=== PATIENT | male | born 1955 | race Caucasian/White ===

== ENCOUNTER 2022-04-20 09:08 | Outpatient (REF) | payer OTHER, SELFPAY ==
--- NOTE | ~2022-04-20 | CT_ITS ---
EXAMINATION: CT CHEST WITH CONTRAST CLINICAL INFORMATION: Abnormal lung findings. COMPARISON: None TECHNIQUE: Multidetector volumetric CT imaging of the chest was obtained after the administration of 65 mL of Omnipaque 350 intravenous contrast without immediate adverse reactions. Axial MIP volume rendering provided. Sagittal and coronal reformatted images were obtained. This CT examination was performed using dose optimization techniques as appropriate, variously including the following: *Automated exposure control *Adjustment of mA and/or kV according to patient size (this includes techniques or standardized protocols for targeted exams where dose is matched to indication/reason for exam; i.e. 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 LUNGS: There is diffuse centrilobular emphysema with linear scarring and/or compressive atelectasis right upper lobe. There is loss of right lung volume There are 2-3 mm scattered calcifications in bilateral upper lobes. A 7 mm partially calcified nodule is seen in the right lower lobe axial image 155/6. MEDIASTINUM: The thyroid lobes are symmetrical and normal. The central trachea and the bronchi are widely patent. The heart size and the great vessels are normal caliber. There is ulcerative plaque in the distal aortic arch. No abnormal size mediastinal or hilar lymph nodes seen. Moderate coronary artery calcifications are visualized. There is no pericardial effusion. PLEURA: Mild right apical and right lower lung pleural thickening is visualized. No evidence of effusion. AXILLA: No abnormal size axillary lymph nodes seen either. UPPER ABDOMEN: The liver is diffusely hypoattenuated. No focal lesion or intrahepatic ductal dilatation seen. There are no radiopaque gallstones. The spleen is unremarkable. OSSEOUS STRUCTURES: No aggressive lytic or sclerotic process seen. There are median sternotomy sutures and mediastinal david. CT/CT chest w IV con IMPRESSION: Centrilobular emphysematous changes of both lungs with chronic right apical parenchymal scarring and/or atelectasis with right apical pleural thickening. Partially calcified 7 mm nodule in right lower lobe. Fleischner guidelines were followed.
[2022-04-20] MEDS: iohexoL 350 MG/ML 100 ML INFUS..BTL 65 ML IV (12:09)
[2022-04-21 11:26] LABS: Creatinine POC 0.5 mg/dL (0.5-1.4)
== END 2022-04-20 09:09 | disposition home or self-care (01) ==
LOC: HO.CT 09:08
PROVIDERS: Visit Provider Nurse Practitioner Family
DX: R91.8 Other nonspecific abnormal finding of lung field (principal)
CPT/HCPCS: 71260; 82565; Q9967

== ENCOUNTER → 2022-05-17 14:12 | Outpatient (BNVA) | payer OTHER, SELFPAY | PROVIDERS: PCP Nurse Practitioner Family; Visit Provider Internal Medicine Pulmonary Disease | DX: J44.9 Chronic obstructive pulmonary disease, unspecified (principal); R91.1 Solitary pulmonary nodule; Z79.899 Other long term (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 | CPT/HCPCS: 99202 ==

== ENCOUNTER 2022-12-21 16:13 | Outpatient (AMB) | payer OTHER, SELFPAY ==
[2022-12-21 16:14] VITALS: BP 108/66; PULSE 66; O2SAT 95; BMI 27.5
--- NOTE | 2022-12-21 16:14 | A.OFFPC_ITS ---
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: No Allergies No Known Allergies Allergy (Verified 12/21/22 16:25) Medication List - Last Reconciled 12/21/22 by LAKHWINDER Coker acetaminophen 650 mg (2 x 325 mg) PO Q6H PRN albuterol sulfate 90 mcg/actuation (ProAir HFA) 2 puffs inhalation Q4-6H PRN apixaban (Eliquis) 5 mg PO BID aspirin 81 mg PO DAILY atorvastatin (Lipitor) 40 mg PO QPM carvedilol 3.125 mg PO Q12H folic acid 1 mg PO DAILY furosemide 20 mg PO DAILY ipratropium-albuterol 0.5 mg-3 mg(2.5 mg base)/3 mL 3 mL inhalation Q4-6H PRN 30 days melatonin 5 mg PO BEDTIME PRN montelukast (Singulair) 10 mg PO DAILY multivitamin 1 tab PO DAILY quetiapine 150 mg PO BEDTIME sacubitril-valsartan 24-26 mg (Entresto) 1 tab PO BID spironolactone 25 mg PO DAILY thiamine HCl (vitamin B1) 100 mg PO DAILY umeclidinium-vilanterol 62.5-25 mcg/actuation (Anoro Ellipta) 1 inh inhalation DAILY Tobacco use date assessed: 12/21/22 Fall risk assessment: No Falls in past year Last assessed Fall Risk: 12/21/22 HPI F/U HTN, HLD HPI Details Patient is a 67-year-old male who presents today to follow-up on [facility] discharge.? Medical history significant for hyperlipidemia, hypertension, AFib, COPD, tobacco abuse, heart failure, mood disorder, psychosis, status post CABG x3, insomnia, stenosis of left internal carotid artery, depression, lung nodule seen on imaging study - followed by [facility].?Patient has visiting nurses from [facility].? Today patient is accompanied by his niece Clare - who is a healthcare proxy.? Patient was admitted to [facility] 11/30/2022, and discharged on 12/06/2022. Patient presented to the emergency department for shortness of breath and multiple falls in the last month. He was admitted for COPD exacerbation, heart failure exacerbation, and acute on chronic hyponatremia. Patient comes in with acute hypoxic respiratory failure in the setting of HFrEF exacerbation, COPD exacerbation and olanzapine every day all 3 causing SIADH and resulting hyponatremia. COPD was treated with steroids and DuoNebs. Heart failure exacerbation treated with diuretics. Olanzapine was stopped which contributed to SIADH. Patient was started on Seroquel 150 mg nightly with good effect, may titrate to maximum of around 300 mg nightly. Patient continues on Lasix 20 mg daily. Also suspected to have JOSE CARLOS, patient did have bradycardia to 30s overnight possibly due to JOSE CARLOS, body habitus and neck size consistent with risk for JOSE CARLOS-needs outpatient sleep study. Patient was discharged home on Chantix and nicotine patch, patient reports this medications are working and he needs refill on them. Has not been smoking for the past couple weeks. Has not been drinking alcohol in the last 6 months. Patient also was placed on fluid restriction 1 L daily for now. Family reports that patient did have nurse practitioner from [facility] and a recheck sodium which was 131 which is improving from the hospital. Patient has referral to see Cardiology, will follow-up on this. Patient also followed by [facility] due to his COPD and lung nodule. Today, patient denies shortness of breath or chest pain. Patient was encouraged to complete his blood work. [facility] Medical History Encounter to establish care TIA (transient ischemic attack) Surgical History S/P CABG x 3 Social History Housing: House Patient Tobacco Use Status: Former Tobacco user Quit Date: 12/07/22 Cigarette Packs Per Day: 1 Cigarettes Per Day: 20 Years Smoked: 53 years e-Cigarette/Vaping Use: Never Used service: No Current occupational status: retired Cognitive needs: Yes Hearing needs: No Vision needs: Yes Questionnaire Thrive Questionnaire Date Thrive assessed: 05/20/22 AUDIT C Alcohol Use Questionnaire (AUDIT-C) 1. How often do you have a drink containing alcohol?: 4 or more times a week 2. How many drinks containing alcohol do you have on a typical day when you are drinking?: 1 or 2 (pt states 1 can of beer a day ) 3. How often do you have six or more drinks on one occasion?: Never Total Score: 4 Score Reviewed/Action Taken: No GERMÁN-7 AMB Questionnaire GERMÁN-7 Date GERMÁN - 7 assessed: 05/20/22 Source: Developed by Drs. Yaakov Hogan, Lizz Zelaya, Taran Frederick and colleagues, with an educational ceasar from [employer]. Review of Systems Const Denies body aches, Denies chills, Denies fever(s) and Denies headache(s) Eyes Denies change in vision ENT Denies dizziness, Denies otalgia, Denies headache(s), Denies nasal discharge, Denies sinus pain and Denies sore throat Card Denies chest pain, Denies edema, Denies lightheadedness and Denies dyspnea Resp Denies chest congestion, Denies cough, Denies dyspnea and Denies wheezing GI Denies abdominal pain, Denies constipation, Denies diarrhea, Denies nausea and Denies vomiting Denies difficulty urinating and Denies dysuria Musc Denies myalgias, Denies numbness and Denies tingling Skin/Breast Denies lesions and Denies rash Neuro Denies dizziness, Denies headache(s), Denies numbness and Denies tingling Aller/Immun Denies wheezing Physical exam (Primary Care) Vital Signs: Last Vital Signs Pulse 66 12/21/22 16:14 BP 108/66 12/21/22 16:14 Pulse Ox 95 12/21/22 16:14 Oxygen Delivery Method Room Air 12/21/22 16:14 BMI result Body Mass Index 27.5 Tobacco/Smoking Status: Tobacco use Status Tobacco use date assessed 12/21/22 12/21/22 16:15 Patient Tobacco Use Status Former Tobacco user 12/21/22 16:23 e-Cigarette/Vaping Use Never Used 12/21/22 16:15 Thrive Assessment: Date of Thrive Assessment Date Thrive assessed 05/20/22 12/21/22 16:15 Const General: cooperative and no acute distress Orientation/consciousness: oriented to person and oriented to place HENMT Head: Yes normocephalic and Yes atraumatic Face and sinus: Yes sinuses nontender Mouth: oropharynx normal and moist mucous membranes Throat: Yes posterior oropharynx normal Eyes General: appearance normal, both eyes and all related structures Pupils: Equal, round and reactive pupils present EOM: EOMs intact bilaterally Neck Neck: Yes normal visual inspection, Yes full ROM and Yes no lymphadenopathy Resp Effort & Inspection: normal respiratory effort and able to speak in complete sentences Auscultation: clear to auscultation bilaterally, no crackles, no rales, no rhonchi and no wheezes Cardio Rate: regular rate Rhythm: regular rhythm Heart sounds: S1 normal heart sound present, S2 normal heart sound present and no murmurs GI Auscultation: normal bowel sounds Skin General skin exam: no rashes or lesions noted Neuro General: oriented to person and oriented to place Cranial nerves: Yes Equal, round and reactive pupils present Gait exam (Neuro): Normal gait present Extrem General: Yes full ROM and No edema Assessment and Plan Assessment & Plan (1) S/P CABG x 3: Code(s): Z95.1 - Presence of aortocoronary bypass graft Plan: Will follow-up on cardiology referral, patient was not seen yet (2) Psychosis: Code(s): F29 - Unspecified psychosis not due to a substance or known physiological condition Plan: Stable with Seroquel 150 mg at bedtime (3) Heart failure: Code(s): I50.9 - Heart failure, unspecified Plan: Aspirin 81 mg daily Entresto b.i.d. Lasix 20 mg daily Carvedilol b.i.d. Cardiology referral (4) Tobacco abuse: Comment: 1 ppd since age 13 Code(s): Z72.0 - Tobacco use Plan: Patient stopped smoking couple weeks ago Continue Chantix and nicotine patch (5) COPD (chronic obstructive pulmonary disease): Code(s): J44.9 - Chronic obstructive pulmonary disease, unspecified Plan: Anoro Ellipta 1 inhalation daily Albuterol inhaler every 4-6 hours p.r.n. Continue to follow-up with [facility] Dr. Escalante (6) Hypertension: Code(s): I10 - Essential (primary) hypertension Plan: Entresto b.i.d. Carvedilol b.i.d. Cardiology referral Goal BP equal or less than 140/90 (7) Hyperlipidemia: Code(s): E78.5 - Hyperlipidemia, unspecified Plan: Atorvastatin 40 mg at bedtime Low-cholesterol diet (8) Paroxysmal atrial fibrillation: Code(s): I48.0 - Paroxysmal atrial fibrillation Plan: Continue carvedilol and Eliquis Will follow-up on cardiology referral (9) Hospital discharge follow-up: Code(s): Z09 - Encounter for follow-up examination after completed treatment for conditions other than malignant neoplasm (10) SIADH (syndrome of inappropriate ADH production): Code(s): E22.2 - Syndrome of inappropriate secretion of antidiuretic hormone Plan: Patient was encouraged to complete his blood work - family reports sodium 131 after hospital discharge with [facility] [employer] Olanzapine was stopped 1 L fluid restriction Plan Follow-up in 3 months or sooner as needed Orders: Orders RT home sleep study Today I50.9 - Heart failure, unspecified, J44.9 - Chronic obstructive pulmonary disease, unspecified Medications: New nicotine 1 patch transdermal Q24H 28 ea 2RF Z72.0 - Tobacco use varenicline 1 mg PO DAILY 56 tabs 0RF Z72.0 - Tobacco use Refilled multivitamin 1 tab PO DAILY 90 tabs 0RF F39 - Unspecified mood [affective] disorder atorvastatin (Lipitor) 40 mg PO QPM 90 tabs 1RF I48.0 - Paroxysmal atrial fibrillation thiamine HCl (vitamin B1) 100 mg PO DAILY 90 tabs 0RF F39 - Unspecified mood [affective] disorder Discontinued melatonin Discontinued Reason: Patient no longer taking 5 mg PO BEDTIME PRN 90 tabs 0RF sleep G47.00 - Insomnia, unspecified spironolactone Discontinued Reason: Patient no longer taking 25 mg PO DAILY 30 tabs 0RF Coding Level of Care Code Est Pt Level 4 (28455) Diagnoses S/P CABG x 3 Z95.1 Psychosis F29 Heart failure I50.9 Tobacco abuse Z72.0 COPD (chronic obstructive pulmonary disease) J44.9 Hypertension I10 Hyperlipidemia E78.5 Paroxysmal atrial fibrillation I48.0 Hospital discharge follow-up Z09 SIADH (syndrome of inappropriate ADH production) E22.2
== END 2022-12-21 16:53 | disposition home or self-care (01) ==
PROVIDERS: Visit Provider Nurse Practitioner Family
DX: I11.0 Hypertensive heart disease with heart failure (principal); I50.9 Heart failure, unspecified; Z95.1 Presence of aortocoronary bypass graft; F29 Unspecified psychosis not due to a substance or known physiological condition; J44.9 Chronic obstructive pulmonary disease, unspecified; Z72.0 Tobacco use; E78.5 Hyperlipidemia, unspecified; I48.0 Paroxysmal atrial fibrillation; Z09 Encounter for follow-up examination after completed treatment for conditions other than malignant neoplasm; E22.2 Syndrome of inappropriate secretion of antidiuretic hormone
CPT/HCPCS: 99214

== ENCOUNTER 2023-02-02 19:32 | Inpatient (IN) | payer OTHER, SELFPAY ==
--- OUTSIDE RECORDS SUMMARY | 2023-02-02 19:38 | XMS_ITS | Continuity of Care Document ---
Author Name Unknown Organization [facility] ter Address [address] [place] [id number] Care Team Providers Care Fell Cutter Name Role Phone Not on Staff, PCP Primary Care Physician Unavail able Encounter [facility] Date(s): 10/08/22 - 10/11/[address] [id number]- Encounter Diagnosis COPD exacerbation(Final) - 10/08/22 Discharge Disposition: A-Transfer VNA/Home Health Attending Physician: Ольга English MD Admitting Physician: Serafin Garner MD Referring Physician: Not on Staff, Referring MD Allergies, Adverse Reactions, Alerts No Known Allergies Immunizations Given and Recorded Vaccine Date Status Refusal Reason tetanus/diphtheria/pertussis, acel(Tdap) 05/20/22 Recorded tetanus/diphtheria/pertussis, acel(Tdap) 10/17/19 Recorded tetanus/diphtheria/pertussis, acel(Tdap) 01/01/09 Recorded SARS-CoV-2 (COVID-19) mRNA BNT-162b2 vac 08/04/20 Recorded SARS-CoV-2 (COVID-19) mRNA BNT-162b2 vac 07/14/20 Recorded Not Given Vaccine Date Status Refusal Reason influenza virus vaccine, inactivated 07/18/20 Not Given Patient Refuses Medications albuterol-ipratropium 3 mg-0.5 mg/3 ml inhalation solution 3 mL, Inhalation, 4 times a day, # 360 mL, 0 Refills, Maintenance, 10/11/22 12:00:00 EDT, Inhalation Solution, [facility], Partial fill upon patient request if the prescription is for aschedule II opioid drug., 3 mL Inhalation 4 times a... Start Date: 10/11/22 Status: Ordered Anoro Ellipta 62.5 mcg-25 mcg/inh inhalation powder INHALE 1 PUFF DAILY Start Date: 06/20/22 Status: Ordered aspirin 81 mg oral tablet, chewable 81 mg, 1, tablet, By Mouth, Daily, # 30 tablet, Refills 3, Tot. Refills 3, Maintenance, 11/30/20 12:43:00 EDT, Route to Pharmacy Electronically, [facility], Partial fill upon patient request if the prescription is for a schedule II opioi... Start Date: 11/30/20 Status: Ordered atorvastatin 40 mg oral tablet 1 tablet = 40 mg, By Mouth, Daily, # 90 tablet, 0 Refills, Maintenance, 06/20/22 13:57:00 EST, Tablet, Partial fill upon patient request if the prescription is for a schedule II opioid drug. Start Date: 06/20/22 Status: Ordered Coreg 3.125 mg oral tablet 3.125 mg, Tablet, By Mouth, Hold for: SBP < 100 HR < 50, 10/11/22 9:00:00 EDT Start Date: 10/11/22 Stop Date: 10/11/22 Status: Completed Coreg 3.125 mg oral tablet 3.125 mg, 1, tablet, By Mouth, 2 times a day, # 60 tablet, Refills 2, Tot. Refills 2, Maintenance, 12/01/20 15:01:00 EDT, Route to Pharmacy Electronically, [facility], Partial fill uponpatient request if the prescription is for a schedu... Start Date: 12/01/20 Status: Ordered Daily Jayson oral tablet TAKE 1 TABLET BY MOUTH EVERY DAY Start Date: 06/20/22 Status: Ordered doxycycline monohydrate 100 mg oral tablet = 100 mg, By Mouth, Every 12 hours, for 2 days, # 4 tablet, 0 Refills, Acute 10/13/22 12:01:00 EDT,10/11/22 12:01:00 EDT, Tablet, [facility], Partial fill upon patient request if the prescription is for a schedule II opioid drug., 180.3... Start Date: 10/11/22 Stop Date: 10/13/22 Status: Ordered Eliquis 5 mg oral tablet TAKE 1 TABLET BY MOUTH 2 TIMES DAILY. Start Date: 06/20/22 Status: Ordered Entresto 24 mg-26 mg oral tablet 1 tablet, By Mouth, 2 times a day, # 60 tablet, 0 Refills, Maintenance, 06/20/22 13:59:00 EST, Tablet, Partial fill upon patient request if the prescription is for a schedule II opioid drug. Start Date: 06/20/22 Status: Ordered furosemide 20 mg oral tablet 20 mg, 1, tablet, By Mouth, Daily, # 90 tablet, Refills 0, Tot. Refills 0, Maintenance, 07/25/22 9:42:00 EDT, Do Not Route, Partial fill upon patient request if the prescription is for a schedule II opioid drug. Start Date: 07/25/22 Status: Ordered naloxone 4 mg/0.1 mL nasal spray = 4 mg, Nares, Both, Once, # 2 each, 2 Refills, Soft Stop, 11/06/18 21:59:38 EDT Start Date: 11/06/18 Status: Ordered olanzapine 20 mg oral tablet 1 tablet = 20 mg, By Mouth, Daily, # 30 tablet, 0 Refills, Maintenance, 11/12/20 13:22:00 EDT, Tablet, Partial fill upon patient request if the prescription is for a schedule II opioid drug. Start Date: 11/12/20 Status: Ordered pantoprazole 40 mg oral delayed release tablet 1 tablet = 40 mg, By Mouth, Daily, # 30 tablet, 0 Refills, Maintenance, 07/09/22 11:27:00 EDT, EC Tablet, 180, cm, 07/09/22 8:03:00 EDT, Height, 78.2, kg, 06/20/22 14:31:00 EST, Dry Weight Start Date: 07/09/22 Status: Ordered predniSONE 20 mg oral tablet = 40 mg, By Mouth, Daily, for 2 days, # 4 each, 0 Refills, Acute 10/13/22 12:01:00 EDT, 10/11/22 12:01:00 EDT, Tablet, [facility], Partial fill upon patient request if the prescription is for a schedule II opioid drug., 180.3, cm, ... Start Date: 10/11/22 Stop Date: 10/13/22 Status: Ordered ure-Na 15 g oral powder for reconstitution = 30 Gm, By Mouth, Daily, # 500 Gm, 0 Refills, Maintenance, 07/25/22 9:40:00 EDT, Partial fill uponpatient request if the prescription is for a schedule II opioid drug. Start Date: 07/25/22 Status: Ordered Ventolin HFA 108 mcg/inh inhalation aerosol with adapter 1 puffs, Inhalation, 4 times a day, PRN for wheezing, # 18 Gm, 0 Refills, Maintenance, 06/20/22 13:59:00 EST, Aerosol, Partial fill upon patient request if the prescription is for a schedule II opioid drug. Start Date: 06/20/22 Status: Ordered Vitamin B1 100 mg oral tablet 100 mg, 1, tablet, By Mouth, Daily, # 10 tablet, Refills 0, Maintenance, 06/20/22 14:00:00 EST, Partial fill upon patient request if the prescription is for a schedule II opioid drug. Start Date: 06/20/22 Stop Date: 06/30/22 Status: Ordered Walker; Dx Heart failure with reduced ejection fraction I50. 22 Walker; Dx Heart failure with reduced ejection fraction I50. 22, See Instructions, # 1 each, Refills 0, Tot. Refills 0, Maintenance, Walker; Dx Heart failure with reduced ejection fraction I50. 22, 07/25/22 12:15:00 EDT, Supply Start Date: 07/25/22 Status: Ordered Problem List Condition Confirmation Course Effective Dates Status H ealth Status Informant CAD (coronary artery disease) 1 Confirmed Active Hyperlipidemia Confirmed Active HTN (hypertension) Confirmed Active Mood disorder Confirmed Active Polysubstance abuse Confirmed Active COPD with emphysema Confirmed Active Tobacco use Confirmed Active 1s/p CABG Results Radiology Reports * Exam Date Time Procedure Performing Provider Status 10/08/22 1:13 PM Chest Portable Devyn Snow (Verified) Notes: (Chest Portable) Reason For Exam: COPD RESULT: Chest Portable Chest Portable Hx of Present Illness: SOB; Reason: COPD; Clinical Question(s): Pneumonia COMPARISON: 07/13/2022. FINDINGS: LINES AND TUBES: None. LUNGS AND PLEURA: Ill-defined interstitial infiltrates remain in the mid to lower right lung, with less alveolar opacity than seen on 07/13/2022. Minimal right lateral costophrenic angle blunting remains consistent with small pleural effusion. The left lung reveals slightly increased interstitial markings at the base without consolidation. Upper left lung clear. Upper lung lucency remains. No left pleural effusion. No pneumothorax. HEART, MEDIASTINUM AND ADELE: Heart is normal in size. Anterior chest surgery. Mild aortic tortuosity and calcification. Normal mediastinal and hilar contour. BONES AND SOFT TISSUES: No acute abnormality. Median sternotomy image: 2 of the upper wires are broken as before.. IMPRESSION: Mild to moderate interstitial opacity in the mid to lower right lung, moderately improved from prior but has not fully cleared. Recommend short-term follow-up to assess for complete clearing. Emphysema. WSN: [id number] Ordering Physician: Richard Arellano Dictated By: Jere Kumar MD Dictated Date/Time: 10/08/22 1:35 pm Reviewed By: Jere Kumar MD Signed By: Jere Kumar MD Signed Date/Time: 10/08/22 1:35 pm Transcribed By: GRANT Transcribed Date/Time: 10/08/22 1:32 pm Vital Signs Most recent to oldest [Reference Range]: 1 2 3 Height 180.3 cm (10/11/22 9:02 AM) 180.3 cm (10/11/22 7:47 AM) 180.3 cm (10/11/22 4:07 AM) Weight 82.0 kg (10/09/22 1:16 AM) Oxygen Saturation [94-100 %] 98 % (10/11/22 9:02 AM) 100 % (10/11/22 7:47 AM) 98 % (10/11/22 4:07 AM) Pulse Rate [55-90 bpm] 102 bpm *H* (10/11/22 9:12 AM) 102 bpm *H* (10/11/22 9:02 AM) 72 bpm (10/11/22 7:47 AM) Body Mass Index [18.5-24.99 kg/m2] 25.22 kg/m2 *H* (10/09/22 1:16 AM) Blood Pressure [90-138/55-84 mm Hg] 136/83mm Hg (10/11/22 9:12 AM) 136/83mm Hg (10/11/22 9:02 AM) 103/62mm Hg (10/11/22 7:47 AM) Respiratory Rate [16-30 br/min] 18 br/min (10/11/22 9:02 AM) 22 br/min (10/11/22 7:47 AM) 18 br/min (10/11/22 4:07 AM) Temperature [96.8-100.4 DegF] 97.5 DegF (10/11/22 9:02 AM) 97.8 DegF (10/11/22 7:47 AM) 97.6 DegF (10/11/22 4:07 AM) Liters per Minute 2 L/min (10/11/22 7:47 AM) 2 L/min (10/11/22 4:07 AM) 2 L/min (10/11/22 12:08 AM) Mode of Delivery (Oxygen) Room air (10/11/22 9:02 AM) Nasal cannula (10/11/22 7:47 AM) Nasal cannula (10/11/22 4:07 AM) Blood pressure sites Arm, left (10/11/22 9:02 AM) Arm, left (10/11/22 7:47 AM) Arm, right (10/11/22 4:07 AM) Temperature Route Oral (10/11/22 9:02 AM) Oral (10/11/22 7:47 AM) Oral (10/11/22 4:07 AM) Dry Weight 82 kg (10/09/22 1:16 AM) Social History Social History Type Response Smoking Status 10 or more cigarette s (1/2 pack or more)/day in last 30 days entered on: 11/28/20 Sex History and physical note * Devan ZARCO, Jabier: PERFORM Event Display: History and Physical Hospital Authored Date: Patient: ??BEBO MIKHAIL ? Age:??67 Years?Sex:??Male?:??1955?? Chief Complaint/Reason for Consultation pt presenting to the ED with shortness of breath worsening over a week. RA 86%, on neb in 90s. History of Present Illness Patient is a??67-year-old male with history of coronary artery disease status post??CABG in 2006, history of paroxysmal atrial fibrillation/flutter on anticoagulation with Eliquis, ischemic??cardiomyopathy with an EF of 30 to 35%, history of COPD not on home O2,??chronic hyponatremia, schizophrenia??with history of alcohol and substance abuse disorder in the past??presenting to the ED with shortness of breath??that has been ongoing for the last 1 week??and worse over the last few days.?? On arrival he was hypoxemic??and??saturating 86 to 87% on room air and placed on supplemental oxygen??withimprovement in??saturations to above 92.?? He received Solu-Medrol and DuoNeb??via EMS.?? Bedside ultrasound revealed no currently be??lines, IVC is collapsible, he received 500 mL of IV??fluid bolus??and received Combivent.?? His BNP is slightly elevated, white cell count is within normal limits hemoglobin 13.9 with hematocrit of 40.1.?? Electrolytes??revealed sodium of 133??potassium of 4.2 and bicarb of 29??and chloride of 93.?? BUN and creatinine are within normal limits. ??Patient's chest x-ray revealed moderate??interstitial opacity in the right but??lower lung??which is??noted to be improved from prior.?? He is being admitted for management of COPD exacerbation??and acute hypoxemic respiratory failure. ??His COVID-19 PCR is negative.?? He received empiric antibiotics in the ED. Review of Systems A 10 point review of systems was done and is positive for shortness of breath,??cough without sputum production,??negative for fevers, chills, nausea, vomiting, diarrhea, abdominal pain, hematemesis,hemoptysis, melena, dysuria or hematuria. ??No new numbness or weakness. ??No palpitations or syncopal episodes. ??No double vision or blurry vision. Objective Vital Signs?? Temperature: 98.4 DegF (10/08/22 12:08:00) Temperature Route: Oral (10/08/22 12:08:00) Pulse Rate: 89 bpm (10/08/22 21:02:00) Respiratory Rate: 24 br/min (10/08/22 21:02:00) Systolic Blood Pressure: 122 mm Hg (10/08/22 21:02:00) Diastolic Blood Pressure: 82 mm Hg (10/08/22 21:02:00) Blood pressure sites: Arm, left (10/08/22 21:02:00) Mean Arterial Pressure: 91 mm Hg (10/08/22 17:51:00) Pulse Pressure: 40 mm Hg (10/08/22 21:02:00) Oxygen Saturation: 98 % (10/08/22 21:02:00) Liters per Minute: 3 L/min (10/08/22 21:02:00) Mode of Delivery (Oxygen): Nasal cannula (10/08/22 21:02:00) Early Warning Score: 3 (10/08/22 21:07:36) ? Physical Exam Constitutional:??Ill-appearing male in no acute distress Mental Status: Oriented to person, place and time. Head: Normocephalic. Eyes: Pupils are equal, round and reactive to light. Extraocular muscles intact. Ear, Nose and Throat: Oropharynx clear, mucous membranes moist. Ears and nose without masses, lesions or deformities. Trachea midline. Neck: Supple, Full range of motion. Respiratory: Decreased breath sounds bilaterally with prolonged expiratory phase and wheezing. Cardiovascular: S1 S2 regular. No murmurs, rubs or gallops. Gastrointestinal: Abdomen soft, non-tender, non-distended. Normal bowel sounds. No pulsatile mass. No hepatosplenomegaly. Genitourinary: No costovertebral angle tenderness. Neurologic: Cranial nerves II-XII grossly intact. No focal neurological deficits. Flexor plantar response. Moves all extremities spontaneously. Sensation intact bilaterally. Skin: No rashes or lesions. No petechiae or purpura.?? Musculoskeletal: No cyanosis or clubbing. No gross deformities. Normal range of motion. Psychiatric: Slightly anxious??affect Assessment/Plan Diagnoses 1. ??Acute hypoxemic respiratory failure ??(J96.01) 2. ??COPD exacerbation ??(J44.1) 3. ??Mood disorder ??(F39) 4. ??Tobacco use ??(Z72.0) 5. ??CAD (coronary artery disease) ??(I25.10) ?? Assessment:??67-year-old male with history of coronary artery disease, history of prior CABG, history of ischemic cardiomyopathy with a known EF of 30 to??35%, history of COPD not on home O2, historyof??mood disorder??and chronic febrile neutropenia??with history of prior alcohol??and substance abuse??admitted for management of acute hypoxemic respiratory failure secondary to COPD exacerbation ?? Acute hypoxemic respiratory failure (J96.01):??Continue bronchodilators and management of COPD withsteroids,??Brovana, budesonide.??Wean O2 as tolerated ?? COPD exacerbation (J44.1):??Patient's??chest x-ray revealed infiltrate but??improved from prior suggestive of old infiltrate, he has no??fevers, normal white cell count, continue doxycycline for COPDexacerbation continue Solu- Medrol,??continue bronchodilators, wean O2 as tolerated. He is not??oxygen dependent at baseline ?? Mood disorder (F39):??Continue olanzapine ?? Tobacco use (Z72.0):??Counseled on tobacco use and recommended quitting, nicotine replacement therapy has been ordered ?? CAD (coronary artery disease) (I25.10):??Known history of coronary artery disease with ischemic cardiomyopathy, denies any chest pain,??continue Coreg,??aspirin??and statin.??He is also on Entresto.??Volume status is fair.??He has history of atrial fibrillation and is on anticoagulation with Eliquis ?? VTE Prophylaxis:??Anticoagulated ?VTE Prophylaxis Assessment:??VTE Prophylaxis Ordered ?? Code Status:??DNR ?Order Code Status:??Code Status Ordered ?? Ongoing Medical Necessity:??COPD exacerbation and??acute hypoxemic respiratory failure ?? Discharge Planning:??TBD based on clinical progress ?Plan of care discussed with patient and answered all questions ? Primary Contact: ?PAZ LU?Relation to Pt: Other?Cell ? Histories Allergies Allergies ?(Active and Proposed Allergies Only) NKA? (Severity: Unknown severity, Onset: Unknown) ? Past Medical History/Problem List Active Problems??(8) CAD (coronary artery disease) COPD with emphysema HTN (hypertension) Hyperlipidemia Mood disorder Polysubstance abuse Tobacco use Underweight ? Past Surgical History No surgery history documented. ? Social History Alcohol Details:??Use: Current. ??Frequency: Daily. Substance Abuse Details:??Use: Current. ??Type: Cocaine, Heroin. Tobacco Details:??Use: 10 or more cigarettes (1/2 pack or more)/day in last 30 days. ? Psychosocial History ? Family History No family history recorded. ? Travel History Travel Outside [facility]: No ?? Medications Home Medications Albuterol (Ventolin HFA 108 mcg/inh inhalation aerosol with adapter)?1?puff(s)?Inhalation?4 times a day?as needed?for wheezing Albuterol/Ipratropium (albuterol-ipratropium 3 mg-0.5 mg/3 ml inhalation solution)?3?Milliliter?Inhalation?4 times a day apixaban (Eliquis 5 mg oral tablet)?TAKE 1 TABLET BY MOUTH 2 TIMES DAILY. Aspirin (aspirin 81 mg oral tablet, chewable)?81?Milligram?1?tablet?By Mouth?Daily Atorvastatin (atorvastatin 40 mg oral tablet)?1?tab(s)?40?Milligram?By Mouth?Daily Carvedilol (Coreg 3.125 mg oral tablet)?3.125?Milligram?1?tablet?By Mouth?2 timesa day Durable Medical Equipment (Walker; Dx Heart failure with reduced ejection fraction I50. 22)?See Instructions?Walker; Dx Heart failure with reduced ejection fraction I50. 22 Furosemide (furosemide 20 mg oral tablet)?20?Milligram?1?tablet?By Mouth?Daily Multivitamin (Daily Jayson oral tablet)?TAKE 1 TABLET BY MOUTH EVERY DAY Naloxone (naloxone 4 mg/0.1 mL nasal spray)?4?Milligram?Nares, Both?Once Olanzapine (olanzapine 20 mg oral tablet)?1?tab(s)?20?Milligram?By Mouth?Daily Pantoprazole (pantoprazole 40 mg oral delayed release tablet)?1?tab(s)?40?Milligram?By Mouth?Daily sacubitril-valsartan (Entresto 24 mg-26 mg oral tablet)?1?tab(s)?By Mouth?2 times a day Thiamine (Vitamin B1 100 mg oral tablet)?100?Milligram?1?tablet?By Mouth?Daily?for 10?Days umeclidinium-vilanterol (Anoro Ellipta 62.5 mcg-25 mcg/inh inhalation powder)?INHALE 1 PUFF DAILY urea powder (ure-Na 15 g oral powder for reconstitution)?30?gram?By Mouth?Daily ? Inpatient Medications Medications (25) Active SCHEDULED: (18) Albuterol/Ipratropium Inhalation Parul 3mL (Duoneb Inhalation Solution) ??1 vials, BAND Nebulizer, 4 times a day Apixaban 5 mg Tablet (apixaban 5 mg oral tablet) ??5 mg, By Mouth, 2 times a day Arformoterol 15 mcg/2mL Inh Parul (Brovana 15mcg/2mL Inhalation Solution) ??15 mcg 2 mL, BAND Nebulizer, 2 times a day Aspirin 81 mg Chew Tablet (aspirin 81 mg oral tablet, chewable) ??81 mg, By Mouth, Daily Atorvastatin 40 mg Tablet (atorvastatin 40 mg oral tablet) ??40 mg, By Mouth, Daily Budesonide 0.5 mg/ 2 mL Inhalation Susp (budesonide 0.5 mg/2 mL inhalation suspension) ??0.5 mg 2 mL, BAND Nebulizer, 2 times a day Carvedilol 3.125 mg Tablet (Coreg 3.125 mg oral tablet) ??3.125 mg, By Mouth, 2 times a day Doxycycline 100 mg Tablet (Doxycycline Tablet) ??100 mg, By Mouth, Every 12 hours Furosemide 20 mg Tablet (furosemide 20 mg oral tablet) ??20 mg, By Mouth, Daily MethylPREDNISolone Sodium Succinate 40 mg Inj (SoluMedrol Inj) ??40 mg, IV Push Slowly, 2 times a day Multivitamin Tablet ??1 tablet, By Mouth, Daily NaCl 0.9% Flush 3ml (NaCL 0.9% Flush) ??3 mL, IV Push, Every 8 hours Nicotine 14 mg / 24 hour Patch (Nicotine Topical) ??14 mg, Topically, Daily Olanzapine 10mg Tablet (olanzapine 10 mg oral tablet) ??20 mg, By Mouth, Daily Pantoprazole 40 mg EC Tablet (pantoprazole 40 mg oral delayed release tablet) ??40 mg, By Mouth, Daily Remove Patch (Remove ??Patch) ??1 each, Topically, Daily Sacubitril-Valsartan 24 mg-26 mg Tablet (Entresto 24 mg-26 mg oral tablet) ??1 tablet, By Mouth, 2 times a day Thiamine 100 mg Tablet (Vitamin B1 100 mg oral tablet) ??100 mg, By Mouth, Daily CONTINUOUS: (0) PRN: (7) Acetaminophen 325 mg Tablet (Acetaminophen Tablet) ??650 mg, By Mouth, Every 4 hours Dextromethorphan-Guaifenesin 20 mg-200 mg/10 mL Liqu UD (Robitussin DM Liquid) ??10 mL, By Mouth, Every 4 hours Melatonin 3 mg Tablet (Melatonin Tablet) ??3 mg, By Mouth, Daily at bedtime NaCl 0.9% Flush 3ml (NaCL 0.9% Flush) ??3 mL, IV Push, Every 8 hours Polyethylene Glycol 17 Gm Powder (MiraLax Powder) ??17 Gm 1 pack/packet, By Mouth, Daily Senna 8.6 mg / Docusate 50 mg tablet (Docusate/Senna Tablet) ??1 tablet, By Mouth, 2 times a day Simethicone 80 mg Chewable Tablet (Simethicone Tablet) ??80 mg, Chew, 3 times a day ? Results Recent Labs BLOOD COUNT & DIFF WBC 9.0 k/mm3 ()?? 10/08/2022 12:13 RBC 4.14 m/mm3 (Low)?? 10/08/2022 12:13 Hgb 13.9 Gm/dL ()?? 10/08/2022 12:13 Hct 40.1 % (Low)?? 10/08/2022 12:13 MCV 96.9 femtoliters (High)?? 10/08/2022 12:13 MCH 33.6 pg ()?? 10/08/2022 12:13 MCHC 34.7 g/dL ()?? 10/08/2022 12:13 Platelet Count 228 k/mm3 ()?? 10/08/2022 12:13 RDW-SD 49.7 femtoliters (High)?? 10/08/2022 12:13 MPV 9.4 femtoliters ()?? 10/08/2022 12:13 Nucleated RBC (Automated) 0.0 #/100 WBC'S ()?? 10/08/2022 12:13 Abs. NRBC 0.0 k/mm3 ()?? 10/08/2022 12:13 Abs. Neut 5.3 k/mm3 ()?? 10/08/2022 12:13 Abs. Lymph 2.3 k/mm3 ()?? 10/08/2022 12:13 Abs. [place] 0.8 k/mm3 ()?? 10/08/2022 12:13 Abs. Eo 0.5 k/mm3 (High)?? 10/08/2022 12:13 Abs. Baso 0.1 k/mm3 ()?? 10/08/2022 12:13 Neut % 59.1 % ()?? 10/08/2022 12:13 Lymph % 25.9 % ()?? 10/08/2022 12:13 [place] % 8.5 % ()?? 10/08/2022 12:13 Eos % 5.5 % ()?? 10/08/2022 12:13 Baso % 0.7 % ()?? 10/08/2022 12:13 Imm Gran 0.3 % ()?? 10/08/2022 12:13 Abs. Imm Gran 0.0 k/mm3 ()?? 10/08/2022 12:13 ?? CARDIAC Nt-Probnp 778 pg/mL (High)?? 10/08/2022 12:13 High Sensitivity Troponin (HSTnT) 12 ng/L ()?? 10/08/2022 12:13 ?? CHEM GENERAL Sodium 133 mmol/L ()?? 10/08/2022 12:13 Potassium 4.2 mmol/L ()?? 10/08/2022 12:13 Chloride 93 mmol/L (Low)?? 10/08/2022 12:13 Bicarbonate Level 29 mmol/L ()?? 10/08/2022 12:13 Anion Gap 11 ()?? 10/08/2022 12:13 Glucose Level 136 mg/dL (High)?? 10/08/2022 12:13 BUN 10 mg/dL ()?? 10/08/2022 12:13 Creatinine-Blood 0.6 mg/dL (Low)?? 10/08/2022 12:13 Estimated GFR Creatinine 106 ML/MIN/1.73 M2 ()?? 10/08/2022 12:13 Calcium 9.5 mg/dL ()?? 10/08/2022 12:13 ?? HEME OTHER Hold Blue Top SPECIMEN DISCARDED AFTER 4 HOURS. ()?? 10/08/2022 12:13 ?? MISC. CHEMISTRY Hold Green Top SPECIMEN DISCARDED AFTER 1 WEEK ()?? 10/08/2022 12:13 ?? VIROLOGY COVID-19 by RT-PCR NEGATIVE ()?? 10/08/2022 12:25 ? Abnormal Labs ?? BLOOD COUNT & DIFF ??Abs. Eo ??0.5 k/mm3 (High) ??10/08/2022 12:13 ??Abs. Imm Gran ??0.0 k/mm3 () ??10/08/2022 12:13 ??Abs. NRBC ??0.0 k/mm3 () ??10/08/2022 12:13 ??Hct ??40.1 % (Low) ??10/08/2022 12:13 ??Imm Gran ??0.3 % () ??10/08/2022 12:13 ??MCV ??96.9 femtoliters (High) ??10/08/2022 12:13 ??Nucleated RBC (Automated) ??0.0 #/100 WBC'S () ??10/08/2022 12:13 ??RBC ??4.14 m/mm3 (Low) ??10/08/2022 12:13 ??RDW-SD ??49.7 femtoliters (High) ??10/08/2022 12:13 ? CARDIAC ??High Sensitivity Troponin (HSTnT) ??12 ng/L () ??10/08/2022 12:13 ??Nt-Probnp ??778 pg/mL (High) ??10/08/2022 12:13 ? CHEM GENERAL ??Chloride ??93 mmol/L (Low) ??10/08/2022 12:13 ??Creatinine-Blood ??0.6 mg/dL (Low) ??10/08/2022 12:13 ??Estimated GFR Creatinine ??106 ML/MIN/1.73 M2 () ??10/08/2022 12:13 ??Glucose Level ??136 mg/dL (High) ??10/08/2022 12:13 ? HEME OTHER ??Hold Blue Top ??SPECIMEN DISCARDED AFTER 4 HOURS. () ??10/08/2022 12:13 ? MISC. CHEMISTRY ??Hold Green Top ??SPECIMEN DISCARDED AFTER 1 WEEK () ??10/08/2022 12:13 ? VIROLOGY ??COVID-19 by RT-PCR ??NEGATIVE () ??10/08/2022 12:25 ? Note: Critical results are displayed in red. ? Urinalysis?? No qualifying data available. ?? Microbiology ?? COVID-19 (Novel Coronavirus), Rapid PCR?? Completed?? Source: Nasal Body Site: Nose Collected Dt/Tm: 10/08/2022 12:24 Last Updated Dt/Tm: 10/08/2022 14:18 ?QTC Calculation([place]ett): 481 ??ms P [place]: 80 ??degrees R [place]: 69 ??degrees T [place]: 46 ??degrees Atrial flutter Non-specific intra-ventricular conduction delay Nonspecific ST abnormality Abnormal ECG When compared with ECG of 14-JUL-2022 04:49, Vent. rate has increased BY ??40 BPM QT has lengthened [1] (10/08/2022 13:13 EDT Chest Portable) IMPRESSION:?? Mild to moderate interstitial opacity in the mid to lower right lung, moderately improved from prior but has not fully cleared. Recommend short-term follow-up to assess for complete clearing. Emphysema. [2] [1]??12 Lead ECG; Valencia Drummond DO 10/08/2022 12:33 EDT [2]??Chest Portable; Jere Kumar MD 10/08/2022 13:13 EDT EKG study * Event Display: EKG Authored Date: * Event Display: ECG 12-Lead Authored Date: Please click on pdf link to open report * Event Display: ECG 12-Lead Authored Date: Ventricular Rate: 88 BPM Atrial Rate: 88 BPM P-R Interval: 192 ms QRS Duration: 120 ms Q-T Interval: 398 ms QTC Calculation(Bazett): 481 ms P [place]: 80 degrees R [place]: 69 degrees T [place]: 46 degrees Atrial flutter Non-specific intra-ventricular conduction delay Nonspecific ST abnormality Abnormal ECG When compared with ECG of 14-JUL-2022 04:49, Vent. rate has increased BY 40 BPM QT has lengthened Confirmed by VALENCIA DRUMMOND MD ([id number]) on 10/08/2022 3:06:21 PM [place]: [facility]ILY [facility] Progress note * Janene Street RN: PERFORM, SIGN, VERIFY Event Display: [facility] Authored Date: Patient: MIKHAIL LAGUNAS Age: 67 years Sex: Male : 1955 Associated Diagnoses: None Author: Janene Street RN Findings Evaluation patient transferred to D/C unit around 855am.report called.. Discharge Information Case Management Discharge Plan : Case Management Discharge Plan Data 10/11/2022 9:57 EDT Discharge Level of Care at Discharge Homehealth/VNA Discharge VNA/Hospice/Home Care [facility] Service Categories #1 Alf Service Comments #1 The nurse will resume svcs, please call the agency with questions * Janene Street RN: PERFORM, SIGN, VERIFY Event Display: [facility] Authored Date: Patient: MIKHAIL LAGUNAS Age: 67 years Sex: Male : 1955 Associated Diagnoses: None Author: Janene Street RN Findings Problem Related to Alteration in Respiratory Function (new) : Alteration in Respiratory Function/new 10/10/2022 17:00 EDT Alteration in Resp Status Related to COPD Goals & Outcomes, Respiratory Pt will maintain/resume baseline physical assessment, Pt will notdevelop complications r/t mechanical ventilation, Pt will maintain adequate nutritional intake, Pt will maintain/resume normal fluid/electrolyte balance, Pt will not develop complications r/t immobility, Pt will demonstrate proper technique w/self care procedures Interventions, Respiratory Assess for and report S&S of respiratory distress, Position for comfort & optimal oxygenation, Teach the proper use of inhalers, Teach Pt/caregiver Smoking cessation education BH Goals/Interventions, Respiratory Yes Respiratory, Problem Start 10/09/2022 1:00 Reviewed Plan with, Respiratory Patient Patient Progression, Respiratory Patient progressing according to plan . Evaluation patient alert and verbal.meds and meals tolerated well.denies any pain or discomfort.nebulizer given as ordered.BP low.md aware.call powell in reach,safety maintained.will continue to monitor.. * Laura Willson: MODIFY, PERFORM Event Display: [facility] Authored Date: Patient: ??MIKHAIL LAGUNAS ? Age:??67 Years?Sex:??Male?:??1955?? Subjective Seen at bedside this morning Less wheezing, breathing easier,,??starting to feel like he is turning the corner??for the better Still short of breath with exertion No new complaints Review of Systems A full review of systems was completed and is otherwise negative except as mentioned in history of present illness. Objective ?? Physical Exam Temperature?97.5 ?(07:54) Systolic Blood Pressure?97 ?(07:54) Diastolic Blood Pressure?61 ?(07:54) Pulse?80 ?(07:54) SpO2?99 ?(07:54) Respiratory Rate?20 ?(07:54) ?? General: Alert, NAD. HEENT: Normocephalic. Respiratory: Diminished at bases, expiratory wheezes. Cardiovascular: RRR. No murmurs, rubs or gallops. Gastrointestinal: Abdomen soft, non-tender, non-distended. + bowel sounds. Neurologic: Moves all extremities spontaneously. Skin: No rashes or lesions. Extremities: No cyanosis or clubbing. No gross deformities. Normal range of motion. 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 ?? Acute hypoxemic respiratory failure (J96.01) COPD exacerbation (J44.1) Tobacco use (Z72.0) p/w: SOB, sputum production with purulence. ??Current tobacco use Home Regimen: Albuterol rescue, Anoro Ellipta, DuoNeb PRN O2 requirement:??1.5L??(no home O2 need) ?- prednisone 40 mg x 5 D, doxycycline??[day 3] ? -??pulm SHARON conley ?- duoneb QID scheduled, albuterol MDI Q2 PRN ?- titrate O2 needs to O2 sat 88-92% ?? CAD (coronary artery disease) (I25.10) HFrEF Ischemic cardiomyopathy Atrial fibrillation denies any chest pain Continue Coreg, aspirin, statin, Entresto, Eliquis ?? Mood disorder (F39):??Continue olanzapine ? CXR does reveal infiltrate but improved from prior suggestive of old infiltrate. ??No fever, no leukocytosis??to suggest active infection. ??Being covered with doxycycline anyhow given COPD exacerbation. Leukocytosis likely bumped in the setting of??prednisone ?? Code Status: No resuscitation? Diet: Regular ? DVT PPX: Eliquis? Access: PIV OMN: COPD exacerbation, pulmonary nurse evaluation.?? Anticipate discharge tomorrow ?? I spent a total of 46 minutes today reviewing the chart/medical records, speaking with the patient,formulating and discussing the treatment plan and documenting the findings and encounter. Discussed plan with patient, nursing. ?? [This note was completed via Dragon Dictation. Please do not hesitate to contact the author for clarification of any unintentional error should it be needed.] ? Note * Lashanda Mora RN: PERFORM Event Display: Discharge/Transfer Note Hospital Authored Date: [id number] Nursing Discharge Note Entered On: 10/11/2022 17:07 EDT Performed On: 10/11/2022 17:04 EDT by Lashanda Mora RN Nursing Discharge Note 2 Discharge Time : 10/11/2022 16:59 EDT Lashanda Mora RN - 10/11/2022 17:09 EDT Discharge Level of Care at Discharge : Homehealth/VNA Discharge VNA/Hospice/Home Care(v001) : [place] Patient Left Unit Via : Wheelchair Patient Accompanied Off Unit with : Other: patient refused to wait at in the room for his neice , attempted to call the neice multiple times. He was adomant she would be outside of the [facility] entrance shortly after 5pm DC Instructions Provided & Signed by Pt : Yes Patient Understands D/C Instructions : Yes Patient Instructions Discharge Signed : Yes Discharge Comments : Iv dc'd with thetip intact Did Pt have Specialty Bed or Wound Vac : No Lashanda Mora RN - 10/11/2022 17:04 EDT * Que GARCIA, Laura Werner: PERFORM Event Display: Discharge/Transfer Note Hospital Authored Date: Patient: ??MIKHAIL LAGUNAS ? Age:??67 Years?Sex:??Male?:??1955?? Patient Information Discharge Location: Primary Care Physician: Not on Staff, PCP Admit Date/Time: 10/08/22 14:20 Discharge Date:??10/11/2022 12:06 Discharge Disposition Discharge Disposition: Home with Home Health Discharge Diagnosis Acute hypoxemic respiratory failure (J96.01) COPD exacerbation (J44.1) Mood disorder (F39) Tobacco use (Z72.0) CAD (coronary artery disease) (I25.10) ?? _ Discharge Medications Albuterol (Ventolin HFA 108 mcg/inh inhalation aerosol with adapter)?1?puff(s)?Inhalation?4 times a day?as needed?for wheezing Albuterol/Ipratropium (albuterol-ipratropium 3 mg-0.5 mg/3 ml inhalation solution)?3?Milliliter?Inhalation?4 times a day apixaban (Eliquis 5 mg oral tablet)?TAKE 1 TABLET BY MOUTH 2 TIMES DAILY. Aspirin (aspirin 81 mg oral tablet, chewable)?81?Milligram?1?tablet?By Mouth?Daily Atorvastatin (atorvastatin 40 mg oral tablet)?1?tab(s)?40?Milligram?By Mouth?Daily Carvedilol (Coreg 3.125 mg oral tablet)?3.125?Milligram?1?tablet?By Mouth?2 timesa day Doxycycline (doxycycline monohydrate 100 mg oral tablet)?100?Milligram?By Mouth?Every 12 hours?for 2?Days Durable Medical Equipment (Walker; Dx Heart failure with reduced ejection fraction I50. 22)?See Instructions?Walker; Dx Heart failure with reduced ejection fraction I50. 22 Furosemide (furosemide 20 mg oral tablet)?20?Milligram?1?tablet?By Mouth?Daily Multivitamin (Daily Jayson oral tablet)?TAKE 1 TABLET BY MOUTH EVERY DAY Naloxone (naloxone 4 mg/0.1 mL nasal spray)?4?Milligram?Nares, Both?Once Olanzapine (olanzapine 20 mg oral tablet)?1?tab(s)?20?Milligram?By Mouth?Daily Pantoprazole (pantoprazole 40 mg oral delayed release tablet)?1?tab(s)?40?Milligram?By Mouth?Daily PredniSONE (predniSONE 20 mg oral tablet)?40?Milligram?By Mouth?Daily?for 2?Days sacubitril-valsartan (Entresto 24 mg-26 mg oral tablet)?1?tab(s)?By Mouth?2 times a day Thiamine (Vitamin B1 100 mg oral tablet)?100?Milligram?1?tablet?By Mouth?Daily?for 10?Days umeclidinium-vilanterol (Anoro Ellipta 62.5 mcg-25 mcg/inh inhalation powder)?INHALE 1 PUFF DAILY urea powder (ure-Na 15 g oral powder for reconstitution)?30?gram?By Mouth?Daily ? Medications Started prednisone doxycycline Medications Discontinued none Doses Changed none Allergies Allergies ?(Active and Proposed Allergies Only) NKA? (Severity: Unknown severity, Onset: Unknown) ? PCP Follow-Up/Heads-Up COPD exac does not require O2 at home Hospital Course MIKHAIL LAGUNAS is a 67 yo M with PMHx CAD s/p CABG, ischemic cardiomyopathy/HFrEF (30-35%), tobacco use disorder, COPD not on home O2, mood disorder, chronic febrile neutropenia with prior history EtOH/substance abuse who??was admitted to the hospital with acute hypoxemic respiratory failure secondary to COPD exacerbation.??Patient improved with??DuoNebs and steroid.??Evaluated by pulmonary nurse on day of discharge and did not require??any oxygen at rest or with ambulation.??He will complete 5-day course of prednisone and doxycycline. ?? 10/11/2022??VSS. Seen and examined at bedside this AM. Eager for discharge, states that??he??feels well, nearing baseline. No complaints. Tolerating diet. Denies f/c, dizziness, CP, palpitations, SOB,abdominal pain, constipation, N/V/D. ?? Objective Assessment and Plan ? . Physical Exam Temperature?97.5 ?(09:09) Systolic Blood Pressure?136 ?(09:18) Diastolic Blood Pressure?83 ?(09:18) Pulse?102 ?(09:18) SpO2?98 ?(09:09) Respiratory Rate?18 ?(09:09) ? General: Alert, NAD. HEENT: Normocephalic. Respiratory: Clear to auscultation. No wheezing, rales or rhonchi. Cardiovascular: RRR. No murmurs, rubs or gallops. Gastrointestinal: Abdomen soft, non-tender, non-distended. + bowel sounds. Neurologic: Moves all extremities spontaneously. Skin: No rashes or lesions. Extremities: No cyanosis or clubbing. No gross deformities. Normal range of motion. Psychiatric: appropriate mood and affect Pending Results Add On Lab Order ordered on 10/08/2022 Add On Lab Order ordered on 10/08/2022 B Type Natriuretic Peptide ordered on 10/08/2022 Patient Education Titles Doxycycline Oral Tablet?? Prednisone Oral Tablet?? COPD Flare-Up?? What is COPD??? Follow-Up Appointments Added Follow Up ?Time Frame ?Comments Not on Staff, PCP Patient Instructions You are admitted to the hospital for COPD exacerbation. It is very important that you quit smoking. ?? We have prescribed you a medication??called prednisone which is a steroid that will help the inflammation in the lungs. ??You have been receiving this medication while you are in the hospital. ??Please??take until the bottle is empty.?? Follow the instructions on the bottle. ?? Doxycycline is the name of an antibiotic that we have been giving you just to cover in case there is??some bacterial infection in the lungs.?? Please take as prescribed on the bottle. ?? I have also sent you a refill of your DuoNebs.?? You can use this 4 times daily as needed. ?? You did not require oxygen, your oxygen levels look good??when you were both at rest and walking around.?? You may require oxygen in the future. ?? Please follow-up with your primary care provider??in a couple of weeks. Post Discharge Care Discharge ?10/11/22 12:05:00 EDT Discharge Prescriptions ?ePrescribed, ??10/11/22 12:05:00 EDT Home Health Face to Face *Denotes mandatory yuen ?? *I certify that this patient is under my care and that I or an allowed non- physician working with me had a face to face encounter with the patient on this date:??10/11/2022 12:07 ?? *The encounter with the patient was in whole, or in part, for the following medical condition, which is the primary diagnosis(es) for home health care:??Acute hypoxemic respiratory failure (J96.01) COPD exacerbation (J44.1) Mood disorder (F39) Tobacco use (Z72.0) CAD (coronary artery disease) (I25.10) ? *Select the indications for the discipline/s that are being arranged for this patient. Nursing (select all that apply): [_] None [x] Medication management (reconciliation, teaching)?? [x] Chronic disease management?? [_] Wound care and treatment?? [x] Home safety evaluation [_] Administer SQ/IM/IV medications?? [_] Cath care?? [_] Drain care?? [_] Trach or GT care?? Other _ Occupation Therapy (select all that apply): [_] None [_] ADL Management [_] Fall prevention training [_] Energy conservation [_] Cognitive training Other _ Physical Therapy (select all that apply): [_] None [_] Functional mobility training [_] Home exercise program to strengthen [_] Increase ROM?? [_] Falls prevention training [_] Home maintenance program for chronic disease Other _ Speech Therapy (select all that apply): [_] None [_] Swallow evaluation and training [_] Speech and language training [_] Cognitive training to process, organize, and/or recall information Other _ ? *Homebound due to (select all that apply): [x] Inability to leave home without assistance/supervision [x] Inability to ambulate without assistance [_] Pain [x] Decreased strength and endurance [_] Unsteady gait [_] Severe SOB and fatigue [_] Impaired transfers [_] Inability to negotiate stairs [_] Limited weight bearing [_] Mental status change? *Physician Signature: _LAURA PERRY PA-C ?? *By signing this, I certify that I have personally evaluated the patient and agree with the findings and recommendations as documented above. ? Results Discharge Labs BLOOD COUNT & DIFF WBC 17.5 k/mm3 (High)?? 10/10/2022 07:50 RBC 4.15 m/mm3 (Low)?? 10/10/2022 07:50 Hgb 14.1 Gm/dL ()?? 10/10/2022 07:50 Hct 41.7 % ()?? 10/10/2022 07:50 MCV 100.5 femtoliters (High)?? 10/10/2022 07:50 MCH 34.0 pg ()?? 10/10/2022 07:50 MCHC 33.8 g/dL ()?? 10/10/2022 07:50 Platelet Count 224 k/mm3 ()?? 10/10/2022 07:50 RDW-SD 51.8 femtoliters (High)?? 10/10/2022 07:50 MPV 9.6 femtoliters ()?? 10/10/2022 07:50 Nucleated RBC (Automated) 0.0 #/100 WBC'S ()?? 10/10/2022 07:50 Abs. NRBC 0.0 k/mm3 ()?? 10/10/2022 07:50 Abs. Neut 10.2 k/mm3 (High)?? 10/09/2022 05:08 Abs. Lymph 0.5 k/mm3 (Low)?? 10/09/2022 05:08 Abs. [place] 0.2 k/mm3 (Low)?? 10/09/2022 05:08 Abs. Eo 0.0 k/mm3 ()?? 10/09/2022 05:08 Abs. Baso 0.0 k/mm3 ()?? 10/09/2022 05:08 Neut % 93.2 % (High)?? 10/09/2022 05:08 Lymph % 4.1 % (Low)?? 10/09/2022 05:08 [place] % 1.8 % (Low)?? 10/09/2022 05:08 Eos % 0.0 % ()?? 10/09/2022 05:08 Baso % 0.2 % ()?? 10/09/2022 05:08 Imm Gran 0.7 % ()?? 10/09/2022 05:08 Abs. Imm Gran 0.1 k/mm3 ()?? 10/09/2022 05:08 ?? CARDIAC Nt-Probnp 778 pg/mL (High)?? 10/08/2022 12:13 High Sensitivity Troponin (HSTnT) 12 ng/L ()?? 10/08/2022 12:13 ?? CHEM GENERAL Sodium 136 mmol/L ()?? 10/10/2022 07:50 Potassium 4.3 mmol/L ()?? 10/10/2022 07:50 Chloride 96 mmol/L (Low)?? 10/10/2022 07:50 Bicarbonate Level 30 mmol/L (High)?? 10/10/2022 07:50 Anion Gap 10 ()?? 10/10/2022 07:50 Glucose Level 136 mg/dL (High)?? 10/08/2022 12:13 BUN 19 mg/dL ()?? 10/10/2022 07:50 Creatinine-Blood 0.6 mg/dL (Low)?? 10/10/2022 07:50 Estimated GFR Creatinine 105 ML/MIN/1.73 M2 ()?? 10/10/2022 07:50 Calcium 9.5 mg/dL ()?? 10/08/2022 12:13 ?? HEME OTHER Hold Blue Top SPECIMEN DISCARDED AFTER 4 HOURS. ()?? 10/08/2022 12:13 ? MISC. CHEMISTRY Hold Green Top SPECIMEN DISCARDED AFTER 1 WEEK ()?? 10/08/2022 12:13 ? URINE OTHER Est Creatinine Clearance 127.18 mL/min ()?? 10/09/2022 01:47 ? VIROLOGY COVID-19 by RT-PCR NEGATIVE ()?? 10/08/2022 12:25 COVID-19 PCR Specimen Source NASAL ()?? 10/10/2022 11:00 COVID-19 PCR Result NEGATIVE ()?? 10/10/2022 11:00 ? 35??minutes spent on discharge * Lashanda Mora RN: PERFORM Event Display: Patient Education/Instruction Authored Date: [id number] Inpatient Adult Discharge Instructions [address] [address] Name: MIKHAIL LAGUNAS : 1955 Visit: 10/08/2022 14:20:00 Current Date: 10/11/2022 16:11 Account: [id number] Inpatient Adult Discharge Instructions We would like to thank you for allowing us to assist you with your healthcare needs. The following includes patient education materials and information regarding your injury/illness. Our entire staffstrives to provide an excellent experience for our patients and their families. PLEASE ENSURE YOU FOLLOW-UP PER THE INSTRUCTIONS BELOW! ?? YOUR OPINION IS IMPORTANT TO US! Please complete the survey you may receive by mail or email. Your feedback will be used to make improvements to the healthcare experiences of our patients and their families. Surveys are administered by [employer] ?? If further treatment with your primary care physician or another doctor is recommended, it is important for you to keep the appointment. Call your primary care physician or return to the Emergency Department immediately if your condition worsens, fails to improve, or new symptoms develop. If you need to find a doctor, you can call [facility] [employer] for a referral at [phone] or toll free at [phone] LabEHYWFO ([phone]) or log in to [email or web address].. ?? You can view and manage your care through the patient portal or by using a health care suzanne of your choosing. [employer] is a website that allows you to securely view your medical information including your hospital discharge summary, office visit summaries, medications and follow-up visits. You can also request appointments, renew medications, and request access to your medical information using a health care suzanne of your choosing, or just ask a question. You can enroll at [email or web address] or register during your next office visit. You have been discharged from [facility], Patient Care Unit: S3. If you have any questions regarding these instructions after you leave, please call us and we will be happy to assist you. [facility] Your Care Team Attending Physician Tameka ZARCO, Ольга Corado Discharging Providers Laura Willson Reason for Admission pt presenting to the ED with shortness of breath worsening over a week. RA 86%, on neb in 90s. Your Diagnosis COPD exacerbation Acute hypoxemic respiratory failure Mood disorder Tobacco use CAD (coronary artery disease) Tests Performed Below is a partial list of the tests performed during your hospitalization. You may have had other tests and procedures not included in this list. Please discuss all test results with your provider. Basic Metabolic Panel BUN CBC CBC w/ Differential COVID-19 (2019 Novel Coronavirus) PCR COVID-19 (Novel Coronavirus), Rapid PCR Creatinine Electrolytes High Sensitivity Troponin T HOLD BLUE TUBE HOLD GREEN TUBE Lytes PROBNP XR Chest Portable Primary Care Provider Not on Staff, PCP Advance Directive Health Care Proxy on File Yes - Health Care Proxy Discharge Vitals Temperature: 97.5 DegF Height: 180.3 cm Pulse Rate:??102 bpm??High Weight: 82 kg Respiratory Rate: 18 br/min Body Mass Index:??25.22 kg/m2??High Systolic Blood Pressure: 136 mm Hg Body surface area: 2.03 Diastolic Blood Pressure: 83 mm Hg ?? Oxygen Saturation: 98 % ?? Studies Pending All tests and labs ordered during this hospital stay have been completed unless listed below. Please discuss all pending results with your provider listed above in these instructions. ?? Add On Lab Order B Type Natriuretic Peptide (ProBNP) What to do next Instructions From Your Doctor You are admitted to the hospital for COPD exacerbation. It is very important that you quit smoking. ?? We have prescribed you a medication??called prednisone which is a steroid that will help the inflammation in the lungs. ??You have been receiving this medication while you are in the hospital. ??Please??take until the bottle is empty.?? Follow the instructions on the bottle. ?? Doxycycline is the name of an antibiotic that we have been giving you just to cover in case there is??some bacterial infection in the lungs.?? Please take as prescribed on the bottle. ?? I have also sent you a refill of your DuoNebs.?? You can use this 4 times daily as needed. ?? You did not require oxygen, your oxygen levels look good??when you were both at rest and walking around.?? You may require oxygen in the future. ?? Please follow-up with your primary care provider??in a couple of weeks. Discharge Orders You Need to Schedule the Following Appointments Follow Up with??Not on Staff, PCP Discharge Medications MIKHAIL LAGUNAS :1955 Visit Date:10/08/2022 Medications: Please continue your medications until treatment is completed or stopped by your provider. Medications not listed below should be discontinued. Discuss any questions related to medications with your provider. What How Much When Instructions Next Dose New Doxycycline (doxycycline monohydrate 100 mg oral tablet) 100 Milligram Oral Every 12 hours Duration: 2 Days Pickup at [place] [address] 10/11 PM New PredniSONE (predniSONE 20 mg oral tablet) 40 Milligram Oral Daily Duration: 2 Days Pickup at [place] [address] 10/12 AM Changed Albuterol/ Ipratropium (albuterol-ipratropium 3 mg-0.5 mg/ 3 ml inhalation solution) 3 Milliliter Inhalation 4 times a day Pickup at [place] [address] 10/11 5pm Unchanged Albuterol (Ventolin HFA 108 mcg/ inh inhalation aerosol with adapter) 1 puff(s) Inhalation 4 times a day as needed for for wheezing as needed Unchanged apixaban (Eliquis 5 mg oral tablet) TAKE 1 TABLET BY MOUTH 2 TIMES DAILY. ?? 10/11 PM Unchanged Aspirin (aspirin 81 mg oral tablet, chewable) 1 tab(s) Oral Daily 10/12 AM Unchanged Atorvastatin (atorvastatin 40 mg oral tablet) 1 tab(s) Oral Daily 10/12 AM Unchanged Carvedilol (Coreg 3.125 mg oral tablet) 1 tab(s) Oral Twice a day 10/11 PM Unchanged Durable Medical Equipment (Walker; Dx Heart failure with reduced ejection fraction I50. 22) See instructions Walker; Dx Heart failure with reduced ejection fraction I50. 22 ?? Unchanged Furosemide (furosemide 20 mg oral tablet) 1 tab(s) Oral Daily 10/12 AM Unchanged Multivitamin (Daily Jayson oral tablet) TAKE 1 TABLET BY MOUTH EVERY DAY ?? 10/12 AM Unchanged Naloxone (naloxone 4 mg/ 0.1 mL nasal spray) 4 Milligram Nares, Both Once emergencies Unchanged Olanzapine (olanzapine 20 mg oral tablet) 1 tab(s) Oral Daily 10/11 bedtime Unchanged Pantoprazole (pantoprazole 40 mg oral delayed release tablet) 1 tab(s) Oral Daily 10/12 AM Unchanged sacubitril-valsartan (Entresto 24 mg-26 mg oral tablet) 1 tab(s) Oral Twice a day 10/11 PM Unchanged Thiamine (Vitamin B1 100 mg oral tablet) 1 tab(s) Oral Daily Duration: 10 Days 10/12 AM Unchanged umeclidinium-vilanterol (Anoro Ellipta 62.5 mcg-25 mcg/ inh inhalation powder) INHALE 1 PUFF DAILY ?? 10/12 AM Unchanged urea powder (ure-Na 15 g oral powder for reconstitution) 30 gram Oral Daily 10/12 AM Pharmacy Information [facility]: [address], [place] [id number] [phone] Test Results Below is a partial list of the most recent Laboratory test results done prior to this discharge. You may have had other tests and procedures not included in this list. Please discuss all test resultswith your provider. Est Creatinine Clearance - 127.18 mL/min (10/09/2022) Basic Metabolic Panel (10/08/2022) ???Sodium - 133 mmol/L???Potassium - 4.2 mmol/L???Chloride - 93 mmol/L???Bicarbonate Level - 29 mmol/L???Anion Gap - 11???Glucose Level - 136 mg/dL???BUN - 10 mg/dL???Creatinine-Blood - 0.6 mg/dL???Estimated GFR Creatinine - 106 ML/MIN/1.73 M2???Calcium - 9.5 mg/dL BUN (10/10/2022) ???BUN - 19 mg/dL CBC (10/10/2022) ???WBC - 17.5 k/mm3???RBC - 4.15 m/mm3???Hgb - 14.1 Gm/dL???Hct - 41.7 %???MCV - 100.5 femtoliters???MCH - 34.0 pg???MCHC - 33.8 g/dL???Platelet Count - 224 k/mm3???RDW-SD - 51.8 femtoliters???MPV - 9.6 femtoliters???Nucleated RBC (Automated) - 0.0 #/100 WBC'S???Abs. NRBC - 0.0 k/mm3 CBC w/ Differential (10/09/2022) ???WBC - 11.0 k/mm3???RBC - 3.94 m/mm3???Hgb - 13.1 Gm/dL???Hct - 38.3 %???MCV - 97.2 femtoliters???MCH - 33.2 pg???MCHC - 34.2 g/dL???Platelet Count - 186 k/mm3???RDW-SD - 49.5 femtoliters???MPV - 9.2 femtoliters???Nucleated RBC (Automated) - 0.0 #/100 WBC'S???Abs. NRBC - 0.0 k/mm3???Abs. Neut - 10.2 k/mm3???Abs. Lymph - 0.5 k/mm3???Abs. [place] - 0.2 k/mm3???Abs. Eo - 0.0 k/mm3???Abs. Baso - 0.0 k/mm3???Neut % - 93.2 %???Lymph % - 4.1 %???[place] % - 1.8 %???Eos % - 0.0 %???Baso % - 0.2 %???Imm Gran - 0.7 %???Abs. Imm Gran - 0.1 k/mm3 COVID-19 (2019 Novel Coronavirus) PCR (10/10/2022) ???COVID-19 PCR Specimen Source - NASAL???COVID-19 PCR Result - NEGATIVE COVID-19 (Novel Coronavirus), Rapid PCR (10/08/2022) ???COVID-19 by RT-PCR - NEGATIVE Creatinine (10/10/2022) ???Creatinine-Blood - 0.6 mg/dL???Estimated GFR Creatinine - 105 ML/MIN/1.73 M2 Electrolytes (10/09/2022) ???Sodium - 134 mmol/L???Potassium - 4.2 mmol/L???Chloride - 96 mmol/L???Bicarbonate Level - 27 mmol/L???Anion Gap - 11 High Sensitivity Troponin T (10/08/2022) ???High Sensitivity Troponin (HSTnT) - 12 ng/L HOLD BLUE TUBE (10/08/2022) ???Hold Blue Top - SPECIMEN DISCARDED AFTER 4 HOURS. HOLD GREEN TUBE (10/08/2022) ???Hold Green Top - SPECIMEN DISCARDED AFTER 1 WEEK L[place] (10/10/2022) ???Sodium - 136 mmol/L???Potassium - 4.3 mmol/L???Chloride - 96 mmol/L???Bicarbonate Level - 30 mmol/L???Anion Gap - 10 PROBNP (10/08/2022) ???Nt-Probnp - 778 pg/mL Allergies (NKA means No Known Allergies) NKA Problems Active Problems??(7) CAD (coronary artery disease)?? COPD with emphysema?? HTN (hypertension)?? Hyperlipidemia?? Mood disorder?? Polysubstance abuse?? Tobacco use?? Education Materials Below is the list of Educational Leaflet Providered with your Discharge Instructions. Doxycycline Oral Tablet?? Prednisone Oral Tablet?? COPD Flare-Up?? What is COPD??? Valuables and Belongings I fully understand and agree that [facility] accepts no responsibility for all my personal property including clothing, toilet articles, radios, jewelry, dentures, hearing aids, rings, money, or any other property that is in my possession or is brought to me after admission. I understand certain valuables may be placed in a hospital safe for a short period of time. I understand that the hospital is not liable for loss or damage due to accident, fire, or other natural occurrence while said property is in the safe. I accept full responsibility for any personal property that I keep with me, and will not hold the hospital responsible in case of loss or disappearance. I acknowledge that i have been encouraged to send valuables and belongings home. ?? No Valuables/Belongings: No valuables/belongings present Review of Valuable and Belonging List: With patient Date for Pt to Sign Valuables/Belongings: 10/11/22 09:02:00 ?? Other Discharge Information ? Case Management Discharge Plan?? Discharge Plan?? Discharge Agency Information?? Discharge Level of Care at Discharge: Homehealth/VNA Service Categories #1: Alf Discharge VNA/Hospice/Home Care: [facility] Services Service Comments #1: The nurse will resume svcs, please call the agency with questions ?? Pulmonary Rehab Status?? Pulmonary Rehab Discharge Status?? Respiratory Rate: 18 br/min ? Common Emergency Awareness Tips IS IT A STROKE? Act FAST and Check for these signs: FACE Does the face look uneven? ARM Does one arm drift down? SPEECH Does their speech sound strange? TIME Call at any sign of stroke ?? Heart Attack Signs Chest discomfort: Most heart attacks involve discomfort in the center of the chest and lasts more than a few minutes, or goes away and comes back. It can feel like uncomfortable pressure, squeezing, fullness or pain. Discomfort in upper body: Symptoms can include pain or discomfort in one or both arms, back, neck, jaw or stomach. Shortness of breath: With or without discomfort. Other signs: Breaking out in a cold sweat, nausea, or lightheaded. Remember, MINUTES DO MATTER. If you experience any of these heart attack warning signs, call to get immediate medical attention! ?? Smoking can increase your chances of developing chronic health problems and can cause harmful effects to other family members in your house. If you smoke, you are strongly encouraged to quit. Please call [facility] [employer] [facility] at [phone] or [phone]) or log in to [email or web address] for referrals to smoking cessation programs. ?? 096 Suicide & Crisis Lifeline is available 14/11 if you or someone you know needs to find a reason to keep living. By calling 937 you'll be connected to a skilled, trained counselor at a crisis center in your area. INPATIENT DISCHARGE INSTRUCTIONS SIGNATURE MARY ELLEN BEBOCARLOS MANUELIN Location:[facility] Registration Date and Time:10/08/2022 14:20 EDT Primary Care Physician: Not on Staff, PCP Attending Physician: Tameka ZARCO, Ольга Corado, MIKHAIL LANG, have received the above patient education materials/instructions and have verbalized understanding. If ambulance or transport services are being used I further acknowledge being given a choice of service. ?? If you need to contact me, please call me at this number: . Patient/Outreach Librarian Name: Patient/Outreach Librarian Signature: Relationship to Patient: Witness Name/Signature: Date: * Laura Willson: PERFORM Event Display: Patient Education Leaflets Authored Date: [id number] Doxycycline Oral Tablet ?? [id number] Doxycycline Oral Tablet Uses For treating bacterial infection. ?? Instructions Take the medicine with 250 mL (1 cup) of water. Take on empty stomach - 1 hour before or 2 hours after eating. Sit or stand upright for 30 minutes after taking the medicine. Do not lie down. Keep the medicine at room temperature. Avoid heat and direct light. Do not take any antacid or vitamins with magnesium, calcium, aluminum, or iron for 2 hours before and 2 hours after taking this medicine. This medicine can make you sensitive to the sun. Use sunscreen or protective clothing when in sun. If you forget to take a dose on time, take it as soon as you remember. If it is almost time for thenext dose, do not take the missed dose. Return to your normal schedule. Do not take 2 doses at one time. Drug interactions can change how medicines work or increase risk for side effects. Tell your healthcare providers about all medicines taken. Include prescription and pjxd-zbv-etgglwk medicines, vitamins, and herbal medicines. Speak with your doctor or pharmacist before starting or stopping any medicine. Keep using this medicine for the full number of days that it is prescribed. Do not stop the medicine even if you start to feel better. This medicine can cause permanent change in teeth color in children. ?? Cautions Tell your doctor and pharmacist if you ever had an allergic reaction to a medicine. Do not use the medication any more than instructed. Contact your doctor if you notice a change in the amount or darkening of your urine. Please tell your doctor if you have moderate to severe diarrhea while on this medicine. Do not treat the diarrhea with igcx-sml-uiafipc diarrhea medicine. This medicine passes into breast milk. Ask your doctor before . This medicine can hurt a new baby in the womb. If you become while on this medicine, tell your doctor immediately. Your doctor may switch you to a different medicine. Do not share this medicine with anyone who has not been prescribed this medicine. ?? Side Effects The following is a list of some common side effects from this medicine. Please speak with your doctor about what you should do if you experience these or other side effects. ??? diarrhea ??? nausea and vomiting ??? stomach upset or abdominal pain ??? yeast infection of mouth ??? vaginal itching or yeast infection Call your doctor or get medical help right away if you notice any of these more serious side effects: ??? swelling in the neck or throat ??? difficulty swallowing ??? blurring or changes of vision A few people may have an allergic reaction to this medicine. Symptoms can include difficulty breathing, skin rash, itching, swelling, or severe dizziness. If you notice any of these symptoms, seek medical help quickly. ?? Extra Please speak with your doctor, nurse, or pharmacist if you have any questions about this medicine. ?? [email or web address] IMPORTANT NOTE: This document tells you briefly how to take your medicine, but it does not tell youall there is to know about it. Your doctor or pharmacist may give you other documents about your medicine. Please talk to them if you have any questions. Always follow their advice. There is a more complete description of this medicine available in Faroese. Scan this code on your smartphone or tablet or use the web address below. You can also ask your pharmacist for a printout. If you have any questions, please ask your pharmacist. The display and use of this drug information is subject to Terms of Use. Copyright(c) 2022 [employer]. ?? The [employer]. All rights reserved. This information is not intended as a substitute for professional medical care. Always follow your healthcare professional's instructions. ?? * Que GARCIA, Laura Werner: PERFORM Event Display: Patient Education Leaflets Authored Date: Prednisone Oral Tablet ?? [id number] Prednisone Oral Tablet Brands: Deltasone Uses This medicine is used for the following purposes: ??? allergic reaction ??? autoimmune disorder ???blood disorder ??? endocrine disorder ??? inflammatory disease ??? immune suppression ??? cancer ??? COVID-19 (coronavirus) ?? Instructions Take the medicine with food. Store at room temperature away from heat, light, and moisture. Do not keep in the bathroom. It is important that you keep taking each dose of this medicine on time even if you are feeling well. If you forget to take a dose on time, take it as soon as you remember. If it is almost time for thenext dose, do not take the missed dose. Return to your normal schedule. Do not take 2 doses at one time. Drug interactions can change how medicines work or increase risk for side effects. Tell your healthcare providers about all medicines taken. Include prescription and ekhe-fpr-bbqnmja medicines, vitamins, and herbal medicines. Speak with your doctor or pharmacist before starting or stopping any medicine. Tell your doctor if symptoms do not get better or if they get worse. This medicine may affect your blood sugar levels. If you have diabetes, talk to your doctor before changing the dose of your diabetes medicine. This medicine may affect the strength of your bones. If you have or are at increased risk for osteoporosis (weakening of the bones), your doctor may recommend foods with calcium and vitamin D. Keep all appointments for medical exams and tests while on this medicine. ?? Cautions Tell your doctor and pharmacist if you ever had an allergic reaction to a medicine. This medicine may cause serious bleeding from the stomach or bowels. Stop this medicine and call your doctor immediately if you see any signs of bleeding. Bleeding can cause pain in the stomach, vomiting up liquid that looks like coffee grounds, and red or dark tarry stools. Do not use the medication any more than instructed. Please check with your doctor before drinking alcohol while on this medicine. Avoid smoking while on this medicine. Smoking may increase your risk for stomach bleeding. This medicine may reduce your body's ability to fight infections. Avoid contact with people with colds, flu or other infections. Contact your doctor if you develop fever, cough, sore throat, or chills. Speak with your health care provider before receiving any vaccinations. This medicine passes into breast milk. Ask your doctor before . During , this medicine should be used only when clearly needed. Talk to your doctor about the risks and benefits. Always carry an ID card or wear a medical alert bracelet indicating your medical condition. Do not share this medicine with anyone who has not been prescribed this medicine. ?? Side Effects The following is a list of some common side effects from this medicine. Please speak with your doctor about what you should do if you experience these or other side effects. ??? acne ??? agitated feeling or trouble sleeping ??? decreased appetite ??? high blood sugar ??? high blood pressure ??? nausea and vomiting ??? stomach upset or abdominal pain Call your doctor or get medical help right away if you notice any of these more serious side effects: ??? bleeding or bruising ??? bone pain ??? coughing up blood or vomit that looks like coffee grounds ??? depression or feeling sad ??? swelling of the legs, feet, and hands ??? fever or chills ??? fast or irregular heart beats ??? menstruation changes (missed or fewer periods) ??? mood changes ??? muscle pain or cramps ??? seizures ??? thinning of the skin ??? severe stomach or bowel pain ??? dark, tarry stool ??? unusual or unexplained tiredness or weakness ??? increased urinary frequency ??? blurring or changes of vision ??? sudden or unexplained weight gain ??? slow wound healing A few people may have an allergic reaction to this medicine. Symptoms can include difficulty breathing, skin rash, itching, swelling, or severe dizziness. If you notice any of these symptoms, seek medical help quickly. ?? Extra Please speak with your doctor, nurse, or pharmacist if you have any questions about this medicine. ?? [email or web address] IMPORTANT NOTE: This document tells you briefly how to take your medicine, but it does not tell youall there is to know about it. Your doctor or pharmacist may give you other documents about your medicine. Please talk to them if you have any questions. Always follow their advice. There is a more complete description of this medicine available in Faroese. Scan this code on your smartphone or tablet or use the web address below. You can also ask your pharmacist for a printout. If you have any questions, please ask your pharmacist. The display and use of this drug information is subject to Terms of Use. Copyright(c) 2022 [employer]. ?? The [employer]. All rights reserved. This information is not intended as a substitute for professional medical care. Always follow your healthcare professional's instructions. ?? * Que GARCIA, Laura Werner: PERFORM Event Display: Patient Education Leaflets Authored Date: COPD Flare-Up ?? [id number] COPD Flare-Up You have had a flare-up of your COPD. COPD (chronic obstructive pulmonary disease) is a common lung disease. It causes your airways to get irritated and narrower. This makes it harder for you to breathe. Emphysema and chronic bronchitis are both types of COPD. This is a long-term (chronic) condition. This means you always have it. Sometimes it gets worse. When this happens, it's called a flare-up. Symptoms of COPD People with COPD may have symptoms most of the time. In a flare-up, your symptoms get worse. These symptoms may mean you are having a flare-up: ??? Shortness of breath, shallow or rapid breathing, orwheezing that gets worse ??? Lung infection ??? Cough that gets worse ??? More mucus (or sputum), thicker mucus, or mucus of a different color ??? Tiredness, less energy, or trouble doing your normalactivities ??? Fever ??? Chest tightness ??? Your symptoms don???t get better even when you use your normal medicines, inhalers, and nebulizer ??? Trouble talking ??? You feel confused ?? Causes of flare-ups Unfortunately, a flare-up can happen even if you did everything right, and even if you followed your healthcare provider???s instructions. Some causes of flare- ups are: ??? Cold weather ??? Smoking or secondhand smoke ??? Use of e- cigarettes or vaping products ??? Colds, the flu, or respiratory infections ??? Air pollution ??? Sudden change in the weather ??? Dust, vapors, gases, irritating chemicals, or strong fumes ??? Not taking your medicines as prescribed ??? Indoor pollution such as burning wood, smoke from home cooking, or heating fuels ?? Home care Here are some things you can do at home to treat a flare-up: ??? Keep calm and try not to panic. This makes it harder to breathe, and keeps you from doing the right things. ??? Don???t smoke or be around others who are smoking. If you smoke, quit. Smoking is the main cause of COPD. Quitting will help you be able to better manage your COPD. Don't use e-cigarettes or vaping products either. Ask your healthcare provider about ways to help you quit smoking. ??? Before drinking extra fluids during flare-ups to loosen the mucus, always talk with your healthcare provider first. ??? Eat a healthy, balanced diet. This is important to staying as healthy as possible. So is trying to stay at your ideal weight. Being overweight or underweight can affect your health. Make sure you have a lot of fruits and vegetables every day. And also eat balanced portions of whole grains, lean meats and fish, and low-fat dairy products. ??? Use your inhalers and nebulizer, if you have one, as you have been told to. When using a metered dose inhaler or nebulizer, it's very important to use the proper techniques.If you have any questions about how to use your device, contact your healthcare provider or refer to the user manual. ??? If you were given antibiotics, take them until they are used up or your provider tells you to stop. It???s important to finish the antibiotics even though you feel better. This will make sure the infection has cleared. ??? If you were given a steroid, finish it even if you feel better. ??? Learn the names of your medicines, as well as how and when to use them. Talk with yourprovider about other conditions you have and their treatment and how it may affect your COPD. ??? Oxygen may be prescribed if tests show that your blood contains too little oxygen. Ask your provider about long-term oxygen therapy. ??? Coping tips for shortness of breath include: o Exercise. Try to be as active as possible. This will improve energy levels and strengthen your muscles so you can do more. o Breathing methods. Ask your healthcare provider or nurse to show you how to do pursed-lip breathing. o Balance rest and activity. Each day, try to balance rest periods with activity. For example, you might start the day with getting dressed and eating breakfast. Then you can relax and read the paper. After that, take a brief walk. And then sit with your feet up for a while. o Pulmonary rehab (rehabilitation). Community-based and home-based programs work as well as hospital-based programs as long as they are as often and as intense. Standard home-based pulmonary rehab programs help shortness of breath in people with COPD. Supervised, traditional pulmonary rehab remains the best optionfor people with COPD. These programs help with managing your disease and also help with breathing methods, exercise, support, and counseling. To find one, ask your provider or call your local hospital. Also talk with your healthcare provider about which rehab or self- management program is best for you. ?? Preventing a flare-up Flare-ups happen. But the best way to treat one is to prevent it before it starts. Here are some pointers: ??? Don???t smoke or be around others who are smoking. Avoid using e-cigarettes due to theirharmful side effects. ??? Take your medicines as discussed with your healthcare provider. ??? Talk with your provider about getting a flu shot every year. Also find out if you need a pneumonia shot. ??? If there is a weather advisory warning to stay indoors, try to stay inside when possible. ??? Try to eat healthy, exercise, and get plenty of sleep. ??? Try to stay away from things that normally set you off. These include dust, chemical fumes, hairsprays, or strong perfumes. ?? Follow-up care Follow up with your healthcare provider as advised. If a culture was done, you will be told if your treatment needs to be changed. You can call as directed??for the results. If X-rays were done, you will be told of any new findings that may affect your care. During each appointment, talk with your healthcare provider about your ability to: ??? [place] in yournormal environment ??? Correctly use inhaler (or your medicine delivery systems) ??? [place] with other conditions you have and their treatments and how they may affect your COPD ?? Call 911 Call 911 if any of these occur: ??? Wheezing or shortness of breath does not get better with treatment ??? Chest pain or chest tightness ??? Feeling lightheaded or dizzy ??? You have trouble breathing ??? You feel confused or it???s hard to wake you up ??? You faint or lose consciousness ??? You have a rapid heart rate ??? You have new pain in your chest, arm, shoulder, neck, or upper back ?? When to seek medical advice Call your healthcare provider right away??if??any of these occur: ??? Fever of 100.4??F??(38??C) orhigher, or as directed by your healthcare provider ??? Coughing up lots of dark-colored or bloody mucus (sputum) ??? You don't start to get better within 24 hours or new symptoms develop ??? Swellingof your ankles gets worse ??? Weakness ?? Last Reviewed Date: 2021 ?? 1535-1810 The [employer]. All rights reserved. This information is not intended as a substitute for professional medical care. Always follow your healthcare professional's instructions. ?? Patient Care team information Care Team Personnel Name: Alysia Banks Position: S RN Member Role: Primary Care Nurse Name: Alexis Dalton RN Position: S RN Member Role: Primary Care Nurse Name: Eri Moore RN Position: S RN Member Role: Primary Care Nurse Name: Uma Lara RN Position: S RN Member Role: Primary Care Nurse Name: Gage Vargas RN Position: S RN Member Role: Primary Care Nurse Name: Veronika Castro RN Position: S RN Member Role: Primary Care Nurse Name: Chele Weaver RN Position: [facility] RN Member Role: Primary Care Nurse Name: Zakia Dinero RN Position: [facility] RN Member Role: Primary Care Nurse Name: Temitope Alva RN Position: [facility] RN Member Role: Primary Care Nurse Name: Dorinda Forrester RN Position: [facility] RN Member Role: Primary Care Nurse Name: Jose Feliz Position: [facility] RN Member Role: Primary Care Nurse Name: Lia Levin RN Position: [facility] RN Member Role: Primary Care Nurse Name: Araceli Dixon RN Position: [facility] RN Member Role: Primary Care Nurse Name: Silvina Baird RN Position: [facility] RN Supv Member Role: Primary Care Nurse Name: Yosef Barahona RN Position: [facility] RN Member Role: Primary Care Nurse Name: Dasia Lopez Position: [facility] RN Supv Member Role: Primary Care Nurse Name: Yosef Meadows RN Position: [facility] RN Member Role: Primary Care Nurse Name: Catie Moreira Position: [facility] RN Member Role: Primary Care Nurse Name: Colton Sun RN Position: [facility] RN Member Role: Primary Care Nurse Name: Susanna Vaca RN Position: [facility] RN Supv Member Role: Primary Care Nurse Name: Catie Becerra RN Position: [facility] RN Member Role: Primary Care Nurse Name: Steven Chicas RN Position: [facility] RN Member Role: Primary Care Nurse Name: Not on Staff, PCP Position: [facility] Physician (General Medicine) Member Role: PCP Name: Brett Del Angel RN Position: [facility] RN Member Role: Primary Care Nurse Name: Blair Fisher MD Position: [facility] Renal MD Member Role: [employer] Consulting Physician Address: Address: [address] [place] [address] [facility] [address] Name: Jose Dickinson RN Position: [facility] RN Member Role: Primary Care Nurse Name: Tiana Trent RN Position: [facility] RN Member Role: Primary Care Nurse Name: Zoltan Bush MD Position: [facility] Renal MD Member Role: [employer] Consulting Physician Address: Address: [address] [place] [place] [address] [facility] [address] Name: Christin Daniel RN Position: [facility] RN Member Role: Primary Care Nurse Name: Lizz Adams RN Position: [facility] RN Member Role: Primary Care Nurse Name: Elysia Cueva RN Position: [facility] RN Member Role: Primary Care Nurse Name: Dayna Shirley RN Position: [facility] RN Member Role: Primary Care Nurse Name: Jaci Zelaya RN Position: [facility] Hospital Operating Engineer Apprentice Member Role: Primary Care Nurse Name: Ezra Mckeon RN Position: [facility] RN Member Role: Primary Care Nurse Name: Sincere DAUGHERTY Attending Position: [facility] ED Medicine MD Name: Cammie Andrade Position: [facility] ED TA [facility] Member Role: [employer]yer [employer] Name: Sailaja Shell Position: [facility] ED RN W/OE and Tasks Member Role: Patient Care Provider Care Team Related Persons Name: PAZ LU Address: home [address] [place] [address] [place] [id number]
--- OUTSIDE RECORDS SUMMARY | 2023-02-02 19:38 | XMS_ITS | Continuity of Care Document ---
Author Name Unknown Organization [facility] ter Address [address] [place] [id number]- Care Team Providers Care Social Media Content Specialist Name Role Phone Not on Staff, PCP Primary Care Physician Unavail able Encounter [facility] Date(s): 06/20/22 - 07/10/[address] [address]- Encounter Diagnosis Pneumonia(Final) - 06/20/22 Discharge Disposition: A-Transfer VNA/Home Health Attending Physician: Lisa Hawkins MD Admitting Physician: Paty Head MD Referring Physician: Not on Staff, Referring MD Allergies, Adverse Reactions, Alerts No Known Allergies Immunizations Given and Recorded Vaccine Date Status Refusal Reason SARS-CoV-2 (COVID-19) mRNA BNT-162b2 vac 08/04/20 Recorded SARS-CoV-2 (COVID-19) mRNA BNT-162b2 vac 07/14/20 Recorded tetanus/diphtheria/pertussis, acel(Tdap) 10/17/19 Recorded tetanus/diphtheria/pertussis, acel(Tdap) 01/01/09 Recorded Not Given Vaccine Date Status Refusal Reason influenza virus vaccine, inactivated 07/18/20 Not Given Patient Refuses Medications albuterol-ipratropium 3 mg-0.5 mg/3 ml inhalation solution 3 mL, Inhalation, 4 times a day, # 30 each, 0 Refills, Maintenance, 06/20/22 13:59:00 EST, Solution, Partial fill upon patient request if the prescription is for a schedule II opioid drug. Start Date: 06/20/22 Status: Ordered Anoro Ellipta 62.5 mcg-25 mcg/inh inhalation powder INHALE 1 PUFF DAILY Start Date: 06/20/22 Status: Ordered aspirin 81 mg oral tablet, chewable 81 mg, 1, tablet, By Mouth, Daily, # 30 tablet, Refills 3, Tot. Refills 3, Maintenance, 11/30/20 12:43:00 EDT, Route to Pharmacy Electronically, [facility], Partial fill upon patient request if [...] tablet 3.125 mg, Tablet, By Mouth, Hold for SBP <100 or HR <60, Hold for: SBP <100 or HR <60, 07/10/22 9:00:00 EDT Start Date: 07/10/22 Stop Date: 07/10/22 Status: Completed Coreg 3.125 mg oral tablet 3.125 mg, 1, tablet, By Mouth, 2 times a day, # 60 tablet, Refills 2, Tot. Refills 2, Maintenance, 12/01/20 15:01:00 EDT, Route to Pharmacy Electronically, [facility], Partial fill uponpatient request if the prescription is for a schedu... Start Date: 12/01/20 Status: Ordered Daily Jayson oral tablet TAKE 1 TABLET BY MOUTH EVERY DAY Start Date: 06/20/22 Status: Ordered Eliquis 5 mg oral tablet [...] Status: Ordered furosemide 20 mg oral tablet TAKE 1 TABLET BY MOUTH TWICE A DAY Start Date: 06/20/22 Status: Ordered lactulose 10 gm/15 ml oral syrup TAKE 30 ML BY MOUTH 4 TIMES A DAY Start Date: 06/20/22 Status: Ordered naloxone 4 mg/0.1 mL nasal [...] Dry Weight Start Date: 07/09/22 Status: Ordered spironolactone 25 mg oral tablet TAKE 1 TABLET BY MOUTH EVERY DAY Start Date: 06/20/22 Status: Ordered Ventolin HFA 108 mcg/inh inhalation [...] Date: 06/20/22 Stop Date: 06/30/22 Status: Ordered Problem List Condition Confirmation Course Effective Dates Status H ealth Status Informant CAD (coronary artery disease) 1 Confirmed Active Hyperlipidemia Confirmed Active HTN (hypertension) Confirmed Active Mood disorder Confirmed Active Polysubstance abuse Confirmed Active COPD with emphysema Confirmed Active Tobacco use Confirmed Active 1s/p CABG Results Orders for Microbiology Reports Name Date Blood Culture 06/23/22 Blood Culture #2 06/23/22 Sputum Culture w/ Gram Smear 06/20/22 Blood Culture 06/20/22 Blood Culture #2 06/20/22 Microbiology Reports TEST:Blood Culture STATUS:Auth (Verified) BODY SITE: SOURCE:Blood COLLECTED DATE/TIME:06/23/22 4:31 AM Blood Culture SPECIMEN DESCRIPTION : BLOOD LEFTHAND SPECIAL REQUESTS : NONE CULTURE : NO GROWTH 5 DAYS. REPORT STATUS : FINAL 06/28/2022 TEST:Blood Culture, Second Order STATUS:Auth (Verified) BODY SITE: SOURCE:Blood COLLECTED DATE/TIME:06/23/22 4:31 AM Blood Culture, Second Order SPECIMEN DESCRIPTION : BLOOD RHAND SPECIAL REQUESTS : NONE CULTURE : NO GROWTH 5 DAYS. REPORT STATUS : FINAL 06/28/2022 TEST:Sputum Culture STATUS:Auth (Verified) BODY SITE: SOURCE:ENDOTR COLLECTED DATE/TIME:06/20/22 4:15 PM Sputum Culture SPECIMEN DESCRIPTION : ENDOTRACHEAL ASPIRATE SPECIAL REQUESTS : NONE GRAM STAIN : 2+ POLYMORPHONUCLEAR LEUKOCYTES 1+ SQ.EPITHELIAL CELLS 2+ GRAM POSITIVE COCCI 1+ GRAM NEGATIVE RODS CULTURE : 3+ NORMAL RAMAN REPORT STATUS : FINAL 06/23/2022 TEST:Blood Culture, Second Order STATUS:Auth (Verified) BODY SITE: SOURCE:Blood COLLECTED DATE/TIME:06/20/22 11:07 AM Blood Culture, Second Order SPECIMEN DESCRIPTION : BLOOD RA SPECIAL REQUESTS : NONE CULTURE : NO GROWTH 5 DAYS. REPORT STATUS : FINAL 06/25/2022 TEST:Blood Culture STATUS:Auth (Verified) BODY SITE: SOURCE:Blood COLLECTED DATE/TIME:06/20/22 10:32 AM Blood Culture SPECIMEN DESCRIPTION : BLOOD NO SITE SPECIAL REQUESTS : NONE CULTURE : NO GROWTH 5 DAYS. REPORT STATUS : FINAL 06/25/2022 Radiology Reports * Exam Date Time Procedure Performing Provider Status 06/20/22 11:[address] Abd/Pelvis W/ IV Contrast Only Keara Irizarry; Auth (Verified) Notes: (CT Abd/Pelvis W/ IV Contrast Only) Reason For Exam: Aneurysm RESULT: CT Abd/Pelvis W/ IV Contrast Only CT Abd/Pelvis W/ IV Contrast Only REASON: Aneurysm; Clinical Question(s): Aneurysm; Special Instructions: Runoff from CTA chest for PE TECHNIQUE: Spiral CT through the abdomen and pelvis with IV contrast formatted in 3 planes. 100 cc of Omnipaque 300 was administered intravenously. This study was performed without oral contrast. Weight-based protocol using automatic tube modulation was used to optimize exposure parameters. CTDIvol Body: 11.18 mGy, DLP Body: 1504 mGy*cm. COMPARISON: None. FINDINGS: Warehouse Stocker View Findings, Lines and Tubes: Enteric tube in the gastric lumen. Burton catheter in bladder Visualized Chest: Bronchial wall thickening and mucous plugging in the lower lobes, partially obscured by motion and better visualized on the current CT chest. The heart is normal in size. No pericardial effusion. Diaphragm: Normal. Liver: Normal. Gallbladder: No CT evidence of gallbladder pathology. Bile ducts: No biliary ductal dilation. Spleen: Normal. Pancreas: Normal. Adrenal glands: Normal. Kidneys and ureters: No hydronephrosis, stones, or suspicious masses. Bladder: Normal. Reproductive organs: Unremarkable. Stomach, small bowel, and large bowel: Normal caliber bowel loops without surrounding inflammatory change. A few scattered colonic diverticula. Appendix: Likely seen on image 59 series 605, no evidence of appendicitis. Peritoneum and retroperitoneum: No ascites or pneumoperitoneum. No omental or mesenteric lesions. Lymph nodes: No enlarged lymph nodes. Blood vessels: Severe atherosclerotic vascular calcification but no aneurysm. Fusiform ectasia of the infrarenal abdominal aorta measuring up to 2.3 cm. No evidence of venous thrombosis. Abdominal and pelvic wall: Unremarkable. Bones: No acute abnormality. Bilateral pars defects of L5 with 1.1 cm of anterolisthesis of L5 on S1. Mild compression deformity of L4 appears chronic. IMPRESSION: No acute abnormality in the abdomen and pelvis. Bronchial wall thickening and mucous plugging in the lower lobes, better seen on concurrent CT chest. I have personally reviewed the images and I agree with this report. WSN: [id number] Ordering Physician: Tyron Smith Dictated By: Zoltan Mead DO Dictated Date/Time: 06/27/22 8:38 am Reviewed By: Luan Silva MD Signed By: Luan Silva MD Signed Date/Time: 06/27/22 8:43 am Transcribed By: GRANT Transcribed Date/Time: 06/27/22 8:26 am * Exam Date Time Procedure Performing Provider Status 06/23/22 6:00 AM Chest Portable Meaghan Gonsales ut (Verified) Notes: (Chest Portable) Reason For Exam: Fever RESULT: Chest Portable Chest Portable Reason: Fever; Clinical Question(s): Pneumonia COMPARISON: 06/20/2022 FINDINGS: LINES AND TUBES: None. Endotracheal tube, enteric tube, and right IJ central line removed since the prior study. LUNGS AND PLEURA: Unchanged mild volume loss in the right lung. Unchanged mild opacity in the mid and upper portions of the right lung. Mild blunting of the lateral costophrenic angle consistent with small pleural effusion. Left lung remains clear. No left pleural effusion. Coarsened lung markings and left upper lung lucency consistent with emphysema No pneumothorax. HEART, MEDIASTINUM AND JAMILA: Heart is normal in size. Normal mediastinal and hilar contour. BONES AND SOFT TISSUES: No acute abnormality. Median sternotomy. Unchanged break in 1 of 7 sternal wires, unlikely significance. IMPRESSION: Unchanged volume loss/atelectasis and opacity in the right lung; it is unclear whether the opacity represents atelectasis, infiltrate, or both. Unchanged small right pleural effusion. Emphysema. WSN: [id number] Ordering Physician: Zoë Montana Dictated By: Jere Kumar MD Dictated Date/Time: 06/23/22 8:39 am Reviewed By: Jere Kumar MD Signed By: Jere Kumar MD Signed Date/Time: 06/23/22 8:39 am Transcribed By: GRANT Transcribed Date/Time: 06/23/22 8:32 am * Exam Date Time Procedure Performing Provider Status 06/20/22 4:39 PM Chest Portable Flor Moore; Auth ( Verified) Notes: (Chest Portable) Reason For Exam: Line Placement RESULT: Chest Portable Chest Portable Reason: Line Placement; Clinical Question(s): Line Placement COMPARISON: CT chest 06/20/2022 and prior's. FINDINGS: LINES AND TUBES: ET tube tip is 4.3 cm above the philip. Enteric tube terminates below the diaphragm with its side port projecting over the stomach and its tip outside the field of view. New right IJ central venous catheter, terminating at the level of the mid-SVC. Multiple wires overlie the chest. LUNGS AND PLEURA: Patient is slightly rotated towards the right. Worsening right upper lung airspace opacity. Unchanged relative loss of volume of the right lung. Probable small right pleural effusion. The left costophrenic angle is outside the field of view kate small left effusion cannot be excluded. No pneumothorax. HEART, MEDIASTINUM AND JAMILA: Heart is normal in size. Aorta is tortuous and partially calcified. BONES AND SOFT TISSUES: Fractured 3rd most cranial sternotomy wire. IMPRESSION: Appropriately placed right IJ central venous catheter with its tip in the region of the mid SVC. Worsening right upper lobe opacity with new small right pleural effusion. I have personally reviewed the images and I agree with this report. WSN: [id number] Ordering Physician: Elba Verduzco Dictated By: Jeniffer Candelaria MD Dictated Date/Time: 06/20/22 5:02 pm Reviewed By: Jack Castle MD, V Signed By: Jack Castle MD, V Signed Date/Time: 06/20/22 5:07 pm Transcribed By: GRANT Transcribed Date/Time: 06/20/22 4:57 pm * Exam Date Time Procedure Performing Provider Status 06/20/22 11:[address] Angio Chest Keara Irizarry; Auth (Verified) Notes: (CT Angio Chest) Reason For Exam: PE suspected, Intermediate prob, positive D-dimer;Other: RESULT: CT Angio Chest EXAMINATION: CT Angio Chest INDICATION: Reason: Other:; PE suspected, Intermediate prob, positive D-dimer; Clinical Question(s): Pulmonary Embolism TECHNIQUE: Spiral CTA of the chest was performed after rapid IV contrast administration without cardiac gating, triggered by an LOTUS on the main pulmonary artery. Images are formatted in multiple planes using 2-D multiplanar and 3-D maximum intensity projection. 100 cc of Omnipaque 300 was administered intravenously. Weight-based protocol using automatic tube modulation was used to optimize exposure parameters. CTDIvol Body: 7.67 mGy, DLP Body: 345 mGy*cm. COMPARISONS: CT chest from 08/07/2020 ANGIOGRAPHIC FINDINGS: No pulmonary embolism to the subsegmental level. Normal caliber pulmonary arteries. Aorta is unopacified with contrast due to contrast timing. There are moderate aortic calcifications. NON-ANGIOGRAPHIC FINDINGS: Warehouse Stocker View Findings, Lines and Tubes: Endotracheal tube tip approximately 4 cm above the philip. Enteric tube terminates in the stomach. Trachea and Airways: Patent without evidence of tracheal or endobronchial lesion. Debris within theright mainstem bronchus. Areas of mucus plugging throughout the dependent right upper lobe and bilateral lower lobes. Mild bronchial wall thickening most notable in the right lower lobe. Lungs and Pleura: Moderate upper lobe predominant emphysema. Dependent opacity in the posterior right upper lobe. Minimal focal groundglass density in the medial right lung base (604:71). Few calcified granulomas. Small moderate right pleural effusion. No left pleural effusion. No pneumothorax. Mediastinum and jamila: No mass or hematoma. Para-aortic lymph nodes measuring 11 mm and 8 mm (301:41) are similar to 08/07/2020. Unchanged 14 mm subcarinal node (301:58). 11 mm intermediate density along the right lower lobe bronchovascular bundle (301:74) is mildly increased in size from 9 mm. Some contiguous immediate density just superior to this focus, adjacent tothe right lower lobe airways (301:69) had slightly increased from 08/07/2020. No esophageal abnormality. Heart: Heart is at the upper limits of normal for size. No pericardial effusion. Severe coronary artery calcification. Left heart Chambers poorly assessed due to lack of contrast opacification. Priorcoronary artery stenting. Prior CABG. Some gas within the venous system likely iatrogenic. Chest Wall Soft Tissues: Gynecomastia. Diaphragm and upper abdomen: No significant abnormality. Accessory splenic tissue. Bones: No acute abnormality. Old rib fractures. Median sternotomy. Spine degenerative changes. IMPRESSION: No evidence of pulmonary embolism. Dependent opacity in the right upper lobe with areas of airway plugging, possibly representing a combination of atelectasis and aspiration. Small to moderate right pleural effusion. A few mildly enlarged lymph lymph nodes are similar to 08/07/2020. An 11 mm rounded density along the right lower lobe bronchovascular bundle and some contiguous immediate attenuation appears increased from 2020. Follow-up chest CT with contrast a few weeks is recommended following resolution of thepatient's acute illness to ensure no underlying soft tissue mass. A critical result message (Yellow) has been communicated via the Patient Feed system on 06/20/2022 12:26 PM, Message ID [id number]. WSN: [id number] Ordering Physician: Tyron Smith Dictated By: Jere Bryant MD Dictated Date/Time: 06/20/22 12:27 p Reviewed By: Jere Bryant MD Signed By: Jere Bryant MD Signed Date/Time: 06/20/22 12:27 pm Transcribed By: GRANT Transcribed Date/Time: 06/20/22 12:06 pm * Exam Date Time Procedure Performing Provider Status 06/20/22 11:[address] Head/Brain W/O Contrast Omayra Irizarry; Auth (Verified) Notes: (CT Head/Brain W/O Contrast) Reason For Exam: Neuro deficit, acute, stroke suspected;Other: RESULT: CT Head/Brain W/O Contrast CT Head/Brain W/O Contrast CLINICAL INDICATION: Unresponsive. PRIOR EXAMS: 12/08/2020. TECHNIQUE: Head CT was performed without intravenous contrast, using axial technique and reconstructed in axial and coronal plane. Iterative reconstruction techniques are used to optimize dose and image quality. CTDIvol Head: 42.04 mGy, DLP Head: 757 mGy*cm. FINDINGS: BRAIN: There is no infarct. There is no intracerebral hemorrhage. There is no mass. VENTRICLES, SULCI, AND CISTERNS: The ventricles and sulci are symmetrical and some cnsa-vs-vmjpmuylcwjkkiiohzgr change.. WHITE MATTER: Mild white matter abnormality.. EXTRA AXIAL SPACES: There is no abnormal epidural, subdural, or subarachnoid blood or fluid. SKULL: There is no skull fracture. There is evidence of multiple caries and multiple foci of apical root abscess associated with the upper teeth.. PARANASAL SINUSES: The communicating left frontal sinus. Sphenoid sinuses clear. Ethmoids one third opacified. Right maxillary sinus mild mucosal thickening. Left maxillary sinus probably mucosal thickening.. TEMPORAL BONES: The mastoid air cells are clear, as are the middle ear cavities. IMPRESSION: 1. No acute intracranial abnormality. 2. No skull fracture. 3. Gross abnormalities of the dentition in the visualized upper teeth, with numerous cavities and several areas of apical root abscess. WSN: [id number] Ordering Physician: Tyron Smith Dictated By: Wojciech Lutz MD Dictated Date/Time: 06/20/22 12:01 p Reviewed By: Wojciech Lutz MD Signed By: Wojciech Lutz MD Signed Date/Time: 06/20/22 12:01 pm Transcribed By: GRANT Transcribed Date/Time: 06/20/22 11:56 am * Exam Date Time Procedure Performing Provider Status 06/20/22 10:59 AM Chest Portable Estuardo , Archana; Auth ( Verified) Notes: (Chest Portable) Reason For Exam: Tube Placement RESULT: Chest Portable Chest Portable INDICATION: Tube placement. COMPARISON: 11/28/2020. FINDINGS: LINES AND TUBES: Endotracheal tube with tip approximately 5.9 cm above the philip. Enteric tube with side-port at the level of the diaphragm and tip below the field of view. LUNGS AND PLEURA: Hazy/streaky opacification of the right upper lung. Volume loss on the right indicates at least a component of atelectasis. Mild right basilar atelectasis. Small right pleural effusion. Left costophrenic angle is not within the bnutr-yw-samw, however, no evidence of large pleural effusion. No pneumothorax. HEART, MEDIASTINUM AND JAMILA: Heart is normal in size. Mild tortuosity of the aorta. Sternotomy wires overlying the mediastinum. BONES AND SOFT TISSUES: No acute abnormality. IMPRESSION: Endotracheal tube with tip approximately 5.9 cm above the philip. Enteric tube with side-port at the level of the diaphragm. Consider slight advancement for optimal placement. Hazy/streaky opacification of the right upper lung which may represent atelectasis and/or pneumonia/aspiration. Small right pleural effusion. I have personally reviewed the images and I agree with this report. WSN: [id number] Ordering Physician: Tyron Smith Dictated By: Getachew Mccain MD Dictated Date/Time: 06/20/22 11:25 a Reviewed By: Ross Ppee MD Signed By: Ross Pepe MD Signed Date/Time: 06/20/22 11:30 am Transcribed By: GRANT Transcribed Date/Time: 06/20/22 11:11 am Vital Signs Most recent to oldest [Reference Range]: 1 2 3 Height 180 cm (07/10/22 7:56 AM) 180 cm (07/10/22 3:19 AM) 180 cm (07/09/22 7:42 PM) Weight 73.6 kg (07/10/22 3:23 AM) 74.6 kg (07/09/22 5:10 AM) 74.7 kg (07/08/22 5:29 PM) Oxygen Saturation [94-100 %] 96 % (07/10/22 7:56 AM) 97 % (07/10/22 3:19 AM) 97 % (07/09/22 7:42 PM) Pulse Rate [55-90 bpm] 91 bpm *H* (07/10/22 12:00 PM) 74 bpm (07/10/22 7:56 AM) 66 bpm (07/10/22 3:19 AM) Body Mass Index [18.5-24.99 kg/m2] 23.3 kg/m2 (07/02/22 4:51 AM) 24.1 kg/m2 (06/25/22 4:27 AM) 24.14 kg/m2 (06/20/22 2:31 PM) Blood Pressure [90-138/55-84 mm Hg] 106/68mm Hg (07/10/22 12:00 PM) 113/68mm Hg (07/10/22 7:56 AM) 94/63mm Hg (07/10/22 3:19 AM) Respiratory Rate [16-30 br/min] 18 br/min (07/10/22 7:56 AM) 18 br/min (07/10/22 3:19 AM) 18 br/min (07/09/22 7:42 PM) Temperature [96.8-100.4 DegF] 97.8 DegF (07/10/22 7:56 AM) 97.6 DegF (07/10/22 3:19 AM) 97.5 DegF (07/09/22 7:42 PM) Liters per Minute 1 L/min (06/27/22 4:31 PM) 2 L/min (06/27/22 11:20 AM) 2 L/min (06/27/22 5:14 AM) Mode of Delivery (Oxygen) Room air (07/10/22 7:56 AM) Room air (07/10/22 3:19 AM) Room air (07/09/22 7:42 PM) Blood pressure sites Arm, left (07/10/22 7:56 AM) Arm, left (07/10/22 3:19 AM) Arm, right (07/09/22 7:42 PM) Temperature Route Oral (07/10/22 7:56 AM) Temporal (07/10/22 3:19 AM) Temporal (07/09/22 7:42 PM) Dry Weight 78.2 kg (06/20/22 2:31 PM) 100 kg (06/20/22 12:14 PM) 100 kg (06/20/22 12:14 PM) Weight Obtained Via Bed scale (07/10/22 3:23 AM) Bed scale (07/09/22 5:10 AM) Bed scale (07/02/22 4:51 AM) Dry Weight Obtained Via Bed scale (06/20/22 2:31 PM) Social History Social History Type Response Smoking Status 10 or more cigarette s (1/2 pack or more)/day in last 30 days entered on: 11/28/20 Sex Note * Alysia Banks: PERFORM Event Display: Discharge/Transfer Note Hospital Authored Date: [id number] Nursing Discharge Note Entered On: 07/10/2022 21:09 EDT Performed On: 07/10/2022 21:07 EDT by Alysia Banks Nursing Discharge Note 2 Discharge Time : 07/10/2022 21:04 EDT Discharge Level of Care at Discharge : Homehealth/VNA Discharge VNA/Hospice/Home Care(v001) : [facility] Patient Left Unit Via : Wheelchair Patient Accompanied Off Unit with : Responsible adult DC Instructions Provided & Signed by Pt : Yes Patient Understands D/C Instructions : Yes Patient Instructions Discharge Signed : Yes Discharge Comments : see discharge instructions Did Pt have Specialty Bed or Wound Vac : No Alysia Banks - 07/10/2022 21:07 EDT * Edelmira Macdonald DO: PERFORM, MODIFY, MODIFY, MODIFY, MODIFY, MODIFY Event Display: Discharge/Transfer Note Hospital Authored Date: [id number] Patient: ??ALBERTO LAGUNAS ? Age:??66 Years?Sex:??Male?:??1955?? Patient Information Discharge Location: M7 Primary Care Physician: Not on Staff, PCP Admit Date/Time: 06/20/22 12:38 Discharge Disposition Discharge Disposition: Home with Home Health Discharge Diagnosis Shock septic vs hypovolemic vs cardiogenic resolved CAD s/p CABG 2006 Ischemic cardiomyopathy EF 30% 2020 AF/flutter [id number] 3 Acute hypoxic respiratory failure s/p intubation 2/27-06/22 resolved Small to moderate right pleural effusion Lymphadenopathy A few mildly enlarged lymph lymph nodes are similar to 08/07/2020 11 mm density right lower lobe Schizophrenia/mood disorder Polysubstance use disorder (alcohol/cocaine/opiates) _ Discharge Medications Albuterol (Ventolin HFA 108 [...] 3.125 mg oral tablet)?3.125?Milligram?1?tablet?By Mouth?2 timesa day Furosemide (furosemide 20 mg oral tablet)?TAKE 1 TABLET BY MOUTH TWICE A DAY Lactulose (lactulose 10 gm/15 ml oral syrup)?TAKE 30 ML BY MOUTH 4 TIMES A DAY Multivitamin (Daily Jayson oral tablet)?TAKE 1 TABLET BY MOUTH EVERY DAY Naloxone (naloxone 4 mg/0.1 mL nasal spray)?4?Milligram?Nares, Both?Once Olanzapine (olanzapine 20 mg oral tablet)?1?tab(s)?20?Milligram?By Mouth?Daily Pantoprazole (pantoprazole 40 mg oral delayed release tablet)?1?tab(s)?40?Milligram?By Mouth?Daily sacubitril-valsartan (Entresto 24 mg-26 mg oral tablet)?1?tab(s)?By Mouth?2 times a day Spironolactone (spironolactone 25 mg oral tablet)?TAKE 1 TABLET BY MOUTH EVERY DAY Thiamine (Vitamin B1 100 mg oral tablet)?100?Milligram?1?tablet?By Mouth?Daily?for 10?Days umeclidinium-vilanterol (Anoro Ellipta 62.5 mcg-25 mcg/inh inhalation powder)?INHALE 1 PUFF DAILY ? Medications Started Pantoprazole for GERD Medications Discontinued None Doses Changed None PCP Follow-Up/Heads-Up The patient was exposed to COVID-19 positive patient 07/08. Hospital Course This is a 66-year-old male with history of CAD s/p CABG??(2006), paroxysmal Af/flutter on??apixaban,??ischemic cardiomyopathy (EF 30 to 35%),??COPD,??chronic hyponatremia and schizophrenia/mood disorder with alcohol/polysubstance use disorder, who was found unresponsive??and hypoxic??on 06/20/2022 by VNA. ??He was found to be in acute hypoxic respiratory failure and was intubated. The patient was in ICU with hospital course complicated by hyponatremia and shock of unclear etiology, that eventually improved. Hospital course further complicated by??heart failure exacerbation??and??COVID- 19 exposure. The patient was evaluated by physical therapy??and recommended home with services. ?? Exposure to COVID-19 07/08/2022 Starting to develop a cough and some congestion. Breathing well on room air. The patient advised??to seek help??if??he starts to experience??shortness of breath and/or notices his skin become more??blue. ?? Encouraged to stay hydrated. ?? Schizophrenia/mood disorder Polysubstance use disorder (alcohol/cocaine/opiates) Unresponsive with acute hypoxia on presentation prompting intubation. Urine toxicology positive forbenzodiazepines, no documentation of benzodiazepines administered in the ED prior to obtaining sample??however he may have received medications during intubation that were not charted. Seen by psychiatry??for paranoia/suicidal ideations??and eventually cleared on 07/08.? Recommendations: -continue PO thiamine -Continue home??olanzapine 20mg ?? GERD symptoms -Started??on pantoprazole??with improvement ?? Shock septic vs hypovolemic vs cardiogenic resolved CAD s/p CABG 2006 Ischemic cardiomyopathy EF 30% 2020 AF/flutter [id number] 3 Initially hemodynamically stable however shortly afterwards became hypotensive with episodic bradycardia requiring pressors. Unclear etiology possibly hypovolemic (hyponatremia versus septic secondary to pneumonia (RLL opacity/AMS) versus cardiogenic (POCUS with extremely limited squeeze however known ischemic cardiomyopathy with an EF of 30%.??EKG with flutter, troponin 20) TTE??poor quality but severely reduced LV function (felt to be worse than prior) ?? Recommendations: -Continue apixaban 5 mg twice daily -Continue aspirin and atorvastatin 40 mg daily -Continue carvedilol, Entresto, furosemide 20mg??BID??and spironolactone ?? Acute hypoxic respiratory failure s/p intubation 06/20-06/22 resolved Small to moderate right pleural effusion Lymphadenopathy A few mildly enlarged lymph lymph nodes are similar to 08/07/2020 11 mm density right lower lobe Found unresponsive by VNA and severely hypoxic on room air by EMS with improvement with nonrebreather. Rapidly intubated on presentation due to low GCS and unresponsiveness. Concern for underlying infectious etiology with chest x-ray showing right-sided consolidation, possibly aspiration pneumonia in the setting of intoxication versus withdrawal seizures versus underlying cardiac event. The patient was initially treated with antibiotics however ET aspirate negative and??procalcitonin low??with??discontinuation of antibiotics. Evaluated by pulmonary rehab and does not require oxygen. ?? Recommendations: -PCP to follow-up??11 mm density seen in right lower lobe ?? 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 Na 119 on presentation, now improved to 129 Objective Vital Signs?? Temperature: 97.6 DegF (07/10/22 03:19:00) Temperature Route: Temporal (07/10/22 03:19:00) Pulse Rate: 66 bpm (07/10/22 03:19:00) Respiratory Rate: 18 br/min (07/10/22 03:19:00) Systolic Blood Pressure: 94 mm Hg (07/10/22 03:19:00) Diastolic Blood Pressure: 63 mm Hg (07/10/22 03:19:00) Blood pressure sites: Arm, left (07/10/22 03:19:00) Mean Arterial Pressure: 73 mm Hg (07/10/22 03:19:00) Pulse Pressure: 31 mm Hg (07/10/22 03:19:00) Oxygen Saturation: 97 % (07/10/22 03:19:00) Mode of Delivery (Oxygen): Room air (07/10/22 03:19:00) Early Warning Score: 3 (07/10/22 03:22:50) ? . Physical Exam General Appearance: No acute distress. Respiratory: Breath sounds clear Cardiovascular: RRR, S1 and S2 regular. Gastrointestinal: Abdomen is soft, non-tender, non-distended. Neurologic: No focal neurological deficits seen with movement in all 4 extremities. Psychiatric: Appropriate and pleasant.?? Consultants Dr. Gabriel, cardiology Dr. Costello, psych Patient Education Titles Chronic Lung Disease: Helping with Treatment, For Caregivers?? Boosting Your Mental Health?? Understanding Mood Disorders?? Understanding Sepsis?? Understanding the Disease of Addiction?? Addiction: Getting Help?? Leg Swelling in Both Legs?? Heart Failure Discharge Instructions for Heart Failure?? Heart Failure Zones?? Diet, Low Salt 3gm?? Atrial Fibrillation?? COVID-19 Self Isolation Instruction?? Understanding Coronavirus Disease 2019 COVID-19?? COVID-19 Test Positive Adult?? Follow-Up Appointments Added Follow Up ?Time Frame ?Comments [facility] PCP Assignment Line [phone]?Please call this number to be assigned with a PCP. ??Please call your PCP within 2 to 3 days of discharge to make an appointment. Home Health Face to Face *Denotes mandatory yuen ?? *I certify that this patient is under my care and that I or an allowed non- physician working with me had a face to face encounter with the patient on this date:??07/10/2022 07:00 ?? *The encounter with the patient was in whole, or in part, for the following medical condition, which is the primary diagnosis(es) for home health care:??Acute hypoxic respiratory failure ? *Select the indications for the discipline/s that are being arranged for this patient. Nursing (select all that apply): [_] None [_] Medication management (reconciliation, teaching)?? [_x] Chronic disease management?? [_] Wound care and treatment?? [_] Home safety evaluation [_] Administer SQ/IM/IV medications?? [_] Cath care?? [_] Drain care?? [_] Trach or GT care?? Other _ Occupation Therapy (select all that apply): [_] None [_] ADL Management [_] Fall prevention training [_] Energy conservation [_] Cognitive training Other _ Physical Therapy (select all that apply): [_] None [x_] Functional mobility training [x_] Home exercise program to strengthen [_] Increase ROM?? [_] Falls prevention training [_] Home maintenance program for chronic disease Other _ Speech Therapy (select all that apply): [_] None [_] Swallow evaluation and training [_] Speech and language training [_] Cognitive training to process, organize, and/or recall information Other _ ? *Homebound due to (select all that apply): [_] Inability to leave home without assistance/supervision [_] Inability to ambulate without assistance [_] Pain [_x] Decreased strength and endurance [_] Unsteady gait [_] Severe SOB and fatigue [_] Impaired transfers [_] Inability to negotiate stairs [_] Limited weight bearing [_] Mental status change? *Physician Signature:??Edelmira??Mookie Macdonald, DO ?? *By signing this, I certify that I have personally evaluated the patient and agree with the findings and recommendations as documented above. ?? Results Discharge Labs BACTERIOLOGY MRSA PCR Result Positive, MRSA target DNA detected. ()?? 06/20/2022 15:15 S Aureus ??PCR Result Positive, SA target DNA detected. ()?? 06/20/2022 15:15 ?? BLOOD COUNT & DIFF WBC 5.3 k/mm3 ()?? 07/08/2022 00:19 RBC 3.50 m/mm3 (Low)?? 07/08/2022 00:19 Hgb 11.8 Gm/dL (Low)?? 07/08/2022 00:19 Hct 33.9 % (Low)?? 07/08/2022 00:19 MCV 96.9 femtoliters (High)?? 07/08/2022 00:19 MCH 33.7 pg ()?? 07/08/2022 00:19 MCHC 34.8 g/dL ()?? 07/08/2022 00:19 Platelet Count 251 k/mm3 ()?? 07/08/2022 00:19 RDW-SD 48.7 femtoliters (High)?? 07/08/2022 00:19 MPV 9.7 femtoliters ()?? 07/08/2022 00:19 Nucleated RBC (Automated) 0.0 #/100 WBC'S ()?? 07/08/2022 00:19 Abs. NRBC 0.0 k/mm3 ()?? 07/08/2022 00:19 Abs. Neut 6.4 k/mm3 ()?? 07/01/2022 10:57 Abs. Lymph 0.4 k/mm3 (Low)?? 07/01/2022 10:57 Abs. Stark 0.3 k/mm3 (Low)?? 07/01/2022 10:57 Abs. Eo 0.3 k/mm3 ()?? 07/01/2022 10:57 Abs. Baso 0.0 k/mm3 ()?? 07/01/2022 10:57 Neut % 85.7 % (High)?? 07/01/2022 10:57 Lymph % 4.9 % (Low)?? 07/01/2022 10:57 Stark % 4.6 % ()?? 07/01/2022 10:57 Eos % 3.6 % ()?? 07/01/2022 10:57 Baso % 0.4 % ()?? 07/01/2022 10:57 Hemoglobin (POC) POC Cartridge 16.0 Gm/dL ()?? 06/20/2022 19:56 Hematocrit (POC) POC Cartridge 47 % ()?? 06/20/2022 19:56 Imm Gran 0.8 % ()?? 07/01/2022 10:57 Abs. Imm Gran 0.1 k/mm3 ()?? 07/01/2022 10:57 ?? BLOOD GAS pH (POC) POC Cartridge 7.34 (Low)?? 06/20/2022 16:13 pCO2 (POC) POC Cartridge 48.1 mm Hg (High)?? 06/20/2022 16:13 pO2 (POC) POC Cartridge 112 mm Hg (High)?? 06/20/2022 16:13 Estimated Bicarbonate (POC) POC Cart 25.9 mmol/L ()?? 06/20/2022 16:13 % O2 Sat Arterial (POC) POC Cartridge 98 % ()?? 06/20/2022 16:13 FIO2 (POC) POC Cartridge 40 % ()?? 06/20/2022 16:13 pH Venous (POC) POC Cartridge 7.27 (Low)?? 06/20/2022 19:56 pCO2 Venous (POC) POC Cartridge 53.4 mm Hg (High)?? 06/20/2022 19:56 pO2 Venous (POC) POC Cartridge 33 mm Hg (Low)?? 06/20/2022 19:56 Est Bicarbonate (POC) POC Cartridge 24.5 mmol/L ()?? 06/20/2022 19:56 % O2 Sat Venous (POC) POC Cartridge 55 ()?? 06/20/2022 19:56 Base Excess (POC) POC Cartridge NEGATIVE 2 ()?? 06/20/2022 19:56 pH 7.33 (Low)?? 06/20/2022 11:56 pCO2 46 mm Hg ()?? 06/20/2022 11:56 pO2 289 mm Hg (High)?? 06/20/2022 11:56 Bicarbonate, Estimated 23 mmol/L ()?? 06/20/2022 11:56 Specimen Type - Blood Gas VENOUS ()?? 06/20/2022 19:56 Percent O2 (FIO2) 60 ()?? 06/20/2022 11:56 ?? CARDIAC Nt-Probnp 5367 pg/mL (High)?? 06/23/2022 03:55 High Sensitivity Troponin (HSTnT) 20 ng/L ()?? 06/20/2022 14:44 ?? CHEM GENERAL Sodium 129 mmol/L (Low)?? 07/08/2022 00:19 Potassium 4.2 mmol/L ()?? 07/08/2022 00:19 Chloride 93 mmol/L (Low)?? 07/08/2022 00:19 Bicarbonate Level 27 mmol/L ()?? 07/08/2022 00:19 Anion Gap 9 ()?? 07/08/2022 00:19 Sodium (POC) POC Cartridge 124 mmol/L (Low)?? 06/20/2022 19:56 Potassium (POC) POC Cartridge 4.3 mmol/L ()?? 06/20/2022 19:56 Glucose Level 109 mg/dL (High)?? 07/08/2022 00:19 Glucose (POC) POC Cartridge 93 ()?? 06/20/2022 19:56 Glucose, POC 85 mg/dL ()?? 06/22/2022 04:29 BUN 16 mg/dL ()?? 07/08/2022 00:19 Creatinine-Blood 0.7 mg/dL ()?? 07/08/2022 00:19 Estimated GFR Creatinine 101 ML/MIN/1.73 M2 ()?? 07/08/2022 00:19 Calcium 9.0 mg/dL ()?? 07/08/2022 00:19 Ionized Calcium (POC) POC Cartridge 1.18 mmol/L ()?? 06/20/2022 19:56 Phosphorus 2.2 mg/dL (Low)?? 06/23/2022 04:31 Magnesium 1.8 mg/dL ()?? 06/27/2022 00:38 Protein, Total 7.7 Gm/dL ()?? 07/01/2022 10:57 Albumin 4.4 Gm/dL ()?? 07/01/2022 10:57 AG Ratio 1.5 ()?? 06/20/2022 14:44 Alkaline Phosphatase 157 units/L (High)?? 07/01/2022 10:57 AST (SGOT) 29 units/L ()?? 07/01/2022 10:57 ALT (SGPT) 22 units/L ()?? 07/01/2022 10:57 Bilirubin, Total 1.4 mg/dL (High)?? 07/01/2022 10:57 Bilirubin, Direct 0.4 mg/dL (High)?? 07/01/2022 10:57 Bilirubin, Indirect 1.0 mg/dL (High)?? 07/01/2022 10:57 Lactate 1.8 mmol/L ()?? 06/20/2022 11:07 ? ENDOCRINE/TUMOR MARKER TSH 5.91 uIU/mL (High)?? 06/20/2022 10:32 Total T4 7.6 ??g/dL ()?? 06/20/2022 10:32 T3, Total 91.9 ng/dL ()?? 06/20/2022 10:32 Cortisol Level 13.4 ??g/dL ()?? 06/21/2022 04:26 ?? HEME OTHER Hold Lavender Top SPECIMEN DISCARDED AFTER 24 HOURS. ()?? 07/03/2022 05:47 Hold Blue Top SPECIMEN DISCARDED AFTER 4 HOURS. ()?? 06/20/2022 11:07 ?? MISC. CHEMISTRY Ammonia, Venous 47 ??mole/L ()?? 06/20/2022 16:12 Procalcitonin 0.08 ng/mL ()?? 06/22/2022 04:26 ?? SEROLOGY INF DISEASE Legionella pneumophila Antigen NEGATIVE ()?? 06/21/2022 02:02 S. Pneumococcus Urinary Ag NEGATIVE ()?? 06/21/2022 02:02 ?? TOXICOLOGY/TDM Ethanol, Serum or Plasma NONE DETECTED mg/dL ()?? 06/20/2022 14:44 Barbiturate Screen, Urine NONE DETECTED ()?? 06/20/2022 15:15 Cannabinoid Screen, Urine NONE DETECTED ()?? 06/20/2022 15:15 Cocaine Metabolite Screen, Urine NONE DETECTED ()?? 06/20/2022 15:15 Benzodiazepine Screen, Urine POSITIVE (Abnormal)?? 06/20/2022 15:15 Amphetamine Screen, Urine NONE DETECTED ()?? 06/20/2022 15:15 Opiate Screen, Urine NONE DETECTED ()?? 06/20/2022 15:15 Oxycodone Screen, Urine NONE DETECTED ()?? 06/20/2022 15:15 Buprenorphine Screen with Reflex, Urine NONE DETECTED ()?? 06/20/2022 15:15 Fentanyl Screen, Urine Result POSITIVE (Abnormal)?? 06/20/2022 15:15 ?? UA/URINALYSIS Appear/Color, Urine LIGHT YELLOW ()?? 06/20/2022 15:15 Specific [place], Urine >1.050 (High)?? 06/20/2022 15:15 pH, Urine 6.5 ()?? 06/20/2022 15:15 Albumin, Urine TRACE (Abnormal)?? 06/20/2022 15:15 Glucose, Urine NEGATIVE ()?? 06/20/2022 15:15 Ketones, Urine TRACE (Abnormal)?? 06/20/2022 15:15 Bilirubin, Urine NEGATIVE ()?? 06/20/2022 15:15 Hemoglobin, Urine NEGATIVE ()?? 06/20/2022 15:15 Nitrite, Urine NEGATIVE ()?? 06/20/2022 15:15 Leukocyte, Urine NEGATIVE ()?? 06/20/2022 15:15 Urobilinogen NORMAL mg/dL ()?? 06/20/2022 15:15 WBC's, Urine 3 /HPF ()?? 06/20/2022 15:15 RBC's, Urine NONE SEEN /HPF ()?? 06/20/2022 15:15 Mucus SLIGHT /LPF ()?? 06/20/2022 15:15 ?? URINE OTHER Sodium, Urine Random 66 mmol/L ()?? 06/21/2022 09:50 Osmolality, Urine Random 710 mOsm/kg ()?? 06/21/2022 09:50 ?? VIROLOGY Influenza A PCR NEGATIVE ()?? 06/20/2022 12:24 Influenza B PCR NEGATIVE ()?? 06/20/2022 12:24 RSV PCR NEGATIVE ()?? 06/20/2022 12:24 COVID-19 PCR Specimen Source NASAL ()?? 07/07/2022 06:16 COVID-19 PCR Result NEGATIVE ()?? 07/07/2022 06:16 ? 20??minutes spent on discharge. ? Patient reviewed with supervising??attending Shruthi. ?? Edelmira Macdonald, DO Internal Medicine, PGY-1 Pager# [phone] * Shruthi AZRCO, Lisa N: PERFORM Event Display: Discharge/Transfer Note Hospital Authored Date: [id number] Attending Attestation: I have??seen and evaluated??ALBERTO LAGUNAS, on 07/10/22. ??I have??reviewed the patient???s medical history, findings on examination, diagnosis, and treatment. I have discussed the case and its management with the resident and agree with the findings and plan as documented in the resident???s note.? _ ? * Ananda HERRERA, Alberto: PERFORM, MODIFY Event Display: Patient Education/Instruction Authored Date: [id number] Inpatient Adult Discharge Instructions [address] [address] Name: ALBERTO LAGUNAS : 1955 Visit: 06/20/2022 12:38:00 Current Date: 07/10/2022 17:04 Account: [id number] Inpatient Adult Discharge Instructions We would like [...] and their families. Surveys are administered by [employer] ?? If further treatment with your primary care physician or another doctor is recommended, it is important for you to keep the appointment. Call your primary care physician or return to the Emergency Department immediately if your condition worsens, fails to improve, or new symptoms develop. If you need to find a doctor, you can call [facility] for a referral at [phone] or toll free at [phone] or log in to [email or web address].. ?? You can view and manage your care through the patient portal or by using a health care suzanne of your choosing. [employer] is a website that allows you to securely view your medical information including your hospital discharge summary, office visit summaries, medications and follow-up visits. You can also request appointments, renew medications, and request access to your medical information using a health care suzanne of your choosing, or just ask a question. You can enroll at [email or web address] or register during your next office visit. You have been discharged from [facility], Patient Care Unit: M7. If you have any questions regarding these instructions after you leave, please call us and we will be happy to assist you. [facility] Your Care Team Attending Physician Shruthi ZARCO, Lisa Chu Consulting Providers Pravin ZARCO, Re Discharging Providers Edelmira Macdonald DO A Reason for Admission General medical Your Diagnosis Pneumonia Tests Performed Below is a partial list of the tests performed during your hospitalization. You may have had other tests and procedures not included in this list. Please discuss all test results with your provider. ABG POC CARTRIDGE Alcohol Level AMMONIA, VENOUS BASE EXCESS POC CARTRIDGE Basic Metabolic Panel Blood Gas Arterial Blood Urea Nitrogen BUN Buprenorphine Screen w/Confirm, Urine CALCIUM IONIZED POC CART CBC CBC w/ Differential Comprehensive Metabolic Panel Cortisol Level COVID-19 (NOVEL CORONAVIRUS), PCR COVID-19, RSV, and Flu A/B, Rapid PCR Creatinine Electrolytes Fentanyl Screen, Urine GLUCOSE POC GLUCOSE POC CARTRIDGE HEMATOCRIT POC CARTRIDGE HEMOGLOBIN POC CARTRIDGE HEPATIC FUNCTION PANEL High??Sensitivity??Troponin T HOLD BLUE TUBE HOLD LAVENDER TUBE ISTAT O2SAT Lactate Level Legionella Antigen Urine Lytes Magnesium Level MRSA PCR Nasal Swab O2 PERCENT (POINT OF CARE) Opiate Screen Urine OSMOLALITY, URINE RANDOM Phosphorus Level PO2 VENOUS POC CARTRIDGE POTASSIUM POC CARTRIDGE PROBNP PROCALCITONIN, SERUM SODIUM POC CARTRIDGE SODIUM, URINE MMOL/L Strep Pneumoniae Urinary Ag TOTAL T3 TOTAL T4 Troponin T, High Sensitivity TSH UA Urine Amphetamine Screen Urine Barbiturate Screen Urine Benzodiazepine Screen Urine Cannabinoid Screen Urine Cocaine Screen Urine Na Urine Osmolality Urine Oxycodone Screen VBG POC CARTRIDGE CT Abd/Pelvis W/ IV Contrast Only CT Angio Chest CT Head/Brain W/O Contrast CXR Portable Portable Chest Primary Care Provider Not on Staff, PCP Advance Directive Health Care Proxy on File Yes - Health Care Proxy Discharge Vitals Temperature: 97.8 DegF Height: 180 cm Pulse Rate:??91 bpm??High Weight: 73.6 kg Respiratory Rate: 18 br/min Body Mass Index: 23.3 kg/m2 Systolic Blood Pressure: 106 mm Hg Body surface area: 1.94 Diastolic Blood Pressure: 68 mm Hg ?? Oxygen Saturation: 96 % ?? Studies Pending All tests and labs ordered during this hospital stay have been completed unless listed below. Please discuss all pending results with your provider listed above in these instructions. ?? Add On Lab Order Ammonia Arterial COVID-19 (2019 Novel Coronavirus) PCR Hepatic Function Panel (LFT's) Urinalysis w/hold for Urine Culture What to do next Instructions From Your Doctor Discharge Orders You Need to Schedule the Following Appointments Follow Up with??[facility] PCP Assignment Line [phone] When?? Why: Please call this number to be assigned with a PCP. ??Please call your PCP within 2 to 3 days of discharge to make an appointment. Discharge Medications ALBERTO LAGUNAS :1955 Visit Date:06/20/2022 Medications: Please continue your medications until treatment is completed or stopped by your provider. Medications not listed below should be discontinued. Discuss any questions related to medications with your provider. What How Much When Instructions Next Dose Changed Albuterol (Ventolin HFA 108 mcg/ inh inhalation aerosol with adapter) 1 puff(s) Inhalation 4 times a day as needed for for wheezing take as prescribed ?? Changed Atorvastatin (atorvastatin 40 mg oral tablet) 1 tab(s) Oral Daily next dose tonight 07/10 Changed Pantoprazole (pantoprazole 40 mg oral delayed release tablet) 1 tab(s) Oral Daily Pickup at [facility] next dose tomorrow 07/11 Changed Thiamine (Vitamin B1 100 mg oral tablet) 1 tab(s) Oral Daily Duration: 10 Days ??next dose tomorrow 07/11 Unchanged Albuterol/ Ipratropium (albuterol-ipratropium 3 mg-0.5 mg/ 3 ml inhalation solution) 3 Milliliter Inhalation 4 times a day next dose tonight 07/10 Unchanged apixaban (Eliquis 5 mg oral tablet) TAKE 1 TABLET BY MOUTH 2 TIMES DAILY. ?? next dose tonight 07/10 Unchanged Aspirin (aspirin 81 mg oral tablet, chewable) 1 tab(s) Oral Daily next dose tomorrow 07/11 Unchanged Carvedilol (Coreg 3.125 mg oral tablet) 1 tab(s) Oral Twice a day next dose tonight 07/10 Unchanged Furosemide (furosemide 20 mg oral tablet) TAKE 1 TABLET BY MOUTH TWICE A DAY ?? next dose tonight 07/10 Unchanged Lactulose (lactulose 10 gm/ 15 ml oral syrup) TAKE 30 ML BY MOUTH 4 TIMES A DAY ?? next dose tonight 07/10 Unchanged Multivitamin (Daily Jayson oral tablet) TAKE 1 TABLET BY MOUTH EVERY DAY ?? next dose tomorrow 07/11 Unchanged Naloxone (naloxone 4 mg/ 0.1 mL nasal spray) 4 Milligram Nares, Both Once use as prescribed Unchanged Olanzapine (olanzapine 20 mg oral tablet) 1 tab(s) Oral Daily take as prescribed tomorrow 07/11 Unchanged sacubitril-valsartan (Entresto 24 mg-26 mg oral tablet) 1 tab(s) Oral Twice a day next dose tonight 07/10 Unchanged Spironolactone (spironolactone 25 mg oral tablet) TAKE 1 TABLET BY MOUTH EVERY DAY ?? next dose tomorrow 07/11 Unchanged umeclidinium-vilanterol (Anoro Ellipta 62.5 mcg-25 mcg/ inh inhalation powder) INHALE 1 PUFF DAILY ?? next dose tomorrow 07/11 [facility] [address], [place] [id number] [phone] ?? What How Much When Comments Stop Taking Acamprosate (acamprosate 333 mg oral delayed release tablet) 2 tab(s) Oral 3 times a day Stop Taking Budesonide-Formoterol (Symbicort 160mcg/ 4.5mcg Inhaler) 2 puff(s) Inhalation Twice a day Stop Taking Divalproex Sodium (divalproex sodium 250 mg oral enteric coated tablet) TAKE 1 TABLET BY MOUTH TWICE A DAY ?? Stop Taking Folic Acid (folic acid 1 mg oral tablet) 1 tab(s) Oral Daily Stop Taking Losartan (losartan 25 mg oral tablet) 1 tab(s) Oral Daily Stop Taking Miscellaneous Rx (chem 7 (BMP) in 1 - 2 weeks. Please send results to [facility] & Dr. Fisher's) See instructions chem 7 (BMP) in 1 - 2 ??weeks. Please send results to Brandie Randolph's office ??& Dr. Fisher's office ?? Stop Taking Nicotine (nicotine 14 mg/ 24 hr transdermal film, extended release) 1 patch(es) Topically Daily after completing 6 weeks of 21mg nicotine patch, take 14mg patch daily for 2 weeks ?? Stop Taking Nicotine (Nicotine 7 mg/ 24 hour patch) 1 patch(es) Topically Daily Take 7mg patch/ day after completing 6 weeks of 21mg patch, and 2 weeks of 14mg patch ?? Stop Taking rivaroxaban (rivaroxaban 20 mg oral tablet) 20 Milligram Oral Daily at supper Duration: 30 Days Stop Taking Sertraline (sertraline 100 mg oral tablet) 1 tab(s) Oral Daily TAKE 1 TABLET BY MOUTH EVERY DAY ?? Stop Taking Tiotropium (Spiriva HandiHaler 18 mcg inhalation capsule) 1 capsule Inhalation Daily Test Results Below is a partial list of the most recent Laboratory test results done prior to this discharge. You may have had other tests and procedures not included in this list. Please discuss all test resultswith your provider. ABG POC CARTRIDGE (06/20/2022) ???pH (POC) POC Cartridge - 7.34???pCO2 (POC) POC Cartridge - 48.1 mm Hg???pO2 (POC) POC Cartridge - 112 mm Hg???Estimated Bicarbonate (POC) POC Cart - 25.9 mmol/L???% O2 Sat Arterial (POC) POC Cartridge - 98 %???Specimen Type - Blood Gas - ARTERIAL Alcohol Level (06/20/2022) ???Ethanol, Serum or Plasma - NONE DETECTED AMMONIA, VENOUS (06/20/2022) ???Ammonia, Venous - 47 ??mole/L BASE EXCESS POC CARTRIDGE (06/20/2022) ???Base Excess (POC) POC Cartridge - NEGATIVE 2 Basic Metabolic Panel (07/08/2022) ???Sodium - 129 mmol/L???Potassium - 4.2 mmol/L???Chloride - 93 mmol/L???Bicarbonate Level - 27 mmol/L???Anion Gap - 9???Glucose Level - 109 mg/dL???BUN - 16 mg/dL???Creatinine-Blood - 0.7 mg/dL???Estimated GFR Creatinine - 101 ML/MIN/1.73 M2???Calcium - 9.0 mg/dL Blood Gas Arterial (06/20/2022) ???pH - 7.33???pCO2 - 46 mm Hg???pO2 - 289 mm Hg???Bicarbonate, Estimated - 23 mmol/L???Specimen Type - Blood Gas - ARTERIAL???Percent O2 (FIO2) - 60 Blood Urea Nitrogen (06/27/2022) ???BUN - 16 mg/dL BUN (07/03/2022) ???BUN - 22 mg/dL Buprenorphine Screen w/Confirm, Urine (06/20/2022) ???Buprenorphine Screen with Reflex, Urine - NONE DETECTED CALCIUM IONIZED POC CART (06/20/2022) ???Ionized Calcium (POC) POC Cartridge - 1.18 mmol/L CBC (07/08/2022) ???WBC - 5.3 k/mm3???RBC - 3.50 m/mm3???Hgb - 11.8 Gm/dL???Hct - 33.9 %???MCV - 96.9 femtoliters???MCH - 33.7 pg???MCHC - 34.8 g/dL???Platelet Count - 251 k/mm3???RDW-SD - 48.7 femtoliters???MPV - 9.7 femtoliters???Nucleated RBC (Automated) - 0.0 #/100 WBC'S???Abs. NRBC - 0.0 k/mm3 CBC w/ Differential (07/01/2022) ???WBC - 7.4 k/mm3???RBC - 4.35 m/mm3???Hgb - 14.8 Gm/dL???Hct - 41.5 %???MCV - 95.4 femtoliters???MCH - 34.0 pg???MCHC - 35.7 g/dL???Platelet Count - 198 k/mm3???RDW-SD - 44.7 femtoliters???MPV - 9.5 femtoliters???Nucleated RBC (Automated) - 0.0 #/100 WBC'S???Abs. NRBC - 0.0 k/mm3???Abs. Neut - 6.4 k/mm3???Abs. Lymph - 0.4 k/mm3???Abs. Stark - 0.3 k/mm3???Abs. Eo - 0.3 k/mm3???Abs. Baso - 0.0 k/mm3???Neut % - 85.7 %???Lymph % - 4.9 %???Stark % - 4.6 %???Eos % - 3.6 %???Baso % - 0.4 %???Imm Gran - 0.8 %???Abs. Imm Gran - 0.1 k/mm3 Comprehensive Metabolic Panel (06/20/2022) ???Sodium - 119 mmol/L???Potassium - 3.8 mmol/L???Chloride - 84 mmol/L???Bicarbonate Level - 26 mmol/L???Anion Gap - 9???Glucose Level - 155 mg/dL???BUN - 12 mg/dL???Creatinine-Blood - 0.5 mg/dL???Estimated GFR Creatinine - 111 ML/MIN/1.73 M2???Calcium - 8.6 mg/dL???Protein, Total - 6.5 Gm/dL???Albu min - 3.9 Gm/dL???AG Ratio - 1.5???Alkaline Phosphatase - 172 units/L???AST (SGOT) - 25 units/L???ALT (SGPT) - 20 units/L???Bilirubin, Total - 1.0 mg/dL Cortisol Level (06/21/2022) ???Cortisol Level - 13.4 ??g/dL COVID-19 (NOVEL CORONAVIRUS), PCR (07/10/2022) ???COVID-19 by RT-PCR - POSITIVE COVID-19, RSV, and Flu A/B, Rapid PCR (06/20/2022) ???Influenza A PCR - NEGATIVE???Influenza B PCR - NEGATIVE???RSV PCR - NEGATIVE???COVID-19 PCR Specimen Source - NASAL???COVID-19 PCR Result - NEGATIVE Creatinine (07/03/2022) ???Creatinine-Blood - 0.7 mg/dL???Estimated GFR Creatinine - 102 ML/MIN/1.73 M2 Electrolytes (07/03/2022) ???Sodium - 128 mmol/L???Potassium - 4.2 mmol/L???Chloride - 93 mmol/L???Bicarbonate Level - 27 mmol/L???Anion Gap - 8 Fentanyl Screen, Urine (06/20/2022) ???Fentanyl Screen, Urine Result - POSITIVE GLUCOSE POC (06/22/2022) ???Glucose, POC - 85 mg/dL GLUCOSE POC CARTRIDGE (06/20/2022) ???Glucose (POC) POC Cartridge - 93 HEMATOCRIT POC CARTRIDGE (06/20/2022) ???Hematocrit (POC) POC Cartridge - 47 % HEMOGLOBIN POC CARTRIDGE (06/20/2022) ???Hemoglobin (POC) POC Cartridge - 16.0 Gm/dL HEPATIC FUNCTION PANEL (07/01/2022) ???Protein, Total - 7.7 Gm/dL???Albumin - 4.4 Gm/dL???Alkaline Phosphatase - 157 units/L???AST (SGOT) - 29 units/L???ALT (SGPT) - 22 units/L???Bilirubin, Total - 1.4 mg/dL???Bilirubin, Direct - 0.4 mg/dL???Bilirubin, Indirect - 1.0 mg/dL High??Sensitivity??Troponin T (06/20/2022) ???High Sensitivity Troponin (HSTnT) - 20 ng/L HOLD BLUE TUBE (06/20/2022) ???Hold Blue Top - SPECIMEN DISCARDED AFTER 4 HOURS. HOLD LAVENDER TUBE (07/03/2022) ???Hold Lavender Top - SPECIMEN DISCARDED AFTER 24 HOURS. ISTAT O2SAT (06/20/2022) ???% O2 Sat Venous (POC) POC Cartridge - 49 Lactate Level (06/20/2022) ???Lactate - 1.8 mmol/L Legionella Antigen Urine (06/21/2022) ???Legionella pneumophila Antigen - NEGATIVE Lytes (06/21/2022) ???Sodium - 123 mmol/L???Potassium - 4.1 mmol/L???Chloride - 92 mmol/L???Bicarbonate Level - 24 mmol/L???Anion Gap - 7 Magnesium Level (06/27/2022) ???Magnesium - 1.8 mg/dL MRSA PCR Nasal Swab (06/20/2022) ???MRSA PCR Result - Positive, MRSA target DNA detected.???S Aureus PCR Result - Positive, SA target DNA detected. O2 PERCENT (POINT OF CARE) (06/20/2022) ???FIO2 (POC) POC Cartridge - 40 % Opiate Screen Urine (06/20/2022) ???Opiate Screen, Urine - NONE DETECTED OSMOLALITY, URINE RANDOM (06/20/2022) ???Osmolality, Urine Random - 406 mOsm/kg Phosphorus Level (06/23/2022) ???Phosphorus - 2.2 mg/dL PO2 VENOUS POC CARTRIDGE (06/20/2022) ???pO2 Venous (POC) POC Cartridge - 29 mm Hg POTASSIUM POC CARTRIDGE (06/20/2022) ???Potassium (POC) POC Cartridge - 4.3 mmol/L PROBNP (06/23/2022) ???Nt-Probnp - 5367 pg/mL PROCALCITONIN, SERUM (06/22/2022) ???Procalcitonin - 0.08 ng/mL SODIUM POC CARTRIDGE (06/20/2022) ???Sodium (POC) POC Cartridge - 124 mmol/L SODIUM, URINE MMOL/L (06/20/2022) ? ?Sodium, Urine Random - <20 mmol/L Strep Pneumoniae Urinary Ag (06/21/2022) ???S. Pneumococcus Urinary Ag - NEGATIVE TOTAL T3 (06/20/2022) ???T3, Total - 91.9 ng/dL TOTAL T4 (06/20/2022) ???Total T4 - 7.6 ??g/dL Troponin T, High Sensitivity (06/20/2022) ???High Sensitivity Troponin (HSTnT) - HEMOLYZED TSH (06/20/2022) ???TSH - 5.91 uIU/mL UA (06/20/2022) ? ?Appear/Color, Urine - LIGHT YELLOW? ?Specific [place], Urine - >1.050? ?pH, Urine - 6.5? ?Albumin, Urine - TRACE???Glucose, Urine - NEGATIVE???Ketones, Urine - TRACE???Bilirubin, Urine - NEGATIVE???Hemoglobin, Urine - NEGATIVE???Nitrite, Urine - NEGATIVE???Leukocyte, Urine - NEGATIVE???Urobilinogen - NORMAL???WBC's, Urine - 3 /HPF???RBC's, Urine - NONE SEEN???Mucus - SLIGHT Urine Amphetamine Screen (06/20/2022) ???Amphetamine Screen, Urine - NONE DETECTED Urine Barbiturate Screen (06/20/2022) ???Barbiturate Screen, Urine - NONE DETECTED Urine Benzodiazepine Screen (06/20/2022) ???Benzodiazepine Screen, Urine - POSITIVE Urine Cannabinoid Screen (06/20/2022) ???Cannabinoid Screen, Urine - NONE DETECTED Urine Cocaine Screen (06/20/2022) ???Cocaine Metabolite Screen, Urine - NONE DETECTED Urine Na (06/21/2022) ???Sodium, Urine Random - 66 mmol/L Urine Osmolality (06/21/2022) ???Osmolality, Urine Random - 710 mOsm/kg Urine Oxycodone Screen (06/20/2022) ???Oxycodone Screen, Urine - NONE DETECTED VBG POC CARTRIDGE (06/20/2022) ???pH Venous (POC) POC Cartridge - 7.27???pCO2 Venous (POC) POC Cartridge - 53.4 mm Hg???pO2 Venous(POC) POC Cartridge - 33 mm Hg???Est Bicarbonate (POC) POC Cartridge - 24.5 mmol/L???% O2 Sat Venous (POC) POC Cartridge - 55???Specimen Type - Blood Gas - VENOUS Allergies (NKA means No Known Allergies) NKA Problems Active Problems??(7) CAD (coronary artery disease)?? COPD with emphysema?? HTN (hypertension)?? Hyperlipidemia?? Mood disorder?? Polysubstance abuse?? Tobacco use?? Education Materials Below is the list of Educational Leaflet Providered with your Discharge Instructions. Chronic Lung Disease: Helping with Treatment, For Caregivers?? Boosting Your Mental Health?? Understanding Mood Disorders?? Understanding Sepsis?? Understanding the Disease of Addiction?? Addiction: Getting Help?? Leg Swelling in Both Legs?? Heart Failure Discharge Instructions for Heart Failure?? Heart Failure Zones?? Diet, Low Salt 3gm?? Atrial Fibrillation?? COVID-19 Self Isolation Instruction?? Understanding Coronavirus Disease 2019 COVID19?? COVID-19 Test Positive Adult?? Valuables and Belongings I fully understand and agree that [facility] accepts no responsibility for all my personal [...] patient Date for Pt to Sign Valuables/Belongings: 06/22/22 14:13:00 ?? Other Discharge Information ?? Wound Assessment?? Wound Assessment?? Wound Location I: [place], right ?? Case Management Discharge Plan?? Discharge Plan?? Discharge Agency Information?? Discharge Level of Care at Discharge: Homehealth/VNA Service Categories #1: Physical Therapy, Halfway Discharge VNA/Hospice/Home Care: [facility] Comments #1: The agency will contact you after discharge to resume home services ?? Pulmonary Rehab Status?? Pulmonary Rehab Discharge Status?? Respiratory Rate: 18 br/min PEEP: 5 ? Common Emergency Awareness Tips IS IT [...] are strongly encouraged to quit. Please call [facility] at [phone] or [phone] or log in to [email or web address] for referrals to smoking cessation programs. ?? The National Suicide Prevention Hotline is available 14/11 if you or someone you know needs to find a reason to keep living. By calling 8-760-195-eTask.it (7180) you'll be connected to a skilled, trained counselor at a crisis center in your area. INPATIENT DISCHARGE INSTRUCTIONS SIGNATURE ALBERTO BARRETO Location:[facility] Registration Date and Time:06/20/2022 12:38 EST Primary Care Physician: Not on Staff, PCP ALBERTO LANG, have received the above patient education materials/instructions and have verbalized understanding. If ambulance or transport services are being used I further acknowledge being given a choice of service. ?? If you need to contact me, please call me at this number: . Patient/Double Reamer Operator Name: Patient/Double Reamer Operator Signature: Relationship to Patient: Witness Name/Signature: Date: * Alberto Malave RN: PERFORM Event Display: Patient Education Leaflets Authored Date: [id number] Pantoprazole Delayed Release Oral Tablet ?? [id number] Pantoprazole Delayed Release Oral Tablet Brands: Protonix Uses This medicine is used for the following purposes: ??? indigestion ??? inflammation of stomach ??? inflammation of the esophagus ??? stomach acid ??? stomach acid reflux ??? ulcers in stomach or intestines ??? ulcers in stomach or intestines ?? Instructions Swallow the medicine without crushing or chewing it. This medicine may be taken with or without food. Store at room temperature away from [...] about all medicines taken. Include prescription and epbo-nbk-nvrukhi medicines, vitamins, and herbal medicines. Speak with your doctor or pharmacist before starting or stopping any medicine. Tell your doctor if symptoms do not get better or if they get worse. This medicine may affect the strength of your bones. If you have or are at increased risk for osteoporosis (weakening of the bones), your doctor may recommend foods with calcium and vitamin D. You may need vitamin and mineral supplements while on this medicine. Please speak with your doctor or pharmacist. ?? Cautions Tell your doctor and pharmacist if you ever had an allergic reaction to a medicine. Do not use the medication any more than instructed. Contact your doctor if you notice a change in the amount or darkening of your urine. Please tell your doctor if you have moderate to severe diarrhea while on this medicine. Do not treat the diarrhea with dkpt-wfm-njugeqo diarrhea medicine. Tell the doctor or pharmacist if you are , planning to be , or . Do not share this medicine with anyone who has not been prescribed this medicine. Some patients have serious side effects from this medicine. Ask your pharmacist to show you the information from the Food and Drug Administration (FDA) and discuss it with you. ?? Side Effects The following is a list of some common side effects from this medicine. Please speak with your doctor about what you should do if you experience these or other side effects. ??? diarrhea ??? headaches ??? stomach upset or abdominal pain Call your doctor or get medical help right away if you notice any of these more serious side effects: ??? abdominal cramps ??? severe or persistent abdominal pain ??? severe, watery or bloody diarrhea ??? fever ??? numbness or tingling in hands and feet ??? fast or irregular heart beats ??? pain in the joints ??? muscle aches, spasms or abnormal movements ??? butterfly-shaped rash on nose and cheeks ??? seizures ??? blood in stool ??? unusual or unexplained tiredness or weakness A few people may have an allergic reaction to this medicine. Symptoms can include difficulty breathing, skin rash, itching, swelling, or severe dizziness. If you notice any of these symptoms, seek medical help quickly. ?? Extra Please speak with your doctor, nurse, or pharmacist if you have any questions about this medicine. ?? [email or web address] IMPORTANT NOTE: This document tells you briefly how to take your medicine, but it does not tell youall there is to know about it. Your doctor or pharmacist may give you other documents about your medicine. Please talk to them if you have any questions. Always follow their advice. There is a more complete description of this medicine available in Burmese. Scan this code on your smartphone or tablet or use the web address below. You can also ask your pharmacist for a printout. If you have any questions, please ask your pharmacist. The display and use of this drug information is subject to Terms of Use. Copyright(c) 2022 [facility]. ?? [employer]. All rights reserved. This information is not intended as a substitute for professional medical care. Always follow your healthcare professional's instructions. ?? * Beny Klein RN: PERFORM Event Display: Patient Education Leaflets Authored Date: [id number] Chronic Lung Disease: Helping with Treatment, For Caregivers ?? 51106 Chronic Lung Disease: Helping with Treatment, For Caregivers For someone with chronic lung disease, visits with the healthcare provider are nj for good health.Encourage your loved one to take the lead in their care. Then offer support as needed. Work closelywith the healthcare team. Make sure all appointments are kept. Also help make sure that treatment instructions are followed. The healthcare team Many providers can take part in treating chronic lung disease. Get to know these providers and whatthey do. This will help you feel better about asking questions. ??? Nuclear Plant Construction Worker. Specialist focused on lung problems. May work with a primary healthcare provider to guide the treatment plan. ??? Respiratory therapist. Assesses breathing skills. Teaches breathing methods to ease symptoms. ??? Physical therapist. Teaches energy-saving methods. Oversees exercise and physical activity. ??? Nurse. Helps with all types of care. Can help answer questions. Puts treatment plans into action. ??? Socialworker or case investigator. Helps with paperwork. Answers questions about healthcare issues. Can also give referrals to needed services. ??? Pharmacist. Fills prescriptions. Also gives information about medicines and how to take them safely. ??? Active Directory Specialist. Helps with the person's nutrition needs. ??? Double Reamer Operator from a home healthcare company. Helps with equipment needed for treatment, such as o xygen. Can set up equipment and show how it's used. ?? Visits to the healthcare provider Go to provider visits with your loved one. To make the most of these visits, work together to: ??? Keep a file for health records. Include all medicines that are taken. Gather as much health history as you can. Bring the file with you to the provider???s visit. ??? Keep track of changes in symptoms, diet, and physical activity. ??? Make a list of questions and concerns. Make sure these are addressed before you leave the provider???s office. ??? Write down what the provider says. Bring a notepador use an electronic device to do this. ?? Common treatments Learn the names of your loved one's medications. Try to learn about your loved one???s treatment. This helps you support good care habits. Here are some common treatments: ??? Medicines. These??help manage symptoms. Learn the names of any medicinesgiven. Learn how they work and when they're taken. Some medicines need a special device. This may be an inhaler or nebulizer. Know how to use these devices. Go over the correct technique with the healthcare provider. ??? Oxygen therapy. This??helps improve breathing. If oxygen is needed, follow allsafety guidelines. ??? Pulmonary rehab (rehabilitation). This program trains people on exercise, emotional support, and managing symptoms. Team members often include healthcare providers, respiratory therapists, and physical therapists. Go to sessions with your loved one when you can. ??? Nutritiontherapy. Diet changes can help manage chronic lung disease. Hearing Care Practitioner often work on finding changes that may be helpful. ?? When to call the healthcare provider Call the healthcare provider right away if your loved one has: ??? Slightly more shortness of breath, wheezing, or coughing ??? Mucus has increased, changed color, or is bloody ??? Tightness in the chest that won???t go away. This is similar to what's occurred before from COPD. ??? A fever of 100.4??F (38??C) or higher, or as directed by the provider ??? Chills ??? Feeling more tired and worn out(fatigue) ?? Call 911 Call 911 if any of these occur: ??? Severe shortness of breath ??? A large amount of blood in the mucus that's coughed up ??? Tightness or pain in the chest that's new or different, or that gets worse ?? Last Reviewed Date: 2021 ?? 2194-[address] [employer]. All rights reserved. This information is not intended as a substitute for professional medical care. Always follow your healthcare professional's instructions. ?? * Beny Klein RN: PERFORM Event Display: Patient Education Leaflets Authored Date: Boosting Your Mental Health ?? 1545 Boosting Your Mental Health You know that you need to eat healthy foods and get some exercise to feel good and live longer. Another nj to living longer is good mental health. Good mental health is just as important as good physical health. But we all face changes in life that can challenge our emotional well-being. For example, even if you always looked forward to shelter, you might miss working. Or maybe you've moved and you miss your old friends. Whatever happens in your life, make your mental health a priority. You'll feel better and deal withstress better. These ideas can keep your spirits up: ??? Stay in touch with family and friends. Maintaining relationships is good for your mental health. Call and visit your children or grandchildren. If you don't have family or friends nearby, join a local islam or buddhism, or a community organization. ??? Give yourself time to adjust to big lifechanges. This includes not only obvious negative events, like the of your spouse or a friend,but also positive events like moving or retiring. These can be accompanied by a sense of loss. Grieving any loss is natural and necessary. ??? Keep busy with mentally stimulating activities. Considervolunteering or taking a class. Explore new interests like learning another language. ??? Consider g etting a pet. A pet can be a wonderful student services coordinator. Pet owners get more exercise and have more socialcontact than those without a pet. ??? Exercise. Take a walk or ride a bike. Exercise improves how you feel mentally, as well as physically. ??? Get enough sleep. Lack of sleep can contribute to depression. Try to get as much sleep as you need. Although we often say that a person needs about 8 hours of sleep per night, this is only an average number. Some people find they need more. It's importantthat you find out for yourself how many hours you need for restful and restorative sleep. ??? Practice optimism and good humor. A positive attitude and laughter boost your mood. Spend time with people who make you laugh. Rent funny movies. ??? Be open to learning about new technology and what aspects of it may fit with your lifestyle and interests. Keep this list handy and add ideas of your own. It's worth putting good mental health on the top ofyour to do list every day. Do you feel down? It's impossible and unrealistic to expect to be cheerful all the time. Some days are harder than others. But if you just can't shake your sadness or you have mysterious aches and pains, you may be suffering from clinical depression. Like heart disease and diabetes, clinical depression is an illness that can be treated. Depression may be the result of a chemical imbalance in the brain, heredity, a stressful life change, or medicine. It could be a combination of these. It may develop after a particular event or for no apparent reason. It can also be secondary to another underlying medical problem (for example, hypothyroidism) or a consequence of using drugs or alcohol. Many people don't realize that they have depression. To help determine whether you may be depressed, answer the following questions: ??? Do you feel sad or hopeless but don't know why? Do you have lasting aches and pains that don't respond to treatment? Have you lost interest in activities you used to enjoy? Do you have trouble concentrating, remembering, or making decisions? Do you frequently feel worthless or gu ilty? Do you have trouble sleeping at night? Do you worry that you sleep too much? If you answer yes to any of these questions, and you have felt this way for more than 2 weeks, talk to your healthcare provider because you may be depressed. Treatment can help you feel good again???but first, someone has to know you feel bad. ?? Call [employer] in a crisis If you have thoughts of harming yourself or others, call or text 988 or [phone] ([phone]) to get help right away. You will be connected to trained crisis counselors at the [employer] Suicide &&Crisis Lifeline. An online chat option is also available at [email or web address]. Lifeline is free and available 14/11. ?? Last Reviewed Date: 2022 ?? 2572-[address] [employer]. All rights reserved. This information is not intended as a substitute for professional medical care. Always follow your healthcare professional's instructions. ?? * Event Display: Cardiac Rhythm Strips Authored Date: * Shruthi ZARCO, Lisa N: MODIFY Shruthi ZARCO, Lisa Chu: MODIFY, MODIFY, MODIFY, MODIFY, PERFORM Lola Liu MD: PERFORM Event Display: Discharge/Transfer Note Hospital Authored Date: Patient: ??ALBERTO LAGUNAS ? Age:??66 Years?Sex:??Male?:??1955?? Patient Information Discharge Location: Primary Care Physician: Not on Staff, PCP Admit Date/Time: 06/20/22 12:38 Discharge Disposition Discharge Disposition: Home with Home Health Discharge Diagnosis Shock septic vs hypovolemic vs cardiogenic resolved CAD s/p CABG 2006 Ischemic cardiomyopathy EF 30% 2020 AF/flutter [id number] Acute hypoxic respiratory failure s/p intubation 06/20-06/22 resolved Small to moderate right pleural effusion Lymphadenopathy A few mildly enlarged lymph lymph nodes are similar to 08/07/2020 11 mm density right lower lobe Schizophrenia/mood disorder Polysubstance use disorder (alcohol/cocaine/opiates) _ Discharge Medications Albuterol (Ventolin HFA 108 [...] 3.125 mg oral tablet)?3.125?Milligram?1?tablet?By Mouth?2 timesa day Furosemide (furosemide 20 mg oral tablet)?TAKE 1 TABLET BY MOUTH TWICE A DAY Lactulose (lactulose 10 gm/15 ml oral syrup)?TAKE 30 ML BY MOUTH 4 TIMES A DAY Multivitamin (Daily Jayson oral tablet)?TAKE 1 TABLET BY MOUTH EVERY DAY Naloxone (naloxone 4 mg/0.1 mL nasal spray)?4?Milligram?Nares, Both?Once Olanzapine (olanzapine 20 mg oral tablet)?1?tab(s)?20?Milligram?By Mouth?Daily Pantoprazole (pantoprazole 40 mg oral delayed release tablet)?1?tab(s)?40?Milligram?By Mouth?Daily sacubitril-valsartan (Entresto 24 mg-26 mg oral tablet)?1?tab(s)?By Mouth?2 times a day Spironolactone (spironolactone 25 mg oral tablet)?TAKE 1 TABLET BY MOUTH EVERY DAY Thiamine (Vitamin B1 100 mg oral tablet)?100?Milligram?1?tablet?By Mouth?Daily?for 10?Days umeclidinium-vilanterol (Anoro Ellipta 62.5 mcg-25 mcg/inh inhalation powder)?INHALE 1 PUFF DAILY Medications Started Pantoprazole for GERD Medications Discontinued None Doses Changed None PCP Follow-Up/Heads-Up The patient was exposed to COVID-19 positive patient 07/08 Hospital Course This is a 66-year-old male with history of CAD s/p CABG??(2006), paroxysmal Af/flutter on??apixaban,??ischemic cardiomyopathy (EF 30 to 35%),??COPD,??chronic hyponatremia and schizophrenia/mood disorder with alcohol/polysubstance use disorder, who was found unresponsive??and hypoxic??on 06/20/2022 by VNA. ??He was found to be in acute hypoxic respiratory failure and was intubated. ??The patient was in ICU with hospital course complicated by hyponatremia and shock of unclear etiology, that eventually improved. Hospital course further complicated by??heart failure exacerbation??and??COVID- 19 exposure. ??The patient was evaluated by physical therapy??and recommended home with services. ?? Exposure to COVID-19 07/08/2022 Currently asymptomatic. The patient advised??to seek help??if becomes symptomatic.? Schizophrenia/mood disorder Polysubstance use disorder (alcohol/cocaine/opiates) Unresponsive with acute hypoxia on presentation prompting intubation. Urine toxicology positive forbenzodiazepines, no documentation of benzodiazepines administered in the ED prior to obtaining sample??however he may have received medications during intubation that were not charted. Seen by psychiatry??for paranoia/suicidal ideations??and eventually cleared on 07/08.? Recommendations: -continue PO thiamine -Continue home??olanzapine 20mg ?? GERD symptoms -Started??on pantoprazole??with improvement ?? Shock septic vs hypovolemic vs cardiogenic resolved CAD s/p CABG 2006 Ischemic cardiomyopathy EF 30% 2020 AF/flutter [id number] Initially hemodynamically stable however shortly afterwards became hypotensive with episodic bradycardia requiring pressors. Unclear etiology possibly hypovolemic (hyponatremia versus septic secondary to pneumonia (RLL opacity/AMS) versus cardiogenic (POCUS with extremely limited squeeze however known ischemic cardiomyopathy with an EF of 30%.??EKG with flutter, troponin 20) TTE??poor quality but severely reduced LV function (felt to be worse than prior) ?? Recommendations: -Continue apixaban 5 mg twice daily -Continue aspirin and atorvastatin 40 mg daily -Continue carvedilol, Entresto, furosemide 20mg??BID??and spironolactone ?? Acute hypoxic respiratory failure s/p intubation 06/20-06/22 resolved Small to moderate right pleural effusion Lymphadenopathy A few mildly enlarged lymph lymph nodes are similar to 08/07/2020 11 mm density right lower lobe Found unresponsive by VNA and severely hypoxic on room air by EMS with improvement with nonrebreather. Rapidly intubated on presentation due to low GCS and unresponsiveness. Concern for underlying infectious etiology with chest x-ray showing right-sided consolidation, possibly aspiration pneumonia in the setting of intoxication versus withdrawal seizures versus underlying cardiac event. The patient was initially treated with antibiotics however ET aspirate negative and??procalcitonin low??with??discontinuation of antibiotics. Evaluated by pulmonary rehab and does not require oxygen. ?? Recommendations: -PCP to follow-up??11 mm density seen in right lower lobe ?? 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 Na 119 on presentation, now improved to 129 Objective Vital Signs?? Temperature: 97.5 DegF (07/09/22 08:03:00) Temperature Route: Oral (07/09/22 08:03:00) Pulse Rate: 89 bpm (07/09/22 11:04:00) Respiratory Rate: 18 br/min (07/09/22 08:03:00) Systolic Blood Pressure: 103 mm Hg (07/09/22 11:04:00) Diastolic Blood Pressure: 75 mm Hg (07/09/22 11:04:00) Blood pressure sites: Arm, left (07/09/22 08:03:00) Mean Arterial Pressure: 80 mm Hg (07/09/22 08:03:00) Pulse Pressure: 44 mm Hg (07/09/22 08:03:00) Oxygen Saturation: 98 % (07/09/22 08:03:00) Mode of Delivery (Oxygen): Room air (07/09/22 08:03:00) Early Warning Score: 4 (07/09/22 11:13:31) . Physical Exam General Appearance: No acute distress. Respiratory: Breath sounds clear Cardiovascular: RRR, S1 and S2 regular. Gastrointestinal: Abdomen is soft, non-tender, non-distended. Neurologic: No focal neurological deficits seen with movement in all 4 extremities. Psychiatric: Appropriate and pleasant.?? Consultants Dr. Gabriel, cardiology Dr. Costello, psych Patient Education Titles COVID-19 Self Isolation Instruction?? Understanding Coronavirus Disease 2019 COVID-19?? COVID-19 Test Positive Adult?? Follow-Up Appointments Added Follow Up ?Time Frame ?Comments [facility] PCP Assignment Line [phone]?Please call this number to be assigned with a PCP. ??Please call your PCP within 2 to 3 days of discharge to make an appointment. Home Health Face to Face *Denotes mandatory yuen ?? *I certify that this patient is under my care and that I or an allowed non- physician working with me had a face to face encounter with the patient on this date:??07/09/2022 11:17 ?? *The encounter with the patient was in whole, or in part, for the following medical condition, which is the primary diagnosis(es) for home health care:??Pneumonia (J18.9) ? *Select the indications for the discipline/s that are being arranged for this patient. Nursing (select all that apply): [_] None [_] Medication management (reconciliation, teaching)?? [_x] Chronic disease management?? [_] Wound care and treatment?? [_] Home safety evaluation [_] Administer SQ/IM/IV medications?? [_] Cath care?? [_] Drain care?? [_] Trach or GT care?? Other _ Occupation Therapy (select all that apply): [_] None [_] ADL Management [_] Fall prevention training [_] Energy conservation [_] Cognitive training Other _ Physical Therapy (select all that apply): [_] None [x_] Functional mobility training [x_] Home exercise program to strengthen [_] Increase ROM?? [_] Falls prevention training [_] Home maintenance program for chronic disease Other _ Speech Therapy (select all that apply): [_] None [_] Swallow evaluation and training [_] Speech and language training [_] Cognitive training to process, organize, and/or recall information Other _ ? *Homebound due to (select all that apply): [_] Inability to leave home without assistance/supervision [_] Inability to ambulate without assistance [_] Pain [_x] Decreased strength and endurance [_] Unsteady gait [_] Severe SOB and fatigue [_] Impaired transfers [_] Inability to negotiate stairs [_] Limited weight bearing [_] Mental status change? *Physician Signature:??Taroob Latef ?? *By signing this, I certify that I have personally evaluated the patient and agree with the findings and recommendations as documented above. Results Discharge Labs BACTERIOLOGY MRSA PCR Result Positive, MRSA target DNA detected. ()?? 06/20/2022 15:15 S Aureus ??PCR Result Positive, SA target DNA detected. ()?? 06/20/2022 15:15 ?? BLOOD COUNT & DIFF WBC 5.3 k/mm3 ()?? 07/08/2022 00:19 RBC 3.50 m/mm3 (Low)?? 07/08/2022 00:19 Hgb 11.8 Gm/dL (Low)?? 07/08/2022 00:19 Hct 33.9 % (Low)?? 07/08/2022 00:19 MCV 96.9 femtoliters (High)?? 07/08/2022 00:19 MCH 33.7 pg ()?? 07/08/2022 00:19 MCHC 34.8 g/dL ()?? 07/08/2022 00:19 Platelet Count 251 k/mm3 ()?? 07/08/2022 00:19 RDW-SD 48.7 femtoliters (High)?? 07/08/2022 00:19 MPV 9.7 femtoliters ()?? 07/08/2022 00:19 Nucleated RBC (Automated) 0.0 #/100 WBC'S ()?? 07/08/2022 00:19 Abs. NRBC 0.0 k/mm3 ()?? 07/08/2022 00:19 Abs. Neut 6.4 k/mm3 ()?? 07/01/2022 10:57 Abs. Lymph 0.4 k/mm3 (Low)?? 07/01/2022 10:57 Abs. Stark 0.3 k/mm3 (Low)?? 07/01/2022 10:57 Abs. Eo 0.3 k/mm3 ()?? 07/01/2022 10:57 Abs. Baso 0.0 k/mm3 ()?? 07/01/2022 10:57 Neut % 85.7 % (High)?? 07/01/2022 10:57 Lymph % 4.9 % (Low)?? 07/01/2022 10:57 Stark % 4.6 % ()?? 07/01/2022 10:57 Eos % 3.6 % ()?? 07/01/2022 10:57 Baso % 0.4 % ()?? 07/01/2022 10:57 Hemoglobin (POC) POC Cartridge 16.0 Gm/dL ()?? 06/20/2022 19:56 Hematocrit (POC) POC Cartridge 47 % ()?? 06/20/2022 19:56 Imm Gran 0.8 % ()?? 07/01/2022 10:57 Abs. Imm Gran 0.1 k/mm3 ()?? 07/01/2022 10:57 ?? BLOOD GAS pH (POC) POC Cartridge 7.34 (Low)?? 06/20/2022 16:13 pCO2 (POC) POC Cartridge 48.1 mm Hg (High)?? 06/20/2022 16:13 pO2 (POC) POC Cartridge 112 mm Hg (High)?? 06/20/2022 16:13 Estimated Bicarbonate (POC) POC Cart 25.9 mmol/L ()?? 06/20/2022 16:13 % O2 Sat Arterial (POC) POC Cartridge 98 % ()?? 06/20/2022 16:13 FIO2 (POC) POC Cartridge 40 % ()?? 06/20/2022 16:13 pH Venous (POC) POC Cartridge 7.27 (Low)?? 06/20/2022 19:56 pCO2 Venous (POC) POC Cartridge 53.4 mm Hg (High)?? 06/20/2022 19:56 pO2 Venous (POC) POC Cartridge 33 mm Hg (Low)?? 06/20/2022 19:56 Est Bicarbonate (POC) POC Cartridge 24.5 mmol/L ()?? 06/20/2022 19:56 % O2 Sat Venous (POC) POC Cartridge 55 ()?? 06/20/2022 19:56 Base Excess (POC) POC Cartridge NEGATIVE 2 ()?? 06/20/2022 19:56 pH 7.33 (Low)?? 06/20/2022 11:56 pCO2 46 mm Hg ()?? 06/20/2022 11:56 pO2 289 mm Hg (High)?? 06/20/2022 11:56 Bicarbonate, Estimated 23 mmol/L ()?? 06/20/2022 11:56 Specimen Type - Blood Gas VENOUS ()?? 06/20/2022 19:56 Percent O2 (FIO2) 60 ()?? 06/20/2022 11:56 ?? CARDIAC Nt-Probnp 5367 pg/mL (High)?? 06/23/2022 03:55 High Sensitivity Troponin (HSTnT) 20 ng/L ()?? 06/20/2022 14:44 ?? CHEM GENERAL Sodium 129 mmol/L (Low)?? 07/08/2022 00:19 Potassium 4.2 mmol/L ()?? 07/08/2022 00:19 Chloride 93 mmol/L (Low)?? 07/08/2022 00:19 Bicarbonate Level 27 mmol/L ()?? 07/08/2022 00:19 Anion Gap 9 ()?? 07/08/2022 00:19 Sodium (POC) POC Cartridge 124 mmol/L (Low)?? 06/20/2022 19:56 Potassium (POC) POC Cartridge 4.3 mmol/L ()?? 06/20/2022 19:56 Glucose Level 109 mg/dL (High)?? 07/08/2022 00:19 Glucose (POC) POC Cartridge 93 ()?? 06/20/2022 19:56 Glucose, POC 85 mg/dL ()?? 06/22/2022 04:29 BUN 16 mg/dL ()?? 07/08/2022 00:19 Creatinine-Blood 0.7 mg/dL ()?? 07/08/2022 00:19 Estimated GFR Creatinine 101 ML/MIN/1.73 M2 ()?? 07/08/2022 00:19 Calcium 9.0 mg/dL ()?? 07/08/2022 00:19 Ionized Calcium (POC) POC Cartridge 1.18 mmol/L ()?? 06/20/2022 19:56 Phosphorus 2.2 mg/dL (Low)?? 06/23/2022 04:31 Magnesium 1.8 mg/dL ()?? 06/27/2022 00:38 Protein, Total 7.7 Gm/dL ()?? 07/01/2022 10:57 Albumin 4.4 Gm/dL ()?? 07/01/2022 10:57 AG Ratio 1.5 ()?? 06/20/2022 14:44 Alkaline Phosphatase 157 units/L (High)?? 07/01/2022 10:57 AST (SGOT) 29 units/L ()?? 07/01/2022 10:57 ALT (SGPT) 22 units/L ()?? 07/01/2022 10:57 Bilirubin, Total 1.4 mg/dL (High)?? 07/01/2022 10:57 Bilirubin, Direct 0.4 mg/dL (High)?? 07/01/2022 10:57 Bilirubin, Indirect 1.0 mg/dL (High)?? 07/01/2022 10:57 Lactate 1.8 mmol/L ()?? 06/20/2022 11:07 ? ENDOCRINE/TUMOR MARKER TSH 5.91 uIU/mL (High)?? 06/20/2022 10:32 Total T4 7.6 ??g/dL ()?? 06/20/2022 10:32 T3, Total 91.9 ng/dL ()?? 06/20/2022 10:32 Cortisol Level 13.4 ??g/dL ()?? 06/21/2022 04:26 ?? HEME OTHER Hold Lavender Top SPECIMEN DISCARDED AFTER 24 HOURS. ()?? 07/03/2022 05:47 Hold Blue Top SPECIMEN DISCARDED AFTER 4 HOURS. ()?? 06/20/2022 11:07 ?? MISC. CHEMISTRY Ammonia, Venous 47 ??mole/L ()?? 06/20/2022 16:12 Procalcitonin 0.08 ng/mL ()?? 06/22/2022 04:26 ?? SEROLOGY INF DISEASE Legionella pneumophila Antigen NEGATIVE ()?? 06/21/2022 02:02 S. Pneumococcus Urinary Ag NEGATIVE ()?? 06/21/2022 02:02 ?? TOXICOLOGY/TDM Ethanol, Serum or Plasma NONE DETECTED mg/dL ()?? 06/20/2022 14:44 Barbiturate Screen, Urine NONE DETECTED ()?? 06/20/2022 15:15 Cannabinoid Screen, Urine NONE DETECTED ()?? 06/20/2022 15:15 Cocaine Metabolite Screen, Urine NONE DETECTED ()?? 06/20/2022 15:15 Benzodiazepine Screen, Urine POSITIVE (Abnormal)?? 06/20/2022 15:15 Amphetamine Screen, Urine NONE DETECTED ()?? 06/20/2022 15:15 Opiate Screen, Urine NONE DETECTED ()?? 06/20/2022 15:15 Oxycodone Screen, Urine NONE DETECTED ()?? 06/20/2022 15:15 Buprenorphine Screen with Reflex, Urine NONE DETECTED ()?? 06/20/2022 15:15 Fentanyl Screen, Urine Result POSITIVE (Abnormal)?? 06/20/2022 15:15 ?? UA/URINALYSIS Appear/Color, Urine LIGHT YELLOW ()?? 06/20/2022 15:15 Specific [place], Urine >1.050 (High)?? 06/20/2022 15:15 pH, Urine 6.5 ()?? 06/20/2022 15:15 Albumin, Urine TRACE (Abnormal)?? 06/20/2022 15:15 Glucose, Urine NEGATIVE ()?? 06/20/2022 15:15 Ketones, Urine TRACE (Abnormal)?? 06/20/2022 15:15 Bilirubin, Urine NEGATIVE ()?? 06/20/2022 15:15 Hemoglobin, Urine NEGATIVE ()?? 06/20/2022 15:15 Nitrite, Urine NEGATIVE ()?? 06/20/2022 15:15 Leukocyte, Urine NEGATIVE ()?? 06/20/2022 15:15 Urobilinogen NORMAL mg/dL ()?? 06/20/2022 15:15 WBC's, Urine 3 /HPF ()?? 06/20/2022 15:15 RBC's, Urine NONE SEEN /HPF ()?? 06/20/2022 15:15 Mucus SLIGHT /LPF ()?? 06/20/2022 15:15 ?? URINE OTHER Sodium, Urine Random 66 mmol/L ()?? 06/21/2022 09:50 Osmolality, Urine Random 710 mOsm/kg ()?? 06/21/2022 09:50 60 ??minutes spent on discharge * Lisa Hawkins MD: PERFORM Lisa Hawkins MD: PERFORM Event Display: Discharge/Transfer Note Hospital Authored Date: [id number] Attending Attestation: I have??seen and evaluated??ALBERTO LAGUNAS, on 07/09/22. ??I have??reviewed the patient???s medical history, findings on examination, diagnosis, and treatment. I have discussed the case and its management with the resident and agree with the findings and plan as documented in the resident???s note.? _ ? * Lola Liu MD: PERFORM Event Display: Discharge/Transfer Note Hospital Authored Date: [id number] Discharge delayed, niece out of town and??unable to molded goods spot picker, the patient doesn't have keys to the house. Discharge in AM. * Lola Liu MD: PERFORM, SIGN, VERIFY Event Display: Patient Education Handout Authored Date: [id number] * Event Display: Cardiac Rhythm Strips Authored Date: * Event Display: Cardiac Rhythm Strips Authored Date: [id number] * Elba Verduzco DO: PERFORM Event Display: Procedures Invasive Line Authored Date: [id number] Vascular Access Insertion Entered On: 06/20/2022 17:29 EST Performed On: 06/20/2022 17:28 EST by Elba Verduzco DO Vascular Access Insertion Occupation of Vascular Access Compressor Engineer : Fellow Person Supervising Procedure : Paty Head MD Vascular Access Insertion Comments : Indication: shock CC Attg: I supervised [facility] fellow perform this procedure. Paty Head MD - 06/21/2022 10:16 EST Date of Vascular Access Insertion : 06/20/2022 EST Procedure Location Vascular Access : MICU Person recording insertion : Compressor Engineer Compressor Engineer of Vascular Access : Elba Verduzco DO Vascular Access Type : Arterial line Time Out Performed : Yes Time Out Data : Patient identified, Site verified, Procedure verified, RN attendance Reason for Vascular Access Insertion : Hemodynamic monitoring Suspected Vascular Access Infection : No, the access was not exchanged over a guide wire Vascular Access Procedure Check : Critical care patient Hand Hygiene prior to insertion : Yes Maximal sterile barriers used : Mask, Sterile gown, Large sterile full body drape, Sterile gloves, Ultrasound sterile cover, Cap Sterile Field Maintained : Yes Skin Preparation : Chlorhexidine (CHG) Skin Prep dry at first skin puncture : Yes Vascular Access Insertion Site : Radial Vascular Access Insertion Side : Left Vessel Identified By : Ultrasound Vascular Access Insertion Circumstance : Non-emergent Vascular Access Dressing : Occlusive Complications during Insertion : None Tolerated CLIP procedure well : Yes Insertion Attempts : 1 Elba Verduzco DO - 06/20/2022 17:28 EST * Elba Verduzco DO: PERFORM Event Display: Procedures Invasive Line Authored Date: [id number] Vascular Access Insertion Entered On: 06/20/2022 17:27 EST Performed On: 06/20/2022 17:25 EST by Elba Verduzco DO Vascular Access Insertion Person Supervising Procedure : Paty Head MD Vascular Access Insertion Comments : Indication: shock CC Attg: I supervised the fellow perform this procedure. Paty Head MD - 06/21/2022 10:17 EST Date of Vascular Access Insertion : 06/20/2022 EST Procedure Location Vascular Access : MICU Person recording insertion : Compressor Engineer Compressor Engineer of Vascular Access : Elba Verduzco DO Occupation of Vascular Access Compressor Engineer : Fellow Vascular Access Type : Central line Time Out Performed : Yes Time Out Data : Patient identified, Site verified, Procedure verified, RN attendance Reason for Vascular Access Insertion : Medication requires use of vascular access Suspected Vascular Access Infection : No, the access was not exchanged over a guide wire Vascular Access Procedure Check : Critical care patient Hand Hygiene prior to insertion : Yes Maximal sterile barriers used : Mask, Sterile gown, Large sterile full body drape, Ultrasound sterile cover, Cap Sterile Field Maintained : Yes Skin Preparation : Chlorhexidine (CHG) Skin Prep dry at first skin puncture : Yes Antimicrobial coated catheter used : Yes Successful central line placement : Yes Vascular Access Catheter Type : Non-tunneled (other than dialysis) Vascular Access Insertion Site : Jugular Vascular Access Insertion Side : Right Vascular Access Catheter Size : 7f Vascular Access Catheter Length : 15cm Vessel Identified By : Ultrasound Vascular Access Insertion Circumstance : Non-emergent Vascular Access Catheter Securement : Suture Vascular Access Dressing : Occlusive Follow-up CXR : Ordered Provider Reading CXR : Elba Verduzco DO Complications during Insertion : None Tolerated CLIP procedure well : Yes Insertion Attempts : 1 Elba Verduzco DO - 06/20/2022 17:25 EST Admission evaluation note * Alexa ZARCO, Lola Josue: MODIFY, MODIFY, MODIFY, MODIFY, MODIFY, MODIFY, MODIFY, MODIFY, MODIFY, MODIFY,MODIFY, MODIFY, MODIFY, MODIFY, MODIFY, MODIFY, MODIFY, MODIFY, MODIFY, MODIFY, MODIFY, MODIFY, MODIFY, MODIFY, MODIFY, PERFORM, MODIFY, MODIFY, MODIFY, MODIFY, MODIFY Event Display: Admission Note Authored Date: [id number] Patient: ??ALBERTO LAGUNAS ? Age:??66 Years?Sex:??Male?:??1955?? Chief Complaint/Reason for Consultation Unresponsivenessecho History of Present Illness This is a 66-year-old male with history of ischemic cardiomyopathy (EF 30% 06/2020), paroxysmal atrial fibrillation on apixaban, COPD (no PFTs in [facility]), schizophrenia/mood disorder and alcohol/polysubstance use disorder, who??was found unresponsive??on 06/20/2022 by VNA. ?? The patient reportedly was feeling unwell and began to complain of acute onset of dyspnea.?? The patient's visiting nurse found him unresponsive today.?? Per EMS, the patient was saturating 56% on room air and had a nonrebreather placed immediately with improvement in O2 saturation.?? His respiratory rate was noted to suddenly decrease, and oropharyngeal airway was placed without any gag reflex. ?? On presentation to the ED the patient was completely unresponsive without any withdrawal to noxious stimuli.?? Pupils were equal and reactive.?? Due to concern for airway protection, the patient was intubated urgently. CTH and CTA chest WNL. Review of Systems Limited Objective Vital Signs?? Temperature:??95.5 DegF??Low (06/20/22 13:37:00) Temperature Route: Core Bladder (06/20/22 13:37:00) Pulse Rate: 61 bpm (06/20/22 13:37:00) Respiratory Rate: 18 br/min (06/20/22 11:56:00) Vented: Yes (06/20/22 13:37:00) Systolic Blood Pressure: 122 mm Hg (06/20/22 13:37:00) Diastolic Blood Pressure: 68 mm Hg (06/20/22 13:37:00) Pulse Pressure: 34 mm Hg (06/20/22 11:59:00) Oxygen Saturation: 100 % (06/20/22 13:37:00) Mode of Delivery (Oxygen): Ventilator (06/20/22 13:37:00) FiO2: 40 % (06/20/22 13:37:00) End Tidal CO2: 28 mm Hg (06/20/22 13:37:00) ?? Physical Exam General Appearance: Sedated Head:??Normocephalic. Respiratory: Breath sounds clear Cardiovascular: RRR, S1 and S2 regular. Gastrointestinal: Abdomen is soft, non-tender, non-distended. Neurologic: AAO X 3. No focal neurological deficits seen with movement in all 4 extremities. Skin: No rashes or lesions.?? Musculoskeletal: Normal range of motion. Heme/Lymphatics/Immune: No pedal edema present. Assessment/Plan This is a 66-year-old male with history of ischemic cardiomyopathy (EF 30% 06/2020), CAD s/p CABG (2006), paroxysmal AF/flutter on apixaban, COPD (no PFTs in [facility]), chronic hyponatremia, schizophrenia/mood disorder and alcohol/polysubstance use disorder, who??was found unresponsive??on 06/20/2022 by VNA??s/p intubated for??acute hypoxemic respiratory failure. Hospital course complicated by acute on chronic hyponatremia and shock of unclear etiology,??pending further work-up. ?? Neurology Acute encephalopathy?? metabolic vs toxic Intubated and sedated 06/20 Schizophrenia/mood disorder Polysubstance use disorder (alcohol/cocaine/opiates) Unresponsive with acute hypoxia??on presentation??prompting intubation. CTH WNL. Urine toxicology positive for benzodiazepines, does not appear to be on prescription benzos,??possibly contributing encephalopathy versus??metabolic secondary to??severe hyponatremia. ?? Reportedly??having spontaneous movement on the right side prior to intubation??however currentlywithout purposeful movement,??or response to noxious stimuli. ?? Plan: -Continue thiamine at high dose 100 mg IV daily -Holding olanzapine 20 mg daily ?? Cardiovascular Shock septic vs hypovolemic vs cardiogenic Prolonged QTc 514 ms CAD s/p CABG 2006 Ischemic cardiomyopathy EF 30%??2020 AF/flutter [id number] 3 Initially hemodynamically stable??however shortly afterwards??became hypotensive with episodic bradycardia??requiring??pressors. Unclear etiology??possibly hypovolemic??(hyponatremia versus septic secondary to pneumonia (RLL??opacity/AMS)??versus cardiogenic (POCUS??with extremely limited??squeeze??however??known ischemic??cardiomyopathy with an EF of 30%.?EKG with flutter,??troponin 20) ?? Plan: -Levophed + vasopressin??to be titrated to MAP goal of??60 -500ml bolus trial -Continue apixaban 5 mg twice daily -Continue aspirin and atorvastatin 40 mg daily -Holding carvedilol 3.125 twice a day, furosemide 20 mg twice a day, Entresto and spironolactone 25mg daily -Echo ordered ?? Pulmonology/ID Acute hypoxic respiratory failure s/p intubation 06/20 Concern for aspiration??pneumonia Small to moderate right pleural effusion Lymphadenopathy A few mildly enlarged lymph lymph nodes are similar to 08/07/2020 11 mm??density??right lower lobe Found unresponsive by VNA??and severely hypoxic on room air by EMS??with improvement??with nonrebreather. Rapidly intubated on presentation due to??low GCS??and unresponsiveness. ?? Concern for underlying infectious etiology with??chest x-ray showing right- sided??consolidation, possibly aspiration pneumonia??in the setting of intoxication versus??withdrawal seizures??versus underlying cardiac event. ?? Plan: -Vancomycin and piperacillin-tazobactam -An 11 mm rounded density along the right lower lobe bronchovascular bundle and some contiguous immediate attenuation appears increased from 2020. Follow-up chest CT with contrast a few weeks is recommended following resolution of the patient's acute illness to ensure no underlying soft tissue mass. -UA -Blood cultures -Sputum cultures -MRSA swab ?? Renal Chronic hyponatremia with acute exacerbation?? 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 Does not appear to be volume overloaded to suggest a hypervolemic hyponatremia??and hence hypovolemia may be a component??especially in the setting of??known history of alcohol disorder/beer Potomania. ?? Urine studies to differentiate beer potomania (hypotonic hyponatremia) from SIADH. ?? Plan: -Can start urea if doesn't improve, has had good response to it in the past -Q8H lytes -Will avoid diuretics for now -Urine Osm and Urine Na ordered -Cortisol level random ?? Endocrine Elevated TSH 5.91 ?? Plan: -T4 ordered ?? Code: Full VTE prophylaxis: Apixaban GI prophylaxis: Famotidine Diet: NPO ?? The patient's case and management was discuss ed with Dr. Head. ?? Lola Liu MD Internal medicine PGY3 Histories Past Medical History/Problem List Active Problems??(7) CAD (coronary artery disease) COPD with emphysema HTN (hypertension) Hyperlipidemia Mood disorder Polysubstance abuse Tobacco use ?? Social History Alcohol Details:??Use: Current. ??Frequency: Daily. Substance Abuse Details:??Use: Current. ??Type: Cocaine, Heroin. Tobacco Details:??Use: 10 or more cigarettes (1/2 pack or more)/day in last 30 days. Medications Home Medications Albuterol (Ventolin HFA 108 [...] 3.125 mg oral tablet)?3.125?Milligram?1?tablet?By Mouth?2 timesa day Furosemide (furosemide 20 mg oral tablet)?TAKE 1 TABLET BY MOUTH TWICE A DAY Lactulose (lactulose 10 gm/15 ml oral syrup)?TAKE 30 ML BY MOUTH 4 TIMES A DAY Multivitamin (Daily Jayson oral tablet)?TAKE 1 TABLET BY MOUTH EVERY DAY Naloxone (naloxone 4 mg/0.1 mL nasal spray)?4?Milligram?Nares, Both?Once Olanzapine (olanzapine 20 mg oral tablet)?1?tab(s)?20?Milligram?By Mouth?Daily sacubitril-valsartan (Entresto 24 mg-26 mg oral tablet)?1?tab(s)?By Mouth?2 times a day Spironolactone (spironolactone 25 mg oral tablet)?TAKE 1 TABLET BY MOUTH EVERY DAY Thiamine (Vitamin B1 100 mg oral tablet)?100?Milligram?1?tablet?By Mouth?Daily?for 10?Days umeclidinium-vilanterol (Anoro Ellipta 62.5 mcg-25 mcg/inh inhalation powder)?INHALE 1 PUFF DAILY ?? Inpatient Medications Medications (6) Active SCHEDULED: (3) Chlorhexidine 0.12% Oral Rinse UD (Peridex 0.12% Liquid) ??15 mL, Topically, 2 times a day Enoxaparin 30 mg Inj (Lovenox Inj) ??30 mg 0.3 mL, Subcutaneous Injection, 2 times a day Famotidine 10 mg/mL Inj (Famotidine Inj) ??20 mg 2 mL, IV Push Slowly, Every 12 hours CONTINUOUS: (3) EPINEPHrine 2mg / 250mL NaCL 2 mg (EPINEPHrine 2 mg / NaCL 250 mL 2 mg) ??2 mg 250 mL, IV Infusion Fentanyl 1000mcg/100mL NaCL 1,000 mcg (FENTanyl 1000mcg / 100mL NaCl 1,000 mcg) ??1,000 mcg 100 mL,IV Infusion Propofol 10mg/mL Cont IV (100mL) 1,000 mg (Propofol 1% /100 mL 1,000 mg) ??1,000 mg 100 mL, IV Infusion PRN: (0) * Sonido ZARCO, Paty: PERFORM Event Display: Admission Note Authored Date: CRITICAL CARE ATTENDING NOTE Patient seen and examined, data reviewed, case and management discussed with house staff on the date of service (06/20/22). ??I confirmed the findings and agree with the resident???s documentation of the assessment and plan of care we developed together as detailed below with the following highlights /additions/modifications. ?? Diagnoses: --acute??toxic metabolic encephalopathy --acute circulatory failure/shock -- likely mixed - hypovolemic, distributive/septic, cardiogenic (known ICM) --PAFib/Flutter now w/ bradycardia --ETOH, cocaine, opiate abuse - tox screen pos??BZ's --COPD w/o acute exac --suspect asp pna --acute hypoxic resp failure --acute on chronic hyponatremia,??likely hypovolemic in setting of beer potomania ?? Plan: --Full vent support, wean FiO2 --Levo and vaso, titrate former??former for MAP??60-65 --Assess volume responsiveness??w/ FloTrac, also pre and post IVF bolus ScvO2 --Formal TTE --Empiric Vanc and Zosyn, send ET asp, if MRSA nasal swab negative, would d/c Vanc --Wean propofol gtt, can trial Precedex. Risk of ETOH w/d --Thiamine?? --Would not give 3% Na at this point. May need to start urea.??Would initiate IVV resus??with NS first. ?? At the time of service, this patient is critically ill due to the acute impairment of 1 or more vital organ systems such that there is a high probability of imminent or life-threatening deteriorationin the patient???s condition.? Critical Care Time =??45 minutes (This represents the total time I personally spent evaluating, managing and providing care exclusive of time spent for separately billable procedures.) EKG study * Event Display: ECG 12-Lead Authored Date: [id number] Please click on pdf link to open report * Event Display: ECG 12-Lead Authored Date: Ventricular Rate: 48 BPM Atrial Rate: 258 BPM QRS Duration: 116 ms Q-T Interval: 506 ms QTC Calculation(Bazett): 452 ms R Pima: 68 degrees T Pima: 68 degrees Atrial flutter with variable A-V block Nonspecific ST abnormality Abnormal ECG When compared with ECG of 20-JUN-2022 13:02, QRS duration has decreased Borderline criteria for Inferior infarct are no longer Present QT has shortened Confirmed by ALEJANDRA HINOJOSA ([id number]) on 06/21/2022 9:49:36 AM [place]: ALEJANDRA HINOJOSA * Event Display: ECG 12-Lead Authored Date: [id number] Please click on pdf link to open report * Event Display: ECG 12-Lead Authored Date: [id number] Ventricular Rate: 60 BPM Atrial Rate: 240 BPM QRS Duration: 140 ms Q-T Interval: 514 ms QTC Calculation(Bazett): 514 ms P Pima: 90 degrees R Pima: 74 degrees T Pima: 68 degrees Atrial flutter with 4:1 A-V conduction Non-specific intra-ventricular conduction block When compared with ECG of 20-JUN-2022 10:33, No significant change Confirmed by MAYRA VILLATORO ([id number]) on 06/20/2022 1:38:49 PM [place]: MAYRA VILLATORO * Event Display: ECG 12-Lead Authored Date: Please click on pdf link to open report * Event Display: ECG 12-Lead Authored Date: Ventricular Rate: 81 BPM Atrial Rate: 234 BPM QRS Duration: 130 ms Q-T Interval: 444 ms QTC Calculation(Bazett): 515 ms P Pima: 87 degrees R Pima: 81 degrees T Pima: 254 degrees Atrial flutter with variable A-V block Non-specific intra-ventricular conduction block Abnormal ECG When compared with ECG of 07-DEC-2020 21:19, Atrial flutter has replaced Sinus rhythm T wave inversion more evident in Inferior leads Nonspecific T wave abnormality now evident in Lateral leads Confirmed by ALEJANDRA HINOJOSA ([id number]) on 06/20/2022 12:56:23 PM [place]: ALEJANDRA HINOJOSA Heart * Event Display: Echocardiogram - Complete Authored Date: Transthoracic Echocardiography Report (TTE) Patient Demographics Patient Name ALBERTO LAGUNAS Date of Study 06/21/2022 Corporate Gender Male Facility Race Ethnicity Date of 1955 Height: 71 inches Age 66 year(s) Weight: 158.75 pounds Accession Number [id number] BSA: 1.91 m2 Room Number [id number] BMI: 22.14 kg/m2 Referring Physician Alexa Josue MD Interpreting Physician He Gill MD Alliances Consultant Gary Goode Indications Heart failure. Clinical History Polysubstance use disorder. Atrial flutter. CAD. COPD. Hypertension. Hyperlipidemia. Paroxysmal atrial fibrillation. Cardiomyopathy. Study Data Type of Study TTE procedure:Echo Complete-(Doppler, Colorflow) with Contrast. Study Date06/21/2022 Start Time: 07:38 AM Study Location: [facility] [place] Adult Echo Study Status: ICU/CCU Patient Status: Routine Technical Quality: Technically difficult due to body habitus. Blood Pressure:111/52 mmHg EKG: Indeterminate HR: 52 bpm Contrast Medium: Definity. Amount - 2 ml 2D Measurements LV Diastolic Dimension: 5.8 cm LV Systolic Dimension: 4.8 cm LV Septum Diastolic: 1 cm LV PW Diastolic: 1 cm AO Root Dimension: 3.6 cm LA Dimension: 4.3 cm LA ESV (BP):47 ml LVOT Stroke Volume: 65.2 ml LA ESV Index: 25 ml/m2 Stroke Volume Index34.14 ml/m2 LVOT: 2.3 cm Cardiac Index:1.77 l/min/m2 Ascending Aorta:3.5 cm Doppler Measurements AV Peak Velocity: 135 cm/s AV Peak Gradient: 7.29 mmHg AV Mean Gradient: 3 mmHg AV VTI:20.2 cm LVOT Peak Velocity: 95.8 cm/s LVOT VTI15.7 cm AV Area (Continuity):3.23 cm2 PV Peak Velocity: 106 cm/s PV Peak Gradient: 4.49 mmHg E' Septal Velocity: 6.64 cm/s E' Lateral Velocity: 15.7 cm/s Cardiac Anatomy Left Ventricle/Interventricular Septum The left ventricular size is borderline dilated. Left ventricular wall thickness is normal. The LV systolic function appears severely reduced. There is global hypokinesis with regional variation. There is abnormal septal motion normal. The basal to mid inferolateral wall is akinetic. The basal inferior wall appears aneurysmal. Unable to assess diastolic function due to atrial fibrillation. Left Atrium/Interatrial Septum The left atrium appears dilated. Aortic Valve The aortic valve is probably trileaflet. The aortic valve appears mildly calcified. There is no significant aortic stenosis or regurgitation. Mitral Valve There is moderate mitral annular calcification. The posterior leaflet appears calcified. There is trace mitral regurgitation. Aorta The ascending aorta is at the upper limit of normal. Right Ventricle The right ventricle is poorly visualized; function appears grossly normal on limited views Right Atrium The right atrium is poorly visualized. Pulmonic Valve The pulmonic valve is poorly visualized. Tricuspid Valve The tricuspid valve is poorly visualized. There is no significant tricuspid valve regurgitation. Pumonary Artery An accurate pulmonary artery pressure could not be obtained. Venous Structures The inferior vena cava is dilated with poor inspiratory collapse consistent with elevated right atrial pressures. Pericardium/Extracardiac There is no significant pericardial effusion. Summary 1) Technically difficult study despite the use of Definity contrast 2) The left ventricular size is borderline dilated. The LV systolic function appears severely reduced. There is global hypokinesis with regional variation. There is abnormal septal motion normal. The basal to mid inferolateral wall is akinetic. The basal inferior wall appears aneurysmal. 3) The left atrium appears dilated. 4) There is moderate mitral annular calcification. The posterior leaflet appears calcified. There is trace mitral regurgitation. Comparison Comparison is made to the study of July 17, 2020. Comparison is limited, as current study is technically difficult. However, LV function appears worse on the current study Signature * Event Display: Echocardiogram - Complete Authored Date: [id number] Hospital Progress note * Alberto Malave RN: VERIFY, MODIFY, SIGN, PERFORM, SIGN Event Display: Progress Note Hospital Authored Date: [id number] Patient: ALBERTO LAGUNAS Age: 66 years Sex: Male : 1955 Associated Diagnoses: None Author: Alberto Malave RN Findings Problem Related to Alteration in Respiratory Function (new) : Alteration in Respiratory Function/new 07/10/2022 7:18 EDT Alteration in Resp Status Related to COPD, COVID - 19, Pneumonia Goals & Outcomes, Respiratory Pt will maintain/resume baseline physical assessment, Pt will notdevelop complications r/t mechanical ventilation, Pt will maintain/resume normal fluid/electrolyte balance, Pt will not develop complications r/t immobility Interventions, Respiratory Assess/monitor tolerance to IV infusions; verify rate/dose, Assess for and report S&S of respiratory distress, Position for comfort & optimal oxygenation, Initiate pulmonary rehab nurse consult, Monitor sputum color & consistency. Report changes to MD, Teach the proper use of inhalers, Teach purse lip breathing as needed for breathing retraining, Teach tripod positioning to promote air exchange BH Goals/Interventions, Respiratory Yes Respiratory, Problem Start 06/20/2022 15:00 Reviewed Plan with, Respiratory Patient Patient Progression, Respiratory Patient progressing according to plan . Nursing Data Cardiac Data. : Cardiac Data. 07/10/2022 14:11 EDT Cardiovascular Symptoms None Skin Temperature Upper Extremities Warm Skin Temperature Lower Extremities Warm Cardiac Rhythm Normal sinus rhythm Radial Pulse, Left Normal Radial Pulse, Right Normal Dorsalis Pedis Pulse, Left Normal Dorsalis Pedis Pulse, Right Normal youth nutritional monitor Yes Cardiovascular WNL except . Neurological Data. : Neurological Data. 07/10/2022 14:11 EDT Level of Consciousness Full Consciousness Orientated to person, place, time Person, Place, Time Gait Steady Response Eye Opening Spontaneously Motor Response-Adult Obeys commands Verbal Response-Adult Oriented and converses [place] Coma Score 15 Neuro WNL except . Evaluation Pt remains a/ox 3 vss lungs exp wheezes with loose congested cough, reswabbed for covid, tele nsr abd snt lbm on 07/10 voiding in bathroom pp no edema continue to be on ERP do to PUI at this time, continues on updraft treatments at this time, denies any cp sob n/v or dizzyness, up with steady gait in room plan to d/c home pending covid swab later today see cis for assessment covid swab from this am came back positive this afternoon . * Alberto Malave RN: VERIFY, PERFORM, SIGN Event Display: Progress Note Hospital Authored Date: [id number] Patient: ALBERTO LAGUNAS Age: 66 years Sex: Male : 1955 Associated Diagnoses: None Author: Alberto Malave RN Findings Problem Related to Alteration in Respiratory Function (new) : Alteration in Respiratory Function/new 07/09/2022 11:47 EDT Alteration in Resp Status Related to COPD, COVID - 19, Pneumonia Goals & Outcomes, Respiratory Pt will maintain/resume baseline physical assessment, Pt will notdevelop complications r/t mechanical ventilation, Pt will maintain/resume normal fluid/electrolyte balance, Pt will not develop complications r/t immobility Interventions, Respiratory Assess/monitor tolerance to IV infusions; verify rate/dose, Assess for and report S&S of respiratory distress, Initiate VAP prevention strategies, Position for comfort & optimal oxygenation, Chest tube drainage, maintain drainage/suction as ordered, Monitor sputumcolor & consistency. Report changes to MD, Teach/encourage use of incentive spirometer, Teach the proper use of inhalers, Teach purse lip breathing as needed for breathing retraining, Teach tripod positioning to promote air exchange BH Goals/Interventions, Respiratory Yes Respiratory, Problem Start 06/20/2022 15:00 Reviewed Plan with, Respiratory Patient Patient Progression, Respiratory Patient progressing according to plan . Nursing Data Cardiac Data. : Cardiac Data. 07/09/2022 18:05 EDT Cardiovascular Symptoms None Skin Temperature Upper Extremities Warm Skin Temperature Lower Extremities Warm Cardiac Rhythm Atrial flutter, Normal sinus rhythm Radial Pulse, Left Normal Radial Pulse, Right Normal Dorsalis Pedis Pulse, Left Normal Dorsalis Pedis Pulse, Right Normal youth nutritional monitor Yes Cardiovascular WNL except . Gastrointestinal Data. : Gastrointestinal Data. 07/09/2022 18:05 EDT Last Bowel Movement 07/09/2022 GI WNL Normal Bowel Pattern Every other day . Neurological Data. : Neurological Data. 07/09/2022 18:05 EDT Level of Consciousness Full Consciousness Orientated to person, place, time Person, Place, Time Gait Steady Response Eye Opening Spontaneously Motor Response-Adult Obeys commands Verbal Response-Adult Oriented and converses [place] Coma Score 15 Neuro WNL except . Evaluation pt remains a/ox 3 vss lungs cta bilaterally with occassional cough that is non productive continuesto receive updraft treatments as ordered, tele pt going between aflutter and nsr during the day abdsnt lbm today voiding in bathroom pp no edema, pt currently ERP/PUI, plan was to d/c home today butpt did not have ride home, plan to d/c home tomorrow pt aware of plan of care see cis for assessment . * Amber ZARCO, Ezra: PERFORM, MODIFY Event Display: Progress Note Hospital Authored Date: [id number] Patient: ??ALBERTO LAGUNAS ? Age:??66 Years?Sex:??Male?:??1955?? Subjective Patient exposed??to COVID-positive roommate. Has been patient with has been placed on PUI??contact??precautions. ?? Review of Systems General: Feels well and slept overnight. Cardiovascular: Denies any chest pain or palpitations. Pulmonary: Denies any shortness of breath or cough. GI: Denies any abdominal pain, nausea, vomiting, diarrhea or constipation. : Denies any urinary retention ?? Social History Alcohol Details:??Use: Current. ??Frequency: Daily. Substance Abuse Details:??Use: Current. ??Type: Cocaine, Heroin. Tobacco Details:??Use: 10 or more cigarettes (1/2 pack or more)/day in last 30 days. ? Family History No family history recorded. ? Objective Vital Signs?? Temperature: 97.9 DegF (07/08/22 16:33:00) Temperature Route: Oral (07/08/22 16:33:00) Pulse Rate:??91 bpm??High (07/08/22 16:33:00) Respiratory Rate: 18 br/min (07/08/22 16:33:00) Systolic Blood Pressure: 95 mm Hg (07/08/22 16:33:00) Diastolic Blood Pressure: 63 mm Hg (07/08/22 16:33:00) Blood pressure sites: Arm, right (07/08/22 16:33:00) Mean Arterial Pressure: 74 mm Hg (07/08/22 16:33:00) Pulse Pressure: 32 mm Hg (07/08/22 16:33:00) Oxygen Saturation:??92 %??Low (07/08/22 16:33:00) Mode of Delivery (Oxygen): Room air (07/08/22 16:33:00) Early Warning Score: 7 (07/08/22 16:34:08) ? Physical Exam Constitutional: Alert, in no acute distress. Respiratory: Dec breath sounds throughout, some ronchi Cardiovascular: S1S2 regular. No murmurs, rubs or gallops. Gastrointestinal: Abdomen soft, non-tender, non-distended. Normal bowel sounds. Genitourinary: No CVA tenderness. Extremities: No lower extremity pitting??edema. No cyanosis or clubbing. Neurologic: AAOx3, Speech normal. No focal neurological deficits. _ Home Medications Albuterol (Ventolin HFA 108 mcg/inh [...] 3.125 mg oral tablet)?3.125?Milligram?1?tablet?By Mouth?2 timesa day Furosemide (furosemide 20 mg oral tablet)?TAKE 1 TABLET BY MOUTH TWICE A DAY Lactulose (lactulose 10 gm/15 ml oral syrup)?TAKE 30 ML BY MOUTH 4 TIMES A DAY Multivitamin (Daily Jayson oral tablet)?TAKE 1 TABLET BY MOUTH EVERY DAY Naloxone (naloxone 4 mg/0.1 mL nasal spray)?4?Milligram?Nares, Both?Once Olanzapine (olanzapine 20 mg oral tablet)?1?tab(s)?20?Milligram?By Mouth?Daily sacubitril-valsartan (Entresto 24 mg-26 mg oral tablet)?1?tab(s)?By Mouth?2 times a day Spironolactone (spironolactone 25 mg oral tablet)?TAKE 1 TABLET BY MOUTH EVERY DAY Thiamine (Vitamin B1 100 mg oral tablet)?100?Milligram?1?tablet?By Mouth?Daily?for 10?Days umeclidinium-vilanterol (Anoro Ellipta 62.5 mcg-25 mcg/inh inhalation powder)?INHALE 1 PUFF DAILY ? Inpatient Medications Medications (20) Active SCHEDULED: (15) Albuterol/Ipratropium Inhalation Parul 3mL (Duoneb Inhalation Solution) ??1 vials, BAND Nebulizer, 4 times a day Apixaban 5 mg Tablet (apixaban 5 mg oral tablet) ??5 mg, By Mouth, 2 times a day Aspirin 81 mg Chew Tablet (aspirin 81 mg oral tablet, chewable) ??81 mg, By Mouth, Daily Atorvastatin 40 mg Tablet (atorvastatin 40 mg oral tablet) ??40 mg, By Mouth, Daily Breo Ellipta 200 mcg / 25 mcg Inhaler (Breo Ellipta 200 mcg-25 mcg Inhaler) ??1 puffs, Inhalation, Daily Carvedilol 3.125 mg Tablet (Coreg 3.125 mg oral tablet) ??3.125 mg, By Mouth, 2 times a day Furosemide 40 mg Tablet (furosemide 40 mg oral tablet) ??40 mg, By Mouth, Daily Nicotine 7 mg / 24 hour Patch (Nicotine Topical) ??7 mg, Topically, Daily Olanzapine 10mg Tablet (olanzapine 10 mg oral tablet) ??20 mg, By Mouth, Daily at bedtime Pantoprazole 40 mg EC Tablet (pantoprazole 40 mg oral delayed release tablet) ??40 mg, By Mouth, Daily Remove Patch (Remove ??Patch) ??1 each, Topically, Daily Sacubitril-Valsartan 24 mg-26 mg Tablet (Entresto 24 mg-26 mg oral tablet) ??1 tablet, By Mouth, 2 times a day Senna 8.6 mg / Docusate 50 mg tablet (Docusate/Senna Tablet) ??1 tablet, By Mouth, 2 times a day Spironolactone 25 mg Tablet (spironolactone 25 mg oral tablet) ??25 mg, By Mouth, Daily Thiamine 100 mg Tablet (thiamine 100 mg oral tablet) ??100 mg, By Mouth, Daily CONTINUOUS: (0) PRN: (5) Acetaminophen 325 mg Tablet (acetaminophen 325 mg oral tablet) ??650 mg, By Mouth, Every 6 hours Albuterol/Ipratropium Inhalation Parul 3mL (Duoneb Inhalation Solution) ??1 vials, BAND Nebulizer, Every 4 hours Calcium Carbonate 500 mg (Calcium 200 mg) Chewable Tablet (Tums 500 mg oral tablet, chewable) ??500mg 1 tablet, Chew, Every 4 hours Melatonin 3 mg Tablet (Melatonin Tablet) ??3 mg, By Mouth, Once Ondansetron 2mg/mL Inj (2mL Vial) (Zofran Inj) ??4 mg, IV Push, Every 6 hours ? Results Recent Labs BLOOD COUNT & DIFF WBC 5.3 k/mm3 ()?? 07/08/2022 00:19 RBC 3.50 m/mm3 (Low)?? 07/08/2022 00:19 Hgb 11.8 Gm/dL (Low)?? 07/08/2022 00:19 Hct 33.9 % (Low)?? 07/08/2022 00:19 MCV 96.9 femtoliters (High)?? 07/08/2022 00:19 MCH 33.7 pg ()?? 07/08/2022 00:19 MCHC 34.8 g/dL ()?? 07/08/2022 00:19 Platelet Count 251 k/mm3 ()?? 07/08/2022 00:19 RDW-SD 48.7 femtoliters (High)?? 07/08/2022 00:19 MPV 9.7 femtoliters ()?? 07/08/2022 00:19 Nucleated RBC (Automated) 0.0 #/100 WBC'S ()?? 07/08/2022 00:19 Abs. NRBC 0.0 k/mm3 ()?? 07/08/2022 00:19 ?? CHEM GENERAL Sodium 129 mmol/L (Low)?? 07/08/2022 00:19 Potassium 4.2 mmol/L ()?? 07/08/2022 00:19 Chloride 93 mmol/L (Low)?? 07/08/2022 00:19 Bicarbonate Level 27 mmol/L ()?? 07/08/2022 00:19 Anion Gap 9 ()?? 07/08/2022 00:19 Glucose Level 109 mg/dL (High)?? 07/08/2022 00:19 BUN 16 mg/dL ()?? 07/08/2022 00:19 Creatinine-Blood 0.7 mg/dL ()?? 07/08/2022 00:19 Estimated GFR Creatinine 101 ML/MIN/1.73 M2 ()?? 07/08/2022 00:19 Calcium 9.0 mg/dL ()?? 07/08/2022 00:19 ?? VIROLOGY COVID-19 PCR Specimen Source NASAL ()?? 07/07/2022 06:16 COVID-19 PCR Result NEGATIVE ()?? 07/07/2022 06:16 ? Assessment/Plan 66-year-old male with ischemic cardiomyopathy (EF 30% 06/2020), CAD s/p CABG (2006), paroxysmal AF/flutter on apixaban, COPD (no PFTs in [facility]), chronic hyponatremia, schizophrenia/mood disorder and alcohol/polysubstance use disorder, who was found unresponsive and hypoxic on 06/20/2022 by VNA s/p intub ated for acute hypoxemic respiratory failure. Hospital course complicated by acute on chronic hyponatremia and shock of unclear etiology, pending further work-up. ?? Exposure to COVID: I was contacted by??infection control practitioner that??the patient has been exposed??to??his roommate who tested positive for COVID. -Contact precautions placed,??to be placed on 07/14 -3 negative PCR is required on 07/08, 07/10 and 07/12. ? Acute encephalopathy metabolic vs toxic Intubated and sedated 06/20 Schizophrenia/mood disorder Polysubstance use disorder (alcohol/cocaine/opiates) Unresponsive with acute hypoxia on presentation prompting intubation. CTH WNL. Urine toxicology positive for benzodiazepines, unclear if sample was obtained after benzo admin here in ED, pt does not appear to be on prescription benzos, possibly contributing encephalopathy versus metabolic secondary to severe hyponatremia. Now extubated no focal weakness seemed to be improving oriented x3 but with some paranoia. not allowing examination. refusing to answer questions seen by psychiatry on 06/28 - not recommending change to meds. [place] that HCP should make decision re:dispo Plan: -continue PO thiamine -restarted home??olanzapine 20mg -07/07: Requested psychiatry to??reestablish care??facility. -07/08 : Patient ANO X3, has??been cleared??to have capacity for decision-making. ? n/v??05/26 gerd - resolved started PPI need to modify??diet,??d/w patient ? Shock septic vs hypovolemic vs cardiogenic-resolved CAD s/p CABG 2006 Ischemic cardiomyopathy EF 30% 2020 AF/flutter [id number] 3 Initially hemodynamically stable however shortly afterwards became hypotensive with episodic bradycardia requiring pressors. Unclear etiology possibly hypovolemic (hyponatremia versus septic secondary to pneumonia (RLL opacity/AMS) versus cardiogenic (POCUS with extremely limited squeeze however known ischemic cardiomyopathy with an EF of 30%.??EKG with flutter, troponin 20) Now weaned off pressors ICU felt that propofol was contributing TTE??poor quality but severely reduced LV function (felt to be worse than prior) appreciate cardiology input appears to have some evidence of volume overload on exam s/p IV furosemide on 06/23, 06/24??and 06/26 ??-Continue apixaban 5 mg twice daily ??-Continue aspirin and atorvastatin 40 mg daily ??-restarted entresto ??-continue carvedilol ??-40mg PO furosemide daily ??-c/w spironolactone ?? Acute hypoxic respiratory failure s/p intubation 06/20 Concern for aspiration pneumonia Small to moderate right pleural effusion Lymphadenopathy A few mildly enlarged lymph lymph nodes are similar to 08/07/2020 11 mm density right lower lobe Found unresponsive by VNA and severely hypoxic on room air by EMS with improvement with nonrebreather. Rapidly intubated on presentation due to low GCS and unresponsiveness. Pt's niece reports that he had URI sx after a sick contact Notably, she reports he had to be intubated for some time for PNA at [facility] Concern for underlying infectious etiology with chest x-ray showing right-sided consolidation, possibly aspiration pneumonia in the setting of intoxication versus withdrawal seizures versus underlying cardiac event. 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 Chronic hyponatremia with acute exacerbation The patient has chronic hyponatremia from beer potomania dating back 3 to 4 years and has been hospitalized for worsening hyponatremia multiple times in the past. Does not appear to be volume overloaded to suggest a hypervolemic hyponatremia and hence hypovolemia may be a component especially in the setting of known history of alcohol disorder/beer potomania. Na 119 on presentation Initially urine sodium low but subsequently 66 continue fluid restriction needs nutrition input for optimizing nutritional status ??07/01 nausea/vomiting- resolved but NA dropped to 127. gave ivf 07/02 Na improving 129 CTM ? Code: Full VTE prophylaxis: Apixaban Diet:??cardiac Dispo: Patient prefers to go home with services. ??Niece involved in care who is not in the city atthe moment.?? Patient does not have access to his house. ??Discharge??in a.m.??if no acute medical changes. ? Portable XR Chest Views * [facility] , [facility] S: TRANSCRIBROCK Kumar MD, Jere: VERIFY Event Display: Result: Authored Date: [id number] Chest Portable Reason: Fever; Clinical Question(s): Pneumonia COMPARISON: 06/20/2022 FINDINGS: LINES AND TUBES: None. Endotracheal tube, enteric tube, and right IJ central line removed since the prior study. LUNGS AND PLEURA: Unchanged mild volume loss in the right lung. Unchanged mild opacity in the mid and upper portions of the right lung. Mild blunting of the lateral costophrenic angle consistent with small pleural effusion. Left lung remains clear. No left pleural effusion. Coarsened lung markings and left upper lung lucency consistent with emphysema No pneumothorax. HEART, MEDIASTINUM AND JAMILA: Heart is normal in size. Normal mediastinal and hilar contour. BONES AND SOFT TISSUES: No acute abnormality. Median sternotomy. Unchanged break in 1 of 7 sternal wires, unlikely significance. IMPRESSION: Unchanged volume loss/atelectasis and opacity in the right lung; it is unclear whether the opacity represents atelectasis, infiltrate, or both. Unchanged small right pleural effusion. Emphysema. WSN: [id number] Ordering Physician: Zoë Montana Dictated By: Jere Kumar MD Dictated Date/Time: 06/23/22 8:39 am Reviewed By: Jere Kumar MD Signed By: Jere Kumar MD Signed Date/Time: 06/23/22 8:39 am Transcribed By: GRANT Transcribed Date/Time: 06/23/22 8:32 am * [facility] , [facility] S: TRANSCRIBE Ross Pepe MD: VERIFY Getachew Mccain MD: SIGN Event Display: Result: Authored Date: [id number] Chest Portable INDICATION: Tube placement. COMPARISON: 11/28/2020. FINDINGS: LINES AND TUBES: Endotracheal tube with tip approximately 5.9 cm above the philip. Enteric tube with side-port at the level of the diaphragm and tip below the field of view. LUNGS AND PLEURA: Hazy/streaky opacification of the right upper lung. Volume loss on the right indicates at least a component of atelectasis. Mild right basilar atelectasis. Small right pleural effusion. Left costophrenic angle is not within the [id number], however, no evidence of large pleural effusion. No pneumothorax. HEART, MEDIASTINUM AND JAMILA: Heart is normal in size. Mild tortuosity of the aorta. Sternotomy wires overlying the mediastinum. BONES AND SOFT TISSUES: No acute abnormality. IMPRESSION: Endotracheal tube with tip approximately 5.9 cm above the philip. Enteric tube with side-port at the level of the diaphragm. Consider slight advancement for optimal placement. Hazy/streaky opacification of the right upper lung which may represent atelectasis and/or pneumonia/aspiration. Small right pleural effusion. I have personally reviewed the images and I agree with this report. WSN: [id number] Ordering Physician: Tyron Smith Dictated By: Getachew Mccain MD Dictated Date/Time: 06/20/22 11:25 a Reviewed By: Ross Pepe MD Signed By: Ross Pepe MD Signed Date/Time: 06/20/22 11:30 am Transcribed By: GRANT Transcribed Date/Time: 06/20/22 11:11 am * [facility] , CIS S: TRANSCRIBE Jeniffer Candelaria MD: SIGN Jack Castle MD V: VERIFY Event Display: Result: Authored Date: [id number] Chest Portable Reason: Line Placement; Clinical Question(s): Line Placement COMPARISON: CT chest 06/20/2022 and prior's. FINDINGS: LINES AND TUBES: ET tube tip is 4.3 cm above the philip. Enteric tube terminates below the diaphragm with its side port projecting over the stomach and its tip outside the field of view. New right IJ central venous catheter, terminating at the level of the mid-SVC. Multiple wires overlie the chest. LUNGS AND PLEURA: Patient is slightly rotated towards the right. Worsening right upper lung airspace opacity. Unchanged relative loss of volume of the right lung. Probable small right pleural effusion. The left costophrenic angle is outside the field of view kate small left effusion cannot be excluded. No pneumothorax. HEART, MEDIASTINUM AND JAMILA: Heart is normal in size. Aorta is tortuous and partially calcified. BONES AND SOFT TISSUES: Fractured 3rd most cranial sternotomy wire. IMPRESSION: Appropriately placed right IJ central venous catheter with its tip in the region of the mid SVC. Worsening right upper lobe opacity with new small right pleural effusion. I have personally reviewed the images and I agree with this report. WSN: [id number] Ordering Physician: Elba Verduzco Dictated By: Jeniffer Candelaria MD Dictated Date/Time: 06/20/22 5:02 pm Reviewed By: Jack Castle MD, V Signed By: Jack Castle MD, V Signed Date/Time: 06/20/22 5:07 pm Transcribed By: GRANT Transcribed Date/Time: 06/20/22 4:[address] Abdomen and Pelvis W contrast IV * [facility] , CIS S: TRANSCRIBE Shira ZARCO, Luan: VERIFY Zoltan eMad DO: SIGN Event Display: Result: Authored Date: [id number] CT Abd/Pelvis W/ IV Contrast Only REASON: Aneurysm; Clinical Question(s): Aneurysm; Special Instructions: Runoff from CTA chest for PE TECHNIQUE: Spiral CT through the abdomen and pelvis with IV contrast formatted in 3 planes. 100 cc of Omnipaque 300 was administered intravenously. This study was performed without oral contrast. Weight-based protocol using automatic tube modulation was used to optimize exposure parameters. CTDIvol Body: 11.18 mGy, DLP Body: 1504 mGy*cm. COMPARISON: None. FINDINGS: Warehouse Stocker View Findings, Lines and Tubes: Enteric tube in the gastric lumen. Burton catheter in bladder Visualized Chest: Bronchial wall thickening and mucous plugging in the lower lobes, partially obscured by motion and better visualized on the current CT chest. The heart is normal in size. No pericardial effusion. Diaphragm: Normal. Liver: Normal. Gallbladder: No CT evidence of gallbladder pathology. Bile ducts: No biliary ductal dilation. Spleen: Normal. Pancreas: Normal. Adrenal glands: Normal. Kidneys and ureters: No hydronephrosis, stones, or suspicious masses. Bladder: Normal. Reproductive organs: Unremarkable. Stomach, small bowel, and large bowel: Normal caliber bowel loops without surrounding inflammatory change. A few scattered colonic diverticula. Appendix: Likely seen on image 59 series 605, no evidence of appendicitis. Peritoneum and retroperitoneum: No ascites or pneumoperitoneum. No omental or mesenteric lesions. Lymph nodes: No enlarged lymph nodes. Blood vessels: Severe atherosclerotic vascular calcification but no aneurysm. Fusiform ectasia of the infrarenal abdominal aorta measuring up to 2.3 cm. No evidence of venous thrombosis. Abdominal and pelvic wall: Unremarkable. Bones: No acute abnormality. Bilateral pars defects of L5 with 1.1 cm of anterolisthesis of L5 on S1. Mild compression deformity of L4 appears chronic. IMPRESSION: No acute abnormality in the abdomen and pelvis. Bronchial wall thickening and mucous plugging in the lower lobes, better seen on concurrent CT chest. I have personally reviewed the images and I agree with this report. WSN: [id number] Ordering Physician: Tyron Smith Dictated By: Zoltan Mead DO Dictated Date/Time: 06/27/22 8:38 am Reviewed By: Luan Silva MD Signed By: Luan Silva MD Signed Date/Time: 06/27/22 8:43 am Transcribed By: GRANT Transcribed Date/Time: 06/27/22 8:[address] Head WO contrast * [facility] , CIS S: TRANSCRIBE Bolivar ZARCO, Wojciech D: VERIFY Event Display: Result: Authored Date: [id number] CT Head/Brain W/O Contrast CLINICAL INDICATION: Unresponsive. PRIOR EXAMS: 12/08/2020. TECHNIQUE: Head CT was performed without intravenous contrast, using axial technique and reconstructed in axial and coronal plane. Iterative reconstruction techniques are used to optimize dose and image quality. CTDIvol Head: 42.04 mGy, DLP Head: 757 mGy*cm. FINDINGS: BRAIN: There is no infarct. There is no intracerebral hemorrhage. There is no mass. VENTRICLES, SULCI, AND CISTERNS: The ventricles and sulci are symmetrical and some ozzq-fw-auvvilweyjiumeodfuac change.. WHITE MATTER: Mild white matter abnormality.. EXTRA AXIAL SPACES: There is no abnormal epidural, subdural, or subarachnoid blood or fluid. SKULL: There is no skull fracture. There is evidence of multiple caries and multiple foci of apical root abscess associated with the upper teeth.. PARANASAL SINUSES: The communicating left frontal sinus. Sphenoid sinuses clear. Ethmoids one third opacified. Right maxillary sinus mild mucosal thickening. Left maxillary sinus probably mucosal thickening.. TEMPORAL BONES: The mastoid air cells are clear, as are the middle ear cavities. IMPRESSION: 1. No acute intracranial abnormality. 2. No skull fracture. 3. Gross abnormalities of the dentition in the visualized upper teeth, with numerous cavities and several areas of apical root abscess. WSN: [id number] Ordering Physician: Tyron Smith Dictated By: Wojciech Lutz MD Dictated Date/Time: 06/20/22 12:01 p Reviewed By: Wojciech Lutz MD Signed By: Wojciech Lutz MD Signed Date/Time: 06/20/22 12:01 pm Transcribed By: GRANT Transcribed Date/Time: 06/20/22 11:56 am CTA Chest vessels W contrast IV * [facility] , CIS S: TRANSCRIBE Jere Bryant MD: VERIFY Event Display: Result: Authored Date: [id number] EXAMINATION: CT Angio Chest INDICATION: Reason: Other:; PE suspected, Intermediate prob, positive D-dimer; Clinical Question(s): Pulmonary Embolism TECHNIQUE: Spiral CTA of the chest was performed after rapid IV contrast administration without cardiac gating, triggered by an LOTUS on the main pulmonary artery. Images are formatted in multiple planes using 2-D multiplanar and 3-D maximum intensity projection. 100 cc of Omnipaque 300 was administered intravenously. Weight-based protocol using automatic tube modulation was used to optimize exposure parameters. CTDIvol Body: 7.67 mGy, DLP Body: 345 mGy*cm. COMPARISONS: CT chest from 08/07/2020 ANGIOGRAPHIC FINDINGS: No pulmonary embolism to the subsegmental level. Normal caliber pulmonary arteries. Aorta is unopacified with contrast due to contrast timing. There are moderate aortic calcifications. NON-ANGIOGRAPHIC FINDINGS: Warehouse Stocker View Findings, Lines and Tubes: Endotracheal tube tip approximately 4 cm above the philip. Enteric tube terminates in the stomach. Trachea and Airways: Patent without evidence of tracheal or endobronchial lesion. Debris within theright mainstem bronchus. Areas of mucus plugging throughout the dependent right upper lobe and bilateral lower lobes. Mild bronchial wall thickening most notable in the right lower lobe. Lungs and Pleura: Moderate upper lobe predominant emphysema. Dependent opacity in the posterior right upper lobe. Minimal focal groundglass density in the medial right lung base (604:71). Few calcified granulomas. Small moderate right pleural effusion. No left pleural effusion. No pneumothorax. Mediastinum and jamila: No mass or hematoma. Para-aortic lymph nodes measuring 11 mm and 8 mm (301:41) are similar to 08/07/2020. Unchanged 14 mm subcarinal node (301:58). 11 mm intermediate density along the right lower lobe bronchovascular bundle (301:74) is mildly increased in size from 9 mm. Some contiguous immediate density just superior to this focus, adjacent tothe right lower lobe airways (301:69) had slightly increased from 08/07/2020. No esophageal abnormality. Heart: Heart is at the upper limits of normal for size. No pericardial effusion. Severe coronary artery calcification. Left heart Chambers poorly assessed due to lack of contrast opacification. Priorcoronary artery stenting. Prior CABG. Some gas within the venous system likely iatrogenic. Chest Wall Soft Tissues: Gynecomastia. Diaphragm and upper abdomen: No significant abnormality. Accessory splenic tissue. Bones: No acute abnormality. Old rib fractures. Median sternotomy. Spine degenerative changes. IMPRESSION: No evidence of pulmonary embolism. Dependent opacity in the right upper lobe with areas of airway plugging, possibly representing a combination of atelectasis and aspiration. Small to moderate right pleural effusion. A few mildly enlarged lymph lymph nodes are similar to 08/07/2020. An 11 mm rounded density along the right lower lobe bronchovascular bundle and some contiguous immediate attenuation appears increased from 2020. Follow-up chest CT with contrast a few weeks is recommended following resolution of thepatient's acute illness to ensure no underlying soft tissue mass. A critical result message (Yellow) has been communicated via the Patient Feed system on 06/20/2022 12:26 PM, Message ID [id number]. WSN: [id number] Ordering Physician: Tyron Smith Dictated By: Jere Bryant MD Dictated Date/Time: 06/20/22 12:27 p Reviewed By: Jere Bryant MD Signed By: Jere Bryant MD Signed Date/Time: 06/20/22 12:27 pm Transcribed By: GRANT Transcribed Date/Time: 06/20/22 12:06 pm Patient Care team information Care Team Personnel Name: BanksAlysia conway Position: [facility] RN Member Role: Primary Care Nurse Name: Uma Lara RN Position: [facility] RN Member Role: Primary Care Nurse Name: Gage Vargas RN Position: [facility] RN Member Role: Primary Care Nurse Name: Chele Weaver RN Position: [facility] RN Member Role: Primary Care Nurse Name: Temitope Alva RN Position: [facility] RN Member Role: Primary Care Nurse Name: Dorinda Forrester RN Position: S RN Member Role: Primary Care Nurse Name: Jose Feliz Position: [facility] RN Member Role: Primary Care Nurse Name: Araceli Dixon RN Position: [facility] RN Member Role: Primary Care Nurse Name: Silvina Baird RN Position: [facility] RN Supv Member Role: Primary Care Nurse Name: Dasia Lopez Position: [facility] RN Supv Member Role: Primary Care Nurse Name: Catie Moreira Position: S RN Member Role: Primary Care Nurse Name: Catie Becerra RN Position: [facility] RN Member Role: Primary Care Nurse Name: Steven Chicas RN Position: [facility] RN Member Role: Primary Care Nurse Name: Not on Staff, PCP Position: [facility] Physician (General Medicine) Member Role: PCP Name: Blair Fisher MD Position: [facility] Renal MD Member Role: Lifetime Consulting Physician Address: Address: [address] [facility] [place] [address]- [place] Name: Jose Dickinson RN Position: [facility] RN Member Role: Primary Care Nurse Name: Christin Daniel RN Position: [facility] RN Member Role: Primary Care Nurse Name: Lizz Adams RN Position: [facility] RN Member Role: Primary Care Nurse Name: Elysia Cueva RN Position: [facility] RN Member Role: Primary Care Nurse Name: Dayna Shirley RN Position: [facility] RN Member Role: Primary Care Nurse Name: Jaci Zelaya RN Position: [facility] Botany Technician Member Role: Primary Care Nurse Name: Ezra Mckeon RN Position: [facility] RN Member Role: Primary Care Nurse Name: Octavio Bravo Position: [facility] ED TA [facility] Member Role: Clinical Laboratory Science Professor Name: Vonnie Aceves RN Position: [facility] ED RN W/OE and Tasks Member Role: Patient Care Provider Name: Jose Maldonado MD Position: [facility] ED Medicine MD Member Role: ED Attending Physician Address: Address: [address] [place] [id number]- [place] Name: Deonna Vang Position: [facility] ED OA Charge Member Role: ED Associate Name: Elpidio Jensen MD Position: [facility] Resident Member Role: ED Resident Address: Address: [address] [place] [address] [place] [address]- [place] Care Team Related Persons Name: PAZ LU Address: [address] [place] [address]
--- OUTSIDE RECORDS SUMMARY | 2023-02-02 19:38 | XMS_ITS | Continuity of Care Document ---
Author Name Unknown Organization [facility] ter Address [address] [place] [id number]- Care Team Providers Care Corporate Safety Coordinator Name Role Phone Not on Staff, PCP Primary Care Physician Unavail able Encounter [facility] Date(s): 11/30/22 - 12/07/[address] [address]- Encounter Diagnosis Hyponatremia(Final) - 11/30/22 Discharge Disposition: A-Transfer VNA/Home Health Attending Physician: Gavino Streeter MD Admitting Physician: Ella ZARCO, Miri Brower Referring Physician: Not on Staff, Referring MD Allergies, Adverse Reactions, Alerts No Known Allergies Immunizations Given and Recorded Vaccine Date Status Refusal Reason tetanus/diphtheria/pertussis, acel(Tdap) 05/20/22 Recorded tetanus/diphtheria/pertussis, acel(Tdap) 10/17/19 Recorded tetanus/diphtheria/pertussis, acel(Tdap) 01/01/09 Recorded SARS-CoV-2 (COVID-19) mRNA BNT-162b2 vac 08/04/20 Recorded SARS-CoV-2 (COVID-19) mRNA BNT-162b2 vac 07/14/20 Recorded Medications albuterol-ipratropium 3 mg-0.5 mg/3 ml inhalation solution 3 mL, Inhalation, 4 times a day, # 360 mL, 0 Refills, Maintenance, 10/11/22 12:00:00 EDT, Inhalation Solution, [facility], Partial fill upon patient request if [...] 11/30/20 12:43:00 EDT, Route to Pharmacy Electronically, [facility], Partial fill upon patient [...] opioid drug. Start Date: 06/20/22 Status: Ordered Chantix Continuing Month 1 mg oral tablet 1 tablet = 1 mg, By Mouth, Daily, Start this after finishing starter pack, # 56 tablet, 0 Refills, Acute 01/18/23 12:30:00 EDT, 12/30/22 12:02:00 EDT, Tablet, [facility], Partial fill upon patient request if the prescription is for a brent... Start Date: 12/30/22 Stop Date: 01/18/23 Status: Ordered Chantix Starter Pack 0.5 mg-1 mg oral tablet 1 tablet, By Mouth, 2 times a day, as directed on package labeling, # 53 tablet, 0 Refills, Maintenance, 12/07/22 12:02:00 EDT, Tablet, [facility], Partial fill upon patient request if the prescription is for a schedule II opioid drug.,... Start Date: 12/07/22 Status: Ordered Coreg 3.125 mg oral tablet 3.125 mg, 1, tablet, By Mouth, 2 times a day, # 60 tablet, Refills 2, Tot. Refills 2, Maintenance, 12/01/20 15:01:00 EDT, Route to Pharmacy Electronically, [facility], Partial fill uponpatient request [...] 21:59:38 EDT Start Date: 11/06/18 Status: Ordered Nicoderm C-Q Clear 7 mg/24 hr transdermal film, extended release 1 patch, Topically, Daily, for 7 days, apply every 24H to any part of the skin. remove old patch before reapplying new one. can rotate site to limit skin irritation, # 30 patch, 0 Refills, Acute 12/14/22 12:01:00 EDT, 12/07/22 12:01:00 EDT, Patch, Luis F... Start Date: 12/07/22 Stop Date: 12/14/22 Status: Ordered pantoprazole 40 mg oral delayed release tablet 1 tablet = 40 mg, By Mouth, Daily, # 30 tablet, 0 Refills, Maintenance, 07/09/22 11:27:00 EDT, EC Tablet, 180, cm, 07/09/22 8:03:00 EDT, Height, 78.2, kg, 06/20/22 14:31:00 EST, Dry Weight Start Date: 07/09/22 Status: Ordered QUEtiapine 150 mg oral tablet 1 tablet = 150 mg, By Mouth, Daily at bedtime, # 30 tablet, 0 Refills, Maintenance, 12/07/22 12:05:00 EDT, [facility], Partial fill upon patient request if the prescription is for a schedule II opioid drug., 180, cm, 12/07/22 8:04:00 EDT... Start Date: 12/07/22 Status: Ordered Ventolin HFA 108 mcg/inh inhalation [...] Results Orders for Microbiology Reports Name Date Sputum Culture w/ Gram Smear 12/02/22 Microbiology Reports TEST:Sputum Culture STATUS:Auth (Verified) BODY SITE: SOURCE:EXPECT COLLECTED DATE/TIME:12/02/22 12:46 PM Sputum Culture SPECIMEN DESCRIPTION : EXPECTORATED SPUTUM SPECIAL REQUESTS : NONE GRAM STAIN : 1+ SQ.EPITHELIAL CELLS 1+ GRAM POSITIVE COCCI 1+ GRAM NEGATIVE RODS CULTURE : 4+ NORMAL RAMAN REPORT STATUS : FINAL 12/04/2022 Radiology Reports * Exam Date Time Procedure Performing Provider Status 11/30/22 10:[address] Chest W/O Contrast Colon , Vane; Auth (Verified) Notes: (CT Chest W/O Contrast) Reason For Exam: Chest Pain;Other: RESULT: CT Chest W/O Contrast CT Chest W/O Contrast Hx of Present Illness: From home, pt had two falls earlier today - hit R side - denies Headstrike, + thinners, hemoptysis after fall. reports SOB since COVID 6 months ago, for EMS 91% RA, placed on O2 w improvement to 97%; Reason: Chest Pain. Clinical Question(s): Interstitial Alveolar Infiltration. TECHNIQUE: Helical CT scan of the chest without IV contrast, formatted in 3 planes. Weight-based protocol was performed using automatic exposure control. CTDIvol Body: 9.96 mGy, DLP Body: 414 mGy*cm. COMPARISON: Correlation with CT angiogram chest 06/20/2022. FINDINGS: Field Operator view findings, lines and tubes: None. Trachea and airways: Patent without evidence of tracheal or endobronchial lesion. Debris within thedistal trachea/proximal right mainstem bronchus (601:37). A few scattered foci of mucus plugging inthe dependent lower lobes and right upper lobe. Mild bronchial wall thickening in the right lower lobe. Lungs and pleura: Severe upper lobe predominant centrilobular and paraseptal emphysema. Slightly decreased dense opacity in the dependent portion of the right upper lobe. Mild bibasilar atelectasis. A few scattered calcified granulomas. Limited evaluation of the previously noted rounded density along the right lower lobe bronchovascular bundle due to noncontrast examination (602:54). No effusion or pneumothorax. Mediastinum and jamila: No mass or hematoma. Unchanged para-aortic lymph nodes nodes measuring 1.3 cmand 0.9 cm in the short axis (previously 1.3 cm in 0.9 cm on 06/20/2022.) (602:30, 31).Unchanged 1.4cm subcarinal lymph node (602:48). Small type I hiatal hernia. Normal thyroid. Heart: Heart is normal in size. No pericardial effusion. Severe coronary artery calcification. Status post CABG Aorta: Mild dilatation of the thoracic aorta up to 4.0 cm at the level of the main pulmonary artery(603:63). Moderate thoracic aortic vascular calcification. Pulmonary arteries: Normal caliber. Chest wall soft tissues: Mild bilateral gynecomastia. Diaphragm: Intact. Upper abdomen: No significant abnormality. Incidentally noted accessory splenic tissue. Bones: No acute abnormality. Status post median sternotomy. Moderate, multilevel degenerative changes of the visualized spine. Old rib fractures. IMPRESSION: Slightly decreased dense consolidation in the dependent portion of the right upper lobe. There are interspersed areas of mild mucous plugging. This may represent a focus of evolving/resolving aspiration and/or atelectasis. Limited evaluation of a right lower lobe bronchovascular bundle density seen on prior examination due to noncontrast examination. Further evaluation and characterization with nonurgent CT chest with contrast can be considered to assess for progression/resolution. Unchanged prominent mediastinal lymph nodes. I have personally reviewed the images and I agree with this report. WSN: [id number] Ordering Physician: Anne Marie Trent Dictated By: Riccardo Stock MD Dictated Date/Time: 11/30/22 10:55 p Reviewed By: Geronimo Mahan MD Signed By: Geronimo Mahan MD Signed Date/Time: 11/30/22 11:00 pm Transcribed By: GRANT Transcribed Date/Time: 11/30/22 10:48 pm * Exam Date Time Procedure Performing Provider Status 11/30/22 10:[address] Cervical Spine W/O Contrast Colon , Vane; Auth (Verified) Notes: (CT Cervical Spine W/O Contrast) Reason For Exam: Neck trauma, dangerous injury mechanism;Other: RESULT: CT Cervical Spine W/O Contrast CT Head/Brain W/O Contrast, CT Cervical Spine W/O Contrast INDICATION: Hx of Present Illness: From home, pt had two falls earlier today - hit R side - denies Headstrike, + thinners, hemoptysis after fall. reports SOB since COVID 6 months ago, for EMS 91% RA,placed on O2 w improvement to 97%; Reason: Trauma; Clinical Question(s): Hematoma; Order Comment: TECHNIQUE: Noncontrast head CT using axial technique was reconstructed in axial and coronal planes.Noncontrast spiral CT through the cervical spine was formatted in 3 planes. Automatic tube modulation was used for the cervical spine and iterative dose reconstruction was used for both the head and cervical spine to optimize scan parameters and image quality. CTDIvol Body: 22.83 mGy, DLP Body: 604 mGy*cm. CTDIvol Head: 49.77 mGy, DLP Head: 896 mGy*cm. COMPARISON: Head CT dated 06/20/2022. FINDINGS: Field Operator View Findings, Lines and Tubes: None. BRAIN AND EXTRA-AXIAL SPACES: No parenchymal hemorrhage, midline shift, or mass effect. Sargent-white matter differentiation is wellpreserved. No acute infarct. Moderate prominence of the ventricles and sulci consistent with parenchymal volume loss, more than expected for age. Mild low-density white matter changes. No subarachnoid hemorrhage. No subdural or epidural collection. CALVARIUM, SKULL BASE, AND SOFT TISSUES: No fractures or suspicious bony lesions. The paranasal sinuses and mastoid air cells are clear. Visualized orbits and globes are intact. The extracranial soft tissues are unremarkable. Partial cerumen impaction in both external ear canals. CERVICAL SPINE: No acute fracture. No acute osseous abnormalities. Normal alignment. No locked or perched facet. Moderate multilevel degenerative disc space narrowingand end plate irregularity. OTHER BONES: There are multiple dental caries and periapical lucencies with the largest in the left maxillary incisor. Healed left posterior first rib fracture. CERVICAL SOFT TISSUES AND LUNG APICES: Dense calcifications in carotid bulbs. Severe emphysematous changes in the lung apices. IMPRESSION: 1. No acute abnormality of the head or cervical spine. 2. Multiple dental caries and periapical lucencies. WSN: [id number] Ordering Physician: Anne Marie Trent Dictated By: Fawad Rojas MD Dictated Date/Time: 11/30/22 10:33 p Reviewed By: Fawad Rojas MD Signed By: Fawad Rojas MD Signed Date/Time: 11/30/22 10:33 pm Transcribed By: GRANT Transcribed Date/Time: 11/30/22 10:18 pm * Exam Date Time Procedure Performing Provider Status 11/30/22 10:[address] Head/Brain W/O Contrast Colon , Tat hanna; Auth (Verified) Notes: (CT Head/Brain W/O Contrast) Reason For Exam: Trauma RESULT: CT Head/Brain W/O Contrast CT Head/Brain W/O Contrast, CT Cervical Spine W/O Contrast INDICATION: Hx of Present Illness: From home, pt had two falls earlier today - hit R side - denies Headstrike, + thinners, hemoptysis after fall. reports SOB since COVID 6 months ago, for EMS 91% RA,placed on O2 w improvement to 97%; Reason: Trauma; Clinical Question(s): Hematoma; Order Comment: TECHNIQUE: Noncontrast head CT using axial technique was reconstructed in axial and coronal planes.Noncontrast spiral CT through the cervical spine was formatted in 3 planes. Automatic tube modulation was used for the cervical spine and iterative dose reconstruction was used for both the head and cervical spine to optimize scan parameters and image quality. CTDIvol Body: 22.83 mGy, DLP Body: 604 mGy*cm. CTDIvol Head: 49.77 mGy, DLP Head: 896 mGy*cm. COMPARISON: Head CT dated 06/20/2022. FINDINGS: Field Operator View Findings, Lines and Tubes: None. BRAIN AND EXTRA-AXIAL SPACES: No parenchymal hemorrhage, midline shift, or mass effect. Sargent-white matter differentiation is wellpreserved. No acute infarct. Moderate prominence of the ventricles and sulci consistent with parenchymal volume loss, more than expected for age. Mild low-density white matter changes. No subarachnoid hemorrhage. No subdural or epidural collection. CALVARIUM, SKULL BASE, AND SOFT TISSUES: No fractures or suspicious bony lesions. The paranasal sinuses and mastoid air cells are clear. Visualized orbits and globes are intact. The extracranial soft tissues are unremarkable. Partial cerumen impaction in both external ear canals. CERVICAL SPINE: No acute fracture. No acute osseous abnormalities. Normal alignment. No locked or perched facet. Moderate multilevel degenerative disc space narrowingand end plate irregularity. OTHER BONES: There are multiple dental caries and periapical lucencies with the largest in the left maxillary incisor. Healed left posterior first rib fracture. CERVICAL SOFT TISSUES AND LUNG APICES: Dense calcifications in carotid bulbs. Severe emphysematous changes in the lung apices. IMPRESSION: 1. No acute abnormality of the head or cervical spine. 2. Multiple dental caries and periapical lucencies. WSN: [id number] Ordering Physician: Anne Marie Trent Dictated By: Fawad Rojas MD Dictated Date/Time: 11/30/22 10:33 p Reviewed By: Fawad Rojas MD Signed By: Fawad Roajs MD Signed Date/Time: 11/30/22 10:33 pm Transcribed By: GRANT Transcribed Date/Time: 11/30/22 10:18 pm * Exam Date Time Procedure Performing Provider Status 11/30/22 8:32 PM Chest Portable Taran Sarmiento; Isaac (Marcella ified) Notes: (Chest Portable) Reason For Exam: Shortness of Breath RESULT: Chest Portable Chest Portable Hx of Present Illness: From home, pt had two falls earlier today - hit R side - denies Headstrike, + thinners, hemoptysis after fall. reports SOB since COVID 6 months ago, for EMS 91% RA, placed on O2 w improvement to 97%; Reason: Shortness of Breath; Clinical Question(s): CHF COMPARISON: 10/08/2022 FINDINGS: LINES AND TUBES: None. LUNGS AND PLEURA: Similar appearance to previous examination. There may be some mild prominence of the pulmonary vasculature. Possible mild blunting of the costophrenic angles. No pneumothorax. HEART, MEDIASTINUM AND JAMILA: Heart is normal in size. Normal mediastinal and hilar contour. BONES AND SOFT TISSUES: Sternotomy sutures noted. IMPRESSION: Nonspecific appearance. Pulmonary vascular appears prominent similar to previous examination. Possible trace pleural effusions. WSN: [id number] Ordering Physician: Anne Marie Trent Dictated By: Geronimo Mahan MD Dictated Date/Time: 11/30/22 9:24 pm Reviewed By: Geronimo Mahan MD Signed By: Geronimo Mahan MD Signed Date/Time: 11/30/22 9:24 pm Transcribed By: GRANT Transcribed Date/Time: 11/30/22 9:23 pm Vital Signs Most recent to oldest [Reference Range]: 1 2 3 Height 180 cm (12/07/22 2:25 PM) 180 cm (12/07/22 8:04 AM) 180 cm (12/07/22 3:43 AM) Weight 86 kg (12/05/22 5:55 AM) 87.8 kg (12/03/22 6:13 AM) 89.1 kg (12/01/22 5:56 PM) Oxygen Saturation [94-100 %] 97 % (12/07/22 2:25 PM) 98 % (12/07/22 8:04 AM) 97 % (12/07/22 3:43 AM) Pulse Rate [55-90 bpm] 92 bpm *H* (12/07/22 2:25 PM) 63 bpm (12/07/22 8:04 AM) 68 bpm (12/07/22 3:43 AM) Body Mass Index [18.5-24.99 kg/m2] 27.5 kg/m2 *H* (12/01/22 5:56 PM) Blood Pressure [90-138/55-84 mm Hg] 99/65mm Hg (12/07/22 2:25 PM) 113/67mm Hg (12/07/22 8:04 AM) 94/58mm Hg (12/07/22 3:43 AM) Respiratory Rate [16-30 br/min] 18 br/min (12/07/22 2:25 PM) 18 br/min (12/07/22 8:04 AM) 18 br/min (12/07/22 3:43 AM) Temperature [96.8-100.4 DegF] 97.6 DegF (12/07/22 2:25 PM) 98.2 DegF (12/07/22 8:04 AM) 97.7 DegF (12/07/22 3:43 AM) Liters per Minute 2 L/min (12/04/22 11:48 AM) 2 L/min (12/04/22 7:30 AM) 2 L/min (12/04/22 3:00 AM) Mode of Delivery (Oxygen) Room air (12/07/22 2:25 PM) Room air (12/07/22 8:04 AM) Room air (12/07/22 3:43 AM) Blood pressure sites Arm, left (12/07/22 2:25 PM) Arm, right (12/07/22 8:04 AM) Arm, right (12/07/22 3:43 AM) Temperature Route Oral (12/07/22 2:25 PM) Oral (12/07/22 8:04 AM) Axillary (12/07/22 3:43 AM) Dry Weight 89.1 kg (12/01/22 5:56 PM) Weight Obtained Via Bed scale (12/05/22 5:55 AM) Social History Social History Type Response Smoking Status 10 or more cigarette s (1/2 pack or more)/day in last 30 days entered on: 11/28/20 Sex Admission evaluation note * David ZARCO, Feng: PERFORM Event Display: Admission Note Authored Date: [id number] Patient: ??ALBERTO LEVI ? Age:??67 Years?Sex:??Male?:??1955?? Chief Complaint/Reason for Consultation Pt from home w/ SOB - wheezing - 91% RA, given neb, up to 97%. Fell this AM, hit R side - has had hemoptysis starting today. - headstrike, + thinners. History of Present Illness ??67-year-old with a history of CAD s/p CABG, ischemic cardiomyopathy/HFrEF (30- 35%), tobacco use disorder, COPD not on home O2, mood disorder, chronic febrile neutropenia with prior history EtOH/substance abuse who presents to the emergency department shortness of breath. ??He states he fell a couple of days ago he tripped over his feet and today he was walking up the steps of his porch when he fell and landing on his right side. ??His niece was concerned because he was bleeding from his mouthand had some shortness of breath and so they called EMS.? Patient was noted to have dried and active bleeding around the mouth, which stopped in ER. ??Patient is not a good history provider. ??I talked to patient's niece??Ms. Sparks , who helped me with the history. She did not notice patient tohave any fall, but aware that he was having shortness of breath??for last week??or so.??Patient??did not have any fever,??abdominal pain, problems with urination or bowel movement. Pt is found to have significant SOB and hypoxia in the ER, along with hyponatremia. Now he is admitted for further shilo gement. Review of Systems All systems reviewed, negative except for as mentioned above.?? Objective Vital Signs?? Temperature: 98.1 DegF (12/01/22 13:24:00) Temperature Route: Oral (12/01/22 13:24:00) Pulse Rate: 80 bpm (12/01/22 13:24:00) Respiratory Rate: 18 br/min (12/01/22 13:24:00) Systolic Blood Pressure:??159 mm Hg??High (12/01/22 13:24:00) Diastolic Blood Pressure: 72 mm Hg (12/01/22 13:24:00) Blood pressure sites: Arm, left (12/01/22 13:24:00) Mean Arterial Pressure: 103 mm Hg (11/30/22 19:44:00) Pulse Pressure: 45 mm Hg (12/01/22 04:49:00) Oxygen Saturation: 94 % (12/01/22 13:24:00) Liters per Minute: 2 L/min (12/01/22 13:24:00) Mode of Delivery (Oxygen): Nasal cannula (12/01/22 13:24:00) Early Warning Score: 7 (12/01/22 13:43:28) ? Basic ADLs Ambulatory devices needed: Walker (11/30/22) ? Physical Exam General: ??Alert, no acute distress. ?? Skin: ??Warm, dry. ?? Head: ??Normocephalic, atraumatic. ?? Eye: ??Extraocular movements are intact, normal conjunctiva. ?? Ears, nose, mouth and throat: ??Oral mucosa moist, Poor dentition,??no active bleeding from ??gingiva , had previously from??one of the right front tooth. ?? Cardiovascular: ??Normal peripheral perfusion.?? Respiratory: ??Diminished bilaterally with poor air movement and?? mild wheezing.?Mild crackles near the bases Chest wall: ??No tenderness.?? Back: ??Nontender, Normal range of motion. ?? Musculoskeletal: ??Normal ROM, normal strength. ??Has L 5th toe dressing in place, soaked in blood,requested RN to change dressing. Gastrointestinal: ??Soft, Nontender, Non distended. ?? Neurological: ??Alert and oriented to person, place, time. No focal neurological deficit observed. ?? Assessment/Plan Diagnoses Acute exacerbation of chronic obstructive pulmonary disease (COPD) ??(J44.1) Acute hypoxemic respiratory failure ??(J96.01) Acute systolic heart failure ??(I50.21) CAD (coronary atherosclerotic disease) ??(I25.10) Epistaxis ??(R04.0) Hyperlipidemia ??(E78.5) Hyponatremia ??(E87.1) SIADH (syndrome of inappropriate ADH production) ??(E22.2) ?? Acute hypoxemic respiratory failure Acute systolic heart failure CAD s/p CABG 2006 Chronic HFrEF (EF 30-35%) Acute exacerbation of COPD Patient has ongoing shortness of breath for last couple of weeks His breathing was worse yesterday Lungs sound decreased,??with wheezing??and mild crackles at the bases Patient with proBNP of 4818 CXR trace pleural effusion, pulmonary vascular prominence CT chest showed slightly decreased dense consolidation in the dependent portion of the right upper lobe, areas of mild mucous plugging, involving/resolving aspiration and/or atelectasis. Last echo reviewed done in?? May 2022 Will give IV ??Lasix 40 mg daily, patient takes 20 mg orally at home Patient also received methylprednisolone 125 mg in the ER. Will continue prednisone 40 mg daily Continue DuoNebs Anoro Ellipta not on formulary, will give Breo Ellipta while inpatient. Continue home apixaban 5 mg twice daily Aspirin 81 mg Carvedilol 3.125 mg 2 times a day, Entresto 2 times a day- with BP parameter Repeat echo Cardiac monitoring Daily weight, intake output Continue monitoring respiratory status ?? Hyponatremia SIADH Patient with significant hyponatremia of 122, mildly improved to 125 Renal team is on board Fluid restrictions Will hold on olanzapine Psychiatry consult to evaluate patient for medication adjustment Continue to monitor lites Follow-up with the renal team ?? Epistaxis-- resolved. Fall Patient had episode of epistaxis,??mentioned that he had fall few days back and yesterday Now bleeding stopped , H/H stable Resumed Eliquis. PT consult. ?? Unspecified Right lung density CT chest w/o contrast Limited evaluation of a right lower lobe bronchovascular bundle density seen on prior examination due to noncontrast examination. Further evaluation and characterization with nonurgent CT chest with contrast can be considered to assess for progression/resolution. Follow up as outpatient. ?? History of AFIB Continue home Eliquis. ?? GERD PPI. ?? Hyperlipidemia Continue atorvastatin home dose of 40 mg daily ? DVT prophylaxis: Patient is already on apixaban CODE STATUS: Full code, Discussed with patient Ongoing medical necessity: Echo hypoxic respiratory failure, acute CHF/acute COPD management, echo pending, PT consult ?? (This document has been dictated using [employer] dictation software. Please do not hesitate to contact the author for clarification of any unintentional errors should it be needed.) Histories Allergies Allergies ?(Active and Proposed Allergies Only) NKA? (Severity: Unknown severity, Onset: Unknown) ? Past Medical History/Problem List Active Problems??(7) CAD (coronary artery disease) COPD with emphysema HTN (hypertension) Hyperlipidemia Mood disorder Polysubstance abuse Tobacco use ? Past Surgical History No surgery history documented. ? Social History Alcohol Details:??Use: Current. ??Frequency: Daily. Substance Abuse Details:??Use: Current. ??Type: Cocaine, Heroin. Tobacco Details:??Use: 10 or more cigarettes (1/2 pack or more)/day in last 30 days. ? Family History No significant family history of lung disease. ? Medications Home Medications Albuterol (Ventolin HFA 108 [...] tablet)?TAKE 1 TABLET BY MOUTH EVERY DAY Olanzapine (olanzapine 20 mg oral tablet)?1?tab(s)?20?Milligram?By Mouth?Daily Pantoprazole (pantoprazole 40 mg oral delayed release tablet)?1?tab(s)?40?Milligram?By Mouth?Daily sacubitril-valsartan (Entresto 24 mg-26 mg oral tablet)?1?tab(s)?By Mouth?2 times a day Thiamine (Vitamin B1 100 mg oral tablet)?100?Milligram?1?tablet?By Mouth?Daily?for 10?Days umeclidinium-vilanterol (Anoro Ellipta 62.5 mcg-25 mcg/inh inhalation powder)?INHALE 1 PUFF DAILY urea powder (ure-Na 15 g oral powder for reconstitution)?30?gram?By Mouth?Daily ? Results Abnormal Labs ?? BLOOD COUNT & DIFF ??Abs. Imm Gran ??0.0 k/mm3 () ??11/30/2022 20:31 ??Abs. NRBC ??0.0 k/mm3 () ??12/01/2022 12:32 ??Eos % ??8.5 % (High) ??11/30/2022 20:31 ??Hct ??31.7 % (Low) ??12/01/2022 12:32 ??Hgb ??11.5 Gm/dL (Low) ??12/01/2022 12:32 ??Imm Gran ??0.4 % () ??11/30/2022 20:31 ??MPV ??8.8 femtoliters (Low) ??12/01/2022 12:32 ??Nucleated RBC (Automated) ??0.0 #/100 WBC'S () ??12/01/2022 12:32 ??RBC ??3.46 m/mm3 (Low) ??12/01/2022 12:32 ??RDW-SD ??42.0 femtoliters () ??12/01/2022 12:32 ??WBC ??3.2 k/mm3 (Low) ??12/01/2022 12:32 ? CHEM GENERAL ??BUN ??7 mg/dL (Low) ??11/30/2022 20:31 ??Chloride ??89 mmol/L (Low) ??12/01/2022 06:42 ??Creatinine-Blood ??0.6 mg/dL (Low) ??11/30/2022 20:31 ??Estimated GFR Creatinine ??106 ML/MIN/1.73 M2 () ??11/30/2022 20:31 ??Osmolality ??254 mOs/kg (Low) ??12/01/2022 01:52 ??Sodium ??122 mmol/L (Low) ??12/01/2022 06:42 ? COAG ??INR ??1.2 (High) ??11/30/2022 20:31 ??Protime (PT) ??12.6 seconds (High) ??11/30/2022 20:31 ? MISC. CHEMISTRY ??Hold Green Top ??SPECIMEN DISCARDED AFTER 1 WEEK () ??11/30/2022 20:31 ? URINE OTHER ??Sodium, Urine Random ??49 mmol/L () ??12/01/2022 00:01 ? VIROLOGY ??COVID-19 by RT-PCR ??NEGATIVE () ??11/30/2022 23:30 ? Note: Critical results are displayed in red. ? Imaging(s) ?CT Head/Brain W/O Contrast ?? 11/30/2022 22:12??by Fawad Rojas MD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 41 units/L 12/01/22 12:32:00 Bilirubin, Total 0.9 mg/dL 0 mg/dL - 1.2 mg/dL 12/01/22 12:32:00 Uric Acid 3.6 mg/dL 2.6 mg/dL - 8.7 mg/dL 12/01/22 12:32:00 Nt-Probnp 4818 pg/mL??High 0 pg/mL - 125 pg/mL 12/01/22 12:32:00 High Sensitivity Troponin (HSTnT) 11 ng/L ?? 12/01/22 16:33:00 TSH 3.46 uIU/mL 0.4 uIU/mL - 4.2 uIU/mL 12/01/22 12:32:00 Hold Green Top SPECIMEN DISCARDED AFTER 1 WEEK ?? 11/30/22 20:31:00 Hold Green Top SPECIMEN DISCARDED AFTER 1 WEEK ?? 11/30/22 20:31:00 COVID-19 by RT-PCR NEGATIVE ?? 11/30/22 23:30:00 Creatinine, Urine Random 78.7 mg/dL ?? 12/01/22 16:25:00 Sodium, Urine Random 36 mmol/L ?? 12/01/22 16:25:00 Sodium, Urine Random 49 mmol/L ?? 12/01/22 00:01:00 Urea Nitrogen, Urine Random 650 mg/dL ?? 12/01/22 16:25:00 Osmolality, Urine Random 440 mOsm/kg 50 mOsm/kg - 1400 mOsm/kg 12/01/22 16:25:00 Osmolality, Urine Random 337 mOsm/kg 50 mOsm/kg - 1400 mOsm/kg 12/01/22 00:01:00 Est Creatinine Clearance 126.72 mL/min ?? 12/01/22 18:08:38 ? * Lianna ZARCO, Tae: MODIFY, PERFORM Event Display: Consultation Note Authored Date: [id number] Patient: ??ALBERTO LEVI ? Age:??67 Years?Sex:??Male?:??1955? Attending:??Jimenez??MD Janene Admission Date: 11/30/2022 ?? Chief Complaint and Reason for Consultation ?? History of Present Illness ??67-year-old with a history of CAD s/p CABG, ischemic cardiomyopathy/HFrEF (30- 35%), tobacco use disorder, COPD not on home O2, mood disorder, chronic febrile neutropenia with prior history EtOH/substance abuse who presents to the emergency department shortness of breath. ??He states he fell a couple of days ago he tripped over his feet last night while??he was walking up the steps of his porch when he fell and landing on his right side. ??His niece was concerned because he was bleeding from his mouth and had some shortness of breath and so they called EMS.?Patient presented to the ED with a blood pressure of??111/99,??heart rate of??78 bpm,??his lab showed a hemoglobin of 11 and hematocrit of 29,??white blood cell of 5.1,??a low sodium of 122,??potassium of 4,??low chloride of 85,??aBUN of 7,??and a creatinine of 0.6.?CT scan of patient's head??and??C-spine??came back negative??and CT scan of the chest showed??right??lower lobe consolidation??which was concerning for??possible aspiration/atelectasis. ??Nephrology was consulted??regarding management of patient's hyponatremia.?? Patient was placed on a fluid restriction with electrolytes??monitoring??every 4 hours. Patient was seen this morning.?? On questioning patient states??he??fell because he tripped on his legs??while climbing the staircase. ??He??eats??cereals and eggs for breakfast,??sandwich and milk??for lunch??and??for dinner he eats rice with sauce.?? He states that he is not a big water drinker??but drinks 3 cups of coffee in the day.?? Patient lives with his niece and her .?? On physical exam patient was noted to have??bilateral pitting edema.?? Wheezing was heard??on auscultation of chest.?? POCUS ultrasound of the chest showed??multiple B-lines??concerning for pulmonary edema. ?? Past Medical History Active Problems??(7) CAD (coronary artery disease) COPD with emphysema HTN (hypertension) Hyperlipidemia Mood disorder Polysubstance abuse Tobacco use ? Objective Vital Signs (last 24 hrs) ?Last Charted Heart Rate Peripheral?80 bpm ??(DEC 01) Resp Rate?18 br/min ??(DEC 0124) SBP?H??159mm Hg ??(DEC 01) DBP?72 mm Hg ??(DEC 01) SpO2?94 % ??(DEC 01) No qualifying data available. ?? Intake/Output? No Data Available ?? Physical Exam General: ??Alert, no acute distress. ?? Skin: ??Warm, dry. ?? Head: ??Normocephalic, atraumatic. ?? Eye: ??Extraocular movements are intact, normal conjunctiva. ?? Ears, nose, mouth and throat: ??Oral mucosa moist, Poor dentition,??no active bleeding from ??gingiva , had previously from??one of the right front tooth. ?? Cardiovascular: ??Normal peripheral perfusion.?? Respiratory: ??Diminished bilaterally with poor air movement and?? mild wheezing.?Mild crackles near the bases Chest wall: ??No tenderness.?? Back: ??Nontender, Normal range of motion. ?? Musculoskeletal: ??Normal ROM, normal strength. ??Has L 5th toe dressing in place, soaked in blood,requested RN to change dressing. Gastrointestinal: ??Soft, Nontender, Non distended. ?? Neurological: ??Alert and oriented to person, place, time. No focal neurological deficit observed. ?? Dialysis access: None ?? BLOOD COUNT & DIFF WBC 3.2 k/mm3 (Low)?? 12/01/2022 12:32 RBC 3.46 m/mm3 (Low)?? 12/01/2022 12:32 Hgb 11.5 Gm/dL (Low)?? 12/01/2022 12:32 Hct 31.7 % (Low)?? 12/01/2022 12:32 MCV 91.6 femtoliters ()?? 12/01/2022 12:32 MCH 33.2 pg ()?? 12/01/2022 12:32 MCHC 36.3 g/dL ()?? 12/01/2022 12:32 Platelet Count 187 k/mm3 ()?? 12/01/2022 12:32 RDW-SD 42.0 femtoliters ()?? 12/01/2022 12:32 MPV 8.8 femtoliters (Low)?? 12/01/2022 12:32 Nucleated RBC (Automated) 0.0 #/100 WBC'S ()?? 12/01/2022 12:32 Abs. NRBC 0.0 k/mm3 ()?? 12/01/2022 12:32 Abs. Neut 2.9 k/mm3 ()?? 11/30/2022 20:31 Abs. Lymph 1.2 k/mm3 ()?? 11/30/2022 20:31 Abs. [place] 0.5 k/mm3 ()?? 11/30/2022 20:31 Abs. Eo 0.4 k/mm3 ()?? 11/30/2022 20:31 Abs. Baso 0.0 k/mm3 ()?? 11/30/2022 20:31 Neut % 57.9 % ()?? 11/30/2022 20:31 Lymph % 23.1 % ()?? 11/30/2022 20:31 [place] % 9.3 % ()?? 11/30/2022 20:31 Eos % 8.5 % (High)?? 11/30/2022 20:31 Baso % 0.8 % ()?? 11/30/2022 20:31 Imm Gran 0.4 % ()?? 11/30/2022 20:31 Abs. Imm Gran 0.0 k/mm3 ()?? 11/30/2022 20:31 ?? CARDIAC Nt-Probnp 4818 pg/mL (High)?? 12/01/2022 12:32 ?? CHEM GENERAL Sodium 126 mmol/L (Low)?? 12/01/2022 12:32 Potassium 4.2 mmol/L ()?? 12/01/2022 12:32 Chloride 90 mmol/L (Low)?? 12/01/2022 12:32 Bicarbonate Level 26 mmol/L ()?? 12/01/2022 12:32 Anion Gap 11 ()?? 12/01/2022 12:32 Glucose Level 190 mg/dL (High)?? 12/01/2022 12:32 BUN 9 mg/dL ()?? 12/01/2022 12:32 Creatinine-Blood 0.6 mg/dL (Low)?? 12/01/2022 12:32 Estimated GFR Creatinine 107 ML/MIN/1.73 M2 ()?? 12/01/2022 12:32 Osmolality 254 mOs/kg (Low)?? 12/01/2022 01:52 Calcium 9.2 mg/dL ()?? 12/01/2022 12:32 Protein, Total 6.4 Gm/dL ()?? 12/01/2022 12:32 Albumin 4.2 Gm/dL ()?? 12/01/2022 12:32 AG Ratio 1.9 ()?? 12/01/2022 12:32 Alkaline Phosphatase 115 units/L ()?? 12/01/2022 12:32 AST (SGOT) 19 units/L ()?? 12/01/2022 12:32 ALT (SGPT) 12 units/L ()?? 12/01/2022 12:32 Bilirubin, Total 0.9 mg/dL ()?? 12/01/2022 12:32 Uric Acid 3.6 mg/dL ()?? 12/01/2022 12:32 ?? COAG INR 1.2 (High)?? 12/01/2022 12:32 Protime (PT) 12.5 seconds (High)?? 12/01/2022 12:32 ?? ENDOCRINE/TUMOR MARKER TSH 3.46 uIU/mL ()?? 12/01/2022 12:32 ?? MISC. CHEMISTRY Hold Green Top SPECIMEN DISCARDED AFTER 1 WEEK ()?? 11/30/2022 20:31 ?? URINE OTHER Sodium, Urine Random 49 mmol/L ()?? 12/01/2022 00:01 Osmolality, Urine Random 337 mOsm/kg ()?? 12/01/2022 00:01 ?? VIROLOGY COVID-19 by RT-PCR NEGATIVE ()?? 11/30/2022 23:30 ?? No qualifying data available ? Assessment/Plan 67-year-old male with history of??COPD, CHF, alcohol use disorder, ischemic cardiomyopathy,??IV drug use, and??tobacco use disorder??who presented to the ED??after falling from stairs??last night.?? Patient was noted to??have??hyponatremia??for which??nephrology was consulted. ? Hyponatremia Patient presented to the ED after a fall??his labs workup??showed??a sodium level of 122,??his serum osmolarity of??254,??urine osmolarity of 337??and urine sodium of 49. Low suspicion for??psychogenic polydipsia/tea and toast syndrome??given patient had a??an elevated??urine osmolarity. Concerns for SIADH.?? SIADH would explain??the patient's low serum osmolarity??and inappropriate??elevation of his??urine osmolarity.?? Of note patient has??had previous??admissions??in the past??for hyponatremia.?? 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 Recommend??consulting??psych regarding holding patient's olanzapine??and?? consider starting patient on 15 mg urea twice daily. Concerns for??hyponatremia secondary to??acute congestive heart failure.?? On physical examination patient was??noted to have??pedal edema??and chest x-ray showed some bilateral infiltrates??which isconcerning for pulmonary edema.?? Patient was also noted to have??B-lines on??POCUS of chest??with non-collapsing IVC.?? His labs showed a BNP of??4818??which is concerning for heart failure.?? Patient most recent echocardiography done on?? showed??worsening left ventricular function. ??We feel patient might benefit from a trial of IV Lasix. ? Recommendations - Discontinue??20 mg olanzapine - Start??15 mg urea twice daily - Start 40 mg IV Lasix twice daily - Continue fluid restriction - Continue to monitor electrolytes ? -Recommendations communicated to primary team, we will continue to follow ?? Patient was seen and discussed with attending, Dr Jimenez Watters ?? Tae Dsouza MD.? PGY 1, Internal medicine Available on [employer] ??12/01/2022 ?? * Janene Gaona MD: PERFORM Event Display: Consultation Note Authored Date: [id number] PT SEEN WITH RESIDENT IN ER. This case of hyponatremia is complicated. He has acute on chronic hyponatremia. Presently his CXR and chest US suggest mild interstitial pulm edema/CHF-he has a low EF. So there is an element of acute heart failure contributing to acute hyponatremia. The high urine sodium reflecrts diuretic effect and we are ordering FeUrea and FeUric acid. 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 Plan is to diuresietoday, add urea, fluid restrict and monitor sodium Note * Elysia Cueva RN: PERFORM Event Display: Discharge/Transfer Note Hospital Authored Date: [id number] Nursing Discharge Note Entered On: 12/07/2022 13:58 EDT Performed On: 12/07/2022 13:57 EDT by Elysia Cueva RN Nursing Discharge Note 2 Discharge Time : 12/07/2022 18:30 EDT Mariella Mcnair RN - 12/07/2022 18:32 EDT Discharge Level of Care at Discharge : Homehealth/VNA Discharge VNA/Hospice/Home Care(v001) : [facility] Patient Left Unit Via : Wheelchair Patient Accompanied Off Unit with : Responsible adult, Other: STAFF DC Instructions Provided & Signed by Pt : Yes Patient Understands D/C Instructions : Yes Patient Instructions Discharge Signed : Yes Did Pt have Specialty Bed or Wound Vac : No Elysia Cueva RN - 12/07/2022 13:57 EDT * Veronika Prince RN: PERFORM, SIGN, VERIFY Event Display: Case Management Discharge Plan Authored Date: [id number] Patient: ALBERTO LEVI Age: 67 years Sex: Male : 1955 Associated Diagnoses: None Author: Veronika Prince RN Discharge Plan Case Management Discharge Plan : Case Management Discharge Plan Data 12/07/2022 11:46 EDT Discharge Level of Care at Discharge Homehealth/VNA [facility] #1 Physical Therapy, Nursing Home Service Comments #1 The above agency will be providing visiting home services. They should contact you within 24 ??? 48 hours of returning home. If they do not, please contact the company at the above number. * Anay HERRERA, Elysia: PERFORM Event Display: Patient Education/Instruction Authored Date: [id number] Inpatient Adult Discharge Instructions [address] [address] Name: ALBERTO LEVI : 1955 Visit: 11/30/2022 23:50:00 Current Date: 12/07/2022 14:02 Account: [id number] Inpatient Adult Discharge Instructions We would like [...] and their families. Surveys are administered by [employer] ?? If further treatment with your primary care physician or another doctor is recommended, it is important for you to keep the appointment. Call your primary care physician or return to the Emergency Department immediately if your condition worsens, fails to improve, or new symptoms develop. If you need to find a doctor, you can call [facility] [employer] for a referral at [phone] or toll free at [phone] or log in to [email or web address].. ?? You can view and manage your care through the patient portal or by using a health care suzanne of your choosing. [employer] is a website that allows you to securely view your medical information including your hospital discharge summary, office visit summaries, medications and follow-up visits. You can also request appointments, renew medications, and request access to your medical information using a health care suzanne of your choosing, or just ask a question. You can enroll at [email or web address] or register during your next office visit. You have been discharged from [facility], Patient Care Unit: S3. If you have any questions regarding these instructions after you leave, please call us and we will be happy to assist you. [facility] Your Care Team Attending Physician Syl ZARCO, Gavino Josue Consulting Providers Jimenez ZARCO, Janene Discharging Providers Radha ZARCO, Meet Reason for Admission Pt from home w/ SOB - wheezing - 91% RA, given neb, up to 97%. Fell this AM, hit R side - has had hemoptysis starting today. - headstrike, + thinners. Your Diagnosis Hyponatremia Acute hypoxemic respiratory failure Acute systolic heart failure Acute exacerbation of chronic obstructive pulmonary disease (COPD) Epistaxis SIADH (syndrome of inappropriate ADH production) Hyperlipidemia CAD (coronary atherosclerotic disease) Tests Performed Below is a partial list of the tests performed during your hospitalization. You may have had other tests and procedures not included in this list. Please discuss all test results with your provider. 25OH VITAMIN D ALT AST Basic Metabolic Panel CBC CBC w/ Differential COMPREHENSIVE METABOLIC PANL COVID-19 (Novel Coronavirus), Rapid PCR Creatinine Creatinine Urine Electrolytes FERRITIN FOLIC ACID Hold Green Top Tube HOLD LAVENDER TUBE INR IRON & TIBC Osmolality Phosphorus Level PROBNP Procalcitonin Level Sodium Level Triglycerides Troponin T, High Sensitivity TSH UREA NITROGEN, URINE MG/DL Uric Acid URIC ACID, URINE MG/DL Urine Osmolality Urine Sodium Urine Urea Nitrogen?-- Results Pending -- VITAMIN B12 CT Cervical Spine W/O Contrast CT Chest W/O Contrast CT Head/Brain W/O Contrast XR Chest Portable You will be contacted within 72 hours with your results. Primary Care Provider Not on Staff, PCP Advance Directive Health Care Proxy on File Yes - Health Care Proxy Discharge Vitals Temperature: 98.2 DegF Height: 180 cm Pulse Rate: 63 bpm Weight: 86 kg Respiratory Rate: 18 br/min Body Mass Index:??27.5 kg/m2??High Systolic Blood Pressure: 113 mm Hg Body surface area: 2.11 Diastolic Blood Pressure: 67 mm Hg ?? Oxygen Saturation: 98 % ?? Studies Pending All tests and labs ordered during this hospital stay have been completed unless listed below. Please discuss all pending results with your provider listed above in these instructions. ?? Basic Metabolic Panel Hold Lavender Tube (BB) Magnesium Level Urea Nitrogen Urine (Urine Urea Nitrogen) Uric Acid Urine What to do next Instructions From Your Doctor You came to the hospital with low sodium levels, heart failure exacerbation, and COPD exacerbation ?? We treated the heart failure with extra diuretics and COPD exacerbation with steroids among other medication Your low sodium levels are thought to be because of your olanzapine which we stopped while inpatient and we started something else called Seroquel for your mood ?? Going home we recommend the following -We do not want you to use olanzapine anymore -Use Seroquel 150 mg instead which can be increased on an outpatient basis up to 300 mg daily by your PCP -Go back to your regular cardiac medication including Lasix 20 mg daily and Coreg daily in the morning -Please restrict fluids to 1Liter daily for now - We will send you with a script for the visiting nurses to draw blood and recheck your sodium levels. - PCP would follow this blood test. If abnormal, PCP may make adjustments to your fluid restrictionor medication... -To help you quit smoking we will give you Chantix which is a medication that helps people not havecravings it comes in a starter pack and maintenance pack but we wanted to start with a starter packand then go to the maintenance pack. -We will also give you nicotine patches which should change every 24 hours -Please follow-up with your PCP regarding your sodium levels and your heart function We wish you the best of luck Discharge Orders You Need to Schedule the Following Appointments Follow Up with??Your PCP Why: Please follow up with your PCP within 1-2 days Discharge Medications ALBERTO LEVI :1955 Visit Date:11/30/2022 Medications: Please continue your medications until treatment is completed or stopped by your provider. Medications not listed below should be discontinued. Discuss any questions related to medications with your provider. What How Much When Instructions Next Dose New Nicotine (Nicoderm C-Q Clear 7 mg/ 24 hr transdermal film, extended release) 1 patch(es) Topically Daily Duration: 7 Days apply every 24H to any part of the skin. remove old patch before reapplying new one. can rotate site to limit skin irritation ?? [facility] New Quetiapine (QUEtiapine 150 mg oral tablet) 1 tab(s) Oral Daily at Bedtime Pickup at [facility] 3 9pm 12/07 New Varenicline (Chantix Continuing Month 1 mg oral tablet) 1 tab(s) Oral Daily Start this after finishing starter pack ?? Pickup at [facility] 3 see instructions New Varenicline (Chantix Starter Pack 0.5 mg-1 mg oral tablet) 1 tab(s) Oral Twice a day as directed on package labeling ?? Pickup at [facility] 3 see instructions Unchanged Albuterol (Ventolin HFA 108 mcg/ inh inhalation aerosol with adapter) 1 puff(s) Inhalation 4 times a day as needed for for wheezing as needed Unchanged Albuterol/ Ipratropium (albuterol-ipratropium 3 mg-0.5 mg/ 3 ml inhalation solution) 3 Milliliter Inhalation 4 times a day m 12/07 Unchanged apixaban (Eliquis 5 mg oral tablet) TAKE 1 TABLET BY MOUTH 2 TIMES DAILY. ?? 9pm 12/07 Unchanged Aspirin (aspirin 81 mg oral tablet, chewable) 1 tab(s) Oral Daily 12/08 Unchanged Atorvastatin (atorvastatin 40 mg oral tablet) 1 tab(s) Oral Daily 12/08 Unchanged Carvedilol (Coreg 3.125 mg oral tablet) 1 tab(s) Oral Twice a day 12/07 Unchanged Durable Medical Equipment (Walker; Dx Heart failure with reduced ejection fraction I50. 22) See instructions Walker; Dx Heart failure with reduced ejection fraction I50. 22 ?? see instructions Unchanged Furosemide (furosemide 20 mg oral tablet) 1 tab(s) Oral Daily 12/08 Unchanged Multivitamin (Daily Jayson oral tablet) TAKE 1 TABLET BY MOUTH EVERY DAY ?? 12/08 Unchanged Naloxone (naloxone 4 mg/ 0.1 mL nasal spray) 4 Milligram Nares, Both Once XXX Unchanged Pantoprazole (pantoprazole 40 mg oral delayed release tablet) 1 tab(s) Oral Daily 12/08 Unchanged sacubitril-valsartan (Entresto 24 mg-26 mg oral tablet) 1 tab(s) Oral Twice a day 12/07 Unchanged Thiamine (Vitamin B1 100 mg oral tablet) 1 tab(s) Oral Daily Duration: 10 Days 12/08 Unchanged umeclidinium-vilanterol (Anoro Ellipta 62.5 mcg-25 mcg/ inh inhalation powder) INHALE 1 PUFF DAILY ?? 9am 12/08 Pharmacy Information [facility]: [address], [place] [id number] [phone] ?? What How Much When Comments Stop Taking Olanzapine (olanzapine 20 mg oral tablet) 1 tab(s) Oral Daily Stop Taking urea powder (ure-Na 15 g oral powder for reconstitution) 30 gram Oral Daily Test Results Below is a partial list of the most recent Laboratory test results done prior to this discharge. You may have had other tests and procedures not included in this list. Please discuss all test resultswith your provider. Est Creatinine Clearance - 95.04 mL/min (12/07/2022) 25OH VITAMIN D (12/02/2022) ???25 OH-Vitamin D Level - 31.7 ng/mL ALT (12/04/2022) ???ALT (SGPT) - 20 units/L AST (12/04/2022) ???AST (SGOT) - 31 units/L Basic Metabolic Panel (12/07/2022) ???Sodium - 136 mmol/L???Potassium - 3.4 mmol/L???Chloride - 96 mmol/L???Bicarbonate Level - 30 mmol/L???Anion Gap - 10???Glucose Level - 89 mg/dL???BUN - 20 mg/dL???Creatinine-Blood - 0.8 mg/dL???Estimated GFR Creatinine - 97 ML/MIN/1.73 M2???Calcium - 9.0 mg/dL CBC (12/04/2022) ???WBC - 9.5 k/mm3???RBC - 3.35 m/mm3???Hgb - 11.2 Gm/dL???Hct - 32.2 %???MCV - 96.1 femtoliters???MCH - 33.4 pg???MCHC - 34.8 g/dL???Platelet Count - 222 k/mm3???RDW-SD - 44.1 femtoliters???MPV - 9.3 femtoliters???Nucleated RBC (Automated) - 0.0 #/100 WBC'S???Abs. NRBC - 0.0 k/mm3 CBC w/ Differential (12/02/2022) ???WBC - 11.1 k/mm3???RBC - 3.10 m/mm3???Hgb - 10.3 Gm/dL???Hct - 28.5 %???MCV - 91.9 femtoliters???MCH - 33.2 pg???MCHC - 36.1 g/dL???Platelet Count - 171 k/mm3???RDW-SD - 41.7 femtoliters???MPV - 9.1 femtoliters???Nucleated RBC (Automated) - 0.0 #/100 WBC'S???Abs. NRBC - 0.0 k/mm3???Abs. Neut - 9.2 k/mm3???Abs. Lymph - 0.8 k/mm3???Abs. [place] - 1.0 k/mm3???Abs. Eo - 0.0 k/mm3???Abs. Baso - 0.0 k/mm3???Neut % - 82.9 %???Lymph % - 7.1 %???[place] % - 8.7 %???Eos % - 0.1 %???Baso % - 0.1 %???Imm Gran- 1.1 %???Abs. Imm Gran - 0.1 k/mm3 COMPREHENSIVE METABOLIC PANL (12/01/2022) ???Sodium - 126 mmol/L???Potassium - 4.3 mmol/L???Chloride - 90 mmol/L???Bicarbonate Level - 25 mmol/L???Anion Gap - 11???Glucose Level - 190 mg/dL???BUN - 9 mg/dL???Creatinine-Blood - 0.6 mg/dL???Estimated GFR Creatinine - 107 ML/MIN/1.73 M2???Calcium - 9.2 mg/dL???Protein, Total - 6.4 Gm/dL???[place] min - 4.2 Gm/dL???AG Ratio - 1.9???Alkaline Phosphatase - 115 units/L???AST (SGOT) - 19 units/L???ALT (SGPT) - 12 units/L???Bilirubin, Total - 0.9 mg/dL COVID-19 (Novel Coronavirus), Rapid PCR (11/30/2022) ???COVID-19 by RT-PCR - NEGATIVE Creatinine (12/02/2022) ???Creatinine-Blood - 0.7 mg/dL???Estimated GFR Creatinine - 102 ML/MIN/1.73 M2 Creatinine Urine (12/01/2022) ???Creatinine, Urine Random - 78.7 mg/dL Electrolytes (12/02/2022) ???Sodium - 129 mmol/L???Potassium - 4.1 mmol/L???Chloride - 95 mmol/L???Bicarbonate Level - 24 mmol/L???Anion Gap - 10 FERRITIN (12/02/2022) ???Ferritin Level - 422 ng/mL FOLIC ACID (12/02/2022) ???Folic Acid Level - 18.1 ng/mL Hold Green Top Tube (11/30/2022) ???Hold Green Top - SPECIMEN DISCARDED AFTER 1 WEEK HOLD LAVENDER TUBE (12/07/2022) ???Hold Lavender Top - SPECIMEN DISCARDED AFTER 24 HOURS. INR (12/01/2022) ???INR - 1.2???Protime (PT) - 12.5 seconds IRON & TIBC (12/02/2022) ???Iron Level - 74 mcg/dL???Iron Binding Capacity, Unsaturated - 211 mcg/dL???Iron Binding Capacity, Estimated Total - 285 mcg/dL???% Iron Saturation - 26 % Osmolality (12/01/2022) ???Osmolality - 254 mOs/kg Phosphorus Level (12/03/2022) ???Phosphorus - 3.1 mg/dL PROBNP (12/01/2022) ???Nt-Probnp - 4818 pg/mL Procalcitonin Level (12/02/2022) ???Procalcitonin - 0.03 ng/mL Sodium Level (12/04/2022) ???Sodium - 134 mmol/L Triglycerides (12/04/2022) ???Triglycerides - 48 mg/dL Troponin T, High Sensitivity (12/01/2022) ???High Sensitivity Troponin (HSTnT) - 11 ng/L TSH (12/01/2022) ???TSH - 3.46 uIU/mL UREA NITROGEN, URINE MG/DL (12/01/2022) ???Urea Nitrogen, Urine Random - 650.0 mg/dL Uric Acid (12/01/2022) ???Uric Acid - 3.6 mg/dL URIC ACID, URINE MG/DL (12/01/2022) ???Uric Acid, Urine Random - 60.5 mg/dL Urine Osmolality (12/01/2022) ???Osmolality, Urine Random - 440 mOsm/kg Urine Sodium (12/01/2022) ???Sodium, Urine Random - 36 mmol/L VITAMIN B12 (12/02/2022) ???Vitamin B12 Level - 785 pg/mL Allergies (NKA means No Known Allergies) NKA Problems Active Problems??(7) CAD (coronary artery disease)?? COPD with emphysema?? HTN (hypertension)?? Hyperlipidemia?? Mood disorder?? Polysubstance abuse?? Tobacco use?? Education Materials Below is the list of Educational Leaflet Providered with your Discharge Instructions. Valuables and Belongings I fully understand and agree that [facility] accepts no responsibility for all my [...] to send valuables and belongings home. ?? Date for Pt to Sign Valuables/Belongings: 12/01/22 17:59:00 ?? Other Discharge Information ?? Wound Assessment?? Wound Assessment?? Wound Location I: Foot, left ?? Case Management Discharge Plan?? Discharge Plan?? Discharge Agency Information?? Discharge Level of Care at Discharge: Homehealth/VNA Service Categories #1: Physical Therapy, Nursing Home Discharge VNA/Hospice/Home Care: [facility] Service Comments #1: The above agency will be providing visiting home services. They should contactyou within 24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
--- OUTSIDE RECORDS SUMMARY | 2023-02-02 19:38 | XMS_ITS | Continuity of Care Document ---
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, Partial fill upon patient request if [...] 12/01/20 15:01:00 EDT, Route to Pharmacy Electronically, [facility], Partial fill uponpatient request if the [...] opioid drug. Start Date: 07/25/22 Status: Ordered metoprolol 25 mg oral tablet 25 mg, Tablet, By Mouth, Hold for SBP<100 or HR<60, 07/25/22 9:00:00 EDT Start Date: 07/25/22 Stop Date: 07/25/22 Status: Completed naloxone 4 mg/0.1 mL nasal spray = [...] Dry Weight Start Date: 07/09/22 Status: Ordered ure-Na 15 g oral powder [...] emphysema Confirmed Active Tobacco use Confirmed Active Underweight Confirmed Active 1s/p CABG Results Orders for Microbiology Reports Name Date Sputum Culture w/ Gram Smear 07/14/22 Blood Culture 07/13/22 Blood Culture #2 07/13/22 Microbiology Reports TEST:Sputum Culture STATUS:Auth (Verified) BODY SITE: SOURCE:EXPECT COLLECTED DATE/TIME:07/14/22 6:38 AM Sputum Culture SPECIMEN DESCRIPTION : EXPECTORATED SPUTUM SPECIAL REQUESTS : NONE GRAM STAIN : 1+ POLYMORPHONUCLEAR LEUKOCYTES 1+ SQ.EPITHELIAL CELLS 2+ GRAM POSITIVE COCCI 1+ GRAM POSITIVE RODS CULTURE : 2+ NORMAL RAMAN REPORT STATUS : FINAL 07/16/2022 TEST:Blood Culture STATUS:Auth (Verified) BODY SITE: SOURCE:Blood COLLECTED DATE/TIME:07/13/22 9:00 PM Blood Culture SPECIMEN DESCRIPTION : BLOOD NOT GIVEN SPECIAL REQUESTS : NONE CULTURE : NO GROWTH 5 DAYS. REPORT STATUS : FINAL 07/18/2022 TEST:Blood Culture, Second Order STATUS:Auth (Verified) BODY SITE: SOURCE:Blood COLLECTED DATE/TIME:07/13/22 8:59 PM Blood Culture, Second Order SPECIMEN DESCRIPTION : BLOOD NOT GIVEN SPECIAL REQUESTS : NONE CULTURE : NO GROWTH 5 DAYS. REPORT STATUS : FINAL 07/18/2022 Radiology Reports * Exam Date Time Procedure Performing Provider Status 07/13/22 9:16 PM Chest Portable Barrera Terry; Auth (Ve rified) Notes: (Chest Portable) Reason For Exam: Fever RESULT: Chest Portable Chest Portable Hx of Present Illness: Fever and lethargy. Rule out pneumonia. COMPARISON: 06/23/2022 FINDINGS: Quite rotated to the right. LINES AND TUBES: None. LUNGS AND PLEURA: Focal consolidation right lower lobe. Otherwise clear lungs. No edema of the left lung. Probable small right pleural effusion. No pneumothorax. HEART, MEDIASTINUM AND ADELE: Unchanged without convincing abnormality accounting for rightward rotation. BONES AND SOFT TISSUES: No acute abnormality. IMPRESSION: Right lower lobe pneumonia. WSN: [id number] Ordering Physician: Judd Patel Dictated By: Gavino Servin MD Dictated Date/Time: 07/13/22 9:23 pm Reviewed By: Gavino Servin MD Signed By: Gavino Servin MD Signed Date/Time: 07/13/22 9:23 pm Transcribed By: GRANT Transcribed Date/Time: 07/13/22 9:22 pm Vital Signs Most recent to oldest [Reference Range]: 1 2 3 Height 180 cm (07/25/22 1:08 PM) 180 cm (07/24/22 8:04 PM) 180 cm (07/23/22 8:02 AM) Weight 76.3 kg (07/25/22 6:15 AM) 79.3 kg (07/24/22 7:20 AM) 81.9 kg (07/22/22 11:08 AM) Oxygen Saturation [94-100 %] 100 % (07/25/22 1:08 PM) 99 % (07/24/22 8:04 PM) 99 % (07/24/22 7:00 AM) Pulse Rate [55-90 bpm] 71 bpm (07/25/22 1:08 PM) 65 bpm (07/25/22 9:50 AM) 73 bpm (07/24/22 8:04 PM) Body Mass Index [18.5-24.99 kg/m2] 16.11 kg/m2 *L* (07/13/22 11:55 PM) Blood Pressure [90-138/55-84 mm Hg] 96/61mm Hg (07/25/22 1:08 PM) 116/63mm Hg (07/25/22 9:50 AM) 107/63mm Hg (07/24/22 8:04 PM) Respiratory Rate [16-30 br/min] 18 br/min (07/25/22 1:08 PM) 18 br/min (07/24/22 8:04 PM) 18 br/min (07/24/22 7:00 AM) Temperature [96.8-100.4 DegF] 97.4 DegF (07/25/22 1:08 PM) 97.9 DegF (07/24/22 8:04 PM) 97.4 DegF (07/24/22 7:00 AM) Liters per Minute 2 L/min (07/22/22 7:00 PM) 2 L/min (07/22/22 8:52 AM) Mode of Delivery (Oxygen) Room air (07/25/22 1:08 PM) Room air (07/24/22 8:04 PM) Room air (07/24/22 7:00 AM) Blood pressure sites Arm, right (07/25/22 1:08 PM) Arm, right (07/24/22 8:04 PM) Arm, right (07/24/22 7:00 AM) Temperature Route Oral (07/25/22 1:08 PM) Oral (07/24/22 8:04 PM) Oral (07/24/22 7:00 AM) Dry Weight 82 kg (07/13/22 8:31 PM) Weight Obtained Via Bed scale (07/24/22 7:20 AM) Bed scale (07/21/22 6:13 AM) Bed scale (07/19/22 11:09 AM) Social History Social History Type Response Smoking Status 10 or more cigarette s (1/2 pack or more)/day in last 30 days entered on: 11/28/20 Sex Admission evaluation note * Jennifer ZARCO, [facility] MODIFY, MODIFY, MODIFY, PERFORM, MODIFY Event Display: Admission Note Authored Date: Patient: ??MIKHAIL LAGUNAS ? Age:??66 Years?Sex:??Male?:??1955?? Chief Complaint/Reason for Consultation Hypotension History of Present Illness 66-year-old gentleman with past medical history significant for CAD s/p CABG (2006),??paroxysmal Af/flutter on apixaban, ischemic cardiomyopathy (EF 30 to 35%), COPD, chronic hyponatremia and schizophrenia/mood disorder with alcohol/polysubstance use disorder, recent ICU admission for acute hypoxic respiratory failure and unresponsiveness requiring intubation 06/20/2022 presenting to the ED with??generalized weakness and fatigue. ??He reports that he has been feeling quite crappy over the past few days and denies any chest pain, dizziness, palpitations??but did have an episode of shortness of breath and cough without sputum??this morning after smoking 6 cigarettes. ??No fever, chills or night sweats. ??Denies nausea or vomiting, diarrhea and endorses good p.o. intake for the past few days.??He lives with his niece Camelia who reports that he has been pretty weak since post discharge but??has had no shortness of breath, cough or fever. ??He was seen by the VNA??sometime prior to dinner t onight??and was??hemodynamically stable and temperature??was normal??when the niece asked. ??1 hourlater, she noticed that he was??very weak and lethargic and unable to get out of bed??and called EMS.? In the ED, patient was noted to be hypotensive to 80s over 60s, febrile to 104.7 and tachycardic to90s with no new oxygen requirement. Lab work-up notable for no leukocytosis, macrocytic anemia withhemoglobin of 12.4/36 (baseline appears to be 11.8-12.7). ??Basic metabolic panel notable for hyponatremia of 130 (baseline 128-130), BUN/creatinine of 12/0.8. LFTs elevated with AST/ALT of 59/84 and ??total bilirubin of 1.3. proBNP mildly elevated to 1177 and trop 15. He tested positive for COVID on 07/10. ??UA with no pyuria. He received 1 dose of vancomycin and Zosyn and 2 L of IV fluid and wasstarted on Levophed given persistent hypotension in the ED. Review of Systems Constitutional:??No weight loss, fever, chills, +??weakness??and fatigue. Eyes:??No visual loss, blurred vision, double vision ENT:??No runny nose or sore throat. Cardiovascular:??No chest pain, chest pressure or chest discomfort. No palpitations or pedal edema. Gastrointestinal:??No nausea, vomiting or diarrhea. No abdominal pain or blood in stool. Genitourinary:??No burning micturition. No urinary frequency or incontinence. Neurologic:??No headache, dizziness, syncope, unilateral weakness,?? Musculoskeletal:??No muscle pain, back pain, joint pain or stiffness. Hematologic/Lymphatics:??No bleeding or bruising. No painful lymph nodes. Skin:??No rash or itching. Endocrine:??No reports of sweating. Psychiatric:??No depression or anxiety. Objective Vital Signs?? Temperature:??104.7 DegF??High (07/13/22 20:31:00) Temperature Route: Rectal (07/13/22 20:31:00) Pulse Rate: 69 bpm (07/13/22 22:48:00) Respiratory Rate: 21 br/min (07/13/22 22:48:00) Systolic Blood Pressure:??74 mm Hg??Low (07/13/22 22:48:00) Diastolic Blood Pressure:??50 mm Hg??Low (07/13/22 22:48:00) Blood pressure sites: Arm, left (07/13/22 20:31:00) Mean Arterial Pressure: 100 mm Hg (07/13/22 20:31:00) Pulse Pressure: 26 mm Hg (07/13/22 21:38:00) Oxygen Saturation: 96 % (07/13/22 22:48:00) Mode of Delivery (Oxygen): Room air (07/13/22 22:48:00) Early Warning Score: 6 (07/13/22 22:49:13) ? Physical Exam Constitutional: Alert, in no respiratory??distress. Mental Status: Oriented to person, place and time. Head: Normocephalic. Eyes: Pupils are equal, round and reactive to light. Ear, Nose and Throat: Oropharynx clear, mucous membranes moist. Neck: Supple, Full range of motion. Respiratory: Clear to auscultation. decreased in lower lung field Cardiovascular: S1 S2 regular. No murmurs, rubs or gallops. Gastrointestinal: Abdomen soft, non-tender, non-distended. Normal bowel sounds. [place] negative Neurologic: . Moves all extremities spontaneously. Skin: No rashes or lesions. No petechiae or purpura.?? Musculoskeletal: No gross deformities. Normal range of motion. Psychiatric: Normal mood and affect Assessment/Plan 66-year-old gentleman with past medical history significant for CAD s/p CABG (2006),??paroxysmal Af/flutter on apixaban, ischemic cardiomyopathy (EF 30 to 35%), COPD, chronic hyponatremia and schizophrenia/mood disorder with alcohol/polysubstance use disorder, recent ICU admission for acute hypoxic respiratory failure and unresponsiveness requiring intubation 06/20/2022 presenting to the ED with??lethargy??found to be persistently hypotensive??requiring vasopressor support??in the ED likely secondary to hypovolemic??and??septic shock (from underlying??pneumonia). ?? Neurology Schizophrenia/mood disorder Polysubstance use disorder (alcohol/cocaine/opiates) ?? No focal abnormalities and AAOx3??and following commands ?? Plan: -Continue home olanzapine??20 mg daily -Continue home thiamine ?? Cardiovascular Shock- likely??hypovolemic/sepsis CAD s/p CABG 2006 Ischemic cardiomyopathy with??EF 30%?? AF/flutter [id number] ?? etiology??likely hypovolemic (has??multiple antihypertensives that he took earlier this morning)??and sepsis given febrile (with no leukocytosis but has developing consolidation in right lower lobe) Echo with an EF of 30% (last study 06/16 With severely reduced LV systolic function and global hypokinesis) Status post 3 L IV fluids in ED ?? Plan: -Levophed to be titrated to MAP goal of??60 -Give additional 1 L fluid bolus -Continue apixaban 5 mg twice daily -Continue aspirin and atorvastatin 40 mg daily -Holding carvedilol 3.125 twice a day, furosemide 20 mg twice a day, Entresto and spironolactone 25mg daily -Strict I's and O's, rn cardiac cath ?? Pulmonology/ID COVID infection Concern for underlying pneumonia COPD emphysema phenotype Tobacco use disorder ?? No new oxygen requirements??movements likely mild COVID infection (tested +07/10 after in hospital??exposure)??and received 2 doses of COVID-vaccine Chest x-ray with possible right-sided consolidation (new compared to recent CT from??06/16), costophrenic blunting??of right concerning for mild pleural effusion ?? Plan: -Start on vancomycin and cefepime(broader coverage given recent hospitalization and intubation);??azithromycin for Legionella coverage -Continue isolation precautions??for 10 days (till 07/20) -Does not meet criteria for??Decadron, hold off on remdesivir given??worsening LFTs and day 5 of infection -Follow-up blood cultures, obtain sputum cultures and add on??procalcitonin -MRSA swab and urine legionella ? GI Elevated LFTs ?? Likely secondary to??ischemic hepatopathy from hypotension, no evidence of??acute cholecystitis ?? Plan: -Trend LFTs -Consider right upper quadrant ultrasound??if worsening ? Renal Chronic hyponatremia? Sodium at baseline patient hypovolemic on exam HX??of??chronic hyponatremia from??beer [place]??dating back??3 to 4 years??and has been hospitalized??for??worsening hyponatremia??multiple times in the past. ?? Plan: -Daily BUN and electrolytes -Monitor urine output ?? Endocrine No acute issues ?? Plan: -POC every 6 hours??till able to tolerate p.o. ?? Quality measures Code: Full VTE prophylaxis: Apixaban Diet: NPO till levophed requirement improves ?? Patient seen and discussed with Dr.Kindle Cheikh Rodriguez MD Internal Medicine PGY3 Pager [phone] ? Histories Allergies Allergies ?(Active and Proposed Allergies Only) NKA? (Severity: Unknown severity, Onset: Unknown) ? Past Medical History/Problem List Active Problems??(7) CAD (coronary artery disease) COPD with emphysema HTN (hypertension) Hyperlipidemia Mood disorder Polysubstance abuse Tobacco use ? Past Surgical History S/P CABG (evidenced by sternal incision and sternotomy clips on chest Xray) ?? Social History Alcohol Details:??Use: Former daily drinker, has been sober >1 month Substance Abuse Details:??Use:Former. ??Type: Cocaine, Heroin. Tobacco Details:??Use: 10 or more cigarettes (1/2 pack or more)/day in last 30 days. ? Family History heart disease, Marfan syndrome ?? Medications Home Medications Albuterol (Ventolin HFA [...] 1 PUFF DAILY ? Inpatient Medications Medications (2) Active SCHEDULED: (0) CONTINUOUS: (2) Lactated Ringers (1000 mL) Cont IV 1,000 mL (Bolus LR 1,000 mL) ??1,000 mL, IV Infusion NORepinephrine 4mg / 250mL NaCL 4 mg (Levophed 4 mg / NaCL 0.9% 250 mL 4 mg) ??4 mg 250 mL, IV Infusion PRN: (0) ? Results Recent Labs BLOOD COUNT & DIFF WBC 9.1 k/mm3 ()?? 07/13/2022 20:59 RBC 3.69 m/mm3 (Low)?? 07/13/2022 20:59 Hgb 12.4 Gm/dL (Low)?? 07/13/2022 20:59 Hct 36.0 % (Low)?? 07/13/2022 20:59 MCV 97.6 femtoliters (High)?? 07/13/2022 20:59 MCH 33.6 pg ()?? 07/13/2022 20:59 MCHC 34.4 g/dL ()?? 07/13/2022 20:59 Platelet Count 210 k/mm3 ()?? 07/13/2022 20:59 RDW-SD 50.5 femtoliters (High)?? 07/13/2022 20:59 MPV 9.4 femtoliters ()?? 07/13/2022 20:59 Nucleated RBC (Automated) 0.0 #/100 WBC'S ()?? 07/13/2022 20:59 Abs. NRBC 0.0 k/mm3 ()?? 07/13/2022 20:59 Abs. Neut 7.4 k/mm3 (High)?? 07/13/2022 20:59 Abs. Lymph 0.6 k/mm3 (Low)?? 07/13/2022 20:59 Abs. Addison 1.1 k/mm3 ()?? 07/13/2022 20:59 Abs. Eo 0.0 k/mm3 ()?? 07/13/2022 20:59 Abs. Baso 0.0 k/mm3 ()?? 07/13/2022 20:59 Neut % 81.2 % (High)?? 07/13/2022 20:59 Lymph % 6.1 % (Low)?? 07/13/2022 20:59 Addison % 11.7 % (High)?? 07/13/2022 20:59 Eos % 0.3 % ()?? 07/13/2022 20:59 Baso % 0.3 % ()?? 07/13/2022 20:59 Imm Gran 0.4 % ()?? 07/13/2022 20:59 Abs. Imm Gran 0.0 k/mm3 ()?? 07/13/2022 20:59 ?? CARDIAC Nt-Probnp 1177 pg/mL (High)?? 07/13/2022 20:59 High Sensitivity Troponin (HSTnT) 15 ng/L ()?? 07/13/2022 20:59 ?? CHEM GENERAL Sodium 130 mmol/L (Low)?? 07/13/2022 20:59 Potassium 4.4 mmol/L ()?? 07/13/2022 20:59 Chloride 91 mmol/L (Low)?? 07/13/2022 20:59 Bicarbonate Level 28 mmol/L ()?? 07/13/2022 20:59 Anion Gap 11 ()?? 07/13/2022 20:59 Glucose Level 93 mg/dL ()?? 07/13/2022 20:59 BUN 12 mg/dL ()?? 07/13/2022 20:59 Creatinine-Blood 0.8 mg/dL ()?? 07/13/2022 20:59 Estimated GFR Creatinine 98 ML/MIN/1.73 M2 ()?? 07/13/2022 20:59 Calcium 9.2 mg/dL ()?? 07/13/2022 20:59 Magnesium 1.8 mg/dL ()?? 07/13/2022 20:59 Protein, Total 7.4 Gm/dL ()?? 07/13/2022 20:59 Albumin 4.0 Gm/dL ()?? 07/13/2022 20:59 AG Ratio 1.2 ()?? 07/13/2022 20:59 Alkaline Phosphatase 272 units/L (High)?? 07/13/2022 20:59 AST (SGOT) 59 units/L (High)?? 07/13/2022 20:59 ALT (SGPT) 84 units/L (High)?? 07/13/2022 20:59 Bilirubin, Total 1.3 mg/dL (High)?? 07/13/2022 20:59 Lactate 1.0 mmol/L ()?? 07/13/2022 20:59 ?? ENDOCRINE/TUMOR MARKER TSH 3.08 uIU/mL ()?? 07/13/2022 20:59 ?? HEME OTHER Hold Blue Top SPECIMEN DISCARDED AFTER 4 HOURS. ()?? 07/13/2022 20:59 ?? TOXICOLOGY/TDM Ethanol, Serum or Plasma NONE DETECTED mg/dL ()?? 07/13/2022 20:59 ?? UA/URINALYSIS Appear/Color, Urine YELLOW ()?? 07/13/2022 21:05 Specific [place], Urine 1.014 ()?? 07/13/2022 21:05 pH, Urine 6.5 ()?? 07/13/2022 21:05 Albumin, Urine TRACE (Abnormal)?? 07/13/2022 21:05 Glucose, Urine NEGATIVE ()?? 07/13/2022 21:05 Ketones, Urine NEGATIVE ()?? 07/13/2022 21:05 Bilirubin, Urine NEGATIVE ()?? 07/13/2022 21:05 Hemoglobin, Urine NEGATIVE ()?? 07/13/2022 21:05 Nitrite, Urine NEGATIVE ()?? 07/13/2022 21:05 Leukocyte, Urine NEGATIVE ()?? 07/13/2022 21:05 Urobilinogen 2 mg/dL (Abnormal)?? 07/13/2022 21:05 WBC's, Urine 1 /HPF ()?? 07/13/2022 21:05 RBC's, Urine <1 /HPF ()?? 07/13/2022 21:05 Mucus SLIGHT /LPF ()?? 07/13/2022 21:05 Hold Urine Culture Testing available 48 hours from time of collection. ()?? 07/13/2022 21:05 ? * Gregory River MD: PERFORM Event Display: Admission Note Authored Date: [id number] MICU Attending Attestation ?? Date of Service: 07/13/2022 ?? I have seen and evaluated??MIKHAIL LAGUNAS. I have personally reviewed the HPI, PMFSH, and ROS. I have personally reviewed the lab, radiography, and study results from this admission. I have discussed the case with ??Jennifer and agree with the findings, assessment, and plan as documented below with the following highlights, clarifications, and addenda. ?? Assessment: # Septic Shock: Differential diagnosis includes HCAP, COVID-19, septicemia, and less likely hepatobiliary disease. Improving with fluid resuscitation. # Hypovolemic Shock: Likely contributing to hypotension with septic shock in the setting of outpatient??diuretic??and anti-hypertensive medications. # COVID-19 Pneumonia: Mild severity given lack of hypoxemia, diagnosed 07/10/2022, Remdesivir may becontraindicated due to elevated LFTs. # Chronic Systolic Heart Failure / Ischemic Cardiomyopathy: Hypovolemic on examination. # Atrial Flutter: Rate controlled and on anticoagulation. # Chronic Hyponatremia: Stable ?? Plan: - LR bolus 1L aliquots and monitor BP response - Titrate Norepinephrine to maintain MAP 65-75 - Empirical Vancomycin and Cefepime pending cultures & procalcitonin - Check procalcitonin, if low consider early antibacterial discontinuation - Check sputum culture if able to be produced, follow up blood cultures - Consider Dexamethasone if develops hypoxemia (SpO2 < 94%) - Consider Remdesivir if LFTs normalize after resuscitation Remainder as below ?? MIKHAIL LAGUNAS??is critically ill due to the problems and diagnoses listed above, with a high probability of life-threatening deterioration or . I personally spent??40 minutes of non-overlapping critical care time evaluating and managing the patient, excluding time spent teaching??or performingseparately billable procedures. ?? Gregory River MD Pulmonary Family Law Attorney [facility] Pager [phone] EKG study * Event Display: ECG 12-Lead Authored Date: [id number] Please click on pdf link to open report * Event Display: ECG 12-Lead Authored Date: [id number] Ventricular Rate: 48 BPM Atrial Rate: 267 BPM QRS Duration: 122 ms Q-T Interval: 470 ms QTC Calculation(Bazett): 419 ms R Joppa: 65 degrees T Joppa: 67 degrees Atrial flutter with variable A-V block with premature ventricular or aberrantly conducted complexes Non-specific intra-ventricular conduction delay Abnormal ECG When compared with ECG of 14-JUL-2022 01:37, No significant change Confirmed by NENA SELBY MD ([id number]) on 07/14/2022 10:00:23 AM [place]: NENA SELBY MD * Event Display: ECG 12-Lead Authored Date: [id number] Please click on pdf link to open report * Event Display: ECG 12-Lead Authored Date: [id number] Ventricular Rate: 64 BPM Atrial Rate: 267 BPM QRS Duration: 120 ms Q-T Interval: 446 ms QTC Calculation(Bazett): 460 ms P Joppa: 79 degrees R Joppa: 68 degrees T Joppa: 72 degrees Atrial flutter with variable A-V block with premature ventricular or aberrantly conducted complexes Non-specific intra-ventricular conduction delay Abnormal ECG When compared with ECG of 13-JUL-2022 20:58, Premature ventricular complexes are now Present Confirmed by HUNTER REESE ([id number]) on 07/14/2022 9:59:03 AM [place]: HUNTER REESE * Event Display: ECG 12-Lead Authored Date: [id number] Please click on pdf link to open report * Event Display: ECG 12-Lead Authored Date: [id number] Ventricular Rate: 93 BPM Atrial Rate: 93 BPM P-R Interval: 188 ms QRS Duration: 112 ms Q-T Interval: 374 ms QTC Calculation(Bazett): 465 ms P Joppa: 83 degrees R Joppa: 64 degrees T Joppa: 83 degrees Atrial flutter with 3:1 A-V conduction Abnormal ECG When compared with ECG of 21-JUN-2022 05:46, Vent. rate has increased BY 45 BPM Nonspecific T wave abnormality now evident in Lateral leads Confirmed by HUNTER REESE ([id number]) on 07/14/2022 9:50:37 AM [place]: HUNTER REESE Note * Mariella Mcnair RN: PERFORM Event Display: Discharge/Transfer Note Hospital Authored Date: Nursing Discharge Note Entered On: 07/25/2022 16:45 EDT Performed On: 07/25/2022 16:00 EDT by Mariella Mcnair RN Nursing Discharge Note 2 Discharge Time : 07/25/2022 16:00 EDT Discharge Level of Care at Discharge : Homehealth/VNA Discharge VNA/Hospice/Home Care(v001) : [facility] Discharge [facility](v001) : [facility] Patient Left Unit Via : Wheelchair Patient Accompanied Off Unit with : Responsible adult DC Instructions Provided & Signed by Pt : No Patient Understands D/C Instructions : Yes Verbalized Understanding of D/C Plan By : Family, Patient Patient Instructions Discharge Signed : Yes Discharge Comments : patient unable to sign D/C papers due to legally blind, niece aware of plan and medications whom he lives with Did Pt have Specialty Bed or Wound Vac : No Mariella Mcnair RN - 07/25/2022 16:42 EDT * Richard ZARCO, Inocente Salinas: MODIFY, MODIFY, PERFORM Event Display: Discharge/Transfer Note Hospital Authored Date: Patient: ??MIKHAIL LAGUNAS ? Age:??66 Years?Sex:??Male?:??1955?? Patient Information Discharge Location: A Primary Care Physician: Not on Staff, PCP Admit Date/Time: 07/13/22 23:25 Discharge Disposition Discharge Disposition: Home with Home Health Discharge Diagnosis ?? Primary Diagnosis: Septic shock secondary to healthcare-associated pneumonia ?? Secondary Diagnosis Covid-19 infection Hypotension Acute on chronic euvolemic hyponatremia Elevated LFTs Atrial fibrillation on apixaban Ischemic cardiomyopathy w/ reduced EF CAD Hypoglycemia _ Discharge Medications Albuterol (Ventolin HFA 108 [...] powder for reconstitution)?30?gram?By Mouth?Daily ? Medications Started Urea 30 g per day Medications Discontinued Aldactone Doses Changed Furosemide dose reduced from 20 mg bid to 20 mg daily PCP Follow-Up/Heads-Up ?? Repeat CT chest in a few weeks as outpatient for area of consolidation/mass-like on prev CTA last admission Repeat bmp and lfts in 1 week for hyponatremia and elevated LFTs f/u and reinitiate Aldactone as bp allows. ?? Hospital Course 66-year-old male past medical history significant for CAD status post CABG 2006, paroxysmal A-fib/flutter on apixaban, ischemic cardiomyopathy EF 30 to 35%, COPD, chronic hyponatremia, schizophrenia/mood disorder with alcohol/polysubstance use disorder and recent ICU admission for acute hypoxic respiratory failure requiring intubation and May 2022 who initially presented to ED with generalized weakness and fatigue. Diagnosed with septic shock secondary to pneumonia and COVID-19 infection requiring ICU admission for initial management. Course complicated by acute on chronic hyponatremia, e levated LFTs. After he completed his isolation. He required a few days of inpatient rehab to increase his strength/stamina prior to being discharged home with services. ?? COVID infection (resolved) Pneumonia (resolved) COPD emphysema phenotype Septic/hypovolemic shock Tobacco use disorder Weakness No new oxygen requirements movements likely mild COVID infection (tested +07/10 after in hospital exposure) and received 2 doses of COVID-vaccine Covid (07/10), no oxygen requirement during course Chest x-ray with possible right-sided consolidation (new compared to recent CT from 06/16), costophrenic blunting of right concerning for mild pleural effusion Initially treated w/ vanc and cefepime (MRSA??positive) but then??descalated to ceftriaxone w/ negative sputum.? Recommendations: -Home PT -Cont. home nebs/inhalers. ?? Acute on Chronic Hypoosmolar euvolemic hyponatremia Unspecified Right lung density Na around patients baseline, chronic hyponatremia w/??b/g??beer drinkers potomania Acute exacerbation in hospital, resolved.??Finished salt tabs. Remains euvolemic on exam ?? Recommendations: -Repeat bmp w/ PCP in 1 week to ensure Na stable/improved. -urea 30 mg daily -Repeat CT chest in a few weeks as outpatient for area of consolidation/mass- like on prev CTA last admission ? Hypotension?? CAD s/p CABG 2007 Chronic HFrEF (EF 30-35%) AF/Flutter on Apixaban?? Ischemic cardiomyopathy with EF 30% Soft bps, holding home entresto, aldactone, carvedilol (switched to metoprolol) ?? Recommendations -Continue aspirin and atorvastatin 40 mg daily -Continue??home carvediolol and entresto -home lasix dose decreased to 20 mg daily -holding aldactone on??discharge as soft bps, reinitiate as outpatient if??bp allows ?? Stable/Resolved: ? Hypoglycemia unclear cause, the patient is not on insulin hypotension resolved cortisol level wnl on 07/16 ?? Elevated LFTs Mild??elevation in LFTs from baseline, stable PCP repeat as outpatient ?? Schizophrenia/mood disorder Polysubstance use disorder (alcohol/cocaine/opiates) No focal abnormalities and AAOx3 and following commands.?? No signs of alcohol withdrawal at present Continue home olanzapine 20 mg daily Continue home thiamine ? Objective Assessment and Plan Discharge Planning:? Vital Signs?? Temperature: 97.9 DegF (07/24/22 20:04:00) Temperature Route: Oral (07/24/22 20:04:00) Pulse Rate: 73 bpm (07/24/22 20:04:00) Respiratory Rate: 18 br/min (07/24/22 20:04:00) Systolic Blood Pressure: 107 mm Hg (07/24/22 20:04:00) Diastolic Blood Pressure: 63 mm Hg (07/24/22 20:04:00) Blood pressure sites: Arm, right (07/24/22 20:04:00) Mean Arterial Pressure: 78 mm Hg (07/24/22 20:04:00) Pulse Pressure: 44 mm Hg (07/24/22 20:04:00) Oxygen Saturation: 99 % (07/24/22 20:04:00) Mode of Delivery (Oxygen): Room air (07/24/22 20:04:00) Early Warning Score: 3 (07/24/22 20:18:40) ? . Physical Exam ? General Appearance: The patient is stable Cardiovascular: RRR S1 and S2 heard with no M/R/G. No JVD. Respiratory:?Global reduced air entry without added sounds, equal. GI: Soft. Nontender and nondistended. Normal bowel sounds present throughout abdomen.?? MS: ??No edema or erythema in the lower extremities. No wounds seen on the feet. Peripheral sensation intact.?? Neuro: ??No slurred speech. ??Patient seen moving their upper and lower extremities independently. Psych: Alert and oriented x3. Appropriate and pleasant. ? Consultants Bahman Avilez MD? RTANE ?? Pending Results Add On Lab Order ordered on 07/13/2022 Add On Lab Order ordered on 07/14/2022 Add On Lab Order ordered on 07/16/2022 Add On Lab Order ordered on 07/16/2022 Add On Lab Order ordered on 07/18/2022 COVID-19 (2019 Novel Coronavirus) PCR ordered on 07/14/2022 COVID-19 (2019 Novel Coronavirus) PCR ordered on 07/18/2022 COVID-19 (2019 Novel Coronavirus) PCR ordered on 07/21/2022 Patient Education Titles Discharge Instructions for Hyponatremia?? Follow-Up Appointments Added Follow Up ?Time Frame ?Comments Janene Akers NP?1 to 2 weeks Patient Instructions You presented to the hospital in shock from a pneumonia, and were also found to have an infection from COVID. ?? Instructions: -Please followup with your PCP in 1 week to review medications and repeat your blood work. -We have reduced your furosemide tablet from twice a day to daily -We have stopped your spironolactone, please followup with your pcp with regards to restarting it -If you are finding urea from the pharmacy for your hyponatremia to be to expensive, many patients fine Ureaide on Amazon to be a much more affordable alternative. Alternatively, you can discuss initiating salt tablets with your PCP. Home Health Face to Face *Denotes mandatory yuen ?? *I certify that this patient is under my care and that I or an allowed non- physician working with me had a face to face encounter with the patient on this date:??07/25/2022 09:07 ?? *The encounter with the patient was in whole, or in part, for the following medical condition, which is the primary diagnosis(es) for home health care:? Septic shock COPD Heart failure ? *Select the indications for the discipline/s that are being arranged for this patient. Nursing (select all that apply): [_] None [x_] Medication management (reconciliation, teaching)?? [x_] Chronic disease management?? [_] Wound care and [...] apply): [_] None [x_] Functional mobility training [_x] Home exercise program to strengthen [_] Increase ROM?? [x_] Falls prevention training [_] Home maintenance program [...] Inability to ambulate without assistance [_] Pain [x_] Decreased strength and endurance [x_] Unsteady gait [_] Severe SOB and fatigue [_] Impaired transfers [_] Inability to negotiate stairs [x_] Limited weight bearing [_] Mental status change? *Physician Signature: _Inocente Ramos MD ?? *By signing this, I certify that I have personally evaluated the patient and agree with the findings and recommendations as documented above. ? Results Discharge Labs BACTERIOLOGY MRSA PCR Result Positive, MRSA target DNA detected. ()?? 07/14/2022 01:00 S Aureus ??PCR Result Positive, SA target DNA detected. ()?? 07/14/2022 01:00 ?? BLOOD COUNT & DIFF WBC 8.7 k/mm3 ()?? 07/21/2022 00:44 RBC 2.95 m/mm3 (Low)?? 07/21/2022 00:44 Hgb 10.1 Gm/dL (Low)?? 07/21/2022 00:44 Hct 28.8 % (Low)?? 07/21/2022 00:44 MCV 97.6 femtoliters (High)?? 07/21/2022 00:44 MCH 34.2 pg (High)?? 07/21/2022 00:44 MCHC 35.1 g/dL ()?? 07/21/2022 00:44 Platelet Count 224 k/mm3 ()?? 07/21/2022 00:44 RDW-SD 48.2 femtoliters (High)?? 07/21/2022 00:44 MPV 8.9 femtoliters (Low)?? 07/21/2022 00:44 Nucleated RBC (Automated) 0.0 #/100 WBC'S ()?? 07/21/2022 00:44 Abs. NRBC 0.0 k/mm3 ()?? 07/21/2022 00:44 Abs. Neut 10.7 k/mm3 (High)?? 07/16/2022 03:02 Abs. Lymph 1.2 k/mm3 ()?? 07/16/2022 03:02 Abs. Addison 1.0 k/mm3 ()?? 07/16/2022 03:02 Abs. Eo 0.1 k/mm3 ()?? 07/16/2022 03:02 Abs. Baso 0.0 k/mm3 ()?? 07/16/2022 03:02 Neut % 81.2 % (High)?? 07/16/2022 03:02 Lymph % 9.3 % (Low)?? 07/16/2022 03:02 Addison % 7.3 % ()?? 07/16/2022 03:02 Eos % 0.5 % ()?? 07/16/2022 03:02 Baso % 0.3 % ()?? 07/16/2022 03:02 Imm Gran 1.4 % ()?? 07/16/2022 03:02 Abs. Imm Gran 0.2 k/mm3 ()?? 07/16/2022 03:02 ?? BLOOD GAS Specimen Type - Blood Gas VENOUS ()?? 07/14/2022 05:00 pH, Venous 7.41 ()?? 07/14/2022 05:00 pCO2, Venous 41 mm Hg ()?? 07/14/2022 05:00 pO2, Venous 28 mm Hg (Low)?? 07/14/2022 05:00 Bicarbonate, Estimated(Venous) 26 mmol/L ()?? 07/14/2022 05:00 ? CARDIAC Nt-Probnp 1177 pg/mL (High)?? 07/13/2022 20:59 High Sensitivity Troponin (HSTnT) 14 ng/L ()?? 07/13/2022 23:00 ?? CHEM GENERAL Sodium 132 mmol/L (Low)?? 07/23/2022 00:59 Potassium 4.4 mmol/L ()?? 07/23/2022 00:59 Chloride 99 mmol/L ()?? 07/23/2022 00:59 Bicarbonate Level 26 mmol/L ()?? 07/23/2022 00:59 Anion Gap 7 ()?? 07/23/2022 00:59 Glucose Level 100 mg/dL (High)?? 07/21/2022 00:44 Glucose, POC 95 mg/dL ()?? 07/21/2022 08:37 BUN 43 mg/dL (High)?? 07/21/2022 00:44 Creatinine-Blood 0.6 mg/dL (Low)?? 07/21/2022 00:44 Estimated GFR Creatinine 104 ML/MIN/1.73 M2 ()?? 07/21/2022 00:44 Osmolality 262 mOs/kg (Low)?? 07/16/2022 13:47 Calcium 9.0 mg/dL ()?? 07/21/2022 00:44 Calcium, Ionized pH Corrected 1.19 mmol/L ()?? 07/15/2022 04:04 Phosphorus 2.9 mg/dL ()?? 07/15/2022 04:04 Magnesium 1.8 mg/dL ()?? 07/16/2022 02:41 Protein, Total 6.8 Gm/dL ()?? 07/21/2022 00:44 Albumin 3.1 Gm/dL (Low)?? 07/21/2022 00:44 AG Ratio 0.8 ()?? 07/21/2022 00:44 Alkaline Phosphatase 280 units/L (High)?? 07/21/2022 00:44 AST (SGOT) 28 units/L ()?? 07/21/2022 00:44 ALT (SGPT) 54 units/L (High)?? 07/21/2022 00:44 Bilirubin, Total 0.7 mg/dL ()?? 07/21/2022 00:44 Bilirubin, Direct 0.4 mg/dL (High)?? 07/18/2022 09:36 Bilirubin, Indirect 0.4 mg/dL ()?? 07/18/2022 09:36 Lactate 1.4 mmol/L ()?? 07/13/2022 23:00 Uric Acid 2.1 mg/dL (Low)?? 07/16/2022 13:47 ?? COAG INR 1.3 (High)?? 07/14/2022 02:46 Protime (PT) 14.0 seconds (High)?? 07/14/2022 02:46 APTT 34.9 seconds (High)?? 07/14/2022 02:46 ? ENDOCRINE/TUMOR MARKER TSH 2.83 uIU/mL ()?? 07/16/2022 13:47 Cortisol Level 11.2 ??g/dL ()?? 07/16/2022 13:47 ?? HEME OTHER Hold Lavender Top SPECIMEN DISCARDED AFTER 24 HOURS. ()?? 07/18/2022 12:07 Hold Blue Top SPECIMEN DISCARDED AFTER 4 HOURS. ()?? 07/18/2022 09:36 ?? MISC. CHEMISTRY Hold Green Top SPECIMEN DISCARDED AFTER 1 WEEK ()?? 07/18/2022 09:36 Procalcitonin 0.12 ng/mL ()?? 07/18/2022 09:36 Hold Gel Top SPECIMEN DISCARDED AFTER 1 WEEK ()?? 07/17/2022 01:55 ? SEROLOGY INF DISEASE Legionella pneumophila Antigen NEGATIVE ()?? 07/14/2022 01:00 ? TOXICOLOGY/TDM Ethanol, Serum or Plasma NONE DETECTED mg/dL ()?? 07/13/2022 20:59 Vancomycin Level, Trough 12.5 mg/L ()?? 07/15/2022 04:04 ?? UA/URINALYSIS Appear/Color, Urine YELLOW ()?? 07/13/2022 21:05 Specific [place], Urine 1.014 ()?? 07/13/2022 21:05 pH, Urine 6.5 ()?? 07/13/2022 21:05 Albumin, Urine TRACE (Abnormal)?? 07/13/2022 21:05 Glucose, Urine NEGATIVE ()?? 07/13/2022 21:05 Ketones, Urine NEGATIVE ()?? 07/13/2022 21:05 Bilirubin, Urine NEGATIVE ()?? 07/13/2022 21:05 Hemoglobin, Urine NEGATIVE ()?? 07/13/2022 21:05 Nitrite, Urine NEGATIVE ()?? 07/13/2022 21:05 Leukocyte, Urine NEGATIVE ()?? 07/13/2022 21:05 Urobilinogen 2 mg/dL (Abnormal)?? 07/13/2022 21:05 WBC's, Urine 1 /HPF ()?? 07/13/2022 21:05 RBC's, Urine <1 /HPF ()?? 07/13/2022 21:05 Mucus SLIGHT /LPF ()?? 07/13/2022 21:05 Hold Urine Culture Testing available 48 hours from time of collection. ()?? 07/13/2022 21:05 ? URINE OTHER Creatinine, Urine Random 30.8 mg/dL ()?? 07/16/2022 12:05 Sodium, Urine Random 39 mmol/L ()?? 07/16/2022 12:05 Potassium, Urine Random 12.0 mmol/L ()?? 07/16/2022 12:05 Osmolality, Urine Random 541 mOsm/kg ()?? 07/16/2022 23:20 ? Microbiology ?? Blood Culture?? Completed?? Source: Blood Body Site: ?? Collected Dt/Tm: 07/13/2022 20:37 Last Updated Dt/Tm: 07/13/2022 20:37 ?SPECIMEN DESCRIPTION : BLOOD ??NOT GIVENSPECIAL REQUESTS : NONECULTURE : NO GROWTH 5 DAYS.REPORT STATUS : FINAL 07/18/2022 Blood Culture #2?? Completed?? Source: Blood Body Site: ?? Collected Dt/Tm: 07/13/2022 20:37 Last Updated Dt/Tm: 07/13/2022 20:37 ?SPECIMEN DESCRIPTION : BLOOD NOT GIVENSPECIAL REQUESTS : NONECULTURE : NO GROWTH 5 DAYS.REPORT STATUS : FINAL 07/18/2022 Sputum Culture w/ Gram Smear?? Completed?? Source: Sputum Expectorated Body Site: ?? Collected Dt/Tm: 07/14/2022 06:37 Last Updated Dt/Tm: 07/14/2022 06:37 ?SPECIMEN DESCRIPTION : EXPECTORATED SPUTUMSPECIAL REQUESTS : NONEGRAM STAIN : 1+ POLYMORPHONUCLEAR LEUKOCYTES ?1+ SQ.EPITHELIAL CELLS ?2+ GRAM POSITIVE COCCI ?1+ GRAM POSITIVE RODSCULTURE : 2+ NORMAL FLORAREPORT STATUS : FINAL 07/16/2022 ? Inocente Ramos MD Internal Medicine PGY1; Pager: #[phone] ?? The patient was discussed with and seen by the attending physician.?? 45??minutes spent on discharge * Jayesh ZARCO, Tiffani Josue: PERFORM Event Display: Discharge/Transfer Note Hospital Authored Date: [id number] Patient seen and discussed with Dr. Cruz. Agree with findings, assessment and plan in this discharge summary. * Xu HERRERA, Mariella Josue: MODIFY, PERFORM Event Display: Patient Education/Instruction Authored Date: [id number] Inpatient Adult Discharge Instructions [address] [address] Name: MIKHAIL LAGUNAS : 1955 Visit: 07/13/2022 23:25:00 Current Date: 07/25/2022 12:56 Account: [id number] Inpatient Adult Discharge Instructions We would like [...] and their families. Surveys are administered by [employer] ?? If further treatment with your primary care physician or another doctor is recommended, it is important for you to keep the appointment. Call your primary care physician or return to the Emergency Department immediately if your condition worsens, fails to improve, or new symptoms develop. If you need to find a doctor, you can call [email or web address] for a referral at [phone] or toll free at [phone]) or log in to [email or web address].. ?? You can view and manage your care through the patient portal or by using a health care suzanne of your choosing. [employer] is a website that allows you to securely view your medical information including your hospital discharge summary, office visit summaries, medications and follow-up visits. You can also request appointments, renew medications, and request access to your medical information using a health care suzanne of your choosing, or just ask a question. You can enroll at [email or web address] or register during your next office visit. You have been discharged from [facility], Patient Care Unit: S3. If you have any questions regarding these instructions after you leave, please call us and we will be happy to assist you. [facility] Your Care Team Attending Physician Jayesh ZARCO, Tiffani Mcclendon MD, Lili Kulkarni MD, Amrit Madrid; Raghav ZARCO, Bahman; Boris ZARCO, Lamberto Menendez Reason for Admission Sepsis - possible Your Diagnosis COVID-19 Tests Performed Below is a partial list of the tests performed during your hospitalization. You may have had other tests and procedures not included in this list. Please discuss all test results with your provider. Alk Phos ALT AST Basic Metabolic Panel Bilirubin Total + Direct BUN Calcium Level CBC CBC w/ Differential Comprehensive Metabolic Panel Cortisol Level Creatinine Electrolytes Ethanol Level Glucose Level GLUCOSE POC High??Sensitivity??Troponin T HOLD BLUE TUBE HOLD GEL TUBE HOLD GREEN TUBE HOLD LAVENDER TUBE INR Ionized Calcium Lactate Level LFT's Lytes Magnesium Level MRSA PCR Nasal Swab Osmolality OSMOLALITY, URINE RANDOM Phosphorus Level ProBNP PROCALCITONIN, SERUM PTT Sodium Level Sodium Urine Troponin T, High Sensitivity TSH TSH with T4 Reflex (Adults Only) Uric Acid Urinalysis w/hold for Urine Culture Urine Creatinine Urine Legionella Antigen Urine Osmolality Urine Potassium Vancomycin Trough VBG XR Chest Portable Primary Care Provider Not on Staff, PCP Advance Directive Health Care Proxy on File Yes - Health Care Proxy Discharge Vitals Temperature: 97.9 DegF Height: 180 cm Pulse Rate: 65 bpm Weight: 76.3 kg Respiratory Rate: 18 br/min Body Mass Index:??16.11 kg/m2??Low Systolic Blood Pressure: 116 mm Hg Body surface area: 1.62 Diastolic Blood Pressure: 63 mm Hg ?? Oxygen Saturation: 99 % ?? Studies Pending All tests and labs ordered during this hospital stay have been completed unless listed below. Please discuss all pending results with your provider listed above in these instructions. ?? Add On Lab Order COVID-19 (2019 Novel Coronavirus) PCR What to do next Instructions From Your Doctor You presented to the hospital in shock from a pneumonia, and were also found to have an infection from COVID. ?? Instructions: -Please followup with your PCP in 1 week to review medications and repeat your blood work. -We have reduced your furosemide tablet from twice a day to daily -We have stopped your spironolactone, please followup with your pcp with regards to restarting it -If you are finding urea from the pharmacy for your hyponatremia to be to expensive, many patients fine Ureaide on Amazon to be a much more affordable alternative. Alternatively, you can discuss initiating salt tablets with your PCP. Discharge Orders You Need to Schedule the Following Appointments Follow Up with??Janene Akers NP When??Within 1 to 2 weeks Where: [address] [facility] [place], [place] [id number]- Discharge Medications MIKHAIL LAGUNAS :1955 Visit Date:07/13/2022 Medications: Please continue your medications until treatment is completed or stopped by your provider. Medications not listed below should be discontinued. Discuss any questions related to medications with your provider. What How Much When Instructions Next Dose New Durable Medical Equipment (Walker; Dx Heart failure with reduced ejection fraction I50. 22) See instructions Walker; Dx Heart failure with reduced ejection fraction I50. 22 ?? Printed Prescription walker was provided New urea powder (ure-Na 15 g oral powder for reconstitution) 30 gram Oral Daily next dose due 4/4 at 9am next dose due 4/4 at 9am Changed Furosemide (furosemide 20 mg oral tablet) 1 tab(s) Oral Daily next dose due 4/4 at 9am next dose due 4/4 at 9am Unchanged Albuterol (Ventolin HFA 108 mcg/ inh inhalation aerosol with adapter) 1 puff(s) Inhalation 4 times a day as needed for for wheezing take as directed for wheezing take as directed for wheezing Unchanged Albuterol/ Ipratropium (albuterol-ipratropium 3 mg-0.5 mg/ 3 ml inhalation solution) 3 Milliliter Inhalation 4 times a day take as directed for wheezing take as directed for wheezing Unchanged apixaban (Eliquis 5 mg oral tablet) TAKE 1 TABLET BY MOUTH 2 TIMES DAILY. ?? next dose due 4/3 at 9pm next dose due 4/3 at 9pm Unchanged Aspirin (aspirin 81 mg oral tablet, chewable) 1 tab(s) Oral Daily next dose due 4/4 at 9am next dose due 4/4 at 9am Unchanged Atorvastatin (atorvastatin 40 mg oral tablet) 1 tab(s) Oral Daily next dose due 4/4 at 9am next dose due 4/4 at 9am Unchanged Carvedilol (Coreg 3.125 mg oral tablet) 1 tab(s) Oral Twice a day next dose due 4/3 at 9pm next dose due 4/3 at 9pm Unchanged Multivitamin (Daily Jayson oral tablet) TAKE 1 TABLET BY MOUTH EVERY DAY ?? next dose due 4/4 at 9am next dose due 4/4 at 9am Unchanged Naloxone (naloxone 4 mg/ 0.1 mL nasal spray) 4 Milligram Nares, Both Once take as directed take as directed Unchanged Olanzapine (olanzapine 20 mg oral tablet) 1 tab(s) Oral Daily next dose due 4/4 at 9am next dose due 4/4 at 9am Unchanged Pantoprazole (pantoprazole 40 mg oral delayed release tablet) 1 tab(s) Oral Daily next dose due 4/4 at 9am next dose due 4/4 at 9am Unchanged sacubitril-valsartan (Entresto 24 mg-26 mg oral tablet) 1 tab(s) Oral Twice a day next dose due 4/3 at 9pm next dose due 4/3 at 9pm Unchanged Thiamine (Vitamin B1 100 mg oral tablet) 1 tab(s) Oral Daily Duration: 10 Days next dose due 4/4 at 9am next dose due 4/4 at 9am Unchanged umeclidinium-vilanterol (Anoro Ellipta 62.5 mcg-25 mcg/ inh inhalation powder) INHALE 1 PUFF DAILY ?? next dose due 4/4 at 9am next dose due 4/4 at 9am ?? What When Comments Stop Taking Lactulose (lactulose 10 gm/ 15 ml oral syrup) TAKE 30 ML BY MOUTH 4 TIMES A DAY ?? Stop Taking Spironolactone (spironolactone 25 mg oral tablet) TAKE 1 TABLET BY MOUTH EVERY DAY ?? Test Results Below is a partial list of the most recent Laboratory test results done prior to this discharge. You may have had other tests and procedures not included in this list. Please discuss all test resultswith your provider. Alk Phos (07/14/2022) ???Alkaline Phosphatase - 204 units/L ALT (07/14/2022) ???ALT (SGPT) - 64 units/L AST (07/14/2022) ???AST (SGOT) - 50 units/L Basic Metabolic Panel (07/20/2022) ???Sodium - 129 mmol/L???Potassium - 4.4 mmol/L???Chloride - 95 mmol/L???Bicarbonate Level - 27 mmol/L???Anion Gap - 7???Glucose Level - 90 mg/dL???BUN - 38 mg/dL???Creatinine-Blood - 0.6 mg/dL???Estimated GFR Creatinine - 107 ML/MIN/1.73 M2???Calcium - 8.7 mg/dL Bilirubin Total + Direct (07/14/2022) ???Bilirubin, Total - 1.6 mg/dL???Bilirubin, Direct - 1.1 mg/dL???Bilirubin, Indirect - 0.5 mg/dL BUN (07/19/2022) ???BUN - 17 mg/dL Calcium Level (07/17/2022) ???Calcium - 8.3 mg/dL CBC (07/21/2022) ???WBC - 8.7 k/mm3???RBC - 2.95 m/mm3???Hgb - 10.1 Gm/dL???Hct - 28.8 %???MCV - 97.6 femtoliters???MCH - 34.2 pg???MCHC - 35.1 g/dL???Platelet Count - 224 k/mm3???RDW-SD - 48.2 femtoliters???MPV - 8.9 femtoliters???Nucleated RBC (Automated) - 0.0 #/100 WBC'S???Abs. NRBC - 0.0 k/mm3 CBC w/ Differential (07/16/2022) ???WBC - 13.2 k/mm3???RBC - 2.89 m/mm3???Hgb - 9.9 Gm/dL???Hct - 27.9 %???MCV - 96.5 femtoliters???MCH - 34.3 pg???MCHC - 35.5 g/dL???Platelet Count - 171 k/mm3???RDW-SD - 49.4 femtoliters???MPV - 9.4 femtoliters???Nucleated RBC (Automated) - 0.0 #/100 WBC'S???Abs. NRBC - 0.0 k/mm3???Abs. Neut - 10.7 k/mm3???Abs. Lymph - 1.2 k/mm3???Abs. Addison - 1.0 k/mm3???Abs. Eo - 0.1 k/mm3???Abs. Baso - 0.0 k/mm3???Neut % - 81.2 %???Lymph % - 9.3 %???Addison % - 7.3 %???Eos % - 0.5 %???Baso % - 0.3 %???Imm Gran- 1.4 %???Abs. Imm Gran - 0.2 k/mm3 Comprehensive Metabolic Panel (07/21/2022) ???Sodium - 128 mmol/L???Potassium - 4.2 mmol/L???Chloride - 95 mmol/L???Bicarbonate Level - 27 mmol/L???Anion Gap - 6???Glucose Level - 100 mg/dL???BUN - 43 mg/dL???Creatinine-Blood - 0.6 mg/dL???Estimated GFR Creatinine - 104 ML/MIN/1.73 M2???Calcium - 9.0 mg/dL???Protein, Total - 6.8 Gm/dL???Albu min - 3.1 Gm/dL???AG Ratio - 0.8???Alkaline Phosphatase - 280 units/L???AST (SGOT) - 28 units/L???ALT (SGPT) - 54 units/L???Bilirubin, Total - 0.7 mg/dL Cortisol Level (07/16/2022) ???Cortisol Level - 11.2 ??g/dL Creatinine (07/19/2022) ???Creatinine-Blood - 0.5 mg/dL???Estimated GFR Creatinine - 114 ML/MIN/1.73 M2 Electrolytes (07/19/2022) ???Sodium - 128 mmol/L???Potassium - 4.4 mmol/L???Chloride - 96 mmol/L???Bicarbonate Level - 27 mmol/L???Anion Gap - 5 Ethanol Level (07/13/2022) ???Ethanol, Serum or Plasma - NONE DETECTED Glucose Level (07/17/2022) ???Glucose Level - 92 mg/dL GLUCOSE POC (07/21/2022) ???Glucose, POC - 95 mg/dL High??Sensitivity??Troponin T (07/13/2022) ???High Sensitivity Troponin (HSTnT) - 15 ng/L HOLD BLUE TUBE (07/18/2022) ???Hold Blue Top - SPECIMEN DISCARDED AFTER 4 HOURS. HOLD GEL TUBE (07/17/2022) ???Hold Gel Top - SPECIMEN DISCARDED AFTER 1 WEEK HOLD GREEN TUBE (07/18/2022) ???Hold Green Top - SPECIMEN DISCARDED AFTER 1 WEEK HOLD LAVENDER TUBE (07/18/2022) ???Hold Lavender Top - SPECIMEN DISCARDED AFTER 24 HOURS. INR (07/14/2022) ???INR - 1.3???Protime (PT) - 14.0 seconds Ionized Calcium (07/15/2022) ???Calcium, Ionized pH Corrected - 1.19 mmol/L Lactate Level (07/13/2022) ???Lactate - 1.4 mmol/L LFT's (07/18/2022) ???Protein, Total - 5.8 Gm/dL???Albumin - 3.0 Gm/dL???Alkaline Phosphatase - 274 units/L???AST (SGOT) - 50 units/L???ALT (SGPT) - 67 units/L???Bilirubin, Total - 0.8 mg/dL???Bilirubin, Direct - 0.4 mg/dL???Bilirubin, Indirect - 0.4 mg/dL Lytes (07/23/2022) ???Sodium - 132 mmol/L???Potassium - 4.4 mmol/L???Chloride - 99 mmol/L???Bicarbonate Level - 26 mmol/L???Anion Gap - 7 Magnesium Level (07/16/2022) ???Magnesium - 1.8 mg/dL MRSA PCR Nasal Swab (07/14/2022) ???MRSA PCR Result - Positive, MRSA target DNA detected.???S Aureus PCR Result - Positive, SA target DNA detected. Osmolality (07/16/2022) ???Osmolality - 262 mOs/kg OSMOLALITY, URINE RANDOM (07/16/2022) ???Osmolality, Urine Random - 221 mOsm/kg Phosphorus Level (07/15/2022) ???Phosphorus - 2.9 mg/dL ProBNP (07/13/2022) ???Nt-Probnp - 1177 pg/mL PROCALCITONIN, SERUM (07/18/2022) ???Procalcitonin - 0.12 ng/mL PTT (07/14/2022) ???APTT - 34.9 seconds Sodium Level (07/18/2022) ???Sodium - 131 mmol/L Sodium Urine (07/16/2022) ???Sodium, Urine Random - 39 mmol/L Troponin T, High Sensitivity (07/13/2022) ???High Sensitivity Troponin (HSTnT) - 14 ng/L TSH (07/16/2022) ???TSH - 2.83 uIU/mL TSH with T4 Reflex (Adults Only) (07/13/2022) ???TSH - 3.08 uIU/mL Uric Acid (07/16/2022) ???Uric Acid - 2.1 mg/dL Urinalysis w/hold for Urine Culture (07/13/2022) ???Appear/Color, Urine - YELLOW???Specific [place], Urine - 1.014???pH, Urine - 6.5???Albumin, Urine - TRACE???Glucose, Urine - NEGATIVE???Ketones, Urine - NEGATIVE???Bilirubin, Urine - NEGATIVE???Hemoglobin, Urine - NEGATIVE???Nitrite, Urine - NEGATIVE???Leukocyte, Urine - NEGATIVE???Urobilinogen - 2 mg/dL? ?WBC's, Urine - 1 /HPF? ?RBC's, Urine - <1 /HPF? ?Mucus - SLIGHT? ?Hold Urine Culture - Testing available 48 hours from time of collection. Urine Creatinine (07/16/2022) ???Creatinine, Urine Random - 30.8 mg/dL Urine Legionella Antigen (07/14/2022) ???Legionella pneumophila Antigen - NEGATIVE Urine Osmolality (07/16/2022) ???Osmolality, Urine Random - 541 mOsm/kg Urine Potassium (07/16/2022) ???Potassium, Urine Random - 12.0 mmol/L Vancomycin Trough (07/15/2022) ???Vancomycin Level, Trough - 12.5 mg/L VBG (07/14/2022) ???Specimen Type - Blood Gas - VENOUS???pH, Venous - 7.41???pCO2, Venous - 41 mm Hg???pO2, Venous -28 mm Hg???Bicarbonate, Estimated(Venous) - 26 mmol/L Allergies (NKA means No Known Allergies) NKA Problems Active Problems??(8) CAD (coronary artery disease)?? COPD with emphysema?? HTN (hypertension)?? Hyperlipidemia?? Mood disorder?? Polysubstance abuse?? Tobacco use?? Underweight?? Education Materials Below is the list of Educational Leaflet Providered with your Discharge Instructions. Discharge Instructions for Hyponatremia?? Valuables and Belongings I fully understand and agree that [facility] accepts no responsibility for all my [...] ?? Date for Pt to Sign Valuables/Belongings: 07/16/22 13:34:00 ?? Other Discharge Information ?? Wound Assessment?? Wound Assessment?? Wound Location I: [place], right ?? Case Management Discharge Plan?? Discharge Plan?? Discharge Agency Information?? Discharge Level of Care at Discharge: Homehealth/VNA [facility] of Agency [facility] Discharge Rx Program: Discharge Prescription Program [facility] Discharge V[facility]/Hospice/Home Care: [facility] Lighting Director #1: Intake Discharge Medical Equipment Companies: [employer] Service Categories #1: Physical Therapy, Half-Way ?? Service Comments #1: You will be discharged and resuming services with [facility] for fdc and physical therapy services in your home. If you have any questions please contact the agency directly. ?? Service Categories #2: Walker ?? Service Comments #2: Your walker was provided to you by [employer]. If you have any questions please contact [employer] directly. ?? Pulmonary Rehab Status?? Pulmonary Rehab Discharge Status?? Respiratory Rate: 18 br/min Discharge Medical Equipment Companies: [employer] ? Common Emergency Awareness Tips IS IT [...] are strongly encouraged to quit. Please call [facility] [employer] at [phone] or [phone] ([phone]) or log in to [email or web address] for referrals to smoking cessation programs. ?? The National Suicide Prevention Hotline is available 14/11 if you or someone you know needs to find a reason to keep living. By calling 5-750-475-Noitavonne (2976) you'll be connected to a skilled, trained counselor at a crisis center in your area. INPATIENT DISCHARGE INSTRUCTIONS SIGNATURE MIKHAIL BARRETO Location:[facility] Registration Date and Time:07/13/2022 23:25 EDT Primary Care Physician: Not on Staff, PCP MIKHAIL LANG, have received the above patient education materials/instructions and have verbalized understanding. If ambulance or transport services are being used I further acknowledge being given a choice of service. ?? If you need to contact me, please call me at this number: . Patient/Polytechnic Teacher Name: Patient/Polytechnic Teacher Signature: Relationship to Patient: Witness Name/Signature: Date: * Mariella Mcnair RN: PERFORM Event Display: Patient Education Leaflets Authored Date: [id number] Furosemide Oral Tablet ?? [id number] Furosemide Oral Tablet Brands: Lasix Uses This medicine is used for the following purposes: ??? high blood pressure ??? swelling ?? Instructions This medicine may be taken with or without food. This medicine will work best if you take it at about the same time every day. Keep the medicine at room temperature. Avoid heat and direct light. This medicine will make you urinate more. If you have difficulty passing urine, please tell your doctor. This medicine can make you sensitive to the sun. Use sunscreen or protective clothing when in sun. It is important that you keep taking each dose of this medicine on time even if you are feeling well. If you forget to take a dose on time, take it as soon as you remember. If it is almost time for thenext dose, do not take the missed dose. Return to your normal schedule. Do not take 2 doses at one time. Tell your doctor and pharmacist about all your medicines. Include prescription and xioz-wco-ikdlpssngwqqehzo, vitamins, and herbal medicines. Do not suddenly stop taking this medicine. Check with your doctor before stopping. This medicine may affect your blood sugar levels. If you have diabetes, talk to your doctor before changing the dose of your diabetes medicine. It is very important that you follow your doctor's instructions for all blood tests. ?? Cautions Tell your doctor and pharmacist if you ever had an allergic reaction to a medicine. Some patients taking this medicine have experienced serious side effects. Please speak with your doctor to understand the risks and benefits associated with this medicine. Do not use the medication any more than instructed. This medicine may cause dizziness or fainting, especially after exercising or in hot weather. Be very careful when standing or sitting up quickly. Your ability to stay alert or to react quickly may be impaired by this medicine. Do not drive or operate machinery until you know how this medicine will affect you. Please check with your doctor before drinking alcohol while on this medicine. Tell the doctor or pharmacist if you are , planning to be , or . Do not start or stop any other medicines without first speaking to your doctor or pharmacist. Do not share this medicine with anyone who has not been prescribed this medicine. ?? Side Effects The following is a list of some common side effects from this medicine. Please speak with your doctor about what you should do if you experience these or other side effects. ??? constipation ??? dizziness ??? dry mouth ??? lack of energy and tiredness ??? headaches ??? high blood sugar ??? low blood pressure ??? liver problems ??? red, burning, or itchy skin ??? stomach upset or abdominal pain ??? increased urinary frequency ??? blurring or changes of vision If you have any of the following side effects, you may be getting too much medicine. Please contactyour doctor to let them know about these side effects. ??? confusion ??? drowsiness or sedation ??? fainting ??? numbness or tingling in hands and feet ??? irritability ??? muscle cramps ??? muscle pain or weakness ??? tight or rigid muscles ??? thirst ??? unsteadiness while walking ??? urinating less often ??? dark urine Call your doctor or get medical help right away if you notice any of these more serious side effects: ??? shallow, irregular breathing ??? changes in memory, mood, or thinking ??? ear problems (ringingin the ears, hearing loss) ??? fast or irregular heart beats ??? kidney problems ??? kidney stones ??? signs of liver damage (such as yellowing of eye or skin, dark urine, or unusual tiredness) ??? seizures ??? light colored stool ??? severe or persistent vomiting A few people may have an allergic reaction to this medicine. Symptoms can include difficulty breathing, skin rash, itching, swelling, or severe dizziness. If you notice any of these symptoms, seek medical help quickly. ?? Extra Please speak with your doctor, nurse, or pharmacist if you have any questions about this medicine. ?? [email or web address] IMPORTANT NOTE: This document tells you briefly how to take your medicine, but it does not tell youall there is to know about it. Your doctor or pharmacist may give you other documents about your medicine. Please talk to them if you have any questions. Always follow their advice. There is a more complete description of this medicine available in Congolese. Scan this code on your smartphone or tablet or use the web address below. You can also ask your pharmacist for a printout. If you have any questions, please ask your pharmacist. The display and use of this drug information is subject to Terms of Use. Copyright(c) 2022 [employer]. ?? [employer]. All rights reserved. This information is not intended as a substitute for professional medical care. Always follow your healthcare professional's instructions. ?? * Xu HERRERA, Mariella Josue: PERFORM Event Display: Patient Education Leaflets Authored Date: [id number] Pneumonia (Adult) ?? [id number] Pneumonia (Adult) Pneumonia is an infection inside the lungs. It's in the small air sacs (alveoli). It may be caused by a virus, fungus, or bacteria. Pneumonia caused by bacteria??is treated with an antibiotic medicine. Severe cases may need to be treated in the hospital. Milder cases can be treated at home. Symptoms may include fever, chills, and cough (dry or with phlegm). You may have a headache, muscle weakness, trouble breathing, and pain. These symptoms often get worse in the first 2 days. But they often start to get better in the first week of treatment. Home care Follow these guidelines when caring for yourself at home: ??? Get plenty of rest. Take naps as needed. Don???t let yourself get too tired when you go back to your activities. Go back to activities asdirected by your healthcare provider. ??? Stop smoking. This is the most important step you can take to help treat pneumonia. If you need help to stop, talk with your healthcare provider. ??? Stay away from secondhand smoke. Don???t let anyone smoke in your home or your car. ??? Wash your hands often with soap and clean, running water. Rub for at least 20 seconds. Make sure to clean under your nails and between your fingers. When you can't wash your hands, use hand general manager [employer] production with at least 60% al cohol. ??? Cover your mouth and nose when coughing or sneezing. Use a tissue or the inside of your elbow. Don't cough or sneeze into your hands. Throw used tissues away. Be sure to wash your hands after coughing, sneezing, or blowing your nose. ??? Limit close contact with other people while you are sick. ??? Stay away from crowds during cold and flu season. Consider wearing a mask in crowds. ???Use pain medicine as directed. You may use acetaminophen or ibuprofen to control fever or pain, unless another medicine was prescribed. If you have chronic liver or kidney disease, talk with your healthcare provider before using these medicines. Also talk with your provider if you???ve had a stomach ulcer or bleeding in your stomach or intestines. Don???t give aspirin to a child younger than age 19 unless directed by the provider. Taking aspirin can put a child at risk for Elvira syndrome. This is a rare but very serious disorder. It most often affects the brain and the liver. ??? Drink plenty of water and other fluids. This can make mucus thinner and easier to cough up. Ask your healthcare provider how much water you should drink. For many people, 6 to 8 glasses (8 ounces each) a day is a good goal. Other fluids include sport drinks, sodas without caffeine, juices, tea, or soup. If you also have heart or kidney disease, check with your provider before you drink extra fluids. ??? Eat asyou are able. You may not feel hungry, so a light diet is fine. Follow the treatment plan as advised by your healthcare provider. ??? Take medicines as instructed by your healthcare provider. If you were given an antibiotic medicine, take it until it's all gone, even if you are feeling better aftera few days. ??? Try to stay away from air pollution. If you live in an area with air pollution, track the Air Quality Index (AQI) reports. Plan your outdoor activities when air quality is OK. ?? Follow-up care Follow up with your healthcare provider in the next 2 to 3 days, or as advised. Following up with your provider as directed is important to make sure you are getting better. You may need more tests if you aren't getting better. Take steps to prevent future infections. Ask your healthcare provider what vaccines are right for you and when to get them. This may include the influenza (flu), COVID-19, and pneumococcal vaccines. ?? Call 911 Call 911if any of these occur: ??? Unable to speak or swallow ??? Lips or skin looks blue, purple, or rod ??? Feeling dizzy ??? Fainting ??? Unable to be awake or aware ??? Feeling of doom ??? Trouble breathing or wheezing ??? Shortness of breath gets worse or doesn't get better with treatment ???Rapid breathing (more than 25 breaths per minute) ??? Coughing up blood ??? Chest pain gets worse with breathing or doesn't get better with treatment ?? When to get medical advice Call your healthcare provider right away if any of these occur: ??? You don???t get better in the first 2 to 3 days of treatment ??? Fever of??100.4??F (38??C) or higher, or as directed by your healthcare provider ??? Shaking chills ??? Cough with phlegm that doesn't get better, or get worse ??? Shortness of breath with activities ??? Weakness, dizziness, or fainting that gets worse ??? Thirst ordry mouth that gets worse ??? Sinus pain, headache, or a stiff neck ??? Chest pain with breathing or coughing ??? Symptoms that get worse or don't get better ?? Last Reviewed Date: 2021 ?? [employer]. All rights reserved. This information is not intended as a substitute for professional medical care. Always follow your healthcare professional's instructions. ?? * Xu HERRERA, Mariella Josue: PERFORM Event Display: Patient Education Leaflets Authored Date: [id number] Coronavirus Disease 2019 (COVID-19): Overview ?? [id number] Coronavirus Disease 2019 (COVID-19): Overview Coronavirus disease 2019 (COVID-19) is an illness that infects the lungs. It's caused by a type of coronavirus. The virus is called SARS-CoV-2. There are many types of coronaviruses. They are a common cause of colds and bronchitis. They can cause a lung infection called pneumonia. Symptoms can range from mild to severe. Some people have no symptoms. These types of viruses are also found in some animals. Viruses change (mutate) all the time. The changes lead to different forms of a virus. These are called variants. COVID-19 variants may spread more easily from person to person. They may cause milder symptoms. Or they may cause more severe symptoms.?? The virus spreads and infects people easily. It can infect a person more easily if they are not immune to it. The virus most often spreads through droplets of fluid that a person coughs or sneezes into the air. In some cases, you can get it from touching a surface with the virus on it and then touching your eyes, nose, or mouth. To help prevent spreading the infection, wash your hands often, or use an alcohol-based hand general manager road production. To learn more For the latest from the CDC: ? Go to the CDC website ??? Call 295-DHK-UPWM (363-666-0964) ? What are the symptoms of COVID-19? Some people have no symptoms. Some have mild symptoms. Others may have severe symptoms. This variesfrom person to person. Symptoms may start 2 to 14 days after contact with the virus. They can include: ??? Fever ??? Chills ??? Coughing ??? Trouble breathing or feeling short of breath ??? Sore throat ??? Stuffy or runny nose ??? Headache ??? Body aches ??? Tiredness ??? Nausea, vomiting, diarrhea, or belly pain ??? New loss of sense of smell or taste ?? What are possible complications of COVID-19? The virus can cause an infection in the lungs. This is called pneumonia. This can lead to in some cases. Experts are still learning more about COVID-19 problems. Problems may include: ??? Low blood pressure ??? Kidney failure ??? Inflammation of the brain or heart ??? Rashes Some people are at higher risk for problems. This includes: ??? Older adults ??? People with heart or lung disease ??? People with diabetes or kidney disease ??? People with health conditions that limit the immune system ??? People who take medicines that limit the immune system Rarely, a child may have a severe complication. This is called multisystem inflammatory syndrome inchildren (MIS-C). MIS-C seems to be like Kawasaki disease. This is a rare illness. It causes swelling of blood vessels and body organs. MIS can also happen in adults. But this is less common. ? How is COVID-19 diagnosed? Your healthcare provider will ask: ??? What symptoms you have ??? Where you live ??? If you???ve traveled recently ??? If you???ve hadcontact with sick people ??? If you are vaccinated against COVID-19 ??? If you have had COVID-19 You may have 1 of these tests for COVID-19: ??? Viral (molecular) test. You may also hear this called a PCR or RT-PCR test. Viral tests are very accurate. A viral test looks for the genetic material (RNA) of the SARS-CoV-2 virus. There are a few ways to do this. A swab may be wiped inside your nose or throat. Or a long swab may be put into your nose down to the back of your throat. Or a sample of your saliva may be taken. Your test results may be back in 45 minutes to a few hours. This depends on the type of test. Some tests must be sentto a lab. These can take several days for the results. You can now get test kits to use at home. Some of these need a prescription. Follow the instructions in the kit closely if you use a home kit. Some kits show results quickly at home. Others must be sent to a lab for the results. ??? Antigen test. This can find proteins from the SARS-CoV-2 virus. A swab may be wiped inside your nose or throat.Or a long swab may be put into your nose down to the back of your throat. Some results are back within 15 to 60 minutes. This depends on the type of test. Positive results are very accurate. But false positive results can happen. And the results can be negative even in people with COVID-19. Antigentests are more likely to miss a COVID-19 infection than a viral (molecular) test. You may need to have a viral test if your antigen test is negative but you have symptoms of COVID-19. ??? Breath test. This rapid test is not widely available at this time. It finds SARS-CoV-2 infection in the breath.The test is done at providers' offices, hospitals, and mobile testing sites. You may have other tests if your provider thinks or confirms that you have COVID-19. These tests may include: ??? Antibody blood test. This type of test can show if you had the virus in the past. It shows antibodies for the virus in the blood. The accuracy of these tests varies. And they are not available everywhere. An antibody test may not show if you have an infection right now. This is because it can take up to a few weeks for your body to make antibodies. None of the antibody tests can yet be used to tell if a person is immune to the virus. ??? Sputum culture. If you have a wet cough, you may be asked to cough up a bit of mucus (sputum) from your lungs. This is tested for the virus. It may be tested for pneumonia. ??? Imaging tests. You may have a chest X-ray or CT scan. Can you get COVID-19 again? Yes, you can get COVID-19 more than once. You may not have immunity. You could have lost the immunity. Or you may get COVID-19 from a different strain (variant) of the virus that you are not immune to. But the COVID-19 vaccine helps lower the risk for COVID-19. ?? Vaccines for COVID-19 The FDA and CDC advise vaccines to help prevent COVID-19. The vaccines can also make the illness less severe. It can keep you from needing to go to the hospital.?? And it can prevent the spread of the virus to others. No vaccine is 100% effective at preventing an illness. But getting a vaccine is important. COVID-19 vaccines are available for people as young as 6 months old. or people can have the vaccine. Vaccines are given as a primary series.Boosters are given later tohelp with protection. The vaccines are given as a shot (injection) into the muscle. Ask your healthcare provider which vaccine is best for you and your family. There is a 1- dose vaccine from Novalere FP (J&&) for people ages 18 and older. Or a 2-dose vaccine from Polwire for people ages 12 and older. Two-dose Pfizer and Moderna vaccines are for people as young as 6 months old. They are given in se veral doses a few weeks apart. People with a weak immune system may have other advice. Talk with your healthcare provider about which vaccine is best for you and your family. COVID-19 vaccine booster shots People age 5 or older can get a COVID-19 booster shot. It's given a few months after their primary series. Boosters can help with protection against COVID-19 that may have decreased over time. Booster advice varies by vaccine, age, health, and COVID-19 variants. Talk with your provider aboutyour risk and when to get a booster. ?? How is COVID-19 treated? The best treatments right now are those to help your body while it fights the virus. This is calledsupportive care. It includes: ??? Rest. This helps your body fight the illness. ??? Fluids. Try to drink 6 to 8 glasses of fluidsevery day. Ask your provider which drinks are best for you. Don't have drinks with caffeine or alcohol. ??? Fesr-rev-ckyzsji (OTC) medicine. These are used to help ease pain and reduce fever. Ask your provider which OTC medicine is safe for you to use. Talk with your provider if you have confirmed COVID-19. You may qualify for medicines approved by the FDA to prevent severe COVID-19 infection. You may need to stay in the hospital for severe illness. Your care may include: ??? IV fluids. These are given through a vein. This helps to replace fluids in your body. ??? Oxygen. You may be given extra oxygen. Or you may be put on a breathing machine (ventilator). This is done so you get enough oxygen in your body. ??? Prone positioning. Your healthcare team may regularly turn you on your stomach. This is called prone positioning. It helps increase the amount of oxygen you get to your lungs.Follow their instructions on position changes while you're in the hospital and at home. ??? Antivirals and monoclonal antibodies. The FDA has approved certain antivirals and monoclonal antibodies to treat COVID-19. These treatments are for people who are more likely to get very sick. These treatments are not available for everyone. Talk with your healthcare provider to learn more. o Antivirals stop the SARS-CoV-2 virus from spreading in the body. o Monoclonal antibodies help the immune system fight the virus. ? Steroids or other anti-inflammatory medicines. These are used to lessen the inflammation that some people with COVID-19 have. Inflammation can lead to more trouble breathing. Itcan cause other complications or . ??? COVID-19 convalescent plasma. Plasma is the liquid partof blood. People who had COVID-19 may be asked to donate plasma. This is called COVID-19 convalescent plasma. The plasma may have antibodies. These can help fight COVID-19 in people who are very ill with it. Check with your provider to see if this is an option in your area. ?? Are you at risk for COVID-19? You are at risk for COVID-19 if any of these apply to you: ??? You live in or traveled to an area with cases of COVID-19 ??? You had close contact (within 6 feet) with someone who had COVID-19 COVID-19 may be spread by people who don't show symptoms. Date last modified: 12/30/2021 ?? Last Reviewed Date: 2020 ?? [id number] [employer]. All rights reserved. This information is not intended as a substitute for professional medical care. Always follow your healthcare professional's instructions. ?? * Event Display: Cardiac Rhythm Strips Authored Date: Hospital Progress note * Alexis Dalton RN: PERFORM, SIGN, VERIFY Event Display: Progress Note Hospital Authored Date: Patient: MIKHAIL LAGUNAS Age: 66 years Sex: Male : 1955 Associated Diagnoses: None Author: Alexis Dalton RN Findings Narrative/Incidental Patient alert and oriented x3. Ambulates independently with walker. Gait is steady. Report given tokim on Taodynecharge unit. Patient can account for all belongings. Patient wheeled off unit to S3 for discharge. . Discharge Information Case Management Discharge Plan : Case Management Discharge Plan Data 07/25/2022 10:16 EDT Discharge Level of Care at Discharge Homehealth/VNA Discharge VNA/Hospice/Home Care [facility] Discharge [employer] [facility] Name of Agency #1 [facility] Name of Agency #1 [facility] Care Agency Lighting Director #1 Intake Service Categories #1 Physical Therapy, Half-Way Service Comments #1 You will be discharged and resuming services with [facility] and physical therapy services in your home. If you have any questions please contact [facility] directly. Service Categories #2 Walker Service Comments #2 Your walker was provided to you by [employer]. If you have any questions please contact [facility] directly. 07/25/2022 10:12 EDT Discharge Level of Care at Discharge In Error (In Error) Discharge VNA/Hospice/Home Care In Error (In Error) Discharge [employer] Equipment Companies In Error (In Error) Name of Agency #1 In Error (In Error) Agency Lighting Director #1 In Error (In Error) Service Categories #1 In Error (In Error) Service Comments #1 In Error (In Error) Service Categories #2 In Error (In Error) Service Comments #2 In Error (In Error) Rehabilitation Discharge : Rehab Discharge Index 07/22/2022 14:24 EDT Walker: distance 20-50 07/21/2022 9:02 EDT Walker: distance < 10 * Zoltan Bush MD: PERFORM, SIGN, VERIFY Event Display: Progress Note Hospital Authored Date: Patient: MIKHAIL LAGUNAS Age: 66 years Sex: Male : 1955 Associated Diagnoses: None Author: Zoltan Bush MD Overnight Events & Current Issues Events noted. Seen and examined C/O about PO fluid restirction Review of Systems Review of Systems Respiratory negative. Cardiovascular negative. Gastrointestinal negative. Physical Examination Vitals Vitals : VITAL SIGNS SECTION 07/25/2022 8:14 EDT Temperature 97.5 DegF (Preliminary) Temperature Route Oral (Preliminary) Pulse Rate 65 bpm (Preliminary) Respiratory Rate 18 br/min (Preliminary) Vented No (Preliminary) Systolic Blood Pressure 116 mm Hg (Preliminary) Diastolic Blood Pressure 63 mm Hg (Preliminary) Pulse Pressure 53 mm Hg (Preliminary) Oxygen Saturation 100 % (Preliminary) Mode of Delivery (Oxygen) Room air (Preliminary) 07/24/2022 20:18 EDT Early Warning Score 3.00 . General Appearance No apparent distress. Respiratory Decreased breath sounds. Cardiac Rhythms: RRR. Abdomen/GI Soft. Non-tender. Extremities Normal. Impression and Plan Comprehensive Plan Euvolemic Hyponatremia c/w SAIDH Uosm (541) > Sosm (262) hypothyroid and adrenal insuff r/o by labs SNa responded to PO fluid rest and PO Urea wijth gaol SNa > 130 REC: repeat renal labs to track SNa, Urea and will checkNH3 given theroectical concern for Urea incr NH3 in liver Dz patients * Jayesh ZARCO, Tiffani Josue: PERFORM Event Display: Progress Note Hospital Authored Date: Patient: ??MIKHAIL LAGUNAS ? Age:??66 Years?Sex:??Male?:??1955?? Subjective denies pain, shortness of breath appetite good ambulation improved Review of Systems negative except as noted above Objective Vital Signs?? Temperature: 97.4 DegF (07/24/22 07:00:00) Temperature Route: Oral (07/24/22 07:00:00) Pulse Rate: 66 bpm (07/24/22 10:07:00) Respiratory Rate: 18 br/min (07/24/22 07:00:00) Systolic Blood Pressure: 108 mm Hg (07/24/22 10:07:00) Diastolic Blood Pressure: 69 mm Hg (07/24/22 10:07:00) Blood pressure sites: Arm, right (07/24/22 07:00:00) Pulse Pressure: 39 mm Hg (07/24/22 07:00:00) Oxygen Saturation: 99 % (07/24/22 07:00:00) Mode of Delivery (Oxygen): Room air (07/24/22 07:00:00) Early Warning Score: 3 (07/24/22 10:08:48) ? Physical Exam General Appearance: The patient is stable Cardiovascular: RRR S1 and S2 heard with no M/R/G. No JVD. Respiratory: lungs clear with good air movement GI: Soft. Nontender and nondistended. normal bowel sounds ext?No edema Neuro:?nonfocal Psych: Alert and oriented x3. Appropriate and pleasant. Lines: Peripheral IV in place _ Inpatient Medications Medications (24) Active SCHEDULED: (16) Apixaban 5 mg Tablet (apixaban 5 mg [...] mcg-25 mcg Inhaler) ??1 puffs, Inhalation, Daily Calcium Carbonate 650 mg (Calcium 260 mg) Tablet (Calcium Carbonate Tablet) ??650 mg, By Mouth, 3 times a day before meals Guaifenesin 200mg/10mL Syrup UD (GuaiFENEsin Liquid) ??200 mg 10 mL, By Mouth, 3 times a day Metoprolol 25mg Tablet (metoprolol 25 mg oral tablet) ??25 mg, By Mouth, 2 times a day NaCl 0.9% Flush 3ml (Flush NaCl 0.9%) ??3 mL, IV Push, Every 8 hours Nicotine 21 mg / 24 hour Patch (Nicotine Topical) ??21 mg, Topically, Daily Olanzapine 10mg Tablet (olanzapine 10 mg oral tablet) ??20 mg, By Mouth, Daily Pantoprazole 40 mg EC Tablet (pantoprazole 40 mg oral delayed release tablet) ??40 mg, By Mouth, Daily Remove Patch (Remove ??Patch) ??1 each, Topically, Daily at bedtime Senna Tablet (Senna 8.6 mg oral tablet) ??8.6 mg 1 tablet, By Mouth, Daily Spiriva Respimat 2.5 mcg Inhaler (Spiriva Respimat Inhaler) ??2 puffs, Inhalation, Daily Thiamine 100 mg Tablet (Vitamin B1 100 mg oral tablet) ??100 mg, By Mouth, Daily Urea 15 Gm Powder (Urea Powder) ??30 Gm, By Mouth, 2 times a day CONTINUOUS: (0) PRN: (8) Acetaminophen 325 mg Tablet (Tylenol 325 mg oral tablet) ??325 mg, By Mouth, Every 4 hours Albuterol 0.083% Inhalation Solution (Albuterol 0.083% inhalation aly) ??2.5 mg 3 mL, BAND Nebulizer, Every 4 hours Dextrose Inj Syringe (Dextrose 50% Inj Syringe (25Gm)) ??12.5 Gm, IV Push Slowly, Every 20 minutes Dextrose Inj Syringe (Dextrose 50% Inj Syringe (25Gm)) ??25 Gm, IV Push Slowly, Every 15 minutes Glucose 40% Gel (15 Gm) (Glucose Gel) ??15 Gm, By Mouth, Every 20 minutes Glucose 40% Gel (15 Gm) (Glucose Gel) ??30 Gm, By Mouth, Every 20 minutes Magnesium Hydroxide 8% Susp UD (Milk of Magnesia Liquid) ??30 mL, By Mouth, 2 times a day Polyethylene Glycol 17 Gm Powder (MiraLax Powder) ??17 Gm 1 pack/packet, By Mouth, Daily ? Results Recent Labs CHEM GENERAL Sodium 132 mmol/L (Low)?? 07/23/2022 00:59 Potassium 4.4 mmol/L ()?? 07/23/2022 00:59 Chloride 99 mmol/L ()?? 07/23/2022 00:59 Bicarbonate Level 26 mmol/L ()?? 07/23/2022 00:59 Anion Gap 7 ()?? 07/23/2022 00:59 ? Assessment/Plan Assessment:? 66 y/o M h/o CAD s/p CABG (2006), paroxysmal??Af/flutter on apixaban, ischemic cardiomyopathy (EF 30 to 35%), COPD, chronic hyponatremia and schizophrenia/mood disorder with alcohol/polysubstance usedisorder, recent ICU admission for acute hypoxic respiratory failure and unresponsiveness requiringintubation 06/20/2022 presented to the ED with lethargy found to be persistently hypotensive requiring vasopressor support in the ED likely secondary to hypovolemic and septic shock (from underlying pneumonia). Pneumonia was MRSA positive and treated with Vancomycin and Cefepime. Course has improved, is saturating appropriately on room air and has been off pressors. Downgraded to non-acute after stabilization. Course complicated by acute on chronic hyponatremia, renal following. Off isolation, medically well but weak. Inpatient rehab (unable to get rehab bed) until strong enough to go home to [facility] w/ services. ?? Acute on Chronic Hypoosmolar euvolemic hyponatremia ??Unspecified Right lung density ??Na around patients baseline, chronic hyponatremia w/ b/g beer drinkers potomania ??Acute exacerbation in hospital, resolved. Finished salt tabs. ??Remains euvolemic on exam ?? Plan: ??-bmp every other day (next July??3) ??-1.5 L fluid restriction ??-urea 15 BID ??-Hold diuretics ??-Repeat CT chest in a few weeks as outpatient for area of consolidation/mass- like on??prev??CTA last admission ?? COVID infection (resolved) ??Pneumonia (resolved) ??COPD emphysema phenotype ??Tobacco use disorder ??No new oxygen requirements movements likely mild COVID infection (tested +07/10 after in hospital exposure) and received 2 doses of COVID-vaccine ??Covid??(07/10), no oxygen requirement during course ??Chest x-ray with possible right-sided consolidation (new compared to recent CT from 06/16), costophrenic blunting of right concerning for mild pleural effusion ??Initially treated w/??vanc??and cefepime (MRSA positive) but then??descalated??to ceftriaxone w/ negative sputum. ?? Plan: ??-Off precautions ??-Guaifenesin 3 times daily for thick secretions, incentive spirometry, acapella ??-Out in chair as tolerated. ??-Smoking cessation counselling and NRT. ??-scheduled??DuoNebs??to Spiriva and Breo ?? Deconditioning: ambulation with walker improving from last??PT eval, did well with??walker today and staff on standby Plan: ??- assess for walker for use at home tomorrow ? CAD s/p CABG 2007 ??Chronic??HFrEF ??AF/Flutter on Apixaban ??Ischemic cardiomyopathy with EF 30% ??Soft bps, holding home??entresto,??aldactone, carvedilol (switched to metoprolol) ?? Plan: ??-Continue aspirin and atorvastatin 40 mg daily ??-Increase metoprolol with holding parameters to 25 mg bid ??-Continue to hold diuresis ??-Strict I's and O's, rn cardiac cath ? Stable/Resolved: ?? Lethargy, improved ??Hypotension - resolved ??Shock- likely hypovolemic/sepsis, resolved ??Etiology likely hypovolemic (has multiple antihypertensives that he took earlier on the day of admission) ??Also likely component to sepsis secondary to COVID with superimposed bacterial pneumonia ??Status post 5 L of fluid, weaned off Levophed ?? Hypoglycemia ??unclear cause, the patient is not on insulin ??hypotension resolved ??cortisol level??wnl??on 07/16 ? Elevated LFTs ??Mild elevation in LFTs from baseline, stable ?? Plan: ??-monitor??lft??periodically ??-hold atorvastatin since mild worsening AST/ALT ? Schizophrenia/mood disorder ?Polysubstance use disorder (alcohol/cocaine/opiates) ?No focal abnormalities and AAOx3 and following commands. No signs of alcohol withdrawal at present ?? Plan: ??-Continue home olanzapine 20 mg daily ??-Continue home thiamine ? Quality: ??Code: Full ??VTE prophylaxis: Apixaban ??Diet: Cardiac Diet, With fluid restriction ??Dispo: Inpatient rehab until strong enough to go home w/ PT, going to nieces. ?? Updated niece Paz by phone this afternoon. Comfortable with DC to her home July 25 as long as patient can ambulate to bathroom and manage toileting himself. Explained that he may go to S3 DC unit prior to DC. She is recovering from COVID herself and asked if patient can be wheeled to the [facility] for discharge. ? Discharge Planning:? Portable XR Chest Views * [facility] , CIS S: TRANSCRIBE Gavino Servin MD: VERIFY Event Display: Result: Authored Date: [id number] Chest Portable Hx of Present Illness: Fever and lethargy. Rule out pneumonia. COMPARISON: 06/23/2022 FINDINGS: Quite rotated to the right. LINES AND TUBES: None. LUNGS AND PLEURA: Focal consolidation right lower lobe. Otherwise clear lungs. No edema of the left lung. Probable small right pleural effusion. No pneumothorax. HEART, MEDIASTINUM AND ADELE: Unchanged without convincing abnormality accounting for rightward rotation. BONES AND SOFT TISSUES: No acute abnormality. IMPRESSION: Right lower lobe pneumonia. WSN: [id number] Ordering Physician: Judd Patel Dictated By: Gavino Servin MD Dictated Date/Time: 07/13/22 9:23 pm Reviewed By: Gavino Servin MD Signed By: Gavino Servin MD Signed Date/Time: 07/13/22 9:23 pm Transcribed By: GRANT Transcribed Date/Time: 07/13/22 9:22 pm Patient Care team information Care Team [...] Care Nurse Name: Chele Weaver RN Position: S RN Member Role: Primary Care Nurse Name: Zakia Dinero RN Position: S RN Member Role: Primary Care Nurse Name: eTmitope Alva RN Position: S RN Member Role: Primary Care Nurse Name: Dorinda Forrester RN Position: S RN Member Role: Primary Care Nurse Name: Jose Feliz Position: [facility] RN Member Role: Primary Care Nurse Name: Lia Levin RN Position: [facility] RN Member Role: Primary Care Nurse Name: Araceli Dixon RN Position: [facility] RN Member Role: Primary Care Nurse Name: Silvina Baird RN Position: [facility] RN Supv Member Role: Primary Care Nurse Name: Yosef Barahona RN Position: [facility] RN Member Role: Primary Care Nurse Name: Dasia Lopez Position: [facility] RN Supv Member Role: Primary Care Nurse Name: Yosef Meadows RN Position: [facility] RN Member Role: Primary Care Nurse Name: Catie Moreira Position: [facility] RN Member Role: Primary Care Nurse Name: Susanna Vaca RN Position: [facility] RN Supv Member Role: Primary Care Nurse Name: Catie Becerra RN Position: [facility] RN Member Role: Primary Care Nurse Name: Steven Chicas RN Position: [facility] RN Member Role: Primary Care Nurse Name: Not on Staff, PCP Position: [facility] Physician (General Medicine) Member Role: PCP Name: Brett Del Angel RN Position: [facility] RN Member Role: Primary Care Nurse Name: Blair Fisher MD Position: [facility] Renal MD Member Role: Lifetime Consulting Physician Address: Address: [address] [place] [address] [facility] Name: Jose Dickinson RN Position: [facility] RN Member Role: Primary Care Nurse Name: Tiana Trent RN Position: [facility] RN Member Role: Primary Care Nurse Name: Zoltan Bush MD Position: [facility] Renal MD Member Role: [employer] Consulting Physician Address: Address: [address] [place] [address] [facility] [address] Name: Christin Daniel RN Position: [facility] RN Member Role: Primary Care Nurse Name: Lizz Adams RN Position: [facility] RN Member Role: Primary Care Nurse Name: Abdifatah Norman RN Position: [facility] RN Member Role: Primary Care Nurse Name: Elysia Cueva RN Position: [facility] RN Member Role: Primary Care Nurse Name: Dayna Shirley RN Position: [facility] RN Member Role: Primary Care Nurse Name: Jaci Zelaya RN Position: [facility] Hospital Mixing Plant Operator Member Role: Primary Care Nurse Name: Ezra Mckeon RN Position: [facility] RN Member Role: Primary Care Nurse Name: KaylaSincere Eason Attending Position: [facility] ED Medicine MD Name: Josi Pappas Position: [facility] ED OA Charge Member Role: ED Associate Name: Donte Barraza Position: [facility] ED TA [facility] Name: Megan Madrigal RN Position: [facility] ED RN W/OE and Tasks Member Role: Patient Care Provider Care Team Related Persons Name: PAZ LU Address: home [address] [place] [address] KENDRA ROTHMAN [id number]
[2023-02-02 22:08] VITALS: BP 158/82; PULSE 90; RESP 20; TEMP 36.2; O2SAT 97
--- NOTE | 2023-02-02 22:43 | PC.ADMIT ---
Addendum entered by Lev Lambert RN 02/03/23 05:49: Pt would like to talk to doctor about getting something different than Seroquel. pt denies SI, HI, AH or VH Original Note: Pt arrived on unit on 02/02/2023 at 1950 via stretcher, and signed a CV, He is A&O(4), 67yo male who recently had a medication change from Olanzapine to Seroquel. Pt reports he has not been doing well with the change. Diagnoses: Schizophrenia, Bilat Cataracts, Hyperlipidemia, HTN, COPD with emphysema, CAD, Hyponatremia, Paroxysmal afib, Heart Failure with reduced ejection fraction. Former Tobacco use 5 months ago, Former ETOH and crack use 5 months ago. Pt reports insomnia, Pt says he will take his medications as prescribed, orientated to unit, 5-min checks
[2023-02-02 23:27] VITALS: BMI 27.2
[2023-02-03] MEDS: traZODone HCL 50 MG TABLET PO ×4 (01:09→22:35)
[2023-02-03] MEDS: hydrOXYzine HCL 25 MG TABLET PO ×2 (01:09→20:37)
[2023-02-03] MEDS: Albuterol Sulfate 90 MCG 8 GM INHALER 2 PUFF INHALE (02:21)
[2023-02-03 08:15] VITALS: BP 117/70; PULSE 86; RESP 16; TEMP 36.6; O2SAT 96
[2023-02-03] MEDS: Nicotine 7 MG PATCH.TD24 TRANSDERMA (08:24)
[2023-02-03] MEDS: Folic Acid 1 MG TABLET PO (08:25)
[2023-02-03] MEDS: Apixaban 5 MG TABLET PO ×2 (08:25→20:36)
[2023-02-03] MEDS: carvediloL 3.125 MG TABLET PO ×2 (08:25→20:36)
[2023-02-03] MEDS: Sacubitril/Valsartan 24/26 1 TAB TABLET PO ×2 (08:25→20:35)
[2023-02-03] MEDS: Thiamine HCL 100 MG TABLET PO (08:25)
[2023-02-03] MEDS: Furosemide 20 MG TABLET PO (08:25)
[2023-02-03] MEDS: Multivitamin TABLET 1 TAB PO (08:25)
[2023-02-03] MEDS: Omeprazole 40 MG CAPSULE.DR PO (08:25)
[2023-02-03] MEDS: Aspirin 81 MG TAB.CHEW PO (08:25)
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
[2023-02-03 18:00] VITALS: BP 129/65; PULSE 72; RESP 16; TEMP 36.9; O2SAT 100
[2023-02-03] MEDS: Atorvastatin Calcium 40 MG TABLET PO (20:36)
[2023-02-03] MEDS: Lurasidone HCl 20 MG TABLET PO (22:34)
[2023-02-04] MEDS: Acetaminophen 325 MG TABLET 650 MG PO (00:07)
[2023-02-04 08:00] VITALS: BP 82/54; PULSE 63; RESP 16; TEMP 36.8; O2SAT 99
[2023-02-04 08:14] LABS: Alanine Aminotransferase 10 U/L (0-40); Albumin Level 3.6 g/dL (3.5-5.0); Alkaline Phosphatase 115 U/L (39-117); Anion Gap 13 (12-20); Aspartate Amino Transferase 18 U/L (5-37); Blood Urea Nitrogen 17 mg/dL (9-16); Calcium 9.1 mg/dL (8.4-10.2); Carbon Dioxide 23 mmol/L (22-29); Chloride 99 mmol/L (96-108); Cholesterol 101 mg/dL (<200); Creatinine Clr Calc Pharmacy 104.5; Estimated Glomerular Filt Rate > 60; Glucose Fasting 93 mg/dL (60-99); HDL Cholesterol 39 mg/dL (>40); LDL Cholesterol Calculated 54 mg/dL (<100); Sodium 131 mmol/L (135-145); Total Protein 6.9 g/dL (6.5-8.0); Triglycerides 43 mg/dL (<150)
[2023-02-04] MEDS: Apixaban 5 MG TABLET PO ×2 (08:35→21:19)
[2023-02-04] MEDS: Folic Acid 1 MG TABLET PO (08:36)
[2023-02-04] MEDS: Thiamine HCL 100 MG TABLET PO (08:36)
[2023-02-04] MEDS: Multivitamin TABLET 1 TAB PO (08:36)
[2023-02-04] MEDS: Aspirin 81 MG TAB.CHEW PO (08:36)
[2023-02-04] MEDS: Nicotine 7 MG PATCH.TD24 TRANSDERMA (08:37)
[2023-02-04] MEDS: Omeprazole 40 MG CAPSULE.DR PO (08:37)
[2023-02-04] MEDS: Milk of Magnesia 30 ML ORAL.SUSP PO (09:00)
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
[2023-02-04 18:00] VITALS: BP 139/65; PULSE 84; RESP 16; TEMP 35.8; O2SAT 96
[2023-02-04] MEDS: hydrOXYzine HCL 25 MG TABLET PO (21:18)
[2023-02-04] MEDS: Sacubitril/Valsartan 24/26 1 TAB TABLET PO (21:19)
[2023-02-04] MEDS: carvediloL 3.125 MG TABLET PO (21:19)
[2023-02-04] MEDS: Atorvastatin Calcium 40 MG TABLET PO (21:19)
[2023-02-04] MEDS: LORazepam 1 MG TABLET PO (21:20)
[2023-02-04] MEDS: Lurasidone HCl 20 MG TABLET PO (21:20)
[2023-02-05] MEDS: Omeprazole 40 MG CAPSULE.DR PO (06:46)
[2023-02-05 08:00] VITALS: BP 101/52; PULSE 70; RESP 18; TEMP 36.4; O2SAT 94
[2023-02-05] MEDS: Nicotine 7 MG PATCH.TD24 TRANSDERMA (09:10)
[2023-02-05] MEDS: Apixaban 5 MG TABLET PO ×2 (09:10→20:38)
[2023-02-05] MEDS: Folic Acid 1 MG TABLET PO (09:11)
[2023-02-05] MEDS: Thiamine HCL 100 MG TABLET PO (09:11)
[2023-02-05] MEDS: Multivitamin TABLET 1 TAB PO (09:11)
[2023-02-05] MEDS: Aspirin 81 MG TAB.CHEW PO (09:20)
--- NOTE | 2023-02-05 14:17 | P.PNPSI_ITS ---
Subjective Subjective Date of Service: 02/05/23 Reason For Visit: n/a Interim History: Slept much better last night. Endorsed feeling irritable. Adamantly denies delusions or hallucinations. Feels safe. No med concerns. Eating well. Medication Compliance: Yes Side effects from medications: No Attending Groups: Intermittent Review of Systems Acute medical concerns: No Review of Systems: BP low (asymptomatic) Review of Systems Review of Systems Unremarkable Mental Status Exam Mental Status Exam Narrative: pleasant. Engaged. Fairly presented. Organized. Slightly irritable today. Denied depression SI or HI. No overt psychosis noted. Insight and judgment fair Diagnostics Vital Signs (24Hr): Vital Signs - 24 hr 02/04/23 18:00 02/05/23 08:00 Temperature 96.5 F L 97.5 F Pulse Rate 84 70 Respiratory Rate 16 18 Blood Pressure 139/65 101/52 L Pulse Oximetry 96 94 Oxygen Delivery Method Room Air Room Air BMI result Body Mass Index 27.2 Labs 02/04/23 07:50 Labs: Laboratory Results - last 48 hr 02/04/23 07:50 Sodium 131 L Potassium 4.0 Chloride 99 Carbon Dioxide 23 Anion Gap 13 BUN 17 H Creatinine 0.73 Estim Creat Clear Calc 104.5 Estimated GFR > 60 Fasting Glucose 93 Calcium 9.1 Total Bilirubin 1.0 AST 18 ALT 10 Alkaline Phosphatase 115 Total Protein 6.9 Albumin 3.6 Triglycerides 43 Cholesterol 101 LDL Cholesterol, Calc 54 HDL Cholesterol 39 L Medications Medications Current Medications Acetaminophen (Acetaminophen 325 Mg Tablet) 650 mg PO Q6H PRN PRN Reason: Headache/Pain Mild Scale (1-3) Last Admin: 02/04/23 00:07 Dose: 650 mg Al Hydroxide/Mg Hydroxide (Magnesium Hydrox/Alum Hydrox 30 Ml Oral.Susp) 30 ml PO Q6H PRN PRN Reason: Heartburn/Nausea Albuterol Sulfate (Albuterol Sulfate 90 Mcg 8 Gm Inhaler) 2 puff INHALE RQ4H PRN PRN Reason: bronchospasm Last Admin: 02/03/23 02:21 Dose: 2 puff Apixaban (Apixaban 5 Mg Tablet) 5 mg PO BID [facility] Last Admin: 02/05/23 09:10 Dose: 5 mg Aspirin (Aspirin 81 Mg Tab.Chew) 81 mg PO DAILY [facility] Last Admin: 02/05/23 09:20 Dose: 81 mg Atorvastatin Calcium (Atorvastatin Calcium 40 Mg Tablet) 40 mg PO BEDTIME [facility] Last Admin: 02/04/23 21:19 Dose: 40 mg Carvedilol (Carvedilol 3.125 Mg Tablet) 3.125 mg PO BID [facility]; Protocol Last Admin: 02/05/23 09:17 Dose: Not Given Folic Acid (Folic Acid 1 Mg Tablet) 1 mg PO DAILY [facility] Last Admin: 02/05/23 09:11 Dose: 1 mg Furosemide (Furosemide 20 Mg Tablet) 20 mg PO DAILY [facility]; Protocol Last Admin: 02/05/23 09:17 Dose: Not Given Hydroxyzine HCl (Hydroxyzine Hcl 25 Mg Tablet) 25 mg PO Q6H PRN PRN Reason: Anxiety Last Admin: 02/04/23 21:18 Dose: 25 mg Lurasidone HCl (Lurasidone Hcl 20 Mg Tablet) 20 mg PO BEDTIME [facility] Last Admin: 02/04/23 21:20 Dose: 20 mg Magnesium Hydroxide (Milk Of Magnesia 30 Ml Oral.Susp) 30 ml PO DAILY PRN PRN Reason: Constipation Last Admin: 02/04/23 09:00 Dose: 30 ml Multivitamins/Vitamin C (Multivitamin Tablet) 1 tab PO DAILY [facility] Last Admin: 02/05/23 09:11 Dose: 1 tab Nicotine (Nicotine 7 Mg Patch.Td24) 7 mg TRANSDERMA DAILY [facility] Last Admin: 02/05/23 09:10 Dose: 7 mg Omeprazole (Omeprazole 40 Mg Capsule.Dr) 40 mg PO DAILY@0630 [facility] Last Admin: 02/05/23 06:46 Dose: 40 mg Sacubitril/Valsartan (Sacubitril/Valsartan 1 Tab Tablet) 1 tab PO BID [facility]; Protocol Last Admin: 02/05/23 09:17 Dose: Not Given Thiamine HCl (Thiamine Hcl 100 Mg Tablet) 100 mg PO DAILY [facility] Last Admin: 02/05/23 09:11 Dose: 100 mg Trazodone HCl (Trazodone Hcl 50 Mg Tablet) 50 mg PO BEDTIME PRN PRN Reason: sleep Allergies Allergies Allergy/AdvReac Type Severity Reaction Status Date / Time No Known Allergies Allergy Verified 12/21/22 16:25 Assessment & Plan Assessment & Plan (1) Schizophrenia: Status: Acute Code(s): F20.9 - Schizophrenia, unspecified (2) Routine medical exam: Status: Acute Code(s): Z00.00 - Encounter for general adult medical examination without abnormal findings (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): Status: Acute Code(s): E22.2 - Syndrome of inappropriate secretion of antidiuretic hormone (4) Paroxysmal atrial fibrillation: Status: Acute Code(s): I48.0 - Paroxysmal atrial fibrillation (5) Hyperlipidemia: Status: Acute Code(s): E78.5 - Hyperlipidemia, unspecified (6) COPD (chronic obstructive pulmonary disease): Status: Acute Code(s): J44.9 - Chronic obstructive pulmonary disease, unspecified (7) Hypertension: Status: Acute Code(s): I10 - Essential (primary) hypertension (8) Heart failure: Status: Acute Code(s): I50.9 - Heart failure, unspecified Plan The patient is an elderly male with a past history of schizophrenia who was fairly stable for more than 20 years of Zyprexa but unfortunately he developed syndrome of inappropriate secretion of ADH and olanzapine needed to be discontinue. He had a trial of Seroquel with poor symptoms and currently he reports psychotic symptoms and he is willing to follow treatment. Plan 1. Gather collateral information. We will try to contact his family. 2. We discussed risks, benefits, side-effects and alternatives and the patient agreed to the have a trial of Latuda 20 mg p.o. q.h.s. to target psychosis. 3. Discontinue Seroquel 150 p.o. q.h.s.. 4. Continue with medical workout. 5. We will do a new EKG after the weekend after initial trial of the to the 20 mg. The patient has several medical comorbidities that could be worsened and while at to the. He had metabolic syndrome in the past with Zyprexa. 6. Reassessment results. 02/05: no changes Reason for continued inpatient stay Substantial Risk for: inability to function Time Spent With Patient Time: Total time managing care of this patient today ____ minutes.
[2023-02-05 18:00] VITALS: BP 112/68; PULSE 84; RESP 18; TEMP 36.7; O2SAT 98
[2023-02-05] MEDS: Atorvastatin Calcium 40 MG TABLET PO (20:38)
[2023-02-05] MEDS: traZODone HCL 50 MG TABLET PO ×2 (20:38→23:35)
[2023-02-05] MEDS: Lurasidone HCl 20 MG TABLET PO (20:38)
[2023-02-05] MEDS: carvediloL 3.125 MG TABLET PO (20:38)
[2023-02-05] MEDS: Sacubitril/Valsartan 24/26 1 TAB TABLET PO (20:38)
[2023-02-05] MEDS: hydrOXYzine HCL 25 MG TABLET PO (22:00)
[2023-02-05] MEDS: Albuterol Sulfate 90 MCG 8 GM INHALER 2 PUFF INHALE (22:00)
--- NOTE | 2023-02-06 | ECG_ITS ---
Test Reason : qtc check Blood Pressure : / mmHG Vent. Rate : 072 BPM Atrial Rate : 250 BPM P-R Int : 000 ms QRS Dur : 114 ms QT Int : 426 ms P-R-T Axes : 000 063 028 degrees QTc Int : 466 ms Atrial flutter with variable A-V block Intra-ventricular conduction delay Abnormal ECG No previous ECGs available Referred By: He Garcia Electronically Signed By:RONNELL TERRY MD
[2023-02-06] MEDS: Omeprazole 40 MG CAPSULE.DR PO (06:05)
[2023-02-06 07:40] VITALS: BP 107/52; PULSE 62; RESP 16; TEMP 36.7; O2SAT 98
[2023-02-06] MEDS: Thiamine HCL 100 MG TABLET PO (10:53)
[2023-02-06] MEDS: Multivitamin TABLET 1 TAB PO (10:54)
[2023-02-06] MEDS: Aspirin 81 MG TAB.CHEW PO (10:54)
[2023-02-06] MEDS: Folic Acid 1 MG TABLET PO (10:54)
[2023-02-06] MEDS: Apixaban 5 MG TABLET PO ×2 (10:54→21:35)
[2023-02-06 13:13] VITALS: BP 139/70; PULSE 81
--- NOTE | 2023-02-06 13:13 | PC.NURSE ---
THIS NURSE CONTACTED DR. BENEDICT VIA [employer] RE: OT.'S VS THIS MORNING. PT IS ON SEVERAL CARDIAC MEDICATIONS AND THREE CARDIAC MEDS WERE HELD THIS MORNING D/T SOFT BP AND LOWER HEART RATE. THIS NURSE RECHECKED BP AND PULSE JUST NOW, AND THE VS ARE BACK UP. THIS NURSE REACHED OUT TO PROVIDER AGAIN, VIA [employer] AND ASKED IF HE WOULD LIKE FOR HER TO PASS THE MEDICATIONS AT THIS POINT. PROVIDERS ANSWER PENDING.
[2023-02-06] MEDS: LORazepam 1 MG TABLET 2 MG PO (13:20)
[2023-02-06] MEDS: HaloperidoL 5 MG TABLET PO (13:20)
[2023-02-06] MEDS: diphenhydrAMINE HCL 25 MG CAPSULE 50 MG PO (13:21)
[2023-02-06] MEDS: Albuterol Sulfate 90 MCG 8 GM INHALER 2 PUFF INHALE (13:52)
--- NOTE | 2023-02-06 13:58 | PC.NURSE ---
PT CAME TO NURSES STATION AND REQUESTED ALBUTEROL INHALER. THIS NURSE PROVIDED A DOSE AND MEASURED O2 SAT, WHICH WAS 97%. PT DENIED ANY ADDITONAL SOB.
--- NOTE | 2023-02-06 14:08 | HO.PSYCHPN ---
Subjective Subjective Date of Service: 02/06/23 Reason For Visit: n/a Subjective Notes: Conditional Voluntary Interim History: The nursing staff reported the patient denies suicidal ideation he slept well. He had been sexually inappropriate with some staff. Today in the morning he had an argument with another peer and we needed to medicating with Haldol 5 mg p.o. q.a.m., Ativan 2 mg. And Benadryl 50 p.o. On interview the patient denies new symptoms, denies side effects with Latuda 20 mg qhs,. He agreed to increase up to 40 mg po qhs. I called his niece but she couldn't pick it up Today his EKG showed AV block and I called the hospitalist and apparently it is chronic. Mental Status Exam Mental Status Exam Patient Appearance: Appropriate Patient Orientation: Person Level of Consciousness: Awake and Appropriate Patient Behavior: Guarded and Passive Mood Description: Withdrawn Affect Description: Constricted Patient Cognition Impaired: Yes Ability to Follow Directions: Good Speech Pattern: Clear Hallucinations: None Delusions: Paranoid Ideation Thought Process: Distracted Thought Content: positive for [place] and positive for Circumstantial Judgement: Fair Diagnostics Vital Signs (24Hr): Vital Signs - 24 hr 02/05/23 18:00 02/06/23 07:40 02/06/23 13:13 Temperature 98.0 F 98.1 F Pulse Rate 84 62 81 Respiratory Rate 18 16 Blood Pressure 112/68 107/52 L 139/70 Pulse Oximetry 98 98 Oxygen Delivery Method Room Air Room Air BMI result Body Mass Index 27.2 Labs 02/04/23 07:50 Medications Medications Current Medications Acetaminophen (Acetaminophen 325 Mg Tablet) 650 mg PO Q6H PRN PRN Reason: Headache/Pain Mild Scale (1-3) Last Admin: 02/04/23 00:07 Dose: 650 mg Al Hydroxide/Mg Hydroxide (Magnesium Hydrox/Alum Hydrox 30 Ml Oral.Susp) 30 ml PO Q6H PRN PRN Reason: Heartburn/Nausea Albuterol Sulfate (Albuterol Sulfate 90 Mcg 8 Gm Inhaler) 2 puff INHALE RQ4H PRN PRN Reason: bronchospasm Last Admin: 02/06/23 13:52 Dose: 2 puff Apixaban (Apixaban 5 Mg Tablet) 5 mg PO BID [facility] Last Admin: 02/06/23 10:54 Dose: 5 mg Aspirin (Aspirin 81 Mg Tab.Chew) 81 mg PO DAILY [facility] Last Admin: 02/06/23 10:54 Dose: 81 mg Atorvastatin Calcium (Atorvastatin Calcium 40 Mg Tablet) 40 mg PO BEDTIME [facility] Last Admin: 02/05/23 20:38 Dose: 40 mg Carvedilol (Carvedilol 3.125 Mg Tablet) 3.125 mg PO BID [facility]; Protocol Last Admin: 02/05/23 20:38 Dose: 3.125 mg Folic Acid (Folic Acid 1 Mg Tablet) 1 mg PO DAILY [facility] Last Admin: 02/06/23 10:54 Dose: 1 mg Furosemide (Furosemide 20 Mg Tablet) 20 mg PO DAILY [facility]; Protocol Last Admin: 02/05/23 09:17 Dose: Not Given Hydroxyzine HCl (Hydroxyzine Hcl 25 Mg Tablet) 25 mg PO Q6H PRN PRN Reason: Anxiety Last Admin: 02/05/23 22:00 Dose: 25 mg Lurasidone HCl (Lurasidone Hcl 20 Mg Tablet) 20 mg PO BEDTIME [facility] Last Admin: 02/05/23 20:38 Dose: 20 mg Magnesium Hydroxide (Milk Of Magnesia 30 Ml Oral.Susp) 30 ml PO DAILY PRN PRN Reason: Constipation Last Admin: 02/04/23 09:00 Dose: 30 ml Multivitamins/Vitamin C (Multivitamin Tablet) 1 tab PO DAILY [facility] Last Admin: 02/06/23 10:54 Dose: 1 tab Nicotine (Nicotine 7 Mg Patch.Td24) 7 mg TRANSDERMA DAILY [facility] Last Admin: 02/05/23 09:10 Dose: 7 mg Omeprazole (Omeprazole 40 Mg Capsule.Dr) 40 mg PO DAILY@0630 [facility] Last Admin: 02/06/23 06:05 Dose: 40 mg Sacubitril/Valsartan (Sacubitril/Valsartan 1 Tab Tablet) 1 tab PO BID [facility]; Protocol Last Admin: 02/05/23 20:38 Dose: 1 tab Thiamine HCl (Thiamine Hcl 100 Mg Tablet) 100 mg PO DAILY [facility] Last Admin: 02/06/23 10:53 Dose: 100 mg Trazodone HCl (Trazodone Hcl 50 Mg Tablet) 50 mg PO BEDTIME PRN PRN Reason: sleep Last Admin: 02/05/23 20:38 Dose: 50 mg Allergies Allergies Allergy/AdvReac Type Severity Reaction Status Date / Time No Known Allergies Allergy Verified 12/21/22 16:25 Assessment & Plan Assessment & Plan (1) Schizophrenia: Status: Acute Code(s): F20.9 - Schizophrenia, unspecified (2) Routine medical exam: Status: Acute Code(s): Z00.00 - Encounter for general adult medical examination without abnormal findings (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): Status: Acute Code(s): E22.2 - Syndrome of inappropriate secretion of antidiuretic hormone (4) Paroxysmal atrial fibrillation: Status: Acute Code(s): I48.0 - Paroxysmal atrial fibrillation (5) Hyperlipidemia: Status: Acute Code(s): E78.5 - Hyperlipidemia, unspecified (6) COPD (chronic obstructive pulmonary disease): Status: Acute Code(s): J44.9 - Chronic obstructive pulmonary disease, unspecified (7) Hypertension: Status: Acute Code(s): I10 - Essential (primary) hypertension (8) Heart failure: Status: Acute Code(s): I50.9 - Heart failure, unspecified Plan The patient is an elderly male with a past history of schizophrenia who was fairly stable for more than 20 years of Zyprexa but unfortunately he developed syndrome of inappropriate secretion of ADH and olanzapine needed to be discontinue. He had a trial of Seroquel with poor symptoms and currently he reports psychotic symptoms and he is willing to follow treatment. Plan 1. Gather collateral information. We will try to contact his family. 2. We discussed risks, benefits, side-effects and alternatives and the patient agreed to the have a trial of Latuda 20 mg p.o. q.h.s. to target psychosis. 3. Discontinue Seroquel 150 p.o. q.h.s.. 4. Continue with medical workout. 5. We will do a new EKG after the weekend after initial trial of the to the 20 mg. The patient has several medical comorbidities that could be worsened and while at to the. He had metabolic syndrome in the past with Zyprexa. 6. Reassessment results. 7. Hospitalist consult after EKG.. 8. Increase Latuda up to 40 mg po qhs on Feb 06. Reason for continued inpatient stay Substantial Risk for: inability to function, rapid decompensation and med/psych decompensation Time Spent With Patient Time: Total time managing care of this patient today __20__ minutes.
[2023-02-06] MEDS: Atorvastatin Calcium 40 MG TABLET PO (21:34)
[2023-02-06] MEDS: Sacubitril/Valsartan 24/26 1 TAB TABLET PO (21:34)
[2023-02-06] MEDS: carvediloL 3.125 MG TABLET PO (21:35)
[2023-02-06] MEDS: traZODone HCL 50 MG TABLET PO (21:35)
[2023-02-06] MEDS: Lurasidone HCl 40 MG TABLET PO (21:35)
[2023-02-07] MEDS: Omeprazole 40 MG CAPSULE.DR PO (06:36)
[2023-02-07 08:00] VITALS: BP 121/74; PULSE 86; RESP 18; TEMP 36.4; O2SAT 94
[2023-02-07] MEDS: Nicotine 7 MG PATCH.TD24 TRANSDERMA (08:08)
[2023-02-07] MEDS: Sacubitril/Valsartan 24/26 1 TAB TABLET PO ×2 (08:10→20:44)
[2023-02-07] MEDS: Thiamine HCL 100 MG TABLET PO (08:10)
[2023-02-07] MEDS: Multivitamin TABLET 1 TAB PO (08:10)
[2023-02-07] MEDS: Apixaban 5 MG TABLET PO ×2 (08:11→20:44)
[2023-02-07] MEDS: carvediloL 3.125 MG TABLET PO ×2 (08:11→20:45)
[2023-02-07] MEDS: Aspirin 81 MG TAB.CHEW PO (08:11)
[2023-02-07] MEDS: Furosemide 20 MG TABLET PO (08:11)
[2023-02-07] MEDS: Folic Acid 1 MG TABLET PO (08:11)
[2023-02-07] MEDS: Acetaminophen 325 MG TABLET 650 MG PO (09:43)
[2023-02-07] MEDS: hydrOXYzine HCL 25 MG TABLET PO ×2 (10:07→20:44)
[2023-02-07] MEDS: Albuterol Sulfate 90 MCG 8 GM INHALER 2 PUFF INHALE ×2 (11:56→20:54)
--- NOTE | 2023-02-07 13:40 | HO.PSYCHPN ---
Subjective Subjective Date of Service: 02/07/23 Reason For Visit: n/a Subjective Notes: Conditional Voluntary Interim History: The nursing staff reported the patient had been sexually inappropriate with some staff and needed to be redirected. The social media sr strategy manager reported that spoke with [facility] and apparently he needs to be referred to Psychiatry. On interview, the patient denies auditory hallucinations and his main concern is irritability and anger. He denies side effects with Latuda 40 mg last night and he agreed increase up to 60 mg. He wants to get a med adjustment as soon as possible. Mental Status Exam Mental Status Exam Patient Appearance: Well Grooomed Patient Orientation: Person and Situation Level of Consciousness: Awake and Appropriate Patient Behavior: Guarded and Passive Mood Description: Withdrawn Affect Description: Constricted Patient Cognition Impaired: Yes Ability to Follow Directions: Good Speech Pattern: Clear Hallucinations: None Delusions: Paranoid Ideation Thought Process: Distracted and Slowed Thinking Thought Content: positive for [place] and positive for Poverty of Content Judgement: Fair Diagnostics Vital Signs (24Hr): Vital Signs - 24 hr 02/07/23 08:00 Temperature 97.6 F Pulse Rate 86 Respiratory Rate 18 Blood Pressure 121/74 Pulse Oximetry 94 Oxygen Delivery Method Room Air BMI result Body Mass Index 27.2 Labs 02/04/23 07:50 Medications Medications Current Medications Acetaminophen (Acetaminophen 325 Mg Tablet) 650 mg PO Q6H PRN PRN Reason: Headache/Pain Mild Scale (1-3) Last Admin: 02/07/23 09:43 Dose: 650 mg Al Hydroxide/Mg Hydroxide (Magnesium Hydrox/Alum Hydrox 30 Ml Oral.Susp) 30 ml PO Q6H PRN PRN Reason: Heartburn/Nausea Albuterol Sulfate (Albuterol Sulfate 90 Mcg 8 Gm Inhaler) 2 puff INHALE RQ4H PRN PRN Reason: bronchospasm Last Admin: 02/07/23 11:56 Dose: 2 puff Apixaban (Apixaban 5 Mg Tablet) 5 mg PO BID [facility] Last Admin: 02/07/23 08:11 Dose: 5 mg Aspirin (Aspirin 81 Mg Tab.Chew) 81 mg PO DAILY [facility] Last Admin: 02/07/23 08:11 Dose: 81 mg Atorvastatin Calcium (Atorvastatin Calcium 40 Mg Tablet) 40 mg PO BEDTIME [facility] Last Admin: 02/06/23 21:34 Dose: 40 mg Carvedilol (Carvedilol 3.125 Mg Tablet) 3.125 mg PO BID [facility]; Protocol Last Admin: 02/07/23 08:11 Dose: 3.125 mg Folic Acid (Folic Acid 1 Mg Tablet) 1 mg PO DAILY [facility] Last Admin: 02/07/23 08:11 Dose: 1 mg Furosemide (Furosemide 20 Mg Tablet) 20 mg PO DAILY [facility]; Protocol Last Admin: 02/07/23 08:11 Dose: 20 mg Hydroxyzine HCl (Hydroxyzine Hcl 25 Mg Tablet) 25 mg PO Q6H PRN PRN Reason: Anxiety Last Admin: 02/07/23 10:07 Dose: 25 mg Lurasidone HCl (Lurasidone Hcl 40 Mg Tablet) 40 mg PO BEDTIME [facility] Last Admin: 02/06/23 21:35 Dose: 40 mg Magnesium Hydroxide (Milk Of Magnesia 30 Ml Oral.Susp) 30 ml PO DAILY PRN PRN Reason: Constipation Last Admin: 02/04/23 09:00 Dose: 30 ml Multivitamins/Vitamin C (Multivitamin Tablet) 1 tab PO DAILY [facility] Last Admin: 02/07/23 08:10 Dose: 1 tab Nicotine (Nicotine 7 Mg Patch.Td24) 7 mg TRANSDERMA DAILY [facility] Last Admin: 02/07/23 08:08 Dose: 7 mg Omeprazole (Omeprazole 40 Mg Capsule.Dr) 40 mg PO DAILY@0630 [facility] Last Admin: 02/07/23 06:36 Dose: 40 mg Sacubitril/Valsartan (Sacubitril/Valsartan 1 Tab Tablet) 1 tab PO BID [facility]; Protocol Last Admin: 02/07/23 08:10 Dose: 1 tab Thiamine HCl (Thiamine Hcl 100 Mg Tablet) 100 mg PO DAILY [facility] Last Admin: 02/07/23 08:10 Dose: 100 mg Trazodone HCl (Trazodone Hcl 50 Mg Tablet) 50 mg PO BEDTIME PRN PRN Reason: sleep Last Admin: 02/06/23 21:35 Dose: 50 mg Allergies Allergies Allergy/AdvReac Type Severity Reaction Status Date / Time No Known Allergies Allergy Verified 12/21/22 16:25 Assessment & Plan Assessment & Plan (1) Schizophrenia: Status: Acute Code(s): F20.9 - Schizophrenia, unspecified (2) Routine medical exam: Status: Acute Code(s): Z00.00 - Encounter for general adult medical examination without abnormal findings (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): Status: Acute Code(s): E22.2 - Syndrome of inappropriate secretion of antidiuretic hormone (4) Paroxysmal atrial fibrillation: Status: Acute Code(s): I48.0 - Paroxysmal atrial fibrillation (5) Hyperlipidemia: Status: Acute Code(s): E78.5 - Hyperlipidemia, unspecified (6) COPD (chronic obstructive pulmonary disease): Status: Acute Code(s): J44.9 - Chronic obstructive pulmonary disease, unspecified (7) Hypertension: Status: Acute Code(s): I10 - Essential (primary) hypertension (8) Heart failure: Status: Acute Code(s): I50.9 - Heart failure, unspecified Plan The patient is an elderly male with a past history of schizophrenia who was fairly stable for more than 20 years of Zyprexa but unfortunately he developed syndrome of inappropriate secretion of ADH and olanzapine needed to be discontinue. He had a trial of Seroquel with poor symptoms and currently he reports psychotic symptoms and he is willing to follow treatment. Plan 1. Gather collateral information. We will try to contact his family. 2. We discussed risks, benefits, side-effects and alternatives and the patient agreed to the have a trial of Latuda 20 mg p.o. q.h.s. to target psychosis. 3. Discontinue Seroquel 150 p.o. q.h.s.. 4. Continue with medical workout. 5. We will do a new EKG after the weekend after initial trial of the to the 20 mg. The patient has several medical comorbidities that could be worsened and while at to the. He had metabolic syndrome in the past with Zyprexa. 6. Reassessment results. 7. Hospitalist consult after EKG.. 8. Increase Latuda up to 40 mg po qhs on Feb 06. February 07 we increased up to 60 mg p.o. q.h.s. Reason for continued inpatient stay Substantial Risk for: inability to function, rapid decompensation and med/psych decompensation Time Spent With Patient Time: Total time managing care of this patient today __20__ minutes.
[2023-02-07 18:00] VITALS: BP 134/76; PULSE 86; RESP 18; TEMP 36.3; O2SAT 97
[2023-02-07] MEDS: Lurasidone HCl 20 MG TABLET 60 MG PO (20:44)
[2023-02-07] MEDS: Atorvastatin Calcium 40 MG TABLET PO (20:45)
[2023-02-07] MEDS: traZODone HCL 50 MG TABLET PO (20:45)
[2023-02-08 06:00] VITALS: BP 129/58; PULSE 78; RESP 16; TEMP 36.1; O2SAT 97
[2023-02-08] MEDS: Omeprazole 40 MG CAPSULE.DR PO (06:18)
[2023-02-08] MEDS: hydrOXYzine HCL 25 MG TABLET PO ×2 (06:42→22:37)
[2023-02-08] MEDS: Albuterol Sulfate 90 MCG 8 GM INHALER 2 PUFF INHALE ×2 (06:43→18:41)
--- NOTE | 2023-02-08 07:52 | HO.PSYCHPN ---
Subjective Subjective Date of Service: 02/08/23 Reason For Visit: n/a Subjective Notes: Conditional Voluntary Interim History: The nursing staff reported the patient slept 6 hours, he had been fully compliant with treatment. The occupational therapist reported that in the morning he refused to go to group since he was watching TV. On interview the patient denies side effects with the to the 60 mg p.o. q.h.s., denies auditory or visual hallucinations no evidence of EPS at this moment. He admitted some depressive symptoms and historically, he did well with Zoloft, we discussed options and agreed to restart. Mental Status Exam Mental Status Exam Patient Appearance: Appropriate Patient Orientation: Person and Situation Level of Consciousness: Awake and Appropriate Patient Behavior: Guarded and Passive Mood Description: Withdrawn Affect Description: Constricted Patient Cognition Impaired: Yes Ability to Follow Directions: Good Speech Pattern: Clear Hallucinations: None Delusions: Ideas of Reference Thought Process: Distracted and Slowed Thinking Thought Content: positive for [place] and positive for Poverty of Content Judgement: Poor Diagnostics Vital Signs (24Hr): Vital Signs - 24 hr 02/07/23 08:00 02/07/23 18:00 02/08/23 06:00 Temperature 97.6 F 97.3 F 97.0 F Pulse Rate 86 86 78 Respiratory Rate 18 18 16 Blood Pressure 121/74 134/76 129/58 L Pulse Oximetry 94 97 97 Oxygen Delivery Method Room Air Room Air Room Air BMI result Body Mass Index 27.2 Labs 02/04/23 07:50 Medications Medications Current Medications Acetaminophen (Acetaminophen 325 Mg Tablet) 650 mg PO Q6H PRN PRN Reason: Headache/Pain Mild Scale (1-3) Last Admin: 02/07/23 09:43 Dose: 650 mg Al Hydroxide/Mg Hydroxide (Magnesium Hydrox/Alum Hydrox 30 Ml Oral.Susp) 30 ml PO Q6H PRN PRN Reason: Heartburn/Nausea Albuterol Sulfate (Albuterol Sulfate 90 Mcg 8 Gm Inhaler) 2 puff INHALE RQ4H PRN PRN Reason: bronchospasm Last Admin: 02/08/23 06:43 Dose: 2 puff Apixaban (Apixaban 5 Mg Tablet) 5 mg PO BID [facility] Last Admin: 02/07/23 20:44 Dose: 5 mg Aspirin (Aspirin 81 Mg Tab.Chew) 81 mg PO DAILY [facility] Last Admin: 02/07/23 08:11 Dose: 81 mg Atorvastatin Calcium (Atorvastatin Calcium 40 Mg Tablet) 40 mg PO BEDTIME [facility] Last Admin: 02/07/23 20:45 Dose: 40 mg Carvedilol (Carvedilol 3.125 Mg Tablet) 3.125 mg PO BID [facility]; Protocol Last Admin: 02/07/23 20:45 Dose: 3.125 mg Folic Acid (Folic Acid 1 Mg Tablet) 1 mg PO DAILY [facility] Last Admin: 02/07/23 08:11 Dose: 1 mg Furosemide (Furosemide 20 Mg Tablet) 20 mg PO DAILY [facility]; Protocol Last Admin: 02/07/23 08:11 Dose: 20 mg Hydroxyzine HCl (Hydroxyzine Hcl 25 Mg Tablet) 25 mg PO Q6H PRN PRN Reason: Anxiety Last Admin: 02/08/23 06:42 Dose: 25 mg Lurasidone HCl (Lurasidone Hcl 20 Mg Tablet) 60 mg PO BEDTIME [facility] Last Admin: 02/07/23 20:44 Dose: 60 mg Magnesium Hydroxide (Milk Of Magnesia 30 Ml Oral.Susp) 30 ml PO DAILY PRN PRN Reason: Constipation Last Admin: 02/04/23 09:00 Dose: 30 ml Multivitamins/Vitamin C (Multivitamin Tablet) 1 tab PO DAILY [facility] Last Admin: 02/07/23 08:10 Dose: 1 tab Nicotine (Nicotine 7 Mg Patch.Td24) 7 mg TRANSDERMA DAILY [facility] Last Admin: 02/07/23 08:08 Dose: 7 mg Omeprazole (Omeprazole 40 Mg Capsule.Dr) 40 mg PO DAILY@0630 [facility] Last Admin: 02/08/23 06:18 Dose: 40 mg Sacubitril/Valsartan (Sacubitril/Valsartan 1 Tab Tablet) 1 tab PO BID [facility]; Protocol Last Admin: 02/07/23 20:44 Dose: 1 tab Thiamine HCl (Thiamine Hcl 100 Mg Tablet) 100 mg PO DAILY [facility] Last Admin: 02/07/23 08:10 Dose: 100 mg Trazodone HCl (Trazodone Hcl 50 Mg Tablet) 50 mg PO BEDTIME PRN PRN Reason: sleep Last Admin: 02/07/23 20:45 Dose: 50 mg Allergies Allergies Allergy/AdvReac Type Severity Reaction Status Date / Time No Known Allergies Allergy Verified 12/21/22 16:25 Assessment & Plan Assessment & Plan (1) Schizophrenia: Status: Acute Code(s): F20.9 - Schizophrenia, unspecified (2) Routine medical exam: Status: Acute Code(s): Z00.00 - Encounter for general adult medical examination without abnormal findings (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): Status: Acute Code(s): E22.2 - Syndrome of inappropriate secretion of antidiuretic hormone (4) Paroxysmal atrial fibrillation: Status: Acute Code(s): I48.0 - Paroxysmal atrial fibrillation (5) Hyperlipidemia: Status: Acute Code(s): E78.5 - Hyperlipidemia, unspecified (6) COPD (chronic obstructive pulmonary disease): Status: Acute Code(s): J44.9 - Chronic obstructive pulmonary disease, unspecified (7) Hypertension: Status: Acute Code(s): I10 - Essential (primary) hypertension (8) Heart failure: Status: Acute Code(s): I50.9 - Heart failure, unspecified Plan The patient is an elderly male with a past history of schizophrenia who was fairly stable for more than 20 years of Zyprexa but unfortunately he developed syndrome of inappropriate secretion of ADH and olanzapine needed to be discontinue. He had a trial of Seroquel with poor symptoms and currently he reports psychotic symptoms and he is willing to follow treatment. Plan 1. Gather collateral information. We will try to contact his family. 2. We discussed risks, benefits, side-effects and alternatives and the patient agreed to the have a trial of Latuda 20 mg p.o. q.h.s. to target psychosis. 3. Discontinue Seroquel 150 p.o. q.h.s.. 4. Continue with medical workout. 5. We will do a new EKG after the weekend after initial trial of the to the 20 mg. The patient has several medical comorbidities that could be worsened and while at to the. He had metabolic syndrome in the past with Zyprexa. 6. Reassessment results. 7. Hospitalist consult after EKG.. 8. Increase Latuda up to 40 mg po qhs on Feb 06. February 07 we increased up to 60 mg p.o. q.h.s. no evidence of over-sedation, EPS or any other side effects at this moment. 9. Start Zoloft 25 mg po daily. Reason for continued inpatient stay Substantial Risk for: inability to function, rapid decompensation and med/psych decompensation Time Spent With Patient Time: Total time managing care of this patient today __20__ minutes.
[2023-02-08] MEDS: Nicotine 7 MG PATCH.TD24 TRANSDERMA (08:21)
[2023-02-08] MEDS: Sacubitril/Valsartan 24/26 1 TAB TABLET PO ×2 (08:22→20:46)
[2023-02-08] MEDS: carvediloL 3.125 MG TABLET PO ×2 (08:22→20:45)
[2023-02-08] MEDS: Folic Acid 1 MG TABLET PO (08:22)
[2023-02-08] MEDS: Apixaban 5 MG TABLET PO ×2 (08:22→20:45)
[2023-02-08] MEDS: Thiamine HCL 100 MG TABLET PO (08:22)
[2023-02-08] MEDS: Furosemide 20 MG TABLET PO (08:22)
[2023-02-08] MEDS: Multivitamin TABLET 1 TAB PO (08:22)
[2023-02-08] MEDS: Aspirin 81 MG TAB.CHEW PO (08:22)
[2023-02-08] MEDS: Sertraline HCL 25 MG TABLET PO (09:47)
[2023-02-08 18:00] VITALS: BP 123/66; PULSE 83; RESP 16; O2SAT 93
[2023-02-08] MEDS: Atorvastatin Calcium 40 MG TABLET PO (20:44)
[2023-02-08] MEDS: traZODone HCL 50 MG TABLET PO ×2 (20:45→22:37)
[2023-02-08] MEDS: Lurasidone HCl 20 MG TABLET 60 MG PO (20:46)
[2023-02-08] MEDS: Acetaminophen 325 MG TABLET 650 MG PO (20:48)
[2023-02-09] MEDS: Omeprazole 40 MG CAPSULE.DR PO (06:54)
[2023-02-09 07:00] VITALS: BMI 27.9
[2023-02-09 08:09] VITALS: BP 110/76; PULSE 81; RESP 16; TEMP 36.4; O2SAT 97
[2023-02-09] MEDS: Furosemide 20 MG TABLET PO (08:12)
[2023-02-09] MEDS: Aspirin 81 MG TAB.CHEW PO (08:12)
[2023-02-09] MEDS: Sacubitril/Valsartan 24/26 1 TAB TABLET PO ×2 (08:12→20:19)
[2023-02-09] MEDS: Folic Acid 1 MG TABLET PO (08:12)
[2023-02-09] MEDS: Apixaban 5 MG TABLET PO ×2 (08:12→20:19)
[2023-02-09] MEDS: carvediloL 3.125 MG TABLET PO ×2 (08:12→20:19)
[2023-02-09] MEDS: Sertraline HCL 25 MG TABLET PO (08:12)
[2023-02-09] MEDS: Thiamine HCL 100 MG TABLET PO (08:12)
[2023-02-09] MEDS: Nicotine 7 MG PATCH.TD24 TRANSDERMA (08:12)
[2023-02-09] MEDS: Multivitamin TABLET 1 TAB PO (08:17)
--- NOTE | 2023-02-09 14:08 | P.PNPSI_ITS ---
Subjective Subjective Date of Service: 02/09/23 Reason For Visit: n/a Subjective Notes: Conditional Voluntary Interim History: The nursing staff reported the patient has been isolative, obsessed about the abnormalities of his EKG that they are chronic. He denies suicidal or missile ideation he had been compliant with treatment. On interview the patient denies side effects with Latuda 60 but also no improvement. Yesterday we have a long conversation with her relative and explained the treatment plan and she was in agreement on that. Mental Status Exam Mental Status Exam Patient Appearance: Appropriate Patient Orientation: Person and Situation Level of Consciousness: Awake and Appropriate Patient Behavior: Guarded and Passive Mood Description: Appropriate Affect Description: Calm and Labile Patient Cognition Impaired: No Ability to Follow Directions: Good Speech Pattern: Clear Hallucinations: None Delusions: Ideas of Reference Thought Process: Distracted and Linear Thought Content: positive for [place] and positive for Poverty of Content Judgement: Fair Diagnostics Vital Signs (24Hr): Vital Signs - 24 hr 02/08/23 18:00 02/09/23 08:09 Temperature 97.6 F Pulse Rate 83 81 Respiratory Rate 16 16 Blood Pressure 123/66 110/76 Pulse Oximetry 93 97 Oxygen Delivery Method Room Air Room Air BMI result Body Mass Index 27.9 Labs 02/04/23 07:50 Medications Medications Current Medications Acetaminophen (Acetaminophen 325 Mg Tablet) 650 mg PO Q6H PRN PRN Reason: Headache/Pain Mild Scale (1-3) Last Admin: 02/08/23 20:48 Dose: 650 mg Al Hydroxide/Mg Hydroxide (Magnesium Hydrox/Alum Hydrox 30 Ml Oral.Susp) 30 ml PO Q6H PRN PRN Reason: Heartburn/Nausea Albuterol Sulfate (Albuterol Sulfate 90 Mcg 8 Gm Inhaler) 2 puff INHALE RQ4H PRN PRN Reason: bronchospasm Last Admin: 02/08/23 18:41 Dose: 2 puff Apixaban (Apixaban 5 Mg Tablet) 5 mg PO BID [facility] Last Admin: 02/09/23 08:12 Dose: 5 mg Aspirin (Aspirin 81 Mg Tab.Chew) 81 mg PO DAILY [facility] Last Admin: 02/09/23 08:12 Dose: 81 mg Atorvastatin Calcium (Atorvastatin Calcium 40 Mg Tablet) 40 mg PO BEDTIME [facility] Last Admin: 02/08/23 20:44 Dose: 40 mg Carvedilol (Carvedilol 3.125 Mg Tablet) 3.125 mg PO BID [facility]; Protocol Last Admin: 02/09/23 08:12 Dose: 3.125 mg Folic Acid (Folic Acid 1 Mg Tablet) 1 mg PO DAILY [facility] Last Admin: 02/09/23 08:12 Dose: 1 mg Furosemide (Furosemide 20 Mg Tablet) 20 mg PO DAILY [facility]; Protocol Last Admin: 02/09/23 08:12 Dose: 20 mg Hydroxyzine HCl (Hydroxyzine Hcl 25 Mg Tablet) 25 mg PO Q6H PRN PRN Reason: Anxiety Last Admin: 02/08/23 22:37 Dose: 25 mg Lurasidone HCl (Lurasidone Hcl 20 Mg Tablet) 60 mg PO BEDTIME [facility] Last Admin: 02/08/23 20:46 Dose: 60 mg Magnesium Hydroxide (Milk Of Magnesia 30 Ml Oral.Susp) 30 ml PO DAILY PRN PRN Reason: Constipation Last Admin: 02/04/23 09:00 Dose: 30 ml Multivitamins/Vitamin C (Multivitamin Tablet) 1 tab PO DAILY [facility] Last Admin: 02/09/23 08:17 Dose: 1 tab Nicotine (Nicotine 7 Mg Patch.Td24) 7 mg TRANSDERMA DAILY [facility] Last Admin: 02/09/23 08:12 Dose: 7 mg Omeprazole (Omeprazole 40 Mg Capsule.Dr) 40 mg PO DAILY@0630 [facility] Last Admin: 02/09/23 06:54 Dose: 40 mg Sacubitril/Valsartan (Sacubitril/Valsartan 1 Tab Tablet) 1 tab PO BID [facility]; Protocol Last Admin: 02/09/23 08:12 Dose: 1 tab Sertraline HCl (Sertraline Hcl 25 Mg Tablet) 25 mg PO DAILY [facility] Last Admin: 02/09/23 08:12 Dose: 25 mg Thiamine HCl (Thiamine Hcl 100 Mg Tablet) 100 mg PO DAILY [facility] Last Admin: 02/09/23 08:12 Dose: 100 mg Trazodone HCl (Trazodone Hcl 50 Mg Tablet) 50 mg PO BEDTIME PRN PRN Reason: sleep Last Admin: 02/08/23 22:37 Dose: 50 mg Allergies Allergies Allergy/AdvReac Type Severity Reaction Status Date / Time No Known Allergies Allergy Verified 12/21/22 16:25 Assessment & Plan Assessment & Plan (1) Schizophrenia: Status: Acute Code(s): F20.9 - Schizophrenia, unspecified (2) Routine medical exam: Status: Acute Code(s): Z00.00 - Encounter for general adult medical examination without abnormal findings (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): Status: Acute Code(s): E22.2 - Syndrome of inappropriate secretion of antidiuretic hormone (4) Paroxysmal atrial fibrillation: Status: Acute Code(s): I48.0 - Paroxysmal atrial fibrillation (5) Hyperlipidemia: Status: Acute Code(s): E78.5 - Hyperlipidemia, unspecified (6) COPD (chronic obstructive pulmonary disease): Status: Acute Code(s): J44.9 - Chronic obstructive pulmonary disease, unspecified (7) Hypertension: Status: Acute Code(s): I10 - Essential (primary) hypertension (8) Heart failure: Status: Acute Code(s): I50.9 - Heart failure, unspecified Plan The patient is an elderly male with a past history of schizophrenia who was fairly stable for more than 20 years of Zyprexa but unfortunately he developed syndrome of inappropriate secretion of ADH and olanzapine needed to be discontinue. He had a trial of Seroquel with poor symptoms and currently he reports psychotic symptoms and he is willing to follow treatment. Plan 1. Gather collateral information. We will try to contact his family. 2. We discussed risks, benefits, side-effects and alternatives and the patient agreed to the have a trial of Latuda 20 mg p.o. q.h.s. to target psychosis. 3. Discontinue Seroquel 150 p.o. q.h.s.. 4. Continue with medical workout. 5. We will do a new EKG after the weekend after initial trial of the to the 20 mg. The patient has several medical comorbidities that could be worsened and while at to the. He had metabolic syndrome in the past with Zyprexa. 6. Reassessment results. 7. Hospitalist consult after EKG.. 8. Increase Latuda up to 40 mg po qhs on Feb 06. February 07 we increased up to 60 mg p.o. q.h.s. no evidence of over-sedation, EPS or any other side effects at this moment. On Feb 09 we are increasing up to 80 mg po qhs. 9. Start Zoloft 25 mg po daily. Reason for continued inpatient stay Substantial Risk for: inability to function, rapid decompensation and med/psych decompensation Time Spent With Patient Time: Total time managing care of this patient today __20__ minutes.
[2023-02-09 19:40] VITALS: BP 119/68; PULSE 72; RESP 16; TEMP 36.4; O2SAT 98
[2023-02-09] MEDS: Atorvastatin Calcium 40 MG TABLET PO (20:18)
[2023-02-09] MEDS: Albuterol Sulfate 90 MCG 8 GM INHALER 2 PUFF INHALE (20:18)
[2023-02-09] MEDS: Lurasidone HCl 80 MG TABLET PO (20:19)
[2023-02-09] MEDS: traZODone HCL 50 MG TABLET PO (20:19)
[2023-02-10] MEDS: Omeprazole 40 MG CAPSULE.DR PO (06:15)
[2023-02-10 08:04] VITALS: BP 109/55; PULSE 88; RESP 16; TEMP 36.4; O2SAT 96
[2023-02-10] MEDS: Multivitamin TABLET 1 TAB PO (08:08)
[2023-02-10] MEDS: Sacubitril/Valsartan 24/26 1 TAB TABLET PO ×2 (08:08→20:12)
[2023-02-10] MEDS: Nicotine 7 MG PATCH.TD24 TRANSDERMA (08:08)
[2023-02-10] MEDS: Sertraline HCL 25 MG TABLET PO (08:08)
[2023-02-10] MEDS: Furosemide 20 MG TABLET PO (08:08)
[2023-02-10] MEDS: Aspirin 81 MG TAB.CHEW PO (08:08)
[2023-02-10] MEDS: Folic Acid 1 MG TABLET PO (08:08)
[2023-02-10] MEDS: Thiamine HCL 100 MG TABLET PO (08:08)
[2023-02-10] MEDS: carvediloL 3.125 MG TABLET PO ×2 (08:08→20:13)
[2023-02-10] MEDS: Apixaban 5 MG TABLET PO ×2 (08:08→20:12)
[2023-02-10] MEDS: Sertraline HCL 50 MG TABLET PO (10:44)
--- NOTE | 2023-02-10 12:53 | HO.PSYCHPN ---
Subjective Subjective Date of Service: 02/10/23 Reason For Visit: n/a Subjective Notes: Conditional Voluntary Interim History: The nursing staff reported that it has been isolative to his room quiet, with flat affect. Engaging with staff at times. He slept well last night. On interview the patient denies side effects with Latuda 80 mg, still dysphoric so he agreed increase all of up to 50 mg daily. So far his psychotic symptoms are not evident at this moment. Mental Status Exam Mental Status Exam Patient Appearance: Well Grooomed and Appropriate Patient Orientation: Person and Situation Level of Consciousness: Awake and Appropriate Patient Behavior: Guarded and Passive Mood Description: Withdrawn Affect Description: Constricted Patient Cognition Impaired: Yes Ability to Follow Directions: Good Speech Pattern: Clear Hallucinations: None Delusions: Ideas of Reference Thought Process: Distracted and Slowed Thinking Thought Content: positive for [place] and positive for Poverty of Content Judgement: Fair Diagnostics Vital Signs (24Hr): Vital Signs - 24 hr 02/09/23 19:40 02/10/23 08:04 Temperature 97.5 F 97.5 F Pulse Rate 72 88 Respiratory Rate 16 16 Blood Pressure 119/68 109/55 L Pulse Oximetry 98 96 Oxygen Delivery Method Room Air Room Air BMI result Body Mass Index 27.9 Labs 02/04/23 07:50 Medications Medications Current Medications Acetaminophen (Acetaminophen 325 Mg Tablet) 650 mg PO Q6H PRN PRN Reason: Headache/Pain Mild Scale (1-3) Last Admin: 02/08/23 20:48 Dose: 650 mg Al Hydroxide/Mg Hydroxide (Magnesium Hydrox/Alum Hydrox 30 Ml Oral.Susp) 30 ml PO Q6H PRN PRN Reason: Heartburn/Nausea Albuterol Sulfate (Albuterol Sulfate 90 Mcg 8 Gm Inhaler) 2 puff INHALE RQ4H PRN PRN Reason: bronchospasm Last Admin: 02/09/23 20:18 Dose: 2 puff Apixaban (Apixaban 5 Mg Tablet) 5 mg PO BID [facility] Last Admin: 02/10/23 08:08 Dose: 5 mg Aspirin (Aspirin 81 Mg Tab.Chew) 81 mg PO DAILY [facility] Last Admin: 02/10/23 08:08 Dose: 81 mg Atorvastatin Calcium (Atorvastatin Calcium 40 Mg Tablet) 40 mg PO BEDTIME [facility] Last Admin: 02/09/23 20:18 Dose: 40 mg Carvedilol (Carvedilol 3.125 Mg Tablet) 3.125 mg PO BID [facility]; Protocol Last Admin: 02/10/23 08:08 Dose: 3.125 mg Folic Acid (Folic Acid 1 Mg Tablet) 1 mg PO DAILY [facility] Last Admin: 02/10/23 08:08 Dose: 1 mg Furosemide (Furosemide 20 Mg Tablet) 20 mg PO DAILY [facility]; Protocol Last Admin: 02/10/23 08:08 Dose: 20 mg Hydroxyzine HCl (Hydroxyzine Hcl 25 Mg Tablet) 25 mg PO Q6H PRN PRN Reason: Anxiety Last Admin: 02/08/23 22:37 Dose: 25 mg Lurasidone HCl (Lurasidone Hcl 80 Mg Tablet) 80 mg PO BEDTIME [facility] Last Admin: 02/09/23 20:19 Dose: 80 mg Magnesium Hydroxide (Milk Of Magnesia 30 Ml Oral.Susp) 30 ml PO DAILY PRN PRN Reason: Constipation Last Admin: 02/04/23 09:00 Dose: 30 ml Multivitamins/Vitamin C (Multivitamin Tablet) 1 tab PO DAILY [facility] Last Admin: 02/10/23 08:08 Dose: 1 tab Nicotine (Nicotine 7 Mg Patch.Td24) 7 mg TRANSDERMA DAILY [facility] Last Admin: 02/10/23 08:08 Dose: 7 mg Omeprazole (Omeprazole 40 Mg Capsule.Dr) 40 mg PO DAILY@0630 [facility] Last Admin: 02/10/23 06:15 Dose: 40 mg Sacubitril/Valsartan (Sacubitril/Valsartan 1 Tab Tablet) 1 tab PO BID [facility]; Protocol Last Admin: 02/10/23 08:08 Dose: 1 tab Sertraline HCl (Sertraline Hcl 50 Mg Tablet) 50 mg PO DAILY [facility] Last Admin: 02/10/23 10:44 Dose: 25 mg Thiamine HCl (Thiamine Hcl 100 Mg Tablet) 100 mg PO DAILY [facility] Last Admin: 02/10/23 08:08 Dose: 100 mg Trazodone HCl (Trazodone Hcl 50 Mg Tablet) 50 mg PO BEDTIME PRN PRN Reason: sleep Last Admin: 02/09/23 20:19 Dose: 50 mg Allergies Allergies Allergy/AdvReac Type Severity Reaction Status Date / Time No Known Allergies Allergy Verified 12/21/22 16:25 Assessment & Plan Assessment & Plan (1) Schizophrenia: Status: Acute Code(s): F20.9 - Schizophrenia, unspecified (2) Routine medical exam: Status: Acute Code(s): Z00.00 - Encounter for general adult medical examination without abnormal findings (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): Status: Acute Code(s): E22.2 - Syndrome of inappropriate secretion of antidiuretic hormone (4) Paroxysmal atrial fibrillation: Status: Acute Code(s): I48.0 - Paroxysmal atrial fibrillation (5) Hyperlipidemia: Status: Acute Code(s): E78.5 - Hyperlipidemia, unspecified (6) COPD (chronic obstructive pulmonary disease): Status: Acute Code(s): J44.9 - Chronic obstructive pulmonary disease, unspecified (7) Hypertension: Status: Acute Code(s): I10 - Essential (primary) hypertension (8) Heart failure: Status: Acute Code(s): I50.9 - Heart failure, unspecified Plan The patient is an elderly male with a past history of schizophrenia who was fairly stable for more than 20 years of Zyprexa but unfortunately he developed syndrome of inappropriate secretion of ADH and olanzapine needed to be discontinue. He had a trial of Seroquel with poor symptoms and currently he reports psychotic symptoms and he is willing to follow treatment. Plan 1. Gather collateral information. We will try to contact his family. 2. We discussed risks, benefits, side-effects and alternatives and the patient agreed to the have a trial of Latuda 20 mg p.o. q.h.s. to target psychosis. 3. Discontinue Seroquel 150 p.o. q.h.s.. 4. Continue with medical workout. 5. We will do a new EKG after the weekend after initial trial of the to the 20 mg. The patient has several medical comorbidities that could be worsened and while at to the. He had metabolic syndrome in the past with Zyprexa. 6. Reassessment results. 7. Hospitalist consult after EKG.. 8. Increase Latuda up to 40 mg po qhs on Feb 06. February 07 we increased up to 60 mg p.o. q.h.s. no evidence of over-sedation, EPS or any other side effects at this moment. On Feb 09 we are increasing up to 80 mg po qhs. 9. Start Zoloft 25 mg po daily, increased up to 50 mg p.o. daily on February 10. Reason for continued inpatient stay Substantial Risk for: inability to function, rapid decompensation and med/psych decompensation Time Spent With Patient Time: Total time managing care of this patient today ___20_ minutes.
[2023-02-10] MEDS: Albuterol Sulfate 90 MCG 8 GM INHALER 2 PUFF INHALE (17:41)
[2023-02-10 18:00] VITALS: BP 137/61; PULSE 70; RESP 18; TEMP 36.7; O2SAT 95
[2023-02-10] MEDS: Lurasidone HCl 80 MG TABLET PO (20:12)
[2023-02-10] MEDS: Atorvastatin Calcium 40 MG TABLET PO (20:12)
[2023-02-10] MEDS: traZODone HCL 50 MG TABLET PO (20:13)
[2023-02-10] MEDS: hydrOXYzine HCL 25 MG TABLET PO (20:13)
[2023-02-11] MEDS: Omeprazole 40 MG CAPSULE.DR PO (06:07)
[2023-02-11 07:44] VITALS: BP 113/69; PULSE 84; RESP 18; TEMP 36.3; O2SAT 97
[2023-02-11] MEDS: Furosemide 20 MG TABLET PO (07:57)
[2023-02-11] MEDS: Acetaminophen 325 MG TABLET 650 MG PO ×3 (07:57→20:37)
[2023-02-11] MEDS: Apixaban 5 MG TABLET PO ×2 (07:57→20:36)
[2023-02-11] MEDS: Multivitamin TABLET 1 TAB PO (07:57)
[2023-02-11] MEDS: Thiamine HCL 100 MG TABLET PO (07:57)
[2023-02-11] MEDS: Sertraline HCL 50 MG TABLET PO (07:58)
[2023-02-11] MEDS: Aspirin 81 MG TAB.CHEW PO (07:58)
[2023-02-11] MEDS: Sacubitril/Valsartan 24/26 1 TAB TABLET PO ×2 (07:58→20:36)
[2023-02-11] MEDS: carvediloL 3.125 MG TABLET PO ×2 (07:58→20:36)
[2023-02-11] MEDS: Folic Acid 1 MG TABLET PO (07:58)
[2023-02-11] MEDS: hydrOXYzine HCL 25 MG TABLET PO ×2 (07:58→20:36)
[2023-02-11] MEDS: Nicotine 7 MG PATCH.TD24 TRANSDERMA (08:01)
[2023-02-11] MEDS: Albuterol Sulfate 90 MCG 8 GM INHALER 2 PUFF INHALE ×3 (08:31→20:38)
[2023-02-11 18:00] VITALS: BP 120/61; PULSE 64; RESP 18; TEMP 36.4; O2SAT 99
[2023-02-11] MEDS: Lurasidone HCl 80 MG TABLET PO (20:36)
[2023-02-11] MEDS: Atorvastatin Calcium 40 MG TABLET PO (20:36)
[2023-02-11] MEDS: traZODone HCL 50 MG TABLET PO (20:36)
--- NOTE | 2023-02-12 00:15 | HO.PSYCHPN ---
Subjective Subjective Date of Service: 02/11/23 Reason For Visit: n/a Subjective Notes: Conditional Voluntary Interim History: The nursing staff reported that it has been isolative to his room quiet, with flat affect. Patient remains depressed withdrawn complains of depressive symptoms and insomnia asking for increase in sertraline Medication Compliance: Yes Mental Status Exam Mental Status Exam Patient Appearance: Well Grooomed and Appropriate Patient Orientation: Person and Situation Level of Consciousness: Awake and Appropriate Patient Behavior: Guarded and Passive Mood Description: Withdrawn, Depressed and Flat Affect Description: Constricted Patient Cognition Impaired: Yes Ability to Follow Directions: Good Speech Pattern: Clear Hallucinations: None Delusions: Ideas of Reference Thought Process: Distracted and Slowed Thinking Thought Content: positive for [place] and positive for Poverty of Content Judgement: Fair Diagnostics Vital Signs (24Hr): Vital Signs - 24 hr 02/11/23 07:44 02/11/23 18:00 Temperature 97.3 F 97.6 F Pulse Rate 84 64 Respiratory Rate 18 18 Blood Pressure 113/69 120/61 Pulse Oximetry 97 99 Oxygen Delivery Method Room Air Room Air BMI result Body Mass Index 27.9 Labs 02/04/23 07:50 Medications Medications Current Medications Acetaminophen (Acetaminophen 325 Mg Tablet) 650 mg PO Q6H PRN PRN Reason: Headache/Pain Mild Scale (1-3) Last Admin: 02/11/23 20:37 Dose: 650 mg Al Hydroxide/Mg Hydroxide (Magnesium Hydrox/Alum Hydrox 30 Ml Oral.Susp) 30 ml PO Q6H PRN PRN Reason: Heartburn/Nausea Albuterol Sulfate (Albuterol Sulfate 90 Mcg 8 Gm Inhaler) 2 puff INHALE RQ4H PRN PRN Reason: bronchospasm Last Admin: 02/11/23 20:38 Dose: 2 puff Apixaban (Apixaban 5 Mg Tablet) 5 mg PO BID [facility] Last Admin: 02/11/23 20:36 Dose: 5 mg Aspirin (Aspirin 81 Mg Tab.Chew) 81 mg PO DAILY [facility] Last Admin: 02/11/23 07:58 Dose: 81 mg Atorvastatin Calcium (Atorvastatin Calcium 40 Mg Tablet) 40 mg PO BEDTIME [facility] Last Admin: 02/11/23 20:36 Dose: 40 mg Carvedilol (Carvedilol 3.125 Mg Tablet) 3.125 mg PO BID [facility]; Protocol Last Admin: 02/11/23 20:36 Dose: 3.125 mg Folic Acid (Folic Acid 1 Mg Tablet) 1 mg PO DAILY [facility] Last Admin: 02/11/23 07:58 Dose: 1 mg Furosemide (Furosemide 20 Mg Tablet) 20 mg PO DAILY [facility]; Protocol Last Admin: 02/11/23 07:57 Dose: 20 mg Hydroxyzine HCl (Hydroxyzine Hcl 25 Mg Tablet) 25 mg PO Q6H PRN PRN Reason: Anxiety Last Admin: 02/11/23 20:36 Dose: 25 mg Lurasidone HCl (Lurasidone Hcl 80 Mg Tablet) 80 mg PO BEDTIME [facility] Last Admin: 02/11/23 20:36 Dose: 80 mg Magnesium Hydroxide (Milk Of Magnesia 30 Ml Oral.Susp) 30 ml PO DAILY PRN PRN Reason: Constipation Last Admin: 02/04/23 09:00 Dose: 30 ml Multivitamins/Vitamin C (Multivitamin Tablet) 1 tab PO DAILY [facility] Last Admin: 02/11/23 07:57 Dose: 1 tab Nicotine (Nicotine 7 Mg Patch.Td24) 7 mg TRANSDERMA DAILY [facility] Last Admin: 02/11/23 08:01 Dose: 7 mg Omeprazole (Omeprazole 40 Mg Capsule.Dr) 40 mg PO DAILY@0630 [facility] Last Admin: 02/11/23 06:07 Dose: 40 mg Sacubitril/Valsartan (Sacubitril/Valsartan 1 Tab Tablet) 1 tab PO BID [facility]; Protocol Last Admin: 02/11/23 20:36 Dose: 1 tab Sertraline HCl (Sertraline Hcl 50 Mg Tablet) 50 mg PO DAILY [facility] Last Admin: 02/11/23 07:58 Dose: 50 mg Thiamine HCl (Thiamine Hcl 100 Mg Tablet) 100 mg PO DAILY [facility] Last Admin: 02/11/23 07:57 Dose: 100 mg Trazodone HCl (Trazodone Hcl 50 Mg Tablet) 50 mg PO BEDTIME PRN PRN Reason: sleep Last Admin: 02/11/23 20:36 Dose: 50 mg Allergies Allergies Allergy/AdvReac Type Severity Reaction Status Date / Time No Known Allergies Allergy Verified 12/21/22 16:25 Assessment & Plan Assessment & Plan (1) Schizophrenia: Status: Acute Code(s): F20.9 - Schizophrenia, unspecified (2) Routine medical exam: Status: Acute Code(s): Z00.00 - Encounter for general adult medical examination without abnormal findings (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): Status: Acute Code(s): E22.2 - Syndrome of inappropriate secretion of antidiuretic hormone (4) Paroxysmal atrial fibrillation: Status: Acute Code(s): I48.0 - Paroxysmal atrial fibrillation (5) Hyperlipidemia: Status: Acute Code(s): E78.5 - Hyperlipidemia, unspecified (6) COPD (chronic obstructive pulmonary disease): Status: Acute Code(s): J44.9 - Chronic obstructive pulmonary disease, unspecified (7) Hypertension: Status: Acute Code(s): I10 - Essential (primary) hypertension (8) Heart failure: Status: Acute Code(s): I50.9 - Heart failure, unspecified Plan The patient is an elderly male with a past history of schizophrenia who was fairly stable for more than 20 years of Zyprexa but unfortunately he developed syndrome of inappropriate secretion of ADH and olanzapine needed to be discontinue. He had a trial of Seroquel with poor symptoms and currently he reports psychotic symptoms and he is willing to follow treatment. Plan 1. Gather collateral information. We will try to contact his family. 2. We discussed risks, benefits, side-effects and alternatives and the patient agreed to the have a trial of Latuda 20 mg p.o. q.h.s. to target psychosis. 3. Discontinue Seroquel 150 p.o. q.h.s.. 4. Continue with medical workout. 5. We will do a new EKG after the weekend after initial trial of the to the 20 mg. The patient has several medical comorbidities that could be worsened and while at to the. He had metabolic syndrome in the past with Zyprexa. 6. Reassessment results. 7. Hospitalist consult after EKG.. 8. Increase Latuda up to 40 mg po qhs on Feb 06. February 07 we increased up to 60 mg p.o. q.h.s. no evidence of over-sedation, EPS or any other side effects at this moment. On Feb 09 we are increasing up to 80 mg po qhs. 9. Start Zoloft 25 mg po daily, increased up to 50 mg p.o. daily on February 10. 02/11/2023 Increase sertraline monitor response Patient educated on: diagnosis and medication risk/benefits Informed Consent: further education needed Reason for continued inpatient stay Substantial Risk for: inability to function and rapid decompensation Time Spent With Patient Time: Total time managing care of this patient today ____ minutes.
[2023-02-12] MEDS: traZODone HCL 50 MG TABLET PO (00:38)
[2023-02-12] MEDS: Omeprazole 40 MG CAPSULE.DR PO (06:24)
[2023-02-12 08:00] VITALS: BP 124/78; PULSE 77; RESP 18; TEMP 37.1; O2SAT 98
[2023-02-12] MEDS: Albuterol Sulfate 90 MCG 8 GM INHALER 2 PUFF INHALE (08:21)
[2023-02-12] MEDS: Folic Acid 1 MG TABLET PO (08:30)
[2023-02-12] MEDS: Sacubitril/Valsartan 24/26 1 TAB TABLET PO ×2 (08:30→20:41)
[2023-02-12] MEDS: Furosemide 20 MG TABLET PO (08:30)
[2023-02-12] MEDS: Multivitamin TABLET 1 TAB PO (08:30)
[2023-02-12] MEDS: Apixaban 5 MG TABLET PO ×2 (08:30→20:41)
[2023-02-12] MEDS: carvediloL 3.125 MG TABLET PO ×2 (08:30→20:40)
[2023-02-12] MEDS: Thiamine HCL 100 MG TABLET PO (08:30)
[2023-02-12] MEDS: Aspirin 81 MG TAB.CHEW PO (08:32)
[2023-02-12] MEDS: Sertraline HCL 25 MG TABLET 75 MG PO (08:32)
[2023-02-12] MEDS: Nicotine 7 MG PATCH.TD24 TRANSDERMA (08:33)
[2023-02-12] MEDS: Acetaminophen 325 MG TABLET 650 MG PO (14:48)
[2023-02-12] MEDS: Milk of Magnesia 30 ML ORAL.SUSP PO (16:11)
[2023-02-12 19:45] VITALS: BP 139/75; PULSE 78; RESP 18; TEMP 36.6; O2SAT 99
[2023-02-12] MEDS: Atorvastatin Calcium 40 MG TABLET PO (20:41)
[2023-02-12] MEDS: Lurasidone HCl 80 MG TABLET PO (20:41)
--- NOTE | 2023-02-12 23:57 | P.PNPSI_ITS ---
Subjective Subjective Date of Service: 02/11/23 Reason For Visit: depressed Subjective Notes: Conditional Voluntary Interim History: The nursing staff reported that it has been isolative to his room quiet, with flat affect. Patient remains depressed withdrawn complains of depressive symptoms and insomnia asking for increase in sertraline he is social in the milieu Medication Compliance: Yes Mental Status Exam Mental Status Exam Patient Appearance: Well Grooomed and Appropriate Patient Orientation: Person and Situation Level of Consciousness: Awake and Appropriate Patient Behavior: Guarded, Passive and Fatigued Mood Description: Withdrawn Affect Description: Constricted and Blunted Patient Cognition Impaired: Yes Ability to Follow Directions: Good Speech Pattern: Clear Hallucinations: None Delusions: Ideas of Reference Thought Process: Distracted and Slowed Thinking Thought Content: positive for [place] and positive for Poverty of Content Judgement: Fair Diagnostics Vital Signs (24Hr): Vital Signs - 24 hr 02/12/23 08:00 02/12/23 19:45 Temperature 98.7 F 97.8 F Pulse Rate 77 78 Respiratory Rate 18 18 Blood Pressure 124/78 139/75 Pulse Oximetry 98 99 Oxygen Delivery Method Room Air Room Air BMI result Body Mass Index 27.9 Labs 02/04/23 07:50 Medications Medications Current Medications Acetaminophen (Acetaminophen 325 Mg Tablet) 650 mg PO Q6H PRN PRN Reason: Headache/Pain Mild Scale (1-3) Last Admin: 02/12/23 14:48 Dose: 650 mg Al Hydroxide/Mg Hydroxide (Magnesium Hydrox/Alum Hydrox 30 Ml Oral.Susp) 30 ml PO Q6H PRN PRN Reason: Heartburn/Nausea Albuterol Sulfate (Albuterol Sulfate 90 Mcg 8 Gm Inhaler) 2 puff INHALE RQ4H PRN PRN Reason: bronchospasm Last Admin: 02/12/23 08:21 Dose: 2 puff Apixaban (Apixaban 5 Mg Tablet) 5 mg PO BID [facility] Last Admin: 02/12/23 20:41 Dose: 5 mg Aspirin (Aspirin 81 Mg Tab.Chew) 81 mg PO DAILY [facility] Last Admin: 02/12/23 08:32 Dose: 81 mg Atorvastatin Calcium (Atorvastatin Calcium 40 Mg Tablet) 40 mg PO BEDTIME [facility] Last Admin: 02/12/23 20:41 Dose: 40 mg Carvedilol (Carvedilol 3.125 Mg Tablet) 3.125 mg PO BID [facility]; Protocol Last Admin: 02/12/23 20:40 Dose: 3.125 mg Folic Acid (Folic Acid 1 Mg Tablet) 1 mg PO DAILY [facility] Last Admin: 02/12/23 08:30 Dose: 1 mg Furosemide (Furosemide 20 Mg Tablet) 20 mg PO DAILY [facility]; Protocol Last Admin: 02/12/23 08:30 Dose: 20 mg Hydroxyzine HCl (Hydroxyzine Hcl 25 Mg Tablet) 25 mg PO Q6H PRN PRN Reason: Anxiety Last Admin: 02/11/23 20:36 Dose: 25 mg Lurasidone HCl (Lurasidone Hcl 80 Mg Tablet) 80 mg PO BEDTIME [facility] Last Admin: 02/12/23 20:41 Dose: 80 mg Magnesium Hydroxide (Milk Of Magnesia 30 Ml Oral.Susp) 30 ml PO DAILY PRN PRN Reason: Constipation Last Admin: 02/12/23 16:11 Dose: 30 ml Multivitamins/Vitamin C (Multivitamin Tablet) 1 tab PO DAILY [facility] Last Admin: 02/12/23 08:30 Dose: 1 tab Nicotine (Nicotine 7 Mg Patch.Td24) 7 mg TRANSDERMA DAILY [facility] Last Admin: 02/12/23 08:33 Dose: 7 mg Omeprazole (Omeprazole 40 Mg Capsule.Dr) 40 mg PO DAILY@0630 [facility] Last Admin: 02/12/23 06:24 Dose: 40 mg Sacubitril/Valsartan (Sacubitril/Valsartan 1 Tab Tablet) 1 tab PO BID [facility]; Protocol Last Admin: 02/12/23 20:41 Dose: 1 tab Sertraline HCl (Sertraline Hcl 25 Mg Tablet) 75 mg PO DAILY [facility] Last Admin: 02/12/23 08:32 Dose: 75 mg Thiamine HCl (Thiamine Hcl 100 Mg Tablet) 100 mg PO DAILY [facility] Last Admin: 02/12/23 08:30 Dose: 100 mg Trazodone HCl (Trazodone Hcl 50 Mg Tablet) 50 mg PO BEDTIME PRN PRN Reason: sleep Last Admin: 02/11/23 20:36 Dose: 50 mg Allergies Allergies Allergy/AdvReac Type Severity Reaction Status Date / Time No Known Allergies Allergy Verified 12/21/22 16:25 Assessment & Plan Assessment & Plan (1) Schizophrenia: Status: Acute Code(s): F20.9 - Schizophrenia, unspecified (2) Routine medical exam: Status: Resolved Code(s): Z00.00 - Encounter for general adult medical examination without abnormal findings (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): Status: Resolved Code(s): E22.2 - Syndrome of inappropriate secretion of antidiuretic hormone (4) Paroxysmal atrial fibrillation: Status: Acute Code(s): I48.0 - Paroxysmal atrial fibrillation (5) Hyperlipidemia: Status: Acute Code(s): E78.5 - Hyperlipidemia, unspecified (6) COPD (chronic obstructive pulmonary disease): Status: Acute Code(s): J44.9 - Chronic obstructive pulmonary disease, unspecified (7) Hypertension: Status: Acute Code(s): I10 - Essential (primary) hypertension (8) Heart failure: Status: Acute Code(s): I50.9 - Heart failure, unspecified Plan The patient is an elderly male with a past history of schizophrenia who was fairly stable for more than 20 years of Zyprexa but unfortunately he developed syndrome of inappropriate secretion of ADH and olanzapine needed to be discontinue. He had a trial of Seroquel with poor symptoms and currently he reports psychotic symptoms and he is willing to follow treatment. Plan 1. Gather collateral information. We will try to contact his family. 2. We discussed risks, benefits, side-effects and alternatives and the patient agreed to the have a trial of Latuda 20 mg p.o. q.h.s. to target psychosis. 3. Discontinue Seroquel 150 p.o. q.h.s.. 4. Continue with medical workout. 5. We will do a new EKG after the weekend after initial trial of the to the 20 mg. The patient has several medical comorbidities that could be worsened and while at to the. He had metabolic syndrome in the past with Zyprexa. 6. Reassessment results. 7. Hospitalist consult after EKG.. 8. Increase Latuda up to 40 mg po qhs on Feb 06. February 07 we increased up to 60 mg p.o. q.h.s. no evidence of over-sedation, EPS or any other side effects at this moment. On Feb 09 we are increasing up to 80 mg po qhs. 9. Start Zoloft 25 mg po daily, increased up to 50 mg p.o. daily on February 10. 02/11/2023 Increase sertraline monitor response watch for cycling Reason for continued inpatient stay Substantial Risk for: inability to function and rapid decompensation Time Spent With Patient Time: Total time managing care of this patient today ____ minutes.
[2023-02-13] MEDS: traZODone HCL 50 MG TABLET PO ×2 (03:07→20:08)
[2023-02-13] MEDS: Omeprazole 40 MG CAPSULE.DR PO (06:30)
[2023-02-13 08:00] VITALS: BP 129/85; PULSE 83; RESP 18; TEMP 36.6; O2SAT 97
[2023-02-13] MEDS: Apixaban 5 MG TABLET PO ×2 (09:08→20:08)
[2023-02-13] MEDS: Thiamine HCL 100 MG TABLET PO (09:08)
[2023-02-13] MEDS: Furosemide 20 MG TABLET PO (09:09)
[2023-02-13] MEDS: Multivitamin TABLET 1 TAB PO (09:09)
[2023-02-13] MEDS: Aspirin 81 MG TAB.CHEW PO (09:09)
[2023-02-13] MEDS: Folic Acid 1 MG TABLET PO (09:09)
[2023-02-13] MEDS: carvediloL 3.125 MG TABLET PO ×2 (09:09→20:08)
[2023-02-13] MEDS: Sacubitril/Valsartan 24/26 1 TAB TABLET PO ×2 (09:09→20:08)
[2023-02-13] MEDS: Sertraline HCL 100 MG TABLET PO (09:17)
[2023-02-13] MEDS: Albuterol Sulfate 90 MCG 8 GM INHALER 2 PUFF INHALE ×2 (09:38→20:08)
--- NOTE | 2023-02-13 11:21 | P.PNPSI_ITS ---
Subjective Subjective Date of Service: 02/13/23 Reason For Visit: n/a Subjective Notes: Conditional Voluntary Interim History: The nursing staff reported the patient had been pleasant, medication and meal compliant. He used p.r.n. trazodone last night for sleep. He admitted anxiety 08/31. The occupational therapist reported that he participate in several in groups and he is pleasant. On interview the patient denies new symptoms he reports mild dysphoric he agreed increase Zoloft up to 100 mg p.o. q.h.s. Mental Status Exam Mental Status Exam Patient Appearance: Well Grooomed and Appropriate Patient Orientation: Person and Situation Level of Consciousness: Awake and Appropriate Patient Behavior: Guarded and Passive Mood Description: Withdrawn Affect Description: Constricted Patient Cognition Impaired: Yes Ability to Follow Directions: Good Speech Pattern: Clear Hallucinations: None Delusions: Ideas of Reference Thought Process: Distracted and Slowed Thinking Thought Content: positive for [place] and positive for Poverty of Content Judgement: Fair Diagnostics Vital Signs (24Hr): Vital Signs - 24 hr 02/12/23 19:45 02/13/23 08:00 Temperature 97.8 F 97.9 F Pulse Rate 78 83 Respiratory Rate 18 18 Blood Pressure 139/75 129/85 Pulse Oximetry 99 97 Oxygen Delivery Method Room Air Room Air BMI result Body Mass Index 27.9 Labs 02/04/23 07:50 Medications Medications Current Medications Acetaminophen (Acetaminophen 325 Mg Tablet) 650 mg PO Q6H PRN PRN Reason: Headache/Pain Mild Scale (1-3) Last Admin: 02/12/23 14:48 Dose: 650 mg Al Hydroxide/Mg Hydroxide (Magnesium Hydrox/Alum Hydrox 30 Ml Oral.Susp) 30 ml PO Q6H PRN PRN Reason: Heartburn/Nausea Albuterol Sulfate (Albuterol Sulfate 90 Mcg 8 Gm Inhaler) 2 puff INHALE RQ4H PRN PRN Reason: bronchospasm Last Admin: 02/13/23 09:38 Dose: 2 puff Apixaban (Apixaban 5 Mg Tablet) 5 mg PO BID [facility] Last Admin: 02/13/23 09:08 Dose: 5 mg Aspirin (Aspirin 81 Mg Tab.Chew) 81 mg PO DAILY [facility] Last Admin: 02/13/23 09:09 Dose: 81 mg Atorvastatin Calcium (Atorvastatin Calcium 40 Mg Tablet) 40 mg PO BEDTIME [facility] Last Admin: 10/22/23 20:41 Dose: 40 mg Carvedilol (Carvedilol 3.125 Mg Tablet) 3.125 mg PO BID [facility]; Protocol Last Admin: 02/13/23 09:09 Dose: 3.125 mg Folic Acid (Folic Acid 1 Mg Tablet) 1 mg PO DAILY [facility] Last Admin: 02/13/23 09:09 Dose: 1 mg Furosemide (Furosemide 20 Mg Tablet) 20 mg PO DAILY [facility]; Protocol Last Admin: 02/13/23 09:09 Dose: 20 mg Hydroxyzine HCl (Hydroxyzine Hcl 25 Mg Tablet) 25 mg PO Q6H PRN PRN Reason: Anxiety Last Admin: 02/11/23 20:36 Dose: 25 mg Lurasidone HCl (Lurasidone Hcl 80 Mg Tablet) 80 mg PO BEDTIME [facility] Last Admin: 02/12/23 20:41 Dose: 80 mg Magnesium Hydroxide (Milk Of Magnesia 30 Ml Oral.Susp) 30 ml PO DAILY PRN PRN Reason: Constipation Last Admin: 02/12/23 16:11 Dose: 30 ml Multivitamins/Vitamin C (Multivitamin Tablet) 1 tab PO DAILY [facility] Last Admin: 02/13/23 09:09 Dose: 1 tab Nicotine (Nicotine 7 Mg Patch.Td24) 7 mg TRANSDERMA DAILY [facility] Last Admin: 02/13/23 09:18 Dose: Not Given Omeprazole (Omeprazole 40 Mg Capsule.Dr) 40 mg PO DAILY@0630 [facility] Last Admin: 02/13/23 06:30 Dose: 40 mg Sacubitril/Valsartan (Sacubitril/Valsartan 1 Tab Tablet) 1 tab PO BID [facility]; Protocol Last Admin: 02/13/23 09:09 Dose: 1 tab Sertraline HCl (Sertraline Hcl 100 Mg Tablet) 100 mg PO DAILY [facility] Last Admin: 02/13/23 09:17 Dose: 100 mg Thiamine HCl (Thiamine Hcl 100 Mg Tablet) 100 mg PO DAILY [facility] Last Admin: 02/13/23 09:08 Dose: 100 mg Trazodone HCl (Trazodone Hcl 50 Mg Tablet) 50 mg PO BEDTIME PRN PRN Reason: sleep Last Admin: 02/13/23 03:07 Dose: 50 mg Allergies Allergies Allergy/AdvReac Type Severity Reaction Status Date / Time No Known Allergies Allergy Verified 12/21/22 16:25 Assessment & Plan Assessment & Plan (1) Schizophrenia: Status: Acute Code(s): F20.9 - Schizophrenia, unspecified (2) Routine medical exam: Status: Acute Code(s): Z00.00 - Encounter for general adult medical examination without abnormal findings (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): Status: Acute Code(s): E22.2 - Syndrome of inappropriate secretion of antidiuretic hormone (4) Paroxysmal atrial fibrillation: Status: Acute Code(s): I48.0 - Paroxysmal atrial fibrillation (5) Hyperlipidemia: Status: Acute Code(s): E78.5 - Hyperlipidemia, unspecified (6) COPD (chronic obstructive pulmonary disease): Status: Acute Code(s): J44.9 - Chronic obstructive pulmonary disease, unspecified (7) Hypertension: Status: Acute Code(s): I10 - Essential (primary) hypertension (8) Heart failure: Status: Acute Code(s): I50.9 - Heart failure, unspecified Plan The patient is an elderly male with a past history of schizophrenia who was fairly stable for more than 20 years of Zyprexa but unfortunately he developed syndrome of inappropriate secretion of ADH and olanzapine needed to be discontinue. He had a trial of Seroquel with poor symptoms and currently he reports psychotic symptoms and he is willing to follow treatment. Plan 1. Gather collateral information. We will try to contact his family. 2. We discussed risks, benefits, side-effects and alternatives and the patient agreed to the have a trial of Latuda 20 mg p.o. q.h.s. to target psychosis. 3. Discontinue Seroquel 150 p.o. q.h.s.. 4. Continue with medical workout. 5. We will do a new EKG after the weekend after initial trial of the to the 20 mg. The patient has several medical comorbidities that could be worsened and while at to the. He had metabolic syndrome in the past with Zyprexa. 6. Reassessment results. 7. Hospitalist consult after EKG.. 8. Increase Latuda up to 40 mg po qhs on Feb 06. February 07 we increased up to 60 mg p.o. q.h.s. no evidence of over-sedation, EPS or any other side effects at this moment. On Feb 09 we are increasing up to 80 mg po qhs. 9. Start Zoloft 25 mg po daily, increased up to 50 mg p.o. daily on February 10. February 13 we increase it up to 100 mg p.o. q.h.s.. Reason for continued inpatient stay Substantial Risk for: inability to function, rapid decompensation and med/psych decompensation Time Spent With Patient Time: Total time managing care of this patient today __20__ minutes.
[2023-02-13 19:50] VITALS: BP 119/68; PULSE 71; RESP 17; TEMP 36.3; O2SAT 98
[2023-02-13] MEDS: Lurasidone HCl 80 MG TABLET PO (20:08)
[2023-02-13] MEDS: Atorvastatin Calcium 40 MG TABLET PO (20:08)
[2023-02-14] MEDS: hydrOXYzine HCL 25 MG TABLET PO (04:01)
[2023-02-14] MEDS: Acetaminophen 325 MG TABLET 650 MG PO (04:03)
[2023-02-14 08:00] VITALS: BP 89/51; PULSE 68; RESP 18; TEMP 36.6; O2SAT 96
[2023-02-14] MEDS: Apixaban 5 MG TABLET PO ×2 (08:39→19:53)
[2023-02-14] MEDS: Aspirin 81 MG TAB.CHEW PO (08:39)
[2023-02-14] MEDS: Multivitamin TABLET 1 TAB PO (08:39)
[2023-02-14] MEDS: Sertraline HCL 100 MG TABLET PO (08:39)
[2023-02-14] MEDS: Thiamine HCL 100 MG TABLET PO (08:39)
[2023-02-14] MEDS: Omeprazole 40 MG CAPSULE.DR PO (08:39)
[2023-02-14] MEDS: Folic Acid 1 MG TABLET PO (08:39)
[2023-02-14] MEDS: Nicotine 7 MG PATCH.TD24 TRANSDERMA (08:40)
--- NOTE | 2023-02-14 09:42 | PC.NURSE ---
morning BP medications held due to low BP 89/5. provider aware
--- NOTE | 2023-02-14 11:39 | P.PNPSI_ITS ---
Subjective Subjective Date of Service: 02/14/23 Reason For Visit: n/a Subjective Notes: Conditional Voluntary Interim History: The nursing staff reported the patient is alert oriented x3 compliant with his medication. He slept well and he had been seen socializing with some peers. The social professionals reported that his disease concerned that he probably could relapse. On interview the patient denies side effects he denies auditory or visual hallucinations and he is feeling better. We will discuss possible discharge tomorrow. Mental Status Exam Mental Status Exam Patient Appearance: Well Grooomed and Appropriate Patient Orientation: Person and Situation Level of Consciousness: Awake and Appropriate Patient Behavior: Guarded and Passive Mood Description: Withdrawn Affect Description: Constricted Patient Cognition Impaired: Yes Ability to Follow Directions: Good Speech Pattern: Clear Hallucinations: None Delusions: Not Present Thought Process: Distracted and Goal Oriented Thought Content: positive for Circumstantial Judgement: Fair Diagnostics Vital Signs (24Hr): Vital Signs - 24 hr 02/13/23 19:50 02/14/23 08:00 Temperature 97.3 F 97.9 F Pulse Rate 71 68 Respiratory Rate 17 18 Blood Pressure 119/68 89/51 L Pulse Oximetry 98 96 Oxygen Delivery Method Room Air Room Air BMI result Body Mass Index 27.9 Labs 02/04/23 07:50 Medications Medications Current Medications Acetaminophen (Acetaminophen 325 Mg Tablet) 650 mg PO Q6H PRN PRN Reason: Headache/Pain Mild Scale (1-3) Last Admin: 02/14/23 04:03 Dose: 650 mg Al Hydroxide/Mg Hydroxide (Magnesium Hydrox/Alum Hydrox 30 Ml Oral.Susp) 30 ml PO Q6H PRN PRN Reason: Heartburn/Nausea Albuterol Sulfate (Albuterol Sulfate 90 Mcg 8 Gm Inhaler) 2 puff INHALE RQ4H PRN PRN Reason: bronchospasm Last Admin: 02/13/23 20:08 Dose: 2 puff Apixaban (Apixaban 5 Mg Tablet) 5 mg PO BID [facility] Last Admin: 02/14/23 08:39 Dose: 5 mg Aspirin (Aspirin 81 Mg Tab.Chew) 81 mg PO DAILY [facility] Last Admin: 02/14/23 08:39 Dose: 81 mg Atorvastatin Calcium (Atorvastatin Calcium 40 Mg Tablet) 40 mg PO BEDTIME [facility] Last Admin: 02/13/23 20:08 Dose: 40 mg Carvedilol (Carvedilol 3.125 Mg Tablet) 3.125 mg PO BID [facility]; Protocol Last Admin: 02/14/23 08:43 Dose: Not Given Folic Acid (Folic Acid 1 Mg Tablet) 1 mg PO DAILY [facility] Last Admin: 02/14/23 08:39 Dose: 1 mg Furosemide (Furosemide 20 Mg Tablet) 20 mg PO DAILY [facility]; Protocol Last Admin: 02/14/23 08:43 Dose: Not Given Hydroxyzine HCl (Hydroxyzine Hcl 25 Mg Tablet) 25 mg PO Q6H PRN PRN Reason: Anxiety Last Admin: 02/14/23 04:01 Dose: 25 mg Lurasidone HCl (Lurasidone Hcl 80 Mg Tablet) 80 mg PO BEDTIME [facility] Last Admin: 02/13/23 20:08 Dose: 80 mg Magnesium Hydroxide (Milk Of Magnesia 30 Ml Oral.Susp) 30 ml PO DAILY PRN PRN Reason: Constipation Last Admin: 02/12/23 16:11 Dose: 30 ml Multivitamins/Vitamin C (Multivitamin Tablet) 1 tab PO DAILY [facility] Last Admin: 02/14/23 08:39 Dose: 1 tab Nicotine (Nicotine 7 Mg Patch.Td24) 7 mg TRANSDERMA DAILY [facility] Last Admin: 02/14/23 08:40 Dose: 7 mg Omeprazole (Omeprazole 40 Mg Capsule.Dr) 40 mg PO DAILY@0630 [facility] Last Admin: 02/14/23 08:39 Dose: 40 mg Sacubitril/Valsartan (Sacubitril/Valsartan 1 Tab Tablet) 1 tab PO BID [facility]; Protocol Last Admin: 02/14/23 08:43 Dose: Not Given Sertraline HCl (Sertraline Hcl 100 Mg Tablet) 100 mg PO DAILY [facility] Last Admin: 02/14/23 08:39 Dose: 100 mg Thiamine HCl (Thiamine Hcl 100 Mg Tablet) 100 mg PO DAILY [facility] Last Admin: 02/14/23 08:39 Dose: 100 mg Trazodone HCl (Trazodone Hcl 50 Mg Tablet) 50 mg PO BEDTIME PRN PRN Reason: sleep Last Admin: 02/13/23 20:08 Dose: 50 mg Allergies Allergies Allergy/AdvReac Type Severity Reaction Status Date / Time No Known Allergies Allergy Verified 12/21/22 16:25 Assessment & Plan Assessment & Plan (1) Schizophrenia: Status: Acute Code(s): F20.9 - Schizophrenia, unspecified (2) Routine medical exam: Status: Acute Code(s): Z00.00 - Encounter for general adult medical examination without abnormal findings (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): Status: Acute Code(s): E22.2 - Syndrome of inappropriate secretion of antidiuretic hormone (4) Paroxysmal atrial fibrillation: Status: Acute Code(s): I48.0 - Paroxysmal atrial fibrillation (5) Hyperlipidemia: Status: Acute Code(s): E78.5 - Hyperlipidemia, unspecified (6) COPD (chronic obstructive pulmonary disease): Status: Acute Code(s): J44.9 - Chronic obstructive pulmonary disease, unspecified (7) Hypertension: Status: Acute Code(s): I10 - Essential (primary) hypertension (8) Heart failure: Status: Acute Code(s): I50.9 - Heart failure, unspecified Plan The patient is an elderly male with a past history of schizophrenia who was fairly stable for more than 20 years of Zyprexa but unfortunately he developed syndrome of inappropriate secretion of ADH and olanzapine needed to be discontinue. He had a trial of Seroquel with poor symptoms and currently he reports psychotic symptoms and he is willing to follow treatment. Plan 1. Gather collateral information. We will try to contact his family. 2. We discussed risks, benefits, side-effects and alternatives and the patient agreed to the have a trial of Latuda 20 mg p.o. q.h.s. to target psychosis. 3. Discontinue Seroquel 150 p.o. q.h.s.. 4. Continue with medical workout. 5. We will do a new EKG after the weekend after initial trial of the to the 20 mg. The patient has several medical comorbidities that could be worsened and while at to the. He had metabolic syndrome in the past with Zyprexa. 6. Reassessment results. 7. Hospitalist consult after EKG.. 8. Increase Latuda up to 40 mg po qhs on Feb 06. February 07 we increased up to 60 mg p.o. q.h.s. no evidence of over-sedation, EPS or any other side effects at this moment. On Feb 09 we are increasing up to 80 mg po qhs. 9. Start Zoloft 25 mg po daily, increased up to 50 mg p.o. daily on February 10. February 13 we increase it up to 100 mg p.o. q.h.s.. 10. Discharge for tomorrow. Reason for continued inpatient stay Substantial Risk for: inability to function, rapid decompensation and med/psych decompensation Time Spent With Patient Time: Total time managing care of this patient today __20__ minutes.
--- NOTE | 2023-02-14 15:11 | PM.PSYDC ---
DS: Providers Provider Date of Service: 02/14/23 Date of admission: 02/02/23 19:32 Date of discharge: 02/15/23 Primary care physician: Unknown Physician Consults: 02/03/23 10:58 Consult to Hospitalist Routine Comment: Consulting Provider: Hospitalist Reason For Exam: direct admission DS: Diagnosis Discharge Diagnosis (1) Schizophrenia: Status: Acute (2) Routine medical exam: Status: Acute (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): Status: Acute (4) Paroxysmal atrial fibrillation: Status: Acute (5) Hyperlipidemia: Status: Acute (6) COPD (chronic obstructive pulmonary disease): Status: Acute (7) Hypertension: Status: Acute (8) Heart failure: Status: Acute DS: Medications Discharge Medications Home Medications: Previous Rx's Medication Instructions Recorded apixaban 5 mg tablet (Eliquis) 5 mg PO BID #60 tabs 09/29/22 albuterol sulfate 90 mcg/actuation 2 puff inhalation Q4-6H PRN 10/05/22 aerosol inhaler (ProAir HFA) shortness of breath or wheezing #6.7 grams nicotine 7 mg/24 hr daily 1 patch transdermal Q24H #28 ea 12/21/22 transdermal patch quetiapine 150 mg tablet 150 mg PO BEDTIME #90 tabs 01/06/23 quetiapine 50 mg tablet 150 mg (3 x 50 mg) PO BEDTIME #90 01/06/23 tabs acetaminophen 325 mg tablet 650 mg (2 x 325 mg) PO Q6H PRN 02/14/23 pain #240 tabs albuterol sulfate 90 mcg/actuation 2 puff inhalation RQ4H PRN 02/14/23 aerosol inhaler (Ventolin HFA) bronchospasm 30 days #1 g apixaban 5 mg tablet (Eliquis) 5 mg PO BID #60 tabs 02/14/23 aspirin 81 mg capsule 81 mg PO DAILY #90 caps 02/14/23 atorvastatin 40 mg tablet (Lipitor) 40 mg PO QPM #90 tabs 02/14/23 carvedilol 3.125 mg tablet 3.125 mg PO Q12H #60 tabs 02/14/23 folic acid 1 mg tablet 1 mg PO DAILY #30 tabs 02/14/23 furosemide 20 mg tablet 20 mg PO DAILY #30 tabs 02/14/23 ipratropium 0.5 mg-albuterol 3 mg 3 ml inhalation Q4-6H PRN wheezing 02/14/23 (2.5 mg base)/3 mL nebulization 30 days #270 mL soln lurasidone 80 mg tablet (Latuda) 80 mg PO BEDTIME 30 days #30 tabs 02/14/23 multivitamin 1 tab PO DAILY #90 tabs 02/14/23 nicotine 7 mg/24 hr daily 7 mg transdermal DAILY #14 ea 02/14/23 transdermal patch pantoprazole 40 mg tablet,delayed 40 mg PO DAILY #30 tabs 02/14/23 release (Protonix) sacubitril 24 mg-valsartan 26 mg 1 tab PO BID #60 tabs 02/14/23 tablet (Entresto) sertraline 100 mg tablet 100 mg PO DAILY 30 days #30 tabs 02/14/23 thiamine HCl (vitamin B1) 100 mg 100 mg PO DAILY #90 tabs 02/14/23 tablet trazodone 50 mg tablet 50 mg PO BEDTIME PRN sleep 30 days 02/14/23 #30 tabs umeclidinium 62.5 mcg-vilanterol 1 inh inhalation DAILY #60 ea 02/14/23 25 mcg/actuation powdr for inhalation (Anoro Ellipta) varenicline 1 mg tablet 1 mg PO DAILY #56 tabs 02/14/23 Mental Status Exam Mental Status Exam Patient Appearance: Well Grooomed and Appropriate Patient Orientation: Person, Place and Situation Level of Consciousness: Awake and Appropriate Patient Behavior: Guarded and Passive Mood Description: Withdrawn Affect Description: Constricted Patient Cognition Impaired: Yes Ability to Follow Directions: Good Speech Pattern: Clear Hallucinations: None Delusions: Not Present Thought Process: Distracted and Linear Thought Content: positive for [place] and positive for Poverty of Content Judgement: Fair DS: Summary Hospital Course Hospital Course: The patient is a 67-year-old male, single, with no children, unemployed on disability with a prior history of schizophrenia who was brought to the emergency room of another hospital for exacerbation of his psychotic symptoms. According to the patient's report, the patient had been stable without any psychiatric admissions for more than 20 years since he was taking olanzapine. Unfortunately he developed SIADH and olanzapine was cross taper to so Seroquel with poor efficacy. The patient called 911 asking for help since he was having exacerbation of auditory hallucinations, paranoia and disorganized behavior with threatening verbal threats to his knees. He was assessed by crisis and transferring to this facility for psychiatric stabilization. Please see the HPI of the admission note for further details. On admission, we discussed at length risks, benefits, side-effects and alternatives. Since the patient had previously a cardiovascular problem we discussed that the possibility of Geodon. We try to look for a metabolic syndrome free antipsychotics. He agreed to start on Latuda that it was titrated up slowly up to 80 mg p.o. q.h.s. with for resolution of his symptoms and no evidence of side effects. Also, the patient admitted dysphoria. Historically, he responded fairly well to Zoloft and we started the titration of saliva to 100 mg p.o. q.h.s. with for tolerability and improvement of his dysphoria. The patient did not have aftercare, he lost his psychiatrist or years ago and his primary care physician was feeling his scripts. The social sciences department chair met with the family, we explained to the family the goals of treatment and aftercare was discussed. Since there were no safety concerns discharge planning was discussed. Time spent discussing smoking cessation with patient: 3 to 10 minutes Status at Discharge Cognitive/behavioral status at discharge: At baseline Functional status at discharge: independent ambulation Overall status at discharge: patient is back to baseline Time Spent with Patient Time attestation: Total time managing care of this patient today __30__ minutes. Time spent: Less than 30 minutes Discharge Plan Discharge Anticipated Discharge Date/Time: 02/15/23 11:00 Patient Disposition: Home, Self-Care Discharge Diagnosis: Schizophrenia Referrals: [facility] [Other] - 02/17/23 10:00 am (Your Wad Blanking Press Adjuster at [facility] will contact you following discharge. Behavioral Health Clinician Uma Johnson at ext [phone] to contact you on 02/17/23 at 10am by phone for follow up. ) Dr Diaz [Other] - 1 Week (Call placed you your PCP with request for follow up appointment. Office will contact you with date and time of appointment. ) [facility] [Other] - 02/16/23 (Your VNA services to restart on 02/16/23) [facility] [Other] - 03/09/23 1:30 pm (Your first appointment for psychiatry is scheduled for telehealth with [facility] on 03/09/23 at 1:30pm. ) Discharge Medications: New albuterol sulfate [Ventolin HFA] 90 mcg/actuation Hfa Aerosol Inhaler 2 puff inhalation RQ4H PRN (Reason: bronchospasm) 30 Days Qty: 1 0RF nicotine 7 mg/24 hr Patch 24 Hour 7 mg transdermal DAILY Qty: 14 0RF Eliquis 5 mg Tablet 5 mg PO BID Qty: 60 0RF trazodone 50 mg Tablet 50 mg PO BEDTIME PRN (Reason: sleep) 30 Days Qty: 30 0RF sertraline 100 mg Tablet 100 mg PO DAILY 30 Days Qty: 30 0RF lurasidone [Latuda] 80 mg Tablet 80 mg PO BEDTIME 30 Days Qty: 30 0RF Continued multivitamin Tablet 1 tab PO DAILY Qty: 90 0RF atorvastatin [Lipitor] 40 mg tablet 40 mg PO QPM Qty: 90 1RF acetaminophen 325 mg tablet 650 mg PO Q6H PRN (Reason: pain) Qty: 240 0RF ipratropium-albuterol 0.5 mg-3 mg(2.5 mg base)/3 mL solution for nebulization 3 ml inhalation Q4-6H PRN (Reason: wheezing) 30 Days Qty: 270 6RF thiamine HCl (vitamin B1) 100 mg tablet 100 mg PO DAILY Qty: 90 0RF carvedilol 3.125 mg tablet 3.125 mg PO Q12H Qty: 60 2RF Rx Instructions: must administer with a meal/food folic acid 1 mg tablet 1 mg PO DAILY Qty: 30 1RF furosemide 20 mg tablet 20 mg PO DAILY Qty: 30 1RF varenicline 1 mg tablet 1 mg PO DAILY Qty: 56 0RF Anoro Ellipta 62.5-25 mcg/actuation blister with device 1 inh inhalation DAILY Qty: 60 0RF Entresto 24-26 mg tablet 1 tab PO BID Qty: 60 1RF aspirin 81 mg capsule 81 mg PO DAILY Qty: 90 0RF Changed pantoprazole [Protonix] 40 mg Tablet,Delayed Release (Dr/Ec) 40 mg PO DAILY Qty: 30 0RF Discontinued Eliquis 5 mg tablet 5 mg PO BID Qty: 60 0RF albuterol sulfate [ProAir HFA] 90 mcg/actuation HFA aerosol inhaler 2 puff inhalation Q4-6H PRN (Reason: shortness of breath or wheezing) Qty: 6.7 5RF quetiapine 150 mg tablet 150 mg PO BEDTIME Qty: 90 1RF quetiapine 50 mg tablet 150 mg PO BEDTIME Qty: 90 0RF nicotine 7 mg/24 hr patch 24 hour 1 patch transdermal Q24H Qty: 28 2RF Patient Comments: not on medical record, but pt wearing 7mg/24hr patch Discharge Orders: Discharge Order (Routine); Ordered 02/15/23 Ordered By: He Garcia Diet: Advance to usual diet Activity on Discharge: As tolerated Stand Alone Forms: Patient Portal Discharge page Care Plan Goals: Care plan goals achieved in this admission Health Concerns: Continue treatment with primary care physician Plan of Treatment: The patient was referred for outpatient services in a local geriatric clinic with psychiatric prescriber. At this moment safe from the current doses. Assessment: Elderly male with a past history of schizophrenia who was brought into the facility since he was unable to tolerate Seroquel and he had side effects with olanzapine the keep him stable for years. He was successfully treated with 2 lead to the with resolution of his psychosis and we started Zoloft due to his dysphoria. At this moment safe to be in the community.
[2023-02-14 18:00] VITALS: BP 173/79; PULSE 70; RESP 18; TEMP 36.6; O2SAT 99
[2023-02-14] MEDS: Atorvastatin Calcium 40 MG TABLET PO (19:53)
[2023-02-14] MEDS: traZODone HCL 50 MG TABLET PO (19:53)
[2023-02-14] MEDS: carvediloL 3.125 MG TABLET PO (19:53)
[2023-02-14] MEDS: Lurasidone HCl 80 MG TABLET PO (19:53)
[2023-02-14] MEDS: Sacubitril/Valsartan 24/26 1 TAB TABLET PO (19:53)
[2023-02-15] MEDS: traZODone HCL 50 MG TABLET PO ×2 (00:41→20:24)
[2023-02-15] MEDS: Albuterol Sulfate 90 MCG 8 GM INHALER 2 PUFF INHALE ×2 (00:41→09:30)
[2023-02-15] MEDS: hydrOXYzine HCL 25 MG TABLET PO ×2 (00:41→20:24)
[2023-02-15] MEDS: Omeprazole 40 MG CAPSULE.DR PO (05:44)
[2023-02-15 06:00] VITALS: BP 109/61; PULSE 81; RESP 18; TEMP 36.5; O2SAT 96
[2023-02-15] MEDS: Sertraline HCL 100 MG TABLET PO (09:21)
[2023-02-15] MEDS: Folic Acid 1 MG TABLET PO (09:21)
[2023-02-15] MEDS: Thiamine HCL 100 MG TABLET PO (09:21)
[2023-02-15] MEDS: Apixaban 5 MG TABLET PO ×2 (09:21→20:23)
[2023-02-15] MEDS: carvediloL 3.125 MG TABLET PO ×2 (09:21→20:24)
[2023-02-15] MEDS: Multivitamin TABLET 1 TAB PO (09:21)
[2023-02-15] MEDS: Furosemide 20 MG TABLET PO (09:21)
[2023-02-15] MEDS: Sacubitril/Valsartan 24/26 1 TAB TABLET PO ×2 (09:21→20:23)
[2023-02-15] MEDS: Nicotine 7 MG PATCH.TD24 TRANSDERMA (09:21)
[2023-02-15] MEDS: Aspirin 81 MG TAB.CHEW PO (09:22)
[2023-02-15] MEDS: Acetaminophen 325 MG TABLET 650 MG PO (09:29)
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
[2023-02-15 18:00] VITALS: BP 132/65; PULSE 66; RESP 20; TEMP 36.3; O2SAT 98
[2023-02-15] MEDS: Lurasidone HCl 80 MG TABLET PO (20:23)
[2023-02-15] MEDS: Atorvastatin Calcium 40 MG TABLET PO (20:25)
[2023-02-16 06:00] VITALS: BP 125/65; PULSE 61; RESP 18; TEMP 36.3; O2SAT 98
[2023-02-16] MEDS: Omeprazole 40 MG CAPSULE.DR PO (07:45)
[2023-02-16] MEDS: carvediloL 3.125 MG TABLET PO (07:45)
[2023-02-16] MEDS: Sertraline HCL 100 MG TABLET PO (07:45)
[2023-02-16] MEDS: Sacubitril/Valsartan 24/26 1 TAB TABLET PO (07:45)
[2023-02-16] MEDS: Apixaban 5 MG TABLET PO (07:46)
[2023-02-16] MEDS: Furosemide 20 MG TABLET PO (07:46)
[2023-02-16] MEDS: Folic Acid 1 MG TABLET PO (07:46)
[2023-02-16] MEDS: Thiamine HCL 100 MG TABLET PO (07:46)
[2023-02-16] MEDS: Nicotine 7 MG PATCH.TD24 TRANSDERMA (07:46)
[2023-02-16] MEDS: Multivitamin TABLET 1 TAB PO (07:51)
[2023-02-16] MEDS: Aspirin 81 MG TAB.CHEW PO (07:52)
--- NOTE | 2023-02-16 18:10 | PC.NURSE ---
Patient expresses readiness for discharge. All instructions reviewed with patient. Patient verbalized understanding. Prescriptions sent to pharmacy. PCP aware of discharge. Reports faxed to provider, Patient denies SI/HI/AH/VH. Denies pain. Escorted to front of hospital by Staff.
== END 2023-02-16 17:25 | disposition home or self-care (01) | DRG 885 ==
PROVIDERS: Admitting Provider Psychiatry & Neurology Psychiatry; Visit Provider Psychiatry & Neurology Psychiatry
DX: F20.9 Schizophrenia, unspecified (principal); E22.2 Syndrome of inappropriate secretion of antidiuretic hormone; I25.10 Atherosclerotic heart disease of native coronary artery without angina pectoris; Z23 Encounter for immunization; Z95.1 Presence of aortocoronary bypass graft; I48.0 Paroxysmal atrial fibrillation; E78.5 Hyperlipidemia, unspecified; J44.9 Chronic obstructive pulmonary disease, unspecified; I11.0 Hypertensive heart disease with heart failure; I50.9 Heart failure, unspecified; Z87.891 Personal history of nicotine dependence; Z62.810 Personal history of physical and sexual abuse in childhood; Z79.01 Long term (current) use of anticoagulants; Z79.82 Long term (current) use of aspirin; Z79.899 Other long term (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
CPT/HCPCS: 36415; 80053; 80061; 90686; 93005

== ENCOUNTER → 2023-02-02 19:32 | Outpatient (BNV) | payer OTHER, SELFPAY | PROVIDERS: Admitting Provider Psychiatry & Neurology Psychiatry; Visit Provider Psychiatry & Neurology Psychiatry | DX: F20.89 Other schizophrenia (principal); E22.2 Syndrome of inappropriate secretion of antidiuretic hormone; I48.0 Paroxysmal atrial fibrillation; E78.5 Hyperlipidemia, unspecified; J44.9 Chronic obstructive pulmonary disease, unspecified; I10 Essential (primary) hypertension; I50.9 Heart failure, unspecified | CPT/HCPCS: 99231 ==

== ENCOUNTER → 2023-02-02 19:32 | Outpatient (BNV) | payer OTHER, SELFPAY | PROVIDERS: Admitting Provider Psychiatry & Neurology Psychiatry; Visit Provider Physician Assistant | DX: Z02.2 Encounter for examination for admission to residential institution (principal) | CPT/HCPCS: 99429 ==

== ENCOUNTER → 2023-02-02 19:32 | Outpatient (BNV) | payer OTHER, SELFPAY | PROVIDERS: Admitting Provider Psychiatry & Neurology Psychiatry; Visit Provider Psychiatry & Neurology Psychiatry | DX: F39 Unspecified mood [affective] disorder (principal); F20.89 Other schizophrenia; I48.0 Paroxysmal atrial fibrillation; E78.5 Hyperlipidemia, unspecified; J44.9 Chronic obstructive pulmonary disease, unspecified; I10 Essential (primary) hypertension; I50.9 Heart failure, unspecified | CPT/HCPCS: 90792; 99231; 99232 ==

== ENCOUNTER 2023-08-04 08:23 | Outpatient (AMB) | payer OTHER, SELFPAY ==
--- NOTE | 2023-08-04 08:41 | AM.OFFVISNUR ---
Intake Intake Visit Reasons: COPD Allergies No Known Allergies Allergy (Verified 12/21/22 16:25) Office Procedures 6 Minute Walk Time:: 08:30 SPO2 % at rest: 87 Pulse at rest: 84 Performance Observations:: Patient's resting O2 sat on R/A 87% O2 applies at 2lpm cont flow, after 5 minutes O2 sat increased to 93% 6 Minute Walk (with oxygen) Time:: 08:40 SPO2 % at rest:: 93 Pulse at rest:: 88 SPO2 % during exercise:: 87 Pulse during exercise:: 86 SPO2 % after exercise: 93 Pulse after exercise:: 88 Distance in yards walked:: 300 Mayi Score:: 9 Supplemental Oxygen: Patient restingO2 sat on R/A 87% O2 applies at 2lpm, ambulated on level ground on 2lpm cont flow after 2 minutes O2 sat decreased to 87% O2 increased to 3lpm cont flow. O2 sat 94% Resumed ambulation on 3lpm O2 sat 93% recommend O2 @ 3lpm with exertion, 2 lpm with rest. [id number] - 6 Minute Walk Coding CPT Codes Coding ([id number])
[2023-08-04 08:46] VITALS: PULSE 84; PULSE 88; O2SAT 87; O2SAT 93
== END 2023-08-04 09:01 | disposition home or self-care (01) ==
PROVIDERS: PCP Internal Medicine; Visit Provider Internal Medicine Pulmonary Disease
DX: J44.9 Chronic obstructive pulmonary disease, unspecified (principal)
CPT/HCPCS: 94618

== ENCOUNTER 2023-08-04 08:23 | Outpatient (AMB) | payer OTHER, SELFPAY ==
--- NOTE | 2023-08-04 08:39 | MHC.OFFVIS ---
Intake Vital Signs 08/04/23 08:40 Height 5 ft 10 in Weight 218 lb 4.122 oz BMI 31.3 BP 118/64 Blood Pressure Location Rt brachial Position Sitting Pulse 82 Pulse Source Doppler Pulse Oximetry (%) 95 Oxygen Delivery Method Nasal Cannula Intake Visit Reasons: COPD/O2 eval Allergies No Known Allergies Allergy (Verified 12/21/22 16:25) HPI COPD/O2 eval HPI Details 66-year-old gentleman, active 50+ pack-year smoker, previously followed for oxygen-dependent COPD and pulmonary nodules. Patient was lost to follow-up for last 15 months, today he presents asking for recertification of his oxygen therapy. Patient states that he has been using Anoro, duo nebs, and albuterol MDI with reasonable control of his symptoms. He denies recent exacerbations. He has not completed requested CT chest or pulmonary function test. [facility] Medical History Former smoker SIADH (syndrome of inappropriate ADH production) Paroxysmal atrial fibrillation Atrial flutter Mood disorder Heart failure COPD (chronic obstructive pulmonary disease) Hypertension Hyperlipidemia TIA (transient ischemic attack) Encounter to establish care Surgical History S/P CABG x 3 Social History Household Members: Family Household Members Other:: Niece and her daughter Housing: Apartment Do you presently have visiting nurse or other home services: Yes Patient Tobacco Use Status: Former Tobacco user Quit Date: 12/07/22 Tobacco use type: Cigarette Cigarette Packs Per Day: 1 Cigarettes Per Day: 20 Years Smoked: 53 years e-Cigarette/Vaping Use: Never Used Second Hand Smoke Exposure: Yes Substance Use Type: Crack/Cocaine and Marijuana service: No Current occupational status: retired Sexual orientation: Straight/Heterosexual Cognitive needs: Yes Hearing needs: No Vision needs: Yes Review of Systems Const Denies daytime sleepiness, Denies excessive sweating, Denies fatigue, Denies fever(s), Denies lethargy, Denies malaise, Denies night sweats, Denies snoring and Denies weight loss Eyes Denies blurry vision and Denies itchy eyes ENT Denies nasal congestion, Denies post nasal drip, Denies sinus pain, Denies sinus pressure and Denies other ( Thrush) Card Denies chest pain, Denies pedal edema, Denies dyspnea, Denies orthopnea and Denies paroxysmal nocturnal dyspnea Resp Denies cough, Denies hemoptysis, Denies excessive phlegm production, Denies dyspnea, Denies snoring and Denies wheezing GI Denies abdominal pain and Denies heartburn Musc Denies myalgias, Denies arthralgias and Denies joint swelling Skin/Breast Denies rash Neuro Denies memory loss and Denies seizure-like activity Psych Denies abnormal sleep pattern, Denies anxiety and Denies memory loss Endo Denies excessive sweating, Denies fatigue and Denies heat intolerance Rowdy/Lymph Denies easy bruising Aller/Immun Denies itchy eyes, Denies seasonal rhinorrhea and Denies wheezing Physical Exam Vital Signs: Last Vital Signs Pulse 82 08/04/23 08:40 BP 118/64 08/04/23 08:40 Pulse Ox 95 08/04/23 08:40 Oxygen Delivery Method Nasal Cannula 08/04/23 08:40 BMI result Body Mass Index 31.3 Const General: no acute distress and alert Nutritional Appearance: not obese Orientation/consciousness: Other orientation findings ( oriented) HEENT Head: Yes atraumatic Eyes General: appearance normal, both eyes and all related structures Sclerae: sclerae normal EOM: EOMs intact bilaterally Neck Neck: Yes supple Lymphatic: no lymphadenopathy noted Resp Effort & Inspection: normal respiratory effort and no use of accessory muscles Auscultation: clear to auscultation bilaterally Cardio Rate: regular rate Rhythm: regular rhythm Heart sounds: no gallops, no murmurs and no rubs Skin General skin exam: other ( warm) Extrem General: No clubbing, No cyanosis and No edema Assessment & Plan Assessment & Plan (1) COPD (chronic obstructive pulmonary disease): Code(s): J44.9 - Chronic obstructive pulmonary disease, unspecified Plan: Underlying COPD of unclear severity reasonably controlled on Anoro, duo nebs, and albuterol MDI. Continue current regimen. PFT requested. (2) Supplemental oxygen dependent: Code(s): Z99.81 - Dependence on supplemental oxygen Plan: Supplemental oxygen/6 minute walk test performed. Patient continues to require supplemental oxygen at 2 L continuous flow with exertion to maintain normal oximetry. Recertification order placed. (3) Personal history of nicotine dependence: Code(s): Z87.891 - Personal history of nicotine dependence Plan: Patient has not completed his lung cancer screening CT chest. Screening CT chest reordered. Orders: Orders CT lung screening Today Z87.891 - Personal history of nicotine dependence PFT pulmonary function test Today J44.9 - Chronic obstructive pulmonary disease, unspecified Coding Level of Care Code Est Pt Level 5 (74976) Diagnoses COPD (chronic obstructive pulmonary disease) J44.9 Supplemental oxygen dependent Z99.81 Personal history of nicotine dependence Z87.891
[2023-08-04 08:40] VITALS: BP 118/64; PULSE 82; O2SAT 95; BMI 31.3
== END 2023-08-04 09:09 | disposition home or self-care (01) ==
PROVIDERS: PCP Internal Medicine; Visit Provider Internal Medicine Pulmonary Disease
DX: J44.9 Chronic obstructive pulmonary disease, unspecified (principal); Z99.81 Dependence on supplemental oxygen; Z87.891 Personal history of nicotine dependence
CPT/HCPCS: 99214

== ENCOUNTER → 2023-08-04 08:23 | Outpatient (BNVA) | payer OTHER, SELFPAY | PROVIDERS: PCP Internal Medicine; Visit Provider Internal Medicine Pulmonary Disease | DX: J44.9 Chronic obstructive pulmonary disease, unspecified (principal); Z99.81 Dependence on supplemental oxygen; Z87.891 Personal history of nicotine dependence | CPT/HCPCS: 94618; 99212 ==

== ENCOUNTER 2023-10-05 13:16 | Outpatient (AMB) | payer OTHER, SELFPAY ==
--- NOTE | 2023-10-05 13:18 | MHC.PC.OV ---
Vital Signs 10/05/23 13:21 Height 5 ft 10 in Weight 207 lb 2 oz BMI 29.7 BP 112/74 Blood Pressure Location Lt brachial Position Sitting Pulse 85 Pulse Source Pulse Oximeter Pulse Oximetry (%) 93 Oxygen Delivery Method Room Air Intake Visit Reasons: office visit Intake Note: Patient is here to follow up on COPD, HLD, HTN, Schizophrenia. Credit Risk Specialist Required: No Resistor Coater: Not Required per policy Accompanied by: Self / Same As Patient Allergies No Known Allergies Allergy (Verified 10/05/23 13:54) Medication List - Last Reconciled 10/05/23 by Mitchell Pinto MD acetaminophen 650 mg (2 x 325 mg) PO Q6H PRN albuterol sulfate 90 mcg/actuation (Ventolin HFA) 2 puffs inhalation RQ4H PRN 30 days apixaban (Eliquis) 5 mg PO BID aspirin 81 mg PO DAILY atorvastatin (Lipitor) 40 mg PO QPM carvedilol 3.125 mg PO Q12H folic acid 1 mg PO DAILY furosemide 20 mg PO DAILY ipratropium-albuterol 0.5 mg-3 mg(2.5 mg base)/3 mL 3 mL inhalation Q4-6H PRN 30 days lurasidone (Latuda) 80 mg PO BEDTIME 30 days multivitamin 1 tab PO DAILY nicotine 7 mg transdermal DAILY pantoprazole (Protonix) 40 mg PO DAILY sacubitril-valsartan 24-26 mg (Entresto) 1 tab PO BID sertraline 100 mg PO DAILY 30 days thiamine HCl (vitamin B1) 100 mg PO DAILY trazodone 50 mg PO BEDTIME PRN 30 days umeclidinium-vilanterol 62.5-25 mcg/actuation (Anoro Ellipta) 1 inh inhalation DAILY varenicline 1 mg PO DAILY Tobacco use date assessed: 10/05/23 Fall risk assessment: No Falls in past year Last assessed Fall Risk: 10/05/23 Dental Screening Dental Screen Date: 10/05/23 Did you have a dental visit in the last 12 months?: No Did you have a dental problem in the last 6 months where you did not have access to dental care?: No Was dental information given to patient?: No HPI office visit HPI Details 68-year-old male presents to the office to discuss his chronic medical conditions. Patient comes to the office alone. He reports he is in good health. Quit smoking 2 years ago. Would like a refill on his albuterol inhaler.. Compliant with medications and reporting no side effects. Patient lives with his niece who takes care of his medical needs. [facility] Medical History Former smoker SIADH (syndrome of inappropriate ADH production) Paroxysmal atrial fibrillation Atrial flutter Mood disorder Heart failure COPD (chronic obstructive pulmonary disease) Hypertension Hyperlipidemia TIA (transient ischemic attack) Encounter to establish care Surgical History S/P CABG x 3 Social History (Updated 10/05/23 @ 13:26 by ISMAEL Gonzalez) Household Members: Family Household Members Other:: Niece and her daughter Housing: Apartment Do you presently have visiting nurse or other home services: Yes Alcohol intake: former Patient Tobacco Use Status: Former Tobacco user Tobacco use type: Cigarette Cigarette Packs Per Day: 1 Cigarettes Per Day: 20 Years Smoked: 53 years e-Cigarette/Vaping Use: Never Used Second Hand Smoke Exposure: Yes Substance Use Type: Crack/Cocaine and Marijuana service: No Current occupational status: retired Sexual orientation: Straight/Heterosexual Cognitive needs: Yes Hearing needs: No Vision needs: Yes (Glasses) Questionnaire PHQ-9 Over the last 2 weeks, how often have you been bothered by any of the following problems? 1. Little interest or pleasure in doing things: not at all 2. Feeling down, depressed, or hopeless: not at all 3. Trouble falling or staying asleep, or sleeping too much: not at all 4. Feeling tired or having little energy: not at all 5. Poor appetite or overeating: not at all 6. Feeling bad about yourself - or that you are a failure or have let yourself or your family down: not at all 7. Trouble concentrating on things, such as reading the newspaper or watching television: not at all 8. Moving or speaking so slowly that other people could have noticed. Or the opposite - being so fidgety or restless that you have been moving around a lot more than usual: not at all 9. Thoughts that you would be better off or of hurting yourself in some way: not at all Total score: 0 Depression Screening Interpretation: Negative Depression Screening Done: Yes Source: Developed by Lizz Hoffman Kurt Kroenke and colleagues, with an educational ceasar from [employer]. Thrive Questionnaire Date Thrive assessed: 10/05/23 I am a: Patient What is your living situation today?: I have a steady place to live Within the past 12 months, did the food you bought not last and you didn't have the money to get more?: Never true Within the past 12 months, did you worry whether your food would run out before you got money to buy more?: Never true Do you have trouble paying for medicines?: No Do you have trouble getting transportation to medical appointments?: No Do you have trouble paying your heating and electricity bill?: No Do you have trouble taking care of your child, family member or friend?: No Do you have trouble with day-to-day activities such as bathing, preparing meals, shopping, managing finances, etc.?: No Are you currently unemployed and looking for a job?: No Are you interested in more education?: No Currently or been in a relationship where the following occur: no concerns reported THRIVE Score: 0 AUDIT C Alcohol Use Questionnaire (AUDIT-C) 1. How often do you have a drink containing alcohol?: 4 or more times a week 2. How many drinks containing alcohol do you have on a typical day when you are drinking?: 1 or 2 Total Score: 4 GERMÁN-7 AMB Questionnaire GERMÁN-7 Date GERMÁN - 7 assessed: 10/05/23 Feeling nervous, anxious, or on edge: 1 = Several days Not being able to stop or control worryin = Not at all Worrying too much about different things: 0 = Not at all Trouble relaxin = Not at all Being so restless that it is hard to sit still: 0 = Not at all Becoming easily annoyed or irritable: 0 = Not at all Feeling afraid as if something awful might happen: 0 = Not at all Total GERMÁN-7 score (0-4 normal; 5-9 mild; 10-14 moderate; 15-21 severe): 1 Source: Developed by Lizz Hoffman [employer] Kroenke and colleagues, with an educational ceasar from [employer]. Physical exam (Primary Care) Vital Signs: Last Vital Signs Pulse 85 10/05/23 13:21 BP 112/74 10/05/23 13:21 Pulse Ox 93 10/05/23 13:21 Oxygen Delivery Method Room Air 10/05/23 13:21 BMI result Body Mass Index 29.7 Tobacco/Smoking Status: Tobacco use Status Tobacco use date assessed 10/05/23 10/05/23 13:28 Patient Tobacco Use Status Former Tobacco user 10/05/23 13:26 Tobacco use type Cigarette 10/05/23 13:26 e-Cigarette/Vaping Use Never Used 10/05/23 13:26 PHQ-9: PHQ-9 Score PHQ-9: Total score 0 10/05/23 13:28 Depression Screening Interpretation: Negative Thrive Assessment: Date of Thrive Assessment Date Thrive assessed 10/05/23 10/05/23 13:28 Currently or been in a relationship where the following occur: no concerns reported Const General: cooperative and healthy appearing Nutritional Appearance: well nourished Orientation/consciousness: patient oriented x3 Limitations: no limitations HENMT Head: Yes normal to inspection Eyes General: appearance normal, both eyes and all related structures Neck Neck: Yes normal visual inspection Chest Chest palpation & inspection: normal palpation of entire chest wall Resp Effort & Inspection: normal respiratory effort Neuro General: patient oriented x3 Assessment and Plan Assessment & Plan (1) Schizophrenia: Code(s): F20.9 - Schizophrenia, unspecified Plan: Condition is stable. Continue current medications. (2) COPD (chronic obstructive pulmonary disease): Code(s): J44.9 - Chronic obstructive pulmonary disease, unspecified Plan: Condition is stable. Continue current medications. Albuterol filled in Medications: Refilled umeclidinium-vilanterol 62.5-25 mcg/actuation (Anoro Ellipta) 1 inh inhalation DAILY 60 ea 0RF ipratropium-albuterol 0.5 mg-3 mg(2.5 mg base)/3 mL 3 mL inhalation Q4-6H 30 days PRN 270 mL 6RF wheezing J44.9 - Chronic obstructive pulmonary disease, unspecified albuterol sulfate 90 mcg/actuation (Ventolin HFA) 2 puffs inhalation RQ4H 30 days PRN 1 g 0RF bronchospasm Coding Level of Care Code Est Pt Level 4 (49771) Complex EM visit Add On G2211 Diagnoses Schizophrenia F20.9 COPD (chronic obstructive pulmonary disease) J44.9
[2023-10-05 13:21] VITALS: BP 112/74; PULSE 85; O2SAT 93; BMI 29.7
== END 2023-10-05 13:55 | disposition home or self-care (01) ==
PROVIDERS: PCP Internal Medicine; Visit Provider Internal Medicine
DX: F20.9 Schizophrenia, unspecified (principal); J44.9 Chronic obstructive pulmonary disease, unspecified
CPT/HCPCS: 99214; G2211

== ENCOUNTER → 2023-11-29 23:59 | Outpatient (BNV) | payer OTHER, SELFPAY | PROVIDERS: PCP Internal Medicine; Visit Provider Internal Medicine | DX: J44.9 Chronic obstructive pulmonary disease, unspecified (principal); I25.10 Atherosclerotic heart disease of native coronary artery without angina pectoris; E72.20 Disorder of urea cycle metabolism, unspecified | CPT/HCPCS: G0180 ==

== ENCOUNTER 2023-12-06 09:40 | Outpatient (AMB) | payer OTHER, SELFPAY ==
[2023-12-06 10:06] VITALS: BP 92/60; PULSE 74; O2SAT 92; BMI 28.0
--- NOTE | 2023-12-06 10:06 | A.OFFPC_ITS ---
Vital Signs 12/06/23 10:06 Height 5 ft 10 in Weight 195 lb 0.6 oz BMI 28.0 BP 92/60 Blood Pressure Location Lt brachial Position Sitting Pulse 74 Pulse Source Pulse Oximeter Pulse Oximetry (%) 92 Oxygen Delivery Method Room Air Intake Visit Reasons: EDF [facility] per message 11/28 Intake Note: Patient is here to follow-up after a visit the emergency department at [facility] on 11/29/23 Volunteer Services Assistant Required: No Allergies No Known Allergies Allergy (Verified 12/12/23 10:15) Medication List - Last Reconciled 12/12/23 by Mitchell Pinto MD acetaminophen 650 mg (2 x 325 mg) PO Q6H PRN albuterol sulfate 90 mcg/actuation (Ventolin HFA) 2 puffs inhalation RQ4H PRN 30 days apixaban (Eliquis) 5 mg PO BID aspirin 81 mg PO DAILY atorvastatin (Lipitor) 40 mg PO QPM carvedilol 3.125 mg PO Q12H folic acid 1 mg PO DAILY furosemide 20 mg PO DAILY ipratropium-albuterol 0.5 mg-3 mg(2.5 mg base)/3 mL 3 mL inhalation Q4-6H PRN 30 days lurasidone (Latuda) 80 mg PO BEDTIME 30 days multivitamin 1 tab PO DAILY nicotine 7 mg transdermal DAILY pantoprazole (Protonix) 40 mg PO DAILY sacubitril-valsartan 24-26 mg (Entresto) 1 tab PO BID sertraline 100 mg PO DAILY 30 days thiamine HCl (vitamin B1) 100 mg PO DAILY trazodone 50 mg PO BEDTIME PRN 30 days umeclidinium-vilanterol 62.5-25 mcg/actuation (Anoro Ellipta) 1 inh inhalation DAILY varenicline 1 mg PO DAILY Tobacco use date assessed: 10/05/23 Fall risk assessment: No Falls in past year Last assessed Fall Risk: 12/06/23 Dental Screening Dental Screen Date: 10/05/23 HPI EDF [facility] per message 11/28 HPI Details 68-year-old male presents to the office for a hospital discharge follow-up. Patient was seen in the emergency room for exacerbation of his COPD. He had symptoms of wheezing, difficulty speaking full sentences and a nonproductive cough. In the emergency room he was given multiple treatments of albuterol and intravenous Solu-Medrol. Patient was discharged on p.o. antibiotics, tapering dose of prednisone. Patient has been doing very well. His symptoms have come down to baseline. Compliant with medications. Able to function and do his activities of daily living. Patient lives in the house where his daughter lives. [facility] Medical History Former smoker SIADH (syndrome of inappropriate ADH production) Paroxysmal atrial fibrillation Atrial flutter Mood disorder Heart failure COPD (chronic obstructive pulmonary disease) Hypertension Hyperlipidemia TIA (transient ischemic attack) Encounter to establish care Surgical History S/P CABG x 3 Social History Household Members: Family Household Members Other:: Niece and her daughter Housing: Apartment Do you presently have visiting nurse or other home services: Yes Alcohol intake: former Patient Tobacco Use Status: Former Tobacco user Tobacco use type: Cigarette Cigarette Packs Per Day: 1 Cigarettes Per Day: 20 Years Smoked: 53 years e-Cigarette/Vaping Use: Never Used Second Hand Smoke Exposure: Yes Substance Use Type: Crack/Cocaine and Marijuana service: No Current occupational status: retired Sexual orientation: Straight/Heterosexual Cognitive needs: Yes Hearing needs: No Vision needs: Yes (Glasses) Questionnaire Thrive Questionnaire Date Thrive assessed: 10/05/23 AUDIT C Alcohol Use Questionnaire (AUDIT-C) 1. How often do you have a drink containing alcohol?: 4 or more times a week 2. How many drinks containing alcohol do you have on a typical day when you are drinking?: 1 or 2 3. How often do you have six or more drinks on one occasion?: Never Total Score: 4 GERMÁN-7 AMB Questionnaire GERMÁN-7 Date GERMÁN - 7 assessed: 10/05/23 Feeling nervous, anxious, or on edge: 1 = Several days Not being able to stop or control worryin = Not at all Worrying too much about different things: 0 = Not at all Trouble relaxin = Not at all Being so restless that it is hard to sit still: 0 = Not at all Becoming easily annoyed or irritable: 0 = Not at all Feeling afraid as if something awful might happen: 0 = Not at all Total GERMÁN-7 score (0-4 normal; 5-9 mild; 10-14 moderate; 15-21 severe): 1 Source: Developed by Drs. Yaakov Hogan, Lizz Zelaya, Taran Frederick and colleagues, with an educational caesar from [employer]. Physical exam (Primary Care) Vital Signs: Last Vital Signs Pulse 74 12/06/23 10:06 BP 92/60 12/06/23 10:06 Pulse Ox 92 12/06/23 10:06 Oxygen Delivery Method Room Air 12/06/23 10:06 Care Plan Goal for BP management: Blood pressure is in range. BMI result Body Mass Index 28.0 Tobacco/Smoking Status: Tobacco use Status Tobacco use date assessed 10/05/23 12/06/23 10:07 Patient Tobacco Use Status Former Tobacco user 12/06/23 10:07 Tobacco use type Cigarette 12/06/23 10:07 e-Cigarette/Vaping Use Never Used 12/06/23 10:07 Thrive Assessment: Date of Thrive Assessment Date Thrive assessed 10/05/23 12/06/23 10:07 Const General: cooperative and healthy appearing Nutritional Appearance: well nourished Orientation/consciousness: patient oriented x3 Limitations: no limitations HENMT Head: Yes normal to inspection Eyes General: appearance normal, both eyes and all related structures Neck Neck: Yes normal visual inspection Chest Chest palpation & inspection: normal palpation of entire chest wall Resp Effort & Inspection: normal respiratory effort Neuro General: patient oriented x3 Assessment and Plan Assessment & Plan (1) Personal history of nicotine dependence: Code(s): Z87.891 - Personal history of nicotine dependence Plan: Counseling to quit smoking done. 10 minutes spent counseling the patient on the dangers of smoking, especially with his frequent exacerbations of his medical condition. (2) COPD (chronic obstructive pulmonary disease): Code(s): J44.9 - Chronic obstructive pulmonary disease, unspecified Plan: Condition has reverted to baseline. Antibiotic course has been completed. Continue the inhalers as prescribed. 15 minutes was spent reviewing his hospital record. Coding Level of Care Code Est Pt Level 4 (48572) Complex EM visit Add On G2211 Diagnoses Personal history of nicotine dependence Z87.891 COPD (chronic obstructive pulmonary disease) J44.9
== END 2023-12-06 11:02 | disposition home or self-care (01) ==
PROVIDERS: PCP Internal Medicine; Visit Provider Internal Medicine
DX: Z87.891 Personal history of nicotine dependence (principal); J44.9 Chronic obstructive pulmonary disease, unspecified
CPT/HCPCS: 99214; G2211

== ENCOUNTER 2024-01-10 14:35 | Outpatient (AMB) | payer OTHER, SELFPAY ==
--- NOTE | 2024-01-10 14:38 | A.OFFPC_ITS ---
Vital Signs 01/10/24 14:39 Height 5 ft 10 in Weight 196 lb 8 oz BMI 28.2 BP 110/72 Blood Pressure Location Lt brachial Position Sitting Pulse 81 Pulse Source Pulse Oximeter Pulse Oximetry (%) 96 Oxygen Delivery Method Room Air Intake Visit Reasons: 3mth f/u Intake Note: Patient is here to follow up on COPD, PAfib, Schizophrenia, HTN. Pipe Coverer Required: No Slash Trimmer: Not Required per policy Accompanied by: Self / Same As Patient Allergies No Known Allergies Allergy (Verified 01/11/24 06:31) Medication List - Last Reconciled 01/11/24 by Mitchell Pinto MD acetaminophen 650 mg (2 x 325 mg) PO Q6H PRN albuterol sulfate 90 mcg/actuation (Ventolin HFA) 2 puffs inhalation RQ4H PRN 30 days apixaban (Eliquis) 5 mg PO BID aspirin 81 mg PO DAILY atorvastatin (Lipitor) 40 mg PO QPM carvedilol 3.125 mg PO Q12H folic acid 1 mg PO DAILY furosemide 20 mg PO DAILY ipratropium-albuterol 0.5 mg-3 mg(2.5 mg base)/3 mL 3 mL inhalation Q4-6H PRN 30 days lurasidone (Latuda) 80 mg PO BEDTIME 30 days multivitamin 1 tab PO DAILY pantoprazole (Protonix) 40 mg PO DAILY sacubitril-valsartan 24-26 mg (Entresto) 1 tab PO BID sertraline 100 mg PO DAILY 30 days sertraline 50 mg PO DAILY thiamine HCl (vitamin B1) 100 mg PO DAILY trazodone 50 mg PO BEDTIME PRN 30 days umeclidinium-vilanterol 62.5-25 mcg/actuation (Anoro Ellipta) 1 inh inhalation DAILY varenicline 1 mg PO DAILY Tobacco use date assessed: 01/10/24 Fall risk assessment: No Falls in past year Last assessed Fall Risk: 01/10/24 Dental Screening Dental Screen Date: 10/05/23 HPI 3mth f/u HPI Details 68-year-old male presents to the office to discuss his chronic medical conditions. Patient comes to the office alone. He has quit smoking and no longer using the patches. Breathing is stable and compliant with all his medications. Patient reports that his mental health condition is stable. Compliant with medications and seeing the therapist/psychiatrist. He lives with a family member and is able to take care of his activities of daily living independently. He does not drive. However, patient is unable to clearly list all the medications he is taking and does not remember if he needs any refills. [facility] Medical History Former smoker SIADH (syndrome of inappropriate ADH production) Paroxysmal atrial fibrillation Atrial flutter Mood disorder Heart failure COPD (chronic obstructive pulmonary disease) Hypertension Hyperlipidemia TIA (transient ischemic attack) Encounter to establish care Surgical History S/P CABG x 3 Social History Household Members: Family Household Members Other:: Niece and her daughter Housing: Apartment Do you presently have visiting nurse or other home services: Yes Alcohol intake: former Patient Tobacco Use Status: Former Tobacco user Tobacco use type: Cigarette Cigarette Packs Per Day: 1 Cigarettes Per Day: 20 Years Smoked: 53 years e-Cigarette/Vaping Use: Never Used Second Hand Smoke Exposure: Yes Substance Use Type: Crack/Cocaine and Marijuana service: No Current occupational status: retired Sexual orientation: Straight/Heterosexual Cognitive needs: Yes Hearing needs: No Vision needs: Yes (Glasses) Questionnaire Thrive Questionnaire Date Thrive assessed: 10/05/23 Are you currently unemployed and looking for a job?: Yes GERMÁN-7 AMB Questionnaire GREMÁN-7 Date GERMÁN - 7 assessed: 10/05/23 Source: Developed by Drs. Yaakov Hogan, Lizz Zelaya, Taran Frederick and colleagues, with an educational ceasar from [employer]. Physical exam (Primary Care) Vital Signs: Last Vital Signs Pulse 81 01/10/24 14:39 BP 110/72 01/10/24 14:39 Pulse Ox 96 01/10/24 14:39 Oxygen Delivery Method Room Air 01/10/24 14:39 Care Plan Goal for BP management: Blood pressure is stable. BMI result Body Mass Index 28.2 Tobacco/Smoking Status: Tobacco use Status Tobacco use date assessed 01/10/24 01/10/24 14:42 Patient Tobacco Use Status Former Tobacco user 01/10/24 14:42 Tobacco use type Cigarette 01/10/24 14:42 e-Cigarette/Vaping Use Never Used 01/10/24 14:42 Thrive Assessment: Date of Thrive Assessment Date Thrive assessed 10/05/23 01/10/24 14:42 Const General: cooperative and healthy appearing Nutritional Appearance: well nourished Orientation/consciousness: patient oriented x3 Limitations: no limitations HENMT Head: Yes normal to inspection Eyes General: appearance normal, both eyes and all related structures Neck Neck: Yes normal visual inspection Chest Chest palpation & inspection: normal palpation of entire chest wall Resp Effort & Inspection: normal respiratory effort Neuro General: patient oriented x3 Assessment and Plan Assessment & Plan (1) Hypertension: Comment: Patient declines a screening colonoscopy or Cologuard. Risks explained. Code(s): I10 - Essential (primary) hypertension Plan: Blood pressure is in range. Continue current medications. (2) Heart failure: Code(s): I50.9 - Heart failure, unspecified Plan: Condition is stable. Continue current medications. Patient has a follow-up with the cargo broker. (3) Mood disorder: Code(s): F39 - Unspecified mood [affective] disorder Plan: Condition is stable. Continue current medications. (4) Paroxysmal atrial fibrillation: Code(s): I48.0 - Paroxysmal atrial fibrillation Plan: Continues to be in atrial fibrillation clinically. On the oral anticoagulants. (5) Schizophrenia: Code(s): F20.9 - Schizophrenia, unspecified Plan: Condition is stable. Patient declines a screening colonoscopy or Cologuard. Risks explained to the patient. Orders: Orders Basic Metabolic Panel Today F20.9 - Schizophrenia, unspecified, F39 - Unspecified mood [affective] disorder, I10 - Essential (primary) hypertension, I48.0 - Paroxysmal atrial fibrillation, I50.9 - Heart failure, unspecified Complete Blood Count no Diff Today F20.9 - Schizophrenia, unspecified, F39 - Unspecified mood [affective] disorder, I10 - Essential (primary) hypertension, I48.0 - Paroxysmal atrial fibrillation, I50.9 - Heart failure, unspecified Liver Panel Today F20.9 - Schizophrenia, unspecified, F39 - Unspecified mood [affective] disorder, I10 - Essential (primary) hypertension, I48.0 - Paroxysmal atrial fibrillation, I50.9 - Heart failure, unspecified Lipid Panel Today F20.9 - Schizophrenia, unspecified, F39 - Unspecified mood [affective] disorder, I10 - Essential (primary) hypertension, I48.0 - Paroxysmal atrial fibrillation, I50.9 - Heart failure, unspecified Thyroid Stimulating Hormone Today F20.9 - Schizophrenia, unspecified, F39 - Unspecified mood [affective] disorder, I10 - Essential (primary) hypertension, I48.0 - Paroxysmal atrial fibrillation, I50.9 - Heart failure, unspecified UA and rflx microscopic Today F20.9 - Schizophrenia, unspecified, F39 - Unspecified mood [affective] disorder, I10 - Essential (primary) hypertension, I48.0 - Paroxysmal atrial fibrillation, I50.9 - Heart failure, unspecified Medications: Discontinued nicotine Discontinued Reason: Doctor's Order 7 mg transdermal DAILY 14 ea 0RF Coding Level of Care Code Est Pt Level 4 (66719) Complex EM visit Add On G2211 Diagnoses Hypertension I10 Heart failure I50.9 Mood disorder F39 Paroxysmal atrial fibrillation I48.0 Schizophrenia F20.9
[2024-01-10 14:39] VITALS: BP 110/72; PULSE 81; O2SAT 96; BMI 28.2
== END 2024-01-10 15:18 | disposition home or self-care (01) ==
PROVIDERS: PCP Internal Medicine; Visit Provider Internal Medicine
DX: I50.9 Heart failure, unspecified (principal); F39 Unspecified mood [affective] disorder; I48.0 Paroxysmal atrial fibrillation; F20.9 Schizophrenia, unspecified; I10 Essential (primary) hypertension

== ENCOUNTER → 2024-01-10 14:35 | Outpatient (BNVA) | payer OTHER, SELFPAY | PROVIDERS: PCP Internal Medicine; Visit Provider Internal Medicine | DX: I11.0 Hypertensive heart disease with heart failure (principal); I50.9 Heart failure, unspecified; F39 Unspecified mood [affective] disorder; F20.9 Schizophrenia, unspecified; I48.0 Paroxysmal atrial fibrillation | CPT/HCPCS: 99212 ==

== ENCOUNTER 2024-09-27 13:56 | Outpatient (AMB) | payer OTHER, SELFPAY ==
[2024-09-27 13:59] VITALS: BP 122/67; PULSE 78; O2SAT 99
--- NOTE | 2024-09-27 13:59 | MHC.OFFVIS ---
Vital Signs 09/27/24 13:59 Height 5 ft 10 in BP 122/67 Blood Pressure Location Rt brachial Position Sitting Pulse 78 Pulse Source Pulse Oximeter Pulse Oximetry (%) 99 Oxygen Delivery Method Room Air Comment patient on stretcher Intake Visit Reasons: Pre-op DAGO Left hip Allergies No Known Allergies Allergy (Verified 09/27/24 14:09) HPI HPI Pre-op DAGO Left hip: Details: 69-year-old gentleman, recent 50+ pack-year smoker, previously followed for oxygen-dependent COPD and pulmonary nodules. Patient has been continued on Anoro and albuterol MDI with reasonable symptom control. Today he presented without supplemental oxygen. He also started on Spiriva for unclear reason. Patient is scheduled for hip surgery under general anesthesia. Patient has not performed his pulmonary function test or CT chest as previously requested. [facility] Medical History Former smoker SIADH (syndrome of inappropriate ADH production) Paroxysmal atrial fibrillation Atrial flutter Mood disorder Heart failure COPD (chronic obstructive pulmonary disease) Hypertension Hyperlipidemia TIA (transient ischemic attack) Encounter to establish care Surgical History S/P CABG x 3 Social History Household Members: Family Household Members Other:: Niece and her daughter Housing: Apartment Do you presently have visiting nurse or other home services: Yes Alcohol intake: former Patient Tobacco Use Status: Former Tobacco user Tobacco use type: Cigarette Cigarette Packs Per Day: 1 Cigarettes Per Day: 20 Years Smoked: 53 years e-Cigarette/Vaping Use: Never Used Second Hand Smoke Exposure: Yes Substance Use Type: Crack/Cocaine and Marijuana service: No Current occupational status: retired Sexual orientation: Straight/Heterosexual Cognitive needs: Yes Hearing needs: No Vision needs: Yes (Glasses) Review of Systems Const Denies daytime sleepiness, Denies excessive sweating, Denies fatigue, Denies fever(s), Denies lethargy, Denies malaise, Denies night sweats, Denies snoring and Denies weight loss Eyes Denies blurry vision and Denies itchy eyes ENT Denies nasal congestion, Denies post nasal drip, Denies sinus pain, Denies sinus pressure and Denies other ( Thrush) Card Denies chest pain, Denies pedal edema, Denies dyspnea, Denies orthopnea and Denies paroxysmal nocturnal dyspnea Resp Denies cough, Denies hemoptysis, Denies excessive phlegm production, Denies dyspnea, Denies snoring and Denies wheezing GI Denies abdominal pain and Denies heartburn Musc Denies myalgias, Denies arthralgias and Denies joint swelling Skin/Breast Denies rash Neuro Denies memory loss and Denies seizure-like activity Psych Denies abnormal sleep pattern, Denies anxiety and Denies memory loss Endo Denies excessive sweating, Denies fatigue and Denies heat intolerance Rowdy/Lymph Denies easy bruising Aller/Immun Denies itchy eyes, Denies seasonal rhinorrhea and Denies wheezing Physical Exam Vital Signs: Last Vital Signs Pulse 78 09/27/24 13:59 BP 122/67 09/27/24 13:59 Pulse Ox 99 09/27/24 13:59 Oxygen Delivery Method Room Air 09/27/24 13:59 Const General: no acute distress and alert Nutritional Appearance: not obese Orientation/consciousness: Other orientation findings ( oriented) HEENT Head: Yes atraumatic Eyes General: appearance normal, both eyes and all related structures Sclerae: sclerae normal EOM: EOMs intact bilaterally Neck Neck: Yes supple Lymphatic: no lymphadenopathy noted Resp Effort & Inspection: normal respiratory effort and no use of accessory muscles Auscultation: clear to auscultation bilaterally Cardio Rate: regular rate Rhythm: regular rhythm Heart sounds: no gallops, no murmurs and no rubs Skin General skin exam: other ( warm) Extrem General: No clubbing, No cyanosis and No edema Assessment & Plan Assessment & Plan (1) COPD (chronic obstructive pulmonary disease): Code(s): J44.9 - Chronic obstructive pulmonary disease, unspecified Category: Medical Plan: Baseline well controlled on Anoro and albuterol MDI. Discontinue Spiriva as a duplicate. PFT reordered. (2) Supplemental oxygen dependent: Code(s): Z99.81 - Dependence on supplemental oxygen Category: Medical Plan: Continue supplemental oxygen to maintain O2 saturation above 89% as needed. (3) Personal history of nicotine dependence: Code(s): Z87.891 - Personal history of nicotine dependence Category: Medical Plan: Lung cancer screening CT chest reordered. (4) Preop pulmonary/respiratory exam: Code(s): Z01.811 - Encounter for preprocedural respiratory examination Category: Medical Plan: At this time patient is at low risk for pulmonary perioperative complications for the proposed hip surgery under general anesthesia. Orders: Orders CT lung screening Today Z87.891 - Personal history of nicotine dependence PFT pulmonary function test Today J44.9 - Chronic obstructive pulmonary disease, unspecified Medications: Refilled umeclidinium-vilanterol 62.5-25 mcg/actuation (Anoro Ellipta) 1 inh inhalation DAILY 60 ea 6RF J44.9 - Chronic obstructive pulmonary disease, unspecified Coding Level of Care Code Est Pt Level 4 (05345) Complex EM visit Add On G2211 Diagnoses COPD (chronic obstructive pulmonary disease) J44.9 Supplemental oxygen dependent Z99.81 Personal history of nicotine dependence Z87.891 Preop pulmonary/respiratory exam Z01.811
== END 2024-09-27 14:18 | disposition home or self-care (01) ==
LOC: HO.HPS 13:57
PROVIDERS: PCP Internal Medicine; Visit Provider Internal Medicine Pulmonary Disease
DX: J44.9 Chronic obstructive pulmonary disease, unspecified (principal); Z99.81 Dependence on supplemental oxygen; Z87.891 Personal history of nicotine dependence; Z01.811 Encounter for preprocedural respiratory examination
CPT/HCPCS: 99214; G2211

== ENCOUNTER → 2024-09-27 13:56 | Outpatient (BNVA) | payer OTHER, SELFPAY | PROVIDERS: PCP Internal Medicine; Visit Provider Internal Medicine Pulmonary Disease | DX: Z01.811 Encounter for preprocedural respiratory examination (principal); J44.9 Chronic obstructive pulmonary disease, unspecified; R91.8 Other nonspecific abnormal finding of lung field; Z87.891 Personal history of nicotine dependence; Z99.81 Dependence on supplemental oxygen | CPT/HCPCS: 99212 ==

== ENCOUNTER 2024-09-30 13:15 | Outpatient (AMB) | payer OTHER, SELFPAY ==
[2024-09-30 13:31] VITALS: BP 100/84; PULSE 69; O2SAT 93
--- NOTE | 2024-09-30 13:31 | MHC.PC.OV ---
Vital Signs 09/30/24 13:31 Height 5 ft 10 in BP 100/84 Blood Pressure Location Lt brachial Position Sitting Pulse 69 Pulse Source Pulse Oximeter Pulse Oximetry (%) 93 Oxygen Delivery Method Room Air Intake Visit Reasons: L hip replacement-need pre op prior to surg sched Structural Analyst Required: No Accompanied by: program Allergies No Known Allergies Allergy (Verified 09/30/24 14:06) Medication List - Last Reconciled 09/30/24 by Garrett Casas PA-C acetaminophen 650 mg (2 x 325 mg) PO Q6H PRN albuterol sulfate 90 mcg/actuation (Ventolin HFA) 2 puffs inhalation RQ4H PRN 30 days amoxicillin 500 mg PO QID apixaban (Eliquis) 5 mg PO BID aspirin 81 mg PO DAILY atorvastatin (Lipitor) 40 mg PO QPM bisacodyl 10 mg WV DAILY PRN carvedilol 3.125 mg PO Q12H cetirizine (All Day Allergy (cetirizine)) 10 mg PO DAILY PRN divalproex ER mg PO divalproex ER 500 mg PO DAILY docusate sodium 100 mg PO BID folic acid 1 mg PO DAILY furosemide 20 mg PO DAILY guaifenesin (Daphney-Tussin) 100 mg PO Q4H PRN ibuprofen 800 mg PO Q8H ipratropium-albuterol 0.5 mg-3 mg(2.5 mg base)/3 mL 3 mL inhalation Q4-6H PRN 30 days lurasidone (Latuda) 80 mg PO BEDTIME 30 days melatonin 3 mg PO BEDTIME montelukast 10 mg PO DAILY multivitamin 1 tab PO DAILY omeprazole 20 mg PO DAILY pantoprazole (Protonix) 40 mg PO DAILY polyethylene glycol 3350 17 grams PO DAILY sacubitril-valsartan 24-26 mg (Entresto) 1 tab PO BID sertraline 100 mg PO DAILY 30 days sertraline 50 mg PO DAILY sodium phosphates 19-7 gram/118 mL (Fleet Enema) 118 mL WV DAILY PRN thiamine HCl (vitamin B1) 100 mg PO DAILY tiotropium bromide 2.5 mcg/actuation (Spiriva Respimat) 2 puffs inhalation DAILY trazodone 50 mg PO BEDTIME PRN 30 days umeclidinium-vilanterol 62.5-25 mcg/actuation (Anoro Ellipta) 1 inh inhalation DAILY varenicline tartrate 1 mg PO DAILY Tobacco use date assessed: 09/30/24 Last assessed Fall Risk: 09/30/24 Dental Screening Dental Screen Date: 09/30/24 HPI L hip replacement-need pre op prior to surg sched HPI Details Patient is a 69-year-old male here today for a preop visit. Patient is due for left hip placement. Patient broke his left hip via a fall. Now living in a short term rehab This is the 1st time meeting 69-year-old male with a past medical history significant for heart failure, hypertension, coronary artery disease, COPD, hyperlipidemia and schizophrenia. Today patient presents via ambulance on a stretcher. Patient is a poor historian and gives little information. It looks like he is seeing orthopedic at [facility] ? Dr. Hobbs. Did get an EKG in August 2024 that shows first-degree AV block with a rate of 64. COPD-- has recently seen his outbound sales specialist and has gotten clearance from a pulmonology point of view. [facility] Medical History Former smoker SIADH (syndrome of inappropriate ADH production) Paroxysmal atrial fibrillation Atrial flutter Mood disorder Heart failure COPD (chronic obstructive pulmonary disease) Hypertension Hyperlipidemia TIA (transient ischemic attack) Encounter to establish care Surgical History S/P CABG x 3 Social History Household Members: Family Household Members Other:: Niece and her daughter Housing: Apartment Do you presently have visiting nurse or other home services: Yes Alcohol intake: former Patient Tobacco Use Status: Former Tobacco user Tobacco use type: Cigarette Cigarette Packs Per Day: 1 Cigarettes Per Day: 20 Years Smoked: 53 years e-Cigarette/Vaping Use: Never Used Second Hand Smoke Exposure: Yes Substance Use Type: Crack/Cocaine and Marijuana service: No Current occupational status: retired Sexual orientation: Straight/Heterosexual Cognitive needs: Yes Hearing needs: No Vision needs: Yes (Glasses) Questionnaire PHQ-9 Over the last 2 weeks, how often have you been bothered by any of the following problems? 1. Little interest or pleasure in doing things: not at all 2. Feeling down, depressed, or hopeless: not at all 3. Trouble falling or staying asleep, or sleeping too much: not at all 4. Feeling tired or having little energy: not at all 5. Poor appetite or overeating: not at all 6. Feeling bad about yourself - or that you are a failure or have let yourself or your family down: not at all 7. Trouble concentrating on things, such as reading the newspaper or watching television: not at all 8. Moving or speaking so slowly that other people could have noticed. Or the opposite - being so fidgety or restless that you have been moving around a lot more than usual: not at all 9. Thoughts that you would be better off or of hurting yourself in some way: not at all Total score: 0 Depression Screening Interpretation: Negative Depression Screening Done: Yes 35197 - PHQ-9 Billing: Yes Source: Developed by Drs. Yaakov Hogan, Lizz Zelaya, Taran Frederick and colleagues, with an educational ceasar from [employer]. Thrive Questionnaire Date Thrive assessed: 09/30/24 I am a: Patient What is your living situation today?: I have a steady place to live Within the past 12 months, did the food you bought not last and you didn't have the money to get more?: Never true Within the past 12 months, did you worry whether your food would run out before you got money to buy more?: Never true Do you have trouble paying for medicines?: No Do you have trouble getting transportation to medical appointments?: No Do you have trouble paying your heating and electricity bill?: No Do you have trouble taking care of your child, family member or friend?: No Do you have trouble with day-to-day activities such as bathing, preparing meals, shopping, managing finances, etc.?: No Are you currently unemployed and looking for a job?: Yes Are you interested in more education?: No Please select the resources that you would like help with: Job search/training Currently or been in a relationship where the following occur: No concerns reported THRIVE Score: 0 AUDIT C Alcohol Use Questionnaire (AUDIT-C) 1. How often do you have a drink containing alcohol?: 4 or more times a week 2. How many drinks containing alcohol do you have on a typical day when you are drinking?: 1 or 2 3. How often do you have six or more drinks on one occasion?: Never Total Score: 4 Score Reviewed/Action Taken: Yes GERMÁN-7 AMB Questionnaire GERMÁN-7 Date GERMÁN - 7 assessed: 09/30/24 Feeling nervous, anxious, or on edge: 0 = Not at all Not being able to stop or control worryin = Not at all Worrying too much about different things: 0 = Not at all Trouble relaxin = Not at all Being so restless that it is hard to sit still: 0 = Not at all Becoming easily annoyed or irritable: 0 = Not at all Feeling afraid as if something awful might happen: 0 = Not at all Total GERMÁN-7 score (0-4 normal; 5-9 mild; 10-14 moderate; 15-21 severe): 0 Source: Developed by Drs. Yaakov Hogan, Lizz Zelaya, Taran Frederick and colleagues, with an educational ceasar from [employer]. GERMÁN-7 Assessment Billing GERMÁN-7 Assessment Tool: GERMÁN-7 Assessment 54994 Review of Systems Const Denies headache(s) Eyes Denies loss of vision ENT Denies vertigo, Denies dizziness, Denies headache(s) and Denies sore throat Card Denies chest pain, Denies leg edema and Denies lightheadedness Resp Denies cough, Denies hemoptysis and Denies wheezing GI Denies abdominal pain, Denies melena, Denies constipation, Denies diarrhea and Denies vomiting Denies dysuria, Denies urinary frequency and Denies urinary urgency Musc Denies arthralgias, Denies joint swelling, Denies numbness and Denies tingling Neuro Denies Abnormal speech present, Denies behavioral changes, Denies vertigo, Denies dizziness, Denies headache(s), Denies loss of vision, Denies memory loss, Denies numbness and Denies tingling Psych Denies anxiety, Denies behavioral changes, Denies depression, Denies memory loss and Denies panic attacks Rowdy/Lymph Denies easy bleeding and Denies easy bruising Aller/Immun Denies wheezing Physical exam (Primary Care) Vital Signs: Last Vital Signs Pulse 69 09/30/24 13:31 BP 100/84 09/30/24 13:31 Pulse Ox 93 09/30/24 13:31 Oxygen Delivery Method Room Air 09/30/24 13:31 Tobacco/Smoking Status: Tobacco use Status Tobacco use date assessed 09/30/24 09/30/24 13:36 Patient Tobacco Use Status Former Tobacco user 09/30/24 13:36 Tobacco use type Cigarette 09/30/24 13:36 e-Cigarette/Vaping Use Never Used 09/30/24 13:36 PHQ-9: PHQ-9 Score PHQ-9: Total score 0 09/30/24 14:07 Depression Screening Interpretation: Negative Thrive Assessment: Date of Thrive Assessment Date Thrive assessed 09/30/24 09/30/24 13:36 Currently or been in a relationship where the following occur: No concerns reported Const General: healthy appearing, no acute distress, alert and awake Nutritional Appearance: well nourished Orientation/consciousness: oriented to person, oriented to place and oriented to time HENMT Ears: TM's normal bilaterally General nose exam: Normal nasal mucous membranes and turbinates present Eyes Conjunctivae: conjunctivae normal Sclerae: sclerae normal Pupils: Equal, round and reactive pupils present Neck Neck: Yes no lymphadenopathy and Yes no JVD Thyroid: Thyroid normal Carotids: no bruits Resp Effort & Inspection: normal respiratory effort and not tachypneic Auscultation: no crackles, no rales, no rhonchi and no wheezes Cardio Rate: regular rate Rhythm: regular rhythm Heart sounds: no murmurs and normal S1 and S2 GI Palpation (GI): Soft to palpation, nontender, no hepatomegaly and no splenomegaly Auscultation: normal bowel sounds Skin General skin exam: no rashes or lesions noted and dry skin Neuro General: oriented to person, oriented to place and oriented to time Cranial nerves: Yes Equal, round and reactive pupils present Speech: No Abnormal speech present Gait exam (Neuro): Normal gait present Motor exam (neuro): no tremor noted Extrem Other: LYING IN HIS STRETCHER, LEFT LEG IN EXTERNALLY ROTATED POSITION Right upper extremity: full ROM Left upper extremity: full ROM Right lower extremity: full ROM; no edema Left lower extremity: full ROM; no edema Psych Mental Status: mental status grossly normal Speech and movement: Normal speech and movement present Affect: normal affect Attitude: cooperative Thought process: Normal thought process present Coding Level of Care Code Est Pt Level 3 (81779) Diagnoses Pre-op evaluation Z01.818 Additional Codes GERMÁN-7 Assessment Billing - GERMÁN-7 Assessment Tool: GERMÁN-7 Assessment 92181 ([id number]) PHQ-9 - 50184 - PHQ-9 Billing: Yes ([id number]) Assessment & Plan Assessment & Plan (1) Pre-op evaluation: Code(s): Z01.818 - Encounter for other preprocedural examination Category: Medical Plan: Patient has multiple medical conditions, followed by oil spraying machine operator at [facility] and a outbound sales specialist here in [facility]. Has a apparently gotten clearance by his oil spraying machine operator, recent EKG done in August 2024 showing first-degree A V block otherwise stable. Patient medically clear for needed left hip surgery.
--- OUTSIDE RECORDS SUMMARY | 2024-09-30 14:57 | XMS_ITS | Encounter Summary ---
Author Organization [facility] Address [address] [place] [address] Care Team Providers Care Group Tester Name Role Phone Geena Lee MD Primary Care Provider + Encounter Details Date Type Department Care Team (Late st Contact Info) Description 04/16/2024 Lab Requisition [facility] - Main Lab [address] [place] [address] Geena Lee MD [address] [phone] Hyperlipidemia, unspecified; Essential (primary) hypertension Social History Tobacco Use Types Packs/Day Years Used Date Smoking Tobacco: Every Day Cigarettes Smokeless Tobacco: Never Alcohol Use Standard Drinks/Week Comments Not Currently 0 (1 standard drink = 0.6 oz pur e alcohol) Sex and Gender Information Value Date Recorded Sex Assigned at Not on file Legal Sex Male 3:51 PM EST Gender Identity Not on file Sexual Orientation Not on file documented as of this encounter Plan of Treatment Not on file documented as of this encounter Procedures Procedure Name Priority Date/Time Associated Diagnosis Comments BASIC METABOLIC PANEL Routine 04/18/2024 8:22 AM EST Hyperlipidemia, unspecified Essential (primary) hypertension documented in this encounter Results * (ABNORMAL) Basic metabolic panel (04/18/2024 8:22 AM EST) Sodium 132(L) 133 - 145 mmol/L LAB CHEMISTRY METHOD 04/18/2024 12:51 PM EST [facility] Potassium 4.0 3.5 - 5.5 mmol/L LAB CHEMISTRY METHOD 04/18/2024 12:51 PM [facility] Chloride 97 96 - 110 mmol/L LAB CHEMISTRY METHOD 04/18/2024 12:51 PM [facility] CO2 29 21 - 32 mmol/L LAB CHEMISTRY METHOD 04/18/2024 12:51 PM [facility] Anion Gap 6 3 - 11 LAB CHEMISTRY METHOD 04/18/2024 12:51 PM [facility] Glucose 87 70 - 100 mg/dL LAB CHEMISTRY METHOD 04/18/2024 12:51 PM [facility] BUN 15 5 - 25 mg/dL LAB CHEMISTRY METHOD 04/18/2024 12:51 PM [facility] Creatinine 0.84 0.70 - 1.30 mg/dL LAB CHEMISTRY METHOD 04/18/2024 12:51 PM [facility] eGFR 95 >=60 mL/min/1. 73m2 LAB CHEMISTRY METHOD 04/18/2024 12:51 PM [facility] Comment:Calculation based on the??Chronic Kidney Disease Epidemiology Collaboration (CKD-EPI) equation refit??without adjustment for race. BUN/Creatinine Ratio 17.9 LAB CHEMISTRY METHOD 04/18/2024 12:51 PM [facility] Calcium 8.9 8.5 - 10.5 mg/dL LAB CHEMISTRY METHOD 04/18/2024 12:51 PM [facility] Blood Venous blood specimen / Unknown 04/18/2024 8:22 AM EST 04/18/2024 11:52 AM EST us Geena Lee MD LAB BLOOD ORDERABLES Fin al Result [facility] [address] [place] [address], documented in this encounter Visit Diagnoses Diagnosis Hyperlipidemia, unspecified Essential (primary) hypertension Unspecified essential hypertension documented in this encounter Care Teams Group Tester Relationship Specialty Start Date End Date Geena Lee MD [address] [id number] PCP - General Family Medicine 03/20/24 documented as of this encounter
== END 2024-09-30 14:22 | disposition home or self-care (01) ==
LOC: HO.HMCH 13:16
PROVIDERS: PCP Internal Medicine; Visit Provider Physician Assistant
DX: Z01.818 Encounter for other preprocedural examination (principal)

== ENCOUNTER → 2024-09-30 13:15 | Outpatient (BNVA) | payer OTHER, SELFPAY | PROVIDERS: PCP Internal Medicine; Visit Provider Physician Assistant | DX: Z01.818 Encounter for other preprocedural examination (principal); I11.0 Hypertensive heart disease with heart failure; I50.9 Heart failure, unspecified; I25.10 Atherosclerotic heart disease of native coronary artery without angina pectoris; J44.9 Chronic obstructive pulmonary disease, unspecified; E78.5 Hyperlipidemia, unspecified; F20.9 Schizophrenia, unspecified; Z13.30 Encounter for screening examination for mental health and behavioral disorders, unspecified; Z13.31 Encounter for screening for depression | CPT/HCPCS: 96127; 99212 ==

== ENCOUNTER 2024-10-07 13:45 | Outpatient (AMB) | payer OTHER, SELFPAY ==
[2024-10-07 13:56] VITALS: BP 110/60; PULSE 61
--- NOTE | 2024-10-07 13:56 | A.OFFVIS_ITS ---
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 NEOS/ Augusto - afib Allergies No Known Allergies Allergy (Verified 09/30/24 14:06) Medication List - Last Reconciled 10/07/24 by Rayray Shah MD acetaminophen 650 mg (2 x 325 mg) PO Q6H PRN albuterol sulfate 90 mcg/actuation (Ventolin HFA) 2 puffs inhalation RQ4H PRN 30 days amoxicillin 500 mg PO QID apixaban (Eliquis) 5 mg PO BID aspirin 81 mg PO DAILY atorvastatin (Lipitor) 40 mg PO QPM bisacodyl 10 mg VA DAILY PRN carvedilol 3.125 mg PO Q12H cetirizine (All Day Allergy (cetirizine)) 10 mg PO DAILY PRN divalproex ER mg PO divalproex ER 500 mg PO DAILY docusate sodium 100 mg PO BID folic acid 1 mg PO DAILY furosemide 20 mg PO DAILY guaifenesin (Daphney-Tussin) 100 mg PO Q4H PRN ibuprofen 800 mg PO Q8H ipratropium-albuterol 0.5 mg-3 mg(2.5 mg base)/3 mL 3 mL inhalation Q4-6H PRN 30 days lurasidone (Latuda) 80 mg PO BEDTIME 30 days melatonin 3 mg PO BEDTIME montelukast 10 mg PO DAILY multivitamin 1 tab PO DAILY omeprazole 20 mg PO DAILY pantoprazole (Protonix) 40 mg PO DAILY polyethylene glycol 3350 17 grams PO DAILY sacubitril-valsartan 24-26 mg (Entresto) 1 tab PO BID sertraline 100 mg PO DAILY 30 days sertraline 50 mg PO DAILY sodium phosphates 19-7 gram/118 mL (Fleet Enema) 118 mL VA DAILY PRN thiamine HCl (vitamin B1) 100 mg PO DAILY tiotropium bromide 2.5 mcg/actuation (Spiriva Respimat) 2 puffs inhalation DAILY trazodone 50 mg PO BEDTIME PRN 30 days umeclidinium-vilanterol 62.5-25 mcg/actuation (Anoro Ellipta) 1 inh inhalation DAILY varenicline tartrate 1 mg PO DAILY HPI Comments Details: Alberto is here for consultation regarding preoperative risk stratification for hip surgery. He comes in a stretcher. Poor historian. Available documentation reviewed from [facility]. Per medical note, history of schizophrenia, depression, history of polysubstance abuse, EtOH, cocaine and stimulants, paroxysmal atrial fibrillation/flutter, ischemic cardiomyopathy/CHF/CAD, CABG from 2006, COPD, chronic hyponatremia. It seems that he had left femoral neck fracture for which she underwent screw fixation but there was failure and needs another surgery. Patient is here in a stretcher and it seems he has got minimal ambulation if any. He denies any clear-cut symptoms like angina shortness of breath. There is no other cardiac information available and he cannot state when was the last time he saw any chemical laboratory scientist. [facility], LAT[facility] Medical History (Updated 10/07/24 @ 15:28 by Rayray Shah MD) Atrial flutter Ischemic cardiomyopathy Former smoker SIADH (syndrome of inappropriate ADH production) Paroxysmal atrial fibrillation Mood disorder Heart failure COPD (chronic obstructive pulmonary disease) Hypertension Hyperlipidemia TIA (transient ischemic attack) Encounter to establish care Surgical History (Updated 10/07/24 @ 14:36 by Rayray Shah MD) S/P CABG x 3 Social History Household Members: Family Household Members Other:: Niece and her daughter Housing: Apartment Do you presently have visiting nurse or other home services: Yes Alcohol intake: former Patient Tobacco Use Status: Former Tobacco user Tobacco use type: Cigarette Cigarette Packs Per Day: 1 Cigarettes Per Day: 20 Years Smoked: 53 years e-Cigarette/Vaping Use: Never Used Second Hand Smoke Exposure: Yes Substance Use Type: Crack/Cocaine and Marijuana service: No Current occupational status: retired Sexual orientation: Straight/Heterosexual Cognitive needs: Yes Hearing needs: No Vision needs: Yes (Glasses) Review of Systems Const Denies weakness ENT Denies dizziness Card Denies chest pain, Denies chest pain with activity, Denies syncope, Denies rapid heart rate, Denies pedal edema, Denies edema, Denies leg edema, Denies lightheadedness, Denies palpitations, Denies dyspnea, Denies dyspnea on exertion and Denies orthopnea Resp Denies cough, Denies dyspnea and Denies dyspnea on exertion GI Denies hematochezia and Denies change in stool character Musc Denies abnormal gait, Denies muscle cramps, Denies muscle weakness, Denies numbness, Denies radiating pain into limb and Denies tingling Neuro Denies abnormal gait, Denies dizziness, Denies syncope, Denies numbness, Denies tingling and Denies weakness Endo Denies palpitations Physical Exam Vital Signs: Last Vital Signs Pulse 61 10/07/24 13:56 BP 110/60 10/07/24 13:56 Const General: comfortable and no acute distress Orientation/consciousness: patient oriented x3 HEENT Other: Unremarkable Head: Yes normal to inspection Neck Neck: Yes normal visual inspection Chest Chest palpation & inspection: normal inspection of the chest Resp Auscultation: clear to auscultation bilaterally Cardio Palpation: normal PMI Heart sounds: S1 normal heart sound present, S2 normal heart sound present, no gallops, no murmurs and no rubs GI Palpation (GI): Soft to palpation Back/Spine/Pelvis Other: unremarkable Skin General skin exam: no rashes or lesions noted Neuro General: patient oriented x3 Extrem General: Yes normal to inspection Psych Mental Status: mental status grossly normal Office Procedures EKG Details: EKG with probable sinus rhythm at 61/Min; possible old inferior infarct; [place] [address]-[id number], Complete Assessment & Plan Assessment & Plan (1) Preoperative cardiovascular examination: Code(s): Z01.810 - Encounter for preprocedural cardiovascular examination Category: Medical (2) Status post aorto-coronary artery bypass graft: Code(s): Z95.1 - Presence of aortocoronary bypass graft Category: Surgical (3) Atrial flutter: Code(s): I48.92 - Unspecified atrial flutter Category: Medical (4) Ischemic cardiomyopathy: Code(s): I25.5 - Ischemic cardiomyopathy Category: Medical Plan Extensive cardiac as well as medical history but no recent objective data. In a prior EKG from 2022, he was in atrial flutter at a rate of 72/Min. Today, rhythm is difficult to say but likely sinus rhythm with low amplitude P-waves. He needs comprehensive assessment with an echocardiogram, myocardial perfusion imaging study as well as Holter monitor. Once these are completed and reviewed, we can make further suggestions regarding operative risk. Discussion Notes During the visit, I explained to the patient the importance of conducting a comprehensive cardiac evaluation to determine his cardiac fitness for the planned hip surgery. We discussed the plan to carry out an echocardiogram, stress test, and Holter monitoring to gain insights into his current cardiac status, especially in the context of his history of coronary artery bypass grafting. I highlighted the significance of pinpointing any potential cardiac risks to ensure the safety and success of the orthopedic procedure. The potential risks and benefits of the diagnostic studies were thoroughly explained, and the patient provided his consent to proceed with the planned cardiac assessments. Patient was informed and verbally consented to the use of an ambient scribe for clinic note documentation during this visit. Orders: Orders NM cardiolite stress test Today R07.2 - Precordial pain, Z95.1 - Presence of aortocoronary bypass graft ECG 3 day holter monitor Today I48.0 - Paroxysmal atrial fibrillation CA echo transthoracic complete Today I25.10 - Atherosclerotic heart disease of [place] coronary artery without angina pectoris, Z95.1 - Presence of aortocoronary bypass graft CA lexiscan stress w jhonny Today Z01.810 - Encounter for preprocedural cardiovascular examination, Z95.1 - Presence of aortocoronary bypass graft Patient Instructions: - Follow instructions for scheduled echocardiogram, stress test, and Holter monitoring. - Report any new chest pain, difficulty breathing, or palpitations immediately. - Adhere to all pre-operative recommendations provided by the cardiology and orthopedic teams. - Maintain contact for updates on test results and further instructions regarding surgical clearance. Coding Level of Care Code New Pt Level 4 (09257) Complex EM visit Add On G2211 Diagnoses Preoperative cardiovascular examination Z01.810 Status post aorto-coronary artery bypass graft Z95.1 Atrial flutter I48.92 Ischemic cardiomyopathy I25.5 CPT Codes EKG - CPT: 21023-[id number], Complete ([id number])
--- OUTSIDE RECORDS SUMMARY | 2024-10-07 15:22 | XMS_ITS | Encounter Summary ---
Author Organization [facility] Address [address] [place] [address] Care Team Providers Care Turn Down Man Name Role Phone Geena eLe MD Primary Care Provider + Encounter Details Date Type Department Care Team (Late st Contact Info) Description 04/16/2024 Lab Requisition [facility] - Main Lab [address] [place] [address] Geena Lee MD [address] [id number] Hyperlipidemia, unspecified; Essential (primary) hypertension Social History [...] LAB CHEMISTRY METHOD 04/18/2024 12:51 PM EST [facility] Potassium 4.0 3.5 - 5.5 mmol/L LAB CHEMISTRY METHOD 04/18/2024 12:51 PM [facility] Chloride 97 96 - 110 mmol/L LAB CHEMISTRY METHOD 04/18/2024 12:51 PM [facility] CO2 29 21 - 32 mmol/L LAB CHEMISTRY METHOD 04/18/2024 12:51 PM [facility] Anion Gap 6 3 - 11 LAB CHEMISTRY METHOD 04/18/2024 12:51 PM [facility] Glucose 87 70 - 100 mg/dL LAB CHEMISTRY METHOD 04/18/2024 12:51 PM [facility] BUN 15 5 - 25 mg/dL LAB CHEMISTRY METHOD 04/18/2024 12:51 PM [facility] Creatinine 0.84 0.70 - 1.30 mg/dL LAB CHEMISTRY METHOD 04/18/2024 12:51 PM [facility] eGFR 95 >=60 mL/min/1. 73m2 LAB CHEMISTRY METHOD 04/18/2024 12:51 PM [facility] Comment:Calculation based on the??Chronic Kidney Disease Epidemiology Collaboration (CKD-EPI) equation refit??without adjustment for race. BUN/Creatinine Ratio 17.9 LAB CHEMISTRY METHOD 04/18/2024 12:51 PM [facility] Calcium 8.9 8.5 - 10.5 mg/dL LAB CHEMISTRY METHOD 04/18/2024 12:51 PM [facility] Blood Venous blood specimen / Unknown 04/18/2024 8:22 AM EST 04/18/2024 11:52 AM EST us Geena Lee MD LAB BLOOD ORDERABLES Fin al Result [facility] [address] [place] [address], documented in this encounter Visit Diagnoses Diagnosis Hyperlipidemia, unspecified Essential (primary) hypertension Unspecified essential hypertension documented in this encounter Care Teams Turn Down Man Relationship Specialty Start Date End Date Geena Lee MD [address] [address] PCP - General Family Medicine 03/20/24 documented as of this encounter
== END 2024-10-07 14:46 | disposition home or self-care (01) ==
PROVIDERS: PCP Internal Medicine; Visit Provider Internal Medicine
DX: Z01.810 Encounter for preprocedural cardiovascular examination (principal); Z95.1 Presence of aortocoronary bypass graft; I48.92 Unspecified atrial flutter; I25.5 Ischemic cardiomyopathy
CPT/HCPCS: 93010; 99204; G2211

== ENCOUNTER → 2024-10-07 13:45 | Outpatient (BNVA) | payer OTHER, SELFPAY | PROVIDERS: PCP Internal Medicine; Visit Provider Internal Medicine | DX: Z01.810 Encounter for preprocedural cardiovascular examination (principal); Z95.1 Presence of aortocoronary bypass graft; I48.92 Unspecified atrial flutter; I25.5 Ischemic cardiomyopathy | CPT/HCPCS: 93005; 99202 ==

== ENCOUNTER 2024-10-26 15:46 | Inpatient (IN) | payer OTHER, SELFPAY ==
--- NOTE | ~2024-10-26 | XR_ITS ---
CLINICAL HISTORY: cough 1 view chest x-ray Comparison: None provided Findings: Right retrocardiac atelectasis. No significant pleural effusion or pneumothorax. Prominent cardiac silhouette. No acute fracture. Median sternotomy wires. Rotation limits evaluation. IMPRESSION: Right retrocardiac atelectasis. This document has been electronically signed by: Vinod Hendricks MD on 10/26/2024 17:20:26
[2024-10-26 16:05] VITALS: BP 81/46; PULSE 68; RESP 14; TEMP 37.3; O2SAT 95
--- NOTE | 2024-10-26 16:05 | ECG_ITS ---
Test Reason : altered mental Blood Pressure : */* mmHG Vent. Rate : 65 BPM Atrial Rate : 65 BPM P-R Int : 238 ms QRS Dur : 126 ms QT Int : 442 ms P-R-T Axes : -17 51 23 degrees QTcB Int : 459 ms Sinus rhythm with 1st degree A-V block Non-specific intra-ventricular conduction block Nonspecific T wave abnormality Abnormal ECG When compared with ECG of 06-Feb-2023 13:27, Sinus rhythm has replaced Atrial flutter Nonspecific T wave abnormality now evident in Lateral leads Referred By: Generic ED Physician Electronically Signed By: JONATHAN ST MD
--- NOTE | 2024-10-26 16:08 | ED_ITS ---
HPI - General Adult General Chief complaint: Weakness Stated complaint: hypotension,ams, ?sepsis Time Seen by Provider: 10/26/24 16:07 Source: patient, EMS, RN notes reviewed and old records reviewed Mode of arrival: EMS Limitations: altered mental status History of Present Illness ED Provider: Kika HPI narrative: Patient is a 69-year-old male with reported history of TIA, COPD, HTN, HLD, heart failure, paroxysmal afib/flutter, SIADH, ischemic cardiomyopathy, s/p CABG, schizophrenia presenting to the ED from SNF for hypotension, bradycardia. Per EMS patient was initially unresponsive, pale, woke with stimuli. Patient had been agitated with staff prior. Per staff at SNF patient is confused at baseline. Patient unable to provide HPI/PMHX. MD complaint: hypotension Related Data Home Medications ?Medication ?Instructions ?Recorded ?Confirmed sertraline 50 mg tablet 50 mg PO DAILY 01/10/2409/22 amoxicillin 500 mg tablet 500 mg PO QID 09/30/2410/07 bisacodyl 10 mg rectal suppository 10 mg SD DAILY PRN 09/30/24 10/07/24 cetirizine 10 mg tablet (All Day 10 mg PO DAILY PRN 10/07/24 Allergy (cetirizine)) divalproex 250 mg tablet,extended mg PO 09/30/2410/07 release 24 hr divalproex 500 mg tablet,extended 500 mg PO DAILY 01/1610/07/24 release 24 hr docusate sodium 100 mg tablet 100 mg PO BID 09/30/24 0 10/07/24 guaifenesin 100 mg/5 mL oral 100 mg PO Q4H PRN 5 10/07/24 liquid (Daphney-Tussin) ibuprofen 800 mg tablet 800 mg PO Q8H 09/30/2410/07 melatonin 3 mg tablet 3 mg PO BEDTIME 09/30/24 montelukast 10 mg tablet 10 mg PO DAILY 09/30/2409/22 omeprazole 20 mg capsule,delayed 20 mg PO DAILY 10/07/24 release polyethylene glycol 3350 17 17 g PO DAILY 09/30/24 gram/dose oral powder sodium phosphates 19 gram-7 118 ml SD DAILY PRN 10/07/24 gram/118 mL enema (Fleet Enema) tiotropium bromide 2.5 2 puff inhalation DAILY 01/1610/07/24 mcg/actuation mist for inhalation (Spiriva Respimat) Previous Rx's ?Medication ?Instructions ?Recorded apixaban 5 mg tablet (Eliquis) 5 mg PO BID #60 tabs varenicline tartrate 1 mg tablet 1 mg PO DAILY #56 tab s 02/14/23 acetaminophen 325 mg tablet 650 mg (2 x 325 mg) PO Q6H PRN 04/05/23 pain #240 tabs aspirin 81 mg capsule 81 mg PO DAILY #90 caps 03/24 07/14 atorvastatin 40 mg tablet (Lipitor) 40 mg PO QPM #90 t abs 04/05/23 folic acid 1 mg tablet 1 mg PO DAILY #30 tabs 04/05 furosemide 20 mg tablet 20 mg PO DAILY #30 tabs 03/24 07/14 multivitamin 1 tab PO DAILY #90 tabs 03/24 07/14 pantoprazole 40 mg tablet,delayed 40 mg PO DAILY #30 t abs 04/05/23 release (Protonix) sacubitril 24 mg-valsartan 26 mg 1 tab PO BID #60 tabs 04/05/23 tablet (Entresto) sertraline 100 mg tablet 100 mg PO DAILY 30 days #30 tabs 04/05/23 thiamine HCl (vitamin B1) 100 mg 100 mg PO DAILY #90 t abs 04/05/23 tablet trazodone 50 mg tablet 50 mg PO BEDTIME PRN sleep 3 0 days 04/05/23 #30 tabs carvedilol 3.125 mg tablet 3.125 mg PO Q12H #60 tabs 1 06/21/22 lurasidone 80 mg tablet (Latuda) 80 mg PO BEDTIME 30 d ays #30 tabs 05/01/23 albuterol sulfate 90 mcg/actuation 2 puff inhalation R Q4H PRN 10/05/23 aerosol inhaler (Ventolin HFA) bronchospasm 30 days #1 g ipratropium 0.5 mg-albuterol 3 mg 3 ml inhalation Q4-6 H PRN wheezing 10/05/23 (2.5 mg base)/3 mL nebulization 30 days #270 mL soln umeclidinium 62.5 mcg-vilanterol 1 inh inhalation YVES Y #60 ea 09/27/24 25 mcg/actuation powdr for inhalation (Anoro Ellipta) Allergies Allergy/AdvReac Type Severity Reaction Status Date / Time No Known Allergies Allergy Verified 10/26/24 16:16 Review of Systems 2 Review of Systems: as per hpi Yes all other systems are reviewed and are negative Constitutional: Constitutional: Reports as per HPI Neurologic: Reports confusion Psychiatric: Psychiatric: Reports confusion [facility] Past Medical History Medical History (Updated 10/26/24 @ 19:01 by Solange Anand NP) Atrial flutter Ischemic cardiomyopathy Former smoker SIADH (syndrome of inappropriate ADH production) Paroxysmal atrial fibrillation Mood disorder Heart failure COPD (chronic obstructive pulmonary disease) Hypertension Hyperlipidemia TIA (transient ischemic attack) Encounter to establish care Surgical History (Updated 10/07/24 @ 14:36 by Rayray Shah MD) S/P CABG x 3 Social History Social History Household Members: Family Household Members Other:: Niece and her daughter Housing: Apartment Do you presently have visiting nurse or other home services: Yes Unable to assess alcohol history related to: Unable to respond Alcohol intake: former Patient Tobacco Use Status: Former Tobacco user Tobacco use type: Cigarette Cigarette Packs Per Day: 1 Cigarettes Per Day: 20 Years Smoked: 53 years e-Cigarette/Vaping Use: Never Used Second Hand Smoke Exposure: Yes Use of substances other than those prescribed or required for medical reasons: Unable to respond Substance Use Type: Crack/Cocaine and Marijuana Advance Directives: No Advance Directives Information Provided: No Do you have a plan to hurt others: No Plan service: No Current occupational status: retired Sexual orientation: Straight/Heterosexual Cognitive needs: Yes Hearing needs: No Vision needs: Yes (Glasses) Physical Exam ED Vital Signs: Vital Signs - 24 hr 10/26/24 16:05 10/26/24 16:09 10/26/24 18:06 Temperature 99.1 F 99.1 F 98.9 F Pulse Rate 68 67 61 Respiratory Rate 14 19 19 Blood Pressure 81/46 L 81/46 L 110/45 L Pulse Oximetry 95 95 95 Oxygen Delivery Method Room Air Room Air Room Air 10/26/24 18:21 Temperature Pulse Rate Respiratory Rate Blood Pressure 113/49 L Pulse Oximetry Oxygen Delivery Method BMI result Body Mass Index 27.9 Vital signs have been reviewed and appear to be correct. Blood pressure initially hypotensive. Heart rate normal. Respiratory rate normal. Temperature normal. Oxygen saturation normal. Const General: cooperative, alert, awake and confusion Orientation/consciousness: oriented to person and confusion Limitations: altered mental status HENVT Head: Yes normocephalic and Yes atraumatic Ears: external ears normal General nose exam: Normal external nose present Face and sinus: Yes face symmetric Mouth: oropharynx normal and moist mucous membranes Throat: Yes uvula midline Eyes Pupils: Equal, round and reactive pupils present Neck Neck: Yes normal visual inspection, Yes no meningeal signs and Yes supple Resp Effort & Inspection: normal respiratory effort and able to speak in complete sentences Auscultation: clear to auscultation bilaterally Cardio Rate: regular rate Rhythm: regular rhythm Heart sounds: S1 normal heart sound present and S2 normal heart sound present GI Palpation (GI): Soft to palpation and nontender Auscultation: normoactive bowel sounds General: Yes no CVA tenderness Back/Spine/Pelvis Back: no CVA tenderness Skin General skin exam: elasticity normal and turgor normal Neuro General: oriented to person, tone normal, moves all extremities, no meningeal signs, no focal motor deficits, CN's II-XI intact bilaterally, deep tendon reflexes 2+ bilaterally and confusion Cranial nerves: Yes Equal, round and reactive pupils present Cognition (Neuro): normal cognition Extrem General: Yes full ROM, Yes no pedal edema and Yes no calf tenderness Psych Mental Status: mental status grossly normal Affect: normal affect Thought process: Normal thought process present Medications Administered Generic Name Dose Route Start Last Admin Trade Name Freq PRN Reason Stop Dose Admin Albumin Human 100 mls @ 133.333 mls/hr 10/26/24 18:00 10/26/24 18:45 Kedbumin 25 % IV 10/26/24 19:44 133.33 mls/hr Q1H VITALY Administration Discontinued Medications Generic Name Dose Route Start Last Admin Trade Name Freq PRN Reason Stop Dose Admin Ceftriaxone Sodium 1 gm 10/26/24 16:07 10/26/24 17:02 Ceftriaxone Sodium 1 Gm Vial IVPUSH 10/26/24 16:08 1 gm ONCE ONE Administration Lactated Ringer's 1,000 mls @ 999 mls/hr 10/26/24 16:15 10/26/24 18:05 Lr IV 10/26/24 17:15 Infused .Q1H1M VITALY Infusion Medical Decision Making Medical Decision Making [facility] Narrative: Patient is a 69-year-old male with reported history of TIA, COPD, HTN, HLD, heart failure, paroxysmal afib/flutter, SIADH, ischemic cardiomyopathy, s/p CABG, schizophrenia presenting to the ED from SNF for hypotension, bradycardia. On exam patient is awake, A+Ox1, baseline confusion, hypotensive, VS otherwise WNL, afebrile, normal neurological exam without focal deficits, physical exam findings as above. Given reported symptoms and physical exam findings, initial differential includes but is not limited to UTI, pneumonia, sepsis, viral illness, Covid, flu. Labs notable for left shift without leukocytosis, anemia not at transfusion level, hyponatremia, normal lactic, slightly elevated troponin. X-ray chest notable for right retrocardiac atelectasis. My interpretation is in agreement with the radiologist's interpretation. UA notable for 3+ leukocytes, positive nitrites, 2+ blood, greater than 50 wbc's, 4+ bacteria. IV ceftriaxone ordered on arrival. [place] body weight is 73kg, IV fluids and albumin ordered as patient meets sepsis criteria. Admission to medicine accepted by Dr. Soto. Differential Diagnosis Differential Diagnoses: The differential diagnosis associated with the presentation includes as per [facility] Admission/Observation Consideration of admission/observation: Escalation of care including admission/observation considered Consult Healthcare Provider Management of the patient was discussed with: Hospitalist Lab Data [facility] Lab Attestation statement: I reviewed the patient's lab results. as per [facility] 10/26/24 16:25 10/26/24 16:25 Labs: Lab Results 10/26/24 10/26/24 10/26/24 Range/Units 16:25 16:35 17:39 WBC 8.2 (4.8-10.8) X10*3/uL RBC 3.75 L (4.60-5.80) X10*6/uL Hgb 11.3 L (14.0-18.0) g/dl Hct 32.6 L (42.0-52.0) % MCV 86.9 (80.0-98.0) fL MCH 30.1 (27.0-33.0) pg MCHC 34.7 (31.0-36.0) g/dl RDW 13.9 (11.0-16.0) % Plt Count 154 L (160-400) X10*3/uL MPV 9.1 L (9.4-12.4) fL Immature Gran % (Auto) 0.4 (0.0-0.4) % Neut % (Auto) 77.8 H (45-73) % Lymph % (Auto) 8.9 L (20-40) % [place] % (Auto) 11.1 H (2-11) % Eos % (Auto) 1.6 (0-4) % Baso % (Auto) 0.2 (0-2) % Lymph # (Auto) 0.7 L (1.2-4.9) X10*3/uL [place] # (Auto) 0.9 (0.1-1.2) X10*3/uL Eos # (Auto) 0.1 (0.0-0.4) X10*3/uL Baso # (Auto) 0.0 (0.0-0.2) X10*3/uL Abs Immat Gran (auto) 0.03 (0.00-0.03) X10*3/uL Absolute Neuts (auto) 6.4 (2.0-8.3) x10*3/uL Absolute Nucleated RBC 0.000 (0.0-0.012) X10*3/uL Nucleated RBC % (auto) 0.0 (0.0-0.2) /100WBC PT 15.9 H (10.9-12.4) SEC INR 1.4 H (0.9-1.1) VBG pH 7.39 (7.32-7.43) VBG pCO2 50 mmHg VBG pO2 33 mmHg VBG HCO3 31 H (22-26) mmol/L VBG O2 Saturation 44.0 % VBG Base Excess 5.0 mmol/L Sodium 127 L (135-145) mmol/L Potassium 3.7 (3.3-5.1) mmol/L Chloride 94 L (96-108) mmol/L Carbon Dioxide 26 (22-29) mmol/L Anion Gap 11 L (12-20) BUN 20 H (9-16) mg/dL Creatinine 0.90 (0.5-1.4) mg/dL Estim Creat Clear Calc 86.6 Estimated GFR > 60 Random Glucose 152 H (60-115) mg/dL Lactic Acid 1.5 (0.5-2.0) mmol/L Calcium 8.8 (8.4-10.2) mg/dL Magnesium 1.9 (1.6-2.6) mg/dL Total Bilirubin 0.7 (0.0-1.0) mg/dL AST 34 (5-37) U/L ALT 6 (0-40) U/L Alkaline Phosphatase 72 (39-117) U/L Troponin I High Sens 6.1 (<3.5-35.0) ng/L Total Protein 7.0 (6.5-8.0) g/dL Albumin 3.3 L (3.5-5.0) g/dL Urine Color Dark Yellow Urine Appearance Cloudy Urine pH 6.0 (5.0-9.0) Ur Specific [place] 1.015 (1.005-1.025) Urine Protein 100 (2+) H (Neg-Trace) mg/dL Urine Glucose (UA) Negative (Negative) mg/dL Urine Ketones Negative (Negative) mg/dL Urine Blood Moderate (2+) H (Negative) Urine Nitrite Positive H (Negative) Ur Leukocyte Esterase Large (3+) H (Negative) Urine RBC 11-20 H (0-2) /HPF Urine WBC >50 H (0-5) /HPF Ur Squamous Epith Cells 0-2 (0-2) /HPF Urine Bacteria 4+ (None Seen) Hyaline Casts 0-2 (0-2) /LPF Valproic Acid 70.6 (50.0-100.0) mcg/mL Influenza Type A (PCR) NEGATIVE (Negative) Influenza Type B (PCR) NEGATIVE (Negative) RSV RNA Qual (PCR) NEGATIVE (Negative) SARS-CoV-2 RNA (RT-PCR) NEGATIVE (Negative) Independent Interpretation I performed an independent interpretation of an: EKG (Sinus rhythm with first- degree AV block, rate 65 beats per minute, prolonged QTc) and Plain X-Ray Interpretation: Chest xray notable for right retrocardiac atelectasis. Radiology Impression Discussion of test interpretation with radiology: I have reviewed the radiologist's reading. Radiologist Impression: 1 view chest x-ray Comparison: None provided Findings: Right retrocardiac atelectasis. No significant pleural effusion or pneumothorax. Prominent cardiac silhouette. No acute fracture. Median sternotomy wires. Rotation limits evaluation. IMPRESSION: Right retrocardiac atelectasis. External Record Review External record reviewed: Inpatient record, Office record and Outpatient record Prescription Management I considered prescription management with: Antibiotic Critical Care Time Critical Care Time Critical Care Time: Yes Total Critical Care Time: 55 Attestation: I have personally provided critical care time exclusive of time spent on separately billable procedures. Time includes review of lab data, radiology results, discussion with consultants, and monitoring for potential decompensation. Intervention performed as documented. Discharge Plan Discharge Patient Disposition: Admitted As Inpatient Print Language: Kinyarwanda Sepsis Bolus Exclusion Sepsis Bolus Exclusion This patient met severe sepsis criteria due to the following condition(s):: H ypotension In my clinical judgement the administration of 30 ml/kg of crystalloid would be detrimental to this patient due to the patient's following conditions:: Other (unspecified heart failure) Other (must be specific):: unspecified heart failure Replace the 30 mls/kg with (Zero amount not acceptable and all fluids for severe sepsis must be given at GREATER than 125 mls/hr) *Note: One of the yuen must be documented Crystalloids amount given in mls: (rate must be at least 150cc/hr): 1,000
[2024-10-26 16:09] VITALS: BP 70/45; BP 81/46; PULSE 64; PULSE 67; RESP 19; TEMP 37.3; O2SAT 95; O2SAT 96; BMI 27.9
[2024-10-26 16:34] LABS: MANUAL DIFF FLAG NO
[2024-10-26 16:38] LABS: Hematocrit 32.6 % (42.0-52.0); Hemoglobin 11.3 g/dl (14.0-18.0); Imm Gran Abs Auto 0.03 X10*3/uL (0.00-0.03); Imm Gran Pct Auto 0.4 % (0.0-0.4); Lymphocytes Absolute Auto 0.7 X10*3/uL (1.2-4.9); Mean Corpuscular HGB Conc 34.7 g/dl (31.0-36.0); Mean Corpuscular Hemoglobin 30.1 pg (27.0-33.0); Mean Corpuscular Volume 86.9 fL (80.0-98.0); NRBC Abs Auto 0.000 X10*3/uL (0.0-0.012); NRBC Pct Auto 0.0 /100WBC (0.0-0.2); Platelet Count 154 X10*3/uL (160-400); Red Blood Count 3.75 X10*6/uL (4.60-5.80); White Blood Count 8.2 X10*3/uL (4.8-10.8)
--- OUTSIDE RECORDS SUMMARY | 2024-10-26 16:45 | XMS_ITS | Data Portability ---
Author Organization [employer] [facility] Address [address] [place] [address] Care Team Providers Care Waiter/Waitress Formal Name Role Phone HIM CCA OTHER Assessment Encounter Date Assessment Date Assessment LastModified by Organization Details LastModified Time 07/02/2023 07/02/2023 I provided real -time medical direction via phone for this encounter, and was available for additional phone based assistance as needed. I have reviewed and agree with the Assessment and Plan as documented by the Flight Test Shop Mechanic. We discussed the diagnostic uncertainty of home visits and the risk associated with this. In this case the patient and I felt this to be an acceptable and reasonable amount of risk given the benefit of avoiding an ED visit. The patient/ niece given the opportunity to ask questions. Advised if develops CP/severe SOB/turning blue/uncontrolled n/v/d or black/bloody emesis or stool/ AMS/ syncope/ hi fever unresponsive to APAP to call 911- they verbalized understanding of instructions to the medic Not available 07/02/2023 12:20:06 02/21/2024 02/21/2024 As noted, starr lam called to see this patient regarding concerns of liudmila. Evaluation in the field was performed by my lockstitch front edge tape sewer colleague, as noted above, I provided real-time direction and supervision for this visit. The evaluation revealed 68y M with HFrEF (30-35%), COPD, schizophrenia, p-Afib, chronic hyponatremia presenting w caregiver reporting sxs c/f hyponatremia (shaky, dizziness). Na today is 133. Exam reassuring, VSS. He has rx Na. reassurance provided. Encouraged to reach out tomorrow if sxs progress. Impression: chronic hyponatremia Plan: continue outpatient Na supplementation regimen, Primary care, consider f/u in 7-10 days Disposition: We discussed the diagnostic uncertainty of home visits and the risk associated with this. In this case, the patient and I felt this to be an acceptable and reasonable amount of risk given the benefit of avoiding an ED visit. We discussed the need to seek care urgently/emergentl y in the setting of any new or worsening serious symptoms, particularly worsening confusion, dizziness, blurry vision, instability atilhou Not available 02/21/2024 22:43:29 Plan of Treatment Reminders Order Date Submit Date Provider Last Modified By Organization Details Last Modified Time Details Appointments None recorded. Lab BMP, serum or plasma 2023 024 SARI [facility], [address] [place] [address], [id number] 13:48:55 BMP, serum or plasma 2023 024 [email or web address] 0 [facility] - [facility], [address] [place] [address], [phone] 4 12:24:32 Referral None recorded. Procedures None recorded. Surgeries None recorded. Imaging None recorded. Medication Orders furosemide 40 mg tablet 2023 024 [email or web address] [id number], [address] [place], [address], 4 13:34:40 ipratropium 0.5 mg-albutero l 3 mg (2.5 mg base)/3 mL nebulizatio n soln 2023 024 [email or web address] 0 [id number], [address] [place], [address], 4 12:24:32 Lasix 20 mg tablet 2023 024 [email or web address] [id number], [address] [place], [address], 4 12:24:32 Patient TargetsNo targets recorded. Patient InstructionsNo instructions recorded. Reason for Referral None Reported. Results Created Date Observation Date Name Description Value Unit Range Abnormal Flag Note LastModifiedBy Organization Detail LastModifiedTime 07/02/19 24 07/02/2023 BMP, serum or plasm a BUN 17 Not Available [facility] - [facility] [address] [place] [address], [address] [place] [address] 07/02/2023 11:10:42 07/02/19 24 07/02/2023 BMP, serum or plasm a Ca Ionize d calcdemetriau m 1.1 Not Available Main - [address], [address] [place] [address] 07/02/2023 11:10:42 07/02/19 24 07/02/2023 BMP, serum or plasm a CI- 9 7 Not Available Main - Ins [address], [address] [place] [address] 07/02/2023 11:10:42 07/02/19 24 07/02/2023 BMP, serum or plasm a CRE 1 Not Available Main - Ins [address], [address] [place] [address] 07/02/2023 11:10:42 07/02/19 24 07/02/2023 BMP, serum or plasm a GLU 91 Not Available [facility] - Ins [address], [address] [place] [address] 07/02/2023 11:10:42 07/02/19 24 07/02/2023 BMP, serum or plasm a K+ 4.1 Not Available Main - Ins [address], [address] [place] [address] 07/02/2023 11:10:42 07/02/19 24 07/02/2023 BMP, serum or plasm a Na+ 133 Not Available [facility] - Ins [address], [address] [place] [address] 07/02/2023 11:10:42 07/02/19 24 07/02/2023 BMP, serum or plasm a tCO2 24 Not Available [facility] - Ins [address], [address] [place] [address] 07/02/2023 11:10:42 Result Notes None recorded. Medical Equipment None Reported. Allergies No known drug allergies Medications Name Sig Start Date Stop Date Status Note LastModified by Organization Details LastModified Time multivitamin tablet TAKE 1 TABLET BY MOUTH EVERY DAY active Not Available Not Available No t Available atorvastatin 40 mg tablet TAKE 1 TABLET BY MOUTH IN THE EVENING active Not Available Not Available Not Available prednisone 10 mg tablet PLEASE SEE ATTACHED FOR DETAILED DIRECTIONS active Not Available Not Available N ot Available ipratropium 0.5 mg-albuterol 3 mg (2.5 mg base)/3 mL nebulization soln Inhale 3 mL by nebulizatio n route. 2023 active Not Available Not Available Not Avai lable albuterol sulfate 2.5 mg/3 mL (0.083 %) solution for nebulization INHALE 3 ML EVERY 6 HOURS NEEDED active Not Available Not Available No t Available trazodone 50 mg tablet TAKE 2 TABLET BY MOUTH EVERY NIGHT AT BEDTIME NEEDED FOR INSOMNIA active Not Available Not Available No t Available azithromycin 250 mg tablet TAKE 1 TABLET BY MOUTH EVERY DAY FOR 4 DAYS *START 05/08 active Not Available Not Available No t Available prednisone 20 mg tablet TAKE 2 TABLETS BY MOUTH EVERY DAY FOR 4 DAYS active Not Available Not Available No t Available sertraline 100 mg tablet TAKE 1 TABLET BY MOUTH EVERY DAY active Not Available Not Available No t Available thiamine HCl (vitamin B1) 100 mg tablet TAKE 1 TABLET BY MOUTH EVERY DAY active Not Available Not Available No t Available aspirin 81 mg tablet,delay ed release TAKE 1 TABLET BY MOUTH EVERY DAY active Not Available Not Available No t Available doxycycline monohydrate 100 mg tablet TAKE 1 TABLET BY MOUTH EVERY 12 HOURS FOR 2 DAYS active Not Available Not Available N ot Available spironolacto ne 25 mg tablet TAKE 1 TABLET BY MOUTH EVERY DAY active Not Available Not Available No t Available carvedilol 3.125 mg tablet TAKE ONE TABLET ORALLY EVERY 12 HOURS MUST ADMINISTER WITH A MEAL/FOOD active Not Available Not Available No t Available Lasix 20 mg tablet Take 2 tablets by oral route. 2023 active Not Available Not Available Not Avai lable pantoprazole 40 mg tablet,delay ed release 40 MG ORALLY DAILY active Not Available Not Available No t Available aspirin 81 mg chewable tablet TAKE 1 TABLET BY MOUTH DAILY active Not Available Not Available Not Available folic acid 1 mg tablet TAKE 1 TABLET BY MOUTH DAILY active Not Available Not Available Not Available montelukast 10 mg tablet TAKE 1 TABLET BY MOUTH ONCE DAILY active Not Available Not Available No t Available mirtazapine 15 mg tablet TAKE 1 TABLET BY MOUTH AT BEDTIME active Not Available Not Available No t Available albuterol sulfate HFA 90 mcg/actuatio n aerosol inhaler INHALE 2 PUFFS EVERY 4 TO 6 HOURS NEEDED FOR SHORTNESS OF BREATH OR FOR WHEEZE active Not Available Not Available No t Available doxycycline hyclate 100 mg tablet TAKE 1 TABLET BY MOUTH TWICE A DAY UNTIL FINISHED active Not Available Not Available No t Available olanzapine 20 mg tablet TAKE 1 TABLET BY MOUTH AT BEDTIME active Not Available Not Available No t Available nicotine 7 mg/24 hr daily transdermal patch APPLY 1 PATCH TRANSDERMAL LY EVERY 24 HOURS active Not Available Not Available No t Available azithromycin 500 mg tablet TAKE 1 TABLET BY MOUTH ONCE FOR 1 DAY active Not Available Not Available No t Available nicotine (polacrilex) 4 mg buccal lozenge PLEASE SEE ATTACHED FOR DETAILED DIRECTIONS active Not Available Not Available N ot Available lactulose 10 gram/15 mL oral solution TAKE 30 ML BY MOUTH 4 TIMES A DAY active Not Available Not Available Not Available varenicline tartrate 1 mg tablet TAKE 1 TABLET BY MOUTH EVERY DAY active Not Available Not Available No t Available varenicline tartrate 0.5 mg (11)-1 mg (42) tablets in a dose pack TAKE DIRECTED active Not Available Not Available No t Available quetiapine 50 mg tablet TAKE 3 TABLETS AT BEDTIME active Not Available Not Available No t Available melatonin 5 mg tablet TAKE 1 TABLET BY MOUTH AT BEDTIME NEEDED FOR SLEEP active Not Available Not Available No t Available lurasidone 80 mg tablet TAKE 1 TABLET BY MOUTH EVERYDAY AT BEDTIME active Not Available Not Available No t Available Combivent Respimat 20 mcg-100 mcg/actuatio n solution for inhalation TAKE 1 PUFF BY MOUTH 4 TIMES A DAY SPACE EVENLY DURING WAKING HOURS active Not Available Not Available No t Available lurasidone 120 mg tablet TAKE 1 TABLET BY MOUTH EVERY DAY active Not Available Not Available No t Available Eliquis 5 mg tablet TAKE 1 TABLET BY MOUTH TWICE A DAY active Not Available Not Available No t Available Anoro Ellipta 62.5 mcg-25 mcg/actuatio n powder for inhalation INHALE 1 PUFF DAILY active Not Available Not Available N ot Available Entresto 24 mg-26 mg tablet TAKE 1 TABLET BY MOUTH TWICE A DAY active Not Available Not Available No t Available Vitals Date Recorded Body height Body mass index (BMI) Body weight Provider Name and Address Organization Details Last Updated DateTime 07/02/2023 180.34 cm 30.1 kg/m2 77842.23 g Silvina Gramajo MD [address] [facility],[address] [facility], [place], [address], [place] - [employer] 07/02/2023 11:27:09 Date Recorded Body temperature Heart rate Oxygen saturation Oxygen saturation in Arterial blood by Pulse oximetry Respiratory rate Systolic And Diastolic Provider Name and Address Organization Details Last Updated DateTime 4 98 [degF] 86 /min 98 % 98 % 20 /min 130/80 mm[Hg] Not Available [employer] - [employer] 4 11:04:34 Date Recorded Oxygen saturation Oxygen saturation in Arterial blood by Pulse oximetry Heart rate Body temperature Respiratory rate Body height Body weight Systolic And Diastolic Provider Name and Address Organization Details Last Updated DateTime 4 94 % 94 % 82 /min 97.3 [degF] 16 /min 177.8 cm 861374. 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 4 10:22:55 Date Recorded Body temperature Heart rate Oxygen saturation Oxygen saturation in Arterial blood by Pulse oximetry Respiratory rate Systolic And Diastolic Provider Name and Address Organization Details Last Updated DateTime 4 98.3 [degF] 65 /min 95 % 95 % 20 /min 116/64 mm[Hg] Not Available [employer] 4 14:20:47 Date Recorded Oxygen saturation Oxygen saturation in Arterial blood by Pulse oximetry Body height Heart rate Body weight Respiratory rate Body temperature Systolic And Diastolic Provider Name and Address Organization Details Last Updated DateTime 4 92 % 92 % 180.34 cm 80 /min 78325.7 68 g 16 /min 97.2 [degF] 152/89 mm[Hg] Not Available [employer] 4 21:45:16 Date Recorded Respiratory rate Body temperature Body weight Oxygen saturation Oxygen saturation in Arterial blood by Pulse oximetry Body height Heart rate Systolic And Diastolic Provider Name and Address Organization Details Last Updated DateTime 4 14 /min 98.4 [degF] 58738.6 g 99 % 99 % 185.42 cm 80 /min 151/85 mm[Hg] Not Available [employer] 4 20:58:10 Social History None recorded. Functional Status None recorded. Mental Status None recorded. Family History Nothing Reported. Medical History No medical history recorded. Past Encounters Encounter ID Performer Location Encounter Start Date Encounter Closed Date Diagnosis/Indication Diagnosis SNOMED-CT Code Diagnosis ICD10 Code Diagnosis Note [id number] Zoltan Roque MD [facility] [address] [place] [phone] 04/02/2022 19:41:20 04/04/2022 11:55:01 Swelling of lower jaw region 002582698 R22.0 This was a challengin g case for [facility] assessment . 66yo man presents with 2 days of right jaw swelling. There is no pain, redness, induration , pus, tender tooth, or other evidence of focal infection. He does have a history of remote dental work in that area but none recently. From remote care I am unsure of the diagnosis, but I did not feel there was clear evidence of infection, so did not prescribe antibiotic s. Given lack of induration , I did not feel he required ED care for incision and drainage or imaging. I recommend outpatient in-person medical evaluation , likely by PCP. He has a PCP and will call Monday morning. He has daily visiting nurse who can monitor for worsening. If any fever, trouble breathing, or other new symptom he will call or present to ED. [id number] Lev Butts MD [facility] - [address] [phone] 10/21/2022 14:55:12 10/22/2022 10:13:01 Chronic obstructive pulmonary disease 84320887 J44.9 This 67-year-ol d male with COPD called [facility] wondering if he needs more steroids. He recently completed a course of oral steroids. I recommende d that hs continue with his current treatments and follow-up with his PCP. The patient agreed with this plan. [id number] Elba Avila MD [facility] - [address] [phone] 04/22/2023 16:01:46 04/25/2023 12:18:54 Chronic obstructive pulmonary disease 93239809 J44.9 Evaluation in the field was performed by my lockstitch front edge tape sewer colleague, as noted above, I provided real-time direction and supervisio n for this visit. 67yo M PMHx COPD, CHF, HTN p/w ongoing cough after recent RSV PNA. No ongoing fevers. On lockstitch front edge tape sewer assessment VS notable for sat 94% RA, exam with diffuse wheezing but no resp distress or forcal rhonchi to suggest bacterial PNA. Overall c/w COPDe iso RSV, recommend 5 day prednisone burst, standing DuoNebs q6hr and f/up with PCP for chronic mgmt COPD. We discussed the diagnostic uncertaint y of home visits and the risk associated with this. In this case, the patient and I felt this to be an acceptable and reasonable amount of risk given the benefit of avoiding an ED visit. We discussed the need to seek care urgently/e mergently in the setting of any new or worsening serious symptoms, shortness of breath, cough, chest pain, fever. [id number] Silvina Gramajo MD [facility] [address] [place] [phone] 05/07/2023 19:03:29 05/08/2023 17:40:31 Dyspnea 574161399 R06.00 Status post DuoNeb wheezing cleared patient has rhonchi on the right /rales on the left. BMP ordered-Me dic unable to get labs. Although patient reports 4 pound weight gain in 5 days, he has no orthopnea, JVD and no edema, I am not comfortabl e giving more Lasix without labs, plus I do not know how much Lasix he is getting as needed any baseline. He more likely has COPD exacerbati on/pneumon ia/pneumon itis, and CHF. Will cover with azithromyc in.Advised to have a low threshold for going to the ER with red flags above he verbalized understand ing Patient advised to use the DuoNeb every 6 hours-offe red plain albuterol in between, and he declined stating that would be too confusing for him. Will restart prednisone taper Patient needs a chest x-ray-clos e follow-up with his PCP note sent to daycare teacher via [facility] [id number] Silvina Gramajo MD [facility] - [facility] [phone] 07/02/2023 11:04:28 07/02/2023 16:34:14 Dyspnea [id number] R06.00 Status post DuoNeb wheezing unchanged- more likely due to mild chf-/mild COPD patient to continue DuoNeb 4 times a dayAble to draw labs but not get IV access, patient in no significan t distress/w ill double p.o. Lasix short-term Advised to take Lasix 40 mg daily tomorrow and Monday and to discuss with PCP further diuretics- medic had lengthy discussion with the patient regarding low-salt diet/very helpful to have niece present who has good understand ing -niece and patient verbalized understand ing Patient needs a chest x-ray-clos e follow-up with his PCP -advised needs to call tomorrow morning note sent to CP via [facility] [id number] Robin Cristina MD [facility] [address] [place] [phone] 07/29/2023 10:22:53 07/31/2023 13:08:55 Dyspnea 149321919 R06.00 Mild swelling and slight volume overload. Has been taking Lasix 20mg PO PRN. Took 20mg PO this AM. Given weight is increased, will give additional 40mg PO x1 now. Advised to call back if weight increasing despite 20mg PO Lasix. BMP wnl. Discussed red flag signs for which to seek higher level of care. [id number] Lev Butts MD [facility] [address] [place] [phone] 09/07/2023 14:20:45 09/07/2023 22:09:07 Hyponatremia 37625352 E87.1 This 68-year-ol d male has a history of hyponatrem ia and he is taking oral sodium chloride. Today his sodium is 128. I recommende d he continue his current medication s and follow-up with his PCP. The patient's caregivers agreed with this plan. [id number] Lev Butts MD [facility] [address] [place] [phone] 10/19/2023 21:45:06 10/20/2023 17:24:34 Hyponatremia 92672775 E87.1 This 68-year-ol d male has a history of hyponatrem ia and he is taking oral sodium chloride. His sodium has dropped from yesterday. I ordered normal saline one liter IV. He should have have repeat lab in one to two days. The patient agreed with this plan. [id number] Chiqui Mcneil MD [facility] [address] [place] [phone] 02/21/2024 20:58:08 02/22/2024 11:47:02 Chronic hyponatremia 66292353 E87.1 Health Concerns Section Related Observation LastModified by Organization Detai ls LastModified Time None Recorded Concern Status LastModified by Organization Details LastModified Time None Recorded Advance Directives Directive None Recorded Payers Insurance Date Sequence Insurance Name Policy Number Policy Myers Covered Member ID Myers Member ID Guarantor Name 10/21/2022 1 [facility] DOS PRIOR TO 2022 - DUAL ELIGIBLE (MEDICARE REPLACEMENT/ADV ANTAGE - HMO) Alberto Manuelovan [id number] Alberto Levi 02/22/2024 1 [facility] - DOS ON OR AFTER 2022 - DUAL ELIGIBLE - HALF-WAY OPTIONS AND ONE CARE (MEDICARE REPLACEMENT/ADV ANTAGE - HMO) Alberto Levi [id number] Alberto E Gurmeet Notes Date Note Type Note Provider Name and Address Organization Details Recorded Time 07/02/2023 text/html [facility] Nurse Triage Notes (Uma Yusuf): Chief Complaints: CHF, Shortness of Breath/Dyspnea PMH: CHF, COPD/Asthma, Hypertension Allergies: No Known Comments: Identified Identity/Address. Visiting nurse from [facility] calling to request visit for member with 3 lb weight gain in 1 day with increased shortness of breath. Member has no edema. Took PRN Lasix today. SEGMD: Patient slept last night on his usual 2 pillows to mobile orthopnea he complains mostly of intermittent dyspnea on exertion............ .................... .................... .................... .................... .................... .................... ......... Flight Test Shop Mechanic Note From Rosenda Nicole: Community Flight Test Shop Mechanic Azael Nicole Sc6 dispatched to a [facility] for a 67 yom C/O SOB. Upon arrival, the pt was ambulatory w/ slight tachypnea, but no dyspnea. Skin warm pink and dry, in no obvious distress. He reported that he had COPD and CHF, and that he had been using his nebulizer a lot w/ little effect. His neice/ball machine operator that lived in the home with him reported that he was not on a diuretic rx, as he had difficulty w/ compliance and had suffered hyponatremia in the past. She reported the pt did not follow his fluid or salt restriction, and that he had a 3 lb weight gain in 1 day w/ increased SOB. She stated his VNA visited 2X a day to administered meds, and that he received 20 mg lasix earlier that day. The pt denied fever, JONES, dizziness, cough, sore throat, CP, SOB at rest, abd pain, N/V/D, or urinary S/S. Expiratory wheezing in all yuen, no pedal edema. Some tachypnea on ambulation but no change in SPO2 on exertion. [facility] consulted; pt was given a duoneb and BMP acquired-results in insted. No change in lung sounds, pt reported no change in respiratory status. C consulted; pt was given 40 mg PO furosemide, w/ instructions given to him, his neice, and a note to VNA to give 40 mg furosemide PO the following day, and 40 mg furosemide PO the day after. His neice was instructed to call his PCP for follow up/further instruction. Red flags discussed at length, as well as fluid restriction and low salt diet. .................... .................... .................... .................... .................... .................... .................... . Disposition: Fulfilled Silvina Gramajo MD [address] [facility],[address], [place], [address], [facility] - [employer] 07/02/2023 15:04:42 07/29/2023 text/html HPI: [facility] nurse Nasrin called stating mbr is experiencing SOB hx of CHF/copd, patient received prn Lasix, with LE trace edema, refusing ED requesting [facility] visit. denies any CP/N/V able to speak in full sentences. Protocol Used: Leg Swelling and Edema Protocol-Based Disposition: Consider [facility], SPECIALIST PHYSICIAN, MD/DISABILITY COUNSELOR triage, PCP, or ED /Urgent Care Visit now Positive Triage Questions: * [1] Difficulty breathing with exertion (e.g., walking) AND [2] new-onset or worsening * [1] MODERATE leg swelling (e.g., swelling extends up to knees) AND [2] new-onset or worsening Negative Triage Questions: * SEVERE difficulty breathing (e.g., struggling for each breath, speaks in single words) * Looks like a broken bone or dislocated joint (e.g., crooked or deformed) * [1] Red area or streak AND [2] fever * [1] Red area or streak [2] large (> 2 in. or 5 cm) * [1] Thigh or calf pain AND [2] only 1 side AND [3] present > 1 hour .................... .................... .................... .................... .................... .................... .................... . [facility] Nurse Triage Notes (Joe Sevilla): Comments: Reviewed HPI .................... .................... .................... .................... .................... .................... .................... . Flight Test Shop Mechanic Note From Ross Zavala: Pt with hx of COPD and CHF reports 7 lb weight gain in the past 24 hours. Pt admittedly is non compliant with diet and fluid restrictions. Pt denies CP, SOB at rest, f/n/v/d. Pt is currently on a 20 mg lasix prn dose that the VNA administers. Pt is alert, NAD. VSS. Afebrile. Non focal neuro exam. Mild expiratory wheezing. Benign ABD exam. Trace to +1 BLE edema. Unremarkable POC labs. Pt treated with furosemide 40 mg PO and instructed to do a nebulizer treatment. Pt/family educated on how much lasix to administer over the next several days. Pt/family instructed to seek emergent medical care for new or worsening sx, which are reviewed with them. .................... .................... .................... .................... .................... .................... .................... . Disposition: Fulfilled Robin Cristina MD [address] [place] [address],[address], [place], [address], [employer] 07/29/2023 13:35:00 09/07/2023 text/html HPI: 67 male with HFrEF (30-35%), COPD, schizophrenia, p-Afib, admitted 08/10-08/21 to [facility] for AMS changes found to be hyponatremic. Antipsychotics and SSRIs were initially held and NaCl tabs were started on DC. Saw psych on Monday, trazodone restarted but mirtazapine still being held. Has VNA for meds. Has had difficulty with sodium pills and may have missed a dose yesterday (found in his room). He is having personality changes today, family concerned these are similar to changes prior to his last hospitalization. My concern is for electrolyte disturbance and would request [facility] for electrolytes to rule out recurrent hyponatremia. VS at today's visit T 98.2, HR 79, BP118/60, sat 96%. Weighed daily without significant change in weight. .................... .................... .................... .................... .................... .................... .................... . [facility] Nurse Triage Notes (Uma Yusuf): Comments: HPI reviewed. No further information needed to process visit. [employer] POC Test Results from [facility] iSTAT Chem8+ (1) [14:34] Na: 128 mEq/L K: 3.6 mEq/L Cl: 90 mEq/L iCa: 1.23 mmol/L TCO2: 26 mmol/L Glu: 109 mg/dL BUN: 10 mg/dL Crea: 0.8 mg/dL Hct: 38 % Hb: 12.9 g/dL A Attachments uploaded as part of this test result can be found under Documents section. Lev Butts MD [address] [place] [address],[address] [place] [address], [phone], [employer] 09/07/2023 14:39:20 10/19/2023 text/html [facility] Nurse Triage Notes (Uma Yusuf): Reason For Request: Patient is Altered Mental status, and Liudmila Chief Complaints: Altered Mental Status PMH: CHF, COPD/Asthma, Hypertension Allergies: Unknown Comments: Visiting nurse calling to request visit for AMS and shaking that started today. History of same symptoms is the past with low Na+ level. Lev Butts MD [address] [place] [address],[address] [facility], [place], [phone], [employer] 10/19/2023 21:48:57 02/21/2024 text/html [facility] Nurse Triage Notes (Kassy Schneider): Reason For Request: NA Chief Complaints: Altered mental status PMH: Congestive Heart Failure, COPD/Asthma, Hypertension Comments: [employer] verified the member's name//address and phone number. Member is a 68yr old male The family member calling for feeling unwell, shaky, and more confused. He has an H/o hyponatremia, and these are similar symptoms. He is on a NA tablet. He has not had any changes in medication, he is on fluid rest that he is not always compliant with it. He has CHF but he has lasix PRN and has not taken it in some time. He denies any sob or Chest pain. He has had one seizure due to hyponatremia. 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 .................... .................... .................... .................... .................... .................... . [employer] Note From [facility]: Patient conscious and alert, seated at table. Patient complains of not feeling himself. Caregiver, niece, is also a nurse. Caregiver reports patient has history of low sodium. Caregiver reports increased confusion, increased emotions and other subtle signs are indicators for her of low sodium as witnessed in the past. Caregiver reports no other concerns. But states patient does not follow water restriction as directed.Patient denies pain, nausea, vomiting, diarrhea, or any other pain or complaints. Patient pink warm dry secondary exam unremarkable. Good skin turgor, positive sentences, sounds clear negative edema. [place] [facility] [place] return visit for additional NA levels. Caregiver demonstrates understanding of care and plan. .................... .................... .................... .................... .................... .................... .................... . [facility] Consulted: Chiqui Mcneil .................... .................... .................... .................... .................... .................... .................... . Disposition: Charlie Mcneil MD [address] [facility],[address], [place], [phone], [employer] 02/21/2024 22:44:20
--- OUTSIDE RECORDS SUMMARY | 2024-10-26 16:45 | XMS_ITS | Encounter Summary ---
Author Organization [facility] Address [address] [place] [address] Care Team Providers Care Director Food And Beverage Name Role Phone Geena Lee MD Primary Care Provider + Encounter Details Date Type Department Care Team (Late st Contact Info) Description 04/16/2024 Lab Requisition [facility] - Main Lab [address] [place] [address] Geena Lee MD [address] [id number] Hyperlipidemia, unspecified; Essential (primary) hypertension Social History [...] LAB CHEMISTRY METHOD 04/18/2024 12:51 PM EST [facility] Potassium 4.0 3.5 - 5.5 mmol/L LAB CHEMISTRY METHOD 04/18/2024 12:[address] [facility] Chloride 97 96 - 110 mmol/L LAB CHEMISTRY METHOD 04/18/2024 12:[address] [facility] CO2 29 21 - 32 mmol/L LAB CHEMISTRY METHOD 04/18/2024 12:[address] [facility] Anion Gap 6 3 - 11 LAB CHEMISTRY METHOD 04/18/2024 12:[address] [facility] Glucose 87 70 - 100 mg/dL LAB CHEMISTRY METHOD 04/18/2024 12:[address] [facility] BUN 15 5 - 25 mg/dL LAB CHEMISTRY METHOD 04/18/2024 12:[address] [facility] Creatinine 0.84 0.70 - 1.30 mg/dL LAB CHEMISTRY METHOD 04/18/2024 12:[address] [facility] eGFR 95 >=60 mL/min/1. 73m2 LAB CHEMISTRY METHOD 04/18/2024 12:[address] [facility] Comment:Calculation based on the Chronic Kidney Disease Epidemiology Collaboration (CKD-EPI) equation refit without adjustment for race. BUN/Creatinine Ratio 17.9 LAB CHEMISTRY METHOD 04/18/2024 12:[address] [facility] Calcium 8.9 8.5 - 10.5 mg/dL LAB CHEMISTRY METHOD 04/18/2024 12:[address] [facility] Blood Venous blood specimen / Unknown 04/18/2024 8:22 AM EST 04/18/2024 11:52 AM EST us Geena Lee MD LAB BLOOD ORDERABLES Fin al Result [facility] [address] [place] [address], documented in this encounter Visit Diagnoses Diagnosis Hyperlipidemia, unspecified Essential (primary) hypertension Unspecified essential hypertension documented in this encounter Care Teams Director Food And Beverage Relationship Specialty Start Date End Date Geena Lee MD [address] [address] PCP - General Family Medicine 03/20/24 documented as of this encounter
[2024-10-26 16:46] LABS: VBG HCO3 31 mmol/L (22-26); VBG O2 % Saturation 44.0 %
--- OUTSIDE RECORDS SUMMARY | 2024-10-26 16:46 | XMS_ITS ---
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 Name Role Phone Edith Blankenship Unavailable Unavailable Zoë Martines Unavailable Unavailable Yosef Martel Unavailable Unavailable Geena Lee Unavailable Unavailable Sumeet, María Unavailable Unavailable Webley, Cami Unavailable Unavailable Soja, Alysa Unavailable Unavailable Rivera, Barbara Unavailable Unavailable Acosta, Alyse Unavailable Unavailable Lusas, Maria T Unavailable Unavailable Sebastián, Marina Unavailable Unavailable Zach, Palak Unavailable Unavail able Radu DELIVERY CONSULTANT, Lincoln O Unavailable Unavailable Katya, Alice Unavailable Unavailable Mol, Kiki Unavailable Unavailable Coco, Kiki Unavailable Unavailable Zepke, Cammie Unavailable Unavailable Heuser, Calista Unavailable Unavailable Grippin, Maribell Unavailable Unavailable Nicole, Shannon Unavailable Unavailable Jae, Shannon Unavailable Unavailable Planeta, Tiana Unavailable Unavailable Mccoljavier, Brionna Unavailable Unavailable Beka, Maia Unavailable Unavailable Shirokaja, Gloria Unavailable Unavailable Restrepo, Nadia Unavailable Unavailable Maingi, Shadrack Unavailable Unavailable Jae, Marian Unavailable Unavailable Katherin, Yosvany Unavailable Unavailable Colon-Cartegna, Anat Unavailable Unavailabl e Allergies and adverse reactions No Known Allergies Care Team Name Role Address Phone Organization Dates Geena Lee PCP [address] [facility] [address], [place], [address], [place] (Office): : [facility] 03/19/2024 - present Edith Blankenship [address] [facility] [address], [place], [address], [facility] (Office): [phone] (Fax): [phone] [facility] 03/19/2024 - [place], [address], [facility] (Office): : [facility] 03/19/2024 - present [place]osef GARCIA [place], [facility] 03/19/2024 - present María Fay [place] (Office): : [facility] 03/19/2024 - present Cami Hernandez [address] [place] [address] (Office): : [facility] 03/19/2024 - present Alysa Jovel [address] [address], [place], [address], [facility] (Office): : [phone] [facility] 03/19/2024 - present Barbara Rivera [address] [place] [address] [place], [address], [facility] (Office): : [facility] 03/19/2024 - present Alyse Shane [address] [place] [address], [place], [address], [facility] (Office): : [phone] [facility] 03/19/2024 - present Maria T Robin [facility], [address] (Office): [facility] 03/19/2024 - present Marina Lowery [address] [place] [address], [address], [facility] (Office): : [facility] 03/19/2024 - present Palak Serrano [address] [facility] [address] [place], [address], [facility] (Office): : [facility] 03/19/2024 - present Lincoln Lovelace NP [address] [facility] [address] [place] [address], [facility] (Office): [facility] 03/19/2024 - present Alice Aldana [address] [place] [address], [address], [facility] (Office): : [phone] [facility] 03/19/2024 - present Kiki Haile [place], [facility] 03/19/2024 - present Kiki Sepulveda [address], [address], [facility] (Office): : [facility] 03/19/2024 - present Cammie [place], [facility] 03/19/2024 - present Calista Rubalcava [address], [address], [facility] (Office): : [phone] [facility] 03/19/2024 - present Maribell Tay [address] [place] [address], [place], [address], [facility] (Office): : [phone] [facility] 03/19/2024 - present Shannon Rivera [address] [place] [address] [address], [place], [address], [place] (Office): : [phone] [facility] 03/19/2024 - present Shannon Rowe [address] [facility] [address], [place], [address], [facility] (Office): : [phone] [facility] 03/19/2024 - present Tiana TYHRA [place], [place], [facility] (Office): : [facility] 03/19/2024 - present Brionna Green [address] [facility] [address], [place], [address], [facility] (Office): : [phone] [facility] 03/19/2024 - present Maia Ireland [address] [facility] [address], [place], [address], [facility] (Office): : [phone] [facility] 03/19/2024 - present Gloria Galo [facility] 03/19/2024 - present Nadia Restrepo [address] [facility] [address], [place], [address], [facility] (Office): [phone] (Fax): [phone] [facility] 03/19/2024 - present Teresa Velasquez [address] [place] [address] [address], [place], [address], [facility] (Office): : [facility] 03/19/2024 - present Marian Rowe [address] [facility] [address], [place], [address], [facility] (Office): [facility] 03/19/2024 - present Yosvany Pandey [place] [facility] 03/19/2024 - present Anat Gimenez [address], [place], [address], [place] (Office): [facility] 03/19/2024 - present Imaging Narrative Note Date Imaging Narrative No te 10/02/2024 EKG W/ INTERPRETATIO N Comparison: similarly compared to previous study dated August 28, 2024. Previous QTC 440 MSFINDINGS: sinus rhythm. Normal ECG. Abnormal ECG. Intervals: HR: 60 bpm QTC: 444 msELECTRONICALLY SIGNED BY CHENCHO WOOTEN D.O. 10/02/2024 1:13:28 PM EDT.Reason for Study: I10 ESSENTIAL (PRIMARY) HYPERTENSIONPrincipal Result [place]: CHENCHO WOOTEN ([id number])Insulation Sprayer: BRENDAN CASTILLO (BBIRKS)Automotive Welder Insulation Sprayer: DESMOND De La Cruz Section Goals Description Status Target Date Alberto will be free of falls through the review d ate. Active 12/23/2024 Alberto will verbalize underst anding of need to control verbally abusive behavior through the review date. Active 12/23/2024 Alberto will adhere to fluid a zak allowed per meal 2/2 SIADH to promote Na+ level >/=130. Active 12/23/2024 Alberto will be able to commun icate basic needs on a daily basis through the review date. Active 12/23/2024 Alberto will be able to make b asic needs known by on a daily basis through the review date. Active 12/23/2024 Alberto will be free from disc omfort or adverse reactions related to blood thinner use through the review date. Active 12/23/2024 Alberto will be free from skin tears through the r eview date. Active 12/23/2024 Alberto will be free of s/sx o f respiratory infections through review date. Active 12/23/2024 Alberto will be/remain free of psychotropic drug related complications, including movement disorder, discomfort, hypotension, gait disturbance, constipation/impaction or cognitive/behavioral impairment through review date. Active 0 12/23/2024 Alberto will display optimal b reathing patterns daily through review date. Active 12/23/2024 Alberto will have no evidence of behavior problems by review date. Active 12/23/2024 Alberto will improve current l evel of function in self-care ADL's to reach goals set by therapy through the review date. Active Alberto will increase level of mobility by working with PT and reaching PLOF goals through the next review date. Active 04/2024 Alberto will not have an inter ruption in normal activities due to pain through the review date. Active 12/23/2024 Alberto will participate in gr oup activities 2x daily and will be open to room visits. Active 12/23/2024 Alberto will remain free from injury related to smoking, through next review date Active 12/23/2024 Alberto will remain free from skin breakdown due to incontinence and brief use through the review date. Active 12/23/2024 Alberto's bruise will heal by review date. Active 12/23/2024 Mahins risk for septicemia will be minimized/prevented via prompt recognition and treatment of symptoms of UTI through the review date. Active 12/23/2024 Mahins skin will remain abdirizak an and intact through the next review date. Active 12/23/2024 Alberto/HCP/Guardian's Advance d Directives will be honored through next review Active 12/23/2024 alberto shall have an improved mood state as evidence by him talking to others about his mood through the review date. Active 04/2024 alberto shall be in the least restrictive environm ent by next review Active 12/23/2024 Functional Status Code Name Recorded Time Value Entered By Chair/lif-wz-eogbe transfer 10/26/2024 Substantial/m aximal assistance [email or web address] Eating 10/24/2024 Independent aboeing Lower body dressing 10/26/2024 Dependent esanchez 1 Lying to sitting on side of bed 10/26/2024 Substantial/maximal assistance esanchez1 Oral hygiene 10/26/2024 Not assessed esanchez1 Personal hygiene 10/26/2024 Substantial/maximal assi stance esanchez1 Roll left and right 10/26/2024 Substantial/maximal a ssistance esanchez1 Shower/bathe self 10/26/2024 Not assessed esanchez1 Sit to lying 10/26/2024 Substantial/maximal assistan ce esanchez1 Sit to stand 10/26/2024 Dependent esanchez1 Toilet transfer 10/26/2024 Dependent esanchez1 Toileting hygiene 10/26/2024 Dependent esanchez1 Upper body dressing 10/26/2024 Dependent esanchez 1 Walk 150 feet 10/26/2024 Not assessed esanchez1 Walk 50 feet 10/26/2024 Not assessed esanchez1 Wheel 150 feet 10/26/2024 Not assessed esanche Wheel 50 feet with two turns 10/26/2024 Not assessed esanchez1 Immunizations Immunization Status Vaccine Details Vaccine Code CodeSystem Date Notes Influenza-High Dose(Fluzone) cancelled created date: 07/02/2024 consent date: 03/19/2024 Educated by on 07/02/2024 PVC20 cancelled Pneumococcal conjugate vaccine 20-valent (PCV20), polysaccharide [id number] conjugate, adjuvant, preservative free 216 CVX created date: 07/02/2024 consent date: 03/19/2024 Educated by on 07/02/2024 COVID-19, mRNA, LNP-S, PF, 10 mcg/0.2 mL dose, emma-sucrose cancelled SARS-COV-2 (COVID-19) vaccine, mRNA, spike protein, LNP, preservative free, 10 mcg/0.2mL dose, emma-sucrose formulation 218 CVX created date: 07/02/2024 consent date: 03/19/2024 Educated by on 07/02/2024 Medications Section Medication Name Status Code CodeSystem Dose Route Frequency Admin Type Sig Text Start Date End Date Ipratropium-A lbuterol Solution 0.5-2.5 (3) MG/3ML active 198621 2 RXNORM 1 vial Inhalat ion as needed PRN 1 vial inhale orally via nebuli zer every 6 hours as needed for Shortn ess of breath ; Pre and Post Lung Sound nj: 1 .clear 2 .wheez es 3 .rhonc hi 4 .crack les 5 .dimin ished 2023 - Omeprazole Oral Capsule Delayed Release 20 MG aborted 292739 RXNORM 20 mg Oral in the morning Routine Give 20 mg by mouth in the mornin g for Acid reflux 10/23 Eliquis Oral Tablet 5 MG active 914153 7 RXNORM 5 mg Oral two times a day Routine Give 5 mg by mouth two times a day for Afib relate d to PAROXY SMAL ATRIAL FIBRIL LATION (I48.0 ) 2023 - Divalproex Sodium ER Oral Tablet Extended Release 24 Hour 250 MG active 278941 3 RXNORM 3 tablet Oral at bedtime Routine Give 3 tablet by mouth at bedtim e for Schizo phreni a 3 tab= 750 mg 2023 - Atorvastatin Calcium Oral Tablet 40 MG active 768372 RXNORM 40 mg Oral at bedtime Routine Give 40 mg by mouth at bedtim e for HLD 2023 - Aspirin 81 Oral Tablet Chewable active 81 mg Oral in the morning Routine Give 81 mg by mouth in the mornin g for Afib relate d to ATHERO SCLERO TIC HEART DISEAS E OF [place] 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 (I25.1 0) 2023 - oxyCODONE HCl Oral Tablet 5 MG active 636353 1 RXNORM 5 mg Oral as needed PRN Give 5 mg by mouth every 6 hours as needed for Left Femora l neck fractu re 2023 - Singulair Oral Tablet 10 MG active 736367 RXNORM 10 mg Oral in the evening Routine Give 10 mg by mouth in the evenin g for Emphys carol 2023 - Multivitamin Oral Tablet active 1 tablet Oral in the morning Routine Give 1 tablet by mouth in the mornin g for supple ment 2023 - Carvedilol Oral Tablet 3.125 MG active 948162 RXNORM 3.125 mg Oral two times a day Routine Give 3.125 mg by mouth two times a day for CHF Hold medica tion if SBP <90 or HR <60 2023 - Docusate Sodium Oral Tablet 100 MG active 551963 9 RXNORM 100 mg Oral two times a day Routine Give 100 mg by mouth two times a day for Consti pation 2023 - MiraLax Powder active 026988 RXNORM 17 gram Oral as needed PRN Give 17 gram by mouth as needed for consti pation once daily, mix in 8 ounces of fluid 2023 - Umeclidinium- Vilanterol Inhalation Aerosol Powder Breath Activated 62.5-25 MCG/ACT active 148374 9 RXNORM 1 puff Inhalat ion in the morning Routine 1 puff inhale orally in the mornin g for Emphys carol relate d to EMPHYS CAROL, UNSPEC IFIED (J43.9 );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 2023 - Milk of Magnesia Suspension 400 MG/5ML active 541762 RXNORM 30 ml Oral as needed PRN Give 30 ml by mouth every 24 hours as needed for Consti pation (Step 1) As needed if no bowel moveme nt for three days. (Do not use for Hemodi alysis patien ts). 2023 - Acetaminophen Tablet 325 MG active 374906 RXNORM 2 tablet Oral as needed PRN Give 2 tablet by mouth every 6 hours as needed for Pain Pain Total dosage for acetam inophe n and medica tions that contai n acetam inophe n should not exceed 3 grams / 24 hours. AND Give 2 tablet by mouth every 6 hours as needed for Fever greate r than 100.0F Total dosage for acetam inophe n and medica tions that contai n acetam inophe n should not exceed 3 grams / 24 hours. 2023 - 362465 RXNORM 2 tablet Oral as needed PRN Give 2 tablet by mouth every 6 hours as needed for Pain Pain Total dosage for acetam inophe n and medica tions that contai n acetam inophe n should not exceed 3 grams / 24 hours. AND Give 2 tablet by mouth every 6 hours as needed for Fever greate r than 100.0F Total dosage for acetam inophe n and medica tions that contai n acetam inophe n should not exceed 3 grams / 24 hours. 2023 - Bisacodyl Suppository 10 MG active 707119 RXNORM 1 suppos itory Rectal as needed PRN Insert 1 suppos itory rectal ly every 24 hours as needed for If no bowel moveme nt for 8 hours after Milk of Magnes ia 2023 - Senna Oral Tablet 8.6 MG active 2 tablet Oral two times a day Routine Give 2 tablet by mouth two times a day for Mac pation 2023 - Divalproex Sodium ER Oral Tablet Extended Release 24 Hour 500 MG active 188722 9 RXNORM 500 mg Oral in the morning Routine Give 500 mg by mouth in the mornin g for schizo phreni a 2023 - Daphney-Tussin Oral Syrup active 5 ml Oral as needed PRN Give 5 ml by mouth every 4 hours as needed for Cough 2023 - oxyCODONE HCl Oral Tablet 5 MG active 744108 1 RXNORM 5 mg Oral two times a day Routine Give 5 mg by mouth two times a day for Pain 2023 - Spiriva Respimat Inhalation Aerosol Solution 2.5 MCG/ACT active 338108 4 RXNORM 2 puff Inhalat ion in the morning Routine 2 puff inhale orally in the mornin g relate d to 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, 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 ) 2023 - Ziprasidone HCl Oral Capsule 80 MG active 441463 RXNORM 80 mg Oral two times a day Routine Give 80 mg by mouth two times a day relate d to SCHIZO PHRENI A, UNSPEC IFIED (F20.9 ) 2023 - Cetirizine HCl Oral Tablet active 1 tablet Oral as needed PRN Give 1 tablet by mouth every 24 hours as needed for allerg ies 2024 - Melatonin Oral Tablet 3 MG active 699180 RXNORM 6 mg Oral as needed PRN Give 6 mg by mouth every 24 hours as needed for insomn ia 2024 - traZODone HCl Oral Tablet aborted 75 mg Oral at bedtime Routine Give 75 mg by mouth at bedtim e relate d to INSOMN IA, UNSPEC IFIED (G47.0 0) 09/26 traZODone HCl Oral Tablet active 75 mg Oral at bedtime Routine Give 75 mg by mouth at bedtim e relate d to INSOMN IA, UNSPEC IFIED (G47.0 0) 2024 - Omeprazole Oral Capsule Delayed Release 20 MG active 002244 RXNORM 20 mg Oral in the afternoon Routine Give 20 mg by mouth in the aftern oon for Acid reflux give prior to dinner 2024 - Mental Status Section Date Assessment Total Score Description 09/24/2024 BIMS 10 moderate cognit jovany impairment CAM 0 No delirium ind icated PHQ-9 00 06/25/2024 BIMS 15 cognitively int act CAM 0 No delirium ind icated PHQ-9 00 Problems Problem # Description Date of onset Resolved Date Code CodeSystem Concern Status 1 DYSPHAGIA, ORAL PHASE 09/13/[address] active 2 UNSPECIFIED LACK OF COORDINATION 09/12/[address] active 3 UNSTEADINESS ON FEET 09/12/[address] active 4 MUSCLE WEAKNESS (GENERALIZED) 09/06/[address] active 5 OTHER ABNORMALITIES OF GAIT AND MOBILITY 09/06/[address] active 6 UNSPECIFIED FALL, SUBSEQUENT ENCOUNTER 08/30/[address] active 7 PAIN IN LEFT HIP 06/23/[address] active 8 GASTRO-ESOPHAGEAL REFLUX DISEASE WITHOUT ESOPHAGITIS 06/18/[address] active 9 HISTORY OF FALLING 06/18/[address] active 10 ATHEROSCLEROTIC HEART DISEASE OF [place] CORONARY ARTERY WITHOUT ANGINA PECTORIS 03/19/[address] active 11 CHRONIC OBSTRUCTIVE PULMONARY DISEASE, UNSPECIFIED 03/19/[address] active 12 CHRONIC SYSTOLIC (CONGESTIVE) HEART FAILURE 03/19/[address] active 13 DYSPHAGIA, UNSPECIFIED 03/19/2007/05/[address] completed 14 EMPHYSEMA, UNSPECIFIED 03/19/[address] active 15 ENCOUNTER FOR OTHER ORTHOPEDIC AFTERCARE 03/19/2007/05/[address] completed 16 ESSENTIAL (PRIMARY) HYPERTENSION 03/19/[address] active 17 FALL (ON) (FROM) OTHER STAIRS AND STEPS, SUBSEQUENT ENCOUNTER 03/19/[address] completed 18 FRACTURE OF UNSPECIFIED PART OF NECK OF LEFT FEMUR, SUBSEQUENT ENCOUNTER FOR CLOSED FRACTURE WITH ROUTINE HEALING 03/19/20 24 09/30/[address] completed 19 HYPERLIPIDEMIA, UNSPECIFIED 03/19/[address] active 20 HYPO-OSMOLALITY AND HYPONATREMIA 03/19/[address] active 21 INSOMNIA, UNSPECIFIED 03/19/[address] active 22 MUSCLE WEAKNESS (GENERALIZED) 03/19/20 24 07/05/[address] completed 23 OTHER ABNORMALITIES OF GAIT AND MOBILITY 03/19/2007/05/[address] completed 24 OTHER LACK OF COORDINATION 03/19/2007/05/[address] completed 25 PAROXYSMAL ATRIAL FIBRILLATION 03/19/[address] active 26 SCHIZOPHRENIA, UNSPECIFIED 03/19/[address] active 27 SYNDROME OF INAPPROPRIATE SECRETION OF ANTIDIURETIC HORMONE 03/19/[address] active 28 UNSPECIFIED LACK OF COORDINATION 03/19/2007/05/[address] completed 29 UNSTEADINESS ON FEET 03/19/2007/05/[address] completed Reason for Referral No Reasons for Referral Entered Diagnostic Results Result Code Code System Date Test Result Interpretation Reference Range Status Notes 87345-4 [facility] 10/02 EKG W/ INTERPRETATI ON Completed Result for: BEBO ALBERTO ( 1955, M) 71110-4 [facility] 10/02 EKG W/ INTERPRETATI ON Final EKG W/ INTERPRETATI ON Comparison: similarly compared to previous study dated August 28, 2024. Previous QTC 440 MSFINDINGS: sinus rhythm. Normal ECG. Abnormal ECG. Intervals: HR: 60 bpm QTC: 444 msELECTRONIC ALLY SIGNED BY CHENCHO WOOTEN D.O. 10/02/2024 1:13:28 PM EDT.Reason for Study: I10 ESSENTIAL (PRIMARY) HYPERTENSION Principal Result [place]: CHENCHO WOOTEN ([id number]) Insulation Sprayer: BRENDAN CASTILLO (BBIRKS)Mead scription Insulation Sprayer: DESMOND Test Code Code System Name Date 10/02/2024 Social History Social History Observation Description Start Date End Date Code Code System Current Smoking Status Tobacco smoking consumption unknown 395281839 SNOMED CT Sex Assigned At Male 1955 00125-3 LOINC Gender Identity Vital Signs Code Code System Vitals Name Values and Units Timing Information 8462-4 [facility] Blood Pressure-Diastolic Value=50 Un its=mmHg 10/26/2024 8480-6 LOINC Blood Pressure-Systolic Value=74 Uni ts=mmHg 10/26/2024 8867-4 LOINC Heart rate Value=54.0 Units=/min 08/2024 08654-0 LOINC Pain Level Value=2.0 10/26/2024 9279-1 LOINC Respiratory Rate Value=18.0 Units=/m in 10/22/2024 8310-5 [facility] Body Temperature Value=98.8 Units= F 10/22/2024 70266-9 [facility] O2 % BldC Oximetry Value=98.0 Units= % 10/22/2024 74072-3 LOINC Weight Huagx=164.0 Units=Lbs 8302-2 LOINC Height Value=71.0 Units=Inches 03/23/2024
--- OUTSIDE RECORDS SUMMARY | 2024-10-26 16:46 | XMS_ITS | Clinical Summary ---
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 Active albuterol HFA (PROVENTIL HFA;VENTOLIN HFA) 108 (90 Base) MCG/ACT inhaler Inhale 2 puffs every 6 (six) hours if needed for wheezing Active aspirin (ST MATTHEW) 81 MG EC tablet Take 81 mg by mouth 1 (one) time each day Active budesonide-form oterol (SYMBICORT) 80-4.5 MCG/ACT inhaler Inhale 2 puffs 2 (two) times a day Rinse mouth with water after use to reduce aftertaste and incidence of candidiasis. Do not swallow. Active carvedilol (COREG) 3.125 MG tablet Take 3.125 mg by mouth 2 (two) times a day with meals Active divalproex (DEPAKOTE) 250 MG EC tablet Take 250 mg by mouth 2 (two) times a day Do not crush, chew, or split. Active folic acid (FOLVITE) 1 MG tablet Take 1 mg by mouth 1 (one) time each day Active losartan (COZAAR) 25 MG tablet Take 25 mg by mouth 1 (one) time each day Active Naloxone HCl 0.4 MG/ML solution cartridge Inject as directed Active buprenorphine-n aloxone (SUBOXONE) 2-0.5 [address] tablet Place under the tongue 1 (one) time each day Active Naloxone HCl 4 MG/10ML solution Inject as directed Active Naloxone HCl powder Active NALOXONE HCL NA Administer 1 spray into affected nostril(s) 1 (one) time each day Active OLANZapine (ZyPREXA) 20 MG tablet Take 20 mg by mouth every night Active pantoprazole (PROTONIX) 40 MG EC tablet Take 40 mg by mouth 1 (one) time each day before breakfast Do not crush, chew, or split. Active rivaroxaban (XARELTO) 20 MG tablet Take 20 mg by mouth 1 (one) time each day with dinner Active sertraline (ZOLOFT) 100 MG tablet Take 100 mg by mouth 1 (one) time each day Active thiamine (VITAMIN B-1) 100 MG tablet Take 100 mg by mouth 1 (one) time each day Active tiotropium (SPIRIVA) 18 MCG per inhalation capsule Place 1 capsule into inhaler and inhale 1 (one) time each day Active Eliquis 5 MG tablet Take 5 mg by mouth 2 (two) times a day 3 Active [facility] Aspirin Adult Low Dose 81 MG chewable tablet Chew 81 mg 1 (one) time each day 3 Active atorvastatin (LIPITOR) 40 MG tablet Take 40 mg by mouth 1 (one) time each day 3 Active ipratropium-alb uterol (DUO-NEB) 0.5-2.5 mg/3 mL nebulizer solution INHALE 1 VIAL VIA NEBULIZER EVERY 4 TO 6 HOURS NEEDED FOR WHEEZE 3 Active lactulose (CHRONULAC) 10 GM/15ML solution TAKE 30 ML BY MOUTH 4 TIMES A DAY 3 Active predniSONE (DELTASONE) 10 MG tablet DIRECTED ORALLY ONCE A DAY 30 DAY(S) 3 Active Entresto 24-26 MG per tablet Take 1 tablet by mouth 3 Active Active Problems Problem Noted Date Diagnosed Date Hyperkalemia 12/01/2023 Anemia, not otherwise specified 12/01/2023 Alcohol abuse 12/16/2020 Cocaine abuse, uncomplicated 12/16/2020 Hypo-osmolality and hyponatremia 12/16/2020 Generalized muscle weakness 06/29/2016 Acute respiratory failure with hypoxia 7 Difficulty in walking 06/13/2016 Heart failure 06/13/2016 Other encephalopathy 06/13/2016 Primary generalized osteoarthritis 06/13/2016 Repeated falls 06/13/2016 Stiffness of joint 06/13/2016 Chronic atrial fibrillation 04/29/2016 Chronic obstructive pulmonary disease 04/29/2016 Coronary atherosclerosis due to lipid rich plaqu e 04/29/2016 Essential (primary) hypertension 04/29/2016 Schizoaffective disorder 04/29/2016 Immunizations Immunization Administration Dates Next Due Influenza Vaccine, Quadrivalent, Adjuvanted 08/2016 Social History Tobacco Use Types Packs/Day Years Used Date Smoking Tobacco: Every Day Smokeless Tobacco: Never Alcohol Use Standard Drinks/Week Comments Yes 0 (1 standard drink = 0.6 oz pur e alcohol) Daily Sex and Gender Information Value Date Recorded Sex Assigned at Not on file Legal Sex Male 8:50 AM EDT Gender Identity Not on file Sexual Orientation Not on file Last Filed Vital Signs Vital Sign Reading Time Taken Comments Blood Pressure 110/60 12/28/2023 2:02 PM EDT Pulse 60 12/28/2023 2:02 PM EDT Temperature - - Respiratory Rate - - Oxygen Saturation 96% 12/28/2023 2:02 PM EDT Inhaled Oxygen Concentration - - Weight 88.9 kg (196 lb) 12/28/2023 2:02 PM EDT Height - - Body Mass Index - - Plan of Treatment Health Maintenance Due Date Last Done Comments Pneumococcal Vaccine: 50+ Years (1 of 2 - PCV) 09/01/1974 Colorectal Cancer Screening: Annual FOBT 09/01/2004 Colorectal Cancer Screening: Colonoscopy 09/01/2004 Colorectal Cancer Screening: Sigmoidoscopy 09/01/2004 Influenza Vaccine (Season Ended) 2024 04/28/2016, 02/29/2012 Hepatitis B Vaccine Aged Out No longe r eligible based on patient's age to complete this topic Insurance [facility] ([id number]) [facility] ([id number])
[2024-10-26 16:50] LABS: INTERNATIONAL NORM RATIO 1.4 (0.9-1.1); Prothrombin Time 15.9 SEC (10.9-12.4)
[2024-10-26 16:56] LABS: Venous Blood Gas Refer to POC result
[2024-10-26 16:57] LABS: Alanine Aminotransferase 6 U/L (0-40); Albumin Level 3.3 g/dL (3.5-5.0); Alkaline Phosphatase 72 U/L (39-117); Anion Gap 11 (12-20); Aspartate Amino Transferase 34 U/L (5-37); Blood Urea Nitrogen 20 mg/dL (9-16); Calcium 8.8 mg/dL (8.4-10.2); Carbon Dioxide 26 mmol/L (22-29); Chloride 94 mmol/L (96-108); Creatinine Clr Calc Pharmacy 86.6; Estimated Glomerular Filt Rate > 60; Magnesium 1.9 mg/dL (1.6-2.6); Potassium 3.7 mmol/L (3.3-5.1); Sodium 127 mmol/L (135-145); Total Protein 7.0 g/dL (6.5-8.0)
[2024-10-26 17:01] LABS: Troponin-I High Sensitivity 6.1 ng/L (<3.5-35.0)
[2024-10-26] MEDS: Lactated Ringers 1,000 ML 999 ML IV (17:01)
--- NOTE | 2024-10-26 17:21 | PC.NURSE ---
Sepsis protocol initiated by provider at 1605; difficulty in gaining IV access encountered; U/S guided IV RUE obtained by Hank RN; pt medicated and fluids admin. per orders; pt awake/alert/confused; SR 60's; 96/53 BP
[2024-10-26 17:24] LABS: Resp Syncy Virus RNA Qual PCR NEGATIVE (Negative); SARS COV2 PCR INHOUSE NEGATIVE (Negative)
[2024-10-26 17:47] LABS: Appearance Urine Cloudy; Glucose Urine UA Negative (Negative); PH 6.0 (5.0-9.0); Specific Gravity - Urine 1.015 (1.005-1.025); UMIC TRIGGER UACC YES
[2024-10-26 17:52] LABS: UACC Culture Trigger YES
[2024-10-26] MEDS: Albumin Human 25 % 100 ML 133.33 ML IV ×2 (17:55→18:45)
[2024-10-26 18:06] VITALS: BP 110/45; PULSE 61; RESP 19; TEMP 37.2; O2SAT 95
--- NOTE | 2024-10-26 18:07 | PC.NURSE ---
Pt alert/awake/repeatedly yelling for a cup of coffee and lunch; bp 110/45; swallow eval failed; provider made aware; IV albumin running per orders
[2024-10-26 18:21] VITALS: BP 113/49
--- NOTE | 2024-10-26 19:19 | PM.IMHP ---
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 Patient is alert and awake. Most of the history obtained from the records and the staff. Reportedly the senior care staff noted that the patient's blood pressure was on the lower side and subsequently sent him to the hospital for further evaluation. Per senior care staff patient has been having cough past couple days. It has been having difficulty passing the swallow screen. Denies any choking or aspiration episodes. Denies any fevers. Denies patient complaining of any pain. Denies any nausea vomiting or diarrhea. Review of all other systems is limited. ER course: Per ER team, patient on presentation now developed and awake, appears comfortable; blood pressure was 80 systolic on presentation. Given 1 L of IV fluids and albumin with improvement in the blood pressure. Urinalysis abnormal consistent with UTI. Lactate within normal limits. Chest x-ray showed no acute cardiopulmonary process. Sodium levels were 127. [facility] Medical History Atrial flutter Ischemic cardiomyopathy Former smoker SIADH (syndrome of inappropriate ADH production) Paroxysmal atrial fibrillation Mood disorder Heart failure COPD (chronic obstructive pulmonary disease) Hypertension Hyperlipidemia TIA (transient ischemic attack) Encounter to establish care Surgical History S/P CABG x 3 Social History Household Members: Other Household Members Other:: Niece and her daughter Housing: Detention Do you presently have visiting nurse or other home services: Yes Unable to assess alcohol history related to: Unable to respond Alcohol intake: former Patient Tobacco Use Status: Former Tobacco user Tobacco use type: Cigarette Cigarette Packs Per Day: 1 Cigarettes Per Day: 20 Years Smoked: 53 years e-Cigarette/Vaping Use: Never Used Second Hand Smoke Exposure: Yes Use of substances other than those prescribed or required for medical reasons: Unable to respond Substance Use Type: Crack/Cocaine and Marijuana Have you been hit, kicked, punched, or otherwise hurt by someone within the past year? If so, by whom?: No Do you feel safe in your current relationship?: No Current Relationship Is there a partner from a previous relationship who is making you feel unsafe now?: No Are you made to feel afraid or neglected: No Advance Directives: No Advance Directives Information Provided: No Do you have a plan to hurt others: No Plan Recently lost weight without trying: Unsure Nutrition Risks: No Nutritional Risk Poor oral hygiene: No service: No Current occupational status: retired Sexual orientation: Straight/Heterosexual Cognitive needs: Yes Hearing needs: No Vision needs: Yes (Glasses) Meds Allergies Allergy/AdvReac Type Severity Reaction Status Date / Time No Known Allergies Allergy Verified 10/26/24 16:16 Active Medications: Current Medications Acetaminophen (Acetaminophen 325 Mg Tablet) 650 mg PO Q6H PRN PRN Reason: Pain, Mild 1-3,fever,headache Calcium Carbonate (Calcium Carbonate 750 Mg Tab.Chew) 750 mg PO Q4H PRN PRN Reason: Heartburn Ceftriaxone Sodium (Ceftriaxone Sodium 1 Gm Vial) 1 gm IVPUSH Q24H [facility] Albumin Human (Kedbumin 25 %) 100 mls @ 133.333 mls/hr IV Q1H VITALY Stop: 10/26/24 19:44 Last Admin: 10/26/24 18:45 Dose: 133.33 mls/hr Magnesium Hydroxide (Milk Of Magnesia 30 Ml Oral.Susp) 30 ml PO DAILY PRN PRN Reason: Constipation Melatonin (Melatonin 3 Mg Tablet) 6 mg PO BEDTIME PRN PRN Reason: Insomnia Sodium Chloride (0.9 % Sodium Chloride Flush 3 Ml Syringe) 3 ml IVFLUSH QSHIFT [facility] Home Medications ?Medication ?Instructions ?Recorded ?Confirmed ?Last Taken ?Type bisacodyl 10 mg rectal suppository 10 mg TN DAILY PRN constipation 09/30/24 10/26/24 Unknown History cetirizine 10 mg tablet (All Day 10 mg PO DAILY PRN allergies 09/30/24 10/26/24 Unknown History Allergy (cetirizine)) divalproex 250 mg tablet,extended 750 mg PO BEDTIME 09/30/24 10/26/24 Unknown History release 24 hr divalproex 500 mg tablet,extended 500 mg PO DAILY 09/30/24 10/26/24 Unknown History release 24 hr docusate sodium 100 mg tablet 100 mg PO BID 09/30/24 10/26/24 Unknown History melatonin 3 mg tablet 3 mg PO BEDTIME 09/30/24 10/26/24 Unknown History montelukast 10 mg tablet 10 mg PO DAILY 09/30/24 10/26/24 Unknown History omeprazole 20 mg capsule,delayed 20 mg PO DAILY 09/30/24 10/26/24 Unknown History release polyethylene glycol 3350 17 17 g PO DAILY 09/30/24 10/26/24 Unknown History gram/dose oral powder sodium phosphates 19 gram-7 118 ml TN DAILY PRN Constipation 09/30/24 10/26/24 Unknown History gram/118 mL enema (Fleet Enema) tiotropium bromide 2.5 2 puff inhalation DAILY 09/30/24 10/26/24 Unknown History mcg/actuation mist for inhalation (Spiriva Respimat) oxycodone 5 mg tablet 5 mg PO BID 10/26/24 10/26/24 Unknown History oxycodone 5 mg tablet 5 mg PO Q6H PRN Pain (Scale Score 10/26/24 10/26/24 Unknown History 7-10) sennosides 8.6 mg tablet (senna) 17.2 mg PO BID 10/26/24 10/26/24 Unknown History trazodone 50 mg tablet 75 mg PO BEDTIME PRN sleep 10/26/24 10/26/24 Unknown History ziprasidone HCl 80 mg capsule 80 mg PO BID 10/26/24 10/26/24 Unknown History Physical Exam Vital Signs and Narrative: Vital Signs: Last Vital Signs Temp 98.9 F 10/26/24 18:06 Pulse 61 10/26/24 18:06 Resp 19 10/26/24 18:06 BP 113/49 L 10/26/24 18:21 Pulse Ox 95 10/26/24 18:06 O2 Del Method Room Air 10/26/24 18:06 BMI result Body Mass Index 27.9 Gen: Appears be in no acute distress HEENT: NCAT, Moist mucosa. Pulmonary: Vesicular breath sounds, fair air entry CVS: Normal S1-S2 Abdomen: BS+, Soft, Nontender Extremities: Warm well perfused Neuro: Alert and awake. Results Labs 10/26/24 16:25 10/26/24 16:25 Labs: Laboratory Results - last 24 hr 10/26/24 10/26/24 10/26/24 16:25 16:35 17:39 MCV 86.9 MCH 30.1 MCHC 34.7 RDW 13.9 Plt Count 154 L MPV 9.1 L Immature Gran % (Auto) 0.4 Neut % (Auto) 77.8 H Lymph % (Auto) 8.9 L [place] % (Auto) 11.1 H Eos % (Auto) 1.6 Baso % (Auto) 0.2 Lymph # (Auto) 0.7 L [place] # (Auto) 0.9 Eos # (Auto) 0.1 Baso # (Auto) 0.0 Abs Immat Gran (auto) 0.03 Absolute Neuts (auto) 6.4 Absolute Nucleated RBC 0.000 Nucleated RBC % (auto) 0.0 PT 15.9 H INR 1.4 H VBG pH 7.39 VBG pCO2 50 VBG pO2 33 VBG HCO3 31 H VBG O2 Saturation 44.0 VBG Base Excess 5.0 Anion Gap 11 L Estim Creat Clear Calc 86.6 Estimated GFR > 60 Random Glucose 152 H Lactic Acid 1.5 Calcium 8.8 Magnesium 1.9 Total Bilirubin 0.7 AST 34 ALT 6 Alkaline Phosphatase 72 Troponin I High Sens 6.1 Total Protein 7.0 Albumin 3.3 L Urine Color Dark Yellow Urine Appearance Cloudy Urine pH 6.0 Ur Specific [place] 1.015 Urine Protein 100 (2+) H Urine Glucose (UA) Negative Urine Ketones Negative Urine Blood Moderate (2+) H Urine Nitrite Positive H Ur Leukocyte Esterase Large (3+) H Urine RBC 11-20 H Urine WBC >50 H Ur Squamous Epith Cells 0-2 Urine Bacteria 4+ Hyaline Casts 0-2 Valproic Acid 70.6 Influenza Type A (PCR) NEGATIVE Influenza Type B (PCR) NEGATIVE RSV RNA Qual (PCR) NEGATIVE SARS-CoV-2 RNA (RT-PCR) NEGATIVE Assessment and Plan (1) Acute UTI: Status: Acute Plan 69-year-old male with a past medical history of extreme COPD CHF, AFib SIADH CAD status post CABG, 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 Noted to have UTI.Admitted for following Hypotension: Multifactorial. In setting of poor intake/diuretic use/antihypertensives. Patient also found to be having UTI but not floridly septic. Blood pressure improved after 1 L of IV fluids and albumin. Hold home antihypertensives. Hold home diuretics for the 1st 24 hours. Monitor vitals closely UTI: Microscopic hematuria: Continue ceftriaxone Follow-up cultures Benign abdominal examination Hyponatremia: Patient's sodium levels on presentation were 127. Patient has known history of SIADH. Fluid restriction AFib: Rate controlled. Continue home Eliquis Mood disorder/schizophrenia: Continue home Depakote COPD: Stable DVT prophylaxis: Patient on Eliquis Code status: Full code Quality Stroke Does the patient have a stroke diagnosis?: No VTE Prior VTE?: No VTE Risk Level:: Medical - moderate - high VTE Device Contraindication: Patient Refused VTE Drug Contraindication: N/A - Med Ordered
[2024-10-26 19:21] VITALS: BP 110/43; PULSE 61; RESP 14; O2SAT 98
--- NOTE | 2024-10-26 19:21 | PC.NURSE ---
This newspaper writer assumed care of this Pt at 1900.
--- NOTE | 2024-10-26 20:00 | PHA.MEDREC ---
Pharmacy Consult ? Medication Reconciliation Pharmacy has completed the medication reconciliation.
[2024-10-27] VITALS (8 sets, daily range): BP systolic 116–151; BP diastolic 53–81; PULSE 60–98; RESP 14–18; TEMP 36.5–37.3; O2SAT 93–95; BMI 28.2
[2024-10-27] MEDS: 0.9 % Sodium Chloride Flush 3 ML SYRINGE IVFLUSH ×3 (00:51→17:09)
[2024-10-27 07:48] LABS: Alanine Aminotransferase 6 U/L (0-40); Albumin Level 4.0 g/dL (3.5-5.0); Alkaline Phosphatase 60 U/L (39-117); Anion Gap 14 (12-20); Aspartate Amino Transferase 29 U/L (5-37); Blood Urea Nitrogen 11 mg/dL (9-16); Calcium 9.1 mg/dL (8.4-10.2); Carbon Dioxide 25 mmol/L (22-29); Chloride 94 mmol/L (96-108); Creatinine Clr Calc Pharmacy 132.9; Estimated Glomerular Filt Rate > 60; Potassium 3.8 mmol/L (3.3-5.1); Sodium 129 mmol/L (135-145); Total Protein 7.0 g/dL (6.5-8.0)
[2024-10-27] MEDS: Aspirin Enteric Coated 81 MG TABLET.DR PO (08:10)
[2024-10-27] MEDS: oxyCODONE HCl Immed Release 5 MG TABLET PO ×2 (08:11→20:42)
--- NOTE | 2024-10-27 10:04 | HO.PM.IMPN ---
Subjective Subjective Date of Service: 10/27/24 Interval History: feeling better cough Physical Exam Vital Signs: Vital Signs: Last Vital Signs Temp 98.2 F 10/27/24 08:00 Pulse 68 10/27/24 08:00 Resp 16 10/27/24 08:00 BP 116/53 L 10/27/24 08:00 Pulse Ox 94 10/27/24 08:00 O2 Del Method Room Air 10/27/24 08:00 BMI result Body Mass Index 28.2 General: AO X 3, no acute distress Resp: rhocnhi bilateral, no accessory muscles used CVS: S1,S2,RRR GI: soft, non tender, non distended Neuro: motor grossly intact, alert Psych: appropriate affect, appropriate insight Objective Data Active Medications Acetaminophen (Acetaminophen 325 Mg Tablet) 650 mg PO Q6H PRN PRN Reason: Pain, Mild 1-3,fever,headache Albuterol/Ipratropium (Albuterol/Iprat 2.5/0.5mg 3 Ml Ampul.Neb) 3 ml INHALE RQ4H WHILE AWAKE PRN PRN Reason: Shortness of Breath Apixaban (Apixaban 5 Mg Tablet) 5 mg PO BID [facility] Last Admin: 10/27/24 08:10 Dose: 5 mg Documented By: DIETER Aspirin (Aspirin Enteric Coated 81 Mg Tablet.Dr) 81 mg PO DAILY [facility] Last Admin: 10/27/24 08:10 Dose: 81 mg Documented By: DIETER Atorvastatin Calcium (Atorvastatin Calcium 40 Mg Tablet) 40 mg PO BEDTIME [facility] Bisacodyl (Bisacodyl 10 Mg Supp.Rect) 10 mg AL DAILY PRN PRN Reason: constipation Calcium Carbonate (Calcium Carbonate 750 Mg Tab.Chew) 750 mg PO Q4H PRN PRN Reason: Heartburn Carvedilol (Carvedilol 3.125 Mg Tablet) 3.125 mg PO Q12H [facility]; Protocol Last Admin: 10/27/24 05:35 Dose: 3.125 mg Documented By: DIETER Ceftriaxone Sodium (Ceftriaxone Sodium 1 Gm Vial) 1 gm IVPUSH Q24H [facility] Divalproex Sodium (Divalproex Sodium Er 500 Mg Tab.Er.24h) 500 mg PO DAILY [facility] Last Admin: 10/27/24 08:10 Dose: 500 mg Documented By: DIETER Divalproex Sodium (Divalproex Sodium Er 250 Mg Tab.Er.24h) 750 mg PO BEDTIME [facility] Magnesium Hydroxide (Milk Of Magnesia 30 Ml Oral.Susp) 30 ml PO DAILY PRN PRN Reason: Constipation Melatonin (Melatonin 3 Mg Tablet) 6 mg PO BEDTIME PRN PRN Reason: Insomnia Montelukast Sodium (Montelukast Sodium 10 Mg Tablet) 10 mg PO DAILY [facility] Last Admin: 10/27/24 08:10 Dose: 10 mg Documented By: DIETER Omeprazole (Omeprazole 20 Mg Capsule.Dr) 20 mg PO DAILY@0630 [facility] Last Admin: 10/27/24 05:35 Dose: 20 mg Documented By: DIETER Oxycodone HCl (Oxycodone Hcl Immed Release 5 Mg Tablet) 5 mg PO BID [facility] Last Admin: 10/27/24 08:11 Dose: 5 mg Documented By: DIETER Oxycodone HCl (Oxycodone Hcl Immed Release 5 Mg Tablet) 5 mg PO Q6H PRN PRN Reason: Pain (Scale Score 7-10) Sodium Chloride (0.9 % Sodium Chloride Flush 3 Ml Syringe) 3 ml IVFLUSH QSHIFT [facility] Last Admin: 10/27/24 05:35 Dose: 3 ml Documented By: DIETER Ziprasidone (Ziprasidone 80 Mg Capsule) 80 mg PO BID [facility] Last Admin: 10/27/24 08:10 Dose: 80 mg Documented By: DIETER Labs 10/26/24 16:25 10/27/24 06:39 Labs: Laboratory Results - last 24 hr 10/26/24 10/26/24 10/26/24 16:25 16:35 17:39 MCV 86.9 MCH 30.1 MCHC 34.7 RDW 13.9 Plt Count 154 L MPV 9.1 L Immature Gran % (Auto) 0.4 Neut % (Auto) 77.8 H Lymph % (Auto) 8.9 L [place] % (Auto) 11.1 H Eos % (Auto) 1.6 Baso % (Auto) 0.2 Lymph # (Auto) 0.7 L [place] # (Auto) 0.9 Eos # (Auto) 0.1 Baso # (Auto) 0.0 Abs Immat Gran (auto) 0.03 Absolute Neuts (auto) 6.4 Absolute Nucleated RBC 0.000 Nucleated RBC % (auto) 0.0 Hold Purple Top PT 15.9 H INR 1.4 H VBG pH 7.39 VBG pCO2 50 VBG pO2 33 VBG HCO3 31 H VBG O2 Saturation 44.0 VBG Base Excess 5.0 Anion Gap 11 L Estim Creat Clear Calc 86.6 Estimated GFR > 60 Random Glucose 152 H Lactic Acid 1.5 Calcium 8.8 Magnesium 1.9 Total Bilirubin 0.7 AST 34 ALT 6 Alkaline Phosphatase 72 Troponin I High Sens 6.1 Total Protein 7.0 Albumin 3.3 L Urine Color Dark Yellow Urine Appearance Cloudy Urine pH 6.0 Ur Specific [place] 1.015 Urine Protein 100 (2+) H Urine Glucose (UA) Negative Urine Ketones Negative Urine Blood Moderate (2+) H Urine Nitrite Positive H Ur Leukocyte Esterase Large (3+) H Urine RBC 11-20 H Urine WBC >50 H Ur Squamous Epith Cells 0-2 Urine Bacteria 4+ Hyaline Casts 0-2 Valproic Acid 70.6 Influenza Type A (PCR) NEGATIVE Influenza Type B (PCR) NEGATIVE RSV RNA Qual (PCR) NEGATIVE SARS-CoV-2 RNA (RT-PCR) NEGATIVE 10/27/24 06:39 MCV MCH MCHC RDW Plt Count MPV Immature Gran % (Auto) Neut % (Auto) Lymph % (Auto) [place] % (Auto) Eos % (Auto) Baso % (Auto) Lymph # (Auto) [place] # (Auto) Eos # (Auto) Baso # (Auto) Abs Immat Gran (auto) Absolute Neuts (auto) Absolute Nucleated RBC Nucleated RBC % (auto) Hold Purple Top SEE NOTE PT INR VBG pH VBG pCO2 VBG pO2 VBG HCO3 VBG O2 Saturation VBG Base Excess Anion Gap 14 Estim Creat Clear Calc 132.9 Estimated GFR > 60 Random Glucose 82 Lactic Acid Calcium 9.1 Magnesium Total Bilirubin 0.6 AST 29 ALT 6 Alkaline Phosphatase 60 Troponin I High Sens Total Protein 7.0 Albumin 4.0 Urine Color Urine Appearance Urine pH Ur Specific [place] Urine Protein Urine Glucose (UA) Urine Ketones Urine Blood Urine Nitrite Ur Leukocyte Esterase Urine RBC Urine WBC Ur Squamous Epith Cells Urine Bacteria Hyaline Casts Valproic Acid Influenza Type A (PCR) Influenza Type B (PCR) RSV RNA Qual (PCR) SARS-CoV-2 RNA (RT-PCR) Microbiology Microbiology Results: Microbiology 10/26/24 Unknown Urine Culture - Preliminary Urine clean catch - Clean Catch Midstream Gram negative lewis Assessment and Plan (1) Ischemic cardiomyopathy: Status: Acute Plan 69M PMH copd, chronic systolic CHF, paroxysmal AFib, SIADH, coronary artery disease status post CABG, TIA, schizophrenia [facility] and bradycardia Transient hypotension bradycardia likely due to aspiration pneumonitis Continue ceftriaxone, follow up speech Urinary tract infection Continue ceftriaxone, follow up cultures Chronic hyponatremia due to SIADH Fluid restrict Paroxysmal AFib Continue Eliquis Carvedilol Mood disorder/schizophrenia Depakote Coronary artery disease Aspirin, Eliquis, statin Chronic systolic CHF Coreg DVT prophylaxis on Eliquis Full Code reason for continued hospitalization: Cultures Quality Stroke Does the patient have a stroke diagnosis?: No VTE Prior VTE?: No VTE Risk Level:: Medical - moderate - high VTE Device Contraindication: Patient Refused VTE Drug Contraindication: N/A - Med Ordered
--- NOTE | 2024-10-27 11:31 | MHC.CM.PN ---
IMM 10/27/24 BIBA [facility] DX HYPOTENSION, BRADYCARDIAB UTI+ He requires assist with ADLs. He is WC bound. Molst on file. A return referral has been sent to [facility]. PCP Dr Geena Lee DP return to [facility] via BLS.
[2024-10-27] MEDS: Divalproex Sodium ER 250 MG TAB.ER.24H 750 MG PO (20:42)
[2024-10-28] VITALS (13 sets, daily range): BP systolic 74–151; BP diastolic 42–85; PULSE 62–69; RESP 16–18; TEMP 36.1–37.2; O2SAT 91–97
[2024-10-28] MEDS: 0.9 % Sodium Chloride Flush 3 ML SYRINGE IVFLUSH ×4 (00:25→19:52)
[2024-10-28] MEDS: Aspirin Enteric Coated 81 MG TABLET.DR PO (08:41)
[2024-10-28] MEDS: oxyCODONE HCl Immed Release 5 MG TABLET PO (08:42)
[2024-10-28 09:41] LABS: Hematocrit 34.1 % (42.0-52.0); Hemoglobin 11.8 g/dl (14.0-18.0); Mean Corpuscular HGB Conc 34.6 g/dl (31.0-36.0); Mean Corpuscular Hemoglobin 30.3 pg (27.0-33.0); Mean Corpuscular Volume 87.4 fL (80.0-98.0); NRBC Abs Auto 0.000 X10*3/uL (0.0-0.012); NRBC Pct Auto 0.0 /100WBC (0.0-0.2); Platelet Count 189 X10*3/uL (160-400); Red Blood Count 3.90 X10*6/uL (4.60-5.80); White Blood Count 6.2 X10*3/uL (4.8-10.8)
--- NOTE | 2024-10-28 09:41 | P.PNIM_ITS ---
Subjective Subjective Date of Service: 10/28/24 Interval History: feeling better cough Physical Exam 2 Vital Signs: Vital Signs: Last Vital Signs Temp 98 F 10/28/24 07:17 Pulse 65 10/28/24 07:17 Resp 16 10/28/24 07:17 BP 151/71 H 10/28/24 07:17 Pulse Ox 94 10/28/24 07:17 O2 Del Method Room Air 10/28/24 07:17 BMI result Body Mass Index 28.2 General: AO X 3, no acute distress Resp: rhocnhi bilateral, no accessory muscles used CVS: S1,S2,RRR GI: soft, non tender, non distended Neuro: motor grossly intact, alert Psych: appropriate affect, appropriate insight Objective Data Active Medications Acetaminophen (Acetaminophen 325 Mg Tablet) 650 mg PO Q6H PRN PRN Reason: Pain, Mild 1-3,fever,headache Albuterol/Ipratropium (Albuterol/Iprat 2.5/0.5mg 3 Ml Ampul.Neb) 3 ml INHALE RQ4H WHILE AWAKE PRN PRN Reason: Shortness of Breath Apixaban (Apixaban 5 Mg Tablet) 5 mg PO BID [facility] Last Admin: 10/28/24 08:41 Dose: 5 mg Documented By: NORTH Aspirin (Aspirin Enteric Coated 81 Mg Tablet.) 81 mg PO DAILY [facility] Last Admin: 10/28/24 08:41 Dose: 81 mg Documented By: NORTH Atorvastatin Calcium (Atorvastatin Calcium 40 Mg Tablet) 40 mg PO BEDTIME [facility] Last Admin: 10/27/24 20:42 Dose: 40 mg Documented By: JAMES Bisacodyl (Bisacodyl 10 Mg Supp.Rect) 10 mg [place] DAILY PRN PRN Reason: constipation Calcium Carbonate (Calcium Carbonate 750 Mg Tab.Chew) 750 mg PO Q4H PRN PRN Reason: Heartburn Carvedilol (Carvedilol 3.125 Mg Tablet) 3.125 mg PO Q12H [facility]; Protocol Last Admin: 10/28/24 05:49 Dose: 3.125 mg Documented By: JAMES Ceftriaxone Sodium (Ceftriaxone Sodium 1 Gm Vial) 1 gm IVPUSH Q24H [facility] Last Admin: 10/27/24 17:09 Dose: 1 gm Documented By: PALOMO Divalproex Sodium (Divalproex Sodium Er 500 Mg Tab.Er.24h) 500 mg PO DAILY [facility] Last Admin: 10/28/24 08:41 Dose: 500 mg Documented By: NORTH Divalproex Sodium (Divalproex Sodium Er 250 Mg Tab.Er.24h) 750 mg PO BEDTIME [facility] Last Admin: 10/27/24 20:42 Dose: 750 mg Documented By: JAMES Magnesium Hydroxide (Milk Of Magnesia 30 Ml Oral.Susp) 30 ml PO DAILY PRN PRN Reason: Constipation Melatonin (Melatonin 3 Mg Tablet) 6 mg PO BEDTIME PRN PRN Reason: Insomnia Montelukast Sodium (Montelukast Sodium 10 Mg Tablet) 10 mg PO DAILY [facility] Last Admin: 10/28/24 08:44 Dose: 10 mg Documented By: NORTH Omeprazole (Omeprazole 20 Mg Capsule.Dr) 20 mg PO DAILY@0630 [facility] Last Admin: 10/28/24 05:49 Dose: 20 mg Documented By: JAMES Oxycodone HCl (Oxycodone Hcl Immed Release 5 Mg Tablet) 5 mg PO BID [facility] Last Admin: 10/28/24 08:42 Dose: 5 mg Documented By: NORTH Oxycodone HCl (Oxycodone Hcl Immed Release 5 Mg Tablet) 5 mg PO Q6H PRN PRN Reason: Pain (Scale Score 7-10) Sodium Chloride (0.9 % Sodium Chloride Flush 3 Ml Syringe) 3 ml IVFLUSH QSHIFT [facility] Last Admin: 10/28/24 08:44 Dose: 3 ml Documented By: NORTH Ziprasidone (Ziprasidone 80 Mg Capsule) 80 mg PO BID [facility] Last Admin: 10/28/24 08:41 Dose: 80 mg Documented By: NORTH Labs 10/26/24 16:25 10/27/24 06:39 Microbiology Microbiology Results: Microbiology 10/26/24 Unknown Urine Culture - Preliminary Urine clean catch - Clean Catch Midstream Escherichia coli 10/26/24 16:25 Blood Culture - Preliminary Blood - Venous No growth after 24 hours. 10/26/24 16:25 Blood Culture - Preliminary Blood - Venous No growth after 24 hours. Assessment and Plan (1) Ischemic cardiomyopathy: Status: Acute Plan 69M PMH copd, chronic systolic CHF, paroxysmal AFib, SIADH, coronary artery disease status post CABG, TIA, schizophrenia presented from [facility] with hypotension and bradycardia Transient hypotension bradycardia likely due to aspiration pneumonitis Continue ceftriaxone, follow up speech Urinary tract infection Continue ceftriaxone, follow up cultures Chronic hyponatremia due to SIADH Fluid restrict Paroxysmal AFib Continue Eliquis Carvedilol Mood disorder/schizophrenia Depakote Coronary artery disease Aspirin, Eliquis, statin Chronic systolic CHF Coreg DVT prophylaxis on Eliquis Full Code reason for continued hospitalization: Cultures Quality Stroke Does the patient have a stroke diagnosis?: No VTE Prior VTE?: No VTE Risk Level:: Medical - moderate - high VTE Device Contraindication: Patient Refused VTE Drug Contraindication: N/A - Med Ordered
[2024-10-28 10:11] LABS: Anion Gap 12 (12-20); Blood Urea Nitrogen 9 mg/dL (9-16); Calcium 9.7 mg/dL (8.4-10.2); Carbon Dioxide 25 mmol/L (22-29); Chloride 94 mmol/L (96-108); Creatinine Clr Calc Pharmacy 126.4; Estimated Glomerular Filt Rate > 60; Magnesium 1.8 mg/dL (1.6-2.6); Potassium 4.0 mmol/L (3.3-5.1); Sodium 127 mmol/L (135-145)
[2024-10-28 11:30] LABS: Glucose, Whole Blood 111 mg/dL (60-115)
--- NOTE | 2024-10-28 11:35 | MHC.CM.PN ---
EMR REVIEWED, ANTIC PT WILL BE CLEARED BY TOMORROW 10/29 TO RETURN TO [facility], CM WILL CONT TO FOLLOW DC NEEDS.
--- NOTE | 2024-10-28 11:45 | MHC.SL.SWA ---
Speech Pathologist Impression: Mild to moderate oral, mild pharyngeal dysphagia Risk of Aspiration Due to: Missing dentition Decreased safety awareness Need for cueing/assist with PO intake Suspected aspiration pneumonitis Dysphasia Diet Status: [facility] NDD3 (chopped) diet with thin liquids, aspiration precautions, 1:1 assist with PO Liquid Consistency and Strategies for Safe Swallow: Liquid Intake Recommendation: Thin Liquid Intake Strategies: Solid Food Consistency: Dietary Recommendations: Chopped/Advanced (NDD3) Additional Modifications to Solid Foods: Pt would benefit from continued monitoring/evaluating/modifying PO intake to identify and recommend least restrictive diet. Skilled treatment by SOFA INSPECTOR at his facility is indicated for pt upon d/c from [facility]. Supervision While Eating and Drinking for Safe Swallow: Direct Supervision (1:1) Foods to Avoid: Swallowing Recommended Treatments: Compensatory strategies, diet modifications, educate for safety Recommendation for Speech: Inpatient Speech Therapy Comment: FLOSSER feeding pt when SOFA INSPECTOR arrived. Pt unable to hold utensils but could hold cup independently. Pt's oromotor functioning observed to be within adequate limits for lip, tongue and jaw mobility. Oral containment WNL for regular solids, soft solids, purees and thins. Pt is edentulous and attempts to chew regular solids with decreased efficiency, resulting in mild pocketing of material on R side of mouth. Pt sipped thin liquids by cup to moisten material and improve bolus formation. Pt elicited cough intermittently during PO intake, with infrequent wet voicing. Reflexive throat clear triggered upon congested voicing. Coughing and throat clear considered typical as pt spoke when eating. Pt tolerated soft solids, purees and thins with adequate oropharyngeal coordination; 1:1 assist necessary d/t UE weakness. Pt expressed that he did not want 'mush' for food. SOFA INSPECTOR explained dysphagia diet level recommended (NDD3). Pt in agreement with diet recommendations. product promoter sales person at pt residence consulted to gain information on pt history and review current SOFA INSPECTOR POC. Frequency/Duration: M-F Daily Date Range for Service Req: Timeline to reassess: Payroll And Benefits Manager Clinican/Clinical Fellow: No Supervisory Statement: I have reviewed and agree with the student/clinical fellow's documentation: N/A Speech Language Pathologist: Jodie Cam M.S., CCC-SOFA INSPECTOR
[2024-10-28] MEDS: Albumin Human 25 % 100 ML IV ×2 (12:53→18:40)
--- NOTE | 2024-10-28 18:56 | PC.NURSE ---
Pt's blood pressure was 74/46, assessed the pt and pt was sleepy, wakes to his name. reported to Dr. Gutierrez and he ordered Normal Saline Bolus 1000mL. Dr. Gutierrez was in pt's room to assess. Upon completion of bolus, pt's blood pressure was 80/44. Dr Deshawn Moseley was aware of pt's blood pressure, and ordered 2 bags of albumin. After the first albumin, pt's BP was 110/50, pt seems to be back to his normal status. BP 1 hour later stayed stable, 114/64.
[2024-10-28] MEDS: Divalproex Sodium ER 250 MG TAB.ER.24H 750 MG PO (19:50)
[2024-10-28] MEDS: traZODone HCL 25 MG HALFTAB 75 MG PO (23:02)
[2024-10-29] VITALS (7 sets, daily range): BP systolic 121–162; BP diastolic 53–77; PULSE 59–78; RESP 16–18; TEMP 36.7–37.4; O2SAT 93–98
[2024-10-29] MEDS: 0.9 % Sodium Chloride Flush 3 ML SYRINGE IVFLUSH ×3 (07:45→20:54)
[2024-10-29] MEDS: Aspirin Enteric Coated 81 MG TABLET.DR PO (07:46)
[2024-10-29 09:39] LABS: Hematocrit 31.9 % (42.0-52.0); Hemoglobin 10.9 g/dl (14.0-18.0); Mean Corpuscular HGB Conc 34.2 g/dl (31.0-36.0); Mean Corpuscular Hemoglobin 29.7 pg (27.0-33.0); Mean Corpuscular Volume 86.9 fL (80.0-98.0); NRBC Abs Auto 0.000 X10*3/uL (0.0-0.012); NRBC Pct Auto 0.0 /100WBC (0.0-0.2); Platelet Count 147 X10*3/uL (160-400); Red Blood Count 3.67 X10*6/uL (4.60-5.80); White Blood Count 4.8 X10*3/uL (4.8-10.8)
[2024-10-29 09:44] LABS: Ammonia 37 umol/L (13-55)
[2024-10-29 09:54] LABS: Anion Gap 11 (12-20); Blood Urea Nitrogen 11 mg/dL (9-16); Calcium 8.8 mg/dL (8.4-10.2); Carbon Dioxide 26 mmol/L (22-29); Chloride 97 mmol/L (96-108); Creatinine Clr Calc Pharmacy 128.5; Estimated Glomerular Filt Rate > 60; Potassium 3.7 mmol/L (3.3-5.1); Sodium 130 mmol/L (135-145)
--- NOTE | 2024-10-29 11:05 | P.PNIM_ITS ---
Subjective Subjective Date of Service: 10/29/24 Interval History: feeling better cough Physical Exam 2 Vital Signs: Vital Signs: Last Vital Signs Temp 99 F 10/29/24 07:02 Pulse 73 10/29/24 07:02 Resp 16 10/29/24 07:02 BP 155/70 H 10/29/24 07:02 Pulse Ox 95 10/29/24 07:02 O2 Del Method Room Air 10/29/24 07:02 BMI result Body Mass Index 28.2 General: AO X 3, no acute distress Resp: rhocnhi bilateral, no accessory muscles used CVS: S1,S2,RRR GI: soft, non tender, non distended Neuro: motor grossly intact, alert Psych: appropriate affect, appropriate insight Objective Data Active Medications Acetaminophen (Acetaminophen 325 Mg Tablet) 650 mg PO Q6H PRN PRN Reason: Pain, Mild 1-3,fever,headache Last Admin: 10/28/24 17:33 Dose: 650 mg Documented By: ZACHARY Albuterol/Ipratropium (Albuterol/Iprat 2.5/0.5mg 3 Ml Ampul.Neb) 3 ml INHALE RQ4H WHILE AWAKE PRN PRN Reason: Shortness of Breath Apixaban (Apixaban 5 Mg Tablet) 5 mg PO BID [facility] Last Admin: 10/29/24 07:45 Dose: 5 mg Documented By: TRINY Aspirin (Aspirin Enteric Coated 81 Mg Tablet.Dr) 81 mg PO DAILY [facility] Last Admin: 10/29/24 07:46 Dose: 81 mg Documented By: TRINY Atorvastatin Calcium (Atorvastatin Calcium 40 Mg Tablet) 40 mg PO BEDTIME [facility] Last Admin: 10/28/24 19:50 Dose: 40 mg Documented By: ROSALINE Bisacodyl (Bisacodyl 10 Mg Supp.Rect) 10 mg [place] DAILY PRN PRN Reason: constipation Calcium Carbonate (Calcium Carbonate 750 Mg Tab.Chew) 750 mg PO Q4H PRN PRN Reason: Heartburn Carvedilol (Carvedilol 3.125 Mg Tablet) 3.125 mg PO Q12H [facility]; Protocol Last Admin: 10/29/24 04:40 Dose: Not Given Documented By: ROSALINE Non-Admin Reason: per protocol Divalproex Sodium (Divalproex Sodium Er 500 Mg Tab.Er.24h) 500 mg PO DAILY [facility] Last Admin: 10/29/24 07:46 Dose: 500 mg Documented By: TRINY Divalproex Sodium (Divalproex Sodium Er 250 Mg Tab.Er.24h) 750 mg PO BEDTIME [facility] Last Admin: 10/28/24 19:50 Dose: 750 mg Documented By: ROSALINE Magnesium Hydroxide (Milk Of Magnesia 30 Ml Oral.Susp) 30 ml PO DAILY PRN PRN Reason: Constipation Melatonin (Melatonin 3 Mg Tablet) 6 mg PO BEDTIME PRN PRN Reason: Insomnia Meropenem (Meropenem 1 Gm Vial) 1 gm IVPUSH Q8H [facility] Last Admin: 10/29/24 05:16 Dose: 1 gm Documented By: ROSALINE Montelukast Sodium (Montelukast Sodium 10 Mg Tablet) 10 mg PO DAILY [facility] Last Admin: 10/29/24 07:45 Dose: 10 mg Documented By: TRINY Omeprazole (Omeprazole 20 Mg Capsule.Dr) 20 mg PO DAILY@0630 [facility] Last Admin: 10/29/24 06:11 Dose: 20 mg Documented By: ROSALINE Sodium Chloride (0.9 % Sodium Chloride Flush 3 Ml Syringe) 3 ml IVFLUSH QSHIFT [facility] Last Admin: 10/29/24 07:45 Dose: 3 ml Documented By: TRINY Trazodone HCl (Trazodone Hcl 25 Mg Halftab) 75 mg PO BEDTIME PRN PRN Reason: insomnia Last Admin: 10/28/24 23:02 Dose: 75 mg Documented By: ROSALINE Ziprasidone (Ziprasidone 80 Mg Capsule) 80 mg PO BID [facility] Last Admin: 10/29/24 07:46 Dose: 80 mg Documented By: TRINY Labs 10/29/24 09:25 10/29/24 09:25 Labs: Laboratory Results - last 24 hr 10/28/24 10/29/24 10/29/24 11:27 08:35 09:25 MCV 86.9 MCH 29.7 MCHC 34.2 RDW 13.6 Plt Count 147 L MPV 8.9 L Absolute Nucleated RBC 0.000 Nucleated RBC % (auto) 0.0 Anion Gap 11 L Estim Creat Clear Calc 128.5 Estimated GFR > 60 POC Glucose 111 Random Glucose 103 Calcium 8.8 D Ammonia 37 Random Cortisol 7.2 Microbiology Microbiology Results: Microbiology 10/26/24 Unknown Urine Culture - Final Urine clean catch - Clean Catch Midstream Escherichia coli 10/26/24 16:25 Blood Culture - Preliminary Blood - Venous No growth after 48 hours. 10/26/24 16:25 Blood Culture - Preliminary Blood - Venous No growth after 48 hours. Assessment and Plan (1) Ischemic cardiomyopathy: Status: Acute Plan 69M PMH copd, chronic systolic CHF, paroxysmal AFib, SIADH, coronary artery disease status post CABG, TIA, schizophrenia [facility] and [facility] Transient hypotension bradycardia likely due to aspiration pneumonitis Continue karime bologna lacer -NDD3, thins coritsol normal Urinary tract infection culture growing esbl - changed to karime, likely 2 weeks iv ertapenem (end 11/08/24) Chronic hyponatremia due to SIADH Fluid restrict, improved Paroxysmal AFib Continue Eliquis Carvedilol Mood disorder/schizophrenia Depakote Coronary artery disease Aspirin, Eliquis, statin Chronic systolic CHF Coreg DVT prophylaxis on Eliquis Full Code reason for continued hospitalization: hypotensive episode recurrence Quality Stroke Does the patient have a stroke diagnosis?: No VTE Prior VTE?: No VTE Risk Level:: Medical - moderate - high VTE Device Contraindication: Patient Refused VTE Drug Contraindication: N/A - Med Ordered
[2024-10-29] MEDS: Milk of Magnesia 30 ML ORAL.SUSP PO (14:48)
--- NOTE | 2024-10-29 15:42 | MHC.SL.SWA ---
Dysphasia Diet Status: no change Liquid Consistency and Strategies for Safe Swallow: Liquid Intake Recommendation: Thin Liquid Intake Strategies: Small Sips Solid Food Consistency: Dietary Recommendations: Chopped/Advanced (NDD3) Additional Modifications to Solid Foods: extra sauce/gravy Oral Medication Intake: Whole with Liquid Please contact the pharmacy regarding appropriate crushable or liquid drug formulations that are available whenever modified delivery is recommended. Compensatory Strategies and Precautions to be Taken for Safe Swallow: Sitting Upright (90 deg) Small Bites and Sips Supervision While Eating and Drinking for Safe Swallow: Direct Supervision (1:1) Foods to Avoid: dry, sticky, hard to chew foods. Recommendation for Speech: Inpatient Speech Therapy Comment: Recommend pt continue with chopped solids d/t edentulous state. Recommend thin liquids. Pills whole w/ water ok per RN. Recommend extra sauce/gravy with meals. Recommend 1 f/u w/ [employer] MACHINE OPERATOR to ensure toleration of diet, particularly thin liquids. Recommend continued dysphagia tx at next level of care once pt obtains dentures to upgrade diet if warranted. Frequency/Duration: 1 f/u Tap Puller Clinican/Clinical Fellow: No Supervisory Statement: I have reviewed and agree with the student/clinical fellow's documentation: N/A Speech Language Pathologist: sEtefani Jay M.A., CCC-[employer] MACHINE OPERATOR
[2024-10-29] MEDS: traZODone HCL 25 MG HALFTAB 75 MG PO (20:52)
[2024-10-29] MEDS: Divalproex Sodium ER 250 MG TAB.ER.24H 750 MG PO (20:52)
[2024-10-30 05:30] VITALS: BP 140/67; PULSE 71; RESP 19; TEMP 36.4; O2SAT 92
[2024-10-30] MEDS: Milk of Magnesia 30 ML ORAL.SUSP PO (06:10)
[2024-10-30 07:00] LABS: Anion Gap 10 (12-20); Blood Urea Nitrogen 13 mg/dL (9-16); Calcium 9.2 mg/dL (8.4-10.2); Carbon Dioxide 29 mmol/L (22-29); Chloride 95 mmol/L (96-108); Creatinine Clr Calc Pharmacy 110.4; Estimated Glomerular Filt Rate > 60; Potassium 4.4 mmol/L (3.3-5.1); Sodium 130 mmol/L (135-145)
[2024-10-30 07:02] LABS: Hematocrit 32.8 % (42.0-52.0); Hemoglobin 11.2 g/dl (14.0-18.0); Mean Corpuscular HGB Conc 34.1 g/dl (31.0-36.0); Mean Corpuscular Hemoglobin 29.5 pg (27.0-33.0); Mean Corpuscular Volume 86.3 fL (80.0-98.0); NRBC Abs Auto 0.000 X10*3/uL (0.0-0.012); NRBC Pct Auto 0.0 /100WBC (0.0-0.2); Platelet Count 185 X10*3/uL (160-400); Red Blood Count 3.80 X10*6/uL (4.60-5.80); White Blood Count 6.5 X10*3/uL (4.8-10.8)
[2024-10-30 08:00] VITALS: BP 118/70; PULSE 72; RESP 17; TEMP 36.5; O2SAT 93
[2024-10-30] MEDS: 0.9 % Sodium Chloride Flush 3 ML SYRINGE IVFLUSH ×2 (09:24→17:23)
[2024-10-30] MEDS: Aspirin Enteric Coated 81 MG TABLET.DR PO (09:24)
--- NOTE | 2024-10-30 10:44 | P.PNIM_ITS ---
Subjective Subjective Date of Service: 10/30/24 Interval History: feeling better, no further hypotensive episodes Physical Exam 2 Vital Signs: Vital Signs: Last Vital Signs Temp 97.7 F 10/30/24 08:00 Pulse 72 10/30/24 08:00 Resp 17 10/30/24 08:00 BP 118/70 10/30/24 08:00 Pulse Ox 93 10/30/24 08:00 O2 Del Method Room Air 10/30/24 08:00 BMI result Body Mass Index 28.2 General: AO X 3, no acute distress Resp: rhocnhi bilateral, no accessory muscles used CVS: S1,S2,RRR GI: soft, non tender, non distended Neuro: motor grossly intact, alert Psych: appropriate affect, appropriate insight Objective Data Active Medications Acetaminophen (Acetaminophen 325 Mg Tablet) 650 mg PO Q6H PRN PRN Reason: Pain, Mild 1-3,fever,headache Last Admin: 10/29/24 18:12 Dose: 650 mg Documented By: NORTH Albuterol/Ipratropium (Albuterol/Iprat 2.5/0.5mg 3 Ml Ampul.Neb) 3 ml INHALE RQ4H WHILE AWAKE PRN PRN Reason: Shortness of Breath Apixaban (Apixaban 5 Mg Tablet) 5 mg PO BID [facility] Last Admin: 10/30/24 09:24 Dose: 5 mg Documented By: PALOMO Aspirin (Aspirin Enteric Coated 81 Mg Tablet.Dr) 81 mg PO DAILY [facility] Last Admin: 10/30/24 09:24 Dose: 81 mg Documented By: PALOMO Atorvastatin Calcium (Atorvastatin Calcium 40 Mg Tablet) 40 mg PO BEDTIME [facility] Last Admin: 10/29/24 20:53 Dose: 40 mg Documented By: RORY Bisacodyl (Bisacodyl 10 Mg Supp.Rect) 10 mg [place] DAILY PRN PRN Reason: constipation Calcium Carbonate (Calcium Carbonate 750 Mg Tab.Chew) 750 mg PO Q4H PRN PRN Reason: Heartburn Carvedilol (Carvedilol 3.125 Mg Tablet) 3.125 mg PO Q12H [facility]; Protocol Last Admin: 10/30/24 05:55 Dose: 3.125 mg Documented By: RORY Divalproex Sodium (Divalproex Sodium Er 500 Mg Tab.Er.24h) 500 mg PO DAILY [facility] Last Admin: 10/30/24 09:24 Dose: 500 mg Documented By: PALOMO Divalproex Sodium (Divalproex Sodium Er 250 Mg Tab.Er.24h) 750 mg PO BEDTIME [facility] Last Admin: 10/29/24 20:52 Dose: 750 mg Documented By: RORY Magnesium Hydroxide (Milk Of Magnesia 30 Ml Oral.Susp) 30 ml PO DAILY PRN PRN Reason: Constipation Last Admin: 10/30/24 06:10 Dose: 30 ml Documented By: RORY Melatonin (Melatonin 3 Mg Tablet) 6 mg PO BEDTIME PRN PRN Reason: Insomnia Last Admin: 10/29/24 21:12 Dose: 6 mg Documented By: RORY Meropenem (Meropenem 1 Gm Vial) 1 gm IVPUSH Q8H [facility] Last Admin: 10/30/24 05:55 Dose: 1 gm Documented By: RORY Montelukast Sodium (Montelukast Sodium 10 Mg Tablet) 10 mg PO DAILY [facility] Last Admin: 10/30/24 09:24 Dose: 10 mg Documented By: PALOMO Omeprazole (Omeprazole 20 Mg Capsule.Dr) 20 mg PO DAILY@0630 [facility] Last Admin: 10/30/24 05:55 Dose: 20 mg Documented By: RORY Sodium Chloride (0.9 % Sodium Chloride Flush 3 Ml Syringe) 3 ml IVFLUSH QSHIFT [facility] Last Admin: 10/30/24 09:24 Dose: 3 ml Documented By: PALOMO Trazodone HCl (Trazodone Hcl 25 Mg Halftab) 75 mg PO BEDTIME PRN PRN Reason: insomnia Last Admin: 10/29/24 20:52 Dose: 75 mg Documented By: RORY Ziprasidone (Ziprasidone 80 Mg Capsule) 80 mg PO BID [facility] Last Admin: 10/30/24 09:24 Dose: 80 mg Documented By: PALOMO Labs 10/30/24 06:25 10/30/24 06:25 Labs: Laboratory Results - last 24 hr 10/30/24 06:25 MCV 86.3 MCH 29.5 MCHC 34.1 RDW 13.7 Plt Count 185 D MPV 8.7 L Absolute Nucleated RBC 0.000 Nucleated RBC % (auto) 0.0 Anion Gap 10 L Estim Creat Clear Calc 110.4 Estimated GFR > 60 Random Glucose 100 Calcium 9.2 Microbiology Microbiology Results: Microbiology 10/26/24 Unknown Urine Culture - Final Urine clean catch - Clean Catch Midstream Escherichia coli Assessment and Plan (1) Ischemic cardiomyopathy: Status: Acute Plan 69M PMH copd, chronic systolic CHF, paroxysmal AFib, SIADH, coronary artery disease status post CABG, TIA, schizophrenia presented from assisted with hypotension and bradycardia Transient hypotension bradycardia likely due to aspiration pneumonitis Continue karime clerical transcriber -NDD3, thins coritsol normal Urinary tract infection culture growing esbl - changed to karime, likely 2 weeks iv ertapenem (end 11/08/24) Chronic hyponatremia due to SIADH Fluid restrict, improved Paroxysmal AFib Continue Eliquis Carvedilol Mood disorder/schizophrenia Depakote Coronary artery disease Aspirin, Eliquis, statin Chronic systolic CHF Coreg DVT prophylaxis on Eliquis Full Code reason for continued hospitalization: dispo planning Quality Stroke Does the patient have a stroke diagnosis?: No VTE Prior VTE?: No VTE Risk Level:: Medical - moderate - high VTE Device Contraindication: Patient Refused VTE Drug Contraindication: N/A - Med Ordered
--- NOTE | 2024-10-30 10:49 | PM.DS ---
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 Patient is alert and awake. Most of the history obtained from the records and the staff. Reportedly the skilled nursing staff noted that the patient's blood pressure was on the lower side and subsequently sent him to the hospital for further evaluation. Per skilled nursing staff patient has been having cough past couple days. It has been having difficulty passing the swallow screen. Denies any choking or aspiration episodes. Denies any fevers. Denies patient complaining of any pain. Denies any nausea vomiting or diarrhea. Review of all other systems is limited. ER course: Per ER team, patient on presentation now developed and awake, appears comfortable; blood pressure was 80 systolic on presentation. Given 1 L of IV fluids and albumin with improvement in the blood pressure. Urinalysis abnormal consistent with UTI. Lactate within normal limits. Chest x-ray showed no acute cardiopulmonary process. Sodium levels were 127. hospital course: Patient was admitted for transient hypotension bradycardia likely due to aspiration pneumonitis. Was seen by speech therapy recommended NDD3 solids and thin liquids. Cortisol was normal. Patient had 1 other episode and then did not recur. It is possible oxycodone was contributing to this and has been discontinued. Patient noted to have urinary tract infection, culture grew ESBL E coli so was treated with meropenem and we will continue 2 weeks to be completed 11/08/2024. For chronic hyponatremia due to SIADH was put on fluid restriction sodium is 130 at time of discharge. For paroxysmal AFib was continued on Eliquis and carvedilol. For mood disorder and schizophrenia was continued on Depakote. For coronary artery disease was continued on aspirin, Eliquis, statin. For chronic systolic CHF was continued on carvedilol. Patient is feeling better will be discharged back to long term facility. Time Attestation Discharge Coordination Time (in mins): 32 Quality: Safe Use of Opioids Does Pt have an Active Cancer Diagnosis on the Problem List?: No Quality: Stroke Does the patient have a stroke diagnosis?: No Physical Exam Vital Signs: Vital Signs: Last Vital Signs Temp 97.7 F 10/30/24 08:00 Pulse 72 10/30/24 08:00 Resp 17 10/30/24 08:00 BP 118/70 10/30/24 08:00 Pulse Ox 93 10/30/24 08:00 O2 Del Method Room Air 10/30/24 08:00 BMI result Body Mass Index 28.2 General: AO X 3, no acute distress Resp: cta bilateral, no accessory muscles used CVS: S1,S2,RRR GI: soft, non tender, non distended Neuro: motor grossly intact, alert Psych: appropriate affect, appropriate insight DS: Data Data Completed and Pending Labs on day of discharge: Laboratory Results - last 24 hr 10/30/24 06:25 WBC 6.5 RBC 3.80 L Hgb 11.2 L Hct 32.8 L MCV 86.3 MCH 29.5 MCHC 34.1 RDW 13.7 Plt Count 185 D MPV 8.7 L Absolute Nucleated RBC 0.000 Nucleated RBC % (auto) 0.0 Sodium 130 L Potassium 4.4 Chloride 95 L Carbon Dioxide 29 Anion Gap 10 L BUN 13 Creatinine 0.71 Estim Creat Clear Calc 110.4 Estimated GFR > 60 Random Glucose 100 Calcium 9.2 Preliminary micro results at discharge 10/26/24 16:25 Blood Culture - Preliminary Blood - Venous No growth after 48 hours. 10/26/24 16:25 Blood Culture - Preliminary Blood - Venous No growth after 48 hours. Discharge Plan Discharge Anticipated Discharge Date/Time: 10/30/24 10:45 Patient Disposition: [facility] Discharge Diagnosis: sepsis, uti esbl Referrals: [facility] [Outside] - 1 Day Referral Note: [facility] Physician,Unknown J [Physician, Medical] - 1 Week Discharge Medications: New ertapenem 1 gram recon soln 1 g IV DAILY Qty: 10 0RF Rx Instructions: end 11/08/24 Continued multivitamin Tablet 1 tab PO DAILY Qty: 90 0RF atorvastatin [Lipitor] 40 mg tablet 40 mg PO QPM Qty: 90 1RF aspirin 81 mg capsule 81 mg PO DAILY Qty: 90 0RF acetaminophen 325 mg tablet 650 mg PO Q6H PRN (Reason: pain) Qty: 240 0RF carvedilol 3.125 mg tablet 3.125 mg PO Q12H Qty: 60 2RF Rx Instructions: must administer with a meal/food Eliquis 5 mg Tablet 5 mg PO BID Qty: 60 0RF ziprasidone HCl 80 mg capsule 80 mg PO BID sennosides [senna] 8.6 mg Tablet 17.2 mg PO BID trazodone 50 mg tablet 75 mg PO BEDTIME PRN (Reason: sleep) ipratropium-albuterol 0.5 mg-3 mg(2.5 mg base)/3 mL solution for nebulization 3 ml inhalation Q4-6H PRN (Reason: wheezing) 30 Days Qty: 270 6RF bisacodyl 10 mg suppository 10 mg NJ DAILY PRN (Reason: constipation) cetirizine [All Day Allergy (cetirizine)] 10 mg tablet 10 mg PO DAILY PRN (Reason: allergies) divalproex 250 mg tablet extended release 24 hr 750 mg PO BEDTIME divalproex 500 mg tablet extended release 24 hr 500 mg PO DAILY docusate sodium 100 mg tablet 100 mg PO BID Fleet Enema 19-7 gram/118 mL enema 118 ml NJ DAILY PRN (Reason: Constipation) Rx Instructions: 1 dose directly every 24 hour as needed for constipation. if no bowel movement for 8 hours after 8 hours after Bisacodyl suppository. Spiriva Respimat 2.5 mcg/actuation mist 2 puff inhalation DAILY melatonin 3 mg tablet 3 mg PO BEDTIME omeprazole 20 mg capsule,delayed release(DR/EC) 20 mg PO DAILY polyethylene glycol 3350 17 gram/dose powder 17 g PO DAILY montelukast 10 mg tablet 10 mg PO DAILY umeclidinium-vilanterol [Anoro Ellipta] 62.5-25 mcg/actuation blister with device 1 inh inhalation DAILY Qty: 60 6RF Discontinued oxycodone 5 mg tablet 5 mg PO BID oxycodone 5 mg tablet 5 mg PO Q6H PRN (Reason: Pain (Scale Score 7-10)) Rx Instructions: take with 5mg bid Discharge Orders: Discharge Order (Routine); Ordered 10/30/24 Ordered By: Aime Gutierrez Diet: NDD3 thins Activity on Discharge: As tolerated Stand Alone Forms: Patient Portal Discharge page Print Language: Irish Care Plan Goals: recovery Health Concerns: esbl uti Plan of Treatment: ertapenem until 11/08/24 ndd3 solids, thin liquids Assessment: see above
[2024-10-30 11:40] VITALS: BP 121/79; PULSE 69; RESP 17; TEMP 36.8; O2SAT 94
--- NOTE | 2024-10-30 15:08 | MHC.CM.PN ---
ANTIC PT WILL DC BACK TO LTC AT [facility] W/10 DAYS IV ERTAPENEM 1GM Q24HRS PENDING PICC LINE PLACEMENT, MD/RN AWARE PT WILL NEED DOSE PRIOR TO DC, PER PT REQUEST CM ATTEMPTED TO CONTACT PT/S NIECE/HCP KELLY AT NUMBER ON FILE, DETAILED MESSAGE LEFT. [facility] FOR BLS TRANSPORT SET UP FOR 6PM, [facility] BOOKING ID#[id number]
[2024-10-30 15:37] VITALS: BP 142/85; PULSE 73; RESP 17; TEMP 36.6; O2SAT 97
--- NOTE | 2024-10-30 16:33 | HO.MIDLINE_ITS ---
Midline Insertion MIDLINE INSERTION Diagnosis: Urinary tract infection Indication: IV antibiotics Pertinent Labs: Reviewed Technique: Using sterile technique including cap and mask, glove and drape, the the left arm was prepped and draped in the usual sterile fashion of full barrier technique with CHG. Using ultrasound guidance, the left asilic vein ac cess was obtained in a single attempt by this RN. a 20 guage 8cm NON-PASV midline was positioned. The procedure was performed in 272. Ultrasound was used to document vein patency and for needle entry. A formal ultrasound picture was recorded. Vascular Senior Mainframe Developer has released the line for use and it is currently dressed with a StatLock, Tegaderm, and CHG disc. Verification has been performed for blood return and line patency. Arm Circumference: 33cm Equipment: BARD POWERGLIDE ST Midline Catheter Catheter Type: 20 guage 8cm NON-PASV Midline Lot #: [id number]
--- NOTE | 2024-10-30 16:56 | MHC.SL.SWA ---
Dysphasia Diet Status: Recommend pt continue with chopped solids d/t edentulous state. Soft sandwiches ok. Recommend thin liquids. Pills whole w/ water ok per RN. Recommend extra sauce/gravy with meals. Recommend continued dysphagia tx at next level of care once pt obtains dentures to upgrade diet if warranted. Liquid Consistency and Strategies for Safe Swallow: Liquid Intake Recommendation: Thin Liquid Intake Strategies: Small Sips Solid Food Consistency: Dietary Recommendations: Chopped/Advanced (NDD3) Additional Modifications to Solid Foods: Oral Medication Intake: Whole with Liquid Please contact the pharmacy regarding appropriate crushable or liquid drug formulations that are available whenever modified delivery is recommended. Compensatory Strategies and Precautions to be Taken for Safe Swallow: Sitting Upright (90 deg) Small Bites and Sips Alternate Liquids/Solids Rate of Ingestion Change Avoid Specific Foods Supervision While Eating and Drinking for Safe Swallow: Intermittent Supervision Foods to Avoid: dry, sticky, hard to chew foods. Recommendation for Speech: Inpatient Speech Therapy Recommend continued dysphagia tx at next level of care once pt obtains dentures to upgrade diet if warranted. Frequency/Duration: M-F Daily Paper Box Cutter Clinican/Clinical Fellow: No Supervisory Statement: I have reviewed and agree with the student/clinical fellow's documentation: N/A Speech Language Pathologist: Estefani Jay M.A., CCC-CHIEF MAINTENANCE SUPERVISOR
[2024-10-30 17:20] VITALS: PULSE 74
--- NOTE | 2024-10-30 19:24 | PC.NURSE ---
patient picked up by EMS to be transported to [facility] around 7:20pm, report & documents given to EMS. Pt with known Left upper midline in place for abx CDI, all belongings sent with patient.
[2024-10-30 19:35] VITALS: BP 145/74; PULSE 71; RESP 18; TEMP 37; O2SAT 95
== END 2024-10-30 19:29 | disposition skilled nursing facility (03) | DRG 178 ==
LOC: HO.ED 19:18 → HO.EDOVER 19:27 → HO.IMC 23:18
PROVIDERS: Hospitalist; Registered Nurse Emergency; Admitting Provider Student in an Organized Health Care Education/Training Program; Emergency Provider Internal Medicine; PCP Internal Medicine; Visit Provider Internal Medicine
DX: J69.0 Pneumonitis due to inhalation of food and vomit (principal); E22.2 Syndrome of inappropriate secretion of antidiuretic hormone; N39.0 Urinary tract infection, site not specified; I50.22 Chronic systolic (congestive) heart failure; Z16.12 Extended spectrum beta lactamase (ESBL) resistance; I25.5 Ischemic cardiomyopathy; R31.29 Other microscopic hematuria; F17.210 Nicotine dependence, cigarettes, uncomplicated; I48.0 Paroxysmal atrial fibrillation; J44.9 Chronic obstructive pulmonary disease, unspecified; F20.9 Schizophrenia, unspecified; B96.20 Unspecified Escherichia coli [E. coli] as the cause of diseases classified elsewhere; I25.10 Atherosclerotic heart disease of native coronary artery without angina pectoris; Z71.6 Tobacco abuse counseling; Z20.822 Contact with and (suspected) exposure to COVID-19; Z95.1 Presence of aortocoronary bypass graft; Z79.01 Long term (current) use of anticoagulants; Z79.82 Long term (current) use of aspirin; Z79.899 Other long term (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
CPT/HCPCS: 36410; 36415; 71045; 80048; 80053; 80164; 81001; 82140; 82533; 82803; 82947; 83605; 83735; 84484; 85025; 85027; 85610; 87040; 87086; 87088; 87186; 87637; 92526; 92610; 93005; 94640; 99285; J0696; J1335; J2185; J7120; P9047

== ENCOUNTER → 2024-10-26 16:05 | Outpatient (BNV) | payer OTHER, SELFPAY | PROVIDERS: Emergency Provider Internal Medicine; Visit Provider Radiology Diagnostic Radiology | DX: J98.11 Atelectasis (principal) | CPT/HCPCS: 71045 ==

== ENCOUNTER → 2024-10-26 16:05 | Outpatient (BNV) | payer OTHER, SELFPAY | PROVIDERS: Admitting Provider Student in an Organized Health Care Education/Training Program; Emergency Provider Internal Medicine; Visit Provider Internal Medicine Cardiovascular Disease | DX: I44.0 Atrioventricular block, first degree (principal); I45.4 Nonspecific intraventricular block | CPT/HCPCS: 93010 ==

== ENCOUNTER → 2024-10-26 19:07 | Outpatient (BNV) | payer OTHER, SELFPAY | PROVIDERS: Admitting Provider Student in an Organized Health Care Education/Training Program; Emergency Provider Internal Medicine; Visit Provider Internal Medicine | DX: I25.5 Ischemic cardiomyopathy (principal) | CPT/HCPCS: 99223; 99232; 99233; 99239; 99499 ==

== ENCOUNTER 2024-11-01 17:45 | Inpatient (IN) | payer OTHER, SELFPAY ==
[2024-11-01] VITALS (8 sets, daily range): BP systolic 106–155; BP diastolic 50–77; PULSE 70–83; RESP 18–25; TEMP 36.6–37.7; O2SAT 92–100; BMI 26.0
--- NOTE | ~2024-11-01 | XR_ITS ---
CLINICAL HISTORY: ? reinjury L femoral neck fx 3 view, pelvis and left hip Comparison: CR - XR PELVIS 1-2V - 11/01/24 18:51 EDT Findings: Prior fixation of a left femoral neck fracture. Alignment appears similar to a prior exam. Alignment appears unchanged compared with the radiograph from yesterday. A fracture line is still visible. No murmur row images available for comparison. IMPRESSION: Prior left femoral neck fixation. Fracture line evident. Overall this appears unchanged compared with the patient's prior radiograph from 1 day prior. No more remote imaging is available for comparison. This document has been electronically signed by: Chary Fernando MD on 11/02/2024 09:49:18
--- NOTE | ~2024-11-01 | CT_ITS ---
CLINICAL HISTORY: rule out stroke CT head without contrast Comparison: CT/SR - CT HEAD/BRAIN WO IV CON - 11/01/24 18:51 EDT Findings: Global volume loss. No findings of acute large territory infarct or intracranial hemorrhage. Asymmetric increased prominence of CSF density along the left sylvian fissure is unchanged and may represent an arachnoid cyst. Subcortical and periventricular white matter hypodensities suggesting chronic microangiopathy. There is no sinus or mastoid fluid. The orbits are within normal limits. No skull fracture. IMPRESSION: 1. No evidence of acute large territory infarct or intracranial hemorrhage. No acute interval change. This document has been electronically signed by: Chary Fernando MD on 11/02/2024 09:58:33
--- NOTE | ~2024-11-01 | XR_ITS ---
CLINICAL HISTORY: fall 1 view pelvis Comparison: None provided Findings: Moderate to severe osteoarthritis of the both hips. Left femoral neck lucencies present. Three metallic pins and/or hardware imaged in the left femur with a partial obscuration of the left femur and 3 pins/screws. Re-injury could be considered given alignment of screws. Portions of the femurs obscured. Sacrum and SI joints are mostly obscured. Vascular calcifications noted, including phleboliths in the pelvis. Enthesopathy in the [id number] including iliac wings. IMPRESSION: 1. Postprocedural changes of the left femur with lucencies at femoral neck fracture. Re-injury is considered, without comparison. 2. Osteoarthritis of the both imaged hips. This document has been electronically signed by: Ariel Chino MD on 11/01/2024 19:15:31
--- NOTE | ~2024-11-01 | CT_ITS ---
CLINICAL HISTORY: fall CT cervical spine without contrast Comparison: None provided Findings: No acute fracture of the cervical spine. Mild-moderate reversal of the cervical lordosis. Minimal anterolisthesis at C3-C4 and C4-C5. 8 mm lucency of the C5 is nonspecific and likely due to hemangioma. Endplate changes are multifocal. Ligament calcifications and facet arthropathy are diffuse. Mild spinal canal stenosis with small disc osteophyte complexes. Multifocal ycyqhyzc-fh-grysdy foraminal narrowing by CT, left worse than right. Devitalized bone of the maxilla and mandible are noted partially imaged in the [id number]. Other erosion versus postprocedural change non excluded in right side of the mandible approaches angle and likely from previous 3rd molar region. No paraspinal hematoma. Vascular calcifications noted. Emphysematous changes and scarring of the imaged lung apices. IMPRESSION: No acute fracture of the cervical spine. This document has been electronically signed by: Ariel Chino MD on 11/01/2024 20:33:47
--- NOTE | ~2024-11-01 | XR_ITS ---
CLINICAL HISTORY: cp 1 view chest x-ray Comparison: Chest x-ray from 10/26/2024 Findings: No consolidation, pneumothorax, or pleural effusion. No significant change in lace-like opacities which represent combination of the fibrosis and/or emphysematous changes. Tortuosity thoracic aorta redemonstrated. Mild cardiomegaly accentuated by AP technique. Mild residual edema and/or pneumonitis could be considered. Post sternotomy changes are redemonstrated. Degenerative changes include imaged shoulders IMPRESSION: No consolidation. No significant change compared to 10/26/2024. This document has been electronically signed by: Ariel Chino MD on 11/01/2024 19:12:44
--- NOTE | ~2024-11-01 | CT_ITS ---
CLINICAL HISTORY: head injury CT head without contrast Comparison: None provided Findings: No acute intracranial hemorrhage. No midline shift or hydrocephalus. Ahwydpxo-zx-dwusa volume loss is generalized. White matter lesions are nonspecific and may reflect small-vessel ischemic disease. Asymmetry of the temporal lobes accentuated by positioning. Left sylvian fissure arachnoid cysts measures 1.[address] Mucosal thickening includes paranasal sinuses. Bilateral nasal bone deformities appear old/chronic. Small left mastoid effusion. Soft tissue in the external auditory canals are nonspecific and may be due to cerumen. Vascular and dural calcifications noted. No acute skull fracture. IMPRESSION: 1. No acute intracranial abnormality by CT. This document has been electronically signed by: Ariel Chino MD on 11/01/2024 20:33:32
--- NOTE | ~2024-11-01 | CT_ITS ---
CLINICAL HISTORY: sob CT angiography chest with contrast. With MIP MPR Postprocessing. Comparison: None provided Findings: No central pulmonary embolism. Small peripheral pulmonary emboli noted in the segmental branches of the lower lobe in subsegmental branches in the periphery of both lungs. These are accentuated by artifacts. Calcified and noncalcified plaque include imaged aorta and its branches. Mediastinal and hilar nodes are nonspecific and may be reactive. Right hilar node measures 1 cm short axis (imaged 85 of series 11). Mild-moderate cardiomegaly. Post sternotomy changes noted. Small-minimal right pleural effusion. Mild bibasilar atelectasis/pneumonitis. Moderate to severe emphysematous changes and mild scarring of the both lungs. Mild rib deformities appear old/chronic. However, lucency at anterior aspect of the right 4th rib concerning for acuity and/or re-injury. Right lumbar transverse process fractures are old. Degenerative changes include imaged shoulders and imaged spine. Mild multifocal vertebral height losses appear old/chronic and accentuated by Schmorl's nodes, including upper endplate of the T9. Volume loss of the imaged pancreas in the imaged abdomen. Spleen approaches the upper limits of normal. Steatotic changes of the imaged liver with artifacts. IMPRESSION: 1. Small peripheral pulmonary emboli, including left lower lobe. 2. Mild bibasilar atelectasis/pneumonitis. Recommend attention on follow-up to ensure resolution. 3. Acute nondisplaced fracture and/or re-injury of the anterior right 4th rib. This document has been electronically signed by: Ariel Chino MD on 11/01/2024 20:29:20
--- NOTE | 2024-11-01 18:02 | ECG_ITS ---
Test Reason : SOB Blood Pressure : */* mmHG Vent. Rate : 80 BPM Atrial Rate : 80 BPM P-R Int : 232 ms QRS Dur : 124 ms QT Int : 408 ms P-R-T Axes : 55 30 -13 degrees QTcB Int : 470 ms Sinus rhythm with sinus arrhythmia with 1st degree A-V block Nonspecific T wave changes Abnormal ECG When compared with ECG of 26-Oct-2024 16:06, No significant changes seen Referred By: Tamiko Jacobs Electronically Signed By: Rodrick Edwards
--- NOTE | 2024-11-01 18:05 | ED.AMS ---
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 Patient went outside to smoke. Was found to be short of breath when he returned. Sent in for evaluation.. History of atrial flutter currently on Eliquis. Baseline not on oxygen. History of heart failure. History of COPD Related Data Home Medications ?Medication ?Instructions ?Recorded ?Confirmed bisacodyl 10 mg rectal suppository 10 mg SD DAILY PRN constipation 09/30/24 10/26/24 cetirizine 10 mg tablet (All Day 10 mg PO DAILY PRN allergies 09/30/24 10/26/24 Allergy (cetirizine)) divalproex 250 mg tablet,extended 750 mg PO BEDTIME 09/30/24 10/26/24 release 24 hr divalproex 500 mg tablet,extended 500 mg PO DAILY 09/30/24 10/26/24 release 24 hr docusate sodium 100 mg tablet 100 mg PO BID 09/30/24 10/26/24 melatonin 3 mg tablet 3 mg PO BEDTIME 09/30/24 10/26/24 montelukast 10 mg tablet 10 mg PO DAILY 09/30/24 10/26/24 omeprazole 20 mg capsule,delayed 20 mg PO DAILY 09/30/24 10/26/24 release polyethylene glycol 3350 17 17 g PO DAILY 09/30/24 10/26/24 gram/dose oral powder sodium phosphates 19 gram-7 118 ml SD DAILY PRN Constipation 09/30/24 10/26/24 gram/118 mL enema (Fleet Enema) tiotropium bromide 2.5 2 puff inhalation DAILY 09/30/24 10/26/24 mcg/actuation mist for inhalation (Spiriva Respimat) sennosides 8.6 mg tablet (senna) 17.2 mg PO BID 10/26/24 10/26/24 trazodone 50 mg tablet 75 mg PO BEDTIME PRN sleep 10/26/24 10/26/24 ziprasidone HCl 80 mg capsule 80 mg PO BID 10/26/24 10/26/24 Previous Rx's ?Medication ?Instructions ?Recorded apixaban 5 mg tablet (Eliquis) 5 mg PO BID #60 tabs 02/14/23 acetaminophen 325 mg tablet 650 mg (2 x 325 mg) PO Q6H PRN 04/05/23 pain #240 tabs aspirin 81 mg capsule 81 mg PO DAILY #90 caps 04/05/23 atorvastatin 40 mg tablet (Lipitor) 40 mg PO QPM #90 tabs 04/05/23 multivitamin 1 tab PO DAILY #90 tabs 04/05/23 carvedilol 3.125 mg tablet 3.125 mg PO Q12H #60 tabs 04/20/23 ipratropium 0.5 mg-albuterol 3 mg 3 ml inhalation Q4-6H PRN wheezing 10/05/23 (2.5 mg base)/3 mL nebulization 30 days #270 mL soln umeclidinium 62.5 mcg-vilanterol 1 inh inhalation DAILY #60 ea 09/27/24 25 mcg/actuation powdr for inhalation (Anoro Ellipta) ertapenem 1 gram solution for 1 g IV DAILY #10 ea 10/30/24 injection Allergies Allergy/AdvReac Type Severity Reaction Status Date / Time No Known Allergies Allergy Verified 11/01/24 18:00 Review of Systems Review of Systems: Patient lethargic but answering simple question has no specific complaints Yes all other systems are reviewed and are negative PMFSH Past Medical History Medical History Atrial flutter Ischemic cardiomyopathy Former smoker SIADH (syndrome of inappropriate ADH production) Paroxysmal atrial fibrillation Mood disorder Heart failure COPD (chronic obstructive pulmonary disease) Hypertension Hyperlipidemia TIA (transient ischemic attack) Encounter to establish care Surgical History S/P CABG x 3 Social History Social History Household Members: Other Household Members Other:: Niece and her daughter Housing: Care Home Do you presently have visiting nurse or other home services: Yes Unable to assess alcohol history related to: Unknown Alcohol intake: former Patient Tobacco Use Status: Former Tobacco user Tobacco use type: Cigarette Cigarette Packs Per Day: 1 Cigarettes Per Day: 20 Years Smoked: 53 years Smoked in Last 30 Days: Yes e-Cigarette/Vaping Use: Never Used Second Hand Smoke Exposure: Yes Use of substances other than those prescribed or required for medical reasons: Unable to respond Substance Use Type: Crack/Cocaine and Marijuana Advance Directives: No Advance Directives Information Provided: No service: No Current occupational status: retired Sexual orientation: Straight/Heterosexual Cognitive needs: Yes Hearing needs: No Vision needs: Yes (Glasses) Physical Exam ED Vital Signs: Vital Signs - 24 hr 11/01/24 17:54 11/01/24 18:02 11/01/24 19:30 Temperature 97.8 F Pulse Rate 80 78 70 Respiratory Rate 20 20 22 H Blood Pressure 112/50 L 112/59 L 134/71 Pulse Oximetry 99 97 92 Oxygen Delivery Method Room Air Room Air Room Air Oxygen Flow Rate 11/01/24 20:09 Temperature Pulse Rate 82 Respiratory Rate 21 H Blood Pressure 142/77 H Pulse Oximetry 98 Oxygen Delivery Method Nasal Cannula Oxygen Flow Rate 2 BMI result Body Mass Index 26.0 Appearance: Lethargic oriented to self and place Eyes: Pupils equal, round and reactive to light. ENT: Pharynx normal. Neck: Normal inspection. Neck supple. No lymph nodes noted. No crepitus CVS: Normal heart rate and rhythm. Pulses normal. Normal S1 and S2 Respiratory: No respiratory distress. Breath sounds normal. No Wheezing. No rales Abdomen: Soft and nontender. No rigidity. No distention. good BS x4 Skin: Skin warm and dry. Normal skin color. Normal skin turgor. Extremities: No lower extremity edema. Neurovascular intact to all extremities. No Lacerations. No Rash Neuro: Oriented X 3. No motor deficit. No sensory deficit. Moving all extermities. No slurred speech Medications Administered Generic Name Dose Route Start Last Admin Trade Name Freq PRN Reason Stop Dose Admin Divalproex Sodium 750 mg 11/01/24 22:40 11/02/24 00:19 Divalproex Sodium Er 250 Mg Tab.Er.24h PO Not Given BEDTIME VITALY Meropenem 1 gm 11/01/24 23:00 11/02/24 00:39 Meropenem 1 Gm Vial IVPUSH 1 gm Q12H VITALY Administration Discontinued Medications Generic Name Dose Route Start Last Admin Trade Name Freq PRN Reason Stop Dose Admin Sodium Chloride 500 mls @ 999 mls/hr 11/01/24 18:15 11/01/24 21:36 Ns IV 11/01/24 18:45 Infused .Q31M VITALY Infusion Levetiracetam 1,500 mg in 100 mls @ 400 mls/hr 11/01/24 20:01 11/01/24 20:26 Keppra IV 11/01/24 20:15 Infused ONCE ONE Infusion Sodium Chloride 1,000 mls @ 999 mls/hr 11/01/24 20:30 11/01/24 22:00 Ns IV 11/01/24 21:30 Infused .Q1H1M VITALY Infusion Phenytoin Sodium 1,000 mg/ 120 mls @ 120 mls/hr 11/01/24 22:00 11/01/24 23:25 Sodium Chloride IV 11/01/24 22:59 Infused ONCE ONE Infusion Iohexol 100 ml 11/01/24 19:07 11/01/24 19:07 Iohexol 350 Mg/Ml 100 Ml Infus..Btl IV 11/01/24 19:08 65 ml ONCE ONE Administration Lorazepam 1 mg 11/01/24 20:01 11/01/24 20:04 Lorazepam 2 Mg/Ml Vial IVPUSH 11/01/24 20:02 1 mg ONCE ONE Administration Lorazepam 1 mg 11/01/24 20:13 11/01/24 20:21 Lorazepam 2 Mg/Ml Vial IVPUSH 11/01/24 20:14 1 mg ONCE ONE Administration Medical Decision Making Medical Decision Making MDM Narrative: 69 years old history of being on meropenem. For urinary tract infection recently discharged from the hospital. Presented today with having gone outside to smoke. Then had an episode of possible passing out. I think this was actually more likely secondary to a seizure. Patient had 4 bouts of tonic clonic jerking movement while he was in the emergency department. He has 1 lasting about 30 seconds also. There was positive postictal state. We gave patient Ativan x2 mg in total. Loaded patient with 1.5 g of Keppra. Loaded patient with 1 g of Dilantin. Patient's electrolytes showed a sodium of 124. Likely from SIADH has a history of low sodium in the past. The ICU team was consulted due to the frequency of seizures. Will require very close monitoring. We did a CT scan of the head which was grossly negative for any acute evidence of bleeding by my interpretation. CT angio of the chest showed 1 rib fracture question PE. Patient already on Eliquis. Differential Diagnosis Differential Diagnoses: The differential diagnosis associated with the presentation includes Admission/Observation Consideration of admission/observation: Escalation of care including admission/observation considered Consult Healthcare Provider Management of the patient was discussed with: Community Leader (Sales Advisor) Lab Data MDM Lab Attestation statement: I reviewed the patient's lab results. 11/01/24 18:16 11/01/24 23:43 Labs: Lab Results 11/01/24 11/01/24 11/01/24 Range/Units 18:15 18:16 18:27 WBC 5.4 (4.8-10.8) X10*3/uL RBC 3.60 L (4.60-5.80) X10*6/uL Hgb 10.6 L (14.0-18.0) g/dl Hct 30.5 L (42.0-52.0) % MCV 84.7 (80.0-98.0) fL MCH 29.4 (27.0-33.0) pg MCHC 34.8 (31.0-36.0) g/dl RDW 13.6 (11.0-16.0) % Plt Count 212 (160-400) X10*3/uL MPV 9.1 L (9.4-12.4) fL Immature Gran % (Auto) 0.2 (0.0-0.4) % Neut % (Auto) 57.7 (45-73) % Lymph % (Auto) 26.0 (20-40) % Schley % (Auto) 9.7 (2-11) % Eos % (Auto) 5.8 H (0-4) % Baso % (Auto) 0.6 (0-2) % Lymph # (Auto) 1.4 (1.2-4.9) X10*3/uL Schley # (Auto) 0.5 (0.1-1.2) X10*3/uL Eos # (Auto) 0.3 (0.0-0.4) X10*3/uL Baso # (Auto) 0.0 (0.0-0.2) X10*3/uL Abs Immat Gran (auto) 0.01 (0.00-0.03) X10*3/uL Absolute Neuts (auto) 3.1 (2.0-8.3) x10*3/uL Absolute Nucleated RBC 0.000 (0.0-0.012) X10*3/uL Nucleated RBC % (auto) 0.0 (0.0-0.2) /100WBC PT 17.2 H (10.9-12.4) SEC INR 1.5 H (0.9-1.1) O2 Saturation 90.0 % ABG pH at Pt Temp 7.41 (7.35-7.45) ABG pCO2 at Pt Temp 46 H (32-45) mmHg ABG pO2 at Pt Temp 69 L (83-108) mmHg ABG HCO3 29 H (22-26) mmol/L ABG Base Excess (Actual) 4.7 mmol/L Sodium 124 L (135-145) mmol/L Potassium 4.3 (3.3-5.1) mmol/L Chloride 91 L (96-108) mmol/L Carbon Dioxide 26 (22-29) mmol/L Anion Gap 11 L (12-20) BUN 13 (9-16) mg/dL Creatinine 0.76 (0.5-1.4) mg/dL Estim Creat Clear Calc 97.7 Estimated GFR > 60 POC Glucose (60-115) mg/dL Random Glucose 97 (60-115) mg/dL Calcium 8.8 (8.4-10.2) mg/dL Total Bilirubin 0.6 (0.0-1.0) mg/dL Direct Bilirubin 0.2 (0.0-0.5) mg/dL AST 54 H (5-37) U/L ALT 10 (0-40) U/L Alkaline Phosphatase 76 (39-117) U/L Ammonia 48 (13-55) umol/L Troponin I High Sens 3.0 D (<3.5-35.0) ng/L B-Natriuretic Peptide 88 (<100) pg/mL Total Protein 7.1 (6.5-8.0) g/dL Albumin 3.7 (3.5-5.0) g/dL Lipase 31 (8-78) U/L Influenza Type A (PCR) (Negative) Influenza Type B (PCR) (Negative) RSV RNA Qual (PCR) (Negative) SARS-CoV-2 RNA (RT-PCR) (Negative) 11/01/24 11/01/24 11/01/24 Range/Units 18:31 19:52 20:16 WBC (4.8-10.8) X10*3/uL RBC (4.60-5.80) X10*6/uL Hgb (14.0-18.0) g/dl Hct (42.0-52.0) % MCV (80.0-98.0) fL MCH (27.0-33.0) pg MCHC (31.0-36.0) g/dl RDW (11.0-16.0) % Plt Count (160-400) X10*3/uL MPV (9.4-12.4) fL Immature Gran % (Auto) (0.0-0.4) % Neut % (Auto) (45-73) % Lymph % (Auto) (20-40) % Schley % (Auto) (2-11) % Eos % (Auto) (0-4) % Baso % (Auto) (0-2) % Lymph # (Auto) (1.2-4.9) X10*3/uL Schley # (Auto) (0.1-1.2) X10*3/uL Eos # (Auto) (0.0-0.4) X10*3/uL Baso # (Auto) (0.0-0.2) X10*3/uL Abs Immat Gran (auto) (0.00-0.03) X10*3/uL Absolute Neuts (auto) (2.0-8.3) x10*3/uL Absolute Nucleated RBC (0.0-0.012) X10*3/uL Nucleated RBC % (auto) (0.0-0.2) /100WBC PT (10.9-12.4) SEC INR (0.9-1.1) O2 Saturation % ABG pH at Pt Temp (7.35-7.45) ABG pCO2 at Pt Temp (32-45) mmHg ABG pO2 at Pt Temp (83-108) mmHg ABG HCO3 (22-26) mmol/L ABG Base Excess (Actual) mmol/L Sodium (135-145) mmol/L Potassium (3.3-5.1) mmol/L Chloride (96-108) mmol/L Carbon Dioxide (22-29) mmol/L Anion Gap (12-20) BUN (9-16) mg/dL Creatinine (0.5-1.4) mg/dL Estim Creat Clear Calc Estimated GFR POC Glucose 87 87 (60-115) mg/dL Random Glucose (60-115) mg/dL Calcium (8.4-10.2) mg/dL Total Bilirubin (0.0-1.0) mg/dL Direct Bilirubin (0.0-0.5) mg/dL AST (5-37) U/L ALT (0-40) U/L Alkaline Phosphatase (39-117) U/L Ammonia (13-55) umol/L Troponin I High Sens (<3.5-35.0) ng/L B-Natriuretic Peptide (<100) pg/mL Total Protein (6.5-8.0) g/dL Albumin (3.5-5.0) g/dL Lipase (8-78) U/L Influenza Type A (PCR) NEGATIVE (Negative) Influenza Type B (PCR) NEGATIVE (Negative) RSV RNA Qual (PCR) NEGATIVE (Negative) SARS-CoV-2 RNA (RT-PCR) NEGATIVE (Negative) Independent Interpretation I performed an independent interpretation of an: EKG (My interpretation patient's EKG showed a sinus rhythm heart rate is 80 SD QRS QTC normal no acute ST segment elevation noted.) and CT Scan (CT scan of the head was grossly negative for any acute evidence of bleeding. CT of the C-spine showed no acute fracture.) Radiology Impression Discussion of test interpretation with radiology: I have reviewed the radiologist's reading. External Record Review External record reviewed: Inpatient record Chronic Conditions CAD, bypass, COPD, atrial fibrillation, status post bypass, heart failure Social Determinants Patient?s care significantly limited by Social Determinants of Health including: Problems related to primary support group Procedures Procedure Narrative Procedure Narrative: Ultrasound-guided IV 18 gauge 1-3/4 inch IV placed in right upper extremity, adequate blood return flushes well secured with Tegaderm performed by Amy Burton PA-C Critical Care Time Critical Care Time Critical Care Time: Yes Total Critical Care Time: 80 Attestation: I have personally provided 80 minutes of critical care time exclusive of time spent on separately billable procedures. ?Time includes review of lab data, radiology results, discussion with consultants, and monitoring for potential decompensation. ?Interventions were performed as documented above Discharge Plan Discharge Clinical Impression: Seizure Patient Disposition: Admitted As Inpatient Interventions: Admission Worksheet (ED) Last Done: 11/01/24 23:00 Discharge Date/Time: 11/01/24 23:00
--- OUTSIDE RECORDS SUMMARY | 2024-11-01 18:18 | XMS_ITS | Data Portability ---
Author Organization [employer] Address [address] [place] [address] Care Team Providers Care Grinding Machine Operator Automatic Name Role Phone HIM CCA OTHER Assessment Encounter Date Assessment Date Assessment LastModified by Organization Details LastModified Time 07/02/2023 07/02/2023 I provided real -time medical direction via phone for this encounter, and was available for additional phone based assistance as needed. I have reviewed and agree with the Assessment and Plan as documented by the Forensic Chemist. We discussed the diagnostic uncertainty of home [...] verbalized understanding of instructions to the medic [email or web address] Not available 07/02/2023 12:20:06 02/21/2024 02/21/2024 As noted, starr lam called to see this patient regarding concerns of liudmila. Evaluation in the field was performed by my solder technician colleague, as noted above, I provided real-time [...] plasma 2023 024 SARI [facility] - [facility], [address] [place] [address], [phone] 13:48:55 BMP, serum or plasma 2023 024 [email or web address] 0 Main - Inst, [address] [place] [address], [phone] 4 12:24:32 Referral None recorded. Procedures None recorded. Surgeries None recorded. Imaging None recorded. Medication Orders furosemide 40 mg tablet 2023 024 [email or web address] [id number], [address] [place], [address], 4 13:34:40 ipratropium 0.5 mg-albutero l 3 mg (2.5 mg base)/3 mL nebulizatio n soln 2023 024 [email or web address] 0 [id number], [address] [place], [address], 4 12:24:32 Lasix 20 mg tablet 2023 024 [email or web address] [id number], [address] [place], [address], 4 12:24:32 Patient TargetsNo targets recorded. Patient InstructionsNo instructions recorded. Reason for Referral None Reported. Results Created Date Observation Date Name Description Value Unit Range Abnormal Flag Note LastModifiedBy Organization Detail LastModifiedTime 07/02/19 24 07/02/2023 BMP, serum or plasm a BUN 17 Not Available Main - Ins jose [address] [place] [address], [address] [place] [address] 07/02/2023 11:10:42 07/02/19 24 07/02/2023 BMP, serum or plasm a Ca Ionize d calcdemetriau m 1.1 Not Available Main - [address], [address] [place] [address] 07/02/2023 11:10:42 07/02/19 24 07/02/2023 BMP, serum or plasm a CI- 9 7 Not Available Main - Ins [address], [address] [place] [address] 07/02/2023 11:10:42 07/02/19 24 07/02/2023 BMP, serum or plasm a CRE 1 Not Available Main - Ins [address], [address] [place] [address] 07/02/2023 11:10:42 07/02/19 24 07/02/2023 BMP, serum or plasm a GLU 91 Not Available [facility] - Ins [address], [address] [place] [address] 07/02/2023 11:10:42 07/02/19 24 07/02/2023 BMP, serum or plasm a K+ 4.1 Not Available Main - Ins [address], [address] [place] [address] 07/02/2023 11:10:42 07/02/19 24 07/02/2023 BMP, serum or plasm a Na+ 133 Not Available [facility] - Ins [address], [address] [place] [address] 07/02/2023 11:10:42 07/02/19 24 07/02/2023 BMP, serum or plasm a tCO2 24 Not Available [facility] - Ins [address], [address] [place] [address] 07/02/2023 11:10:42 Result Notes None recorded. Medical [...] Updated DateTime 07/02/2023 180.34 cm 30.1 kg/m2 67981.23 g Silvina Gramajo MD [address] [facility],[address] [facility], [place], [address], [place] - [employer] 07/02/2023 11:27:09 Date Recorded Body temperature Heart rate Oxygen saturation Oxygen saturation in Arterial blood by Pulse oximetry Respiratory rate Systolic And Diastolic Provider Name and Address Organization Details Last Updated DateTime 4 98 [degF] 86 /min 98 % 98 % 20 /min 130/80 mm[Hg] Not Available [email or web address] - production 4 11:04:34 Date Recorded Oxygen saturation Oxygen saturation in Arterial blood by Pulse oximetry Heart rate Body temperature Respiratory rate Body height Body weight Systolic And Diastolic Provider Name and Address Organization Details Last Updated DateTime 4 94 % 94 % 82 /min 97.3 [degF] 16 /min 177.8 cm 608601. 832 g 124/62 mm[Hg] Not Available [email or web address] - production 4 10:22:55 Date Recorded Body temperature Heart rate Oxygen saturation Oxygen saturation in Arterial blood by Pulse oximetry Respiratory rate Systolic And Diastolic Provider Name and Address Organization Details Last Updated DateTime 4 98.3 [degF] 65 /min 95 % 95 % 20 /min 116/64 mm[Hg] Not Available [employer] - [employer] 4 14:20:47 Date Recorded Oxygen saturation Oxygen saturation in Arterial blood by Pulse oximetry Body height Heart rate Body weight Respiratory rate Body temperature Systolic And Diastolic Provider Name and Address Organization Details Last Updated DateTime 4 92 % 92 % 180.34 cm 80 /min 95831.7 68 g 16 /min 97.2 [degF] 152/89 mm[Hg] Not Available [employer] [facility] [employer] 4 21:45:16 Date Recorded Respiratory rate Body temperature Body weight Oxygen saturation Oxygen saturation in Arterial blood by Pulse oximetry Body height Heart rate Systolic And Diastolic Provider Name and Address Organization Details Last Updated DateTime 4 14 /min 98.4 [degF] 18042.6 g 99 % 99 % 185.42 cm 80 /min 151/85 mm[Hg] Not Available [employer] [facility] [employer] 4 20:58:10 Social History None recorded. Functional Status None recorded. Mental Status None recorded. Family History Nothing Reported. Medical History No medical history recorded. Past Encounters Encounter ID Performer Location Encounter Start Date Encounter Closed Date Diagnosis/Indication Diagnosis SNOMED-CT Code Diagnosis ICD10 Code Diagnosis Note [id number] Zoltan Roque MD Main - [facility] [address] [place] [phone] 04/02/2022 19:41:20 04/04/2022 11:55:01 Swelling of lower jaw region 834566138 R22.0 This was a challengin g case for [facility] assessment . 66yo man presents with 2 [...] he will call or present to ED. [id number] Lev Butts MD [facility] - [address] [address] 10/21/2022 14:55:12 10/22/2022 10:13:01 Chronic obstructive pulmonary disease 32312410 J44.9 This 67-year-ol d male with COPD called [facility] wondering if he needs more steroids. He recently completed a course of oral steroids. I recommende d that hs continue with his current treatments and follow-up with his PCP. The patient agreed with this plan. [id number] Elba Avila MD [facility] - [address] [phone] 04/22/2023 16:01:46 04/25/2023 12:18:54 Chronic obstructive pulmonary disease 57204104 J44.9 Evaluation in the field was performed by my solder technician colleague, as noted above, I provided real-time direction and supervisio n for this visit. 67yo M PMHx COPD, CHF, HTN p/w ongoing cough after recent RSV PNA. No ongoing fevers. On solder technician assessment VS notable for sat 94% RA, [...] shortness of breath, cough, chest pain, fever. [id number] Silvina Gramajo MD Main - [facility] [address] [place] [phone] 05/07/2023 19:03:29 05/08/2023 17:40:31 Dyspnea 449351853 R06.00 Status post DuoNeb wheezing cleared patient [...] follow-up with his PCP note sent to college and career counselor via [facility] [id number] Silvina Gramajo MD Main - inst[address] [phone] 07/02/2023 11:04:28 07/02/2023 16:34:14 Dyspnea 621721526 R06.00 Status post DuoNeb wheezing unchanged- more [...] morning note sent to CP via [facility] [id number] Robin Cristina MD Main - [facility] [address] [place] [phone] 07/29/2023 10:22:53 07/31/2023 13:08:55 Dyspnea 018554900 R06.00 Mild swelling and slight volume overload. Has been taking Lasix 20mg PO PRN. Took 20mg PO this AM. Given weight is increased, will give additional 40mg PO x1 now. Advised to call back if weight increasing despite 20mg PO Lasix. BMP wnl. Discussed red flag signs for which to seek higher level of care. [id number] Lev Butts MD Main - [facility] [address] [place] [address] 09/07/2023 14:20:45 09/07/2023 22:09:07 Hyponatremia 22734532 E87.1 This 68-year-ol d male has a history of hyponatrem ia and he is taking oral sodium chloride. Today his sodium is 128. I recommende d he continue his current medication s and follow-up with his PCP. The patient's caregivers agreed with this plan. [id number] Lev Butts MD Main - [facility] [address] [place] [phone] 10/19/2023 21:45:06 10/20/2023 17:24:34 Hyponatremia 86913248 E87.1 This 68-year-ol d male has a history of hyponatrem ia and he is taking oral sodium chloride. His sodium has dropped from yesterday. I ordered normal saline one liter IV. He should have have repeat lab in one to two days. The patient agreed with this plan. [id number] Chiqui Mcneil MD Main - [facility] [address] [place] [phone] 02/21/2024 20:58:08 02/22/2024 11:47:02 Chronic hyponatremia 41219384 E87.1 Health Concerns Section Related Observation LastModified by Organization Detai ls LastModified Time None Recorded Concern Status LastModified by Organization Details LastModified Time None Recorded Advance Directives Directive None Recorded Payers Insurance Date Sequence Insurance Name Policy Number Policy Myers Covered Member ID Myers Member ID Guarantor Name 10/21/2022 1 [facility] DOS PRIOR TO 2022 - DUAL ELIGIBLE (MEDICARE REPLACEMENT/ADV ANTAGE - HMO) Alberto Manuelovan [id number] Alberto Levi 02/22/2024 1 [facility] - DOS ON OR AFTER 2022 - DUAL ELIGIBLE - ALF OPTIONS AND ONE CARE (MEDICARE REPLACEMENT/ADV ANTAGE - HMO) Alberto Levi [id number] Alberto E Gurmeet Notes Date Note Type [...] .................... .................... .................... .................... .................... .................... ......... Forensic Chemist Note From Rosenda Nicole: Community Forensic Chemist Azael Nicole Sc6 dispatched to a [facility] for a 67 yom C/O SOB. Upon arrival, the pt was ambulatory w/ slight tachypnea, but no dyspnea. Skin warm pink and dry, in no obvious distress. He reported that he had COPD and CHF, and that he had been using his nebulizer a lot w/ little effect. His neice/director of physician practices that lived in the home with him [...] . Disposition: Fulfilled Silvina Gramajo MD [address] [facility],[address], [place], [address], [facility] - [employer] 07/02/2023 15:04:42 07/29/2023 text/html HPI: [facility] nurse Nasrin called stating mbr is experiencing SOB hx of CHF/copd, patient received prn Lasix, with LE trace edema, refusing ED requesting [facility] visit. denies any CP/N/V able to speak in full sentences. Protocol Used: Leg Swelling and Edema Protocol-Based Disposition: Consider instED, WEAPONS SPECIALIST, MD/TIRE MANAGER triage, PCP, or ED /Urgent Care Visit [...] .................... .................... .................... .................... .................... .................... . Forensic Chemist Note From Ross Zavala: Pt with hx [...] .................... . Disposition: Fulfilled Robin Cristina MD [address] [place] [address],[address], [place], [address], [employer] 07/29/2023 13:35:00 09/07/2023 text/html HPI: 67 male with HFrEF (30-35%), COPD, schizophrenia, p-Afib, admitted 08/10-08/21 to [facility] for AMS changes found to be hyponatremic. [...] No further information needed to process visit. Forensic Chemist POC Test Results from Howie Frank [facility] iSTAT Chem8+ (1) [14:34] Na: 128 mEq/L K: 3.6 mEq/L Cl: 90 mEq/L iCa: 1.23 mmol/L TCO2: 26 mmol/L Glu: 109 mg/dL BUN: 10 mg/dL Crea: 0.8 mg/dL Hct: 38 % Hb: 12.9 g/dL A Attachments uploaded as part of this test result can be found under Documents section. Lev Butts MD [address] [place] [address],[address] [place] [address], [phone], [employer] 09/07/2023 14:39:20 10/19/2023 text/html [facility] Nurse Triage Notes (Uma Yusuf): Reason For Request: Patient is Altered Mental status, and Liudmila Chief Complaints: Altered Mental Status PMH: CHF, COPD/Asthma, Hypertension Allergies: Unknown Comments: Visiting nurse calling to request visit for AMS and shaking that started today. History of same symptoms is the past with low Na+ level. Lev Butts MD [address] [place] [address],[address] [facility], [place], [address], [employer] 10/19/2023 21:48:57 02/21/2024 text/html [facility] Nurse Triage Notes (Kassy Schneider): Reason For Request: NA Chief Complaints: Altered mental status PMH: Congestive Heart Failure, COPD/Asthma, Hypertension Comments: Train Conductor verified the member's name//address and phone number. [...] s/s and seek emergency treatment if needed Forensic Chemist Organization Information for [facility] [email or web address] Legal Name: [facility] Transportation Address: [address] [place] [address], KENDRA Núñez [address], Information Technology Specialist: Maco Whiting MD CLIA No.: [id number] Forensic Chemist POC Test Results from [facility] (20:19:10) pH: 7.380 pH units pCO2: 46.0 mmHg pO2: 27.1 mmHg Na: 133 mmol/L K: 3.8 mmol/L iCa: 1.17 mmol/L Cl: 97 mmol/L TCO2: 27.3 mEq/L Hct: 41 % Hb: 14.1 g/dL Glu: 97 mg/dL Lac: 1.70 mmol/L Cr: 070 mg/dL BUN: 16 mg/dL A .................... .................... .................... .................... .................... .................... .................... . Forensic Chemist Note From [facility]: Patient conscious and [...] sounds clear negative edema. Epoc values to [facility] suggests return visit for additional NA levels. Caregiver demonstrates understanding of care and plan. .................... .................... .................... .................... .................... .................... .................... . [facility] Consulted: Chiqui Mcneil .................... .................... .................... .................... .................... .................... .................... . Disposition: Charlie Mcneil MD [address] [facility],[address], [place], [address], [employer] 02/21/2024 22:44:20
--- OUTSIDE RECORDS SUMMARY | 2024-11-01 18:18 | XMS_ITS | Clinical Summary ---
Author Organization [facility] Address [address] [facility] [address] [place] [address] Phone Care Team Providers Care Animal Nursery Worker Name Role Phone Unavailable Primary Care Provider [...] Colorectal Cancer Screening: Sigmoidoscopy 09/01/2004 Influenza Vaccine (#1) 2024 7, 02/29/2012 Hepatitis B Vaccine Aged Out No longe r eligible based on patient's age to complete this topic Insurance [facility] ([id number]) [facility] ([id number])
--- OUTSIDE RECORDS SUMMARY | 2024-11-01 18:18 | XMS_ITS | Encounter Summary ---
Author Organization [facility] Address [address] [place] [address] Care Team Providers Care Wire Border Assembler Name Role Phone Geena Lee MD Primary Care Provider + Encounter Details Date Type Department Care Team (Late st Contact Info) Description 04/16/2024 Lab Requisition [facility] - Main Lab [address] [place] [address] Geena Lee MD [address] [phone] Hyperlipidemia, unspecified; Essential (primary) hypertension Social History [...] LAB CHEMISTRY METHOD 04/18/2024 12:51 PM EST [facility] Potassium 4.0 3.5 - 5.5 mmol/L LAB CHEMISTRY METHOD 04/18/2024 12:51 PM [facility] Chloride 97 96 - 110 mmol/L LAB CHEMISTRY METHOD 04/18/2024 12:51 PM [facility] CO2 29 21 - 32 mmol/L LAB CHEMISTRY METHOD 04/18/2024 12:51 PM [facility] Anion Gap 6 3 - 11 LAB CHEMISTRY METHOD 04/18/2024 12:51 PM [facility] Glucose 87 70 - 100 mg/dL LAB CHEMISTRY METHOD 04/18/2024 12:51 PM [facility] BUN 15 5 - 25 mg/dL LAB CHEMISTRY METHOD 04/18/2024 12:51 PM [facility] Creatinine 0.84 0.70 - 1.30 mg/dL LAB CHEMISTRY METHOD 04/18/2024 12:51 PM [facility] eGFR 95 >=60 mL/min/1. 73m2 LAB CHEMISTRY METHOD 04/18/2024 12:51 PM [facility] Comment:Calculation based on the Chronic Kidney Disease Epidemiology Collaboration (CKD-EPI) equation refit without adjustment for race. BUN/Creatinine Ratio 17.9 LAB CHEMISTRY METHOD 04/18/2024 12:51 PM [facility] Calcium 8.9 8.5 - 10.5 mg/dL LAB CHEMISTRY METHOD 04/18/2024 12:51 PM [facility] Blood Venous blood specimen / Unknown 04/18/2024 8:22 AM EST 04/18/2024 11:52 AM EST us Geena Lee MD LAB BLOOD ORDERABLES Fin al Result [facility] [address] [place] [address], documented in this encounter Visit Diagnoses Diagnosis Hyperlipidemia, unspecified Essential (primary) hypertension Unspecified essential hypertension documented in this encounter Care Teams Wire Border Assembler Relationship Specialty Start Date End Date Geena Lee MD [address] [address] PCP - General Family Medicine 03/20/24 documented as of this encounter
[2024-11-01 18:20] LABS: MANUAL DIFF FLAG NO
--- NOTE | 2024-11-01 18:20 | PC.NURSE ---
Patient is a 69-year-old male with a past medical history of extreme COPD CHF, AFib SIADH CAD status post CABG, schizophrenia, TIA, Recently admitted to the hospital with a chief complaint of low blood pressure. Urinalysis abnormal consistent with UTI. Lactate within normal limits. Patient was admitted for transient hypotension bradycardia likely due to aspiration pneumonitis. Was seen by speech therapy recommended NDD3 solids and thin liquids. Patient was discharged back to the alf. Today presents with sob after going outside for a smoke with ? syncope. When EMS arrived, mentation back to baseline Patient alert and oriented, answers questions appropriately but slow to respond. Bizarre affect noted. residential monitor applied and afib noted. Lungs essentially clear but diminished. Occas congested cough noted. Abodmen soft, distended, non-tender with positive bowel sounds. Positive pedal pules with trace edema. Patient appears to have scraped the top of his left toes.
[2024-11-01 18:22] LABS: Hematocrit 30.5 % (42.0-52.0); Hemoglobin 10.6 g/dl (14.0-18.0); Imm Gran Abs Auto 0.01 X10*3/uL (0.00-0.03); Imm Gran Pct Auto 0.2 % (0.0-0.4); Lymphocytes Absolute Auto 1.4 X10*3/uL (1.2-4.9); Mean Corpuscular HGB Conc 34.8 g/dl (31.0-36.0); Mean Corpuscular Hemoglobin 29.4 pg (27.0-33.0); Mean Corpuscular Volume 84.7 fL (80.0-98.0); NRBC Abs Auto 0.000 X10*3/uL (0.0-0.012); NRBC Pct Auto 0.0 /100WBC (0.0-0.2); Platelet Count 212 X10*3/uL (160-400); Red Blood Count 3.60 X10*6/uL (4.60-5.80); White Blood Count 5.4 X10*3/uL (4.8-10.8)
[2024-11-01 18:32] LABS: ABG HCO3 29 mmol/L (22-26); ABG O2 % Saturation 90.0 %
[2024-11-01 18:42] LABS: Ammonia 48 umol/L (13-55)
[2024-11-01 18:53] LABS: B Type Natriuretic Peptide 88 pg/mL (<100); INTERNATIONAL NORM RATIO 1.5 (0.9-1.1); Prothrombin Time 17.2 SEC (10.9-12.4)
[2024-11-01 18:56] LABS: Troponin-I High Sensitivity 3.0 ng/L (<3.5-35.0)
[2024-11-01 19:07] LABS: Alanine Aminotransferase 10 U/L (0-40); Albumin Level 3.7 g/dL (3.5-5.0); Alkaline Phosphatase 76 U/L (39-117); Anion Gap 11 (12-20); Aspartate Amino Transferase 54 U/L (5-37); Blood Urea Nitrogen 13 mg/dL (9-16); Calcium 8.8 mg/dL (8.4-10.2); Carbon Dioxide 26 mmol/L (22-29); Chloride 91 mmol/L (96-108); Creatinine Clr Calc Pharmacy 97.7; Estimated Glomerular Filt Rate > 60; Lipase 31 U/L (8-78); Potassium 4.3 mmol/L (3.3-5.1); Sodium 124 mmol/L (135-145); Total Protein 7.1 g/dL (6.5-8.0)
[2024-11-01] MEDS: iohexoL 350 MG/ML 100 ML INFUS..BTL IV (19:07)
[2024-11-01 19:18] LABS: Resp Syncy Virus RNA Qual PCR NEGATIVE (Negative); SARS COV2 PCR INHOUSE NEGATIVE (Negative)
[2024-11-01 19:21] LABS: ABG Refer to POC result
--- NOTE | 2024-11-01 19:52 | PC.NURSE ---
at start of shift patient alert, oriented to person, year, vague on situation. slow but clear responses. at 1947 pt observed by tech having what appeared as tonic clonic seizure. pt rolled onto side, airway maintained although SpO2 decreased to mid to high 80s. placed on 2L NC with improvement to 91%. tele not reading rhythm so appeared as flatline on monitor but carotid pulse palpated with ease until tele reading returned to screen after adjustment. upon resolution of seizure pt has eyes open tracking although not verbalizing. squeezes hands on command. suction in place. MD aware
[2024-11-01 19:56] LABS: Glucose, Whole Blood 87 mg/dL (60-115)
[2024-11-01] MEDS: LORazepam 2 MG/ML VIAL 1 MG IVPUSH ×2 (20:04→20:21)
[2024-11-01] MEDS: levETIRAcetam in NaCl (iso-os) 1,500 MG/100 ML PIGGYBACK 400 MG IV (20:10)
[2024-11-01 20:35] LABS: Glucose, Whole Blood 87 mg/dL (60-115)
--- NOTE | 2024-11-01 20:37 | PC.NURSE ---
proceeded to have 3 subsequent seizures at 1999, 2005, and 2014. shorter in duration approx 15 seconds or less. VSS. afterword he verbalized three short unclear words, mumbles. squeezes hands on command.
--- NOTE | 2024-11-01 21:12 | PM.CCHP ---
History of Present Illness Date of Service: 11/01/24 Attending physician on admission: Aneudy Meyer Chief Complaint: Recurrent seizures 69-year-old male who is a resident of a alf and had been admitted and discharged from this hospital on 10/30/2024 due to transient hypotension, bradycardia which was attributed to aspiration pneumonitis, and a urinary tract infection culture which grew ESBL E coli so the patient was placed on meropenem to be continued all the way to 11/08/2024.? Oxycodone had been discontinued as this was thought to be a contributing factor to his aspiration.? Additionally he has underlying history of of SIADH and is on fluid restriction, paroxysmal atrial fibrillation on Eliquis and carvedilol, mood disorder and schizophrenia on Depakote, chronic systolic CHF, COPD, coronary disease status post CABG, TIA, hypertension, hyperlipidemia, constipation, GERD, seasonal allergies, among other things. The patient presented to the emergency room after being found to be short of breath when he had returned from smoking outside of his facility, they thought the patient might have passed out, on arrival the patient was noted to be lethargic but answering simple questions with no specific complaints oriented to self and place; , however during the patient's workup and while awaiting results of his images in the emergency room the patient was witnessed to have a total of 4 tonic-clonic jerking episodes lasting about 30 seconds to a minute each with classic postictal state in between.? The patient had received 2 mg of Ativan, subsequently given 1.5 g of Keppra and 1 g of Dilantin due to the recurrent episodes.? The overall workup shows a white count 5.4, H and H of 10.6 and 30.5, platelets 212.? Sodium 130, potassium 4.3, chloride 91, carbon dioxide 26 BUN 13, creatinine 0.76.? Respiratory panel negative.? Blood glucose 87.? Head CT and CT of the cervical spine were negative for acute intracranial or cervical pathology. ?Left hip x-ray shows post procedural changes of the left femur with lucencies at the femoral neck fracture.? Re-injury considered.? Chest x-ray is negative.? Chest CT angiogram shows small perihilar pulmonary emboli including the left lower lobe.? Mid bibasilar atelectasis/pneumonitis.? Acute nondisplaced fracture or re-injury of the anterior right 4th rib.? The patient is known to be on Eliquis. During my encounter, the patient was nonverbal, unable to follow commands and enough postictal state.? Patient will be admitted to the ICU for further monitoring. Review of Systems Review of Systems: Yes Unobtainable due to mental status PMFSH Past Medical History Medical History Atrial flutter Ischemic cardiomyopathy Former smoker SIADH (syndrome of inappropriate ADH production) Paroxysmal atrial fibrillation Mood disorder Heart failure COPD (chronic obstructive pulmonary disease) Hypertension Hyperlipidemia TIA (transient ischemic attack) Encounter to establish care Surgical History Surgical History S/P CABG x 3 Social History Social History Household Members: Other Household Members Other:: Niece and her daughter Housing: Shelter Do you presently have visiting nurse or other home services: No Unable to assess alcohol history related to: Unknown Alcohol intake: former Patient Tobacco Use Status: Current everyday Tobacco user Tobacco use type: Cigarette Cigarette Packs Per Day: 1 Cigarettes Per Day: 20 Years Smoked: 53 years Smoked in Last 30 Days: Yes e-Cigarette/Vaping Use: Never Used Patient Interested in Nicotine Replacement: No Second Hand Smoke Exposure: Yes Use of substances other than those prescribed or required for medical reasons: Unable to respond Substance Use Type: Crack/Cocaine and Marijuana Currently Displaying Signs/Symptoms of Drug Intoxication Withdrawal: No Advance Directives: No Advance Directives Information Provided: No Do you have a plan to hurt others: No Plan Recently lost weight without trying: Unsure service: No Current occupational status: retired Sexual orientation: Straight/Heterosexual Cognitive needs: Yes Hearing needs: No Vision needs: Yes (Glasses) Meds Allergies Allergy/AdvReac Type Severity Reaction Status Date / Time No Known Allergies Allergy Verified 11/01/24 18:00 Active Medications: Current Medications Phenytoin Sodium 1,000 mg/ (Sodium Chloride) 120 mls @ 100 mls/hr IV ONCE ONE Stop: 11/01/24 21:27 Sodium Chloride (Ns) 1,000 mls @ 999 mls/hr IV .Q1H1M VITALY Stop: 11/01/24 21:30 Last Admin: 11/01/24 20:37 Dose: 999 mls/hr Home Medications ?Medication ?Instructions ?Recorded ?Confirmed ?Last Taken ?Type cetirizine 10 mg tablet (All Day 10 mg PO DAILY PRN allergies 09/30/24 11/02/24 Unknown History Allergy (cetirizine)) divalproex 500 mg tablet,extended 500 mg PO BID 09/30/24 11/02/24 Unknown History release 24 hr docusate sodium 100 mg tablet 100 mg PO BID 09/30/24 11/02/24 Unknown History melatonin 3 mg tablet 6 mg PO BEDTIME 09/30/24 11/02/24 Unknown History montelukast 10 mg tablet 10 mg PO DAILY 09/30/24 11/02/24 Unknown History omeprazole 20 mg capsule,delayed 20 mg PO DAILY@1630 09/30/24 11/02/24 Unknown History release polyethylene glycol 3350 17 17 g PO DAILY 09/30/24 11/02/24 Unknown History gram/dose oral powder tiotropium bromide 2.5 2 puff inhalation DAILY 09/30/24 11/02/24 Unknown History mcg/actuation mist for inhalation (Spiriva Respimat) sennosides 8.6 mg tablet (senna) 17.2 mg PO BID 10/26/24 11/02/24 Unknown History trazodone 50 mg tablet 75 mg PO BEDTIME PRN sleep 10/26/24 11/02/24 Unknown History ziprasidone HCl 80 mg capsule 80 mg PO BID 10/26/24 11/02/24 Unknown History acetaminophen 325 mg tablet 650 mg PO Q6H PRN MILD PAIN OR 11/02/24 11/02/24 Unknown History FEVER >100.0 aspirin 81 mg chewable tablet 81 mg PO DAILY 11/02/24 11/02/24 Unknown History atorvastatin 40 mg tablet (Lipitor) 40 mg PO BEDTIME 11/02/24 11/02/24 Unknown History carvedilol 3.125 mg tablet 3.125 mg PO BID 11/02/24 11/02/24 Unknown History guaifenesin 100 mg/5 mL oral 100 mg PO Q4H PRN Cough 11/02/24 11/02/24 Unknown History liquid (Daphney-Tussin) ipratropium 0.5 mg-albuterol 3 mg 3 ml inhalation Q6H PRN wheezing 11/02/24 11/02/24 Unknown History (2.5 mg base)/3 mL nebulization soln Physical Exam Vital Signs: Vital Signs: Last Vital Signs Temp 97.8 F 11/01/24 17:54 Pulse 82 11/01/24 20:09 Resp 21 H 11/01/24 20:09 BP 142/77 H 11/01/24 20:09 Pulse Ox 98 11/01/24 20:09 O2 Del Method Nasal Cannula 11/01/24 20:09 O2 Flow Rate 2 11/01/24 20:09 BMI result Body Mass Index 26.0 General:? Alert , nonverbal.? Does not appear to be in distress.? No following commands upon request ?No accessory muscle usage.? Skin:? Thin, Intact, no lesions, edema, erythema, clubbing or cyanosis.? No ulcers. HEENT:? Head is normocephalic, atraumatic, pupils equal. Buccal mucosa is dry Neck is supple without lymphadenopathy. Cardiac:? Clear S1-S2, no murmurs rubs or gallops. Pulmonary:? Diminished lung sounds bilaterally fine expiratory wheezing bilaterally .? No crackles, rales or rhonchi. Abdomen:? Protuberant, positive bowel sounds in all 4 quadrants.? Soft, nontender, no rebound or guarding.? Musculoskeletal:? Appears to be moving all 4 extremities on his own at the major joints but no upon request.? Unable to assess her strength. ?There is no leg edema , no calf tenderness , no leg asymmetry.? Gait not assessed at this point. Neurologic:? As above.? No focal deficits noted. Vascular:? 2+ pulses upper and lower extremities distally.? Less than 2nd capillary refill of fingers and toes bilaterally upper and lower extremities Results Labs 11/02/24 05:49 11/02/24 08:25 Labs: Laboratory Results - last 24 hr 11/01/24 11/01/24 11/01/24 18:15 18:16 18:27 MCV 84.7 MCH 29.4 MCHC 34.8 RDW 13.6 Plt Count 212 MPV 9.1 L Immature Gran % (Auto) 0.2 Neut % (Auto) 57.7 Lymph % (Auto) 26.0 [place] % (Auto) 9.7 Eos % (Auto) 5.8 H Baso % (Auto) 0.6 Lymph # (Auto) 1.4 [place] # (Auto) 0.5 Eos # (Auto) 0.3 Baso # (Auto) 0.0 Abs Immat Gran (auto) 0.01 Absolute Neuts (auto) 3.1 Absolute Nucleated RBC 0.000 Nucleated RBC % (auto) 0.0 PT 17.2 H INR 1.5 H O2 Saturation 90.0 ABG pH at Pt Temp 7.41 ABG pCO2 at Pt Temp 46 H ABG pO2 at Pt Temp 69 L ABG HCO3 29 H ABG Base Excess (Actual) 4.7 Anion Gap 11 L Estim Creat Clear Calc 97.7 Estimated GFR > 60 POC Glucose Random Glucose 97 Calcium 8.8 Total Bilirubin 0.6 Direct Bilirubin 0.2 AST 54 H ALT 10 Alkaline Phosphatase 76 Ammonia 48 B-Natriuretic Peptide 88 Total Protein 7.1 Albumin 3.7 Lipase 31 Influenza Type A (PCR) Influenza Type B (PCR) RSV RNA Qual (PCR) SARS-CoV-2 RNA (RT-PCR) 11/01/24 11/01/24 11/01/24 18:31 19:52 20:16 MCV MCH MCHC RDW Plt Count MPV Immature Gran % (Auto) Neut % (Auto) Lymph % (Auto) [place] % (Auto) Eos % (Auto) Baso % (Auto) Lymph # (Auto) [place] # (Auto) Eos # (Auto) Baso # (Auto) Abs Immat Gran (auto) Absolute Neuts (auto) Absolute Nucleated RBC Nucleated RBC % (auto) PT INR O2 Saturation ABG pH at Pt Temp ABG pCO2 at Pt Temp ABG pO2 at Pt Temp ABG HCO3 ABG Base Excess (Actual) Anion Gap Estim Creat Clear Calc Estimated GFR POC Glucose 87 87 Random Glucose Calcium Total Bilirubin Direct Bilirubin AST ALT Alkaline Phosphatase Ammonia B-Natriuretic Peptide Total Protein Albumin Lipase Influenza Type A (PCR) NEGATIVE Influenza Type B (PCR) NEGATIVE RSV RNA Qual (PCR) NEGATIVE SARS-CoV-2 RNA (RT-PCR) NEGATIVE Assessment and Plan (1) Acute repetitive seizure: Status: Acute Plan ASSESSMENT : 1. Acute recurrent seizures 2. Metabolic encephalopathy due to the above 3. Small PE currently on Eliquis 4. Possible left femoral neck fracture re-injury 5. Acute to subacute right 4th rib fracture 6. Acute on chronic hyponatremia due to SIADH 7. Chronic but stable normocytic anemia 8. Acute on chronic bibasilar pneumonia on treatment 9. Chronic urinary tract infection with ESBL E coli on meropenem PLAN OF CARE: The patient will be admitted to the ICU monitor vital signs, I's and O's, neuro checks, seizure precautions, we will obtain Depakote level and place him on Keppra 1 g b.i.d., neurological consult for the morning and perhaps an EEG, we will resume Eliquis once a bedside swalllow eval is performed, consult Orthopedic team to evaluate possible left femoral neck re-injury, fluid restriction, continue with meropenem and repeat laboratories in the morning.? Aspiration precautions. GI PROPHYLAXIS:? IV PPI DVT PROPHYLAXIS:? The patient is unable to take p.o, failed swallow trial, unable to resume Eliquis, we will start him on a heparin drip per PE protocol Critical care time used for critical evaluation of this patient, diagnosis, treatment and coordination of care, review her records and documentation TOTAL CRITICAL CARE TIME? 75? MIN . discussion and coordination with consultants, completely separate from any procedures performed. Patient's care was discussed in detail with Dr. Meyer who is aware of all the above as well as the plan of care for this patient.
[2024-11-01 23:28] LABS: Appearance Urine Clear; Glucose Urine UA Negative (Negative); PH 7.5 (5.0-9.0); Specific Gravity - Urine 1.020 (1.005-1.025); UMIC TRIGGER UACC YES
[2024-11-01 23:33] LABS: UACC Culture Trigger YES
[2024-11-02] VITALS (23 sets, daily range): BP systolic 92–142; BP diastolic 46–83; PULSE 66–85; RESP 14–25; TEMP 37–38.1; O2SAT 93–100; BMI 27.8; BMI 28.0
[2024-11-02 00:14] LABS: Alanine Aminotransferase 8 U/L (0-40); Albumin Level 3.6 g/dL (3.5-5.0); Alkaline Phosphatase 69 U/L (39-117); Anion Gap 10 (12-20); Aspartate Amino Transferase 30 U/L (5-37); Blood Urea Nitrogen 10 mg/dL (9-16); Calcium 8.3 mg/dL (8.4-10.2); Carbon Dioxide 26 mmol/L (22-29); Chloride 94 mmol/L (96-108); Creatinine Clr Calc Pharmacy 121.7; Estimated Glomerular Filt Rate > 60; Potassium 4.3 mmol/L (3.3-5.1); Sodium 126 mmol/L (135-145); Total Protein 6.5 g/dL (6.5-8.0)
[2024-11-02 01:28] LABS: PTT Heparin Drip 42.8 SEC (53-77.9)
[2024-11-02] MEDS: Heparin Sodium,Porcine/1/2NS 25,000 UNIT/250 ML IV.SOLN 12.67 UNIT IVCONT (01:56)
--- NOTE | 2024-11-02 02:41 | HO.SKINPHOTO ---
Location: Left great toe Category:skin tear Stage: Length: Width: Depth: cm
[2024-11-02 05:56] LABS: VBG HCO3 24 mmol/L (22-26); VBG O2 % Saturation 93.0 %
[2024-11-02 05:57] LABS: MANUAL DIFF FLAG NO
[2024-11-02 05:59] LABS: Hematocrit 31.9 % (42.0-52.0); Hemoglobin 11.2 g/dl (14.0-18.0); Imm Gran Abs Auto 0.02 X10*3/uL (0.00-0.03); Imm Gran Pct Auto 0.3 % (0.0-0.4); Lymphocytes Absolute Auto 1.8 X10*3/uL (1.2-4.9); Mean Corpuscular HGB Conc 35.1 g/dl (31.0-36.0); Mean Corpuscular Hemoglobin 29.2 pg (27.0-33.0); Mean Corpuscular Volume 83.3 fL (80.0-98.0); NRBC Abs Auto 0.000 X10*3/uL (0.0-0.012); NRBC Pct Auto 0.0 /100WBC (0.0-0.2); Platelet Count 180 X10*3/uL (160-400); Red Blood Count 3.83 X10*6/uL (4.60-5.80); Venous Blood Gas Refer to POC result; White Blood Count 7.0 X10*3/uL (4.8-10.8)
[2024-11-02 06:21] LABS: Alanine Aminotransferase 9 U/L (0-40); Albumin Level 3.7 g/dL (3.5-5.0); Alkaline Phosphatase 69 U/L (39-117); Anion Gap 12 (12-20); Aspartate Amino Transferase 40 U/L (5-37); Blood Urea Nitrogen 8 mg/dL (9-16); Calcium 8.7 mg/dL (8.4-10.2); Carbon Dioxide 22 mmol/L (22-29); Chloride 93 mmol/L (96-108); Creatinine Clr Calc Pharmacy 146.2; Estimated Glomerular Filt Rate > 60; Magnesium 1.8 mg/dL (1.6-2.6); Potassium 4.4 mmol/L (3.3-5.1); Sodium 123 mmol/L (135-145); Total Protein 6.9 g/dL (6.5-8.0)
--- NOTE | 2024-11-02 06:43 | PC.NURSE ---
Addendum entered by Tiana Regan RN 11/02/24 06:46: Patient with uop >200ml/hr throughout shift, RADHA Darden notified at 0305. Original Note: Critical Care Nursing Note? Patient arrived from the ED at 2320 via stretcher. Patient lethargic, with garbled and mumbled words. Patient NPO, unable to administer eliquis; heparin gtt started as ordered.? Patient more arousable throughout the shift, at 0600 the patient? opened his eyes spontaneously, oriented to self, place and time.? Report given to oncoming shift.
--- NOTE | 2024-11-02 07:00 | EEG_ITS ---
This is a 16 channel EEG with an EKG lead. Patient is reported awake, restless, and confused. EEG was limited because of frequent lead and muscle artifacts related to patient's restlessness. otherwise, background EEG rhythm was 5-7 hertz 5-100 microvolt with no obvious asymmetry or paroxysmal tendency. No definite focal activity was noted. Cardiac lead did not reveal any significant abnormality. Photic stimulation did not produce any significant driving. Hyperventilation was not performed. Impression: Limited EEG revealing generalized slowing with no obvious epileptic discharges. MTDD
[2024-11-02] MEDS: levETIRAcetam in NaCl (iso-os) 1,000 MG/100 ML PIGGYBACK 400 MG IV ×2 (08:14→18:16)
[2024-11-02 08:54] LABS: PTT Heparin Drip 183.1 SEC (53-77.9)
--- NOTE | 2024-11-02 08:54 | PM.CNOR ---
History of Present Illness HPI Consult date: 11/02/24 Chief complaint: Recurrent Sepsis Narrative: 69-year-old male admitted to the ICU for recurrent tonic-clonic seizures and several concurrent infections Patient wheelchair-bound at baseline Patient is status post cannulated screw fixation of the left femoral neck, patient is unable to state where this surgery was performed X-rays taken in the ED reveals area of lucency around the femoral neck of the left hip Today, the patient reports that he has had hip pain since surgery, but states that this may have gotten worse over time PMFSH Past Medical History Medical History Atrial flutter Ischemic cardiomyopathy Former smoker SIADH (syndrome of inappropriate ADH production) Paroxysmal atrial fibrillation Mood disorder Heart failure COPD (chronic obstructive pulmonary disease) Hypertension Hyperlipidemia TIA (transient ischemic attack) Encounter to establish care Surgical History Surgical History S/P CABG x 3 Social History Social History Household Members: Other Household Members Other:: Niece and her daughter Housing: Alf Do you presently have visiting nurse or other home services: No Unable to assess alcohol history related to: Unknown Alcohol intake: former Patient Tobacco Use Status: Current everyday Tobacco user Tobacco use type: Cigarette Cigarette Packs Per Day: 1 Cigarettes Per Day: 20 Years Smoked: 53 years Smoked in Last 30 Days: Yes e-Cigarette/Vaping Use: Never Used Patient Interested in Nicotine Replacement: No Second Hand Smoke Exposure: Yes Use of substances other than those prescribed or required for medical reasons: Unable to respond Substance Use Type: Crack/Cocaine and Marijuana Advance Directives: No Advance Directives Information Provided: No Do you have a plan to hurt others: No Plan Recently lost weight without trying: Unsure service: No Current occupational status: retired Sexual orientation: Straight/Heterosexual Cognitive needs: Yes Hearing needs: No Vision needs: Yes (Glasses) Meds Allergies Allergy/AdvReac Type Severity Reaction Status Date / Time No Known Allergies Allergy Verified 11/01/24 18:00 Active Medications: Current Medications Divalproex Sodium (Divalproex Sodium Er 500 Mg Tab.Er.24h) 500 mg PO DAILY VITALY Divalproex Sodium (Divalproex Sodium Er 250 Mg Tab.Er.24h) 750 mg PO BEDTIME [facility] Last Admin: 11/02/24 00:19 Dose: Not Given Heparin Sodium (Porcine) (Heparin Sodium,Porcine 5,000 Unit/Ml Vial) 3,600 unit IVPUSH PROTOCOL BOLUS PRN; Protocol PRN Reason: 40 unit/kg - Heparin Protocol Heparin Sodium (Porcine) (Heparin Sodium,Porcine 5,000 Unit/Ml Vial) 7,200 unit IVPUSH PROTOCOL BOLUS PRN; Protocol PRN Reason: 80 unit/kg - Heparin Protocol Levetiracetam (Keppra) 1,000 mg in 100 mls @ 400 mls/hr IV Q12H [facility] Last Admin: 11/02/24 08:14 Dose: 400 mls/hr Heparin Sodium/Sodium Chloride (Heparin Sodium,Porcine/1/2ns) 25,000 unit in 250 mls @ 0 mls/hr IVCONT .Q0M [facility]; Protocol Last Admin: 11/02/24 01:56 Dose: 14 units/kg/hr, 12.67 mls/hr Meropenem (Meropenem 1 Gm Vial) 1 gm IVPUSH Q12H [facility] Last Admin: 11/02/24 00:39 Dose: 1 gm Pantoprazole Sodium (Pantoprazole Sodium 40 Mg/10 Ml Vial) 40 mg IVPUSH DAILY@0630 [facility] Last Admin: 11/02/24 06:01 Dose: 40 mg Home Medications ?Medication ?Instructions ?Recorded ?Confirmed ?Last Taken ?Type bisacodyl 10 mg rectal suppository 10 mg [place] DAILY PRN constipation 09/30/24 10/26/24 Unknown History cetirizine 10 mg tablet (All Day 10 mg PO DAILY PRN allergies 09/30/24 10/26/24 Unknown History Allergy (cetirizine)) divalproex 250 mg tablet,extended 750 mg PO BEDTIME 09/30/24 10/26/24 Unknown History release 24 hr divalproex 500 mg tablet,extended 500 mg PO DAILY 09/30/24 10/26/24 Unknown History release 24 hr docusate sodium 100 mg tablet 100 mg PO BID 09/30/24 10/26/24 Unknown History melatonin 3 mg tablet 3 mg PO BEDTIME 09/30/24 10/26/24 Unknown History montelukast 10 mg tablet 10 mg PO DAILY 09/30/24 11/02/24 Unknown History omeprazole 20 mg capsule,delayed 20 mg PO DAILY@1630 09/30/24 11/02/24 Unknown History release polyethylene glycol 3350 17 17 g PO DAILY 09/30/24 10/26/24 Unknown History gram/dose oral powder sodium phosphates 19 gram-7 118 ml KS DAILY PRN Constipation 09/30/24 10/26/24 Unknown History gram/118 mL enema (Fleet Enema) tiotropium bromide 2.5 2 puff inhalation DAILY 09/30/24 11/02/24 Unknown History mcg/actuation mist for inhalation (Spiriva Respimat) sennosides 8.6 mg tablet (senna) 17.2 mg PO BID 10/26/24 11/02/24 Unknown History trazodone 50 mg tablet 75 mg PO BEDTIME PRN sleep 10/26/24 10/26/24 Unknown History ziprasidone HCl 80 mg capsule 80 mg PO BID 10/26/24 11/02/24 Unknown History acetaminophen 325 mg tablet 650 mg PO Q6H PRN MILD PAIN OR 11/02/24 11/02/24 Unknown History FEVER >100.0 aspirin 81 mg chewable tablet 81 mg PO DAILY 11/02/24 11/02/24 Unknown History atorvastatin 40 mg tablet (Lipitor) 40 mg PO BEDTIME 11/02/24 11/02/24 Unknown History carvedilol 3.125 mg tablet 3.125 mg PO BID 11/02/24 11/02/24 Unknown History Physical Exam Vital Signs: Vital Signs: Last Vital Signs Temp 100.2 F 11/02/24 08:00 Pulse 79 11/02/24 08:00 Resp 23 H 11/02/24 08:00 BP 107/56 L 11/02/24 08:00 Pulse Ox 98 11/02/24 08:00 O2 Del Method Room Air 11/02/24 08:00 O2 Flow Rate 1 11/02/24 06:00 Oxygen Flow Rate 2 11/01/24 23:43 BMI result Body Mass Index 28.0 Extrem: Other: Left lower extremity normal to inspection No evidence of shortening or external rotation No evidence of surrounding erythema, ecchymosis No evidence of infection Patient is able to flex and extend the digits of the left foot without difficulty Patient is able to actively flex at the left hip over the course of interview and physical exam without difficulty Compartments soft, nontender Distal sensation intact Capillary refill brisk Results Labs 11/02/24 05:49 11/02/24 05:49 Labs: Abnormal lab results 11/01/24 11/01/24 11/01/24 Range/Units 18:15 18:16 18:27 RBC 3.60 L (4.60-5.80) X10*6/uL Hgb 10.6 L (14.0-18.0) g/dl Hct 30.5 L (42.0-52.0) % MPV 9.1 L (9.4-12.4) fL [place] % (Auto) (2-11) % Eos % (Auto) 5.8 H (0-4) % PT 17.2 H (10.9-12.4) SEC INR 1.5 H (0.9-1.1) aPTT Heparin Protocol (53-77.9) SEC ABG pCO2 at Pt Temp 46 H (32-45) mmHg ABG pO2 at Pt Temp 69 L (83-108) mmHg ABG HCO3 29 H (22-26) mmol/L VBG pH (7.32-7.43) Sodium 124 L (135-145) mmol/L Chloride 91 L (96-108) mmol/L Anion Gap 11 L (12-20) BUN (9-16) mg/dL Calcium (8.4-10.2) mg/dL AST 54 H (5-37) U/L Ur Leukocyte Esterase (Negative) Urine WBC (0-5) /HPF Valproic Acid (50.0-100.0) mcg/mL 11/01/24 11/01/24 11/02/24 Range/Units 22:50 23:43 01:10 RBC (4.60-5.80) X10*6/uL Hgb (14.0-18.0) g/dl Hct (42.0-52.0) % MPV (9.4-12.4) fL [place] % (Auto) (2-11) % Eos % (Auto) (0-4) % PT (10.9-12.4) SEC INR (0.9-1.1) aPTT Heparin Protocol 42.8 L (53-77.9) SEC ABG pCO2 at Pt Temp (32-45) mmHg ABG pO2 at Pt Temp (83-108) mmHg ABG HCO3 (22-26) mmol/L VBG pH (7.32-7.43) Sodium 126 L (135-145) mmol/L Chloride 94 L (96-108) mmol/L Anion Gap 10 L (12-20) BUN (9-16) mg/dL Calcium 8.3 L (8.4-10.2) mg/dL AST (5-37) U/L Ur Leukocyte Esterase Small (1+) H (Negative) Urine WBC 6-10 H (0-5) /HPF Valproic Acid < 12.5 L (50.0-100.0) mcg/mL 11/02/24 11/02/24 Range/Units 05:49 05:52 RBC 3.83 L (4.60-5.80) X10*6/uL Hgb 11.2 L (14.0-18.0) g/dl Hct 31.9 L (42.0-52.0) % MPV 8.6 L (9.4-12.4) fL [place] % (Auto) 11.2 H (2-11) % Eos % (Auto) 4.4 H (0-4) % PT (10.9-12.4) SEC INR (0.9-1.1) aPTT Heparin Protocol (53-77.9) SEC ABG pCO2 at Pt Temp (32-45) mmHg ABG pO2 at Pt Temp (83-108) mmHg ABG HCO3 (22-26) mmol/L VBG pH 7.55 H (7.32-7.43) Sodium 123 L (135-145) mmol/L Chloride 93 L (96-108) mmol/L Anion Gap (12-20) BUN 8 L (9-16) mg/dL Calcium (8.4-10.2) mg/dL AST 40 H (5-37) U/L Ur Leukocyte Esterase (Negative) Urine WBC (0-5) /HPF Valproic Acid (50.0-100.0) mcg/mL H & H 11/01/24 11/02/24 Range/Units 18:16 05:49 Hgb 10.6 L 11.2 L (14.0-18.0) g/dl Hct 30.5 L 31.9 L (42.0-52.0) % Coagulation 11/01/24 Range/Units 18:15 INR 1.5 H (0.9-1.1) All other labs normal. Diagnostic results Hip x-ray: report reviewed and image reviewed Assessment and Plan (1) Status post hip surgery: Status: Acute Plan 1. Status post CRPP of left hip with concern for re-injury DOS approximately 5 months ago Repeat x-rays ordered now that the patient is demonstrating the ability to move the lower extremities to assess surgical site for potential re-injury or instability Patient is wheelchair-bound and nonweightbearing at baseline We will assess repeat x-rays to determine any potential need for further intervention Continue with all other recommendations per ICU Procedures Date of Service Date of Service: 11/02/24
[2024-11-02 08:57] LABS: Alanine Aminotransferase 6 U/L (0-40); Albumin Level 3.6 g/dL (3.5-5.0); Alkaline Phosphatase 66 U/L (39-117); Anion Gap 11 (12-20); Aspartate Amino Transferase 32 U/L (5-37); Blood Urea Nitrogen 7 mg/dL (9-16); Calcium 8.5 mg/dL (8.4-10.2); Carbon Dioxide 24 mmol/L (22-29); Chloride 93 mmol/L (96-108); Creatinine Clr Calc Pharmacy 143.6; Estimated Glomerular Filt Rate > 60; Potassium 3.8 mmol/L (3.3-5.1); Sodium 124 mmol/L (135-145); Total Protein 6.6 g/dL (6.5-8.0)
--- NOTE | 2024-11-02 09:11 | PHA.MEDREC ---
Pharmacy Consult ? Medication Reconciliation Pharmacy has completed the medication reconciliation. [facility] D[facility]01[facility]24.
[2024-11-02 10:24] LABS: PTT Heparin Drip 82.8 SEC (53-77.9)
--- NOTE | 2024-11-02 10:29 | PM.CCPN ---
Subjective Subjective Date of Service: 11/02/24 Interval History: Complains of weakness in the left upper extremity, CT head did not show any acute intracranial pathology Critical Care Time (minutes): 35 Physical Exam Vital Signs: Vital Signs: Last Vital Signs Temp 99.7 F 11/02/24 10:00 Pulse 68 11/02/24 10:00 Resp 18 11/02/24 10:00 BP 99/60 11/02/24 10:00 Pulse Ox 97 11/02/24 10:00 O2 Del Method Room Air 11/02/24 10:00 O2 Flow Rate 1 11/02/24 06:00 Oxygen Flow Rate 2 11/01/24 23:43 BMI result Body Mass Index 28.0 General: Elderly male not in any acute distress Nutritional Appearance: well nourished and overweight Eyes: appearance normal, both eyes and all related structures; Alignment and Position: alignment normal and position normal Neck: No lymphadenopathy, no thyromegaly Resp: bilateral air entry equal, occasional added sounds present Cardio: Regular rate, regular rhythm; Heart sounds: S1 normal heart sound present and S2 normal heart sound present GI: soft, nontender, no guarding, no hepatosplenomegaly : bladder normal to inspection, bladder normal to palpation, no renal angle tenderness Skin: no rashes or lesions noted and elasticity normal Neuro: Confused, drowsy, not following commands, weak back hand in the left arm, power in the forearm and arm normal Objective Data Labs 11/02/24 05:49 11/02/24 08:25 Labs: Laboratory Results - last 24 hr 11/01/24 11/01/24 11/01/24 18:15 18:16 18:27 WBC 5.4 RBC 3.60 L Hgb 10.6 L Hct 30.5 L MCV 84.7 MCH 29.4 MCHC 34.8 RDW 13.6 Plt Count 212 MPV 9.1 L Immature Gran % (Auto) 0.2 Neut % (Auto) 57.7 Lymph % (Auto) 26.0 [place] % (Auto) 9.7 Eos % (Auto) 5.8 H Baso % (Auto) 0.6 Lymph # (Auto) 1.4 [place] # (Auto) 0.5 Eos # (Auto) 0.3 Baso # (Auto) 0.0 Abs Immat Gran (auto) 0.01 Absolute Neuts (auto) 3.1 Absolute Nucleated RBC 0.000 Nucleated RBC % (auto) 0.0 PT 17.2 H INR 1.5 H aPTT Heparin Protocol O2 Saturation 90.0 ABG pH at Pt Temp 7.41 ABG pCO2 at Pt Temp 46 H ABG pO2 at Pt Temp 69 L ABG HCO3 29 H ABG Base Excess (Actual) 4.7 VBG pH VBG pCO2 VBG pO2 VBG HCO3 VBG O2 Saturation VBG Base Excess Sodium 124 L Potassium 4.3 Chloride 91 L Carbon Dioxide 26 Anion Gap 11 L BUN 13 Creatinine 0.76 Estim Creat Clear Calc 97.7 Estimated GFR > 60 POC Glucose Random Glucose 97 Calcium 8.8 Phosphorus Magnesium Total Bilirubin 0.6 Direct Bilirubin 0.2 AST 54 H ALT 10 Alkaline Phosphatase 76 Ammonia 48 Troponin I High Sens 3.0 D B-Natriuretic Peptide 88 Total Protein 7.1 Albumin 3.7 Lipase 31 Urine Color Urine Appearance Urine pH Ur Specific [place] Urine Protein Urine Glucose (UA) Urine Ketones Urine Blood Urine Nitrite Ur Leukocyte Esterase Urine RBC Urine WBC Ur Squamous Epith Cells Urine Bacteria Hyaline Casts Valproic Acid Influenza Type A (PCR) Influenza Type B (PCR) RSV RNA Qual (PCR) SARS-CoV-2 RNA (RT-PCR) 11/01/24 11/01/24 11/01/24 18:31 19:52 20:16 WBC RBC Hgb Hct MCV MCH MCHC RDW Plt Count MPV Immature Gran % (Auto) Neut % (Auto) Lymph % (Auto) [place] % (Auto) Eos % (Auto) Baso % (Auto) Lymph # (Auto) [place] # (Auto) Eos # (Auto) Baso # (Auto) Abs Immat Gran (auto) Absolute Neuts (auto) Absolute Nucleated RBC Nucleated RBC % (auto) PT INR aPTT Heparin Protocol O2 Saturation ABG pH at Pt Temp ABG pCO2 at Pt Temp ABG pO2 at Pt Temp ABG HCO3 ABG Base Excess (Actual) VBG pH VBG pCO2 VBG pO2 VBG HCO3 VBG O2 Saturation VBG Base Excess Sodium Potassium Chloride Carbon Dioxide Anion Gap BUN Creatinine Estim Creat Clear Calc Estimated GFR POC Glucose 87 87 Random Glucose Calcium Phosphorus Magnesium Total Bilirubin Direct Bilirubin AST ALT Alkaline Phosphatase Ammonia Troponin I High Sens B-Natriuretic Peptide Total Protein Albumin Lipase Urine Color Urine Appearance Urine pH Ur Specific [place] Urine Protein Urine Glucose (UA) Urine Ketones Urine Blood Urine Nitrite Ur Leukocyte Esterase Urine RBC Urine WBC Ur Squamous Epith Cells Urine Bacteria Hyaline Casts Valproic Acid Influenza Type A (PCR) NEGATIVE Influenza Type B (PCR) NEGATIVE RSV RNA Qual (PCR) NEGATIVE SARS-CoV-2 RNA (RT-PCR) NEGATIVE 11/01/24 11/01/24 11/02/24 22:50 23:43 01:10 WBC RBC Hgb Hct MCV MCH MCHC RDW Plt Count MPV Immature Gran % (Auto) Neut % (Auto) Lymph % (Auto) [place] % (Auto) Eos % (Auto) Baso % (Auto) Lymph # (Auto) [place] # (Auto) Eos # (Auto) Baso # (Auto) Abs Immat Gran (auto) Absolute Neuts (auto) Absolute Nucleated RBC Nucleated RBC % (auto) PT INR aPTT Heparin Protocol 42.8 L O2 Saturation ABG pH at Pt Temp ABG pCO2 at Pt Temp ABG pO2 at Pt Temp ABG HCO3 ABG Base Excess (Actual) VBG pH VBG pCO2 VBG pO2 VBG HCO3 VBG O2 Saturation VBG Base Excess Sodium 126 L Potassium 4.3 Chloride 94 L Carbon Dioxide 26 Anion Gap 10 L BUN 10 Creatinine 0.61 Estim Creat Clear Calc 121.7 Estimated GFR > 60 POC Glucose Random Glucose 90 Calcium 8.3 L Phosphorus Magnesium Total Bilirubin 0.6 Direct Bilirubin AST 30 ALT 8 Alkaline Phosphatase 69 Ammonia Troponin I High Sens B-Natriuretic Peptide Total Protein 6.5 Albumin 3.6 Lipase Urine Color Yellow Urine Appearance Clear Urine pH 7.5 Ur Specific [place] 1.020 Urine Protein Negative Urine Glucose (UA) Negative Urine Ketones Negative Urine Blood Negative Urine Nitrite Negative Ur Leukocyte Esterase Small (1+) H Urine RBC 0-2 Urine WBC 6-10 H Ur Squamous Epith Cells 0-2 Urine Bacteria None Seen Hyaline Casts 0-2 Valproic Acid < 12.5 L Influenza Type A (PCR) Influenza Type B (PCR) RSV RNA Qual (PCR) SARS-CoV-2 RNA (RT-PCR) 11/02/24 11/02/24 11/02/24 05:49 05:52 08:25 WBC 7.0 RBC 3.83 L Hgb 11.2 L Hct 31.9 L MCV 83.3 MCH 29.2 MCHC 35.1 RDW 13.6 Plt Count 180 MPV 8.6 L Immature Gran % (Auto) 0.3 Neut % (Auto) 57.8 Lymph % (Auto) 25.9 [place] % (Auto) 11.2 H Eos % (Auto) 4.4 H Baso % (Auto) 0.4 Lymph # (Auto) 1.8 [place] # (Auto) 0.8 Eos # (Auto) 0.3 Baso # (Auto) 0.0 Abs Immat Gran (auto) 0.02 Absolute Neuts (auto) 4.0 Absolute Nucleated RBC 0.000 Nucleated RBC % (auto) 0.0 PT INR aPTT Heparin Protocol 183.1 H* D O2 Saturation ABG pH at Pt Temp ABG pCO2 at Pt Temp ABG pO2 at Pt Temp ABG HCO3 ABG Base Excess (Actual) VBG pH 7.55 H VBG pCO2 27 VBG pO2 66 VBG HCO3 24 VBG O2 Saturation 93.0 VBG Base Excess 3.3 Sodium 123 L 124 L Potassium 4.4 3.8 Chloride 93 L 93 L Carbon Dioxide 22 24 Anion Gap 12 11 L BUN 8 L 7 L Creatinine 0.55 0.56 Estim Creat Clear Calc 146.2 143.6 Estimated GFR > 60 > 60 POC Glucose Random Glucose 86 86 Calcium 8.7 8.5 Phosphorus 2.8 Magnesium 1.8 Total Bilirubin 0.7 0.7 Direct Bilirubin AST 40 H 32 ALT 9 6 Alkaline Phosphatase 69 66 Ammonia Troponin I High Sens B-Natriuretic Peptide Total Protein 6.9 6.6 Albumin 3.7 3.6 Lipase Urine Color Urine Appearance Urine pH Ur Specific [place] Urine Protein Urine Glucose (UA) Urine Ketones Urine Blood Urine Nitrite Ur Leukocyte Esterase Urine RBC Urine WBC Ur Squamous Epith Cells Urine Bacteria Hyaline Casts Valproic Acid Influenza Type A (PCR) Influenza Type B (PCR) RSV RNA Qual (PCR) SARS-CoV-2 RNA (RT-PCR) 11/02/24 09:56 WBC RBC Hgb Hct MCV MCH MCHC RDW Plt Count MPV Immature Gran % (Auto) Neut % (Auto) Lymph % (Auto) [place] % (Auto) Eos % (Auto) Baso % (Auto) Lymph # (Auto) [place] # (Auto) Eos # (Auto) Baso # (Auto) Abs Immat Gran (auto) Absolute Neuts (auto) Absolute Nucleated RBC Nucleated RBC % (auto) PT INR aPTT Heparin Protocol 82.8 H D O2 Saturation ABG pH at Pt Temp ABG pCO2 at Pt Temp ABG pO2 at Pt Temp ABG HCO3 ABG Base Excess (Actual) VBG pH VBG pCO2 VBG pO2 VBG HCO3 VBG O2 Saturation VBG Base Excess Sodium Potassium Chloride Carbon Dioxide Anion Gap BUN Creatinine Estim Creat Clear Calc Estimated GFR POC Glucose Random Glucose Calcium Phosphorus Magnesium Total Bilirubin Direct Bilirubin AST ALT Alkaline Phosphatase Ammonia Troponin I High Sens B-Natriuretic Peptide Total Protein Albumin Lipase Urine Color Urine Appearance Urine pH Ur Specific [place] Urine Protein Urine Glucose (UA) Urine Ketones Urine Blood Urine Nitrite Ur Leukocyte Esterase Urine RBC Urine WBC Ur Squamous Epith Cells Urine Bacteria Hyaline Casts Valproic Acid Influenza Type A (PCR) Influenza Type B (PCR) RSV RNA Qual (PCR) SARS-CoV-2 RNA (RT-PCR) Progress Note: A&P Assessment and plan (1) Hypertension: Status: Acute (2) Encephalopathy: Status: Acute (3) Seizure: Status: Acute (4) COPD (chronic obstructive pulmonary disease): Status: Acute Plan Seizures: Patient has acute encephalopathy secondary to postictal syndrome because of which he is confused Loaded with Keppra, continue home Depakote 500 mg b.i.d we will change to IV Patient is significantly confused, not following commands. He has a weak back hand but power in the forearm and arm normal in the left upper extremity possibly due to postictal syndrome CT head yesterday and a repeat CT head this morning did not show any acute intracranial pathology CAD status post CABG: Continue aspirin and statin Carvedilol held due to soft blood pressures History of pulmonary embolism: We will switch apixaban to Lovenox therapeutic dose as he is NPO COPD: Respiratory status stable, saturations normal on room air We will do duo nebs as needed He remains NPO, we will start on LR at 75 cc/hour; we will watch fluid status as he has a history of CAD Chronic hyponatremia: Has a history of SIADH, sodium 124 We will get urine sodium and osmolality Prophylaxis: Lovenox, pantoprazole Quality Stroke Does the patient have a stroke diagnosis?: No VTE Prior VTE?: No VTE Risk Level:: Medical - moderate - high VTE Device Contraindication: N/A - Device Ordered VTE Drug Contraindication: N/A - Med Ordered
[2024-11-02] MEDS: Lactated Ringers 1,000 ML 75 ML IVCONT ×2 (11:05→23:21)
[2024-11-02] MEDS: SODIUM IV (11:47)
[2024-11-02] MEDS: VALPROIC ACID IV (11:47)
--- NOTE | 2024-11-02 18:37 | PC.NURSE ---
Patient alert but disoriented to time, place and situation. Slight left sided facial droop and arm weakness, patient on heparin gtt MD made aware and STAT CT scan ordered. Heparin gtt discontinued Lovenox ordered. Patient remembered situation explained this morning, this evening. IV fluids infusing as ordered.
[2024-11-02 20:14] LABS: Alanine Aminotransferase 7 U/L (0-40); Albumin Level 3.3 g/dL (3.5-5.0); Alkaline Phosphatase 62 U/L (39-117); Anion Gap 15 (12-20); Aspartate Amino Transferase 34 U/L (5-37); Blood Urea Nitrogen 7 mg/dL (9-16); Calcium 8.5 mg/dL (8.4-10.2); Carbon Dioxide 18 mmol/L (22-29); Chloride 95 mmol/L (96-108); Creatinine Clr Calc Pharmacy 136.3; Estimated Glomerular Filt Rate > 60; Potassium 4.5 mmol/L (3.3-5.1); Sodium 123 mmol/L (135-145); Total Protein 6.5 g/dL (6.5-8.0)
[2024-11-03] VITALS (17 sets, daily range): BP systolic 90–155; BP diastolic 50–78; PULSE 73–89; RESP 11–20; TEMP 36.6–37.7; O2SAT 89–98; BMI 28.1
[2024-11-03 00:02] LABS: Alanine Aminotransferase 7 U/L (0-40); Albumin Level 3.6 g/dL (3.5-5.0); Alkaline Phosphatase 69 U/L (39-117); Anion Gap 10 (12-20); Aspartate Amino Transferase 30 U/L (5-37); Blood Urea Nitrogen 8 mg/dL (9-16); Calcium 8.6 mg/dL (8.4-10.2); Carbon Dioxide 23 mmol/L (22-29); Chloride 94 mmol/L (96-108); Creatinine Clr Calc Pharmacy 129.7; Estimated Glomerular Filt Rate > 60; Potassium 4.1 mmol/L (3.3-5.1); Sodium 123 mmol/L (135-145); Total Protein 6.6 g/dL (6.5-8.0)
[2024-11-03 05:25] LABS: VBG HCO3 24 mmol/L (22-26); VBG O2 % Saturation 97.0 %
[2024-11-03 05:26] LABS: Venous Blood Gas Refer to POC result
[2024-11-03 05:34] LABS: MANUAL DIFF FLAG NO
[2024-11-03 05:38] LABS: Hematocrit 28.9 % (42.0-52.0); Hemoglobin 10.3 g/dl (14.0-18.0); Imm Gran Abs Auto 0.01 X10*3/uL (0.00-0.03); Imm Gran Pct Auto 0.2 % (0.0-0.4); Lymphocytes Absolute Auto 1.6 X10*3/uL (1.2-4.9); Mean Corpuscular HGB Conc 35.6 g/dl (31.0-36.0); Mean Corpuscular Hemoglobin 29.4 pg (27.0-33.0); Mean Corpuscular Volume 82.6 fL (80.0-98.0); NRBC Abs Auto 0.000 X10*3/uL (0.0-0.012); NRBC Pct Auto 0.0 /100WBC (0.0-0.2); Platelet Count 187 X10*3/uL (160-400); Red Blood Count 3.50 X10*6/uL (4.60-5.80); White Blood Count 5.1 X10*3/uL (4.8-10.8)
[2024-11-03 05:53] LABS: Alanine Aminotransferase 6 U/L (0-40); Albumin Level 3.3 g/dL (3.5-5.0); Alkaline Phosphatase 61 U/L (39-117); Anion Gap 13 (12-20); Aspartate Amino Transferase 29 U/L (5-37); Blood Urea Nitrogen 8 mg/dL (9-16); Calcium 8.4 mg/dL (8.4-10.2); Carbon Dioxide 20 mmol/L (22-29); Chloride 97 mmol/L (96-108); Creatinine Clr Calc Pharmacy 138.7; Estimated Glomerular Filt Rate > 60; Magnesium 1.7 mg/dL (1.6-2.6); Potassium 4.0 mmol/L (3.3-5.1); Sodium 126 mmol/L (135-145); Total Protein 6.3 g/dL (6.5-8.0)
[2024-11-03] MEDS: levETIRAcetam in NaCl (iso-os) 1,000 MG/100 ML PIGGYBACK 400 MG IV ×2 (06:15→18:21)
[2024-11-03] MEDS: Albumin Human 25 % 100 ML 133.33 ML IV ×2 (08:58→10:04)
--- NOTE | 2024-11-03 09:49 | PM.PNORT ---
Subjective Subjective Date of Service: 11/03/24 Interval history: Patient is a 69-year-old male admitted to the hospital for repeated tonic-clonic seizures, recurrent sepsis, and other medical concerns Reports significant left hip pain Status post CRPP of left hip, patient is unable to recall this surgery, states ?I have never had surgery on that hip? However, the patient does state to me that he is scheduled for a hip surgery ?soon?, but is unable to tell me where this surgery we will be held or when it is scheduled for Of note, the patient is much more alert and oriented today than he was during interview yesterday No acute events overnight No other acute complaints or concerns at this time Physical Exam Vital Signs: Vital Signs: Last Vital Signs Temp 98.8 F 11/03/24 09:00 Pulse 81 11/03/24 09:00 Resp 16 11/03/24 09:00 BP 125/54 L 11/03/24 09:00 Pulse Ox 97 11/03/24 09:00 O2 Del Method Room Air 11/03/24 09:00 O2 Flow Rate 1 11/02/24 06:00 Oxygen Flow Rate 2 11/01/24 23:43 BMI result Body Mass Index 28.1 Extrem: Other: Left lower extremity normal to inspection No evidence of skin tenting or breakdown No evidence of shortening or external rotation No evidence of surrounding erythema, ecchymosis No evidence of infection Patient is able to flex and extend the digits of the left foot without difficulty Patient is able to actively flex at the left hip over the course of interview and physical exam without difficulty Compartments soft, nontender Distal sensation intact Capillary refill brisk Procedures Date of Service Date of Service: 11/03/24 Progress Note: A&P Assessment and plan (1) Avascular necrosis of bone of left hip: Status: Acute (2) Status post hip surgery: Status: Acute Plan 1. AVN status post CRPP of left hip Patient is educated about this condition Patient is educated about the typical treatment course Any acute surgical intervention will have to wait until patient is more medically stable Case was discussed with Dr. Zhang yesterday, who recommended potential conversion to hip hemiarthroplasty We will follow-up with the patient is living facility to determine if he is actually scheduled for a hip surgery Plan for potential conversion to hip hemiarthroplasty once medical stability has been obtained Continue with all other recommendations per ICU Orthopedics will continue to follow Time Spent With Patient Time: Total time managing care of this patient today ____ minutes. Quality Stroke Does the patient have a stroke diagnosis?: No VTE Prior VTE?: No VTE Risk Level:: Medical - moderate - high VTE Device Contraindication: N/A - Device Ordered VTE Drug Contraindication: N/A - Med Ordered
--- NOTE | 2024-11-03 11:06 | PM.CCPN ---
Subjective Subjective Date of Service: 11/03/24 Interval History: Doing better this morning, asking to be moved upstairs so that he can have better sleep Mentation has improved but still slight confusion is present Critical Care Time (minutes): 35 Physical Exam Vital Signs: Vital Signs: Last Vital Signs Temp 98.8 F 11/03/24 09:00 Pulse 76 11/03/24 10:00 Resp 14 11/03/24 10:00 BP 120/63 11/03/24 10:00 Pulse Ox 97 11/03/24 10:00 O2 Del Method Room Air 11/03/24 10:00 O2 Flow Rate 1 11/02/24 06:00 Oxygen Flow Rate 2 11/01/24 23:43 BMI result Body Mass Index 28.1 General: Elderly male not in acute distress, lying down in the bed Nutritional Appearance: well nourished and overweight Eyes: appearance normal, both eyes and all related structures; Alignment and Position: alignment normal and position normal, has eyeglasses on Neck: No lymphadenopathy, no thyromegaly Resp: bilateral air entry equal, occasional added sounds present Cardio: Regular rate, regular rhythm; Heart sounds: S1 normal heart sound present and S2 normal heart sound present GI: soft, nontender, no guarding, no hepatosplenomegaly : bladder normal to inspection, bladder normal to palpation, no renal angle tenderness Skin: no rashes or lesions noted and elasticity normal Neuro: More alert and oriented, still some confusion is present Objective Data Labs 11/03/24 05:18 11/03/24 05:18 Labs: Laboratory Results - last 24 hr 11/02/24 11/02/24 11/03/24 19:39 23:40 05:18 WBC 5.1 RBC 3.50 L Hgb 10.3 L Hct 28.9 L MCV 82.6 MCH 29.4 MCHC 35.6 RDW 13.3 Plt Count 187 MPV 9.1 L Immature Gran % (Auto) 0.2 Neut % (Auto) 52.2 Lymph % (Auto) 31.1 Schleicher % (Auto) 11.0 Eos % (Auto) 4.9 H Baso % (Auto) 0.6 Lymph # (Auto) 1.6 Schleicher # (Auto) 0.6 Eos # (Auto) 0.3 Baso # (Auto) 0.0 Abs Immat Gran (auto) 0.01 Absolute Neuts (auto) 2.7 Absolute Nucleated RBC 0.000 Nucleated RBC % (auto) 0.0 VBG pH VBG pCO2 VBG pO2 VBG HCO3 VBG O2 Saturation VBG Base Excess Sodium 123 L 123 L 126 L Potassium 4.5 4.1 4.0 Chloride 95 L 94 L 97 Carbon Dioxide 18 L 23 20 L Anion Gap 15 10 L 13 BUN 7 L 8 L 8 L Creatinine 0.59 0.62 0.58 Estim Creat Clear Calc 136.3 129.7 138.7 Estimated GFR > 60 > 60 > 60 Random Glucose 78 75 68 Calcium 8.5 8.6 8.4 Phosphorus 2.8 Magnesium 1.7 Total Bilirubin 0.7 0.8 0.8 AST 34 30 29 ALT 7 7 6 Alkaline Phosphatase 62 69 61 Total Protein 6.5 6.6 6.3 L Albumin 3.3 L 3.6 3.3 L 11/03/24 05:21 WBC RBC Hgb Hct MCV MCH MCHC RDW Plt Count MPV Immature Gran % (Auto) Neut % (Auto) Lymph % (Auto) Schleicher % (Auto) Eos % (Auto) Baso % (Auto) Lymph # (Auto) Schleicher # (Auto) Eos # (Auto) Baso # (Auto) Abs Immat Gran (auto) Absolute Neuts (auto) Absolute Nucleated RBC Nucleated RBC % (auto) VBG pH 7.52 H VBG pCO2 29 VBG pO2 81 VBG HCO3 24 VBG O2 Saturation 97.0 VBG Base Excess 2.3 Sodium Potassium Chloride Carbon Dioxide Anion Gap BUN Creatinine Estim Creat Clear Calc Estimated GFR Random Glucose Calcium Phosphorus Magnesium Total Bilirubin AST ALT Alkaline Phosphatase Total Protein Albumin Progress Note: A&P Assessment and plan (1) Mood disorder: Status: Acute (2) Psychosis: Status: Acute (3) Schizophrenia: Status: Acute (4) Seizure: Status: Acute (5) Encephalopathy: Status: Acute (6) COPD (chronic obstructive pulmonary disease): Status: Acute Plan Seizures: Patient has acute encephalopathy secondary to postictal syndrome which is improving, he is more alert and talking more. He has some confusion, unclear about his baseline, he has history of psych illnesses including schizophrenia and mood disorder Continue Keppra and Depakote [address] head normal, did not show any acute intracranial pathology We will restart his home psych medications including ziprasidone and trazodone which she did not get for the past 2 days CAD status post CABG: Continue aspirin and statin Carvedilol we will restart this evening History of pulmonary embolism: apixaban switched to Lovenox therapeutic dose as he is NPO COPD: Respiratory status stable, saturations normal on room air We will do duo nebs as needed He remains NPO, we will start on LR at 75 cc/hour; pending speech and swallow evaluation Chronic hyponatremia: Has a history of SIADH, sodium increased to 126 We will get urine sodium and osmolality Prophylaxis: Lovenox, pantoprazole We will transfer him to floor Quality Stroke Does the patient have a stroke diagnosis?: No VTE Prior VTE?: No VTE Risk Level:: Medical - moderate - high VTE Device Contraindication: N/A - Device Ordered VTE Drug Contraindication: N/A - Med Ordered
[2024-11-03] MEDS: Lactated Ringers 1,000 ML 75 ML IVCONT ×2 (12:27→23:08)
--- NOTE | 2024-11-03 13:09 | P.EN_ITS ---
Event Note Date of Service: 11/03/24 Event Note: Post ICU Transfer : Breakthrough seizure No recurrence of seizure; Neurology consult pending EEG Pending Continue Keppra NPO Pending [employer] eval Left femoral neck Fracture Orthopedic to hold on surgical intervention until his overall condition stable and he is cleared for surgery Hyponatremia , acute likely from SIADH, restrict water oncer fluid started, monitor BMP Nephrology rec RL 75 cc\hr for now as maintenance while NPO Hx PE on Lovenox (Eliquis held) for possible surgical intervention ESBL UTI Continue Meropenem Time Spent With Patient Time: Total time managing care of this patient today ____ minutes.
--- NOTE | 2024-11-03 13:54 | PC.NURSE ---
Assumed care of pt from the ICU. Pt is alert but disoriented to place time and situation .Left Upper midline intatct with Lr infusing at 75cc/ hr . Seizure precautions in place and camera in room .
--- NOTE | 2024-11-03 14:20 | PC.NURSE ---
Attempted to do nursing swallow screen stopped after step #3 as pt refused to participate
[2024-11-04] VITALS (8 sets, daily range): BP systolic 121–140; BP diastolic 68–78; PULSE 62–100; RESP 16–26; TEMP 36.3–39.3; O2SAT 92–98
[2024-11-04 05:49] LABS: MANUAL DIFF FLAG NO
[2024-11-04 05:58] LABS: Hematocrit 29.4 % (42.0-52.0); Hemoglobin 10.5 g/dl (14.0-18.0); Imm Gran Abs Auto 0.01 X10*3/uL (0.00-0.03); Imm Gran Pct Auto 0.2 % (0.0-0.4); Lymphocytes Absolute Auto 1.5 X10*3/uL (1.2-4.9); Mean Corpuscular HGB Conc 35.7 g/dl (31.0-36.0); Mean Corpuscular Hemoglobin 29.3 pg (27.0-33.0); Mean Corpuscular Volume 82.1 fL (80.0-98.0); NRBC Abs Auto 0.000 X10*3/uL (0.0-0.012); NRBC Pct Auto 0.0 /100WBC (0.0-0.2); Platelet Count 208 X10*3/uL (160-400); Red Blood Count 3.58 X10*6/uL (4.60-5.80); White Blood Count 5.6 X10*3/uL (4.8-10.8)
[2024-11-04] MEDS: levETIRAcetam in NaCl (iso-os) 1,000 MG/100 ML PIGGYBACK 400 MG IV ×2 (06:01→18:10)
[2024-11-04 06:15] LABS: Anion Gap 16 (12-20); Blood Urea Nitrogen 6 mg/dL (9-16); Calcium 8.7 mg/dL (8.4-10.2); Carbon Dioxide 19 mmol/L (22-29); Chloride 91 mmol/L (96-108); Creatinine Clr Calc Pharmacy 141.3; Estimated Glomerular Filt Rate > 60; Potassium 4.0 mmol/L (3.3-5.1); Sodium 122 mmol/L (135-145)
--- NOTE | 2024-11-04 06:19 | PM.EVENT ---
Event Note Date of Service: 11/04/24 Event Note: Lab reported hypoglycemia. Will order IV dextrose push. Closely monitor POC Time Spent With Patient Time: Total time managing care of this patient today ____ minutes.
[2024-11-04 06:56] LABS: Glucose, Whole Blood 136 mg/dL (60-115)
--- NOTE | 2024-11-04 07:00 | PC.NURSE ---
bs this am 44 pt asymptomatic dextrose 25 mg amp given iv rechecked bs 136
--- NOTE | 2024-11-04 09:56 | PM.CNNEP ---
History of Present Illness Reason for Consult Consult date: 11/04/24 Chief Complaint Chief complaint: Recurrent Sepsis History of Present Illness Narrative: 69 y/o male with a medical history of schizophrenia, afib, CAD, SIADH, COPD, CHF, TIA, [place] resident. was recently discharged on 10/30 for transient hypotension, UTI, aspiration pneumonitis. presented 11/01 with shortness of breath; while in ED had witnessed tonic-clinic jerking episodes x4, lasting 30-60 seconds each. Nephrology consulted for hyponatremia. Patient with chronic hyponatremia secondary to SIADH. baseline sodium seems to be around 127-131. sodium 126 on 11/03, 122 on 11/04 patient is on LR infusion at 75mL/hr - NPO pending speech and swallow eval 11/03 urine osm 478, urine sodium 183. renal function at baseline, creatinine 0.57. Patient reports he feels ok at bedside. He is oriented to person, place and time. He denies complaints/concerns/new symptoms. Review of Systems Constitutional: Reports no additional constitutional complaints Cardiovascular: Denies chest pain, Denies leg edema, Denies lightheadedness and Denies dyspnea Respiratory: Denies dyspnea Gastrointestinal: Denies abdominal pain, Denies diarrhea, Denies nausea and Denies vomiting Genitourinary: Denies hematuria, Denies difficulty urinating, Denies dysuria and Denies flank pain Skin/Breast: Denies rash PMFSH Past Medical History Medical History Atrial flutter Ischemic cardiomyopathy Former smoker SIADH (syndrome of inappropriate ADH production) Paroxysmal atrial fibrillation Mood disorder Heart failure COPD (chronic obstructive pulmonary disease) Hypertension Hyperlipidemia TIA (transient ischemic attack) Encounter to establish care Surgical History Surgical History S/P CABG x 3 Social History Social History Household Members: Other Household Members Other:: Niece and her daughter Housing: House Do you presently have visiting nurse or other home services: No Unable to assess alcohol history related to: Unknown Alcohol intake: former Patient Tobacco Use Status: Current everyday Tobacco user Tobacco use type: Cigarette Cigarette Packs Per Day: 1 Cigarettes Per Day: 20 Years Smoked: 53 years Smoked in Last 30 Days: Yes e-Cigarette/Vaping Use: Never Used Patient Interested in Nicotine Replacement: No Patient Given Instructions on How to Stop Smoking: No Second Hand Smoke Exposure: No Use of substances other than those prescribed or required for medical reasons: Unable to respond Substance Use Type: Crack/Cocaine and Marijuana Currently Displaying Signs/Symptoms of Drug Intoxication Withdrawal: No Advance Directives: No Advance Directives Information Provided: No Do you have a plan to hurt others: No Plan Recently lost weight without trying: Unsure Nutrition Risks: No Nutritional Risk Poor oral hygiene: No service: No Current occupational status: retired Sexual orientation: Straight/Heterosexual Cognitive needs: Yes Hearing needs: No Vision needs: Yes (Glasses) Meds Allergies Allergy/AdvReac Type Severity Reaction Status Date / Time No Known Allergies Allergy Verified 11/01/24 18:00 Active Medications: Current Medications Aspirin (Aspirin 81 Mg Tab.Chew) 81 mg PO DAILY [facility] Last Admin: 11/03/24 09:05 Dose: 81 mg Atorvastatin Calcium (Atorvastatin Calcium 40 Mg Tablet) 40 mg PO BEDTIME [facility] Last Admin: 11/03/24 20:34 Dose: 40 mg Carvedilol (Carvedilol 3.125 Mg Tablet) 3.125 mg PO BID [facility]; Protocol Last Admin: 11/03/24 20:36 Dose: 3.125 mg Enoxaparin Sodium (Enoxaparin Sodium 100 Mg/Ml Syringe) 90 mg 1 mg/kg (90 mg) SUBCUT Q12H [facility] Last Admin: 11/03/24 23:07 Dose: 90 mg Levetiracetam (Keppra) 1,000 mg in 100 mls @ 400 mls/hr IV Q12H [facility] Last Infusion: 11/04/24 06:31 Dose: Infused Lactated Ringer's (Lr) 1,000 mls @ 75 mls/hr IVCONT .[id number] [facility] Last Admin: 11/03/24 23:08 Dose: 75 mls/hr Meropenem (Meropenem 1 Gm Vial) 1 gm IVPUSH Q12H [facility] Last Admin: 11/03/24 23:08 Dose: 1 gm Morphine Sulfate (Morphine Sulfate 2 Mg/Ml Cartridge) 2 mg IVPUSH Q4H PRN; Protocol PRN Reason: Pain, Severe (Pain Scale 7-10) Last Admin: 11/04/24 09:26 Dose: 2 mg Pantoprazole Sodium (Pantoprazole Sodium 40 Mg/10 Ml Vial) 40 mg IVPUSH DAILY@0630 [facility] Last Admin: 11/04/24 05:30 Dose: 40 mg Trazodone HCl (Trazodone Hcl 25 Mg Halftab) 75 mg PO BEDTIME PRN PRN Reason: Sleep Ziprasidone (Ziprasidone 80 Mg Capsule) 80 mg PO BID [facility] Last Admin: 11/03/24 20:35 Dose: 80 mg Home Medications ?Medication ?Instructions ?Recorded ?Confirmed ?Last Taken ?Type cetirizine 10 mg tablet (All Day 10 mg PO DAILY PRN allergies 09/30/24 11/02/24 Unknown History Allergy (cetirizine)) divalproex 500 mg tablet,extended 500 mg PO BID 09/30/24 11/02/24 Unknown History release 24 hr docusate sodium 100 mg tablet 100 mg PO BID 09/30/24 11/02/24 Unknown History melatonin 3 mg tablet 6 mg PO BEDTIME 09/30/24 11/02/24 Unknown History montelukast 10 mg tablet 10 mg PO DAILY 09/30/24 11/02/24 Unknown History omeprazole 20 mg capsule,delayed 20 mg PO DAILY@1630 09/30/24 11/02/24 Unknown History release polyethylene glycol 3350 17 17 g PO DAILY 09/30/24 11/02/24 Unknown History gram/dose oral powder tiotropium bromide 2.5 2 puff inhalation DAILY 09/30/24 11/02/24 Unknown History mcg/actuation mist for inhalation (Spiriva Respimat) sennosides 8.6 mg tablet (senna) 17.2 mg PO BID 10/26/24 11/02/24 Unknown History trazodone 50 mg tablet 75 mg PO BEDTIME PRN sleep 10/26/24 11/02/24 Unknown History ziprasidone HCl 80 mg capsule 80 mg PO BID 10/26/24 11/02/24 Unknown History acetaminophen 325 mg tablet 650 mg PO Q6H PRN MILD PAIN OR 11/02/24 11/02/24 Unknown History FEVER >100.0 aspirin 81 mg chewable tablet 81 mg PO DAILY 11/02/24 11/02/24 Unknown History atorvastatin 40 mg tablet (Lipitor) 40 mg PO BEDTIME 11/02/24 11/02/24 Unknown History carvedilol 3.125 mg tablet 3.125 mg PO BID 11/02/24 11/02/24 Unknown History guaifenesin 100 mg/5 mL oral 100 mg PO Q4H PRN Cough 11/02/24 11/02/24 Unknown History liquid (Daphney-Tussin) ipratropium 0.5 mg-albuterol 3 mg 3 ml inhalation Q6H PRN wheezing 11/02/24 11/02/24 Unknown History (2.5 mg base)/3 mL nebulization soln Physical Exam Vital Signs: Last Vital Signs Temp 97.4 F 11/04/24 07:25 Pulse 62 11/04/24 07:25 Resp 16 11/04/24 07:25 BP 121/73 11/04/24 07:25 Pulse Ox 95 11/04/24 07:25 O2 Del Method Room Air 11/04/24 07:25 O2 Flow Rate 1 11/02/24 06:00 Oxygen Flow Rate 2 11/01/24 23:43 BMI result Body Mass Index 28.1 Const General: no acute distress, alert and awake Resp Effort & Inspection: normal respiratory effort and able to speak in complete sentences Auscultation: clear to auscultation bilaterally Cardio Rate: regular rate Rhythm: regular rhythm Heart sounds: S1 normal heart sound present and S2 normal heart sound present GI Palpation (GI): Firmness to palpation present (GI) and nontender General: Yes no CVA tenderness Back/Spine/Pelvis Back: no CVA tenderness Skin Rashes: no rashes Extrem General: No edema Results Lab Results 11/04/24 05:11 11/04/24 05:11 Lab results: Chemistry 11/01/24 11/01/24 11/02/24 18:16 23:43 05:49 Sodium 124 L 126 L 123 L Potassium 4.3 4.3 4.4 Carbon Dioxide 26 26 22 BUN 13 10 8 L Creatinine 0.76 0.61 0.55 Calcium 8.8 8.3 L 8.7 Phosphorus 2.8 11/02/24 11/02/24 11/02/24 08:25 19:39 23:40 Sodium 124 L 123 L 123 L Potassium 3.8 4.5 4.1 Carbon Dioxide 24 18 L 23 BUN 7 L 7 L 8 L Creatinine 0.56 0.59 0.62 Calcium 8.5 8.5 8.6 Phosphorus 11/03/24 11/04/24 05:18 05:11 Sodium 126 L 122 L Potassium 4.0 4.0 Carbon Dioxide 20 L 19 L BUN 8 L 6 L Creatinine 0.58 0.57 Calcium 8.4 8.7 Phosphorus 2.8 Hematology 11/01/24 11/02/24 11/03/24 18:16 05:49 05:18 WBC 5.4 7.0 5.1 Hgb 10.6 L 11.2 L 10.3 L Plt Count 212 180 187 11/04/24 05:11 WBC 5.6 Hgb 10.5 L Plt Count 208 Urinalysis 11/01/24 22:50 Urine Color Yellow Urine Appearance Clear Urine pH 7.5 Ur Specific [place] 1.020 Urine Protein Negative Urine Glucose (UA) Negative Urine Ketones Negative Urine Blood Negative Urine Nitrite Negative Ur Leukocyte Esterase Small (1+) H Urine RBC 0-2 Urine WBC 6-10 H Ur Squamous Epith Cells 0-2 Hyaline Casts 0-2 Urine Studies 11/03/24 11:51 Urine Osmolality 478 Assessment and Plan (1) Hyponatremia: Status: Acute Plan Hyponatremia, acute does have baseline SIADH has had worsening of serum sodium, also had significant increase in urine output in addition to very high urine sodium of 183. Suspect he has seizure-related salt wasting - he is losing large amount of water and salt in urine. recommend: place [place] start normal saline drip at 150ml/hr lasix 40mg IVP 2 hours after lasix push, should check urine osm and urine sodium will repeat a BMP this afternoon to ensure sodium is not dropping further and lasix is allowing for adequate water excretion in urine Discussed with Dr Meyer. Procedures Date of Service Date of Service: 11/04/24
[2024-11-04 11:20] LABS: Glucose, Whole Blood 67 mg/dL (60-115)
--- NOTE | 2024-11-04 11:30 | PM.NEUROCN ---
History of Present Illness Data of Consult Service Date: 11/04/24 Primary Care Provider: Aminah Lee MD [facility] Reason for consult: Seizure 69 years old man with complex underlying medical and psychiatric history with diagnosis of atrial fibrillation/flutter on anticoagulation, psychotic disorder taking Geodon, was being treated for infection and low blood pressure. Apparently he was noted to have seizure-like episodes. He was not known to have seizures or at least there was no documentation of seizure disorder in his past medical history list. He also denied that he had seizures. Review of Systems Review of Systems: Recent addition of antibiotic to treat infection [facility] Past Medical History Medical History Atrial flutter Ischemic cardiomyopathy Former smoker SIADH (syndrome of inappropriate ADH production) Paroxysmal atrial fibrillation Mood disorder Heart failure COPD (chronic obstructive pulmonary disease) Hypertension Hyperlipidemia TIA (transient ischemic attack) Encounter to establish care Surgical History Surgical History S/P CABG x 3 Social History Social History Household Members: Other Household Members Other:: Niece and her daughter Housing: House Do you presently have visiting nurse or other home services: No Unable to assess alcohol history related to: Unknown Alcohol intake: former Patient Tobacco Use Status: Current everyday Tobacco user Tobacco use type: Cigarette Cigarette Packs Per Day: 1 Cigarettes Per Day: 20 Years Smoked: 53 years Smoked in Last 30 Days: Yes e-Cigarette/Vaping Use: Never Used Patient Interested in Nicotine Replacement: No Patient Given Instructions on How to Stop Smoking: No Second Hand Smoke Exposure: No Use of substances other than those prescribed or required for medical reasons: Unable to respond Substance Use Type: Crack/Cocaine and Marijuana Currently Displaying Signs/Symptoms of Drug Intoxication Withdrawal: No Advance Directives: No Advance Directives Information Provided: No Do you have a plan to hurt others: No Plan Recently lost weight without trying: Unsure Nutrition Risks: No Nutritional Risk Poor oral hygiene: No service: No Current occupational status: retired Sexual orientation: Straight/Heterosexual Cognitive needs: Yes Hearing needs: No Vision needs: Yes (Glasses) Meds Allergies Allergy/AdvReac Type Severity Reaction Status Date / Time No Known Allergies Allergy Verified 11/01/24 18:00 Active Medications: Current Medications Aspirin (Aspirin 81 Mg Tab.Chew) 81 mg PO DAILY [facility] Last Admin: 11/04/24 11:16 Dose: Not Given Atorvastatin Calcium (Atorvastatin Calcium 40 Mg Tablet) 40 mg PO BEDTIME [facility] Last Admin: 11/03/24 20:34 Dose: 40 mg Carvedilol (Carvedilol 3.125 Mg Tablet) 3.125 mg PO BID [facility]; Protocol Last Admin: 11/04/24 11:16 Dose: Not Given Enoxaparin Sodium (Enoxaparin Sodium 100 Mg/Ml Syringe) 90 mg 1 mg/kg (90 mg) SUBCUT Q12H [facility] Last Admin: 11/04/24 11:07 Dose: 90 mg Levetiracetam (Keppra) 1,000 mg in 100 mls @ 400 mls/hr IV Q12H [facility] Last Infusion: 11/04/24 06:31 Dose: Infused Meropenem (Meropenem 1 Gm Vial) 1 gm IVPUSH Q12H [facility] Last Admin: 11/04/24 11:07 Dose: 1 gm Morphine Sulfate (Morphine Sulfate 2 Mg/Ml Cartridge) 2 mg IVPUSH Q4H PRN; Protocol PRN Reason: Pain, Severe (Pain Scale 7-10) Last Admin: 11/04/24 09:26 Dose: 2 mg Pantoprazole Sodium (Pantoprazole Sodium 40 Mg/10 Ml Vial) 40 mg IVPUSH DAILY@0630 [facility] Last Admin: 11/04/24 05:30 Dose: 40 mg Trazodone HCl (Trazodone Hcl 25 Mg Halftab) 75 mg PO BEDTIME PRN PRN Reason: Sleep Ziprasidone (Ziprasidone 80 Mg Capsule) 80 mg PO BID [facility] Last Admin: 11/04/24 11:16 Dose: Not Given Home Medications ?Medication ?Instructions ?Recorded ?Confirmed ?Last Taken ?Type cetirizine 10 mg tablet (All Day 10 mg PO DAILY PRN allergies 09/30/24 11/02/24 Unknown History Allergy (cetirizine)) divalproex 500 mg tablet,extended 500 mg PO BID 09/30/24 11/02/24 Unknown History release 24 hr docusate sodium 100 mg tablet 100 mg PO BID 09/30/24 11/02/24 Unknown History melatonin 3 mg tablet 6 mg PO BEDTIME 09/30/24 11/02/24 Unknown History montelukast 10 mg tablet 10 mg PO DAILY 09/30/24 11/02/24 Unknown History omeprazole 20 mg capsule,delayed 20 mg PO DAILY@1630 09/30/24 11/02/24 Unknown History release polyethylene glycol 3350 17 17 g PO DAILY 09/30/24 11/02/24 Unknown History gram/dose oral powder tiotropium bromide 2.5 2 puff inhalation DAILY 09/30/24 11/02/24 Unknown History mcg/actuation mist for inhalation (Spiriva Respimat) sennosides 8.6 mg tablet (senna) 17.2 mg PO BID 10/26/24 11/02/24 Unknown History trazodone 50 mg tablet 75 mg PO BEDTIME PRN sleep 10/26/24 11/02/24 Unknown History ziprasidone HCl 80 mg capsule 80 mg PO BID 10/26/24 11/02/24 Unknown History acetaminophen 325 mg tablet 650 mg PO Q6H PRN MILD PAIN OR 11/02/24 11/02/24 Unknown History FEVER >100.0 aspirin 81 mg chewable tablet 81 mg PO DAILY 11/02/24 11/02/24 Unknown History atorvastatin 40 mg tablet (Lipitor) 40 mg PO BEDTIME 11/02/24 11/02/24 Unknown History carvedilol 3.125 mg tablet 3.125 mg PO BID 11/02/24 11/02/24 Unknown History guaifenesin 100 mg/5 mL oral 100 mg PO Q4H PRN Cough 11/02/24 11/02/24 Unknown History liquid (Daphney-Tussin) ipratropium 0.5 mg-albuterol 3 mg 3 ml inhalation Q6H PRN wheezing 11/02/24 11/02/24 Unknown History (2.5 mg base)/3 mL nebulization soln Physical Exam Vital Signs: Vital Signs: Last Vital Signs Temp 97.4 F 11/04/24 07:25 Pulse 62 11/04/24 07:25 Resp 16 11/04/24 07:25 BP 121/73 11/04/24 07:25 Pulse Ox 95 11/04/24 07:25 O2 Del Method Room Air 11/04/24 07:25 O2 Flow Rate 1 11/02/24 06:00 Oxygen Flow Rate 2 11/01/24 23:43 BMI result Body Mass Index 28.1 Neuro: Other: Alert and awake with normal spontaneity of speech fluency comprehension and flat affect. He was not in any distress. He was following commands. Face was symmetrical. Visual yuen are full. There was no obvious focal arm or leg weakness. Deep tendon reflexes were trace to absent. Speech was normal. Results Labs 11/04/24 05:11 11/04/24 05:11 Labs: Short CBC 11/04/24 Range/Units 05:11 WBC 5.6 (4.8-10.8) X10*3/uL Hgb 10.5 L (14.0-18.0) g/dl Hct 29.4 L (42.0-52.0) % Plt Count 208 (160-400) X10*3/uL BMP 11/04/24 05:11 Sodium 122 L Potassium 4.0 Chloride 91 L Carbon Dioxide 19 L BUN 6 L Creatinine 0.57 Calcium 8.7 Serum sodium was in 120s. Head CT revealed significant bilateral atrophy more so in the left side. Microbiology Microbiology Results: Microbiology 11/01/24 Unknown Urine clean catch - Clean Catch Midstream Urine Culture - Final No growth. Assessment and Plan (1) Seizure: Status: Acute 69 years old man who apparently did not have previous history of seizure disorder was noted to have seizure-like episodes. At this time, his serum sodium was quite low, blood pressure was also low, and he was started on an antibiotic. All these factors likely contributed to seizures, especially the antibiotic. As he has already taking Depakote, I would not add any more antiepileptic at this time. Treatment of contributing factors is recommended. In addition, an EEG is recommended to rule out any underlying possibility of epileptic tendency. Procedures Date of Service Date of Service: 11/04/24
[2024-11-04 12:01] LABS: Glucose, Whole Blood 82 mg/dL (60-115)
--- NOTE | 2024-11-04 12:03 | MHC.SL.SWA ---
Speech Pathologist Impression: Mild oral phase dysphagia, poor self monitoring during evaluation with soft solid trials Risk of Aspiration Due to: Cognitive status Hx of dysphagia Dysphasia Diet Status: Recommend pt resume diet of PUREED (NDD1) and thin liquids, meds in puree, aspiration precautions, assistance with setup/self feeding. Liquid Consistency and Strategies for Safe Swallow: Liquid Intake Recommendation: Thin Liquid Intake Strategies: Solid Food Consistency: Dietary Recommendations: Pureed (NDD1) Additional Modifications to Solid Foods: Oral Medication Intake: Whole with Puree Please contact the pharmacy regarding appropriate crushable or liquid drug formulations that are available whenever modified delivery is recommended. Compensatory Strategies and Precautions to be Taken for Safe Swallow: Supervision While Eating and Drinking for Safe Swallow: Total Assistance (1:1) Foods to Avoid: dry, sticky, hard to chew foods. Swallowing Recommended Treatments: Recommendation for Speech: Inpatient Speech Therapy Comment: Bedside swallow evaluation 11/04/24: Pt is edentulous. Pt ROM of lips, tongue, jaw and pharynx WNL. Voice unremarkable. Oropharyngeal coordination WNL for thins/purees, no overt s/s of aspiration across length of evaluation. Pt took large bites of soft solid and though able to chew, took extended time and spoke with bolus in his mouth to stay I don't have any teeth . Frequency/Duration: Daily M-F Date Range for Service Req: Timeline to reassess: Peer Support Specialist Clinican/Clinical Fellow: No Supervisory Statement: I have reviewed and agree with the student/clinical fellow's documentation: N/A Speech Language Pathologist: Jodie Cam M.S., CCC-TECHNOLOGY DIRECTOR
[2024-11-04] MEDS: Sodium Chloride Tab 1 GM TABLET 2 GM PO ×3 (12:18→21:06)
[2024-11-04] MEDS: Furosemide 40 MG/4 ML VIAL IVPUSH (12:18)
[2024-11-04 15:18] LABS: Anion Gap 13 (12-20); Blood Urea Nitrogen 7 mg/dL (9-16); Calcium 8.4 mg/dL (8.4-10.2); Carbon Dioxide 22 mmol/L (22-29); Chloride 91 mmol/L (96-108); Creatinine Clr Calc Pharmacy 143.8; Estimated Glomerular Filt Rate > 60; Potassium 4.2 mmol/L (3.3-5.1); Sodium 122 mmol/L (135-145)
--- NOTE | 2024-11-04 16:08 | MHC.CM.PN ---
per rounds pt doing poorly and may transfer to 4th floor
[2024-11-04 16:45] LABS: Glucose, Whole Blood 84 mg/dL (60-115)
--- NOTE | 2024-11-04 17:00 | PM.EVENT ---
Event Note Date of Service: 11/04/24 Event Note: After discussion with Dr. 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
--- NOTE | 2024-11-04 17:15 | HO.PM.IMPN ---
Subjective Subjective Date of Service: 11/04/24 Interval History: Pt reports some soreness in left hip Otherwise has no acute medical complaints Labs this morning show worsening hyponatremia of 122 No reported seizures Refuses to use bedpain, wants to be transferred [facility] Review of Systems Denies shortness or breath or difficulty breathing No chest pain/pressure Denies nausea, vomiting, abdominal pain Physical Exam Vital Signs: Vital Signs: Last Vital Signs Temp 99 F 11/04/24 15:43 Pulse 82 11/04/24 15:43 Resp 18 11/04/24 15:43 BP 138/78 11/04/24 15:43 Pulse Ox 95 11/04/24 15:43 O2 Del Method Room Air 11/04/24 15:43 O2 Flow Rate 1 11/02/24 06:00 Oxygen Flow Rate 2 11/01/24 23:43 BMI result Body Mass Index 28.1 General: Awake as alert, mild confusion. In no acute distress Resp: CTA bilaterally CVS: S1, S2, RRR GI: +BS, NT, no distention Skin: Warm, dry Neuro: Cranial nerves II-XII grossly intact bilaterally. Extremities: No edema Psych: Appropriate affect Objective Data Active Medications Aspirin (Aspirin 81 Mg Tab.Chew) 81 mg PO DAILY [facility] Last Admin: 11/04/24 11:16 Dose: Not Given Documented By: MONIQUE Non-Admin Reason: NPO Atorvastatin Calcium (Atorvastatin Calcium 40 Mg Tablet) 40 mg PO BEDTIME [facility] Last Admin: 11/03/24 20:34 Dose: 40 mg Documented By: MAXIMILIANO Carvedilol (Carvedilol 3.125 Mg Tablet) 3.125 mg PO BID [facility]; Protocol Last Admin: 11/04/24 11:16 Dose: Not Given Documented By: MONIQUE Non-Admin Reason: NPO Enoxaparin Sodium (Enoxaparin Sodium 100 Mg/Ml Syringe) 90 mg 1 mg/kg (90 mg) SUBCUT Q12H [facility] Last Admin: 11/04/24 11:07 Dose: 90 mg Documented By: MONIQUE Levetiracetam (Keppra) 1,000 mg in 100 mls @ 400 mls/hr IV Q12H [facility] Last Infusion: 11/04/24 06:31 Dose: Infused Documented By: MAXIMILIANO Sodium Chloride (Ns) 1,000 mls @ 150 mls/hr IVCONT .Q6H40M [facility] Last Admin: 11/04/24 12:19 Dose: 150 mls/hr Documented By: MONIQUE Meropenem (Meropenem 1 Gm Vial) 1 gm IVPUSH Q12H [facility] Last Admin: 11/04/24 11:07 Dose: 1 gm Documented By: MONIQUE Morphine Sulfate (Morphine Sulfate 2 Mg/Ml Cartridge) 2 mg IVPUSH Q4H PRN; Protocol PRN Reason: Pain, Severe (Pain Scale 7-10) Last Admin: 11/04/24 09:26 Dose: 2 mg Documented By: MONIQUE Pantoprazole Sodium (Pantoprazole Sodium 40 Mg/10 Ml Vial) 40 mg IVPUSH DAILY@0630 [facility] Last Admin: 11/04/24 05:30 Dose: 40 mg Documented By: MAXIMILIANO Sodium Chloride (Sodium Chloride Tab 1 Gm Tablet) 2 gm PO TID [facility] Last Admin: 11/04/24 14:35 Dose: 2 gm Documented By: MONIQUE Trazodone HCl (Trazodone Hcl 25 Mg Halftab) 75 mg PO BEDTIME PRN PRN Reason: Sleep Ziprasidone (Ziprasidone 80 Mg Capsule) 80 mg PO BID [facility] Last Admin: 11/04/24 11:16 Dose: Not Given Documented By: MONIQUE Non-Admin Reason: NPO Labs 11/04/24 05:11 11/04/24 20:45 Labs: Laboratory Results - last 24 hr 11/01/24 11/04/24 11/04/24 23:43 05:11 06:53 MCV 82.1 MCH 29.3 MCHC 35.7 RDW 13.0 Plt Count 208 MPV 9.4 Immature Gran % (Auto) 0.2 Neut % (Auto) 54.7 Lymph % (Auto) 27.6 [place] % (Auto) 11.2 H Eos % (Auto) 5.8 H Baso % (Auto) 0.5 Lymph # (Auto) 1.5 [place] # (Auto) 0.6 Eos # (Auto) 0.3 Baso # (Auto) 0.0 Abs Immat Gran (auto) 0.01 Absolute Neuts (auto) 3.0 Absolute Nucleated RBC 0.000 Nucleated RBC % (auto) 0.0 Anion Gap 16 Estim Creat Clear Calc 141.3 Estimated GFR > 60 POC Glucose 136 H Random Glucose 44 L* Calcium 8.7 Prolactin 3.7 Urine Osmolality Ur Random Sodium 11/04/24 11/04/24 11/04/24 11:16 11:57 14:51 MCV MCH MCHC RDW Plt Count MPV Immature Gran % (Auto) Neut % (Auto) Lymph % (Auto) [place] % (Auto) Eos % (Auto) Baso % (Auto) Lymph # (Auto) [place] # (Auto) Eos # (Auto) Baso # (Auto) Abs Immat Gran (auto) Absolute Neuts (auto) Absolute Nucleated RBC Nucleated RBC % (auto) Anion Gap 13 Estim Creat Clear Calc 143.8 Estimated GFR > 60 POC Glucose 67 82 Random Glucose 110 Calcium 8.4 Prolactin Urine Osmolality Ur Random Sodium 11/04/24 11/04/24 15:50 16:40 MCV MCH MCHC RDW Plt Count MPV Immature Gran % (Auto) Neut % (Auto) Lymph % (Auto) [place] % (Auto) Eos % (Auto) Baso % (Auto) Lymph # (Auto) [place] # (Auto) Eos # (Auto) Baso # (Auto) Abs Immat Gran (auto) Absolute Neuts (auto) Absolute Nucleated RBC Nucleated RBC % (auto) Anion Gap Estim Creat Clear Calc Estimated GFR POC Glucose 84 Random Glucose Calcium Prolactin Urine Osmolality 369 L Ur Random Sodium 122.0 Microbiology Microbiology Results: Microbiology 11/01/24 Unknown Urine Culture - Final Urine clean catch - Clean Catch Midstream No growth. Assessment and Plan (1) Hyponatremia: Status: Acute Plan 69-year-old male who is a resident of a group home and had been admitted and discharged from this hospital on 10/30/2024 due to transient hypotension, bradycardia which was attributed to aspiration pneumonitis, and a urinary tract infection culture which grew ESBL E coli so the patient was placed on meropenem to be continued all the way to 11/08/2024.?Was admitted to the hospital for possible breakthrough seizure vs syncope. 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 Contacted nephrology, recommend sodium tablets, NS, and then Lasix with labs checked 2 hours later Monitor serum osmolality, urine osmolality and sodium Nephrology following Will monitor BMP q4h for now Left femoral neck AVN S/P cannulated screw fixation of the left femoral neck Question of possible left femoral neck re-injury/fracture Left hip pain has been ongoing for some time Seen by ortho, thought was AVN not acute fracutre Pt wheelchair bound at baseline In the process of preoperative testing for hip surgery at [facility] [place] Follow up outpatient with [facility] [place] for previously scheduled surgery Pt can be transferred via [facility], per ortho ESBL UTI On two weeks of meropenem, set to end 11/08/2024 Continue Diet Seen by speech Re Paroxysmal AFib Continue carvedilol Restart Eliquis Mood disorder/schizophrenia Depakote Coronary artery disease Aspirin, Eliquis, statin Chronic systolic CHF Coreg Full code Require continued hospitalization for continued hypotnatremia that requires close monitoring and specialist input. Quality Stroke Does the patient have a stroke diagnosis?: No VTE Prior VTE?: No VTE Risk Level:: Medical - moderate - high VTE Device Contraindication: N/A - Device Ordered VTE Drug Contraindication: N/A - Med Ordered
[2024-11-04 20:51] LABS: Glucose, Whole Blood 92 mg/dL (60-115)
--- NOTE | 2024-11-04 21:37 | PM.EVENT ---
Event Note Date of Service: 11/04/24 Event Note: Lab reported potassium 6.5. Ordered calcium gluconate, temporizing measures and Lokelma. Contacted lab who did say sample was hemolyzed. Time Spent With Patient Time: Total time managing care of this patient today ____ minutes.
[2024-11-04 21:39] LABS: Anion Gap 18 (12-20); Blood Urea Nitrogen 7 mg/dL (9-16); Calcium 8.6 mg/dL (8.4-10.2); Carbon Dioxide 18 mmol/L (22-29); Chloride 93 mmol/L (96-108); Creatinine Clr Calc Pharmacy 146.4; Estimated Glomerular Filt Rate > 60; Potassium 6.5 mmol/L (3.3-5.1); Sodium 122 mmol/L (135-145)
--- NOTE | 2024-11-04 22:18 | PM.EVENT ---
Event Note Date of Service: 11/04/24 Event Note: Rapid response was called due to lethargy. Upon arrival, patient is awake and answering questions appropriately. He does have fever with temp 102.8 F. Will add vancomycin to meropenem. Also obtaining blood cultures and lactic acid Time Spent With Patient Time: Total time managing care of this patient today ____ minutes.
[2024-11-04] MEDS: Calcium Gluconate/NaCl,Iso-Osm 2 GM/100 ML PLAST..BAG IV (22:22)
[2024-11-04] MEDS: Albumin Human 25 % 100 ML 133.33 ML IV ×2 (22:30→23:36)
[2024-11-04] MEDS: vancomycin/NS 2,000 MG/500 ML PLAST..BAG 250 MG IV (23:36)
[2024-11-05] VITALS (9 sets, daily range): BP systolic 100–148; BP diastolic 51–84; PULSE 72–85; RESP 17–26; TEMP 36.1–38.8; O2SAT 92–99
[2024-11-05 02:38] LABS: Anion Gap 14 (12-20); Blood Urea Nitrogen 7 mg/dL (9-16); Calcium 8.6 mg/dL (8.4-10.2); Carbon Dioxide 22 mmol/L (22-29); Chloride 94 mmol/L (96-108); Creatinine Clr Calc Pharmacy 136.5; Estimated Glomerular Filt Rate > 60; Potassium 3.3 mmol/L (3.3-5.1); Sodium 127 mmol/L (135-145)
--- NOTE | 2024-11-05 06:06 | PC.NURSE ---
at 2220 RR was called pt is lethargic arausable only to name temp 102.t rectal , potassium 6.5 . at beside new orders orders; Iv tylenol , ca gluconate, lokeilma for elevated K and dextrose amp , insulin R iv pt was placed on tele, Albumin x2, vancomycin 2G, vs bp 132/71, RR26, o2sat 92% on RA, P98 , temp rechecked after iv tylenol was 101.8 , and another recheck 98. 7. pt is getting iv fluids NS 150/h at 0430 urine output improved vss
[2024-11-05] MEDS: levETIRAcetam in NaCl (iso-os) 1,000 MG/100 ML PIGGYBACK 400 MG IV ×2 (06:29→18:11)
[2024-11-05 07:20] LABS: Anion Gap 13 (12-20); Blood Urea Nitrogen 8 mg/dL (9-16); Calcium 8.3 mg/dL (8.4-10.2); Carbon Dioxide 19 mmol/L (22-29); Chloride 99 mmol/L (96-108); Creatinine Clr Calc Pharmacy 149.1; Estimated Glomerular Filt Rate > 60; Potassium 4.2 mmol/L (3.3-5.1); Sodium 127 mmol/L (135-145)
[2024-11-05 07:25] LABS: Glucose, Whole Blood 70 mg/dL (60-115)
--- NOTE | 2024-11-05 07:34 | HO.PM.IMPN ---
Subjective Subjective Date of Service: 11/05/24 Interval History: Pt noted to be hypokalemic at 6.5 last night Was given calcium gluconate, Lokelma, albuterol, and insulin with repeat 3.3 Pt also noted to be lethargic and had fever of 102.8 Vancomycin was added to meropenem; blood cultures and lactic acid obtained Reports has some ?mucus? in his throat Denies shortness or breath Reports everything else is ?normal? Review of Systems Review of Systems: Yes all other systems are reviewed and are negative Physical Exam Vital Signs: Vital Signs: Last Vital Signs Temp 99.3 F 11/05/24 07:32 Pulse 79 11/05/24 07:32 Resp 18 11/05/24 07:32 BP 148/84 H 11/05/24 07:32 Pulse Ox 96 11/05/24 07:32 O2 Del Method Room Air 11/05/24 07:32 O2 Flow Rate 2 11/05/24 05:46 Oxygen Flow Rate 2 11/01/24 23:43 BMI result Body Mass Index 28.1 General: Awake and alert, mildly confused. Mild somnolence. In no acute distress Resp: CTA bilaterally CVS: S1, S2, RRR GI: +BS, NT, no distention Skin: Warm, dry Neuro: Cranial nerves II-XII grossly intact bilaterally. Extremities: No edema Psych: Appropriate affect Objective Data Active Medications Apixaban (Apixaban 5 Mg Tablet) 5 mg PO BID [facility] Aspirin (Aspirin 81 Mg Tab.Chew) 81 mg PO DAILY [facility] Last Admin: 11/04/24 11:16 Dose: Not Given Documented By: MONIQUE Non-Admin Reason: NPO Atorvastatin Calcium (Atorvastatin Calcium 40 Mg Tablet) 40 mg PO BEDTIME [facility] Last Admin: 11/04/24 21:06 Dose: 40 mg Documented By: MAXIMILIANO Carvedilol (Carvedilol 3.125 Mg Tablet) 3.125 mg PO BID [facility]; Protocol Last Admin: 11/04/24 21:06 Dose: 3.125 mg Documented By: MAXIMILIANO Levetiracetam (Keppra) 1,000 mg in 100 mls @ 400 mls/hr IV Q12H [facility] Last Infusion: 11/05/24 07:00 Dose: Infused Documented By: MONIQUE Sodium Chloride (Ns) 1,000 mls @ 150 mls/hr IVCONT .Q6H40M [facility] Last Admin: 11/05/24 02:22 Dose: 150 mls/hr Documented By: MAXIMILIANO Vancomycin HCl 1,500 mg/ (Sodium Chloride) 500 mls @ 333.333 mls/hr IV Q12H [facility] Meropenem (Meropenem 1 Gm Vial) 1 gm IVPUSH Q12H [facility] Last Admin: 11/04/24 23:19 Dose: 1 gm Documented By: MAXIMILIANO Morphine Sulfate (Morphine Sulfate 2 Mg/Ml Cartridge) 2 mg IVPUSH Q4H PRN; Protocol PRN Reason: Pain, Severe (Pain Scale 7-10) Last Admin: 11/04/24 09:26 Dose: 2 mg Documented By: MONIQUE Pantoprazole Sodium (Pantoprazole Sodium 40 Mg/10 Ml Vial) 40 mg IVPUSH DAILY@0630 [facility] Last Admin: 11/05/24 05:32 Dose: 40 mg Documented By: MAXIMILIANO Pharmacy Consult (Consult Rx Vancomycin Dosing) 1 each MISCELLANE DAILY PRN PRN Reason: Consult order Sodium Chloride (Sodium Chloride Tab 1 Gm Tablet) 2 gm PO TID [facility] Last Admin: 11/04/24 21:06 Dose: 2 gm Documented By: MAXIMILIANO Trazodone HCl (Trazodone Hcl 25 Mg Halftab) 75 mg PO BEDTIME PRN PRN Reason: Sleep Ziprasidone (Ziprasidone 80 Mg Capsule) 80 mg PO BID [facility] Last Admin: 11/04/24 21:06 Dose: 80 mg Documented By: MAXIMILIANO Labs 11/04/24 05:11 11/05/24 15:31 Labs: Laboratory Results - last 24 hr 11/04/24 11/04/24 11/04/24 11:16 11:57 14:51 Anion Gap 13 Estim Creat Clear Calc 143.8 Estimated GFR > 60 POC Glucose 67 82 Random Glucose 110 Lactic Acid Calcium 8.4 Urine Osmolality Ur Random Sodium 11/04/24 11/04/24 11/04/24 15:50 16:40 20:40 Anion Gap Estim Creat Clear Calc Estimated GFR POC Glucose 84 92 Random Glucose Lactic Acid Calcium Urine Osmolality 369 L Ur Random Sodium 122.0 11/04/24 11/04/24 11/05/24 20:45 22:49 02:13 Anion Gap 18 14 Estim Creat Clear Calc 146.4 136.5 Estimated GFR > 60 > 60 POC Glucose Random Glucose 83 80 Lactic Acid 1.4 Calcium 8.6 8.6 Urine Osmolality Ur Random Sodium 11/05/24 11/05/24 06:39 07:19 Anion Gap 13 Estim Creat Clear Calc 149.1 Estimated GFR > 60 POC Glucose 70 Random Glucose 76 Lactic Acid Calcium 8.3 L Urine Osmolality Ur Random Sodium Assessment and Plan (1) Hyponatremia: Status: Acute Assessment and Plan: 69-year-old male who is a resident of a residential and had been admitted and discharged from this hospital on 10/30/2024 due to transient hypotension, bradycardia which was attributed to aspiration pneumonitis, and a urinary tract infection culture which grew ESBL E coli so the patient was placed on meropenem to be continued all the way to 11/08/2024.?Was admitted to the hospital for possible breakthrough seizure vs syncope. Breakthrough seizure Pt with witnessed seizures x4 in the ED Received 2mg of Ativan, 1.5g of Kepprea, and 1g of Dilanin Initially admitted to ICU for monitoring, transferred to floor on 11/03 No recurrence of seizure Neurology consulted, thought likely secondary to hyponatremia and being on [place] panel EEG read pending Continue Keppra; Depakote has been put on hold Seizure precautions Fever Pt noted to be lethargic and have fever of 102.8 Vancomycin was added to meropenem Repeat blood cultures were drawn; lactic acid WNL at 1.4 Tylenol for fever Follow blood cultures Hyponatremia Improving sodium today, 122-->127 Hx of SIADH; 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 Nephrology following and recommending sodium tablets 2 g t.i.d., NS @150 mls/hr, and Lasix 40 mg IV bid Serum osmolality, urine osmolality and sodium improving Follow BMP Hyperkalemia Potassium noted to be 6.5 last evening Pt was given calcium gluconate, Lokelma, insulin, and albuterol Likely secondary to hemolysis as pt is a difficult stick Repeat showed potassium of 3.3 and 4.4 this morning Follow BMP Monitor on telemetry Left femoral neck AVN S/P cannulated screw fixation of the left femoral neck Question of possible left femoral neck re-injury/fracture Left hip pain has been ongoing for some time Seen by ortho, thought was AVN not acute fracutre Pt wheelchair bound at baseline In the process of preoperative testing for hip surgery at [facility] [place] Follow up outpatient with [facility] for previously scheduled surgery Pt can be transferred via [facility] ESBL UTI On two weeks of meropenem, set to end 11/08/2024 Continue meropenem Diet Seen by speech Recommended. Diet, thin liquids, and meds crushed in puree Paroxysmal AFib Continue carvedilol, Eliquis Mood disorder/schizophrenia Depakote on hold Coronary artery disease Aspirin, Eliquis, statin Chronic systolic CHF Coreg Full code Require continued hospitalization for continued hypotnatremia that requires close monitoring and specialist input. Quality Stroke Does the patient have a stroke diagnosis?: No VTE Prior VTE?: No VTE Risk Level:: Medical - moderate - high VTE Device Contraindication: N/A - Device Ordered VTE Drug Contraindication: N/A - Med Ordered
[2024-11-05 07:54] LABS: Glucose, Whole Blood 78 mg/dL (60-115)
--- NOTE | 2024-11-05 08:05 | PC.NURSE ---
POC of 70 this morning. Patient given 15 gram of carbohydrates per protocol. POC rechecked with result of 78. Patient given additional 15 grams of carbohydrates per protocol. Receiving RN on med-tele updated on patient's status and need for repeat POC.
--- NOTE | 2024-11-05 08:12 | PC.NURSE ---
Patient transferring to [facility]-tele room 461. Report called to SHARON Osuna
[2024-11-05 08:53] LABS: Glucose, Whole Blood 109 mg/dL (60-115)
[2024-11-05] MEDS: Sodium Chloride Tab 1 GM TABLET 2 GM PO ×3 (09:33→19:32)
--- NOTE | 2024-11-05 09:39 | P.PNNP_ITS ---
Subjective Subjective Date of Service: 11/05/24 Interval history: following for hyponatremia. patient reports he is feeling ok at bedside. Denies new complaints/concerns. Physical Exam 2 Vital Signs: Vital Signs: Last Vital Signs Temp 97.3 F 11/05/24 08:28 Pulse 83 11/05/24 08:28 Resp 17 11/05/24 08:28 BP 128/65 11/05/24 08:28 Pulse Ox 95 11/05/24 08:28 O2 Del Method Room Air 11/05/24 08:28 O2 Flow Rate 2 11/05/24 05:46 Oxygen Flow Rate 2 11/01/24 23:43 BMI result Body Mass Index 28.1 Const: General: no acute distress, alert and awake Resp: Effort & Inspection: normal respiratory effort and able to speak in complete sentences Auscultation: clear to auscultation bilaterally Cardio: Rate: regular rate Rhythm: regular rhythm Heart sounds: S1 normal heart sound present and S2 normal heart sound present GI: Palpation (GI): Firmness to palpation present (GI) and nontender : General: Yes no CVA tenderness Back/Spine/Pelvis: Back: no CVA tenderness Skin: Rashes: no rashes Extrem: General: No edema Objective Data Labs 11/04/24 05:11 11/05/24 06:39 Labs: Laboratory Results - last 24 hr 11/04/24 11/04/24 11/04/24 11:16 11:57 14:51 Sodium 122 L Potassium 4.2 Chloride 91 L Carbon Dioxide 22 Anion Gap 13 BUN 7 L Creatinine 0.56 Estim Creat Clear Calc 143.8 Estimated GFR > 60 POC Glucose 67 82 Random Glucose 110 Lactic Acid Calcium 8.4 Urine Osmolality Ur Random Sodium 11/04/24 11/04/24 11/04/24 15:50 16:40 20:40 Sodium Potassium Chloride Carbon Dioxide Anion Gap BUN Creatinine Estim Creat Clear Calc Estimated GFR POC Glucose 84 92 Random Glucose Lactic Acid Calcium Urine Osmolality 369 L Ur Random Sodium 122.0 11/04/24 11/04/24 11/05/24 20:45 22:49 02:13 Sodium 122 L 127 L Potassium 6.5 H* D 3.3 D Chloride 93 L 94 L Carbon Dioxide 18 L 22 Anion Gap 18 14 BUN 7 L 7 L Creatinine 0.55 0.59 Estim Creat Clear Calc 146.4 136.5 Estimated GFR > 60 > 60 POC Glucose Random Glucose 83 80 Lactic Acid 1.4 Calcium 8.6 8.6 Urine Osmolality Ur Random Sodium 11/05/24 11/05/24 11/05/24 06:39 07:19 07:51 Sodium 127 L Potassium 4.2 D Chloride 99 Carbon Dioxide 19 L Anion Gap 13 BUN 8 L Creatinine 0.54 Estim Creat Clear Calc 149.1 Estimated GFR > 60 POC Glucose 70 78 Random Glucose 76 Lactic Acid Calcium 8.3 L Urine Osmolality Ur Random Sodium 11/05/24 08:32 Sodium Potassium Chloride Carbon Dioxide Anion Gap BUN Creatinine Estim Creat Clear Calc Estimated GFR POC Glucose 109 Random Glucose Lactic Acid Calcium Urine Osmolality Ur Random Sodium Microbiology Microbiology Results: Microbiology 11/01/24 Unknown Urine clean catch - Clean Catch Midstream Urine Culture - Final No growth. Procedures Date of Service Date of Service: 11/05/24 Assessment & Plan Assessment and plan (1) Hyponatremia: Status: Acute Plan Hyponatremia, acute - improving does have baseline SIADH, developed likely cerebral salt-wasting given high urine sodium, urine osm and high urine output yesterday with drop in sodium. Serum sodium has improved with NS and lasix to 127 today. start lasix 40mg IVP BID continue to closely monitor fluid intake and urine output continue NS at 150ml/hr continue salt tabs 2gm TID will re-check BMP this afternoon Discussed with Dr Meyer. Time Spent With Patient Time: Total time managing care of this patient today ____ minutes. Progress Note: Quality Stroke Does the patient have a stroke diagnosis?: No
[2024-11-05 11:34] LABS: Glucose, Whole Blood 83 mg/dL (60-115)
[2024-11-05] MEDS: Furosemide 40 MG/4 ML VIAL IVPUSH ×2 (12:23→16:45)
--- NOTE | 2024-11-05 13:02 | MHC.SL.SWA ---
Dysphasia Diet Status: no change Liquid Consistency and Strategies for Safe Swallow: Liquid Intake Recommendation: Thin Liquid Intake Strategies: SLOW, small sips Solid Food Consistency: Dietary Recommendations: Pureed (NDD1) Oral Medication Intake: Whole with Puree/liquid Please contact the pharmacy regarding appropriate crushable or liquid drug formulations that are available whenever modified delivery is recommended. Compensatory Strategies and Precautions to be Taken for Safe Swallow: Sitting Upright (90 deg) Small Bites and Sips Alternate Liquids/Solids Rate of Ingestion Change Supervision While Eating and Drinking for Safe Swallow: Total Assistance (1:1) Foods to Avoid: dry, sticky, hard to chew foods. Swallowing Recommended Treatments: Compens. Strategy Educat. Recommendation for Speech: Inpatient Speech Therapy Comment: Continue to recommend PUREE solids and THIN liquids. Pills tolerating pills whole in liquid per RN. Aspiration precautions and assist in setup/self feeding. User Experience Designer Clinican/Clinical Fellow: No Supervisory Statement: I have reviewed and agree with the student/clinical fellow's documentation: N/A Speech Language Pathologist: Estefani Jay M.A., CCC-MEAT WASHER
[2024-11-05 15:49] LABS: Glucose, Whole Blood 89 mg/dL (60-115)
[2024-11-05 15:54] LABS: Anion Gap 11 (12-20); Blood Urea Nitrogen 5 mg/dL (9-16); Calcium 8.6 mg/dL (8.4-10.2); Carbon Dioxide 28 mmol/L (22-29); Chloride 94 mmol/L (96-108); Creatinine Clr Calc Pharmacy 127.8; Estimated Glomerular Filt Rate > 60; Potassium 3.5 mmol/L (3.3-5.1); Sodium 129 mmol/L (135-145)
[2024-11-05 21:48] LABS: Glucose, Whole Blood 96 mg/dL (60-115)
[2024-11-06] VITALS (9 sets, daily range): BP systolic 98–140; BP diastolic 55–71; PULSE 65–130; RESP 16–18; TEMP 36.1–36.7; O2SAT 93–99
[2024-11-06] MEDS: levETIRAcetam in NaCl (iso-os) 1,000 MG/100 ML PIGGYBACK 400 MG IV ×2 (06:23→18:01)
[2024-11-06 07:29] LABS: Glucose, Whole Blood 85 mg/dL (60-115)
[2024-11-06] MEDS: Sodium Chloride Tab 1 GM TABLET 2 GM PO ×3 (09:09→21:05)
[2024-11-06] MEDS: Furosemide 40 MG/4 ML VIAL IVPUSH (09:09)
--- NOTE | 2024-11-06 09:49 | HO.PM.IMPN ---
Subjective Subjective Date of Service: 11/06/24 Interval History: Pt seen and evaluated in his room where he is resting comfortably in bed Complaining of some SOB and wheezing; requests inhaler Labs this morning show sodium dropping to 127 and potassium to 3.0 Pt otherwise has no acute medical complaints Review of Systems Review of Systems: Yes all other systems are reviewed and are negative Physical Exam Vital Signs: Vital Signs: Last Vital Signs Temp 97.6 F 11/06/24 07:04 Pulse 73 11/06/24 07:04 Resp 16 11/06/24 07:04 BP 140/63 H 11/06/24 07:04 Pulse Ox 96 11/06/24 07:04 O2 Del Method Room Air 11/06/24 07:04 O2 Flow Rate 2 11/05/24 05:46 Oxygen Flow Rate 2 11/01/24 23:43 BMI result Body Mass Index 28.1 General: AOx3, no acute distress Resp: Mild bilateral wheezing CVS: S1, S2, RRR GI: +BS, NT, no distention Skin: Warm, dry Neuro: Cranial nerves II-XII grossly intact bilaterally. Extremities: No edema Psych: Calm and cooperative Objective Data Active Medications Apixaban (Apixaban 5 Mg Tablet) 5 mg PO BID [facility] Last Admin: 11/06/24 09:09 Dose: 5 mg Documented By: ALYCE Aspirin (Aspirin 81 Mg Tab.Chew) 81 mg PO DAILY [facility] Last Admin: 11/06/24 09:09 Dose: 81 mg Documented By: ALYCE Atorvastatin Calcium (Atorvastatin Calcium 40 Mg Tablet) 40 mg PO BEDTIME [facility] Last Admin: 11/05/24 19:32 Dose: 40 mg Documented By: GIOVANNI Carvedilol (Carvedilol 3.125 Mg Tablet) 3.125 mg PO BID [facility]; Protocol Last Admin: 11/06/24 09:08 Dose: 3.125 mg Documented By: ALYCE Furosemide (Furosemide 40 Mg/4 Ml Vial) 40 mg IVPUSH BID@0900,1800 [facility]; Protocol Last Admin: 11/06/24 09:09 Dose: 40 mg Documented By: ALYCE Levetiracetam (Keppra) 1,000 mg in 100 mls @ 400 mls/hr IV Q12H [facility] Last Infusion: 11/06/24 06:41 Dose: Infused Documented By: GIOVANNI Sodium Chloride (Ns) 1,000 mls @ 150 mls/hr IVCONT .Q6H40M [facility] Last Admin: 11/06/24 06:23 Dose: 150 mls/hr Documented By: GIOVANNI Vancomycin HCl 1,500 mg/ (Sodium Chloride) 500 mls @ 333.333 mls/hr IV Q12H [facility] Last Infusion: 11/06/24 01:13 Dose: Infused Documented By: GIOVANNI Meropenem (Meropenem 1 Gm Vial) 1 gm IVPUSH Q12H [facility] Last Admin: 11/05/24 23:27 Dose: 1 gm Documented By: GIOVANNI Morphine Sulfate (Morphine Sulfate 2 Mg/Ml Cartridge) 2 mg IVPUSH Q4H PRN; Protocol PRN Reason: Pain, Severe (Pain Scale 7-10) Last Admin: 11/04/24 09:26 Dose: 2 mg Documented By: MONIQUE Pantoprazole Sodium (Pantoprazole Sodium 40 Mg/10 Ml Vial) 40 mg IVPUSH DAILY@0630 [facility] Last Admin: 11/06/24 06:22 Dose: 40 mg Documented By: GIOVANNI Pharmacy Consult (Consult Rx Vancomycin Dosing) 1 each MISCELLANE DAILY PRN PRN Reason: Consult order Sodium Chloride (Sodium Chloride Tab 1 Gm Tablet) 2 gm PO TID [facility] Last Admin: 11/06/24 09:09 Dose: 2 gm Documented By: ALYCE Trazodone HCl (Trazodone Hcl 25 Mg Halftab) 75 mg PO BEDTIME PRN PRN Reason: Sleep Ziprasidone (Ziprasidone 80 Mg Capsule) 80 mg PO BID [facility] Last Admin: 11/06/24 09:08 Dose: 80 mg Documented By: ALYCE Labs 11/04/24 05:11 11/05/24 15:31 Labs: Laboratory Results - last 24 hr 11/05/24 11/05/24 11/05/24 11:28 15:31 15:41 Anion Gap 11 L Estim Creat Clear Calc 127.8 Estimated GFR > 60 POC Glucose 83 89 Random Glucose 91 Calcium 8.6 11/05/24 11/06/24 21:45 07:19 Anion Gap Estim Creat Clear Calc Estimated GFR POC Glucose 96 85 Random Glucose Calcium Microbiology Microbiology Results: Microbiology 11/04/24 22:50 Blood Culture - Preliminary Blood - Venous No growth after 24 hours. 11/04/24 22:49 Blood Culture - Preliminary Blood - Venous No growth after 24 hours. Assessment and Plan (1) Hyponatremia: Status: Acute Plan 69-year-old male who is a resident of a alf and had been admitted and discharged from this hospital on 10/30/2024 due to transient hypotension, bradycardia which was attributed to aspiration pneumonitis, and a urinary tract infection culture which grew ESBL E coli. Pt was placed on meropenem to be continued until 11/08/2024.?Was admitted to the hospital for possible breakthrough seizure vs syncope. 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 Nephrology following and recommending sodium tablets 2 g t.i.d., NS @150 mls/hr, and Lasix 40 mg IV bid Will recheck urine osmolality and sodium Follow BMP Breakthrough seizure Pt with witnessed seizures x4 in the ED Received 2mg of Ativan, 1.5g of Kepprea, and 1g of Dilanin Initially admitted to ICU for monitoring, transferred to floor on 11/03 No recurrence of seizure Neurology consulted, thought likely secondary to hyponatremia and being on Nemo panel EEG read pending Continue Keppra; Depakote has been put on hold Seizure precautions Hypokalemia Sodium 3.0 on 11/06 Likely secondary to diuresing Will give supplementation Follow potassium Fever Pt noted to be lethargic and have fever of 102.8 on 11/04 Vancomycin was added to meropenem Repeat blood cultures were drawn; lactic acid WNL at 1.4 Tylenol for fever Follow blood cultures Hyperkalemia, resolved Potassium noted to be 6.5 on 11/04 Pt was given calcium gluconate, Lokelma, insulin, and albuterol Likely secondary to hemolysis as pt is a difficult stick Monitor on telemetry Left femoral neck AVN S/P cannulated screw fixation of the left femoral neck Question of possible left femoral neck re-injury/fracture Left hip pain has been ongoing for some time Seen by ortho, thought was AVN not acute fracutre Pt wheelchair bound at baseline In the process of preoperative testing [place] [facility] Follow up outpatient with [facility] for previously scheduled surgery Pt can be transferred via [facility], per yancy ESBL UTI On two weeks of meropenem, set to end 11/08/2024 Continue meropenem Diet Seen by speech Recommended. Diet, thin liquids, and meds crushed in puree Paroxysmal AFib Continue carvedilol, Eliquis Mood disorder/schizophrenia Depakote on hold Coronary artery disease Aspirin, Eliquis, statin Chronic systolic CHF Coreg Full code Require continued hospitalization for continued hypotnatremia that requires close monitoring and specialist input. Quality Stroke Does the patient have a stroke diagnosis?: No VTE Prior VTE?: No VTE Risk Level:: Medical - moderate - high VTE Device Contraindication: N/A - Device Ordered VTE Drug Contraindication: N/A - Med Ordered
[2024-11-06] MEDS: Albuterol/Iprat 2.5/0.5MG 3 ML AMPUL.NEB INHALE (10:02)
--- NOTE | 2024-11-06 10:04 | PC.RT ---
pt screaming at the top of his lungs for respiratory. prn neb tx given . pt in no resp distress. rr 16 sats 975 BS: C/D LILIAN
[2024-11-06 10:16] LABS: Anion Gap 10 (12-20); Blood Urea Nitrogen 4 mg/dL (9-16); Calcium 8.6 mg/dL (8.4-10.2); Carbon Dioxide 27 mmol/L (22-29); Chloride 93 mmol/L (96-108); Creatinine Clr Calc Pharmacy 164.4; Estimated Glomerular Filt Rate > 60; Potassium 3.0 mmol/L (3.3-5.1); Sodium 127 mmol/L (135-145)
--- NOTE | 2024-11-06 10:33 | MHC.CM.PN ---
Per ROUNDS discussion, Patient is not yet medically cleared for dc (working with Nephrology/Monitoring Na); returning to LTC is the plan and CM will continue to follow.
--- NOTE | 2024-11-06 10:53 | P.PNNP_ITS ---
Subjective Subjective Date of Service: 11/06/24 Interval history: following for hyponatremia. patient reports he is feeling ok at bedside. Denies new complaints/concerns. Physical Exam 2 Vital Signs: Vital Signs: Last Vital Signs Temp 97.6 F 11/06/24 07:04 Pulse 85 11/06/24 10:02 Resp 16 11/06/24 10:02 BP 140/63 H 11/06/24 07:04 Pulse Ox 96 11/06/24 07:04 O2 Del Method Room Air 11/06/24 07:04 O2 Flow Rate 2 11/05/24 05:46 Oxygen Flow Rate 2 11/01/24 23:43 BMI result Body Mass Index 28.1 Const: General: no acute distress, alert and awake Resp: Effort & Inspection: normal respiratory effort and able to speak in complete sentences Auscultation: clear to auscultation bilaterally Cardio: Rate: regular rate Rhythm: regular rhythm Heart sounds: S1 normal heart sound present and S2 normal heart sound present GI: Palpation (GI): Firmness to palpation present (GI) and nontender : General: Yes no CVA tenderness Back/Spine/Pelvis: Back: no CVA tenderness Skin: Rashes: no rashes Extrem: General: No edema Objective Data Labs 11/04/24 05:11 11/06/24 09:52 Labs: Laboratory Results - last 24 hr 11/05/24 11/05/24 11/05/24 11:28 15:31 15:41 Sodium 129 L Potassium 3.5 Chloride 94 L Carbon Dioxide 28 Anion Gap 11 L BUN 5 L Creatinine 0.63 Estim Creat Clear Calc 127.8 Estimated GFR > 60 POC Glucose 83 89 Random Glucose 91 Calcium 8.6 Random Vancomycin 11/05/24 11/06/24 11/06/24 21:45 07:19 09:52 Sodium 127 L Potassium 3.0 L Chloride 93 L Carbon Dioxide 27 Anion Gap 10 L BUN 4 L Creatinine 0.49 L Estim Creat Clear Calc 164.4 Estimated GFR > 60 POC Glucose 96 85 Random Glucose 114 Calcium 8.6 Random Vancomycin 20.2 H Microbiology Microbiology Results: Microbiology 11/04/24 22:50 Blood - Venous Blood Culture - Preliminary No growth after 24 hours. 11/04/24 22:49 Blood - Venous Blood Culture - Preliminary No growth after 24 hours. 11/01/24 Unknown Urine clean catch - Clean Catch Midstream Urine Culture - Final No growth. Procedures Date of Service Date of Service: 11/06/24 Assessment & Plan Assessment and plan (1) Hyponatremia: Status: Acute Plan Hyponatremia is worsening this a.m. to 127 from 129 yesterday afternoon does have baseline SIADH, developed likely cerebral salt-wasting given high urine sodium, urine osm and high urine output urine output over 6.5L documented, though over 2L was documented as voiding not from catheter- discussed with RN, unclear but likely double documented overnight and UOP is more like 4L. will need updated urine sodium and urine osmolality to assess how much sodium patient is wasting- additional recommendations pending results. recommend continuing diuretics and IVF for now, replace potassium as needed. *ensure close I&O monitoring. continue slat tablets 2gm PO TID Discussed with Dr Meyer. Time Spent With Patient Time: Total time managing care of this patient today ____ minutes. Progress Note: Quality Stroke Does the patient have a stroke diagnosis?: No
[2024-11-06] MEDS: Potassium Chloride Packet 20 MEQ PACKET 40 MEQ PO (11:31)
[2024-11-06] MEDS: Tiotropium Bromide 2.5 mcg 1 PUFF/2.5 MCG MIST.INHAL 2 PUFF INHALE (11:48)
--- NOTE | 2024-11-06 13:30 | MHC.SL.SWA ---
Speech Pathologist Impression: Risk of Aspiration Due to: Hx aspiration PNA Poor self monitoring (resistance to prompting) Dysphasia Diet Status: Continue to recommend PUREE solids (NDD1) and THIN liquids. Pills tolerating pills whole in liquid per RN. Aspiration precautions and assist in setup/self feeding. Liquid Consistency and Strategies for Safe Swallow: Liquid Intake Recommendation: Thin Liquid Intake Strategies: Solid Food Consistency: Dietary Recommendations: Pureed (NDD1) Additional Modifications to Solid Foods: Oral Medication Intake: Whole with Puree Please contact the pharmacy regarding appropriate crushable or liquid drug formulations that are available whenever modified delivery is recommended. Compensatory Strategies and Precautions to be Taken for Safe Swallow: Sitting Upright (90 deg) Small Bites and Sips Alternate Liquids/Solids Rate of Ingestion Change Supervision While Eating and Drinking for Safe Swallow: Total Assistance (1:1) Foods to Avoid: dry, sticky, hard to chew foods. Swallowing Recommended Treatments: Compens. Strategy Educat. Recommendation for Speech: Inpatient Speech Therapy Comment: Pt seen for dysphagia treatment. RN and PIERCING SPECIALIST consulted, no concerns with pt PO tolerance reported. Pt sitting upright in bed, sipping coffee by cup, holding with both his hands. No overt s/s of aspiration with thin liquids. Pt refused PO when offered by PIERCING SPECIALIST and LOAN REVIEWER. Pt expressed his dissatisfaction with pureed diet. LOAN REVIEWER explained in simple terms that pt could be re-assessed to advance diet, but pt adamantly refused food. LOAN REVIEWER to re-assess when indicated. Bedside swallow evaluation 11/04/24: Pt is edentulous. Pt ROM of lips, tongue, jaw and pharynx WNL. Voice unremarkable. Oropharyngeal coordination WNL for thins/purees, no overt s/s of aspiration across length of evaluation. Continue to recommend PUREE solids and THIN liquids, pending re-assessment for diet advance. Pt tolerating pills whole with liquid per RN. Aspiration precautions and assist in setup/self feeding in place. Frequency/Duration: Daily M-F Date Range for Service Req: Timeline to reassess: Information Systems Specialist Clinican/Clinical Fellow: No Supervisory Statement: I have reviewed and agree with the student/clinical fellow's documentation: N/A Speech Language Pathologist: Jodie Cam M.S., CCC-LOAN REVIEWER
[2024-11-06 19:39] LABS: Glucose, Whole Blood 142 mg/dL (60-115)
[2024-11-07] VITALS (8 sets, daily range): BP systolic 117–136; BP diastolic 54–78; PULSE 59–80; RESP 15–18; TEMP 36–36.6; O2SAT 95–100
[2024-11-07] MEDS: levETIRAcetam in NaCl (iso-os) 1,000 MG/100 ML PIGGYBACK 400 MG IV (06:20)
[2024-11-07 07:30] LABS: Glucose, Whole Blood 89 mg/dL (60-115)
[2024-11-07 07:33] LABS: Anion Gap 11 (12-20); Blood Urea Nitrogen 4 mg/dL (9-16); Calcium 8.4 mg/dL (8.4-10.2); Carbon Dioxide 25 mmol/L (22-29); Chloride 96 mmol/L (96-108); Creatinine Clr Calc Pharmacy 171.4; Estimated Glomerular Filt Rate > 60; Potassium 3.5 mmol/L (3.3-5.1); Sodium 128 mmol/L (135-145)
[2024-11-07] MEDS: Tiotropium Bromide 2.5 mcg 1 PUFF/2.5 MCG MIST.INHAL 2 PUFF INHALE (07:46)
[2024-11-07] MEDS: Furosemide 40 MG/4 ML VIAL IVPUSH (08:38)
[2024-11-07] MEDS: Sodium Chloride Tab 1 GM TABLET 2 GM PO ×3 (08:38→20:05)
--- NOTE | 2024-11-07 10:19 | P.PNNP_ITS ---
Subjective Subjective Date of Service: 11/07/24 Interval history: Pt states he just had a breathing treatment and is breathing comfortably. Otherwise denies new symptoms/concerns. Labs this morning show sodium 128 today, 127 yesterday. Urine sodium increased today since reducing lasix frequency to once daily- now 155, was 101 the day prior. Urine osm is 358, was 257 day prior. Physical Exam 2 Vital Signs: Vital Signs: Last Vital Signs Temp 97.8 F 11/07/24 07:03 Pulse 70 11/07/24 07:46 Resp 16 11/07/24 07:46 BP 132/60 11/07/24 07:03 Pulse Ox 97 11/07/24 07:03 O2 Del Method Room Air 11/07/24 07:03 O2 Flow Rate 2 11/05/24 05:46 Oxygen Flow Rate 2 11/01/24 23:43 BMI result Body Mass Index 28.1 Const: General: no acute distress, alert and awake Resp: Effort & Inspection: normal respiratory effort and able to speak in complete sentences Auscultation: clear to auscultation bilaterally Cardio: Rate: regular rate Rhythm: regular rhythm Heart sounds: S1 normal heart sound present and S2 normal heart sound present GI: Palpation (GI): Firmness to palpation present (GI) and nontender : General: Yes no CVA tenderness Back/Spine/Pelvis: Back: no CVA tenderness Skin: Rashes: no rashes Extrem: General: No edema Objective Data Labs 11/04/24 05:11 11/07/24 06:30 Labs: Laboratory Results - last 24 hr 11/06/24 11/06/24 11/07/24 11:18 19:15 06:30 Hold Purple Top SEE NOTE Sodium 128 L Potassium 3.5 Chloride 96 Carbon Dioxide 25 Anion Gap 11 L BUN 4 L Creatinine 0.47 L Estim Creat Clear Calc 171.4 Estimated GFR > 60 POC Glucose 142 H Random Glucose 86 Calcium 8.4 Urine Osmolality 257 L Ur Random Sodium 101.0 11/07/24 11/07/24 07:14 08:40 Hold Purple Top Sodium Potassium Chloride Carbon Dioxide Anion Gap BUN Creatinine Estim Creat Clear Calc Estimated GFR POC Glucose 89 Random Glucose Calcium Urine Osmolality 358 L Ur Random Sodium 155.0 Microbiology Microbiology Results: Microbiology 11/04/24 22:50 Blood - Venous Blood Culture - Preliminary No growth after 48 hours. 11/04/24 22:49 Blood - Venous Blood Culture - Preliminary No growth after 48 hours. 11/01/24 Unknown Urine clean catch - Clean Catch Midstream Urine Culture - Final No growth. Procedures Date of Service Date of Service: 11/07/24 Assessment & Plan Assessment and plan (1) Hyponatremia: Status: Acute Plan Hyponatremia - stable, slight improvement since yesterday. does have baseline SIADH, developed likely cerebral salt-wasting given high urine sodium, urine osm and high urine output urine output remains high at over 5L in last 24 hours. Urine sodium is increasing, now 155 this a.m., up from 101 yesterday. recommend trial off lasix for tomorrow, continue IVF. If serum sodium is 130 or higher, then may discontinue IVF and see how his serum sodium is the following day; if stable does not need more IVF or diuresis. *ensure close I&O monitoring. continue slat tablets 2gm PO TID Discussed with Dr Meyer. Time Spent With Patient Time: Total time managing care of this patient today ____ minutes. Progress Note: Quality Stroke Does the patient have a stroke diagnosis?: No
[2024-11-07 11:43] LABS: Glucose, Whole Blood 91 mg/dL (60-115)
--- NOTE | 2024-11-07 14:08 | HE.PHANOTE ---
RE: VANCO DOSING Trough came back as 13.4 mg/L and renal function is stable. Dose is increased to 1250 mg q12h, next trough is scheduled for 11/08/24 @1300.
--- NOTE | 2024-11-07 15:29 | P.PNIM_ITS ---
Subjective Subjective Date of Service: 11/07/24 Interval History: No acute events overnight Resting comfortably in bed No SOB or cough; reports breathing much better after inhalers Chronic left hip pain at baseline No other acute medical complaints Review of Systems Review of Systems: Yes all other systems are reviewed and are negative Physical Exam 2 Vital Signs: Vital Signs: Last Vital Signs Temp 97.5 F 11/07/24 15:13 Pulse 69 11/07/24 15:13 Resp 16 11/07/24 15:13 BP 136/78 11/07/24 15:13 Pulse Ox 98 11/07/24 15:13 O2 Del Method Room Air 11/07/24 15:13 O2 Flow Rate 2 11/05/24 05:46 Oxygen Flow Rate 2 11/01/24 23:43 BMI result Body Mass Index 28.1 General: AOx3, no acute distress Resp: CTA bilaterally CVS: S1, S2, RRR GI: +BS, NT, no distention Skin: Warm, dry Neuro: Cranial nerves II-XII grossly intact bilaterally. Motor grossly intact bilaterally Extremities: No edema. Left toes wrapped in clean bandages Psych: Calm, cooperative Objective Data Active Medications Acetaminophen (Acetaminophen 325 Mg Tablet) 650 mg PO Q6H PRN PRN Reason: MILD PAIN OR FEVER >100.0 Last Admin: 11/07/24 10:03 Dose: 650 mg Documented By: ALYCE Albuterol/Ipratropium (Albuterol/Iprat 2.5/0.5mg 3 Ml Ampul.Neb) 3 ml INHALE Q6H PRN PRN Reason: Wheezing Last Admin: 11/06/24 10:02 Dose: 3 ml Documented By: ROSEMARY Apixaban (Apixaban 5 Mg Tablet) 5 mg PO BID [facility] Last Admin: 11/07/24 08:38 Dose: 5 mg Documented By: ALYCE Aspirin (Aspirin 81 Mg Tab.Chew) 81 mg PO DAILY [facility] Last Admin: 11/07/24 08:39 Dose: 81 mg Documented By: ALYCE Atorvastatin Calcium (Atorvastatin Calcium 40 Mg Tablet) 40 mg PO BEDTIME [facility] Last Admin: 11/06/24 21:06 Dose: 40 mg Documented By: THUY Carvedilol (Carvedilol 3.125 Mg Tablet) 3.125 mg PO BID [facility]; Protocol Last Admin: 11/07/24 08:38 Dose: 3.125 mg Documented By: ALYCE Docusate Sodium (Docusate Sodium 100 Mg Capsule) 100 mg PO BID [facility] Last Admin: 11/07/24 08:38 Dose: 100 mg Documented By: ALYCE Guaifenesin (Guaifenesin 200 Mg/10 Ml 10 Ml Liquid) 5 ml PO Q4H PRN PRN Reason: Cough Levetiracetam (Keppra) 1,000 mg in 100 mls @ 400 mls/hr IV Q12H [facility] Last Infusion: 11/07/24 06:49 Dose: Infused Documented By: THUY Sodium Chloride (Ns) 1,000 mls @ 150 mls/hr IVCONT .Q6H40M [facility] Last Admin: 11/07/24 14:32 Dose: 150 mls/hr Documented By: ALYCE Vancomycin HCl 1,250 mg/ (Sodium Chloride) 250 mls @ 166.667 mls/hr IV Q12H [facility] Last Admin: 11/07/24 14:32 Dose: 166.67 mls/hr Documented By: ALYCE Loratadine (Loratadine 10 Mg Tablet) 10 mg PO DAILY PRN PRN Reason: allergies Melatonin (Melatonin 3 Mg Tablet) 6 mg PO BEDTIME [facility] Last Admin: 11/06/24 21:06 Dose: 6 mg Documented By: THUY Meropenem (Meropenem 1 Gm Vial) 1 gm IVPUSH Q12H [facility] Last Admin: 11/07/24 12:03 Dose: 1 gm Documented By: ALYCE Montelukast Sodium (Montelukast Sodium 10 Mg Tablet) 10 mg PO DAILY [facility] Last Admin: 11/07/24 08:39 Dose: 10 mg Documented By: ALYCE Morphine Sulfate (Morphine Sulfate 2 Mg/Ml Cartridge) 2 mg IVPUSH Q4H PRN; Protocol PRN Reason: Pain, Severe (Pain Scale 7-10) Last Admin: 11/04/24 09:26 Dose: 2 mg Documented By: MONIQUE Multivitamins/Vitamin C (Multivitamin Tablet) 1 tab PO DAILY [facility] Last Admin: 11/07/24 08:38 Dose: 1 tab Documented By: ALYCE Non-Formulary Medication (Umeclidinium-Vilanterol [Anoro Ellipta]) 1 inhalation INHALE DAILY [facility] Omeprazole (Omeprazole 20 Mg Capsule.Dr) 20 mg PO DAILY@1630 [facility] Last Admin: 11/07/24 15:17 Dose: 20 mg Documented By: ALYCE Ondansetron HCl (Ondansetron Hcl 4 Mg/2 Ml Vial) 4 mg IVPUSH Q8H PRN PRN Reason: Nausea and Vomiting Last Admin: 11/07/24 15:16 Dose: 4 mg Documented By: ALYCE Pharmacy Consult (Consult Rx Vancomycin Dosing) 1 each MISCELLANE DAILY PRN PRN Reason: Consult order Polyethylene Glycol (Polyethylene Glycol 3350 17 Gm Powd.Pack) 17 gm PO DAILY [facility] Last Admin: 11/07/24 08:39 Dose: 17 gm Documented By: ALYCE Senna (Sennosides 8.6 Mg Tablet) 17.2 mg PO BID [facility] Last Admin: 11/07/24 08:38 Dose: 17.2 mg Documented By: ALYCE Sodium Chloride (Sodium Chloride Tab 1 Gm Tablet) 2 gm PO TID [facility] Last Admin: 11/07/24 14:32 Dose: 2 gm Documented By: ALYCE Tiotropium Melrude (Tiotropium Melrude 2.5 Mcg 1 Puff/2.5 Mcg Mist.Inhal) 2 puff INHALE DAILY [facility] Last Admin: 11/07/24 07:46 Dose: 2 puff Documented By: SERGIO Trazodone HCl (Trazodone Hcl 25 Mg Halftab) 75 mg PO BEDTIME PRN PRN Reason: Sleep Ziprasidone (Ziprasidone 80 Mg Capsule) 80 mg PO BID [facility] Last Admin: 11/07/24 08:38 Dose: 80 mg Documented By: ALYCE Labs 11/04/24 05:11 11/07/24 06:30 Labs: Laboratory Results - last 24 hr 11/06/24 11/07/24 11/07/24 19:15 06:30 07:14 Hold Purple Top SEE NOTE Anion Gap 11 L Estim Creat Clear Calc 171.4 Estimated GFR > 60 POC Glucose 142 H 89 Random Glucose 86 Calcium 8.4 Urine Osmolality Ur Random Sodium Random Vancomycin 11/07/24 11/07/24 11/07/24 08:40 11:22 13:38 Hold Purple Top Anion Gap Estim Creat Clear Calc Estimated GFR POC Glucose 91 Random Glucose Calcium Urine Osmolality 358 L Ur Random Sodium 155.0 Random Vancomycin 13.4 L Microbiology Microbiology Results: Microbiology 11/04/24 22:50 Blood Culture - Preliminary Blood - Venous No growth after 48 hours. 11/04/24 22:49 Blood Culture - Preliminary Blood - Venous No growth after 48 hours. Assessment and Plan (1) Hyponatremia: Status: Acute Plan 69-year-old male who is a resident of a long-term and had been admitted and discharged from this hospital on 10/30/2024 due to transient hypotension, bradycardia which was attributed to aspiration pneumonitis, and a urinary tract infection culture which grew ESBL E coli. Pt was placed on meropenem to be continued until 11/08/2024.?Was admitted to the hospital for possible breakthrough seizure vs syncope. 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 Previously on sodium tablets though those stopped around one month ago while at [facility]; pt does not know the reason Nephrology following and recommending sodium tablets 2 g t.i.d., NS @150 mls/hr, and holding Lasix tomorrow Follow BMP, I/OP monitoring Breakthrough seizure Pt with witnessed seizures x4 in the ED Received 2mg of Ativan, 1.5g of Kepprea, and 1g of Dilanin Initially admitted to ICU for monitoring, transferred to floor on 11/03 No recurrence of seizure Neurology consulted, thought likely secondary to hyponatremia and being on meropenem EEG read pending Continue Keppra; Depakote has been put on hold while on meropenem Seizure precautions Hypokalemia, resolved Potassium 3.0 on 11/06, now 3.5 after supplementation Secondary to diuresing Follow potassium Fever Pt noted to be lethargic and have fever of 102.8 on 11/04 Vancomycin was added to meropenem Repeat blood cultures negative after 48 hours; lactic acid WNL at 1.4 Tylenol for fever Follow blood cultures Hyperkalemia, resolved Potassium noted to be 6.5 on 11/04 Pt was given calcium gluconate, Lokelma, insulin, and albuterol Likely secondary to hemolysis as pt is a difficult stick Monitor on telemetry Left femoral neck AVN S/P cannulated screw fixation of the left femoral neck Question of possible left femoral neck re-injury/fracture on imaging Seen by ortho, thought was AVN not acute fracture Pt wheelchair bound at baseline In the process of preoperative testing for hip surgery at [facility] Pt's HCP would like to see about transferring care to here at [facility] Have contacted Dr Zhang in ortho who will review case and get in touch with HCP about options Pt apparently still needs echo, stress test, and cardiology clearance prior to surgery Pt can be transferred via [facility], per ortho ESBL UTI On two weeks of meropenem, set to end 11/08/2024 Continue meropenem Diet Seen by speech Recommended: Diet, thin liquids, and meds crushed in puree Paroxysmal AFib Continue carvedilol, Eliquis Mood disorder/schizophrenia Depakote on hold Coronary artery disease Aspirin, Eliquis, statin Chronic systolic CHF Coreg Full code Require continued hospitalization for continued hypotnatremia that requires close monitoring and specialist input. Quality Stroke Does the patient have a stroke diagnosis?: No VTE Prior VTE?: No VTE Risk Level:: Medical - moderate - high VTE Device Contraindication: N/A - Device Ordered VTE Drug Contraindication: N/A - Med Ordered
[2024-11-07 16:10] LABS: Glucose, Whole Blood 68 mg/dL (60-115)
--- NOTE | 2024-11-07 16:21 | MHC.SL.SWA ---
Dysphasia Diet Status: Recommend UPGRADE to GROUND solids (NDD2) and THIN liquids. Soft sandwiches OK. Liquid Consistency and Strategies for Safe Swallow: Liquid Intake Recommendation: Thin Liquid Intake Strategies: Solid Food Consistency: Dietary Recommendations: Grnd/Mech Altered (NDD2) Oral Medication Intake: Whole with Puree Please contact the pharmacy regarding appropriate crushable or liquid drug formulations that are available whenever modified delivery is recommended. Compensatory Strategies and Precautions to be Taken for Safe Swallow: Sitting Upright (90 deg) Small Bites and Sips Alternate Liquids/Solids Rate of Ingestion Change Supervision While Eating and Drinking for Safe Swallow: Intermittent Supervision Foods to Avoid: dry, sticky, hard to chew foods. Swallowing Recommended Treatments: Compens. Strategy Educat. Recommendation for Speech: Inpatient Speech Therapy Comment:Recommend UPGRADE to GROUND solids (NDD2) and THIN liquids. Soft sandwiches OK. Pills tolerating pills whole in liquid per RN. Aspiration precautions and assist in setup. Intermittent supervision. Patient reporting he is not interested in trays from the kitchen and wishes to eat only chicken salad sandwiches. Medical Office Representative Clinican/Clinical Fellow: No Supervisory Statement: I have reviewed and agree with the student/clinical fellow's documentation: N/A Speech Language Pathologist: Estefani Jay M.A., CCC-INSIDE TESTER
[2024-11-07 20:29] LABS: Glucose, Whole Blood 117 mg/dL (60-115)
[2024-11-07] MEDS: traZODone HCL 25 MG HALFTAB 75 MG PO (22:37)
[2024-11-08] VITALS (7 sets, daily range): BP systolic 124–144; BP diastolic 58–78; PULSE 63–74; RESP 17–20; TEMP 35.4–36.6; O2SAT 95–100
--- NOTE | 2024-11-08 04:06 | PC.NURSE ---
Pt having low rectal temperature of 95.7. MD Soto notified, advised to continue to monitor temp. Pt covered in heated blankets and bed moved from under air conditioning vent. Temp trending upward at this time. Will continue to monitor.
[2024-11-08 07:30] LABS: Anion Gap 10 (12-20); Blood Urea Nitrogen 6 mg/dL (9-16); Calcium 8.4 mg/dL (8.4-10.2); Carbon Dioxide 24 mmol/L (22-29); Chloride 99 mmol/L (96-108); Creatinine Clr Calc Pharmacy 149.1; Estimated Glomerular Filt Rate > 60; Potassium 3.6 mmol/L (3.3-5.1); Sodium 129 mmol/L (135-145)
[2024-11-08] MEDS: Tiotropium Bromide 2.5 mcg 1 PUFF/2.5 MCG MIST.INHAL 2 PUFF INHALE (07:50)
[2024-11-08 07:59] LABS: Glucose, Whole Blood 82 mg/dL (60-115)
--- NOTE | 2024-11-08 08:54 | P.PNNP_ITS ---
Subjective Subjective Date of Service: 11/08/24 Interval history: following for hyponatremia. acute cerebral salt wasting, chronic siadh. Labs this morning show sodium 129 today, 128 yesterday. Urine sodium down to 73 this a.m. after holding lasix, was 155 yesterday. Pt remains on NS 150ml/hr IVF; urine osm not run in lab, re-ordered and notified RN to padmini collect. pt is agitated this a.m., yelling to be left alone, declines physical exam. Physical Exam 2 Vital Signs: Vital Signs: Last Vital Signs Temp 96.8 F 11/08/24 07:43 Pulse 72 11/08/24 07:51 Resp 17 11/08/24 07:51 BP 139/78 11/08/24 07:43 Pulse Ox 98 11/08/24 07:43 O2 Del Method Room Air 11/08/24 07:43 O2 Flow Rate 2 11/05/24 05:46 Oxygen Flow Rate 2 11/01/24 23:43 BMI result Body Mass Index 28.1 Const: Other: pt yelling to leave room and states he wants to be left alone; declines physical exam. General: no acute distress, alert and awake Resp: Effort & Inspection: normal respiratory effort and able to speak in complete sentences Objective Data Labs 11/04/24 05:11 11/08/24 06:49 Labs: Laboratory Results - last 24 hr 11/07/24 11/07/24 11/07/24 08:40 11:22 13:38 Sodium Potassium Chloride Carbon Dioxide Anion Gap BUN Creatinine Estim Creat Clear Calc Estimated GFR POC Glucose 91 Random Glucose Calcium Urine Osmolality 358 L Ur Random Sodium 155.0 Random Vancomycin 13.4 L 11/07/24 11/07/24 11/08/24 16:05 20:19 06:03 Sodium Potassium Chloride Carbon Dioxide Anion Gap BUN Creatinine Estim Creat Clear Calc Estimated GFR POC Glucose 68 117 H Random Glucose Calcium Urine Osmolality 298 L Ur Random Sodium Random Vancomycin 11/08/24 11/08/24 11/08/24 06:04 06:49 07:48 Sodium 129 L Potassium 3.6 Chloride 99 Carbon Dioxide 24 Anion Gap 10 L BUN 6 L Creatinine 0.54 Estim Creat Clear Calc 149.1 Estimated GFR > 60 POC Glucose 82 Random Glucose 93 Calcium 8.4 Urine Osmolality Ur Random Sodium 73.0 Random Vancomycin Microbiology Microbiology Results: Microbiology 11/04/24 22:50 Blood - Venous Blood Culture - Preliminary No growth after 48 hours. 11/04/24 22:49 Blood - Venous Blood Culture - Preliminary No growth after 48 hours. 11/01/24 Unknown Urine clean catch - Clean Catch Midstream Urine Culture - Final No growth. Procedures Date of Service Date of Service: 11/08/24 Assessment & Plan Assessment and plan (1) Hyponatremia: Status: Acute Plan Hyponatremia - stable, slight improvement since yesterday. 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 Urine sodium improved to 73. will discontinue IVF this a.m. if repeat BMP shows stable sodium, patient is ok for discharge from a renal standpoint- recommend continuing oral salt tablets as outpatient. Discussed with Dr Meyer. Time Spent With Patient Time: Total time managing care of this patient today ____ minutes. Progress Note: Quality Stroke Does the patient have a stroke diagnosis?: No
[2024-11-08] MEDS: Sodium Chloride Tab 1 GM TABLET 2 GM PO ×2 (09:34→15:28)
--- NOTE | 2024-11-08 10:36 | MHC.CM.PN ---
Per ROUNDS discussion, Patient is not yet medically cleared for dc (last day of IV ABX,Lasix,Nephrology following to manage Na); returning to LTC is the goal and CM will continue to follow.
[2024-11-08 11:52] LABS: Glucose, Whole Blood 88 mg/dL (60-115)
[2024-11-08 13:03] LABS: Anion Gap 9 (12-20); Blood Urea Nitrogen 5 mg/dL (9-16); Calcium 8.4 mg/dL (8.4-10.2); Carbon Dioxide 26 mmol/L (22-29); Chloride 98 mmol/L (96-108); Creatinine Clr Calc Pharmacy 161.1; Estimated Glomerular Filt Rate > 60; Potassium 3.6 mmol/L (3.3-5.1); Sodium 129 mmol/L (135-145)
--- NOTE | 2024-11-08 14:45 | P.EN_ITS ---
Event Note Date of Service: 11/08/24 Event Note: Dr Zhang has made several attempts to reach patients family without success -reached out to nurse and obtain records from [facility], multiple faxes have been sent-awaiting records Time Spent With Patient Time: Total time managing care of this patient today ____ minutes.
--- NOTE | 2024-11-08 16:12 | MHC.CM.PN ---
Per PA, Patient is medically cleared for dc to return to LTC today. Patient will return to LTC @ [facility] at 7 PM, via [facility] ([facility] transport auth is [id number]).CM spoke with Niece/TERRIE/Clare @ [phone] and she did not want an IMM mailed to her.
--- NOTE | 2024-11-08 17:14 | PM.DS ---
DS: Providers Provider Date of Service: 11/08/24 Date of admission: 11/01/24 21:11 Date of discharge: 11/08/24 Primary care physician: Aminah Lee MD Consults: 11/02/24 07:00 Consult to Neurology Routine Consulting Provider: [facility] Reason for consultation: new seizures Consult to Orthopedics Routine Consulting Provider: [facility] Reason for consultation: possible femoral neck fracture Has provider been notified: No 11/04/24 07:35 Consult to Nephrology Routine Consulting Provider: [facility] Reason for consultation: Worsening hyponatremia DS: Diagnosis Discharge Diagnosis (1) Hyponatremia: Status: Acute DS: Summary Hospital Course Hospital Course: From admission HPI: Date of Service: 11/01/24 Attending physician on admission: Aneudy Meyer Chief Complaint: Recurrent seizures 69-year-old male who is a resident of a group home and had been admitted and discharged from this hospital on 10/30/2024 due to transient hypotension, bradycardia which was attributed to aspiration pneumonitis, and a urinary tract infection culture which grew ESBL E coli so the patient was placed on meropenem to be continued all the way to 11/08/2024.? Oxycodone had been discontinued as this was thought to be a contributing factor to his aspiration.? Additionally he has underlying history of of SIADH and is on fluid restriction, paroxysmal atrial fibrillation on Eliquis and carvedilol, mood disorder and schizophrenia on Depakote, chronic systolic CHF, COPD, coronary disease status post CABG, TIA, hypertension, hyperlipidemia, constipation, GERD, seasonal allergies, among other things. The patient presented to the emergency room after being found to be short of breath when he had returned from smoking outside of his facility, they thought the patient might have passed out, on arrival the patient was noted to be lethargic but answering simple questions with no specific complaints oriented to self and place; , however during the patient's workup and while awaiting results of his images in the emergency room the patient was witnessed to have a total of 4 tonic-clonic jerking episodes lasting about 30 seconds to a minute each with classic postictal state in between.? The patient had received 2 mg of Ativan, subsequently given 1.5 g of Keppra and 1 g of Dilantin due to the recurrent episodes.? The overall workup shows a white count 5.4, H and H of 10.6 and 30.5, platelets 212.? Sodium 130, potassium 4.3, chloride 91, carbon dioxide 26 BUN 13, creatinine 0.76.? Respiratory panel negative.? Blood glucose 87.? Head CT and CT of the cervical spine were negative for acute intracranial or cervical pathology. ?Left hip x-ray shows post procedural changes of the left femur with lucencies at the femoral neck fracture.? Re-injury considered.? Chest x-ray is negative.? Chest CT angiogram shows small perihilar pulmonary emboli including the left lower lobe.? Mid bibasilar atelectasis/pneumonitis.? Acute nondisplaced fracture or re-injury of the anterior right 4th rib.? The patient is known to be on Eliquis. During my encounter, the patient was nonverbal, unable to follow commands and enough postictal state.? Patient will be admitted to the ICU for further monitoring. Hospital course: Pt was initially admitted to the ICU for monitoring after recurrent and prolonged seizure-like activity and found to have acute on chronic hyponatremia. Pt was eventually stabilized and transferred to the hospital floor but hyponatremia worsened to 122. Pt had no recurrence of seizure activity throughout hospital stay. Neurology was consulted and thought seizure-like activity likely secondary to hyponatremia and being on meropemen. EEG was performed and limited due to restlessness, which showed generalized slowing with no obvious epileptic discharges. Pt was treated with Keppra and home Depakote was held while on meropenem; Keppra has since been stopped and will resume Depakote. For hyponatremia, pt has a long hx of SIADH. Was previously on sodium chloride tablets, though these were stopped around 1 month while at [facility]; neither nor HCP was aware of the reason. 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 Was treated with a combination of with IVF, sodium chloride tablets, and Lasix. Sodium slowly improved back to baseline, along with urine osmolality and sodium. Today sodium held steady at 129. Pt's salt tablets will be resumed, and will be discharged on sodium chloride 2g tablets to be taken 3 times a day. Pt should have repeat labs drawn at the facility and rechecked in the next 3-4 days to monitor sodium levels. Should follow up with nephrology in 1 week. Imaging of left hip concerning for possible left femoral neck re-injury/fracture, though pt seen by ortho and thought was AVN not acute fracture. Pt is wheelchair-bound at baseline and in the process of getting preoperative testing and clearance for surgical repair at [facility]. HCP was interested about possible procedure being done while pt currently hospitalized, but this was unable to be performed due to non acute nature of injury and also need for additional Cardiology clearance. [facility] been consulted, and HCP can pursue possible transfer of care from [facility] on an outpatient basis. Pt previously diagnosed with ESBL UTI. Completed his 2 week course of ertapenem/meropenem while in the hospital, and midline will be pulled prior to discharge. Pt also developed fever of unknown origin while in the hospital. Vancomycin was added to meropenem but eventually stopped after repeat blood cultures were negative after 48 hours. Pt should resume all other home medications upon discharge. Time Attestation Discharge Coordination Time (in mins): 35 Quality: Safe Use of Opioids Does Pt have an Active Cancer Diagnosis on the Problem List?: No Quality: Stroke Does the patient have a stroke diagnosis?: No Physical Exam Exam: Exam: General: AOx3, no acute distress Resp: CTA bilaterally CVS: S1, S2, RRR GI: +BS, NT, no distention Skin: Warm, dry Neuro: Cranial nerves II-XII grossly intact bilaterally. Motor grossly intact bilaterally Extremities: No edema. Left toes wrapped in clean bandages Psych: Calm, cooperative Vital Signs: Vital Signs: Last Vital Signs Temp 97.9 F 11/08/24 15:36 Pulse 74 11/08/24 15:36 Resp 20 11/08/24 15:36 BP 144/62 H 11/08/24 15:36 Pulse Ox 99 11/08/24 15:36 O2 Del Method Room Air 11/08/24 15:36 O2 Flow Rate 2 11/05/24 05:46 Oxygen Flow Rate 2 11/01/24 23:43 BMI result Body Mass Index 28.1 DS: Data Data Completed and Pending Labs on day of discharge: Laboratory Results - last 24 hr 11/07/24 11/08/24 11/08/24 20:19 06:03 06:04 Sodium Potassium Chloride Carbon Dioxide Anion Gap BUN Creatinine Estim Creat Clear Calc Estimated GFR POC Glucose 117 H Random Glucose Calcium Urine Osmolality 298 L Ur Random Sodium 73.0 0711/08/24 11/08/24 06:49 07:48 11:39 Sodium 129 L Potassium 3.6 Chloride 99 Carbon Dioxide 24 Anion Gap 10 L BUN 6 L Creatinine 0.54 Estim Creat Clear Calc 149.1 Estimated GFR > 60 POC Glucose 82 88 Random Glucose 93 Calcium 8.4 Urine Osmolality Ur Random Sodium 11/08/24 12:26 Sodium 129 L Potassium 3.6 Chloride 98 Carbon Dioxide 26 Anion Gap 9 L BUN 5 L Creatinine 0.50 Estim Creat Clear Calc 161.1 Estimated GFR > 60 POC Glucose Random Glucose 85 Calcium 8.4 Urine Osmolality Ur Random Sodium Preliminary micro results at discharge 11/04/24 22:50 Blood Culture - Preliminary Blood - Venous No growth after 48 hours. 11/04/24 22:49 Blood Culture - Preliminary Blood - Venous No growth after 48 hours. Discharge Plan Discharge Anticipated Discharge Date/Time: 11/08/24 19:00 Patient Disposition: er [facility] Discharge Diagnosis: Seizure-like activity in setting of hyponatremia Referrals: [facility] [Outside] - 1 Week Aminah Lee MD [Primary Care Provider, Medical] - 1 Week Jv Zhang MD [Physician, Orthopedics] - 1 Week Discharge Medications: New sodium chloride 1,000 mg tablet,soluble 2,000 mg PO TID Qty: 360 0RF Rx Instructions: Take two tablets daily three times a day for chronic SIADH and cerebral salt-wasting Continued multivitamin Tablet 1 tab PO DAILY Qty: 90 0RF Eliquis 5 mg Tablet 5 mg PO BID Qty: 60 0RF ziprasidone HCl 80 mg capsule 80 mg PO BID sennosides [senna] 8.6 mg Tablet 17.2 mg PO BID trazodone 50 mg tablet 75 mg PO BEDTIME PRN (Reason: sleep) carvedilol 3.125 mg tablet 3.125 mg PO BID Protocol: Hold for SBP/HR < HOLD for SBP < : 90 HOLD for HR < : 60 Rx Instructions: must administer with a meal/food aspirin 81 mg Tablet,Chewable 81 mg PO DAILY atorvastatin [Lipitor] 40 mg tablet 40 mg PO BEDTIME acetaminophen 325 mg tablet 650 mg PO Q6H PRN (Reason: MILD PAIN OR FEVER >100.0) guaifenesin [Daphney-Tussin] 100 mg/5 mL Liquid 100 mg PO Q4H PRN (Reason: Cough) ipratropium-albuterol 0.5 mg-3 mg(2.5 mg base)/3 mL solution for nebulization 3 ml inhalation Q6H PRN (Reason: wheezing) cetirizine [All Day Allergy (cetirizine)] 10 mg tablet 10 mg PO DAILY PRN (Reason: allergies) divalproex 500 mg tablet extended release 24 hr 500 mg PO BID docusate sodium 100 mg tablet 100 mg PO BID Spiriva Respimat 2.5 mcg/actuation mist 2 puff inhalation DAILY melatonin 3 mg tablet 6 mg PO BEDTIME omeprazole 20 mg capsule,delayed release(DR/EC) 20 mg PO DAILY@1630 polyethylene glycol 3350 17 gram/dose powder 17 g PO DAILY montelukast 10 mg tablet 10 mg PO DAILY umeclidinium-vilanterol [Anoro Ellipta] 62.5-25 mcg/actuation blister with device 1 inh inhalation DAILY Qty: 60 6RF Discontinued ertapenem 1 gram recon soln 1 g IV DAILY Qty: 10 0RF Rx Instructions: end 11/08/24 Discharge Orders: Discharge Order (Routine); Ordered 11/08/24 Ordered By: Ashish Andino Activity on Discharge: As tolerated Stand Alone Forms: Patient Portal Discharge page Print Language: Bhutanese Care Plan Goals: See below Health Concerns: Seizures Hyponatremia Left femoral neck AVN ESBL UTI Plan of Treatment: You were admitted to the hospital for seizure-like activity likely multifactorial: In the setting of hyponatremia and antibiotic use. You were seen by Neurology who thought seizure disorder unlikely. You were also seen by Nephrology who believe you have salt wasting syndrome. You will be restarted on sodium chloride tablets. Take 2g 3 times a day. Have repeat labs drawn in 1 week to monitor sodium levels Continue Depakote for mood disorder Keppra has been stopped as EEG negative and Neurology does not think there is a seizure disorder While in the hospital you completed your 2 week course of ertapenem/meropenem. Your midline will be removed prior to discharge You were also evaluated by ortho for left hip lucency concerning for avascular necrosis of left femur Discussed with HCP possible switching Orthopedics from [facility] [place] [facility]: Follow up with Orthopedics outpatient Assessment: See discharge summary Discharge Date/Time: 11/08/24 19:00
--- NOTE | 2024-11-08 17:33 | MHC.SPEECHCO ---
MEDICAL REVIEW SPECIALIST made multiple attempts to see patient today. At first visit, patient was receiving nursing care. When MEDICAL REVIEW SPECIALIST returned this evening, patient refused to participate and became mildly agitated as MEDICAL REVIEW SPECIALIST explained rationale to evaluate for diet advancement, shouting, I will be just fine at home! MEDICAL REVIEW SPECIALIST yesterday 11/07 recommended [facility] altered diet (NDD2), however, please note diet order had not been adjusted, MEDICAL REVIEW SPECIALIST unable to evaluate this date. Recommend continued speech therapy for dysphagia at the next level of care.
== END 2024-11-08 19:00 | DRG 643 ==
LOC: HO.ED 21:12 → HO.EDOVER 21:21 → HO.ICU 22:32 → HO.S3 11-03 12:16 → HO.IMC 11-05 07:47
PROVIDERS: Internal Medicine Critical Care Medicine; Nurse Practitioner Family; Student in an Organized Health Care Education/Training Program; Admitting Provider Physician Assistant Medical; Emergency Provider Emergency Medicine Emergency Medical Services; PCP Internal Medicine; Visit Provider Student in an Organized Health Care Education/Training Program
DX: E22.2 Syndrome of inappropriate secretion of antidiuretic hormone (principal); I26.99 Other pulmonary embolism without acute cor pulmonale; J69.0 Pneumonitis due to inhalation of food and vomit; I50.22 Chronic systolic (congestive) heart failure; N39.0 Urinary tract infection, site not specified; Z16.12 Extended spectrum beta lactamase (ESBL) resistance; M87.052 Idiopathic aseptic necrosis of left femur; R41.82 Altered mental status, unspecified; I25.10 Atherosclerotic heart disease of native coronary artery without angina pectoris; Z20.822 Contact with and (suspected) exposure to COVID-19; Z95.1 Presence of aortocoronary bypass graft; E16.2 Hypoglycemia, unspecified; F20.9 Schizophrenia, unspecified; Z87.440 Personal history of urinary (tract) infections; F17.210 Nicotine dependence, cigarettes, uncomplicated; B96.20 Unspecified Escherichia coli [E. coli] as the cause of diseases classified elsewhere; I48.0 Paroxysmal atrial fibrillation; Z71.6 Tobacco abuse counseling; D64.9 Anemia, unspecified; Z99.3 Dependence on wheelchair; R56.9 Unspecified convulsions; E87.6 Hypokalemia; E87.5 Hyperkalemia; J44.9 Chronic obstructive pulmonary disease, unspecified; Z79.01 Long term (current) use of anticoagulants; Z79.82 Long term (current) use of aspirin; Z79.899 Other long term (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
CPT/HCPCS: 36415; 70450; 71045; 71275; 72125; 72170; 73502; 80048; 80053; 80076; 80164; 80202; 81001; 82140; 82803; 82947; 83605; 83690; 83735; 83880; 83935; 84100; 84146; 84300; 84484; 85025; 85610; 85730; 87040; 87086; 87637; 92526; 92610; 93005; 95816; 99285; J0131; J0613; J1165; J1644; J1650; J1938; J1953; J2060; J2185; J2270; J2405; J2470; J3373; J3374; J7120; P9047; Q9967

== ENCOUNTER → 2024-11-01 18:02 | Outpatient (BNV) | payer OTHER, SELFPAY | PROVIDERS: Emergency Provider Emergency Medicine Emergency Medical Services; Visit Provider Radiology Neuroradiology | DX: J98.11 Atelectasis (principal); M48.02 Spinal stenosis, cervical region; G31.9 Degenerative disease of nervous system, unspecified; R07.9 Chest pain, unspecified; M16.0 Bilateral primary osteoarthritis of hip | CPT/HCPCS: 70450; 71045; 71275; 72125; 72170 ==

== ENCOUNTER → 2024-11-01 18:02 | Outpatient (BNV) | payer OTHER, SELFPAY | PROVIDERS: Admitting Provider Physician Assistant Medical; Emergency Provider Emergency Medicine Emergency Medical Services; Visit Provider Internal Medicine Cardiovascular Disease | DX: I44.0 Atrioventricular block, first degree (principal) | CPT/HCPCS: 93010 ==

== ENCOUNTER 2024-11-01 21:11 | Outpatient (BNV) | payer OTHER, SELFPAY | END 2024-11-02 09:00 | PROVIDERS: Admitting Provider Physician Assistant Medical; Emergency Provider Emergency Medicine Emergency Medical Services; Visit Provider Radiology Diagnostic Radiology | DX: R90.82 White matter disease, unspecified (principal); S72.002K Fracture of unspecified part of neck of left femur, subsequent encounter for closed fracture with nonunion | CPT/HCPCS: 70450; 73502 ==

== ENCOUNTER → 2024-11-01 21:11 | Outpatient (BNV) | payer OTHER, SELFPAY | PROVIDERS: Admitting Provider Physician Assistant Medical; Emergency Provider Emergency Medicine Emergency Medical Services; Visit Provider Internal Medicine Critical Care Medicine | DX: F39 Unspecified mood [affective] disorder (principal); F29 Unspecified psychosis not due to a substance or known physiological condition; F20.9 Schizophrenia, unspecified; R56.9 Unspecified convulsions; G93.40 Encephalopathy, unspecified; J44.9 Chronic obstructive pulmonary disease, unspecified | CPT/HCPCS: 99233; 99291; 99292 ==

== ENCOUNTER → 2024-11-01 21:11 | Outpatient (BNV) | payer OTHER, SELFPAY | PROVIDERS: Admitting Provider Physician Assistant Medical; Emergency Provider Emergency Medicine Emergency Medical Services; PCP Internal Medicine; Visit Provider Nurse Practitioner Family | DX: E87.1 Hypo-osmolality and hyponatremia (principal) | CPT/HCPCS: 99222; 99232 ==

== ENCOUNTER → 2024-11-01 21:11 | Outpatient (BNV) | payer OTHER, SELFPAY | PROVIDERS: Admitting Provider Physician Assistant Medical; Emergency Provider Emergency Medicine Emergency Medical Services; PCP Internal Medicine; Visit Provider Psychiatry & Neurology Neurology | DX: R56.9 Unspecified convulsions (principal) | CPT/HCPCS: 99222 ==

== ENCOUNTER → 2024-11-01 21:11 | Outpatient (BNV) | payer OTHER, SELFPAY | PROVIDERS: Admitting Provider Physician Assistant Medical; Emergency Provider Emergency Medicine Emergency Medical Services; PCP Internal Medicine; Visit Provider Psychiatry & Neurology Neurology | DX: R94.01 Abnormal electroencephalogram [EEG] (principal) | CPT/HCPCS: 95816 ==

== ENCOUNTER → 2024-11-01 21:11 | Outpatient (BNV) | payer OTHER, SELFPAY | PROVIDERS: Admitting Provider Physician Assistant Medical; Emergency Provider Emergency Medicine Emergency Medical Services | DX: M87.052 Idiopathic aseptic necrosis of left femur (principal); Z98.890 Other specified postprocedural states | CPT/HCPCS: 99232; 99499 ==

== ENCOUNTER → 2024-11-01 21:11 | Outpatient (BNV) | payer OTHER, SELFPAY | PROVIDERS: Admitting Provider Physician Assistant Medical; Emergency Provider Emergency Medicine Emergency Medical Services; Visit Provider Student in an Organized Health Care Education/Training Program | DX: E87.1 Hypo-osmolality and hyponatremia (principal) | CPT/HCPCS: 99232; 99239; 99499 ==

== ENCOUNTER 2024-11-15 14:37 | Inpatient (IN) | payer OTHER, SELFPAY ==
--- NOTE | ~2024-11-15 | XR_ITS ---
EXAMINATION: XR CHEST CLINICAL INFORMATION: weakness COMPARISON: 11/01/2024, 10/26/2024. TECHNIQUE: Frontal view of the chest was obtained. FINDINGS: Prior median sternotomy. The cardiac, hilar, and mediastinal contours are normal. Aorta is uncoiled and tortuous. Volume loss in the right lung with similar regions of chronic scarring. Diffuse prominence of the background interstitial markings both lungs. Peribronchial thickening present in the right lung. Left lung appears clear. No pneumothorax or effusion. No focal osseous or soft tissue abnormality. XR/XR chest 1V IMPRESSION: 1. Stable volume loss right lung with associated scarring and peribronchial thickening. 2. Similar prominence of the background interstitial markings both lungs, likely representing a combination of emphysema and chronic lung disease. Electronically signed by: Gregory Gonzalez MD 11/15/2024 03:50 PM EDT
[2024-11-15 14:47] VITALS: BP 136/72; BP 143/80; PULSE 68; RESP 20; TEMP 36.4; O2SAT 98; BMI 28.9
--- NOTE | 2024-11-15 14:57 | ECG_ITS ---
Test Reason : WEAKNESS Blood Pressure : */* mmHG Vent. Rate : 68 BPM Atrial Rate : 68 BPM P-R Int : 264 ms QRS Dur : 136 ms QT Int : 440 ms P-R-T Axes : 88 49 33 degrees QTcB Int : 467 ms Sinus rhythm with 1st degree A-V block with occasional Premature ventricular complexes Non-specific intra-ventricular conduction block Possible Inferior infarct (cited on or before 01-Nov-2024) Abnormal ECG When compared with ECG of 01-Nov-2024 18:06, Premature ventricular complexes are now Present Referred By: Generic ED Physician Electronically Signed By: Rodrick Edwards
[2024-11-15 14:58] VITALS: BP 136/72; PULSE 68; RESP 20; TEMP 36.4; O2SAT 98
[2024-11-15 15:35] LABS: MANUAL DIFF FLAG NO
[2024-11-15 15:37] LABS: Hematocrit 29.5 % (42.0-52.0); Hemoglobin 10.7 g/dl (14.0-18.0); Imm Gran Abs Auto 0.01 X10*3/uL (0.00-0.03); Imm Gran Pct Auto 0.2 % (0.0-0.4); Lymphocytes Absolute Auto 1.3 X10*3/uL (1.2-4.9); Mean Corpuscular HGB Conc 36.3 g/dl (31.0-36.0); Mean Corpuscular Hemoglobin 29.3 pg (27.0-33.0); Mean Corpuscular Volume 80.8 fL (80.0-98.0); NRBC Abs Auto 0.000 X10*3/uL (0.0-0.012); NRBC Pct Auto 0.0 /100WBC (0.0-0.2); Platelet Count 182 X10*3/uL (160-400); Red Blood Count 3.65 X10*6/uL (4.60-5.80); White Blood Count 4.2 X10*3/uL (4.8-10.8)
[2024-11-15 15:52] LABS: Alanine Aminotransferase 10 U/L (0-40); Albumin Level 3.7 g/dL (3.5-5.0); Alkaline Phosphatase 81 U/L (39-117); Anion Gap 12 (12-20); Aspartate Amino Transferase 32 U/L (5-37); Blood Urea Nitrogen 8 mg/dL (9-16); Calcium 8.7 mg/dL (8.4-10.2); Carbon Dioxide 22 mmol/L (22-29); Chloride 91 mmol/L (96-108); Creatinine Clr Calc Pharmacy 143.2; Estimated Glomerular Filt Rate > 60; Potassium 4.1 mmol/L (3.3-5.1); Sodium 121 mmol/L (135-145); Total Protein 6.6 g/dL (6.5-8.0)
[2024-11-15 15:58] LABS: B Type Natriuretic Peptide 153 pg/mL (<100)
[2024-11-15 15:59] LABS: Troponin-I High Sensitivity 2.9 ng/L (<3.5-35.0)
--- NOTE | 2024-11-15 16:00 | PC.NURSE ---
69 M presents to ED with low sodium from sending rehab facility where he has been recovering for around 6 month from a left hip fracture. Pt c/o feeling generally unwell and having nausea. Pt sts he gets naseous from all his medications at the facility. Pt sts he has been unable to walk since the hip injury. A+OX4, calm, cooperative. Pt denies any SOB or CP. RR even and unlabored.
[2024-11-15 16:01] VITALS: BP 141/73; PULSE 67; RESP 18; TEMP 36.4; O2SAT 99
--- OUTSIDE RECORDS SUMMARY | 2024-11-15 16:01 | XMS_ITS | Encounter Summary ---
Author Organization [facility] Address [address] [place] [address] Care Team Providers Care Thread Grinder Tool Name Role Phone Geena Lee MD Primary Care Provider + Encounter Details Date Type Department Care Team (Late st Contact Info) Description 04/16/2024 Lab Requisition [facility] Lab [address] [place] [address] Geena Lee MD [address] [phone] Hyperlipidemia, unspecified; Essential (primary) hypertension Social History [...] LAB CHEMISTRY METHOD 04/18/2024 12:51 PM EST [facility] Potassium 4.0 3.5 - 5.5 mmol/L LAB CHEMISTRY METHOD 04/18/2024 12:51 PM [facility] Chloride 97 96 - 110 mmol/L LAB CHEMISTRY METHOD 04/18/2024 12:51 PM [facility] CO2 29 21 - 32 mmol/L LAB CHEMISTRY METHOD 04/18/2024 12:51 PM [facility] Anion Gap 6 3 - 11 LAB CHEMISTRY METHOD 04/18/2024 12:51 PM [facility] Glucose 87 70 - 100 mg/dL LAB CHEMISTRY METHOD 04/18/2024 12:51 PM [facility] BUN 15 5 - 25 mg/dL LAB CHEMISTRY METHOD 04/18/2024 12:51 PM [facility] Creatinine 0.84 0.70 - 1.30 mg/dL LAB CHEMISTRY METHOD 04/18/2024 12:51 PM [facility] eGFR 95 >=60 mL/min/1. 73m2 LAB CHEMISTRY METHOD 04/18/2024 12:51 PM [facility] Comment:Calculation based on the Chronic Kidney Disease Epidemiology Collaboration (CKD-EPI) equation refit without adjustment for race. BUN/Creatinine Ratio 17.9 LAB CHEMISTRY METHOD 04/18/2024 12:51 PM [facility] Calcium 8.9 8.5 - 10.5 mg/dL LAB CHEMISTRY METHOD 04/18/2024 12:51 PM [facility] Blood Venous blood specimen / Unknown 04/18/2024 8:22 AM EST 04/18/2024 11:52 AM EST us Geena Lee MD LAB BLOOD ORDERABLES Fin al Result [facility] [address] [place] [address], documented in this encounter Visit Diagnoses Diagnosis Hyperlipidemia, unspecified Essential (primary) hypertension Unspecified essential hypertension documented in this encounter Care Teams Thread Grinder Tool Relationship Specialty Start Date End Date Geena Lee MD [address] [id number] PCP - General Family Medicine 03/20/24 documented as of this encounter
--- OUTSIDE RECORDS SUMMARY | 2024-11-15 16:01 | XMS_ITS | Data Portability ---
Author Organization [employer], [facility] Address [address] [place] [address] Care Team Providers Care Technology Architect Name Role Phone HIM CCA OTHER Assessment Encounter Date Assessment Date Assessment LastModified by Organization Details LastModified Time 07/02/2023 07/02/2023 I provided real -time medical direction via phone for this encounter, and was available for additional phone based assistance as needed. I have reviewed and agree with the Assessment and Plan as documented by the Chief Service Dispatcher. We discussed the diagnostic uncertainty of home [...] verbalized understanding of instructions to the medic [email or web address] Not available 07/02/2023 12:20:06 02/21/2024 02/21/2024 As noted, starr lam called to see this patient regarding concerns of liudmila. Evaluation in the field was performed by my publishing specialist colleague, as noted above, I provided real-time [...] plasma 2023 024 SARI [facility], [address] [place] [address], [phone] 13:48:55 BMP, serum or plasma 2023 024 [email or web address] 0 [facility] - [facility], [address] [place] [address], [id number] 4 12:24:32 Referral None recorded. Procedures None recorded. Surgeries None recorded. Imaging None recorded. Medication Orders furosemide 40 mg tablet 2023 024 [email or web address] [id number], [address] [place], [address], 4 13:34:40 ipratropium 0.5 mg-albutero l 3 mg (2.5 mg base)/3 mL nebulizatio n soln 2023 024 [email or web address] 0 [id number], [address] [place], [address], 4 12:24:32 Lasix 20 mg tablet 2023 024 [email or web address] [id number], [address] [place], [address], 4 12:24:32 Patient TargetsNo targets recorded. Patient InstructionsNo instructions recorded. Reason for Referral None Reported. Results Created Date Observation Date Name Description Value Unit Range Abnormal Flag Note LastModifiedBy Organization Detail LastModifiedTime 07/02/19 24 07/02/2023 BMP, serum or plasm a BUN 17 Not Available Main - [facility] jose [address] [place] [address], [address] [place] [address] 07/02/2023 11:10:42 07/02/19 24 07/02/2023 BMP, serum or plasm a Ca Ionize d calcdemetriau m 1.1 Not Available Main - [address], [address] [place] [address] 07/02/2023 11:10:42 07/02/19 24 07/02/2023 BMP, serum or plasm a CI- 9 7 Not Available Main - Ins [address], [address] [place] [address] 07/02/2023 11:10:42 07/02/19 24 07/02/2023 BMP, serum or plasm a CRE 1 Not Available Main - Ins [address], [address] [place] [address] 07/02/2023 11:10:42 07/02/19 24 07/02/2023 BMP, serum or plasm a GLU 91 Not Available [facility] - Ins [address], [address] [place] [address] 07/02/2023 11:10:42 07/02/19 24 07/02/2023 BMP, serum or plasm a K+ 4.1 Not Available Main - Ins [address], [address] [place] [address] 07/02/2023 11:10:42 07/02/19 24 07/02/2023 BMP, serum or plasm a Na+ 133 Not Available [facility] - Ins [address], [address] [place] [address] 07/02/2023 11:10:42 07/02/19 24 07/02/2023 BMP, serum or plasm a tCO2 24 Not Available [facility] - Ins [address], [address] [place] [address] 07/02/2023 11:10:42 Result Notes None recorded. Medical [...] Updated DateTime 07/02/2023 180.34 cm 30.1 kg/m2 77497.23 g Silvina Gramajo MD [address] [facility],[address] [facility], [place], [address], [place] - [employer] 07/02/2023 11:27:09 Date Recorded Body temperature Heart rate Oxygen saturation Oxygen saturation in Arterial blood by Pulse oximetry Respiratory rate Systolic And Diastolic Provider Name and Address Organization Details Last Updated DateTime 4 98 [degF] 86 /min 98 % 98 % 20 /min 130/80 mm[Hg] Not Available [employer] - [employer] 4 11:04:34 Date Recorded Oxygen saturation Oxygen saturation in Arterial blood by Pulse oximetry Heart rate Body temperature Respiratory rate Body height Body weight Systolic And Diastolic Provider Name and Address Organization Details Last Updated DateTime 4 94 % 94 % 82 /min 97.3 [degF] 16 /min 177.8 cm 915624. 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 4 10:22:55 Date Recorded Body temperature Heart rate Oxygen saturation Oxygen saturation in Arterial blood by Pulse oximetry Respiratory rate Systolic And Diastolic Provider Name and Address Organization Details Last Updated DateTime 4 98.3 [degF] 65 /min 95 % 95 % 20 /min 116/64 mm[Hg] Not Available [facility] 4 14:20:47 Date Recorded Oxygen saturation Oxygen saturation in Arterial blood by Pulse oximetry Body height Heart rate Body weight Respiratory rate Body temperature Systolic And Diastolic Provider Name and Address Organization Details Last Updated DateTime 4 92 % 92 % 180.34 cm 80 /min 48820.7 68 g 16 /min 97.2 [degF] 152/89 mm[Hg] Not Available [facility] 4 21:45:16 Date Recorded Respiratory rate Body temperature Body weight Oxygen saturation Oxygen saturation in Arterial blood by Pulse oximetry Body height Heart rate Systolic And Diastolic Provider Name and Address Organization Details Last Updated DateTime 4 14 /min 98.4 [degF] 43763.6 g 99 % 99 % 185.42 cm 80 /min 151/85 mm[Hg] Not Available [facility] 4 20:58:10 Social History None recorded. Functional Status None recorded. Mental Status None recorded. Family History Nothing Reported. Medical History No medical history recorded. Past Encounters Encounter ID Performer Location Encounter Start Date Encounter Closed Date Diagnosis/Indication Diagnosis SNOMED-CT Code Diagnosis ICD10 Code Diagnosis Note [id number] Zoltan Roque MD [facility] - [facility] [address] [place] [phone] 04/02/2022 19:41:20 04/04/2022 11:55:01 Swelling of lower jaw region 972523872 R22.0 This was a challengin g case for [facility] assessment . 66yo man presents with 2 [...] he will call or present to ED. [id number] Lev Butts MD [facility] - [address] [phone] 10/21/2022 14:55:12 10/22/2022 10:13:01 Chronic obstructive pulmonary disease 76080769 J44.9 This 67-year-ol d male with COPD called [facility] wondering if he needs more steroids. He recently completed a course of oral steroids. I recommende d that hs continue with his current treatments and follow-up with his PCP. The patient agreed with this plan. [id number] Elba Avila MD [facility] - [address] [phone] 04/22/2023 16:01:46 04/25/2023 12:18:54 Chronic obstructive pulmonary disease 95417871 J44.9 Evaluation in the field was performed by my publishing specialist colleague, as noted above, I provided real-time direction and supervisio n for this visit. 67yo M PMHx COPD, CHF, HTN p/w ongoing cough after recent RSV PNA. No ongoing fevers. On publishing specialist assessment VS notable for sat 94% RA, [...] shortness of breath, cough, chest pain, fever. [id number] Silvina Gramajo MD [facility] [address] [place] [phone] 05/07/2023 19:03:29 05/08/2023 17:40:31 Dyspnea 237645224 R06.00 Status post DuoNeb wheezing cleared patient [...] with his PCP note sent to daycare director via [facility] [id number] Silvina Gramajo MD Main - [facility] [phone] 07/02/2023 11:04:28 07/02/2023 16:34:14 Dyspnea 647341976 R06.00 Status post DuoNeb wheezing unchanged- more [...] morning note sent to CP via [facility] [id number] Robin Cristina MD [facility] [address] [place] [phone] 07/29/2023 10:22:53 07/31/2023 13:08:55 Dyspnea 224250644 R06.00 Mild swelling and slight volume overload. Has been taking Lasix 20mg PO PRN. Took 20mg PO this AM. Given weight is increased, will give additional 40mg PO x1 now. Advised to call back if weight increasing despite 20mg PO Lasix. BMP wnl. Discussed red flag signs for which to seek higher level of care. [id number] Lev Butts MD [facility] [address] [place] [phone] 09/07/2023 14:20:45 09/07/2023 22:09:07 Hyponatremia 52183176 E87.1 This 68-year-ol d male has a history of hyponatrem ia and he is taking oral sodium chloride. Today his sodium is 128. I recommende d he continue his current medication s and follow-up with his PCP. The patient's caregivers agreed with this plan. [id number] Lev uBtts MD [facility] [address] [place] [phone] 10/19/2023 21:45:06 10/20/2023 17:24:34 Hyponatremia 45411331 E87.1 This 68-year-ol d male has a history of hyponatrem ia and he is taking oral sodium chloride. His sodium has dropped from yesterday. I ordered normal saline one liter IV. He should have have repeat lab in one to two days. The patient agreed with this plan. [id number] Chiqui Mcneil MD [facility] [address] [place] [phone] 02/21/2024 20:58:08 02/22/2024 11:47:02 Chronic hyponatremia 48526261 E87.1 Health Concerns Section Related Observation LastModified by Organization Detai ls LastModified Time None Recorded Concern Status LastModified by Organization Details LastModified Time None Recorded Advance Directives Directive None Recorded Payers Insurance Date Sequence Insurance Name Policy Number Policy Myers Covered Member ID Myers Member ID Guarantor Name 10/21/2022 1 [facility] DOS PRIOR TO 2022 - DUAL ELIGIBLE (MEDICARE REPLACEMENT/ADV ANTAGE - HMO) Alberto Manuelovan [id number] Alberto Levi 02/22/2024 1 [facility] - DOS ON OR AFTER 2022 - DUAL ELIGIBLE - NURSING HOME OPTIONS AND ONE CARE (MEDICARE REPLACEMENT/ADV ANTAGE - HMO) Alberto Levi [id number] Alberto E Gurmeet Notes Date Note Type Note Provider Name and Address Organization Details Recorded Time 07/02/2023 text/html ROS as noted in the HPI [facility] Nurse Triage Notes (Uma Yusfu): Chief Complaints: CHF, Shortness of Breath/Dyspnea PMH: [...] .................... .................... .................... .................... .................... .................... ......... Chief Service Dispatcher Note From Rosenda Nicole: Community Chief Service Dispatcher Azael Nicole Sc6 dispatched to a [facility] for a 67 yom C/O SOB. Upon arrival, the pt was ambulatory w/ slight tachypnea, but no dyspnea. Skin warm pink and dry, in no obvious distress. He reported that he had COPD and CHF, and that he had been using his nebulizer a lot w/ little effect. His neice/journalism teacher that lived in the home with him [...] pt reported no change in respiratory status. [facility] consulted; pt was given 40 mg PO [...] . Disposition: Fulfilled Silvina Gramajo MD [address] [facility],[address], [place], [address], [employer] 07/02/2023 15:04:42 07/29/2023 text/html ROS as noted in the HPI HPI: [facility] care [facility] nurse Nasrin called stating mbr is experiencing SOB hx of CHF/copd, patient received prn Lasix, with LE trace edema, refusing ED requesting [facility] visit. denies any CP/N/V able to speak in full sentences. Protocol Used: Leg Swelling and Edema Protocol-Based Disposition: Consider instED, MEDICAL EQUIPMENT REPAIRER, MD/ESL INSTRUCTOR triage, PCP, or ED /Urgent Care Visit [...] .................... .................... .................... .................... .................... .................... . Chief Service Dispatcher Note From Ross Zavala: Pt with hx [...] .................... . Disposition: Fulfilled Robin Cristina MD [address] [place] [address],[address], [place], [phone], [facility] - [employer] 07/29/2023 13:35:00 09/07/2023 text/html ROS as noted in the HPI HPI: 67 male with HFrEF (30-35%), COPD, schizophrenia, p-Afib, admitted 08/10-08/21 to [facility] for AMS changes found to be [...] No further information needed to process visit. Chief Service Dispatcher POC Test Results from [facility] iSTAT Chem8+ (1) [14:34] Na: 128 mEq/L K: 3.6 mEq/L Cl: 90 mEq/L iCa: 1.23 mmol/L TCO2: 26 mmol/L Glu: 109 mg/dL BUN: 10 mg/dL Crea: 0.8 mg/dL Hct: 38 % Hb: 12.9 g/dL A Attachments uploaded as part of this test result can be found under Documents section. Lev Butts MD [address] [place] [address],[address] [facility], [place], [address], [employer] 09/07/2023 14:39:20 10/19/2023 text/html ROS as noted in the HPI [facility] Nurse Triage Notes (Uma uYsuf): Reason For Request: Patient is Altered Mental status, and Liudmila Chief Complaints: Altered Mental Status PMH: CHF, COPD/Asthma, Hypertension Allergies: Unknown Comments: Visiting nurse calling to request visit for AMS and shaking that started today. History of same symptoms is the past with low Na+ level. Lev Butts MD [address] [place] [address],[address] [facility], [place], [address], [employer] 10/19/2023 21:48:57 02/21/2024 text/html [facility] Nurse Triage Notes (Kassy Schneider): Reason For Request: NA Chief Complaints: Altered mental status PMH: Congestive Heart Failure, COPD/Asthma, Hypertension Comments: [employer] verified the member's name//address and phone number. [...] s/s and seek emergency treatment if needed Chief Service Dispatcher Organization Information for [employer] Legal Name: [facility] Transportation Address: [address] [place] [address], [place] [address], Manager Contract: Maco Whiting MD CLIA No.: [id number] Chief Service Dispatcher POC Test Results from [employer] [facility] (20:19:10) pH: 7.380 pH units pCO2: 46.0 mmHg pO2: 27.1 mmHg Na: 133 mmol/L K: 3.8 mmol/L iCa: 1.17 mmol/L Cl: 97 mmol/L TCO2: 27.3 mEq/L Hct: 41 % Hb: 14.1 g/dL Glu: 97 mg/dL Lac: 1.70 mmol/L Cr: 070 mg/dL BUN: 16 mg/dL A .................... .................... .................... .................... .................... .................... .................... . Chief Service Dispatcher Note From Inocente Alford: Patient conscious and [...] sounds clear negative edema. Epoc values to [facility] suggests return visit for additional NA levels. Caregiver demonstrates understanding of care and plan. .................... .................... .................... .................... .................... .................... .................... . [facility] Consulted: Chiqui Mcneil .................... .................... .................... .................... .................... .................... .................... . Disposition: Charlie Mcneil MD [address] [facility],[address], [place], [address], [employer] 02/21/2024 22:44:20
--- OUTSIDE RECORDS SUMMARY | 2024-11-15 16:01 | XMS_ITS | Clinical Summary ---
Author Organization [facility] Address [address] [facility] [address] [place] [address] Phone Care Team Providers Care Illuminator Name Role Phone Unavailable Primary Care Provider [...]
--- NOTE | 2024-11-15 16:43 | ED.WEAKNESS ---
HPI - Weakness General Chief complaint: Weakness Stated complaint: ABNORMAL LABS,NAUSEA,DIZZINESS PER EMS Time Seen by Provider: 11/15/24 16:35 Source: EMS and RN notes reviewed Mode of arrival: EMS Limitations: no limitations History of Present Illness ED Provider: HPI Narrative: Patient is 69 years old with history of COPD, CHF, AFib some SIADH, CAD, CABG, schizophrenia, [facility] for low sodium of 121 staff noticed patient is slightly off with some nausea, patient has been here multiple times last discharge was on 11/08 with sodium of 124 today the lab work done at jail showed sodium of 121 no seizure activity patient at his baseline mentation patient's diagnose with chronic SIADH with salt and water wasting in urine patient is treated with IV fluids and IV Lasix during last admission Related Data Home Medications ?Medication ?Instructions ?Recorded ?Confirmed cetirizine 10 mg tablet (All Day 10 mg PO DAILY PRN allergies 09/30/24 11/15/24 Allergy (cetirizine)) divalproex 500 mg tablet,extended 500 mg PO BID 09/30/24 11/15/24 release 24 hr docusate sodium 100 mg tablet 100 mg PO BID 09/30/24 11/15/24 melatonin 3 mg tablet 6 mg PO BEDTIME PRN Sleep 09/30/24 11/15/24 montelukast 10 mg tablet 10 mg PO DAILY 09/30/24 11/15/24 omeprazole 20 mg capsule,delayed 20 mg PO DAILY@1630 09/30/24 11/15/24 release polyethylene glycol 3350 17 17 g PO DAILY PRN Constipation 09/30/24 11/15/24 gram/dose oral powder tiotropium bromide 2.5 2 puff inhalation DAILY 09/30/24 11/15/24 mcg/actuation mist for inhalation (Spiriva Respimat) sennosides 8.6 mg tablet (senna) 17.2 mg PO BID 10/26/24 11/15/24 ziprasidone HCl 80 mg capsule 80 mg PO BID 10/26/24 11/15/24 acetaminophen 325 mg tablet 650 mg PO Q6H PRN MILD PAIN OR 11/02/24 11/15/24 FEVER >100.0 aspirin 81 mg chewable tablet 81 mg PO DAILY 11/02/24 11/15/24 atorvastatin 40 mg tablet (Lipitor) 40 mg PO BEDTIME 11/02/24 11/15/24 carvedilol 3.125 mg tablet 3.125 mg PO BID 11/02/24 11/15/24 guaifenesin 100 mg/5 mL oral 100 mg PO Q4H PRN Cough 11/02/24 11/15/24 liquid (Daphney-Tussin) ipratropium 0.5 mg-albuterol 3 mg 3 ml inhalation Q6H PRN wheezing 11/02/24 11/15/24 (2.5 mg base)/3 mL nebulization soln bisacodyl 10 mg rectal suppository 10 mg GA DAILY PRN Constipation 11/15/24 11/15/24 magnesium hydroxide 400 mg/5 mL 30 ml PO DAILY PRN Constipation 11/15/24 11/15/24 oral suspension (Milk of Magnesia) sodium phosphates 19 gram-7 118 ml GA DAILY PRN Constipation 11/15/24 11/15/24 gram/118 mL enema (Fleet Enema) trazodone 150 mg tablet 75 mg PO BEDTIME 11/15/24 11/15/24 Previous Rx's ?Medication ?Instructions ?Recorded apixaban 5 mg tablet (Eliquis) 5 mg PO BID #60 tabs 02/14/23 multivitamin 1 tab PO DAILY #90 tabs 04/05/23 umeclidinium 62.5 mcg-vilanterol 1 inh inhalation DAILY #60 ea 09/27/24 25 mcg/actuation powdr for inhalation (Anoro Ellipta) sodium chloride 1,000 mg soluble 2,000 mg (2 x 1,000 mg) PO TID 11/08/24 tablet #360 tabs Allergies Allergy/AdvReac Type Severity Reaction Status Date / Time No Known Allergies Allergy Verified 11/15/24 14:54 Review of Systems Review of Systems: Yes Unobtainable due to mental condition [facility] Past Medical History Medical History Atrial flutter Ischemic cardiomyopathy Former smoker SIADH (syndrome of inappropriate ADH production) Paroxysmal atrial fibrillation Mood disorder Heart failure COPD (chronic obstructive pulmonary disease) Hypertension Hyperlipidemia TIA (transient ischemic attack) Encounter to establish care Surgical History S/P CABG x 3 Social History Social History Household Members: Other Household Members Other:: Niece and her daughter Housing: House Do you presently have visiting nurse or other home services: No Unable to assess alcohol history related to: Unknown Alcohol intake: former Patient Tobacco Use Status: Tobacco use Unknown Tobacco use type: Cigarette Cigarette Packs Per Day: 1 Cigarettes Per Day: 20 Years Smoked: 53 years Smoked in Last 30 Days: No e-Cigarette/Vaping Use: Never Used Second Hand Smoke Exposure: No Use of substances other than those prescribed or required for medical reasons: No Substance Use Type: Crack/Cocaine and Marijuana Advance Directives: Yes Advance Directives on File: Yes Advance Directives Date on File: 02/17/23 Do you have a plan to hurt others: No Plan service: No Current occupational status: retired Sexual orientation: Straight/Heterosexual Cognitive needs: Yes Hearing needs: No Vision needs: Yes (Glasses) Physical Exam Vital Signs: Vital Signs: Last Vital Signs Temp 97.4 F 11/15/24 23:05 Pulse 67 11/15/24 23:05 Resp 20 11/15/24 23:05 BP 107/62 11/15/24 23:05 Pulse Ox 96 11/15/24 23:05 O2 Del Method Room Air 11/15/24 23:05 BMI result Body Mass Index 28.9 Appearance: Alert. Oriented X2-3. No acute distress. Eyes: PERRLA, No Nystagmus ENT: Pharynx normal. Oral Mucosa moist Neck: Normal inspection. Neck supple. CVS: Normal heart rate and rhythm. Pulses normal. Respiratory: No respiratory distress. Equal air entry bilateral, no wheezing/rales/rhonchi Abdomen: Soft and nontender. Bowel sounds are present, no mass palpable, no CVA tenderness Skin: Skin warm and dry. Normal skin color. Normal skin turgor. Extremities: No lower extremity edema. No calf tenderness Neuro: Oriented X 2-3. No motor deficit. No sensory deficit.No cerebellar signs , cranial nerves II-XII intact Medications Administered Generic Name Dose Route Start Last Admin Trade Name Freq PRN Reason Stop Dose Admin Sodium Chloride 1,000 mls @ 125 mls/hr 11/15/24 17:00 11/15/24 16:55 Ns IVCONT 125 mls/hr .Q8H VITALY Administration Senna 17.2 mg 11/15/24 21:00 11/15/24 22:17 Sennosides 8.6 Mg Tablet PO Not Given BEDTIME VITALY Discontinued Medications Generic Name Dose Route Start Last Admin Trade Name Ogq PRN Reason Stop Dose Admin Furosemide 40 mg 11/15/24 19:09 11/15/24 19:51 Furosemide 40 Mg/4 Ml Vial IVPUSH 11/15/24 19:10 40 mg ONCE ONE Administration Protocol Acetaminophen 1,000 mg in 100 mls @ 400 mls/hr 11/15/24 17:45 11/15/24 18:35 Ofirmev IV 11/15/24 17:59 Infused ONCE ONE Infusion Magnesium Sulfate 2 gm in 50 mls @ 25 mls/hr 11/15/24 22:37 11/15/24 23:34 Magnesium Sulfate/H2o IV 11/16/24 00:36 25 mls/hr ONCE ONE Administration Medical Decision Making Medical Decision Making [facility] Narrative: Patient with chronic SIADH with hyponatremia with increased urine osmolality and increased urine sodium started on IV fluid with IV Lasix admit for further management patient is alert oriented times 2-3 Differential Diagnosis Differential Diagnoses: The differential diagnosis associated with the presentation includes Admission/Observation Consideration of admission/observation: Escalation of care including admission/observation considered Consult Healthcare Provider Management of the patient was discussed with: Hospitalist Lab Data [facility] Lab Attestation statement: I reviewed the patient's lab results. 11/15/24 15:30 11/15/24 23:09 Labs: Lab Results 11/15/24 11/15/24 11/15/24 Range/Units 15:30 15:31 17:30 WBC 4.2 L (4.8-10.8) X10*3/uL RBC 3.65 L (4.60-5.80) X10*6/uL Hgb 10.7 L (14.0-18.0) g/dl Hct 29.5 L (42.0-52.0) % MCV 80.8 (80.0-98.0) fL MCH 29.3 (27.0-33.0) pg MCHC 36.3 H (31.0-36.0) g/dl RDW 13.7 (11.0-16.0) % Plt Count 182 (160-400) X10*3/uL MPV 8.9 L (9.4-12.4) fL Immature Gran % (Auto) 0.2 (0.0-0.4) % Neut % (Auto) 53.1 (45-73) % Lymph % (Auto) 30.8 (20-40) % [place] % (Auto) 8.3 (2-11) % Eos % (Auto) 6.9 H (0-4) % Baso % (Auto) 0.7 (0-2) % Lymph # (Auto) 1.3 (1.2-4.9) X10*3/uL [place] # (Auto) 0.4 (0.1-1.2) X10*3/uL Eos # (Auto) 0.3 (0.0-0.4) X10*3/uL Baso # (Auto) 0.0 (0.0-0.2) X10*3/uL Abs Immat Gran (auto) 0.01 (0.00-0.03) X10*3/uL Absolute Neuts (auto) 2.2 (2.0-8.3) x10*3/uL Absolute Nucleated RBC 0.000 (0.0-0.012) X10*3/uL Nucleated RBC % (auto) 0.0 (0.0-0.2) /100WBC Sodium 121 L (135-145) mmol/L Potassium 4.1 (3.3-5.1) mmol/L Chloride 91 L (96-108) mmol/L Carbon Dioxide 22 (22-29) mmol/L Anion Gap 12 (12-20) BUN 8 L (9-16) mg/dL Creatinine 0.57 (0.5-1.4) mg/dL Estim Creat Clear Calc 143.2 Estimated GFR > 60 Random Glucose 90 (60-115) mg/dL Osmolality (281-305) mosm/kg Calcium 8.7 (8.4-10.2) mg/dL Magnesium 1.5 L (1.6-2.6) mg/dL Total Bilirubin 0.6 (0.0-1.0) mg/dL AST 32 (5-37) U/L ALT 10 (0-40) U/L Alkaline Phosphatase 81 (39-117) U/L Troponin I High Sens 2.9 (<3.5-35.0) ng/L B-Natriuretic Peptide 153 H (<100) pg/mL Total Protein 6.6 (6.5-8.0) g/dL Albumin 3.7 (3.5-5.0) g/dL TSH 3.60 (0.32-4.0) uIU/mL Free T4 1.21 (0.71-1.85) ng/dL Urine Color Urine Appearance Urine pH (5.0-9.0) Ur Specific [place] (1.005-1.025) Urine Protein (Neg-Trace) mg/dL Urine Glucose (UA) (Negative) mg/dL Urine Ketones (Negative) mg/dL Urine Blood (Negative) Urine Nitrite (Negative) Ur Leukocyte Esterase (Negative) Urine Osmolality 536 (373-1093) mosm/kg Ur Random Sodium 155.0 mmol/L Influenza Type A (PCR) NEGATIVE (Negative) Influenza Type B (PCR) NEGATIVE (Negative) RSV RNA Qual (PCR) NEGATIVE (Negative) SARS-CoV-2 RNA (RT-PCR) NEGATIVE (Negative) 11/15/24 11/15/24 Range/Units 17:31 17:48 WBC (4.8-10.8) X10*3/uL RBC (4.60-5.80) X10*6/uL Hgb (14.0-18.0) g/dl Hct (42.0-52.0) % MCV (80.0-98.0) fL MCH (27.0-33.0) pg MCHC (31.0-36.0) g/dl RDW (11.0-16.0) % Plt Count (160-400) X10*3/uL MPV (9.4-12.4) fL Immature Gran % (Auto) (0.0-0.4) % Neut % (Auto) (45-73) % Lymph % (Auto) (20-40) % [place] % (Auto) (2-11) % Eos % (Auto) (0-4) % Baso % (Auto) (0-2) % Lymph # (Auto) (1.2-4.9) X10*3/uL [place] # (Auto) (0.1-1.2) X10*3/uL Eos # (Auto) (0.0-0.4) X10*3/uL Baso # (Auto) (0.0-0.2) X10*3/uL Abs Immat Gran (auto) (0.00-0.03) X10*3/uL Absolute Neuts (auto) (2.0-8.3) x10*3/uL Absolute Nucleated RBC (0.0-0.012) X10*3/uL Nucleated RBC % (auto) (0.0-0.2) /100WBC Sodium (135-145) mmol/L Potassium (3.3-5.1) mmol/L Chloride (96-108) mmol/L Carbon Dioxide (22-29) mmol/L Anion Gap (12-20) BUN (9-16) mg/dL Creatinine (0.5-1.4) mg/dL Estim Creat Clear Calc Estimated GFR Random Glucose (60-115) mg/dL Osmolality 252 L (281-305) mosm/kg Calcium (8.4-10.2) mg/dL Magnesium (1.6-2.6) mg/dL Total Bilirubin (0.0-1.0) mg/dL AST (5-37) U/L ALT (0-40) U/L Alkaline Phosphatase (39-117) U/L Troponin I High Sens (<3.5-35.0) ng/L B-Natriuretic Peptide (<100) pg/mL Total Protein (6.5-8.0) g/dL Albumin (3.5-5.0) g/dL TSH (0.32-4.0) uIU/mL Free T4 (0.71-1.85) ng/dL Urine Color Yellow Urine Appearance Clear Urine pH 7.0 (5.0-9.0) Ur Specific [place] 1.015 (1.005-1.025) Urine Protein Negative (Neg-Trace) mg/dL Urine Glucose (UA) Negative (Negative) mg/dL Urine Ketones Negative (Negative) mg/dL Urine Blood Negative (Negative) Urine Nitrite Negative (Negative) Ur Leukocyte Esterase Negative (Negative) Urine Osmolality (373-1093) mosm/kg Ur Random Sodium mmol/L Influenza Type A (PCR) (Negative) Influenza Type B (PCR) (Negative) RSV RNA Qual (PCR) (Negative) SARS-CoV-2 RNA (RT-PCR) (Negative) Independent Interpretation I performed an independent interpretation of an: EKG Interpretation: Normal sinus rhythm with ventricular rate 68 beats per minute occasional PVCs no acute STT wave changes no acute ischemia Critical Care Time Critical Care Time Critical Care Time: Yes Total Critical Care Time: 55 Attestation: Time is exclusive of separately billable procedures. Time includes: direct patient care, patient reassessment, coordination of patient care, interpretation of data (laboratory data, pulse oximetry, arterial blood gases and chest xrays), review of patient's medical records, medical consultation and documentation of patient care. Procedures excluded from critical care time: central intravenous line placement and electrocardiography. Discharge Plan Discharge Clinical Impression: Hyponatremia, SIADH (syndrome of inappropriate ADH production) Patient Disposition: Admitted As Inpatient
[2024-11-15 17:54] VITALS: BP 155/61; PULSE 69; RESP 16; TEMP 36.2; O2SAT 97
[2024-11-15 18:01] LABS: Appearance Urine Clear; Glucose Urine UA Negative (Negative); PH 7.0 (5.0-9.0); Specific Gravity - Urine 1.015 (1.005-1.025)
[2024-11-15 18:24] LABS: Osmolality, Serum 252 mosm/kg (281-305)
--- NOTE | 2024-11-15 18:41 | MHC.EDTECH ---
patient did not want to feed himself due to having plastic silverware. He will be a 1:1 feed. He also has new dentures and did not want to use them for meals
[2024-11-15 18:51] LABS: Resp Syncy Virus RNA Qual PCR NEGATIVE (Negative); SARS COV2 PCR INHOUSE NEGATIVE (Negative)
--- NOTE | 2024-11-15 19:41 | MHC.EDTECH ---
patient put on a hospital bed
--- NOTE | 2024-11-15 19:49 | PC.NURSE ---
Patient medicated with Furosemide 40 mg IVP, male purewick applied to prevent skin breakdown d/t frequent urination/urinary incontinence. Patient currently resting in a hospital bed, call powell in patient's reach.
[2024-11-15 19:51] VITALS: BP 136/66
[2024-11-15] MEDS: Furosemide 40 MG/4 ML VIAL IVPUSH (19:51)
--- NOTE | 2024-11-15 20:01 | PM.IMHP ---
History of Present Illness Date of Service: 11/15/24 Attending physician on admission: Ashlie Hodges Chief Complaint: weakness Patient is a 69-year-old male residing in a rehab facility since February of 2024 with past medical history of hip fracture with the attempt at pinning which failed and patient now needs left total hip replacement, dental extractions in preparation for hip surgery, AFib on Eliquis currently in sinus rhythm, previous tobacco dependence smokes only intermittently at this time, COPD not on home O2, hypertension, hyperlipidemia, hyponatremia secondary to SIADH (patient has been on divalproex for the last year), CABG x3, UTI, history of alcohol abuse, schizoaffective disorder, presents to ED with complaints of weakness and mild nausea, no vomiting. Patient denies any current chest pain, shortness of breath at rest, abdominal pain, constipation issues or diarrhea. Patient states appetite is good. Patient overall is a poor historian but did his best to answer questions asked. Patient is currently residing at a rehab facility since February of 2024 status post a left hip fracture resulting in pending only per orthopedist at [facility]. The pending failed and now patient is bed-bound and unable to bear weight. This leader writer spoke to patient's niece, his primary caregiver and she explained that there is plans for a left hip total replacement but patient is still going through the preop workup to include echo, stress test but mostly everything else has been completed. There is no date for the anticipated left total hip repair. Patient's UA is negative for UTI, urine osmolality is 536 and random sodium from urine is 155. Serum osmolarity 153. Patient presents euvolemic. Patient is incontinent of urine and periwick has been placed. Renal function also noted to be stable with a GFR greater than 60 and a creatinine clearance of 143.2. Upon review of patient's medications it is noted that patient has been on divalproex and niece confirms that he has been on this medication for the last year. Patient had been on the medication in the past, the medication was stopped and patient was started on olanzapine but had problems again with sodium so the olanzapine was stopped and patient was put back on divalproex for his schizoaffective disorder. During last hospitalization 11/04 through 11/08/2024 patient came in again for hyponatremia and there was thoughts that patient was having seizures. Patient was seen by Neurology and seizure activity was ruled out. Per patient's niece sodium level baseline is 128-129. It is rare for patient to remain in the 130s with a sodium level. Sodium on discharge from previous admission was 129. Sodium today is 121. It is possible that patient is noncompliant with his fluid restriction of 1500 mL per day. Least confirm that patient is taking his 2000 g of sodium 3 times a day at the rehab facility. Patient does not usually refuse his medications. The ED provider contacted Nephrology in the recommend Lasix 40 IV x1 today with 0.9 normal saline at 125 mL/hour. Review of Systems Review of Systems: Patient denies any chest pain, shortness of breath at rest, difficulty urinating. Patient denies any constipation or diarrhea. Patient denies any abdominal pain, is reporting some mild nausea which is improving. Patient denies any headaches or visual changes or difficulty swallowing. Yes all other systems are reviewed and are negative [facility] Medical History Atrial flutter Ischemic cardiomyopathy Former smoker SIADH (syndrome of inappropriate ADH production) Paroxysmal atrial fibrillation Mood disorder Heart failure COPD (chronic obstructive pulmonary disease) Hypertension Hyperlipidemia TIA (transient ischemic attack) Encounter to establish care Cognitive capacity: Alert and orientated to self and location, poor memory or guarding medical history Functional capacity: bed bound (Patient is unable to bear weight due to chronic left hip fracture) Surgical History S/P CABG x 3 Social History Household Members: Other Household Members Other:: Niece and her daughter Housing: House Do you presently have visiting nurse or other home services: No Unable to assess alcohol history related to: Unknown Alcohol intake: former Patient Tobacco Use Status: Tobacco use Unknown Tobacco use type: Cigarette Cigarette Packs Per Day: 1 Cigarettes Per Day: 20 Years Smoked: 53 years Smoked in Last 30 Days: No e-Cigarette/Vaping Use: Never Used Second Hand Smoke Exposure: No Use of substances other than those prescribed or required for medical reasons: No Substance Use Type: Crack/Cocaine and Marijuana Advance Directives: Yes Advance Directives on File: Yes Advance Directives Date on File: 02/17/23 Do you have a plan to hurt others: No Plan service: No Current occupational status: retired Sexual orientation: Straight/Heterosexual Cognitive needs: Yes Hearing needs: No Vision needs: Yes (Glasses) Ebola Risk: Travel/Contact With Anyone From Affected Area/s: No Has Patient Experienced Ebola Symptoms: No Meds Allergies Allergy/AdvReac Type Severity Reaction Status Date / Time No Known Allergies Allergy Verified 11/15/24 14:54 Active Medications: Current Medications Acetaminophen (Acetaminophen 325 Mg Tablet) 650 mg PO Q6H PRN PRN Reason: Pain, Mild 1-3,fever,headache Albuterol/Ipratropium (Albuterol/Iprat 2.5/0.5mg 3 Ml Ampul.Neb) 3 ml INHALE Q4H PRN PRN Reason: Shortness of Breath/Wheezing Calcium Carbonate (Calcium Carbonate 750 Mg Tab.Chew) 750 mg PO Q4H PRN PRN Reason: Heartburn Furosemide (Furosemide 40 Mg/4 Ml Vial) 40 mg IVPUSH DAILY [facility]; Protocol Sodium Chloride (Ns) 1,000 mls @ 125 mls/hr IVCONT .Q8H VITALY Last Admin: 11/15/24 16:55 Dose: 125 mls/hr Magnesium Hydroxide (Milk Of Magnesia 30 Ml Oral.Susp) 30 ml PO DAILY PRN PRN Reason: Constipation Melatonin (Melatonin 3 Mg Tablet) 6 mg PO BEDTIME PRN PRN Reason: Insomnia Ondansetron HCl (Ondansetron Hcl 4 Mg/2 Ml Vial) 4 mg IVPUSH Q8H PRN PRN Reason: Nausea and Vomiting Polyethylene Glycol (Polyethylene Glycol 3350 17 Gm Powd.Pack) 17 gm PO DAILY PRN PRN Reason: Constipation Senna (Sennosides 8.6 Mg Tablet) 17.2 mg PO BEDTIME [facility] Sodium Chloride (0.9 % Sodium Chloride Flush 3 Ml Syringe) 3 ml IVFLUSH QSHIFT [facility] Home Medications ?Medication ?Instructions ?Recorded ?Confirmed ?Last Taken ?Type cetirizine 10 mg tablet (All Day 10 mg PO DAILY PRN allergies 09/30/24 11/15/24 Unknown History Allergy (cetirizine)) divalproex 500 mg tablet,extended 500 mg PO BID 09/30/24 11/15/24 Unknown History release 24 hr docusate sodium 100 mg tablet 100 mg PO BID 09/30/24 11/15/24 Unknown History melatonin 3 mg tablet 6 mg PO BEDTIME PRN Sleep 09/30/24 11/15/24 Unknown History montelukast 10 mg tablet 10 mg PO DAILY 09/30/24 11/15/24 Unknown History omeprazole 20 mg capsule,delayed 20 mg PO DAILY@1630 09/30/24 11/15/24 Unknown History release polyethylene glycol 3350 17 17 g PO DAILY PRN Constipation 09/30/24 11/15/24 Unknown History gram/dose oral powder tiotropium bromide 2.5 2 puff inhalation DAILY 09/30/24 11/15/24 Unknown History mcg/actuation mist for inhalation (Spiriva Respimat) sennosides 8.6 mg tablet (senna) 17.2 mg PO BID 10/26/24 11/15/24 Unknown History ziprasidone HCl 80 mg capsule 80 mg PO BID 10/26/24 11/15/24 Unknown History acetaminophen 325 mg tablet 650 mg PO Q6H PRN MILD PAIN OR 11/02/24 11/15/24 Unknown History FEVER >100.0 aspirin 81 mg chewable tablet 81 mg PO DAILY 11/02/24 11/15/24 Unknown History atorvastatin 40 mg tablet (Lipitor) 40 mg PO BEDTIME 11/02/24 11/15/24 Unknown History carvedilol 3.125 mg tablet 3.125 mg PO BID 11/02/24 11/15/24 Unknown History guaifenesin 100 mg/5 mL oral 100 mg PO Q4H PRN Cough 11/02/24 11/15/24 Unknown History liquid (Daphney-Tussin) ipratropium 0.5 mg-albuterol 3 mg 3 ml inhalation Q6H PRN wheezing 11/02/24 11/15/24 Unknown History (2.5 mg base)/3 mL nebulization soln bisacodyl 10 mg rectal suppository 10 mg [place] DAILY PRN Constipation 11/15/24 11/15/24 Unknown History magnesium hydroxide 400 mg/5 mL 30 ml PO DAILY PRN Constipation 11/15/24 11/15/24 Unknown History oral suspension (Milk of Magnesia) sodium phosphates 19 gram-7 118 ml [place] DAILY PRN Constipation 11/15/24 11/15/24 Unknown History gram/118 mL enema (Fleet Enema) trazodone 150 mg tablet 75 mg PO BEDTIME 11/15/24 11/15/24 Unknown History Physical Exam Vital Signs and Narrative: Vital Signs: Last Vital Signs Temp 97.1 F 11/15/24 17:54 Pulse 69 11/15/24 17:54 Resp 16 11/15/24 17:54 BP 136/66 11/15/24 19:51 Pulse Ox 97 11/15/24 17:54 O2 Del Method Room Air 11/15/24 17:54 BMI result Body Mass Index 28.9 Alert and orientated X2, memory fair, recall for Neuro: CN II-X11 intact, visual acuity intact EYES: PERRLA, EOM intact, sclerae nonicteric, losses on ENT: hearing intact, no issues with swallowing, uvula midline, lips moist, nares patent no epistaxis Cardiac: S1 S2 RRR, no murmur, no JVD, no edema in Lower ext Pulmonary: lungs clear to ausculation B Abdominal: BS active in all 4 quadrants, no guarding, tenderness, rebounding MSK: strength 4/5 upper and 2-3 RLElower extremity, unable to assess strength LLE : no CVA tenderness no bladder distension Extremities: no edema in lower extremities, PT and DP pulses palpable +2 Psych: mood stable, judgement and insight fair Skin: Intact Results Labs 11/15/24 15:30 11/15/24 15:30 Labs: Laboratory Results - last 24 hr 11/15/24 11/15/24 11/15/24 15:30 15:31 17:30 MCV 80.8 MCH 29.3 MCHC 36.3 H RDW 13.7 Plt Count 182 MPV 8.9 L Immature Gran % (Auto) 0.2 Neut % (Auto) 53.1 Lymph % (Auto) 30.8 [place] % (Auto) 8.3 Eos % (Auto) 6.9 H Baso % (Auto) 0.7 Lymph # (Auto) 1.3 [place] # (Auto) 0.4 Eos # (Auto) 0.3 Baso # (Auto) 0.0 Abs Immat Gran (auto) 0.01 Absolute Neuts (auto) 2.2 Absolute Nucleated RBC 0.000 Nucleated RBC % (auto) 0.0 Anion Gap 12 Estim Creat Clear Calc 143.2 Estimated GFR > 60 Random Glucose 90 Osmolality Calcium 8.7 Total Bilirubin 0.6 AST 32 ALT 10 Alkaline Phosphatase 81 B-Natriuretic Peptide 153 H Total Protein 6.6 Albumin 3.7 Urine Color Urine Appearance Urine pH Ur Specific [place] Urine Protein Urine Glucose (UA) Urine Ketones Urine Blood Urine Nitrite Ur Leukocyte Esterase Urine Osmolality 536 Ur Random Sodium 155.0 Influenza Type A (PCR) NEGATIVE Influenza Type B (PCR) NEGATIVE RSV RNA Qual (PCR) NEGATIVE SARS-CoV-2 RNA (RT-PCR) NEGATIVE 11/15/24 11/15/24 17:31 17:48 MCV MCH MCHC RDW Plt Count MPV Immature Gran % (Auto) Neut % (Auto) Lymph % (Auto) [place] % (Auto) Eos % (Auto) Baso % (Auto) Lymph # (Auto) [place] # (Auto) Eos # (Auto) Baso # (Auto) Abs Immat Gran (auto) Absolute Neuts (auto) Absolute Nucleated RBC Nucleated RBC % (auto) Anion Gap Estim Creat Clear Calc Estimated GFR Random Glucose Osmolality 252 L Calcium Total Bilirubin AST ALT Alkaline Phosphatase B-Natriuretic Peptide Total Protein Albumin Urine Color Yellow Urine Appearance Clear Urine pH 7.0 Ur Specific [place] 1.015 Urine Protein Negative Urine Glucose (UA) Negative Urine Ketones Negative Urine Blood Negative Urine Nitrite Negative Ur Leukocyte Esterase Negative Urine Osmolality Ur Random Sodium Influenza Type A (PCR) Influenza Type B (PCR) RSV RNA Qual (PCR) SARS-CoV-2 RNA (RT-PCR) ECG Attestation: I personally reviewed and interpreted this ECG as follows: (Sinus rhythm with 1st degree A-V block with occasional Premature ventricular complexes Non-specific intra-ventricular conduction block Possible Inferior infarct (cited on or before 01-Nov-2024)) Prior ECG tracings: available for review Imaging Radiologist's Impressions: Impressions Chest X-Ray 11/15/24 15:32 IMPRESSION: 1. Stable volume loss right lung with associated scarring and peribronchial thickening. 2. Similar prominence of the background interstitial markings both lungs, likely representing a combination of emphysema and chronic lung disease. Electronically signed by: Gregory Gonzalez MD 11/15/2024 03:50 PM EDT Assessment and Plan (1) Hyponatremia: Status: Acute Plan Patient is a 69-year-old male residing in a rehab facility since February of 2024 with past medical history of hip fracture with the attempt at pinning which failed and patient now needs left total hip replacement, dental extractions in preparation for hip surgery, AFib on Eliquis currently in sinus rhythm, previous tobacco dependence smokes only intermittently at this time, COPD not on home O2, hypertension, hyperlipidemia, hyponatremia secondary to SIADH (patient has been on divalproex for the last year), CABG x3, UTI, history of alcohol abuse, schizoaffective disorder, presents to ED with complaints of weakness and mild nausea, no vomiting. Patient previously at [facility] 11/04/2024 - 11/08/2024 for hyponatremia/SIADH. Patient being admitted for the same. Hyponatremia/SIADH on divalproex/ Geodon Baseline NA 128-129, today 121, no AMS Nephrology consulted Urine sodium and osmolarity levels normal, serum osmolarity level low 0.9 NS at 125 mL/hour per Nephrology Lasix 40 IV x1 today per Nephrology Fluid restriction 1500 Continue sodium chloride tabs once med rec completed Consulting Psychiatry to review divalproex/ Geodon and connection with ongoing issues related to SIADH Trend Na levels HX of left hip fracture Chronic, pt currently residing in rehab facility, completely dependent for most aspects of care. Patient is bed-bound at this time. [facility] Orthopedist performed pinning of left hip which failed back in February of 2024, plans for total hip replacement pending preop workup COPD No Hypoxia on admission No home O2 Await completion of med rec, continue home medications Duo nebs prn HLD Continue statin, LFTs stable HTN Continue coreg, BP stable GERD Omeperazole HX of AFIB on eliquis ECG NSR, First degree AVB, [place] 262 Continue eliquis, on coreg No issues with spontaneous bleeding, H/H stable MG 1.5, will administer 2 GMS TSH WNL Schizoaffective D/O Psychiatry consulted for expert opinion regarding use of divalproex/ geodon and ongoing hyponatremia, SIADH MED REC pending Mood stable DVT Prophylaxis: Eliquis Med rec pending Full code status Quality Stroke Does the patient have a stroke diagnosis?: No Reason for No Anti-thrombotic by Day Two: N/A - Med Ordered VTE Prior VTE?: No VTE Risk Level:: Medical - moderate - high VTE Device Contraindication: N/A - Device Ordered VTE Drug Contraindication: N/A - Med Ordered
[2024-11-15 20:42] LABS: Magnesium 1.5 mg/dL (1.6-2.6)
[2024-11-15 20:57] LABS: Free T4 (Free Thyroxine) 1.21 ng/dL (0.71-1.85); Thyroid Stimulating Hormone 3.60 uIU/mL (0.32-4.0)
--- NOTE | 2024-11-15 21:46 | PHA.MEDREC ---
Addendum entered by Augustin Plaza [facility] 11/15/24 22:12: MED REC CHECK BY [facility] Original Note: Pharmacy Consult ? Medication Reconciliation Pharmacy has completed the medication reconciliation. Utilized list from [facility].
--- NOTE | 2024-11-15 22:49 | PC.NURSE ---
Nurse to nurse report called to SHARON Ramos in overflow, patient to be transported to overflow, room 1 by nurse tech.
[2024-11-15 23:05] VITALS: BP 107/62; PULSE 67; RESP 20; TEMP 36.3; O2SAT 96
[2024-11-15 23:32] LABS: Sodium 124 mmol/L (135-145)
[2024-11-15] MEDS: Magnesium Sulfate/H2O 2 GM/50 ML PIGGYBACK IV (23:34)
[2024-11-16 05:16] VITALS: BP 122/65; PULSE 83; RESP 20; TEMP 36.4; O2SAT 97
[2024-11-16 06:34] LABS: MANUAL DIFF FLAG NO
[2024-11-16 06:41] LABS: Hematocrit 28.0 % (42.0-52.0); Hemoglobin 10.2 g/dl (14.0-18.0); Imm Gran Abs Auto 0.01 X10*3/uL (0.00-0.03); Imm Gran Pct Auto 0.2 % (0.0-0.4); Lymphocytes Absolute Auto 1.3 X10*3/uL (1.2-4.9); Mean Corpuscular HGB Conc 36.4 g/dl (31.0-36.0); Mean Corpuscular Hemoglobin 29.3 pg (27.0-33.0); Mean Corpuscular Volume 80.5 fL (80.0-98.0); NRBC Abs Auto 0.000 X10*3/uL (0.0-0.012); NRBC Pct Auto 0.0 /100WBC (0.0-0.2); Platelet Count 193 X10*3/uL (160-400); Red Blood Count 3.48 X10*6/uL (4.60-5.80); White Blood Count 4.8 X10*3/uL (4.8-10.8)
[2024-11-16 06:53] LABS: Anion Gap 10 (12-20); Blood Urea Nitrogen 7 mg/dL (9-16); Calcium 8.4 mg/dL (8.4-10.2); Carbon Dioxide 22 mmol/L (22-29); Chloride 94 mmol/L (96-108); Creatinine Clr Calc Pharmacy 140.7; Estimated Glomerular Filt Rate > 60; Magnesium 1.8 mg/dL (1.6-2.6); Potassium 4.3 mmol/L (3.3-5.1); Sodium 122 mmol/L (135-145)
[2024-11-16] MEDS: Furosemide 40 MG/4 ML VIAL IVPUSH (08:07)
[2024-11-16] MEDS: Sodium Chloride Tab 1 GM TABLET 2 GM PO ×3 (08:08→21:13)
[2024-11-16] MEDS: Tiotropium Bromide 2.5 mcg 1 PUFF/2.5 MCG MIST.INHAL 2 PUFF INHALE (08:11)
--- NOTE | 2024-11-16 08:59 | MHC.EDTECH ---
pt was washed up and lotion was applied with complete bed change done. pt also had 100% breakfast and voided 1,200 (male purwick). pt also had denture care done.
--- NOTE | 2024-11-16 09:31 | MHC.EDTECH ---
pt was given a new male sandy
--- NOTE | 2024-11-16 09:47 | MHC.EDTECH ---
pt voided 700ml
[2024-11-16 09:56] VITALS: BMI 28.7
[2024-11-16 10:32] VITALS: BP 124/77; PULSE 76; RESP 18; TEMP 36.6; O2SAT 100
--- NOTE | 2024-11-16 13:42 | HO.SKINPHOTO ---
Pt arrived to unit from ED overflow with ulcerations to toes on left foot, pt [facility] Toes painted with betadine. Blanchable pinkness to buttocks and heels, foams applied and pressure to heels off loaded with pillows.
[2024-11-16 14:07] LABS: Sodium 125 mmol/L (135-145)
[2024-11-16 15:18] VITALS: BP 104/59; PULSE 78; RESP 18; TEMP 36.9; O2SAT 95
--- NOTE | 2024-11-16 15:35 | HO.PM.IMPN ---
Subjective Subjective Date of Service: 11/16/24 Interval History: seen and examined this morning follow up for hyponatremia patient has no complaints Constitutional Constitutional: Denies chills and Denies fever(s) Cardiovascular Cardiovascular: Denies dyspnea Respiratory Respiratory: Denies cough and Denies dyspnea Gastrointestinal Gastrointestinal: Denies abdominal pain, Denies diarrhea, Denies nausea and Denies vomiting Physical Exam Vital Signs: Vital Signs: Last Vital Signs Temp 98.5 F 11/16/24 15:18 Pulse 78 11/16/24 15:18 Resp 18 11/16/24 15:18 BP 104/59 L 11/16/24 15:18 Pulse Ox 95 11/16/24 15:18 O2 Del Method Room Air 11/16/24 15:18 BMI result Body Mass Index 28.7 Const: General: comfortable, no acute distress, alert and awake Chest: Chest palpation & inspection: normal inspection of the chest Resp: Effort & Inspection: normal respiratory effort and no respiratory distress Cardio: Rate: regular rate GI: Palpation (GI): Soft to palpation and nontender Objective Data Active Medications Acetaminophen (Acetaminophen 325 Mg Tablet) 650 mg PO Q6H PRN PRN Reason: Pain, Mild 1-3,fever,headache Albuterol/Ipratropium (Albuterol/Iprat 2.5/0.5mg 3 Ml Ampul.Neb) 3 ml INHALE Q4H PRN PRN Reason: Shortness of Breath/Wheezing Apixaban (Apixaban 5 Mg Tablet) 5 mg PO BID REPLACED BY [facility] Last Admin: 11/16/24 08:06 Dose: 5 mg Documented By: THOMAS Aspirin (Aspirin 81 Mg Tab.Chew) 81 mg PO DAILY REPLACED BY [facility] Last Admin: 11/16/24 08:06 Dose: 81 mg Documented By: THOMAS Atorvastatin Calcium (Atorvastatin Calcium 40 Mg Tablet) 40 mg PO BEDTIME REPLACED BY [facility] Bisacodyl (Bisacodyl 10 Mg Supp.Rect) 10 mg MA DAILY PRN PRN Reason: Constipation Calcium Carbonate (Calcium Carbonate 750 Mg Tab.Chew) 750 mg PO Q4H PRN PRN Reason: Heartburn Carvedilol (Carvedilol 3.125 Mg Tablet) 3.125 mg PO BIDWM REPLACED BY [facility]; Protocol Last Admin: 11/16/24 08:06 Dose: 3.125 mg Documented By: THOMAS Divalproex Sodium (Divalproex Sodium Er 500 Mg Tab.Er.24h) 500 mg PO BID REPLACED BY [facility] Last Admin: 11/16/24 08:06 Dose: 500 mg Documented By: THOMAS Docusate Sodium (Docusate Sodium 100 Mg Capsule) 100 mg PO BID REPLACED BY [facility] Last Admin: 11/16/24 08:07 Dose: 100 mg Documented By: THOMAS Guaifenesin (Guaifenesin 200 Mg/10 Ml 10 Ml Liquid) 10 ml PO Q4H PRN PRN Reason: Cough Magnesium Hydroxide (Milk Of Magnesia 30 Ml Oral.Susp) 30 ml PO DAILY PRN PRN Reason: Constipation Melatonin (Melatonin 3 Mg Tablet) 6 mg PO BEDTIME PRN PRN Reason: Insomnia Montelukast Sodium (Montelukast Sodium 10 Mg Tablet) 10 mg PO BEDTIME REPLACED BY [facility] Multivitamins/Vitamin C (Multivitamin Tablet) 1 tab PO DAILY REPLACED BY [facility] Last Admin: 11/16/24 08:06 Dose: 1 tab Documented By: THOMAS Non-Formulary Medication (Umeclidinium-Vilanterol [Anoro Ellipta]) 1 inhalation INHALE DAILY REPLACED BY [facility] Omeprazole (Omeprazole 20 Mg Capsule.Dr) 20 mg PO DAILY@1630 REPLACED BY [facility] Ondansetron HCl (Ondansetron Hcl 4 Mg/2 Ml Vial) 4 mg IVPUSH Q8H PRN PRN Reason: Nausea and Vomiting Polyethylene Glycol (Polyethylene Glycol 3350 17 Gm Powd.Pack) 17 gm PO DAILY PRN PRN Reason: Constipation Senna (Sennosides 8.6 Mg Tablet) 17.2 mg PO BID REPLACED BY [facility] Last Admin: 11/16/24 08:06 Dose: 17.2 mg Documented By: THOMAS Sodium Chloride (0.9 % Sodium Chloride Flush 3 Ml Syringe) 3 ml IVFLUSH QSHIFT REPLACED BY [facility] Last Admin: 11/16/24 07:25 Dose: Not Given Documented By: THOMAS Non-Admin Reason: IV Running Sodium Chloride (Sodium Chloride Tab 1 Gm Tablet) 2 gm PO TID REPLACED BY [facility] Last Admin: 11/16/24 08:08 Dose: 2 gm Documented By: THOMAS Tiotropium Midland (Tiotropium [place]land 2.5 Mcg 1 Puff/2.5 Mcg Mist.Inhal) 2 puff INHALE DAILY REPLACED BY [facility] Last Admin: 11/16/24 08:11 Dose: 2 puff Documented By: THOMAS Trazodone HCl (Trazodone Hcl 25 Mg Halftab) 75 mg PO BEDTIME [facility] Ziprasidone (Ziprasidone 80 Mg Capsule) 80 mg PO BID [facility] Last Admin: 11/16/24 08:06 Dose: 80 mg Documented By: THOMAS Labs 11/16/24 06:27 11/16/24 13:47 Labs: Laboratory Results - last 24 hr 11/15/24 11/15/24 11/15/24 15:30 15:31 17:30 MCV 80.8 MCH 29.3 MCHC 36.3 H RDW 13.7 Plt Count 182 MPV 8.9 L Immature Gran % (Auto) 0.2 Neut % (Auto) 53.1 Lymph % (Auto) 30.8 Jack % (Auto) 8.3 Eos % (Auto) 6.9 H Baso % (Auto) 0.7 Lymph # (Auto) 1.3 Jack # (Auto) 0.4 Eos # (Auto) 0.3 Baso # (Auto) 0.0 Abs Immat Gran (auto) 0.01 Absolute Neuts (auto) 2.2 Absolute Nucleated RBC 0.000 Nucleated RBC % (auto) 0.0 Anion Gap 12 Estim Creat Clear Calc 143.2 Estimated GFR > 60 Random Glucose 90 Osmolality Calcium 8.7 Magnesium 1.5 L Total Bilirubin 0.6 AST 32 ALT 10 Alkaline Phosphatase 81 B-Natriuretic Peptide 153 H Total Protein 6.6 Albumin 3.7 TSH 3.60 Free T4 1.21 Urine Color Urine Appearance Urine pH Ur Specific Hiram Urine Protein Urine Glucose (UA) Urine Ketones Urine Blood Urine Nitrite Ur Leukocyte Esterase Urine Osmolality 536 Ur Random Sodium 155.0 Influenza Type A (PCR) NEGATIVE Influenza Type B (PCR) NEGATIVE RSV RNA Qual (PCR) NEGATIVE SARS-CoV-2 RNA (RT-PCR) NEGATIVE 11/15/24 11/15/24 11/16/24 17:31 17:48 06:27 MCV 80.5 MCH 29.3 MCHC 36.4 H RDW 13.8 Plt Count 193 MPV 9.4 Immature Gran % (Auto) 0.2 Neut % (Auto) 61.9 Lymph % (Auto) 26.4 Jack % (Auto) 5.9 Eos % (Auto) 4.8 H Baso % (Auto) 0.8 Lymph # (Auto) 1.3 Jack # (Auto) 0.3 Eos # (Auto) 0.2 Baso # (Auto) 0.0 Abs Immat Gran (auto) 0.01 Absolute Neuts (auto) 3.0 Absolute Nucleated RBC 0.000 Nucleated RBC % (auto) 0.0 Anion Gap 10 L Estim Creat Clear Calc 140.7 Estimated GFR > 60 Random Glucose 76 Osmolality 252 L Calcium 8.4 Magnesium 1.8 Total Bilirubin AST ALT Alkaline Phosphatase B-Natriuretic Peptide Total Protein Albumin TSH Free T4 Urine Color Yellow Urine Appearance Clear Urine pH 7.0 Ur Specific Hiram 1.015 Urine Protein Negative Urine Glucose (UA) Negative Urine Ketones Negative Urine Blood Negative Urine Nitrite Negative Ur Leukocyte Esterase Negative Urine Osmolality Ur Random Sodium Influenza Type A (PCR) Influenza Type B (PCR) RSV RNA Qual (PCR) SARS-CoV-2 RNA (RT-PCR) Assessment and Plan (1) SIADH (syndrome of inappropriate ADH production): Status: Acute Plan Patient is a 69-year-old male residing in a rehab facility since February of 2024 with past medical history of hip fracture with the attempt at pinning which failed and patient now needs left total hip replacement, AFib on Eliquis currently in sinus rhythm, previous tobacco dependence smokes only intermittently at this time, COPD not on home O2, hypertension, hyperlipidemia, hyponatremia secondary to SIADH (patient has been on divalproex for the last year), CABG x3, UTI, history of alcohol abuse, schizoaffective disorder, presents to ED with complaints of weakness and mild nausea, no vomiting. Patient previously at [facility] 11/04/2024 - 11/08/2024 for hyponatremia/SIADH being admitted for the same. Hyponatremia due to SIADH on divalproex/ Geodon/ trazodone Baseline NA 128-129; 121 on admission, up to 125 Continue fluid restriction Continue sodium chloride stop IVF Urea 30 g x 1 dose as per Nephrology Nephrology following on trazodone, divalproex, Geodon likely contributing Trend sodium levels q.6 hours, next at 20:00 and if stable can repeat in a.m. HX of left hip fracture Chronic, pt currently residing in rehab facility, completely dependent for most aspects of care. Patient is bed-bound at this time. [facility] Orthopedist performed pinning of left hip which failed back in February of 2024, plans for total hip replacement pending preop workup COPD No Hypoxia on admission No home O2 Await completion of med rec, continue home medications Duo nebs prn HLD Continue statin HTN Continue coreg, BP stable GERD Omeperazole HX of AFIB on eliquis Continue eliquis, coreg Hypomagnesemia Improved with replacement Schizoaffective D/O Psychiatry consulted for expert opinion regarding use of divalproex/ geodon and ongoing hyponatremia, SIADH DVT Prophylaxis: Eliquis Full code Quality Stroke Does the patient have a stroke diagnosis?: No Reason for No Anti-thrombotic by Day Two: N/A - Med Ordered VTE Prior VTE?: No VTE Risk Level:: Medical - moderate - high VTE Device Contraindication: N/A - Device Ordered VTE Drug Contraindication: N/A - Med Ordered
[2024-11-16] MEDS: 0.9 % Sodium Chloride Flush 3 ML SYRINGE IVFLUSH ×2 (16:35→21:15)
[2024-11-16 16:46] VITALS: BP 132/70; PULSE 77
[2024-11-16] MEDS: oxyCODONE HCl Immed Release 5 MG TABLET PO (18:42)
[2024-11-16 20:00] VITALS: BP 128/81; PULSE 85; RESP 18; TEMP 36.9; O2SAT 95
[2024-11-16 20:13] LABS: Sodium 126 mmol/L (135-145)
[2024-11-16] MEDS: traZODone HCL 25 MG HALFTAB 75 MG PO (21:10)
[2024-11-17 03:39] VITALS: BP 119/68; PULSE 71; RESP 18; TEMP 36.4; O2SAT 98
[2024-11-17 07:37] LABS: Anion Gap 13 (12-20); Blood Urea Nitrogen 27 mg/dL (9-16); Carbon Dioxide 23 mmol/L (22-29); Chloride 96 mmol/L (96-108); Creatinine Clr Calc Pharmacy 117.8; Estimated Glomerular Filt Rate > 60; Potassium 4.5 mmol/L (3.3-5.1); Sodium 127 mmol/L (135-145)
[2024-11-17 07:52] VITALS: BP 105/67; PULSE 72; RESP 18; TEMP 36.6; O2SAT 95
[2024-11-17 07:56] LABS: Calcium 9.5 mg/dL (8.4-10.2)
[2024-11-17] MEDS: Tiotropium Bromide 2.5 mcg 1 PUFF/2.5 MCG MIST.INHAL 2 PUFF INHALE (09:05)
[2024-11-17] MEDS: Sodium Chloride Tab 1 GM TABLET 2 GM PO (09:07)
[2024-11-17] MEDS: 0.9 % Sodium Chloride Flush 3 ML SYRINGE IVFLUSH (09:07)
--- NOTE | 2024-11-17 10:23 | P.DS_ITS ---
DS: Providers Provider Date of Service: 11/17/24 Date of admission: 11/15/24 19:09 Date of discharge: 11/17/24 Primary care physician: Unknown Physician Consults: 11/15/24 19:31 Consult to Nephrology Routine Consulting Provider: [facility] Reason for consultation: hyponatremia Has provider been notified: No 11/15/24 20:34 Consult to Psychiatry Routine Consulting Provider: [facility] Reason for consultation: Hyponatremia/ SIADH on Divalproex/ Geodon - chronic issue 11/16/24 19:01 Consult to Wound Care Routine Reason for consultation: left toes ulcers Attending physician on discharge: [facility] Discharging clinician: Christina Glaser DS: Diagnosis Discharge Diagnosis (1) SIADH (syndrome of inappropriate ADH production): Status: Acute DS: Summary Hospital Course Hospital Course: From H&P on the day of admission Patient is a 69-year-old male residing in a rehab facility since February of 2024 with past medical history of hip fracture with the attempt at pinning which failed and patient now needs left total hip replacement, dental extractions in preparation for hip surgery, AFib on Eliquis currently in sinus rhythm, previous tobacco dependence smokes only intermittently at this time, COPD not on home O2, hypertension, hyperlipidemia, hyponatremia secondary to SIADH (patient has been on divalproex for the last year), CABG x3, UTI, history of alcohol abuse, schizoaffective disorder, presents to ED with complaints of weakness and mild nausea, no vomiting. Pat ient denies any current chest pain, shortness of breath at rest, abdominal pain, constipation issues or diarrhea. Patient states appetite is good. Patient overall is a poor historian but did his best to answer questions asked. Patient is currently residing at a rehab facility since February of 2024 status post a left hip fracture resulting in pending only per orthopedist at [facility]. The pending failed and now patient is bed-bound and unable to bear weight. This appeals writer spoke to patient's niece, his primary caregiver and she explained that there is plans for a left hip total replacement but patient is still going through the preop workup to include echo, stress test but mostly everything else has been completed. There is no date for the anticipated left total hip repair. Patient's UA is negative for UTI, urine osmolality is 536 and random sodium from urine is 155. Serum osmolarity 153. Patient presents euvolemic. Patient is incontinent of urine and periwick has been placed. Renal function also noted to be stable with a GFR greater than 60 and a creatinine clearance of 143.2. Upon review of patient's medications it is noted that patient has been on divalproex and niece confirms that he has been on this medication for the last year. Patient had been on the medication in the past, the medication was stopped and patient was started on olanzapine but had problems again with sodium so the olanzapine was stopped and patient was put back on divalproex for his schizoaffective disorder. During last hospitalization 11/04 through 11/08/2024 patient came in again for hyponatremia and there was thoughts that patient was having seizures. Patient was seen by Neurology and seizure activity was ruled out. Per patient's niece sodium level baseline is 128-129. It is rare for patient to remain in the 130s with a sodium level. Sodium on discharge from previous admission was 129. Sodium today is 121. It is possible that patient is noncompliant with his fluid restriction of 1500 mL per day. Least confirm that patient is taking his 2000 g of sodium 3 times a day at the rehab facility. Patient does not usually refuse his medications. The ED provider contacted Nephrology in the recommend Lasix 40 IV x1 today with 0.9 normal saline at 125 mL/hour. Hyponatremia due to SIADH Baseline NA 128-129; 121 on admission, up to 127 with fluid restriction and sodium chloride tablets. Received 1 dose of urea. Patient on multiple psychiatric medications including trazodone, divalproex, Geodon that are likely contributing, but likely needs for adequate control of psychiatric symptoms. Nephrology recommended against making any changes at this time. Recommended to continue fluid restriction 1500 mL daily as well as sodium chloride tablets twice daily. Repeat labs in the middle of next week. Call to schedule outpatient follow-up with Nephrology for close monitoring. no other changes to baseline medications. Time Attestation Discharge Coordination Time (in mins): 32 Quality: Safe Use of Opioids Does Pt have an Active Cancer Diagnosis on the Problem List?: No Quality: Stroke Does the patient have a stroke diagnosis?: No Physical Exam Vital Signs: Vital Signs: Last Vital Signs Temp 97.8 F 11/17/24 07:52 Pulse 72 11/17/24 07:52 Resp 18 11/17/24 07:52 BP 105/67 11/17/24 07:52 Pulse Ox 95 11/17/24 07:52 O2 Del Method Room Air 11/17/24 07:52 BMI result Body Mass Index 28.7 Const: General: cooperative, comfortable, no acute distress, alert and awake Nutritional Appearance: average body habitus Chest: Chest palpation & inspection: normal inspection of the chest Resp: Effort & Inspection: normal respiratory effort, able to speak in complete sentences, no respiratory distress and no use of accessory muscles Cardio: Rate: regular rate GI: Palpation (GI): Soft to palpation and nontender DS: Data Data Completed and Pending Completed studies during hospitalization [Text1]: Procedures Insertion of Infusion Device into Left Basilic Vein, Percutaneous Approach (10/26/24) Labs on day of discharge: Laboratory Results - last 24 hr 11/16/24 11/16/24 11/17/24 13:47 19:58 07:02 Sodium 125 L 126 L 127 L Potassium 4.5 Chloride 96 Carbon Dioxide 23 Anion Gap 13 BUN 27 H Creatinine 0.69 Estim Creat Clear Calc 117.8 Estimated GFR > 60 Random Glucose 80 Calcium 9.5 D Discharge Plan Discharge Patient Disposition: er [facility] Discharge Diagnosis: SIADH Referrals: Physician,Unknown J [Primary Care Provider, Medical] - 1 Week Discharge Medications: Continued multivitamin Tablet 1 tab PO DAILY Qty: 90 0RF Eliquis 5 mg Tablet 5 mg PO BID Qty: 60 0RF ziprasidone HCl 80 mg capsule 80 mg PO BID sennosides [senna] 8.6 mg Tablet 17.2 mg PO BID carvedilol 3.125 mg tablet 3.125 mg PO BID Protocol: Hold for SBP/HR < HOLD for SBP < : 90 HOLD for HR < : 60 Rx Instructions: must administer with a meal/food aspirin 81 mg Tablet,Chewable 81 mg PO DAILY atorvastatin [Lipitor] 40 mg tablet 40 mg PO BEDTIME acetaminophen 325 mg tablet 650 mg PO Q6H PRN (Reason: MILD PAIN OR FEVER >100.0) guaifenesin [Daphney-Tussin] 100 mg/5 mL Liquid 100 mg PO Q4H PRN (Reason: Cough) ipratropium-albuterol 0.5 mg-3 mg(2.5 mg base)/3 mL solution for nebulization 3 ml inhalation Q6H PRN (Reason: wheezing) trazodone 150 mg tablet 75 mg PO BEDTIME magnesium hydroxide [Milk of Magnesia] 400 mg/5 mL Suspension 30 ml PO DAILY PRN (Reason: Constipation) Rx Instructions: If no BM for 3 days. bisacodyl 10 mg Suppository 10 mg AL DAILY PRN (Reason: Constipation) Rx Instructions: If no effect from MoM. Fleet Enema 19-7 gram/118 mL Enema 118 ml AL DAILY PRN (Reason: Constipation) Rx Instructions: If no effect from Bisacodyl. cetirizine [All Day Allergy (cetirizine)] 10 mg tablet 10 mg PO DAILY PRN (Reason: allergies) divalproex 500 mg tablet extended release 24 hr 500 mg PO BID docusate sodium 100 mg tablet 100 mg PO BID Spiriva Respimat 2.5 mcg/actuation mist 2 puff inhalation DAILY melatonin 3 mg tablet 6 mg PO BEDTIME PRN (Reason: Sleep) omeprazole 20 mg capsule,delayed release(DR/EC) 20 mg PO DAILY@1630 polyethylene glycol 3350 17 gram/dose powder 17 g PO DAILY PRN (Reason: Constipation) montelukast 10 mg tablet 10 mg PO DAILY umeclidinium-vilanterol [Anoro Ellipta] 62.5-25 mcg/actuation blister with device 1 inh inhalation DAILY Qty: 60 6RF Changed sodium chloride 1,000 mg tablet,soluble 2,000 mg PO BID Qty: 360 0RF Rx Instructions: Take two tablets daily three times a day for chronic SIADH and cerebral salt- wasting Discharge Orders: Discharge Order (Routine); Ordered 11/17/24 Ordered By: Christina Glaser Activity on Discharge: As tolerated Stand Alone Forms: Patient Portal Discharge page Print Language: Albanian Care Plan Goals: See below Health Concerns: Hyponatremia/SIADH Plan of Treatment: Continue fluid restriction 1500 mL New sodium chloride to 2 g twice daily Call to schedule follow-up appointment with Nephrology Repeat [facility] Monday Assessment: See discharge summary
[2024-11-17] MEDS: oxyCODONE HCl Immed Release 5 MG TABLET PO (10:52)
--- NOTE | 2024-11-17 11:20 | MHC.CM.PN ---
PT HAS BEEN A RESIDENT OF [facility] SINCE 2023 HE IS BED BOUND AND UNABLE TO BEAR WEIGHT ON HIS HIP HCP AND MOLST ON FILE PCP: KATELIN BARAJAS IMM DELIVERED ON 11/16/24 PT CLEARED TO DC BACK TO [facility] TODAY VIA BLS TRANSPORT SCHEDULED FOR 1430 VIA [place]
[2024-11-17 14:14] VITALS: BP 113/67; PULSE 70; RESP 18; TEMP 36.1; O2SAT 99
== END 2024-11-17 14:19 | DRG 645 ==
LOC: HO.ED 16:35 → HO.EDOVER 19:30 → HO.S3 11-16 07:49
PROVIDERS: Nurse Practitioner Family; Admitting Provider Student in an Organized Health Care Education/Training Program; Emergency Provider Internal Medicine; Visit Provider Physician Assistant Medical
DX: E22.2 Syndrome of inappropriate secretion of antidiuretic hormone (principal); I25.10 Atherosclerotic heart disease of native coronary artery without angina pectoris; Z95.1 Presence of aortocoronary bypass graft; F25.9 Schizoaffective disorder, unspecified; K21.9 Gastro-esophageal reflux disease without esophagitis; I48.91 Unspecified atrial fibrillation; E78.5 Hyperlipidemia, unspecified; I10 Essential (primary) hypertension; J44.9 Chronic obstructive pulmonary disease, unspecified; Z20.822 Contact with and (suspected) exposure to COVID-19; Z79.01 Long term (current) use of anticoagulants; Z79.82 Long term (current) use of aspirin; Z79.899 Other long term (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
CPT/HCPCS: 36415; 71045; 80048; 80053; 81003; 83735; 83880; 83930; 83935; 84295; 84300; 84439; 84443; 84484; 85025; 87637; 93005; 99285; J0131; J1938; J3475

== ENCOUNTER → 2024-11-15 14:57 | Outpatient (BNV) | payer OTHER, SELFPAY | PROVIDERS: Admitting Provider Student in an Organized Health Care Education/Training Program; Emergency Provider Internal Medicine; Visit Provider Internal Medicine Cardiovascular Disease | DX: I44.0 Atrioventricular block, first degree (principal); I49.3 Ventricular premature depolarization; I45.4 Nonspecific intraventricular block | CPT/HCPCS: 93010 ==

== ENCOUNTER → 2024-11-15 15:32 | Outpatient (BNV) | payer OTHER, SELFPAY | PROVIDERS: Visit Provider Radiology Diagnostic Radiology | DX: R53.1 Weakness (principal) | CPT/HCPCS: 71045 ==

== ENCOUNTER → 2024-11-15 19:09 | Outpatient (BNV) | payer OTHER, SELFPAY | PROVIDERS: Admitting Provider Student in an Organized Health Care Education/Training Program; Emergency Provider Internal Medicine; Visit Provider Nurse Practitioner Family | DX: E22.2 Syndrome of inappropriate secretion of antidiuretic hormone (principal); E87.1 Hypo-osmolality and hyponatremia | CPT/HCPCS: 99223; 99232 ==

== ENCOUNTER 2024-11-18 11:02 | Outpatient (AMB) | payer OTHER, SELFPAY ==
--- NOTE | 2024-11-18 11:14 | HO.NEPHOV_ITS ---
Vital Signs 11/18/24 11:17 BP 120/76 Blood Pressure Location Rt brachial Position Semi Pierson's Intake Visit Reasons: FU Tumbling And Rolling Supervisor Required: No Accompanied by: Self / Same As Patient Allergies No Known Allergies Allergy (Verified 11/18/24 11:15) HPI Comments Details: 69 y/o male with a medical history of schizophrenia, afib, CAD, SIADH, COPD, CHF, TIA, history of alcohol abuse. Currently in rehab, patient reports he lives with his niece when home and she helps care for him. Per hospital notes patient has been residing at a rehab facility since February 2024. He is here unaccompanied (came in via stretcher via ambulance from rehab, pt is a poor historian). recently admitted x2 to the hospital for hyponatremia. Has baseline SIADH, had episode of cerebral salt wasting s/p seizure during first admission in October 28- 11/08 for hyponatremia. Had second admission from 11/15-11/17 for another episode of hyponatremia- had weakness and mild nausea, sodium was 121, sodium increased to 127 with fluid restriction and salt tablets, 1x dose of urea powder. urine osm 536, urine sodium 155, serum osm 153. Sodium is in upper 120s at baseline. Takes divalproex for management of schizoaffective disorder; also takes trazodone. Patient reports he is not aware of how much fluid to drink. States he is feeling well and denies nasuea, vomiting, diarrhea, dizziness, weakness, muscle cramping or other symptoms. Denies excessive urination/urinary frequency. States he feels well and wants to go home. Patient has not yet gotten his outpatient labs done. [facility] Medical History Atrial flutter Ischemic cardiomyopathy Former smoker SIADH (syndrome of inappropriate ADH production) Paroxysmal atrial fibrillation Mood disorder Heart failure COPD (chronic obstructive pulmonary disease) Hypertension Hyperlipidemia TIA (transient ischemic attack) Encounter to establish care Surgical History Status post hip surgery S/P CABG x 3 Social History Household Members: Other Household Members Other:: Niece and her daughter Housing: Other Housing Other:: [facility] [place] [place] Do you presently have visiting nurse or other home services: No Unable to assess alcohol history related to: Unknown Alcohol intake: former Patient Tobacco Use Status: Tobacco use Unknown Tobacco use type: Cigarette Cigarette Packs Per Day: 1 Cigarettes Per Day: 20 Years Smoked: 53 years e-Cigarette/Vaping Use: Never Used Second Hand Smoke Exposure: No Substance Use Type: Crack/Cocaine and Marijuana Advance Directives Date on File: 02/17/23 service: No Current occupational status: retired Sexual orientation: Straight/Heterosexual Cognitive needs: Yes Hearing needs: No Vision needs: Yes (Glasses) Review of Systems Const All systems reviewed & are unremarkable except as noted in HPI and below Physical Exam Const General: no acute distress, alert and awake Resp Effort & Inspection: normal respiratory effort and able to speak in complete sentences Auscultation: clear to auscultation bilaterally Cardio Rate: regular rate Rhythm: regular rhythm Heart sounds: S1 normal heart sound present and S2 normal heart sound present GI Palpation (GI): Soft to palpation and nontender General: Yes no CVA tenderness Back/Spine/Pelvis Back: no CVA tenderness Skin Rashes: no rashes Extrem General: No edema Results Reviewed Nephrology Results: Hgb, (14.0-18.0) 10.2 g/dl L 11/16/24 WBC, (4.8-10.8) 4.8 X10*3/uL 11/16/24 Plt Count, (160-400) 193 X10*3/uL 11/16/24 Sodium, (135-145) 127 mmol/L L 11/17/24 Potassium, (3.3-5.1) 4.5 mmol/L 11/17/24 Chloride, (96-108) 96 mmol/L 11/17/24 Carbon Dioxide, (22-29) 23 mmol/L 11/17/24 BUN, (9-16) 27 mg/dL H 11/17/24 Creatinine, (0.5-1.4) 0.69 mg/dL 11/17/24 Calcium, (8.4-10.2) 9.5 mg/dL Δ 11/17/24 Phosphorus, (2.7-4.5) 2.8 mg/dL 11/03/24 Urine Protein, (Neg-Trace) Negative mg/dL 11/15/24 Assessment & Plan Assessment & Plan (1) Hyponatremia: Code(s): E87.1 - Hypo-osmolality and hyponatremia Category: Medical Plan Hyponatremia likely secondary to SIADH from psychiatric medications, psychiatric conditions themselves may also be triggering inappropriate ADH release so recommend continuing medications as prescribed. Recommend 1.5L/24 hour fluid restriction. Recommend continuing 2grams salt tablets TID Please get labs done today- serum sodium check, as well as urine sodium urine osm Please also get repeat labs (urine, blood) prior to next appointment in 2-3 weeks Orders: Orders Sodium Urine Random Today E87.1 - Hypo-osmolality and hyponatremia Osmolality Urine Today E87.1 - Hypo-osmolality and hyponatremia Osmolality Urine 2 Weeks E87.1 - Hypo-osmolality and hyponatremia Basic Metabolic Panel Today E87.1 - Hypo-osmolality and hyponatremia, N18.30 - Chronic kidney disease, stage 3 unspecified Sodium Urine Random 2 Weeks E87.1 - Hypo-osmolality and hyponatremia Basic Metabolic Panel 2 Weeks E87.1 - Hypo-osmolality and hyponatremia, N18.30 - Chronic kidney disease, stage 3 unspecified Coding Level of Care Code Est Pt Level 3 (15311) Diagnoses Hyponatremia E87.1
[2024-11-18 11:17] VITALS: BP 120/76
--- OUTSIDE RECORDS SUMMARY | 2024-11-18 12:21 | XMS_ITS | Clinical Summary ---
Author Organization [facility] Address [address] [place] [address] Phone Care Team Providers Care Grain Buyer Name Role Phone Unavailable Primary Care Provider [...] patient's age to complete this topic Insurance [facility] ([id number]) [facility] ([id number])
--- OUTSIDE RECORDS SUMMARY | 2024-11-18 12:21 | XMS_ITS | Encounter Summary ---
Author Organization [facility] Address [address] [place] [address] Care Team Providers Care Coder Name Role Phone Geena Lee MD Primary Care Provider + Encounter Details Date Type Department Care Team (Late st Contact Info) Description 04/16/2024 Lab Requisition [facility] - Main Lab [address] [place] [address] Geena Lee MD [address] [phone] Hyperlipidemia, unspecified; Essential (primary) hypertension Social History [...] LAB CHEMISTRY METHOD 04/18/2024 12:51 PM EST [facility] Potassium 4.0 3.5 - 5.5 mmol/L LAB CHEMISTRY METHOD 04/18/2024 12:51 PM [facility] LAB Chloride 97 96 - 110 mmol/L LAB CHEMISTRY METHOD 04/18/2024 12:51 PM [facility] LAB CO2 29 21 - 32 mmol/L LAB CHEMISTRY METHOD 04/18/2024 12:51 PM [facility] LAB Anion Gap 6 3 - 11 LAB CHEMISTRY METHOD 04/18/2024 12:51 PM [facility] LAB Glucose 87 70 - 100 mg/dL LAB CHEMISTRY METHOD 04/18/2024 12:51 PM [facility] LAB BUN 15 5 - 25 mg/dL LAB CHEMISTRY METHOD 04/18/2024 12:51 PM [facility] LAB Creatinine 0.84 0.70 - 1.30 mg/dL LAB CHEMISTRY METHOD 04/18/2024 12:51 PM [facility] LAB eGFR 95 >=60 mL/min/1. 73m2 LAB CHEMISTRY METHOD 04/18/2024 12:51 PM [facility] LAB Comment:Calculation based on the Chronic Kidney Disease Epidemiology Collaboration (CKD-EPI) equation refit without adjustment for race. BUN/Creatinine Ratio 17.9 LAB CHEMISTRY METHOD 04/18/2024 12:51 PM [facility] LAB Calcium 8.9 8.5 - 10.5 mg/dL LAB CHEMISTRY METHOD 04/18/2024 12:51 PM [facility] LAB Blood Venous blood specimen / Unknown 04/18/2024 8:22 AM EST 04/18/2024 11:52 AM EST us Geena Lee MD LAB BLOOD ORDERABLES Fin al Result [facility] LAB [address] [place] [address], documented in this encounter Visit Diagnoses Diagnosis Hyperlipidemia, unspecified Essential (primary) hypertension Unspecified essential hypertension documented in this encounter Care Teams Coder Relationship Specialty Start Date End Date Geena Lee MD [address] [address] PCP - General Family Medicine 03/20/24 documented as of this encounter
--- OUTSIDE RECORDS SUMMARY | 2024-11-18 12:21 | XMS_ITS | Data Portability ---
Author Organization [employer] [facility] Address [address] [place] [address] Care Team Providers Care Oncology Admin Name Role Phone HIM CCA OTHER Assessment Encounter Date Assessment Date Assessment LastModified by Organization Details LastModified Time 07/02/2023 07/02/2023 I provided real -time medical direction via phone for this encounter, and was available for additional phone based assistance as needed. I have reviewed and agree with the Assessment and Plan as documented by the Cottage Master. We discussed the diagnostic uncertainty of home [...] verbalized understanding of instructions to the medic [email or web address] Not available 07/02/2023 12:20:06 02/21/2024 02/21/2024 As noted, starr durand called to see this patient regarding concerns of lee. Evaluation in the field was performed by my strapper colleague, as noted above, I provided real-time [...] 2023 024 SARI [facility] - [facility], [address] [place] [address], [phone] 13:48:55 BMP, serum or plasma 2023 024 [email or web address] Main - Inst, [address] [place] [address], [phone] 4 12:24:32 Referral None recorded. Procedures None recorded. Surgeries None recorded. Imaging None recorded. Medication Orders furosemide 40 mg tablet 2023 024 [email or web address] [id number], [address] [place], [address], 4 13:34:40 ipratropium 0.5 mg-albutero l 3 mg (2.5 mg base)/3 mL nebulizatio n soln 2023 024 [email or web address] 0 [id number], [address] [place], [address], 4 12:24:32 Lasix 20 mg tablet 2023 024 [email or web address] [id number], [address] [place], [address], 4 12:24:32 Patient TargetsNo targets recorded. Patient InstructionsNo instructions recorded. Reason for Referral None Reported. Results Created Date Observation Date Name Description Value Unit Range Abnormal Flag Note LastModifiedBy Organization Detail LastModifiedTime 07/02/19 24 07/02/2023 BMP, serum or plasm a BUN 17 Not Available Main - Ins jose [address] [place] [address], [address] [place] [address] 07/02/2023 11:10:42 07/02/19 24 07/02/2023 BMP, serum or plasm a Ca Ionize d calcdemetriau m 1.1 Not Available Main - [address], [address] [place] [address] 07/02/2023 11:10:42 07/02/19 24 07/02/2023 BMP, serum or plasm a CI- 9 7 Not Available Main - Ins [address], [address] [place] [address] 07/02/2023 11:10:42 07/02/19 24 07/02/2023 BMP, serum or plasm a CRE 1 Not Available Main - Ins [address], [address] [place] [address] 07/02/2023 11:10:42 07/02/19 24 07/02/2023 BMP, serum or plasm a GLU 91 Not Available [facility] - Ins [address], [address] [place] [address] 07/02/2023 11:10:42 07/02/19 24 07/02/2023 BMP, serum or plasm a K+ 4.1 Not Available Main - Ins [address], [address] [place] [address] 07/02/2023 11:10:42 07/02/19 24 07/02/2023 BMP, serum or plasm a Na+ 133 Not Available [facility] - Ins [address], [address] [place] [address] 07/02/2023 11:10:42 07/02/19 24 07/02/2023 BMP, serum or plasm a tCO2 24 Not Available [facility] - Ins [address], [address] [place] [address] 07/02/2023 11:10:42 Result Notes None recorded. Medical [...] Updated DateTime 07/02/2023 180.34 cm 30.1 kg/m2 74532.23 g Silvina Gramajo MD 30 [facility],[address] [facility], [place], [address], [place] [employer] 07/02/2023 11:27:09 Date Recorded Body temperature Heart rate Oxygen saturation Oxygen saturation in Arterial blood by Pulse oximetry Respiratory rate Systolic And Diastolic Provider Name and Address Organization Details Last Updated DateTime 4 98 [degF] 86 /min 98 % 98 % 20 /min 130/80 mm[Hg] Not Available [employer] - production 4 11:04:34 Date Recorded Oxygen saturation Oxygen saturation in Arterial blood by Pulse oximetry Heart rate Body temperature Respiratory rate Body height Body weight Systolic And Diastolic Provider Name and Address Organization Details Last Updated DateTime 4 94 % 94 % 82 /min 97.3 [degF] 16 /min 177.8 cm 903525. 832 g 124/62 mm[Hg] Not Available [employer] - production 4 10:22:55 Date Recorded Body temperature Heart rate Oxygen saturation Oxygen saturation in Arterial blood by Pulse oximetry Respiratory rate Systolic And Diastolic Provider Name and Address Organization Details Last Updated DateTime 4 98.3 [degF] 65 /min 95 % 95 % 20 /min 116/64 mm[Hg] Not Available [employer] 4 14:20:47 Date Recorded Oxygen saturation Oxygen saturation in Arterial blood by Pulse oximetry Body height Heart rate Body weight Respiratory rate Body temperature Systolic And Diastolic Provider Name and Address Organization Details Last Updated DateTime 4 92 % 92 % 180.34 cm 80 /min 35701.7 68 g 16 /min 97.2 [degF] 152/89 mm[Hg] Not Available [employer] 4 21:45:16 Date Recorded Respiratory rate Body temperature Body weight Oxygen saturation Oxygen saturation in Arterial blood by Pulse oximetry Body height Heart rate Systolic And Diastolic Provider Name and Address Organization Details Last Updated DateTime 4 14 /min 98.4 [degF] 93030.6 g 99 % 99 % 185.42 cm 80 /min 151/85 mm[Hg] Not Available [employer] 4 20:58:10 Social History None recorded. Functional Status None recorded. Mental Status None recorded. Family History Nothing Reported. Medical History No medical history recorded. Past Encounters Encounter ID Performer Location Encounter Start Date Encounter Closed Date Diagnosis/Indication Diagnosis SNOMED-CT Code Diagnosis ICD10 Code Diagnosis Note [id number] Zoltan Roque MD Main - [facility] [address] [place] [phone] 04/02/2022 19:41:20 04/04/2022 11:55:01 Swelling of lower jaw region 757465793 R22.0 This was a challengin g case for [facility] assessment . 66yo man presents with [...] he will call or present to ED. [id number] Lev Butts MD [facility] - [address] [phone] 10/21/2022 14:55:12 10/22/2022 10:13:01 Chronic obstructive pulmonary disease 06593537 J44.9 This 67-year-ol d male with COPD called [facility] wondering if he needs more steroids. He recently completed a course of oral steroids. I recommende d that hs continue with his current treatments and follow-up with his PCP. The patient agreed with this plan. [id number] Elba Avila MD [facility] - [address] [phone] 04/22/2023 16:01:46 04/25/2023 12:18:54 Chronic obstructive pulmonary disease [id number] J44.9 Evaluation in the field was performed by my strapper colleague, as noted above, I provided real-time direction and supervisio n for this visit. 67yo M PMHx COPD, CHF, HTN p/w ongoing cough after recent RSV PNA. No ongoing fevers. On strapper assessment VS notable for sat 94% RA, [...] shortness of breath, cough, chest pain, fever. [id number] Silvina Gramajo MD Main - [facility] [address] [place] [phone] 05/07/2023 19:03:29 05/08/2023 17:40:31 Dyspnea 307260947 R06.00 Status post DuoNeb wheezing cleared patient [...] follow-up with his PCP note sent to care information associate via [facility] [id number] Silvina Gramajo MD Main - [address] [phone] 07/02/2023 11:04:28 07/02/2023 16:34:14 Dyspnea 605303752 R06.00 Status post DuoNeb wheezing unchanged- more [...] morning note sent to CP via CRC [id number] Robin Cristina MD Main - [facility] [address] [place] [phone] 07/29/2023 10:22:53 07/31/2023 13:08:55 Dyspnea 346488761 R06.00 Mild swelling and slight volume overload. Has been taking Lasix 20mg PO PRN. Took 20mg PO this AM. Given weight is increased, will give additional 40mg PO x1 now. Advised to call back if weight increasing despite 20mg PO Lasix. BMP wnl. Discussed red flag signs for which to seek higher level of care. [id number] Lev Butts MD Main - [facility] [address] [place] [phone] 09/07/2023 14:20:45 09/07/2023 22:09:07 Hyponatremia 04605570 E87.1 This 68-year-ol d male has a history of hyponatrem ia and he is taking oral sodium chloride. Today his sodium is 128. I recommende d he continue his current medication s and follow-up with his PCP. The patient's caregivers agreed with this plan. [id number] Lev Butts MD Main - [facility] [address] [place] [phone] 10/19/2023 21:45:06 10/20/2023 17:24:34 Hyponatremia [id number] E87.1 This 68-year-ol d male has a history of hyponatrem ia and he is taking oral sodium chloride. His sodium has dropped from yesterday. I ordered normal saline one liter IV. He should have have repeat lab in one to two days. The patient agreed with this plan. [id number] Chiqui Mcneil MD Main - [facility] [address] [place] [phone] 02/21/2024 20:58:08 02/22/2024 11:47:02 Chronic hyponatremia 10544977 E87.1 Health Concerns Section Related Observation LastModified by Organization Detai ls LastModified Time None Recorded Concern Status LastModified by Organization Details LastModified Time None Recorded Advance Directives Directive None Recorded Payers Insurance Date Sequence Insurance Name Policy Number Policy Myers Covered Member ID Myers Member ID Guarantor Name 10/21/2022 1 [facility] DOS PRIOR TO 2022 - DUAL ELIGIBLE (MEDICARE REPLACEMENT/ADV ANTAGE - HMO) Alberto Levi [id number] Alberto Levi 02/22/2024 1 [facility] - DOS ON OR AFTER 2022 - DUAL ELIGIBLE - SENIOR LIVING OPTIONS AND ONE CARE (MEDICARE REPLACEMENT/ADV ANTAGE - HMO) Alberto Levi [id number] Alberto Levi
== END 2024-11-18 11:32 | disposition home or self-care (01) ==
PROVIDERS: Visit Provider Nurse Practitioner Family
DX: E87.1 Hypo-osmolality and hyponatremia (principal)
CPT/HCPCS: 99213

== ENCOUNTER → 2024-11-18 11:02 | Outpatient (BNVA) | payer OTHER, SELFPAY | PROVIDERS: Visit Provider Nurse Practitioner Family | DX: E87.1 Hypo-osmolality and hyponatremia (principal) | CPT/HCPCS: 99212 ==

== ENCOUNTER → 2024-11-26 09:55 | Outpatient (REF) | payer OTHER, SELFPAY ==
--- NOTE | ~2024-11-26 | NM_ITS ---
Lexiscan Myocardial perfusion study Indication: Coronary artery disease, preoperative cardiac evaluation Technique: The patient was brought in for a Lexiscan perfusion study on 11/26/2024 and was injected 0.4 mg of Lexiscan intravenously. Within a minute of this injection 35 mCi of sestamibi was given intravenously. Images were obtained using the SPECT gamma camera interlaced with the gating device. Images were obtained in supine position. Resting perfusion study was performed on 11/29/2024. Patient was administered 35 mCi of sestamibi intravenously at rest. Images were then obtained in supine position. Total DLP 48 mGy-cm. Images were processed with the software and compared side to side in short axis, horizontal long axis and vertical long axis views. Findings: Raw aquisition reviewed. The stress perfusion study showed markedly diminished tracer uptake along the inferolateral wall. Mildly reduced tracer uptake in the distal part of anterior septum. With CT attenuation correction, there changes. The gated study shows diminished LV systolic function with calculated LVEF of 44%. LV cavity is dilated in size. The gated study shows reduced contractility in the inferolateral wall and distal anterior septum. Resting study shows diminished tracer uptake in the inferolateral wall and possibly the distal anterior septum. With CT attenuation correction, there is overall decreased uptake globally and hence most likely artifactual. Gating at rest reveals reduced contractility inferolateral wall and distal anterior septum. The findings are consistent with fixed defects in the inferolateral wall; distal anterior septum. No clear reversible defects. NM/NM cardiolite stress test Impression: 1. Myocardial perfusion imaging study shows prior transluminal infarct in the inferolateral wall. Possible nontransmural infarct in the distal anterior septum vs artifactual. 2. Gated LVEF is 44% during stress and 41% during rest. Correlate with echocardiogram. 3. Transient ischemic dilatation ratio 1.19. EKG component of the test reported separately. Electronically signed by: Rayray hSah MD 12/01/2024 09:21 AM EDT
--- OUTSIDE RECORDS SUMMARY | 2024-11-26 10:23 | XMS_ITS | Clinical Summary ---
Author Organization [facility] Address [address] [facility] [address] [phone] Phone Care Team Providers Care Operations Research Scientist Name Role Phone Unavailable Primary Care Provider [...] patient's age to complete this topic Insurance [facility] ([id number]) [facility] ([id number])
--- OUTSIDE RECORDS SUMMARY | 2024-11-26 10:23 | XMS_ITS | Encounter Summary ---
Author Organization [facility] Address [address] [place] [address] Care Team Providers Care Pen Tester Name Role Phone Geena Lee MD Primary Care Provider + Encounter Details Date Type Department Care Team (Late st Contact Info) Description 04/16/2024 Lab Requisition [facility] - Main Lab [address] [place] [address] Geena Lee MD [address] [phone] Hyperlipidemia, unspecified; Essential (primary) hypertension Social History [...] CHEMISTRY METHOD 04/18/2024 12:51 PM EST [facility] LAB Potassium 4.0 3.5 - 5.5 mmol/L LAB CHEMISTRY METHOD 04/18/2024 12:51 PM [facility] LAB Chloride 97 96 - 110 mmol/L LAB CHEMISTRY METHOD 04/18/2024 12:51 PM [facility] LAB CO2 29 21 - 32 mmol/L LAB CHEMISTRY METHOD 04/18/2024 12:51 PM [facility] LAB Anion Gap 6 3 - 11 LAB CHEMISTRY METHOD 04/18/2024 12:51 PM [facility] LAB Glucose 87 70 - 100 mg/dL LAB CHEMISTRY METHOD 04/18/2024 12:51 PM [facility] LAB BUN 15 5 - 25 mg/dL LAB CHEMISTRY METHOD 04/18/2024 12:51 PM [facility] LAB Creatinine 0.84 0.70 - 1.30 mg/dL LAB CHEMISTRY METHOD 04/18/2024 12:51 PM [facility] LAB eGFR 95 >=60 mL/min/1. 73m2 LAB CHEMISTRY METHOD 04/18/2024 12:51 PM [facility] LAB Comment:Calculation based on the Chronic Kidney Disease Epidemiology Collaboration (CKD-EPI) equation refit without adjustment for race. BUN/Creatinine Ratio 17.9 LAB CHEMISTRY METHOD 04/18/2024 12:51 PM [facility] LAB Calcium 8.9 8.5 - 10.5 mg/dL LAB CHEMISTRY METHOD 04/18/2024 12:51 PM [facility] LAB Blood Venous blood specimen / Unknown 04/18/2024 8:22 AM EST 04/18/2024 11:52 AM EST us Geena Lee MD LAB BLOOD ORDERABLES Fin al Result [facility] LAB [address] [place] [address], documented in this encounter Visit Diagnoses Diagnosis Hyperlipidemia, unspecified Essential (primary) hypertension Unspecified essential hypertension documented in this encounter Care Teams Pen Tester Relationship Specialty Start Date End Date Geena Lee MD [address] [address] PCP - General Family Medicine 03/20/24 documented as of this encounter
--- NOTE | 2024-11-26 11:17 | CA_ITS ---
Acquisition Time: 2024-11-26 10:18:02 Total Exercise Time: 00:02:00 Test Indications: CAD/CABG,Pre-Op Evaluation Medications: SEE DISCHARGE SUMMARY Protocol: LEXISCAN Max HR: 87 BPM 57% of Pred: 151 BPM Max BP: 134/78 mmHG Max Work Load: 1.0 METS Pharmacological stress test with Lexiscan while pt moves his arms, with reports of SOB, no chest pain, with isolated PVCs, with normotensive response to injection. Nondiagnostic eKG for ischemia. In recovery, pt treated with IVP Aminophylline 75 mg to revers eLexiscan after which pt feeling back to baseline. Nuclear images pending. Test reviewed with Dr. Shah. Referred By: Rayray Shah Electronically Signed By: Artem Sanders
== END ==
LOC: HO.CARD 09:55
PROVIDERS: PCP Internal Medicine; Visit Provider Internal Medicine
DX: Z01.810 Encounter for preprocedural cardiovascular examination (principal); R07.2 Precordial pain; Z95.1 Presence of aortocoronary bypass graft
CPT/HCPCS: 78452; 93017; A9500; J0280; J2785

== ENCOUNTER → 2024-11-26 11:17 | Outpatient (BNV) | payer OTHER, SELFPAY | PROVIDERS: PCP Internal Medicine | DX: I21.29 ST elevation (STEMI) myocardial infarction involving other sites (principal) | CPT/HCPCS: 78452; 93016; 93018 ==

== ENCOUNTER 2024-12-09 10:56 | Outpatient (AMB) | payer OTHER, SELFPAY ==
--- NOTE | 2024-12-09 10:58 | HO.NEPHOV_ITS ---
Vital Signs 12/09/24 11:02 Height 5 ft 10 in BP 110/54 L Blood Pressure Location Rt brachial Position Supine Intake Visit Reasons: 2-3 weeks fu/ LVM Office Lead Required: No Accompanied by: EMT ambulance Allergies No Known Allergies Allergy (Verified 12/09/24 11:06) HPI Comments Details: 69 y/o male with a medical history of schizophrenia, afib, CAD, SIADH, COPD, CHF, TIA, history of alcohol abuse. Currently in rehab, patient reports he lives with his niece when home and she helps care for him. He arrived here on stretcher via ambulance. Here for 2 week return for hyponatremia. sodium has improved from 127 on 12/02 to 131 on 12/05. Urine osm and urine sodium lab work that was ordered was not completed. he is taking 2 grams salt tablets BID. Takes divalproex for management of schizoaffective disorder; also takes trazodone. Patient reports he is not aware of how much fluid to drink. States he is feeling well and denies nausea, vomiting, diarrhea, dizziness, weakness, muscle cramping or other symptoms. Denies excessive urination/urinary frequency. States he feels tired and wants to go home. BMP was completed but urine osm/urine sodium were not completed. [facility] Medical History Atrial flutter Ischemic cardiomyopathy Former smoker SIADH (syndrome of inappropriate ADH production) Paroxysmal atrial fibrillation Mood disorder Heart failure COPD (chronic obstructive pulmonary disease) Hypertension Hyperlipidemia TIA (transient ischemic attack) Encounter to establish care Surgical History Status post hip surgery S/P CABG x 3 Social History Household Members: Other Household Members Other:: Niece and her daughter Housing: Other Housing Other:: [facility] Do you presently have visiting nurse or other home services: No Unable to assess alcohol history related to: Unknown Alcohol intake: former Patient Tobacco Use Status: Tobacco use Unknown Tobacco use type: Cigarette Cigarette Packs Per Day: 1 Cigarettes Per Day: 20 Years Smoked: 53 years e-Cigarette/Vaping Use: Never Used Second Hand Smoke Exposure: No Substance Use Type: Crack/Cocaine and Marijuana Advance Directives Date on File: 02/17/23 service: No Current occupational status: retired Sexual orientation: Straight/Heterosexual Cognitive needs: Yes Hearing needs: No Vision needs: Yes (Glasses) Review of Systems Const All systems reviewed & are unremarkable except as noted in HPI and below Physical Exam Const General: no acute distress, alert and awake Resp Effort & Inspection: normal respiratory effort and able to speak in complete sentences Auscultation: clear to auscultation bilaterally Cardio Rate: regular rate Rhythm: regular rhythm Heart sounds: S1 normal heart sound present and S2 normal heart sound present GI Palpation (GI): Soft to palpation and nontender General: Yes no CVA tenderness Back/Spine/Pelvis Back: no CVA tenderness Skin Rashes: no rashes Extrem General: No edema Results Reviewed Nephrology Results: Hgb, (14.0-18.0) 10.2 g/dl L 11/16/24 WBC, (4.8-10.8) 4.8 X10*3/uL 11/16/24 Plt Count, (160-400) 193 X10*3/uL 11/16/24 Sodium, (135-145) 127 mmol/L L 11/17/24 Potassium, (3.3-5.1) 4.5 mmol/L 11/17/24 Chloride, (96-108) 96 mmol/L 11/17/24 Carbon Dioxide, (22-29) 23 mmol/L 11/17/24 BUN, (9-16) 27 mg/dL H 11/17/24 Creatinine, (0.5-1.4) 0.69 mg/dL 11/17/24 Calcium, (8.4-10.2) 9.5 mg/dL Δ 11/17/24 Urine Protein, (Neg-Trace) Negative mg/dL 11/15/24 Assessment & Plan Assessment & Plan (1) Hyponatremia: Code(s): E87.1 - Hypo-osmolality and hyponatremia Category: Medical Plan Hyponatremia likely secondary to SIADH from psychiatric medications, psychiatric conditions themselves may also be triggering inappropriate ADH release so recommend continuing medications as prescribed. Recommend 1.5L/24 hour fluid restriction. Will decrease sodium chloride tablets to 1gram PO BID from 2grams BID given improvement. He will follow up in the office in 1 month, labs prior. Orders: Orders Basic Metabolic Panel Today E87.1 - Hypo-osmolality and hyponatremia, N18.30 - Chronic kidney disease, stage 3 unspecified Osmolality Urine 1 Month E87.1 - Hypo-osmolality and hyponatremia Basic Metabolic Panel 1 Month E87.1 - Hypo-osmolality and hyponatremia, N18.30 - Chronic kidney disease, stage 3 unspecified Sodium Urine Random 1 Month E87.1 - Hypo-osmolality and hyponatremia Coding Level of Care Code Est Pt Level 3 (57453) Diagnoses Hyponatremia E87.1
[2024-12-09 11:02] VITALS: BP 110/54
--- OUTSIDE RECORDS SUMMARY | 2024-12-09 12:05 | XMS_ITS | Encounter Summary ---
Author Organization [facility] Address [address] [place] [address] Care Team Providers Care Hearing Aid Assistant Name Role Phone Geena Lee MD Primary Care Provider + Encounter Details Date Type Department Care Team (Late st Contact Info) Description 04/16/2024 Lab Requisition [facility] - Main Lab [address] [place] [address] Geena Lee MD [address] [phone] Hyperlipidemia, unspecified; Essential (primary) hypertension Social History [...] LAB CHEMISTRY METHOD 04/18/2024 12:51 PM EST [facility] Potassium 4.0 3.5 - 5.5 mmol/L LAB CHEMISTRY METHOD 04/18/2024 12:51 PM EST [facility] LAB Chloride 97 96 - 110 mmol/L LAB CHEMISTRY METHOD 04/18/2024 12:51 PM [facility] LAB CO2 29 21 - 32 mmol/L LAB CHEMISTRY METHOD 04/18/2024 12:51 PM [facility] LAB Anion Gap 6 3 - 11 LAB CHEMISTRY METHOD 04/18/2024 12:51 PM [facility] LAB Glucose 87 70 - 100 mg/dL LAB CHEMISTRY METHOD 04/18/2024 12:51 PM [facility] LAB BUN 15 5 - 25 mg/dL LAB CHEMISTRY METHOD 04/18/2024 12:51 PM [facility] LAB Creatinine 0.84 0.70 - 1.30 mg/dL LAB CHEMISTRY METHOD 04/18/2024 12:51 PM [facility] LAB eGFR 95 >=60 mL/min/1. 73m2 LAB CHEMISTRY METHOD 04/18/2024 12:51 PM [facility] LAB Comment:Calculation based on the Chronic Kidney Disease Epidemiology Collaboration (CKD-EPI) equation refit without adjustment for race. BUN/Creatinine Ratio 17.9 LAB CHEMISTRY METHOD 04/18/2024 12:51 PM [facility] LAB Calcium 8.9 8.5 - 10.5 mg/dL LAB CHEMISTRY METHOD 04/18/2024 12:51 PM [facility] LAB Blood Venous blood specimen / Unknown 04/18/2024 8:22 AM EST 04/18/2024 11:52 AM EST us Geena Lee MD LAB BLOOD ORDERABLES Fin al Result [facility] LAB [address] [place] [address], documented in this encounter Visit Diagnoses Diagnosis Hyperlipidemia, unspecified Essential (primary) hypertension Unspecified essential hypertension documented in this encounter Care Teams Hearing Aid Assistant Relationship Specialty Start Date End Date Geena Lee MD [address] [address] PCP - General Family Medicine 03/20/24 documented as of this encounter
--- OUTSIDE RECORDS SUMMARY | 2024-12-09 12:05 | XMS_ITS | Clinical Summary ---
Author Organization [facility] Address [address] [facility] [address] [place] [address] Phone Care Team Providers Care Child Caregiver Private Home Name Role Phone Unavailable Primary Care Provider [...] patient's age to complete this topic Insurance [facility] ([id number]) [facility] ([id number])
== END 2024-12-09 11:35 | disposition home or self-care (01) ==
PROVIDERS: Visit Provider Nurse Practitioner Family
DX: E87.1 Hypo-osmolality and hyponatremia (principal)
CPT/HCPCS: 99213

== ENCOUNTER → 2024-12-09 10:56 | Outpatient (BNVA) | payer OTHER, SELFPAY | PROVIDERS: Visit Provider Nurse Practitioner Family | DX: E87.1 Hypo-osmolality and hyponatremia (principal) | CPT/HCPCS: 99212 ==

== ENCOUNTER → 2024-12-10 13:57 | Outpatient (REF) | payer OTHER, SELFPAY ==
--- NOTE | 2024-12-10 14:01 | HM_ITS ---
Conclusion: 1. Patient was monitored for total period of 3 days 2. Baseline rhythm was predominantly normal sinus rhythm with average heart rate of 73 beats per minute 3. Intermittent episodes of atrial fibrillation noted with total burden of 1.63% with longest episode of 1 hour and 10 minutes with max heart rate of 101 beats per minute 4. Frequent PVCs noted with total burden of 2.9% with 5 3 beat salvos of nonsustained VT with fastest of 132 beats per minute 5. Frequent PACs noted with total burden of 1.6% 6. No significant pauses noted 7. No patient reported events MTDD
--- NOTE | 2024-12-10 14:01 | CA_ITS ---
Transthoracic Echocardiogram Patient (Last, First, Middle): Alberto Levi, Gender: Male Date of : 1955 Age: 69 Procedure Date: 12/10/2024 Procedure Type: Transthoracic Echocardiogram Location: OP Height: 180.34 cm Weight: 90.27 kg BSA: 2.10 m2 Heart Rate: 69 bpm BP: 110 / 54 mmHg Plate Glass Installer Helper: KARAN Referring MD: Rayray Shah MD Finisher Brush: Olivier Castellanos MD Symptoms: I25.10 and Z95.1 Study Quality: Fair ECG Rhythm: Sinus Conclusions: - 1. Technically limited study patient could not tolerated 2. [id number] LV systolic dysfunction with LVEF of 40-45% with impaired relaxation filling pattern with underlying regional wall motion abnormality, would all finding consistent with ischemic cardiomyopathy 3. Calcified aortic and mitral valve changes noted, with no obvious abnormal Doppler findings on limited Doppler evaluation 4. Upper limits of normal ascending aortic size Findings Procedure Information The quality of the study was technically difficult. The study quality is limited by the patients inability to tolerate the test. Left Ventricle The left ventricle was not well visualized. Normal left ventricular cavity size. There is normal left ventricular wall thickness. The left ventricular systolic function is mild to moderately decreased. The visually estimated ejection fraction is between 40-45%. Spectral Doppler is indicative of an impaired relaxation filling pattern. E/E prime ratio is between 8 and 15 consistent with indeterminate filling pressures. Wall Motion Rest Echo Findings The basal inferoseptal segment is hypokinetic. The anterolateral wall, inferolateral wall, and basal inferior segment are akinetic. The anterior wall is not visualized. All other scored wall segments showed normal motion. Right Ventricle The right ventricle was not well visualized. Atria The left atrium was not well visualized. Interatrial shunt cannot be excluded. The right atrium was not well visualized. Aortic Valve There is mild calcification of the aortic valve. There is no aortic valve stenosis. There is no aortic valve regurgitation. Mitral Valve There is mild anterior and moderate posterior mitral leaflet thickening. There is moderate mitral annular calcification. There is trace mitral valve regurgitation. There is no mitral valve stenosis. Pulmonic Valve The pulmonic valve is likely normal. Tricuspid Valve The tricuspid valve was not well visualized. Tricuspid regurgitation envelope is inadequate for calculation of right ventricular systolic pressure. Indeterminate right atrial pressure. Great Vessels The pulmonary artery was not well visualized. There is mild dilatation of the ascending aorta measuring 3.70 cm. Venous The inferior vena cava was not well visualized. Pericardium/Pleural The pericardium was not well visualized. Prior Study Comparison No prior study available for comparison. Measurements 2D Linear Measurements IVSd: 1.33 0.6-0.9/0.6-1.0 cm LVIDd: 5.26 3.9-5.3/4.2-5.9 cm LVIDd Index: 2.50 2.4-3.2/2.2-3.1 cm/m2 LVIDs: 4.77 2.0-3.6 cm LVPWd: 0.72 0.7-1.1 cm LA Diam: 4.60 2.7-3.8/3.0-4.0 cm LAIDs Index: 2.19 1.5-2.3 cm/m2 LV Mass: 254.56 67-162/88-224 g LV Mass Index: 121.22 43-95/49-115 g/m2 LVOT Diam: 2.40 3.0+(-)1.3 cm 2D Systolic Function EF 4C: 43.80 >55% EF 2C: 47.80 >55% EF BiP: 45.50 >55% Mitral Valve MV Pk E: 0.41 MV PK A: 0.72 MV Decel Time: 338.00 E/A: 0.60 E'Lateral: 9.14 E'Medial: 5.98 E/E' Med: 6.80 E/E' Lat: 4.50 PHT: 99.00 MVA PHT: 2.22 Decel Stewart: 1.20 Aortic Valve AoV Pk Marques: 0.66 AoV Pk Grad: 2.00 MARTINEZ: 4.83 LVOT LVOT Pk Marques: 0.71 LVOT Mn Marques: 0.51 LVOT VTI: 0.11 LVOT Pk Grad: 2.00 LVOT Mn Grad: 1.00 LVOT Diam: 2.40 LVOT Area: 4.52 Diastolic Function MV Pk E: 0.41 MV Pk A: 0.72 E/A: 0.60 E'Medial: 5.98 E/E' Med: 6.80 E' Laterial: 9.14 E/E' Lat: 4.50 Right Ventricle TAPSE (mm): 7.80 TVS' Marques: 6.30 Great Vessels Aorta Sinus of Valsalva: 3.90 2.0-3.5 cm Ao Asc: 3.70 2.1-3.4 cm Pulmonary Valve PV Pk Marques: 0.62 Peak PV Grad: 2.00 Updated in Other Vendor System with Status of Final Olivier Castellanos MD electronically signed on 12/11/2024 1:58:25 PM with status of Final
--- OUTSIDE RECORDS SUMMARY | 2024-12-10 15:16 | XMS_ITS | Clinical Summary ---
Author Organization [facility] Address [address] [facility] [address] [place] [address] Phone Care Team Providers Care Tool Setter Name Role Phone Unavailable Primary Care Provider [...] patient's age to complete this topic Insurance [facility] ([id number]) [facility] ([id number])
--- OUTSIDE RECORDS SUMMARY | 2024-12-10 15:16 | XMS_ITS | Encounter Summary ---
Author Organization [facility] Address [address] [place] [address] Care Team Providers Care Resistor Inspector Name Role Phone Geena Lee MD Primary Care Provider + Encounter Details Date Type Department Care Team (Late st Contact Info) Description 04/16/2024 Lab Requisition [facility] - Main Lab [address] [place] [address] Geena Lee MD [address] [phone] Hyperlipidemia, unspecified; Essential (primary) hypertension Social History [...] LAB CHEMISTRY METHOD 04/18/2024 12:51 PM EST [facility] Potassium 4.0 3.5 - 5.5 mmol/L LAB CHEMISTRY METHOD 04/18/2024 12:51 PM EST [facility] Chloride 97 96 - 110 mmol/L LAB CHEMISTRY METHOD 04/18/2024 12:51 PM [facility] LAB CO2 29 21 - 32 mmol/L LAB CHEMISTRY METHOD 04/18/2024 12:51 PM [facility] LAB Anion Gap 6 3 - 11 LAB CHEMISTRY METHOD 04/18/2024 12:51 PM [facility] LAB Glucose 87 70 - 100 mg/dL LAB CHEMISTRY METHOD 04/18/2024 12:51 PM [facility] LAB BUN 15 5 - 25 mg/dL LAB CHEMISTRY METHOD 04/18/2024 12:51 PM [facility] LAB Creatinine 0.84 0.70 - 1.30 mg/dL LAB CHEMISTRY METHOD 04/18/2024 12:51 PM [facility] LAB eGFR 95 >=60 mL/min/1. 73m2 LAB CHEMISTRY METHOD 04/18/2024 12:51 PM [facility] LAB Comment:Calculation based on the Chronic Kidney Disease Epidemiology Collaboration (CKD-EPI) equation refit without adjustment for race. BUN/Creatinine Ratio 17.9 LAB CHEMISTRY METHOD 04/18/2024 12:51 PM [facility] LAB Calcium 8.9 8.5 - 10.5 mg/dL LAB CHEMISTRY METHOD 04/18/2024 12:51 PM [facility] LAB Blood Venous blood specimen / Unknown 04/18/2024 8:22 AM EST 04/18/2024 11:52 AM EST us Geena Lee MD LAB BLOOD ORDERABLES Fin al Result [facility] [address] [place] [address], documented in this encounter Visit Diagnoses Diagnosis Hyperlipidemia, unspecified Essential (primary) hypertension Unspecified essential hypertension documented in this encounter Care Teams Resistor Inspector Relationship Specialty Start Date End Date Geena Lee MD [address] [phone] PCP - General Family Medicine 03/20/24 documented as of this encounter
== END ==
LOC: HO.CARD 13:57
PROVIDERS: Visit Provider Internal Medicine
DX: I48.0 Paroxysmal atrial fibrillation (principal); I25.10 Atherosclerotic heart disease of native coronary artery without angina pectoris; Z95.1 Presence of aortocoronary bypass graft
CPT/HCPCS: 93242; 93306

== ENCOUNTER → 2024-12-10 14:01 | Outpatient (BNV) | payer OTHER, SELFPAY | PROVIDERS: Visit Provider Internal Medicine Cardiovascular Disease | DX: I34.81 Nonrheumatic mitral (valve) annulus calcification (principal); I35.8 Other nonrheumatic aortic valve disorders | CPT/HCPCS: 93306 ==

== ENCOUNTER 2024-12-19 14:54 | Outpatient (REF) | payer OTHER, SELFPAY ==
--- NOTE | ~2024-12-19 | CT_ITS ---
CLINICAL HISTORY: Z87.891 - Personal history of nicotine dependence Examination CT lung cancer screening History: Screening examination performed for pulmonary nodules Technique: Axial CT images of the chest using low-dose technique. Effective radiation dose total: 103.5 mGy-cm, CTDIvol 2.6 mGy. Referring provider counseled the patient on shared decision-making for LDCT screening. Additional counseling was provided on smoking cessation. Comparison: CT/SR - CT ANGIO CHEST PE PROTOCOL - 11/01/24 18:[address]/SR - CT CHEST W IV CON - 04/20/22 11:22 EST Findings: Lungs: Intrapulmonary lymph node along the right minor fissure measuring 9 mm unchanged (series 4, image 94). Calcified granuloma. Paraseptal emphysema measures up to 2.8 cm. There is advanced destructive centrilobular emphysema in the lung apices. Mild bronchial wall thickening with a mild amount of secretions in the airways, such as in the right lower lobe. Mild amount of scarring, most prominent in the right upper lobe with pleural thickening and a mild amount of honeycombing. Mild increased subpleural reticulation. Coronary artery calcifications: Severe status post CABG. Other: None. Limited upper abdomen: Small hiatal hernia. Impression: LungRADS 2 - Benign Appearance: Continue annual screening with low dose Chest CT in 12 months. ##L2# Category 1: Normal; continue annual screening Category 2: Benign appearance or behavior, continue annual screening Category 3: Probably benign, [address] recommended Category 4A: Suspicious, [address] recommended; may consider PET/CT Category 4B: Suspicious, Additional diagnostics and/or tissue sampling recommended Category 4X: Suspicious, Additional diagnostics and/or tissue sampling recommended Category 0: Recalls (incomplete screen due to Incomplete coverage, Noise, Respiratory motion, Expiration, Obscured by acute abnormality) This document has been electronically signed by: Belem Coe MD on 12/21/2024 19:22:19
--- OUTSIDE RECORDS SUMMARY | 2024-12-19 15:34 | XMS_ITS | Encounter Summary ---
Author Organization [facility] Address [address] [place] [address] Care Team Providers Care Financial Supervisor Name Role Phone Geena Lee MD Primary Care Provider + Encounter Details Date Type Department Care Team (Late st Contact Info) Description 04/04/2024 Lab Requisition [facility] - Main Lab [address] [facility] [place] [address] Geena Lee MD [address] [address] Chronic obstructive pulmonary disease, unspecified (CMS/HCC V24, CMS/HCC V28) Social History Tobacco Use Types Packs/Day Years [...] Procedure Name Priority Date/Time Associated Diagnosis Comments COMPLETE BLOOD COUNT Routine 04/04/2024 6:35 AM EST Chronic obstructive pulmonary disease, unspecified (CMS/HCC) BASIC METABOLIC PANEL Routine 04/04/2024 6:35 AM EST Chronic obstructive pulmonary disease, unspecified (CMS/HCC) documented in this encounter Results * (ABNORMAL) Basic metabolic panel (04/04/2024 6:35 AM EST) Sodium 129(L) 133 - 145 mmol/L LAB CHEMISTRY METHOD 04/04/2024 9:12 AM [facility] LAB Potassium 3.9 3.5 - 5.5 mmol/L LAB CHEMISTRY METHOD 04/04/2024 9:12 AM [facility] LAB Chloride 95(L) 96 - 110 mmol/L LAB CHEMISTRY METHOD 04/04/2024 9:12 AM [facility] LAB CO2 26 21 - 32 mmol/L LAB CHEMISTRY METHOD 04/04/2024 9:12 AM [facility] LAB Anion Gap 8 3 - 11 LAB CHEMISTRY METHOD 04/04/2024 9:12 AM [facility] LAB Glucose 84 70 - 100 mg/dL LAB CHEMISTRY METHOD 04/04/2024 9:12 AM [facility] LAB BUN 12 5 - 25 mg/dL LAB CHEMISTRY METHOD 04/04/2024 9:12 AM [facility] LAB Creatinine 0.51(L) 0.70 - 1.30 mg/dL LAB CHEMISTRY METHOD 04/04/2024 9:12 AM [facility] LAB eGFR 110 >=60 mL/min/1. 73m2 LAB CHEMISTRY METHOD 04/04/2024 9:12 AM [facility] LAB Comment:Calculation based on the Chronic Kidney Disease Epidemiology Collaboration (CKD-EPI) equation refit without adjustment for race. BUN/Creatinine Ratio 23.5 LAB CHEMISTRY METHOD 04/04/2024 9:12 AM [facility] LAB Calcium 8.9 8.5 - 10.5 mg/dL LAB CHEMISTRY METHOD 04/04/2024 9:12 AM [facility] LAB Blood Venous blood specimen / Unknown Venipuncture / Unknown 04/04/2024 6:35 AM EST 04/04/2024 7:25 AM EST us Geena Lee MD LAB BLOOD ORDERABLES Fin al Result [facility] [address] [place] [address], * (ABNORMAL) Complete blood count (04/04/2024 6:35 AM EST) [facility] WBC 6.2 4.8 - 10.8 K/mcL LAB HEMETOLOGY METHOD 04/04/2024 7:50 AM EST [facility] LAB RBC 3.80(L) 4.50 - 5.50 M/mcL LAB HEMETOLOGY METHOD 04/04/2024 7:50 AM [facility] LAB Hemoglobin 12.1(L) 13.5 - 17.5 g/dL LAB HEMETOLOGY METHOD 04/04/2024 7:50 AM [facility] LAB Hematocrit 34.5(L) 42.0 - 54.0 % LAB HEMETOLOGY METHOD 04/04/2024 7:50 AM [facility] LAB MCV 90.6 79.0 - 98.0 FL LAB HEMETOLOGY METHOD 04/04/2024 7:50 AM [facility] LAB MCH 31.8 27.0 - 32.0 pcg LAB HEMETOLOGY METHOD 04/04/2024 7:50 AM [facility] LAB MCHC 35.1 32.0 - 37.0 g/dL LAB HEMETOLOGY METHOD 04/04/2024 7:50 AM [facility] LAB RDW 13.0 11.0 - 15.0 % LAB HEMETOLOGY METHOD 04/04/2024 7:50 AM [facility] LAB Platelets 210 130 - 400 K/mcL LAB HEMETOLOGY METHOD 04/04/2024 7:50 AM [facility] LAB MPV 8.8 7.0 - 11.0 FL LAB HEMETOLOGY METHOD 04/04/2024 7:50 AM [facility] LAB NRBC 0.0 <1.0 % LAB HEMETOLOGY METHOD 04/04/2024 7:50 AM [facility] LAB NRBC Absolute 0.00 <0.10 K/mcL LAB HEMETOLOGY METHOD 04/04/2024 7:50 AM EST [facility] LAB Blood Venous blood specimen / Unknown Venipuncture / Unknown 04/04/2024 6:35 AM EST 04/04/2024 7:25 AM EST us Geena Lee MD LAB BLOOD ORDERABLES Fin al Result [facility] [address] [place] [address], documented in this encounter Visit Diagnoses Diagnosis Chronic obstructive pulmonary disease, unspecified (CMS/HCC V24, CMS/HCC V28) documented in this encounter Care Teams Financial Supervisor Relationship Specialty Start Date End Date Geena Lee MD [address] [place] [phone] PCP - General Family Medicine 03/20/24 documented as of this encounter
--- OUTSIDE RECORDS SUMMARY | 2024-12-19 15:34 | XMS_ITS | Encounter Summary ---
Author Organization [facility] Address [address] [place] [address] Care Team Providers Care Matzo Forming Machine Operator Name Role Phone Geena Lee MD Primary Care Provider + Encounter Details Date Type Department Care Team (Late st Contact Info) Description 04/16/2024 Lab Requisition [facility] - Main Lab [address] [place] [address] Geena Lee MD [address] [phone] Hyperlipidemia, unspecified; Essential (primary) hypertension Social History [...] LAB CHEMISTRY METHOD 04/18/2024 12:51 PM EST [facility] Potassium 4.0 3.5 - 5.5 mmol/L LAB CHEMISTRY METHOD 04/18/2024 12:51 PM EST [facility] LAB Chloride 97 96 - 110 mmol/L LAB CHEMISTRY METHOD 04/18/2024 12:51 PM [facility] LAB CO2 29 21 - 32 mmol/L LAB CHEMISTRY METHOD 04/18/2024 12:51 PM [facility] LAB Anion Gap 6 3 - 11 LAB CHEMISTRY METHOD 04/18/2024 12:51 PM [facility] LAB Glucose 87 70 - 100 mg/dL LAB CHEMISTRY METHOD 04/18/2024 12:51 PM [facility] LAB BUN 15 5 - 25 mg/dL LAB CHEMISTRY METHOD 04/18/2024 12:51 PM [facility] LAB Creatinine 0.84 0.70 - 1.30 mg/dL LAB CHEMISTRY METHOD 04/18/2024 12:51 PM [facility] LAB eGFR 95 >=60 mL/min/1. 73m2 LAB CHEMISTRY METHOD 04/18/2024 12:51 PM [facility] LAB Comment:Calculation based on the Chronic Kidney Disease Epidemiology Collaboration (CKD-EPI) equation refit without adjustment for race. BUN/Creatinine Ratio 17.9 LAB CHEMISTRY METHOD 04/18/2024 12:51 PM [facility] LAB Calcium 8.9 8.5 - 10.5 mg/dL LAB CHEMISTRY METHOD 04/18/2024 12:51 PM [facility] LAB Blood Venous blood specimen / Unknown 04/18/2024 8:22 AM EST 04/18/2024 11:52 AM EST us Geena Lee MD LAB BLOOD ORDERABLES Fin al Result [facility] [address] [place] [address], documented in this encounter Visit Diagnoses Diagnosis Hyperlipidemia, unspecified Essential (primary) hypertension Unspecified essential hypertension documented in this encounter Care Teams Matzo Forming Machine Operator Relationship Specialty Start Date End Date Geena Lee MD [address] [phone] PCP - General Family Medicine 03/20/24 documented as of this encounter
--- NOTE | 2024-12-19 15:35 | PFT_ITS ---
Flows: FEV1: 47 % of predicted at 1.58 L FVC: 69 % of predicted at 3.07 L FEV1/FVC: 51 % Bronchodilator response: Present Volumes: Total lung capacity: 73 % of predicted at 5.39 L Residual volume: 102 % of predicted at 2.64 L Slow vital capacity: 57 % of predicted at 2.75 L Expiratory reserve volume: 20 % of predicted at 0.26 L Diffusion capacity: Severely decreased, adjusts to being moderately decreased after correction for alveolar ventilation. 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 Decreased expiratory reserve volume suggests extrathoracic restriction likely secondary to abdominal obesity. Decreased diffusion capacity suggests emphysema. MTDD
--- OUTSIDE RECORDS SUMMARY | 2024-12-19 15:35 | XMS_ITS | Clinical Summary ---
Author Organization [facility] Address [address] [facility] [address] [place] [address] Phone Care Team Providers Care Automation Consultant Name Role Phone Unavailable Primary Care Provider [...] patient's age to complete this topic Insurance [facility] ([id number]) [facility] ([id number])
--- OUTSIDE RECORDS SUMMARY | 2024-12-19 15:35 | XMS_ITS | Encounter Summary ---
Author Organization [facility] Address [address] [place] [address] Care Team Providers Care Farm Technician Name Role Phone Geena Lee MD Primary Care Provider + Encounter Details Date Type Department Care Team (Late st Contact Info) Description 10/18/2024 Lab Requisition [facility] - Main Lab [address] [place] [address] Geena Lee MD [address] [phone] Essential (primary) hypertension Social History Tobacco Use [...] Associated Diagnosis Comments COMPLETE BLOOD COUNT Routine 10/21/2024 8:12 AM EDT Essential (primary) hypertension COMPREHENSIVE METABOLIC PANEL Routine 10/21/2024 8:12 AM EDT Essential (primary) hypertension documented in this encounter Results * (ABNORMAL) Complete blood count (10/21/2024 8:12 AM EDT) WBC 5.7 4.8 - 10.8 K/[facility] LAB HEMETOLOGY METHOD 10/21/2024 11:01 AM EDT [facility] RBC 3.80(L) 4.50 - 5.50 M/mcL LAB HEMETOLOGY METHOD 10/21/2024 11:01 AM [facility] LAB Hemoglobin 11.3(L) 13.5 - 17.5 g/dL LAB HEMETOLOGY METHOD 10/21/2024 11:01 AM [facility] LAB Hematocrit 34.2(L) 42.0 - 54.0 % LAB HEMETOLOGY METHOD 10/21/2024 11:01 AM [facility] LAB MCV 90.2 79.0 - 98.0 FL LAB HEMETOLOGY METHOD 10/21/2024 11:01 AM [facility] LAB MCH 29.8 27.0 - 32.0 pcg LAB HEMETOLOGY METHOD 10/21/2024 11:01 AM [facility] LAB MCHC 33.0 32.0 - 37.0 g/dL LAB HEMETOLOGY METHOD 10/21/2024 11:01 AM [facility] LAB RDW 13.9 11.0 - 15.0 % LAB HEMETOLOGY METHOD 10/21/2024 11:01 AM [facility] LAB Platelets 196 130 - 400 K/mcL LAB HEMETOLOGY METHOD 10/21/2024 11:01 AM [facility] LAB MPV 9.7 7.0 - 11.0 FL LAB HEMETOLOGY METHOD 10/21/2024 11:01 AM [facility] LAB NRBC 0.0 <1.0 % LAB HEMETOLOGY METHOD 10/21/2024 11:01 AM [facility] LAB NRBC Absolute 0.00 <0.10 K/mcL LAB HEMETOLOGY METHOD 10/21/2024 11:01 AM [facility] LAB Blood Venous blood specimen / Unknown Venipuncture / Unknown 10/21/2024 8:12 AM EDT 10/21/2024 10:06 AM EDT us Geena Lee MD LAB BLOOD ORDERABLES Fin al Result [facility] [address] [place] [address], [place] [phone] * (ABNORMAL) Comprehensive metabolic panel (10/21/2024 8:12 AM EDT) Sodium 125(L) 133 - 145 mmol/L LAB CHEMISTRY METHOD 10/21/2024 11:24 AM [facility] LAB Potassium 4.0 3.5 - 5.5 mmol/L LAB CHEMISTRY METHOD 10/21/2024 11:24 AM [facility] LAB Chloride 88(L) 96 - 110 mmol/L LAB CHEMISTRY METHOD 10/21/2024 11:24 AM [facility] LAB CO2 28 21 - 32 mmol/L LAB CHEMISTRY METHOD 10/21/2024 11:24 AM [facility] LAB Anion Gap 9 3 - 11 LAB CHEMISTRY METHOD 10/21/2024 11:24 AM [facility] LAB Glucose 70 70 - 100 mg/dL LAB CHEMISTRY METHOD 10/21/2024 11:24 AM [facility] LAB BUN 10 5 - 25 mg/dL LAB CHEMISTRY METHOD 10/21/2024 11:24 AM [facility] LAB Creatinine 0.68(L) 0.70 - 1.30 mg/dL LAB CHEMISTRY METHOD 10/21/2024 11:24 AM [facility] LAB eGFR 101 >=60 mL/min/1. 73m2 LAB CHEMISTRY METHOD 10/21/2024 11:24 AM [facility] LAB Comment:Calculation based on the Chronic Kidney Disease Epidemiology Collaboration (CKD-EPI) equation refit without adjustment for race. BUN/Creatinine Ratio 14.7 LAB CHEMISTRY METHOD 10/21/2024 11:24 AM [facility] LAB Calcium 8.7 8.5 - 10.5 mg/dL LAB CHEMISTRY METHOD 10/21/2024 11:24 AM EDT [facility] AST (SGOT) 19 10 - 42 unit/L LAB CHEMISTRY METHOD 10/21/2024 11:24 AM T [facility] ALT (SGPT) 11 10 - 60 unit/L LAB CHEMISTRY METHOD 10/21/2024 11:24 AM EDT [facility] Alkaline Phosphatase 95 42 - 121 unit/L LAB CHEMISTRY METHOD 10/21/2024 11:24 AM T [facility] Total Protein 7.4 6.0 - 8.0 g/dL LAB CHEMISTRY METHOD 10/21/2024 11:24 AM [facility] Albumin 3.3 3.2 - 5.0 g/dL LAB CHEMISTRY METHOD 10/21/2024 11:24 AM [facility] Total Bilirubin 0.6 0.0 - 1.4 mg/dL LAB CHEMISTRY METHOD 10/21/2024 11:24 AM T [facility] LAB Blood Venous blood specimen / Unknown Venipuncture / Unknown 10/21/2024 8:12 AM EDT 10/21/2024 10:06 AM EDT us Geena Lee MD LAB BLOOD ORDERABLES Fin al Result [facility] [address] [place] [address], documented in this encounter Visit Diagnoses Diagnosis Essential (primary) hypertension Unspecified essential hypertension documented in this encounter Care Teams Farm Technician Relationship Specialty Start Date End Date Geena Lee MD [address] [place] [phone] PCP - General Family Medicine 03/20/24 documented as of this encounter
--- OUTSIDE RECORDS SUMMARY | 2024-12-19 15:35 | XMS_ITS | Encounter Summary ---
Author Organization [facility] Address [address] [place] [address] Care Team Providers Care Bank Secrecy Act Officer Name Role Phone Geena Lee MD Primary Care Provider + Encounter Details Date Type Department Care Team (Late st Contact Info) Description 09/13/2024 Lab Requisition [facility] - Main Lab [address] [place] [address] Geena Lee MD [address] [address] Essential (primary) hypertension Social History Tobacco Use [...] Associated Diagnosis Comments COMPLETE BLOOD COUNT Routine 09/13/2024 7:48 AM EDT Essential (primary) hypertension BASIC METABOLIC PANEL Routine 09/13/2024 7:48 AM EDT Essential (primary) hypertension documented in this encounter Results * (ABNORMAL) Basic metabolic panel (09/13/2024 7:48 AM EDT) Sodium 126(L) 133 - 145 mmol/L LAB CHEMISTRY METHOD 09/13/2024 1:09 PM EDT [facility] Potassium 3.7 3.5 - 5.5 mmol/L LAB CHEMISTRY METHOD 09/13/2024 1:09 PM [facility] Chloride 92(L) 96 - 110 mmol/L LAB CHEMISTRY METHOD 09/13/2024 1:09 PM [facility] CO2 22 21 - 32 mmol/L LAB CHEMISTRY METHOD 09/13/2024 1:09 PM [facility] Anion Gap 12(H) 3 - 11 LAB CHEMISTRY METHOD 09/13/2024 1:09 PM [facility] Glucose 59(L) 70 - 100 mg/dL LAB CHEMISTRY METHOD 09/13/2024 1:09 PM [facility] BUN 14 5 - 25 mg/dL LAB CHEMISTRY METHOD 09/13/2024 1:09 PM [facility] Creatinine 0.65(L) 0.70 - 1.30 mg/dL LAB CHEMISTRY METHOD 09/13/2024 1:09 PM [facility] eGFR 102 >=60 mL/min/1. 73m2 LAB CHEMISTRY METHOD 09/13/2024 1:09 PM [facility] Comment:Calculation based on the Chronic Kidney Disease Epidemiology Collaboration (CKD-EPI) equation refit without adjustment for race. BUN/Creatinine Ratio 21.5 LAB CHEMISTRY METHOD 09/13/2024 1:09 PM [facility] Calcium 9.1 8.5 - 10.5 mg/dL LAB CHEMISTRY METHOD 09/13/2024 1:09 PM [facility] Blood Venous blood specimen / Unknown Venipuncture / Unknown 09/13/2024 7:48 AM EDT 09/13/2024 10:34 AM EDT us Geena Lee MD LAB BLOOD ORDERABLES Fin al Result [facility] [address] [place] [address], [place] [phone] * (ABNORMAL) Complete blood count (09/13/2024 7:48 AM EDT) [facility] WBC 5.4 4.8 - 10.8 K/mcL LAB HEMETOLOGY METHOD 09/13/2024 11:19 AM [facility] RBC 4.20(L) 4.50 - 5.50 M/mcL LAB HEMETOLOGY METHOD 09/13/2024 11:19 AM [facility] Hemoglobin 13.7 13.5 - 17.5 g/dL LAB HEMETOLOGY METHOD 09/13/2024 11:19 AM [facility] Hematocrit 38.2(L) 42.0 - 54.0 % LAB HEMETOLOGY METHOD 09/13/2024 11:19 AM [facility] MCV 90.5 79.0 - 98.0 FL LAB HEMETOLOGY METHOD 09/13/2024 11:19 AM [facility] MCH 32.5(H) 27.0 - 32.0 pcg LAB HEMETOLOGY METHOD 09/13/2024 11:19 AM [facility] MCHC 35.9 32.0 - 37.0 g/dL LAB HEMETOLOGY METHOD 09/13/2024 11:19 AM [facility] RDW 13.2 11.0 - 15.0 % LAB HEMETOLOGY METHOD 09/13/2024 11:19 AM [facility] Platelets 190 130 - 400 K/mcL LAB HEMETOLOGY METHOD 09/13/2024 11:19 AM [facility] MPV 9.1 7.0 - 11.0 FL LAB HEMETOLOGY METHOD 09/13/2024 11:19 AM [facility] NRBC 0.0 <1.0 % LAB HEMETOLOGY METHOD 09/13/2024 11:19 AM [facility] NRBC Absolute 0.00 <0.10 K/mcL LAB HEMETOLOGY METHOD 09/13/2024 11:19 AM EDT [facility] Blood Venous blood specimen / Unknown Venipuncture / Unknown 09/13/2024 7:48 AM EDT 09/13/2024 10:34 AM EDT us Geena Lee MD LAB BLOOD ORDERABLES Fin al Result [facility] [address] [place] [address], documented in this encounter Visit Diagnoses Diagnosis Essential (primary) hypertension Unspecified essential hypertension documented in this encounter Care Teams Bank Secrecy Act Officer Relationship Specialty Start Date End Date Geena Lee MD [address] [address] PCP - General Family Medicine 03/20/24 documented as of this encounter
--- OUTSIDE RECORDS SUMMARY | 2024-12-19 15:35 | XMS_ITS | Encounter Summary ---
Author Organization [facility] Address [address] [place] [address] Care Team Providers Care Stripper And Taper Name Role Phone Geena Lee MD Primary Care Provider + Encounter Details Date Type Department Care Team (Late st Contact Info) Description 11/01/[address] [facility] - Main Lab 299 [facility] [employer] [phone] Geena Lee MD [address] [address] Essential (primary) hypertension Social History Tobacco Use [...] on file documented as of this encounter Visit Diagnoses Diagnosis Essential (primary) hypertension Unspecified essential hypertension documented in this encounter Care Teams Stripper And Taper Relationship Specialty Start Date End Date Geena Lee MD [address] [address] PCP - General Family Medicine 03/20/24 documented as of this encounter
--- OUTSIDE RECORDS SUMMARY | 2024-12-19 15:35 | XMS_ITS | Encounter Summary ---
Author Organization [facility] Address [address] [place] [address] Care Team Providers Care Telecommunication Operator Name Role Phone Geena Lee MD Primary Care Provider + Encounter Details Date Type Department Care Team (Late st Contact Info) Description 09/05/2024 Lab Requisition [facility] - Main Lab [address] [place] [address] Geena Lee MD [address] [address] Essential (primary) hypertension; Unspecified atrial fibrillation (CMS/HCC V24, CMS/HCC V28); Chronic kidney disease, unspecified Social History Tobacco Use Types Packs/Day Years [...] Procedure Name Priority Date/Time Associated Diagnosis Comments SODIUM Routine 09/06/2024 7:32 AM EDT Essential (primary) hypertension Unspecified atrial fibrillation (CMS/HCC V24, CMS/HCC V28) Chronic kidney disease, unspecified documented in this encounter Results * (ABNORMAL) Sodium (09/06/2024 7:32 AM EDT) Sodium 127(L) 133 - 145 mmol/L LAB CHEMISTRY METHOD 09/06/2024 10:18 AM EDT [facility] Blood Venous blood specimen / Unknown Venipuncture / Unknown 09/06/2024 7:32 AM EDT 09/06/2024 9:36 AM EDT us Geena Lee MD LAB BLOOD ORDERABLES Fin al Result [facility] [address] [place] [address], documented in this encounter Visit Diagnoses Diagnosis Essential (primary) hypertension Unspecified essential hypertension Unspecified atrial fibrillation (CMS/HCC V24, CMS/HCC V28) Chronic kidney disease, unspecified documented in this encounter Care Teams Telecommunication Operator Relationship Specialty Start Date End Date Geena Lee MD [address] [address] PCP - General Family Medicine 03/20/24 documented as of this encounter
--- OUTSIDE RECORDS SUMMARY | 2024-12-19 15:35 | XMS_ITS | Encounter Summary ---
Author Organization [facility] Address [address] [place] [address] Care Team Providers Care Home Aid Name Role Phone Geena Lee MD Primary Care Provider + Encounter Details Date Type Department Care Team (Late st Contact Info) Description 12/11/2024 Lab Requisition [facility] - Main Lab [address] [place] [address] Geena Lee MD [address] [address] Chronic kidney disease, unspecified; Essential (primary) hypertension Social History Tobacco [...] Priority Date/Time Associated Diagnosis Comments SODIUM Routine 12/12/2024 5:23 AM EDT Chronic kidney disease, unspecified Essential (primary) hypertension documented in this encounter Results * (ABNORMAL) Sodium (12/12/2024 5:23 AM EDT) Sodium 130(L) 133 - 145 mmol/L LAB CHEMISTRY METHOD 12/12/2024 9:46 AM EDT [facility] ([facility]) [facility] Blood Venous blood specimen / Unknown Venipuncture / Unknown 12/12/2024 5:23 AM EDT 12/12/2024 9:12 AM EDT us Genea Lee MD LAB BLOOD ORDERABLES Fin al Result [facility] ([facility]) [facility] [address] [place] [address], documented in this encounter Visit Diagnoses Diagnosis Chronic kidney disease, unspecified Essential (primary) hypertension Unspecified essential hypertension documented in this encounter Care Teams Home Aid Relationship Specialty Start Date End Date Geena Lee MD [address] [place] [address] PCP - General Family Medicine 03/20/24 documented as of this encounter
--- OUTSIDE RECORDS SUMMARY | 2024-12-19 15:35 | XMS_ITS | Encounter Summary ---
Author Organization [facility] [place] Address [address] [place] [address] Care Team Providers Care Steam And Power Superintendent Name Role Phone Elder, Geena Mane MD Primary Care Provider + Encounter Details Date Type Department Care Team (Late st Contact Info) Description 07/15/2024 Lab Requisition [facility] - Main Lab [address] [place] [phone] Marian Rowe NP [address] [place] [address] Vitamin D deficiency, unspecified Social History Tobacco Use Types Packs/Day [...] Procedure Name Priority Date/Time Associated Diagnosis Comments VITAMIN D 25 HYDROXY Routine 07/15/2024 8:38 AM EDT Vitamin D deficiency, unspecified documented in this encounter Results * Vitamin D 25 hydroxy (07/15/2024 8:38 AM EDT) Vit D, 25-Hydroxy 49.6 30.0 - 80.0 ng/mL LAB CHEMISTRY METHOD 07/15/2024 12:01 PM EDT [facility] ([facility]) [facility] Blood Venous blood specimen / Unknown Venipuncture / Unknown 07/15/2024 8:38 AM EDT 07/15/2024 10:44 AM EDT us Marian Rowe MARKETING PRODUCTION COORDINATOR LAB BLOOD ORDERABLES Final Resul t [facility] ([facility]) [facility] [address] [place] [address], documented in this encounter Visit Diagnoses Diagnosis Vitamin D deficiency, unspecified documented in this encounter Care Teams Steam And Power Superintendent Relationship Specialty Start Date End Date Geena Lee MD [address] [place] [address] PCP - General Family Medicine 03/20/24 documented as of this encounter
--- OUTSIDE RECORDS SUMMARY | 2024-12-19 15:35 | XMS_ITS | Encounter Summary ---
Author Organization [facility] Address [address] [place] [address] Care Team Providers Care Navigation Officer Name Role Phone Geena Lee MD Primary Care Provider + Encounter Details Date Type Department Care Team (Late st Contact Info) Description 11/20/2024 Lab Requisition [facility] - Main Lab [address] [facility] [employer] [place] [address] Geena Lee MD [address] [address] Chronic kidney disease, unspecified; Essential (primary) hypertension [...] as of this encounter Visit Diagnoses Diagnosis Chronic kidney disease, unspecified Essential (primary) hypertension Unspecified essential hypertension documented in this encounter Care Teams Navigation Officer Relationship Specialty Start Date End Date Geena Lee MD [address] [address] PCP - General Family Medicine 03/20/24 documented as of this encounter
--- OUTSIDE RECORDS SUMMARY | 2024-12-19 15:35 | XMS_ITS | Encounter Summary ---
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) Social History Tobacco Use Types Packs/Day Years [...] Priority Date/Time Associated Diagnosis Comments SODIUM Routine 11/15/2024 5:14 AM EDT 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) documented in this encounter Results * (ABNORMAL) Sodium (11/15/2024 5:14 AM EDT) Sodium 122(L) 133 - 145 mmol/L LAB CHEMISTRY METHOD 11/15/2024 10:15 AM EDT [facility] ([facility]) [facility] Blood Venous blood specimen / Unknown Venipuncture / Unknown 11/15/2024 5:14 AM EDT 11/15/2024 9:37 AM EDT Geena Lee MD LAB BLOOD ORDERABLES Fin al Result [facility] ([facility]) [facility] [address] [place] [address], documented in this encounter Visit Diagnoses Diagnosis 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
--- OUTSIDE RECORDS SUMMARY | 2024-12-19 15:35 | XMS_ITS | Encounter Summary ---
Author Organization [facility] Address [address] [place] [address] Care Team Providers Care Director Of Clinical Trials Name Role Phone Geena Lee MD Primary Care Provider + Encounter Details Date Type Department Care Team (Late st Contact Info) Description 10/04/2024 Lab Requisition [facility] - Main Lab [address] [place] [address] Geena Lee MD [address] [phone] Essential (primary) hypertension Social History Tobacco Use [...] Associated Diagnosis Comments COMPLETE BLOOD COUNT Routine 10/07/2024 8:24 AM EDT Essential (primary) hypertension COMPREHENSIVE METABOLIC PANEL Routine 10/07/2024 8:24 AM EDT Essential (primary) hypertension documented in this encounter Results * (ABNORMAL) Comprehensive metabolic panel (10/07/2024 8:24 AM EDT) Sodium 124(L) 133 - 145 mmol/L LAB CHEMISTRY METHOD 10/07/2024 11:42 AM EDT [facility] ([facility]) [facility] Potassium 4.0 3.5 - 5.5 mmol/L LAB CHEMISTRY METHOD 10/07/2024 11:42 AM [facility] Chloride 91(L) 96 - 110 mmol/L LAB CHEMISTRY METHOD 10/07/2024 11:42 AM [facility] CO2 27 21 - 32 mmol/L LAB CHEMISTRY METHOD 10/07/2024 11:42 AM [facility] Anion Gap 6 3 - 11 LAB CHEMISTRY METHOD 10/07/2024 11:42 AM [facility] Glucose 88 70 - 100 mg/dL LAB CHEMISTRY METHOD 10/07/2024 11:42 AM [facility] BUN 13 5 - 25 mg/dL LAB CHEMISTRY METHOD 10/07/2024 11:42 AM [facility] Creatinine 0.67(L) 0.70 - 1.30 mg/dL LAB CHEMISTRY METHOD 10/07/2024 11:42 AM [facility] eGFR 101 >=60 mL/min/1. 73m2 LAB CHEMISTRY METHOD 10/07/2024 11:42 AM [facility] Comment:Calculation based on the Chronic Kidney Disease Epidemiology Collaboration (CKD-EPI) equation refit without adjustment for race. BUN/Creatinine Ratio 19.4 LAB CHEMISTRY METHOD 10/07/2024 11:42 AM [facility] Calcium 8.6 8.5 - 10.5 mg/dL LAB CHEMISTRY METHOD 10/07/2024 11:42 AM [facility] AST (SGOT) 11 10 - 42 unit/L LAB CHEMISTRY METHOD 10/07/2024 11:42 AM [facility] ALT (SGPT) 11 10 - 60 unit/L LAB CHEMISTRY METHOD 10/07/2024 11:42 AM [facility] Alkaline Phosphatase 79 42 - 121 unit/L LAB CHEMISTRY METHOD 10/07/2024 11:42 AM [facility] Total Protein 6.7 6.0 - 8.0 g/dL LAB CHEMISTRY METHOD 10/07/2024 11:42 AM T [facility] LAB Albumin 3.2 3.2 - 5.0 g/dL LAB CHEMISTRY METHOD 10/07/2024 11:42 AM EDT [facility] Total Bilirubin 0.6 0.0 - 1.4 mg/dL LAB CHEMISTRY METHOD 10/07/2024 11:42 AM EDT [facility] Blood Venous blood specimen / Unknown Venipuncture / Unknown 10/07/2024 8:24 AM EDT 10/07/2024 10:27 AM EDT us Geena Lee MD LAB BLOOD ORDERABLES Fin al Result [facility] LAB [address] [place] [address], * (ABNORMAL) Complete blood count (10/07/2024 8:24 AM EDT) WBC 4.5(L) 4.8 - 10.8 K/mcL LAB HEMETOLOGY METHOD 10/07/2024 11:09 AM [facility] RBC 3.20(L) 4.50 - 5.50 M/mcL LAB HEMETOLOGY METHOD 10/07/2024 11:09 AM [facility] Hemoglobin 10.0(L) 13.5 - 17.5 g/dL LAB HEMETOLOGY METHOD 10/07/2024 11:09 AM [facility] Hematocrit 30.5(L) 42.0 - 54.0 % LAB HEMETOLOGY METHOD 10/07/2024 11:09 AM [facility] MCV 94.7 79.0 - 98.0 FL LAB HEMETOLOGY METHOD 10/07/2024 11:09 AM [facility] MCH 31.1 27.0 - 32.0 pcg LAB HEMETOLOGY METHOD 10/07/2024 11:09 AM EDT [facility] MCHC 32.8 32.0 - 37.0 g/dL LAB HEMETOLOGY METHOD 10/07/2024 11:09 AM EDT [facility] RDW 15.0 11.0 - 15.0 % LAB HEMETOLOGY METHOD 10/07/2024 11:09 AM EDT [facility] Platelets 217 130 - 400 K/mcL LAB HEMETOLOGY METHOD 10/07/2024 11:09 AM EDT [facility] MPV 9.2 7.0 - 11.0 FL LAB HEMETOLOGY METHOD 10/07/2024 11:09 AM EDT [facility] NRBC 0.0 <1.0 % LAB HEMETOLOGY METHOD 10/07/2024 11:09 AM EDT [facility] NRBC Absolute 0.00 <0.10 K/mcL LAB HEMETOLOGY METHOD 10/07/2024 11:09 AM T [facility] LAB Blood Venous blood specimen / Unknown Venipuncture / Unknown 10/07/2024 8:24 AM EDT 10/07/2024 10:27 AM EDT us Geena Lee MD LAB BLOOD ORDERABLES Fin al Result [facility] [address] [place] [address], documented in this encounter Visit Diagnoses Diagnosis Essential (primary) hypertension Unspecified essential hypertension documented in this encounter Care Teams Director Of Clinical Trials Relationship Specialty Start Date End Date Geena Lee MD [address] [place] [phone] PCP - General Family Medicine 03/20/24 documented as of this encounter
--- OUTSIDE RECORDS SUMMARY | 2024-12-19 15:35 | XMS_ITS | Encounter Summary ---
Author Organization [facility] Address [address] [place] [address] Care Team Providers Care Merchandise Manager Name Role Phone Geena Lee MD Primary Care Provider + Encounter Details Date Type Department Care Team (Late st Contact Info) Description 11/24/2024 Lab Requisition [facility] - Main Lab 299 [facility] [employer] [place] [phone] Geena Lee MD [address] [address] Essential (primary) hypertension Social History Tobacco Use [...] hypertension documented in this encounter Care Teams Merchandise Manager Relationship Specialty Start Date End Date Geena Lee MD [address] [phone] PCP - General Family Medicine 03/20/24 documented as of this encounter
--- OUTSIDE RECORDS SUMMARY | 2024-12-19 15:35 | XMS_ITS | Encounter Summary ---
Author Organization [facility] Address [address] [place] [address] Care Team Providers Care Lead Android Developer Name Role Phone Geena Lee MD Primary Care Provider + Encounter Details Date Type Department Care Team (Late st Contact Info) Description 11/27/2024 Lab Requisition [facility] - Main Lab [address] [place] [address] Geena Lee MD [address] [address] Chronic kidney disease, unspecified; Essential [...] Priority Date/Time Associated Diagnosis Comments SODIUM Routine 11/28/2024 5:40 AM EDT Chronic kidney disease, unspecified Essential (primary) hypertension documented in this encounter Results * (ABNORMAL) Sodium (11/28/2024 5:40 AM EDT) Sodium 127(L) 133 - 145 mmol/L LAB CHEMISTRY METHOD 11/28/2024 10:08 AM EDT [facility]) [facility] Blood Venous blood specimen / Unknown Venipuncture / Unknown 11/28/2024 5:40 AM EDT 11/28/2024 8:47 AM EDT us Geena Lee MD LAB BLOOD ORDERABLES Fin al Result [facility] ([facility]) [facility] [address] [place] [address], documented in this encounter Visit Diagnoses Diagnosis Chronic kidney disease, unspecified Essential (primary) hypertension Unspecified essential hypertension documented in this encounter Care Teams Lead Android Developer Relationship Specialty Start Date End Date Geena Lee MD [address] [place] [phone] PCP - General Family Medicine 03/20/24 documented as of this encounter
--- OUTSIDE RECORDS SUMMARY | 2024-12-19 15:35 | XMS_ITS | Encounter Summary ---
Author Organization [facility] Address [address] [place] [address] Care Team Providers Care Fashion Styling Intern Name Role Phone Geena Lee MD Primary Care Provider + Encounter Details Date Type Department Care Team (Late st Contact Info) Description 10/24/[address] [facility] - Main Lab [address] [facility] [employer] [place] [address] Geena Lee MD [address] [address] Other group home (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; Essential (primary) hypertension Social History Tobacco Use [...] as of this encounter Visit Diagnoses Diagnosis Other group home (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 Essential (primary) hypertension Unspecified essential hypertension documented in this encounter Care Teams Fashion Styling Intern Relationship Specialty Start Date End Date Geena Lee MD [address] [phone] PCP - General Family Medicine 03/20/24 documented as of this encounter
--- OUTSIDE RECORDS SUMMARY | 2024-12-19 15:35 | XMS_ITS | Encounter Summary ---
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 Social History Tobacco Use Types Packs/Day Years [...] Associated Diagnosis Comments COMPLETE BLOOD COUNT Routine 08/27/2024 7:31 AM EDT 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 VALPROIC ACID LEVEL, TOTAL Routine 08/27/2024 7:31 AM EDT 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 COMPREHENSIVE METABOLIC PANEL Routine 08/27/2024 7:31 AM EDT Other residential (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 documented in this encounter Results * Valproic acid level, total (08/27/2024 7:31 AM EDT) [facility] Valproic Acid, Total 73 50 - 100 mcg/mL LAB CHEMISTRY METHOD 08/27/2024 11:27 AM [facility] Blood Venous blood specimen / Unknown Venipuncture / Unknown 08/27/2024 7:31 AM EDT 08/27/2024 9:12 AM EDT us Geena Lee MD LAB BLOOD ORDERABLES Fin al Result [facility] [address] [place] [address], [place] [phone] * (ABNORMAL) Comprehensive metabolic panel (08/27/2024 7:31 AM EDT) [facility] Sodium 129(L) 133 - 145 mmol/L LAB CHEMISTRY METHOD 08/27/2024 11:27 AM [facility] Potassium 4.0 3.5 - 5.5 mmol/L LAB CHEMISTRY METHOD 08/27/2024 11:27 AM [facility] Chloride 93(L) 96 - 110 mmol/L LAB CHEMISTRY METHOD 08/27/2024 11:27 AM [facility] CO2 28 21 - 32 mmol/L LAB CHEMISTRY METHOD 08/27/2024 11:27 AM [facility] Anion Gap 8 3 - 11 LAB CHEMISTRY METHOD 08/27/2024 11:27 AM [facility] Glucose 74 70 - 100 mg/dL LAB CHEMISTRY METHOD 08/27/2024 11:27 AM [facility] BUN 14 5 - 25 mg/dL LAB CHEMISTRY METHOD 08/27/2024 11:27 AM [facility] Creatinine 0.65(L) 0.70 - 1.30 mg/dL LAB CHEMISTRY METHOD 08/27/2024 11:27 AM [facility] eGFR 103 >=60 mL/min/1. 73m2 LAB CHEMISTRY METHOD 08/27/2024 11:27 AM [facility] Comment:Calculation based on the Chronic Kidney Disease Epidemiology Collaboration (CKD-EPI) equation refit without adjustment for race. BUN/Creatinine Ratio 21.5 LAB CHEMISTRY METHOD 08/27/2024 11:27 AM [facility] Calcium 8.7 8.5 - 10.5 mg/dL LAB CHEMISTRY METHOD 08/27/2024 11:27 AM [facility] AST (SGOT) 20 10 - 42 unit/L LAB CHEMISTRY METHOD 08/27/2024 11:27 AM [facility] ALT (SGPT) 13 10 - 60 unit/L LAB CHEMISTRY METHOD 08/27/2024 11:27 AM [facility] Alkaline Phosphatase 92 42 - 121 unit/L LAB CHEMISTRY METHOD 08/27/2024 11:27 AM [facility] Total Protein 7.2 6.0 - 8.0 g/dL LAB CHEMISTRY METHOD 08/27/2024 11:27 AM [facility] Albumin 3.2 3.2 - 5.0 g/dL LAB CHEMISTRY METHOD 08/27/2024 11:27 AM [facility] Total Bilirubin 0.5 0.0 - 1.4 mg/dL LAB CHEMISTRY METHOD 08/27/2024 11:27 AM [facility] Blood Venous blood specimen / Unknown Venipuncture / Unknown 08/27/2024 7:31 AM EDT 08/27/2024 9:12 AM EDT us Geena Lee MD LAB BLOOD ORDERABLES Fin al Result [facility] [address] [place] [address], * (ABNORMAL) Complete blood count (08/27/2024 7:31 AM EDT) WBC 6.5 4.8 - 10.8 K/mcL LAB HEMETOLOGY METHOD 08/27/2024 10:24 AM [facility] RBC 3.90(L) 4.50 - 5.50 M/mcL LAB HEMETOLOGY METHOD 08/27/2024 10:24 AM [facility] Hemoglobin 12.7(L) 13.5 - 17.5 g/dL LAB HEMETOLOGY METHOD 08/27/2024 10:24 AM [facility] Hematocrit 35.8(L) 42.0 - 54.0 % LAB HEMETOLOGY METHOD 08/27/2024 10:24 AM [facility] MCV 91.1 79.0 - 98.0 FL LAB HEMETOLOGY METHOD 08/27/2024 10:24 AM [facility] MCH 32.3(H) 27.0 - 32.0 pcg LAB HEMETOLOGY METHOD 08/27/2024 10:24 AM [facility] MCHC 35.5 32.0 - 37.0 g/dL LAB HEMETOLOGY METHOD 08/27/2024 10:24 AM [facility] RDW 13.2 11.0 - 15.0 % LAB HEMETOLOGY METHOD 08/27/2024 10:24 AM [facility] Platelets 189 130 - 400 K/mcL LAB HEMETOLOGY METHOD 08/27/2024 10:24 AM [facility] MPV 9.5 7.0 - 11.0 FL LAB HEMETOLOGY METHOD 08/27/2024 10:24 AM [facility] NRBC 0.0 <1.0 % LAB HEMETOLOGY METHOD 08/27/2024 10:24 AM [facility] NRBC Absolute 0.00 <0.10 K/mcL LAB HEMETOLOGY METHOD 08/27/2024 10:24 AM EDT [facility] Blood Venous blood specimen / Unknown Venipuncture / Unknown 08/27/2024 7:31 AM EDT 08/27/2024 9:12 AM EDT us Geena Lee MD LAB BLOOD ORDERABLES Fin al Result [facility] [address] [place] [address], documented in this encounter Visit Diagnoses Diagnosis Other residential (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 documented in this encounter Care Teams Acid Adjuster Relationship Specialty Start Date End Date Geena Lee MD [address] [place] [phone] PCP - General Family Medicine 03/20/24 documented as of this encounter
--- OUTSIDE RECORDS SUMMARY | 2024-12-19 15:35 | XMS_ITS | Encounter Summary ---
Author Organization [facility] Address [address] [place] [address] Care Team Providers Care Entry Level Staff Accountant Name Role Phone Geena Lee MD Primary Care Provider + Encounter Details Date Type Department Care Team (Late st Contact Info) Description 10/14/2024 Lab Requisition [facility] - Main Lab [address] [place] [address] Geena Lee MD [address] [phone] Essential (primary) hypertension Social History Tobacco Use [...] Associated Diagnosis Comments COMPLETE BLOOD COUNT Routine 10/15/2024 6:00 AM EDT Essential (primary) hypertension COMPREHENSIVE METABOLIC PANEL Routine 10/15/2024 6:00 AM EDT Essential (primary) hypertension documented in this encounter Results * (ABNORMAL) Comprehensive metabolic panel (10/15/2024 6:00 AM EDT) Sodium 129(L) 133 - 145 mmol/L LAB CHEMISTRY METHOD 10/15/2024 11:07 AM EDT [facility] ([facility]) [facility] Potassium 4.0 3.5 - 5.5 mmol/L LAB CHEMISTRY METHOD 10/15/2024 11:07 AM [facility] Chloride 93(L) 96 - 110 mmol/L LAB CHEMISTRY METHOD 10/15/2024 11:07 AM [facility] CO2 27 21 - 32 mmol/L LAB CHEMISTRY METHOD 10/15/2024 11:07 AM [facility] Anion Gap 9 3 - 11 LAB CHEMISTRY METHOD 10/15/2024 11:07 AM [facility] Glucose 83 70 - 100 mg/dL LAB CHEMISTRY METHOD 10/15/2024 11:07 AM [facility] BUN 15 5 - 25 mg/dL LAB CHEMISTRY METHOD 10/15/2024 11:07 AM [facility] Creatinine 0.70 0.70 - 1.30 mg/dL LAB CHEMISTRY METHOD 10/15/2024 11:07 AM [facility] eGFR 100 >=60 mL/min/1. 73m2 LAB CHEMISTRY METHOD 10/15/2024 11:07 AM [facility] Comment:Calculation based on the Chronic Kidney Disease Epidemiology Collaboration (CKD-EPI) equation refit without adjustment for race. BUN/Creatinine Ratio 21.4 LAB CHEMISTRY METHOD 10/15/2024 11:07 AM [facility] Calcium 8.2(L) 8.5 - 10.5 mg/dL LAB CHEMISTRY METHOD 10/15/2024 11:07 AM [facility] AST (SGOT) 20 10 - 42 unit/L LAB CHEMISTRY METHOD 10/15/2024 11:07 AM [facility] ALT (SGPT) 10 10 - 60 unit/L LAB CHEMISTRY METHOD 10/15/2024 11:07 AM [facility] Alkaline Phosphatase 89 42 - 121 unit/L LAB CHEMISTRY METHOD 10/15/2024 11:07 AM [facility] Total Protein 6.4 6.0 - 8.0 g/dL LAB CHEMISTRY METHOD 10/15/2024 11:07 AM [facility] Albumin 2.9(L) 3.2 - 5.0 g/dL LAB CHEMISTRY METHOD 10/15/2024 11:07 AM [facility] Total Bilirubin 0.5 0.0 - 1.4 mg/dL LAB CHEMISTRY METHOD 10/15/2024 11:07 AM [facility] Blood Venous blood specimen / Unknown Venipuncture / Unknown 10/15/2024 6:00 AM EDT 10/15/2024 9:30 AM EDT us Geena Lee MD LAB BLOOD ORDERABLES Fin al Result [facility] [address] [place] [address], * (ABNORMAL) Complete blood count (10/15/2024 6:00 AM EDT) WBC 4.7(L) 4.8 - 10.8 K/mcL LAB HEMETOLOGY METHOD 10/15/2024 10:07 AM [facility] RBC 3.40(L) 4.50 - 5.50 M/mcL LAB HEMETOLOGY METHOD 10/15/2024 10:07 AM [facility] Hemoglobin 10.3(L) 13.5 - 17.5 g/dL LAB HEMETOLOGY METHOD 10/15/2024 10:07 AM [facility] Hematocrit 31.0(L) 42.0 - 54.0 % LAB HEMETOLOGY METHOD 10/15/2024 10:07 AM [facility] MCV 91.4 79.0 - 98.0 FL LAB HEMETOLOGY METHOD 10/15/2024 10:07 AM [facility] MCH 30.4 27.0 - 32.0 pcg LAB HEMETOLOGY METHOD 10/15/2024 10:07 AM EDT [facility] MCHC 33.2 32.0 - 37.0 g/dL LAB HEMETOLOGY METHOD 10/15/2024 10:07 AM EDT [facility] RDW 14.2 11.0 - 15.0 % LAB HEMETOLOGY METHOD 10/15/2024 10:07 AM EDT [facility] Platelets 164 130 - 400 K/mcL LAB HEMETOLOGY METHOD 10/15/2024 10:07 AM EDT [facility] MPV 9.7 7.0 - 11.0 FL LAB HEMETOLOGY METHOD 10/15/2024 10:07 AM EDT [facility] NRBC 0.0 <1.0 % LAB HEMETOLOGY METHOD 10/15/2024 10:07 AM EDT [facility] NRBC Absolute 0.00 <0.10 K/mcL LAB HEMETOLOGY METHOD 10/15/2024 10:07 AM T [facility] Blood Venous blood specimen / Unknown Venipuncture / Unknown 10/15/2024 6:00 AM EDT 10/15/2024 9:30 AM EDT us Geena Lee MD LAB BLOOD ORDERABLES Fin al Result [facility] [address] [place] [address], documented in this encounter Visit Diagnoses Diagnosis Essential (primary) hypertension Unspecified essential hypertension documented in this encounter Care Teams Entry Level Staff Accountant Relationship Specialty Start Date End Date Geena Lee MD [address] [place] [phone] PCP - General Family Medicine 03/20/24 documented as of this encounter
--- OUTSIDE RECORDS SUMMARY | 2024-12-19 15:35 | XMS_ITS | Encounter Summary ---
Author Organization [facility] Address [address] [place] [address] Care Team Providers Care Pipe Buffer Name Role Phone Geena Lee MD Primary Care Provider + Encounter Details Date Type Department Care Team (Late st Contact Info) Description 12/03/2024 Lab Requisition [facility] - Main Lab [address] [place] [address] Geena Lee MD [address] [phone] Hypo-osmolality and hyponatremia Social History Tobacco Use Types Packs/Day Years [...] Priority Date/Time Associated Diagnosis Comments SODIUM Routine 12/04/2024 7:47 AM EDT Hypo-osmolality and hyponatremia documented in this encounter Results * (ABNORMAL) Sodium (12/04/2024 7:47 AM EDT) Sodium 127(L) 133 - 145 mmol/L LAB CHEMISTRY METHOD 12/04/2024 11:08 AM EDT [facility] Blood Venous blood specimen / Unknown Venipuncture / Unknown 12/04/2024 7:47 AM EDT 12/04/2024 9:51 AM EDT us Geena Lee MD LAB BLOOD ORDERABLES Fin al Result [facility] ([facility]) [facility] [address] [place] [address], documented in this encounter Visit Diagnoses Diagnosis Hypo-osmolality and hyponatremia documented in this encounter Care Teams Pipe Buffer Relationship Specialty Start Date End Date Geena Lee MD [address] [place] [phone] PCP - General Family Medicine 03/20/24 documented as of this encounter
--- OUTSIDE RECORDS SUMMARY | 2024-12-19 15:35 | XMS_ITS | Encounter Summary ---
Author Organization [facility] Address [address] [place] [address] Care Team Providers Care Worm Farmer Name Role Phone Geena Lee MD Primary Care Provider + Encounter Details Date Type Department Care Team (Late st Contact Info) Description 11/21/2024 Lab Requisition [facility] - Main Lab [address] [place] [address] Geena Lee MD [address] [address] Chronic kidney disease, unspecified; Essential [...] Priority Date/Time Associated Diagnosis Comments SODIUM Routine 11/22/2024 7:17 AM EDT Chronic kidney disease, unspecified Essential (primary) hypertension documented in this encounter Results * (ABNORMAL) Sodium (11/22/2024 7:17 AM EDT) Sodium 128(L) 133 - 145 mmol/L LAB CHEMISTRY METHOD 11/22/2024 12:51 PM EDT [facility] ([facility]) [facility] Blood Venous blood specimen / Unknown Venipuncture / Unknown 11/22/2024 7:17 AM EDT 11/22/2024 10:04 AM EDT us Geena Lee MD LAB BLOOD ORDERABLES Fin al Result [facility] ([facility]) [facility] [address] [place] [address], documented in this encounter Visit Diagnoses Diagnosis Chronic kidney disease, unspecified Essential (primary) hypertension Unspecified essential hypertension documented in this encounter Care Teams Worm Farmer Relationship Specialty Start Date End Date Geena Lee MD [address] [place] [phone] PCP - General Family Medicine 03/20/24 documented as of this encounter
--- OUTSIDE RECORDS SUMMARY | 2024-12-19 15:35 | XMS_ITS | Encounter Summary ---
Author Organization [facility] Address [address] [place] [address] Care Team Providers Care Acid Mixer Name Role Phone Geena Lee MD Primary Care Provider + Encounter Details Date Type Department Care Team (Late st Contact Info) Description 11/25/2024 Lab Requisition [facility] - Main Lab [address] [place] [address] Geena Lee MD [address] [phone] Essential (primary) hypertension Social History Tobacco Use [...] Associated Diagnosis Comments COMPLETE BLOOD COUNT Routine 11/26/2024 5:49 AM EDT Essential (primary) hypertension COMPREHENSIVE METABOLIC PANEL Routine 11/26/2024 5:49 AM EDT Essential (primary) hypertension documented in this encounter Results * (ABNORMAL) Comprehensive metabolic panel (11/26/2024 5:49 AM EDT) Sodium 128(L) 133 - 145 mmol/L LAB CHEMISTRY METHOD 11/26/2024 10:42 AM EDT [facility] ([facility]) [facility] Potassium 4.1 3.5 - 5.5 mmol/L LAB CHEMISTRY METHOD 11/26/2024 10:42 AM [facility] Chloride 94(L) 96 - 110 mmol/L LAB CHEMISTRY METHOD 11/26/2024 10:42 AM [facility] CO2 26 21 - 32 mmol/L LAB CHEMISTRY METHOD 11/26/2024 10:42 AM [facility] Anion Gap 8 3 - 11 LAB CHEMISTRY METHOD 11/26/2024 10:42 AM [facility] Glucose 65(L) 70 - 100 mg/dL LAB CHEMISTRY METHOD 11/26/2024 10:42 AM [facility] BUN 11 5 - 25 mg/dL LAB CHEMISTRY METHOD 11/26/2024 10:42 AM [facility] Creatinine 0.54(L) 0.70 - 1.30 mg/dL LAB CHEMISTRY METHOD 11/26/2024 10:42 AM [facility] eGFR 108 >=60 mL/min/1. 73m2 LAB CHEMISTRY METHOD 11/26/2024 10:42 AM [facility] Comment:Calculation based on the Chronic Kidney Disease Epidemiology Collaboration (CKD-EPI) equation refit without adjustment for race. BUN/Creatinine Ratio 20.4 LAB CHEMISTRY METHOD 11/26/2024 10:42 AM [facility] Calcium 8.7 8.5 - 10.5 mg/dL LAB CHEMISTRY METHOD 11/26/2024 10:42 AM [facility] AST (SGOT) 25 10 - 42 unit/L LAB CHEMISTRY METHOD 11/26/2024 10:42 AM [facility] ALT (SGPT) 14 10 - 60 unit/L LAB CHEMISTRY METHOD 11/26/2024 10:42 AM [facility] Alkaline Phosphatase 78 42 - 121 unit/L LAB CHEMISTRY METHOD 11/26/2024 10:42 AM [facility] Total Protein 7.1 6.0 - 8.0 g/dL LAB CHEMISTRY METHOD 11/26/2024 10:42 AM EDT [facility] Albumin 3.5 3.2 - 5.0 g/dL LAB CHEMISTRY METHOD 11/26/2024 10:42 AM EDT [facility] Total Bilirubin 0.5 0.0 - 1.4 mg/dL LAB CHEMISTRY METHOD 11/26/2024 10:42 AM EDT [facility] Blood Venous blood specimen / Unknown Venipuncture / Unknown 11/26/2024 5:49 AM EDT 11/26/2024 9:15 AM EDT us Geena Lee MD LAB BLOOD ORDERABLES Fin al Result [facility] [address] [place] [address], * (ABNORMAL) Complete blood count (11/26/2024 5:49 AM EDT) WBC 5.3 4.8 - 10.8 K/mcL LAB HEMETOLOGY METHOD 11/26/2024 9:42 AM [facility] RBC 4.00(L) 4.50 - 5.50 M/mcL LAB HEMETOLOGY METHOD 11/26/2024 9:42 AM [facility] Hemoglobin 11.6(L) 13.5 - 17.5 g/dL LAB HEMETOLOGY METHOD 11/26/2024 9:42 AM [facility] Hematocrit 33.6(L) 42.0 - 54.0 % LAB HEMETOLOGY METHOD 11/26/2024 9:42 AM [facility] MCV 84.0 79.0 - 98.0 FL LAB HEMETOLOGY METHOD 11/26/2024 9:42 AM [facility] MCH 29.0 27.0 - 32.0 pcg LAB HEMETOLOGY METHOD 11/26/2024 9:42 AM EDT [facility] MCHC 34.5 32.0 - 37.0 g/dL LAB HEMETOLOGY METHOD 11/26/2024 9:42 AM EDT [facility] RDW 14.2 11.0 - 15.0 % LAB HEMETOLOGY METHOD 11/26/2024 9:42 AM EDT [facility] Platelets 195 130 - 400 K/mcL LAB HEMETOLOGY METHOD 11/26/2024 9:42 AM EDT [facility] MPV 10.2 7.0 - 11.0 FL LAB HEMETOLOGY METHOD 11/26/2024 9:42 AM EDT [facility] NRBC 0.0 <1.0 % LAB HEMETOLOGY METHOD 11/26/2024 9:42 AM EDT [facility] NRBC Absolute 0.00 <0.10 K/mcL LAB HEMETOLOGY METHOD 11/26/2024 9:42 AM EDT [facility] Blood Venous blood specimen / Unknown Venipuncture / Unknown 11/26/2024 5:49 AM EDT 11/26/2024 9:15 AM EDT us Geena Lee MD LAB BLOOD ORDERABLES Fin al Result [facility] [address] [place] [address], documented in this encounter Visit Diagnoses Diagnosis Essential (primary) hypertension Unspecified essential hypertension documented in this encounter Care Teams Acid Mixer Relationship Specialty Start Date End Date Geena Lee MD [address] [place] [phone] PCP - General Family Medicine 03/20/24 documented as of this encounter
--- OUTSIDE RECORDS SUMMARY | 2024-12-19 15:35 | XMS_ITS | Encounter Summary ---
Author Organization [facility] Address [address] [place] [address] Care Team Providers Care Court Crier Name Role Phone Geena Lee MD Primary Care Provider + Encounter Details Date Type Department Care Team (Late st Contact Info) Description 03/20/2024 Lab Requisition [facility] - Main Lab [address] [place] [address] Geena Lee MD [address] [address] Chronic obstructive pulmonary disease, [...] Associated Diagnosis Comments COMPLETE BLOOD COUNT Routine 03/20/2024 5:24 AM EST Chronic obstructive pulmonary disease, unspecified (CMS/HCC) COMPREHENSIVE METABOLIC PANEL Routine 03/20/2024 5:24 AM EST Chronic obstructive pulmonary disease, unspecified (CMS/HCC) documented in this encounter Results * (ABNORMAL) Comprehensive metabolic panel (03/20/2024 5:24 AM EST) Sodium 128(L) 133 - 145 mmol/L LAB CHEMISTRY METHOD 03/20/2024 2:43 PM [facility] Potassium 4.1 3.5 - 5.5 mmol/L LAB CHEMISTRY METHOD 03/20/2024 2:43 PM [facility] Chloride 93(L) 96 - 110 mmol/L LAB CHEMISTRY METHOD 03/20/2024 2:43 PM [facility] CO2 23 21 - 32 mmol/L LAB CHEMISTRY METHOD 03/20/2024 2:43 PM [facility] Anion Gap 12(H) 3 - 11 LAB CHEMISTRY METHOD 03/20/2024 2:43 PM [facility] Glucose 75 70 - 100 mg/dL LAB CHEMISTRY METHOD 03/20/2024 2:43 PM [facility] BUN 15 5 - 25 mg/dL LAB CHEMISTRY METHOD 03/20/2024 2:43 PM [facility] Creatinine 0.58(L) 0.70 - 1.30 mg/dL LAB CHEMISTRY METHOD 03/20/2024 2:43 PM [facility] eGFR 106 >=60 mL/min/1. 73m2 LAB CHEMISTRY METHOD 03/20/2024 2:43 PM [facility] Comment:Calculation based on the Chronic Kidney Disease Epidemiology Collaboration (CKD-EPI) equation refit without adjustment for race. BUN/Creatinine Ratio 25.9 LAB CHEMISTRY METHOD 03/20/2024 2:43 PM [facility] Calcium 8.3(L) 8.5 - 10.5 mg/dL LAB CHEMISTRY METHOD 03/20/2024 2:43 PM [facility] AST (SGOT) 29 10 - 42 unit/L LAB CHEMISTRY METHOD 03/20/2024 2:43 PM [facility] ALT (SGPT) 30 10 - 60 unit/L LAB CHEMISTRY METHOD 03/20/2024 2:43 PM [facility] Alkaline Phosphatase 114 42 - 121 unit/L LAB CHEMISTRY METHOD 03/20/2024 2:43 PM [facility] Total Protein 6.6 6.0 - 8.0 g/dL LAB CHEMISTRY METHOD 03/20/2024 2:43 PM [facility] Albumin 2.9(L) 3.2 - 5.0 g/dL LAB CHEMISTRY METHOD 03/20/2024 2:43 PM [facility] Total Bilirubin 1.1 0.0 - 1.4 mg/dL LAB CHEMISTRY METHOD 03/20/2024 2:43 PM [facility] Blood Venous blood specimen / Unknown Venipuncture / Unknown 03/20/2024 5:24 AM EST 03/20/2024 10:33 AM EST us Geena Lee MD LAB BLOOD ORDERABLES Fin al Result [facility] [address] [place] [address], * (ABNORMAL) Complete blood count (03/20/2024 5:24 AM EST) WBC 10.7 4.8 - 10.8 K/mcL LAB HEMETOLOGY METHOD 03/20/2024 11:05 AM [facility] RBC 4.20(L) 4.50 - 5.50 M/mcL LAB HEMETOLOGY METHOD 03/20/2024 11:05 AM [facility] Hemoglobin 13.2(L) 13.5 - 17.5 g/dL LAB HEMETOLOGY METHOD 03/20/2024 11:05 AM [facility] Hematocrit 38.0(L) 42.0 - 54.0 % LAB HEMETOLOGY METHOD 03/20/2024 11:05 AM [facility] MCV 91.3 79.0 - 98.0 FL LAB HEMETOLOGY METHOD 03/20/2024 11:05 AM [facility] MCH 31.7 27.0 - 32.0 pcg LAB HEMETOLOGY METHOD 03/20/2024 11:05 AM [facility] MCHC 34.7 32.0 - 37.0 g/dL LAB HEMETOLOGY METHOD 03/20/2024 11:05 AM [facility] RDW 12.9 11.0 - 15.0 % LAB HEMETOLOGY METHOD 03/20/2024 11:05 AM [facility] Platelets 244 130 - 400 K/mcL LAB HEMETOLOGY METHOD 03/20/2024 11:05 AM [facility] MPV 9.4 7.0 - 11.0 FL LAB HEMETOLOGY METHOD 03/20/2024 11:05 AM [facility] NRBC 0.0 <1.0 % LAB HEMETOLOGY METHOD 03/20/2024 11:05 AM [facility] NRBC Absolute 0.00 <0.10 K/mcL LAB HEMETOLOGY METHOD 03/20/2024 11:05 AM [facility] Blood Venous blood specimen / Unknown Venipuncture / Unknown 03/20/2024 5:24 AM EST 03/20/2024 10:33 AM EST us Geena Lee MD LAB BLOOD ORDERABLES Fin al Result [facility] [address] [place] [address], documented in this encounter Visit Diagnoses Diagnosis Chronic obstructive pulmonary disease, unspecified (CMS/HCC V24, CMS/HCC V28) documented in this encounter Care Teams Court Crier Relationship Specialty Start Date End Date Geena Lee MD [address] [phone] PCP - General Family Medicine 03/20/24 documented as of this encounter
--- OUTSIDE RECORDS SUMMARY | 2024-12-19 15:35 | XMS_ITS | Encounter Summary ---
Author Organization [facility] Address [address] [place] [address] Care Team Providers Care Retail Manager Name Role Phone Geena Lee MD Primary Care Provider + Encounter Details Date Type Department Care Team (Late st Contact Info) Description 11/08/2024 Lab Requisition [facility] - Main Lab [address] [place] [address] Geena Lee MD [address] [phone] Essential (primary) hypertension Social History Tobacco Use [...] Associated Diagnosis Comments COMPLETE BLOOD COUNT Routine 11/11/2024 10:04 AM EDT Essential (primary) hypertension COMPREHENSIVE METABOLIC PANEL Routine 11/11/2024 10:04 AM EDT Essential (primary) hypertension documented in this encounter Results * (ABNORMAL) Complete blood count (11/11/2024 10:04 AM EDT) WBC 6.2 4.8 - 10.8 K/[facility] LAB HEMETOLOGY METHOD 11/11/2024 12:35 PM EDT [facility] LAB RBC 3.90(L) 4.50 - 5.50 M/mcL LAB HEMETOLOGY METHOD 11/11/2024 12:35 PM EDT [facility] LAB Hemoglobin 11.2(L) 13.5 - 17.5 g/dL LAB HEMETOLOGY METHOD 11/11/2024 12:35 PM [facility] LAB Hematocrit 32.7(L) 42.0 - 54.0 % LAB HEMETOLOGY METHOD 11/11/2024 12:35 PM T [facility] LAB MCV 84.3 79.0 - 98.0 FL LAB HEMETOLOGY METHOD 11/11/2024 12:35 PM [facility] LAB MCH 28.9 27.0 - 32.0 pcg LAB HEMETOLOGY METHOD 11/11/2024 12:35 PM [facility] LAB MCHC 34.3 32.0 - 37.0 g/dL LAB HEMETOLOGY METHOD 11/11/2024 12:35 PM [facility] LAB RDW 13.7 11.0 - 15.0 % LAB HEMETOLOGY METHOD 11/11/2024 12:35 PM [facility] LAB Platelets 252 130 - 400 K/mcL LAB HEMETOLOGY METHOD 11/11/2024 12:35 PM [facility] LAB MPV 9.8 7.0 - 11.0 FL LAB HEMETOLOGY METHOD 11/11/2024 12:35 PM [facility] LAB NRBC 0.0 <1.0 % LAB HEMETOLOGY METHOD 11/11/2024 12:35 PM [facility] LAB NRBC Absolute 0.00 <0.10 K/mcL LAB HEMETOLOGY METHOD 11/11/2024 12:35 PM [facility] LAB Blood Venous blood specimen / Unknown Venipuncture / Unknown 11/11/2024 10:04 AM EDT 11/11/2024 11:21 AM EDT us Geena Lee MD LAB BLOOD ORDERABLES Fin al Result [facility] LAB [address] [place] [address], [place] [phone] * (ABNORMAL) Comprehensive metabolic panel (11/11/2024 10:04 AM EDT) Sodium 126(L) 133 - 145 mmol/L LAB CHEMISTR[facility] Potassium 3.6 3.5 - 5.5 mmol/L LAB CHEMISTRY METHOD 11/11/2024 1:13 PM [facility] LAB Chloride 92(L) 96 - 110 mmol/L LAB CHEMISTRY METHOD 11/11/2024 1:13 PM [facility] LAB CO2 25 21 - 32 mmol/L LAB CHEMISTRY METHOD 11/11/2024 1:13 PM [facility] LAB Anion Gap 9 3 - 11 LAB CHEMISTRY METHOD 11/11/2024 1:13 PM [facility] LAB Glucose 73 70 - 100 mg/dL LAB CHEMISTRY METHOD 11/11/2024 1:13 PM [facility] LAB BUN 8 5 - 25 mg/dL LAB CHEMISTRY METHOD 11/11/2024 1:13 PM [facility] LAB Creatinine 0.60(L) 0.70 - 1.30 mg/dL LAB CHEMISTRY METHOD 11/11/2024 1:13 PM [facility] LAB eGFR 104 >=60 mL/min/1. 73m2 LAB CHEMISTRY METHOD 11/11/2024 1:13 PM [facility] LAB Comment:Calculation based on the Chronic Kidney Disease Epidemiology Collaboration (CKD-EPI) equation refit without adjustment for race. BUN/Creatinine Ratio 13.3 LAB CHEMISTRY METHOD 11/11/2024 1:13 PM [facility] LAB Calcium 8.8 8.5 - 10.5 mg/dL LAB CHEMISTRY METHOD 11/11/2024 1:13 PM EDT [facility] LAB AST (SGOT) 21 10 - 42 unit/L LAB CHEMISTRY METHOD 11/11/2024 1:13 PM EDT [facility] LAB ALT (SGPT) 18 10 - 60 unit/L LAB CHEMISTRY METHOD 11/11/2024 1:13 PM EDT [facility] LAB Alkaline Phosphatase 83 42 - 121 unit/L LAB CHEMISTRY METHOD 11/11/2024 1:13 PM EDT [facility] LAB Total Protein 6.9 6.0 - 8.0 g/dL LAB CHEMISTRY METHOD 11/11/2024 1:13 PM T [facility] LAB Albumin 3.5 3.2 - 5.0 g/dL LAB CHEMISTRY METHOD 11/11/2024 1:13 PM T [facility] LAB Total Bilirubin 0.7 0.0 - 1.4 mg/dL LAB CHEMISTRY METHOD 11/11/2024 1:13 PM EDT [facility] LAB Blood Venous blood specimen / Unknown Venipuncture / Unknown 11/11/2024 10:04 AM EDT 11/11/2024 11:21 AM EDT us Geena Lee MD LAB BLOOD ORDERABLES Fin al Result [facility] LAB [address] [place] [address], documented in this encounter Visit Diagnoses Diagnosis Essential (primary) hypertension Unspecified essential hypertension documented in this encounter Care Teams Retail Manager Relationship Specialty Start Date End Date Geena Lee MD [address] [place] [phone] PCP - General Family Medicine 03/20/24 documented as of this encounter
--- OUTSIDE RECORDS SUMMARY | 2024-12-19 15:35 | XMS_ITS | Encounter Summary ---
Author Organization [facility] Address [address] [place] [address] Care Team Providers Care Logistics Account Manager Name Role Phone Geena Lee MD Primary Care Provider + Encounter Details Date Type Department Care Team (Late st Contact Info) Description 12/18/2024 Lab Requisition [facility] - Main Lab [address] [facility] [employer] [place] [address] Geena Lee MD [address] [address] Chronic kidney disease, unspecified; Essential (primary) hypertension [...] hypertension documented in this encounter Care Teams Logistics Account Manager Relationship Specialty Start Date End Date Geena Lee MD [address] [phone] PCP - General Family Medicine 03/20/24 documented as of this encounter
--- OUTSIDE RECORDS SUMMARY | 2024-12-19 15:35 | XMS_ITS | Encounter Summary ---
Author Organization [facility] Address [address] [place] [address] Care Team Providers Care Drier Attendant Name Role Phone Geena Lee MD Primary Care Provider + Encounter Details Date Type Department Care Team (Late st Contact Info) Description 11/13/2024 Lab Requisition [facility] - Main Lab [address] [place] [address] Geena Lee MD [address] [phone] Abnormal finding of blood chemistry, unspecified Social History Tobacco Use Types Packs/Day [...] Associated Diagnosis Comments BASIC METABOLIC PANEL Routine 11/13/2024 11:56 AM EDT Abnormal finding of blood chemistry, unspecified documented in this encounter Results * (ABNORMAL) Basic metabolic panel (11/13/2024 11:56 AM EDT) Sodium 126(L) 133 - 145 mmol/L LAB CHEMISTRY METHOD 11/13/2024 1:04 PM EDT [facility] Potassium 3.7 3.5 - 5.5 mmol/L LAB CHEMISTRY METHOD 11/13/2024 1:04 PM [facility] LAB Chloride 94(L) 96 - 110 mmol/L LAB CHEMISTRY METHOD 11/13/2024 1:04 PM [facility] LAB CO2 26 21 - 32 mmol/L LAB CHEMISTRY METHOD 11/13/2024 1:04 PM [facility] LAB Anion Gap 6 3 - 11 LAB CHEMISTRY METHOD 11/13/2024 1:04 PM [facility] LAB Glucose 77 70 - 100 mg/dL LAB CHEMISTRY METHOD 11/13/2024 1:04 PM [facility] LAB BUN 9 5 - 25 mg/dL LAB CHEMISTRY METHOD 11/13/2024 1:04 PM [facility] LAB Creatinine 0.57(L) 0.70 - 1.30 mg/dL LAB CHEMISTRY METHOD 11/13/2024 1:04 PM [facility] LAB eGFR 106 >=60 mL/min/1. 73m2 LAB CHEMISTRY METHOD 11/13/2024 1:04 PM [facility] LAB Comment:Calculation based on the Chronic Kidney Disease Epidemiology Collaboration (CKD-EPI) equation refit without adjustment for race. BUN/Creatinine Ratio 15.8 LAB CHEMISTRY METHOD 11/13/2024 1:04 PM [facility] LAB Calcium 8.8 8.5 - 10.5 mg/dL LAB CHEMISTRY METHOD 11/13/2024 1:04 PM [facility] LAB Blood Venous blood specimen / Unknown Venipuncture / Unknown 11/13/2024 11:56 AM EDT 11/13/2024 12:28 PM EDT us Geena Lee MD LAB BLOOD ORDERABLES Fin al Result [facility] LAB [address] [place] [address], documented in this encounter Visit Diagnoses Diagnosis Abnormal finding of blood chemistry, unspecified documented in this encounter Care Teams Drier Attendant Relationship Specialty Start Date End Date Geena Lee MD [address] [place] [address] PCP - General Family Medicine 03/20/24 documented as of this encounter
--- OUTSIDE RECORDS SUMMARY | 2024-12-19 15:35 | XMS_ITS | Encounter Summary ---
Author Organization [facility] Address [address] [place] [address] Care Team Providers Care Embedded Software Development Engineer Name Role Phone Geena Lee MD Primary Care Provider + Encounter Details Date Type Department Care Team (Late st Contact Info) Description 12/13/2024 Lab Requisition [facility] - Main Lab [address] [place] [address] Geena Lee MD [address] [phone] Essential (primary) hypertension Social History Tobacco Use [...] Associated Diagnosis Comments COMPLETE BLOOD COUNT Routine 12/16/2024 7:06 AM EDT Essential (primary) hypertension COMPREHENSIVE METABOLIC PANEL Routine 12/16/2024 7:06 AM EDT Essential (primary) hypertension documented in this encounter Results * (ABNORMAL) Comprehensive metabolic panel (12/16/2024 7:06 AM EDT) Sodium 127(L) 133 - 145 mmol/L LAB CHEMISTRY METHOD 12/16/2024 11:12 AM EDT [facility] LAB Potassium 4.2 3.5 - 5.5 mmol/L LAB CHEMISTRY METHOD 12/16/2024 11:12 AM [facility] LAB Comment:Hemolysis present Chloride 92(L) 96 - 110 mmol/L LAB CHEMISTRY METHOD 12/16/2024 11:12 AM [facility] LAB CO2 25 21 - 32 mmol/L LAB CHEMISTRY METHOD 12/16/2024 11:12 AM [facility] LAB Anion Gap 10 3 - 11 LAB CHEMISTRY METHOD 12/16/2024 11:12 AM [facility] LAB Glucose 60(L) 70 - 100 mg/dL LAB CHEMISTRY METHOD 12/16/2024 11:12 AM [facility] LAB BUN 9 5 - 25 mg/dL LAB CHEMISTRY METHOD 12/16/2024 11:12 AM [facility] LAB Creatinine 0.57(L) 0.70 - 1.30 mg/dL LAB CHEMISTRY METHOD 12/16/2024 11:12 AM [facility] LAB eGFR 106 >=60 mL/min/1. 73m2 LAB CHEMISTRY METHOD 12/16/2024 11:12 AM [facility] LAB Comment:Calculation based on the Chronic Kidney Disease Epidemiology Collaboration (CKD-EPI) equation refit without adjustment for race. BUN/Creatinine Ratio 15.8 LAB CHEMISTRY METHOD 12/16/2024 11:12 AM [facility] LAB Calcium 9.0 8.5 - 10.5 mg/dL LAB CHEMISTRY METHOD 12/16/2024 11:12 AM [facility] LAB AST (SGOT) 24 10 - 42 unit/L LAB CHEMISTRY METHOD 12/16/2024 11:12 AM [facility] LAB Comment:Hemolysis present ALT (SGPT) 16 10 - 60 unit/L LAB CHEMISTRY METHOD 12/16/2024 11:12 AM [facility] LAB Alkaline Phosphatase 84 42 - 121 unit/L LAB CHEMISTRY METHOD 12/16[facility]24 [facility] Total Protein 7.4 6.0 - 8.0 g/dL LAB CHEMISTRY METHOD 12/16/2024 11:12 AM [facility] LAB Albumin 3.5 3.2 - 5.0 g/dL LAB CHEMISTRY METHOD 12/16/2024 11:12 AM [facility] LAB Total Bilirubin 0.6 0.0 - 1.4 mg/dL LAB CHEMISTRY METHOD 12/16/2024 11:12 AM T [facility] LAB Blood Venous blood specimen / Unknown Venipuncture / Unknown 12/16/2024 7:06 AM EDT 12/16/2024 10:18 AM EDT us Geena Lee MD LAB BLOOD ORDERABLES Fin al Result [facility] LAB [address] [place] [address], * (ABNORMAL) Complete blood count (12/16/2024 7:06 AM EDT) WBC 5.6 4.8 - 10.8 K/mcL LAB HEMETOLOGY METHOD 12/16/2024 10:35 AM [facility] LAB RBC 4.50 4.50 - 5.50 M/mcL LAB HEMETOLOGY METHOD 12/16/2024 10:35 AM [facility] LAB Hemoglobin 13.0(L) 13.5 - 17.5 g/dL LAB HEMETOLOGY METHOD 12/16/2024 10:35 AM [facility] LAB Hematocrit 37.3(L) 42.0 - 54.0 % LAB HEMETOLOGY METHOD 12/16/2024 10:35 AM [facility] LAB MCV 82.5 79.0 - 98.0 FL LAB HEMETOLOGY METHOD 12/16/2024 10:35 AM [facility] LAB MCH 28.8 27.0 - 32.0 pcg LAB HEMETOLOGY METHOD 12/16/2024 10:35 AM EDT [facility] LAB MCHC 34.9 32.0 - 37.0 g/dL LAB HEMETOLOGY METHOD 12/16/2024 10:35 AM EDT [facility] LAB RDW 14.9 11.0 - 15.0 % LAB HEMETOLOGY METHOD 12/16/2024 10:35 AM EDT [facility] LAB Platelets 168 130 - 400 K/mcL LAB HEMETOLOGY METHOD 12/16/2024 10:35 AM EDT [facility] LAB MPV 10.3 7.0 - 11.0 FL LAB HEMETOLOGY METHOD 12/16/2024 10:35 AM EDT [facility] LAB NRBC 0.0 <1.0 % LAB HEMETOLOGY METHOD 12/16/2024 10:35 AM EDT [facility] LAB NRBC Absolute 0.00 <0.10 K/mcL LAB HEMETOLOGY METHOD 12/16/2024 10:35 AM EDT [facility] LAB Blood Venous blood specimen / Unknown Venipuncture / Unknown 12/16/2024 7:06 AM EDT 12/16/2024 10:18 AM EDT us Geena Lee MD LAB BLOOD ORDERABLES Fin al Result [facility] [address] [place] [address], documented in this encounter Visit Diagnoses Diagnosis Essential (primary) hypertension Unspecified essential hypertension documented in this encounter Care Teams Embedded Software Development Engineer Relationship Specialty Start Date End Date Geena Lee MD [address] [place] [phone] PCP - General Family Medicine 03/20/24 documented as of this encounter
--- OUTSIDE RECORDS SUMMARY | 2024-12-19 15:35 | XMS_ITS | Encounter Summary ---
Author Organization [facility] Address [address] [place] [address] Care Team Providers Care Aircraft Engine Mechanic Overhaul Name Role Phone Geena Lee MD Primary Care Provider + Encounter Details Date Type Department Care Team (Late st Contact Info) Description 09/15/2024 Lab Requisition [facility] - Main Lab [address] [place] [address] Geena Lee MD [address] [address] Essential (primary) hypertension Social History [...] Associated Diagnosis Comments COMPLETE BLOOD COUNT Routine 09/17/2024 8:46 AM EDT Essential (primary) hypertension COMPREHENSIVE METABOLIC PANEL Routine 09/17/2024 8:46 AM EDT Essential (primary) hypertension documented in this encounter Results * (ABNORMAL) Comprehensive metabolic panel (09/17/2024 8:46 AM EDT) Sodium 126(L) 133 - 145 mmol/L LAB CHEMISTRY METHOD 09/17/2024 1:04 PM EDT [facility] Potassium 4.1 3.5 - 5.5 mmol/L LAB CHEMISTRY METHOD 09/17/2024 1:04 PM [facility] LAB Chloride 90(L) 96 - 110 mmol/L LAB CHEMISTRY METHOD 09/17/2024 1:04 PM [facility] LAB CO2 22 21 - 32 mmol/L LAB CHEMISTRY METHOD 09/17/2024 1:04 PM [facility] LAB Anion Gap 14(H) 3 - 11 LAB CHEMISTRY METHOD 09/17/2024 1:04 PM [facility] LAB Glucose 108(H) 70 - 100 mg/dL LAB CHEMISTRY METHOD 09/17/2024 1:04 PM [facility] LAB BUN 24 5 - 25 mg/dL LAB CHEMISTRY METHOD 09/17/2024 1:04 PM [facility] LAB Creatinine 0.83 0.70 - 1.30 mg/dL LAB CHEMISTRY METHOD 09/17/2024 1:04 PM [facility] LAB eGFR 95 >=60 mL/min/1. 73m2 LAB CHEMISTRY METHOD 09/17/2024 1:04 PM [facility] LAB Comment:Calculation based on the Chronic Kidney Disease Epidemiology Collaboration (CKD-EPI) equation refit without adjustment for race. BUN/Creatinine Ratio 28.9 LAB CHEMISTRY METHOD 09/17/2024 1:04 PM [facility] LAB Calcium 8.7 8.5 - 10.5 mg/dL LAB CHEMISTRY METHOD 09/17/2024 1:04 PM [facility] LAB AST (SGOT) 18 10 - 42 unit/L LAB CHEMISTRY METHOD 09/17/2024 1:04 PM [facility] ALT (SGPT) 12 10 - 60 unit/L LAB CHEMISTRY METHOD 09/17/2024 1:04 PM [facility] LAB Alkaline Phosphatase 66 42 - 121 unit/L LAB CHEMISTRY METHOD 09/17/2024 1:04 PM [facility] LAB Total Protein 6.5 6.0 - 8.0 g/dL LAB CHEMISTRY METHOD 09/17/2024 1:04 PM EDT [facility] LAB Albumin 3.0(L) 3.2 - 5.0 g/dL LAB CHEMISTRY METHOD 09/17/2024 1:04 PM [facility] LAB Total Bilirubin 0.7 0.0 - 1.4 mg/dL LAB CHEMISTRY METHOD 09/17/2024 1:04 PM EDT [facility] LAB Blood Venous blood specimen / Unknown Venipuncture / Unknown 09/17/2024 8:46 AM EDT 09/17/2024 10:34 AM EDT us Geena Lee MD LAB BLOOD ORDERABLES Fin al Result [facility] [address] [place] [address], * (ABNORMAL) Complete blood count (09/17/2024 8:46 AM EDT) WBC 8.7 4.8 - 10.8 K/mcL LAB HEMETOLOGY METHOD 09/17/2024 11:39 AM [facility] RBC 3.10(L) 4.50 - 5.50 M/mcL LAB HEMETOLOGY METHOD 09/17/2024 11:39 AM [facility] Hemoglobin 10.2(L) 13.5 - 17.5 g/dL LAB HEMETOLOGY METHOD 09/17/2024 11:39 AM [facility] LAB Hematocrit 29.1(L) 42.0 - 54.0 % LAB HEMETOLOGY METHOD 09/17/2024 11:39 AM [facility] LAB MCV 93.0 79.0 - 98.0 FL LAB HEMETOLOGY METHOD 09/17/2024 11:39 AM [facility] LAB MCH 32.6(H) 27.0 - 32.0 pcg LAB HEMETOLOGY METHOD 09/17/2024 11:39 AM EDT [facility] LAB MCHC 35.1 32.0 - 37.0 g/dL LAB HEMETOLOGY METHOD 09/17/2024 11:39 AM EDT [facility] LAB RDW 13.4 11.0 - 15.0 % LAB HEMETOLOGY METHOD 09/17/2024 11:39 AM EDT [facility] LAB Platelets 230 130 - 400 K/mcL LAB HEMETOLOGY METHOD 09/17/2024 11:39 AM EDT [facility] MPV 9.2 7.0 - 11.0 FL LAB HEMETOLOGY METHOD 09/17/2024 11:39 AM EDT [facility] NRBC 0.0 <1.0 % LAB HEMETOLOGY METHOD 09/17/2024 11:39 AM EDT [facility] NRBC Absolute 0.00 <0.10 K/mcL LAB HEMETOLOGY METHOD 09/17/2024 11:39 AM EDT [facility] Blood Venous blood specimen / Unknown Venipuncture / Unknown 09/17/2024 8:46 AM EDT 09/17/2024 10:34 AM EDT us Geena Lee MD LAB BLOOD ORDERABLES Fin al Result [facility] [address] [place] [address], documented in this encounter Visit Diagnoses Diagnosis Essential (primary) hypertension Unspecified essential hypertension documented in this encounter Care Teams Aircraft Engine Mechanic Overhaul Relationship Specialty Start Date End Date Geena Lee MD [address] [address] PCP - General Family Medicine 03/20/24 documented as of this encounter
--- OUTSIDE RECORDS SUMMARY | 2024-12-19 15:35 | XMS_ITS | Encounter Summary ---
Author Organization [facility] Address [address] [place] [address] Care Team Providers Care Public Health Sanitarian Name Role Phone Elder, Geena Mane MD Primary Care Provider + Encounter Details Date Type Department Care Team (Late st Contact Info) Description 06/25/2024 Lab Requisition [facility] - Main Lab [address] [place] [id number] Marian Rowe NP [address] [place] [address] Essential (primary) hypertension; Hypo-osmolality and hyponatremia Social History Tobacco Use [...] Associated Diagnosis Comments COMPLETE BLOOD COUNT Routine 06/25/2024 5:13 AM EST Essential (primary) hypertension Hypo-osmolality and hyponatremia COMPREHENSIVE METABOLIC PANEL Routine 06/25/2024 5:13 AM EST Essential (primary) hypertension Hypo-osmolality and hyponatremia documented in this encounter Results * (ABNORMAL) Comprehensive metabolic panel (06/25/2024 5:13 AM EST) Sodium 129(L) 133 - 145 mmol/L LAB CHEMISTRY METHOD 06/25/2024 10:22 AM EST [facility] Potassium 4.0 3.5 - 5.5 mmol/L LAB CHEMISTRY METHOD 06/25/2024 10:22 AM [facility] Chloride 91(L) 96 - 110 mmol/L LAB CHEMISTRY METHOD 06/25/2024 10:22 AM [facility] CO2 29 21 - 32 mmol/L LAB CHEMISTRY METHOD 06/25/2024 10:22 AM [facility] Anion Gap 9 3 - 11 LAB CHEMISTRY METHOD 06/25/2024 10:22 AM [facility] Glucose 76 70 - 100 mg/dL LAB CHEMISTRY METHOD 06/25/2024 10:22 AM [facility] BUN 17 5 - 25 mg/dL LAB CHEMISTRY METHOD 06/25/2024 10:22 AM [facility] Creatinine 0.74 0.70 - 1.30 mg/dL LAB CHEMISTRY METHOD 06/25/2024 10:22 AM [facility] LAB eGFR 99 >=60 mL/min/1. 73m2 LAB CHEMISTRY METHOD 06/25/2024 10:22 AM [facility] LAB Comment:Calculation based on the Chronic Kidney Disease Epidemiology Collaboration (CKD-EPI) equation refit without adjustment for race. BUN/Creatinine Ratio 23.0 LAB CHEMISTRY METHOD 06/25/2024 10:22 AM [facility] Calcium 9.6 8.5 - 10.5 mg/dL LAB CHEMISTRY METHOD 06/25/2024 10:22 AM [facility] AST (SGOT) 15 10 - 42 unit/L LAB CHEMISTRY METHOD 06/25/2024 10:22 AM [facility] ALT (SGPT) 11 10 - 60 unit/L LAB CHEMISTRY METHOD 06/25/2024 10:22 AM [facility] Alkaline Phosphatase 106 42 - 121 unit/L LAB CHEMISTRY METHOD 06/25/2024 10:22 AM [facility] Total Protein 8.3(H) 6.0 - 8.0 g/dL LAB CHEMISTRY METHOD 06/25/2024 10:22 AM [facility] Albumin 3.5 3.2 - 5.0 g/dL LAB CHEMISTRY METHOD 06/25/2024 10:22 AM [facility] Total Bilirubin 0.6 0.0 - 1.4 mg/dL LAB CHEMISTRY METHOD 06/25/2024 10:22 AM [facility] LAB Blood Venous blood specimen / Unknown Venipuncture / Unknown 06/25/2024 5:13 AM EST 06/25/2024 9:01 AM EST us Marian Rowe UPSET OPERATOR LAB BLOOD ORDERABLES Final Resul t [facility] [address] [place] [address], * (ABNORMAL) Complete blood count (06/25/2024 5:13 AM EST) WBC 7.3 4.8 - 10.8 K/mcL LAB HEMETOLOGY METHOD 06/25/2024 10:02 AM [facility] RBC 4.40(L) 4.50 - 5.50 M/mcL LAB HEMETOLOGY METHOD 06/25/2024 10:02 AM [facility] Hemoglobin 14.0 13.5 - 17.5 g/dL LAB HEMETOLOGY METHOD 06/25/2024 10:02 AM [facility] Hematocrit 39.7(L) 42.0 - 54.0 % LAB HEMETOLOGY METHOD 06/25/2024 10:02 AM [facility] MCV 91.3 79.0 - 98.0 FL LAB HEMETOLOGY METHOD 06/25/2024 10:02 AM [facility] LAB MCH 32.2(H) 27.0 - 32.0 pcg LAB HEMETOLOGY METHOD 06/25/2024 10:02 AM [facility] LAB MCHC 35.3 32.0 - 37.0 g/dL LAB HEMETOLOGY METHOD 06/25/2024 10:02 AM EST [facility] RDW 13.7 11.0 - 15.0 % LAB HEMETOLOGY METHOD 06/25/2024 10:02 AM [facility] Platelets 189 130 - 400 K/mcL LAB HEMETOLOGY METHOD 06/25/2024 10:02 AM [facility] MPV 9.8 7.0 - 11.0 FL LAB HEMETOLOGY METHOD 06/25/2024 10:02 AM [facility] NRBC 0.0 <1.0 % LAB HEMETOLOGY METHOD 06/25/2024 10:02 AM [facility] NRBC Absolute 0.00 <0.10 K/mcL LAB HEMETOLOGY METHOD 06/25/2024 10:02 AM [facility] Blood Venous blood specimen / Unknown Venipuncture / Unknown 06/25/2024 5:13 AM EST 06/25/2024 9:01 AM EST [facility] LAB BLOOD ORDERABLES Final Resul t [facility] [address] [place] [address], documented in this encounter Visit Diagnoses Diagnosis Essential (primary) hypertension Unspecified essential hypertension Hypo-osmolality and hyponatremia documented in this encounter Care Teams Public Health Sanitarian Relationship Specialty Start Date End Date Geena Lee MD [address] [place] [phone] PCP - General Family Medicine 03/20/24 documented as of this encounter
--- OUTSIDE RECORDS SUMMARY | 2024-12-19 15:35 | XMS_ITS | Encounter Summary ---
Author Organization [facility] Address [address] [place] [address] Care Team Providers Care Levelman Name Role Phone Geena Lee MD Primary Care Provider + Encounter Details Date Type Department Care Team (Late st Contact Info) Description 03/26/2024 Lab Requisition [facility] - Main Lab [address] [place] [address] Geena Lee MD [address] [address] Chronic systolic (congestive) heart failure (CMS/HCC V24, CMS/HCC V28); Fracture of unspecified part of neck of left femur, subsequent encounter for closed fracture with routine healing Social History Tobacco Use Types Packs/Day Years [...] Procedure Name Priority Date/Time Associated Diagnosis Comments COMPREHENSIVE METABOLIC PANEL Routine 03/26/2024 5:10 AM EST Chronic systolic (congestive) heart failure (CMS/HCC) Fracture of unspecified part of neck of left femur, subsequent encounter for closed fracture with routine healing documented in this encounter Results * (ABNORMAL) Comprehensive metabolic panel (03/26/2024 5:10 AM EST) Sodium 134 133 - 145 mmol/L LAB CHEMISTRY METHOD 03/26/2024 10:59 AM [facility] Potassium 4.4 3.5 - 5.5 mmol/L LAB CHEMISTRY METHOD 03/26/2024 10:59 AM [facility] Chloride 99 96 - 110 mmol/L LAB CHEMISTRY METHOD 03/26/2024 10:59 AM [facility] CO2 26 21 - 32 mmol/L LAB CHEMISTRY METHOD 03/26/2024 10:59 AM [facility] Anion Gap 9 3 - 11 LAB CHEMISTRY METHOD 03/26/2024 10:59 AM [facility] Glucose 84 70 - 100 mg/dL LAB CHEMISTRY METHOD 03/26/2024 10:59 AM [facility] BUN 16 5 - 25 mg/dL LAB CHEMISTRY METHOD 03/26/2024 10:59 AM [facility] Creatinine 0.66(L) 0.70 - 1.30 mg/dL LAB CHEMISTRY METHOD 03/26/2024 10:59 AM [facility] eGFR 102 >=60 mL/min/1. 73m2 LAB CHEMISTRY METHOD 03/26/2024 10:59 AM [facility] Comment:Calculation based on the Chronic Kidney Disease Epidemiology Collaboration (CKD-EPI) equation refit without adjustment for race. BUN/Creatinine Ratio 24.2 LAB CHEMISTRY METHOD 03/26/2024 10:59 AM [facility] Calcium 8.4(L) 8.5 - 10.5 mg/dL LAB CHEMISTRY METHOD 03/26/2024 10:59 AM [facility] AST (SGOT) 27 10 - 42 unit/L LAB CHEMISTRY METHOD 03/26/2024 10:59 AM [facility] ALT (SGPT) 26 10 - 60 unit/L LAB CHEMISTRY METHOD 03/26/2024 10:59 AM [facility] Alkaline Phosphatase 136(H) 42 - 121 unit/L LAB CHEMISTRY METHOD 03/26/2024 10:59 AM EST [facility] Total Protein 6.2 6.0 - 8.0 g/dL LAB CHEMISTRY METHOD 03/26/2024 10:59 AM EST [facility] Albumin 2.5(L) 3.2 - 5.0 g/dL LAB CHEMISTRY METHOD 03/26/2024 10:59 AM [facility] Total Bilirubin 0.5 0.0 - 1.4 mg/dL LAB CHEMISTRY METHOD 03/26/2024 10:59 AM EST [facility] Blood Venous blood specimen / Unknown Venipuncture / Unknown 03/26/2024 5:10 AM EST 03/26/2024 9:55 AM EST us Geena Lee MD LAB BLOOD ORDERABLES Fin al Result [facility] [address] [place] [address], documented in this encounter Visit Diagnoses Diagnosis Chronic systolic (congestive) heart failure (CMS/HCC V24, CMS/HCC V28) Fracture of unspecified part of neck of left femur, subsequent encounter for closed fracture with routine healing documented in this encounter Care Teams Levelman Relationship Specialty Start Date End Date Geena Lee MD [address] [place] [phone] PCP - General Family Medicine 03/20/24 documented as of this encounter
--- OUTSIDE RECORDS SUMMARY | 2024-12-19 15:35 | XMS_ITS | Encounter Summary ---
Author Organization [facility] Address [address] [place] [address] Care Team Providers Care Nailhead Operator Name Role Phone Geena Lee MD Primary Care Provider + Encounter Details Date Type Department Care Team (Late st Contact Info) Description 11/25/2024 Lab Requisition [facility] - Main Lab [address] [facility] [place] [phone] Geena Lee MD [address] [address] Social History Tobacco Use Types Packs/Day Years [...] documented as of this encounter Visit Diagnoses Not on filedocumented in this encounter Care Teams Nailhead Operator Relationship Specialty Start Date End Date Geena Lee MD [address] [phone] PCP - General Family Medicine 03/20/24 documented as of this encounter
--- OUTSIDE RECORDS SUMMARY | 2024-12-19 15:35 | XMS_ITS | Encounter Summary ---
Author Organization [facility] Address [address] [place] [address] Care Team Providers Care Wildland Firefighter Name Role Phone Geena Lee MD Primary Care Provider + Encounter Details Date Type Department Care Team (Late st Contact Info) Description 11/29/2024 Lab Requisition [facility] - Main Lab [address] [place] [address] Geena Lee MD [address] [address] Essential (primary) hypertension Social History [...] Associated Diagnosis Comments COMPLETE BLOOD COUNT Routine 12/02/2024 9:32 AM EDT Essential (primary) hypertension COMPREHENSIVE METABOLIC PANEL Routine 12/02/2024 9:32 AM EDT Essential (primary) hypertension documented in this encounter Results * (ABNORMAL) Complete blood count (12/02/2024 9:32 AM EDT) WBC 4.9 4.8 - 10.8 K/[facility] LAB HEMETOLOGY METHOD 12/02/2024 12:34 PM EDT [facility] RBC 3.90(L) 4.50 - 5.50 M/mcL LAB HEMETOLOGY METHOD 12/02/2024 12:[address] [facility] Hemoglobin 11.3(L) 13.5 - 17.5 g/dL LAB HEMETOLOGY METHOD 12/02/2024 12:[address] [facility] Hematocrit 32.9(L) 42.0 - 54.0 % LAB HEMETOLOGY METHOD 12/02/2024 12:[address] [facility] MCV 84.6 79.0 - 98.0 FL LAB HEMETOLOGY METHOD 12/02/2024 12:[address] [facility] MCH 29.0 27.0 - 32.0 pcg LAB HEMETOLOGY METHOD 12/02/2024 12:[address] [facility] MCHC 34.3 32.0 - 37.0 g/dL LAB HEMETOLOGY METHOD 12/02/2024 12:[address] [facility] RDW 14.8 11.0 - 15.0 % LAB HEMETOLOGY METHOD 12/02/2024 12:[address] [facility] Platelets 179 130 - 400 K/mcL LAB HEMETOLOGY METHOD 12/02/2024 12:[address] [facility] MPV 9.7 7.0 - 11.0 FL LAB HEMETOLOGY METHOD 12/02/2024 12:[address] [facility] NRBC 0.0 <1.0 % LAB HEMETOLOGY METHOD 12/02/2024 12:[address] [facility] NRBC Absolute 0.00 <0.10 K/mcL LAB HEMETOLOGY METHOD 12/02/2024 12:[address] [facility] Blood Venous blood specimen / Unknown Venipuncture / Unknown 12/02/2024 9:32 AM EDT 12/02/2024 11:16 AM EDT us Geena Lee MD LAB BLOOD ORDERABLES Fin al Result [facility] [address] [place] [address], [place] [phone] * (ABNORMAL) Comprehensive metabolic panel (12/02/2024 9:32 AM EDT) Sodium 126(L) 133 - 145 mmol/L LAB CHEMISTRY METHOD 12/02/2024 12:37 PM EDT [facility] Potassium 4.0 3.5 - 5.5 mmol/L LAB CHEMISTRY METHOD 12/02/2024 12:[address] [facility] Chloride 91(L) 96 - 110 mmol/L LAB CHEMISTRY METHOD 12/02/2024 12:[address] [facility] CO2 27 21 - 32 mmol/L LAB CHEMISTRY METHOD 12/02/2024 12:[address] [facility] Anion Gap 8 3 - 11 LAB CHEMISTRY METHOD 12/02/2024 12:[address] [facility] Glucose 81 70 - 100 mg/dL LAB CHEMISTRY METHOD 12/02/2024 12:[address] [facility] BUN 11 5 - 25 mg/dL LAB CHEMISTRY METHOD 12/02/2024 12:[address] [facility] Creatinine 0.69(L) 0.70 - 1.30 mg/dL LAB CHEMISTRY METHOD 12/02/2024 12:[address] [facility] eGFR 100 >=60 mL/min/1. 73m2 LAB CHEMISTRY METHOD 12/02/2024 12:[address] [facility] Comment:Calculation based on the Chronic Kidney Disease Epidemiology Collaboration (CKD-EPI) equation refit without adjustment for race. BUN/Creatinine Ratio 15.9 LAB CHEMISTRY METHOD 12/02/2024 12:[address] [facility] Calcium 8.7 8.5 - 10.5 mg/dL LAB CHEMISTRY METHOD 12/02/2024 12:37 PM EDT [facility] AST (SGOT) 28 10 - 42 unit/L LAB CHEMISTRY METHOD 12/02/2024 12:37 PM EDT [facility] ALT (SGPT) 11 10 - 60 unit/L LAB CHEMISTRY METHOD 12/02/2024 12:37 PM EDT [facility] Alkaline Phosphatase 73 42 - 121 unit/L LAB CHEMISTRY METHOD 12/02/2024 12:37 PM EDT [facility] Total Protein 6.7 6.0 - 8.0 g/dL LAB CHEMISTRY METHOD 12/02/2024 12:[address] [facility] Albumin 3.1(L) 3.2 - 5.0 g/dL LAB CHEMISTRY METHOD 12/02/2024 12:37 PM EDT [facility] Total Bilirubin 0.7 0.0 - 1.4 mg/dL LAB CHEMISTRY METHOD 12/02/2024 12:37 PM EDT [facility] Blood Venous blood specimen / Unknown Venipuncture / Unknown 12/02/2024 9:32 AM EDT 12/02/2024 11:16 AM EDT us Geena Lee MD LAB BLOOD ORDERABLES Fin al Result [facility] [address] [place] [address], documented in this encounter Visit Diagnoses Diagnosis Essential (primary) hypertension Unspecified essential hypertension documented in this encounter Care Teams Wildland Firefighter Relationship Specialty Start Date End Date Geena Lee MD [address] [place] [phone] PCP - General Family Medicine 03/20/24 documented as of this encounter
--- OUTSIDE RECORDS SUMMARY | 2024-12-19 15:35 | XMS_ITS | Encounter Summary ---
Author Organization [facility] Address [address] [place] [address] Care Team Providers Care Furnace Tapper Name Role Phone Geena Lee MD Primary Care Provider + Encounter Details Date Type Department Care Team (Late st Contact Info) Description 12/04/2024 Lab Requisition [facility] - Main Lab 299 [facility] [place] [address] Geena Lee MD [address] [address] Chronic kidney disease, unspecified; Essential (primary) hypertension; Hypo-osmolality and hyponatremia Social [...] Priority Date/Time Associated Diagnosis Comments SODIUM Routine 12/05/2024 6:08 AM EDT Chronic kidney disease, unspecified Essential (primary) hypertension Hypo-osmolality and hyponatremia BASIC METABOLIC PANEL Routine 12/05/2024 6:08 AM EDT Chronic kidney disease, unspecified Essential (primary) hypertension Hypo-osmolality and hyponatremia documented in this encounter Results * (ABNORMAL) Basic metabolic panel (12/05/2024 6:08 AM EDT) Sodium 131(L) 133 - 145 mmol/L LAB CHEMISTRY METHOD 12/05/2024 11:01 AM [facility] Potassium 4.8 3.5 - 5.5 mmol/L LAB CHEMISTRY METHOD 12/05/2024 11:01 AM [facility] Comment:Hemolysis present Chloride 98 96 - 110 mmol/L LAB CHEMISTRY METHOD 12/05/2024 11:01 AM [facility] CO2 24 21 - 32 mmol/L LAB CHEMISTRY METHOD 12/05/2024 11:01 AM [facility] Anion Gap 9 3 - 11 LAB CHEMISTRY METHOD 12/05/2024 11:01 AM [facility] Glucose 52(L) 70 - 100 mg/dL LAB CHEMISTRY METHOD 12/05/2024 11:01 AM [facility] BUN 14 5 - 25 mg/dL LAB CHEMISTRY METHOD 12/05/2024 11:01 AM [facility] Creatinine 0.64(L) 0.70 - 1.30 mg/dL LAB CHEMISTRY METHOD 12/05/2024 11:01 AM [facility] eGFR 102 >=60 mL/min/1. 73m2 LAB CHEMISTRY METHOD 12/05/2024 11:01 AM [facility] Comment:Calculation based on the Chronic Kidney Disease Epidemiology Collaboration (CKD-EPI) equation refit without adjustment for race. BUN/Creatinine Ratio 21.9 LAB CHEMISTRY METHOD 12/05/2024 11:01 AM [facility] Calcium 9.2 8.5 - 10.5 mg/dL LAB CHEMISTRY METHOD 12/05/2024 11:01 AM [facility] Blood Venous blood specimen / Unknown Venipuncture / Unknown 12/05/2024 6:08 AM EDT 12/05/2024 9:30 AM EDT Geena Lee MD LAB BLOOD ORDERABLES Fin al Result [facility] [address] [place] [address], [place] [phone] * (ABNORMAL) Sodium (12/05/2024 6:08 AM EDT) Sodium 131(L) 133 - 145 mmol/L LAB CHEMISTRY METHOD 12/05/2024 11:01 AM EDT [facility] Blood Venous blood specimen / Unknown Venipuncture / Unknown 12/05/2024 6:08 AM EDT 12/05/2024 9:30 AM EDT us Geena Lee MD LAB BLOOD ORDERABLES Fin al Result Performing Organization Address [facility] Co de Phone Number [facility] [address] [place] [address], [place] [phone] documented in this encounter Visit Diagnoses Diagnosis Chronic kidney disease, unspecified Essential (primary) hypertension Unspecified essential hypertension Hypo-osmolality and hyponatremia documented in this encounter Care Teams Furnace Tapper Relationship Specialty Start Date End Date Geena Lee MD [address] [place] [phone] PCP - General Family Medicine 03/20/24 documented as of this encounter
--- OUTSIDE RECORDS SUMMARY | 2024-12-19 15:35 | XMS_ITS | Encounter Summary ---
Author Organization [facility] Address [address] [place] [address] Care Team Providers Care Chief Console Operator Name Role Phone Geena Lee MD Primary Care Provider + Encounter Details Date Type Department Care Team (Late st Contact Info) Description 10/11/2024 Lab Requisition [facility] - Main Lab 299 [facility] [place] [phone] Geena Lee MD [address] [address] Essential (primary) hypertension Social History Tobacco Use [...] hypertension documented in this encounter Care Teams Chief Console Operator Relationship Specialty Start Date End Date Geena Lee MD [address] [phone] PCP - General Family Medicine 03/20/24 documented as of this encounter
--- OUTSIDE RECORDS SUMMARY | 2024-12-19 15:35 | XMS_ITS | Encounter Summary ---
Author Organization [facility] Address [address] [place] [address] Care Team Providers Care Consumer Marketing Analyst Name Role Phone Geena Lee MD Primary Care Provider + Encounter Details Date Type Department Care Team (Late st Contact Info) Description 09/06/2024 Lab Requisition [facility] - Main Lab 299 [facility] [place] [address] Geena Lee MD [address] [place] [phone] Unspecified atrial fibrillation (CMS/HCC V24, CMS/HCC V28); [...] as of this encounter Visit Diagnoses Diagnosis Unspecified atrial fibrillation (CMS/HCC V24, CMS/HCC V28) Chronic kidney disease, unspecified documented in this encounter Care Teams Consumer Marketing Analyst Relationship Specialty Start Date End Date Geena Lee MD [address] [place] [phone] PCP - General Family Medicine 03/20/24 documented as of this encounter
--- OUTSIDE RECORDS SUMMARY | 2024-12-19 15:35 | XMS_ITS | Encounter Summary ---
Author Organization [facility] Address [address] [place] [address] Care Team Providers Care Agriculture Professor Name Role Phone Geena Lee MD Primary Care Provider + Encounter Details Date Type Department Care Team (Late st Contact Info) Description 2024 Lab Requisition [facility] - Main Lab 299 [facility] [place] [address] Geena Lee MD [address] [address] Fracture of unspecified part of neck of left femur, initial encounter for closed fracture (CMS/HCC V24, CMS/HCC V28) Social History Tobacco [...] Associated Diagnosis Comments COMPLETE BLOOD COUNT Routine 2024 11:01 AM EDT Fracture of unspecified part of neck of left femur, initial encounter for closed fracture (CMS/HCC V24, CMS/HCC V28) VALPROIC ACID LEVEL, TOTAL Routine 2024 11:01 AM EDT Fracture of unspecified part of neck of left femur, initial encounter for closed fracture (CMS/HCC V24, CMS/HCC V28) COMPREHENSIVE METABOLIC PANEL Routine 2024 11:01 AM EDT Fracture of unspecified part of neck of left femur, initial encounter for closed fracture ([facility] V24, [facility] V28) documented in this encounter Results * Valproic acid level, total (2024 11:01 AM EDT) Valproic Acid, Total 68 50 - 100 mcg/mL LAB CHEMISTRY METHOD 2024 2:[address] [facility] Blood Venous blood specimen / Unknown Venipuncture / Unknown 2024 11:01 AM EDT 2024 12:03 PM EDT us Geena Lee MD LAB BLOOD ORDERABLES Fin al Result [facility] [address] [place] [address], * (ABNORMAL) Comprehensive metabolic panel (2024 11:01 AM EDT) Sodium 125(L) 133 - 145 mmol/L LAB CHEMISTRY METHOD 2024 2:[address] [facility] Potassium 3.9 3.5 - 5.5 mmol/L LAB CHEMISTRY METHOD 2024 2:[address] [facility] Chloride 90(L) 96 - 110 mmol/L LAB CHEMISTRY METHOD 2024 2:[address] [facility] CO2 27 21 - 32 mmol/L LAB CHEMISTRY METHOD 2024 2:[address] [facility] Anion Gap 8 3 - 11 LAB CHEMISTRY METHOD 2024 2:15 PM [facility] Glucose 92 70 - 100 mg/dL LAB CHEMISTRY METHOD 2024 2:[address] [facility] BUN 12 5 - 25 mg/dL LAB CHEMISTRY METHOD 2024 2:15 PM [facility] Creatinine 0.59(L) 0.70 - 1.30 mg/dL LAB CHEMISTRY METHOD 2024 2:15 PM [facility] eGFR 105 >=60 mL/min/1. 73m2 LAB CHEMISTRY METHOD 2024 2:15 PM [facility] Comment:Calculation based on the Chronic Kidney Disease Epidemiology Collaboration (CKD-EPI) equation refit without adjustment for race. BUN/Creatinine Ratio 20.3 LAB CHEMISTRY METHOD 2024 2:15 PM [facility] Calcium 8.0(L) 8.5 - 10.5 mg/dL LAB CHEMISTRY METHOD 2024 2:15 PM [facility] AST (SGOT) 17 10 - 42 unit/L LAB CHEMISTRY METHOD 2024 2:15 PM [facility] ALT (SGPT) 11 10 - 60 unit/L LAB CHEMISTRY METHOD 2024 2:15 PM [facility] Alkaline Phosphatase 78 42 - 121 unit/L LAB CHEMISTRY METHOD 2024 2:15 PM [facility] Total Protein 6.3 6.0 - 8.0 g/dL LAB CHEMISTRY METHOD 2024 2:15 PM [facility] Albumin 2.7(L) 3.2 - 5.0 g/dL LAB CHEMISTRY METHOD 2024 2:15 PM [facility] Total Bilirubin 0.7 0.0 - 1.4 mg/dL LAB CHEMISTRY METHOD 2024 2:15 PM [facility] Blood Venous blood specimen / Unknown Venipuncture / Unknown 2024 11:01 AM EDT 2024 12:03 PM EDT us Acacia Laba Elder MD LAB BLOOD ORDERABLES Fin al Result [facility] [address] [place] [address], * (ABNORMAL) Complete blood count (2024 11:01 AM EDT) WBC 5.7 4.8 - 10.8 K/mcL LAB HEMETOLOGY METHOD 2024 1:[address] [facility] RBC 3.60(L) 4.50 - 5.50 M/mcL LAB HEMETOLOGY METHOD 2024 1:[address] [facility] Hemoglobin 11.6(L) 13.5 - 17.5 g/dL LAB HEMETOLOGY METHOD 2024 1:[address] [facility] Hematocrit 32.7(L) 42.0 - 54.0 % LAB HEMETOLOGY METHOD 2024 1:[address] [facility] MCV 91.6 79.0 - 98.0 FL LAB HEMETOLOGY METHOD 2024 1:[address] [facility] MCH 32.5(H) 27.0 - 32.0 pcg LAB HEMETOLOGY METHOD 2024 1:[address] [facility] MCHC 35.5 32.0 - 37.0 g/dL LAB HEMETOLOGY METHOD 2024 1:[address] [facility] RDW 13.0 11.0 - 15.0 % LAB HEMETOLOGY METHOD 2024 1:[address] [facility] Platelets 156 130 - 400 K/mcL LAB HEMETOLOGY METHOD 2024 1:[address] [facility] MPV 9.2 7.0 - 11.0 FL LAB HEMETOLOGY METHOD 2024 1:[address] [facility] NRBC 0.0 <1.0 % LAB HEMETOLOGY METHOD 2024 1:[address] [facility] NRBC Absolute 0.00 <0.10 K/mcL LAB HEMETOLOGY METHOD 2024 1:[address] [facility] Blood Venous blood specimen / Unknown Venipuncture / Unknown 2024 11:01 AM EDT 2024 12:03 PM EDT us Geena Lee MD LAB BLOOD ORDERABLES Fin al Result [facility] [address] [place] [address], documented in this encounter Visit Diagnoses Diagnosis Fracture of unspecified part of neck of left femur, initial encounter for closed fracture (CMS/HCC V24, CMS/HCC V28) documented in this encounter Care Teams Agriculture Professor Relationship Specialty Start Date End Date Geena Lee MD [address] [address] PCP - General Family Medicine 03/20/24 documented as of this encounter
--- OUTSIDE RECORDS SUMMARY | 2024-12-19 15:35 | XMS_ITS | Encounter Summary ---
Author Organization [facility] Address [address] [place] [address] Care Team Providers Care Marketing Services Specialist Name Role Phone Geena Lee MD Primary Care Provider + Encounter Details Date Type Department Care Team (Late st Contact Info) Description 11/16/2024 Lab Requisition [facility] - Main Lab [address] [place] [address] Geena Lee MD [address] [address] Essential (primary) hypertension Social History [...] Associated Diagnosis Comments COMPLETE BLOOD COUNT Routine 11/18/2024 9:20 AM EDT Essential (primary) hypertension COMPREHENSIVE METABOLIC PANEL Routine 11/18/2024 9:20 AM EDT Essential (primary) hypertension documented in this encounter Results * (ABNORMAL) Complete blood count (11/18/2024 9:20 AM EDT) WBC 7.1 4.8 - 10.8 K/[facility] LAB HEMETOLOGY METHOD 11/18/2024 12:14 PM EDT [facility] LAB RBC 4.10(L) 4.50 - 5.50 M/mcL LAB HEMETOLOGY METHOD 11/18/2024 12:14 PM [facility] LAB Hemoglobin 11.8(L) 13.5 - 17.5 g/dL LAB HEMETOLOGY METHOD 11/18/2024 12:14 PM [facility] LAB Hematocrit 34.7(L) 42.0 - 54.0 % LAB HEMETOLOGY METHOD 11/18/2024 12:14 PM [facility] MCV 85.3 79.0 - 98.0 FL LAB HEMETOLOGY METHOD 11/18/2024 12:14 PM [facility] MCH 29.0 27.0 - 32.0 pcg LAB HEMETOLOGY METHOD 11/18/2024 12:14 PM [facility] LAB MCHC 34.0 32.0 - 37.0 g/dL LAB HEMETOLOGY METHOD 11/18/2024 12:14 PM [facility] RDW 14.2 11.0 - 15.0 % LAB HEMETOLOGY METHOD 11/18/2024 12:14 PM [facility] LAB Platelets 233 130 - 400 K/mcL LAB HEMETOLOGY METHOD 11/18/2024 12:14 PM [facility] LAB MPV 9.7 7.0 - 11.0 FL LAB HEMETOLOGY METHOD 11/18/2024 12:14 PM [facility] NRBC 0.0 <1.0 % LAB HEMETOLOGY METHOD 11/18/2024 12:14 PM [facility] LAB NRBC Absolute 0.00 <0.10 K/mcL LAB HEMETOLOGY METHOD 11/18/2024 12:14 PM [facility] Blood Venous blood specimen / Unknown Venipuncture / Unknown 11/18/2024 9:20 AM EDT 11/18/2024 10:40 AM EDT us Geena Lee MD LAB BLOOD ORDERABLES Fin al Result [facility] [address] [place] [address], [place] [phone] * (ABNORMAL) Comprehensive metabolic panel (11/18/2024 9:20 AM EDT) Sodium 131(L) 133 - 145 mmol/L LAB CHEMISTRY METHOD 11/18/2024 12:39 PM [facility] Potassium 4.0 3.5 - 5.5 mmol/L LAB CHEMISTRY METHOD 11/18/2024 12:39 PM [facility] Chloride 96 96 - 110 mmol/L LAB CHEMISTRY METHOD 11/18/2024 12:39 PM [facility] CO2 28 21 - 32 mmol/L LAB CHEMISTRY METHOD 11/18/2024 12:39 PM [facility] Anion Gap 7 3 - 11 LAB CHEMISTRY METHOD 11/18/2024 12:39 PM [facility] Glucose 88 70 - 100 mg/dL LAB CHEMISTRY METHOD 11/18/2024 12:39 PM [facility] BUN 19 5 - 25 mg/dL LAB CHEMISTRY METHOD 11/18/2024 12:39 PM [facility] Creatinine 0.75 0.70 - 1.30 mg/dL LAB CHEMISTRY METHOD 11/18/2024 12:39 PM [facility] eGFR 98 >=60 mL/min/1. 73m2 LAB CHEMISTRY METHOD 11/18/2024 12:39 PM [facility] Comment:Calculation based on the Chronic Kidney Disease Epidemiology Collaboration (CKD-EPI) equation refit without adjustment for race. BUN/Creatinine Ratio 25.3 LAB CHEMISTRY METHOD 11/18/2024 12:39 PM [facility] Calcium 9.5 8.5 - 10.5 mg/dL LAB CHEMISTRY METHOD 11/18/2024 12:39 PM T [facility] LAB AST (SGOT) 17 10 - 42 unit/L LAB CHEMISTRY METHOD 11/18/2024 12:39 PM [facility] ALT (SGPT) 16 10 - 60 unit/L LAB CHEMISTRY METHOD 11/18/2024 12:39 PM T [facility] LAB Alkaline Phosphatase 85 42 - 121 unit/L LAB CHEMISTRY METHOD 11/18/2024 12:39 PM [facility] Total Protein 7.4 6.0 - 8.0 g/dL LAB CHEMISTRY METHOD 11/18/2024 12:39 PM [facility] Albumin 3.7 3.2 - 5.0 g/dL LAB CHEMISTRY METHOD 11/18/2024 12:39 PM [facility] Total Bilirubin 0.5 0.0 - 1.4 mg/dL LAB CHEMISTRY METHOD 11/18/2024 12:39 PM [facility] Blood Venous blood specimen / Unknown Venipuncture / Unknown 11/18/2024 9:20 AM EDT 11/18/2024 10:40 AM EDT us Geena Lee MD LAB BLOOD ORDERABLES Fin al Result [facility] [address] [place] [address], documented in this encounter Visit Diagnoses Diagnosis Essential (primary) hypertension Unspecified essential hypertension documented in this encounter Care Teams Marketing Services Specialist Relationship Specialty Start Date End Date Geena Lee MD [address] [place] [phone] PCP - General Family Medicine 03/20/24 documented as of this encounter
--- OUTSIDE RECORDS SUMMARY | 2024-12-19 15:36 | XMS_ITS | Encounter Summary ---
Author Organization [facility] Address [address] [place] [address] Care Team Providers Care Analytical Manager Name Role Phone Geena Lee MD Primary Care Provider + Encounter Details Date Type Department Care Team (Late st Contact Info) Description 12/05/2024 Lab Requisition [facility] - Main Lab 299 [facility] [place] [address] Geena Lee MD [address] [phone] Urinary tract infection, site not specified Social History Tobacco Use Types Packs/Day Years [...] Procedure Name Priority Date/Time Associated Diagnosis Comments URINALYSIS WITH REFLEX MICROSCOPIC AND CULTURE Routine 12/05/2024 12:00 AM EDT Urinary tract infection, site not specified SARGENT URINE CULTURE TUBE Routine 12/05/2024 12:00 AM EDT Urinary tract infection, site not specified URINALYSIS WITH REFLEX MICROSCOPIC AND CULTURE Routine 12/05/2024 12:00 AM EDT Urinary tract infection, site not specified documented in this encounter Results * Sargent urine culture tube (12/05/2024 12:00 AM EDT) [facility] Extra Tube Hold for add-ons. 12/05/2024 12:01 PM EDT [facility] LAB Comment:Auto resulted. Urine Urine specimen obtained by clean catch procedure / Unknown 12/05/2024 12/05/2024 10:47 AM EDT us Geena Lee MD LAB URINE ORDERABLES Fin al Result [facility] [address] [place] [address], [place] [phone] * (ABNORMAL) Urinalysis with reflex microscopic and culture (12/05/2024 12:00 AM EDT) [facility] Specific Alva Urine 1.026 1.003 - 1.030 LAB URINALYSIS - AUTOMATED METHOD 12/05/2024 10:54 AM [facility] pH, Urine 6.5 5.0 - 8.0 pH LAB URINALYSIS - AUTOMATED METHOD 12/05/2024 10:54 AM [facility] Leukocytes, Urine Negative Negative LAB URINALYSIS - AUTOMATED METHOD 12/05/2024 10:54 AM [facility] Nitrite, Urine Negative Negative LAB URINALYSIS - AUTOMATED METHOD 12/05/2024 10:54 AM [facility] Protein, Urine Trace <=Trace mg/dL LAB URINALYSIS - AUTOMATED METHOD 12/05/2024 10:54 AM [facility] Glucose, Urine Negative Negative mg/dL LAB URINALYSIS - AUTOMATED METHOD 12/05/2024 10:54 AM [facility] Ketones, Urine Trace(A) Negative mg/dL LAB URINALYSIS - AUTOMATED METHOD 12/05/2024 10:54 AM [facility] Urobilinogen, Urine 1.0 0.2 - 1.0 mg/dL LAB URINALYSIS - AUTOMATED METHOD 12/05/2024 10:54 AM EDT [facility] Bilirubin, Urine Negative Negative LAB URINALYSIS - AUTOMATED METHOD 12/05/2024 10:54 AM EDT [facility] Blood, Urine Negative Negative LAB URINALYSIS - AUTOMATED METHOD 12/05/2024 10:54 AM EDT [facility] Urine Urine specimen obtained by clean catch procedure / Unknown Non-blood Collection / Unknown 12/05/2024 12/05/2024 10:47 AM EDT us Geena Lee MD LAB URINE ORDERABLES Fin al Result [facility]) [facility] [address] [place] [address], [place] [phone] documented in this encounter Visit Diagnoses Diagnosis Urinary tract infection, site not specified documented in this encounter Care Teams Analytical Manager Relationship Specialty Start Date End Date Geena Lee MD [address] [address] PCP - General Family Medicine 03/20/24 documented as of this encounter
--- OUTSIDE RECORDS SUMMARY | 2024-12-19 15:36 | XMS_ITS | Encounter Summary ---
Author Organization [facility] Address [address] [place] [address] Care Team Providers Care Door Cutter Name Role Phone Geena Lee MD Primary Care Provider + Encounter Details Date Type Department Care Team (Late st Contact Info) Description 09/26/2024 Lab Requisition [facility] - Main Lab [address] [place] [address] Geena Lee MD [address] [phone] Essential (primary) hypertension Social History Tobacco Use [...] Associated Diagnosis Comments COMPLETE BLOOD COUNT Routine 09/27/2024 7:13 AM EDT Essential (primary) hypertension COMPREHENSIVE METABOLIC PANEL Routine 09/27/2024 7:13 AM EDT Essential (primary) hypertension documented in this encounter Results * (ABNORMAL) Comprehensive metabolic panel (09/27/2024 7:13 AM EDT) Sodium 129(L) 133 - 145 mmol/L LAB CHEMISTRY METHOD 09/27/2024 10:53 AM EDT [facility] ([facility]) [facility] LAB Potassium 4.1 3.5 - 5.5 mmol/L LAB CHEMISTRY METHOD 09/27/2024 10:53 AM [facility] Chloride 94(L) 96 - 110 mmol/L LAB CHEMISTRY METHOD 09/27/2024 10:53 AM [facility] CO2 27 21 - 32 mmol/L LAB CHEMISTRY METHOD 09/27/2024 10:53 AM [facility] Anion Gap 8 3 - 11 LAB CHEMISTRY METHOD 09/27/2024 10:53 AM [facility] Glucose 83 70 - 100 mg/dL LAB CHEMISTRY METHOD 09/27/2024 10:53 AM [facility] BUN 8 5 - 25 mg/dL LAB CHEMISTRY METHOD 09/27/2024 10:53 AM [facility] Creatinine 0.65(L) 0.70 - 1.30 mg/dL LAB CHEMISTRY METHOD 09/27/2024 10:53 AM [facility] LAB eGFR 102 >=60 mL/min/1. 73m2 LAB CHEMISTRY METHOD 09/27/2024 10:53 AM [facility] Comment:Calculation based on the Chronic Kidney Disease Epidemiology Collaboration (CKD-EPI) equation refit without adjustment for race. BUN/Creatinine Ratio 12.3 LAB CHEMISTRY METHOD 09/27/2024 10:53 AM [facility] Calcium 8.2(L) 8.5 - 10.5 mg/dL LAB CHEMISTRY METHOD 09/27/2024 10:53 AM [facility] AST (SGOT) 14 10 - 42 unit/L LAB CHEMISTRY METHOD 09/27/2024 10:53 AM [facility] ALT (SGPT) 11 10 - 60 unit/L LAB CHEMISTRY METHOD 09/27/2024 10:53 AM [facility] Alkaline Phosphatase 72 42 - 121 unit/L LAB CHEMISTRY METHOD 09/27/2024 10:53 AM [facility] Total Protein 6.0 6.0 - 8.0 g/dL LAB CHEMISTRY METHOD 09/27/2024 10:53 AM EDT [facility] Albumin 2.7(L) 3.2 - 5.0 g/dL LAB CHEMISTRY METHOD 09/27/2024 10:53 AM [facility] Total Bilirubin 0.6 0.0 - 1.4 mg/dL LAB CHEMISTRY METHOD 09/27/2024 10:53 AM EDT [facility] Blood Venous blood specimen / Unknown Venipuncture / Unknown 09/27/2024 7:13 AM EDT 09/27/2024 9:34 AM EDT us Geena Lee MD LAB BLOOD ORDERABLES Fin al Result [facility] [address] [place] [address], * (ABNORMAL) Complete blood count (09/27/2024 7:13 AM EDT) WBC 6.0 4.8 - 10.8 K/mcL LAB HEMETOLOGY METHOD 09/27/2024 9:54 AM [facility] RBC 2.40(L) 4.50 - 5.50 M/mcL LAB HEMETOLOGY METHOD 09/27/2024 9:54 AM [facility] Hemoglobin 7.7(L) 13.5 - 17.5 g/dL LAB HEMETOLOGY METHOD 09/27/2024 9:54 AM [facility] Hematocrit 23.8(L) 42.0 - 54.0 % LAB HEMETOLOGY METHOD 09/27/2024 9:54 AM [facility] LAB MCV 97.5 79.0 - 98.0 FL LAB HEMETOLOGY METHOD 09/27/2024 9:54 AM [facility] LAB MCH 31.6 27.0 - 32.0 pcg LAB HEMETOLOGY METHOD 09/27/2024 9:54 AM EDT [facility] MCHC 32.4 32.0 - 37.0 g/dL LAB HEMETOLOGY METHOD 09/27/2024 9:54 AM EDT [facility] RDW 16.8(H) 11.0 - 15.0 % LAB HEMETOLOGY METHOD 09/27/2024 9:54 AM EDT [facility] LAB Platelets 236 130 - 400 K/mcL LAB HEMETOLOGY METHOD 09/27/2024 9:54 AM EDT [facility] MPV 8.9 7.0 - 11.0 FL LAB HEMETOLOGY METHOD 09/27/2024 9:54 AM EDT [facility] NRBC 0.0 <1.0 % LAB HEMETOLOGY METHOD 09/27/2024 9:54 AM EDT [facility] NRBC Absolute 0.00 <0.10 K/mcL LAB HEMETOLOGY METHOD 09/27/2024 9:54 AM EDT [facility] Blood Venous blood specimen / Unknown Venipuncture / Unknown 09/27/2024 7:13 AM EDT 09/27/2024 9:35 AM EDT us Geena Lee MD LAB BLOOD ORDERABLES Fin al Result [facility] [address] [place] [address], documented in this encounter Visit Diagnoses Diagnosis Essential (primary) hypertension Unspecified essential hypertension documented in this encounter Care Teams Door Cutter Relationship Specialty Start Date End Date Geena Lee MD [address] [phone] PCP - General Family Medicine 03/20/24 documented as of this encounter
--- OUTSIDE RECORDS SUMMARY | 2024-12-19 15:36 | XMS_ITS | Encounter Summary ---
Author Organization [facility] Address [address] [place] [address] Care Team Providers Care Internal Control Specialist Name Role Phone Geena Lee MD Primary Care Provider + Encounter Details Date Type Department Care Team (Late st Contact Info) Description 09/22/2024 Lab Requisition [facility] - Main Lab [address] [place] [address] Geena Lee MD [address] [phone] Essential (primary) hypertension Social History Tobacco Use [...] Associated Diagnosis Comments COMPLETE BLOOD COUNT Routine 09/23/2024 7:33 AM EDT Essential (primary) hypertension COMPREHENSIVE METABOLIC PANEL Routine 09/23/2024 7:33 AM EDT Essential (primary) hypertension documented in this encounter Results * (ABNORMAL) Comprehensive metabolic panel (09/23/2024 7:33 AM EDT) Sodium 127(L) 133 - 145 mmol/L LAB CHEMISTRY METHOD 09/23/2024 11:49 AM EDT [facility] ([facility]) [facility] LAB Potassium 4.0 3.5 - 5.5 mmol/L LAB CHEMISTRY METHOD 09/23/2024 11:49 AM [facility] LAB Chloride 93(L) 96 - 110 mmol/L LAB CHEMISTRY METHOD 09/23/2024 11:49 AM [facility] CO2 27 21 - 32 mmol/L LAB CHEMISTRY METHOD 09/23/2024 11:49 AM [facility] LAB Anion Gap 7 3 - 11 LAB CHEMISTRY METHOD 09/23/2024 11:49 AM [facility] Glucose 75 70 - 100 mg/dL LAB CHEMISTRY METHOD 09/23/2024 11:49 AM [facility] BUN 8 5 - 25 mg/dL LAB CHEMISTRY METHOD 09/23/2024 11:49 AM [facility] Creatinine 0.58(L) 0.70 - 1.30 mg/dL LAB CHEMISTRY METHOD 09/23/2024 11:49 AM [facility] LAB eGFR 106 >=60 mL/min/1. 73m2 LAB CHEMISTRY METHOD 09/23/2024 11:49 AM [facility] LAB Comment:Calculation based on the Chronic Kidney Disease Epidemiology Collaboration (CKD-EPI) equation refit without adjustment for race. BUN/Creatinine Ratio 13.8 LAB CHEMISTRY METHOD 09/23/2024 11:49 AM [facility] Calcium 8.5 8.5 - 10.5 mg/dL LAB CHEMISTRY METHOD 09/23/2024 11:49 AM [facility] AST (SGOT) 16 10 - 42 unit/L LAB CHEMISTRY METHOD 09/23/2024 11:49 AM [facility] ALT (SGPT) 14 10 - 60 unit/L LAB CHEMISTRY METHOD 09/23/2024 11:49 AM [facility] Alkaline Phosphatase 79 42 - 121 unit/L LAB CHEMISTRY METHOD 09/23/2024 11:49 AM [facility] Total Protein 6.3 6.0 - 8.0 g/dL LAB CHEMISTRY METHOD 09/23/2024 11:49 AM T [facility] LAB Albumin 2.9(L) 3.2 - 5.0 g/dL LAB CHEMISTRY METHOD 09/23/2024 11:49 AM EDT [facility] Total Bilirubin 0.5 0.0 - 1.4 mg/dL LAB CHEMISTRY METHOD 09/23/2024 11:49 AM EDT [facility] Blood Venous blood specimen / Unknown Venipuncture / Unknown 09/23/2024 7:33 AM EDT 09/23/2024 10:26 AM EDT us Geena Lee MD LAB BLOOD ORDERABLES Fin al Result [facility] [address] [place] [address], * (ABNORMAL) Complete blood count (09/23/2024 7:33 AM EDT) WBC 7.8 4.8 - 10.8 K/mcL LAB HEMETOLOGY METHOD 09/23/2024 11:29 AM [facility] RBC 2.30(L) 4.50 - 5.50 M/mcL LAB HEMETOLOGY METHOD 09/23/2024 11:29 AM [facility] Hemoglobin 7.5(L) 13.5 - 17.5 g/dL LAB HEMETOLOGY METHOD 09/23/2024 11:29 AM [facility] Hematocrit 22.9(L) 42.0 - 54.0 % LAB HEMETOLOGY METHOD 09/23/2024 11:29 AM [facility] MCV 100.0(H) 79.0 - 98.0 FL LAB HEMETOLOGY METHOD 09/23/2024 11:29 AM [facility] MCH 32.8(H) 27.0 - 32.0 pcg LAB HEMETOLOGY METHOD 09/23/2024 11:29 AM EDT [facility] MCHC 32.8 32.0 - 37.0 g/dL LAB HEMETOLOGY METHOD 09/23/2024 11:29 AM EDT [facility] RDW 16.7(H) 11.0 - 15.0 % LAB HEMETOLOGY METHOD 09/23/2024 11:29 AM EDT [facility] Platelets 215 130 - 400 K/mcL LAB HEMETOLOGY METHOD 09/23/2024 11:29 AM EDT [facility] MPV 9.0 7.0 - 11.0 FL LAB HEMETOLOGY METHOD 09/23/2024 11:29 AM EDT [facility] NRBC 0.0 <1.0 % LAB HEMETOLOGY METHOD 09/23/2024 11:29 AM EDT [facility] NRBC Absolute 0.00 <0.10 K/mcL LAB HEMETOLOGY METHOD 09/23/2024 11:29 AM EDT [facility] Blood Venous blood specimen / Unknown Venipuncture / Unknown 09/23/2024 7:33 AM EDT 09/23/2024 10:22 AM EDT us Geena Lee MD LAB BLOOD ORDERABLES Fin al Result [facility] [address] [place] [address], documented in this encounter Visit Diagnoses Diagnosis Essential (primary) hypertension Unspecified essential hypertension documented in this encounter Care Teams Internal Control Specialist Relationship Specialty Start Date End Date Geena Lee MD [address] [address] PCP - General Family Medicine 03/20/24 documented as of this encounter
--- OUTSIDE RECORDS SUMMARY | 2024-12-19 15:36 | XMS_ITS | Encounter Summary ---
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); Hypo-osmolality and hyponatremia Social History Tobacco Use [...] Procedure Name Priority Date/Time Associated Diagnosis Comments SODIUM, URINE, RANDOM Routine 09/23/2024 12:00 AM EDT Chronic systolic (congestive) heart failure (CMS/HCC V24, CMS/HCC V28) 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) Hypo-osmolality and hyponatremia OSMOLALITY, URINE Routine 09/23/2024 12: 00 AM EDT Chronic systolic (congestive) heart failure (CMS/HCC V24, CMS/HCC V28) 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/ZIP Co de Phone Number [facility] [address] [place] [address], [place] [phone] * Osmolality, urine (09/23/2024 12:00 AM EDT) Osmolality, Urine 488 300 - 1,300 mOsm/kg LAB CHEMISTRY METHOD 09/24/2024 11:41 AM EDT [facility] Urine Urine specimen obtained by clean catch procedure / Unknown Non-blood Collection / Unknown 09/23/2024 09/24/2024 9:02 AM EDT Geena Lee MD LAB URINE ORDERABLES Fin al Result [facility] [address] [place] [address], [place] [phone] documented in this encounter Visit Diagnoses Diagnosis Chronic systolic (congestive) heart failure (CMS/HCC V24, CMS/HCC V28) 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
--- OUTSIDE RECORDS SUMMARY | 2024-12-19 15:36 | XMS_ITS | Encounter Summary ---
Author Organization [facility] Address [address] [place] [address] Care Team Providers Care Partition Notcher Name Role Phone Geena Lee MD Primary Care Provider + Encounter Details Date Type Department Care Team (Late st Contact Info) Description 12/05/2024 Lab Requisition [facility] - Main Lab [address] [place] [address] Geena Lee MD [address] [address] Essential (primary) hypertension Social History [...] Associated Diagnosis Comments COMPLETE BLOOD COUNT Routine 12/06/2024 7:51 AM EDT Essential (primary) hypertension documented in this encounter Results * (ABNORMAL) Complete blood count (12/06/2024 7:51 AM EDT) WBC 5.4 4.8 - 10.8 K/[facility] LAB HEMETOLOGY METHOD 12/06/2024 9:34 AM EDT [facility] ([facility] LAB RBC 4.10(L) 4.50 - 5.50 M/[facility] LAB HEMETOLOGY METHOD 12/06/2024 9:34 AM [facility] Hemoglobin 11.9(L) 13.5 - 17.5 g/dL LAB HEMETOLOGY METHOD 12/06/2024 9:34 AM [facility] Hematocrit 35.4(L) 42.0 - 54.0 % LAB HEMETOLOGY METHOD 12/06/2024 9:34 AM [facility] MCV 85.5 79.0 - 98.0 FL LAB HEMETOLOGY METHOD 12/06[facility]2024 9[facility] MCH 28.7 27.0 - 32.0 pcg LAB HEMETOLOGY METHOD 12/06/2024 9:34 AM [facility] MCHC 33.6 32.0 - 37.0 g/dL LAB HEMETOLOGY METHOD 12/06/2024 9:34 AM [facility] RDW 14.9 11.0 - 15.0 % LAB HEMETOLOGY METHOD 12/06/2024 9:34 AM [facility] Platelets 181 130 - 400 K/mcL LAB HEMETOLOGY METHOD 12/06/2024 9:34 AM [facility] MPV 9.6 7.0 - 11.0 FL LAB HEMETOLOGY METHOD 12/06/2024 9:34 AM [facility] NRBC 0.0 <1.0 % LAB HEMETOLOGY METHOD 12/06/2024 9:34 AM [facility] NRBC Absolute 0.00 <0.10 K/mcL LAB HEMETOLOGY METHOD 12/06/2024 9:34 AM [facility] Blood Venous blood specimen / Unknown Venipuncture / Unknown 12/06/2024 7:51 AM EDT 12/06/2024 8:40 AM EDT Geena Lee MD LAB BLOOD ORDERABLES Fin al Result [facility] ([facility] LAB [address] [place] [address], documented in this encounter Visit Diagnoses Diagnosis Essential (primary) hypertension Unspecified essential hypertension documented in this encounter Care Teams Partition Notcher Relationship Specialty Start Date End Date Geena Lee MD [address] [place] [id number] PCP - General Family Medicine 03/20/24 documented as of this encounter
--- OUTSIDE RECORDS SUMMARY | 2024-12-19 15:36 | XMS_ITS | Encounter Summary ---
Author Organization [facility] Address [address] [place] [address] Care Team Providers Care Alarm Security Or Surveillance Monitor Name Role Phone Geena Lee MD Primary Care Provider + Encounter Details Date Type Department Care Team (Late st Contact Info) Description 09/27/2024 Lab Requisition [facility] - Main Lab [address] [place] [address] Geena Lee MD [address] [phone] Essential (primary) hypertension Social History Tobacco Use [...] Associated Diagnosis Comments COMPLETE BLOOD COUNT Routine 09/30/2024 9:00 AM EDT Essential (primary) hypertension COMPREHENSIVE METABOLIC PANEL Routine 09/30/2024 9:00 AM EDT Essential (primary) hypertension documented in this encounter Results * (ABNORMAL) Comprehensive metabolic panel (09/30/2024 9:00 AM EDT) Sodium 126(L) 133 - 145 mmol/L LAB CHEMISTRY METHOD 09/30/2024 12:05 PM EDT [facility] ([facility] Potassium 4.0 3.5 - 5.5 mmol/L LAB CHEMISTRY METHOD 09/30/2024 12:05 PM [facility] Chloride 92(L) 96 - 110 mmol/L LAB CHEMISTRY METHOD 09/30/2024 12:05 PM [facility] CO2 25 21 - 32 mmol/L LAB CHEMISTRY METHOD 09/30/2024 12:05 PM [facility] Anion Gap 9 3 - 11 LAB CHEMISTRY METHOD 09/30/2024 12:05 PM [facility] Glucose 108(H) 70 - 100 mg/dL LAB CHEMISTRY METHOD 09/30/2024 12:05 PM [facility] BUN 11 5 - 25 mg/dL LAB CHEMISTRY METHOD 09/30/2024 12:05 PM [facility] Creatinine 0.69(L) 0.70 - 1.30 mg/dL LAB CHEMISTRY METHOD 09/30/2024 12:05 PM [facility] eGFR 100 >=60 mL/min/1. 73m2 LAB CHEMISTRY METHOD 09/30/2024 12:05 PM [facility] Comment:Calculation based on the Chronic Kidney Disease Epidemiology Collaboration (CKD-EPI) equation refit without adjustment for race. BUN/Creatinine Ratio 15.9 LAB CHEMISTRY METHOD 09/30/2024 12:05 PM [facility] Calcium 8.5 8.5 - 10.5 mg/dL LAB CHEMISTRY METHOD 09/30/2024 12:05 PM [facility] AST (SGOT) 12 10 - 42 unit/L LAB CHEMISTRY METHOD 09/30/2024 12:05 PM [facility] ALT (SGPT) 10 10 - 60 unit/L LAB CHEMISTRY METHOD 09/30/2024 12:05 PM [facility] Alkaline Phosphatase 79 42 - 121 unit/L LAB CHEMISTRY METHOD 09/30/2024 12:05 PM [facility] Total Protein 6.4 6.0 - 8.0 g/dL LAB CHEMISTRY METHOD 09/30/2024 12:05 PM T [facility] Albumin 3.0(L) 3.2 - 5.0 g/dL LAB CHEMISTRY METHOD 09/30/2024 12:05 PM [facility] Total Bilirubin 0.8 0.0 - 1.4 mg/dL LAB CHEMISTRY METHOD 09/30/2024 12:05 PM EDT [facility] Blood Venous blood specimen / Unknown Venipuncture / Unknown 09/30/2024 9:00 AM EDT 09/30/2024 11:00 AM EDT us Geena Lee MD LAB BLOOD ORDERABLES Fin al Result [facility] [address] [place] [address], * (ABNORMAL) Complete blood count (09/30/2024 9:00 AM EDT) WBC 6.8 4.8 - 10.8 K/mcL LAB HEMETOLOGY METHOD 09/30/2024 1:15 PM [facility] RBC 2.90(L) 4.50 - 5.50 M/mcL LAB HEMETOLOGY METHOD 09/30/2024 1:15 PM [facility] Hemoglobin 9.1(L) 13.5 - 17.5 g/dL LAB HEMETOLOGY METHOD 09/30/2024 1:15 PM T [facility] Hematocrit 28.1(L) 42.0 - 54.0 % LAB HEMETOLOGY METHOD 09/30/2024 1:15 PM [facility] MCV 96.2 79.0 - 98.0 FL LAB HEMETOLOGY METHOD 09/30/2024 1:15 PM [facility] MCH 31.2 27.0 - 32.0 pcg LAB HEMETOLOGY METHOD 09/30/2024 1:15 PM EDT [facility] MCHC 32.4 32.0 - 37.0 g/dL LAB HEMETOLOGY METHOD 09/30/2024 1:15 PM EDT [facility] RDW 16.6(H) 11.0 - 15.0 % LAB HEMETOLOGY METHOD 09/30/2024 1:15 PM EDT [facility] Platelets 260 130 - 400 K/mcL LAB HEMETOLOGY METHOD 09/30/2024 1:15 PM EDT [facility] MPV 8.8 7.0 - 11.0 FL LAB HEMETOLOGY METHOD 09/30/2024 1:15 PM EDT [facility] NRBC 0.0 <1.0 % LAB HEMETOLOGY METHOD 09/30/2024 1:15 PM EDT [facility] NRBC Absolute 0.00 <0.10 K/mcL LAB HEMETOLOGY METHOD 09/30/2024 1:15 PM EDT [facility] Blood Venous blood specimen / Unknown Venipuncture / Unknown 09/30/2024 9:00 AM EDT 09/30/2024 11:00 AM EDT us Geena Lee MD LAB BLOOD ORDERABLES Fin al Result [facility] [address] [place] [address], documented in this encounter Visit Diagnoses Diagnosis Essential (primary) hypertension Unspecified essential hypertension documented in this encounter Care Teams Alarm Security Or Surveillance Monitor Relationship Specialty Start Date End Date Geena Lee MD [address] [address] PCP - General Family Medicine 03/20/24 documented as of this encounter
--- OUTSIDE RECORDS SUMMARY | 2024-12-19 15:36 | XMS_ITS | Encounter Summary ---
Author Organization [facility] Address [address] [place] [address] Care Team Providers Care Metal Cut Off Saw Tender Name Role Phone Geena Lee MD Primary Care Provider + Encounter Details Date Type Department Care Team (Late st Contact Info) Description 09/26/2024 Lab Requisition [facility] - Main Lab [address] [facility] [place] [address] Geena Lee MD [address] [phone] Essential (primary) hypertension; Hyperlipidemia, unspecified Social History Tobacco Use Types Packs/Day [...] Procedure Name Priority Date/Time Associated Diagnosis Comments IRON AND TIBC Routine 09/26/2024 6:01 AM EDT Essential (primary) hypertension Hyperlipidemia, unspecified COMPLETE BLOOD COUNT Routine 09/26/2024 6:01 AM EDT Essential (primary) hypertension Hyperlipidemia, unspecified FOLATE Routine 09/26/2024 6:01 AM EDT Essential (primary) hypertension Hyperlipidemia, unspecified FERRITIN Routine 09/26/2024 6:01 AM EDT Essential (primary) hypertension Hyperlipidemia, unspecified VITAMIN B12 Routine 09/26/2024 6:01 AM EDT Essential (primary) hypertension Hyperlipidemia, unspecified documented in this encounter Results * Folate (09/26/2024 6:01 AM EDT) Folate 9.8 2.8 - 17.0 ng/ml LAB CHEMISTRY METHOD 09/26/2024 9:36 AM EDT [facility] Blood Venous blood specimen / Unknown Venipuncture / Unknown 09/26/2024 6:01 AM EDT 09/26/2024 7:31 AM EDT Geena Lee MD LAB BLOOD ORDERABLES Fin al Result Performing Organization Address City/[facility]/ZIP Co de Phone Number [facility] [address] [place] [address], [place] [phone] * (ABNORMAL) Vitamin B12 (09/26/2024 6:01 AM EDT) Vitamin B-12 942(H) 250 - 900 pcg/mL LAB CHEMISTRY METHOD 09/26/2024 9:36 AM EDT [facility] Blood Venous blood specimen / Unknown Venipuncture / Unknown 09/26/2024 6:01 AM EDT 09/26/2024 7:31 AM EDT Geena Lee MD LAB BLOOD ORDERABLES Fin al Result [facility] [address] [place] [address], [place] [phone] * Ferritin (09/26/2024 6:01 AM EDT) Ferritin 101 26 - 388 ng/mL LAB CHEMISTRY METHOD 09/26/2024 9:36 AM EDT [facility] Blood Venous blood specimen / Unknown Venipuncture / Unknown 09/26/2024 6:01 AM EDT 09/26/2024 7:31 AM EDT Geena Lee MD LAB BLOOD ORDERABLES Fin al Result Performing Organization Address [facility]/ZIP Co de Phone Number [facility] [address] [place] [address], [place] [phone] * (ABNORMAL) Iron and TIBC (09/26/2024 6:01 AM EDT) Iron 48(L) 50 - 160 mcg/dL LAB CHEMISTRY METHOD 09/26/2024 9:36 AM EDT [facility] TIBC 265 250 - 450 mcg/dL LAB CHEMISTRY METHOD 09/26/2024 9:36 AM EDT [facility] Iron Saturation 18(L) 20 - 50 % LAB CHEMISTRY METHOD 09/26/2024 9:36 AM EDT [facility] Blood Venous blood specimen / Unknown Venipuncture / Unknown 09/26/2024 6:01 AM EDT 09/26/2024 7:31 AM EDT Geena Lee MD LAB BLOOD ORDERABLES Fin al Result Performing Organization Address [facility]/[place] de Phone Number [facility] [address] [place] [address], [place] [phone] * (ABNORMAL) Complete blood count (09/26/2024 6:01 AM EDT) WBC 6.7 4.8 - 10.8 K/mcL LAB HEMETOLOGY METHOD 09/26/2024 8:05 AM EDT [facility] RBC 2.40(L) 4.50 - 5.50 M/mcL LAB HEMETOLOGY METHOD 09/26/2024 8:05 AM EDT [facility] Hemoglobin 8.0(L) 13.5 - 17.5 g/dL LAB HEMETOLOGY METHOD 09/26/2024 8:05 AM [facility] Hematocrit 24.2(L) 42.0 - 54.0 % LAB HEMETOLOGY METHOD 09/26/2024 8:05 AM [facility] MCV 100.0(H) 79.0 - 98.0 FL LAB HEMETOLOGY METHOD 09/26/2024 8:05 AM [facility] MCH 33.1(H) 27.0 - 32.0 pcg LAB HEMETOLOGY METHOD 09/26/2024 8:05 AM [facility] MCHC 33.1 32.0 - 37.0 g/dL LAB HEMETOLOGY METHOD 09/26/2024 8:05 AM [facility] RDW 16.8(H) 11.0 - 15.0 % LAB HEMETOLOGY METHOD 09/26/2024 8:05 AM [facility] Platelets 230 130 - 400 K/mcL LAB HEMETOLOGY METHOD 09/26/2024 8:05 AM [facility] MPV 9.1 7.0 - 11.0 FL LAB HEMETOLOGY METHOD 09/26/2024 8:05 AM [facility] NRBC 0.0 <1.0 % LAB HEMETOLOGY METHOD 09/26/2024 8:05 AM [facility] NRBC Absolute 0.00 <0.10 K/mcL LAB HEMETOLOGY METHOD 09/26/2024 8:05 AM [facility] Blood Venous blood specimen / Unknown Venipuncture / Unknown 09/26/2024 6:01 AM EDT 09/26/2024 7:31 AM EDT us Geena Lee MD LAB BLOOD ORDERABLES Fin al Result [facility] [address] [place] [address], documented in this encounter Visit Diagnoses Diagnosis Essential (primary) hypertension Unspecified essential hypertension Hyperlipidemia, unspecified documented in this encounter Care Teams Metal Cut Off Saw Tender Relationship Specialty Start Date End Date Geena Lee MD [address] [address] PCP - General Family Medicine 03/20/24 documented as of this encounter
--- OUTSIDE RECORDS SUMMARY | 2024-12-19 15:36 | XMS_ITS | Clinical Summary ---
Author Organization [address] Address [address] [place] [address] Phone Care Team Providers Care Fleet Administrative Assistant Name Role Phone Geena Lee MD Primary Care Provider + Encounters Date Type Department Care Team Description 12/18/2024 Lab Requisition [facility] Lab [address] [place] [phone] Geena Lee MD Chronic kidney disease, unspecified; Essential (primary) hypertension 12/13/2024 Lab Requisition [facility] Lab [address] [place] [address] Geena Lee MD Essential (primary) hypertension 12/11/2024 Lab Requisition [facility] Lab [address] [place] [address] Geena Lee MD Chronic kidney disease, unspecified; Essential (primary) hypertension 12/07/2024 Lab Requisition [facility] Lab [address] [place] [address] Geena Lee MD Essential (primary) hypertension 12/05/2024 Lab Requisition [facility] Main Lab [address] [place] [address] Geena Lee MD Essential (primary) hypertension 12/05/2024 Lab Requisition [facility] Lab [address] [place] [address] Geena Lee MD Urinary tract infection, site not specified 12/04/2024 Lab Requisition [facility] Lab [address] [place] [address] Geena Lee MD Chronic kidney disease, unspecified; Essential (primary) hypertension; Hypo-osmolality and hyponatremia 12/03/2024 Lab Requisition [facility] Main Lab [address] [place] [address] Geena Lee MD Hypo-osmolality and hyponatremia 11/29/2024 Lab Requisition [facility] Main Lab [address] [place] [address] Geena Lee MD Essential (primary) hypertension 11/27/2024 Lab Requisition [facility] Lab [address] [place] [address] Geena Lee MD Chronic kidney disease, unspecified; Essential (primary) hypertension 11/25/2024 Lab Requisition [facility] Lab [address] [place] [address] Geena Lee MD Essential (primary) hypertension 11/25/2024 Lab Requisition [facility] Lab [address] [place] [address] Geena Lee MD 11/24/2024 Lab Requisition [facility] Lab [address] [place] [address] Geena Lee MD Essential (primary) hypertension 11/21/2024 Lab Requisition [facility] Main Lab [address] [place] [address] Geena Lee MD Chronic kidney disease, unspecified; Essential (primary) hypertension 11/20/2024 Lab Requisition [facility] Main Lab [address] [place] [address] Geena Lee MD Chronic kidney disease, unspecified; Essential (primary) hypertension 11/16/2024 Lab Requisition [facility] Lab [address] [place] [address] Geena Lee MD Essential (primary) hypertension 11/14/2024 Lab Requisition [facility] Main Lab [address] [place] [address] Geena Lee MD 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) 11/13/2024 Lab Requisition [facility] Main Lab [address] [place] [address] Geena Lee MD Abnormal finding of blood chemistry, unspecified 11/08/2024 Lab Requisition [facility] Lab [address] [place] [address] Geena Lee MD Essential (primary) hypertension 11/01/2024 Lab Requisition [facility] Lab [address] [place] [address] Geena Lee MD Essential (primary) hypertension 10/24/2024 Lab Requisition [facility] Lab [address] [place] [address] Geena Lee MD 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; Essential (primary) hypertension 10/18/2024 Lab Requisition [facility] Lab [address] [place] [address] Geena Lee MD Essential (primary) hypertension 10/14/2024 Lab Requisition [facility] Lab [address] [place] [address] Geena Lee MD Essential (primary) hypertension 10/11/2024 Lab Requisition [facility] Main Lab [address] [place] [address] Geena Lee MD Essential (primary) hypertension 10/04/2024 Lab Requisition [facility] Main Lab [address] [place] [phone] Geena Lee MD Essential (primary) hypertension 09/27/2024 Lab Requisition [facility] Lab [address] [place] [phone] Geena Lee MD Essential (primary) hypertension 09/26/2024 Lab Requisition [facility] Lab [address] [place] [phone] Geena Lee MD Essential (primary) hypertension 09/26/2024 Lab Requisition [facility] Lab [address] [place] [phone] Geena Lee MD Essential (primary) hypertension; Hyperlipidemia, unspecified 09/24/2024 Lab Requisition [facility] Lab [address] [place] [phone] Geena Lee MD Chronic systolic (congestive) heart failure ([facility] V24, [facility] V28); Syndrome of inappropriate secretion of antidiuretic hormone ([facility] V24); Hypo-osmolality and hyponatremia 09/22/2024 Lab Requisition [facility] Lab [address] [place] [phone] Geena Lee MD Essential (primary) hypertension from Last 3 Months Medical History Medical History Date Comments COPD (chronic obstructive pu lmonary disease) ([facility] V24, [facility] V28) DX:COPD (chronic o bstructive pulmonary disease) ([facility]) Depression DX:Depression Hyponatremia DX:Hyponatremia HTN (hypertension) DX:HTN (hyper tension) Tobacco abuse DX:Tobacco abuse Stenosis of left internal carotid artery DX:Stenosis of left internal carotid artery Atrial flutter ([facility] V24, [facility] V28) DX:Atrial flutter ([facility]) Transient ischemic attack (TIA) DX:Transient ischemic attack (TIA) Pneumonia DX:Pneumonia Mood disorder ([facility] V24) DX:M ood disorder ([facility]) Cardiomyopathy ([facility] V24, [facility]/HCC V28) DX:Cardiomyopathy (HCC) Dysphagia DX:Dysphagia Pleural effusion DX:Pleural effu chanda Hilar mass DX:Hilar mass Social History Tobacco Use Types Packs/Day Years Used Date Smoking Tobacco: Every Day Cigarettes Smokeless Tobacco: Never Alcohol Use Standard Drinks/Week Comments Not Currently 0 (1 standard drink = 0.6 oz pur e alcohol) Sex and Gender Information Value Date Recorded Sex Assigned at Not on file Legal Sex Male 3:51 PM EST Gender Identity Not on file Sexual Orientation Not on file Obstetrics History Last Filed Vital Signs Vital Sign Reading Time Taken Comments Blood Pressure 110/40 01/18/2022 2:13 PM EDT Sitting L Arm Pulse 88 01/18/2022 2:13 PM EDT Temperature - - Respiratory Rate - - Oxygen Saturation - - Inhaled Oxygen Concentration - - Weight 77.7 kg (171 lb 3.2 oz) 01/18/2022 2:13 PM EDT Height 177.8 cm (5' 10 ) 01/18/2022 2:1 3 PM EDT Body Mass Index 24.56 01/18/2022 2:13 PM EDT Plan of Treatment Health Maintenance Due Date Last Done Comments Hepatitis A Vaccines (1 of 2 - Risk 2-dose series) 09/01/1974 Pneumococcal Vaccine: 50+ Years (1 of 2 - PCV) 09/01/1974 Zoster Vaccines (1 of 2) 09/01/2005 RSV Immunization Adult Patients (1 - Risk 60-74 years 1-dose series) 2015 Abdominal Aortic Aneurysm (AAA) Screen 03/23/2022 Colorectal Cancer Screening: Colonoscopy 03/23/2022 Falls Risk Assessment 03/23/2022 Hepatitis C Screening 03/23/2022 Medicare Annual Wellness Visit 03/23/2022 Social Influencers of Health Screening 03/23/2022 Cholesterol Screening (Lipid Panel) 08/21/2022 08/21/2017 COVID-19 Vaccine ( season) 2023 08/04/2020, 07/14/2020 Depression Screening 04/24/2024 Influenza Vaccine (#1) 2024 , 02/01/2023, 04/28/2016, Additional history exists Hypertension/CHF/CAD Annual BMP Blood Test 12/16/2025 12/16/2024, 12/09/2024, 12/05/2024, Additional history exists DTaP,Tdap,and Td Vaccines (4 - Td or Tdap) 05/20/2032 05/20/2022, 10/17/2019, 01/01/2009 HIB Vaccines Aged Out No longer eligi ble based on patient's age to complete this topic HPV Vaccines Aged Out No longer eligi ble based on patient's age to complete this topic Hepatitis B Vaccines Aged Out No long er eligible based on patient's age to complete this topic IPV Vaccines Aged Out No longer eligi ble based on patient's age to complete this topic MMR Vaccines Aged Out No longer eligi ble based on patient's age to complete this topic Meningococcal ACWY Vaccine Aged Out N o longer eligible based on patient's age to complete this topic Meningococcal B Vaccine Aged Out No l onger eligible based on patient's age to complete this topic RSV Immunization Patients Under 20 months Aged Out No longer eligible based on patient's age to complete this topic Varicella Vaccines Aged Out No longer eligible based on patient's age to complete this topic Procedures Procedure Name Priority Date/Time Associated Diagnosis Comments COMPREHENSIVE METABOLIC PANEL Routine 12/16/2024 7:06 AM EDT Essential (primary) hypertension COMPLETE BLOOD COUNT Routine 12/16/2024 7:06 AM EDT Essential (primary) hypertension SODIUM Routine 12/12/2024 5:23 AM EDT Chronic kidney disease, unspecified Essential (primary) hypertension COMPLETE BLOOD COUNT Routine 12/09/2024 9:07 AM EDT Essential (primary) hypertension COMPREHENSIVE METABOLIC PANEL Routine 12/09/2024 9:07 AM EDT Essential (primary) hypertension COMPLETE BLOOD COUNT Routine 12/06/2024 7:51 AM EDT Essential (primary) hypertension BASIC METABOLIC PANEL Routine 12/05/2024 6:08 AM EDT Chronic kidney disease, unspecified Essential (primary) hypertension Hypo-osmolality and hyponatremia SODIUM Routine 12/05/2024 6:08 AM EDT Chronic kidney disease, unspecified Essential (primary) hypertension Hypo-osmolality and hyponatremia SARGENT URINE CULTURE TUBE Routine 12/05/2024 12:00 AM EDT Urinary tract infection, site not specified URINALYSIS WITH REFLEX MICROSCOPIC AND CULTURE Routine 12/05/2024 12:00 AM EDT Urinary tract infection, site not specified URINALYSIS WITH REFLEX MICROSCOPIC AND CULTURE Routine 12/05/2024 12:00 AM EDT Urinary tract infection, site not specified SODIUM Routine 12/04/2024 7:47 AM EDT Hypo-osmolality and hyponatremia COMPLETE BLOOD COUNT Routine 12/02/2024 9:32 AM EDT Essential (primary) hypertension COMPREHENSIVE METABOLIC PANEL Routine 12/02/2024 9:32 AM EDT Essential (primary) hypertension SODIUM Routine 11/28/2024 5:40 AM EDT Chronic kidney disease, unspecified Essential (primary) hypertension COMPREHENSIVE METABOLIC PANEL Routine 11/26/2024 5:49 AM EDT Essential (primary) hypertension COMPLETE BLOOD COUNT Routine 11/26/2024 5:49 AM EDT Essential (primary) hypertension SODIUM Routine 11/22/2024 7:17 AM EDT Chronic kidney disease, unspecified Essential (primary) hypertension COMPLETE BLOOD COUNT Routine 11/18/2024 9:20 AM EDT Essential (primary) hypertension COMPREHENSIVE METABOLIC PANEL Routine 11/18/2024 9:20 AM EDT Essential (primary) hypertension SODIUM Routine 11/15/2024 5:14 AM EDT 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) BASIC METABOLIC PANEL Routine 11/13/2024 11:56 AM EDT Abnormal finding of blood chemistry, unspecified COMPLETE BLOOD COUNT Routine 11/11/2024 10:04 AM EDT Essential (primary) hypertension COMPREHENSIVE METABOLIC PANEL Routine 11/11/2024 10:04 AM EDT Essential (primary) hypertension COMPLETE BLOOD COUNT Routine 10/21/2024 8:12 AM EDT Essential (primary) hypertension COMPREHENSIVE METABOLIC PANEL Routine 10/21/2024 8:12 AM EDT Essential (primary) hypertension COMPREHENSIVE METABOLIC PANEL Routine 10/15/2024 6:00 AM EDT Essential (primary) hypertension COMPLETE BLOOD COUNT Routine 10/15/2024 6:00 AM EDT Essential (primary) hypertension COMPREHENSIVE METABOLIC PANEL Routine 10/07/2024 8:24 AM EDT Essential (primary) hypertension COMPLETE BLOOD COUNT Routine 10/07/2024 8:24 AM EDT Essential (primary) hypertension COMPREHENSIVE METABOLIC PANEL Routine 09/30/2024 9:00 AM EDT Essential (primary) hypertension COMPLETE BLOOD COUNT Routine 09/30/2024 9:00 AM EDT Essential (primary) hypertension COMPREHENSIVE METABOLIC PANEL Routine 09/27/2024 7:13 AM EDT Essential (primary) hypertension COMPLETE BLOOD COUNT Routine 09/27/2024 7:13 AM EDT Essential (primary) hypertension FOLATE Routine 09/26/2024 6:01 AM EDT Essential (primary) hypertension Hyperlipidemia, unspecified VITAMIN B12 Routine 09/26/2024 6:01 AM EDT Essential (primary) hypertension Hyperlipidemia, unspecified FERRITIN Routine 09/26/2024 6:01 AM EDT Essential (primary) hypertension Hyperlipidemia, unspecified IRON AND TIBC Routine 09/26/2024 6:01 AM EDT Essential (primary) hypertension Hyperlipidemia, unspecified COMPLETE BLOOD COUNT Routine 09/26/2024 6:01 AM EDT Essential (primary) hypertension Hyperlipidemia, unspecified COMPREHENSIVE METABOLIC PANEL Routine 09/23/2024 7:33 AM EDT Essential (primary) hypertension COMPLETE BLOOD COUNT Routine 09/23/2024 7:33 AM EDT Essential (primary) hypertension SODIUM, URINE, RANDOM Routine 09/23/2024 12:00 AM EDT Chronic systolic (congestive) heart failure (CMS/HCC V24, CMS/HCC V28) 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) Hypo-osmolality and hyponatremia OSMOLALITY, URINE Routine 09/23/2024 12: 00 AM EDT Chronic systolic (congestive) heart failure (CMS/HCC V24, CMS/HCC V28) 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) Hypo-osmolality and hyponatremia from Last 3 Months Results * (ABNORMAL) Complete blood count (12/16/2024 7:06 AM EDT) Only the most recent of14 resultswithin the time period is included. WBC 5.6 4.8 - 10.8 K/mcL LAB HEMETOLOGY METHOD 12/16/2024 10:35 AM EDT [facility] RBC 4.50 4.50 - 5.50 M/mcL LAB HEMETOLOGY METHOD 12/16/2024 10:35 AM T [facility] Hemoglobin 13.0(L) 13.5 - 17.5 g/dL LAB HEMETOLOGY METHOD 12/16/2024 10:35 AM T [facility] Hematocrit 37.3(L) 42.0 - 54.0 % LAB HEMETOLOGY METHOD 12/16/2024 10:35 AM EDT [facility] MCV 82.5 79.0 - 98.0 FL LAB HEMETOLOGY METHOD 12/16/2024 10:35 AM EDT [facility] MCH 28.8 27.0 - 32.0 pcg LAB HEMETOLOGY METHOD 12/16/2024 10:35 AM EDT [facility] MCHC 34.9 32.0 - 37.0 g/dL LAB HEMETOLOGY METHOD 12/16/2024 10:35 AM EDT [facility] RDW 14.9 11.0 - 15.0 % LAB HEMETOLOGY METHOD 12/16/2024 10:35 AM EDT [facility] Platelets 168 130 - 400 K/mcL LAB HEMETOLOGY METHOD 12/16/2024 10:35 AM EDT [facility] MPV 10.3 7.0 - 11.0 FL LAB HEMETOLOGY METHOD 12/16/2024 10:35 AM EDT [facility] NRBC 0.0 <1.0 % LAB HEMETOLOGY METHOD 12/16/2024 10:35 AM EDT [facility] NRBC Absolute 0.00 <0.10 K/mcL LAB HEMETOLOGY METHOD 12/16/2024 10:35 AM EDT [facility] Blood Venous blood specimen / Unknown Venipuncture / Unknown 12/16/2024 7:06 AM EDT 12/16/2024 10:18 AM EDT us Geena Lee MD LAB BLOOD ORDERABLES Fin al Result [facility] [address] [place] [address], * (ABNORMAL) Comprehensive metabolic panel (12/16/2024 7:06 AM EDT) Only the most recent of12 resultswithin the time period is included. Sodium 127(L) 133 - 145 mmol/L LAB CHEMISTRY METHOD 12/16/2024 11:12 AM [facility] Potassium 4.2 3.5 - 5.5 mmol/L LAB CHEMISTRY METHOD 12/16/2024 11:12 AM [facility] Comment:Hemolysis present Chloride 92(L) 96 - 110 mmol/L LAB CHEMISTRY METHOD 12/16/2024 11:12 AM [facility] CO2 25 21 - 32 mmol/L LAB CHEMISTRY METHOD 12/16/2024 11:12 AM [facility] Anion Gap 10 3 - 11 LAB CHEMISTRY METHOD 12/16/2024 11:12 AM [facility] Glucose 60(L) 70 - 100 mg/dL LAB CHEMISTRY METHOD 12/16/2024 11:12 AM [facility] BUN 9 5 - 25 mg/dL LAB CHEMISTRY METHOD 12/16/2024 11:12 AM [facility] Creatinine 0.57(L) 0.70 - 1.30 mg/dL LAB CHEMISTRY METHOD 12/16/2024 11:12 AM [facility] eGFR 106 >=60 mL/min/1. 73m2 LAB CHEMISTRY METHOD 12/16/2024 11:12 AM [facility] Comment:Calculation based on the Chronic Kidney Disease Epidemiology Collaboration (CKD-EPI) equation refit without adjustment for race. BUN/Creatinine Ratio 15.8 LAB CHEMISTRY METHOD 12/16/2024 11:12 AM [facility] Calcium 9.0 8.5 - 10.5 mg/dL LAB CHEMISTRY METHOD 12/16/2024 11:12 AM [facility] AST (SGOT) 24 10 - 42 unit/L LAB CHEMISTRY METHOD 12/16/2024 11:12 AM EDT [facility] Comment:Hemolysis present ALT (SGPT) 16 10 - 60 unit/L LAB CHEMISTRY METHOD 12/16/2024 11:12 AM EDT [facility] Alkaline Phosphatase 84 42 - 121 unit/L LAB CHEMISTRY METHOD [facility] Total Protein 7.4 6.0 - 8.0 g/dL LAB CHEMISTRY METHOD 12/16[facility]24 [facility] Albumin 3.5 3.2 - 5.0 g/dL LAB CHEMISTRY METHOD 12/16[facility]24 [facility] Total Bilirubin 0.6 0.0 - 1.4 mg/dL LAB CHEMISTRY METHOD 12/16/2024 11:12 AM [facility] Blood Venous blood specimen / Unknown Venipuncture / Unknown 12/16/2024 7:06 AM EDT 12/16/2024 10:18 AM EDT Geena Lee MD LAB BLOOD ORDERABLES Fin al Result [facility] [address] [place] [address], * (ABNORMAL) Sodium (12/12/2024 5:23 AM EDT) Only the most recent of6 resultswithin the time period is included. Sodium 130(L) 133 - 145 mmol/L LAB CHEMISTRY METHOD 12/12/2024 9:46 AM EDT [facility] Blood Venous blood specimen / Unknown Venipuncture / Unknown 12/12/2024 5:23 AM EDT 12/12/2024 9:12 AM EDT Geena Lee MD LAB BLOOD ORDERABLES Fin al Result [facility] [address] [place] [address], * (ABNORMAL) Basic metabolic panel (12/05/2024 6:08 AM EDT) Only the most recent of2 resultswithin the time period is included. Sodium 131(L) 133 - 145 mmol/L LAB [...] Fin al Result [facility] [address] [place] [address], [place] [phone] * (ABNORMAL) Urinalysis with reflex microscopic and culture (12/05/2024 12:00 AM EDT) Specific Buckner Urine 1.026 1.003 - 1.030 LAB URINALYSIS - AUTOMATED METHOD 12/05/2024 10:54 AM [facility] pH, Urine 6.5 5.0 - 8.0 pH LAB URINALYSIS - AUTOMATED METHOD 12/05/2024 10:54 AM [facility] Leukocytes, Urine Negative Negative LAB URINALYSIS - AUTOMATED METHOD 12/05/2024 10:54 AM [facility] Nitrite, Urine Negative Negative LAB URINALYSIS - AUTOMATED METHOD 12/05/2024 10:54 AM [facility] Protein, Urine Trace <=Trace mg/dL LAB URINALYSIS - AUTOMATED METHOD 12/05/2024 10:54 AM [facility] Glucose, Urine Negative Negative mg/dL LAB URINALYSIS - AUTOMATED METHOD 12/05/2024 10:54 AM [facility] Ketones, Urine Trace(A) Negative mg/dL LAB URINALYSIS - AUTOMATED METHOD 12/05/2024 10:54 AM [facility] Urobilinogen, Urine 1.0 0.2 - 1.0 mg/dL LAB URINALYSIS - AUTOMATED METHOD 12/05/2024 10:54 AM [facility] Bilirubin, Urine Negative Negative LAB URINALYSIS - AUTOMATED METHOD 12/05/2024 10:54 AM EDT [facility] Blood, Urine Negative Negative LAB URINALYSIS - AUTOMATED METHOD 12/05/2024 10:54 AM EDT [facility] Urine Urine specimen obtained by clean catch procedure / Unknown Non-blood Collection / Unknown 12/05/2024 12/05/2024 10:47 AM EDT Geena Lee MD LAB URINE ORDERABLES Fin al Result Performing Organization Address City/[facility]/ZIP Co de Phone Number [facility] [address] [place] [address], [place] [phone] * Sargent urine culture tube (12/05/2024 12:00 AM EDT) Extra Tube Hold for add-ons. 12/05/2024 12:01 PM EDT [facility] Comment:Auto resulted. Urine Urine specimen obtained by clean catch procedure / Unknown 12/05/2024 12/05/2024 10:47 AM EDT Geena Lee MD LAB URINE ORDERABLES Fin al Result Performing Organization Address [facility]/ZIP Co de Phone Number [facility] [address] [place] [address], [place] [phone] * (ABNORMAL) Iron and TIBC (09/26/2024 6:01 [...] ORDERABLES Fin al Result Performing Organization Address [facility]/ZIP Co de Phone Number [facility] [address] [place] [address], [place] [phone] * Folate (09/26/2024 6:01 AM EDT) [facility] Folate 9.8 2.8 - 17.0 ng/ml LAB CHEMISTRY METHOD 09/26/2024 9:36 AM EDT [facility] Blood Venous blood specimen / Unknown Venipuncture / Unknown 09/26/2024 6:01 AM EDT 09/26/2024 7:31 AM EDT Geena Lee MD LAB BLOOD ORDERABLES Fin al Result Performing Organization Address [facility] Co de Phone Number [facility] [address] [place] [address], [place] [phone] * Ferritin (09/26/2024 6:01 AM EDT) [facility] Ferritin 101 26 - 388 ng/mL LAB CHEMISTRY METHOD 09/26/2024 9:36 AM EDT [facility] Blood Venous blood specimen / Unknown Venipuncture / Unknown 09/26/2024 6:01 AM EDT 09/26/2024 7:31 AM EDT Geena Lee MD LAB BLOOD ORDERABLES Fin al Result Performing Organization Address City/[facility]/ZIP Co de Phone Number [facility] [address] [place] [address], [place] [phone] * (ABNORMAL) Vitamin B12 (09/26/2024 6:01 AM EDT) [facility] Vitamin B-12 942(H) 250 - 900 pcg/mL LAB CHEMISTRY METHOD 09/26/2024 9:36 AM EDT [facility] Blood Venous blood specimen / Unknown Venipuncture / Unknown 09/26/2024 6:01 AM EDT 09/26/2024 7:31 AM EDT Geena Lee MD LAB BLOOD ORDERABLES Fin al Result Performing Organization Address [facility] Co de Phone Number [facility] [address] [place] [address], [place] [phone] * Sodium, urine, random (09/23/2024 12:00 AM EDT) [facility] Sodium, Ur 85 mmol/L LAB CHEMISTRY METHOD 09/24/2024 11:19 AM EDT [facility] Urine Urine specimen obtained by clean catch procedure / Unknown Non-blood Collection / Unknown 09/23/2024 09/24/2024 9:02 AM EDT Geena Lee MD LAB URINE ORDERABLES Fin al Result Performing Organization Address [facility] de Phone Number [facility] [address] [place] [address], [place] [phone] * Osmolality, urine (09/23/2024 12:00 AM EDT) [facility] Osmolality, Urine 488 300 - 1,300 mOsm/kg LAB CHEMISTRY METHOD 09/24/2024 11:41 AM EDT [facility] Urine Urine specimen obtained by clean catch procedure / Unknown Non-blood Collection / Unknown 09/23/2024 09/24/2024 9:02 AM EDT Geena Lee MD LAB URINE ORDERABLES Fin al Result Performing Organization Address [facility] Co de Phone Number [facility] [address] [place] [address], [place] [phone] from Last 3 Months Insurance [employer] Member Subscriber Plan / Payer (Ef fective 2022-Present) Name:Alberto Levi Relation to Subscriber:Self Name:Alberto Levi Payer ID:[id number] Group ID:[id number] Type:Not on file Address: [facility] [place] [address] Advance Directives Documents on File Type Date Recorded 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
--- OUTSIDE RECORDS SUMMARY | 2024-12-19 15:36 | XMS_ITS | Encounter Summary ---
Author Organization [facility] Address [address] [place] [address] Care Team Providers Care Vacuum Applicator Operator Name Role Phone Geena Lee MD Primary Care Provider + Encounter Details Date Type Department Care Team (Late st Contact Info) Description 12/07/2024 Lab Requisition [facility] - Main Lab [address] [place] [address] Geena Lee MD [address] [phone] Essential (primary) hypertension Social History Tobacco Use [...] Associated Diagnosis Comments COMPLETE BLOOD COUNT Routine 12/09/2024 9:07 AM EDT Essential (primary) hypertension COMPREHENSIVE METABOLIC PANEL Routine 12/09/2024 9:07 AM EDT Essential (primary) hypertension documented in this encounter Results * (ABNORMAL) Complete blood count (12/09/2024 9:07 AM EDT) WBC 4.9 4.8 - 10.8 [facility] LAB HEMETOLOGY METHOD 12/09/2024 1:51 PM EDT [facility] LAB RBC 4.00(L) 4.50 - 5.50 M/mcL LAB HEMETOLOGY METHOD 12/09/2024 1:51 PM EDT [facility] LAB Hemoglobin 11.6(L) 13.5 - 17.5 g/dL LAB HEMETOLOGY METHOD 12/09/2024 1:51 PM [facility] LAB Hematocrit 34.7(L) 42.0 - 54.0 % LAB HEMETOLOGY METHOD 12/09/2024 1:51 PM [facility] LAB MCV 85.9 79.0 - 98.0 FL LAB HEMETOLOGY METHOD 12/09/2024 1:51 PM [facility] LAB MCH 28.7 27.0 - 32.0 pcg LAB HEMETOLOGY METHOD 12/09/2024 1:51 PM [facility] LAB MCHC 33.4 32.0 - 37.0 g/dL LAB HEMETOLOGY METHOD 12/09/2024 1:51 PM [facility] LAB RDW 14.9 11.0 - 15.0 % LAB HEMETOLOGY METHOD 12/09/2024 1:51 PM [facility] LAB Platelets 161 130 - 400 K/mcL LAB HEMETOLOGY METHOD 12/09/2024 1:51 PM [facility] LAB MPV 10.2 7.0 - 11.0 FL LAB HEMETOLOGY METHOD 12/09/2024 1:51 PM [facility] LAB NRBC 0.0 <1.0 % LAB HEMETOLOGY METHOD 12/09/2024 1:51 PM [facility] LAB NRBC Absolute 0.00 <0.10 K/mcL LAB HEMETOLOGY METHOD 12/09/2024 1:51 PM [facility] LAB Blood Venous blood specimen / Unknown Venipuncture / Unknown 12/09/2024 9:07 AM EDT 12/09/2024 10:52 AM EDT us Geena Lee MD LAB BLOOD ORDERABLES Fin al Result [facility] [address] [place] [address], [place] [phone] * (ABNORMAL) Comprehensive metabolic panel (12/09/2024 9:07 AM EDT) Sodium 132(L) 133 - 145 mmol/L LAB CHEMISTRY METHOD 12/09/2024 4:34 PM [facility] LAB Potassium 3.9 3.5 - 5.5 mmol/L LAB CHEMISTRY METHOD 12/09/2024 4:34 PM [facility] Chloride 98 96 - 110 mmol/L LAB CHEMISTRY METHOD 12/09/2024 4:34 PM [facility] CO2 27 21 - 32 mmol/L LAB CHEMISTRY METHOD 12/09/2024 4:34 PM [facility] Anion Gap 7 3 - 11 LAB CHEMISTRY METHOD 12/09/2024 4:34 PM [facility] Glucose 71 70 - 100 mg/dL LAB CHEMISTRY METHOD 12/09/2024 4:34 PM [facility] BUN 11 5 - 25 mg/dL LAB CHEMISTRY METHOD 12/09/2024 4:34 PM [facility] Creatinine 0.42(L) 0.70 - 1.30 mg/dL LAB CHEMISTRY METHOD 12/09/2024 4:34 PM [facility] LAB eGFR 116 >=60 mL/min/1. 73m2 LAB CHEMISTRY METHOD 12/09/2024 4:34 PM [facility] Comment:Calculation based on the Chronic Kidney Disease Epidemiology Collaboration (CKD-EPI) equation refit without adjustment for race. BUN/Creatinine Ratio 26.2 LAB CHEMISTRY METHOD 12/09/2024 4:34 PM [facility] Calcium 9.0 8.5 - 10.5 mg/dL LAB CHEMISTRY METHOD 12/09/2024 4:34 PM EDT [facility] AST (SGOT) 15 10 - 42 unit/L LAB CHEMISTRY METHOD 12/09/2024 4:34 PM [facility] ALT (SGPT) 11 10 - 60 unit/L LAB CHEMISTRY METHOD 12/09/2024 4:34 PM T [facility] LAB Alkaline Phosphatase 72 42 - 121 unit/L LAB CHEMISTRY METHOD 12/09/2024 4:34 PM T [facility] LAB Total Protein 6.6 6.0 - 8.0 g/dL LAB CHEMISTRY METHOD 12/09/2024 4:34 PM [facility] Albumin 3.2 3.2 - 5.0 g/dL LAB CHEMISTRY METHOD 12/09/2024 4:34 PM [facility] Total Bilirubin 0.5 0.0 - 1.4 mg/dL LAB CHEMISTRY METHOD 12/09/2024 4:34 PM T [facility] LAB Blood Venous blood specimen / Unknown Venipuncture / Unknown 12/09/2024 9:07 AM EDT 12/09/2024 10:52 AM EDT us Geena Lee MD LAB BLOOD ORDERABLES Fin al Result [facility] [address] [place] [address], documented in this encounter Visit Diagnoses Diagnosis Essential (primary) hypertension Unspecified essential hypertension documented in this encounter Care Teams Vacuum Applicator Operator Relationship Specialty Start Date End Date Geena Lee MD [address] [place] [id number] PCP - General Family Medicine 03/20/24 documented as of this encounter
[2024-12-19 15:38] VITALS: PULSE 67; O2SAT 99
== END 2024-12-19 14:55 | disposition home or self-care (01) ==
LOC: HO.RESP 14:54
PROVIDERS: PCP Internal Medicine; Visit Provider Internal Medicine Pulmonary Disease
DX: J44.9 Chronic obstructive pulmonary disease, unspecified (principal); Z87.891 Personal history of nicotine dependence
CPT/HCPCS: 71271; 94010; 94640; 94727; 94729

== ENCOUNTER → 2024-12-19 15:35 | Outpatient (BNV) | payer OTHER, SELFPAY | PROVIDERS: PCP Internal Medicine; Visit Provider Internal Medicine Pulmonary Disease | DX: J44.9 Chronic obstructive pulmonary disease, unspecified (principal) | CPT/HCPCS: 94060; 94727; 94729 ==

== ENCOUNTER → 2024-12-19 15:35 | Outpatient (BNV) | payer OTHER, SELFPAY | PROVIDERS: PCP Internal Medicine; Visit Provider Radiology Diagnostic Radiology | DX: Z87.891 Personal history of nicotine dependence (principal) | CPT/HCPCS: 71271 ==

== ENCOUNTER 2025-01-02 13:22 | Outpatient (AMB) | payer OTHER, SELFPAY ==
--- NOTE | 2025-01-02 13:52 | MHC.OFFVIS ---
Vital Signs 01/02/25 13:55 Height 5 ft 10 in BP 118/54 L Blood Pressure Location Lt brachial Position Supine Pulse 68 Pulse Source Monitor Intake Visit Reasons: clearance [facility]OS hip echo/ stress/ holter HS Plastic Mould Maker: Plastic Mould Maker Present Allergies No Known Allergies Allergy (Verified 12/09/24 11:06) Medication List - Last Reconciled 01/02/25 by Artem Sanders NP acetaminophen 650 mg PO Q6H PRN apixaban (Eliquis) 5 mg PO BID aspirin 81 mg PO DAILY atorvastatin (Lipitor) 40 mg PO BEDTIME bisacodyl 10 mg CA DAILY PRN carvedilol 3.125 mg See Protocol PO BID cetirizine (All Day Allergy (cetirizine)) 10 mg PO DAILY PRN divalproex ER 500 mg PO BID docusate sodium 100 mg PO BID guaifenesin (Daphney-Tussin) 100 mg PO Q4H PRN ipratropium-albuterol 0.5 mg-3 mg(2.5 mg base)/3 mL 3 mL inhalation Q6H PRN magnesium hydroxide (Milk of Magnesia) 30 mL PO DAILY PRN melatonin 6 mg PO BEDTIME PRN montelukast 10 mg PO DAILY multivitamin 1 tab PO DAILY omeprazole 20 mg PO DAILY@1630 polyethylene glycol 3350 17 grams PO DAILY PRN sennosides (senna) 17.2 mg PO BID sodium chloride PLEASE SEE ATTACHED FOR DETAILED DIRECTIONS. Take two tablets twice daily. sodium phosphates 19-7 gram/118 mL (Fleet Enema) 118 mL CA DAILY PRN tiotropium bromide 2.5 mcg/actuation (Spiriva Respimat) 2 puffs inhalation DAILY trazodone 75 mg PO BEDTIME umeclidinium-vilanterol 62.5-25 mcg/actuation (Anoro Ellipta) 1 inh inhalation DAILY ziprasidone HCl 80 mg PO BID HPI Comments Details: This is a 69-year-old male patient coming in for a follow-up visit. Patient is in his stretcher and is coming from [facility] with the ambulance staff. Patient states he is temporarily there due to left hip fracture. Patient otherwise has significant cardiac history of paroxysmal AFib/flutter, ischemic cardiomyopathy, coronary artery disease status post CABG from 2006, COPD, and chronic hyponatremia. Patient was previously seen in the office for cardiac risk stratification of his left hip revision. Today, patient is reporting feeling well overall without any cardiac symptoms of exertional chest pain, shortness of breath, palpitations, dizziness, orthopnea, PND, leg edema, presyncope, or syncope. Patient states that his sodium levels have been at his baseline and is checked regularly at the nursing facility. Patient notes that he is looking forward to his left hip revision as he wants to be more active. Patient is otherwise reporting compliance with all his medications and denies any signs of bleeding. [facility] Medical History Schizophrenia Atrial flutter Ischemic cardiomyopathy Former smoker SIADH (syndrome of inappropriate ADH production) Paroxysmal atrial fibrillation Mood disorder Heart failure COPD (chronic obstructive pulmonary disease) Hypertension Hyperlipidemia TIA (transient ischemic attack) Encounter to establish care Surgical History Status post hip surgery S/P CABG x 3 Social History Household Members: Other Household Members Other:: Niece and her daughter Housing: Other Housing Other:: [facility] Do you presently have visiting nurse or other home services: No Unable to assess alcohol history related to: Unknown Alcohol intake: former Patient Tobacco Use Status: Tobacco use Unknown Tobacco use type: Cigarette Cigarette Packs Per Day: 1 Cigarettes Per Day: 20 Years Smoked: 53 years e-Cigarette/Vaping Use: Never Used Second Hand Smoke Exposure: No Substance Use Type: Crack/Cocaine and Marijuana Advance Directives Date on File: 02/17/23 service: No Current occupational status: retired Sexual orientation: Straight/Heterosexual Cognitive needs: Yes Hearing needs: No Vision needs: Yes (Glasses) Review of Systems Const Denies daytime sleepiness, Denies difficulty sleeping, Denies snoring, Denies stops breathing during sleep and Denies weakness Card Denies chest pain, Denies rapid heart rate, Denies irregular heart rhythm, Denies claudication, Denies leg edema, Denies lightheadedness, Denies palpitations, Denies dyspnea, Denies dyspnea on exertion, Denies orthopnea, Denies paroxysmal nocturnal dyspnea and Denies slow heart rate Resp Denies cough, Denies dyspnea, Denies dyspnea on exertion and Denies snoring GI Reports no additional complaints, Denies hematochezia, Denies change in stool character and Denies dyspepsia Musc Denies abnormal gait, Denies muscle weakness and Denies numbness Neuro Denies abnormal gait, Denies numbness and Denies weakness Endo Denies palpitations Physical Exam Vital Signs: Last Vital Signs Pulse 68 01/02/25 13:55 BP 118/54 L 01/02/25 13:55 Const Other: In the ambulance stretcher General: cooperative, comfortable and no acute distress Orientation/consciousness: patient oriented x3 HEENT Head: Yes normal to inspection Neck Neck: Yes normal visual inspection, Yes trachea midline and Yes supple Chest Chest palpation & inspection: normal inspection of the chest Resp Effort & Inspection: normal respiratory effort Auscultation: clear to auscultation bilaterally, no crackles, no rales, no rhonchi and no wheezes Cardio Jugular venous distension: no JVD Palpation: normal PMI Rate: regular rate Rhythm: regular rhythm Heart sounds: S1 normal heart sound present, S2 normal heart sound present, no click, no gallops, no murmurs and no rubs Peripheral pulses: Peripheral pulses 2+ throughout GI Inspection: Yes normal to inspection Palpation (GI): Soft to palpation Auscultation: normal bowel sounds Skin General skin exam: no rashes or lesions noted Neuro General: patient oriented x3 Extrem General: Yes normal to inspection, No no pedal edema and No calf tenderness Psych Appearance: grossly normal Mental Status: mental status grossly normal Speech and movement: Normal speech and movement present Office Procedures EKG Details: EKG today showed normal sinus rhythm with first-degree AV block, rate 68 beats per minute, minimal voltage for LVH, possible old inferior infarct, CA 220 milliseconds[place] [id number], Complete Assessment & Plan Assessment & Plan (1) Ischemic cardiomyopathy: Code(s): I25.5 - Ischemic cardiomyopathy Category: Medical Plan: History of CABG x3 from 2006. 11/26/2024-myocardial perfusion study showed prior transluminal infarct in the inferolateral wall and possible nontransmural infarct in the distal anterior septum versus artifactual. 12/10/2024-echo study showed [id number] reduced LV systolic function with an ejection fraction between 40-45% with impaired relaxation filling pattern with underlying regional wall motion abnormality, and mild dilation of the ascending aorta at 3.7 cm. Clinically stable and without any cardiac symptoms. Continue baby aspirin therapy. Continue statin therapy with an LDL goal less than 70. (2) S/P CABG x 3: Code(s): Z95.1 - Presence of aortocoronary bypass graft Category: Surgical Plan: As above. (3) Paroxysmal atrial fibrillation: Code(s): I48.0 - Paroxysmal atrial fibrillation Category: Medical Plan: 12/10/2024-Holter study showed predominantly normal sinus rhythm with intermittent AFib with a total burden of 1.63%, frequent PVCs with burden of 2.9%, frequent PACs with burden of 1.6%, and 53 beat NSVT with the fastest rate of 132. EKG today is normal sinus rhythm. Continue Eliquis for full anticoagulation. No reported signs of bleeding. Continue carvedilol for rate control approach. Advised on aggressive management of vascular risk factors. Blood pressure today is within normal limits. (4) Hyperlipidemia: Code(s): E78.5 - Hyperlipidemia, unspecified Category: Medical Plan: As above. (5) Preoperative cardiovascular examination: Code(s): Z01.810 - Encounter for preprocedural cardiovascular examination Category: Medical Plan: Clinically stable and given findings of his above testings, patient can proceed with his upcoming left hip fracture revision with the consideration that patient is at a intermediate cardiac risk. Patient can hold his Eliquis for 48 hours prior to the procedure and resume after per surgeon's order. Advised heart healthy diet, med compliance, and management of vascular risk factors. We will follow up in 4 months. In the interim, patient will call the office with any concerns or change in symptoms. This note was generated using voice recognition software. While every effort has been made to ensure accuracy and proper first aid nurse, there may be occasional errors that could affect the content or meaning of the described symptoms. Orders: Orders AMB EKG-In Office Today Z01.810 - Encounter for preprocedural cardiovascular examination Coding Level of Care Code Est Pt Level 4 (86423) Complex EM visit Add On G2211 Diagnoses Ischemic cardiomyopathy I25.5 S/P CABG x 3 Z95.1 Paroxysmal atrial fibrillation I48.0 Hyperlipidemia E78.5 Preoperative cardiovascular examination Z01.810 CPT Codes EKG - CPT: 74591-[id number], Complete ([id number]) Time Spent (min) 32 Comment Time spent in reviewing the chart, test results, assessment, counseling and documentation.
[2025-01-02 13:55] VITALS: BP 118/54; PULSE 68
--- OUTSIDE RECORDS SUMMARY | 2025-01-02 17:21 | XMS_ITS | Clinical Summary ---
Author Organization [facility] Address [address] [facility] [place] [address] Phone Care Team Providers Care Cryptologic Technician Name Role Phone Unavailable Primary Care Provider [...] patient's age to complete this topic Insurance [facility] ([id number]) [facility] ([id number])
== END 2025-01-02 14:23 | disposition home or self-care (01) ==
LOC: HO.HCS 13:23
PROVIDERS: PCP Internal Medicine
DX: I25.5 Ischemic cardiomyopathy (principal); Z95.1 Presence of aortocoronary bypass graft; I48.0 Paroxysmal atrial fibrillation; E78.5 Hyperlipidemia, unspecified; Z01.810 Encounter for preprocedural cardiovascular examination
CPT/HCPCS: 93010; 99214; G2211

== ENCOUNTER → 2025-01-02 13:22 | Outpatient (BNVA) | payer OTHER, SELFPAY | PROVIDERS: PCP Internal Medicine | DX: Z01.810 Encounter for preprocedural cardiovascular examination (principal); I48.0 Paroxysmal atrial fibrillation; I48.92 Unspecified atrial flutter; I25.5 Ischemic cardiomyopathy; I25.10 Atherosclerotic heart disease of native coronary artery without angina pectoris; I10 Essential (primary) hypertension; E78.5 Hyperlipidemia, unspecified; Z95.1 Presence of aortocoronary bypass graft | CPT/HCPCS: 93005; 99212 ==

== ENCOUNTER 2025-01-13 11:13 | Outpatient (AMB) | payer OTHER, SELFPAY ==
--- NOTE | 2025-01-13 11:37 | HO.NEPHOV_ITS ---
Vital Signs 01/13/25 11:42 Height 5 ft 10 in Weight 190 lb BMI 27.3 BP 100/60 Blood Pressure Location Lt brachial Position Sitting Pulse 68 Pulse Source Pulse Oximeter Pulse Oximetry (%) 97 Oxygen Delivery Method Room Air Intake Visit Reasons: 1 MO FU per Silvina Roaster Operator Required: No Accompanied by: EMT Allergies No Known Allergies Allergy (Verified 01/13/25 11:39) HPI Comments Details: 69 y/o male with a medical history of schizophrenia, afib, CAD, SIADH, COPD, CH F, TIA, history of alcohol abuse. Currently in rehab, patient reports he lives with his niece when home and she helps care for him. He arrived here on stretcher via ambulance. Here for 1 month return for hyponatremia sodium has improved from 127-131 in mid November from outside labs from nursing facility. serum sodium 121-135 from 12/26-01/09 (per outside labs from nursing facility). Urine osm and urine sodium lab work that was ordered was not completed. he is taking 2 grams salt tablets BID. Takes divalproex for management of schizoaffective disorder; also takes trazodone. Patient reports he is not aware of how much fluid to drink. States he is feeling well and denies nausea, vomiting, diarrhea, dizziness, weakness, muscle cramping or other symptoms. Denies excessive urination/urinary frequency. States he feels tired and wants to go home. [facility] Medical History Schizophrenia Atrial flutter Ischemic cardiomyopathy Former smoker SIADH (syndrome of inappropriate ADH production) Paroxysmal atrial fibrillation Mood disorder Heart failure COPD (chronic obstructive pulmonary disease) Hypertension Hyperlipidemia TIA (transient ischemic attack) Encounter to establish care Surgical History Status post hip surgery S/P CABG x 3 Social History Household Members: Other Household Members Other:: Niece and her daughter Housing: Other Housing Other:: [facility] Do you presently have visiting nurse or other home services: No Unable to assess alcohol history related to: Unknown Alcohol intake: former Patient Tobacco Use Status: Tobacco use Unknown Tobacco use type: Cigarette Cigarette Packs Per Day: 1 Cigarettes Per Day: 20 Years Smoked: 53 years e-Cigarette/Vaping Use: Never Used Second Hand Smoke Exposure: No Substance Use Type: Crack/Cocaine and Marijuana Advance Directives Date on File: 02/17/23 service: No Current occupational status: retired Sexual orientation: Straight/Heterosexual Cognitive needs: Yes Hearing needs: No Vision needs: Yes (Glasses) Review of Systems Const All systems reviewed & are unremarkable except as noted in HPI and below Physical Exam Vital Signs: Last Vital Signs Pulse 68 01/13/25 11:42 BP 100/60 01/13/25 11:42 Pulse Ox 97 01/13/25 11:42 Oxygen Delivery Method Room Air 01/13/25 11:42 BMI result Body Mass Index 27.3 Const General: no acute distress, alert and awake Resp Effort & Inspection: normal respiratory effort and able to speak in complete sentences Auscultation: clear to auscultation bilaterally Cardio Rate: regular rate Rhythm: regular rhythm Heart sounds: S1 normal heart sound present and S2 normal heart sound present GI Palpation (GI): Soft to palpation and nontender General: Yes no CVA tenderness Back/Spine/Pelvis Back: no CVA tenderness Skin Rashes: no rashes Extrem General: No edema Assessment & Plan Assessment & Plan (1) Hyponatremia: Code(s): E87.1 - Hypo-osmolality and hyponatremia Category: Medical Plan Hyponatremia likely secondary to SIADH from psychiatric medications, psychiatric conditions themselves may also be triggering inappropriate ADH release so recommend continuing medications as prescribed. Recommend continuing 1.5L/24 hour fluid restriction. Will decrease sodium chloride tablets to 2gram PO BID given improvement in last labs (had planned to decrease at last visit, but per notes from nursing facility, pt is currently taking sodium chloride 2 grams PO TID). He will follow up in the office in 3-4 months given stability of serum sodium, labs prior. Orders: Orders Electrolytes 4 Months E87.1 - Hypo-osmolality and hyponatremia Coding Level of Care Code Est Pt Level 3 (83277) Diagnoses Hyponatremia E87.1
[2025-01-13 11:42] VITALS: BP 100/60; PULSE 68; O2SAT 97; BMI 27.3
--- OUTSIDE RECORDS SUMMARY | 2025-01-13 13:54 | XMS_ITS | Encounter Summary ---
Author Organization [facility] Address [address] [place] [address] Care Team Providers Care Flare Stitcher Name Role Phone Geena Lee MD Primary Care Provider + Encounter Details Date Type Department Care Team (Late st Contact Info) Description 12/11/[address] [facility] - Main Lab [address] [place] [address] Geena Lee MD [address] [address] Chronic kidney disease, unspecified; Essential [...] LAB CHEMISTRY METHOD 12/12/2024 9:46 AM EDT [facility] ([facility]) [facility] Blood Venous blood specimen / Unknown Venipuncture / Unknown 12/12/2024 5:23 AM EDT 12/12/2024 9:12 AM EDT us Geena Lee MD LAB BLOOD ORDERABLES Fin al Result [facility] ([facility]) [facility] [address] [place] [address], documented in this encounter Visit Diagnoses Diagnosis Chronic kidney disease, unspecified Essential (primary) hypertension Unspecified essential hypertension documented in this encounter Care Teams Flare Stitcher Relationship Specialty Start Date End Date Geena Lee MD [address] [place] [phone] PCP - General Family Medicine 03/20/24 documented as of this encounter
--- OUTSIDE RECORDS SUMMARY | 2025-01-13 13:54 | XMS_ITS | Encounter Summary ---
Author Organization [facility] Address [address] [place] [address] Care Team Providers Care Network Support Engineer Name Role Phone Geena Lee MD Primary Care Provider + Encounter Details Date Type Department Care Team (Late st Contact Info) Description 12/04/2024 Lab Requisition [facility] - Main Lab 299 [facility] [place] [address] Geena Lee MD [address] [address] Chronic kidney disease, unspecified; Essential [...] mmol/L LAB CHEMISTRY METHOD 12/05/2024 11:01 AM [facility] Potassium 4.8 3.5 - 5.5 mmol/L LAB CHEMISTRY METHOD 12/05/2024 11:01 AM [facility] Comment:Hemolysis present Chloride 98 96 - 110 mmol/L LAB CHEMISTRY METHOD 12/05/2024 11:01 AM [facility] CO2 24 21 - 32 mmol/L LAB CHEMISTRY METHOD 12/05/2024 11:01 AM [facility] Anion Gap 9 3 - 11 LAB CHEMISTRY METHOD 12/05/2024 11:01 AM [facility] Glucose 52(L) 70 - 100 mg/dL LAB CHEMISTRY METHOD 12/05/2024 11:01 AM [facility] BUN 14 5 - 25 mg/dL LAB CHEMISTRY METHOD 12/05/2024 11:01 AM [facility] Creatinine 0.64(L) 0.70 - 1.30 mg/dL LAB CHEMISTRY METHOD 12/05/2024 11:01 AM [facility] eGFR 102 >=60 mL/min/1. 73m2 LAB CHEMISTRY METHOD 12/05/2024 11:01 AM [facility] Comment:Calculation based on the Chronic Kidney Disease Epidemiology Collaboration (CKD-EPI) equation refit without adjustment for race. BUN/Creatinine Ratio 21.9 LAB CHEMISTRY METHOD 12/05/2024 11:01 AM [facility] Calcium 9.2 8.5 - 10.5 mg/dL LAB CHEMISTRY METHOD 12/05/2024 11:01 AM [facility] Blood Venous blood specimen / Unknown Venipuncture / Unknown 12/05/2024 6:08 AM EDT 12/05/2024 9:30 AM EDT Geena Lee MD LAB BLOOD ORDERABLES Fin al Result [facility] [address] [place] [address], [place] [phone] * (ABNORMAL) Sodium (12/05/2024 6:08 AM EDT) Sodium 131(L) 133 - 145 mmol/L LAB CHEMISTRY METHOD 12/05/2024 11:01 AM EDT [facility] Blood Venous blood specimen / Unknown Venipuncture / Unknown 12/05/2024 6:08 AM EDT 12/05/2024 9:30 AM EDT us Geena Lee MD LAB BLOOD ORDERABLES Fin al Result Performing Organization Address [facility] Co de Phone Number [facility] [address] [place] [address], [place] [phone] documented in this encounter Visit Diagnoses Diagnosis Chronic kidney disease, unspecified Essential (primary) hypertension Unspecified essential hypertension Hypo-osmolality and hyponatremia documented in this encounter Care Teams Network Support Engineer Relationship Specialty Start Date End Date Geena Lee MD [address] [place] [id number] PCP - General Family Medicine 03/20/24 documented as of this encounter
--- OUTSIDE RECORDS SUMMARY | 2025-01-13 13:54 | XMS_ITS | Encounter Summary ---
Author Organization [facility] Address [address] [place] [address] Care Team Providers Care White Kid Buffer Name Role Phone Geena Lee MD Primary Care Provider + Encounter Details Date Type Department Care Team (Late st Contact Info) Description 01/12/[address] [facility] - Main Lab [address] [place] [address] Geena Lee MD [address] [address] Essential (primary) hypertension Social History [...] Associated Diagnosis Comments COMPLETE BLOOD COUNT Routine 01/13/2025 9:42 AM EDT Essential (primary) hypertension COMPREHENSIVE METABOLIC PANEL Routine 01/13/2025 9:42 AM EDT Essential (primary) hypertension documented in this encounter Results * (ABNORMAL) Complete blood count (01/13/2025 9:42 AM EDT) WBC 5.9 4.8 - 10.8 K/[facility] LAB HEMETOLOGY METHOD 01/13/2025 12:16 PM EDT [facility] RBC 4.30(L) 4.50 - 5.50 M/mcL LAB HEMETOLOGY METHOD 01/13/2025 12:16 PM [facility] Hemoglobin 12.4(L) 13.5 - 17.5 g/dL LAB HEMETOLOGY METHOD 01/13/2025 12:16 PM [facility] Hematocrit 37.2(L) 42.0 - 54.0 % LAB HEMETOLOGY METHOD 01/13/2025 12:16 PM [facility] MCV 87.1 79.0 - 98.0 FL LAB HEMETOLOGY METHOD 01/13/2025 12:16 PM [facility] MCH 29.0 27.0 - 32.0 pcg LAB HEMETOLOGY METHOD 01/13/2025 12:16 PM [facility] MCHC 33.3 32.0 - 37.0 g/dL LAB HEMETOLOGY METHOD 01/13/2025 12:16 PM [facility] RDW 16.4(H) 11.0 - 15.0 % LAB HEMETOLOGY METHOD 01/13/2025 12:16 PM [facility] Platelets 174 130 - 400 K/mcL LAB HEMETOLOGY METHOD 01/13/2025 12:16 PM [facility] MPV 10.6 7.0 - 11.0 FL LAB HEMETOLOGY METHOD 01/13/2025 12:16 PM [facility] NRBC 0.0 <1.0 % LAB HEMETOLOGY METHOD 01/13/2025 12:16 PM [facility] NRBC Absolute 0.00 <0.10 K/mcL LAB HEMETOLOGY METHOD 01/13/2025 12:16 PM [facility] Blood Venous blood specimen / Unknown Venipuncture / Unknown 01/13/2025 9:42 AM EDT 01/13/2025 11:07 AM EDT us Geena Lee MD LAB BLOOD ORDERABLES Fin al Result [facility] [address] [place] [address], [place] [phone] * (ABNORMAL) Comprehensive metabolic panel (01/13/2025 9:42 AM EDT) Pathologist [facility] Sodium 129(L) 133 - 145 mmol/L LAB CHEMISTRY METHOD 01/13/2025 12:57 PM [facility] Potassium 4.1 3.5 - 5.5 mmol/L LAB CHEMISTRY METHOD 01/13/2025 12:57 PM [facility] Comment:Hemolysis present Chloride 99 96 - 110 mmol/L LAB CHEMISTRY METHOD 01/13/2025 12:57 PM [facility] CO2 21 21 - 32 mmol/L LAB CHEMISTRY METHOD 01/13/2025 12:57 PM [facility] Anion Gap 9 3 - 11 LAB CHEMISTRY METHOD 01/13/2025 12:57 PM [facility] Glucose 67(L) 70 - 100 mg/dL LAB CHEMISTRY METHOD 01/13/2025 12:57 PM [facility] BUN 12 5 - 25 mg/dL LAB CHEMISTRY METHOD 01/13/2025 12:57 PM [facility] Creatinine 0.54(L) 0.70 - 1.30 mg/dL LAB CHEMISTRY METHOD 01/13/2025 12:57 PM [facility] eGFR 108 >=60 mL/min/1. 73m2 LAB CHEMISTRY METHOD 01/13/2025 12:57 PM [facility] Comment:Calculation based on the Chronic Kidney Disease Epidemiology Collaboration (CKD-EPI) equation refit without adjustment for race. BUN/Creatinine Ratio 22.2 LAB CHEMISTRY METHOD 01/13/2025 12:57 PM T [facility] Calcium 8.7 8.5 - 10.5 mg/dL LAB CHEMISTRY METHOD 01/13/2025 12:57 PM T [facility] AST (SGOT) 31 10 - 42 unit/L LAB CHEMISTRY METHOD 01/13/2025 12:57 PM [facility] ALT (SGPT) 12 10 - 60 unit/L LAB CHEMISTRY METHOD [facility]25 12[facility] Alkaline Phosphatase 89 42 - 121 unit/L LAB CHEMISTRY METHOD 01/13/2025 12:57 PM [facility] Total Protein 7.1 6.0 - 8.0 g/dL LAB CHEMISTRY METHOD 01/13/2025 12:57 PM [facility] Albumin 3.2 3.2 - 5.0 g/dL LAB CHEMISTRY METHOD 01/13/2025 12:57 PM [facility] Total Bilirubin 0.5 0.0 - 1.4 mg/dL LAB CHEMISTRY METHOD 01/13/2025 12:57 PM [facility] Blood Venous blood specimen / Unknown Venipuncture / Unknown 01/13/2025 9:42 AM EDT 01/13/2025 12:05 PM EDT us Geena Lee MD LAB BLOOD ORDERABLES Fin al Result [facility] [address] [place] [address], documented in this encounter Visit Diagnoses Diagnosis Essential (primary) hypertension Unspecified essential hypertension documented in this encounter Care Teams White Kid Buffer Relationship Specialty Start Date End Date Geena Lee MD [address] [place] [phone] PCP - General Family Medicine 03/20/24 documented as of this encounter
--- OUTSIDE RECORDS SUMMARY | 2025-01-13 13:54 | XMS_ITS | Encounter Summary ---
Author Organization [facility] Address [address] [place] [address] Care Team Providers Care Thoracic Surgeon Name Role Phone Geena Lee MD Primary Care Provider + Encounter Details Date Type Department Care Team (Late st Contact Info) Description 2024 Lab Requisition [facility] - Main Lab 299 [facility] [place] [address] Geena Lee MD [address] [id number] Fracture of unspecified part of neck of [...] femur, initial encounter for closed fracture ([facility] V24, [facility] V28) documented in this encounter Results * Valproic acid level, total (2024 11:01 AM EDT) Valproic Acid, Total 68 50 - 100 mcg/mL LAB CHEMISTRY METHOD 2024 2:15 PM EDT [facility] Blood Venous blood specimen / Unknown Venipuncture / Unknown 2024 11:01 AM EDT 2024 12:03 PM EDT us Geena Lee MD LAB BLOOD ORDERABLES Fin al Result [facility] [address] [place] [address], * (ABNORMAL) Comprehensive metabolic panel (2024 11:01 AM EDT) Sodium 125(L) 133 - 145 mmol/L LAB CHEMISTRY METHOD 2024 2:15 PM T [facility] Potassium 3.9 3.5 - 5.5 mmol/L LAB CHEMISTRY METHOD 2024 2:15 PM T [facility] Chloride 90(L) 96 - 110 mmol/L LAB CHEMISTRY METHOD 2024 2:15 PM EDT [facility] CO2 27 21 - 32 mmol/L LAB CHEMISTRY METHOD 2024 2:15 PM EDT [facility] Anion Gap 8 3 - 11 LAB CHEMISTRY METHOD 2024 2:15 PM [facility] Glucose 92 70 - 100 mg/dL LAB CHEMISTRY METHOD 2024 2:15 PM T [facility] BUN 12 5 - 25 mg/dL LAB CHEMISTRY METHOD 2024 2:15 PM [facility] Creatinine 0.59(L) 0.70 - 1.30 mg/dL LAB CHEMISTRY METHOD 2024 2:15 PM [facility] eGFR 105 >=60 mL/min/1. 73m2 LAB CHEMISTRY METHOD 2024 2:15 PM [facility] Comment:Calculation based on the Chronic Kidney Disease Epidemiology Collaboration (CKD-EPI) equation refit without adjustment for race. BUN/Creatinine Ratio 20.3 LAB CHEMISTRY METHOD 2024 2:15 PM [facility] Calcium 8.0(L) 8.5 - 10.5 mg/dL LAB CHEMISTRY METHOD 2024 2:15 PM [facility] AST (SGOT) 17 10 - 42 unit/L LAB CHEMISTRY METHOD 2024 2:15 PM [facility] ALT (SGPT) 11 10 - 60 unit/L LAB CHEMISTRY METHOD 2024 2:15 PM [facility] Alkaline Phosphatase 78 42 - 121 unit/L LAB CHEMISTRY METHOD 2024 2:15 PM [facility] Total Protein 6.3 6.0 - 8.0 g/dL LAB CHEMISTRY METHOD 2024 2:15 PM [facility] Albumin 2.7(L) 3.2 - 5.0 g/dL LAB CHEMISTRY METHOD 2024 2:15 PM [facility] Total Bilirubin 0.7 0.0 - 1.4 mg/dL LAB CHEMISTRY METHOD 2024 2:15 PM [facility] Blood Venous blood specimen / Unknown Venipuncture / Unknown 2024 11:01 AM EDT 2024 12:03 PM EDT us Acacia Laba Elder MD LAB BLOOD ORDERABLES Fin al Result [facility] [address] [place] [address], * (ABNORMAL) Complete blood count (2024 11:01 AM EDT) WBC 5.7 4.8 - 10.8 K/mcL LAB HEMETOLOGY METHOD 2024 1:59 PM EDT [facility] RBC 3.60(L) 4.50 - 5.50 M/mcL LAB HEMETOLOGY METHOD 2024 1:59 PM EDT [facility] Hemoglobin 11.6(L) 13.5 - 17.5 g/dL LAB HEMETOLOGY METHOD 2024 1:59 PM EDT [facility] Hematocrit 32.7(L) 42.0 - 54.0 % LAB HEMETOLOGY METHOD 2024 1:59 PM EDT [facility] MCV 91.6 79.0 - 98.0 FL LAB HEMETOLOGY METHOD 2024 1:59 PM EDT [facility] MCH 32.5(H) 27.0 - 32.0 pcg LAB HEMETOLOGY METHOD 2024 1:59 PM EDT [facility] MCHC 35.5 32.0 - 37.0 g/dL LAB HEMETOLOGY METHOD 2024 1:59 PM EDT [facility] RDW 13.0 11.0 - 15.0 % LAB HEMETOLOGY METHOD 2024 1:59 PM EDT [facility] Platelets 156 130 - 400 K/mcL LAB HEMETOLOGY METHOD 2024 1:59 PM EDT [facility] MPV 9.2 7.0 - 11.0 FL LAB HEMETOLOGY METHOD 2024 1:59 PM EDT [facility] NRBC 0.0 <1.0 % LAB HEMETOLOGY METHOD 2024 1:59 PM EDT [facility] NRBC Absolute 0.00 <0.10 K/mcL LAB HEMETOLOGY METHOD 2024 1:59 PM EDT [facility] Blood Venous blood specimen / Unknown Venipuncture / Unknown 2024 11:01 AM EDT 2024 12:03 PM EDT us Geena Lee MD LAB BLOOD ORDERABLES Fin al Result [facility] [address] [place] [address], documented in this encounter Visit Diagnoses Diagnosis Fracture of unspecified part of neck of left femur, initial encounter for closed fracture (CMS/HCC V24, CMS/HCC V28) documented in this encounter Care Teams Thoracic Surgeon Relationship Specialty Start Date End Date Geena Lee MD [address] [phone] PCP - General Family Medicine 03/20/24 documented as of this encounter
--- OUTSIDE RECORDS SUMMARY | 2025-01-13 13:54 | XMS_ITS | Encounter Summary ---
Author Organization [facility] Address [address] [place] [address] Care Team Providers Care Health Science Specialist Name Role Phone Geena Lee MD Primary Care Provider + Encounter Details Date Type Department Care Team (Late st Contact Info) Description 11/14/2024 Lab Requisition [facility] - Main Lab [address] [place] [address] Geena Lee MD [address] [address] Syndrome of inappropriate secretion of [...] LAB CHEMISTRY METHOD 11/15/2024 10:15 AM EDT [facility] Blood Venous blood specimen / Unknown Venipuncture / Unknown 11/15/2024 5:14 AM EDT 11/15/2024 9:37 AM EDT Geena Lee MD LAB BLOOD ORDERABLES Fin al Result [facility] [address] [place] [address], documented in this encounter Visit Diagnoses Diagnosis 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
--- OUTSIDE RECORDS SUMMARY | 2025-01-13 13:54 | XMS_ITS | Encounter Summary ---
Author Organization [facility] Address [address] [place] [address] Care Team Providers Care Barber Instructor Name Role Phone Geena Lee MD Primary Care Provider + Encounter Details Date Type Department Care Team (Late st Contact Info) Description 11/29/2024 Lab Requisition [facility] - Main Lab [address] [place] [address] Geena Lee MD [address] [address] Essential (primary) hypertension Social History [...] AM EDT) WBC 4.9 4.8 - 10.8 K/[facility] LAB HEMETOLOGY METHOD 12/02/2024 12:34 PM EDT [facility] RBC 3.90(L) 4.50 - 5.50 M/mcL LAB HEMETOLOGY METHOD 12/02/2024 12:34 PM [facility] Hemoglobin 11.3(L) 13.5 - 17.5 g/dL LAB HEMETOLOGY METHOD 12/02/2024 12:34 PM [facility] Hematocrit 32.9(L) 42.0 - 54.0 % LAB HEMETOLOGY METHOD 12/02/2024 12:34 PM [facility] MCV 84.6 79.0 - 98.0 FL LAB HEMETOLOGY METHOD 12/02/2024 12:34 PM [facility] MCH 29.0 27.0 - 32.0 pcg LAB HEMETOLOGY METHOD 12/02/2024 12:34 PM [facility] MCHC 34.3 32.0 - 37.0 g/dL LAB HEMETOLOGY METHOD 12/02/2024 12:34 PM [facility] RDW 14.8 11.0 - 15.0 % LAB HEMETOLOGY METHOD 12/02/2024 12:34 PM [facility] Platelets 179 130 - 400 K/mcL LAB HEMETOLOGY METHOD 12/02/2024 12:34 PM [facility] MPV 9.7 7.0 - 11.0 FL LAB HEMETOLOGY METHOD 12/02/2024 12:34 PM [facility] NRBC 0.0 <1.0 % LAB HEMETOLOGY METHOD 12/02/2024 12:34 PM [facility] NRBC Absolute 0.00 <0.10 K/mcL LAB HEMETOLOGY METHOD 12/02/2024 12:34 PM [facility] Blood Venous blood specimen / Unknown Venipuncture / Unknown 12/02/2024 9:32 AM EDT 12/02/2024 11:16 AM EDT us Geena Lee MD LAB BLOOD ORDERABLES Fin al Result [facility] [address] [place] [address], [place] [phone] * (ABNORMAL) Comprehensive metabolic panel (12/02/2024 9:32 AM EDT) Sodium 126(L) 133 - 145 mmol/L LAB CHEMISTRY METHOD 12/02/2024 12:37 PM EDT [facility] Potassium 4.0 3.5 - 5.5 mmol/L LAB CHEMISTRY METHOD 12/02/2024 12:37 PM [facility] Chloride 91(L) 96 - 110 mmol/L LAB CHEMISTRY METHOD 12/02/2024 12:37 PM [facility] CO2 27 21 - 32 mmol/L LAB CHEMISTRY METHOD 12/02/2024 12:37 PM [facility] Anion Gap 8 3 - 11 LAB CHEMISTRY METHOD 12/02/2024 12:37 PM [facility] Glucose 81 70 - 100 mg/dL LAB CHEMISTRY METHOD 12/02/2024 12:37 PM [facility] BUN 11 5 - 25 mg/dL LAB CHEMISTRY METHOD 12/02/2024 12:37 PM [facility] Creatinine 0.69(L) 0.70 - 1.30 mg/dL LAB CHEMISTRY METHOD 12/02/2024 12:37 PM [facility] eGFR 100 >=60 mL/min/1. 73m2 LAB CHEMISTRY METHOD 12/02/2024 12:37 PM [facility] Comment:Calculation based on the Chronic Kidney Disease Epidemiology Collaboration (CKD-EPI) equation refit without adjustment for race. BUN/Creatinine Ratio 15.9 LAB CHEMISTRY METHOD 12/02/2024 12:37 PM [facility] Calcium 8.7 8.5 - 10.5 mg/dL LAB CHEMISTRY METHOD 12/02/2024 12:37 PM EDT [facility] AST (SGOT) 28 10 - 42 unit/L LAB CHEMISTRY METHOD 12/02/2024 12:37 PM EDT [facility] ALT (SGPT) 11 10 - 60 unit/L LAB CHEMISTRY METHOD 12/02/2024 12:37 PM EDT [facility] Alkaline Phosphatase 73 42 - 121 unit/L LAB CHEMISTRY METHOD 12/02/2024 12:37 PM EDT [facility] Total Protein 6.7 6.0 - 8.0 g/dL LAB CHEMISTRY METHOD 12/02/2024 12:37 PM [facility] Albumin 3.1(L) 3.2 - 5.0 g/dL LAB CHEMISTRY METHOD 12/02/2024 12:37 PM EDT [facility] Total Bilirubin 0.7 0.0 - 1.4 mg/dL LAB CHEMISTRY METHOD 12/02/2024 12:37 PM EDT [facility] Blood Venous blood specimen / Unknown Venipuncture / Unknown 12/02/2024 9:32 AM EDT 12/02/2024 11:16 AM EDT us Geena Lee MD LAB BLOOD ORDERABLES Fin al Result [facility] [address] [place] [address], documented in this encounter Visit Diagnoses Diagnosis Essential (primary) hypertension Unspecified essential hypertension documented in this encounter Care Teams Barber Instructor Relationship Specialty Start Date End Date Geena Lee MD [address] [place] [phone] PCP - General Family Medicine 03/20/24 documented as of this encounter
--- OUTSIDE RECORDS SUMMARY | 2025-01-13 13:54 | XMS_ITS | Encounter Summary ---
Author Organization [facility] Address [address] [place] [address] Care Team Providers Care Women Specialist Name Role Phone Geena Lee MD Primary Care Provider + Encounter Details Date Type Department Care Team (Late st Contact Info) Description 09/13/[address] [facility] - Main Lab [address] [place] [address] Geena Lee MD [address] [address] Essential (primary) hypertension Social History [...] LAB CHEMISTRY METHOD 09/13/2024 1:09 PM EDT [facility] Potassium 3.7 3.5 - 5.5 mmol/L LAB CHEMISTRY METHOD 09/13/2024 1:09 PM [facility] Chloride 92(L) 96 - 110 mmol/L LAB CHEMISTRY METHOD 09/13/2024 1:09 PM [facility] CO2 22 21 - 32 mmol/L LAB CHEMISTRY METHOD 09/13/2024 1:09 PM [facility] Anion Gap 12(H) 3 - 11 LAB CHEMISTRY METHOD 09/13/2024 1:09 PM [facility] Glucose 59(L) 70 - 100 mg/dL LAB CHEMISTRY METHOD 09/13/2024 1:09 PM [facility] BUN 14 5 - 25 mg/dL LAB CHEMISTRY METHOD 09/13/2024 1:09 PM [facility] Creatinine 0.65(L) 0.70 - 1.30 mg/dL LAB CHEMISTRY METHOD 09/13/2024 1:09 PM [facility] eGFR 102 >=60 mL/min/1. 73m2 LAB CHEMISTRY METHOD 09/13/2024 1:09 PM [facility] Comment:Calculation based on the Chronic Kidney Disease Epidemiology Collaboration (CKD-EPI) equation refit without adjustment for race. BUN/Creatinine Ratio 21.5 LAB CHEMISTRY METHOD 09/13/2024 1:09 PM [facility] Calcium 9.1 8.5 - 10.5 mg/dL LAB CHEMISTRY METHOD 09/13/2024 1:09 PM [facility] Blood Venous blood specimen / Unknown Venipuncture / Unknown 09/13/2024 7:48 AM EDT 09/13/2024 10:34 AM EDT us Geena Lee MD LAB BLOOD ORDERABLES Fin al Result [facility] [address] [place] [address], [place] [phone] * (ABNORMAL) Complete blood count (09/13/2024 7:48 AM EDT) [facility] WBC 5.4 4.8 - 10.8 K/mcL LAB HEMETOLOGY METHOD 09/13/2024 11:19 AM [facility] RBC 4.20(L) 4.50 - 5.50 M/mcL LAB HEMETOLOGY METHOD 09/13/2024 11:19 AM [facility] Hemoglobin 13.7 13.5 - 17.5 g/dL LAB HEMETOLOGY METHOD 09/13/2024 11:19 AM [facility] Hematocrit 38.2(L) 42.0 - 54.0 % LAB HEMETOLOGY METHOD 09/13/2024 11:19 AM [facility] MCV 90.5 79.0 - 98.0 FL LAB HEMETOLOGY METHOD 09/13/2024 11:19 AM [facility] MCH 32.5(H) 27.0 - 32.0 pcg LAB HEMETOLOGY METHOD 09/13/2024 11:19 AM [facility] MCHC 35.9 32.0 - 37.0 g/dL LAB HEMETOLOGY METHOD 09/13/2024 11:19 AM [facility] RDW 13.2 11.0 - 15.0 % LAB HEMETOLOGY METHOD 09/13/2024 11:19 AM [facility] Platelets 190 130 - 400 K/mcL LAB HEMETOLOGY METHOD 09/13/2024 11:19 AM [facility] MPV 9.1 7.0 - 11.0 FL LAB HEMETOLOGY METHOD 09/13/2024 11:19 AM [facility] NRBC 0.0 <1.0 % LAB HEMETOLOGY METHOD 09/13/2024 11:19 AM [facility] NRBC Absolute 0.00 <0.10 K/mcL LAB HEMETOLOGY METHOD 09/13/2024 11:19 AM EDT [facility] Blood Venous blood specimen / Unknown Venipuncture / Unknown 09/13/2024 7:48 AM EDT 09/13/2024 10:34 AM EDT us Geena Lee MD LAB BLOOD ORDERABLES Fin al Result [facility] [address] [place] [address], documented in this encounter Visit Diagnoses Diagnosis Essential (primary) hypertension Unspecified essential hypertension documented in this encounter Care Teams Women Specialist Relationship Specialty Start Date End Date Geena Lee MD [address] [address] PCP - General Family Medicine 03/20/24 documented as of this encounter
--- OUTSIDE RECORDS SUMMARY | 2025-01-13 13:54 | XMS_ITS | Encounter Summary ---
Author Organization [facility] Address [address] [place] [address] Care Team Providers Care Nursing Tech Name Role Phone Geena Lee MD Primary Care Provider + Encounter Details Date Type Department Care Team (Late st Contact Info) Description 11/25/2024 Lab Requisition [facility] - Main Lab 299 [facility] [place] [phone] Geena Lee MD [address] [address] Social History Tobacco Use Types Packs/Day Years [...] on filedocumented in this encounter Care Teams Nursing Tech Relationship Specialty Start Date End Date Geena Lee MD [address] [address] PCP - General Family Medicine 03/20/24 documented as of this encounter
--- OUTSIDE RECORDS SUMMARY | 2025-01-13 13:54 | XMS_ITS | Encounter Summary ---
Author Organization [facility] Address [address] [place] [address] Care Team Providers Care Gravity Prospecting Operator Helper Name Role Phone Geena Lee MD Primary Care Provider + Encounter Details Date Type Department Care Team (Late st Contact Info) Description 11/08/2024 Lab Requisition [facility] - Main Lab [address] [place] [address] Geena Lee MD [address] [phone] Essential (primary) hypertension Social History Tobacco Use [...] AM EDT) WBC 6.2 4.8 - 10.8 K/[facility] LAB HEMETOLOGY METHOD 11/11/2024 12:[address] [facility] LAB RBC 3.90(L) 4.50 - 5.50 M/mcL LAB HEMETOLOGY METHOD 11/11/2024 12:35 PM EDT [facility] LAB Hemoglobin 11.2(L) 13.5 - 17.5 g/dL LAB HEMETOLOGY METHOD 11/11/2024 12:35 PM [facility] LAB Hematocrit 32.7(L) 42.0 - 54.0 % LAB HEMETOLOGY METHOD 11/11/2024 12:35 PM T [facility] LAB MCV 84.3 79.0 - 98.0 FL LAB HEMETOLOGY METHOD 11/11/2024 12:35 PM [facility] LAB MCH 28.9 27.0 - 32.0 pcg LAB HEMETOLOGY METHOD 11/11/2024 12:35 PM [facility] LAB MCHC 34.3 32.0 - 37.0 g/dL LAB HEMETOLOGY METHOD 11/11/2024 12:35 PM [facility] LAB RDW 13.7 11.0 - 15.0 % LAB HEMETOLOGY METHOD 11/11/2024 12:35 PM [facility] LAB Platelets 252 130 - 400 K/mcL LAB HEMETOLOGY METHOD 11/11/2024 12:35 PM [facility] LAB MPV 9.8 7.0 - 11.0 FL LAB HEMETOLOGY METHOD 11/11/2024 12:35 PM [facility] LAB NRBC 0.0 <1.0 % LAB HEMETOLOGY METHOD 11/11/2024 12:35 PM [facility] LAB NRBC Absolute 0.00 <0.10 K/mcL LAB HEMETOLOGY METHOD 11/11/2024 12:35 PM [facility] LAB Blood Venous blood specimen / Unknown Venipuncture / Unknown 11/11/2024 10:04 AM EDT 11/11/2024 11:21 AM EDT us Geena Lee MD LAB BLOOD ORDERABLES Fin al Result [facility] LAB [address] [place] [address], [place] [phone] * (ABNORMAL) Comprehensive metabolic panel (11/11/2024 10:04 AM EDT) Sodium 126(L) 133 - 145 mmol/L LAB [facility] Potassium 3.6 3.5 - 5.5 mmol/L LAB CHEMISTRY METHOD 11/11/2024 1:13 PM [facility] LAB Chloride 92(L) 96 - 110 mmol/L LAB CHEMISTRY METHOD 11/11/2024 1:13 PM [facility] LAB CO2 25 21 - 32 mmol/L LAB CHEMISTRY METHOD 11/11/2024 1:13 PM [facility] LAB Anion Gap 9 3 - 11 LAB CHEMISTRY METHOD 11/11/2024 1:13 PM [facility] LAB Glucose 73 70 - 100 mg/dL LAB CHEMISTRY METHOD 11/11/2024 1:13 PM [facility] LAB BUN 8 5 - 25 mg/dL LAB CHEMISTRY METHOD 11/11/2024 1:13 PM [facility] LAB Creatinine 0.60(L) 0.70 - 1.30 mg/dL LAB CHEMISTRY METHOD 11/11/2024 1:13 PM [facility] LAB eGFR 104 >=60 mL/min/1. 73m2 LAB CHEMISTRY METHOD 11/11/2024 1:13 PM [facility] LAB Comment:Calculation based on the Chronic Kidney Disease Epidemiology Collaboration (CKD-EPI) equation refit without adjustment for race. BUN/Creatinine Ratio 13.3 LAB CHEMISTRY METHOD 11/11/2024 1:13 PM [facility] LAB Calcium 8.8 8.5 - 10.5 [...] Result [facility] LAB [address] [place] [address], documented in this encounter Visit Diagnoses Diagnosis Essential (primary) hypertension Unspecified essential hypertension documented in this encounter Care Teams Gravity Prospecting Operator Helper Relationship Specialty Start Date End Date Geena Lee MD [address] [place] [phone] PCP - General Family Medicine 03/20/24 documented as of this encounter
--- OUTSIDE RECORDS SUMMARY | 2025-01-13 13:54 | XMS_ITS | Clinical Summary ---
Author Organization [facility] Address [address] [facility] [address] [place] [address] Phone Care Team Providers Care Hazardous Waste Remover Name Role Phone Unavailable Primary Care Provider [...] patient's age to complete this topic Insurance [facility] ([id number]) [facility] ([id number])
--- OUTSIDE RECORDS SUMMARY | 2025-01-13 13:54 | XMS_ITS | Encounter Summary ---
Author Organization [facility] Address [address] [place] [address] Care Team Providers Care Low Pressure Boiler Tender Name Role Phone Geena Lee MD Primary Care Provider + Encounter Details Date Type Department Care Team (Late st Contact Info) Description 03/26/2024 Lab Requisition [facility] - Main Lab [address] [place] [address] Geena Lee MD [address] [address] Chronic systolic (congestive) heart failure [...] mmol/L LAB CHEMISTRY METHOD 03/26/2024 10:59 AM [facility] LAB Potassium 4.4 3.5 - 5.5 mmol/L LAB CHEMISTRY METHOD 03/26/2024 10:59 AM [facility] LAB Chloride 99 96 - 110 mmol/L LAB CHEMISTRY METHOD 03/26/2024 10:59 AM [facility] LAB CO2 26 21 - 32 mmol/L LAB CHEMISTRY METHOD 03/26/2024 10:59 AM [facility] LAB Anion Gap 9 3 - 11 LAB CHEMISTRY METHOD 03/26/2024 10:59 AM [facility] LAB Glucose 84 70 - 100 mg/dL LAB CHEMISTRY METHOD 03/26/2024 10:59 AM [facility] LAB BUN 16 5 - 25 mg/dL LAB CHEMISTRY METHOD 03/26/2024 10:59 AM [facility] LAB Creatinine 0.66(L) 0.70 - 1.30 mg/dL LAB CHEMISTRY METHOD 03/26/2024 10:59 AM [facility] LAB eGFR 102 >=60 mL/min/1. 73m2 LAB CHEMISTRY METHOD 03/26/2024 10:59 AM [facility] LAB Comment:Calculation based on the Chronic Kidney Disease Epidemiology Collaboration (CKD-EPI) equation refit without adjustment for race. BUN/Creatinine Ratio 24.2 LAB CHEMISTRY METHOD 03/26/2024 10:59 AM [facility] LAB Calcium 8.4(L) 8.5 - 10.5 mg/dL LAB CHEMISTRY METHOD 03/26/2024 10:59 AM [facility] LAB AST (SGOT) 27 10 - 42 unit/L LAB CHEMISTRY METHOD 03/26/2024 10:59 AM [facility] LAB ALT (SGPT) 26 10 - 60 unit/L LAB CHEMISTRY METHOD 03/26/2024 10:59 AM [facility] LAB Alkaline Phosphatase 136(H) 42 - 121 unit/L LAB CHEMISTRY METHOD 03/26/2024 10:59 AM EST [facility] LAB Total Protein 6.2 6.0 - 8.0 g/dL LAB CHEMISTRY METHOD 03/26/2024 10:59 AM EST [facility] LAB Albumin 2.5(L) 3.2 - 5.0 g/dL LAB CHEMISTRY METHOD 03/26/2024 10:59 AM [facility] LAB Total Bilirubin 0.5 0.0 - 1.4 mg/dL LAB CHEMISTRY METHOD 03/26/2024 10:59 AM EST [facility] LAB Blood Venous blood specimen / Unknown Venipuncture / Unknown 03/26/2024 5:10 AM EST 03/26/2024 9:55 AM EST us Geena Lee MD LAB BLOOD ORDERABLES Fin al Result [facility] LAB [address] [place] [address], documented in this encounter Visit Diagnoses Diagnosis Chronic systolic (congestive) heart failure (CMS/HCC V24, CMS/HCC V28) Fracture of unspecified part of neck of left femur, subsequent encounter for closed fracture with routine healing documented in this encounter Care Teams Low Pressure Boiler Tender Relationship Specialty Start Date End Date Geena Lee MD [address] [place] [phone] PCP - General Family Medicine 03/20/24 documented as of this encounter
--- OUTSIDE RECORDS SUMMARY | 2025-01-13 13:54 | XMS_ITS | Encounter Summary ---
Author Organization [facility] Address [address] [place] [address] Care Team Providers Care Assistant Professor Name Role Phone Geena Lee MD Primary Care Provider + Encounter Details Date Type Department Care Team (Late st Contact Info) Description 12/03/2024 Lab Requisition [facility] - Main Lab [address] [place] [address] Geena Lee MD [address] [phone] Hypo-osmolality and hyponatremia Social History Tobacco Use [...] LAB CHEMISTRY METHOD 12/04/2024 11:08 AM EDT [facility] ([facility]) [facility] LAB Blood Venous blood specimen / Unknown Venipuncture / Unknown 12/04/2024 7:47 AM EDT 12/04/2024 9:51 AM EDT us Geena Lee MD LAB BLOOD ORDERABLES Fin al Result [facility] ([facility]) [facility] LAB [address] [place] [address], documented in this encounter Visit Diagnoses Diagnosis Hypo-osmolality and hyponatremia documented in this encounter Care Teams Assistant Professor Relationship Specialty Start Date End Date Geena Lee MD [address] [place] [phone] PCP - General Family Medicine 03/20/24 documented as of this encounter
--- OUTSIDE RECORDS SUMMARY | 2025-01-13 13:54 | XMS_ITS | Encounter Summary ---
Author Organization [facility] Address [address] [place] [address] Care Team Providers Care Shift Supervisor Rn Name Role Phone Geena Lee MD Primary Care Provider + Encounter Details Date Type Department Care Team (Late st Contact Info) Description 11/25/2024 Lab Requisition [facility] - Main Lab [address] [place] [address] Geena Lee MD [address] [phone] Essential (primary) hypertension Social History Tobacco Use [...] CHEMISTRY METHOD 11/26/2024 10:42 AM EDT [facility] ([facility]) [facility] LAB Potassium 4.1 3.5 - 5.5 mmol/L LAB CHEMISTRY METHOD 11/26/2024 10:42 AM [facility] LAB Chloride 94(L) 96 - 110 mmol/L LAB CHEMISTRY METHOD 11/26/2024 10:42 AM [facility] LAB CO2 26 21 - 32 mmol/L LAB CHEMISTRY METHOD 11/26/2024 10:42 AM [facility] LAB Anion Gap 8 3 - 11 LAB CHEMISTRY METHOD 11/26/2024 10:42 AM [facility] LAB Glucose 65(L) 70 - 100 mg/dL LAB CHEMISTRY METHOD 11/26/2024 10:42 AM [facility] LAB BUN 11 5 - 25 mg/dL LAB CHEMISTRY METHOD 11/26/2024 10:42 AM [facility] LAB Creatinine 0.54(L) 0.70 - 1.30 mg/dL LAB CHEMISTRY METHOD 11/26/2024 10:42 AM [facility] LAB eGFR 108 >=60 mL/min/1. 73m2 LAB CHEMISTRY METHOD 11/26/2024 10:42 AM [facility] LAB Comment:Calculation based on the Chronic Kidney Disease Epidemiology Collaboration (CKD-EPI) equation refit without adjustment for race. BUN/Creatinine Ratio 20.4 LAB CHEMISTRY METHOD 11/26/2024 10:42 AM [facility] LAB Calcium 8.7 8.5 - 10.5 mg/dL LAB CHEMISTRY METHOD 11/26/2024 10:42 AM [facility] LAB AST (SGOT) 25 10 - 42 unit/L LAB CHEMISTRY METHOD 11/26/2024 10:42 AM [facility] LAB ALT (SGPT) 14 10 - 60 unit/L LAB CHEMISTRY METHOD 11/26/2024 10:42 AM [facility] LAB Alkaline Phosphatase 78 42 - 121 unit/L LAB CHEMISTRY METHOD 11/26/2024 10:42 AM [facility] LAB Total Protein 7.1 6.0 - 8.0 g/dL LAB CHEMISTRY METHOD 11/26/2024 10:[address] [facility] LAB Albumin 3.5 3.2 - 5.0 g/dL LAB CHEMISTRY METHOD 11/26/2024 10:[address] [facility] LAB Total Bilirubin 0.5 0.0 - 1.4 mg/dL LAB CHEMISTRY METHOD 11/26/2024 10:[address] [facility] LAB Blood Venous blood specimen / Unknown Venipuncture / Unknown 11/26/2024 5:49 AM EDT 11/26/2024 9:15 AM EDT us Geena Lee MD LAB BLOOD ORDERABLES Fin al Result [facility] LAB [address] [place] [address], * (ABNORMAL) Complete blood count (11/26/2024 5:49 AM EDT) WBC 5.3 4.8 - 10.8 K/mcL LAB HEMETOLOGY METHOD 11/26/2024 9:42 AM [facility] LAB RBC 4.00(L) 4.50 - 5.50 M/mcL LAB HEMETOLOGY METHOD 11/26/2024 9:42 AM [facility] LAB Hemoglobin 11.6(L) 13.5 - 17.5 g/dL LAB HEMETOLOGY METHOD 11/26/2024 9:42 AM [facility] LAB Hematocrit 33.6(L) 42.0 - 54.0 % LAB HEMETOLOGY METHOD 11/26/2024 9:42 AM [facility] LAB MCV 84.0 79.0 - 98.0 FL LAB HEMETOLOGY METHOD 11/26/2024 9:42 AM [facility] LAB MCH 29.0 27.0 - 32.0 pcg LAB HEMETOLOGY METHOD 11/26/2024 9:[address] [facility] LAB MCHC 34.5 32.0 - 37.0 g/dL LAB HEMETOLOGY METHOD 11/26/2024 9:[address] [facility] LAB RDW 14.2 11.0 - 15.0 % LAB HEMETOLOGY METHOD 11/26/2024 9:[address] [facility] LAB Platelets 195 130 - 400 K/mcL LAB HEMETOLOGY METHOD 11/26/2024 9:[address] [facility] LAB MPV 10.2 7.0 - 11.0 FL LAB HEMETOLOGY METHOD 11/26/2024 9:[address] [facility] LAB NRBC 0.0 <1.0 % LAB HEMETOLOGY METHOD 11/26/2024 9:[address] [facility] LAB NRBC Absolute 0.00 <0.10 K/mcL LAB HEMETOLOGY METHOD 11/26/2024 9:[address] [facility] LAB Blood Venous blood specimen / Unknown Venipuncture / Unknown 11/26/2024 5:49 AM EDT 11/26/2024 9:15 AM EDT us Geena Lee MD LAB BLOOD ORDERABLES Fin al Result [facility] [address] [place] [address], documented in this encounter Visit Diagnoses Diagnosis Essential (primary) hypertension Unspecified essential hypertension documented in this encounter Care Teams Shift Supervisor Rn Relationship Specialty Start Date End Date Geena Lee MD [address] [place] [phone] PCP - General Family Medicine 03/20/24 documented as of this encounter
--- OUTSIDE RECORDS SUMMARY | 2025-01-13 13:54 | XMS_ITS | Encounter Summary ---
Author Organization [facility] Address [address] [place] [address] Care Team Providers Care Vehicle Refinisher Name Role Phone Geena Lee MD Primary Care Provider + Encounter Details Date Type Department Care Team (Late st Contact Info) Description 04/16/2024 Lab Requisition [facility] - Main Lab [address] [place] [address] Geena Lee MD [address] [phone] Hyperlipidemia, unspecified; Essential (primary) hypertension Social History [...] LAB CHEMISTRY METHOD 04/18/2024 12:51 PM EST [facility] LAB Potassium 4.0 3.5 - 5.5 mmol/L LAB CHEMISTRY METHOD 04/18/2024 12:51 PM EST [facility] LAB Chloride 97 96 - 110 mmol/L LAB CHEMISTRY METHOD 04/18/2024 12:51 PM [facility] LAB CO2 29 21 - 32 mmol/L LAB CHEMISTRY METHOD 04/18/2024 12:51 PM [facility] LAB Anion Gap 6 3 - 11 LAB CHEMISTRY METHOD 04/18/2024 12:51 PM [facility] LAB Glucose 87 70 - 100 mg/dL LAB CHEMISTRY METHOD 04/18/2024 12:51 PM [facility] LAB BUN 15 5 - 25 mg/dL LAB CHEMISTRY METHOD 04/18/2024 12:51 PM [facility] LAB Creatinine 0.84 0.70 - 1.30 mg/dL LAB CHEMISTRY METHOD 04/18/2024 12:51 PM [facility] LAB eGFR 95 >=60 mL/min/1. 73m2 LAB CHEMISTRY METHOD 04/18/2024 12:51 PM [facility] LAB Comment:Calculation based on the Chronic Kidney Disease Epidemiology Collaboration (CKD-EPI) equation refit without adjustment for race. BUN/Creatinine Ratio 17.9 LAB CHEMISTRY METHOD 04/18/2024 12:51 PM [facility] LAB Calcium 8.9 8.5 - 10.5 mg/dL LAB CHEMISTRY METHOD 04/18/2024 12:51 PM [facility] LAB Blood Venous blood specimen / Unknown 04/18/2024 8:22 AM EST 04/18/2024 11:52 AM EST us Geena Lee MD LAB BLOOD ORDERABLES Fin al Result [facility] [address] [place] [address], documented in this encounter Visit Diagnoses Diagnosis Hyperlipidemia, unspecified Essential (primary) hypertension Unspecified essential hypertension documented in this encounter Care Teams Vehicle Refinisher Relationship Specialty Start Date End Date Geena Lee MD [address] [phone] PCP - General Family Medicine 03/20/24 documented as of this encounter
--- OUTSIDE RECORDS SUMMARY | 2025-01-13 13:54 | XMS_ITS | Encounter Summary ---
Author Organization [facility] Address [address] [place] [address] Care Team Providers Care Cue Selector Name Role Phone Geena Lee MD Primary Care Provider + Encounter Details Date Type Department Care Team (Late st Contact Info) Description 09/05/2024 Lab Requisition [facility] - Main Lab [address] [place] [address] Geena Lee MD [address] [address] Essential (primary) hypertension; Unspecified atrial [...] LAB CHEMISTRY METHOD 09/06/2024 10:18 AM EDT [facility] LAB Blood Venous blood specimen / Unknown Venipuncture / Unknown 09/06/2024 7:32 AM EDT 09/06/2024 9:36 AM EDT us Geena Lee MD LAB BLOOD ORDERABLES Fin al Result [facility] ([facility]) [facility] [address] [place] [address], documented in this encounter Visit Diagnoses Diagnosis Essential (primary) hypertension Unspecified essential hypertension Unspecified atrial fibrillation (CMS/HCC V24, CMS/HCC V28) Chronic kidney disease, unspecified documented in this encounter Care Teams Cue Selector Relationship Specialty Start Date End Date Geena Lee MD [address] [phone] PCP - General Family Medicine 03/20/24 documented as of this encounter
--- OUTSIDE RECORDS SUMMARY | 2025-01-13 13:54 | XMS_ITS | Encounter Summary ---
Author Organization [facility] Address [address] [place] [address] Care Team Providers Care Turf And Grounds Supervisor Name Role Phone Geena Lee MD Primary Care Provider + Encounter Details Date Type Department Care Team (Late st Contact Info) Description 09/06/2024 Lab Requisition [facility] - Main Lab [address] [facility] [place] [address] Geena Lee MD [address] [place] [phone] Unspecified atrial fibrillation (CMS/HCC V24, CMS/HCC V28); [...] unspecified documented in this encounter Care Teams Turf And Grounds Supervisor Relationship Specialty Start Date End Date Geena Lee MD [address] [place] [address] [phone] PCP - General Family Medicine 03/20/24 documented as of this encounter
--- OUTSIDE RECORDS SUMMARY | 2025-01-13 13:54 | XMS_ITS | Encounter Summary ---
Author Organization [facility] Address [address] [place] [address] Care Team Providers Care Licensing Registration Examiner Name Role Phone Geena Lee MD Primary Care Provider + Encounter Details Date Type Department Care Team (Late st Contact Info) Description 09/15/2024 Lab Requisition [facility] - Main Lab [address] [place] [address] Geena Lee MD [address] [phone] Essential (primary) hypertension Social History Tobacco Use [...] LAB CHEMISTRY METHOD 09/17/2024 1:04 PM EDT [facility] Potassium 4.1 3.5 - 5.5 mmol/L LAB CHEMISTRY METHOD 09/17/2024 1:04 PM [facility] LAB Chloride 90(L) 96 - 110 mmol/L LAB CHEMISTRY METHOD 09/17/2024 1:04 PM [facility] LAB CO2 22 21 - 32 mmol/L LAB CHEMISTRY METHOD 09/17/2024 1:04 PM [facility] LAB Anion Gap 14(H) 3 - 11 LAB CHEMISTRY METHOD 09/17/2024 1:04 PM [facility] LAB Glucose 108(H) 70 - 100 mg/dL LAB CHEMISTRY METHOD 09/17/2024 1:04 PM [facility] LAB BUN 24 5 - 25 mg/dL LAB CHEMISTRY METHOD 09/17/2024 1:04 PM [facility] LAB Creatinine 0.83 0.70 - 1.30 mg/dL LAB CHEMISTRY METHOD 09/17/2024 1:04 PM [facility] LAB eGFR 95 >=60 mL/min/1. 73m2 LAB CHEMISTRY METHOD 09/17/2024 1:04 PM [facility] LAB Comment:Calculation based on the Chronic Kidney Disease Epidemiology Collaboration (CKD-EPI) equation refit without adjustment for race. BUN/Creatinine Ratio 28.9 LAB CHEMISTRY METHOD 09/17/2024 1:04 PM [facility] LAB Calcium 8.7 8.5 - 10.5 mg/dL LAB CHEMISTRY METHOD 09/17/2024 1:04 PM [facility] LAB AST (SGOT) 18 10 - 42 unit/L LAB CHEMISTRY METHOD 09/17/2024 1:04 PM [facility] LAB ALT (SGPT) 12 10 - 60 unit/L LAB CHEMISTRY METHOD 09/17/2024 1:04 PM [facility] LAB Alkaline Phosphatase 66 42 - 121 unit/L LAB CHEMISTRY METHOD 09/17/2024 1:04 PM [facility] LAB Total Protein 6.5 6.0 - 8.0 g/dL LAB CHEMISTRY METHOD 09/17/2024 1:04 PM EDT [facility] LAB Albumin 3.0(L) 3.2 - 5.0 g/dL LAB CHEMISTRY METHOD 09/17/2024 1:04 PM [facility] LAB Total Bilirubin 0.7 0.0 - 1.4 mg/dL LAB CHEMISTRY METHOD 09/17/2024 1:04 PM EDT [facility] LAB Blood Venous blood specimen / Unknown Venipuncture / Unknown 09/17/2024 8:46 AM EDT 09/17/2024 10:34 AM EDT us Geena Lee MD LAB BLOOD ORDERABLES Fin al Result [facility] [address] [place] [address], * (ABNORMAL) Complete blood count (09/17/2024 8:46 AM EDT) WBC 8.7 4.8 - 10.8 K/mcL LAB HEMETOLOGY METHOD 09/17/2024 11:39 AM [facility] LAB RBC 3.10(L) 4.50 - 5.50 M/mcL LAB HEMETOLOGY METHOD 09/17/2024 11:39 AM [facility] Hemoglobin 10.2(L) 13.5 - 17.5 g/dL LAB HEMETOLOGY METHOD 09/17/2024 11:39 AM [facility] LAB Hematocrit 29.1(L) 42.0 - 54.0 % LAB HEMETOLOGY METHOD 09/17/2024 11:39 AM [facility] LAB MCV 93.0 79.0 - 98.0 FL LAB HEMETOLOGY METHOD 09/17/2024 11:39 AM [facility] LAB MCH 32.6(H) 27.0 - 32.0 pcg LAB HEMETOLOGY METHOD 09/17/2024 11:39 AM EDT [facility] LAB MCHC 35.1 32.0 - 37.0 g/dL LAB HEMETOLOGY METHOD 09/17/2024 11:39 AM EDT [facility] RDW 13.4 11.0 - 15.0 % LAB HEMETOLOGY METHOD 09/17/2024 11:39 AM EDT [facility] Platelets 230 130 - 400 K/mcL LAB HEMETOLOGY METHOD 09/17/2024 11:39 AM EDT [facility] MPV 9.2 7.0 - 11.0 FL LAB HEMETOLOGY METHOD 09/17/2024 11:39 AM EDT [facility] NRBC 0.0 <1.0 % LAB HEMETOLOGY METHOD 09/17/2024 11:39 AM EDT [facility] NRBC Absolute 0.00 <0.10 K/mcL LAB HEMETOLOGY METHOD 09/17/2024 11:39 AM EDT [facility] Blood Venous blood specimen / Unknown Venipuncture / Unknown 09/17/2024 8:46 AM EDT 09/17/2024 10:34 AM EDT us Geena Lee MD LAB BLOOD ORDERABLES Fin al Result [facility] [address] [place] [address], documented in this encounter Visit Diagnoses Diagnosis Essential (primary) hypertension Unspecified essential hypertension documented in this encounter Care Teams Licensing Registration Examiner Relationship Specialty Start Date End Date Geena Lee MD [address] [phone] PCP - General Family Medicine 03/20/24 documented as of this encounter
--- OUTSIDE RECORDS SUMMARY | 2025-01-13 13:54 | XMS_ITS | Encounter Summary ---
Author Organization [facility] Address [address] [place] [address] Care Team Providers Care Media Technician Name Role Phone Elder, Geena Mane MD Primary Care Provider + Encounter Details Date Type Department Care Team (Late st Contact Info) Description 06/25/2024 Lab Requisition [facility] - Main Lab [address] [place] [phone] Marina Rowe NP [address] [place] [address] Essential (primary) hypertension; Hypo-osmolality and [...] LAB CHEMISTRY METHOD 06/25/2024 10:22 AM EST [facility] ([facility] LAB Potassium 4.0 3.5 - 5.5 mmol/L LAB CHEMISTRY METHOD 06/25/2024 10:22 AM [facility] LAB Chloride 91(L) 96 - 110 mmol/L LAB CHEMISTRY METHOD 06/25/2024 10:22 AM [facility] LAB CO2 29 21 - 32 mmol/L LAB CHEMISTRY METHOD 06/25/2024 10:22 AM [facility] LAB Anion Gap 9 3 - 11 LAB CHEMISTRY METHOD 06/25/2024 10:22 AM [facility] LAB Glucose 76 70 - 100 mg/dL LAB CHEMISTRY METHOD 06/25/2024 10:22 AM [facility] LAB BUN 17 5 - 25 mg/dL LAB CHEMISTRY METHOD 06/25/2024 10:22 AM [facility] LAB Creatinine 0.74 0.70 - 1.30 mg/dL LAB CHEMISTRY METHOD 06/25/2024 10:22 AM [facility] LAB eGFR 99 >=60 mL/min/1. 73m2 LAB CHEMISTRY METHOD 06/25/2024 10:22 AM [facility] LAB Comment:Calculation based on the Chronic Kidney Disease Epidemiology Collaboration (CKD-EPI) equation refit without adjustment for race. BUN/Creatinine Ratio 23.0 LAB CHEMISTRY METHOD 06/25/2024 10:22 AM [facility] LAB Calcium 9.6 8.5 - 10.5 mg/dL LAB CHEMISTRY METHOD 06/25/2024 10:22 AM [facility] LAB AST (SGOT) 15 10 - 42 unit/L LAB CHEMISTRY METHOD 06/25/2024 10:22 AM [facility] LAB ALT (SGPT) 11 10 - 60 unit/L LAB CHEMISTRY METHOD 06/25/2024 10:22 AM [facility] LAB Alkaline Phosphatase 106 42 - 121 unit/L LAB CHEMISTRY METHOD 06/25/2024 10:22 AM [facility] LAB Total Protein 8.3(H) 6.0 - 8.0 g/dL LAB CHEMISTRY METHOD 06/25/2024 10:22 AM [facility] LAB Albumin 3.5 3.2 - 5.0 g/dL LAB CHEMISTRY METHOD 06/25/2024 10:22 AM [facility] LAB Total Bilirubin 0.6 0.0 - 1.4 mg/dL LAB CHEMISTRY METHOD 06/25/2024 10:22 AM [facility] LAB Blood Venous blood specimen / Unknown Venipuncture / Unknown 06/25/2024 5:13 AM EST 06/25/2024 9:01 AM EST us Marian Rowe SQUIRREL WORKER LAB BLOOD ORDERABLES Final Resul t [facility] LAB [address] [place] [address], * (ABNORMAL) Complete blood count (06/25/2024 5:13 AM EST) WBC 7.3 4.8 - 10.8 K/mcL LAB HEMETOLOGY METHOD 06/25/2024 10:02 AM [facility] LAB RBC 4.40(L) 4.50 - 5.50 M/mcL LAB HEMETOLOGY METHOD 06/25/2024 10:02 AM [facility] LAB Hemoglobin 14.0 13.5 - 17.5 g/dL LAB HEMETOLOGY METHOD 06/25/2024 10:02 AM [facility] LAB Hematocrit 39.7(L) 42.0 - 54.0 % LAB HEMETOLOGY METHOD 06/25/2024 10:02 AM [facility] LAB MCV 91.3 79.0 - 98.0 FL LAB HEMETOLOGY METHOD 06/25/2024 10:02 AM [facility] LAB MCH 32.2(H) 27.0 - 32.0 pcg LAB HEMETOLOGY METHOD 06/25/2024 10:02 AM [facility] LAB MCHC 35.3 32.0 - 37.0 g/dL LAB HEMETOLOGY METHOD 06/25/2024 10:02 AM EST [facility] LAB RDW 13.7 11.0 - 15.0 % LAB HEMETOLOGY METHOD 06/25/2024 10:02 AM [facility] LAB Platelets 189 130 - 400 K/mcL LAB HEMETOLOGY METHOD 06/25/2024 10:02 AM [facility] LAB MPV 9.8 7.0 - 11.0 FL LAB HEMETOLOGY METHOD 06/25/2024 10:02 AM [facility] LAB NRBC 0.0 <1.0 % LAB HEMETOLOGY METHOD 06/25/2024 10:02 AM [facility] LAB NRBC Absolute 0.00 <0.10 K/mcL LAB HEMETOLOGY METHOD 06/25/2024 10:02 AM [facility] LAB Blood Venous blood specimen / Unknown Venipuncture / Unknown 06/25/2024 5:13 AM EST 06/25/2024 9:01 AM EST [facility] LAB BLOOD ORDERABLES Final Resul t [facility] LAB [address] [place] [address], documented in this encounter Visit Diagnoses Diagnosis Essential (primary) hypertension Unspecified essential hypertension Hypo-osmolality and hyponatremia documented in this encounter Care Teams Media Technician Relationship Specialty Start Date End Date Geena Lee MD [address] [place] [phone] PCP - General Family Medicine 03/20/24 documented as of this encounter
--- OUTSIDE RECORDS SUMMARY | 2025-01-13 13:54 | XMS_ITS | Encounter Summary ---
Author Organization [facility] Address [address] [place] [address] Care Team Providers Care Junior Network Engineer Name Role Phone Geena Lee MD Primary Care Provider + Encounter Details Date Type Department Care Team (Late st Contact Info) Description 11/27/2024 Lab Requisition [facility] - Main Lab [address] [place] [address] Geena Lee MD [address] [address] Chronic kidney disease, unspecified; Essential [...] LAB CHEMISTRY METHOD 11/28/2024 10:08 AM EDT [facility] ([facility]) [facility] LAB Blood Venous blood specimen / Unknown Venipuncture / Unknown 11/28/2024 5:40 AM EDT 11/28/2024 8:47 AM EDT us Geena Lee MD LAB BLOOD ORDERABLES Fin al Result [facility] ([facility]) [facility] LAB [address] [place] [address], documented in this encounter Visit Diagnoses Diagnosis Chronic kidney disease, unspecified Essential (primary) hypertension Unspecified essential hypertension documented in this encounter Care Teams Junior Network Engineer Relationship Specialty Start Date End Date Geena Lee MD [address] [place] [phone] PCP - General Family Medicine 03/20/24 documented as of this encounter
--- OUTSIDE RECORDS SUMMARY | 2025-01-13 13:54 | XMS_ITS | Encounter Summary ---
Author Organization [facility] Address [address] [place] [address] Care Team Providers Care Insurance Sales Associate Name Role Phone Geena Lee MD Primary Care Provider + Encounter Details Date Type Department Care Team (Late st Contact Info) Description 11/24/2024 Lab Requisition [facility] - Main Lab [address] [facility] [employer] [phone] Geena Lee MD [address] [address] Essential (primary) hypertension Social History Tobacco Use [...] hypertension documented in this encounter Care Teams Insurance Sales Associate Relationship Specialty Start Date End Date Geena Lee MD [address] [address] PCP - General Family Medicine 03/20/24 documented as of this encounter
--- OUTSIDE RECORDS SUMMARY | 2025-01-13 13:54 | XMS_ITS | Encounter Summary ---
Author Organization [facility] Address [address] [place] [address] Care Team Providers Care Facilitator Name Role Phone Geena Lee MD Primary Care Provider + Encounter Details Date Type Department Care Team (Late st Contact Info) Description 12/18/2024 Lab Requisition [facility] - Main Lab [address] [facility] [employer] [place] [address] Geena Lee MD [address] [address] Chronic kidney disease, unspecified; Essential (primary) hypertension [...] hypertension documented in this encounter Care Teams Facilitator Relationship Specialty Start Date End Date Geena Lee MD [address] [address] PCP - General Family Medicine 03/20/24 documented as of this encounter
--- OUTSIDE RECORDS SUMMARY | 2025-01-13 13:54 | XMS_ITS | Encounter Summary ---
Author Organization [facility] Address [address] [place] [address] Care Team Providers Care Gathering Machine Setter Name Role Phone Elder, Geena Mane MD Primary Care Provider + Encounter Details Date Type Department Care Team (Late st Contact Info) Description 07/15/2024 Lab Requisition [facility] - Main Lab [address] [place] [phone] Marian Rowe NP [address] [place] [address] Vitamin D deficiency, unspecified Social [...] LAB CHEMISTRY METHOD 07/15/2024 12:01 PM EDT [facility] ([facility]) [facility] LAB Blood Venous blood specimen / Unknown Venipuncture / Unknown 07/15/2024 8:38 AM EDT 07/15/2024 10:44 AM EDT us Marian Rowe MICROSCOPIST LAB BLOOD ORDERABLES Final Resul t [facility] ([facility]) [facility] LAB [address] [place] [address], documented in this encounter Visit Diagnoses Diagnosis Vitamin D deficiency, unspecified documented in this encounter Care Teams Gathering Machine Setter Relationship Specialty Start Date End Date Geena Lee MD [address] [place] [phone] PCP - General Family Medicine 03/20/24 documented as of this encounter
--- OUTSIDE RECORDS SUMMARY | 2025-01-13 13:54 | XMS_ITS | Encounter Summary ---
Author Organization [facility] Address [address] [place] [address] Care Team Providers Care Underwriting Consultant Name Role Phone Geena Lee MD Primary Care Provider + Encounter Details Date Type Department Care Team (Late st Contact Info) Description 04/04/2024 Lab Requisition [facility] - Main Lab [address] [facility] [place] [address] Geena Lee MD [address] [address] Chronic obstructive pulmonary disease, unspecified [...] mmol/L LAB CHEMISTRY METHOD 04/04/2024 9:[address] [facility] LAB Potassium 3.9 3.5 - 5.5 mmol/L LAB CHEMISTRY METHOD 04/04/2024 9:[address] [facility] LAB Chloride 95(L) 96 - 110 mmol/L LAB CHEMISTRY METHOD 04/04/2024 9:[address] [facility] LAB CO2 26 21 - 32 mmol/L LAB CHEMISTRY METHOD 04/04/2024 9:[address] [facility] LAB Anion Gap 8 3 - 11 LAB CHEMISTRY METHOD 04/04/2024 9:[address] [facility] LAB Glucose 84 70 - 100 mg/dL LAB CHEMISTRY METHOD 04/04/2024 9:[address] [facility] BUN 12 5 - 25 mg/dL LAB CHEMISTRY METHOD 04/04/2024 9:[address] [facility] LAB Creatinine 0.51(L) 0.70 - 1.30 mg/dL LAB CHEMISTRY METHOD 04/04/2024 9:[address] [facility] LAB eGFR 110 >=60 mL/min/1. 73m2 LAB CHEMISTRY METHOD 04/04/2024 9:[address] [facility] LAB Comment:Calculation based on the Chronic Kidney Disease Epidemiology Collaboration (CKD-EPI) equation refit without adjustment for race. BUN/Creatinine Ratio 23.5 LAB CHEMISTRY METHOD 04/04/2024 9:[address] [facility] LAB Calcium 8.9 8.5 - 10.5 mg/dL LAB CHEMISTRY METHOD 04/04/2024 9:[address] [facility] LAB Blood Venous blood specimen / Unknown Venipuncture / Unknown 04/04/2024 6:35 AM EST 04/04/2024 7:25 AM EST us Geena Lee MD LAB BLOOD ORDERABLES Fin al Result [facility] LAB [address] [place] [address], * (ABNORMAL) Complete blood count (04/04/2024 6:35 AM EST) [facility] WBC 6.2 4.8 - 10.8 K/mcL LAB HEMETOLOGY METHOD 04/04/2024 7:50 AM EST [facility] LAB RBC 3.80(L) 4.50 - 5.50 M/mcL LAB HEMETOLOGY METHOD 04/04/2024 7:[address] [facility] Hemoglobin 12.1(L) 13.5 - 17.5 g/dL LAB HEMETOLOGY METHOD 04/04/2024 7:[address] [facility] LAB Hematocrit 34.5(L) 42.0 - 54.0 % LAB HEMETOLOGY METHOD 04/04/2024 7:[address] [facility] LAB MCV 90.6 79.0 - 98.0 FL LAB HEMETOLOGY METHOD 04/04/2024 7:[address] [facility] LAB MCH 31.8 27.0 - 32.0 pcg LAB HEMETOLOGY METHOD 04/04/2024 7:[address] [facility] LAB MCHC 35.1 32.0 - 37.0 g/dL LAB HEMETOLOGY METHOD 04/04/2024 7:[address] [facility] LAB RDW 13.0 11.0 - 15.0 % LAB HEMETOLOGY METHOD 04/04/2024 7:[address] [facility] LAB Platelets 210 130 - 400 K/mcL LAB HEMETOLOGY METHOD 04/04/2024 7:[address] [facility] LAB MPV 8.8 7.0 - 11.0 FL LAB HEMETOLOGY METHOD 04/04/2024 7:[address] [facility] LAB NRBC 0.0 <1.0 % LAB HEMETOLOGY METHOD 04/04/2024 7:[address] [facility] LAB NRBC Absolute 0.00 <0.10 K/mcL LAB HEMETOLOGY METHOD 04/04/2024 7:50 AM EST [facility] LAB Blood Venous blood specimen / Unknown Venipuncture / Unknown 04/04/2024 6:35 AM EST 04/04/2024 7:25 AM EST us Geena Lee MD LAB BLOOD ORDERABLES Fin al Result [facility] ([facility]) [facility] LAB [address] [place] [address], documented in this encounter Visit Diagnoses Diagnosis Chronic obstructive pulmonary disease, unspecified (CMS/HCC V24, CMS/HCC V28) documented in this encounter Care Teams Underwriting Consultant Relationship Specialty Start Date End Date Geena Lee MD [address] [place] [address] PCP - General Family Medicine 03/20/24 documented as of this encounter
--- OUTSIDE RECORDS SUMMARY | 2025-01-13 13:54 | XMS_ITS | Encounter Summary ---
Author Organization [facility] Address [address] [place] [address] Care Team Providers Care Resawyer Name Role Phone Geena Lee MD Primary Care Provider + Encounter Details Date Type Department Care Team (Late st Contact Info) Description 11/13/2024 Lab Requisition [facility] - Main Lab [address] [place] [address] Geena Lee MD [address] [phone] Abnormal finding of blood chemistry, unspecified Social [...] LAB CHEMISTRY METHOD 11/13/2024 1:04 PM EDT [facility] Potassium 3.7 3.5 - 5.5 mmol/L LAB CHEMISTRY METHOD 11/13/2024 1:[address] [facility] LAB Chloride 94(L) 96 - 110 mmol/L LAB CHEMISTRY METHOD 11/13/2024 1:[address] [facility] LAB CO2 26 21 - 32 mmol/L LAB CHEMISTRY METHOD 11/13/2024 1:[address] [facility] LAB Anion Gap 6 3 - 11 LAB CHEMISTRY METHOD 11/13/2024 1:[address] [facility] LAB Glucose 77 70 - 100 mg/dL LAB CHEMISTRY METHOD 11/13/2024 1:[address] [facility] LAB BUN 9 5 - 25 mg/dL LAB CHEMISTRY METHOD 11/13/2024 1:[address] [facility] LAB Creatinine 0.57(L) 0.70 - 1.30 mg/dL LAB CHEMISTRY METHOD 11/13/2024 1:[address] [facility] LAB eGFR 106 >=60 mL/min/1. 73m2 LAB CHEMISTRY METHOD 11/13/2024 1:[address] [facility] LAB Comment:Calculation based on the Chronic Kidney Disease Epidemiology Collaboration (CKD-EPI) equation refit without adjustment for race. BUN/Creatinine Ratio 15.8 LAB CHEMISTRY METHOD 11/13/2024 1:[address] [facility] LAB Calcium 8.8 8.5 - 10.5 mg/dL LAB CHEMISTRY METHOD 11/13/2024 1:[address] [facility] LAB Blood Venous blood specimen / Unknown Venipuncture / Unknown 11/13/2024 11:56 AM EDT 11/13/2024 12:28 PM EDT us Geena Lee MD LAB BLOOD ORDERABLES Fin al Result [facility] LAB [address] [place] [address], documented in this encounter Visit Diagnoses Diagnosis Abnormal finding of blood chemistry, unspecified documented in this encounter Care Teams Resawyer Relationship Specialty Start Date End Date Geena Lee MD [address] [place] [address] PCP - General Family Medicine 03/20/24 documented as of this encounter
--- OUTSIDE RECORDS SUMMARY | 2025-01-13 13:54 | XMS_ITS | Encounter Summary ---
Author Organization [facility] Address [address] [place] [address] Care Team Providers Care Sales Operations Name Role Phone Geena Lee MD Primary Care Provider + Encounter Details Date Type Department Care Team (Late st Contact Info) Description 03/20/2024 Lab Requisition [facility] - Main Lab [address] [place] [address] Geena Lee MD [address] [address] Chronic obstructive pulmonary disease, unspecified [...] mmol/L LAB CHEMISTRY METHOD 03/20/2024 2:43 PM [facility] LAB Potassium 4.1 3.5 - 5.5 mmol/L LAB CHEMISTRY METHOD 03/20/2024 2:43 PM [facility] LAB Chloride 93(L) 96 - 110 mmol/L LAB CHEMISTRY METHOD 03/20/2024 2:43 PM [facility] LAB CO2 23 21 - 32 mmol/L LAB CHEMISTRY METHOD 03/20/2024 2:43 PM [facility] LAB Anion Gap 12(H) 3 - 11 LAB CHEMISTRY METHOD 03/20/2024 2:43 PM [facility] LAB Glucose 75 70 - 100 mg/dL LAB CHEMISTRY METHOD 03/20/2024 2:43 PM [facility] LAB BUN 15 5 - 25 mg/dL LAB CHEMISTRY METHOD 03/20/2024 2:43 PM [facility] LAB Creatinine 0.58(L) 0.70 - 1.30 mg/dL LAB CHEMISTRY METHOD 03/20/2024 2:43 PM [facility] LAB eGFR 106 >=60 mL/min/1. 73m2 LAB CHEMISTRY METHOD 03/20/2024 2:43 PM [facility] LAB Comment:Calculation based on the Chronic Kidney Disease Epidemiology Collaboration (CKD-EPI) equation refit without adjustment for race. BUN/Creatinine Ratio 25.9 LAB CHEMISTRY METHOD 03/20/2024 2:43 PM [facility] LAB Calcium 8.3(L) 8.5 - 10.5 mg/dL LAB CHEMISTRY METHOD 03/20/2024 2:43 PM [facility] LAB AST (SGOT) 29 10 - 42 unit/L LAB CHEMISTRY METHOD 03/20/2024 2:43 PM [facility] LAB ALT (SGPT) 30 10 - 60 unit/L LAB CHEMISTRY METHOD 03/20/2024 2:43 PM [facility] LAB Alkaline Phosphatase 114 42 - 121 unit/L LAB CHEMISTRY METHOD 03/20/2024 2:43 PM [facility] LAB Total Protein 6.6 6.0 - 8.0 g/dL LAB CHEMISTRY METHOD 03/20/2024 2:43 PM [facility] LAB Albumin 2.9(L) 3.2 - 5.0 g/dL LAB CHEMISTRY METHOD 03/20/2024 2:43 PM [facility] LAB Total Bilirubin 1.1 0.0 - 1.4 mg/dL LAB CHEMISTRY METHOD 03/20/2024 2:43 PM [facility] LAB Blood Venous blood specimen / Unknown Venipuncture / Unknown 03/20/2024 5:24 AM EST 03/20/2024 10:33 AM EST us Geena Lee MD LAB BLOOD ORDERABLES Fin al Result [facility] LAB [address] [place] [address], * (ABNORMAL) Complete blood count (03/20/2024 5:24 AM EST) WBC 10.7 4.8 - 10.8 K/mcL LAB HEMETOLOGY METHOD 03/20/2024 11:05 AM [facility] LAB RBC 4.20(L) 4.50 - 5.50 M/mcL LAB HEMETOLOGY METHOD 03/20/2024 11:05 AM [facility] LAB Hemoglobin 13.2(L) 13.5 - 17.5 g/dL LAB HEMETOLOGY METHOD 03/20/2024 11:05 AM [facility] LAB Hematocrit 38.0(L) 42.0 - 54.0 % LAB HEMETOLOGY METHOD 03/20/2024 11:05 AM [facility] LAB MCV 91.3 79.0 - 98.0 FL LAB HEMETOLOGY METHOD 03/20/2024 11:05 AM [facility] LAB MCH 31.7 27.0 - 32.0 pcg LAB HEMETOLOGY METHOD 03/20/2024 11:05 AM [facility] LAB MCHC 34.7 32.0 - 37.0 g/dL LAB HEMETOLOGY METHOD 03/20/2024 11:05 AM [facility] LAB RDW 12.9 11.0 - 15.0 % LAB HEMETOLOGY METHOD 03/20/2024 11:05 AM [facility] LAB Platelets 244 130 - 400 K/mcL LAB HEMETOLOGY METHOD 03/20/2024 11:05 AM [facility] LAB MPV 9.4 7.0 - 11.0 FL LAB HEMETOLOGY METHOD 03/20/2024 11:05 AM [facility] LAB NRBC 0.0 <1.0 % LAB HEMETOLOGY METHOD 03/20/2024 11:05 AM [facility] LAB NRBC Absolute 0.00 <0.10 K/mcL LAB HEMETOLOGY METHOD 03/20/2024 11:05 AM [facility] LAB Blood Venous blood specimen / Unknown Venipuncture / Unknown 03/20/2024 5:24 AM EST 03/20/2024 10:33 AM EST us Geena Lee MD LAB BLOOD ORDERABLES Fin al Result [facility] LAB [address] [place] [address], documented in this encounter Visit Diagnoses Diagnosis Chronic obstructive pulmonary disease, unspecified (CMS/HCC V24, CMS/HCC V28) documented in this encounter Care Teams Sales Operations Relationship Specialty Start Date End Date Geena Lee MD [address] [phone] PCP - General Family Medicine 03/20/24 documented as of this encounter
--- OUTSIDE RECORDS SUMMARY | 2025-01-13 13:54 | XMS_ITS | Encounter Summary ---
Author Organization [facility] Address [address] [place] [address] Care Team Providers Care Leather Case Finisher Name Role Phone Geena Lee MD Primary Care Provider + Encounter Details Date Type Department Care Team (Late st Contact Info) Description 12/13/2024 Lab Requisition [facility] - Main Lab [address] [place] [address] Geena Lee MD [address] [phone] Essential (primary) hypertension Social History Tobacco Use [...] LAB CHEMISTRY METHOD 12/16/2024 11:12 AM EDT [facility] ([facility]) [facility] Potassium 4.2 3.5 - 5.5 mmol/L LAB CHEMISTRY METHOD 12/16/2024 11:12 AM [facility] LAB Comment:Hemolysis present Chloride 92(L) 96 - 110 mmol/L LAB CHEMISTRY METHOD 12/16/2024 11:12 AM [facility] LAB CO2 25 21 - 32 mmol/L LAB CHEMISTRY METHOD 12/16/2024 11:12 AM [facility] LAB Anion Gap 10 3 - 11 LAB CHEMISTRY METHOD 12/16/2024 11:12 AM [facility] LAB Glucose 60(L) 70 - 100 mg/dL LAB CHEMISTRY METHOD 12/16/2024 11:12 AM [facility] LAB BUN 9 5 - 25 mg/dL LAB CHEMISTRY METHOD 12/16/2024 11:12 AM [facility] LAB Creatinine 0.57(L) 0.70 - 1.30 mg/dL LAB CHEMISTRY METHOD 12/16/2024 11:12 AM [facility] LAB eGFR 106 >=60 mL/min/1. 73m2 LAB CHEMISTRY METHOD 12/16/2024 11:12 AM [facility] LAB Comment:Calculation based on the Chronic Kidney Disease Epidemiology Collaboration (CKD-EPI) equation refit without adjustment for race. BUN/Creatinine Ratio 15.8 LAB CHEMISTRY METHOD 12/16/2024 11:12 AM [facility] LAB Calcium 9.0 8.5 - 10.5 mg/dL LAB CHEMISTRY METHOD 12/16/2024 11:12 AM [facility] LAB AST (SGOT) 24 10 - 42 unit/L LAB CHEMISTRY METHOD 12/16/2024 11:12 AM [facility] LAB Comment:Hemolysis present ALT (SGPT) 16 10 - 60 unit/L LAB CHEMISTRY METHOD 12/16/2024 11:12 AM [facility] LAB Alkaline Phosphatase 84 42 - 121 unit/L LAB CHEMISTRY METHOD 12/16[facility]24 [facility] Total Protein 7.4 6.0 - 8.0 g/dL LAB CHEMISTRY METHOD 12/16/2024 11:12 AM [facility] LAB Albumin 3.5 3.2 - 5.0 g/dL LAB CHEMISTRY METHOD 12/16/2024 11:12 AM [facility] LAB Total Bilirubin 0.6 0.0 - 1.4 mg/dL LAB CHEMISTRY METHOD 12/16/2024 11:12 AM T [facility] LAB Blood Venous blood specimen / Unknown Venipuncture / Unknown 12/16/2024 7:06 AM EDT 12/16/2024 10:18 AM EDT us Geena Lee MD LAB BLOOD ORDERABLES Fin al Result [facility] LAB [address] [place] [address], * (ABNORMAL) Complete blood count (12/16/2024 7:06 AM EDT) WBC 5.6 4.8 - 10.8 K/mcL LAB HEMETOLOGY METHOD 12/16/2024 10:35 AM [facility] LAB RBC 4.50 4.50 - 5.50 M/mcL LAB HEMETOLOGY METHOD 12/16/2024 10:35 AM [facility] LAB Hemoglobin 13.0(L) 13.5 - 17.5 g/dL LAB HEMETOLOGY METHOD 12/16/2024 10:35 AM [facility] LAB Hematocrit 37.3(L) 42.0 - 54.0 % LAB HEMETOLOGY METHOD 12/16/2024 10:35 AM [facility] LAB MCV 82.5 79.0 - 98.0 FL LAB HEMETOLOGY METHOD 12/16/2024 10:35 AM [facility] LAB MCH 28.8 27.0 - 32.0 pcg LAB HEMETOLOGY METHOD 12/16/2024 10:35 AM EDT [facility] LAB MCHC 34.9 32.0 - 37.0 g/dL LAB HEMETOLOGY METHOD 12/16/2024 10:35 AM EDT [facility] LAB RDW 14.9 11.0 - 15.0 % LAB HEMETOLOGY METHOD 12/16/2024 10:35 AM EDT [facility] LAB Platelets 168 130 - 400 K/mcL LAB HEMETOLOGY METHOD 12/16/2024 10:35 AM EDT [facility] LAB MPV 10.3 7.0 - 11.0 FL LAB HEMETOLOGY METHOD 12/16/2024 10:35 AM EDT [facility] LAB NRBC 0.0 <1.0 % LAB HEMETOLOGY METHOD 12/16/2024 10:35 AM EDT [facility] LAB NRBC Absolute 0.00 <0.10 K/mcL LAB HEMETOLOGY METHOD 12/16/2024 10:35 AM EDT [facility] LAB Blood Venous blood specimen / Unknown Venipuncture / Unknown 12/16/2024 7:06 AM EDT 12/16/2024 10:18 AM EDT us Geena Lee MD LAB BLOOD ORDERABLES Fin al Result [facility] [address] [place] [address], documented in this encounter Visit Diagnoses Diagnosis Essential (primary) hypertension Unspecified essential hypertension documented in this encounter Care Teams Leather Case Finisher Relationship Specialty Start Date End Date Geena Lee MD [address] [place] [phone] PCP - General Family Medicine 03/20/24 documented as of this encounter
--- OUTSIDE RECORDS SUMMARY | 2025-01-13 13:54 | XMS_ITS | Encounter Summary ---
Author Organization [facility] Address [address] [place] [address] Care Team Providers Care Communications Specialist Name Role Phone Geena [place] MD Primary Care Provider + Encounter Details Date Type Department Care Team (Late st Contact Info) Description 08/27/2024 Lab Requisition [facility] - Main Lab [address] [place] [address] Geena [place] MD [address] [phone] Other assisted (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 Social History Tobacco Use [...] COUNT Routine 08/27/2024 7:31 AM EDT Other audiovisual librarian (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 VALPROIC ACID LEVEL, TOTAL Routine 08/27/2024 7:31 AM EDT Other assisted (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 COMPREHENSIVE METABOLIC PANEL Routine 08/27/2024 7:31 AM EDT Other audiovisual librarian (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 documented in this encounter Results * Valproic acid level, total (08/27/2024 7:31 AM EDT) [facility] Valproic Acid, Total 73 50 - 100 mcg/mL LAB CHEMISTRY METHOD 08/27/2024 11:27 AM [facility] Blood Venous blood specimen / Unknown Venipuncture / Unknown 08/27/2024 7:31 AM EDT 08/27/2024 9:12 AM EDT us Geena [place] MD LAB BLOOD ORDERABLES Fin al Result [facility] [address] [place] [address], [place] [phone] * (ABNORMAL) Comprehensive metabolic panel (08/27/2024 7:31 AM EDT) [facility] Sodium 129(L) 133 - 145 mmol/L LAB CHEMISTRY METHOD 08/27/2024 11:27 AM [facility] Potassium 4.0 3.5 - 5.5 mmol/L LAB CHEMISTRY METHOD 08/27/2024 11:27 AM [facility] Chloride 93(L) 96 - 110 mmol/L LAB CHEMISTRY METHOD 08/27/2024 11:27 AM [facility] CO2 28 21 - 32 mmol/L LAB CHEMISTRY METHOD 08/27/2024 11:27 AM [facility] Anion Gap 8 3 - 11 LAB CHEMISTRY METHOD 08/27/2024 11:27 AM [facility] Glucose 74 70 - 100 mg/dL LAB CHEMISTRY METHOD 08/27/2024 11:27 AM [facility] BUN 14 5 - 25 mg/dL LAB CHEMISTRY METHOD 08/27/2024 11:27 AM [facility] Creatinine 0.65(L) 0.70 - 1.30 mg/dL LAB CHEMISTRY METHOD 08/27/2024 11:27 AM [facility] eGFR 103 >=60 mL/min/1. 73m2 LAB CHEMISTRY METHOD 08/27/2024 11:27 AM [facility] Comment:Calculation based on the Chronic Kidney Disease Epidemiology Collaboration (CKD-EPI) equation refit without adjustment for race. BUN/Creatinine Ratio 21.5 LAB CHEMISTRY METHOD 08/27/2024 11:27 AM [facility] Calcium 8.7 8.5 - 10.5 mg/dL LAB CHEMISTRY METHOD 08/27/2024 11:27 AM [facility] AST (SGOT) 20 10 - 42 unit/L LAB CHEMISTRY METHOD 08/27/2024 11:27 AM [facility] ALT (SGPT) 13 10 - 60 unit/L LAB CHEMISTRY METHOD 08/27/2024 11:27 AM [facility] Alkaline Phosphatase 92 42 - 121 unit/L LAB CHEMISTRY METHOD 08/27/2024 11:27 AM [facility] Total Protein 7.2 6.0 - 8.0 g/dL LAB CHEMISTRY METHOD 08/27/2024 11:27 AM [facility] Albumin 3.2 3.2 - 5.0 g/dL LAB CHEMISTRY METHOD 08/27/2024 11:27 AM [facility] Total Bilirubin 0.5 0.0 - 1.4 mg/dL LAB CHEMISTRY METHOD 08/27/2024 11:27 AM [facility] Blood Venous blood specimen / Unknown Venipuncture / Unknown 08/27/2024 7:31 AM EDT 08/27/2024 9:12 AM EDT us Geena [place] MD LAB BLOOD ORDERABLES Fin al Result [facility] [address] [place] [address], * (ABNORMAL) Complete blood count (08/27/2024 7:31 AM EDT) WBC 6.5 4.8 - 10.8 K/mcL LAB HEMETOLOGY METHOD 08/27/2024 10:24 AM [facility] RBC 3.90(L) 4.50 - 5.50 M/mcL LAB HEMETOLOGY METHOD 08/27/2024 10:24 AM [facility] Hemoglobin 12.7(L) 13.5 - 17.5 g/dL LAB HEMETOLOGY METHOD 08/27/2024 10:24 AM [facility] Hematocrit 35.8(L) 42.0 - 54.0 % LAB HEMETOLOGY METHOD 08/27/2024 10:24 AM [facility] MCV 91.1 79.0 - 98.0 FL LAB HEMETOLOGY METHOD 08/27/2024 10:24 AM [facility] MCH 32.3(H) 27.0 - 32.0 pcg LAB HEMETOLOGY METHOD 08/27/2024 10:24 AM [facility] MCHC 35.5 32.0 - 37.0 g/dL LAB HEMETOLOGY METHOD 08/27/2024 10:24 AM [facility] RDW 13.2 11.0 - 15.0 % LAB HEMETOLOGY METHOD 08/27/2024 10:24 AM [facility] Platelets 189 130 - 400 K/mcL LAB HEMETOLOGY METHOD 08/27/2024 10:24 AM [facility] MPV 9.5 7.0 - 11.0 FL LAB HEMETOLOGY METHOD 08/27/2024 10:24 AM [facility] NRBC 0.0 <1.0 % LAB HEMETOLOGY METHOD 08/27/2024 10:24 AM [facility] NRBC Absolute 0.00 <0.10 K/mcL LAB HEMETOLOGY METHOD 08/27/2024 10:24 AM EDT [facility] Blood Venous blood specimen / Unknown Venipuncture / Unknown 08/27/2024 7:31 AM EDT 08/27/2024 9:12 AM EDT us Geean [place] MD LAB BLOOD ORDERABLES Fin al Result [facility] [address] [place] [address], documented in this encounter Visit Diagnoses Diagnosis Other assisted (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 documented in this encounter Care Teams Communications Specialist Relationship Specialty Start Date End Date Geena [place] MD [address] [place] [phone] PCP - General Family Medicine 03/20/24 documented as of this encounter
--- OUTSIDE RECORDS SUMMARY | 2025-01-13 13:55 | XMS_ITS | Encounter Summary ---
Author Organization [facility] Address [address] [place] [address] Care Team Providers Care Scrap Collector Name Role Phone Geena [place] MD Primary Care Provider + Encounter Details Date Type Department Care Team (Late st Contact Info) Description 12/05/2024 Lab Requisition [facility] - Main Lab 299 [facility] [place] [address] Geena [place] MD [address] [phone] Urinary tract infection, site not specified Social [...] urine culture tube (12/05/2024 12:00 AM EDT) [facility] Extra Tube Hold for add-ons. 12/05/2024 12:01 PM EDT [facility] Comment:Auto resulted. Urine Urine specimen obtained by clean catch procedure / Unknown 12/05/2024 12/05/2024 10:47 AM EDT us Geena [place] MD LAB URINE ORDERABLES Fin al Result [facility] [address] [place] [address], [place] [phone] * (ABNORMAL) Urinalysis with reflex microscopic and culture (12/05/2024 12:00 AM EDT) [facility] Specific [place] Urine 1.026 1.003 - 1.030 LAB URINALYSIS - AUTOMATED METHOD 12/05/2024 10:54 AM [facility] pH, Urine 6.5 5.0 - 8.0 pH LAB URINALYSIS - AUTOMATED METHOD 12/05/2024 10:54 AM [facility] Leukocytes, Urine Negative Negative LAB URINALYSIS - AUTOMATED METHOD 12/05/2024 10:54 AM [facility] Nitrite, Urine Negative Negative LAB URINALYSIS - AUTOMATED METHOD 12/05/2024 10:54 AM [facility] Protein, Urine Trace <=Trace mg/dL LAB URINALYSIS - AUTOMATED METHOD 12/05/2024 10:54 AM [facility] Glucose, Urine Negative Negative mg/dL LAB URINALYSIS - AUTOMATED METHOD 12/05/2024 10:54 AM [facility] Ketones, Urine Trace(A) Negative mg/dL LAB URINALYSIS - AUTOMATED METHOD 12/05/2024 10:54 AM [facility] Urobilinogen, Urine 1.0 0.2 - 1.0 mg/dL LAB URINALYSIS - AUTOMATED METHOD 12/05/2024 10:54 AM EDT [facility] Bilirubin, Urine Negative Negative LAB URINALYSIS - AUTOMATED METHOD 12/05/2024 10:54 AM EDT [facility] Blood, Urine Negative Negative LAB URINALYSIS - AUTOMATED METHOD 12/05/2024 10:54 AM EDT [facility] Urine Urine specimen obtained by clean catch procedure / Unknown Non-blood Collection / Unknown 12/05/2024 12/05/2024 10:47 AM EDT us Geena [place] MD LAB URINE ORDERABLES Fin al Result [facility]) [facility] [address] [place] [address], [place] [phone] documented in this encounter Visit Diagnoses Diagnosis Urinary tract infection, site not specified documented in this encounter Care Teams Scrap Collector Relationship Specialty Start Date End Date Geena [place] MD [address] [phone] PCP - General Family Medicine 03/20/24 documented as of this encounter
--- OUTSIDE RECORDS SUMMARY | 2025-01-13 13:55 | XMS_ITS | Encounter Summary ---
Author Organization [facility] Address [address] [place] [address] Care Team Providers Care Field Training Agent Name Role Phone Geena [place] MD Primary Care Provider + Encounter Details Date Type Department Care Team (Late st Contact Info) Description 01/08/2025 Lab Requisition [facility] - Main Lab [address] [place] [address] Geena [place] MD [address] [address] Chronic kidney disease, unspecified; Essential [...] Priority Date/Time Associated Diagnosis Comments SODIUM Routine 01/09/2025 5:48 AM EDT Chronic kidney disease, unspecified Essential (primary) hypertension documented in this encounter Results * Sodium (01/09/2025 5:48 AM EDT) Sodium 135 133 - 145 mmol/L LAB CHEMISTRY METHOD 01/09/2025 9:23 AM EDT [facility]) [facility] Blood Venous blood specimen / Unknown Venipuncture / Unknown 01/09/2025 5:48 AM EDT 01/09/2025 8:51 AM EDT us Geena [place] MD LAB BLOOD ORDERABLES Fin al Result [facility] ([facility]) [facility] [address] [place] [address], [place] [phone] documented in this encounter Visit Diagnoses Diagnosis Chronic kidney disease, unspecified Essential (primary) hypertension Unspecified essential hypertension documented in this encounter Care Teams Field Training Agent Relationship Specialty Start Date End Date Geena [place] MD [address] [phone] PCP - General Family Medicine 03/20/24 documented as of this encounter
--- OUTSIDE RECORDS SUMMARY | 2025-01-13 13:55 | XMS_ITS | Encounter Summary ---
Author Organization [facility] Address [address] [place] [address] Care Team Providers Care Micro Computer Specialist Name Role Phone Geena [place] MD Primary Care Provider + Encounter Details Date Type Department Care Team (Late st Contact Info) Description 10/24/[address] [facility] - Main Lab [address] [facility] [place] [place] [address] Geena [place] MD [address] [phone] Other half-way (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; Essential (primary) hypertension Social [...] of this encounter Visit Diagnoses Diagnosis Other half-way (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 Essential (primary) hypertension Unspecified essential hypertension documented in this encounter Care Teams Micro Computer Specialist Relationship Specialty Start Date End Date Geena [place] MD [address] [phone] PCP - General Family Medicine 03/20/24 documented as of this encounter
--- OUTSIDE RECORDS SUMMARY | 2025-01-13 13:55 | XMS_ITS | Encounter Summary ---
Author Organization [facility] Address [address] [place] [address] Care Team Providers Care Data Administrator Name Role Phone Geena [place] MD Primary Care Provider + Encounter Details Date Type Department Care Team (Late st Contact Info) Description 12/20/2024 Lab Requisition [facility] - Main Lab [address] [place] [address] Geena [place] MD [address] [phone] Essential (primary) hypertension Social History Tobacco Use [...] Associated Diagnosis Comments COMPLETE BLOOD COUNT Routine 12/24/2024 10:14 AM EDT Essential (primary) hypertension documented in this encounter Results * (ABNORMAL) Complete blood count (12/24/2024 10:14 AM EDT) WBC 4.6(L) 4.8 - 10.8 K/[facility] LAB HEMETOLOGY METHOD 12/24/2024 3:01 PM EDT [facility] RBC 5.30 4.50 - 5.50 M/[facility] LAB HEMETOLOGY METHOD 12/24/2024 3:01 PM EDT [facility] Hemoglobin 15.6 13.5 - 17.5 g/dL LAB HEMETOLOGY METHOD [facility] Hematocrit 44.4 42.0 - 54.0 % LAB HEMETOLOGY METHOD 12/24/2024 3:01 PM [facility] MCV 83.6 79.0 - 98.0 FL LAB HEMETOLOGY METHOD [facility]/24[facility]2024 [facility] MCH 29.4 27.0 - 32.0 pcg LAB HEMETOLOGY METHOD 12/24/2024 3:01 PM [facility] MCHC 35.1 32.0 - 37.0 g/dL LAB HEMETOLOGY METHOD 12/24/2024 3:01 PM [facility] RDW 15.7(H) 11.0 - 15.0 % LAB HEMETOLOGY METHOD 12/24/2024 3:01 PM [facility] Platelets 50(L) 130 - 400 K/mcL LAB HEMETOLOGY METHOD 12/24/2024 3:01 PM [facility] Comment:reviewed by slide MPRober LAB HEMETOLOGY METHOD 12/24/2024 3:01 PM [facility] Comment:Not Measured NRBC 0.0 <1.0 % LAB HEMETOLOGY METHOD 12/24/2024 3:01 PM [facility] NRBC Absolute 0.00 <0.10 K/mcL LAB HEMETOLOGY METHOD 12/24/2024 3:01 PM [facility] Blood Venous blood specimen / Unknown Venipuncture / Unknown 12/24/2024 10:14 AM EDT 12/24/2024 12:32 PM EDT us Geena [place] MD LAB BLOOD ORDERABLES Fin al Result [facility] H[facility] LAB [address] [place] [address], documented in this encounter Visit Diagnoses Diagnosis Essential (primary) hypertension Unspecified essential hypertension documented in this encounter Care Teams Data Administrator Relationship Specialty Start Date End Date Geena [place] MD [address] [place] [phone] PCP - General Family Medicine 03/20/24 documented as of this encounter
--- OUTSIDE RECORDS SUMMARY | 2025-01-13 13:55 | XMS_ITS | Encounter Summary ---
Author Organization [facility] Address [address] [place] [address] Care Team Providers Care Computer Technology Trainer Name Role Phone Geena [place] MD Primary Care Provider + Encounter Details Date Type Department Care Team (Late st Contact Info) Description 09/27/2024 Lab Requisition [facility] - Main Lab [address] [place] [address] Geena [place] MD [address] [phone] Essential (primary) hypertension Social History Tobacco Use [...] LAB CHEMISTRY METHOD 09/30/2024 12:05 PM EDT [facility] Potassium 4.0 3.5 - 5.5 mmol/L LAB CHEMISTRY METHOD 09/30/2024 12:[address] [facility] Chloride 92(L) 96 - 110 mmol/L LAB CHEMISTRY METHOD 09/30/2024 12:[address] [facility] CO2 25 21 - 32 mmol/L LAB CHEMISTRY METHOD 09/30/2024 12:[address] [facility] Anion Gap 9 3 - 11 LAB CHEMISTRY METHOD 09/30/2024 12:[address] [facility] Glucose 108(H) 70 - 100 mg/dL LAB CHEMISTRY METHOD 09/30/2024 12:[address] [facility] BUN 11 5 - 25 mg/dL LAB CHEMISTRY METHOD 09/30/2024 12:[address] [facility] Creatinine 0.69(L) 0.70 - 1.30 mg/dL LAB CHEMISTRY METHOD 09/30/2024 12:[address] [facility] eGFR 100 >=60 mL/min/1. 73m2 LAB CHEMISTRY METHOD 09/30/2024 12:[address] [facility] Comment:Calculation based on the Chronic Kidney Disease Epidemiology Collaboration (CKD-EPI) equation refit without adjustment for race. BUN/Creatinine Ratio 15.9 LAB CHEMISTRY METHOD 09/30/2024 12:[address] [facility] Calcium 8.5 8.5 - 10.5 mg/dL LAB CHEMISTRY METHOD 09/30/2024 12:[address] [facility] AST (SGOT) 12 10 - 42 unit/L LAB CHEMISTRY METHOD 09/30/2024 12:[address] [facility] ALT (SGPT) 10 10 - 60 unit/L LAB CHEMISTRY METHOD 09/30/2024 12:[address] [facility] Alkaline Phosphatase 79 42 - 121 unit/L LAB CHEMISTRY METHOD 09/30/2024 12:[address] [facility] Total Protein 6.4 6.0 - 8.0 g/dL LAB CHEMISTRY METHOD 09/30/2024 12:05 PM T [facility] Albumin 3.0(L) 3.2 - 5.0 g/dL LAB CHEMISTRY METHOD 09/30/2024 12:[address] [facility] Total Bilirubin 0.8 0.0 - 1.4 mg/dL LAB CHEMISTRY METHOD 09/30/2024 12:05 PM EDT [facility] Blood Venous blood specimen / Unknown Venipuncture / Unknown 09/30/2024 9:00 AM EDT 09/30/2024 11:00 AM EDT us Geena eLe MD LAB BLOOD ORDERABLES Fin al Result [facility] [address] [place] [address], * (ABNORMAL) Complete blood count (09/30/2024 9:00 AM EDT) WBC 6.8 4.8 - 10.8 K/mcL LAB HEMETOLOGY METHOD 09/30/2024 1:[address] [facility] RBC 2.90(L) 4.50 - 5.50 M/mcL LAB HEMETOLOGY METHOD 09/30/2024 1:[address] [facility] Hemoglobin 9.1(L) 13.5 - 17.5 g/dL LAB HEMETOLOGY METHOD 09/30/2024 1:15 PM T [facility] Hematocrit 28.1(L) 42.0 - 54.0 % LAB HEMETOLOGY METHOD 09/30/2024 1:[address] [facility] MCV 96.2 79.0 - 98.0 FL LAB HEMETOLOGY METHOD 09/30/2024 1:[address] [facility] MCH 31.2 27.0 - 32.0 pcg LAB HEMETOLOGY METHOD 09/30/2024 1:15 PM EDT [facility] MCHC 32.4 32.0 - 37.0 g/dL LAB HEMETOLOGY METHOD 09/30/2024 1:15 PM EDT [facility] RDW 16.6(H) 11.0 - 15.0 % LAB HEMETOLOGY METHOD 09/30/2024 1:15 PM EDT [facility] Platelets 260 130 - 400 K/mcL LAB HEMETOLOGY METHOD 09/30/2024 1:15 PM EDT [facility] MPV 8.8 7.0 - 11.0 FL LAB HEMETOLOGY METHOD 09/30/2024 1:15 PM EDT [facility] NRBC 0.0 <1.0 % LAB HEMETOLOGY METHOD 09/30/2024 1:15 PM EDT [facility] NRBC Absolute 0.00 <0.10 K/mcL LAB HEMETOLOGY METHOD 09/30/2024 1:15 PM EDT [facility] Blood Venous blood specimen / Unknown Venipuncture / Unknown 09/30/2024 9:00 AM EDT 09/30/2024 11:00 AM EDT us Geena [place] MD LAB BLOOD ORDERABLES Fin al Result [facility] [address] [place] [address], documented in this encounter Visit Diagnoses Diagnosis Essential (primary) hypertension Unspecified essential hypertension documented in this encounter Care Teams Computer Technology Trainer Relationship Specialty Start Date End Date Geena [place] MD [address] [phone] PCP - General Family Medicine 03/20/24 documented as of this encounter
--- OUTSIDE RECORDS SUMMARY | 2025-01-13 13:55 | XMS_ITS | Encounter Summary ---
Author Organization [facility] Address [address] [place] [address] Care Team Providers Care Nba Player Name Role Phone Geena [place] MD Primary Care Provider + Encounter Details Date Type Department Care Team (Late st Contact Info) Description 09/24/2024 Lab Requisition [facility] - Main Lab 299 [facility] [place] [address] Geena [place] MD [address] [address] Chronic systolic (congestive) heart failure [...] LAB CHEMISTRY METHOD 09/24/2024 11:19 AM EDT [facility] Urine Urine specimen obtained by clean catch procedure / Unknown Non-blood Collection / Unknown 09/23/2024 09/24/2024 9:02 AM EDT Geena [place] MD LAB URINE ORDERABLES Fin al Result Performing Organization Address [facility]/ZIP Co de Phone Number [facility] [address] [place] [address], [place] [phone] * Osmolality, urine (09/23/2024 12:00 AM EDT) Osmolality, Urine 488 300 - 1,300 mOsm/kg LAB CHEMISTRY METHOD 09/24/2024 11:41 AM EDT [facility] Urine Urine specimen obtained by clean catch procedure / Unknown Non-blood Collection / Unknown 09/23/2024 09/24/2024 9:02 AM EDT Geena [place] MD LAB URINE ORDERABLES Fin al Result [facility] [address] [place] [address], [place] [phone] documented in this encounter Visit Diagnoses Diagnosis Chronic systolic (congestive) heart failure (CMS/HCC V24, CMS/HCC V28) 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
--- OUTSIDE RECORDS SUMMARY | 2025-01-13 13:55 | XMS_ITS | Encounter Summary ---
Author Organization [facility] Address [address] [place] [address] Care Team Providers Care Domestic Laundry Worker Name Role Phone Geena [place] MD Primary Care Provider + Encounter Details Date Type Department Care Team (Late st Contact Info) Description 10/04/2024 Lab Requisition [facility] - Main Lab [address] [place] [address] Geena [place] MD [address] [phone] Essential (primary) hypertension Social History Tobacco Use [...] LAB CHEMISTRY METHOD 10/07/2024 11:42 AM EDT [facility] ([facility]) [facility] Potassium 4.0 3.5 - 5.5 mmol/L LAB CHEMISTRY METHOD 10/07/2024 11:42 AM [facility] Chloride 91(L) 96 - 110 mmol/L LAB CHEMISTRY METHOD 10/07/2024 11:42 AM [facility] CO2 27 21 - 32 mmol/L LAB CHEMISTRY METHOD 10/07/2024 11:42 AM [facility] Anion Gap 6 3 - 11 LAB CHEMISTRY METHOD 10/07/2024 11:42 AM [facility] Glucose 88 70 - 100 mg/dL LAB CHEMISTRY METHOD 10/07/2024 11:42 AM [facility] BUN 13 5 - 25 mg/dL LAB CHEMISTRY METHOD 10/07/2024 11:42 AM [facility] Creatinine 0.67(L) 0.70 - 1.30 mg/dL LAB CHEMISTRY METHOD 10/07/2024 11:42 AM [facility] eGFR 101 >=60 mL/min/1. 73m2 LAB CHEMISTRY METHOD 10/07/2024 11:42 AM [facility] Comment:Calculation based on the Chronic Kidney Disease Epidemiology Collaboration (CKD-EPI) equation refit without adjustment for race. BUN/Creatinine Ratio 19.4 LAB CHEMISTRY METHOD 10/07/2024 11:42 AM [facility] Calcium 8.6 8.5 - 10.5 mg/dL LAB CHEMISTRY METHOD 10/07/2024 11:42 AM [facility] AST (SGOT) 11 10 - 42 unit/L LAB CHEMISTRY METHOD 10/07/2024 11:42 AM [facility] ALT (SGPT) 11 10 - 60 unit/L LAB CHEMISTRY METHOD 10/07/2024 11:42 AM [facility] Alkaline Phosphatase 79 42 - 121 unit/L LAB CHEMISTRY METHOD 10/07/2024 11:42 AM [facility] Total Protein 6.7 6.0 - 8.0 g/dL LAB CHEMISTRY METHOD 10/07/2024 11:42 AM T [facility] Albumin 3.2 3.2 - 5.0 g/dL LAB CHEMISTRY METHOD 10/07/2024 11:42 AM EDT [facility] Total Bilirubin 0.6 0.0 - 1.4 mg/dL LAB CHEMISTRY METHOD 10/07/2024 11:42 AM EDT [facility] Blood Venous blood specimen / Unknown Venipuncture / Unknown 10/07/2024 8:24 AM EDT 10/07/2024 10:27 AM EDT us Geena [place] MD LAB BLOOD ORDERABLES Fin al Result [facility] [address] [place] [address], * (ABNORMAL) Complete blood count (10/07/2024 8:24 AM EDT) WBC 4.5(L) 4.8 - 10.8 K/mcL LAB HEMETOLOGY METHOD 10/07/2024 11:09 AM [facility] RBC 3.20(L) 4.50 - 5.50 M/mcL LAB HEMETOLOGY METHOD 10/07/2024 11:09 AM [facility] Hemoglobin 10.0(L) 13.5 - 17.5 g/dL LAB HEMETOLOGY METHOD 10/07/2024 11:09 AM [facility] Hematocrit 30.5(L) 42.0 - 54.0 % LAB HEMETOLOGY METHOD 10/07/2024 11:09 AM [facility] MCV 94.7 79.0 - 98.0 FL LAB HEMETOLOGY METHOD 10/07/2024 11:09 AM [facility] MCH 31.1 27.0 - 32.0 pcg LAB HEMETOLOGY METHOD 10/07/2024 11:09 AM EDT [facility] MCHC 32.8 32.0 - 37.0 g/dL LAB HEMETOLOGY METHOD 10/07/2024 11:09 AM EDT [facility] RDW 15.0 11.0 - 15.0 % LAB HEMETOLOGY METHOD 10/07/2024 11:09 AM EDT [facility] Platelets 217 130 - 400 K/mcL LAB HEMETOLOGY METHOD 10/07/2024 11:09 AM EDT [facility] MPV 9.2 7.0 - 11.0 FL LAB HEMETOLOGY METHOD 10/07/2024 11:09 AM EDT [facility] NRBC 0.0 <1.0 % LAB HEMETOLOGY METHOD 10/07/2024 11:09 AM EDT [facility] NRBC Absolute 0.00 <0.10 K/mcL LAB HEMETOLOGY METHOD 10/07/2024 11:09 AM T [facility] Blood Venous blood specimen / Unknown Venipuncture / Unknown 10/07/2024 8:24 AM EDT 10/07/2024 10:27 AM EDT us Geena [place] MD LAB BLOOD ORDERABLES Fin al Result [facility] [address] [place] [address], documented in this encounter Visit Diagnoses Diagnosis Essential (primary) hypertension Unspecified essential hypertension documented in this encounter Care Teams Domestic Laundry Worker Relationship Specialty Start Date End Date Geena [place] MD [address] [place] [phone] PCP - General Family Medicine 03/20/24 documented as of this encounter
--- OUTSIDE RECORDS SUMMARY | 2025-01-13 13:55 | XMS_ITS | Encounter Summary ---
Author Organization [facility] Address [address] [place] [address] Care Team Providers Care Stenotypist Name Role Phone Geena Lee MD Primary Care Provider + Encounter Details Date Type Department Care Team (Late st Contact Info) Description 09/22/2024 Lab Requisition [facility] - Main Lab [address] [place] [address] Geena Lee MD [address] [phone] Essential (primary) hypertension Social History Tobacco Use [...] LAB CHEMISTRY METHOD 09/23/2024 11:49 AM EDT [facility] ([facility]) [facility] Potassium 4.0 3.5 - 5.5 mmol/L LAB CHEMISTRY METHOD 09/23/2024 11:49 AM [facility] Chloride 93(L) 96 - 110 mmol/L LAB CHEMISTRY METHOD 09/23/2024 11:49 AM [facility] CO2 27 21 - 32 mmol/L LAB CHEMISTRY METHOD 09/23/2024 11:49 AM [facility] Anion Gap 7 3 - 11 LAB CHEMISTRY METHOD 09/23/2024 11:49 AM [facility] Glucose 75 70 - 100 mg/dL LAB CHEMISTRY METHOD 09/23/2024 11:49 AM [facility] BUN 8 5 - 25 mg/dL LAB CHEMISTRY METHOD 09/23/2024 11:49 AM [facility] Creatinine 0.58(L) 0.70 - 1.30 mg/dL LAB CHEMISTRY METHOD 09/23/2024 11:49 AM [facility] eGFR 106 >=60 mL/min/1. 73m2 LAB CHEMISTRY METHOD 09/23/2024 11:49 AM [facility] LAB Comment:Calculation based on the Chronic Kidney Disease Epidemiology Collaboration (CKD-EPI) equation refit without adjustment for race. BUN/Creatinine Ratio 13.8 LAB CHEMISTRY METHOD 09/23/2024 11:49 AM [facility] Calcium 8.5 8.5 - 10.5 mg/dL LAB CHEMISTRY METHOD 09/23/2024 11:49 AM [facility] AST (SGOT) 16 10 - 42 unit/L LAB CHEMISTRY METHOD 09/23/2024 11:49 AM [facility] ALT (SGPT) 14 10 - 60 unit/L LAB CHEMISTRY METHOD 09/23/2024 11:49 AM [facility] Alkaline Phosphatase 79 42 - 121 unit/L LAB CHEMISTRY METHOD 09/23/2024 11:49 AM [facility] Total Protein 6.3 6.0 - 8.0 g/dL LAB CHEMISTRY METHOD 09/23/2024 11:49 AM T [facility] Albumin 2.9(L) 3.2 - 5.0 g/dL LAB CHEMISTRY METHOD 09/23/2024 11:49 AM EDT [facility] Total Bilirubin 0.5 0.0 - 1.4 mg/dL LAB CHEMISTRY METHOD 09/23/2024 11:49 AM EDT [facility] Blood Venous blood specimen / Unknown Venipuncture / Unknown 09/23/2024 7:33 AM EDT 09/23/2024 10:26 AM EDT us Geena Lee MD LAB BLOOD ORDERABLES Fin al Result [facility] [address] [place] [address], * (ABNORMAL) Complete blood count (09/23/2024 7:33 AM EDT) WBC 7.8 4.8 - 10.8 K/mcL LAB HEMETOLOGY METHOD 09/23/2024 11:29 AM [facility] RBC 2.30(L) 4.50 - 5.50 M/mcL LAB HEMETOLOGY METHOD 09/23/2024 11:29 AM [facility] Hemoglobin 7.5(L) 13.5 - 17.5 g/dL LAB HEMETOLOGY METHOD 09/23/2024 11:29 AM [facility] Hematocrit 22.9(L) 42.0 - 54.0 % LAB HEMETOLOGY METHOD 09/23/2024 11:29 AM [facility] MCV 100.0(H) 79.0 - 98.0 FL LAB HEMETOLOGY METHOD 09/23/2024 11:29 AM [facility] MCH 32.8(H) 27.0 - 32.0 pcg LAB HEMETOLOGY METHOD 09/23/2024 11:29 AM EDT [facility] MCHC 32.8 32.0 - 37.0 g/dL LAB HEMETOLOGY METHOD 09/23/2024 11:29 AM EDT [facility] RDW 16.7(H) 11.0 - 15.0 % LAB HEMETOLOGY METHOD 09/23/2024 11:29 AM EDT [facility] Platelets 215 130 - 400 K/mcL LAB HEMETOLOGY METHOD 09/23/2024 11:29 AM EDT [facility] MPV 9.0 7.0 - 11.0 FL LAB HEMETOLOGY METHOD 09/23/2024 11:29 AM EDT [facility] NRBC 0.0 <1.0 % LAB HEMETOLOGY METHOD 09/23/2024 11:29 AM EDT [facility] NRBC Absolute 0.00 <0.10 K/mcL LAB HEMETOLOGY METHOD 09/23/2024 11:29 AM EDT [facility] Blood Venous blood specimen / Unknown Venipuncture / Unknown 09/23/2024 7:33 AM EDT 09/23/2024 10:22 AM EDT us Geena Lee MD LAB BLOOD ORDERABLES Fin al Result [facility] [address] [place] [address], documented in this encounter Visit Diagnoses Diagnosis Essential (primary) hypertension Unspecified essential hypertension documented in this encounter Care Teams Stenotypist Relationship Specialty Start Date End Date Geena Lee MD [address] [phone] PCP - General Family Medicine 03/20/24 documented as of this encounter
--- OUTSIDE RECORDS SUMMARY | 2025-01-13 13:55 | XMS_ITS | Encounter Summary ---
Author Organization [facility] Address [address] [place] [address] Care Team Providers Care Spooler Operator Name Role Phone Geena Lee MD Primary Care Provider + Encounter Details Date Type Department Care Team (Late st Contact Info) Description 10/18/[address] [facility] - Main Lab [address] [place] [address] Geena Lee MD [address] [phone] Essential (primary) hypertension Social History Tobacco Use [...] AM EDT) WBC 5.7 4.8 - 10.8 K/[facility] LAB HEMETOLOGY METHOD 10/21/2024 11:01 AM EDT [facility] RBC 3.80(L) 4.50 - 5.50 M/mcL LAB HEMETOLOGY METHOD 10/21/2024 11:01 AM [facility] Hemoglobin 11.3(L) 13.5 - 17.5 g/dL LAB HEMETOLOGY METHOD 10/21/2024 11:01 AM [facility] Hematocrit 34.2(L) 42.0 - 54.0 % LAB HEMETOLOGY METHOD 10/21/2024 11:01 AM [facility] MCV 90.2 79.0 - 98.0 FL LAB HEMETOLOGY METHOD 10/21/2024 11:01 AM [facility] MCH 29.8 27.0 - 32.0 pcg LAB HEMETOLOGY METHOD 10/21/2024 11:01 AM [facility] MCHC 33.0 32.0 - 37.0 g/dL LAB HEMETOLOGY METHOD 10/21/2024 11:01 AM [facility] RDW 13.9 11.0 - 15.0 % LAB HEMETOLOGY METHOD 10/21/2024 11:01 AM [facility] Platelets 196 130 - 400 K/mcL LAB HEMETOLOGY METHOD 10/21/2024 11:01 AM [facility] MPV 9.7 7.0 - 11.0 FL LAB HEMETOLOGY METHOD 10/21/2024 11:01 AM [facility] NRBC 0.0 <1.0 % LAB HEMETOLOGY METHOD 10/21/2024 11:01 AM [facility] NRBC Absolute 0.00 <0.10 K/mcL LAB HEMETOLOGY METHOD 10/21/2024 11:01 AM [facility] Blood Venous blood specimen / Unknown Venipuncture / Unknown 10/21/2024 8:12 AM EDT 10/21/2024 10:06 AM EDT us Geena Lee MD LAB BLOOD ORDERABLES Fin al Result [facility] [address] [place] [address], [place] [phone] * (ABNORMAL) Comprehensive metabolic panel (10/21/2024 8:12 AM EDT) Sodium 125(L) 133 - 145 mmol/L LAB CHEMISTRY METHOD 10/21/2024 11:24 AM [facility] Potassium 4.0 3.5 - 5.5 mmol/L LAB CHEMISTRY METHOD 10/21/2024 11:24 AM [facility] Chloride 88(L) 96 - 110 mmol/L LAB CHEMISTRY METHOD 10/21/2024 11:24 AM [facility] CO2 28 21 - 32 mmol/L LAB CHEMISTRY METHOD 10/21/2024 11:24 AM [facility] Anion Gap 9 3 - 11 LAB CHEMISTRY METHOD 10/21/2024 11:24 AM [facility] Glucose 70 70 - 100 mg/dL LAB CHEMISTRY METHOD 10/21/2024 11:24 AM [facility] BUN 10 5 - 25 mg/dL LAB CHEMISTRY METHOD 10/21/2024 11:24 AM [facility] Creatinine 0.68(L) 0.70 - 1.30 mg/dL LAB CHEMISTRY METHOD 10/21/2024 11:24 AM [facility] eGFR 101 >=60 mL/min/1. 73m2 LAB CHEMISTRY METHOD 10/21/2024 11:24 AM [facility] Comment:Calculation based on the Chronic Kidney Disease Epidemiology Collaboration (CKD-EPI) equation refit without adjustment for race. BUN/Creatinine Ratio 14.7 LAB CHEMISTRY METHOD 10/21/2024 11:24 AM [facility] Calcium 8.7 8.5 - 10.5 mg/dL LAB CHEMISTRY METHOD 10/21/2024 11:24 AM EDT [facility] AST (SGOT) 19 10 - 42 unit/L LAB CHEMISTRY METHOD 10/21/2024 11:24 AM T [facility] ALT (SGPT) 11 10 - 60 unit/L LAB CHEMISTRY METHOD 10/21/2024 11:24 AM EDT [facility] Alkaline Phosphatase 95 42 - 121 unit/L LAB CHEMISTRY METHOD 10/21/2024 11:24 AM T [facility] Total Protein 7.4 6.0 - 8.0 g/dL LAB CHEMISTRY METHOD 10/21/2024 11:24 AM [facility] Albumin 3.3 3.2 - 5.0 g/dL LAB CHEMISTRY METHOD 10/21/2024 11:24 AM [facility] Total Bilirubin 0.6 0.0 - 1.4 mg/dL LAB CHEMISTRY METHOD 10/21/2024 11:24 AM T [facility] Blood Venous blood specimen / Unknown Venipuncture / Unknown 10/21/2024 8:12 AM EDT 10/21/2024 10:06 AM EDT us Geena Lee MD LAB BLOOD ORDERABLES Fin al Result [facility] [address] [place] [address], documented in this encounter Visit Diagnoses Diagnosis Essential (primary) hypertension Unspecified essential hypertension documented in this encounter Care Teams Spooler Operator Relationship Specialty Start Date End Date Geena Lee MD [address] [place] [phone] PCP - General Family Medicine 03/20/24 documented as of this encounter
--- OUTSIDE RECORDS SUMMARY | 2025-01-13 13:55 | XMS_ITS | Encounter Summary ---
Author Organization [facility] Address [address] [place] [address] Care Team Providers Care Superintendent Gas Distribution Name Role Phone Geena Lee MD Primary Care Provider + Encounter Details Date Type Department Care Team (Late st Contact Info) Description 11/16/2024 Lab Requisition [facility] - Main Lab [address] [place] [address] Geena Lee MD [address] [address] Essential (primary) hypertension Social History [...] AM EDT) WBC 7.1 4.8 - 10.8 K/[facility] LAB HEMETOLOGY METHOD 11/18/2024 12:14 PM EDT [facility] RBC 4.10(L) 4.50 - 5.50 M/mcL LAB HEMETOLOGY METHOD 11/18/2024 12:14 PM [facility] Hemoglobin 11.8(L) 13.5 - 17.5 g/dL LAB HEMETOLOGY METHOD 11/18/2024 12:14 PM [facility] Hematocrit 34.7(L) 42.0 - 54.0 % LAB HEMETOLOGY METHOD 11/18/2024 12:14 PM [facility] MCV 85.3 79.0 - 98.0 FL LAB HEMETOLOGY METHOD 11/18/2024 12:14 PM [facility] MCH 29.0 27.0 - 32.0 pcg LAB HEMETOLOGY METHOD 11/18/2024 12:14 PM [facility] MCHC 34.0 32.0 - 37.0 g/dL LAB HEMETOLOGY METHOD 11/18/2024 12:14 PM [facility] RDW 14.2 11.0 - 15.0 % LAB HEMETOLOGY METHOD 11/18/2024 12:14 PM [facility] Platelets 233 130 - 400 K/mcL LAB HEMETOLOGY METHOD 11/18/2024 12:14 PM [facility] MPV 9.7 7.0 - 11.0 FL LAB HEMETOLOGY METHOD 11/18/2024 12:14 PM [facility] NRBC 0.0 <1.0 % LAB HEMETOLOGY METHOD 11/18/2024 12:14 PM [facility] NRBC Absolute 0.00 <0.10 K/mcL LAB HEMETOLOGY METHOD 11/18/2024 12:14 PM [facility] Blood Venous blood specimen / Unknown Venipuncture / Unknown 11/18/2024 9:20 AM EDT 11/18/2024 10:40 AM EDT us Geena Lee MD LAB BLOOD ORDERABLES Fin al Result [facility] [address] [place] [address], [place] [phone] * (ABNORMAL) Comprehensive metabolic panel (11/18/2024 9:20 AM EDT) Sodium 131(L) 133 - 145 mmol/L LAB CHEMISTRY METHOD 11/18/2024 12:39 PM [facility] Potassium 4.0 3.5 - 5.5 mmol/L LAB CHEMISTRY METHOD 11/18/2024 12:39 PM [facility] Chloride 96 96 - 110 mmol/L LAB CHEMISTRY METHOD 11/18/2024 12:39 PM [facility] CO2 28 21 - 32 mmol/L LAB CHEMISTRY METHOD 11/18/2024 12:39 PM [facility] Anion Gap 7 3 - 11 LAB CHEMISTRY METHOD 11/18/2024 12:39 PM [facility] Glucose 88 70 - 100 mg/dL LAB CHEMISTRY METHOD 11/18/2024 12:39 PM [facility] BUN 19 5 - 25 mg/dL LAB CHEMISTRY METHOD 11/18/2024 12:39 PM [facility] Creatinine 0.75 0.70 - 1.30 mg/dL LAB CHEMISTRY METHOD 11/18/2024 12:39 PM [facility] eGFR 98 >=60 mL/min/1. 73m2 LAB CHEMISTRY METHOD 11/18/2024 12:39 PM [facility] Comment:Calculation based on the Chronic Kidney Disease Epidemiology Collaboration (CKD-EPI) equation refit without adjustment for race. BUN/Creatinine Ratio 25.3 LAB CHEMISTRY METHOD 11/18/2024 12:39 PM [facility] Calcium 9.5 8.5 - 10.5 mg/dL LAB CHEMISTRY METHOD 11/18/2024 12:[address] [facility] AST (SGOT) 17 10 - 42 unit/L LAB CHEMISTRY METHOD 11/18/2024 12:39 PM [facility] ALT (SGPT) 16 10 - 60 unit/L LAB CHEMISTRY METHOD 11/18/2024 12:[address] [facility] Alkaline Phosphatase 85 42 - 121 unit/L LAB CHEMISTRY METHOD 11/18/2024 12:39 PM [facility] Total Protein 7.4 6.0 - 8.0 g/dL LAB CHEMISTRY METHOD 11/18/2024 12:39 PM [facility] Albumin 3.7 3.2 - 5.0 g/dL LAB CHEMISTRY METHOD 11/18/2024 12:39 PM [facility] Total Bilirubin 0.5 0.0 - 1.4 mg/dL LAB CHEMISTRY METHOD 11/18/2024 12:39 PM [facility] Blood Venous blood specimen / Unknown Venipuncture / Unknown 11/18/2024 9:20 AM EDT 11/18/2024 10:40 AM EDT us Geena Lee MD LAB BLOOD ORDERABLES Fin al Result [facility] [address] [place] [address], documented in this encounter Visit Diagnoses Diagnosis Essential (primary) hypertension Unspecified essential hypertension documented in this encounter Care Teams Superintendent Gas Distribution Relationship Specialty Start Date End Date Geena Lee MD [address] [place] [phone] PCP - General Family Medicine 03/20/24 documented as of this encounter
--- OUTSIDE RECORDS SUMMARY | 2025-01-13 13:55 | XMS_ITS | Encounter Summary ---
Author Organization [facility] Address [address] [place] [address] Care Team Providers Care Plant Safety Engineer Name Role Phone Geena Lee MD Primary Care Provider + Encounter Details Date Type Department Care Team (Late st Contact Info) Description 12/07/2024 Lab Requisition [facility] - Main Lab [address] [place] [address] Geena Lee MD [address] [phone] Essential (primary) hypertension Social History Tobacco Use [...] AM EDT) WBC 4.9 4.8 - 10.8 K/[facility] LAB HEMETOLOGY METHOD 12/09/2024 1:51 PM EDT [facility] RBC 4.00(L) 4.50 - 5.50 M/mcL LAB HEMETOLOGY METHOD 12/09/2024 1:[address] [facility] Hemoglobin 11.6(L) 13.5 - 17.5 g/dL LAB HEMETOLOGY METHOD 12/09/2024 1:51 PM [facility] Hematocrit 34.7(L) 42.0 - 54.0 % LAB HEMETOLOGY METHOD 12/09/2024 1:51 PM [facility] MCV 85.9 79.0 - 98.0 FL LAB HEMETOLOGY METHOD 12/09/2024 1:51 PM [facility] MCH 28.7 27.0 - 32.0 pcg LAB HEMETOLOGY METHOD 12/09/2024 1:51 PM [facility] MCHC 33.4 32.0 - 37.0 g/dL LAB HEMETOLOGY METHOD 12/09/2024 1:51 PM [facility] RDW 14.9 11.0 - 15.0 % LAB HEMETOLOGY METHOD 12/09/2024 1:51 PM [facility] Platelets 161 130 - 400 K/mcL LAB HEMETOLOGY METHOD 12/09/2024 1:51 PM [facility] MPV 10.2 7.0 - 11.0 FL LAB HEMETOLOGY METHOD 12/09/2024 1:51 PM [facility] NRBC 0.0 <1.0 % LAB HEMETOLOGY METHOD 12/09/2024 1:51 PM [facility] NRBC Absolute 0.00 <0.10 K/mcL LAB HEMETOLOGY METHOD 12/09/2024 1:51 PM [facility] Blood Venous blood specimen / Unknown Venipuncture / Unknown 12/09/2024 9:07 AM EDT 12/09/2024 10:52 AM EDT us Geena Lee MD LAB BLOOD ORDERABLES Fin al Result [facility] [address] [place] [address], [place] [phone] * (ABNORMAL) Comprehensive metabolic panel (12/09/2024 9:07 AM EDT) Sodium 132(L) 133 - 145 mmol/L LAB CHEMISTRY METHOD 12/09/2024 4:34 PM [facility] Potassium 3.9 3.5 - 5.5 mmol/L LAB CHEMISTRY METHOD 12/09/2024 4:34 PM [facility] Chloride 98 96 - 110 mmol/L LAB CHEMISTRY METHOD 12/09/2024 4:34 PM [facility] CO2 27 21 - 32 mmol/L LAB CHEMISTRY METHOD 12/09/2024 4:34 PM [facility] Anion Gap 7 3 - 11 LAB CHEMISTRY METHOD 12/09/2024 4:34 PM [facility] Glucose 71 70 - 100 mg/dL LAB CHEMISTRY METHOD 12/09/2024 4:34 PM [facility] BUN 11 5 - 25 mg/dL LAB CHEMISTRY METHOD 12/09/2024 4:34 PM [facility] Creatinine 0.42(L) 0.70 - 1.30 mg/dL LAB CHEMISTRY METHOD 12/09/2024 4:34 PM [facility] eGFR 116 >=60 mL/min/1. 73m2 LAB CHEMISTRY METHOD 12/09/2024 4:34 PM [facility] Comment:Calculation based on the Chronic Kidney Disease Epidemiology Collaboration (CKD-EPI) equation refit without adjustment for race. BUN/Creatinine Ratio 26.2 LAB CHEMISTRY METHOD 12/09/2024 4:34 PM [facility] Calcium 9.0 8.5 - 10.5 mg/dL LAB CHEMISTRY METHOD 12/09/2024 4:[address] [facility] AST (SGOT) 15 10 - 42 unit/L LAB CHEMISTRY METHOD 12/09/2024 4:34 PM [facility] ALT (SGPT) 11 10 - 60 unit/L LAB CHEMISTRY METHOD 12/09/2024 4:[address] [facility] Alkaline Phosphatase 72 42 - 121 unit/L LAB CHEMISTRY METHOD 12/09/2024 4:[address] [facility] Total Protein 6.6 6.0 - 8.0 g/dL LAB CHEMISTRY METHOD 12/09/2024 4:34 PM [facility] Albumin 3.2 3.2 - 5.0 g/dL LAB CHEMISTRY METHOD 12/09/2024 4:34 PM [facility] Total Bilirubin 0.5 0.0 - 1.4 mg/dL LAB CHEMISTRY METHOD 12/09/2024 4:[address] [facility] Blood Venous blood specimen / Unknown Venipuncture / Unknown 12/09/2024 9:07 AM EDT 12/09/2024 10:52 AM EDT us Geena Lee MD LAB BLOOD ORDERABLES Fin al Result [facility] [address] [place] [address], documented in this encounter Visit Diagnoses Diagnosis Essential (primary) hypertension Unspecified essential hypertension documented in this encounter Care Teams Plant Safety Engineer Relationship Specialty Start Date End Date Geena Lee MD [address] [place] [phone] PCP - General Family Medicine 03/20/24 documented as of this encounter
--- OUTSIDE RECORDS SUMMARY | 2025-01-13 13:55 | XMS_ITS | Clinical Summary ---
Author Organization [address] Address [address] [place] [address] Phone Care Team Providers Care Shoe Repair Cobbler Name Role Phone Geena Lee MD Primary Care Provider + Encounters Date Type Department Care Team Description 01/12/2025 Lab Requisition [facility] - Main Lab [address] [place] [address] Geena Lee MD Essential (primary) hypertension 01/08/2025 Lab Requisition [facility] - Main Lab [address] [place] [address] Geena Lee MD Chronic kidney disease, unspecified; Essential (primary) hypertension 01/05/2025 Lab Requisition [facility] - Main Lab [address] [place] [address] Geena Lee MD Essential (primary) hypertension 01/01/2025 Lab Requisition [facility] - Main Lab [address] [place] [address] Geena Lee MD Chronic kidney disease, unspecified; Essential (primary) hypertension 12/28/2024 Lab Requisition [facility] - Main Lab [address] [place] [address] Geena Lee MD Essential (primary) hypertension 12/28/2024 Lab Requisition [facility] - Main Lab [address] [place] [address] Geena Lee MD Essential (primary) hypertension 12/25/[address] [facility] Main Lab [address] [place] [address] Geena Lee MD Chronic kidney disease, unspecified; Essential (primary) hypertension 12/20/[address] [facility] Main Lab [address] [place] [address] Geena Lee MD Essential (primary) hypertension 12/19/[address] [facility] Main Lab [address] [place] [address] Geena Lee MD Chronic kidney disease, unspecified; Essential (primary) hypertension 12/18/2024 Lab Requisition [facility] Lab [address] [place] [address] Geena Lee MD Chronic kidney disease, unspecified; Essential (primary) hypertension 12/13/[address] [facility] Main Lab [address] [place] [address] Geena Lee MD Essential (primary) hypertension 12/11/2024 Lab Requisition [facility] Lab [address] [place] [address] Geena Lee MD Chronic kidney disease, unspecified; Essential (primary) hypertension 12/07/2024 Lab Requisition [facility] Lab [address] [place] [address] Geena Lee MD Essential (primary) hypertension 12/05/[address] [facility] Main Lab [address] [place] [address] Geena Lee MD Essential (primary) hypertension 12/05/2024 Lab Requisition [facility] Lab [address] [place] [address] Geena Lee MD Urinary tract infection, site not specified 12/04/[address] [facility] Main Lab [address] [place] [address] Geena Lee MD Chronic kidney disease, unspecified; Essential (primary) hypertension; Hypo-osmolality and hyponatremia 12/03/[address] [facility] Main Lab [address] [place] [address] Geena Lee MD Hypo-osmolality and hyponatremia 11/29/[address] [facility] Main Lab [address] [place] [address] Geena Lee MD Essential (primary) hypertension 11/27/2024 Lab Requisition [facility] Lab [address] [place] [address] Geena Lee MD Chronic kidney disease, unspecified; Essential (primary) hypertension 11/25/2024 Lab Requisition [facility] Lab [address] [place] [address] Geena Lee MD Essential (primary) hypertension 11/25/2024 Lab Requisition [facility] Lab [address] [place] [address] Geena Lee MD 11/24/2024 Lab Requisition [facility] Lab [address] [place] [address] Geena Lee MD Essential (primary) hypertension 11/21/[address] [facility] Main Lab [address] [place] [address] Geena Lee MD Chronic kidney disease, unspecified; Essential (primary) hypertension 11/20/[address] [facility] Main Lab [address] [place] [address] Geena Lee MD Chronic kidney disease, unspecified; Essential (primary) hypertension 11/16/[address] [facility] Main Lab [address] [place] [phone] Geena Lee MD Essential (primary) hypertension 11/14/[address] [facility] Main Lab [address] [place] [phone] Geena Lee MD Syndrome of inappropriate secretion of antidiuretic hormone ([facility] V24) 11/13/[address] [facility] Main Lab [address] [place] [phone] Geena Lee MD Abnormal finding of blood chemistry, unspecified 11/08/2024 Lab Requisition [facility] Lab [address] [place] [phone] Geena Lee MD Essential (primary) hypertension 11/01/2024 Lab Requisition [facility] - Main Lab [address] [place] [phone] Geena Lee MD Essential (primary) hypertension 10/24/2024 Lab Requisition [facility] - Main Lab [address] [place] [phone] Geena Lee MD Other long-term (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; Essential (primary) hypertension 10/18/2024 Lab Requisition [facility] - Main Lab [address] [place] [phone] Geena Lee MD Essential (primary) hypertension 10/14/[address] [facility] Main Lab [address] [place] [phone] Geena Lee MD Essential (primary) hypertension from Last 3 Months Medical History Medical History Date Comments COPD (chronic obstructive pu lmonary disease) ([facility] V24, [facility] V28) DX:COPD (chronic o bstructive pulmonary disease) (HCC) Depression DX:Depression Hyponatremia DX:Hyponatremia HTN (hypertension) DX:HTN (hyper tension) Tobacco abuse DX:Tobacco abuse Stenosis of left internal carotid artery DX:Stenosis of left internal carotid artery Atrial flutter (CMS/HCC V24, CMS/HCC V28) DX:Atrial flutter (HCC) Transient ischemic attack (TIA) DX:Transient ischemic attack (TIA) Pneumonia DX:Pneumonia Mood disorder (CMS/HCC V24) DX:M ood disorder (HCC) Cardiomyopathy (CMS/HCC V24, CMS/HCC V28) DX:Cardiomyopathy (HCC) Dysphagia DX:Dysphagia Pleural effusion [...] 03/23/2022 Cholesterol Screening (Lipid Panel) 08/21/2022 08/21/2017 Depression Screening 04/24/2024 COVID-19 Vaccine (3 - season) 2024 08/04/2020, 07/14/2020 Influenza Vaccine (#1) 2024 , 02/01/2023, 04/28/2016, Additional history exists Hypertension/CHF/CAD Annual BMP Blood Test 01/06/2026 01/13/2025, 01/06/2025, 12/30/2024, Additional history exists DTaP,Tdap,and Td Vaccines (4 [...] 01/13/2025 9:42 AM EDT Essential (primary) hypertension SODIUM Routine 01/09/2025 5:48 AM EDT Chronic kidney disease, unspecified Essential (primary) hypertension COMPLETE BLOOD COUNT Routine 01/06/2025 9:41 AM EDT Essential (primary) hypertension COMPREHENSIVE METABOLIC PANEL Routine 01/06/2025 9:41 AM EDT Essential (primary) hypertension SODIUM Routine 01/02/2025 6:01 AM EDT Chronic kidney disease, unspecified Essential (primary) hypertension COMPLETE BLOOD COUNT Routine 12/30/2024 10:33 AM EDT Essential (primary) hypertension COMPREHENSIVE METABOLIC PANEL Routine 12/30/2024 10:33 AM EDT Essential (primary) hypertension COMPREHENSIVE METABOLIC PANEL Routine 12/26/2024 5:27 AM EDT Chronic kidney disease, unspecified Essential (primary) hypertension SODIUM Routine 12/26/2024 5:27 AM EDT Chronic kidney disease, unspecified Essential (primary) hypertension COMPLETE BLOOD COUNT Routine 12/24/2024 10:14 AM EDT Essential (primary) hypertension SODIUM Routine 12/20/2024 5:33 AM EDT Chronic kidney disease, unspecified Essential [...] 10/15/2024 6:00 AM EDT Essential (primary) hypertension from Last 3 Months Results * (ABNORMAL) Complete blood count (01/13/2025 9:42 AM EDT) Only the most recent of13 resultswithin the time period is included. WBC 5.9 4.8 - 10.8 K/mcL LAB HEMETOLOGY METHOD 01/13/2025 12:16 PM [facility] RBC 4.30(L) 4.50 - 5.50 M/mcL LAB HEMETOLOGY METHOD 01/13/2025 12:16 PM [facility] Hemoglobin 12.4(L) 13.5 - 17.5 g/dL LAB HEMETOLOGY METHOD 01/13/2025 12:16 PM [facility] Hematocrit 37.2(L) 42.0 - 54.0 % LAB HEMETOLOGY METHOD 01/13/2025 12:16 PM [facility] MCV 87.1 79.0 - 98.0 FL LAB HEMETOLOGY METHOD 01/13/2025 12:16 PM EDT [facility] MCH 29.0 27.0 - 32.0 pcg LAB HEMETOLOGY METHOD 01/13/2025 12:16 PM T [facility] MCHC 33.3 32.0 - 37.0 g/dL LAB HEMETOLOGY METHOD 01/13/2025 12:16 PM [facility] RDW 16.4(H) 11.0 - 15.0 % LAB HEMETOLOGY METHOD 01/13/2025 12:16 PM EDT [facility] Platelets 174 130 - 400 K/mcL LAB HEMETOLOGY METHOD 01/13/2025 12:16 PM [facility] MPV 10.6 7.0 - 11.0 FL LAB HEMETOLOGY METHOD 01/13/2025 12:16 PM [facility] NRBC 0.0 <1.0 % LAB HEMETOLOGY METHOD 01/13/2025 12:16 PM [facility] NRBC Absolute 0.00 <0.10 K/mcL LAB HEMETOLOGY METHOD 01/13/2025 12:16 PM [facility] Blood Venous blood specimen / Unknown Venipuncture / Unknown 01/13/2025 9:42 AM EDT 01/13/2025 11:07 AM EDT us Geena Lee MD LAB BLOOD ORDERABLES Fin al Result [facility] [address] [place] [address], * (ABNORMAL) Comprehensive metabolic panel (01/13/2025 9:42 AM EDT) Only the most recent of12 resultswithin the time period is included. Sodium 129(L) 133 - 145 mmol/L LAB CHEMISTRY METHOD 01/13/2025 12:57 PM T [facility] Potassium 4.1 3.5 - 5.5 mmol/L LAB CHEMISTRY METHOD 01/13/2025 12:57 PM [facility] Comment:Hemolysis present Chloride 99 96 - 110 mmol/L LAB CHEMISTRY METHOD 01/13/2025 12:57 PM [facility] CO2 21 21 - 32 mmol/L LAB CHEMISTRY METHOD 01/13/2025 12:57 PM [facility] Anion Gap 9 3 - 11 LAB CHEMISTRY METHOD 01/13/2025 12:57 PM [facility] Glucose 67(L) 70 - 100 mg/dL LAB CHEMISTRY METHOD 01/13/2025 12:57 PM [facility] BUN 12 5 - 25 mg/dL LAB CHEMISTRY METHOD 01/13/2025 12:57 PM [facility] Creatinine 0.54(L) 0.70 - 1.30 mg/dL LAB CHEMISTRY METHOD 01/13/2025 12:57 PM [facility] eGFR 108 >=60 mL/min/1. 73m2 LAB CHEMISTRY METHOD 01/13/2025 12:57 PM [facility] Comment:Calculation based on the Chronic Kidney Disease Epidemiology Collaboration (CKD-EPI) equation refit without adjustment for race. BUN/Creatinine Ratio 22.2 LAB CHEMISTRY METHOD 01/13/2025 12:57 PM [facility] Calcium 8.7 8.5 - 10.5 mg/dL LAB CHEMISTRY METHOD 01/13/2025 12:57 PM [facility] AST (SGOT) 31 10 - 42 unit/L LAB CHEMISTRY METHOD 01/13/2025 12:57 PM [facility] ALT (SGPT) 12 10 - 60 unit/L LAB CHEMISTRY METHOD 01/13/2025 12:57 PM [facility] Alkaline Phosphatase 89 42 - 121 unit/L LAB CHEMISTRY METHOD 01/13/2025 12:57 PM [facility] Total Protein 7.1 6.0 - 8.0 g/dL LAB CHEMISTRY METHOD 01/13/2025 12:57 PM EDT [facility] Albumin 3.2 3.2 - 5.0 g/dL LAB CHEMISTRY METHOD 01/13/2025 12:57 PM EDT [facility] Total Bilirubin 0.5 0.0 - 1.4 mg/dL LAB CHEMISTRY METHOD 01/13/2025 12:57 PM EDT [facility] Blood Venous blood specimen / Unknown Venipuncture / Unknown 01/13/2025 9:42 AM EDT 01/13/2025 12:05 PM EDT Geena Lee MD LAB BLOOD ORDERABLES Fin al Result Performing Organization Address City/[facility]/ZIP Co de Phone Number [facility] [address] [place] [address], [place] [phone] * Sodium (01/09/2025 5:48 AM EDT) Only the most recent of10 resultswithin the time period is included. Sodium 135 133 - 145 mmol/L LAB CHEMISTRY METHOD 01/09/2025 9:23 AM EDT [facility] Blood Venous blood specimen / Unknown Venipuncture / Unknown 01/09/2025 5:48 AM EDT 01/09/2025 8:51 AM EDT Geena Lee MD LAB BLOOD ORDERABLES Fin al Result [facility] [address] [place] [address], [place] [phone] * (ABNORMAL) Basic metabolic panel (12/05/2024 6:08 AM EDT) Only the most recent of2 resultswithin the time period is included. Sodium 131(L) 133 - 145 mmol/L LAB CHEMISTRY METHOD 12/05/2024 11:01 AM [facility] Potassium 4.8 3.5 - 5.5 mmol/L LAB CHEMISTRY METHOD 12/05/2024 11:01 AM [facility] Comment:Hemolysis present Chloride 98 96 - 110 mmol/L LAB CHEMISTRY METHOD 12/05/2024 11:01 AM [facility] CO2 24 21 - 32 mmol/L LAB CHEMISTRY METHOD 12/05/2024 11:01 AM [facility] Anion Gap 9 3 - 11 LAB CHEMISTRY METHOD 12/05/2024 11:01 AM [facility] Glucose 52(L) 70 - 100 mg/dL LAB CHEMISTRY METHOD 12/05/2024 11:01 AM [facility] BUN 14 5 - 25 mg/dL LAB CHEMISTRY METHOD 12/05/2024 11:01 AM [facility] Creatinine 0.64(L) 0.70 - 1.30 mg/dL LAB CHEMISTRY METHOD 12/05/2024 11:01 AM [facility] eGFR 102 >=60 mL/min/1. 73m2 LAB CHEMISTRY METHOD 12/05/2024 11:01 AM [facility] Comment:Calculation based on the Chronic Kidney Disease Epidemiology Collaboration (CKD-EPI) equation refit without adjustment for race. BUN/Creatinine Ratio 21.9 LAB CHEMISTRY METHOD 12/05/2024 11:01 AM [facility] Calcium 9.2 8.5 - 10.5 mg/dL LAB CHEMISTRY METHOD 12/05/2024 11:01 AM [facility] Blood Venous blood specimen / Unknown Venipuncture / Unknown 12/05/2024 6:08 AM EDT 12/05/2024 9:30 AM EDT us Geena Lee MD LAB BLOOD ORDERABLES Fin al Result [facility] [address] [place] [address], [place] [phone] * (ABNORMAL) Urinalysis with reflex microscopic and culture (12/05/2024 12:00 AM EDT) Specific Ducor Urine 1.026 1.003 - 1.030 LAB URINALYSIS - AUTOMATED METHOD 12/05/2024 10:54 AM [facility] pH, Urine 6.5 5.0 - 8.0 pH LAB URINALYSIS - AUTOMATED METHOD 12/05/2024 10:54 AM [facility] Leukocytes, Urine Negative Negative LAB URINALYSIS - AUTOMATED METHOD 12/05/2024 10:54 AM [facility] Nitrite, Urine Negative Negative LAB URINALYSIS - AUTOMATED METHOD 12/05/2024 10:54 AM [facility] Protein, Urine Trace <=Trace mg/dL LAB URINALYSIS - AUTOMATED METHOD 12/05/2024 10:54 AM [facility] Glucose, Urine Negative Negative mg/dL LAB URINALYSIS - AUTOMATED METHOD 12/05/2024 10:54 AM [facility] Ketones, Urine Trace(A) Negative mg/dL LAB URINALYSIS - AUTOMATED METHOD 12/05/2024 10:54 AM [facility] Urobilinogen, Urine 1.0 0.2 - 1.0 mg/dL LAB URINALYSIS - AUTOMATED METHOD 12/05/2024 10:54 AM [facility] Bilirubin, Urine Negative Negative LAB URINALYSIS - AUTOMATED METHOD 12/05/2024 10:54 AM [facility] Blood, Urine Negative Negative LAB URINALYSIS - AUTOMATED METHOD 12/05/2024 10:54 AM [facility] Urine Urine specimen obtained by clean catch procedure / Unknown Non-blood Collection / Unknown 12/05/2024 12/05/2024 10:47 AM EDT Geena Lee MD LAB URINE ORDERABLES Fin al Result Performing Organization Address [facility]/ZIP Co de Phone Number [facility] [address] [place] [address], [place] [phone] * Sargent urine culture tube (12/05/2024 12:00 AM EDT) Extra Tube Hold for add-ons. 12/05/2024 12:01 PM EDT [facility] Comment:Auto resulted. Urine Urine specimen obtained by clean catch procedure / Unknown 12/05/2024 12/05/2024 10:47 AM EDT Geena Lee MD LAB URINE ORDERABLES Fin al Result Performing Organization Address [facility] de Phone Number [facility] [address] [place] [address], [place] [phone] from Last 3 Months Insurance [employer] Member Subscriber Plan / Payer (Ef fective 2022-Present) Name:Alberto Levi Relation to Subscriber:Self Name:Alberto Levi Payer ID:[id number] Group ID:[id number] Type:Not on file Address: [place] 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
--- OUTSIDE RECORDS SUMMARY | 2025-01-13 13:55 | XMS_ITS | Encounter Summary ---
Author Organization [facility] Address [address] [place] [address] Care Team Providers Care Box Car Bracer Name Role Phone Geena Lee MD Primary Care Provider + Encounter Details Date Type Department Care Team (Late st Contact Info) Description 09/26/2024 Lab Requisition [facility] - Main Lab [address] [facility] [place] [address] Geena Lee MD [address] [phone] Essential (primary) hypertension; Hyperlipidemia, unspecified Social History [...] ORDERABLES Fin al Result Performing Organization Address City/[facility]/ZIP Co de Phone Number [facility] [address] [place] [address], [place] [phone] * (ABNORMAL) Vitamin B12 (09/26/2024 6:01 AM EDT) Vitamin B-12 942(H) 250 - 900 pcg/mL LAB CHEMISTRY METHOD 09/26/2024 9:36 AM EDT [facility] Blood Venous blood specimen / Unknown Venipuncture / Unknown 09/26/2024 6:01 AM EDT 09/26/2024 7:31 AM EDT Geena Lee MD LAB BLOOD ORDERABLES Fin al Result [facility] [address] [place] [address], [place] [phone] * Ferritin (09/26/2024 6:01 AM EDT) Ferritin 101 26 - 388 ng/mL LAB CHEMISTRY METHOD 09/26/2024 9:36 AM EDT [facility] Blood Venous blood specimen / Unknown Venipuncture / Unknown 09/26/2024 6:01 AM EDT 09/26/2024 7:31 AM EDT Geena Lee MD LAB BLOOD ORDERABLES Fin al Result Performing Organization Address [facility]/ZIP Co de Phone Number [facility] [address] [place] [address], [place] [phone] * (ABNORMAL) Iron and TIBC (09/26/2024 6:01 [...] ORDERABLES Fin al Result Performing Organization Address [facility] de Phone Number [facility] [address] [place] [address], [place] [phone] * (ABNORMAL) Complete blood count (09/26/2024 6:01 AM EDT) WBC 6.7 4.8 - 10.8 K/mcL LAB HEMETOLOGY METHOD 09/26/2024 8:05 AM EDT [facility] RBC 2.40(L) 4.50 - 5.50 M/mcL LAB HEMETOLOGY METHOD 09/26/2024 8:05 AM EDT [facility] Hemoglobin 8.0(L) 13.5 - 17.5 g/dL LAB HEMETOLOGY METHOD 09/26/2024 8:05 AM [facility] Hematocrit 24.2(L) 42.0 - 54.0 % LAB HEMETOLOGY METHOD 09/26/2024 8:05 AM [facility] MCV 100.0(H) 79.0 - 98.0 FL LAB HEMETOLOGY METHOD 09/26/2024 8:05 AM [facility] MCH 33.1(H) 27.0 - 32.0 pcg LAB HEMETOLOGY METHOD 09/26/2024 8:05 AM [facility] MCHC 33.1 32.0 - 37.0 g/dL LAB HEMETOLOGY METHOD 09/26/2024 8:05 AM [facility] RDW 16.8(H) 11.0 - 15.0 % LAB HEMETOLOGY METHOD 09/26/2024 8:05 AM [facility] Platelets 230 130 - 400 K/mcL LAB HEMETOLOGY METHOD 09/26/2024 8:05 AM [facility] MPV 9.1 7.0 - 11.0 FL LAB HEMETOLOGY METHOD 09/26/2024 8:05 AM [facility] NRBC 0.0 <1.0 % LAB HEMETOLOGY METHOD 09/26/2024 8:05 AM [facility] NRBC Absolute 0.00 <0.10 K/mcL LAB HEMETOLOGY METHOD 09/26/2024 8:05 AM [facility] Blood Venous blood specimen / Unknown Venipuncture / Unknown 09/26/2024 6:01 AM EDT 09/26/2024 7:31 AM EDT us Geena Lee MD LAB BLOOD ORDERABLES Fin al Result [facility] [address] [place] [address], documented in this encounter Visit Diagnoses Diagnosis Essential (primary) hypertension Unspecified essential hypertension Hyperlipidemia, unspecified documented in this encounter Care Teams Box Car Bracer Relationship Specialty Start Date End Date Geena Lee MD [address] [address] PCP - General Family Medicine 03/20/24 documented as of this encounter
--- OUTSIDE RECORDS SUMMARY | 2025-01-13 13:55 | XMS_ITS | Encounter Summary ---
Author Organization [facility] Address [address] [place] [address] Care Team Providers Care Intellectual Property Paralegal Name Role Phone Geena Lee MD Primary Care Provider + Encounter Details Date Type Department Care Team (Late st Contact Info) Description 09/26/[address] [facility] - Main Lab [address] [place] [address] Geena Lee MD [address] [phone] Essential (primary) hypertension Social History Tobacco Use [...] LAB CHEMISTRY METHOD 09/27/2024 10:53 AM EDT [facility] ([facility]) [facility] LAB Potassium 4.1 3.5 - 5.5 mmol/L LAB CHEMISTRY METHOD 09/27/2024 10:53 AM [facility] LAB Chloride 94(L) 96 - 110 mmol/L LAB CHEMISTRY METHOD 09/27/2024 10:53 AM [facility] LAB CO2 27 21 - 32 mmol/L LAB CHEMISTRY METHOD 09/27/2024 10:53 AM [facility] LAB Anion Gap 8 3 - 11 LAB CHEMISTRY METHOD 09/27/2024 10:53 AM [facility] LAB Glucose 83 70 - 100 mg/dL LAB CHEMISTRY METHOD 09/27/2024 10:53 AM [facility] BUN 8 5 - 25 mg/dL LAB CHEMISTRY METHOD 09/27/2024 10:53 AM [facility] LAB Creatinine 0.65(L) 0.70 - 1.30 mg/dL LAB CHEMISTRY METHOD 09/27/2024 10:53 AM [facility] LAB eGFR 102 >=60 mL/min/1. 73m2 LAB CHEMISTRY METHOD 09/27/2024 10:53 AM [facility] LAB Comment:Calculation based on the Chronic Kidney Disease Epidemiology Collaboration (CKD-EPI) equation refit without adjustment for race. BUN/Creatinine Ratio 12.3 LAB CHEMISTRY METHOD 09/27/2024 10:53 AM [facility] LAB Calcium 8.2(L) 8.5 - 10.5 mg/dL LAB CHEMISTRY METHOD 09/27/2024 10:53 AM [facility] LAB AST (SGOT) 14 10 - 42 unit/L LAB CHEMISTRY METHOD 09/27/2024 10:53 AM [facility] LAB ALT (SGPT) 11 10 - 60 unit/L LAB CHEMISTRY METHOD 09/27/2024 10:53 AM [facility] LAB Alkaline Phosphatase 72 42 - 121 unit/L LAB CHEMISTRY METHOD 09/27/2024 10:53 AM [facility] Total Protein 6.0 6.0 - 8.0 g/dL LAB CHEMISTRY METHOD 09/27/2024 10:53 AM EDT [facility] LAB Albumin 2.7(L) 3.2 - 5.0 g/dL LAB CHEMISTRY METHOD 09/27/2024 10:53 AM [facility] LAB Total Bilirubin 0.6 0.0 - 1.4 mg/dL LAB CHEMISTRY METHOD 09/27/2024 10:53 AM EDT [facility] LAB Blood Venous blood specimen / Unknown Venipuncture / Unknown 09/27/2024 7:13 AM EDT 09/27/2024 9:34 AM EDT us Geena Lee MD LAB BLOOD ORDERABLES Fin al Result [facility] [address] [place] [address], * (ABNORMAL) Complete blood count (09/27/2024 7:13 AM EDT) WBC 6.0 4.8 - 10.8 K/mcL LAB HEMETOLOGY METHOD 09/27/2024 9:54 AM [facility] RBC 2.40(L) 4.50 - 5.50 M/mcL LAB HEMETOLOGY METHOD 09/27/2024 9:54 AM [facility] Hemoglobin 7.7(L) 13.5 - 17.5 g/dL LAB HEMETOLOGY METHOD 09/27/2024 9:54 AM [facility] LAB Hematocrit 23.8(L) 42.0 - 54.0 % LAB HEMETOLOGY METHOD 09/27/2024 9:54 AM [facility] LAB MCV 97.5 79.0 - 98.0 FL LAB HEMETOLOGY METHOD 09/27/2024 9:54 AM [facility] LAB MCH 31.6 27.0 - 32.0 pcg LAB HEMETOLOGY METHOD 09/27/2024 9:54 AM EDT [facility] LAB MCHC 32.4 32.0 - 37.0 g/dL LAB HEMETOLOGY METHOD 09/27/2024 9:54 AM EDT [facility] LAB RDW 16.8(H) 11.0 - 15.0 % LAB HEMETOLOGY METHOD 09/27/2024 9:54 AM EDT [facility] LAB Platelets 236 130 - 400 K/mcL LAB HEMETOLOGY METHOD 09/27/2024 9:54 AM EDT [facility] LAB MPV 8.9 7.0 - 11.0 FL LAB HEMETOLOGY METHOD 09/27/2024 9:54 AM EDT [facility] LAB NRBC 0.0 <1.0 % LAB HEMETOLOGY METHOD 09/27/2024 9:54 AM EDT [facility] LAB NRBC Absolute 0.00 <0.10 K/mcL LAB HEMETOLOGY METHOD 09/27/2024 9:54 AM EDT [facility] LAB Blood Venous blood specimen / Unknown Venipuncture / Unknown 09/27/2024 7:13 AM EDT 09/27/2024 9:35 AM EDT us Geena Lee MD LAB BLOOD ORDERABLES Fin al Result [facility] [address] [place] [address], documented in this encounter Visit Diagnoses Diagnosis Essential (primary) hypertension Unspecified essential hypertension documented in this encounter Care Teams Intellectual Property Paralegal Relationship Specialty Start Date End Date Geena Lee MD [address] [phone] PCP - General Family Medicine 03/20/24 documented as of this encounter
--- OUTSIDE RECORDS SUMMARY | 2025-01-13 13:55 | XMS_ITS | Encounter Summary ---
Author Organization [facility] Address [address] [place] [address] Care Team Providers Care Welt Butter Hand Name Role Phone Geena Lee MD Primary Care Provider + Encounter Details Date Type Department Care Team (Late st Contact Info) Description 12/05/2024 Lab Requisition [facility] - Main Lab [address] [place] [address] Geena Lee MD [address] [address] Essential (primary) hypertension Social History [...] AM EDT) WBC 5.4 4.8 - 10.8 K/[facility] LAB HEMETOLOGY METHOD 12/06/2024 9:34 AM EDT [facility] LAB RBC 4.10(L) 4.50 - 5.50 M/[facility] LAB HEMETOLOGY METHOD 12/06/2024 9:34 AM [facility] LAB Hemoglobin 11.9(L) 13.5 - 17.5 g/dL LAB HEMETOLOGY METHOD 12/06/2024 9:34 AM [facility] LAB Hematocrit 35.4(L) 42.0 - 54.0 % LAB HEMETOLOGY METHOD 12/06/2024 9:34 AM [facility] LAB MCV 85.5 79.0 - 98.0 FL LAB HEMETOLOGY METHOD [facility] MCH 28.7 27.0 - 32.0 pcg LAB HEMETOLOGY METHOD 12/06/2024 9:34 AM [facility] LAB MCHC 33.6 32.0 - 37.0 g/dL LAB HEMETOLOGY METHOD 12/06/2024 9:34 AM [facility] LAB RDW 14.9 11.0 - 15.0 % LAB HEMETOLOGY METHOD 12/06/2024 9:34 AM [facility] LAB Platelets 181 130 - 400 K/mcL LAB HEMETOLOGY METHOD 12/06/2024 9:34 AM [facility] LAB MPV 9.6 7.0 - 11.0 FL LAB HEMETOLOGY METHOD 12/06/2024 9:34 AM [facility] LAB NRBC 0.0 <1.0 % LAB HEMETOLOGY METHOD 12/06/2024 9:34 AM [facility] LAB NRBC Absolute 0.00 <0.10 K/mcL LAB HEMETOLOGY METHOD 12/06/2024 9:34 AM [facility] LAB Blood Venous blood specimen / Unknown Venipuncture / Unknown 12/06/2024 7:51 AM EDT 12/06/2024 8:40 AM EDT Geena Lee MD LAB BLOOD ORDERABLES Fin al Result [facility] ([facility] LAB [address] [place] [address], documented in this encounter Visit Diagnoses Diagnosis Essential (primary) hypertension Unspecified essential hypertension documented in this encounter Care Teams Welt Butter Hand Relationship Specialty Start Date End Date Geena Lee MD [address] [place] [phone] PCP - General Family Medicine 03/20/24 documented as of this encounter
--- OUTSIDE RECORDS SUMMARY | 2025-01-13 13:55 | XMS_ITS | Encounter Summary ---
Author Organization [facility] Address [address] [place] [address] Care Team Providers Care Equipment Scheduler Name Role Phone Geena Lee MD Primary Care Provider + Encounter Details Date Type Department Care Team (Late st Contact Info) Description 12/19/2024 Lab Requisition [facility] - Main Lab [address] [place] [address] Geena Lee MD [address] [address] Chronic kidney disease, unspecified; Essential [...] Priority Date/Time Associated Diagnosis Comments SODIUM Routine 12/20/2024 5:33 AM EDT Chronic kidney disease, unspecified Essential (primary) hypertension documented in this encounter Results * (ABNORMAL) Sodium (12/20/2024 5:33 AM EDT) Sodium 123(L) 133 - 145 mmol/L LAB CHEMISTRY METHOD 12/20/2024 10:47 AM EDT [facility] ([facility]) [facility] LAB Blood Venous blood specimen / Unknown Venipuncture / Unknown 12/20/2024 5:33 AM EDT 12/20/2024 9:55 AM EDT us Geena Lee MD LAB BLOOD ORDERABLES Fin al Result [facility] ([facility]) [facility] [address] [place] [address], documented in this encounter Visit Diagnoses Diagnosis Chronic kidney disease, unspecified Essential (primary) hypertension Unspecified essential hypertension documented in this encounter Care Teams Equipment Scheduler Relationship Specialty Start Date End Date Geena Lee MD [address] [place] [phone] PCP - General Family Medicine 03/20/24 documented as of this encounter
--- OUTSIDE RECORDS SUMMARY | 2025-01-13 13:55 | XMS_ITS | Encounter Summary ---
Author Organization [facility] Address [address] [place] [address] Care Team Providers Care Rn Recruitment Name Role Phone Geena Lee MD Primary Care Provider + Encounter Details Date Type Department Care Team (Late st Contact Info) Description 12/25/2024 Lab Requisition [facility] - Main Lab [address] [place] [address] Geena Lee MD [address] [address] Chronic kidney disease, unspecified; Essential [...] Priority Date/Time Associated Diagnosis Comments SODIUM Routine 12/26/2024 5:27 AM EDT Chronic kidney disease, unspecified Essential (primary) hypertension COMPREHENSIVE METABOLIC PANEL Routine 12/26/2024 5:27 AM EDT Chronic kidney disease, unspecified Essential (primary) hypertension documented in this encounter Results * (ABNORMAL) Comprehensive metabolic panel (12/26/2024 5:27 AM EDT) Sodium 127(L) 133 - 145 mmol/L LAB CHEMISTRY METHOD 12/26/2024 9:11 AM [facility] LAB Potassium 4.0 3.5 - 5.5 mmol/L LAB CHEMISTRY METHOD 12/26/2024 9:11 AM [facility] LAB Chloride 93(L) 96 - 110 mmol/L LAB CHEMISTRY METHOD 12/26/2024 9:11 AM [facility] CO2 29 21 - 32 mmol/L LAB CHEMISTRY METHOD 12/26/2024 9:11 AM [facility] Anion Gap 5 3 - 11 LAB CHEMISTRY METHOD 12/26/2024 9:11 AM [facility] LAB Glucose 63(L) 70 - 100 mg/dL LAB CHEMISTRY METHOD 12/26/2024 9:11 AM [facility] BUN 12 5 - 25 mg/dL LAB CHEMISTRY METHOD 12/26/2024 9:11 AM [facility] LAB Creatinine 0.52(L) 0.70 - 1.30 mg/dL LAB CHEMISTRY METHOD 12/26/2024 9:11 AM [facility] LAB eGFR 109 >=60 mL/min/1. 73m2 LAB CHEMISTRY METHOD 12/26/2024 9:11 AM [facility] LAB Comment:Calculation based on the Chronic Kidney Disease Epidemiology Collaboration (CKD-EPI) equation refit without adjustment for race. BUN/Creatinine Ratio 23.1 LAB CHEMISTRY METHOD 12/26/2024 9:11 AM [facility] Calcium 8.8 8.5 - 10.5 mg/dL LAB CHEMISTRY METHOD 12/26/2024 9:11 AM [facility] LAB AST (SGOT) 20 10 - 42 unit/L LAB CHEMISTRY METHOD 12/26/2024 9:11 AM [facility] ALT (SGPT) 10 10 - 60 unit/L LAB CHEMISTRY METHOD 12/26/2024 9:11 AM [facility] LAB Alkaline Phosphatase 75 42 - 121 unit/L LAB CHEMISTRY METHOD 12/26/2024 9:11 AM EDT [facility] LAB Total Protein 6.7 6.0 - 8.0 g/dL LAB CHEMISTRY METHOD 12/26/2024 9:11 AM EDT [facility] LAB Albumin 3.2 3.2 - 5.0 g/dL LAB CHEMISTRY METHOD 12/26/2024 9:11 AM EDT [facility] LAB Total Bilirubin 0.5 0.0 - 1.4 mg/dL LAB CHEMISTRY METHOD 12/26/2024 9:11 AM EDT [facility] LAB Blood Venous blood specimen / Unknown 12/26/2024 5:27 AM EDT 12/26/2024 8:15 AM EDT Geena Lee MD LAB BLOOD ORDERABLES Fin al Result Performing Organization Address City/[facility]/ZIP Co de Phone Number [facility] LAB [address] [place] [address], [place] [phone] * (ABNORMAL) Sodium (12/26/2024 5:27 AM EDT) Sodium 127(L) 133 - 145 mmol/L LAB CHEMISTRY METHOD 12/26/2024 9:10 AM EDT [facility] LAB Blood Venous blood specimen / Unknown 12/26/2024 5:27 AM EDT 12/26/2024 8:15 AM EDT Geena Lee MD LAB BLOOD ORDERABLES Fin al Result Performing Organization Address City/[facility]/ZIP Co de Phone Number [facility] [address] [place] [address], [place] [phone] documented in this encounter Visit Diagnoses Diagnosis Chronic kidney disease, unspecified Essential (primary) hypertension Unspecified essential hypertension documented in this encounter Care Teams Rn Recruitment Relationship Specialty Start Date End Date Geena Lee MD [address] [place] [phone] PCP - General Family Medicine 03/20/24 documented as of this encounter
--- OUTSIDE RECORDS SUMMARY | 2025-01-13 13:55 | XMS_ITS | Encounter Summary ---
Author Organization [facility] Address [address] [place] [address] Care Team Providers Care Loom Changeover Operator Name Role Phone Geena Lee MD Primary Care Provider + Encounter Details Date Type Department Care Team (Late st Contact Info) Description 11/01/2024 Lab Requisition [facility] - Main Lab [address] [facility] [place] [phone] Geena Lee MD [address] [address] Essential (primary) hypertension Social History Tobacco Use [...] hypertension documented in this encounter Care Teams Loom Changeover Operator Relationship Specialty Start Date End Date Geena Lee MD [address] [phone] PCP - General Family Medicine 03/20/24 documented as of this encounter
--- OUTSIDE RECORDS SUMMARY | 2025-01-13 13:55 | XMS_ITS | Encounter Summary ---
Author Organization [facility] Address [address] [place] [address] Care Team Providers Care Program Advocate Name Role Phone Geena Lee MD Primary Care Provider + Encounter Details Date Type Department Care Team (Late st Contact Info) Description 10/14/2024 Lab Requisition [facility] - Main Lab [address] [place] [address] Geena Lee MD [address] [phone] Essential (primary) hypertension Social History Tobacco Use [...] LAB CHEMISTRY METHOD 10/15/2024 11:07 AM EDT [facility] ([facility]) [facility] LAB Potassium 4.0 3.5 - 5.5 mmol/L LAB CHEMISTRY METHOD 10/15/2024 11:07 AM [facility] LAB Chloride 93(L) 96 - 110 mmol/L LAB CHEMISTRY METHOD 10/15/2024 11:07 AM [facility] LAB CO2 27 21 - 32 mmol/L LAB CHEMISTRY METHOD 10/15/2024 11:07 AM [facility] LAB Anion Gap 9 3 - 11 LAB CHEMISTRY METHOD 10/15/2024 11:07 AM [facility] LAB Glucose 83 70 - 100 mg/dL LAB CHEMISTRY METHOD 10/15/2024 11:07 AM [facility] LAB BUN 15 5 - 25 mg/dL LAB CHEMISTRY METHOD 10/15/2024 11:07 AM [facility] LAB Creatinine 0.70 0.70 - 1.30 mg/dL LAB CHEMISTRY METHOD 10/15/2024 11:07 AM [facility] LAB eGFR 100 >=60 mL/min/1. 73m2 LAB CHEMISTRY METHOD 10/15/2024 11:07 AM [facility] LAB Comment:Calculation based on the Chronic Kidney Disease Epidemiology Collaboration (CKD-EPI) equation refit without adjustment for race. BUN/Creatinine Ratio 21.4 LAB CHEMISTRY METHOD 10/15/2024 11:07 AM [facility] LAB Calcium 8.2(L) 8.5 - 10.5 mg/dL LAB CHEMISTRY METHOD 10/15/2024 11:07 AM [facility] LAB AST (SGOT) 20 10 - 42 unit/L LAB CHEMISTRY METHOD 10/15/2024 11:07 AM [facility] LAB ALT (SGPT) 10 10 - 60 unit/L LAB CHEMISTRY METHOD 10/15/2024 11:07 AM [facility] LAB Alkaline Phosphatase 89 42 - 121 unit/L LAB CHEMISTRY METHOD 10/15/2024 11:07 AM [facility] LAB Total Protein 6.4 6.0 - 8.0 g/dL LAB CHEMISTRY METHOD 10/15/2024 11:07 AM [facility] Albumin 2.9(L) 3.2 - 5.0 g/dL LAB CHEMISTRY METHOD 10/15/2024 11:07 AM [facility] LAB Total Bilirubin 0.5 0.0 - 1.4 mg/dL LAB CHEMISTRY METHOD 10/15/2024 11:07 AM [facility] LAB Blood Venous blood specimen / Unknown Venipuncture / Unknown 10/15/2024 6:00 AM EDT 10/15/2024 9:30 AM EDT us Geena Lee MD LAB BLOOD ORDERABLES Fin al Result [facility] [address] [place] [address], * (ABNORMAL) Complete blood count (10/15/2024 6:00 AM EDT) WBC 4.7(L) 4.8 - 10.8 K/mcL LAB HEMETOLOGY METHOD 10/15/2024 10:07 AM [facility] LAB RBC 3.40(L) 4.50 - 5.50 M/mcL LAB HEMETOLOGY METHOD 10/15/2024 10:07 AM [facility] Hemoglobin 10.3(L) 13.5 - 17.5 g/dL LAB HEMETOLOGY METHOD 10/15/2024 10:07 AM [facility] LAB Hematocrit 31.0(L) 42.0 - 54.0 % LAB HEMETOLOGY METHOD 10/15/2024 10:07 AM [facility] LAB MCV 91.4 79.0 - 98.0 FL LAB HEMETOLOGY METHOD 10/15/2024 10:07 AM [facility] LAB MCH 30.4 27.0 - 32.0 pcg LAB HEMETOLOGY METHOD 10/15/2024 10:07 AM EDT [facility] LAB MCHC 33.2 32.0 - 37.0 g/dL LAB HEMETOLOGY METHOD 10/15/2024 10:07 AM EDT [facility] LAB RDW 14.2 11.0 - 15.0 % LAB HEMETOLOGY METHOD 10/15/2024 10:07 AM EDT [facility] LAB Platelets 164 130 - 400 K/mcL LAB HEMETOLOGY METHOD 10/15/2024 10:07 AM EDT [facility] LAB MPV 9.7 7.0 - 11.0 FL LAB HEMETOLOGY METHOD 10/15/2024 10:07 AM EDT [facility] LAB NRBC 0.0 <1.0 % LAB HEMETOLOGY METHOD 10/15/2024 10:07 AM EDT [facility] LAB NRBC Absolute 0.00 <0.10 K/mcL LAB HEMETOLOGY METHOD 10/15/2024 10:07 AM T [facility] LAB Blood Venous blood specimen / Unknown Venipuncture / Unknown 10/15/2024 6:00 AM EDT 10/15/2024 9:30 AM EDT us Geena Lee MD LAB BLOOD ORDERABLES Fin al Result [facility] [address] [place] [address], documented in this encounter Visit Diagnoses Diagnosis Essential (primary) hypertension Unspecified essential hypertension documented in this encounter Care Teams Program Advocate Relationship Specialty Start Date End Date Geena Lee MD [address] [place] [phone] PCP - General Family Medicine 03/20/24 documented as of this encounter
--- OUTSIDE RECORDS SUMMARY | 2025-01-13 13:55 | XMS_ITS | Encounter Summary ---
Author Organization [facility] Address [address] [place] [address] Care Team Providers Care Firewall Engineer Name Role Phone Geena Lee MD Primary Care Provider + Encounter Details Date Type Department Care Team (Late st Contact Info) Description 10/11/2024 Lab Requisition [facility] - Main Lab [address] [facility] [place] [phone] Geena Lee MD [address] [address] Essential (primary) hypertension Social History Tobacco Use [...] hypertension documented in this encounter Care Teams Firewall Engineer Relationship Specialty Start Date End Date Geena Lee MD [address] [phone] PCP - General Family Medicine 03/20/24 documented as of this encounter
--- OUTSIDE RECORDS SUMMARY | 2025-01-13 13:55 | XMS_ITS | Encounter Summary ---
Author Organization [facility] Address [address] [place] [address] Care Team Providers Care Electro Optics Engineer Name Role Phone Geena Lee MD Primary Care Provider + Encounter Details Date Type Department Care Team (Late st Contact Info) Description 11/21/2024 Lab Requisition [facility] - Main Lab [address] [place] [address] Geena Lee MD [address] [address] Chronic kidney disease, unspecified; Essential [...] LAB CHEMISTRY METHOD 11/22/2024 12:51 PM EDT [facility] ([facility]) [facility] Blood Venous blood specimen / Unknown Venipuncture / Unknown 11/22/2024 7:17 AM EDT 11/22/2024 10:04 AM EDT us Geena Lee MD LAB BLOOD ORDERABLES Fin al Result [facility]) [facility] [address] [place] [address], documented in this encounter Visit Diagnoses Diagnosis Chronic kidney disease, unspecified Essential (primary) hypertension Unspecified essential hypertension documented in this encounter Care Teams Electro Optics Engineer Relationship Specialty Start Date End Date Geena Lee MD [address] [place] [phone] PCP - General Family Medicine 03/20/24 documented as of this encounter
--- OUTSIDE RECORDS SUMMARY | 2025-01-13 13:55 | XMS_ITS | Encounter Summary ---
Author Organization [facility] Address [address] [place] [address] Care Team Providers Care Clinical Genetics Laboratory Chief Name Role Phone Geena Lee MD Primary Care Provider + Encounter Details Date Type Department Care Team (Late st Contact Info) Description 01/05/2025 Lab Requisition [facility] - Main Lab [address] [place] [address] Geena Lee MD [address] [id number] Essential (primary) hypertension Social History Tobacco Use [...] Associated Diagnosis Comments COMPLETE BLOOD COUNT Routine 01/06/2025 9:41 AM EDT Essential (primary) hypertension COMPREHENSIVE METABOLIC PANEL Routine 01/06/2025 9:41 AM EDT Essential (primary) hypertension documented in this encounter Results * (ABNORMAL) Complete blood count (01/06/2025 9:41 AM EDT) WBC 5.7 4.8 - 10.8 K/[facility] LAB HEMETOLOGY METHOD 01/06/2025 1:21 PM EDT [facility] LAB RBC 4.30(L) 4.50 - 5.50 M/mcL LAB HEMETOLOGY METHOD 01/06/2025 1:21 PM [facility] LAB Hemoglobin 12.3(L) 13.5 - 17.5 g/dL LAB HEMETOLOGY METHOD 01/06/2025 1:21 PM [facility] LAB Hematocrit 37.8(L) 42.0 - 54.0 % LAB HEMETOLOGY METHOD 01/06/2025 1:21 PM [facility] LAB MCV 87.9 79.0 - 98.0 FL LAB HEMETOLOGY METHOD 01/06/2025 1:21 PM [facility] LAB MCH 28.6 27.0 - 32.0 pcg LAB HEMETOLOGY METHOD 01/06/2025 1:21 PM [facility] LAB MCHC 32.5 32.0 - 37.0 g/dL LAB HEMETOLOGY METHOD 01/06/2025 1:21 PM [facility] LAB RDW 16.2(H) 11.0 - 15.0 % LAB HEMETOLOGY METHOD 01/06/2025 1:21 PM [facility] LAB Platelets 153 130 - 400 K/mcL LAB HEMETOLOGY METHOD 01/06/2025 1:21 PM [facility] LAB MPV 9.9 7.0 - 11.0 FL LAB HEMETOLOGY METHOD 01/06/2025 1:21 PM [facility] LAB NRBC 0.0 <1.0 % LAB HEMETOLOGY METHOD 01/06/2025 1:21 PM [facility] LAB NRBC Absolute 0.00 <0.10 K/mcL LAB HEMETOLOGY METHOD 01/06/2025 1:21 PM [facility] LAB Blood Venous blood specimen / Unknown Venipuncture / Unknown 01/06/2025 9:41 AM EDT 01/06/2025 11:44 AM EDT us Geena Lee MD LAB BLOOD ORDERABLES Fin al Result [facility] [address] [place] [address], [place] [phone] * (ABNORMAL) Comprehensive metabolic panel (01/06/2025 9:41 AM EDT) Pathologist [facility] Sodium 134 133 - 145 mmol/L LAB CHEMISTRY METHOD 01/06/2025 2:13 PM [facility] LAB Potassium 3.8 3.5 - 5.5 mmol/L LAB CHEMISTRY METHOD 01/06/2025 2:13 PM [facility] Chloride 100 96 - 110 mmol/L LAB CHEMISTRY METHOD 01/06/2025 2:13 PM [facility] CO2 24 21 - 32 mmol/L LAB CHEMISTRY METHOD 01/06/2025 2:13 PM [facility] Anion Gap 10 3 - 11 LAB CHEMISTRY METHOD 01/06/2025 2:13 PM [facility] Glucose 68(L) 70 - 100 mg/dL LAB CHEMISTRY METHOD 01/06/2025 2:13 PM [facility] BUN 17 5 - 25 mg/dL LAB CHEMISTRY METHOD 01/06/2025 2:13 PM [facility] Creatinine 0.64(L) 0.70 - 1.30 mg/dL LAB CHEMISTRY METHOD 01/06/2025 2:13 PM [facility] LAB eGFR 102 >=60 mL/min/1. 73m2 LAB CHEMISTRY METHOD 01/06/2025 2:13 PM [facility] LAB Comment:Calculation based on the Chronic Kidney Disease Epidemiology Collaboration (CKD-EPI) equation refit without adjustment for race. BUN/Creatinine Ratio 26.6 LAB CHEMISTRY METHOD 01/06/2025 2:13 PM [facility] Calcium 8.7 8.5 - 10.5 mg/dL LAB CHEMISTRY METHOD 01/06/2025 2:13 PM EDT [facility] AST (SGOT) 25 10 - 42 unit/L LAB CHEMISTRY METHOD 01/06/2025 2:13 PM EDT [facility] ALT (SGPT) 11 10 - 60 unit/L LAB CHEMISTRY METHOD 01/06/2025 2:13 PM EDT [facility] Alkaline Phosphatase 84 42 - 121 unit/L LAB CHEMISTRY METHOD 01/06/2025 2:13 PM EDT [facility] Total Protein 7.0 6.0 - 8.0 g/dL LAB CHEMISTRY METHOD 01/06/2025 2:13 PM T [facility] Albumin 3.1(L) 3.2 - 5.0 g/dL LAB CHEMISTRY METHOD 01/06/2025 2:13 PM EDT [facility] Total Bilirubin 0.4 0.0 - 1.4 mg/dL LAB CHEMISTRY METHOD 01/06/2025 2:13 PM EDT [facility] Blood Venous blood specimen / Unknown Venipuncture / Unknown 01/06/2025 9:41 AM EDT 01/06/2025 11:44 AM EDT us Geena Lee MD LAB BLOOD ORDERABLES Fin al Result [facility] [address] [place] [address], [place] [phone] documented in this encounter Visit Diagnoses Diagnosis Essential (primary) hypertension Unspecified essential hypertension documented in this encounter Care Teams Clinical Genetics Laboratory Chief Relationship Specialty Start Date End Date Geena Lee MD [address] [place] [address] PCP - General Family Medicine 03/20/24 documented as of this encounter
--- OUTSIDE RECORDS SUMMARY | 2025-01-13 13:55 | XMS_ITS | Encounter Summary ---
Author Organization [facility] Address [address] [place] [address] Care Team Providers Care Macaroni Press Operator Name Role Phone Geena Lee MD Primary Care Provider + Encounter Details Date Type Department Care Team (Late st Contact Info) Description 01/01/2025 Lab Requisition [facility] - Main Lab [address] [place] [address] Geena Lee MD [address] [address] Chronic kidney disease, unspecified; Essential [...] Priority Date/Time Associated Diagnosis Comments SODIUM Routine 01/02/2025 6:01 AM EDT Chronic kidney disease, unspecified Essential (primary) hypertension documented in this encounter Results * (ABNORMAL) Sodium (01/02/2025 6:01 AM EDT) Sodium 131(L) 133 - 145 mmol/L LAB CHEMISTRY METHOD 01/02/2025 9:30 AM EDT [facility] Blood Venous blood specimen / Unknown Venipuncture / Unknown 01/02/2025 6:01 AM EDT 01/02/2025 7:56 AM EDT us Geena Lee MD LAB BLOOD ORDERABLES Fin al Result [facility] ([facility]) [facility] [address] [place] [address], documented in this encounter Visit Diagnoses Diagnosis Chronic kidney disease, unspecified Essential (primary) hypertension Unspecified essential hypertension documented in this encounter Care Teams Macaroni Press Operator Relationship Specialty Start Date End Date Geena Lee MD [address] [place] [address] PCP - General Family Medicine 03/20/24 documented as of this encounter
--- OUTSIDE RECORDS SUMMARY | 2025-01-13 13:55 | XMS_ITS | Encounter Summary ---
Author Organization [facility] Address [address] [place] [address] Care Team Providers Care After School Program Assistant Name Role Phone Geena Lee MD Primary Care Provider + Encounter Details Date Type Department Care Team (Late st Contact Info) Description 12/28/2024 Lab Requisition [facility] - Main Lab [address] [facility] [place] [phone] Geena Lee MD [address] [address] Essential (primary) hypertension Social History Tobacco Use [...] hypertension documented in this encounter Care Teams After School Program Assistant Relationship Specialty Start Date End Date Geena Lee MD [address] [address] PCP - General Family Medicine 03/20/24 documented as of this encounter
--- OUTSIDE RECORDS SUMMARY | 2025-01-13 13:55 | XMS_ITS | Encounter Summary ---
Author Organization [facility] Address [address] [place] [address] Care Team Providers Care Electrical Systems Design Engineer Name Role Phone Geena Lee MD Primary Care Provider + Encounter Details Date Type Department Care Team (Late st Contact Info) Description 12/28/2024 Lab Requisition [facility] - Main Lab [address] [place] [address] Geena Lee MD [address] [address] Essential (primary) hypertension Social History [...] Associated Diagnosis Comments COMPLETE BLOOD COUNT Routine 12/30/2024 10:33 AM EDT Essential (primary) hypertension COMPREHENSIVE METABOLIC PANEL Routine 12/30/2024 10:33 AM EDT Essential (primary) hypertension documented in this encounter Results * (ABNORMAL) Complete blood count (12/30/2024 10:33 AM EDT) WBC 6.5 4.8 - 10.8 K/[facility] LAB HEMETOLOGY METHOD 12/30/2024 12:40 PM EDT [facility] RBC 4.20(L) 4.50 - 5.50 M/mcL LAB HEMETOLOGY METHOD 12/30/2024 12:[address] [facility] Hemoglobin 12.1(L) 13.5 - 17.5 g/dL LAB HEMETOLOGY METHOD 12/30/2024 12:[address] [facility] Hematocrit 35.8(L) 42.0 - 54.0 % LAB HEMETOLOGY METHOD 12/30/2024 12:[address] [facility] MCV 85.4 79.0 - 98.0 FL LAB HEMETOLOGY METHOD 12/30/2024 12:[address] [facility] MCH 28.9 27.0 - 32.0 pcg LAB HEMETOLOGY METHOD 12/30/2024 12:[address] [facility] MCHC 33.8 32.0 - 37.0 g/dL LAB HEMETOLOGY METHOD 12/30/2024 12:[address] [facility] RDW 15.9(H) 11.0 - 15.0 % LAB HEMETOLOGY METHOD 12/30/2024 12:[address] [facility] Platelets 173 130 - 400 K/mcL LAB HEMETOLOGY METHOD 12/30/2024 12:[address] [facility] MPV 9.9 7.0 - 11.0 FL LAB HEMETOLOGY METHOD 12/30/2024 12:[address] [facility] NRBC 0.0 <1.0 % LAB HEMETOLOGY METHOD 12/30/2024 12:[address] [facility] NRBC Absolute 0.00 <0.10 K/mcL LAB HEMETOLOGY METHOD 12/30/2024 12:[address] [facility] Blood Venous blood specimen / Unknown Venipuncture / Unknown 12/30/2024 10:33 AM EDT 12/30/2024 11:41 AM EDT us Geena Lee MD LAB BLOOD ORDERABLES Fin al Result [facility] [address] [place] [address], [place] [phone] * (ABNORMAL) Comprehensive metabolic panel (12/30/2024 10:33 AM EDT) Pathologist [facility] Sodium 129(L) 133 - 145 mmol/L LAB CHEMISTRY METHOD 12/30/2024 2:[address] [facility] Potassium 4.1 3.5 - 5.5 mmol/L LAB CHEMISTRY METHOD 12/30/2024 2:[address] [facility] Comment:Hemolysis present Chloride 96 96 - 110 mmol/L LAB CHEMISTRY METHOD 12/30/2024 2:[address] [facility] CO2 24 21 - 32 mmol/L LAB CHEMISTRY METHOD 12/30/2024 2:[address] [facility] Anion Gap 9 3 - 11 LAB CHEMISTRY METHOD 12/30/2024 2:[address] [facility] Glucose 70 70 - 100 mg/dL LAB CHEMISTRY METHOD 12/30/2024 2:[address] [facility] BUN 10 5 - 25 mg/dL LAB CHEMISTRY METHOD 12/30/2024 2:[address] [facility] Creatinine 0.65(L) 0.70 - 1.30 mg/dL LAB CHEMISTRY METHOD 12/30/2024 2:[address] [facility] eGFR 102 >=60 mL/min/1. 73m2 LAB CHEMISTRY METHOD 12/30/2024 2:[address] [facility] Comment:Calculation based on the Chronic Kidney Disease Epidemiology Collaboration (CKD-EPI) equation refit without adjustment for race. BUN/Creatinine Ratio 15.4 LAB CHEMISTRY METHOD 12/30/2024 2:[address] [facility] Calcium 8.8 8.5 - 10.5 mg/dL LAB CHEMISTRY METHOD 12/30/2024 2:56 PM EDT [facility] AST (SGOT) 27 10 - 42 unit/L LAB CHEMISTRY METHOD 12/30/2024 2:56 PM EDT [facility] ALT (SGPT) 12 10 - 60 unit/L LAB CHEMISTRY METHOD 12/30/2024 2:56 PM EDT [facility] Alkaline Phosphatase 80 42 - 121 unit/L LAB CHEMISTRY METHOD 12/30/2024 2:56 PM EDT [facility] Total Protein 7.2 6.0 - 8.0 g/dL LAB CHEMISTRY METHOD 12/30/2024 2:56 PM EDT [facility] Albumin 3.3 3.2 - 5.0 g/dL LAB CHEMISTRY METHOD 12/30/2024 2:56 PM EDT [facility] Total Bilirubin 0.6 0.0 - 1.4 mg/dL LAB CHEMISTRY METHOD 12/30/2024 2:56 PM EDT [facility] Blood Venous blood specimen / Unknown Venipuncture / Unknown 12/30/2024 10:33 AM EDT 12/30/2024 12:14 PM EDT us Geena Lee MD LAB BLOOD ORDERABLES Fin al Result [facility] [address] [place] [address], documented in this encounter Visit Diagnoses Diagnosis Essential (primary) hypertension Unspecified essential hypertension documented in this encounter Care Teams Electrical Systems Design Engineer Relationship Specialty Start Date End Date Geena Lee MD [address] [address] PCP - General Family Medicine 03/20/24 documented as of this encounter
--- OUTSIDE RECORDS SUMMARY | 2025-01-13 13:55 | XMS_ITS | Encounter Summary ---
Author Organization [facility] Address [address] [place] [address] Care Team Providers Care Reinstatement Clerk Name Role Phone Geena Lee MD Primary Care Provider + Encounter Details Date Type Department Care Team (Late st Contact Info) Description 11/20/2024 Lab Requisition [facility] - Main Lab [address] [facility] [place] [address] Geena Lee MD [address] [address] Chronic kidney disease, unspecified; Essential (primary) hypertension [...] hypertension documented in this encounter Care Teams Reinstatement Clerk Relationship Specialty Start Date End Date Geena Lee MD [address] [address] PCP - General Family Medicine 03/20/24 documented as of this encounter
== END 2025-01-13 12:01 | disposition home or self-care (01) ==
LOC: HO.HKA 11:14
PROVIDERS: PCP Internal Medicine; Visit Provider Nurse Practitioner Family
DX: E87.1 Hypo-osmolality and hyponatremia (principal)
CPT/HCPCS: 99213

== ENCOUNTER → 2025-01-13 11:13 | Outpatient (BNVA) | payer OTHER, SELFPAY | PROVIDERS: PCP Internal Medicine; Visit Provider Nurse Practitioner Family | DX: E87.1 Hypo-osmolality and hyponatremia (principal) | CPT/HCPCS: 99212 ==

== ENCOUNTER 2025-04-03 13:33 | Outpatient (AMB) | payer OTHER, SELFPAY ==
[2025-04-03 13:57] VITALS: PULSE 70; O2SAT 97
--- NOTE | 2025-04-03 13:57 | MHC.OFFVIS ---
Vital Signs 04/03/25 13:57 Height 5 ft 10 in Pulse 70 Pulse Source Pulse Oximeter Pulse Oximetry (%) 97 Oxygen Delivery Method Room Air Intake Visit Reasons: L hip Replacement Allergies No Known Allergies Allergy (Verified 01/13/25 11:39) HPI HPI L hip Replacement: Details: 69-year-old gentleman, recent 50+ pack-year smoker, previously followed for oxygen-dependent COPD and pulmonary nodules. He has been on Anoro, Spiriva, duo nebs, and albuterol MDI with reasonable control of his symptoms. Patient was initially planned for an orthopedic procedure, but now states that it may be on hold. He is not fully compliant with supplemental oxygen. He denies acute exacerbations. [facility] Medical History (Updated 04/03/25 @ 14:26 by Knvg Escalante MD) COPD (chronic obstructive pulmonary disease) Schizophrenia Atrial flutter Ischemic cardiomyopathy Former smoker SIADH (syndrome of inappropriate ADH production) Paroxysmal atrial fibrillation Mood disorder Heart failure Hypertension Hyperlipidemia TIA (transient ischemic attack) Encounter to establish care Surgical History Status post hip surgery S/P CABG x 3 Social History Household Members: Other Household Members Other:: Niece and her daughter Housing: Other Housing Other:: [facility] Do you presently have visiting nurse or other home services: No Alcohol intake: former Patient Tobacco Use Status: Tobacco use Unknown Tobacco use type: Cigarette Cigarette Packs Per Day: 1 Cigarettes Per Day: 20 Years Smoked: 53 years e-Cigarette/Vaping Use: Never Used Second Hand Smoke Exposure: No Substance Use Type: Crack/Cocaine and Marijuana Advance Directives Date on File: 02/17/23 service: No Current occupational status: retired Sexual orientation: Straight/Heterosexual Cognitive needs: Yes Hearing needs: No Vision needs: Yes (Glasses) Review of Systems Const Denies daytime sleepiness, Denies excessive sweating, Denies fatigue, Denies fever(s), Denies lethargy, Denies malaise, Denies night sweats, Denies snoring and Denies weight loss Eyes Denies blurry vision and Denies itchy eyes ENT Denies nasal congestion, Denies post nasal drip, Denies sinus pain, Denies sinus pressure and Denies other ( Thrush) Card Denies chest pain, Denies pedal edema, Denies dyspnea, Denies orthopnea and Denies paroxysmal nocturnal dyspnea Resp Denies cough, Denies hemoptysis, Denies excessive phlegm production, Denies dyspnea, Denies snoring and Denies wheezing GI Denies abdominal pain and Denies heartburn Musc Denies myalgias, Denies arthralgias and Denies joint swelling Skin/Breast Denies rash Neuro Denies memory loss and Denies seizure-like activity Psych Denies abnormal sleep pattern, Denies anxiety and Denies memory loss Endo Denies excessive sweating, Denies fatigue and Denies heat intolerance Rowdy/Lymph Denies easy bruising Aller/Immun Denies itchy eyes, Denies seasonal rhinorrhea and Denies wheezing Physical Exam Vital Signs: Last Vital Signs Pulse 70 04/03/25 13:57 Pulse Ox 97 04/03/25 13:57 Oxygen Delivery Method Room Air 04/03/25 13:57 Const General: no acute distress and alert Nutritional Appearance: not obese Orientation/consciousness: Other orientation findings ( oriented) HEENT Head: Yes atraumatic Eyes General: appearance normal, both eyes and all related structures Sclerae: sclerae normal EOM: EOMs intact bilaterally Neck Neck: Yes supple Lymphatic: no lymphadenopathy noted Resp Effort & Inspection: normal respiratory effort and no use of accessory muscles Auscultation: clear to auscultation bilaterally Cardio Rate: regular rate Rhythm: regular rhythm Heart sounds: no gallops, no murmurs and no rubs Skin General skin exam: other ( warm) Extrem General: No clubbing, No cyanosis and No edema Assessment & Plan Assessment & Plan (1) COPD (chronic obstructive pulmonary disease): Code(s): J44.9 - Chronic obstructive pulmonary disease, unspecified Category: Medical Plan: Controlled on current regimen of Anoro, duo nebs, and albuterol MDI. Continue current regimen. Stop Spiriva. (2) Supplemental oxygen dependent: Code(s): Z99.81 - Dependence on supplemental oxygen Category: Medical Plan: Continue supplemental oxygen to maintain O2 saturation of 88-93%. (3) Preop pulmonary/respiratory exam: Code(s): Z01.811 - Encounter for preprocedural respiratory examination Category: Medical Plan: At this time patient is at low risk for pulmonary perioperative complications for the proposed orthopedic procedure under general anesthesia. (4) Personal history of nicotine dependence: Code(s): Z87.891 - Personal history of nicotine dependence Category: Medical Plan: Results of lung cancer screening CT chest from November of 2024 reviewed, no worrisome nodules. Continue with yearly screening. Coding Level of Care Code Est Pt Level 4 (44082) Add On Problem Visit Only Diagnoses COPD (chronic obstructive pulmonary disease) J44.9 Supplemental oxygen dependent Z99.81 Preop pulmonary/respiratory exam Z01.811 Personal history of nicotine dependence Z87.891
--- OUTSIDE RECORDS SUMMARY | 2025-04-03 20:42 | XMS_ITS | Encounter Summary ---
Author Organization [facility] Address [address] [place] [address] Care Team Providers Care Lacing Cutter Name Role Phone Geena Lee MD Primary Care Provider + Encounter Details Date Type Department Care Team (Late st Contact Info) Description 04/04/2024 Lab Requisition [facility] - Main Lab [address] [place] [address] Geena Lee MD [address] [address] Chronic obstructive pulmonary disease, unspecified [...] mmol/L LAB CHEMISTRY METHOD 04/04/2024 9:[address] [facility] Potassium 3.9 3.5 - 5.5 mmol/L LAB CHEMISTRY METHOD 04/04/2024 9:[address] [facility] Chloride 95(L) 96 - 110 mmol/L LAB CHEMISTRY METHOD 04/04/2024 9:[address] [facility] CO2 26 21 - 32 mmol/L LAB CHEMISTRY METHOD 04/04/2024 9:[address] [facility] Anion Gap 8 3 - 11 LAB CHEMISTRY METHOD 04/04/2024 9:[address] [facility] Glucose 84 70 - 100 mg/dL LAB CHEMISTRY METHOD 04/04/2024 9:[address] [facility] BUN 12 5 - 25 mg/dL LAB CHEMISTRY METHOD 04/04/2024 9:[address] [facility] Creatinine 0.51(L) 0.70 - 1.30 mg/dL LAB CHEMISTRY METHOD 04/04/2024 9:[address] [facility] eGFR 110 >=60 mL/min/1. 73m2 LAB CHEMISTRY METHOD 04/04/2024 9:[address] [facility] Comment:Calculation based on the Chronic Kidney Disease Epidemiology Collaboration (CKD-EPI) equation refit without adjustment for race. BUN/Creatinine Ratio 23.5 LAB CHEMISTRY METHOD 04/04/2024 9:[address] [facility] Calcium 8.9 8.5 - 10.5 mg/dL LAB CHEMISTRY METHOD 04/04/2024 9:[address] [facility] Blood Venous blood specimen / Unknown Venipuncture / Unknown 04/04/2024 6:35 AM EST 04/04/2024 7:25 AM EST us Geena Lee MD LAB BLOOD ORDERABLES Fin al Result [facility] [address] [place] [address], * (ABNORMAL) Complete blood count (04/04/2024 6:35 AM EST) [facility] WBC 6.2 4.8 - 10.8 K/mcL LAB HEMETOLOGY METHOD 04/04/2024 7:50 AM EST [facility] RBC 3.80(L) 4.50 - 5.50 M/mcL LAB HEMETOLOGY METHOD 04/04/2024 7:[address] [facility] Hemoglobin 12.1(L) 13.5 - 17.5 g/dL LAB HEMETOLOGY METHOD 04/04/2024 7:[address] [facility] Hematocrit 34.5(L) 42.0 - 54.0 % LAB HEMETOLOGY METHOD 04/04/2024 7:[address] [facility] MCV 90.6 79.0 - 98.0 FL LAB HEMETOLOGY METHOD 04/04/2024 7:[address] [facility] MCH 31.8 27.0 - 32.0 pcg LAB HEMETOLOGY METHOD 04/04/2024 7:[address] [facility] MCHC 35.1 32.0 - 37.0 g/dL LAB HEMETOLOGY METHOD 04/04/2024 7:[address] [facility] RDW 13.0 11.0 - 15.0 % LAB HEMETOLOGY METHOD 04/04/2024 7:[address] [facility] Platelets 210 130 - 400 K/mcL LAB HEMETOLOGY METHOD 04/04/2024 7:[address] [facility] MPV 8.8 7.0 - 11.0 FL LAB HEMETOLOGY METHOD 04/04/2024 7:[address] [facility] NRBC 0.0 <1.0 % LAB HEMETOLOGY METHOD 04/04/2024 7:[address] [facility] NRBC Absolute 0.00 <0.10 K/mcL LAB HEMETOLOGY METHOD 04/04/2024 7:50 AM EST [facility] Blood Venous blood specimen / Unknown Venipuncture / Unknown 04/04/2024 6:35 AM EST 04/04/2024 7:25 AM EST us Geena Lee MD LAB BLOOD ORDERABLES Fin al Result [facility] ([facility]) [facility] [address] [place] [address], documented in this encounter Visit Diagnoses Diagnosis Chronic obstructive pulmonary disease, unspecified (CMS/HCC V24, CMS/HCC V28) documented in this encounter Care Teams Lacing Cutter Relationship Specialty Start Date End Date Geena Lee MD [address] [place] [id number] PCP - General Family Medicine 03/20/24 documented as of this encounter
--- OUTSIDE RECORDS SUMMARY | 2025-04-03 20:42 | XMS_ITS | Encounter Summary ---
Author Organization [facility] Address [address] [place] [address] Care Team Providers Care Contracting Officer Name Role Phone Geena Lee MD Primary Care Provider + Encounter Details Date Type Department Care Team (Late st Contact Info) Description 04/16/[address] [facility] - Main Lab [address] [place] [address] Geena Lee MD [address] [phone] Hyperlipidemia, unspecified; Essential (primary) hypertension Social History [...] CHEMISTRY METHOD 04/18/2024 12:51 PM EST [facility] Potassium 4.0 3.5 - 5.5 mmol/L LAB CHEMISTRY METHOD 04/18/2024 12:51 PM EST [facility] LAB Chloride 97 96 - 110 mmol/L LAB CHEMISTRY METHOD 04/18/2024 12:51 PM [facility] LAB CO2 29 21 - 32 mmol/L LAB CHEMISTRY METHOD 04/18/2024 12:51 PM [facility] LAB Anion Gap 6 3 - 11 LAB CHEMISTRY METHOD 04/18/2024 12:51 PM [facility] LAB Glucose 87 70 - 100 mg/dL LAB CHEMISTRY METHOD 04/18/2024 12:51 PM [facility] LAB BUN 15 5 - 25 mg/dL LAB CHEMISTRY METHOD 04/18/2024 12:51 PM [facility] LAB Creatinine 0.84 0.70 - 1.30 mg/dL LAB CHEMISTRY METHOD 04/18/2024 12:51 PM [facility] LAB eGFR 95 >=60 mL/min/1. 73m2 LAB CHEMISTRY METHOD 04/18/2024 12:51 PM [facility] LAB Comment:Calculation based on the Chronic Kidney Disease Epidemiology Collaboration (CKD-EPI) equation refit without adjustment for race. BUN/Creatinine Ratio 17.9 LAB CHEMISTRY METHOD 04/18/2024 12:51 PM [facility] LAB Calcium 8.9 8.5 - 10.5 mg/dL LAB CHEMISTRY METHOD 04/18/2024 12:51 PM [facility] LAB Blood Venous blood specimen / Unknown 04/18/2024 8:22 AM EST 04/18/2024 11:52 AM EST us Geena Lee MD LAB BLOOD ORDERABLES Fin al Result [facility] [address] [place] [address], documented in this encounter Visit Diagnoses Diagnosis Hyperlipidemia, unspecified Essential (primary) hypertension Unspecified essential hypertension documented in this encounter Care Teams Contracting Officer Relationship Specialty Start Date End Date Geena Lee MD [address] [phone] PCP - General Family Medicine 03/20/24 documented as of this encounter
--- OUTSIDE RECORDS SUMMARY | 2025-04-03 20:43 | XMS_ITS | Encounter Summary ---
Author Organization [facility] Address [address] [place] [address] Care Team Providers Care Bunker Worker Name Role Phone Elder, Geena Mane MD Primary Care Provider + Encounter Details Date Type Department Care Team (Late st Contact Info) Description 07/15/2024 Lab Requisition [facility] - Main Lab [address] [place] [phone] Marian Rowe NP [address] [place] [address] Vitamin D deficiency, unspecified Social [...] LAB CHEMISTRY METHOD 07/15/2024 12:01 PM EDT [facility] Blood Venous blood specimen / Unknown Venipuncture / Unknown 07/15/2024 8:38 AM EDT 07/15/2024 10:44 AM EDT us Marian Rowe AMPOULE WASHING MACHINE OPERATOR LAB BLOOD ORDERABLES Final Resul t [facility] ([facility] [address] [place] [address], documented in this encounter Visit Diagnoses Diagnosis Vitamin D deficiency, unspecified documented in this encounter Care Teams Bunker Worker Relationship Specialty Start Date End Date Geena Lee MD [address] [place] [phone] PCP - General Family Medicine 03/20/24 documented as of this encounter
--- OUTSIDE RECORDS SUMMARY | 2025-04-03 20:43 | XMS_ITS | Encounter Summary ---
Author Organization [facility] Address [address] [place] [address] Care Team Providers Care Welding Machine Operator Ultrasonic Name Role Phone Geena Lee MD Primary Care Provider + Encounter Details Date Type Department Care Team (Late st Contact Info) Description 09/06/[address] [facility] - Main Lab [address] [facility] [place] [address] Geena Lee MD [address] [place] [address] [phone] Unspecified atrial fibrillation (CMS/HCC V24, CMS/HCC V28); [...] unspecified documented in this encounter Care Teams Welding Machine Operator Ultrasonic Relationship Specialty Start Date End Date Geena Lee MD [address] [place] [address] [phone] PCP - General Family Medicine 03/20/24 documented as of this encounter
--- OUTSIDE RECORDS SUMMARY | 2025-04-03 20:43 | XMS_ITS | Encounter Summary ---
Author Organization [facility] Address [address] [place] [address] Care Team Providers Care Metal Bench Patternmaker Name Role Phone Elder, Geena Mane MD Primary Care Provider + Encounter Details Date Type Department Care Team (Late st Contact Info) Description 06/25/[address] [facility] - Main Lab [address] [place] [phone] Marian Rowe NP [address] [place] [address] Essential (primary) hypertension; Hypo-osmolality and [...] LAB CHEMISTRY METHOD 06/25/2024 10:22 AM EST [facility] Potassium 4.0 3.5 - 5.5 mmol/L LAB CHEMISTRY METHOD 06/25/2024 10:22 AM [facility] LAB Chloride 91(L) 96 - 110 mmol/L LAB CHEMISTRY METHOD 06/25/2024 10:22 AM [facility] LAB CO2 29 21 - 32 mmol/L LAB CHEMISTRY METHOD 06/25/2024 10:22 AM [facility] LAB Anion Gap 9 3 - 11 LAB CHEMISTRY METHOD 06/25/2024 10:22 AM [facility] LAB Glucose 76 70 - 100 mg/dL LAB CHEMISTRY METHOD 06/25/2024 10:22 AM [facility] BUN 17 5 - 25 mg/dL LAB CHEMISTRY METHOD 06/25/2024 10:22 AM [facility] LAB Creatinine 0.74 0.70 - 1.30 mg/dL LAB CHEMISTRY METHOD 06/25/2024 10:22 AM [facility] LAB eGFR 99 >=60 mL/min/1. 73m2 LAB CHEMISTRY METHOD 06/25/2024 10:22 AM [facility] LAB Comment:Calculation based on the Chronic Kidney Disease Epidemiology Collaboration (CKD-EPI) equation refit without adjustment for race. BUN/Creatinine Ratio 23.0 LAB CHEMISTRY METHOD 06/25/2024 10:22 AM [facility] LAB Calcium 9.6 8.5 - 10.5 mg/dL LAB CHEMISTRY METHOD 06/25/2024 10:22 AM [facility] LAB AST (SGOT) 15 10 - 42 unit/L LAB CHEMISTRY METHOD 06/25/2024 10:22 AM [facility] LAB ALT (SGPT) 11 10 - 60 unit/L LAB CHEMISTRY METHOD 06/25/2024 10:22 AM [facility] LAB Alkaline Phosphatase 106 42 - 121 unit/L LAB CHEMISTRY METHOD 06/25/2024 10:22 AM [facility] LAB Total Protein 8.3(H) 6.0 - 8.0 g/dL LAB CHEMISTRY METHOD 06/25/2024 10:22 AM [facility] Albumin 3.5 3.2 - 5.0 g/dL LAB CHEMISTRY METHOD 06/25/2024 10:22 AM [facility] Total Bilirubin 0.6 0.0 - 1.4 mg/dL LAB CHEMISTRY METHOD 06/25/2024 10:22 AM [facility] LAB Blood Venous blood specimen / Unknown Venipuncture / Unknown 06/25/2024 5:13 AM EST 06/25/2024 9:01 AM EST us Marian Rowe COMPARISON SHOPPER LAB BLOOD ORDERABLES Final Resul t [facility] [address] [place] [address], * (ABNORMAL) Complete blood count (06/25/2024 5:13 AM EST) WBC 7.3 4.8 - 10.8 K/mcL LAB HEMETOLOGY METHOD 06/25/2024 10:02 AM [facility] RBC 4.40(L) 4.50 - 5.50 M/mcL LAB HEMETOLOGY METHOD 06/25/2024 10:02 AM [facility] Hemoglobin 14.0 13.5 - 17.5 g/dL LAB HEMETOLOGY METHOD 06/25/2024 10:02 AM [facility] LAB Hematocrit 39.7(L) 42.0 - 54.0 % LAB HEMETOLOGY METHOD 06/25/2024 10:02 AM [facility] LAB MCV 91.3 79.0 - 98.0 FL LAB HEMETOLOGY METHOD 06/25/2024 10:02 AM [facility] LAB MCH 32.2(H) 27.0 - 32.0 pcg LAB HEMETOLOGY METHOD 06/25/2024 10:02 AM [facility] MCHC 35.3 32.0 - 37.0 g/dL LAB HEMETOLOGY METHOD 06/25/2024 10:[address] [facility] RDW 13.7 11.0 - 15.0 % LAB HEMETOLOGY METHOD 06/25/2024 10:02 AM [facility] Platelets 189 130 - 400 K/mcL LAB HEMETOLOGY METHOD 06/25/2024 10:02 AM [facility] MPV 9.8 7.0 - 11.0 FL LAB HEMETOLOGY METHOD 06/25/2024 10:02 AM [facility] LAB NRBC 0.0 <1.0 % LAB HEMETOLOGY METHOD 06/25/2024 10:02 AM [facility] LAB NRBC Absolute 0.00 <0.10 K/mcL LAB HEMETOLOGY METHOD 06/25/2024 10:02 AM [facility] Blood Venous blood specimen / Unknown Venipuncture / Unknown 06/25/2024 5:13 AM EST 06/25/2024 9:01 AM EST [facility] LAB BLOOD ORDERABLES Final Resul t [facility] [address] [place] [address], documented in this encounter Visit Diagnoses Diagnosis Essential (primary) hypertension Unspecified essential hypertension Hypo-osmolality and hyponatremia documented in this encounter Care Teams Metal Bench Patternmaker Relationship Specialty Start Date End Date Geena Lee MD [address] [place] [phone] PCP - General Family Medicine 03/20/24 documented as of this encounter
--- OUTSIDE RECORDS SUMMARY | 2025-04-03 20:43 | XMS_ITS | Encounter Summary ---
Author Organization [facility] Address [address] [place] [address] Care Team Providers Care Manager Of Housekeeping Name Role Phone Geena Lee MD Primary Care Provider + Encounter Details Date Type Department Care Team (Late st Contact Info) Description 11/25/2024 Lab Requisition [facility] - Main Lab 299 [facility] [employer] [place] [phone] Geena Lee MD [address] [address] Social History Tobacco Use Types Packs/Day Years [...] on filedocumented in this encounter Care Teams Manager Of Housekeeping Relationship Specialty Start Date End Date Geena Lee MD [address] [phone] PCP - General Family Medicine 03/20/24 documented as of this encounter
--- OUTSIDE RECORDS SUMMARY | 2025-04-03 20:43 | XMS_ITS | Encounter Summary ---
Author Organization [facility] Address [address] [place] [address] Care Team Providers Care Coal Yard Supervisor Name Role Phone Geena Lee MD Primary Care Provider + Encounter Details Date Type Department Care Team (Late st Contact Info) Description 12/11/2024 Lab Requisition [facility] - Main Lab [address] [place] [address] Geena Lee MD [address] [address] Chronic kidney disease, unspecified; Essential [...] LAB CHEMISTRY METHOD 12/12/2024 9:46 AM EDT [facility] ([facility]) [facility] Blood Venous blood specimen / Unknown Venipuncture / Unknown 12/12/2024 5:23 AM EDT 12/12/2024 9:12 AM EDT us Geena Lee MD LAB BLOOD ORDERABLES Fin al Result [facility] [address] [place] [address], documented in this encounter Visit Diagnoses Diagnosis Chronic kidney disease, unspecified Essential (primary) hypertension Unspecified essential hypertension documented in this encounter Care Teams Coal Yard Supervisor Relationship Specialty Start Date End Date Geena Lee MD [address] [place] [phone] PCP - General Family Medicine 03/20/24 documented as of this encounter
--- OUTSIDE RECORDS SUMMARY | 2025-04-03 20:43 | XMS_ITS | Encounter Summary ---
Author Organization [facility] Address [address] [place] [address] Care Team Providers Care Multifocal Button Generator Name Role Phone Geena Lee MD Primary Care Provider + Encounter Details Date Type Department Care Team (Late st Contact Info) Description 11/16/2024 Lab Requisition [facility] - Main Lab [address] [place] [address] Geena Lee MD [address] [address] Essential (primary) hypertension Social History [...] AM EDT) WBC 7.1 4.8 - 10.8 K/[facility] LAB HEMETOLOGY METHOD 11/18/2024 12:[address] [facility] RBC 4.10(L) 4.50 - 5.50 M/mcL LAB HEMETOLOGY METHOD 11/18/2024 12:14 PM [facility] LAB Hemoglobin 11.8(L) 13.5 - 17.5 g/dL LAB HEMETOLOGY METHOD 11/18/2024 12:14 PM [facility] LAB Hematocrit 34.7(L) 42.0 - 54.0 % LAB HEMETOLOGY METHOD 11/18/2024 12:14 PM [facility] LAB MCV 85.3 79.0 - 98.0 FL LAB HEMETOLOGY METHOD 11/18/2024 12:14 PM [facility] LAB MCH 29.0 27.0 - 32.0 pcg LAB HEMETOLOGY METHOD 11/18/2024 12:14 PM [facility] LAB MCHC 34.0 32.0 - 37.0 g/dL LAB HEMETOLOGY METHOD 11/18/2024 12:14 PM [facility] LAB RDW 14.2 11.0 - 15.0 % LAB HEMETOLOGY METHOD 11/18/2024 12:14 PM [facility] LAB Platelets 233 130 - 400 K/mcL LAB HEMETOLOGY METHOD 11/18/2024 12:14 PM [facility] LAB MPV 9.7 7.0 - 11.0 FL LAB HEMETOLOGY METHOD 11/18/2024 12:14 PM [facility] LAB NRBC 0.0 <1.0 % LAB HEMETOLOGY METHOD 11/18/2024 12:14 PM [facility] LAB NRBC Absolute 0.00 <0.10 K/mcL LAB HEMETOLOGY METHOD 11/18/2024 12:14 PM [facility] LAB Blood Venous blood specimen / Unknown Venipuncture / Unknown 11/18/2024 9:20 AM EDT 11/18/2024 10:40 AM EDT us Geena Lee MD LAB BLOOD ORDERABLES Fin al Result [facility] [address] [place] [address], [place] [phone] * (ABNORMAL) Comprehensive metabolic panel (11/18/2024 9:20 AM EDT) Sodium 131(L) 133 - 145 mmol/L LAB CHEMISTRY METHOD 11/18/2024 12:39 PM [facility] LAB Potassium 4.0 3.5 - 5.5 mmol/L LAB CHEMISTRY METHOD 11/18/2024 12:39 PM [facility] LAB Chloride 96 96 - 110 mmol/L LAB CHEMISTRY METHOD 11/18/2024 12:39 PM [facility] LAB CO2 28 21 - 32 mmol/L LAB CHEMISTRY METHOD 11/18/2024 12:39 PM [facility] LAB Anion Gap 7 3 - 11 LAB CHEMISTRY METHOD 11/18/2024 12:39 PM [facility] LAB Glucose 88 70 - 100 mg/dL LAB CHEMISTRY METHOD 11/18/2024 12:39 PM [facility] LAB BUN 19 5 - 25 mg/dL LAB CHEMISTRY METHOD 11/18/2024 12:39 PM [facility] LAB Creatinine 0.75 0.70 - 1.30 mg/dL LAB CHEMISTRY METHOD 11/18/2024 12:39 PM [facility] LAB eGFR 98 >=60 mL/min/1. 73m2 LAB CHEMISTRY METHOD 11/18/2024 12:39 PM [facility] LAB Comment:Calculation based on the Chronic Kidney Disease Epidemiology Collaboration (CKD-EPI) equation refit without adjustment for race. BUN/Creatinine Ratio 25.3 LAB CHEMISTRY METHOD 11/18/2024 12:39 PM [facility] LAB Calcium 9.5 8.5 - 10.5 mg/dL LAB CHEMISTRY METHOD 11/18/2024 12:39 PM T [facility] LAB AST (SGOT) 17 10 - 42 unit/L LAB CHEMISTRY METHOD 11/18/2024 12:39 PM [facility] LAB ALT (SGPT) 16 10 - 60 unit/L LAB CHEMISTRY METHOD 11/18/2024 12:39 PM T [facility] LAB Alkaline Phosphatase 85 42 - 121 unit/L LAB CHEMISTRY METHOD 11/18/2024 12:39 PM [facility] LAB Total Protein 7.4 6.0 - 8.0 g/dL LAB CHEMISTRY METHOD 11/18/2024 12:39 PM [facility] LAB Albumin 3.7 3.2 - 5.0 g/dL LAB CHEMISTRY METHOD 11/18/2024 12:39 PM [facility] LAB Total Bilirubin 0.5 0.0 - 1.4 mg/dL LAB CHEMISTRY METHOD 11/18/2024 12:39 PM [facility] LAB Blood Venous blood specimen / Unknown Venipuncture / Unknown 11/18/2024 9:20 AM EDT 11/18/2024 10:40 AM EDT us Geena Lee MD LAB BLOOD ORDERABLES Fin al Result [facility] [address] [place] [address], documented in this encounter Visit Diagnoses Diagnosis Essential (primary) hypertension Unspecified essential hypertension documented in this encounter Care Teams Multifocal Button Generator Relationship Specialty Start Date End Date Geena Lee MD [address] [place] [phone] PCP - General Family Medicine 03/20/24 documented as of this encounter
--- OUTSIDE RECORDS SUMMARY | 2025-04-03 20:43 | XMS_ITS | Encounter Summary ---
Author Organization [facility] Address [address] [place] [address] Care Team Providers Care Coordinating Producer Name Role Phone Geena Lee MD Primary Care Provider + Encounter Details Date Type Department Care Team (Late st Contact Info) Description 12/18/2024 Lab Requisition [facility] - Main Lab [address] [facility] [place] [address] Geena Lee MD [address] [address] Chronic kidney disease, unspecified; Essential (primary) hypertension [...] hypertension documented in this encounter Care Teams Coordinating Producer Relationship Specialty Start Date End Date Geena Lee MD [address] [phone] PCP - General Family Medicine 03/20/24 documented as of this encounter
--- OUTSIDE RECORDS SUMMARY | 2025-04-03 20:43 | XMS_ITS | Encounter Summary ---
Author Organization [facility] Address [address] [place] [address] Care Team Providers Care Housecleaner Name Role Phone Geena Lee MD Primary Care Provider + Encounter Details Date Type Department Care Team (Late st Contact Info) Description 09/15/2024 Lab Requisition [facility] - Main Lab [address] [place] [address] Geena Lee MD [address] [phone] Essential (primary) hypertension Social History Tobacco Use [...] LAB CHEMISTRY METHOD 09/17/2024 1:04 PM EDT [facility] Potassium 4.1 3.5 - 5.5 mmol/L LAB CHEMISTRY METHOD 09/17/2024 1:04 PM [facility] LAB Chloride 90(L) 96 - 110 mmol/L LAB CHEMISTRY METHOD 09/17/2024 1:04 PM [facility] LAB CO2 22 21 - 32 mmol/L LAB CHEMISTRY METHOD 09/17/2024 1:04 PM [facility] LAB Anion Gap 14(H) 3 - 11 LAB CHEMISTRY METHOD 09/17/2024 1:04 PM [facility] LAB Glucose 108(H) 70 - 100 mg/dL LAB CHEMISTRY METHOD 09/17/2024 1:04 PM [facility] LAB BUN 24 5 - 25 mg/dL LAB CHEMISTRY METHOD 09/17/2024 1:04 PM [facility] LAB Creatinine 0.83 0.70 - 1.30 mg/dL LAB CHEMISTRY METHOD 09/17/2024 1:04 PM [facility] LAB eGFR 95 >=60 mL/min/1. 73m2 LAB CHEMISTRY METHOD 09/17/2024 1:04 PM [facility] LAB Comment:Calculation based on the Chronic Kidney Disease Epidemiology Collaboration (CKD-EPI) equation refit without adjustment for race. BUN/Creatinine Ratio 28.9 LAB CHEMISTRY METHOD 09/17/2024 1:04 PM [facility] LAB Calcium 8.7 8.5 - 10.5 mg/dL LAB CHEMISTRY METHOD 09/17/2024 1:04 PM [facility] LAB AST (SGOT) 18 10 - 42 unit/L LAB CHEMISTRY METHOD 09/17/2024 1:04 PM [facility] LAB ALT (SGPT) 12 10 - 60 unit/L LAB CHEMISTRY METHOD 09/17/2024 1:04 PM [facility] LAB Alkaline Phosphatase 66 42 - 121 unit/L LAB CHEMISTRY METHOD 09/17/2024 1:04 PM [facility] LAB Total Protein 6.5 6.0 - 8.0 g/dL LAB CHEMISTRY METHOD 09/17/2024 1:04 PM EDT [facility] LAB Albumin 3.0(L) 3.2 - 5.0 g/dL LAB CHEMISTRY METHOD 09/17/2024 1:04 PM [facility] LAB Total Bilirubin 0.7 0.0 - 1.4 mg/dL LAB CHEMISTRY METHOD 09/17/2024 1:04 PM EDT [facility] LAB Blood Venous blood specimen / Unknown Venipuncture / Unknown 09/17/2024 8:46 AM EDT 09/17/2024 10:34 AM EDT us Geena Lee MD LAB BLOOD ORDERABLES Fin al Result [facility] [address] [place] [address], * (ABNORMAL) Complete blood count (09/17/2024 8:46 AM EDT) WBC 8.7 4.8 - 10.8 K/mcL LAB HEMETOLOGY METHOD 09/17/2024 11:39 AM [facility] LAB RBC 3.10(L) 4.50 - 5.50 M/mcL LAB HEMETOLOGY METHOD 09/17/2024 11:39 AM [facility] LAB Hemoglobin 10.2(L) 13.5 - 17.5 g/dL LAB HEMETOLOGY METHOD 09/17/2024 11:39 AM [facility] LAB Hematocrit 29.1(L) 42.0 - 54.0 % LAB HEMETOLOGY METHOD 09/17/2024 11:39 AM [facility] LAB MCV 93.0 79.0 - 98.0 FL LAB HEMETOLOGY METHOD 09/17/2024 11:39 AM [facility] LAB MCH 32.6(H) 27.0 - 32.0 pcg LAB HEMETOLOGY METHOD 09/17/2024 11:39 AM EDT [facility] LAB MCHC 35.1 32.0 - 37.0 g/dL LAB HEMETOLOGY METHOD 09/17/2024 11:39 AM EDT [facility] LAB RDW 13.4 11.0 - 15.0 % LAB HEMETOLOGY METHOD 09/17/2024 11:39 AM EDT [facility] LAB Platelets 230 130 - 400 K/mcL LAB HEMETOLOGY METHOD 09/17/2024 11:39 AM EDT [facility] LAB MPV 9.2 7.0 - 11.0 FL LAB HEMETOLOGY METHOD 09/17/2024 11:39 AM EDT [facility] LAB NRBC 0.0 <1.0 % LAB HEMETOLOGY METHOD 09/17/2024 11:39 AM EDT [facility] LAB NRBC Absolute 0.00 <0.10 K/mcL LAB HEMETOLOGY METHOD 09/17/2024 11:39 AM EDT [facility] Blood Venous blood specimen / Unknown Venipuncture / Unknown 09/17/2024 8:46 AM EDT 09/17/2024 10:34 AM EDT us Geena Lee MD LAB BLOOD ORDERABLES Fin al Result [facility] [address] [place] [address], documented in this encounter Visit Diagnoses Diagnosis Essential (primary) hypertension Unspecified essential hypertension documented in this encounter Care Teams Housecleaner Relationship Specialty Start Date End Date Geena Lee MD [address] [address] PCP - General Family Medicine 03/20/24 documented as of this encounter
--- OUTSIDE RECORDS SUMMARY | 2025-04-03 20:43 | XMS_ITS | Encounter Summary ---
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 Social History Tobacco Use [...] COUNT Routine 08/27/2024 7:31 AM EDT Other shelter (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 VALPROIC ACID LEVEL, TOTAL Routine 08/27/2024 7:31 AM EDT Other shelter (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 COMPREHENSIVE METABOLIC PANEL Routine 08/27/2024 7:31 AM EDT Other terminal manager (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 documented in this encounter Results * Valproic acid level, total (08/27/2024 7:31 AM EDT) [facility] Valproic Acid, Total 73 50 - 100 mcg/mL LAB CHEMISTRY METHOD 08/27/2024 11:27 AM [facility] Blood Venous blood specimen / Unknown Venipuncture / Unknown 08/27/2024 7:31 AM EDT 08/27/2024 9:12 AM EDT us Geena Lee MD LAB BLOOD ORDERABLES Fin al Result [facility] [address] [place] [address], [place] [phone] * (ABNORMAL) Comprehensive metabolic panel (08/27/2024 7:31 AM EDT) [facility] Sodium 129(L) 133 - 145 mmol/L LAB CHEMISTRY METHOD 08/27/2024 11:27 AM [facility] Potassium 4.0 3.5 - 5.5 mmol/L LAB CHEMISTRY METHOD 08/27/2024 11:27 AM [facility] Chloride 93(L) 96 - 110 mmol/L LAB CHEMISTRY METHOD 08/27/2024 11:27 AM [facility] CO2 28 21 - 32 mmol/L LAB CHEMISTRY METHOD 08/27/2024 11:27 AM [facility] Anion Gap 8 3 - 11 LAB CHEMISTRY METHOD 08/27/2024 11:27 AM [facility] Glucose 74 70 - 100 mg/dL LAB CHEMISTRY METHOD 08/27/2024 11:27 AM [facility] BUN 14 5 - 25 mg/dL LAB CHEMISTRY METHOD 08/27/2024 11:27 AM [facility] Creatinine 0.65(L) 0.70 - 1.30 mg/dL LAB CHEMISTRY METHOD 08/27/2024 11:27 AM [facility] eGFR 103 >=60 mL/min/1. 73m2 LAB CHEMISTRY METHOD 08/27/2024 11:27 AM [facility] Comment:Calculation based on the Chronic Kidney Disease Epidemiology Collaboration (CKD-EPI) equation refit without adjustment for race. BUN/Creatinine Ratio 21.5 LAB CHEMISTRY METHOD 08/27/2024 11:27 AM [facility] Calcium 8.7 8.5 - 10.5 mg/dL LAB CHEMISTRY METHOD 08/27/2024 11:27 AM [facility] AST (SGOT) 20 10 - 42 unit/L LAB CHEMISTRY METHOD 08/27/2024 11:27 AM [facility] ALT (SGPT) 13 10 - 60 unit/L LAB CHEMISTRY METHOD 08/27/2024 11:27 AM [facility] Alkaline Phosphatase 92 42 - 121 unit/L LAB CHEMISTRY METHOD 08/27/2024 11:27 AM [facility] Total Protein 7.2 6.0 - 8.0 g/dL LAB CHEMISTRY METHOD 08/27/2024 11:27 AM [facility] Albumin 3.2 3.2 - 5.0 g/dL LAB CHEMISTRY METHOD 08/27/2024 11:27 AM [facility] Total Bilirubin 0.5 0.0 - 1.4 mg/dL LAB CHEMISTRY METHOD 08/27/2024 11:27 AM [facility] Blood Venous blood specimen / Unknown Venipuncture / Unknown 08/27/2024 7:31 AM EDT 08/27/2024 9:12 AM EDT us Geena Lee MD LAB BLOOD ORDERABLES Fin al Result [facility] [address] [place] [address], * (ABNORMAL) Complete blood count (08/27/2024 7:31 AM EDT) WBC 6.5 4.8 - 10.8 K/mcL LAB HEMETOLOGY METHOD 08/27/2024 10:24 AM [facility] RBC 3.90(L) 4.50 - 5.50 M/mcL LAB HEMETOLOGY METHOD 08/27/2024 10:24 AM [facility] Hemoglobin 12.7(L) 13.5 - 17.5 g/dL LAB HEMETOLOGY METHOD 08/27/2024 10:24 AM [facility] Hematocrit 35.8(L) 42.0 - 54.0 % LAB HEMETOLOGY METHOD 08/27/2024 10:24 AM [facility] MCV 91.1 79.0 - 98.0 FL LAB HEMETOLOGY METHOD 08/27/2024 10:24 AM [facility] MCH 32.3(H) 27.0 - 32.0 pcg LAB HEMETOLOGY METHOD 08/27/2024 10:24 AM [facility] MCHC 35.5 32.0 - 37.0 g/dL LAB HEMETOLOGY METHOD 08/27/2024 10:24 AM [facility] RDW 13.2 11.0 - 15.0 % LAB HEMETOLOGY METHOD 08/27/2024 10:24 AM [facility] Platelets 189 130 - 400 K/mcL LAB HEMETOLOGY METHOD 08/27/2024 10:24 AM [facility] MPV 9.5 7.0 - 11.0 FL LAB HEMETOLOGY METHOD 08/27/2024 10:24 AM [facility] NRBC 0.0 <1.0 % LAB HEMETOLOGY METHOD 08/27/2024 10:24 AM [facility] NRBC Absolute 0.00 <0.10 K/mcL LAB HEMETOLOGY METHOD 08/27/2024 10:24 AM EDT [facility] Blood Venous blood specimen / Unknown Venipuncture / Unknown 08/27/2024 7:31 AM EDT 08/27/2024 9:12 AM EDT us Geena Lee MD LAB BLOOD ORDERABLES Fin al Result [facility] [address] [place] [address], documented in this encounter Visit Diagnoses Diagnosis Other shelter (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 documented in this encounter Care Teams Rug Frame Mounter Relationship Specialty Start Date End Date Geena Lee MD [address] [place] [phone] PCP - General Family Medicine 03/20/24 documented as of this encounter
--- OUTSIDE RECORDS SUMMARY | 2025-04-03 20:43 | XMS_ITS | Encounter Summary ---
Author Organization [facility] Address [address] [place] [address] Care Team Providers Care District Home Economics Agent Name Role Phone Geena Lee MD Primary Care Provider + Encounter Details Date Type Department Care Team (Late st Contact Info) Description 02/19/2025 Lab Requisition [facility] - Main Lab [address] [place] [address] Geena Lee MD [address] [address] Chronic kidney disease, unspecified; Essential [...] Priority Date/Time Associated Diagnosis Comments SODIUM Routine 02/20/2025 8:57 AM EDT Chronic kidney disease, unspecified Essential (primary) hypertension documented in this encounter Results * (ABNORMAL) Sodium (02/20/2025 8:57 AM EDT) Sodium 129(L) 133 - 145 mmol/L LAB CHEMISTRY METHOD 02/20/2025 10:55 AM EDT [facility] ([facility]) [facility] Blood Venous blood specimen / Unknown Venipuncture / Unknown 02/20/2025 8:57 AM EDT 02/20/2025 9:50 AM EDT us Geena Lee MD LAB BLOOD ORDERABLES Fin al Result [facility] ([facility]) [facility] [address] [place] [address], documented in this encounter Visit Diagnoses Diagnosis Chronic kidney disease, unspecified Essential (primary) hypertension Unspecified essential hypertension documented in this encounter Care Teams District Home Economics Agent Relationship Specialty Start Date End Date Geena Lee MD [address] [place] [id number] PCP - General Family Medicine 03/20/24 documented as of this encounter
--- OUTSIDE RECORDS SUMMARY | 2025-04-03 20:43 | XMS_ITS | Encounter Summary ---
Author Organization [facility] Address [address] [place] [address] Care Team Providers Care Designer Name Role Phone Geena Lee MD Primary Care Provider + Encounter Details Date Type Department Care Team (Late st Contact Info) Description 11/21/2024 Lab Requisition [facility] - Main Lab [address] [place] [address] Geena Lee MD [address] [address] Chronic kidney disease, unspecified; Essential [...] LAB CHEMISTRY METHOD 11/22/2024 12:51 PM EDT [facility] ([facility]) [facility] Blood Venous blood specimen / Unknown Venipuncture / Unknown 11/22/2024 7:17 AM EDT 11/22/2024 10:04 AM EDT us Geena Lee MD LAB BLOOD ORDERABLES Fin al Result [facility] ([facility]) [facility] [address] [place] [address], documented in this encounter Visit Diagnoses Diagnosis Chronic kidney disease, unspecified Essential (primary) hypertension Unspecified essential hypertension documented in this encounter Care Teams Designer Relationship Specialty Start Date End Date Geena Lee MD [address] [place] [phone] PCP - General Family Medicine 03/20/24 documented as of this encounter
--- OUTSIDE RECORDS SUMMARY | 2025-04-03 20:43 | XMS_ITS | Encounter Summary ---
Author Organization [facility] Address [address] [place] [address] Care Team Providers Care Nuclear Medicine Supervisor Name Role Phone Geena Lee MD Primary Care Provider + Encounter Details Date Type Department Care Team (Late st Contact Info) Description 02/26/[address] [facility] - Main Lab [address] [place] [address] Geena Lee MD [address] [address] Chronic kidney disease, unspecified; Essential [...] Priority Date/Time Associated Diagnosis Comments SODIUM Routine 02/27/2025 5:24 AM EST Chronic kidney disease, unspecified Essential (primary) hypertension documented in this encounter Results * (ABNORMAL) Sodium (02/27/2025 5:24 AM EST) Sodium 127(L) 133 - 145 mmol/L LAB CHEMISTRY METHOD 02/27/2025 9:39 AM EST [facility] ([facility]) [facility] Blood Venous blood specimen / Unknown Venipuncture / Unknown 02/27/2025 5:24 AM EST 02/27/2025 9:16 AM EST us Geena Lee MD LAB BLOOD ORDERABLES Fin al Result [facility] ([facility]) [facility] [address] [place] [address], documented in this encounter Visit Diagnoses Diagnosis Chronic kidney disease, unspecified Essential (primary) hypertension Unspecified essential hypertension documented in this encounter Care Teams Nuclear Medicine Supervisor Relationship Specialty Start Date End Date Geena Lee MD [address] [phone] PCP - General Family Medicine 03/20/24 documented as of this encounter
--- OUTSIDE RECORDS SUMMARY | 2025-04-03 20:43 | XMS_ITS | Encounter Summary ---
Author Organization [facility] Address [address] [place] [address] Care Team Providers Care Cosmetics And Toiletries Salesperson Name Role Phone Geena Lee MD Primary Care Provider + Encounter Details Date Type Department Care Team (Late st Contact Info) Description 11/24/2024 Lab Requisition [facility] - Main Lab [address] [facility] [place] [phone] Geena Lee MD [address] [address] Essential (primary) hypertension Social History Tobacco Use [...] hypertension documented in this encounter Care Teams Cosmetics And Toiletries Salesperson Relationship Specialty Start Date End Date Geena Lee MD [address] [phone] PCP - General Family Medicine 03/20/24 documented as of this encounter
--- OUTSIDE RECORDS SUMMARY | 2025-04-03 20:43 | XMS_ITS | Encounter Summary ---
Author Organization [facility] Address [address] [place] [address] Care Team Providers Care Winder Fixer Name Role Phone Geena Lee MD Primary Care Provider + Encounter Details Date Type Department Care Team (Late st Contact Info) Description 11/25/[address] [facility] - Main Lab [address] [place] [address] Geena Lee MD [address] [phone] Essential (primary) hypertension Social History Tobacco Use [...] LAB CHEMISTRY METHOD 11/26/2024 10:42 AM EDT [facility] ([facility]) [facility] Potassium 4.1 3.5 - 5.5 mmol/L LAB CHEMISTRY METHOD 11/26/2024 10:42 AM [facility] Chloride 94(L) 96 - 110 mmol/L LAB CHEMISTRY METHOD 11/26/2024 10:42 AM [facility] CO2 26 21 - 32 mmol/L LAB CHEMISTRY METHOD 11/26/2024 10:42 AM [facility] LAB Anion Gap 8 3 - 11 LAB CHEMISTRY METHOD 11/26/2024 10:42 AM [facility] LAB Glucose 65(L) 70 - 100 mg/dL LAB CHEMISTRY METHOD 11/26/2024 10:42 AM [facility] BUN 11 5 - 25 mg/dL LAB CHEMISTRY METHOD 11/26/2024 10:42 AM [facility] LAB Creatinine 0.54(L) 0.70 - 1.30 mg/dL LAB CHEMISTRY METHOD 11/26/2024 10:42 AM [facility] LAB eGFR 108 >=60 mL/min/1. 73m2 LAB CHEMISTRY METHOD 11/26/2024 10:42 AM [facility] LAB Comment:Calculation based on the Chronic Kidney Disease Epidemiology Collaboration (CKD-EPI) equation refit without adjustment for race. BUN/Creatinine Ratio 20.4 LAB CHEMISTRY METHOD 11/26/2024 10:42 AM [facility] Calcium 8.7 8.5 - 10.5 mg/dL LAB CHEMISTRY METHOD 11/26/2024 10:42 AM [facility] LAB AST (SGOT) 25 10 - 42 unit/L LAB CHEMISTRY METHOD 11/26/2024 10:42 AM [facility] ALT (SGPT) 14 10 - 60 unit/L LAB CHEMISTRY METHOD 11/26/2024 10:42 AM [facility] LAB Alkaline Phosphatase 78 42 - 121 unit/L LAB CHEMISTRY METHOD 11/26/2024 10:42 AM [facility] Total Protein 7.1 6.0 - 8.0 g/dL LAB CHEMISTRY METHOD 11/26/2024 10:42 AM EDT [facility] Albumin 3.5 3.2 - 5.0 g/dL LAB CHEMISTRY METHOD 11/26/2024 10:42 AM EDT [facility] Total Bilirubin 0.5 0.0 - 1.4 mg/dL LAB CHEMISTRY METHOD 11/26/2024 10:42 AM EDT [facility] Blood Venous blood specimen / Unknown Venipuncture / Unknown 11/26/2024 5:49 AM EDT 11/26/2024 9:15 AM EDT us Geena Lee MD LAB BLOOD ORDERABLES Fin al Result [facility] [address] [place] [address], * (ABNORMAL) Complete blood count (11/26/2024 5:49 AM EDT) WBC 5.3 4.8 - 10.8 K/mcL LAB HEMETOLOGY METHOD 11/26/2024 9:42 AM [facility] RBC 4.00(L) 4.50 - 5.50 M/mcL LAB HEMETOLOGY METHOD 11/26/2024 9:42 AM [facility] Hemoglobin 11.6(L) 13.5 - 17.5 g/dL LAB HEMETOLOGY METHOD 11/26/2024 9:42 AM [facility] LAB Hematocrit 33.6(L) 42.0 - 54.0 % LAB HEMETOLOGY METHOD 11/26/2024 9:42 AM [facility] MCV 84.0 79.0 - 98.0 FL LAB HEMETOLOGY METHOD 11/26/2024 9:42 AM [facility] LAB MCH 29.0 27.0 - 32.0 pcg LAB HEMETOLOGY METHOD 11/26/2024 9:42 AM EDT [facility] MCHC 34.5 32.0 - 37.0 g/dL LAB HEMETOLOGY METHOD 11/26/2024 9:42 AM EDT [facility] RDW 14.2 11.0 - 15.0 % LAB HEMETOLOGY METHOD 11/26/2024 9:42 AM EDT [facility] Platelets 195 130 - 400 K/mcL LAB HEMETOLOGY METHOD 11/26/2024 9:42 AM EDT [facility] MPV 10.2 7.0 - 11.0 FL LAB HEMETOLOGY METHOD 11/26/2024 9:42 AM EDT [facility] NRBC 0.0 <1.0 % LAB HEMETOLOGY METHOD 11/26/2024 9:42 AM EDT [facility] NRBC Absolute 0.00 <0.10 K/mcL LAB HEMETOLOGY METHOD 11/26/2024 9:42 AM EDT [facility] Blood Venous blood specimen / Unknown Venipuncture / Unknown 11/26/2024 5:49 AM EDT 11/26/2024 9:15 AM EDT us Geena Lee MD LAB BLOOD ORDERABLES Fin al Result [facility] [address] [place] [address], documented in this encounter Visit Diagnoses Diagnosis Essential (primary) hypertension Unspecified essential hypertension documented in this encounter Care Teams Winder Fixer Relationship Specialty Start Date End Date Geena Lee MD [address] [place] [phone] PCP - General Family Medicine 03/20/24 documented as of this encounter
--- OUTSIDE RECORDS SUMMARY | 2025-04-03 20:43 | XMS_ITS | Encounter Summary ---
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
--- OUTSIDE RECORDS SUMMARY | 2025-04-03 20:43 | XMS_ITS | Encounter Summary ---
Author Organization [facility] Address [address] [place] [address] Care Team Providers Care Rn Geriatric Name Role Phone Geena Lee MD Primary Care Provider + Encounter Details Date Type Department Care Team (Late st Contact Info) Description 03/22/2025 Lab Requisition [facility] - Main Lab [address] [place] [address] Geena Lee MD [address] [phone] Essential (primary) hypertension; Chronic kidney disease, unspecified Social History Tobacco [...] Associated Diagnosis Comments COMPLETE BLOOD COUNT Routine 03/24/2025 6:57 AM EST Essential (primary) hypertension Chronic kidney disease, unspecified COMPREHENSIVE METABOLIC PANEL Routine 03/24/2025 6:57 AM EST Essential (primary) hypertension Chronic kidney disease, unspecified documented in this encounter Results * (ABNORMAL) Comprehensive metabolic panel (03/24/2025 6:57 AM EST) Sodium 126(L) 133 - 145 mmol/L 03/24/2025 10:46 AM [facility] Potassium 4.0 3.5 - 5.5 mmol/L 03/24/2025 10:46 AM [facility] Chloride 91(L) 96 - 110 mmol/L 03/24/2025 10:46 AM [facility] CO2 27 21 - 32 mmol/L 03/24/2025 10:46 AM [facility] Anion Gap 8 3 - 11 03/24/2025 10:46 AM [facility] Glucose 61(L) 70 - 100 mg/dL 03/24/2025 10:46 AM [facility] BUN 11 5 - 25 mg/dL 03/24/2025 10:46 AM [facility] Creatinine 0.61(L) 0.70 - 1.30 mg/dL 03/24/2025 10:46 AM [facility] eGFR 104 >=60 mL/min/1. 73m2 03/24/2025 10:46 AM [facility] LAB Comment:Calculation based on the Chronic Kidney Disease Epidemiology Collaboration (CKD-EPI) equation refit without adjustment for race. BUN/Creatinine Ratio 18.0 03/24/2025 10:46 AM [facility] Calcium 8.5 8.5 - 10.5 mg/dL 03/24/2025 10:46 AM [facility] AST (SGOT) 22 10 - 42 unit/L 03/24/2025 10:46 AM [facility] ALT (SGPT) 8(L) 10 - 60 unit/L 03/24/2025 10:46 AM [facility] Alkaline Phosphatase 86 42 - 121 unit/L 03/24/2025 10:46 AM [facility] Total Protein 6.6 6.0 - 8.0 g/dL 03/24/2025 10:46 AM [facility] Albumin 3.4 3.2 - 5.0 g/dL 03/24/2025 10:46 AM [facility] Total Bilirubin 0.5 0.0 - 1.4 mg/dL 03/24/2025 10:46 AM [facility] Blood Venous blood specimen / Unknown Venipuncture / Unknown 03/24/2025 6:57 AM EST 03/24/2025 9:42 AM EST us Geena Lee MD LAB BLOOD ORDERABLES Fin al Result [facility] [address] [place] [address], * (ABNORMAL) Complete blood count (03/24/2025 6:57 AM EST) WBC 4.1(L) 4.8 - 10.8 K/mcL LAB HEMETOLOGY METHOD 03/24/2025 10:10 AM [facility] RBC 3.80(L) 4.50 - 5.50 M/mcL LAB HEMETOLOGY METHOD 03/24/2025 10:10 AM [facility] Hemoglobin 11.7(L) 13.5 - 17.5 g/dL LAB HEMETOLOGY METHOD 03/24/2025 10:10 AM [facility] Hematocrit 34.8(L) 42.0 - 54.0 % LAB HEMETOLOGY METHOD 03/24/2025 10:10 AM [facility] MCV 90.6 79.0 - 98.0 FL LAB HEMETOLOGY METHOD 03/24/2025 10:10 AM [facility] MCH 30.5 27.0 - 32.0 pcg LAB HEMETOLOGY METHOD 03/24/2025 10:10 AM [facility] MCHC 33.6 32.0 - 37.0 g/dL LAB HEMETOLOGY METHOD 03/24/2025 10:10 AM EST [facility] RDW 14.7 11.0 - 15.0 % LAB HEMETOLOGY METHOD 03/24/2025 10:10 AM EST [facility] Platelets 130 130 - 400 K/mcL LAB HEMETOLOGY METHOD 03/24/2025 10:10 AM EST [facility] MPV 9.9 7.0 - 11.0 FL LAB HEMETOLOGY METHOD 03/24/2025 10:10 AM EST [facility] NRBC 0.0 <1.0 % LAB HEMETOLOGY METHOD 03/24/2025 10:10 AM EST [facility] NRBC Absolute 0.00 <0.10 K/mcL LAB HEMETOLOGY METHOD 03/24/2025 10:10 AM [facility] Blood Venous blood specimen / Unknown Venipuncture / Unknown 03/24/2025 6:57 AM EST 03/24/2025 9:42 AM EST us Geena Lee MD LAB BLOOD ORDERABLES Fin al Result [facility] [address] [place] [address], documented in this encounter Visit Diagnoses Diagnosis Essential (primary) hypertension Unspecified essential hypertension Chronic kidney disease, unspecified documented in this encounter Care Teams Rn Geriatric Relationship Specialty Start Date End Date Geena Lee MD [address] [place] [phone] PCP - General Family Medicine 03/20/24 documented as of this encounter
--- OUTSIDE RECORDS SUMMARY | 2025-04-03 20:43 | XMS_ITS | Encounter Summary ---
Author Organization [facility] Address [address] [place] [address] Care Team Providers Care Security Manager Name Role Phone Geena Lee MD Primary Care Provider + Encounter Details Date Type Department Care Team (Late st Contact Info) Description 09/13/2024 Lab Requisition [facility] - Main Lab [address] [place] [address] Geena Lee MD [address] [address] Essential (primary) hypertension Social History [...] LAB CHEMISTRY METHOD 09/13/2024 1:09 PM EDT [facility] Potassium 3.7 3.5 - 5.5 mmol/L LAB CHEMISTRY METHOD 09/13/2024 1:09 PM [facility] LAB Chloride 92(L) 96 - 110 mmol/L LAB CHEMISTRY METHOD 09/13/2024 1:09 PM [facility] LAB CO2 22 21 - 32 mmol/L LAB CHEMISTRY METHOD 09/13/2024 1:09 PM [facility] LAB Anion Gap 12(H) 3 - 11 LAB CHEMISTRY METHOD 09/13/2024 1:09 PM [facility] LAB Glucose 59(L) 70 - 100 mg/dL LAB CHEMISTRY METHOD 09/13/2024 1:09 PM [facility] LAB BUN 14 5 - 25 mg/dL LAB CHEMISTRY METHOD 09/13/2024 1:09 PM [facility] LAB Creatinine 0.65(L) 0.70 - 1.30 mg/dL LAB CHEMISTRY METHOD 09/13/2024 1:09 PM [facility] LAB eGFR 102 >=60 mL/min/1. 73m2 LAB CHEMISTRY METHOD 09/13/2024 1:09 PM [facility] LAB Comment:Calculation based on the Chronic Kidney Disease Epidemiology Collaboration (CKD-EPI) equation refit without adjustment for race. BUN/Creatinine Ratio 21.5 LAB CHEMISTRY METHOD 09/13/2024 1:09 PM [facility] LAB Calcium 9.1 8.5 - 10.5 mg/dL LAB CHEMISTRY METHOD 09/13/2024 1:09 PM [facility] LAB Blood Venous blood specimen / Unknown Venipuncture / Unknown 09/13/2024 7:48 AM EDT 09/13/2024 10:34 AM EDT us Geena Lee MD LAB BLOOD ORDERABLES Fin al Result [facility] LAB [address] [place] [address], [place] [phone] * (ABNORMAL) Complete blood count (09/13/2024 7:48 AM EDT) [facility] WBC 5.4 4.8 - 10.8 K/mcL LAB HEMETOLOGY METHOD 09/13/2024 11:19 AM [facility] LAB RBC 4.20(L) 4.50 - 5.50 M/mcL LAB HEMETOLOGY METHOD 09/13/2024 11:19 AM [facility] LAB Hemoglobin 13.7 13.5 - 17.5 g/dL LAB HEMETOLOGY METHOD 09/13/2024 11:19 AM [facility] LAB Hematocrit 38.2(L) 42.0 - 54.0 % LAB HEMETOLOGY METHOD 09/13/2024 11:19 AM [facility] LAB MCV 90.5 79.0 - 98.0 FL LAB HEMETOLOGY METHOD 09/13/2024 11:19 AM [facility] LAB MCH 32.5(H) 27.0 - 32.0 pcg LAB HEMETOLOGY METHOD 09/13/2024 11:19 AM [facility] LAB MCHC 35.9 32.0 - 37.0 g/dL LAB HEMETOLOGY METHOD 09/13/2024 11:19 AM [facility] LAB RDW 13.2 11.0 - 15.0 % LAB HEMETOLOGY METHOD 09/13/2024 11:19 AM [facility] LAB Platelets 190 130 - 400 K/mcL LAB HEMETOLOGY METHOD 09/13/2024 11:19 AM [facility] LAB MPV 9.1 7.0 - 11.0 FL LAB HEMETOLOGY METHOD 09/13/2024 11:19 AM [facility] LAB NRBC 0.0 <1.0 % LAB HEMETOLOGY METHOD 09/13/2024 11:19 AM [facility] LAB NRBC Absolute 0.00 <0.10 K/mcL LAB HEMETOLOGY METHOD 09/13/2024 11:19 AM EDT [facility] LAB Blood Venous blood specimen / Unknown Venipuncture / Unknown 09/13/2024 7:48 AM EDT 09/13/2024 10:34 AM EDT us Geena Lee MD LAB BLOOD ORDERABLES Fin al Result [facility] LAB [address] [place] [address], documented in this encounter Visit Diagnoses Diagnosis Essential (primary) hypertension Unspecified essential hypertension documented in this encounter Care Teams Security Manager Relationship Specialty Start Date End Date Geena Lee MD [address] [address] PCP - General Family Medicine 03/20/24 documented as of this encounter
--- OUTSIDE RECORDS SUMMARY | 2025-04-03 20:43 | XMS_ITS | Encounter Summary ---
Author Organization [facility] Address [address] [place] [address] Care Team Providers Care Log Turner Name Role Phone Geena Lee MD Primary Care Provider + Encounter Details Date Type Department Care Team (Late st Contact Info) Description 10/11/2024 Lab Requisition [facility] - Main Lab 299 [facility] [place] [phone] Geena Lee MD [address] [address] Essential (primary) hypertension Social History Tobacco Use [...] hypertension documented in this encounter Care Teams Log Turner Relationship Specialty Start Date End Date Geena Lee MD [address] [address] PCP - General Family Medicine 03/20/24 documented as of this encounter
--- OUTSIDE RECORDS SUMMARY | 2025-04-03 20:43 | XMS_ITS | Encounter Summary ---
Author Organization [facility] Address [address] [place] [address] Care Team Providers Care Signal Person Name Role Phone Geena Lee MD Primary Care Provider + Encounter Details Date Type Department Care Team (Late st Contact Info) Description 10/14/2024 Lab Requisition [facility] - Main Lab [address] [place] [address] Geena Lee MD [address] [phone] Essential (primary) hypertension Social History Tobacco Use [...] LAB CHEMISTRY METHOD 10/15/2024 11:07 AM EDT [facility] ([facility]) [facility] LAB Potassium 4.0 3.5 - 5.5 mmol/L LAB CHEMISTRY METHOD 10/15/2024 11:07 AM [facility] LAB Chloride 93(L) 96 - 110 mmol/L LAB CHEMISTRY METHOD 10/15/2024 11:07 AM [facility] LAB CO2 27 21 - 32 mmol/L LAB CHEMISTRY METHOD 10/15/2024 11:07 AM [facility] LAB Anion Gap 9 3 - 11 LAB CHEMISTRY METHOD 10/15/2024 11:07 AM [facility] LAB Glucose 83 70 - 100 mg/dL LAB CHEMISTRY METHOD 10/15/2024 11:07 AM [facility] LAB BUN 15 5 - 25 mg/dL LAB CHEMISTRY METHOD 10/15/2024 11:07 AM [facility] LAB Creatinine 0.70 0.70 - 1.30 mg/dL LAB CHEMISTRY METHOD 10/15/2024 11:07 AM [facility] LAB eGFR 100 >=60 mL/min/1. 73m2 LAB CHEMISTRY METHOD 10/15/2024 11:07 AM [facility] LAB Comment:Calculation based on the Chronic Kidney Disease Epidemiology Collaboration (CKD-EPI) equation refit without adjustment for race. BUN/Creatinine Ratio 21.4 LAB CHEMISTRY METHOD 10/15/2024 11:07 AM [facility] LAB Calcium 8.2(L) 8.5 - 10.5 mg/dL LAB CHEMISTRY METHOD 10/15/2024 11:07 AM [facility] LAB AST (SGOT) 20 10 - 42 unit/L LAB CHEMISTRY METHOD 10/15/2024 11:07 AM [facility] LAB ALT (SGPT) 10 10 - 60 unit/L LAB CHEMISTRY METHOD 10/15/2024 11:07 AM [facility] LAB Alkaline Phosphatase 89 42 - 121 unit/L LAB CHEMISTRY METHOD 10/15/2024 11:07 AM [facility] LAB Total Protein 6.4 6.0 - 8.0 g/dL LAB CHEMISTRY METHOD 10/15/2024 11:07 AM [facility] Albumin 2.9(L) 3.2 - 5.0 g/dL LAB CHEMISTRY METHOD 10/15/2024 11:07 AM [facility] LAB Total Bilirubin 0.5 0.0 - 1.4 mg/dL LAB CHEMISTRY METHOD 10/15/2024 11:07 AM [facility] LAB Blood Venous blood specimen / Unknown Venipuncture / Unknown 10/15/2024 6:00 AM EDT 10/15/2024 9:30 AM EDT us Geena Lee MD LAB BLOOD ORDERABLES Fin al Result [facility] LAB [address] [place] [address], * (ABNORMAL) Complete blood count (10/15/2024 6:00 AM EDT) WBC 4.7(L) 4.8 - 10.8 K/mcL LAB HEMETOLOGY METHOD 10/15/2024 10:07 AM [facility] LAB RBC 3.40(L) 4.50 - 5.50 M/mcL LAB HEMETOLOGY METHOD 10/15/2024 10:07 AM [facility] LAB Hemoglobin 10.3(L) 13.5 - 17.5 g/dL LAB HEMETOLOGY METHOD 10/15/2024 10:07 AM [facility] LAB Hematocrit 31.0(L) 42.0 - 54.0 % LAB HEMETOLOGY METHOD 10/15/2024 10:07 AM [facility] LAB MCV 91.4 79.0 - 98.0 FL LAB HEMETOLOGY METHOD 10/15/2024 10:07 AM [facility] LAB MCH 30.4 27.0 - 32.0 pcg LAB HEMETOLOGY METHOD 10/15/2024 10:07 AM EDT [facility] LAB MCHC 33.2 32.0 - 37.0 g/dL LAB HEMETOLOGY METHOD 10/15/2024 10:07 AM EDT [facility] LAB RDW 14.2 11.0 - 15.0 % LAB HEMETOLOGY METHOD 10/15/2024 10:07 AM EDT [facility] LAB Platelets 164 130 - 400 K/mcL LAB HEMETOLOGY METHOD 10/15/2024 10:07 AM EDT [facility] LAB MPV 9.7 7.0 - 11.0 FL LAB HEMETOLOGY METHOD 10/15/2024 10:07 AM EDT [facility] LAB NRBC 0.0 <1.0 % LAB HEMETOLOGY METHOD 10/15/2024 10:07 AM EDT [facility] LAB NRBC Absolute 0.00 <0.10 K/mcL LAB HEMETOLOGY METHOD 10/15/2024 10:07 AM T [facility] LAB Blood Venous blood specimen / Unknown Venipuncture / Unknown 10/15/2024 6:00 AM EDT 10/15/2024 9:30 AM EDT us Geena Lee MD LAB BLOOD ORDERABLES Fin al Result [facility] [address] [place] [address], documented in this encounter Visit Diagnoses Diagnosis Essential (primary) hypertension Unspecified essential hypertension documented in this encounter Care Teams Signal Person Relationship Specialty Start Date End Date Geena Lee MD [address] [place] [phone] PCP - General Family Medicine 03/20/24 documented as of this encounter
--- OUTSIDE RECORDS SUMMARY | 2025-04-03 20:43 | XMS_ITS | Encounter Summary ---
Author Organization [facility] Address [address] [place] [address] Care Team Providers Care Roller Mill Operator Name Role Phone Geena Lee MD Primary Care Provider + Encounter Details Date Type Department Care Team (Late st Contact Info) Description 03/20/2024 Lab Requisition [facility] - Main Lab 299 [facility] [address] Geena Lee MD [address] [address] Chronic obstructive pulmonary disease, unspecified [...] mmol/L LAB CHEMISTRY METHOD 03/20/2024 2:43 PM [facility] LAB Potassium 4.1 3.5 - 5.5 mmol/L LAB CHEMISTRY METHOD 03/20/2024 2:43 PM [facility] LAB Chloride 93(L) 96 - 110 mmol/L LAB CHEMISTRY METHOD 03/20/2024 2:43 PM [facility] LAB CO2 23 21 - 32 mmol/L LAB CHEMISTRY METHOD 03/20/2024 2:43 PM [facility] LAB Anion Gap 12(H) 3 - 11 LAB CHEMISTRY METHOD 03/20/2024 2:43 PM [facility] LAB Glucose 75 70 - 100 mg/dL LAB CHEMISTRY METHOD 03/20/2024 2:43 PM [facility] BUN 15 5 - 25 mg/dL LAB CHEMISTRY METHOD 03/20/2024 2:43 PM [facility] LAB Creatinine 0.58(L) 0.70 - 1.30 mg/dL LAB CHEMISTRY METHOD 03/20/2024 2:43 PM [facility] LAB eGFR 106 >=60 mL/min/1. 73m2 LAB CHEMISTRY METHOD 03/20/2024 2:43 PM [facility] LAB Comment:Calculation based on the Chronic Kidney Disease Epidemiology Collaboration (CKD-EPI) equation refit without adjustment for race. BUN/Creatinine Ratio 25.9 LAB CHEMISTRY METHOD 03/20/2024 2:43 PM [facility] LAB Calcium 8.3(L) 8.5 - 10.5 mg/dL LAB CHEMISTRY METHOD 03/20/2024 2:43 PM [facility] LAB AST (SGOT) 29 10 - 42 unit/L LAB CHEMISTRY METHOD 03/20/2024 2:43 PM [facility] LAB ALT (SGPT) 30 10 - 60 unit/L LAB CHEMISTRY METHOD 03/20/2024 2:43 PM [facility] LAB Alkaline Phosphatase 114 42 - 121 unit/L LAB CHEMISTRY METHOD 03/20/2024 2:43 PM [facility] LAB Total Protein 6.6 6.0 - 8.0 g/dL LAB CHEMISTRY METHOD 03/20/2024 2:43 PM [facility] LAB Albumin 2.9(L) 3.2 - 5.0 g/dL LAB CHEMISTRY METHOD 03/20/2024 2:43 PM [facility] LAB Total Bilirubin 1.1 0.0 - 1.4 mg/dL LAB CHEMISTRY METHOD 03/20/2024 2:43 PM [facility] LAB Blood Venous blood specimen / Unknown Venipuncture / Unknown 03/20/2024 5:24 AM EST 03/20/2024 10:33 AM EST us Geena Lee MD LAB BLOOD ORDERABLES Fin al Result [facility] LAB [address] [place] [address], * (ABNORMAL) Complete blood count (03/20/2024 5:24 AM EST) WBC 10.7 4.8 - 10.8 K/mcL LAB HEMETOLOGY METHOD 03/20/2024 11:05 AM [facility] LAB RBC 4.20(L) 4.50 - 5.50 M/mcL LAB HEMETOLOGY METHOD 03/20/2024 11:05 AM [facility] LAB Hemoglobin 13.2(L) 13.5 - 17.5 g/dL LAB HEMETOLOGY METHOD 03/20/2024 11:05 AM [facility] LAB Hematocrit 38.0(L) 42.0 - 54.0 % LAB HEMETOLOGY METHOD 03/20/2024 11:05 AM [facility] LAB MCV 91.3 79.0 - 98.0 FL LAB HEMETOLOGY METHOD 03/20/2024 11:05 AM [facility] LAB MCH 31.7 27.0 - 32.0 pcg LAB HEMETOLOGY METHOD 03/20/2024 11:05 AM [facility] LAB MCHC 34.7 32.0 - 37.0 g/dL LAB HEMETOLOGY METHOD 03/20/2024 11:05 AM [facility] LAB RDW 12.9 11.0 - 15.0 % LAB HEMETOLOGY METHOD 03/20/2024 11:05 AM [facility] LAB Platelets 244 130 - 400 K/mcL LAB HEMETOLOGY METHOD 03/20/2024 11:05 AM [facility] LAB MPV 9.4 7.0 - 11.0 FL LAB HEMETOLOGY METHOD 03/20/2024 11:05 AM [facility] LAB NRBC 0.0 <1.0 % LAB HEMETOLOGY METHOD 03/20/2024 11:05 AM [facility] LAB NRBC Absolute 0.00 <0.10 K/mcL LAB HEMETOLOGY METHOD 03/20/2024 11:05 AM [facility] LAB Blood Venous blood specimen / Unknown Venipuncture / Unknown 03/20/2024 5:24 AM EST 03/20/2024 10:33 AM EST us Geena Lee MD LAB BLOOD ORDERABLES Fin al Result [facility] [address] [place] [address], documented in this encounter Visit Diagnoses Diagnosis Chronic obstructive pulmonary disease, unspecified (CMS/HCC V24, CMS/HCC V28) documented in this encounter Care Teams Roller Mill Operator Relationship Specialty Start Date End Date Geena Lee MD [address] [address] PCP - General Family Medicine 03/20/24 documented as of this encounter
--- OUTSIDE RECORDS SUMMARY | 2025-04-03 20:43 | XMS_ITS | Encounter Summary ---
Author Organization [facility] Address [address] [place] [address] Care Team Providers Care Market Development Manager Name Role Phone Geena Lee MD Primary Care Provider + Encounter Details Date Type Department Care Team (Late st Contact Info) Description 11/20/[address] [facility] - Main Lab 299 [facility] [place] [address] Geena Lee MD [address] [address] Chronic kidney disease, unspecified; Essential (primary) hypertension [...] hypertension documented in this encounter Care Teams Market Development Manager Relationship Specialty Start Date End Date Geena Lee MD [address] [address] PCP - General Family Medicine 03/20/24 documented as of this encounter
--- OUTSIDE RECORDS SUMMARY | 2025-04-03 20:43 | XMS_ITS | Encounter Summary ---
Author Organization [facility] Address [address] [place] [address] Care Team Providers Care Hosting Engineer Name Role Phone Geena Lee MD Primary Care Provider + Encounter Details Date Type Department Care Team (Late st Contact Info) Description 02/21/2025 Lab Requisition [facility] - Main Lab 299 [facility] [place] [phone] Geena Lee MD [address] [address] Essential (primary) hypertension Social History Tobacco Use [...] hypertension documented in this encounter Care Teams Hosting Engineer Relationship Specialty Start Date End Date Geena Lee MD [address] [address] PCP - General Family Medicine 03/20/24 documented as of this encounter
--- OUTSIDE RECORDS SUMMARY | 2025-04-03 20:43 | XMS_ITS | Encounter Summary ---
Author Organization [facility] Address [address] [place] [address] Care Team Providers Care Double Cut Sawyer Name Role Phone Geena Lee MD Primary Care Provider + Encounter Details Date Type Department Care Team (Late st Contact Info) Description 09/05/2024 Lab Requisition [facility] - Main Lab [address] [place] [address] Geena Lee MD [address] [address] Essential (primary) hypertension; Unspecified atrial [...] LAB CHEMISTRY METHOD 09/06/2024 10:18 AM EDT [facility] Blood Venous blood specimen / Unknown Venipuncture / Unknown 09/06/2024 7:32 AM EDT 09/06/2024 9:36 AM EDT us Geena Lee MD LAB BLOOD ORDERABLES Fin al Result [facility] ([facility] [address] [place] [address], documented in this encounter Visit Diagnoses Diagnosis Essential (primary) hypertension Unspecified essential hypertension Unspecified atrial fibrillation (CMS/HCC V24, CMS/HCC V28) Chronic kidney disease, unspecified documented in this encounter Care Teams Double Cut Sawyer Relationship Specialty Start Date End Date Geena Lee MD [address] [address] PCP - General Family Medicine 03/20/24 documented as of this encounter
--- OUTSIDE RECORDS SUMMARY | 2025-04-03 20:43 | XMS_ITS | Encounter Summary ---
Author Organization [facility] Address [address] [place] [address] Care Team Providers Care Tile Presser Name Role Phone Geena Lee MD Primary Care Provider + Encounter Details Date Type Department Care Team (Late st Contact Info) Description 11/01/2024 Lab Requisition [facility] - Main Lab 299 [facility] [phone] Geena Lee MD [address] [address] Essential (primary) hypertension Social History Tobacco Use [...] hypertension documented in this encounter Care Teams Tile Presser Relationship Specialty Start Date End Date Geena Lee MD [address] [address] PCP - General Family Medicine 03/20/24 documented as of this encounter
--- OUTSIDE RECORDS SUMMARY | 2025-04-03 20:43 | XMS_ITS | Encounter Summary ---
Author Organization [facility] Address [address] [place] [address] Care Team Providers Care Accounts Payable Clerk Name Role Phone Geena Lee MD Primary Care Provider + Encounter Details Date Type Department Care Team (Late st Contact Info) Description 03/05/2025 Lab Requisition [facility] - Main Lab [address] [place] [address] Geena Lee MD [address] [address] Chronic kidney disease, unspecified; Essential [...] Priority Date/Time Associated Diagnosis Comments SODIUM Routine 03/06/2025 5:40 AM EST Chronic kidney disease, unspecified Essential (primary) hypertension documented in this encounter Results * (ABNORMAL) Sodium (03/06/2025 5:40 AM EST) Sodium 127(L) 133 - 145 mmol/L LAB CHEMISTRY METHOD 03/06/2025 11:41 AM EST [facility] Blood Venous blood specimen / Unknown Venipuncture / Unknown 03/06/2025 5:40 AM EST 03/06/2025 10:35 AM EST us Geena Lee MD LAB BLOOD ORDERABLES Fin al Result [facility] ([facility] [address] [place] [address], documented in this encounter Visit Diagnoses Diagnosis Chronic kidney disease, unspecified Essential (primary) hypertension Unspecified essential hypertension documented in this encounter Care Teams Accounts Payable Clerk Relationship Specialty Start Date End Date Geena Lee MD [address] [address] PCP - General Family Medicine 03/20/24 documented as of this encounter
--- OUTSIDE RECORDS SUMMARY | 2025-04-03 20:43 | XMS_ITS | Encounter Summary ---
Author Organization [facility] Address [address] [place] [address] Care Team Providers Care Renewals Manager Name Role Phone Geena Lee MD Primary Care Provider + Encounter Details Date Type Department Care Team (Late st Contact Info) Description 12/13/2024 Lab Requisition [facility] - Main Lab [address] [place] [address] Geena Lee MD [address] [phone] Essential (primary) hypertension Social History Tobacco Use [...] LAB CHEMISTRY METHOD 12/16/2024 11:12 AM EDT [facility] Potassium 4.2 3.5 - 5.5 mmol/L LAB CHEMISTRY METHOD 12/16/2024 11:12 AM [facility] LAB Comment:Hemolysis present Chloride 92(L) 96 - 110 mmol/L LAB CHEMISTRY METHOD 12/16/2024 11:12 AM [facility] LAB CO2 25 21 - 32 mmol/L LAB CHEMISTRY METHOD 12/16/2024 11:12 AM [facility] LAB Anion Gap 10 3 - 11 LAB CHEMISTRY METHOD 12/16/2024 11:12 AM [facility] Glucose 60(L) 70 - 100 mg/dL LAB CHEMISTRY METHOD 12/16/2024 11:12 AM [facility] BUN 9 5 - 25 mg/dL LAB CHEMISTRY METHOD 12/16/2024 11:12 AM [facility] LAB Creatinine 0.57(L) 0.70 - 1.30 mg/dL LAB CHEMISTRY METHOD 12/16/2024 11:12 AM [facility] LAB eGFR 106 >=60 mL/min/1. 73m2 LAB CHEMISTRY METHOD 12/16/2024 11:12 AM [facility] LAB Comment:Calculation based on the Chronic Kidney Disease Epidemiology Collaboration (CKD-EPI) equation refit without adjustment for race. BUN/Creatinine Ratio 15.8 LAB CHEMISTRY METHOD 12/16/2024 11:12 AM [facility] Calcium 9.0 8.5 - 10.5 mg/dL LAB CHEMISTRY METHOD 12/16/2024 11:12 AM [facility] AST (SGOT) 24 10 - 42 unit/L LAB CHEMISTRY METHOD 12/16/2024 11:12 AM [facility] LAB Comment:Hemolysis present ALT (SGPT) 16 10 - 60 unit/L LAB CHEMISTRY METHOD 12/16/2024 11:12 AM [facility] LAB Alkaline Phosphatase 84 42 - 121 unit/L LAB CHEMISTRY METHOD 12/16[facility]24 [facility] Total Protein 7.4 6.0 - 8.0 g/dL LAB CHEMISTRY METHOD 12/16/2024 11:12 AM [facility] Albumin 3.5 3.2 - 5.0 g/dL LAB CHEMISTRY METHOD 12/16/2024 11:12 AM [facility] Total Bilirubin 0.6 0.0 - 1.4 mg/dL LAB CHEMISTRY METHOD 12/16/2024 11:12 AM T [facility] LAB Blood Venous blood specimen / Unknown Venipuncture / Unknown 12/16/2024 7:06 AM EDT 12/16/2024 10:18 AM EDT us Geena Lee MD LAB BLOOD ORDERABLES Fin al Result [facility] [address] [place] [address], * (ABNORMAL) Complete blood count (12/16/2024 7:06 AM EDT) WBC 5.6 4.8 - 10.8 K/mcL LAB HEMETOLOGY METHOD 12/16/2024 10:35 AM [facility] RBC 4.50 4.50 - 5.50 M/mcL LAB HEMETOLOGY METHOD 12/16/2024 10:35 AM [facility] LAB Hemoglobin 13.0(L) 13.5 - 17.5 g/dL LAB HEMETOLOGY METHOD 12/16/2024 10:35 AM [facility] LAB Hematocrit 37.3(L) 42.0 - 54.0 % LAB HEMETOLOGY METHOD 12/16/2024 10:35 AM [facility] MCV 82.5 79.0 - 98.0 FL LAB HEMETOLOGY METHOD 12/16/2024 10:35 AM [facility] MCH 28.8 27.0 - 32.0 pcg LAB HEMETOLOGY METHOD 12/16/2024 10:35 AM EDT [facility] MCHC 34.9 32.0 - 37.0 g/dL LAB HEMETOLOGY METHOD 12/16/2024 10:35 AM EDT [facility] RDW 14.9 11.0 - 15.0 % LAB HEMETOLOGY METHOD 12/16/2024 10:35 AM EDT [facility] Platelets 168 130 - 400 K/mcL LAB HEMETOLOGY METHOD 12/16/2024 10:35 AM EDT [facility] MPV 10.3 7.0 - 11.0 FL LAB HEMETOLOGY METHOD 12/16/2024 10:35 AM EDT [facility] NRBC 0.0 <1.0 % LAB HEMETOLOGY METHOD 12/16/2024 10:35 AM EDT [facility] NRBC Absolute 0.00 <0.10 K/mcL LAB HEMETOLOGY METHOD 12/16/2024 10:35 AM EDT [facility] Blood Venous blood specimen / Unknown Venipuncture / Unknown 12/16/2024 7:06 AM EDT 12/16/2024 10:18 AM EDT us Geena Lee MD LAB BLOOD ORDERABLES Fin al Result [facility] [address] [place] [address], documented in this encounter Visit Diagnoses Diagnosis Essential (primary) hypertension Unspecified essential hypertension documented in this encounter Care Teams Renewals Manager Relationship Specialty Start Date End Date Geena Lee MD [address] [place] [address] PCP - General Family Medicine 03/20/24 documented as of this encounter
--- OUTSIDE RECORDS SUMMARY | 2025-04-03 20:43 | XMS_ITS | Encounter Summary ---
Author Organization [facility] Address [address] [place] [address] Care Team Providers Care Driver Utility Worker Name Role Phone Geena Lee MD Primary Care Provider + Encounter Details Date Type Department Care Team (Late st Contact Info) Description 10/18/[address] [facility] - Main Lab [address] [place] [address] Geena Lee MD [address] [phone] Essential (primary) hypertension Social History Tobacco Use [...] AM EDT) WBC 5.7 4.8 - 10.8 K/[facility] LAB HEMETOLOGY METHOD 10/21/2024 11:01 AM EDT [facility] LAB RBC 3.80(L) 4.50 - 5.50 M/mcL LAB HEMETOLOGY METHOD 10/21/2024 11:01 AM [facility] LAB Hemoglobin 11.3(L) 13.5 - 17.5 g/dL LAB HEMETOLOGY METHOD 10/21/2024 11:01 AM [facility] LAB Hematocrit 34.2(L) 42.0 - 54.0 % LAB HEMETOLOGY METHOD 10/21/2024 11:01 AM [facility] LAB MCV 90.2 79.0 - 98.0 FL LAB HEMETOLOGY METHOD 10/21/2024 11:01 AM [facility] LAB MCH 29.8 27.0 - 32.0 pcg LAB HEMETOLOGY METHOD 10/21/2024 11:01 AM [facility] LAB MCHC 33.0 32.0 - 37.0 g/dL LAB HEMETOLOGY METHOD 10/21/2024 11:01 AM [facility] LAB RDW 13.9 11.0 - 15.0 % LAB HEMETOLOGY METHOD 10/21/2024 11:01 AM [facility] LAB Platelets 196 130 - 400 K/mcL LAB HEMETOLOGY METHOD 10/21/2024 11:01 AM [facility] LAB MPV 9.7 7.0 - 11.0 FL LAB HEMETOLOGY METHOD 10/21/2024 11:01 AM [facility] LAB NRBC 0.0 <1.0 % LAB HEMETOLOGY METHOD 10/21/2024 11:01 AM [facility] LAB NRBC Absolute 0.00 <0.10 K/mcL LAB HEMETOLOGY METHOD 10/21/2024 11:01 AM [facility] LAB Blood Venous blood specimen / Unknown Venipuncture / Unknown 10/21/2024 8:12 AM EDT 10/21/2024 10:06 AM EDT us Geena Lee MD LAB BLOOD ORDERABLES Fin al Result [facility] LAB [address] [place] [address], [place] [phone] * (ABNORMAL) Comprehensive metabolic panel (10/21/2024 8:12 AM EDT) Sodium 125(L) 133 - 145 mmol/L LAB CHEMISTRY METHOD 10/21/2024 11:24 AM [facility] LAB Potassium 4.0 3.5 - 5.5 mmol/L LAB CHEMISTRY METHOD 10/21/2024 11:24 AM [facility] LAB Chloride 88(L) 96 - 110 mmol/L LAB CHEMISTRY METHOD 10/21/2024 11:24 AM [facility] LAB CO2 28 21 - 32 mmol/L LAB CHEMISTRY METHOD 10/21/2024 11:24 AM [facility] LAB Anion Gap 9 3 - 11 LAB CHEMISTRY METHOD 10/21/2024 11:24 AM [facility] LAB Glucose 70 70 - 100 mg/dL LAB CHEMISTRY METHOD 10/21/2024 11:24 AM [facility] LAB BUN 10 5 - 25 mg/dL LAB CHEMISTRY METHOD 10/21/2024 11:24 AM [facility] LAB Creatinine 0.68(L) 0.70 - 1.30 mg/dL LAB CHEMISTRY METHOD 10/21/2024 11:24 AM [facility] LAB eGFR 101 >=60 mL/min/1. 73m2 LAB CHEMISTRY METHOD 10/21/2024 11:24 AM [facility] LAB Comment:Calculation based on the Chronic Kidney Disease Epidemiology Collaboration (CKD-EPI) equation refit without adjustment for race. BUN/Creatinine Ratio 14.7 LAB CHEMISTRY METHOD 10/21/2024 11:24 AM [facility] LAB Calcium 8.7 8.5 - 10.5 mg/dL LAB CHEMISTRY METHOD 10/21/2024 11:24 AM EDT [facility] LAB AST (SGOT) 19 10 - 42 unit/L LAB CHEMISTRY METHOD 10/21/2024 11:24 AM T [facility] LAB ALT (SGPT) 11 10 - 60 unit/L LAB CHEMISTRY METHOD 10/21/2024 11:24 AM EDT [facility] LAB Alkaline Phosphatase 95 42 - 121 unit/L LAB CHEMISTRY METHOD 10/21/2024 11:24 AM T [facility] LAB Total Protein 7.4 6.0 - 8.0 g/dL LAB CHEMISTRY METHOD 10/21/2024 11:24 AM [facility] LAB Albumin 3.3 3.2 - 5.0 g/dL LAB CHEMISTRY METHOD 10/21/2024 11:24 AM [facility] LAB Total Bilirubin 0.6 0.0 - 1.4 mg/dL LAB CHEMISTRY METHOD 10/21/2024 11:24 AM T [facility] LAB Blood Venous blood specimen / Unknown Venipuncture / Unknown 10/21/2024 8:12 AM EDT 10/21/2024 10:06 AM EDT us Geena Lee MD LAB BLOOD ORDERABLES Fin al Result [facility] LAB [address] [place] [address], documented in this encounter Visit Diagnoses Diagnosis Essential (primary) hypertension Unspecified essential hypertension documented in this encounter Care Teams Driver Utility Worker Relationship Specialty Start Date End Date Geena Lee MD [address] [place] [phone] PCP - General Family Medicine 03/20/24 documented as of this encounter
--- OUTSIDE RECORDS SUMMARY | 2025-04-03 20:43 | XMS_ITS | Encounter Summary ---
Author Organization [facility] Address [address] [place] [address] Care Team Providers Care Linen Room Worker Name Role Phone Geena Lee MD Primary Care Provider + Encounter Details Date Type Department Care Team (Late st Contact Info) Description 03/26/[address] [facility] - Main Lab [address] [place] [address] Geena Lee MD [address] [address] Chronic systolic (congestive) heart failure [...] mmol/L LAB CHEMISTRY METHOD 03/26/2024 10:59 AM [facility] LAB Potassium 4.4 3.5 - 5.5 mmol/L LAB CHEMISTRY METHOD 03/26/2024 10:59 AM [facility] LAB Chloride 99 96 - 110 mmol/L LAB CHEMISTRY METHOD 03/26/2024 10:59 AM [facility] LAB CO2 26 21 - 32 mmol/L LAB CHEMISTRY METHOD 03/26/2024 10:59 AM [facility] LAB Anion Gap 9 3 - 11 LAB CHEMISTRY METHOD 03/26/2024 10:59 AM [facility] LAB Glucose 84 70 - 100 mg/dL LAB CHEMISTRY METHOD 03/26/2024 10:59 AM [facility] LAB BUN 16 5 - 25 mg/dL LAB CHEMISTRY METHOD 03/26/2024 10:59 AM [facility] LAB Creatinine 0.66(L) 0.70 - 1.30 mg/dL LAB CHEMISTRY METHOD 03/26/2024 10:59 AM [facility] LAB eGFR 102 >=60 mL/min/1. 73m2 LAB CHEMISTRY METHOD 03/26/2024 10:59 AM [facility] LAB Comment:Calculation based on the Chronic Kidney Disease Epidemiology Collaboration (CKD-EPI) equation refit without adjustment for race. BUN/Creatinine Ratio 24.2 LAB CHEMISTRY METHOD 03/26/2024 10:59 AM [facility] LAB Calcium 8.4(L) 8.5 - 10.5 mg/dL LAB CHEMISTRY METHOD 03/26/2024 10:59 AM [facility] LAB AST (SGOT) 27 10 - 42 unit/L LAB CHEMISTRY METHOD 03/26/2024 10:59 AM [facility] LAB ALT (SGPT) 26 10 - 60 unit/L LAB CHEMISTRY METHOD 03/26/2024 10:59 AM [facility] LAB Alkaline Phosphatase 136(H) 42 - 121 unit/L LAB CHEMISTRY METHOD 03/26/2024 10:59 AM EST [facility] LAB Total Protein 6.2 6.0 - 8.0 g/dL LAB CHEMISTRY METHOD 03/26/2024 10:59 AM EST [facility] LAB Albumin 2.5(L) 3.2 - 5.0 g/dL LAB CHEMISTRY METHOD 03/26/2024 10:59 AM [facility] LAB Total Bilirubin 0.5 0.0 - 1.4 mg/dL LAB CHEMISTRY METHOD 03/26/2024 10:59 AM EST [facility] LAB Blood Venous blood specimen / Unknown Venipuncture / Unknown 03/26/2024 5:10 AM EST 03/26/2024 9:55 AM EST us Geena Lee MD LAB BLOOD ORDERABLES Fin al Result [facility] LAB [address] [place] [address], documented in this encounter Visit Diagnoses Diagnosis Chronic systolic (congestive) heart failure (CMS/HCC V24, CMS/HCC V28) Fracture of unspecified part of neck of left femur, subsequent encounter for closed fracture with routine healing documented in this encounter Care Teams Linen Room Worker Relationship Specialty Start Date End Date Geena Lee MD [address] [place] [phone] PCP - General Family Medicine 03/20/24 documented as of this encounter
--- OUTSIDE RECORDS SUMMARY | 2025-04-03 20:43 | XMS_ITS | Encounter Summary ---
Author Organization [facility] Address [address] [place] [address] Care Team Providers Care Berry Picker Name Role Phone Geena Lee MD Primary Care Provider + Encounter Details Date Type Department Care Team (Late st Contact Info) Description [address] [facility] - Main Lab [address] [facility] [place] [address] Geena Lee MD [address] [address] Fracture of unspecified part of [...] left femur, initial encounter for closed fracture ([facility] V24, [facility] V28) documented in this encounter Results * Valproic acid level, total (2024 11:01 AM EDT) Valproic Acid, Total 68 50 - 100 mcg/mL LAB CHEMISTRY METHOD 2024 2:15 PM EDT [facility] LAB Blood Venous blood specimen / Unknown Venipuncture / Unknown 2024 11:01 AM EDT 2024 12:03 PM EDT us Genea Lee MD LAB BLOOD ORDERABLES Fin al Result [facility] [address] [place] [address], * (ABNORMAL) Comprehensive metabolic panel (2024 11:01 AM EDT) Sodium 125(L) 133 - 145 mmol/L LAB CHEMISTRY METHOD 2024 2:15 PM T [facility] LAB Potassium 3.9 3.5 - 5.5 mmol/L LAB CHEMISTRY METHOD 2024 2:15 PM T [facility] LAB Chloride 90(L) 96 - 110 mmol/L LAB CHEMISTRY METHOD 2024 2:15 PM EDT [facility] LAB CO2 27 21 - 32 mmol/L LAB CHEMISTRY METHOD 2024 2:15 PM EDT [facility] LAB Anion Gap 8 3 - 11 LAB CHEMISTRY METHOD 2024 2:15 PM [facility] LAB Glucose 92 70 - 100 mg/dL LAB CHEMISTRY METHOD 2024 2:15 PM T [facility] LAB BUN 12 5 - 25 mg/dL LAB CHEMISTRY METHOD 2024 2:15 PM [facility] LAB Creatinine 0.59(L) 0.70 - 1.30 mg/dL LAB CHEMISTRY METHOD 2024 2:15 PM [facility] LAB eGFR 105 >=60 mL/min/1. 73m2 LAB CHEMISTRY METHOD 2024 2:15 PM [facility] LAB Comment:Calculation based on the Chronic Kidney Disease Epidemiology Collaboration (CKD-EPI) equation refit without adjustment for race. BUN/Creatinine Ratio 20.3 LAB CHEMISTRY METHOD 2024 2:15 PM [facility] LAB Calcium 8.0(L) 8.5 - 10.5 mg/dL LAB CHEMISTRY METHOD 2024 2:15 PM [facility] LAB AST (SGOT) 17 10 - 42 unit/L LAB CHEMISTRY METHOD 2024 2:15 PM [facility] LAB ALT (SGPT) 11 10 - 60 unit/L LAB CHEMISTRY METHOD 2024 2:15 PM [facility] LAB Alkaline Phosphatase 78 42 - 121 unit/L LAB CHEMISTRY METHOD 2024 2:15 PM [facility] Total Protein 6.3 6.0 - 8.0 g/dL LAB CHEMISTRY METHOD 2024 2:15 PM [facility] LAB Albumin 2.7(L) 3.2 - 5.0 g/dL LAB CHEMISTRY METHOD 2024 2:15 PM [facility] LAB Total Bilirubin 0.7 0.0 - 1.4 mg/dL LAB CHEMISTRY METHOD 2024 2:15 PM [facility] LAB Blood Venous blood specimen / Unknown Venipuncture / Unknown 2024 11:01 AM EDT 2024 12:03 PM EDT us Acacia Laba Elder MD LAB BLOOD ORDERABLES Fin al Result [facility] [address] [place] [address], * (ABNORMAL) Complete blood count (2024 11:01 AM EDT) WBC 5.7 4.8 - 10.8 K/mcL LAB HEMETOLOGY METHOD 2024 1:59 PM EDT [facility] LAB RBC 3.60(L) 4.50 - 5.50 M/mcL LAB HEMETOLOGY METHOD 2024 1:59 PM EDT [facility] LAB Hemoglobin 11.6(L) 13.5 - 17.5 g/dL LAB HEMETOLOGY METHOD 2024 1:59 PM EDT [facility] LAB Hematocrit 32.7(L) 42.0 - 54.0 % LAB HEMETOLOGY METHOD 2024 1:59 PM EDT [facility] LAB MCV 91.6 79.0 - 98.0 FL LAB HEMETOLOGY METHOD 2024 1:59 PM EDT [facility] LAB MCH 32.5(H) 27.0 - 32.0 pcg LAB HEMETOLOGY METHOD 2024 1:59 PM EDT [facility] LAB MCHC 35.5 32.0 - 37.0 g/dL LAB HEMETOLOGY METHOD 2024 1:59 PM EDT [facility] LAB RDW 13.0 11.0 - 15.0 % LAB HEMETOLOGY METHOD 2024 1:59 PM EDT [facility] LAB Platelets 156 130 - 400 K/mcL LAB HEMETOLOGY METHOD 2024 1:59 PM EDT [facility] LAB MPV 9.2 7.0 - 11.0 FL LAB HEMETOLOGY METHOD 2024 1:59 PM EDT [facility] LAB NRBC 0.0 <1.0 % LAB HEMETOLOGY METHOD 2024 1:59 PM EDT [facility] LAB NRBC Absolute 0.00 <0.10 K/mcL LAB HEMETOLOGY METHOD 2024 1:59 PM EDT [facility] LAB Blood Venous blood specimen / Unknown Venipuncture / Unknown 2024 11:01 AM EDT 2024 12:03 PM EDT us Geena Lee MD LAB BLOOD ORDERABLES Fin al Result [facility] [address] [place] [address], documented in this encounter Visit Diagnoses Diagnosis Fracture of unspecified part of neck of left femur, initial encounter for closed fracture (CMS/HCC V24, CMS/HCC V28) documented in this encounter Care Teams Berry Picker Relationship Specialty Start Date End Date Geena Lee MD [address] [phone] PCP - General Family Medicine 03/20/24 documented as of this encounter
--- OUTSIDE RECORDS SUMMARY | 2025-04-03 20:44 | XMS_ITS | Encounter Summary ---
Author Organization [facility] Address [address] [place] [address] Care Team Providers Care Breaker Up Name Role Phone Geena Lee MD Primary Care Provider + Encounter Details Date Type Department Care Team (Late st Contact Info) Description 02/28/[address] [facility] - Main Lab [address] [place] [address] Geena Lee MD [address] [phone] Essential (primary) hypertension Social History Tobacco Use [...] Associated Diagnosis Comments COMPLETE BLOOD COUNT Routine 03/03/2025 9:18 AM EST Essential (primary) hypertension COMPREHENSIVE METABOLIC PANEL Routine 03/03/2025 9:18 AM EST Essential (primary) hypertension documented in this encounter Results * (ABNORMAL) Complete blood count (03/03/2025 9:18 AM EST) [facility] Signature WBC 4.7(L) 4.8 - 10.8 K/mcL LAB HEMETOLOGY METHOD 03/03/2025 11:11 AM EST [facility] LAB RBC 3.50(L) 4.50 - 5.50 M/mcL LAB HEMETOLOGY METHOD 03/03/2025 11:[address] [facility] LAB Hemoglobin 10.6(L) 13.5 - 17.5 g/dL LAB HEMETOLOGY METHOD 03/03/2025 11:[address] [facility] LAB Hematocrit 30.9(L) 42.0 - 54.0 % LAB HEMETOLOGY METHOD 03/03/2025 11:[address] [facility] LAB MCV 89.0 79.0 - 98.0 FL LAB HEMETOLOGY METHOD 03/03/2025 11:[address] [facility] LAB MCH 30.5 27.0 - 32.0 pcg LAB HEMETOLOGY METHOD 03/03/2025 11:[address] [facility] LAB MCHC 34.3 32.0 - 37.0 g/dL LAB HEMETOLOGY METHOD 03/03/2025 11:[address] [facility] LAB RDW 15.4(H) 11.0 - 15.0 % LAB HEMETOLOGY METHOD 03/03/2025 11:[address] [facility] LAB Platelets 150 130 - 400 K/mcL LAB HEMETOLOGY METHOD 03/03/2025 11:[address] [facility] LAB MPV 9.6 7.0 - 11.0 FL LAB HEMETOLOGY METHOD 03/03/2025 11:[address] [facility] LAB NRBC 0.0 <1.0 % LAB HEMETOLOGY METHOD 03/03/2025 11:[address] [facility] LAB NRBC Absolute 0.00 <0.10 K/mcL LAB HEMETOLOGY METHOD 03/03/2025 11:[address] [facility] LAB Blood Venous blood specimen / Unknown Venipuncture / Unknown 03/03/2025 9:18 AM EST 03/03/2025 10:55 AM EST us Geena Lee MD LAB BLOOD ORDERABLES Fin al Result [facility] [address] [place] [address], * (ABNORMAL) Comprehensive metabolic panel (03/03/2025 9:18 AM EST) Sodium 128(L) 133 - 145 mmol/L LAB CHEMISTRY METHOD 03/03/2025 12:[address] [facility] LAB Potassium 4.1 3.5 - 5.5 mmol/L LAB CHEMISTRY METHOD 03/03/2025 12:[address] [facility] LAB Chloride 95(L) 96 - 110 mmol/L LAB CHEMISTRY METHOD 03/03/2025 12:[address] [facility] LAB CO2 26 21 - 32 mmol/L LAB CHEMISTRY METHOD 03/03/2025 12:[address] [facility] LAB Anion Gap 7 3 - 11 LAB CHEMISTRY METHOD 03/03/2025 12:[address] [facility] LAB Glucose 94 70 - 100 mg/dL LAB CHEMISTRY METHOD 03/03/2025 12:[address] [facility] BUN 12 5 - 25 mg/dL LAB CHEMISTRY METHOD 03/03/2025 12:[address] [facility] LAB Creatinine 0.83 0.70 - 1.30 mg/dL LAB CHEMISTRY METHOD 03/03/2025 12:[address] [facility] LAB eGFR 95 >=60 mL/min/1. 73m2 LAB CHEMISTRY METHOD 03/03/2025 12:[address] [facility] LAB Comment:Calculation based on the Chronic Kidney Disease Epidemiology Collaboration (CKD-EPI) equation refit without adjustment for race. BUN/Creatinine Ratio 14.5 LAB CHEMISTRY METHOD 03/03/2025 12:[address] [facility] LAB Calcium 8.4(L) 8.5 - 10.5 mg/dL LAB CHEMISTRY METHOD 03/03/2025 12:[address] [facility] LAB AST (SGOT) 12 10 - 42 unit/L LAB CHEMISTRY METHOD 03/03/2025 12:[address] [facility] LAB ALT (SGPT) 16 10 - 60 unit/L LAB CHEMISTRY METHOD 03/03/2025 12:[address] [facility] LAB Alkaline Phosphatase 84 42 - 121 unit/L LAB CHEMISTRY METHOD 03/03/2025 12:[address] [facility] LAB Total Protein 6.4 6.0 - 8.0 g/dL LAB CHEMISTRY METHOD 03/03/2025 12:[address] [facility] LAB Albumin 2.7(L) 3.2 - 5.0 g/dL LAB CHEMISTRY METHOD 03/03/2025 12:[address] [facility] LAB Total Bilirubin 0.5 0.0 - 1.4 mg/dL LAB CHEMISTRY METHOD 03/03/2025 12:[address] [facility] LAB Blood Venous blood specimen / Unknown Venipuncture / Unknown 03/03/2025 9:18 AM EST 03/03/2025 10:55 AM EST us Geena Lee MD LAB BLOOD ORDERABLES Fin al Result [facility] [address] [place] [address], documented in this encounter Visit Diagnoses Diagnosis Essential (primary) hypertension Unspecified essential hypertension documented in this encounter Care Teams Breaker Up Relationship Specialty Start Date End Date Geena Lee MD [address] [place] [phone] PCP - General Family Medicine 03/20/24 documented as of this encounter
--- OUTSIDE RECORDS SUMMARY | 2025-04-03 20:44 | XMS_ITS | Encounter Summary ---
Author Organization [facility] Address [address] [place] [address] Care Team Providers Care Senior Technical Analyst Name Role Phone Geena Lee MD Primary Care Provider + Encounter Details Date Type Department Care Team (Late st Contact Info) Description 01/18/2025 Lab Requisition [facility] - Main Lab [address] [place] [address] Geena Lee MD [address] [address] Essential (primary) hypertension Social History [...] Associated Diagnosis Comments COMPLETE BLOOD COUNT Routine 01/20/2025 8:45 AM EDT Essential (primary) hypertension COMPREHENSIVE METABOLIC PANEL Routine 01/20/2025 8:45 AM EDT Essential (primary) hypertension documented in this encounter Results * (ABNORMAL) Complete blood count (01/20/2025 8:45 AM EDT) WBC 7.7 4.8 - 10.8 K/[facility] LAB HEMETOLOGY METHOD 01/20/2025 12:05 PM EDT [facility] LAB RBC 4.50 4.50 - 5.50 M/mcL LAB HEMETOLOGY METHOD 01/20/2025 12:05 PM [facility] LAB Hemoglobin 13.3(L) 13.5 - 17.5 g/dL LAB HEMETOLOGY METHOD 01/20/2025 12:05 PM [facility] LAB Hematocrit 39.3(L) 42.0 - 54.0 % LAB HEMETOLOGY METHOD 01/20/2025 12:05 PM [facility] LAB MCV 88.1 79.0 - 98.0 FL LAB HEMETOLOGY METHOD 01/20/2025 12:05 PM [facility] LAB MCH 29.8 27.0 - 32.0 pcg LAB HEMETOLOGY METHOD 01/20/2025 12:05 PM [facility] LAB MCHC 33.8 32.0 - 37.0 g/dL LAB HEMETOLOGY METHOD 01/20/2025 12:05 PM [facility] LAB RDW 17.0(H) 11.0 - 15.0 % LAB HEMETOLOGY METHOD 01/20/2025 12:05 PM [facility] LAB Platelets 248 130 - 400 K/mcL LAB HEMETOLOGY METHOD 01/20/2025 12:05 PM [facility] LAB MPV 9.6 7.0 - 11.0 FL LAB HEMETOLOGY METHOD 01/20/2025 12:05 PM [facility] LAB NRBC 0.0 <1.0 % LAB HEMETOLOGY METHOD 01/20/2025 12:05 PM [facility] LAB NRBC Absolute 0.00 <0.10 K/mcL LAB HEMETOLOGY METHOD 01/20/2025 12:05 PM [facility] LAB Blood Venous blood specimen / Unknown Venipuncture / Unknown 01/20/2025 8:45 AM EDT 01/20/2025 10:46 AM EDT us Geena Lee MD LAB BLOOD ORDERABLES Fin al Result [facility] [address] [place] [address], [place] [phone] * (ABNORMAL) Comprehensive metabolic panel (01/20/2025 8:45 AM EDT) Sodium 136 133 - 145 mmol/L LAB CHEMISTRY METHOD 01/20/2025 1:55 PM [facility] LAB Potassium 2.9(LL) 3.5 - 5.5 mmol/L LAB CHEMISTRY METHOD 01/20/2025 1:55 PM [facility] LAB Chloride 98 96 - 110 mmol/L LAB CHEMISTRY METHOD 01/20/2025 1:55 PM [facility] LAB CO2 26 21 - 32 mmol/L LAB CHEMISTRY METHOD 01/20/2025 1:55 PM [facility] LAB Anion Gap 12(H) 3 - 11 LAB CHEMISTRY METHOD 01/20/2025 1:55 PM [facility] LAB Glucose 68(L) 70 - 100 mg/dL LAB CHEMISTRY METHOD 01/20/2025 1:55 PM [facility] LAB BUN 11 5 - 25 mg/dL LAB CHEMISTRY METHOD 01/20/2025 1:55 PM [facility] LAB Creatinine 0.61(L) 0.70 - 1.30 mg/dL LAB CHEMISTRY METHOD 01/20/2025 1:55 PM [facility] LAB eGFR 104 >=60 mL/min/1. 73m2 LAB CHEMISTRY METHOD 01/20/2025 1:55 PM [facility] LAB Comment:Calculation based on the Chronic Kidney Disease Epidemiology Collaboration (CKD-EPI) equation refit without adjustment for race. BUN/Creatinine Ratio 18.0 LAB CHEMISTRY METHOD 01/20/2025 1:55 PM [facility] LAB Calcium 8.5 8.5 - 10.5 mg/dL LAB CHEMISTRY METHOD 01/20/2025 1:55 PM EDT [facility] AST (SGOT) 12 10 - 42 unit/L LAB CHEMISTRY METHOD 01/20/2025 1:55 PM EDT [facility] LAB ALT (SGPT) 16 10 - 60 unit/L LAB CHEMISTRY METHOD 01/20/2025 1:55 PM EDT [facility] LAB Alkaline Phosphatase 89 42 - 121 unit/L LAB CHEMISTRY METHOD 01/20/2025 1:55 PM EDT [facility] Total Protein 6.2 6.0 - 8.0 g/dL LAB CHEMISTRY METHOD 01/20/2025 1:55 PM T [facility] Albumin 2.8(L) 3.2 - 5.0 g/dL LAB CHEMISTRY METHOD 01/20/2025 1:55 PM EDT [facility] Total Bilirubin 0.4 0.0 - 1.4 mg/dL LAB CHEMISTRY METHOD 01/20/2025 1:55 PM T [facility] Blood Venous blood specimen / Unknown Venipuncture / Unknown 01/20/2025 8:45 AM EDT 01/20/2025 10:47 AM EDT us Geena Lee MD LAB BLOOD ORDERABLES Fin al Result [facility] [address] [place] [address], documented in this encounter Visit Diagnoses Diagnosis Essential (primary) hypertension Unspecified essential hypertension documented in this encounter Care Teams Senior Technical Analyst Relationship Specialty Start Date End Date Geena Lee MD [address] [place] [phone] PCP - General Family Medicine 03/20/24 documented as of this encounter
--- OUTSIDE RECORDS SUMMARY | 2025-04-03 20:44 | XMS_ITS | Encounter Summary ---
Author Organization [facility] Address [address] [place] [address] Care Team Providers Care Structural Iron Worker Name Role Phone Geena Lee MD Primary Care Provider + Encounter Details Date Type Department Care Team (Late st Contact Info) Description 11/08/2024 Lab Requisition [facility] - Main Lab [address] [place] [address] Geena Lee MD [address] [phone] Essential (primary) hypertension Social History Tobacco Use [...] AM EDT) WBC 6.2 4.8 - 10.8 K/[facility] LAB HEMETOLOGY METHOD 11/11/2024 12:35 PM EDT [facility] RBC 3.90(L) 4.50 - 5.50 M/mcL LAB HEMETOLOGY METHOD 11/11/2024 12:35 PM EDT [facility] Hemoglobin 11.2(L) 13.5 - 17.5 g/dL LAB HEMETOLOGY METHOD 11/11/2024 12:35 PM [facility] LAB Hematocrit 32.7(L) 42.0 - 54.0 % LAB HEMETOLOGY METHOD 11/11/2024 12:35 PM T [facility] MCV 84.3 79.0 - 98.0 FL LAB HEMETOLOGY METHOD 11/11/2024 12:35 PM [facility] LAB MCH 28.9 27.0 - 32.0 pcg LAB HEMETOLOGY METHOD 11/11/2024 12:35 PM [facility] LAB MCHC 34.3 32.0 - 37.0 g/dL LAB HEMETOLOGY METHOD 11/11/2024 12:35 PM [facility] LAB RDW 13.7 11.0 - 15.0 % LAB HEMETOLOGY METHOD 11/11/2024 12:35 PM [facility] LAB Platelets 252 130 - 400 K/mcL LAB HEMETOLOGY METHOD 11/11/2024 12:35 PM [facility] LAB MPV 9.8 7.0 - 11.0 FL LAB HEMETOLOGY METHOD 11/11/2024 12:35 PM [facility] LAB NRBC 0.0 <1.0 % LAB HEMETOLOGY METHOD 11/11/2024 12:35 PM [facility] LAB NRBC Absolute 0.00 <0.10 K/mcL LAB HEMETOLOGY METHOD 11/11/2024 12:35 PM [facility] Blood Venous blood specimen / Unknown Venipuncture / Unknown 11/11/2024 10:04 AM EDT 11/11/2024 11:21 AM EDT us Geena Lee MD LAB BLOOD ORDERABLES Fin al Result [facility] [address] [place] [address], [place] [phone] * (ABNORMAL) Comprehensive metabolic panel (11/11/2024 10:04 AM EDT) Sodium 126(L) 133 - 145 mmol/L LAB CHEMISTRY METHOD [facility] Potassium 3.6 3.5 - 5.5 mmol/L LAB CHEMISTRY METHOD 11/11/2024 1:13 PM [facility] Chloride 92(L) 96 - 110 mmol/L LAB CHEMISTRY METHOD 11/11/2024 1:13 PM [facility] CO2 25 21 - 32 mmol/L LAB CHEMISTRY METHOD 11/11/2024 1:13 PM [facility] Anion Gap 9 3 - 11 LAB CHEMISTRY METHOD 11/11/2024 1:13 PM [facility] Glucose 73 70 - 100 mg/dL LAB CHEMISTRY METHOD 11/11/2024 1:13 PM [facility] BUN 8 5 - 25 mg/dL LAB CHEMISTRY METHOD 11/11/2024 1:13 PM [facility] Creatinine 0.60(L) 0.70 - 1.30 mg/dL LAB CHEMISTRY METHOD 11/11/2024 1:13 PM [facility] LAB eGFR 104 >=60 mL/min/1. 73m2 LAB CHEMISTRY METHOD 11/11/2024 1:13 PM [facility] Comment:Calculation based on the Chronic Kidney Disease Epidemiology Collaboration (CKD-EPI) equation refit without adjustment for race. BUN/Creatinine Ratio 13.3 LAB CHEMISTRY METHOD 11/11/2024 1:13 PM [facility] Calcium 8.8 8.5 - 10.5 mg/dL LAB CHEMISTRY METHOD 11/11/2024 1:13 PM EDT [facility] AST (SGOT) 21 10 - 42 unit/L LAB CHEMISTRY METHOD 11/11/2024 1:13 PM EDT [facility] ALT (SGPT) 18 10 - 60 unit/L LAB CHEMISTRY METHOD 11/11/2024 1:13 PM EDT [facility] Alkaline Phosphatase 83 42 - 121 unit/L LAB CHEMISTRY METHOD 11/11/2024 1:13 PM EDT [facility] Total Protein 6.9 6.0 - 8.0 g/dL LAB CHEMISTRY METHOD 11/11/2024 1:13 PM T [facility] Albumin 3.5 3.2 - 5.0 g/dL LAB CHEMISTRY METHOD 11/11/2024 1:13 PM T [facility] Total Bilirubin 0.7 0.0 - 1.4 mg/dL LAB CHEMISTRY METHOD 11/11/2024 1:13 PM EDT [facility] Blood Venous blood specimen / Unknown Venipuncture / Unknown 11/11/2024 10:04 AM EDT 11/11/2024 11:21 AM EDT us Geena Lee MD LAB BLOOD ORDERABLES Fin al Result [facility] [address] [place] [address], documented in this encounter Visit Diagnoses Diagnosis Essential (primary) hypertension Unspecified essential hypertension documented in this encounter Care Teams Structural Iron Worker Relationship Specialty Start Date End Date Geena Lee MD [address] [place] [phone] PCP - General Family Medicine 03/20/24 documented as of this encounter
--- OUTSIDE RECORDS SUMMARY | 2025-04-03 20:44 | XMS_ITS | Encounter Summary ---
Author Organization [facility] Address [address] [place] [address] Care Team Providers Care Factory Supervisor Name Role Phone Geena Lee MD Primary Care Provider + Encounter Details Date Type Department Care Team (Late st Contact Info) Description 10/04/2024 Lab Requisition [facility] - Main Lab [address] [place] [address] Geena Lee MD [address] [phone] Essential (primary) hypertension Social History Tobacco Use [...] LAB CHEMISTRY METHOD 10/07/2024 11:42 AM EDT [facility] LAB Potassium 4.0 3.5 - 5.5 mmol/L [...] LAB CHEMISTRY METHOD 10/07/2024 11:42 AM T [facility] Albumin 3.2 3.2 - 5.0 g/dL LAB CHEMISTRY METHOD 10/07/2024 11:42 AM EDT [facility] Total Bilirubin 0.6 0.0 - 1.4 mg/dL LAB CHEMISTRY METHOD 10/07/2024 11:42 AM EDT [facility] Blood Venous blood specimen / Unknown Venipuncture / Unknown 10/07/2024 8:24 AM EDT 10/07/2024 10:27 AM EDT us Geena Lee MD LAB BLOOD ORDERABLES Fin al Result [facility] [address] [place] [address], * (ABNORMAL) Complete blood count (10/07/2024 8:24 [...] LAB HEMETOLOGY METHOD 10/07/2024 11:09 AM EDT [facility] MCHC 32.8 32.0 - 37.0 g/dL LAB HEMETOLOGY METHOD 10/07/2024 11:09 AM EDT [facility] RDW 15.0 11.0 - 15.0 % LAB HEMETOLOGY METHOD 10/07/2024 11:09 AM EDT [facility] Platelets 217 130 - 400 K/mcL LAB HEMETOLOGY METHOD 10/07/2024 11:09 AM EDT [facility] MPV 9.2 7.0 - 11.0 FL LAB HEMETOLOGY METHOD 10/07/2024 11:09 AM EDT [facility] NRBC 0.0 <1.0 % LAB HEMETOLOGY METHOD 10/07/2024 11:09 AM EDT [facility] NRBC Absolute 0.00 <0.10 K/mcL LAB HEMETOLOGY METHOD 10/07/2024 11:09 AM T [facility] Blood Venous blood specimen / Unknown Venipuncture / Unknown 10/07/2024 8:24 AM EDT 10/07/2024 10:27 AM EDT us Geena Lee MD LAB BLOOD ORDERABLES Fin al Result [facility] [address] [place] [address], documented in this encounter Visit Diagnoses Diagnosis Essential (primary) hypertension Unspecified essential hypertension documented in this encounter Care Teams Factory Supervisor Relationship Specialty Start Date End Date Geena Lee MD [address] [place] [phone] PCP - General Family Medicine 03/20/24 documented as of this encounter
--- OUTSIDE RECORDS SUMMARY | 2025-04-03 20:44 | XMS_ITS | Encounter Summary ---
Author Organization [facility] Address [address] [place] [address] Care Team Providers Care Company Secretary Name Role Phone Geena Lee MD Primary Care Provider + Encounter Details Date Type Department Care Team (Late st Contact Info) Description 11/14/2024 Lab Requisition [facility] - Main Lab [address] [place] [address] Geena Lee MD [address] [address] Syndrome of inappropriate secretion of [...] LAB CHEMISTRY METHOD 11/15/2024 10:15 AM EDT [facility] Blood Venous blood specimen / Unknown Venipuncture / Unknown 11/15/2024 5:14 AM EDT 11/15/2024 9:37 AM EDT Geena Lee MD LAB BLOOD ORDERABLES Fin al Result [facility] [address] [place] [address], documented in this encounter Visit Diagnoses Diagnosis 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
--- OUTSIDE RECORDS SUMMARY | 2025-04-03 20:44 | XMS_ITS | Encounter Summary ---
Author Organization [facility] Address [address] [place] [address] Care Team Providers Care Hoof Trimmer Name Role Phone Geena Lee MD Primary Care Provider + Encounter Details Date Type Department Care Team (Late st Contact Info) Description 01/22/2025 Lab Requisition [facility] - Main Lab [address] [place] [address] Geena Lee MD [address] [address] Essential (primary) hypertension; Chronic kidney disease, unspecified [...] Priority Date/Time Associated Diagnosis Comments SODIUM Routine 01/23/2025 5:48 AM EDT Essential (primary) hypertension Chronic kidney disease, unspecified documented in this encounter Results * Sodium (01/23/2025 5:48 AM EDT) Sodium 135 133 - 145 mmol/L LAB CHEMISTRY METHOD 01/23/2025 8:12 AM EDT [facility] Blood Venous blood specimen / Unknown Venipuncture / Unknown 01/23/2025 5:48 AM EDT 01/23/2025 7:37 AM EDT us Geena Lee MD LAB BLOOD ORDERABLES Fin al Result [facility] [address] [place] [address], [place] [phone] documented in this encounter Visit Diagnoses Diagnosis Essential (primary) hypertension Unspecified essential hypertension Chronic kidney disease, unspecified documented in this encounter Care Teams Hoof Trimmer Relationship Specialty Start Date End Date Geena Lee MD [address] [phone] PCP - General Family Medicine 03/20/24 documented as of this encounter
--- OUTSIDE RECORDS SUMMARY | 2025-04-03 20:44 | XMS_ITS | Encounter Summary ---
Author Organization [facility] Address [address] [place] [address] Care Team Providers Care Model Builder Name Role Phone Geena Lee MD Primary Care Provider + Encounter Details Date Type Department Care Team (Late st Contact Info) Description 03/13/[address] [facility] - Main Lab [address] [facility] [place] [place] [address] Geena Lee MD [address] [address] Chronic kidney disease, unspecified; Essential [...] Procedure Name Priority Date/Time Associated Diagnosis Comments CBC WITH AUTO DIFFERENTIAL Routine 03/13/2025 5:42 AM EST Chronic kidney disease, unspecified Essential (primary) hypertension CREATININE, SERUM Routine 03/13/2025 5:4 2 AM EST Chronic kidney disease, unspecified Essential (primary) hypertension ACTIVATED PARTIAL THROMBOPLASTIN TIME Routine 03/13/2025 5:42 AM EST Chronic kidney disease, unspecified Essential (primary) hypertension CBC AND DIFFERENTIAL Routine 03/13/2025 5:42 AM EST Chronic kidney disease, unspecified Essential (primary) hypertension BUN Routine 03/13/2025 5:42 AM EST Chronic kidney disease, unspecified Essential (primary) hypertension HEMOGLOBIN A1C Routine 03/13/2025 5:42 AM EST Chronic kidney disease, unspecified Essential (primary) hypertension ELECTROLYTE PANEL Routine 03/13/2025 5:4 2 AM EST Chronic kidney disease, unspecified Essential (primary) hypertension documented in this encounter Results * (ABNORMAL) CBC auto differential (03/13/2025 5:42 AM EST) WBC 5.5 4.8 - 10.8 K/mcL LAB HEMETOLOGY METHOD 03/13/2025 10:39 AM [facility] LAB RBC 4.00(L) 4.50 - 5.50 M/mcL LAB HEMETOLOGY METHOD 03/13/2025 10:39 AM [facility] Hemoglobin 12.4(L) 13.5 - 17.5 g/dL LAB HEMETOLOGY METHOD 03/13/2025 10:39 AM [facility] Hematocrit 35.9(L) 42.0 - 54.0 % LAB HEMETOLOGY METHOD 03/13/2025 10:39 AM [facility] LAB MCV 89.1 79.0 - 98.0 FL LAB HEMETOLOGY METHOD 03/13/2025 10:39 AM [facility] LAB MCH 30.8 27.0 - 32.0 pcg LAB HEMETOLOGY METHOD 03/13/2025 10:39 AM [facility] MCHC 34.5 32.0 - 37.0 g/dL LAB HEMETOLOGY METHOD 03/13/2025 10:39 AM [facility] RDW 15.4(H) 11.0 - 15.0 % LAB HEMETOLOGY METHOD 03/13/2025 10:39 AM [facility] Platelets 224 130 - 400 K/mcL LAB HEMETOLOGY METHOD 03/13/2025 10:39 AM [facility] MPV 9.8 7.0 - 11.0 FL LAB HEMETOLOGY METHOD 03/13/2025 10:39 AM [facility] NRBC 0.0 <1.0 % LAB HEMETOLOGY METHOD 03/13/2025 10:39 AM [facility] NRBC Absolute 0.00 <0.10 K/mcL LAB HEMETOLOGY METHOD 03/13/2025 10:39 AM [facility] Neutrophils Relative 56.5 % LAB HEMETOLOGY METHOD 03/13/2025 10:39 AM [facility] Lymphocytes Relative 27.6 % LAB HEMETOLOGY METHOD 03/13/2025 10:39 AM [facility] Monocytes Relative 10.0 % LAB HEMETOLOGY METHOD 03/13/2025 10:39 AM [facility] Eosinophils Relative 5.1 % LAB HEMETOLOGY METHOD 03/13/2025 10:39 AM [facility] Basophils Relative 0.4 % LAB HEMETOLOGY METHOD 03/13/2025 10:39 AM [facility] Immature Granulocytes Relative 0.4 % LAB HEMETOLOGY METHOD 03/13/2025 10:39 AM [facility] Neutrophils Absolute 3.12 1.50 - 7.00 K/mcL LAB HEMETOLOGY METHOD 03/13/2025 10:39 AM [facility] Lymphocytes Absolute 1.52 1.00 - 5.00 K/mcL LAB HEMETOLOGY METHOD 03/13/2025 10:39 AM [facility] Monocytes Absolute 0.55 0.20 - 1.00 K/mcL LAB HEMETOLOGY METHOD 03/13/2025 10:39 AM [facility] Eosinophils Absolute 0.28 0.00 - 0.50 K/[facility] LAB HEMETOLOGY METHOD 03/13/2025 10:39 AM EST [facility] Basophils Absolute 0.02 0.00 - 0.20 K/[facility] LAB HEMETOLOGY METHOD 03/13/2025 10:39 AM EST [facility] Immature Granulocytes Absolute 0.02 0.00 - 0.03 /[facility] LAB HEMETOLOGY METHOD 03/13/2025 10:39 AM EST [facility] Blood Venous blood specimen / Unknown Venipuncture / Unknown 03/13/2025 5:42 AM EST 03/13/2025 9:40 AM EST Geena Lee MD LAB BLOOD ORDERABLES Fin al Result Performing Organization Address City/[facility]/ZIP Co de Phone Number [facility] [address] [place] [address], [place] [phone] * (ABNORMAL) Activated partial thromboplastin time (03/13/2025 5:42 AM EST) aPTT 40.5(H) 24.1 - 39.3 sec LAB COAGULATION METHOD 03/13/2025 10:36 AM EST [facility] Blood Venous blood specimen / Unknown Venipuncture / Unknown 03/13/2025 5:42 AM EST 03/13/2025 9:40 AM EST Geena Lee MD LAB BLOOD ORDERABLES Fin al Result [facility] [address] [place] [address], [place] [phone] * Hemoglobin A1c (03/13/2025 5:42 AM EST) Hemoglobin A1C 4.7 <6.5 % LAB CHEMISTRY METHOD 03/13/2025 12:31 PM EST [facility] Mean Bld Glu Estim. 88 mg/dL LAB CHEMISTRY METHOD 03/13/2025 12:31 PM EST [facility] Blood Venous blood specimen / Unknown Venipuncture / Unknown 03/13/2025 5:42 AM EST 03/13/2025 9:40 AM EST Geena Lee MD LAB BLOOD ORDERABLES Fin al Result [facility] [address] [place] [address], [place] [phone] * (ABNORMAL) Creatinine (03/13/2025 5:42 AM EST) Creatinine 0.60(L) 0.70 - 1.30 mg/dL 03/13/2025 11:34 AM EST [facility] eGFR 104 >=60 mL/min/1. 73m2 03/13/2025 11:34 AM EST [facility] Comment:Calculation based on the Chronic Kidney Disease Epidemiology Collaboration (CKD-EPI) equation refit without adjustment for race. Blood Venous blood specimen / Unknown Venipuncture / Unknown 03/13/2025 5:42 AM EST 03/13/2025 9:40 AM EST Geena Lee MD LAB BLOOD ORDERABLES Fin al Result [facility] [address] [place] [address], [place] [phone] * BUN (03/13/2025 5:42 AM EST) BUN 9 5 - 25 mg/dL 03/13/2025 11:33 AM EST [facility] Blood Venous blood specimen / Unknown Venipuncture / Unknown 03/13/2025 5:42 AM EST 03/13/2025 9:40 AM EST Geena Lee MD LAB BLOOD ORDERABLES Fin al Result Performing Organization Address City/[facility]/ZIP Co de Phone Number [facility] [address] [place] [address], [place] [phone] * (ABNORMAL) Electrolyte panel (03/13/2025 5:42 AM EST) Sodium 127(L) 133 - 145 mmol/L 03/13/2025 11:28 AM EST [facility] Potassium 3.9 3.5 - 5.5 mmol/L 03/13/2025 11:28 AM EST [facility] Chloride 89(L) 96 - 110 mmol/L 03/13/2025 11:28 AM EST [facility] CO2 28 21 - 32 mmol/L 03/13/2025 11:28 AM EST [facility] Anion Gap 10 3 - 11 03/13/2025 11:28 AM EST [facility] Blood Venous blood specimen / Unknown Venipuncture / Unknown 03/13/2025 5:42 AM EST 03/13/2025 9:40 AM EST us Geena Lee MD LAB BLOOD ORDERABLES Fin al Result Performing Organization Address City/[facility]/ZIP Co de Phone Number [facility] [address] [place] [address], [place] [phone] documented in this encounter Visit Diagnoses Diagnosis Chronic kidney disease, unspecified Essential (primary) hypertension Unspecified essential hypertension documented in this encounter Care Teams Model Builder Relationship Specialty Start Date End Date Geena Lee MD [address] [place] [phone] PCP - General Family Medicine 03/20/24 documented as of this encounter
--- OUTSIDE RECORDS SUMMARY | 2025-04-03 20:44 | XMS_ITS | Encounter Summary ---
Author Organization [facility] Address [address] [place] [address] Care Team Providers Care Aircraft Engine Dismantler Name Role Phone Geena Lee MD Primary Care Provider + Encounter Details Date Type Department Care Team (Late st Contact Info) Description 01/24/2025 Lab Requisition [facility] - Main Lab [address] [place] [address] Geena Lee MD [address] [phone] Essential (primary) hypertension Social History [...] Associated Diagnosis Comments COMPLETE BLOOD COUNT Routine 01/27/2025 9:42 AM EDT Essential (primary) hypertension COMPREHENSIVE METABOLIC PANEL Routine 01/27/2025 9:42 AM EDT Essential (primary) hypertension documented in this encounter Results * (ABNORMAL) Complete blood count (01/27/2025 9:42 AM EDT) WBC 9.3 4.8 - 10.8 K/[facility] LAB HEMETOLOGY METHOD 01/27/2025 12:17 PM EDT [facility] RBC 4.00(L) 4.50 - 5.50 M/mcL LAB HEMETOLOGY METHOD 01/27/2025 12:17 PM [facility] Hemoglobin 12.0(L) 13.5 - 17.5 g/dL LAB HEMETOLOGY METHOD 01/27/2025 12:17 PM [facility] Hematocrit 36.0(L) 42.0 - 54.0 % LAB HEMETOLOGY METHOD 01/27/2025 12:17 PM [facility] MCV 89.6 79.0 - 98.0 FL LAB HEMETOLOGY METHOD 01/27/2025 12:17 PM [facility] MCH 29.9 27.0 - 32.0 pcg LAB HEMETOLOGY METHOD 01/27/2025 12:17 PM [facility] MCHC 33.3 32.0 - 37.0 g/dL LAB HEMETOLOGY METHOD 01/27/2025 12:17 PM [facility] RDW 17.0(H) 11.0 - 15.0 % LAB HEMETOLOGY METHOD 01/27/2025 12:17 PM [facility] Platelets 119(L) 130 - 400 K/mcL LAB HEMETOLOGY METHOD 01/27/2025 12:17 PM [facility] MPV 10.1 7.0 - 11.0 FL LAB HEMETOLOGY METHOD 01/27/2025 12:17 PM [facility] NRBC 0.0 <1.0 % LAB HEMETOLOGY METHOD 01/27/2025 12:17 PM [facility] NRBC Absolute 0.00 <0.10 K/mcL LAB HEMETOLOGY METHOD 01/27/2025 12:17 PM [facility] Blood Venous blood specimen / Unknown Venipuncture / Unknown 01/27/2025 9:42 AM EDT 01/27/2025 10:52 AM EDT us Geena Lee MD LAB BLOOD ORDERABLES Fin al Result [facility] [address] [place] [address], [place] [phone] * (ABNORMAL) Comprehensive metabolic panel (01/27/2025 9:42 AM EDT) Pathologist [facility] Sodium 140 133 - 145 mmol/L LAB CHEMISTRY METHOD 01/27/2025 12:19 PM [facility] Potassium 3.4(L) 3.5 - 5.5 mmol/L LAB CHEMISTRY METHOD 01/27/2025 12:19 PM [facility] Chloride 104 96 - 110 mmol/L LAB CHEMISTRY METHOD 01/27/2025 12:19 PM [facility] CO2 28 21 - 32 mmol/L LAB CHEMISTRY METHOD 01/27/2025 12:19 PM [facility] Comment:Results verified by repeat testing Anion Gap 8 3 - 11 LAB CHEMISTRY METHOD 01/27/2025 12:19 PM [facility] Glucose 76 70 - 100 mg/dL LAB CHEMISTRY METHOD 01/27/2025 12:19 PM [facility] BUN 8 5 - 25 mg/dL LAB CHEMISTRY METHOD 01/27/2025 12:19 PM [facility] Creatinine 0.54(L) 0.70 - 1.30 mg/dL LAB CHEMISTRY METHOD 01/27/2025 12:19 PM [facility] eGFR 108 >=60 mL/min/1. 73m2 LAB CHEMISTRY METHOD 01/27/2025 12:19 PM [facility] Comment:Calculation based on the Chronic Kidney Disease Epidemiology Collaboration (CKD-EPI) equation refit without adjustment for race. BUN/Creatinine Ratio 14.8 LAB CHEMISTRY METHOD 01/27/2025 12:19 PM [facility] Calcium 8.2(L) 8.5 - 10.5 mg/dL LAB CHEMISTRY METHOD 01/27/2025 12:19 PM [facility] AST (SGOT) 22 10 - 42 unit/L LAB CHEMISTRY METHOD 01/27/2025 12:19 PM [facility] ALT (SGPT) 18 10 - 60 unit/L LAB CHEMISTRY METHOD 01/27/2025 12:19 PM [facility] Alkaline Phosphatase 80 42 - 121 unit/L LAB CHEMISTRY METHOD 01/27/2025 12:19 PM [facility] Total Protein 5.9(L) 6.0 - 8.0 g/dL LAB CHEMISTRY METHOD 01/27/2025 12:19 PM [facility] Albumin 2.3(L) 3.2 - 5.0 g/dL LAB CHEMISTRY METHOD 01/27/2025 12:19 PM [facility] Total Bilirubin 0.4 0.0 - 1.4 mg/dL LAB CHEMISTRY METHOD 01/27/2025 12:19 PM [facility] Blood Venous blood specimen / Unknown Venipuncture / Unknown 01/27/2025 9:42 AM EDT 01/27/2025 10:52 AM EDT us Geena Lee MD LAB BLOOD ORDERABLES Fin al Result [facility] [address] [place] [address], [place] [phone] documented in this encounter Visit Diagnoses Diagnosis Essential (primary) hypertension Unspecified essential hypertension documented in this encounter Care Teams Aircraft Engine Dismantler Relationship Specialty Start Date End Date Geena Lee MD [address] [phone] PCP - General Family Medicine 03/20/24 documented as of this encounter
--- OUTSIDE RECORDS SUMMARY | 2025-04-03 20:44 | XMS_ITS | Encounter Summary ---
Author Organization Address [address] [place] [address] Care Team Providers Care Supervisor Silvering Department Name Role Phone Geena Lee MD Primary Care Provider + Encounter Details Date Type Department Care Team (Late st Contact Info) Description 01/29/2025 Lab Requisition [facility] - Main Lab [address] [place] [address] Geena Lee MD [address] [address] Chronic kidney disease, unspecified; Essential [...] Priority Date/Time Associated Diagnosis Comments SODIUM Routine 01/30/2025 5:20 AM EDT Chronic kidney disease, unspecified Essential (primary) hypertension documented in this encounter Results * Sodium (01/30/2025 5:20 AM EDT) Sodium 134 133 - 145 mmol/L LAB CHEMISTRY METHOD 01/30/2025 10:55 AM EDT [facility] ([facility]) [facility] Blood Venous blood specimen / Unknown Venipuncture / Unknown 01/30/2025 5:20 AM EDT 01/30/2025 10:10 AM EDT us Geena Lee MD LAB BLOOD ORDERABLES Fin al Result [facility] [address] [place] [address], [place] [phone] documented in this encounter Visit Diagnoses Diagnosis Chronic kidney disease, unspecified Essential (primary) hypertension Unspecified essential hypertension documented in this encounter Care Teams Supervisor Silvering Department Relationship Specialty Start Date End Date Geena Lee MD [address] [phone] PCP - General Family Medicine 03/20/24 documented as of this encounter
--- OUTSIDE RECORDS SUMMARY | 2025-04-03 20:44 | XMS_ITS | Encounter Summary ---
Author Organization [facility] Address [address] [place] [address] Care Team Providers Care Director Retirement Name Role Phone Geena Lee MD Primary Care Provider + Encounter Details Date Type Department Care Team (Late st Contact Info) Description 01/12/2025 Lab Requisition [facility] - Main Lab [address] [place] [address] Geena Lee MD [address] [address] Essential (primary) hypertension Social History [...] AM EDT) WBC 5.9 4.8 - 10.8 K/[facility] LAB HEMETOLOGY METHOD 01/13/2025 12:16 PM EDT [facility] LAB RBC 4.30(L) 4.50 - 5.50 M/mcL LAB HEMETOLOGY METHOD 01/13/2025 12:16 PM [facility] LAB Hemoglobin 12.4(L) 13.5 - 17.5 g/dL LAB HEMETOLOGY METHOD 01/13/2025 12:16 PM [facility] LAB Hematocrit 37.2(L) 42.0 - 54.0 % LAB HEMETOLOGY METHOD 01/13/2025 12:16 PM [facility] LAB MCV 87.1 79.0 - 98.0 FL LAB HEMETOLOGY METHOD 01/13/2025 12:16 PM [facility] LAB MCH 29.0 27.0 - 32.0 pcg LAB HEMETOLOGY METHOD 01/13/2025 12:16 PM [facility] LAB MCHC 33.3 32.0 - 37.0 g/dL LAB HEMETOLOGY METHOD 01/13/2025 12:16 PM [facility] LAB RDW 16.4(H) 11.0 - 15.0 % LAB HEMETOLOGY METHOD 01/13/2025 12:16 PM [facility] LAB Platelets 174 130 - 400 K/mcL LAB HEMETOLOGY METHOD 01/13/2025 12:16 PM [facility] LAB MPV 10.6 7.0 - 11.0 FL LAB HEMETOLOGY METHOD 01/13/2025 12:16 PM [facility] LAB NRBC 0.0 <1.0 % LAB HEMETOLOGY METHOD 01/13/2025 12:16 PM [facility] LAB NRBC Absolute 0.00 <0.10 K/mcL LAB HEMETOLOGY METHOD 01/13/2025 12:16 PM [facility] LAB Blood Venous blood specimen / Unknown Venipuncture / Unknown 01/13/2025 9:42 AM EDT 01/13/2025 11:07 AM EDT us Geena Lee MD LAB BLOOD ORDERABLES Fin al Result [facility] LAB [address] [place] [address], [place] [phone] * (ABNORMAL) Comprehensive metabolic panel (01/13/2025 9:42 AM EDT) Pathologist [facility] Sodium 129(L) 133 - 145 mmol/L LAB CHEMISTRY METHOD 01/13/2025 12:57 PM [facility] LAB Potassium 4.1 3.5 - 5.5 mmol/L LAB CHEMISTRY METHOD 01/13/2025 12:57 PM [facility] LAB Comment:Hemolysis present Chloride 99 96 - 110 mmol/L LAB CHEMISTRY METHOD 01/13/2025 12:57 PM [facility] LAB CO2 21 21 - 32 mmol/L LAB CHEMISTRY METHOD 01/13/2025 12:57 PM [facility] LAB Anion Gap 9 3 - 11 LAB CHEMISTRY METHOD 01/13/2025 12:57 PM [facility] LAB Glucose 67(L) 70 - 100 mg/dL LAB CHEMISTRY METHOD 01/13/2025 12:57 PM [facility] LAB BUN 12 5 - 25 mg/dL LAB CHEMISTRY METHOD 01/13/2025 12:57 PM [facility] LAB Creatinine 0.54(L) 0.70 - 1.30 mg/dL LAB CHEMISTRY METHOD 01/13/2025 12:57 PM [facility] LAB eGFR 108 >=60 mL/min/1. 73m2 LAB CHEMISTRY METHOD 01/13/2025 12:57 PM [facility] LAB Comment:Calculation based on the Chronic Kidney Disease Epidemiology Collaboration (CKD-EPI) equation refit without adjustment for race. BUN/Creatinine Ratio 22.2 LAB CHEMISTRY METHOD 01/13/2025 12:57 PM T [facility] LAB Calcium 8.7 8.5 - 10.5 mg/dL LAB CHEMISTRY METHOD 01/13/2025 12:57 PM T [facility] LAB AST (SGOT) 31 10 - 42 unit/L LAB CHEMISTRY METHOD 01/13/2025 12:57 PM [facility] LAB ALT (SGPT) 12 10 - 60 unit/L LAB CHEMISTRY [facility] Alkaline Phosphatase 89 42 - 121 unit/L LAB CHEMISTRY METHOD 01/13/2025 12:57 PM [facility] LAB Total Protein 7.1 6.0 - 8.0 g/dL LAB CHEMISTRY METHOD 01/13/2025 12:57 PM [facility] LAB Albumin 3.2 3.2 - 5.0 g/dL LAB CHEMISTRY METHOD 01/13/2025 12:57 PM [facility] LAB Total Bilirubin 0.5 0.0 - 1.4 mg/dL LAB CHEMISTRY METHOD 01/13/2025 12:57 PM [facility] LAB Blood Venous blood specimen / Unknown Venipuncture / Unknown 01/13/2025 9:42 AM EDT 01/13/2025 12:05 PM EDT us Geena Lee MD LAB BLOOD ORDERABLES Fin al Result [facility] LAB [address] [place] [address], documented in this encounter Visit Diagnoses Diagnosis Essential (primary) hypertension Unspecified essential hypertension documented in this encounter Care Teams Director Retirement Relationship Specialty Start Date End Date Geena Lee MD [address] [place] [phone] PCP - General Family Medicine 03/20/24 documented as of this encounter
--- OUTSIDE RECORDS SUMMARY | 2025-04-03 20:44 | XMS_ITS | Encounter Summary ---
Author Organization [facility] Address [address] [place] [address] Care Team Providers Care Media Marketing Manager Name Role Phone Geena Lee MD Primary Care Provider + Encounter Details Date Type Department Care Team (Late st Contact Info) Description 11/27/2024 Lab Requisition [facility] - Main Lab [address] [place] [address] Geena Lee MD [address] [address] Chronic kidney disease, unspecified; Essential [...] LAB CHEMISTRY METHOD 11/28/2024 10:08 AM EDT [facility] ([email or web address] LAB Blood Venous blood specimen / Unknown Venipuncture / Unknown 11/28/2024 5:40 AM EDT 11/28/2024 8:47 AM EDT us Geena Lee MD LAB BLOOD ORDERABLES Fin al Result [facility] ([facility] [[email or web address] LAB [address] [place] [address], documented in this encounter Visit Diagnoses Diagnosis Chronic kidney disease, unspecified Essential (primary) hypertension Unspecified essential hypertension documented in this encounter Care Teams Media Marketing Manager Relationship Specialty Start Date End Date Geena Lee MD [address] [place] [phone] PCP - General Family Medicine 03/20/24 documented as of this encounter
--- OUTSIDE RECORDS SUMMARY | 2025-04-03 20:44 | XMS_ITS | Encounter Summary ---
Author Organization [facility] Address [address] [place] [address] Care Team Providers Care Skin Washer Name Role Phone Geena Lee MD Primary Care Provider + Encounter Details Date Type Department Care Team (Late st Contact Info) Description 11/29/2024 Lab Requisition [facility] - Main Lab [address] [place] [address] Geena Lee MD [address] [address] Essential (primary) hypertension Social History [...] AM EDT) WBC 4.9 4.8 - 10.8 K/[facility] LAB HEMETOLOGY METHOD 12/02/2024 12:34 PM EDT [facility] LAB RBC 3.90(L) 4.50 - 5.50 M/mcL LAB HEMETOLOGY METHOD 12/02/2024 12:34 PM [facility] LAB Hemoglobin 11.3(L) 13.5 - 17.5 g/dL LAB HEMETOLOGY METHOD 12/02/2024 12:34 PM [facility] LAB Hematocrit 32.9(L) 42.0 - 54.0 % LAB HEMETOLOGY METHOD 12/02/2024 12:34 PM [facility] LAB MCV 84.6 79.0 - 98.0 FL LAB HEMETOLOGY METHOD 12/02/2024 12:34 PM [facility] LAB MCH 29.0 27.0 - 32.0 pcg LAB HEMETOLOGY METHOD 12/02/2024 12:34 PM [facility] LAB MCHC 34.3 32.0 - 37.0 g/dL LAB HEMETOLOGY METHOD 12/02/2024 12:34 PM [facility] LAB RDW 14.8 11.0 - 15.0 % LAB HEMETOLOGY METHOD 12/02/2024 12:34 PM [facility] LAB Platelets 179 130 - 400 K/mcL LAB HEMETOLOGY METHOD 12/02/2024 12:34 PM [facility] LAB MPV 9.7 7.0 - 11.0 FL LAB HEMETOLOGY METHOD 12/02/2024 12:34 PM [facility] LAB NRBC 0.0 <1.0 % LAB HEMETOLOGY METHOD 12/02/2024 12:34 PM [facility] LAB NRBC Absolute 0.00 <0.10 K/mcL LAB HEMETOLOGY METHOD 12/02/2024 12:34 PM [facility] LAB Blood Venous blood specimen / Unknown Venipuncture / Unknown 12/02/2024 9:32 AM EDT 12/02/2024 11:16 AM EDT us Geena Lee MD LAB BLOOD ORDERABLES Fin al Result [facility] LAB [address] [place] [address], [place] [phone] * (ABNORMAL) Comprehensive metabolic panel (12/02/2024 9:32 AM EDT) Sodium 126(L) 133 - 145 mmol/L LAB CHEMISTRY METHOD 12/02/2024 12:37 PM EDT [facility] LAB Potassium 4.0 3.5 - 5.5 mmol/L LAB CHEMISTRY METHOD 12/02/2024 12:37 PM [facility] LAB Chloride 91(L) 96 - 110 mmol/L LAB CHEMISTRY METHOD 12/02/2024 12:37 PM [facility] LAB CO2 27 21 - 32 mmol/L LAB CHEMISTRY METHOD 12/02/2024 12:37 PM [facility] LAB Anion Gap 8 3 - 11 LAB CHEMISTRY METHOD 12/02/2024 12:37 PM [facility] LAB Glucose 81 70 - 100 mg/dL LAB CHEMISTRY METHOD 12/02/2024 12:37 PM [facility] LAB BUN 11 5 - 25 mg/dL LAB CHEMISTRY METHOD 12/02/2024 12:37 PM [facility] LAB Creatinine 0.69(L) 0.70 - 1.30 mg/dL LAB CHEMISTRY METHOD 12/02/2024 12:37 PM [facility] LAB eGFR 100 >=60 mL/min/1. 73m2 LAB CHEMISTRY METHOD 12/02/2024 12:37 PM [facility] LAB Comment:Calculation based on the Chronic Kidney Disease Epidemiology Collaboration (CKD-EPI) equation refit without adjustment for race. BUN/Creatinine Ratio 15.9 LAB CHEMISTRY METHOD 12/02/2024 12:37 PM [facility] LAB Calcium 8.7 8.5 - [...] g/dL LAB CHEMISTRY METHOD 12/02/2024 12:37 PM [facility] LAB Albumin 3.1(L) 3.2 [...] Result [facility] LAB [address] [place] [address], documented in this encounter Visit Diagnoses Diagnosis Essential (primary) hypertension Unspecified essential hypertension documented in this encounter Care Teams Skin Washer Relationship Specialty Start Date End Date Geena Lee MD [address] [place] [phone] PCP - General Family Medicine 03/20/24 documented as of this encounter
--- OUTSIDE RECORDS SUMMARY | 2025-04-03 20:44 | XMS_ITS | Encounter Summary ---
Author Organization [facility] Address [address] [place] [address] Care Team Providers Care Naval Aircrew[employer] Name Role Phone Geena Lee MD Primary Care Provider + Encounter Details Date Type Department Care Team (Late st Contact Info) Description 11/13/2024 Lab Requisition [facility] - Main Lab [address] [place] [address] Geena Lee MD [address] [phone] Abnormal finding of blood chemistry, unspecified Social [...] LAB CHEMISTRY METHOD 11/13/2024 1:04 PM EDT [facility] LAB Potassium 3.7 3.5 - 5.5 mmol/L LAB CHEMISTRY METHOD 11/13/2024 1:[address] [facility] LAB Chloride 94(L) 96 - 110 mmol/L LAB CHEMISTRY METHOD 11/13/2024 1:[address] [facility] LAB CO2 26 21 - 32 mmol/L LAB CHEMISTRY METHOD 11/13/2024 1:[address] [facility] LAB Anion Gap 6 3 - 11 LAB CHEMISTRY METHOD 11/13/2024 1:[address] [facility] LAB Glucose 77 70 - 100 mg/dL LAB CHEMISTRY METHOD 11/13/2024 1:[address] [facility] LAB BUN 9 5 - 25 mg/dL LAB CHEMISTRY METHOD 11/13/2024 1:[address] [facility] LAB Creatinine 0.57(L) 0.70 - 1.30 mg/dL LAB CHEMISTRY METHOD 11/13/2024 1:[address] [facility] LAB eGFR 106 >=60 mL/min/1. 73m2 LAB CHEMISTRY METHOD 11/13/2024 1:[address] [facility] LAB Comment:Calculation based on the Chronic Kidney Disease Epidemiology Collaboration (CKD-EPI) equation refit without adjustment for race. BUN/Creatinine Ratio 15.8 LAB CHEMISTRY METHOD 11/13/2024 1:[address] [facility] LAB Calcium 8.8 8.5 - 10.5 mg/dL LAB CHEMISTRY METHOD 11/13/2024 1:[address] [facility] LAB Blood Venous blood specimen / Unknown Venipuncture / Unknown 11/13/2024 11:56 AM EDT 11/13/2024 12:28 PM EDT us Geena Lee MD LAB BLOOD ORDERABLES Fin al Result [facility] LAB [address] [place] [address], documented in this encounter Visit Diagnoses Diagnosis Abnormal finding of blood chemistry, unspecified documented in this encounter Care Teams [employer] Relationship Specialty Start Date End Date Geena Lee MD [address] [place] [address] PCP - General Family Medicine 03/20/24 documented as of this encounter
--- OUTSIDE RECORDS SUMMARY | 2025-04-03 20:44 | XMS_ITS | Encounter Summary ---
Author Organization [facility] Address [address] [place] [address] Care Team Providers Care Ssas Developer Name Role Phone Geena Lee MD Primary Care Provider + Encounter Details Date Type Department Care Team (Late st Contact Info) Description 02/12/[address] [facility] - Main Lab [address] [place] [address] Geena Lee MD [address] [address] Chronic kidney disease, unspecified; Essential [...] Priority Date/Time Associated Diagnosis Comments SODIUM Routine 02/13/2025 7:45 AM EDT Chronic kidney disease, unspecified Essential (primary) hypertension documented in this encounter Results * (ABNORMAL) Sodium (02/13/2025 7:45 AM EDT) Sodium 127(L) 133 - 145 mmol/L LAB CHEMISTRY METHOD 02/13/2025 10:36 AM EDT [facility] ([facility]) [facility] LAB Blood Venous blood specimen / Unknown Venipuncture / Unknown 02/13/2025 7:45 AM EDT 02/13/2025 9:05 AM EDT us Geena Lee MD LAB BLOOD ORDERABLES Fin al Result [facility] ([facility]) [facility] LAB [address] [place] [address], documented in this encounter Visit Diagnoses Diagnosis Chronic kidney disease, unspecified Essential (primary) hypertension Unspecified essential hypertension documented in this encounter Care Teams Ssas Developer Relationship Specialty Start Date End Date Geena Lee MD [address] [place] [phone] PCP - General Family Medicine 03/20/24 documented as of this encounter
--- OUTSIDE RECORDS SUMMARY | 2025-04-03 20:45 | XMS_ITS | Encounter Summary ---
Author Organization [facility] Address [address] [place] [address] Care Team Providers Care Dehydrator Tender Name Role Phone Geena Lee MD Primary Care Provider + Encounter Details Date Type Department Care Team (Late st Contact Info) Description 01/05/2025 Lab Requisition [facility] - Main Lab [address] [place] [address] Geena Lee MD [address] [phone] Essential (primary) hypertension Social History Tobacco Use [...] AM EDT) WBC 5.7 4.8 - 10.8 K/[facility] LAB HEMETOLOGY METHOD 01/06/2025 1:21 PM EDT [facility] LAB RBC 4.30(L) 4.50 - 5.50 M/mcL LAB HEMETOLOGY METHOD 01/06/2025 1:21 PM [facility] LAB Hemoglobin 12.3(L) 13.5 - 17.5 g/dL LAB HEMETOLOGY METHOD 01/06/2025 1:21 PM [facility] LAB Hematocrit 37.8(L) 42.0 - 54.0 % LAB HEMETOLOGY METHOD 01/06/2025 1:21 PM [facility] LAB MCV 87.9 79.0 - 98.0 FL LAB HEMETOLOGY METHOD 01/06/2025 1:21 PM [facility] LAB MCH 28.6 27.0 - 32.0 pcg LAB HEMETOLOGY METHOD 01/06/2025 1:21 PM [facility] LAB MCHC 32.5 32.0 - 37.0 g/dL LAB HEMETOLOGY METHOD 01/06/2025 1:21 PM [facility] LAB RDW 16.2(H) 11.0 - 15.0 % LAB HEMETOLOGY METHOD 01/06/2025 1:21 PM [facility] LAB Platelets 153 130 - 400 K/mcL LAB HEMETOLOGY METHOD 01/06/2025 1:21 PM [facility] LAB MPV 9.9 7.0 - 11.0 FL LAB HEMETOLOGY METHOD 01/06/2025 1:21 PM [facility] LAB NRBC 0.0 <1.0 % LAB HEMETOLOGY METHOD 01/06/2025 1:21 PM [facility] LAB NRBC Absolute 0.00 <0.10 K/mcL LAB HEMETOLOGY METHOD 01/06/2025 1:21 PM [facility] LAB Blood Venous blood specimen / Unknown Venipuncture / Unknown 01/06/2025 9:41 AM EDT 01/06/2025 11:44 AM EDT us Geena Lee MD LAB BLOOD ORDERABLES Fin al Result [facility] LAB [address] [place] [address], [place] [phone] * (ABNORMAL) Comprehensive metabolic panel (01/06/2025 9:41 AM EDT) Pathologist [facility] Sodium 134 133 - 145 mmol/L LAB CHEMISTRY METHOD 01/06/2025 2:13 PM [facility] LAB Potassium 3.8 3.5 - 5.5 mmol/L LAB CHEMISTRY METHOD 01/06/2025 2:13 PM [facility] LAB Chloride 100 96 - 110 mmol/L LAB CHEMISTRY METHOD 01/06/2025 2:13 PM [facility] LAB CO2 24 21 - 32 mmol/L LAB CHEMISTRY METHOD 01/06/2025 2:13 PM [facility] LAB Anion Gap 10 3 - 11 LAB CHEMISTRY METHOD 01/06/2025 2:13 PM [facility] LAB Glucose 68(L) 70 - 100 mg/dL LAB CHEMISTRY METHOD 01/06/2025 2:13 PM [facility] LAB BUN 17 5 - 25 mg/dL LAB CHEMISTRY METHOD 01/06/2025 2:13 PM [facility] LAB Creatinine 0.64(L) 0.70 - 1.30 mg/dL LAB CHEMISTRY METHOD 01/06/2025 2:13 PM [facility] LAB eGFR 102 >=60 mL/min/1. 73m2 LAB CHEMISTRY METHOD 01/06/2025 2:13 PM [facility] LAB Comment:Calculation based on the Chronic Kidney Disease Epidemiology Collaboration (CKD-EPI) equation refit without adjustment for race. BUN/Creatinine Ratio 26.6 LAB CHEMISTRY METHOD 01/06/2025 2:13 PM [facility] LAB Calcium 8.7 8.5 - 10.5 mg/dL LAB CHEMISTRY METHOD 01/06/2025 2:13 PM EDT [facility] LAB AST (SGOT) 25 10 - 42 unit/L LAB CHEMISTRY METHOD 01/06/2025 2:13 PM EDT [facility] LAB ALT (SGPT) 11 10 - 60 unit/L LAB CHEMISTRY METHOD 01/06/2025 2:13 PM EDT [facility] LAB Alkaline Phosphatase 84 42 - 121 unit/L LAB CHEMISTRY METHOD 01/06/2025 2:13 PM EDT [facility] LAB Total Protein 7.0 6.0 - 8.0 g/dL LAB CHEMISTRY METHOD 01/06/2025 2:13 PM T [facility] LAB Albumin 3.1(L) 3.2 - 5.0 g/dL LAB CHEMISTRY METHOD 01/06/2025 2:13 PM EDT [facility] LAB Total Bilirubin 0.4 0.0 - 1.4 mg/dL LAB CHEMISTRY METHOD 01/06/2025 2:13 PM EDT [facility] LAB Blood Venous blood specimen / Unknown Venipuncture / Unknown 01/06/2025 9:41 AM EDT 01/06/2025 11:44 AM EDT us Geena Lee MD LAB BLOOD ORDERABLES Fin al Result [facility] [address] [place] [address], [place] [phone] documented in this encounter Visit Diagnoses Diagnosis Essential (primary) hypertension Unspecified essential hypertension documented in this encounter Care Teams Dehydrator Tender Relationship Specialty Start Date End Date Geena Lee MD [address] [place] [phone] PCP - General Family Medicine 03/20/24 documented as of this encounter
--- OUTSIDE RECORDS SUMMARY | 2025-04-03 20:45 | XMS_ITS | Encounter Summary ---
Author Organization [facility] Address [address] [place] [address] Care Team Providers Care Purchasing And Claims Supervisor Name Role Phone Geena Lee MD Primary Care Provider + Encounter Details Date Type Department Care Team (Late st Contact Info) Description 12/05/2024 Lab Requisition [facility] - Main Lab [address] [place] [address] Geena Lee MD [address] [address] Essential (primary) hypertension Social History [...] AM EDT) WBC 5.4 4.8 - 10.8 K/[facility] LAB HEMETOLOGY METHOD 12/06/2024 9:34 AM EDT [facility] LAB RBC 4.10(L) 4.50 - 5.50 M/[facility] LAB HEMETOLOGY METHOD 12/06/2024 9:34 AM [facility] Hemoglobin 11.9(L) 13.5 - 17.5 g/dL LAB HEMETOLOGY METHOD 12/06/2024 9:34 AM [facility] LAB Hematocrit 35.4(L) 42.0 - 54.0 % LAB HEMETOLOGY METHOD 12/06/2024 9:34 AM [facility] LAB MCV 85.5 79.0 - 98.0 FL LAB [facility]EMETOLOGY [facility] MCH 28.7 27.0 - 32.0 pcg LAB HEMETOLOGY METHOD 12/06/2024 9:34 AM [facility] LAB MCHC 33.6 32.0 - 37.0 g/dL LAB HEMETOLOGY METHOD 12/06/2024 9:34 AM [facility] RDW 14.9 11.0 - 15.0 % LAB HEMETOLOGY METHOD 12/06/2024 9:34 AM [facility] LAB Platelets 181 130 - 400 K/mcL LAB HEMETOLOGY METHOD 12/06/2024 9:34 AM [facility] LAB MPV 9.6 7.0 - 11.0 FL LAB HEMETOLOGY METHOD 12/06/2024 9:34 AM [facility] LAB NRBC 0.0 <1.0 % LAB HEMETOLOGY METHOD 12/06/2024 9:34 AM [facility] LAB NRBC Absolute 0.00 <0.10 K/mcL LAB HEMETOLOGY METHOD 12/06/2024 9:34 AM [facility] LAB Blood Venous blood specimen / Unknown Venipuncture / Unknown 12/06/2024 7:51 AM EDT 12/06/2024 8:40 AM EDT Geena Lee MD LAB BLOOD ORDERABLES Fin al Result [facility] LAB [address] [place] [address], documented in this encounter Visit Diagnoses Diagnosis Essential (primary) hypertension Unspecified essential hypertension documented in this encounter Care Teams Purchasing And Claims Supervisor Relationship Specialty Start Date End Date Geena Lee MD [address] [place] [phone] PCP - General Family Medicine 03/20/24 documented as of this encounter
--- OUTSIDE RECORDS SUMMARY | 2025-04-03 20:45 | XMS_ITS | Encounter Summary ---
Author Organization [facility] Address [address] [place] [address] Care Team Providers Care Professor Of Economics Name Role Phone Geena Lee MD Primary Care Provider + Encounter Details Date Type Department Care Team (Late st Contact Info) Description 09/27/2024 Lab Requisition [facility] - Main Lab [address] [place] [address] Geena Lee MD [address] [phone] Essential (primary) hypertension Social History Tobacco Use [...] LAB CHEMISTRY METHOD 09/30/2024 12:05 PM EDT [facility] Potassium 4.0 3.5 - 5.5 mmol/L LAB CHEMISTRY METHOD 09/30/2024 12:05 PM [facility] LAB Chloride 92(L) 96 - 110 mmol/L LAB CHEMISTRY METHOD 09/30/2024 12:05 PM [facility] LAB CO2 25 21 - 32 mmol/L LAB CHEMISTRY METHOD 09/30/2024 12:05 PM [facility] LAB Anion Gap 9 3 - 11 LAB CHEMISTRY METHOD 09/30/2024 12:05 PM [facility] LAB Glucose 108(H) 70 - 100 mg/dL LAB CHEMISTRY METHOD 09/30/2024 12:05 PM [facility] BUN 11 5 - 25 mg/dL LAB CHEMISTRY METHOD 09/30/2024 12:05 PM [facility] LAB Creatinine 0.69(L) 0.70 - 1.30 mg/dL LAB CHEMISTRY METHOD 09/30/2024 12:05 PM [facility] LAB eGFR 100 >=60 mL/min/1. 73m2 LAB CHEMISTRY METHOD 09/30/2024 12:05 PM [facility] LAB Comment:Calculation based on the Chronic Kidney Disease Epidemiology Collaboration (CKD-EPI) equation refit without adjustment for race. BUN/Creatinine Ratio 15.9 LAB CHEMISTRY METHOD 09/30/2024 12:05 PM [facility] LAB Calcium 8.5 8.5 - 10.5 mg/dL LAB CHEMISTRY METHOD 09/30/2024 12:05 PM [facility] LAB AST (SGOT) 12 10 - 42 unit/L LAB CHEMISTRY METHOD 09/30/2024 12:05 PM [facility] ALT (SGPT) 10 10 - 60 unit/L LAB CHEMISTRY METHOD 09/30/2024 12:05 PM [facility] LAB Alkaline Phosphatase 79 42 - 121 unit/L LAB CHEMISTRY METHOD 09/30/2024 12:05 PM [facility] LAB Total Protein 6.4 6.0 - 8.0 g/dL LAB CHEMISTRY METHOD 09/30/2024 12:05 PM T [facility] LAB Albumin 3.0(L) 3.2 - 5.0 g/dL LAB CHEMISTRY METHOD 09/30/2024 12:05 PM [facility] LAB Total Bilirubin 0.8 0.0 - 1.4 mg/dL LAB CHEMISTRY METHOD 09/30/2024 12:05 PM EDT [facility] LAB Blood Venous blood specimen / Unknown Venipuncture / Unknown 09/30/2024 9:00 AM EDT 09/30/2024 11:00 AM EDT us Geena Lee MD LAB BLOOD ORDERABLES Fin al Result [facility] [address] [place] [address], * (ABNORMAL) Complete blood count (09/30/2024 9:00 AM EDT) WBC 6.8 4.8 - 10.8 K/mcL LAB HEMETOLOGY METHOD 09/30/2024 1:15 PM [facility] RBC 2.90(L) 4.50 - 5.50 M/mcL LAB HEMETOLOGY METHOD 09/30/2024 1:15 PM [facility] LAB Hemoglobin 9.1(L) 13.5 - 17.5 g/dL LAB HEMETOLOGY METHOD 09/30/2024 1:15 PM T [facility] LAB Hematocrit 28.1(L) 42.0 - 54.0 % LAB HEMETOLOGY METHOD 09/30/2024 1:15 PM [facility] LAB MCV 96.2 79.0 - 98.0 FL LAB HEMETOLOGY METHOD 09/30/2024 1:15 PM [facility] MCH 31.2 27.0 - 32.0 pcg LAB HEMETOLOGY METHOD 09/30/2024 1:15 PM EDT [facility] LAB MCHC 32.4 32.0 - 37.0 g/dL LAB HEMETOLOGY METHOD 09/30/2024 1:15 PM EDT [facility] LAB RDW 16.6(H) 11.0 - 15.0 % LAB HEMETOLOGY METHOD 09/30/2024 1:15 PM EDT [facility] LAB Platelets 260 130 - 400 K/mcL LAB HEMETOLOGY METHOD 09/30/2024 1:15 PM EDT [facility] LAB MPV 8.8 7.0 - 11.0 FL LAB HEMETOLOGY METHOD 09/30/2024 1:15 PM EDT [facility] LAB NRBC 0.0 <1.0 % LAB HEMETOLOGY METHOD 09/30/2024 1:15 PM EDT [facility] LAB NRBC Absolute 0.00 <0.10 K/mcL LAB HEMETOLOGY METHOD 09/30/2024 1:15 PM EDT [facility] LAB Blood Venous blood specimen / Unknown Venipuncture / Unknown 09/30/2024 9:00 AM EDT 09/30/2024 11:00 AM EDT us Geena Lee MD LAB BLOOD ORDERABLES Fin al Result [facility] [address] [place] [address], documented in this encounter Visit Diagnoses Diagnosis Essential (primary) hypertension Unspecified essential hypertension documented in this encounter Care Teams Professor Of Economics Relationship Specialty Start Date End Date Geena Lee MD [address] [address] PCP - General Family Medicine 03/20/24 documented as of this encounter
--- OUTSIDE RECORDS SUMMARY | 2025-04-03 20:45 | XMS_ITS | Encounter Summary ---
Author Organization [facility] Address [address] [place] [address] Care Team Providers Care Assembler Motor Vehicle Name Role Phone Geena Lee MD Primary Care Provider + Encounter Details Date Type Department Care Team (Late st Contact Info) Description 01/15/2025 Lab Requisition [facility] - Main Lab [address] [place] [address] Geena Lee MD [address] [address] Chronic kidney disease, unspecified; Essential [...] Priority Date/Time Associated Diagnosis Comments SODIUM Routine 01/16/2025 5:42 AM EDT Chronic kidney disease, unspecified Essential (primary) hypertension documented in this encounter Results * Sodium (01/16/2025 5:42 AM EDT) Sodium 133 133 - 145 mmol/L LAB CHEMISTRY METHOD 01/16/2025 12:42 PM EDT [facility] Blood Venous blood specimen / Unknown Venipuncture / Unknown 01/16/2025 5:42 AM EDT 01/16/2025 10:20 AM EDT us Geena Lee MD LAB BLOOD ORDERABLES Fin al Result [facility] [address] [place] [address], [place] [phone] documented in this encounter Visit Diagnoses Diagnosis Chronic kidney disease, unspecified Essential (primary) hypertension Unspecified essential hypertension documented in this encounter Care Teams Assembler Motor Vehicle Relationship Specialty Start Date End Date Geena Lee MD [address] [address] PCP - General Family Medicine 03/20/24 documented as of this encounter
--- OUTSIDE RECORDS SUMMARY | 2025-04-03 20:45 | XMS_ITS | Encounter Summary ---
Author Organization [facility] Address [address] [place] [address] Care Team Providers Care Knitting Machine Mechanic Name Role Phone Geena Lee MD Primary Care Provider + Encounter Details Date Type Department Care Team (Late st Contact Info) Description 02/02/2025 Lab Requisition [facility] - Main Lab [address] [place] [address] Geena Lee MD [address] [phone] Essential (primary) hypertension Social History Tobacco Use [...] Associated Diagnosis Comments COMPLETE BLOOD COUNT Routine 02/03/2025 9:15 AM EDT Essential (primary) hypertension COMPREHENSIVE METABOLIC PANEL Routine 02/03/2025 9:15 AM EDT Essential (primary) hypertension documented in this encounter Results * (ABNORMAL) Complete blood count (02/03/2025 9:15 AM EDT) WBC 6.4 4.8 - 10.8 [facility] LAB HEMETOLOGY METHOD 02/03/2025 11:27 AM EDT [facility] RBC 3.90(L) 4.50 - 5.50 M/mcL LAB HEMETOLOGY METHOD 02/03/2025 11:27 AM [facility] LAB Hemoglobin 11.5(L) 13.5 - 17.5 g/dL LAB HEMETOLOGY METHOD 02/03/2025 11:27 AM [facility] LAB Hematocrit 34.9(L) 42.0 - 54.0 % LAB HEMETOLOGY METHOD 02/03/2025 11:27 AM [facility] LAB MCV 89.7 79.0 - 98.0 FL LAB HEMETOLOGY METHOD 02/03/2025 11:27 AM [facility] LAB MCH 29.6 27.0 - 32.0 pcg LAB HEMETOLOGY METHOD 02/03/2025 11:27 AM [facility] LAB MCHC 33.0 32.0 - 37.0 g/dL LAB HEMETOLOGY METHOD 02/03/2025 11:27 AM [facility] LAB RDW 16.4(H) 11.0 - 15.0 % LAB HEMETOLOGY METHOD 02/03/2025 11:27 AM [facility] LAB Platelets 150 130 - 400 K/mcL LAB HEMETOLOGY METHOD 02/03/2025 11:27 AM [facility] LAB MPV 10.0 7.0 - 11.0 FL LAB HEMETOLOGY METHOD 02/03/2025 11:27 AM [facility] LAB NRBC 0.0 <1.0 % LAB HEMETOLOGY METHOD 02/03/2025 11:27 AM [facility] LAB NRBC Absolute 0.00 <0.10 K/mcL LAB HEMETOLOGY METHOD 02/03/2025 11:27 AM [facility] LAB Blood Venous blood specimen / Unknown Venipuncture / Unknown 02/03/2025 9:15 AM EDT 02/03/2025 10:55 AM EDT us Geena Lee MD LAB BLOOD ORDERABLES Fin al Result [facility] [address] [place] [address], [place] [phone] * (ABNORMAL) Comprehensive metabolic panel (02/03/2025 9:15 AM EDT) Sodium 132(L) 133 - 145 mmol/L LAB CHEMISTRY METHOD 02/03/2025 12:28 PM [facility] LAB Potassium 4.2 3.5 - 5.5 mmol/L LAB CHEMISTRY METHOD 02/03/2025 12:28 PM [facility] LAB Comment:Hemolysis present Chloride 99 96 - 110 mmol/L LAB CHEMISTRY METHOD 02/03/2025 12:28 PM [facility] LAB CO2 24 21 - 32 mmol/L LAB CHEMISTRY METHOD 02/03/2025 12:28 PM [facility] LAB Anion Gap 9 3 - 11 LAB CHEMISTRY METHOD 02/03/2025 12:28 PM [facility] LAB Glucose 103(H) 70 - 100 mg/dL LAB CHEMISTRY METHOD 02/03/2025 12:28 PM [facility] BUN 10 5 - 25 mg/dL LAB CHEMISTRY METHOD 02/03/2025 12:28 PM [facility] LAB Creatinine 0.50(L) 0.70 - 1.30 mg/dL LAB CHEMISTRY METHOD 02/03/2025 12:28 PM [facility] LAB eGFR 110 >=60 mL/min/1. 73m2 LAB CHEMISTRY METHOD 02/03/2025 12:28 PM [facility] LAB Comment:Calculation based on the Chronic Kidney Disease Epidemiology Collaboration (CKD-EPI) equation refit without adjustment for race. BUN/Creatinine Ratio 20.0 LAB CHEMISTRY METHOD 02/03/2025 12:28 PM EDT [facility] Calcium 8.7 8.5 - 10.5 mg/dL LAB CHEMISTRY METHOD 02/03/2025 12:28 PM [facility] AST (SGOT) 31 10 - 42 unit/L LAB CHEMISTRY METHOD 02/03/2025 12:28 PM [facility] LAB Comment:Hemolysis present ALT (SGPT) 11 10 - 60 unit/L LAB CHEMISTRY METHOD 02/03/2025 12:28 PM [facility] LAB Alkaline Phosphatase 76 42 - 121 unit/L LAB CHEMISTRY METHOD 02/03/2025 12:28 PM [facility] Total Protein 6.3 6.0 - 8.0 g/dL LAB CHEMISTRY METHOD 02/03/2025 12:28 PM [facility] Albumin 2.4(L) 3.2 - 5.0 g/dL LAB CHEMISTRY METHOD 02/03/2025 12:28 PM [facility] Total Bilirubin 0.6 0.0 - 1.4 mg/dL LAB CHEMISTRY METHOD 02/03/2025 12:28 PM [facility] LAB Blood Venous blood specimen / Unknown Venipuncture / Unknown 02/03/2025 9:15 AM EDT 02/03/2025 10:56 AM EDT us Geena Lee MD LAB BLOOD ORDERABLES Fin al Result [facility] [address] [place] [address], documented in this encounter Visit Diagnoses Diagnosis Essential (primary) hypertension Unspecified essential hypertension documented in this encounter Care Teams Knitting Machine Mechanic Relationship Specialty Start Date End Date Geena Lee MD [address] [place] [address] PCP - General Family Medicine 03/20/24 documented as of this encounter
--- OUTSIDE RECORDS SUMMARY | 2025-04-03 20:45 | XMS_ITS | Encounter Summary ---
Author Organization [facility] Address [address] [place] [address] Care Team Providers Care Mechanical Energy Engineer Name Role Phone Geena Lee MD Primary Care Provider + Encounter Details Date Type Department Care Team (Late st Contact Info) Description 01/08/2025 Lab Requisition [facility] - Main Lab [address] [place] [address] Geena Lee MD [address] [address] Chronic kidney disease, unspecified; Essential [...] LAB CHEMISTRY METHOD 01/09/2025 9:23 AM EDT [facility] Blood Venous blood specimen / Unknown Venipuncture / Unknown 01/09/2025 5:48 AM EDT 01/09/2025 8:51 AM EDT us Geena Lee MD LAB BLOOD ORDERABLES Fin al Result [facility] [address] [place] [address], [place] [phone] documented in this encounter Visit Diagnoses Diagnosis Chronic kidney disease, unspecified Essential (primary) hypertension Unspecified essential hypertension documented in this encounter Care Teams Mechanical Energy Engineer Relationship Specialty Start Date End Date Geena Lee MD [address] [address] PCP - General Family Medicine 03/20/24 documented as of this encounter
--- OUTSIDE RECORDS SUMMARY | 2025-04-03 20:45 | XMS_ITS | Encounter Summary ---
Author Organization [facility] Address [address] [place] [address] Care Team Providers Care Range Conservationist Name Role Phone Geena Lee MD Primary Care Provider + Encounter Details Date Type Department Care Team (Late st Contact Info) Description 12/04/2024 Lab Requisition [facility] - Main Lab [address] [facility] [place] [address] Geena Lee MD [address] [address] Chronic kidney disease, unspecified; Essential [...] Result [facility] [address] [place] [address], [place] [phone] * (ABNORMAL) Sodium (12/05/2024 6:08 AM EDT) Sodium 131(L) 133 - 145 mmol/L LAB CHEMISTRY METHOD 12/05/2024 11:01 AM EDT [facility] Blood Venous blood specimen / Unknown Venipuncture / Unknown 12/05/2024 6:08 AM EDT 12/05/2024 9:30 AM EDT us Geena Lee MD LAB BLOOD ORDERABLES Fin al Result Performing Organization Address [facility] Co de Phone Number [facility] [address] [place] [address], [place] [phone] documented in this encounter Visit Diagnoses Diagnosis Chronic kidney disease, unspecified Essential (primary) hypertension Unspecified essential hypertension Hypo-osmolality and hyponatremia documented in this encounter Care Teams Range Conservationist Relationship Specialty Start Date End Date Geena Lee MD [address] [place] [address] PCP - General Family Medicine 03/20/24 documented as of this encounter
--- OUTSIDE RECORDS SUMMARY | 2025-04-03 20:45 | XMS_ITS | Encounter Summary ---
Author Organization [facility] Address [address] [place] [address] Care Team Providers Care Vendor Management Associate Name Role Phone Geena Lee MD Primary Care Provider + Encounter Details Date Type Department Care Team (Late st Contact Info) Description 02/10/2025 Lab Requisition [facility] - Main Lab [address] [place] [address] Geena Lee MD [address] [phone] Essential (primary) hypertension Social History Tobacco Use [...] Associated Diagnosis Comments COMPREHENSIVE METABOLIC PANEL Routine 02/11/2025 5:08 AM EDT Essential (primary) hypertension documented in this encounter Results * (ABNORMAL) Comprehensive metabolic panel (02/11/2025 5:08 AM EDT) Sodium 122(L) 133 - 145 mmol/L LAB CHEMISTRY METHOD 02/11/2025 8:13 AM EDT [facility] Potassium 4.1 3.5 - 5.5 mmol/L LAB CHEMISTRY METHOD 02/11/2025 8:13 AM EDT [facility] Chloride 87(L) 96 - 110 mmol/L LAB CHEMISTRY METHOD 02/11/2025 8:[address] [facility] CO2 29 21 - 32 mmol/L LAB CHEMISTRY METHOD 02/11/2025 8:[address] [facility] Anion Gap 6 3 - 11 LAB CHEMISTRY METHOD 02/11/2025 8:[address] [facility] Glucose 72 70 - 100 mg/dL LAB CHEMISTRY METHOD 02/11/2025 8:[address] [facility] BUN 9 5 - 25 mg/dL LAB CHEMISTRY METHOD 02/11/2025 8:[address] [facility] Creatinine 0.35(L) 0.70 - 1.30 mg/dL LAB CHEMISTRY METHOD 02/11/2025 8:[address] [facility] LAB eGFR 123 >=60 mL/min/1. 73m2 LAB CHEMISTRY METHOD 02/11/2025 8:[address] [facility] LAB Comment:Calculation based on the Chronic Kidney Disease Epidemiology Collaboration (CKD-EPI) equation refit without adjustment for race. BUN/Creatinine Ratio 25.7 LAB CHEMISTRY METHOD 02/11/2025 8:[address] [facility] Calcium 8.4(L) 8.5 - 10.5 mg/dL LAB CHEMISTRY METHOD 02/11/2025 8:[address] [facility] AST (SGOT) 21 10 - 42 unit/L LAB CHEMISTRY METHOD 02/11/2025 8:[address] [facility] ALT (SGPT) 13 10 - 60 unit/L LAB CHEMISTRY METHOD 02/11/2025 8:[address] [facility] Alkaline Phosphatase 86 42 - 121 unit/L LAB CHEMISTRY METHOD 02/11/2025 8:[address] [facility] Total Protein 6.2 6.0 - 8.0 g/dL LAB CHEMISTRY METHOD 02/11/2025 8:13 AM EDT [facility] Albumin 2.4(L) 3.2 - 5.0 g/dL LAB CHEMISTRY METHOD 02/11/2025 8:13 AM EDT [facility] Total Bilirubin 0.5 0.0 - 1.4 mg/dL LAB CHEMISTRY METHOD 02/11/2025 8:13 AM EDT [facility] Blood Venous blood specimen / Unknown Venipuncture / Unknown 02/11/2025 5:08 AM EDT 02/11/2025 7:30 AM EDT us Geena Lee MD LAB BLOOD ORDERABLES Fin al Result [facility] [address] [place] [address], [place] [phone] documented in this encounter Visit Diagnoses Diagnosis Essential (primary) hypertension Unspecified essential hypertension documented in this encounter Care Teams Vendor Management Associate Relationship Specialty Start Date End Date Geena Lee MD [address] [address] PCP - General Family Medicine 03/20/24 documented as of this encounter
--- OUTSIDE RECORDS SUMMARY | 2025-04-03 20:45 | XMS_ITS | Encounter Summary ---
Author Organization [facility] Address [address] [place] [address] Care Team Providers Care Account Executive Healthcare Name Role Phone Geena Lee MD Primary Care Provider + Encounter Details Date Type Department Care Team (Late st Contact Info) Description 09/26/[address] [facility] - Main Lab 299 [facility] [place] [address] Geena Lee MD [address] [phone] Essential (primary) hypertension; Hyperlipidemia, unspecified Social History [...] ORDERABLES Fin al Result Performing Organization Address City/[facility]/ZIP Co de Phone Number [facility] [address] [place] [address], [place] [phone] * (ABNORMAL) Vitamin B12 (09/26/2024 6:01 AM EDT) Vitamin B-12 942(H) 250 - 900 pcg/mL LAB CHEMISTRY METHOD 09/26/2024 9:36 AM EDT [facility] Blood Venous blood specimen / Unknown Venipuncture / Unknown 09/26/2024 6:01 AM EDT 09/26/2024 7:31 AM EDT Geena Lee MD LAB BLOOD ORDERABLES Fin al Result [facility] [address] [place] [address], [place] [phone] * Ferritin (09/26/2024 6:01 AM EDT) Ferritin 101 26 - 388 ng/mL LAB CHEMISTRY METHOD 09/26/2024 9:36 AM EDT [facility] Blood Venous blood specimen / Unknown Venipuncture / Unknown 09/26/2024 6:01 AM EDT 09/26/2024 7:31 AM EDT Geena Lee MD LAB BLOOD ORDERABLES Fin al Result Performing Organization Address [facility]/ZIP Co de Phone Number [facility] [address] [place] [address], [place] [phone] * (ABNORMAL) Iron and TIBC (09/26/2024 6:01 [...] ORDERABLES Fin al Result Performing Organization Address [facility] de Phone Number [facility] [address] [place] [address], [place] [phone] * (ABNORMAL) Complete blood count (09/26/2024 6:01 [...] Fin al Result [facility] [address] [place] [address], documented in this encounter Visit Diagnoses Diagnosis Essential (primary) hypertension Unspecified essential hypertension Hyperlipidemia, unspecified documented in this encounter Care Teams Account Executive Healthcare Relationship Specialty Start Date End Date Geena Lee MD [address] [address] PCP - General Family Medicine 03/20/24 documented as of this encounter
--- OUTSIDE RECORDS SUMMARY | 2025-04-03 20:45 | XMS_ITS | Encounter Summary ---
Author Organization [facility] Address [address] [place] [address] Care Team Providers Care Chainstitch Hemmer Name Role Phone Geena Lee MD Primary Care Provider + Encounter Details Date Type Department Care Team (Late st Contact Info) Description 12/25/2024 Lab Requisition [facility] - Main Lab [address] [place] [address] Geena Lee MD [address] [address] Chronic kidney disease, unspecified; Essential [...] mmol/L LAB CHEMISTRY METHOD 12/26/2024 9:11 AM [facility] Potassium 4.0 3.5 - 5.5 mmol/L LAB CHEMISTRY METHOD 12/26/2024 9:11 AM [facility] Chloride 93(L) 96 - 110 mmol/L LAB CHEMISTRY METHOD 12/26/2024 9:11 AM [facility] CO2 29 21 - 32 mmol/L LAB CHEMISTRY METHOD 12/26/2024 9:11 AM [facility] Anion Gap 5 3 - 11 LAB CHEMISTRY METHOD 12/26/2024 9:11 AM [facility] Glucose 63(L) 70 - 100 mg/dL LAB CHEMISTRY METHOD 12/26/2024 9:11 AM [facility] BUN 12 5 - 25 mg/dL LAB CHEMISTRY METHOD 12/26/2024 9:11 AM [facility] Creatinine 0.52(L) 0.70 - 1.30 mg/dL LAB CHEMISTRY METHOD 12/26/2024 9:11 AM [facility] eGFR 109 >=60 mL/min/1. 73m2 LAB CHEMISTRY METHOD 12/26/2024 9:11 AM [facility] Comment:Calculation based on the Chronic Kidney Disease Epidemiology Collaboration (CKD-EPI) equation refit without adjustment for race. BUN/Creatinine Ratio 23.1 LAB CHEMISTRY METHOD 12/26/2024 9:11 AM [facility] Calcium 8.8 8.5 - 10.5 mg/dL LAB CHEMISTRY METHOD 12/26/2024 9:11 AM [facility] AST (SGOT) 20 10 - 42 unit/L LAB CHEMISTRY METHOD 12/26/2024 9:11 AM [facility] ALT (SGPT) 10 10 - 60 unit/L LAB CHEMISTRY METHOD 12/26/2024 9:11 AM [facility] Alkaline Phosphatase 75 42 - 121 unit/L LAB CHEMISTRY METHOD 12/26/2024 9:11 AM EDT [facility] Total Protein 6.7 6.0 - 8.0 g/dL LAB CHEMISTRY METHOD 12/26/2024 9:11 AM EDT [facility] Albumin 3.2 3.2 - 5.0 g/dL LAB CHEMISTRY METHOD 12/26/2024 9:11 AM EDT [facility] Total Bilirubin 0.5 0.0 - 1.4 mg/dL LAB CHEMISTRY METHOD 12/26/2024 9:11 AM EDT [facility] Blood Venous blood specimen / Unknown 12/26/2024 5:27 AM EDT 12/26/2024 8:15 AM EDT Geena Lee MD LAB BLOOD ORDERABLES Fin al Result Performing Organization Address City/[facility]/ZIP Co de Phone Number [facility] [address] [place] [address], [place] [phone] * (ABNORMAL) Sodium (12/26/2024 5:27 AM EDT) Sodium 127(L) 133 - 145 mmol/L LAB CHEMISTRY METHOD 12/26/2024 9:10 AM EDT [facility] Blood Venous blood specimen / Unknown 12/26/2024 5:27 AM EDT 12/26/2024 8:15 AM EDT Geena Lee MD LAB BLOOD ORDERABLES Fin al Result Performing Organization Address City/[facility]/ZIP Co de Phone Number [facility] [address] [place] [address], [place] [phone] documented in this encounter Visit Diagnoses Diagnosis Chronic kidney disease, unspecified Essential (primary) hypertension Unspecified essential hypertension documented in this encounter Care Teams Chainstitch Hemmer Relationship Specialty Start Date End Date Geena Lee MD [address] [place] [id number] PCP - General Family Medicine 03/20/24 documented as of this encounter
--- OUTSIDE RECORDS SUMMARY | 2025-04-03 20:45 | XMS_ITS | Encounter Summary ---
Author Organization [facility] Address [address] [place] [address] Care Team Providers Care Supervising Law Enforcement Analyst Name Role Phone Geena Lee MD Primary Care Provider + Encounter Details Date Type Department Care Team (Late st Contact Info) Description 12/28/2024 Lab Requisition [facility] - Main Lab [address] [place] [address] Geena Lee MD [address] [address] Essential (primary) hypertension Social History [...] AM EDT) WBC 6.5 4.8 - 10.8 K/[facility] LAB HEMETOLOGY METHOD 12/30/2024 12:40 PM EDT [facility] LAB RBC 4.20(L) 4.50 - 5.50 M/mcL LAB HEMETOLOGY METHOD 12/30/2024 12:40 PM [facility] LAB Hemoglobin 12.1(L) 13.5 - 17.5 g/dL LAB HEMETOLOGY METHOD 12/30/2024 12:40 PM [facility] LAB Hematocrit 35.8(L) 42.0 - 54.0 % LAB HEMETOLOGY METHOD 12/30/2024 12:40 PM [facility] LAB MCV 85.4 79.0 - 98.0 FL LAB HEMETOLOGY METHOD 12/30/2024 12:40 PM [facility] LAB MCH 28.9 27.0 - 32.0 pcg LAB HEMETOLOGY METHOD 12/30/2024 12:40 PM [facility] LAB MCHC 33.8 32.0 - 37.0 g/dL LAB HEMETOLOGY METHOD 12/30/2024 12:40 PM [facility] LAB RDW 15.9(H) 11.0 - 15.0 % LAB HEMETOLOGY METHOD 12/30/2024 12:40 PM [facility] LAB Platelets 173 130 - 400 K/mcL LAB HEMETOLOGY METHOD 12/30/2024 12:40 PM [facility] LAB MPV 9.9 7.0 - 11.0 FL LAB HEMETOLOGY METHOD 12/30/2024 12:40 PM [facility] LAB NRBC 0.0 <1.0 % LAB HEMETOLOGY METHOD 12/30/2024 12:40 PM [facility] LAB NRBC Absolute 0.00 <0.10 K/mcL LAB HEMETOLOGY METHOD 12/30/2024 12:40 PM [facility] LAB Blood Venous blood specimen / Unknown Venipuncture / Unknown 12/30/2024 10:33 AM EDT 12/30/2024 11:41 AM EDT us Geena Lee MD LAB BLOOD ORDERABLES Fin al Result [facility] LAB [address] [place] [address], [place] [phone] * (ABNORMAL) Comprehensive metabolic panel (12/30/2024 10:33 AM EDT) Pathologist [facility] Sodium 129(L) 133 - 145 mmol/L LAB CHEMISTRY METHOD 12/30/2024 2:56 PM [facility] LAB Potassium 4.1 3.5 - 5.5 mmol/L LAB CHEMISTRY METHOD 12/30/2024 2:56 PM [facility] LAB Comment:Hemolysis present Chloride 96 96 - 110 mmol/L LAB CHEMISTRY METHOD 12/30/2024 2:56 PM [facility] LAB CO2 24 21 - 32 mmol/L LAB CHEMISTRY METHOD 12/30/2024 2:56 PM [facility] LAB Anion Gap 9 3 - 11 LAB CHEMISTRY METHOD 12/30/2024 2:56 PM [facility] LAB Glucose 70 70 - 100 mg/dL LAB CHEMISTRY METHOD 12/30/2024 2:56 PM [facility] LAB BUN 10 5 - 25 mg/dL LAB CHEMISTRY METHOD 12/30/2024 2:56 PM [facility] LAB Creatinine 0.65(L) 0.70 - 1.30 mg/dL LAB CHEMISTRY METHOD 12/30/2024 2:56 PM [facility] LAB eGFR 102 >=60 mL/min/1. 73m2 LAB CHEMISTRY METHOD 12/30/2024 2:56 PM [facility] LAB Comment:Calculation based on the Chronic Kidney Disease Epidemiology Collaboration (CKD-EPI) equation refit without adjustment for race. BUN/Creatinine Ratio 15.4 LAB CHEMISTRY METHOD 12/30/2024 2:56 PM [facility] LAB Calcium 8.8 8.5 - 10.5 mg/dL LAB CHEMISTRY METHOD 12/30/2024 2:56 PM EDT [facility] LAB AST (SGOT) 27 10 - 42 unit/L LAB CHEMISTRY METHOD 12/30/2024 2:56 PM EDT [facility] LAB ALT (SGPT) 12 10 - 60 unit/L LAB CHEMISTRY METHOD 12/30/2024 2:56 PM EDT [facility] LAB Alkaline Phosphatase 80 42 - 121 unit/L LAB CHEMISTRY METHOD 12/30/2024 2:56 PM EDT [facility] LAB Total Protein 7.2 6.0 - 8.0 g/dL LAB CHEMISTRY METHOD 12/30/2024 2:56 PM EDT [facility] LAB Albumin 3.3 3.2 - 5.0 g/dL LAB CHEMISTRY METHOD 12/30/2024 2:56 PM EDT [facility] LAB Total Bilirubin 0.6 0.0 - 1.4 mg/dL LAB CHEMISTRY METHOD 12/30/2024 2:56 PM EDT [facility] LAB Blood Venous blood specimen / Unknown Venipuncture / Unknown 12/30/2024 10:33 AM EDT 12/30/2024 12:14 PM EDT us Geena Lee MD LAB BLOOD ORDERABLES Fin al Result [facility] LAB [address] [place] [address], documented in this encounter Visit Diagnoses Diagnosis Essential (primary) hypertension Unspecified essential hypertension documented in this encounter Care Teams Supervising Law Enforcement Analyst Relationship Specialty Start Date End Date Geena Lee MD [address] [phone] PCP - General Family Medicine 03/20/24 documented as of this encounter
--- OUTSIDE RECORDS SUMMARY | 2025-04-03 20:45 | XMS_ITS | Encounter Summary ---
Author Organization [facility] Address [address] [place] [address] Care Team Providers Care Kitchen Lead Name Role Phone Geena Lee MD Primary Care Provider + Encounter Details Date Type Department Care Team (Late st Contact Info) Description 02/05/2025 Lab Requisition [facility] - Main Lab [address] [place] [address] Geena Lee MD [address] [address] Chronic kidney disease, unspecified; Essential [...] Priority Date/Time Associated Diagnosis Comments SODIUM Routine 02/06/2025 5:05 AM EDT Chronic kidney disease, unspecified Essential (primary) hypertension documented in this encounter Results * (ABNORMAL) Sodium (02/06/2025 5:05 AM EDT) Sodium 128(L) 133 - 145 mmol/L LAB CHEMISTRY METHOD 02/06/2025 9:23 AM EDT [facility] ([facility]) [facility] LAB Blood Venous blood specimen / Unknown Venipuncture / Unknown 02/06/2025 5:05 AM EDT 02/06/2025 8:49 AM EDT us Geena Lee MD LAB BLOOD ORDERABLES Fin al Result [facility] ([facility]) [facility] LAB [address] [place] [address], documented in this encounter Visit Diagnoses Diagnosis Chronic kidney disease, unspecified Essential (primary) hypertension Unspecified essential hypertension documented in this encounter Care Teams Kitchen Lead Relationship Specialty Start Date End Date Geena Lee MD [address] [place] [phone] PCP - General Family Medicine 03/20/24 documented as of this encounter
--- OUTSIDE RECORDS SUMMARY | 2025-04-03 20:45 | XMS_ITS | Encounter Summary ---
Author Organization [facility] Address [address] [place] [address] Care Team Providers Care Manager Diesel Name Role Phone Geena Lee MD Primary Care Provider + Encounter Details Date Type Department Care Team (Late st Contact Info) Description 12/05/2024 Lab Requisition [facility] - Main Lab [address] [facility] [place] [address] Geena Lee MD [address] [phone] Urinary tract infection, site not specified Social [...] urine culture tube (12/05/2024 12:00 AM EDT) [facility] Extra Tube Hold for add-ons. 12/05/2024 12:01 PM EDT [facility] LAB Comment:Auto resulted. Urine Urine specimen obtained by clean catch procedure / Unknown 12/05/2024 12/05/2024 10:47 AM EDT us Geena Lee MD LAB URINE ORDERABLES Fin al Result [facility] LAB [address] [place] [address], [place] [phone] * (ABNORMAL) Urinalysis with reflex microscopic and culture (12/05/2024 12:00 AM EDT) [facility] Specific [place] Urine 1.026 1.003 - 1.030 LAB URINALYSIS - AUTOMATED METHOD 12/05/2024 10:54 AM [facility] LAB pH, Urine 6.5 5.0 - 8.0 pH LAB URINALYSIS - AUTOMATED METHOD 12/05/2024 10:54 AM [facility] LAB Leukocytes, Urine Negative Negative LAB URINALYSIS - AUTOMATED METHOD 12/05/2024 10:54 AM [facility] LAB Nitrite, Urine Negative Negative LAB URINALYSIS - AUTOMATED METHOD 12/05/2024 10:54 AM [facility] LAB Protein, Urine Trace <=Trace mg/dL LAB URINALYSIS - AUTOMATED METHOD 12/05/2024 10:54 AM [facility] LAB Glucose, Urine Negative Negative mg/dL LAB URINALYSIS - AUTOMATED METHOD 12/05/2024 10:54 AM [facility] LAB Ketones, Urine Trace(A) Negative mg/dL LAB URINALYSIS - AUTOMATED METHOD 12/05/2024 10:54 AM [facility] LAB Urobilinogen, Urine 1.0 0.2 - 1.0 mg/dL LAB URINALYSIS - AUTOMATED METHOD 12/05/2024 10:54 AM EDT [facility] LAB Bilirubin, Urine Negative Negative LAB URINALYSIS - AUTOMATED METHOD 12/05/2024 10:54 AM EDT [facility] LAB Blood, Urine Negative Negative LAB URINALYSIS - AUTOMATED METHOD 12/05/2024 10:54 AM EDT [facility] LAB Urine Urine specimen obtained by clean catch procedure / Unknown Non-blood Collection / Unknown 12/05/2024 12/05/2024 10:47 AM EDT us Geena Lee MD LAB URINE ORDERABLES Fin al Result [facility]) [facility] [address] [place] [address], [place] [phone] documented in this encounter Visit Diagnoses Diagnosis Urinary tract infection, site not specified documented in this encounter Care Teams Manager Diesel Relationship Specialty Start Date End Date Geena Lee MD [address] [phone] PCP - General Family Medicine 03/20/24 documented as of this encounter
--- OUTSIDE RECORDS SUMMARY | 2025-04-03 20:45 | XMS_ITS | Encounter Summary ---
Author Organization [facility] Address [address] [place] [address] Care Team Providers Care Box Closing Machine Operator Name Role Phone Geena Lee MD Primary Care Provider + Encounter Details Date Type Department Care Team (Late st Contact Info) Description 12/19/2024 Lab Requisition [facility] - Main Lab [address] [place] [address] Geena Lee MD [address] [address] Chronic kidney disease, unspecified; Essential [...] LAB CHEMISTRY METHOD 12/20/2024 10:47 AM EDT [facility] LAB Blood Venous blood specimen / Unknown Venipuncture / Unknown 12/20/2024 5:33 AM EDT 12/20/2024 9:55 AM EDT us Geena Lee MD LAB BLOOD ORDERABLES Fin al Result [facility] [address] [place] [address], documented in this encounter Visit Diagnoses Diagnosis Chronic kidney disease, unspecified Essential (primary) hypertension Unspecified essential hypertension documented in this encounter Care Teams Box Closing Machine Operator Relationship Specialty Start Date End Date Geena Lee MD [address] [place] [phone] PCP - General Family Medicine 03/20/24 documented as of this encounter
--- OUTSIDE RECORDS SUMMARY | 2025-04-03 20:45 | XMS_ITS | Encounter Summary ---
Author Organization [facility] Address [address] [place] [address] Care Team Providers Care Motor Vehicle Field Representative Name Role Phone Geena Lee MD Primary Care Provider + Encounter Details Date Type Department Care Team (Late st Contact Info) Description 09/26/2024 Lab Requisition [facility] - Main Lab [address] [place] [address] Geena Lee MD [address] [phone] Essential (primary) hypertension Social History Tobacco Use [...] LAB CHEMISTRY METHOD 09/27/2024 10:53 AM EDT [facility] ([facility]) [facility] LAB Potassium 4.1 3.5 - 5.5 mmol/L LAB CHEMISTRY METHOD 09/27/2024 10:53 AM [facility] LAB Chloride 94(L) 96 - 110 mmol/L LAB CHEMISTRY METHOD 09/27/2024 10:53 AM [facility] LAB CO2 27 21 - 32 mmol/L LAB CHEMISTRY METHOD 09/27/2024 10:53 AM [facility] LAB Anion Gap 8 3 - 11 LAB CHEMISTRY METHOD 09/27/2024 10:53 AM [facility] LAB Glucose 83 70 - 100 mg/dL LAB CHEMISTRY METHOD 09/27/2024 10:53 AM [facility] LAB BUN 8 5 - 25 mg/dL LAB CHEMISTRY METHOD 09/27/2024 10:53 AM [facility] LAB Creatinine 0.65(L) 0.70 - 1.30 mg/dL LAB CHEMISTRY METHOD 09/27/2024 10:53 AM [facility] LAB eGFR 102 >=60 mL/min/1. 73m2 LAB CHEMISTRY METHOD 09/27/2024 10:53 AM [facility] LAB Comment:Calculation based on the Chronic Kidney Disease Epidemiology Collaboration (CKD-EPI) equation refit without adjustment for race. BUN/Creatinine Ratio 12.3 LAB CHEMISTRY METHOD 09/27/2024 10:53 AM [facility] LAB Calcium 8.2(L) 8.5 - 10.5 mg/dL LAB CHEMISTRY METHOD 09/27/2024 10:53 AM [facility] LAB AST (SGOT) 14 10 - 42 unit/L LAB CHEMISTRY METHOD 09/27/2024 10:53 AM [facility] LAB ALT (SGPT) 11 10 - 60 unit/L LAB CHEMISTRY METHOD 09/27/2024 10:53 AM [facility] LAB Alkaline Phosphatase 72 42 - 121 unit/L LAB CHEMISTRY METHOD 09/27/2024 10:53 AM [facility] LAB Total Protein 6.0 6.0 - 8.0 g/dL LAB CHEMISTRY METHOD 09/27/2024 10:53 AM EDT [facility] LAB Albumin 2.7(L) 3.2 - 5.0 g/dL LAB CHEMISTRY METHOD 09/27/2024 10:53 AM [facility] LAB Total Bilirubin 0.6 0.0 - 1.4 mg/dL LAB CHEMISTRY METHOD 09/27/2024 10:53 AM EDT [facility] LAB Blood Venous blood specimen / Unknown Venipuncture / Unknown 09/27/2024 7:13 AM EDT 09/27/2024 9:34 AM EDT us Geena Lee MD LAB BLOOD ORDERABLES Fin al Result [facility] LAB [address] [place] [address], * (ABNORMAL) Complete blood count (09/27/2024 7:13 AM EDT) WBC 6.0 4.8 - 10.8 K/mcL LAB HEMETOLOGY METHOD 09/27/2024 9:54 AM [facility] LAB RBC 2.40(L) 4.50 - 5.50 M/mcL LAB HEMETOLOGY METHOD 09/27/2024 9:54 AM [facility] LAB Hemoglobin 7.7(L) 13.5 - 17.5 g/dL LAB HEMETOLOGY METHOD 09/27/2024 9:54 AM [facility] LAB Hematocrit 23.8(L) 42.0 - 54.0 % LAB HEMETOLOGY METHOD 09/27/2024 9:54 AM [facility] LAB MCV 97.5 79.0 - 98.0 FL LAB HEMETOLOGY METHOD 09/27/2024 9:54 AM [facility] LAB MCH 31.6 27.0 - 32.0 pcg LAB HEMETOLOGY METHOD 09/27/2024 9:54 AM EDT [facility] LAB MCHC 32.4 32.0 - 37.0 g/dL LAB HEMETOLOGY METHOD 09/27/2024 9:54 AM EDT [facility] LAB RDW 16.8(H) 11.0 - 15.0 % LAB HEMETOLOGY METHOD 09/27/2024 9:54 AM EDT [facility] LAB Platelets 236 130 - 400 K/mcL LAB HEMETOLOGY METHOD 09/27/2024 9:54 AM EDT [facility] LAB MPV 8.9 7.0 - 11.0 FL LAB HEMETOLOGY METHOD 09/27/2024 9:54 AM EDT [facility] LAB NRBC 0.0 <1.0 % LAB HEMETOLOGY METHOD 09/27/2024 9:54 AM EDT [facility] LAB NRBC Absolute 0.00 <0.10 K/mcL LAB HEMETOLOGY METHOD 09/27/2024 9:54 AM EDT [facility] LAB Blood Venous blood specimen / Unknown Venipuncture / Unknown 09/27/2024 7:13 AM EDT 09/27/2024 9:35 AM EDT us Geena Lee MD LAB BLOOD ORDERABLES Fin al Result [facility] [address] [place] [address], documented in this encounter Visit Diagnoses Diagnosis Essential (primary) hypertension Unspecified essential hypertension documented in this encounter Care Teams Motor Vehicle Field Representative Relationship Specialty Start Date End Date Geena Lee MD [address] [phone] PCP - General Family Medicine 03/20/24 documented as of this encounter
--- OUTSIDE RECORDS SUMMARY | 2025-04-03 20:45 | XMS_ITS | Encounter Summary ---
Author Organization [facility] Address [address] [place] [address] Care Team Providers Care Epic Beacon Specialists Name Role Phone Geena Lee MD Primary Care Provider + Encounter Details Date Type Department Care Team (Late st Contact Info) Description 12/07/2024 Lab Requisition [facility] - Main Lab [address] [place] [address] Geena Lee MD [address] [phone] Essential (primary) hypertension Social History Tobacco Use [...] AM EDT) WBC 4.9 4.8 - 10.8 K/[facility] LAB HEMETOLOGY METHOD 12/09/2024 1:51 PM EDT [facility] RBC 4.00(L) 4.50 - 5.50 M/mcL LAB HEMETOLOGY METHOD 12/09/2024 1:51 PM EDT [facility] LAB Hemoglobin 11.6(L) 13.5 - 17.5 g/dL LAB HEMETOLOGY METHOD 12/09/2024 1:51 PM [facility] LAB Hematocrit 34.7(L) 42.0 - 54.0 % LAB HEMETOLOGY METHOD 12/09/2024 1:51 PM [facility] LAB MCV 85.9 79.0 - 98.0 FL LAB HEMETOLOGY METHOD 12/09/2024 1:51 PM [facility] LAB MCH 28.7 27.0 - 32.0 pcg LAB HEMETOLOGY METHOD 12/09/2024 1:51 PM [facility] LAB MCHC 33.4 32.0 - 37.0 g/dL LAB HEMETOLOGY METHOD 12/09/2024 1:51 PM [facility] LAB RDW 14.9 11.0 - 15.0 % LAB HEMETOLOGY METHOD 12/09/2024 1:51 PM [facility] LAB Platelets 161 130 - 400 K/mcL LAB HEMETOLOGY METHOD 12/09/2024 1:51 PM [facility] LAB MPV 10.2 7.0 - 11.0 FL LAB HEMETOLOGY METHOD 12/09/2024 1:51 PM [facility] LAB NRBC 0.0 <1.0 % LAB HEMETOLOGY METHOD 12/09/2024 1:51 PM [facility] LAB NRBC Absolute 0.00 <0.10 K/mcL LAB HEMETOLOGY METHOD 12/09/2024 1:51 PM [facility] LAB Blood Venous blood specimen / Unknown Venipuncture / Unknown 12/09/2024 9:07 AM EDT 12/09/2024 10:52 AM EDT us Geena Lee MD LAB BLOOD ORDERABLES Fin al Result [facility] [address] [place] [address], [place] [phone] * (ABNORMAL) Comprehensive metabolic panel (12/09/2024 9:07 AM EDT) Sodium 132(L) 133 - 145 mmol/L LAB CHEMISTRY METHOD 12/09/2024 4:34 PM [facility] Potassium 3.9 3.5 - 5.5 mmol/L LAB CHEMISTRY METHOD 12/09/2024 4:34 PM [facility] Chloride 98 96 - 110 mmol/L LAB CHEMISTRY METHOD 12/09/2024 4:34 PM [facility] CO2 27 21 - 32 mmol/L LAB CHEMISTRY METHOD 12/09/2024 4:34 PM [facility] Anion Gap 7 3 - 11 LAB CHEMISTRY METHOD 12/09/2024 4:34 PM [facility] Glucose 71 70 - 100 mg/dL LAB CHEMISTRY METHOD 12/09/2024 4:34 PM [facility] BUN 11 5 - 25 mg/dL LAB CHEMISTRY METHOD 12/09/2024 4:34 PM [facility] Creatinine 0.42(L) 0.70 - 1.30 mg/dL LAB CHEMISTRY METHOD 12/09/2024 4:34 PM [facility] LAB eGFR 116 >=60 mL/min/1. 73m2 LAB CHEMISTRY METHOD 12/09/2024 4:34 PM [facility] LAB Comment:Calculation based on the Chronic Kidney Disease Epidemiology Collaboration (CKD-EPI) equation refit without adjustment for race. BUN/Creatinine Ratio 26.2 LAB CHEMISTRY METHOD 12/09/2024 4:34 PM [facility] Calcium 9.0 8.5 - 10.5 mg/dL LAB CHEMISTRY METHOD 12/09/2024 4:34 PM EDT [facility] AST (SGOT) 15 10 - 42 unit/L LAB CHEMISTRY METHOD 12/09/2024 4:34 PM [facility] ALT (SGPT) 11 10 - 60 unit/L LAB CHEMISTRY METHOD 12/09/2024 4:34 PM T [facility] LAB Alkaline Phosphatase 72 42 - 121 unit/L LAB CHEMISTRY METHOD 12/09/2024 4:34 PM T [facility] Total Protein 6.6 6.0 - 8.0 g/dL LAB CHEMISTRY METHOD 12/09/2024 4:34 PM [facility] Albumin 3.2 3.2 - 5.0 g/dL LAB CHEMISTRY METHOD 12/09/2024 4:34 PM [facility] Total Bilirubin 0.5 0.0 - 1.4 mg/dL LAB CHEMISTRY METHOD 12/09/2024 4:34 PM T [facility] Blood Venous blood specimen / Unknown Venipuncture / Unknown 12/09/2024 9:07 AM EDT 12/09/2024 10:52 AM EDT us Geena Lee MD LAB BLOOD ORDERABLES Fin al Result [facility] [address] [place] [address], documented in this encounter Visit Diagnoses Diagnosis Essential (primary) hypertension Unspecified essential hypertension documented in this encounter Care Teams Epic Beacon Specialists Relationship Specialty Start Date End Date Geena Lee MD [address] [place] [phone] PCP - General Family Medicine 03/20/24 documented as of this encounter
--- OUTSIDE RECORDS SUMMARY | 2025-04-03 20:45 | XMS_ITS | Encounter Summary ---
Author Organization [facility] Address [address] [place] [address] Care Team Providers Care Hydraulic Assembler Name Role Phone Geena Lee MD Primary Care Provider + Encounter Details Date Type Department Care Team (Late st Contact Info) Description 01/21/2025 Lab Requisition [facility] - Main Lab [address] [place] [address] Geena Lee MD [address] [phone] Essential (primary) hypertension Social History Tobacco Use [...] Associated Diagnosis Comments COMPLETE BLOOD COUNT Routine 01/22/2025 5:57 AM EDT Essential (primary) hypertension BASIC METABOLIC PANEL Routine 01/22/2025 5:57 AM EDT Essential (primary) hypertension documented in this encounter Results * (ABNORMAL) Complete blood count (01/22/2025 5:57 AM EDT) WBC 8.9 4.8 - 10.8 K/[facility] LAB HEMETOLOGY METHOD 01/22/2025 10:24 AM EDT [facility] RBC 5.20 4.50 - 5.50 M/mcL LAB HEMETOLOGY METHOD 01/22/2025 10:24 AM T [facility] LAB Hemoglobin 15.5 13.5 - 17.5 g/dL LAB HEMETOLOGY METHOD 01/22/2025 10:[address] [facility] LAB Hematocrit 46.7 42.0 - 54.0 % LAB HEMETOLOGY METHOD 01/22/2025 10:[address] [facility] LAB MCV 90.5 79.0 - 98.0 FL LAB HEMETOLOGY METHOD 01/22/2025 10:[address] [facility] LAB MCH 30.0 27.0 - 32.0 pcg LAB HEMETOLOGY METHOD 01/22/2025 10:[address] [facility] LAB MCHC 33.2 32.0 - 37.0 g/dL LAB HEMETOLOGY METHOD 01/22/2025 10:[address] [facility] LAB RDW 17.3(H) 11.0 - 15.0 % LAB HEMETOLOGY METHOD 01/22/2025 10:[address] [facility] LAB Platelets 235 130 - 400 K/mcL LAB HEMETOLOGY METHOD 01/22/2025 10:[address] [facility] LAB MPV 9.9 7.0 - 11.0 FL LAB HEMETOLOGY METHOD 01/22/2025 10:[address] [facility] LAB NRBC 0.0 <1.0 % LAB HEMETOLOGY METHOD 01/22/2025 10:[address] [facility] LAB NRBC Absolute 0.00 <0.10 K/mcL LAB HEMETOLOGY METHOD 01/22/2025 10:[address] [facility] LAB Blood Venous blood specimen / Unknown Venipuncture / Unknown 01/22/2025 5:57 AM EDT 01/22/2025 9:59 AM EDT us Geena Lee MD LAB BLOOD ORDERABLES Fin al Result [facility] [address] [place] [address], * (ABNORMAL) Basic metabolic panel (01/22/2025 5:57 AM EDT) Sodium 133 133 - 145 mmol/L LAB CHEMISTRY METHOD 01/22/2025 12:[address] [facility] Potassium 5.0 3.5 - 5.5 mmol/L LAB CHEMISTRY METHOD 01/22/2025 12:[address] [facility] Chloride 101 96 - 110 mmol/L LAB CHEMISTRY METHOD 01/22/2025 12:[address] [facility] CO2 17(L) 21 - 32 mmol/L LAB CHEMISTRY METHOD 01/22/2025 12:[address] [facility] Anion Gap 15(H) 3 - 11 LAB CHEMISTRY METHOD 01/22/2025 12:[address] [facility] Glucose 40(L) 70 - 100 mg/dL LAB CHEMISTRY METHOD 01/22/2025 12:[address] [facility] BUN 16 5 - 25 mg/dL LAB CHEMISTRY METHOD 01/22/2025 12:[address] [facility] Creatinine 0.76 0.70 - 1.30 mg/dL LAB CHEMISTRY METHOD 01/22/2025 12:[address] [facility] LAB eGFR 97 >=60 mL/min/1. 73m2 LAB CHEMISTRY METHOD 01/22/2025 12:[address] [facility] LAB Comment:Calculation based on the Chronic Kidney Disease Epidemiology Collaboration (CKD-EPI) equation refit without adjustment for race. BUN/Creatinine Ratio 21.1 LAB CHEMISTRY METHOD 01/22/2025 12:[address] [facility] Calcium 7.9(L) 8.5 - 10.5 mg/dL LAB CHEMISTRY METHOD 01/22/2025 12:38 PM EDT [facility] Blood Venous blood specimen / Unknown Venipuncture / Unknown 01/22/2025 5:57 AM EDT 01/22/2025 9:57 AM EDT us Geena Lee MD LAB BLOOD ORDERABLES Fin al Result [facility] [address] [place] [address], documented in this encounter Visit Diagnoses Diagnosis Essential (primary) hypertension Unspecified essential hypertension documented in this encounter Care Teams Hydraulic Assembler Relationship Specialty Start Date End Date Geena Lee MD [address] [place] [phone] PCP - General Family Medicine 03/20/24 documented as of this encounter
--- OUTSIDE RECORDS SUMMARY | 2025-04-03 20:45 | XMS_ITS | Encounter Summary ---
Author Organization [facility] Address [address] [place] [address] Care Team Providers Care Line Inspector Name Role Phone Geena Lee MD Primary Care Provider + Encounter Details Date Type Department Care Team (Late st Contact Info) Description 01/01/2025 Lab Requisition [facility] - Main Lab [address] [place] [address] Geena Lee MD [address] [address] Chronic kidney disease, unspecified; [...] LAB CHEMISTRY METHOD 01/02/2025 9:[address] [facility] Blood Venous blood specimen / Unknown Venipuncture / Unknown 01/02/2025 6:01 AM EDT 01/02/2025 7:56 AM EDT us Geena Lee MD LAB BLOOD ORDERABLES Fin al Result [facility] [address] [place] [address], documented in this encounter Visit Diagnoses Diagnosis Chronic kidney disease, unspecified Essential (primary) hypertension Unspecified essential hypertension documented in this encounter Care Teams Line Inspector Relationship Specialty Start Date End Date Geena Lee MD [address] [place] [id number] PCP - General Family Medicine 03/20/24 documented as of this encounter
--- OUTSIDE RECORDS SUMMARY | 2025-04-03 20:45 | XMS_ITS | Encounter Summary ---
Author Organization [facility] Address [address] [place] [address] Care Team Providers Care Vp Customer Service Name Role Phone Geena Lee MD Primary Care Provider + Encounter Details Date Type Department Care Team (Late st Contact Info) Description 12/28/2024 Lab Requisition [facility] - Main Lab 299 [facility] [place] [id number] Geena Lee MD [address] [address] Essential (primary) hypertension Social History Tobacco Use [...] hypertension documented in this encounter Care Teams Vp Customer Service Relationship Specialty Start Date End Date Geena Lee MD [address] [address] PCP - General Family Medicine 03/20/24 documented as of this encounter
--- OUTSIDE RECORDS SUMMARY | 2025-04-03 20:45 | XMS_ITS | Encounter Summary ---
Author Organization [facility] Address [address] [place] [address] Care Team Providers Care Blue Print Control Clerk Name Role Phone Geena Lee MD Primary Care Provider + Encounter Details Date Type Department Care Team (Late st Contact Info) Description 02/09/2025 Lab Requisition [facility] - Main Lab [address] [place] [address] Geena Lee MD [address] [phone] Essential (primary) hypertension Social History Tobacco Use [...] as of this encounter Plan of Treatment Scheduled Orders Name Type Priority Associated Diagnoses Orde r Schedule Comprehensive metabolic panel Lab Routine Essential (primary) hypertension Ordered: 02/09/2025 documented as of this encounter Procedures Procedure Name Priority Date/Time Associated Diagnosis Comments COMPLETE BLOOD COUNT Routine 02/10/2025 9:39 AM EDT Essential (primary) hypertension documented in this encounter Results * (ABNORMAL) Complete blood count (02/10/2025 9:39 AM EDT) WBC 5.9 4.8 - 10.8 K/mcL LAB HEMETOLOGY METHOD 02/10/2025 11:05 AM EDT [facility] RBC 4.10(L) 4.50 - 5.50 M/mcL LAB HEMETOLOGY METHOD 02/10/2025 11:05 AM [facility] LAB Hemoglobin 12.4(L) 13.5 - 17.5 g/dL LAB HEMETOLOGY METHOD 02/10/2025 11:05 AM [facility] LAB Hematocrit 35.6(L) 42.0 - 54.0 % LAB HEMETOLOGY METHOD 02/10/2025 11:05 AM [facility] LAB MCV 87.7 79.0 - 98.0 FL LAB HEMETOLOGY METHOD 02/10/2025 11:05 AM [facility] LAB MCH 30.5 27.0 - 32.0 pcg LAB HEMETOLOGY METHOD 02/10/2025 11:05 AM [facility] LAB MCHC 34.8 32.0 - 37.0 g/dL LAB HEMETOLOGY METHOD 02/10/2025 11:05 AM [facility] LAB RDW 16.0(H) 11.0 - 15.0 % LAB HEMETOLOGY METHOD 02/10/2025 11:05 AM [facility] LAB Platelets 215 130 - 400 K/mcL LAB HEMETOLOGY METHOD 02/10/2025 11:05 AM [facility] LAB MPV 9.3 7.0 - 11.0 FL LAB HEMETOLOGY METHOD 02/10/2025 11:05 AM [facility] LAB NRBC 0.0 <1.0 % LAB HEMETOLOGY METHOD 02/10/2025 11:05 AM [facility] LAB NRBC Absolute 0.00 <0.10 K/mcL LAB HEMETOLOGY METHOD 02/10/2025 11:05 AM [facility] LAB Blood Venous blood specimen / Unknown Venipuncture / Unknown 02/10/2025 9:39 AM EDT 02/10/2025 10:37 AM EDT us Geena Lee MD LAB BLOOD ORDERABLES Fin al Result [facility] ([facility] [address] [place] [address], documented in this encounter Visit Diagnoses Diagnosis Essential (primary) hypertension Unspecified essential hypertension documented in this encounter Care Teams Blue Print Control Clerk Relationship Specialty Start Date End Date Geena Lee MD [address] [address] PCP - General Family Medicine 03/20/24 documented as of this encounter
--- OUTSIDE RECORDS SUMMARY | 2025-04-03 20:45 | XMS_ITS | Encounter Summary ---
Author Organization [facility] Address [address] [place] [address] Care Team Providers Care Associate Professor Of Literature Name Role Phone Geena Lee MD Primary Care Provider + Encounter Details Date Type Department Care Team (Late st Contact Info) Description 12/03/2024 Lab Requisition [facility] - Main Lab [address] [place] [address] Geena Lee MD [address] [phone] Hypo-osmolality and hyponatremia Social History Tobacco Use [...] LAB CHEMISTRY METHOD 12/04/2024 11:08 AM EDT [facility] Blood Venous blood specimen / Unknown Venipuncture / Unknown 12/04/2024 7:47 AM EDT 12/04/2024 9:51 AM EDT us Geena Lee MD LAB BLOOD ORDERABLES Fin al Result [facility] ([facility] [address] [place] [address], documented in this encounter Visit Diagnoses Diagnosis Hypo-osmolality and hyponatremia documented in this encounter Care Teams Associate Professor Of Literature Relationship Specialty Start Date End Date Geena Lee MD [address] [place] [phone] PCP - General Family Medicine 03/20/24 documented as of this encounter
--- OUTSIDE RECORDS SUMMARY | 2025-04-03 20:45 | XMS_ITS | Encounter Summary ---
Author Organization [facility] Address [address] [place] [address] Care Team Providers Care Forms Analyst Name Role Phone Geena Lee MD Primary Care Provider + Encounter Details Date Type Department Care Team (Late st Contact Info) Description 09/24/2024 Lab Requisition [facility] - Main Lab 299 [facility] [place] [address] Geena Lee MD [address] [address] Chronic systolic (congestive) heart failure [...] LAB CHEMISTRY METHOD 09/24/2024 11:19 AM EDT [facility] Urine Urine specimen obtained by clean catch procedure / Unknown Non-blood Collection / Unknown 09/23/2024 09/24/2024 9:02 AM EDT Geena Lee MD LAB URINE ORDERABLES Fin al Result Performing Organization Address [facility]/ZIP Co de Phone Number [facility] [address] [place] [address], [place] [phone] * Osmolality, urine (09/23/2024 12:00 AM EDT) Osmolality, Urine 488 300 - 1,300 mOsm/kg LAB CHEMISTRY METHOD 09/24/2024 11:41 AM EDT [facility] Urine Urine specimen obtained by clean catch procedure / Unknown Non-blood Collection / Unknown 09/23/2024 09/24/2024 9:02 AM EDT Geena Lee MD LAB URINE ORDERABLES Fin al Result [facility] [address] [place] [address], [place] [phone] documented in this encounter Visit Diagnoses Diagnosis Chronic systolic (congestive) heart failure (CMS/HCC V24, CMS/HCC V28) 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
--- OUTSIDE RECORDS SUMMARY | 2025-04-03 20:45 | XMS_ITS | Encounter Summary ---
Author Organization [facility] Address [address] [place] [address] Care Team Providers Care Motor Transport Inspector Name Role Phone Geena Lee MD Primary Care Provider + Encounter Details Date Type Department Care Team (Late st Contact Info) Description 02/14/2025 Lab Requisition [facility] - Main Lab [address] [place] [address] Geena Lee MD [address] [phone] Essential (primary) hypertension Social History Tobacco Use [...] Associated Diagnosis Comments COMPLETE BLOOD COUNT Routine 02/17/2025 9:19 AM EDT Essential (primary) hypertension COMPREHENSIVE METABOLIC PANEL Routine 02/17/2025 9:19 AM EDT Essential (primary) hypertension documented in this encounter Results * (ABNORMAL) Complete blood count (02/17/2025 9:19 AM EDT) [facility] Signature WBC 5.0 4.8 - 10.8 K/[facility] LAB HEMETOLOGY METHOD 02/17/2025 11:42 AM EDT [facility] RBC 4.10(L) 4.50 - 5.50 M/mcL LAB HEMETOLOGY METHOD 02/17/2025 11:42 AM [facility] LAB Hemoglobin 12.5(L) 13.5 - 17.5 g/dL LAB HEMETOLOGY METHOD 02/17/2025 11:42 AM [facility] LAB Hematocrit 39.4(L) 42.0 - 54.0 % LAB HEMETOLOGY METHOD 02/17/2025 11:42 AM [facility] LAB MCV 95.9 79.0 - 98.0 FL LAB HEMETOLOGY METHOD 02/17/2025 11:42 AM [facility] LAB MCH 30.4 27.0 - 32.0 pcg LAB HEMETOLOGY METHOD 02/17/2025 11:42 AM [facility] LAB MCHC 31.7(L) 32.0 - 37.0 g/dL LAB HEMETOLOGY METHOD 02/17/2025 11:42 AM [facility] LAB RDW 16.1(H) 11.0 - 15.0 % LAB HEMETOLOGY METHOD 02/17/2025 11:42 AM [facility] LAB Platelets 179 130 - 400 K/mcL LAB HEMETOLOGY METHOD 02/17/2025 11:42 AM [facility] LAB MPV 8.9 7.0 - 11.0 FL LAB HEMETOLOGY METHOD 02/17/2025 11:42 AM [facility] LAB NRBC 0.0 <1.0 % LAB HEMETOLOGY METHOD 02/17/2025 11:42 AM [facility] LAB NRBC Absolute 0.00 <0.10 K/mcL LAB HEMETOLOGY METHOD 02/17/2025 11:42 AM [facility] LAB Blood Venous blood specimen / Unknown Venipuncture / Unknown 02/17/2025 9:19 AM EDT 02/17/2025 10:49 AM EDT us Geena Lee MD LAB BLOOD ORDERABLES Fin al Result [facility] [address] [place] [address], [place] [phone] * (ABNORMAL) Comprehensive metabolic panel (02/17/2025 9:19 AM EDT) Sodium 131(L) 133 - 145 mmol/L LAB CHEMISTRY METHOD 02/17/2025 12:59 PM [facility] Potassium 3.8 3.5 - 5.5 mmol/L LAB CHEMISTRY METHOD 02/17/2025 12:59 PM [facility] Chloride 97 96 - 110 mmol/L LAB CHEMISTRY METHOD 02/17/2025 12:59 PM [facility] CO2 25 21 - 32 mmol/L LAB CHEMISTRY METHOD 02/17/2025 12:59 PM [facility] LAB Anion Gap 9 3 - 11 LAB CHEMISTRY METHOD 02/17/2025 12:59 PM [facility] LAB Glucose 67(L) 70 - 100 mg/dL LAB CHEMISTRY METHOD 02/17/2025 12:59 PM [facility] BUN 8 5 - 25 mg/dL LAB CHEMISTRY METHOD 02/17/2025 12:59 PM [facility] LAB Creatinine 0.57(L) 0.70 - 1.30 mg/dL LAB CHEMISTRY METHOD 02/17/2025 12:59 PM [facility] LAB eGFR 106 >=60 mL/min/1. 73m2 LAB CHEMISTRY METHOD 02/17/2025 12:59 PM [facility] LAB Comment:Calculation based on the Chronic Kidney Disease Epidemiology Collaboration (CKD-EPI) equation refit without adjustment for race. BUN/Creatinine Ratio 14.0 LAB CHEMISTRY METHOD 02/17/2025 12:59 PM [facility] LAB Calcium 8.4(L) 8.5 - 10.5 mg/dL LAB CHEMISTRY METHOD 02/17/2025 12:59 PM [facility] LAB AST (SGOT) 23 10 - 42 unit/L LAB CHEMISTRY METHOD 02/17/2025 12:59 PM [facility] LAB ALT (SGPT) 14 10 - 60 unit/L LAB CHEMISTRY METHOD 02/17/2025 12:59 PM [facility] LAB Alkaline Phosphatase 90 42 - 121 unit/L LAB CHEMISTRY METHOD 02/17/2025 12:59 PM [facility] LAB Total Protein 6.5 6.0 - 8.0 g/dL LAB CHEMISTRY METHOD 02/17/2025 12:59 PM [facility] LAB Albumin 2.7(L) 3.2 - 5.0 g/dL LAB CHEMISTRY METHOD 02/17/2025 12:59 PM [facility] Total Bilirubin 0.4 0.0 - 1.4 mg/dL LAB CHEMISTRY METHOD 02/17/2025 12:59 PM [facility] LAB Blood Venous blood specimen / Unknown Venipuncture / Unknown 02/17/2025 9:19 AM EDT 02/17/2025 10:49 AM EDT us Geena Lee MD LAB BLOOD ORDERABLES Fin al Result [facility] [address] [place] [address], documented in this encounter Visit Diagnoses Diagnosis Essential (primary) hypertension Unspecified essential hypertension documented in this encounter Care Teams Motor Transport Inspector Relationship Specialty Start Date End Date Geena Lee MD [address] [address] PCP - General Family Medicine 03/20/24 documented as of this encounter
--- OUTSIDE RECORDS SUMMARY | 2025-04-03 20:45 | XMS_ITS | Encounter Summary ---
Author Organization [facility] Address [address] [place] [address] Care Team Providers Care Building Tech Name Role Phone Geena Lee MD Primary Care Provider + Encounter Details Date Type Department Care Team (Late st Contact Info) Description 02/14/2025 Lab Requisition [facility] - Main Lab 299 [facility] [place] [address] Geena Lee MD [address] [address] Essential (primary) hypertension; Chronic kidney disease, unspecified; Hypo-osmolality and hyponatremia; Hyperlipidemia, unspecified; Unspecified convulsions (CMS/HCC V24, CMS/HCC V28) Social History Tobacco [...] Associated Diagnosis Comments COMPLETE BLOOD COUNT Routine 02/14/2025 6:37 AM EDT Essential (primary) hypertension Chronic kidney disease, unspecified Hypo-osmolality and hyponatremia Hyperlipidemia, unspecified Unspecified convulsions (CMS/HCC V24, CMS/HCC V28) SODIUM Routine 02/14/2025 6:37 AM EDT Essential (primary) hypertension Chronic kidney disease, unspecified Hypo-osmolality and hyponatremia Hyperlipidemia, unspecified Unspecified convulsions (CMS/HCC V24, CMS/HCC V28) AMMONIA Routine 02/14/2025 6:37 AM EDT Essential (primary) hypertension Chronic kidney disease, unspecified Hypo-osmolality and hyponatremia Hyperlipidemia, unspecified Unspecified convulsions (CMS/HCC V24, CMS/HCC V28) VALPROIC ACID LEVEL, TOTAL Routine 02/14/2025 6:37 AM EDT Essential (primary) hypertension Chronic kidney disease, unspecified Hypo-osmolality and hyponatremia Hyperlipidemia, unspecified Unspecified convulsions (CMS/HCC V24, CMS/HCC V28) COMPREHENSIVE METABOLIC PANEL Routine 02/14/2025 6:37 AM EDT Essential (primary) hypertension Chronic kidney disease, unspecified Hypo-osmolality and hyponatremia Hyperlipidemia, unspecified Unspecified convulsions (CMS/HCC V24, CMS/HCC V28) documented in this encounter Results * (ABNORMAL) Ammonia (02/14/2025 6:37 AM EDT) Ammonia 54(H) 11 - 35 mcmol/L LAB CHEMISTRY METHOD 02/14/2025 8:40 AM EDT [facility] LAB Blood Venous blood specimen / Unknown Venipuncture / Unknown 02/14/2025 6:37 AM EDT 02/14/2025 8:16 AM EDT us Geena Lee MD LAB BLOOD ORDERABLES Fin al Result [facility] [address] [place] [address], [place] [phone] * Valproic acid level, total (02/14/2025 6:37 AM EDT) Valproic Acid, Total 55 50 - 100 mcg/mL LAB CHEMISTRY METHOD 02/14/2025 9:23 AM EDT [facility] Blood Venous blood specimen / Unknown Venipuncture / Unknown 02/14/2025 6:37 AM EDT 02/14/2025 8:16 AM EDT Geena Lee MD LAB BLOOD ORDERABLES Fin al Result Performing Organization Address [facility]/ZIP Co de Phone Number [facility] [address] [place] [address], [place] [phone] * (ABNORMAL) Sodium (02/14/2025 6:37 AM EDT) Sodium 128(L) 133 - 145 mmol/L LAB CHEMISTRY METHOD 02/14/2025 9:23 AM EDT [facility] Blood Venous blood specimen / Unknown Venipuncture / Unknown 02/14/2025 6:37 AM EDT 02/14/2025 8:16 AM EDT Geena Lee MD LAB BLOOD ORDERABLES Fin al Result Performing Organization Address [facility]/ZIP Co de Phone Number [facility] [address] [place] [address], [place] [phone] * (ABNORMAL) Comprehensive metabolic panel (02/14/2025 6:37 AM EDT) Sodium 128(L) 133 - 145 mmol/L LAB CHEMISTRY METHOD 02/14/2025 9:24 AM EDT [facility] Potassium 4.1 3.5 - 5.5 mmol/L LAB CHEMISTRY METHOD 02/14/2025 9:24 AM EDT [facility] Chloride 93(L) 96 - 110 mmol/L LAB CHEMISTRY METHOD 02/14/2025 9:24 AM EDT [facility] CO2 26 21 - 32 mmol/L LAB CHEMISTRY METHOD 02/14/2025 9:24 AM EDT [facility] Anion Gap 9 3 - 11 LAB CHEMISTRY METHOD 02/14/2025 9:24 AM EDT [facility] Glucose 74 70 - 100 mg/dL LAB CHEMISTRY METHOD 02/14/2025 9:24 AM [facility] BUN 7 5 - 25 mg/dL LAB CHEMISTRY METHOD 02/14/2025 9:24 AM [facility] Creatinine 0.27(L) 0.70 - 1.30 mg/dL LAB CHEMISTRY METHOD 02/14/2025 9:24 AM [facility] LAB eGFR 133 >=60 mL/min/1. 73m2 LAB CHEMISTRY METHOD 02/14/2025 9:24 AM [facility] LAB Comment:Calculation based on the Chronic Kidney Disease Epidemiology Collaboration (CKD-EPI) equation refit without adjustment for race. BUN/Creatinine Ratio 25.9 LAB CHEMISTRY METHOD 02/14/2025 9:24 AM [facility] Calcium 8.4(L) 8.5 - 10.5 mg/dL LAB CHEMISTRY METHOD 02/14/2025 9:24 AM [facility] AST (SGOT) 19 10 - 42 unit/L LAB CHEMISTRY METHOD 02/14/2025 9:24 AM [facility] ALT (SGPT) 14 10 - 60 unit/L LAB CHEMISTRY METHOD 02/14/2025 9:24 AM [facility] Alkaline Phosphatase 82 42 - 121 unit/L LAB CHEMISTRY METHOD 02/14/2025 9:24 AM [facility] Total Protein 6.2 6.0 - 8.0 g/dL LAB CHEMISTRY METHOD 02/14/2025 9:24 AM [facility] Albumin 2.5(L) 3.2 - 5.0 g/dL LAB CHEMISTRY METHOD 02/14/2025 9:24 AM [facility] Total Bilirubin 0.6 0.0 - 1.4 mg/dL LAB CHEMISTRY METHOD 02/14/2025 9:24 AM [facility] Blood Venous blood specimen / Unknown Venipuncture / Unknown 02/14/2025 6:37 AM EDT 02/14/2025 8:16 AM EDT us Geena Lee MD LAB BLOOD ORDERABLES Fin al Result [facility] [address] [place] [address], * (ABNORMAL) Complete blood count (02/14/2025 6:37 AM EDT) [facility] WBC 4.8 4.8 - 10.8 K/mcL LAB HEMETOLOGY METHOD 02/14/2025 8:36 AM EDT [facility] RBC 3.70(L) 4.50 - 5.50 M/mcL LAB HEMETOLOGY METHOD 02/14/2025 8:36 AM EDT [facility] Hemoglobin 11.0(L) 13.5 - 17.5 g/dL LAB HEMETOLOGY METHOD 02/14/2025 8:36 AM EDT [facility] Hematocrit 31.9(L) 42.0 - 54.0 % LAB HEMETOLOGY METHOD 02/14/2025 8:36 AM EDT [facility] MCV 86.9 79.0 - 98.0 FL LAB HEMETOLOGY METHOD 02/14/2025 8:36 AM EDT [facility] MCH 30.0 27.0 - 32.0 pcg LAB HEMETOLOGY METHOD 02/14/2025 8:36 AM EDT [facility] MCHC 34.5 32.0 - 37.0 g/dL LAB HEMETOLOGY METHOD 02/14/2025 8:36 AM EDT [facility] RDW 16.5(H) 11.0 - 15.0 % LAB [facility]EM[facility]OLOGY [facility]14[facility]25 [facility] 201 130 - 400 K/mcL LAB HEMETOLOGY METHOD 02/14/2025 8:36 AM EDT [facility] MPV 8.8 7.0 - 11.0 FL LAB HEMETOLOGY METHOD 02/14/2025 8:36 AM EDT [facility] NRBC 0.0 <1.0 % LAB HEMETOLOGY METHOD 02/14/2025 8:36 AM EDT [facility] NRBC Absolute 0.00 <0.10 K/mcL LAB HEMETOLOGY METHOD 02/14/2025 8:36 AM EDT [facility] Blood Venous blood specimen / Unknown Venipuncture / Unknown 02/14/2025 6:37 AM EDT 02/14/2025 8:16 AM EDT us Geena Lee MD LAB BLOOD ORDERABLES Fin al Result [facility] [address] [place] [address], documented in this encounter Visit Diagnoses Diagnosis Essential (primary) hypertension Unspecified essential hypertension Chronic kidney disease, unspecified Hypo-osmolality and hyponatremia Hyperlipidemia, unspecified Unspecified convulsions (CMS/HCC V24, CMS/HCC V28) documented in this encounter Care Teams Building Tech Relationship Specialty Start Date End Date Geena Lee MD [address] [place] [address] PCP - General Family Medicine 03/20/24 documented as of this encounter
--- OUTSIDE RECORDS SUMMARY | 2025-04-03 20:45 | XMS_ITS | Encounter Summary ---
Author Organization [facility] Address [address] [place] [address] Care Team Providers Care Marketing Intelligence Manager Name Role Phone Geena Lee MD Primary Care Provider + Encounter Details Date Type Department Care Team (Late st Contact Info) Description 09/22/2024 Lab Requisition [facility] - Main Lab [address] [place] [address] Geena Lee MD [address] [id number] Essential (primary) hypertension Social History Tobacco Use [...] LAB CHEMISTRY METHOD 09/23/2024 11:49 AM EDT [facility] ([facility]) [facility] Potassium 4.0 3.5 - 5.5 mmol/L LAB CHEMISTRY METHOD 09/23/2024 11:49 AM [facility] Chloride 93(L) 96 - 110 mmol/L LAB CHEMISTRY METHOD 09/23/2024 11:49 AM [facility] CO2 27 21 - 32 mmol/L LAB CHEMISTRY METHOD 09/23/2024 11:49 AM [facility] Anion Gap 7 3 - 11 LAB CHEMISTRY METHOD 09/23/2024 11:49 AM [facility] Glucose 75 70 - 100 mg/dL LAB CHEMISTRY METHOD 09/23/2024 11:49 AM [facility] BUN 8 5 - 25 mg/dL LAB CHEMISTRY METHOD 09/23/2024 11:49 AM [facility] Creatinine 0.58(L) 0.70 - 1.30 mg/dL LAB CHEMISTRY METHOD 09/23/2024 11:49 AM [facility] LAB eGFR 106 >=60 mL/min/1. 73m2 LAB CHEMISTRY METHOD 09/23/2024 11:49 AM [facility] Comment:Calculation based on the Chronic Kidney Disease Epidemiology Collaboration (CKD-EPI) equation refit without adjustment for race. BUN/Creatinine Ratio 13.8 LAB CHEMISTRY METHOD 09/23/2024 11:49 AM [facility] Calcium 8.5 8.5 - 10.5 mg/dL LAB CHEMISTRY METHOD 09/23/2024 11:49 AM [facility] AST (SGOT) 16 10 - 42 unit/L LAB CHEMISTRY METHOD 09/23/2024 11:49 AM [facility] ALT (SGPT) 14 10 - 60 unit/L LAB CHEMISTRY METHOD 09/23/2024 11:49 AM [facility] Alkaline Phosphatase 79 42 - 121 unit/L LAB CHEMISTRY METHOD 09/23/2024 11:49 AM [facility] Total Protein 6.3 6.0 - 8.0 g/dL LAB CHEMISTRY METHOD 09/23/2024 11:[address] [facility] Albumin 2.9(L) 3.2 - 5.0 g/dL LAB CHEMISTRY METHOD 09/23/2024 11:[address] [facility] Total Bilirubin 0.5 0.0 - 1.4 mg/dL LAB CHEMISTRY METHOD 09/23/2024 11:[address] [facility] Blood Venous blood specimen / Unknown Venipuncture / Unknown 09/23/2024 7:33 AM EDT 09/23/2024 10:26 AM EDT us Geena Lee MD LAB BLOOD ORDERABLES Fin al Result [facility] [address] [place] [address], * (ABNORMAL) Complete blood count (09/23/2024 7:33 AM EDT) WBC 7.8 4.8 - 10.8 K/mcL LAB HEMETOLOGY METHOD 09/23/2024 11:29 AM [facility] RBC 2.30(L) 4.50 - 5.50 M/mcL LAB HEMETOLOGY METHOD 09/23/2024 11:29 AM [facility] Hemoglobin 7.5(L) 13.5 - 17.5 g/dL LAB HEMETOLOGY METHOD 09/23/2024 11:29 AM [facility] Hematocrit 22.9(L) 42.0 - 54.0 % LAB HEMETOLOGY METHOD 09/23/2024 11:29 AM [facility] MCV 100.0(H) 79.0 - 98.0 FL LAB HEMETOLOGY METHOD 09/23/2024 11:29 AM [facility] MCH 32.8(H) 27.0 - 32.0 pcg LAB HEMETOLOGY METHOD 09/23/2024 11:[address] [facility] MCHC 32.8 32.0 - 37.0 g/dL LAB HEMETOLOGY METHOD 09/23/2024 11:[address] [facility] RDW 16.7(H) 11.0 - 15.0 % LAB HEMETOLOGY METHOD 09/23/2024 11:[address] [facility] Platelets 215 130 - 400 K/mcL LAB HEMETOLOGY METHOD 09/23/2024 11:[address] [facility] MPV 9.0 7.0 - 11.0 FL LAB HEMETOLOGY METHOD 09/23/2024 11:[address] [facility] NRBC 0.0 <1.0 % LAB HEMETOLOGY METHOD 09/23/2024 11:[address] [facility] NRBC Absolute 0.00 <0.10 K/mcL LAB HEMETOLOGY METHOD 09/23/2024 11:[address] [facility] Blood Venous blood specimen / Unknown Venipuncture / Unknown 09/23/2024 7:33 AM EDT 09/23/2024 10:22 AM EDT us Geena Lee MD LAB BLOOD ORDERABLES Fin al Result [facility] [address] [place] [address], documented in this encounter Visit Diagnoses Diagnosis Essential (primary) hypertension Unspecified essential hypertension documented in this encounter Care Teams Marketing Intelligence Manager Relationship Specialty Start Date End Date Geena Lee MD [address] [phone] PCP - General Family Medicine 03/20/24 documented as of this encounter
--- OUTSIDE RECORDS SUMMARY | 2025-04-03 20:45 | XMS_ITS | Encounter Summary ---
Author Organization [facility] Address [address] [place] [address] Care Team Providers Care Per Diem Physical Therapist Name Role Phone Geena Lee MD Primary Care Provider + Encounter Details Date Type Department Care Team (Late st Contact Info) Description 12/20/2024 Lab Requisition [facility] - Main Lab [address] [place] [address] Geena Lee MD [address] [address] Essential (primary) hypertension Social History [...] AM EDT) WBC 4.6(L) 4.8 - 10.8 K/[facility] LAB HEMETOLOGY METHOD 12/24/2024 3:01 PM EDT [facility] LAB RBC 5.30 4.50 - 5.50 M/[facility] LAB HEMETOLOGY METHOD 12/24/2024 3:01 PM EDT [facility] LAB Hemoglobin 15.6 13.5 - 17.5 g/dL LAB HEMETOLOGY METHOD [facility] Hematocrit 44.4 42.0 - 54.0 % LAB HEMETOLOGY METHOD 12/24/2024 3:01 PM [facility] MCV 83.6 79.0 - 98.0 FL LAB HEMETOLOGY METHOD 12/24[facility]24 [facility] MCH 29.4 27.0 - 32.0 pcg LAB HEMETOLOGY METHOD 12/24/2024 3:01 PM [facility] MCHC 35.1 32.0 - 37.0 g/dL LAB HEMETOLOGY METHOD 12/24/2024 3:01 PM [facility] RDW 15.7(H) 11.0 - 15.0 % LAB HEMETOLOGY METHOD 12/24/2024 3:01 PM [facility] Platelets 50(L) 130 - 400 K/mcL LAB HEMETOLOGY METHOD 12/24/2024 3:01 PM [facility] Comment:reviewed by slide [facility] LAB HEMETOLOGY METHOD 12/24/2024 3:01 PM [facility] LAB Comment:Not Measured NRBC 0.0 <1.0 % LAB HEMETOLOGY METHOD 12/24/2024 3:01 PM [facility] NRBC Absolute 0.00 <0.10 K/mcL LAB HEMETOLOGY METHOD 12/24/2024 3:01 PM [facility] Blood Venous blood specimen / Unknown Venipuncture / Unknown 12/24/2024 10:14 AM EDT 12/24/2024 12:32 PM EDT us Geena Lee MD LAB BLOOD ORDERABLES Fin al Result [facility] ([facility] [address] [place] [address], documented in this encounter Visit Diagnoses Diagnosis Essential (primary) hypertension Unspecified essential hypertension documented in this encounter Care Teams Per Diem Physical Therapist Relationship Specialty Start Date End Date Geena Lee MD [address] [place] [id number] PCP - General Family Medicine 03/20/24 documented as of this encounter
--- OUTSIDE RECORDS SUMMARY | 2025-04-03 20:46 | XMS_ITS | Clinical Summary ---
Author Organization [address] [facility] Address [address] [place] [address] Phone Care Team Providers Care Wolf Hunter Name Role Phone Geena Lee MD Primary Care Provider + Encounters Date Type Department Care Team Description 03/22/2025 Lab Requisition [facility] - Main Lab [address] [place] [phone] Geena Lee MD Essential (primary) hypertension; Chronic kidney disease, unspecified 03/13/2025 Lab Requisition [facility] Main Lab [address] [place] [phone] Geena Lee MD Chronic kidney disease, unspecified; Essential (primary) hypertension 03/05/2025 Lab Requisition [facility] - Main Lab [address] [place] [address] Geena Lee MD Chronic kidney disease, unspecified; Essential (primary) hypertension 02/28/2025 Lab Requisition [facility] - Main Lab [address] [place] [address] Geena Lee MD Essential (primary) hypertension 02/26/2025 Lab Requisition [facility] - Main Lab [address] [place] [phone] Geena Lee MD Chronic kidney disease, unspecified; Essential (primary) hypertension 02/21/2025 Lab Requisition [facility] Lab [address] [place] [phone] Geena Lee MD Essential (primary) hypertension 02/19/2025 Lab Requisition [facility] - Main Lab [address] [place] [phone] Geena Lee MD Chronic kidney disease, unspecified; Essential (primary) hypertension 02/14/2025 Lab Requisition [facility] Main Lab [address] [place] [phone] Geena Lee MD Essential (primary) hypertension 02/14/2025 Lab Requisition [facility] Main Lab [address] [place] [address] Geena Lee MD Essential (primary) hypertension; Chronic kidney disease, unspecified; Hypo-osmolality and hyponatremia; Hyperlipidemia, unspecified; Unspecified convulsions (CMS/HCC V24, CMS/HCC V28) 02/12/2025 Lab Requisition [facility] Main Lab [address] [place] [phone] Geena Lee MD Chronic kidney disease, unspecified; Essential (primary) hypertension 02/10/2025 Lab Requisition [facility] Main Lab [address] [place] [phone] Geena Lee MD Essential (primary) hypertension 02/09/2025 Lab Requisition [facility] - Main Lab [address] [place] [address] Geena Lee MD Essential (primary) hypertension 02/05/2025 Lab Requisition [facility] Main Lab [address] [place] [phone] Geena Lee MD Chronic kidney disease, unspecified; Essential (primary) hypertension 02/02/2025 Lab Requisition [facility] Main Lab [address] [place] [phone] Geena Lee MD Essential (primary) hypertension 01/29/2025 Lab Requisition [facility] Main Lab [address] [place] [address] Geena Lee MD Chronic kidney disease, unspecified; Essential (primary) hypertension 01/24/2025 Lab Requisition [facility] - Main Lab [address] [place] [address] Geena Lee MD Essential (primary) hypertension 01/22/2025 Lab Requisition [facility] Main Lab [address] [place] [phone] Geena Lee MD Essential (primary) hypertension; Chronic kidney disease, unspecified 01/21/2025 Lab Requisition [facility] Lab [address] [place] [address] Geena Lee MD Essential (primary) hypertension 01/18/2025 Lab Requisition [facility] Main Lab [address] [place] [phone] Geena Lee MD Essential (primary) hypertension 01/15/2025 Lab Requisition [facility] Main Lab [address] [place] [phone] Geena Lee MD Chronic kidney disease, unspecified; Essential (primary) hypertension 01/12/2025 Lab Requisition [facility] Main Lab [address] [place] [address] Geena Lee MD Essential (primary) hypertension 01/08/2025 Lab Requisition [facility] Main Lab [address] [place] [address] Geena Lee MD Chronic kidney disease, unspecified; Essential (primary) hypertension 01/05/2025 Lab Requisition [facility] Main Lab [address] [place] [phone] Geena Lee MD Essential (primary) hypertension 01/01/2025 Lab Requisition [facility] Main Lab [address] [place] [phone] Geena Lee MD Chronic kidney disease, unspecified; Essential (primary) hypertension from Last 3 Months Medical History Medical History Date Comments COPD (chronic obstructive pu lmonary disease) ([facility] [place], [facility] V28) DX:COPD (chronic o bstructive pulmonary disease) ([facility]) Depression DX:Depression Hyponatremia DX:Hyponatremia HTN (hypertension) DX:HTN (hyper tension) Tobacco abuse DX:Tobacco abuse Stenosis of left internal carotid artery DX:Stenosis of left internal carotid artery Atrial flutter ([facility] V24, [facility] V28) DX:Atrial flutter ([facility]) Transient ischemic attack (TIA) DX:Transient ischemic attack (TIA) Pneumonia DX:Pneumonia Mood disorder ([facility] V24) DX:M ood disorder ([facility]) Cardiomyopathy ([facility] V24, [facility] V28) DX:Cardiomyopathy ([facility]) Dysphagia DX:Dysphagia Pleural effusion DX:Pleural effu chanda [...] Health Maintenance Due Date Last Done Comments Colorectal Cancer Screening: Colonoscopy 1955 Hepatitis A Vaccines (1 of 2 - Risk 2-dose series) 09/01/1974 Pneumococcal Vaccine: 50+ Years (1 of 2 - PCV) 09/01/1974 RSV Immunization Adult Patients (1 - Risk 50-74 years 1-dose series) 09/01/2005 Zoster Vaccines (1 of 2) 09/01/2005 Abdominal Aortic Aneurysm (AAA) Screen 03/23/2022 Falls Risk Assessment 03/23/2022 Hepatitis C Screening 03/23/2022 Medicare Annual Wellness Visit 03/23/2022 Social Influencers of Health Screening 03/23/2022 Cholesterol Screening (Lipid Panel) 08/21/2022 08/21/2017 Depression Screening 04/24/2024 COVID-19 Vaccine (3 - season) 2024 08/04/2020, 07/14/2020 Influenza Vaccine (#1) 2024 , 02/01/2023, 04/28/2016, Additional history exists Hypertension/CHF/CAD Annual BMP Blood Test 03/24/2026 03/24/2025, 03/13/2025, 03/03/2025, Additional history exists DTaP,Tdap,and Td Vaccines (4 [...] Associated Diagnosis Comments COMPREHENSIVE METABOLIC PANEL Routine 03/24/2025 6:57 AM EST Essential (primary) hypertension Chronic kidney disease, unspecified COMPLETE BLOOD COUNT Routine 03/24/2025 6:57 AM EST Essential (primary) hypertension Chronic kidney disease, unspecified CBC WITH AUTO DIFFERENTIAL Routine 03/13/2025 5:42 [...] disease, unspecified Essential (primary) hypertension SODIUM Routine 03/06/2025 5:40 AM EST Chronic kidney disease, unspecified Essential (primary) hypertension COMPLETE BLOOD COUNT Routine 03/03/2025 9:18 AM EST Essential (primary) hypertension COMPREHENSIVE METABOLIC PANEL Routine 03/03/2025 9:18 AM EST Essential (primary) hypertension SODIUM Routine 02/27/2025 5:24 AM EST Chronic kidney disease, unspecified Essential (primary) hypertension SODIUM Routine 02/20/2025 8:57 AM EDT Chronic kidney disease, unspecified Essential (primary) hypertension COMPLETE BLOOD COUNT Routine 02/17/2025 9:19 AM EDT Essential (primary) hypertension COMPREHENSIVE METABOLIC PANEL Routine 02/17/2025 9:19 AM EDT Essential (primary) hypertension AMMONIA Routine 02/14/2025 6:37 AM EDT Essential [...] unspecified Unspecified convulsions (CMS/HCC V24, CMS/HCC V28) COMPLETE BLOOD COUNT Routine 02/14/2025 6:37 AM EDT Essential (primary) hypertension Chronic kidney disease, unspecified Hypo-osmolality and hyponatremia Hyperlipidemia, unspecified Unspecified convulsions (CMS/HCC V24, CMS/HCC V28) SODIUM Routine 02/13/2025 7:45 AM EDT Chronic kidney disease, unspecified Essential (primary) hypertension COMPREHENSIVE METABOLIC PANEL Routine 02/11/2025 5:08 AM EDT Essential (primary) hypertension COMPLETE BLOOD COUNT Routine 02/10/2025 9:39 AM EDT Essential (primary) hypertension SODIUM Routine 02/06/2025 5:05 AM EDT Chronic kidney disease, unspecified Essential (primary) hypertension COMPLETE BLOOD COUNT Routine 02/03/2025 9:15 AM EDT Essential (primary) hypertension COMPREHENSIVE METABOLIC PANEL Routine 02/03/2025 9:15 AM EDT Essential (primary) hypertension SODIUM Routine 01/30/2025 5:20 AM EDT Chronic kidney disease, unspecified Essential (primary) hypertension COMPLETE BLOOD COUNT Routine 01/27/2025 9:42 AM EDT Essential (primary) hypertension COMPREHENSIVE METABOLIC PANEL Routine 01/27/2025 9:42 AM EDT Essential (primary) hypertension SODIUM Routine 01/23/2025 5:48 AM EDT Essential (primary) hypertension Chronic kidney disease, unspecified COMPLETE BLOOD COUNT Routine 01/22/2025 5:57 AM EDT Essential (primary) hypertension BASIC METABOLIC PANEL Routine 01/22/2025 5:57 AM EDT Essential (primary) hypertension COMPLETE BLOOD COUNT Routine 01/20/2025 8:45 AM EDT Essential (primary) hypertension COMPREHENSIVE METABOLIC PANEL Routine 01/20/2025 8:45 AM EDT Essential (primary) hypertension SODIUM Routine 01/16/2025 5:42 AM EDT Chronic kidney disease, unspecified Essential (primary) hypertension COMPLETE BLOOD COUNT Routine 01/13/2025 9:42 AM [...] Chronic kidney disease, unspecified Essential (primary) hypertension from Last 3 Months Results * (ABNORMAL) Complete blood count (03/24/2025 6:57 AM EST) Only the most recent of11 resultswithin the time period is included. WBC 4.1(L) 4.8 - 10.8 K/mcL LAB HEMETOLOGY METHOD 03/24/2025 10:10 AM [facility] LAB RBC 3.80(L) 4.50 - 5.50 M/mcL LAB HEMETOLOGY METHOD 03/24/2025 10:10 AM [facility] LAB Hemoglobin 11.7(L) 13.5 - 17.5 g/dL LAB HEMETOLOGY METHOD 03/24/2025 10:10 AM [facility] LAB Hematocrit 34.8(L) 42.0 - 54.0 % LAB HEMETOLOGY METHOD 03/24/2025 10:10 AM [facility] LAB MCV 90.6 79.0 - 98.0 FL LAB HEMETOLOGY METHOD 03/24/2025 10:10 AM [facility] LAB MCH 30.5 27.0 - 32.0 pcg LAB HEMETOLOGY METHOD 03/24/2025 10:10 AM [facility] LAB MCHC 33.6 32.0 - 37.0 g/dL LAB HEMETOLOGY METHOD 03/24/2025 10:10 AM [facility] LAB RDW 14.7 11.0 - 15.0 % LAB HEMETOLOGY METHOD 03/24/2025 10:10 AM [facility] LAB Platelets 130 130 - 400 K/mcL LAB HEMETOLOGY METHOD 03/24/2025 10:10 AM [facility] LAB MPV 9.9 7.0 - 11.0 FL LAB HEMETOLOGY METHOD 03/24/2025 10:10 AM EST [facility] LAB NRBC 0.0 <1.0 % LAB HEMETOLOGY METHOD 03/24/2025 10:10 AM EST [facility] LAB NRBC Absolute 0.00 <0.10 K/mcL LAB HEMETOLOGY METHOD 03/24/2025 10:10 AM [facility] LAB Blood Venous blood specimen / Unknown Venipuncture / Unknown 03/24/2025 6:57 AM EST 03/24/2025 9:42 AM EST us Geena Lee MD LAB BLOOD ORDERABLES Fin al Result [facility] LAB [address] [place] [address], * (ABNORMAL) Comprehensive metabolic panel (03/24/2025 6:57 AM EST) Only the most recent of10 resultswithin the time period is included. Sodium 126(L) 133 - 145 mmol/L 03/24/2025 10:46 AM [facility] LAB Potassium 4.0 3.5 - 5.5 mmol/L 03/24/2025 10:46 AM [facility] LAB Chloride 91(L) 96 - 110 mmol/L 03/24/2025 10:46 AM [facility] LAB CO2 27 21 - 32 mmol/L 03/24/2025 10:46 AM [facility] LAB Anion Gap 8 3 - 11 03/24/2025 10:46 AM [facility] LAB Glucose 61(L) 70 - 100 mg/dL 03/24/2025 10:46 AM [facility] LAB BUN 11 5 - 25 mg/dL 03/24/2025 10:46 AM [facility] LAB Creatinine 0.61(L) 0.70 - 1.30 mg/dL 03/24/2025 10:46 AM [facility] LAB eGFR 104 >=60 mL/min/1. 73m2 03/24/2025 10:46 AM [facility] LAB Comment:Calculation based on the Chronic Kidney Disease Epidemiology Collaboration (CKD-EPI) equation refit without adjustment for race. BUN/Creatinine Ratio 18.0 03/24/2025 10:46 AM [facility] LAB Calcium 8.5 8.5 - 10.5 mg/dL 03/24/2025 10:46 AM [facility] LAB AST (SGOT) 22 10 - 42 unit/L 03/24/2025 10:46 AM [facility] ALT (SGPT) 8(L) 10 - 60 unit/L 03/24/2025 10:46 AM [facility] LAB Alkaline Phosphatase 86 42 - 121 unit/L 03/24/2025 10:46 AM [facility] LAB Total Protein 6.6 6.0 - 8.0 g/dL 03/24/2025 10:46 AM [facility] LAB Albumin 3.4 3.2 - 5.0 g/dL 03/24/2025 10:46 AM [facility] LAB Total Bilirubin 0.5 0.0 - 1.4 mg/dL 03/24/2025 10:46 AM [facility] LAB Blood Venous blood specimen / Unknown Venipuncture / Unknown 03/24/2025 6:57 AM EST 03/24/2025 9:42 AM EST us Geena Lee MD LAB BLOOD ORDERABLES Fin al Result [facility] LAB [address] [place] [address], * (ABNORMAL) CBC auto differential (03/13/2025 5:42 AM EST) [facility] WBC 5.5 4.8 - 10.8 K/mcL LAB HEMETOLOGY METHOD 03/13/2025 10:39 AM [facility] LAB RBC 4.00(L) 4.50 - 5.50 M/mcL LAB HEMETOLOGY METHOD 03/13/2025 10:39 AM [facility] LAB Hemoglobin 12.4(L) 13.5 - 17.5 g/dL LAB HEMETOLOGY METHOD 03/13/2025 10:39 AM [facility] LAB Hematocrit 35.9(L) 42.0 - 54.0 % LAB HEMETOLOGY METHOD 03/13/2025 10:39 AM [facility] LAB MCV 89.1 79.0 - 98.0 FL LAB HEMETOLOGY METHOD 03/13/2025 10:39 AM [facility] LAB MCH 30.8 27.0 - 32.0 pcg LAB HEMETOLOGY METHOD 03/13/2025 10:39 AM [facility] LAB MCHC 34.5 32.0 - 37.0 g/dL LAB HEMETOLOGY METHOD 03/13/2025 10:39 AM [facility] LAB RDW 15.4(H) 11.0 - 15.0 % LAB HEMETOLOGY METHOD 03/13/2025 10:39 AM [facility] LAB Platelets 224 130 - 400 K/mcL LAB HEMETOLOGY METHOD 03/13/2025 10:39 AM [facility] LAB MPV 9.8 7.0 - 11.0 FL LAB HEMETOLOGY METHOD 03/13/2025 10:39 AM [facility] LAB NRBC 0.0 <1.0 % LAB HEMETOLOGY METHOD 03/13/2025 10:39 AM [facility] LAB NRBC Absolute 0.00 <0.10 K/mcL LAB HEMETOLOGY METHOD 03/13/2025 10:39 AM [facility] LAB Neutrophils Relative 56.5 % LAB HEMETOLOGY METHOD 03/13/2025 10:39 AM [facility] LAB Lymphocytes Relative 27.6 % LAB HEMETOLOGY METHOD 03/13/2025 10:39 AM [facility] LAB Monocytes Relative 10.0 % LAB HEMETOLOGY METHOD 03/13/2025 10:39 AM [facility] LAB Eosinophils Relative 5.1 % LAB HEMETOLOGY METHOD 03/13/2025 10:39 AM [facility] LAB Basophils Relative 0.4 % LAB HEMETOLOGY METHOD 03/13/2025 10:39 AM [facility] LAB Immature Granulocytes Relative 0.4 % LAB HEMETOLOGY METHOD 03/13/2025 10:39 AM [facility] LAB Neutrophils Absolute 3.12 1.50 - 7.00 K/mcL LAB HEMETOLOGY METHOD 03/13/2025 10:39 AM [facility] LAB Lymphocytes Absolute 1.52 1.00 - 5.00 K/mcL LAB HEMETOLOGY METHOD 03/13/2025 10:39 AM [facility] LAB Monocytes Absolute 0.55 0.20 - 1.00 K/mcL LAB HEMETOLOGY METHOD 03/13/2025 10:39 AM [facility] LAB Eosinophils Absolute 0.28 0.00 - 0.50 K/mcL LAB HEMETOLOGY METHOD 03/13/2025 10:39 AM [facility] LAB Basophils Absolute 0.02 0.00 - 0.20 K/mcL LAB HEMETOLOGY METHOD 03/13/2025 10:39 AM [facility] LAB Immature Granulocytes Absolute 0.02 0.00 - 0.03 K/mcL LAB HEMETOLOGY METHOD 03/13/2025 10:39 AM [facility] LAB Blood Venous blood specimen / Unknown Venipuncture / Unknown 03/13/2025 5:42 AM EST 03/13/2025 9:40 AM EST Geena Lee MD LAB BLOOD ORDERABLES Fin al Result Performing Organization Address [facility] Co de Phone Number [facility] [address] [place] [address], [place] [phone] * (ABNORMAL) Creatinine (03/13/2025 5:42 AM EST) Creatinine 0.60(L) 0.70 - 1.30 mg/dL 03/13/2025 11:34 AM EST [facility] eGFR 104 >=60 mL/min/1. 73m2 03/13/2025 11:34 AM EST [facility] Comment:Calculation based on the Chronic Kidney Disease Epidemiology Collaboration (CKD-EPI) equation refit without adjustment for race. Blood Venous blood specimen / Unknown Venipuncture / Unknown 03/13/2025 5:42 AM EST 03/13/2025 9:40 AM EST Geena Lee MD LAB BLOOD ORDERABLES Fin al Result Performing Organization Address [facility] Co de Phone Number [facility] [address] [place] [address], [place] [phone] * (ABNORMAL) Activated partial thromboplastin time (03/13/2025 5:42 AM EST) aPTT 40.5(H) 24.1 - 39.3 sec LAB COAGULATION METHOD 03/13/2025 10:36 AM EST [facility] Blood Venous blood specimen / Unknown Venipuncture / Unknown 03/13/2025 5:42 AM EST 03/13/2025 9:40 AM EST Geena Lee MD LAB BLOOD ORDERABLES Fin al Result [facility] [address] [place] [address], * BUN (03/13/2025 5:42 AM EST) [facility] BUN 9 5 - 25 mg/dL 03/13/2025 11:33 AM EST [facility] Blood Venous blood specimen / Unknown Venipuncture / Unknown 03/13/2025 5:42 AM EST 03/13/2025 9:40 AM EST Geena Lee MD LAB BLOOD ORDERABLES Fin al Result Performing Organization Address [facility]/ZIP Co de Phone Number [facility] [address] [place] [address], * Hemoglobin A1c (03/13/2025 5:42 AM EST) [facility] Hemoglobin A1C 4.7 <6.5 % LAB CHEMISTRY METHOD 03/13/2025 12:31 PM EST [facility] Mean Bld Glu Estim. 88 mg/dL LAB CHEMISTRY METHOD 03/13/2025 12:31 PM EST [facility] Blood Venous blood specimen / Unknown Venipuncture / Unknown 03/13/2025 5:42 AM EST 03/13/2025 9:40 AM EST Geena Lee MD LAB BLOOD ORDERABLES Fin al Result Performing Organization Address City/[facility]/ZIP Co de Phone Number [facility] [address] [place] [address], [place] [phone] * (ABNORMAL) Electrolyte panel (03/13/2025 5:42 AM EST) [facility] Sodium 127(L) 133 - 145 mmol/L 03/13/2025 11:28 AM EST [facility] Potassium 3.9 3.5 - 5.5 mmol/L 03/13/2025 11:28 AM EST [facility] Chloride 89(L) 96 - 110 mmol/L 03/13/2025 11:28 AM EST [facility] CO2 28 21 - 32 mmol/L 03/13/2025 11:28 AM EST [facility] Anion Gap 10 3 - 11 03/13/2025 11:28 AM EST [facility] Blood Venous blood specimen / Unknown Venipuncture / Unknown 03/13/2025 5:42 AM EST 03/13/2025 9:40 AM EST Geena Lee MD LAB BLOOD ORDERABLES Fin al Result Performing Organization Address [facility]/ZIP Co de Phone Number [facility] [address] [place] [address], [place] [phone] * (ABNORMAL) Sodium (03/06/2025 5:40 AM EST) Only the most recent of11 resultswithin the time period is included. Sodium 127(L) 133 - 145 mmol/L LAB CHEMISTRY METHOD 03/06/2025 11:41 AM EST [facility] Blood Venous blood specimen / Unknown Venipuncture / Unknown 03/06/2025 5:40 AM EST 03/06/2025 10:35 AM EST Geena Lee MD LAB BLOOD ORDERABLES Fin al Result Performing Organization Address City/[facility]/ZIP Co de Phone Number [facility] [address] [place] [address], [place] [phone] * (ABNORMAL) Ammonia (02/14/2025 6:37 AM EDT) Ammonia 54(H) 11 - 35 mcmol/L LAB CHEMISTRY METHOD 02/14/2025 8:40 AM EDT [facility] Blood Venous blood specimen / Unknown Venipuncture / Unknown 02/14/2025 6:37 AM EDT 02/14/2025 8:16 AM EDT Geena Lee MD LAB BLOOD ORDERABLES Fin al Result Performing Organization Address [facility]/ZIP Co de Phone Number [facility] [address] [place] [address], [place] [phone] * Valproic acid level, total (02/14/2025 6:37 AM EDT) Pathologist [facility] Valproic Acid, Total 55 50 - 100 mcg/mL LAB CHEMISTRY METHOD 02/14/2025 9:23 AM EDT [facility] Blood Venous blood specimen / Unknown Venipuncture / Unknown 02/14/2025 6:37 AM EDT 02/14/2025 8:16 AM EDT Geena Lee MD LAB BLOOD ORDERABLES Fin al Result Performing Organization Address [facility] de Phone Number [facility] [address] [place] [address], [place] [phone] * (ABNORMAL) Basic metabolic panel (01/22/2025 5:57 AM EDT) [facility] Sodium 133 133 - 145 mmol/L LAB CHEMISTRY METHOD 01/22/2025 12:38 PM EDT [facility] Potassium 5.0 3.5 - 5.5 mmol/L LAB CHEMISTRY METHOD 01/22/2025 12:38 PM EDT [facility] Chloride 101 96 - 110 mmol/L LAB CHEMISTRY METHOD 01/22/2025 12:38 PM EDT [facility] CO2 17(L) 21 - 32 mmol/L LAB CHEMISTRY METHOD 01/22/2025 12:38 PM EDT [facility] Anion Gap 15(H) 3 - 11 LAB CHEMISTRY METHOD 01/22/2025 12:38 PM EDT [facility] Glucose 40(L) 70 - 100 mg/dL LAB CHEMISTRY METHOD 01/22/2025 12:38 PM EDT [facility] BUN 16 5 - 25 mg/dL LAB CHEMISTRY METHOD 01/22/2025 12:38 PM T [facility] Creatinine 0.76 0.70 - 1.30 mg/dL LAB CHEMISTRY METHOD 01/22/2025 12:38 PM EDT [facility] eGFR 97 >=60 mL/min/1. 73m2 LAB CHEMISTRY METHOD 01/22/2025 12:38 PM EDT [facility] Comment:Calculation based on the Chronic Kidney Disease Epidemiology Collaboration (CKD-EPI) equation refit without adjustment for race. BUN/Creatinine Ratio 21.1 LAB CHEMISTRY METHOD 01/22/2025 12:38 PM [facility] Calcium 7.9(L) 8.5 - 10.5 mg/dL LAB CHEMISTRY METHOD 01/22/2025 12:38 PM EDT [facility] Blood Venous blood specimen / Unknown Venipuncture / Unknown 01/22/2025 5:57 AM EDT 01/22/2025 9:57 AM EDT us Geena Lee MD LAB BLOOD ORDERABLES Fin al Result [facility] [address] [place] [address], from Last 3 Months Insurance [facility] MEDICARE Member Subscriber Plan / Payer (Ef fective 2022-Present) Name:Alberto Levi Relation to Subscriber:Self Name:Alberto Levi Payer ID:[id number] Group ID:[id number] Type:Not on file Address: [address] [place] [address] Advance Directives Documents on File Type Date Recorded Patient Attractions Associate Expl anation Health Care Decision (hx) 12/01/2021 AD PRICE DIRECTIVE Health Care Decision (hx) 12/01/2021 AD PRICE DIRECTIVE Care Teams Wolf Hunter Relationship Specialty Start Date End Date Geena Lee MD [address] [place] [id number] PCP - General Family Medicine 03/20/24
== END 2025-04-03 14:39 | disposition home or self-care (01) ==
LOC: HO.HPS 13:33
PROVIDERS: PCP Internal Medicine; Visit Provider Internal Medicine Pulmonary Disease
DX: J44.9 Chronic obstructive pulmonary disease, unspecified (principal); Z99.81 Dependence on supplemental oxygen; Z01.811 Encounter for preprocedural respiratory examination; Z87.891 Personal history of nicotine dependence
CPT/HCPCS: 99214; G2211

== ENCOUNTER → 2025-04-03 13:33 | Outpatient (BNVA) | payer OTHER, SELFPAY | PROVIDERS: PCP Internal Medicine; Visit Provider Internal Medicine Pulmonary Disease | DX: Z01.811 Encounter for preprocedural respiratory examination (principal); J44.9 Chronic obstructive pulmonary disease, unspecified; Z99.81 Dependence on supplemental oxygen; Z87.891 Personal history of nicotine dependence; Z79.899 Other long term (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 | CPT/HCPCS: 99212 ==